=== PATIENT | female | born 1990 | race Caucasian/White ===

== ENCOUNTER 2017-08-31 04:44 | Emergency (ER) | payer BC, SELFPAY ==
[2017-08-31 04:46] VITALS: BP 154/79; PULSE 113; RESP 16; TEMP 36.8; O2SAT 97; BMI 19.1
[2017-08-31] MEDS: Ketorolac 30 MG/ML Syringe IV (05:18)
[2017-08-31] MEDS: 0.9% Normal Saline 1,000 ML 999 ML IV (05:20)
[2017-08-31] MEDS: DiphenhydrAMINE 50 MG/ML Syringe IV (05:21)
--- NOTE | 2017-08-31 06:13 | ED.VISSUMM ---
- ER Visit Summary Date of Service: 08/31/17 Chief Complaint: [] Presents with a headache History of Present Illness: The patient is a 27 F dense with a migraine headache for the last 3 weeks. Gradual onset continuous. She says similar prior migraines. Is in the frontal left parietal region. Occasionally associated with vomiting. She has photophobia and phonophobia. She saw her neurologist 2 days ago that put her on a prednisone taper. She takes an oral triptan. She is on ibuprofen Tylenol Phenergan and Zofran. She also takes Topamax verapamil and magnesium. She had a normal CT of her head at the end of July 2 weeks ago. Her last MRI was in January 2017 and was normal. Physical Examination: Vital signs reviewed General: Well-nourished well-developed Head: Normocephalic atraumatic Eyes: Pupils equal round and reactive to light extraocular movements intact ENT: TMs clear no hemotympanum no trauma Neck: Nontender full range of motion Cardiovascular: Regular rate rhythm no murmurs normal S1-S2 Respiratory: No distress clear to auscultation bilaterally chest nontender Abdomen: Soft nontender nondistended normal bowel sounds no masses Back: Nontender no CVA tenderness Extremities: Nontender active range of motion ?4 extremities no trauma Skin: Normal color no trauma Neuro alert oriented cranial nerves II through XII intact normal strength sensation reflexes Test Results: [] Emergency Department Course and Treatment: [] Given IV fluids, Toradol, Benadryl and Phenergan. Given dose of morphine as well. At this time patient has acute on chronic migraine headache. She will continue her home treatment and follow-up as an outpatient. Significantly better after treatment Treatment Plan: [] Disposition: [] Impression: [] Migraine headache This note was generated with [email or web address].comation software. It may contain incorrect words, spelling, and punctuation that were not noted in review of the chart prior to signing ED Disposition - Plan for ED Patient: Disposition: Home or Assisted Living Chief Complaint: Headache Instructions: ED Headache Migraine Referrals: Carrie Stern [Primary Care Provider] -
[2017-08-31 07:11] VITALS: BP 155/90; PULSE 86; RESP 20; O2SAT 96
--- NOTE | 2017-08-31 07:13 | ED.RN ---
PT VOICED THAT SHE WAS NOT PLEASED WITH HER CARE AND FELT THAT SHE DID NOT GET THE TREATMENT SHE WANTED.PT STATED THAT SHE HAD WANTED THE DOCTOR TO SEND HER HOME WITH MEDICATIONS AND HE WOULD NOT.PT FEELS SHE WILL BE BACK TO ANOTHER EMERGENCY ROOM BECAUSE HER NEUROLOGIST WILL SEND HER THERE AND NOT ORDER ANY MED FOR HER.PT RE-ITERATED THAT SHE WANTS TO TALK TO SOMEONE ABOUT HER CARE.JOSEY ESQUIVEL CHARGE NURSE WENT IN TO SPEAK TO HER.
--- NOTE | 2017-08-31 07:30 | ED.RN ---
pt upset because the dr wouldnt give her anything to go home with for pain. pt is sitting in the chair talking and texting on her phone. 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 pt was offered more phenergan if she was out at home. pt refused and said that phenergan is for nausea not migraines and the dr is a dumbass. pt has oxyir and phenergan at home
== END 2017-08-31 07:35 | disposition home or self-care (01) ==
PROVIDERS: Emergency Provider Emergency Medicine; Family Provider Family Medicine; PCP Family Medicine
DX: G43.909 Migraine, unspecified, not intractable, without status migrainosus (principal); Z79.899 Other long term (current) drug therapy; Z79.891 Long term (current) use of opiate analgesic
CPT/HCPCS: 96361; 96374; 96375; 99285; J7030; A4216

== ENCOUNTER 2017-12-31 17:22 | Emergency (ER) | payer BC, SELFPAY ==
[2017-12-31 17:23] VITALS: BP 132/82; PULSE 120; RESP 18; TEMP 36.9; O2SAT 95; BMI 44.9
--- NOTE | 2017-12-31 18:23 | ED.DCSUM_ITS ---
- ER Visit Summary Date of Service: 12/31/17 Chief Complaint: Headache History of Present Illness: The patient is a 27 F presenting with migraine headache ?10 days. This is similar to her previous migraine headaches. She is on preventative medicine per her neurologist as well as dihydroergotamine, Phenergan, Zanaflex. She states she is limited on the dihydroergotamine per week. She has reached her limit and is now taking aspirin and Tylenol. She has nausea and vomiting. She has photophobia. No recent injury. Denies fever or neck pain. Denies other complaints. Physical Examination: Vitals are stable. Patient is afebrile. Alert no acute distress. HEENT exam is unremarkable. Neck is supple. No meningismus Lungs are clear and equal bilaterally. Heart is regular rate and rhythm. Abdomen is soft nontender nondistended. Extremities are unremarkable. Skin is warm and dry. No focal neurologic deficit. Remainder of exam is unremarkable. Emergency Department Course and Treatment: Patient is given Toradol, Compazine, Benadryl. She had some improvement but continues to complain of pain. She is given morphine, Phenergan with improvement. She is resting comfortably in the emergency department. She will follow-up with her neurologist. She is advised to return to ED for worsening complaints. Disposition: Discharge home Impression: Migraine headache This note was generated with [employer] dictation software. It may contain incorrect words, spelling, and punctuation that were not noted in review of the chart prior to signing ED Disposition - Plan for ED Patient: Chief Complaint: Headache Referrals: [facility] Doctor,Out of [Primary Care Provider] -
[2017-12-31] MEDS: 0.9% Normal Saline 1,000 ML 999 ML IV (18:49)
[2017-12-31] MEDS: Ketorolac 30 MG/ML Syringe IV (18:49)
[2017-12-31] MEDS: proCHLORPERazine 10 MG/2 ML Vial IV (18:49)
[2017-12-31] MEDS: DiphenhydrAMINE 50 MG/ML Syringe IV (18:49)
[2017-12-31] MEDS: proMETHazine 25 MG/ML Syringe 6.25 MG IV (20:14)
[2017-12-31] MEDS: Morphine 4 MG/ML Syringe 8 MG IV (20:15)
[2017-12-31 20:20] VITALS: BP 119/61; PULSE 93; RESP 16; O2SAT 95
--- NOTE | 2017-12-31 20:37 | ED.DEP ---
ED Disposition - Plan for ED Patient: Chief Complaint: Headache Instructions: ED Headache Migraine Referrals: [facility],Out of [Primary Care Provider] -
--- NOTE | 2017-12-31 20:41 | NURSING ---
PORT FLUSHED WITH HEPARIN AND SALINE. PORT NOT HARD TO FLUSH, PT HAS PICKING HER UP TO TAKE HER HOME.
[2017-12-31 20:42] VITALS: BP 102/67; PULSE 93; RESP 14; O2SAT 95
== END 2017-12-31 20:51 | disposition home or self-care (01) ==
LOC: ED 18:17
PROVIDERS: Emergency Provider Emergency Medicine
DX: G43.909 Migraine, unspecified, not intractable, without status migrainosus (principal); E28.2 Polycystic ovarian syndrome; Z79.899 Other long term (current) drug therapy
CPT/HCPCS: 96361; 96374; 96375; 99282; J7030; A4216

== ENCOUNTER 2018-03-18 09:05 | Emergency (ER) | payer BC, SELFPAY ==
[2018-03-18 09:05] VITALS: BP 142/76; PULSE 98; RESP 18; TEMP 36.2; O2SAT 97; BMI 43.4
--- NOTE | 2018-03-18 09:45 | ED.VISSUMM ---
- ER Visit Summary Date of Service: 03/18/18 Chief Complaint: Cephalgia History of Present Illness: The patient is a 28 F presents with gradual onset of cephalgia that started 3 days ago, no fever or chills she has photophobia. This is similar to her chronic migraines for which she is on DHE. Her DHE did not work, she took Percocet at home and also did not work. She has no vision changes no fever chills no neck pain or stiffness. She is no other symptoms that are different from her chronic recurrent migraines. Physical Examination: Me she appears in mild distress. She is quite conversive. Moist mucous membranes, no obvious facial deformity No C-spine tenderness supple neck. Regular rate and rhythm without any obvious murmurs Clear lungs bilaterally speaking in full sentences without any obvious respiratory distress Abdomen soft and nontender no guarding or rebound Moves all extremities without any difficulty or pain. Skin does not show any obvious rashes or lesions, no trauma. Alert oriented ?3 with no gross focal deficit. She is able to ambulate. Moves her eyes in all actions without any pain. Emergency Department Course and Treatment: Patient was treated with multiple medications however eventually she improved she is ready for discharge. This is gradual onset chronic and recurrent with no new symptoms no imaging is needed. Impression: Cephalgia This note was generated with [employer] dictation software. It may contain incorrect words, spelling, and punctuation that were not noted in review of the chart prior to signing ED Disposition - Plan for ED Patient: Disposition: Home or Assisted Living Chief Complaint: Headache Instructions: ED Cephalgia Unspecified Referrals: Care Physician,No Primary [Primary Care Provider] - 3-5 Days
[2018-03-18] MEDS: Metoclopramide 10 MG/2 ML Vial IV (10:13)
[2018-03-18] MEDS: DiphenhydrAMINE 50 MG/ML Syringe IV (10:13)
[2018-03-18] MEDS: 0.9% Normal Saline 1,000 ML 999 ML IV (10:13)
[2018-03-18] MEDS: Ketorolac 30 MG/ML Syringe IV (10:13)
[2018-03-18] MEDS: Orphenadrine 60 MG/2 ML Ampul IV (11:29)
[2018-03-18 11:55] VITALS: BP 118/84; PULSE 68; RESP 15; O2SAT 99
[2018-03-18 14:04] VITALS: BP 131/84; PULSE 665; RESP 16; O2SAT 98
== END 2018-03-18 14:05 | disposition home or self-care (01) ==
PROVIDERS: Emergency Provider Emergency Medicine
DX: R51 Headache (principal); E28.2 Polycystic ovarian syndrome; Z86.711 Personal history of pulmonary embolism; Z79.02 Long term (current) use of antithrombotics/antiplatelets; Z79.891 Long term (current) use of opiate analgesic; Z79.899 Other long term (current) drug therapy
CPT/HCPCS: 96361; 96374; 96375; 99282; J7030; A4216

== ENCOUNTER 2018-03-23 11:01 | Emergency (ER) | payer BC, SELFPAY ==
[2018-03-23 11:03] VITALS: BP 131/87; PULSE 105; RESP 16; TEMP 36.9; O2SAT 98; BMI 43.4
--- NOTE | 2018-03-23 11:37 | ED.VISSUMM ---
- ER Visit Summary Date of Service: 03/23/18 Chief Complaint: [] Acute recurrent migraine headache history of same for years History of Present Illness: The patient is a 28 F [] long history of migraine headache she has been sick currently seen and managed by the [facility] neurologists, she is on DHE and home Percocet. She reports she used her DHE maximized her daily dose then began taking Percocet had no improvement her headache and she came into the emergency department. She was seen a few days ago in the emergency department for the same treated with IV medicines and discharged home. She indicates she believes she receives Benadryl Compazine and Toradol and ketamine. She indicates her home regimen has been refractory and generally ineffective, her neurologist at [facility] aware of the above and they are trying to get her placed on a new medication and they are waiting approval. She had extensive prior evaluation for these headaches including multiple brain imaging scans including MRIs at one point time she was told she might have MS that workup is still in place she has not yet had a lumbar puncture that is pending all the MRIs she has had showed nothing acute, no history of pseudotumor brain tumor or brain aneurysm and again she has had these headaches for years. She has had no fever no cough no other constitutional issues no other exacerbating factors She assures me this is her chronic headache syndrome, and the headache that she has now really she has had on and off for weeks she reports partial improvement with a headache when she was seen in the emergency department the other day and that is not uncommon for her to only received partial relief from any type of treatment she is prescribed including those that she gets from the emergency department. Physical Examination: [] Is resting comfortably in the bed her vital signs unremarkable she has a short stature her BMI is about 45 I questioned her about something like pseudotumor she indicates again her workup is being done by the [facility] neurologists and she does not have that diagnosis, her HEENT exam is unremarkable her neck is very supple her lungs are clear the heart tones are normal abdomen soft nontender she is awake alert moving all 4 extremities there is no neurologic abnormalities her mental status is normal Test Results: [] This is a chronic relapsing condition, current symptoms are identical to what she has had in the past and no new symptoms, and she has had an extensive prior evaluation 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 She has had long history of migraine headache syndrome she has had extensive evaluation by neurology specialist at [facility], the DHE and home Percocet regimen has limited effectiveness her physicians are aware of the above and they are trying to get her on a new medicine. I have explained to her we could initiate through her port Benadryl Compazine and Toradol but that ketamine was generally not prescribed for this condition through the emergency department instead she will receive 4 mg of morphine. Further explained to her that given that she is under the care of specialist to have a full armamentarium of medications and none of these are working and they are trying to get her on some new meds and only available to them, that it is hard to further manage her pain through the emergency department and that she should anticipate receiving her chronic headache pain management from her outpatient providers, and not the emergency department based on current regulations for chronic pain management I have further explained to her that she should not expect to receive ketamine for her chronic headache condition from the emergency department and that she should discuss her outpatient headache management with her specialists to develop a plan that is effective for her, and she will follow-up with them She was quite upset that I would not prescribe the ketamine I again explained everything as above and she basically was still upset. Treatment Plan: [] Disposition: [] Home stable Impression: [] Acute recurrent chronic headache syndrome This note was generated with [employer] dictation software. It may contain incorrect words, spelling, and punctuation that were not noted in review of the chart prior to signing ED Disposition - Plan for ED Patient: Disposition: Home or Assisted Living Chief Complaint: Headache Instructions: ED Cephalgia Unspecified Referrals: NOT,DEFINED [NON-STAFF] - Additional Instructions: Follow-up with your [facility] specialists for further outpatient headache management
--- NOTE | 2018-03-23 11:43 | ED.DCSUM_ITS ---
- ER Visit Summary Date of Service: 03/23/18 Chief Complaint: [] Acute recurrent migraine headache history of same for years History of Present Illness: The patient is a 28 F [] long history of migraine headache she has been sick currently seen and managed by the [facility] neurologists, she is on DHE and home Percocet. She reports she used her DHE maximized her daily dose then began taking Percocet had no improvement her headache and she came into the emergency department. She was seen a few days ago in the emergency department for the same treated with IV medicines and discharged home. She indicates she believes she receives Benadryl Compazine and Toradol and ketamine. She indicates her home regimen has been refractory and generally ineffective, her neurologist at [facility] aware of the above and they are trying to get her placed on a new medication and they are waiting approval. She had extensive prior evaluation for these headaches including multiple brain imaging scans including MRIs at one point time she was told she might have MS that workup is still in place she has not yet had a lumbar puncture that is pending all the MRIs she has had showed nothing acute, no history of pseudotumor brain tumor or brain aneurysm and again she has had these headaches for years. She has had no fever no cough no other constitutional issues no other exacerbating factors She assures me this is her chronic headache syndrome, and the headache that she has now really she has had on and off for weeks she reports partial improvement with a headache when she was seen in the emergency department the other day and that is not uncommon for her to only received partial relief from any type of treatment she is prescribed including those that she gets from the emergency department. Physical Examination: [] Is resting comfortably in the bed her vital signs unremarkable she has a short stature her BMI is about 45 I questioned her about something like pseudotumor she indicates again her workup is being done by the [facility] neurologists and she does not have that diagnosis, her HEENT exam is unremarkable her neck is very supple her lungs are clear the heart tones are normal abdomen soft nontender she is awake alert moving all 4 extremities there is no neurologic abnormalities her mental status is normal Test Results: [] This is a chronic relapsing condition, current symptoms are identical to what she has had in the past and no new symptoms, and she has had an extensive prior evaluation 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 She has had long history of migraine headache syndrome she has had extensive evaluation by neurology specialist at [facility], the DHE and home Percocet regimen has limited effectiveness her physicians are aware of the above and they are trying to get her on a new medicine. I have explained to her we could initiate through her port Benadryl Compazine and Toradol but that ketamine was generally not prescribed for this condition through the emergency department instead she will receive 4 mg of morphine. Further explained to her that given that she is under the care of specialist to have a full armamentarium of medications and none of these are working and they are trying to get her on some new meds and only available to them, that it is hard to further manage her pain through the emergency department and that she should anticipate receiving her chronic headache pain management from her outpatient providers, and not the emergency department based on current regulations for chronic pain management I have further explained to her that she should not expect to receive ketamine for her chronic headache condition from the emergency department and that she should discuss her outpatient headache management with her specialists to develop a plan that is effective for her, and she will follow-up with them She was quite upset that I would not prescribe the ketamine I again explained everything as above and she basically was still upset. Treatment Plan: [] Disposition: [] Home stable Impression: [] Acute recurrent chronic headache syndrome This note was generated with [employer] dictation software. It may contain incorrect words, spelling, and punctuation that were not noted in review of the chart prior to signing ED Disposition - Plan for ED Patient: Disposition: Home or Assisted Living Chief Complaint: Headache Instructions: ED Cephalgia Unspecified Referrals: NOT,DEFINED [NON-STAFF] - Additional Instructions: Follow-up with your [facility] specialists for further outpatient headache management
--- NOTE | 2018-03-23 11:43 | ED.DEP ---
ED Disposition - Plan for ED Patient: Chief Complaint: Headache Instructions: ED Cephalgia Unspecified Referrals: NOT,DEFINED [Primary Care Provider] - Additional Instructions: Follow-up with your [facility] specialists for further outpatient headache management
[2018-03-23] MEDS: 0.9% Normal Saline 1,000 ML 999 ML IV (12:48)
[2018-03-23] MEDS: Ketorolac 30 MG/ML Syringe IV (12:49)
[2018-03-23] MEDS: proCHLORPERazine 10 MG/2 ML Vial IV (12:49)
[2018-03-23] MEDS: DiphenhydrAMINE 50 MG/ML Syringe IV (12:50)
--- NOTE | 2018-03-23 13:32 | ED.RN ---
THIS RN IN TO DISCHARGE PT, PT NOT IN ROOM, PORT ACCESS NEEDLE AND TEGADERM DRESSING ON BED INTACT.
--- NOTE | 2018-03-23 14:16 | ED.RN ---
PT CAME TO TRIAGE DESK STATING SHE WAS NOT HAPPY WITH VISIT. CONTACTED TIERA BROTHERS RN TO SPEAK TO PT.
== END 2018-03-23 13:34 | disposition home or self-care (01) ==
LOC: ED 12:16
PROVIDERS: Emergency Provider Emergency Medicine
DX: G43.909 Migraine, unspecified, not intractable, without status migrainosus (principal); Z79.02 Long term (current) use of antithrombotics/antiplatelets; Z79.891 Long term (current) use of opiate analgesic; Z79.899 Other long term (current) drug therapy
CPT/HCPCS: 36591; 96361; 96374; 96375; 99282; J7030; A4216

== ENCOUNTER 2018-03-24 15:01 | Emergency (ER) | payer BC, SELFPAY ==
[2018-03-24 15:01] VITALS: BP 134/25; PULSE 112; RESP 16; TEMP 36.3; O2SAT 95; BMI 46.4
[2018-03-24] MEDS: DiphenhydrAMINE 50 MG/ML Syringe IV (17:06)
[2018-03-24] MEDS: Metoclopramide 10 MG/2 ML Vial IV (17:07)
[2018-03-24] MEDS: Ketorolac 30 MG/ML Syringe IV (17:07)
--- NOTE | 2018-03-24 17:07 | ED.DCSUM_ITS ---
- ER Visit Summary Date of Service: 03/24/18 Chief Complaint: Headache History of Present Illness: The patient is a 28 F [address] goes to [facility]. She has sees a neurologist there for migraines. She reports that she has a migraine that began 7 days ago. Is gradually gotten worse. Similar to her prior headaches. It is a sharp, throbbing pain that is left forehead with radiation posteriorly. Is 10 out of 10 worsening a 10 currently. Is worsened by movement of her head. She is taking DHE, Percocet, aspirin, and Phenergan without relief. She has been nauseated and had dry heaves. She complains of photophobia and phonophobia. She denies any recent trauma to her head. She reports that she had a CT of her head 1 week ago. Patient denies any fever or chills. No numbness or weakness. Physical Examination: Vitals: Stable. Afebrile. General: Well-nourished and well-developed. Head: Normocephalic atraumatic. Neck: Supple, no lymphadenopathy. No JVD. Nontender. Cardiovascular: Regular rate and rhythm. No murmurs. Respiratory: No respiratory distress. Clear to auscultation bilaterally. Abdominal: Soft, nontender, nondistended, normal bowel sounds. No guarding, rebound, or peritoneal signs. Back: Nontender. Extremities: Nontender, no edema. Skin: Normal color, no rash. Neurologic: Alert and oriented ?3. Cranial nerves II through XII are intact. Normal strength and sensation. Psych: Normal affect. Emergency Department Course and Treatment: Patient had an IV placed. She was given a liter of normal saline. She was given Benadryl, Reglan, Toradol, Solu- Medrol, and Depakote IV. Treatment Plan: Patient will be discharged instructions to follow-up with her neurologist in 1-2 days if not improving. Disposition: To home in improved and stable condition. Impression: 1. Migraine headache. This note was generated with [employer] software. It may contain incorrect words, spelling, and punctuation that were not noted in review of the chart prior to signing ED Disposition - Plan for ED Patient: Chief Complaint: Headache Instructions: ED Headache Migraine Referrals: Doctor,Your [STAFF PHYSICIAN] - 1-2 Days if not improving
[2018-03-24] MEDS: 0.9% Normal Saline 1,000 ML 999 ML IV (17:08)
[2018-03-24 18:13] VITALS: PULSE 110; RESP 17; O2SAT 95
== END 2018-03-24 18:14 | disposition home or self-care (01) ==
LOC: ED 16:07
PROVIDERS: Emergency Provider Emergency Medicine
DX: G43.909 Migraine, unspecified, not intractable, without status migrainosus (principal); E28.2 Polycystic ovarian syndrome; F43.10 Post-traumatic stress disorder, unspecified; Z86.711 Personal history of pulmonary embolism; Z79.02 Long term (current) use of antithrombotics/antiplatelets; Z79.891 Long term (current) use of opiate analgesic; Z79.899 Other long term (current) drug therapy
CPT/HCPCS: 96365; 96375; 99282; J7030; A4216; J2930

== ENCOUNTER 2018-05-09 13:28 | Emergency (ER) | payer BC, SELFPAY ==
[2018-05-09 13:30] VITALS: BP 134/76; PULSE 117; RESP 18; TEMP 36.6; O2SAT 97; BMI 48.0
--- NOTE | 2018-05-09 14:01 | EKG12_ITS ---
Test Reason : CP Blood Pressure : / mmHG Vent. Rate : 116 BPM Atrial Rate : 116 BPM P-R Int : 160 ms QRS Dur : 086 ms QT Int : 318 ms P-R-T Axes : 040 016 009 degrees QTc Int : 442 ms Sinus tachycardia Minimal voltage criteria for LVH, may be normal variant Borderline ECG Confirmed by LIZ ALBARRAN ([id number]), assistant film editor RAMSES BEST ([id number]) on 05/13/2018 8:41:03 AM Referred By: AZRA/RG Confirmed By:LIZ ALBARRAN
--- NOTE | 2018-05-09 14:01 | CT_ITS ---
STUDY: CTA CHEST REASON FOR EXAM: Female, 28 years old. Chest pain and headache. Previous PE. Anticoagulated patient. RADIATION DOSAGE (If Supplied By Facility): CTDIvol = ( 16.72 ) mGy, DLP = ( 660.50 ) mGycm TECHNIQUE: The examination was performed with the intravenous administration of 100mL ml of Isovue 370 contrast material. Post-processing of the angiographic images was performed, with multiplanar reformation and 3D reconstruction. Individualized dose optimization techniques were used for this CT. COMPARISON: None. FINDINGS: There is limited enhancement of the main pulmonary artery and right and left pulmonary arteries. There is limited enhancement of the bilateral peripheral pulmonary arteries. There is no definite central or major pulmonary emboli, but small or peripheral pulmonary emboli cannot be excluded because of the suboptimal contrast bolus. Also without prior studies, it would be impossible to differentiate between acute versus incompletely resolved previous PE. Normal thoracic aorta and visualized great vessels. There is no demonstrated aortic dissection. Normal heart and pericardium. Normal mediastinum. Normal hilar regions. Normal visualized trachea and bronchi. The lungs are under expanded. Normal pulmonary parenchyma. Normal pleura. Normal chest wall structures. Normal osseous structures. There is diffuse fatty infiltration of the liver. CT/CTA Chest W/WO Contrast IMPRESSION: Exam limited because of suboptimal contrast bolus, see comments above. No gross central or major pulmonary emboli are seen but cannot exclude small peripheral pulmonary emboli. Electronically Signed: Francesco Najera MD at 16:30 EDT , Service support ,
[2018-05-09 14:47] LABS: Absolute Lymphocyte Count 1.96 X10^3/ul (0.83-4.51); Absolute Neutrophil Count 4.3 X10^3/uL (2.0-7.7); Basophil# 0.02 X10^3/uL; Basophil% 0.3 % (0-1); Eosinophil# 0.08 X10^3/uL; Eosinophils% 1.2 % (0-5); Hematocrit 30.3 % (37-47); Hemoglobin 9.3 g/dl (12.0-15.0); Lymphocyte # 1.96 X10^3/ul (4.0); Lymphocyte % 28.9 % (19-41); Mean Corp Hgb Conc 30.7 g/gl (32-36); Mean Corpuscular Volume 78.3 fL (81-99); Mean Platelet Vol. 8.8 fl (6.2-12.0); Monocyte# 0.42 X10^3/uL; Monocyte% 6.2 % (0-10); Neutrophil # 4.28 X10^3/uL (2.7-7.7); Platelet Count 328 K/mm3 (150-450); RBC Distribution Width CV 18.2 % (11.6-14.6); RBC Distribution Width SD 49.3 fl (35.1-43.9); Red Blood Count 3.87 M/mm3 (4.2-5.4); White Blood Count 6.8 K/mm3 (4.4-11.0)
[2018-05-09 14:48] LABS: POSITIVE COUNT NO; POSITIVE DIFFERENTIAL NO; POSITIVE MORPHOLOGY NO
[2018-05-09] MEDS: Ondansetron 4 MG/2 ML Vial IV (14:48)
[2018-05-09 15:04] LABS: Anion Gap 8 (5-15); BUN 13 mg/dL (7-18); Calcium,Total 8.6 mg/dL (8.5-10.1); Chloride 109 mmol/L (98-107); Creatinine, Serum 0.68 mg/dL (0.55-1.02); EST Glomerular Filtration Rate 110 mL/min (>60); Est Glom Filt Rate - Afr Amer 133 mL/min (>60); Glucose 157 mg/dL (74-106); Potassium 3.9 mmol/L (3.5-5.1); Sodium Level 140 mmol/L (136-145)
[2018-05-09] MEDS: DiphenhydrAMINE 50 MG/ML Syringe 25 MG IV (15:20)
[2018-05-09] MEDS: proCHLORPERazine 10 MG/2 ML Vial IV (15:21)
--- NOTE | 2018-05-09 15:54 | ED.VISSUMM ---
- ER Visit Summary Date of Service: 05/09/18 Chief Complaint: Chest pain History of Present Illness: The patient is a 28 F presenting for evaluation secondary chest pain. Patient reports that she has a history of pulmonary embolism and is typically supposed to be on Eliquis. She also has a history of chronic headaches, and sees a neurologist. Patient reports that about a week ago her neurologist told her to go off of her Eliquis so that she can get a lumbar puncture, but she never actually got the lumbar puncture. Patient states that since this morning about 730 she has had sharp chest pain that feels somewhat similar to when she has had pulmonary emboli in the past. She has exertional dyspnea. She denies any hemoptysis. Patient also endorses that she has a headache consistent with her chronic headaches. Physical Examination: Vital signs are remarkable for tachycardia with a rate of 117, patient is afebrile. General: Patient is well-nourished well-developed and in no acute distress. Head: Normocephalic, atraumatic Eyes: Pupils equal round and reactive bilaterally, extra occular motion intact bialterally ENT: Moist mucous membranes Neck: Supple, no lymphadenopathy, no JVD, no meningismus CVS: Heart regular rhythm with tachycardia, no murmurs, rubs or gallops, radial pulses 2+ bilaterally Resp: Respirations nondistressed, lung sounds clear bilaterally Abdomen: Soft, nontender, nondistended, no palpable masses, normal bowel sounds Back: Nontender Extremities: Nontender, atraumatic, active full range of motion, no peripheral edema Skin: warm, no rashes, no petechia Neuro: Alert and oriented x 4, CN 2-12 intact, no lateralizing neurological defecits Psyc: Normal affect Test Results: CBC chemistry and troponin are unremarkable. EKG shows sinus tachycardia with a rate of [address] segments and normal T waves. No evidence of right ventricular strain. Emergency Department Course and Treatment: Patient presented for evaluation secondary to chest pain and headache. Patient does have a history of PE in the past, and was recently off of her anticoagulants so there is at least some concern for the possibility of a worsening pulmonary embolism given her tachycardia and worsening pain. I do believe that there is indication for repeat imaging as if this is large enough the patient potentially would require inpatient treatment. Patient's cardiac enzymes and EKG were unremarkable. Initially the patient's pain was going to be addressed with aspirin and Tylenol. Upon ordering that the patient informed me that she took both of these prior to arrival. Patient was then offered Toradol, and she states that she cannot take that. Patient asked multiple times for pain medication for her headache and her chest pain. I addressed her multiple allergies with her as she has listed allergies to Imitrex Reglan and Compazine, and she states that she can take Compazine and Reglan if she is given Benadryl. She was given this. I reviewed the patient's prescription reporting record, and she has controlled scripts from 35 providers filled at [address] angiogram of the chest demonstrated no evidence of central pulmonary emboli. Repeat evaluation of the patient shows her to be stable, but to continue complaining about having headache. She asked me if I would be able to give her ketamine, and I told her that is not typically indicated for treatment of headaches. She informed me that her neurologist is okay with that and I told her that I was not comfortable with that. She continued to try to bargain with me for different medications, and told me that she felt no better, I informed her that I had made every attempt to alleviate her headache and that dangerous conditions were ruled out and that she did not need to remain in the emergency department at this point. This point I do not believe that the patient has significant pathology as far as her chest pain that would require further observation or admission to the hospital. Patient's headache is chronic, and she seems to have tendencies towards medication seeking behaviors. I believe that she should be discharged, and she will follow-up with her neurologist. Disposition: Discharge Impression: 1. Chest pain 2. Chronic headaches 3. Drug-seeking behavior This note was generated with SeekPanda dictation software. It may contain incorrect words, spelling, and punctuation that were not noted in review of the chart prior to signing ED Disposition - Plan for ED Patient: Disposition: Home or Assisted Living Chief Complaint: Chest Pain Diagnosis: Chronic headaches, Chest pain, Drug-seeking behavior Instructions: ED Chest Pain Atypical Unkn Cause Additional Instructions: Follow-up with your neurologist
--- NOTE | 2018-05-09 17:10 | ED.RN ---
UPON ENTERING ROOM TO DISCHARGE. PT EXPRESSED EXTREME FRUSTRATION THAT YOU GUYS DIDNT DO ANYTHING FOR ME EMOTIONAL SUPPORT OFFERED. THIS RN EXPLAINED TO PT THAT WE DID CT, BLOOD WORK AND GAVE HER MEDICATION. SHE WAS CLEARED MEDICALLY AND TOLD SHE COULD NOT HAVE ANY MORE FOR PAIN. PT TOLD THIS RN NOT TO TOUCH HER, PT EDUCATED THAT HER PORT NEEDED FLUSHED WITH HEPARIN AND D/C'D APPROPRIATELY. PT THEN PRECEDED TO RIP OUT OWN PORT WITHOUT FLUSH. PT REFUSED VITALS. THREW DISCHARGE INSTRUCTIONS IN TRASH.
== END 2018-05-09 17:15 | disposition home or self-care (01) ==
PROVIDERS: Emergency Provider Emergency Medicine
DX: R07.9 Chest pain, unspecified (principal); R51 Headache; E66.9 Obesity, unspecified; Z76.5 Malingerer [conscious simulation]; Z86.711 Personal history of pulmonary embolism
CPT/HCPCS: 36591; 71275; 80048; 84484; 85025; 93005; 96374; 96375; 99284; J7030; Q9967; A4216; J2405

== ENCOUNTER 2018-09-10 15:46 | Emergency (ER) | payer BC, SELFPAY ==
[2018-09-10 15:49] VITALS: BP 152/85; PULSE 135; RESP 18; TEMP 37; O2SAT 99; BMI 40.9
--- NOTE | 2018-09-10 16:55 | ED.RN ---
PT VERBALIZES TO THIS NURSE, THAT SHE IS UNWILLING TO TAKE REGLAN WITHOUT BENADRYL 50 MG, AND SINCE DR SALAZAR SAID HE WASN'T GIVING ME THAT MUCH, THEN I DON'T WANT THE REGLAN. AND I ALREADY KNOW THAT TORADOL WON'T WORK. DR SALAZAR NOTIFIED.
--- NOTE | 2018-09-10 17:00 | ED.RN ---
DISCUSSED WITH DR SALAZAR, PT'S HISTORY OF DEACCESSING OWN PORT WHEN SHE DOES NOT GET MEDICATION THAT SHE REQUESTS, THEN LEAVES. DR SALAZAR STS TO INVOLVE SOCIAL WORK FOR A POSSIBLE CARE PLAN. THA, PLATE PREPARER NOTIFIED, AND WILL SEE PT REQUESTED/ORDERED.
--- NOTE | 2018-09-10 17:10 | CM.ED ---
SOCIAL WORK NOTE UPDATED BY NURSING, DR. SALAZAR RECOMMENDING CARE PLAN. PT WITH CHRONIC HEADACHES AND NURSING VOICING CONCERNS WITH PT'S BEHAVIOR UPON LAST VISIT. PT DE-ACCESSED OWN PORT. PT RECOMMENDING CERTAIN MEDICATIONS AND DOSAGES FOR TREATMENT OF MIGRAINE. THIS WORKER TO FOLLOW UP WITH PT. JANEEN HUFF, FORENSIC ACCOUNTANT, MEAT SCRUBBER.
--- NOTE | 2018-09-10 17:15 | ED.RN ---
THA, MANAGER TRUST AT BEDSIDE AT THIS TIME.
--- NOTE | 2018-09-10 17:15 | CM.ED ---
SOCIAL WORK NOTE MET WITH PT IN ROOM. UPON ENTERING ROOM PT SITTING UP IN BED. INTRODUCED THIS WORKER'S ROLE. PT STATED, I DON'T KNOW WHY THEY SENT YOU IN HERE. PT VISIBLY UPSET. EXPLAINED REASON FOR REFERRAL AND ATTEMPTED TO DISCUSS PLAN OF CARE AND CONCERNS FROM PREVIOUS VISIT WITH PT DE-ACCESSING PORT. PT BECAME ANGRY WITH THIS WORKER. PT STATES I TOLD THEM I HAVE AN INTOLERANCE TO REGLAN UNLESS IT IS GIVEN WITH 50MG OF BENADRYL. PT REPORTS FRUSTRATION WITH ED VISIT. ATTEMPTED TO COMPLETE FULL SOCIAL SERVICE ASSESSMENT WITH PT IN WHICH PT DID NOT WISH TO ANSWER QUESTIONS AND REPORTED SHE WAS LEAVING. OFFERED TO HAVE NURSE COME TO ROOM. PT STATES, I'M LEAVING. PT GETTING OUT OF BED TO GET DRESSED AT THIS TIME. THIS WORKER UPDATED NURSING AND DR. SALAZAR. JANEEN HUFF, WOODENWARE ASSEMBLER, EMERGENCY VEHICLE OPERATIONS INSTRUCTOR.
--- NOTE | 2018-09-10 17:20 | ED.RN ---
THA, CANDLE MAKING SUPERVISOR VERBALIZED TO THIS NURSE, PT UPSET WITH HAVING A CASE MANAGMENT CONSULT, REPORTED TO THA THAT SHE IS LEAVING SHE IS ANGRY FOR NOT GETTING THE REQUESTED AMOUNT OF BENADRYL THAT SHE WANTS AND THE FACT THAT THEY SENT YOU IN HERE TO TALK TO ME
--- NOTE | 2018-09-10 17:24 | ED.RN ---
PT DRESSED SELF, AND LEFT WITHOUT TREATMENT.
--- NOTE | 2018-09-10 17:34 | ED.DCSUM_ITS ---
- ER Visit Summary Date of Service: 09/10/18 Chief Complaint: Headache times 13 days History of Present Illness: The patient is a 28 F who states her dropped her off. She has a 4 and 2-year-old at home. She states she was seen yesterday at [facility]. She reports she was treated with Benadryl, Reglan and Toradol. She informed me that she has a sensitivity to Reglan. She also informed me that she contacted her neurologist who recommended she go to the emergency room because they have nothing further to offer her at this time. She states she is compliant with her medication. She denies fever, chills night sweats. Denies weight gain or weight loss. She denies neck stiffness or pain. She reports photophobia, sonophobia. She states the headache is on the right side. She denies ringing or ears or decreased hearing. She denies paresthesia, anesthesia motors. She did report scintillating scotoma right eye and blurred vision right eye. She has no history of ocular migraine. She denies cardiac or respiratory symptoms. She denies urologic symptoms. There is no history of trauma. She denies rash or skin lesions. She states she is compliant with her medication. She was informed that would reassess after medication was given. Physical Examination: Vital signs noted. BMI 40.9. Head is atraumatic normocephalic. Pupils are equal round reactive. Extraocular muscles are intact. Funduscopic exam reveals normal cup-to-disc ratio. There is no papilledema. Venous pulsations were noted bilaterally. There is no evidence of photophobia. TMs are pearly white with landmarks noted. Nares patent with no drainage. Posterior pharynx without erythema or exudate. Uvula is midline. There is no dysphonia or dysphasia. Trachea is midline. There is no stridor with auscultation of the neck. Neck is supple. Trachea is midline. There is no stridor. Heart is regular without murmur, gallop or rub. S1 and S2 are normal. Lungs are clear to auscultation with good movement of air bilaterally. Abdomen soft nontender. Bowel sounds present normal. Patient is alert and oriented ?3. Motor is 5 over 5. Sensory is intact. DTRs are symmetric with no clonus or Babinski sign. Cranial 2 through 12 are intact. Cerebellar testing is normal. Gait was observed and normal. Test Results: None were obtained Emergency Department Course and Treatment: IV was established/port was accessed by nurse. Patient was ordered 25 mg of Benadryl to be administered 15-30 minutes prior to 10 mg of Reglan and 50 mL Toradol. Patient was upset that she did not receive 50 mg of Benadryl IV push. She would not allow nurse to access port. Based on review of prior records case management was consulted to discuss care plan. Treatment Plan: Patient would not allow the nurse to access support and give medication. I was informed that she left. Disposition: Patient left prior to administration of medication Impression: History of migraine headaches with reported right-sided headache and visual disturbance right (the ocular migraine) This note was generated with RewardSnap dictation software. It may contain incorrect words, spelling, and punctuation that were not noted in review of the chart prior to signing ED Disposition - Plan for ED Patient: Disposition: Home or Assisted Living Instructions: ED Headache Migraine Referrals: Barbara Lopez NP-C [Primary Care Provider] -
== END 2018-09-10 17:24 | disposition left against medical advice (07) ==
PROVIDERS: Emergency Provider Emergency Medicine; Family Provider Nurse Practitioner Family; PCP Nurse Practitioner Family
DX: G43.B0 Ophthalmoplegic migraine, not intractable (principal); E66.9 Obesity, unspecified; Z68.41 Body mass index [BMI] 40.0-44.9, adult; F32.9 Major depressive disorder, single episode, unspecified; Z79.899 Other long term (current) drug therapy
CPT/HCPCS: 99281; J7040

== ENCOUNTER 2018-10-16 00:39 | Emergency (ER) | payer MEDICAID, SELFPAY ==
[2018-10-16 00:40] VITALS: BP 181/105; PULSE 124; RESP 17; TEMP 36.8; O2SAT 95; BMI 48.7
--- NOTE | 2018-10-16 00:53 | CT_ITS ---
We are attempting to reach Wai Finley MD to discuss findings. An addendum with communication details will be sent when the communication is complete. STUDY: CTA CHEST REASON FOR EXAM: Female, 28 years old. Chest pain RADIATION DOSAGE (If Supplied By Facility): CTDIvol = ( 21.43 ) mGy, DLP = ( 626.79 ) mGycm TECHNIQUE: The examination was performed with the intravenous administration of 100ML IV Isovue 370. Post-processing of the angiographic images was performed, with multiplanar reformation and 3D reconstruction. Individualized dose optimization techniques were used for this CT. COMPARISON: None. FINDINGS: Left chest port with tip in the superior cavoatrial junction. Right lower lobe segmental to subsegmental pulmonary embolism. Normal thoracic aorta and visualized great vessels. There is no demonstrated aortic dissection. Normal heart and pericardium. Normal mediastinum. Normal hilar regions. Normal visualized trachea and bronchi. The lungs are well expanded. Normal pulmonary parenchyma. Normal pleura. Normal chest wall structures. Normal osseous structures. Splenomegaly. Hepatic steatosis. CT/CTA Chest W/WO Contrast IMPRESSION: Right lower lobe segmental to subsegmental pulmonary embolism. No evidence of right heart strain. Hepatomegaly. Hepatic steatosis. Electronically Signed: Mario Headley, at 3:14 EDT Tel , Service support ,
--- NOTE | 2018-10-16 00:54 | EKG12_ITS ---
Test Reason : CP Blood Pressure : / mmHG Vent. Rate : 116 BPM Atrial Rate : 116 BPM P-R Int : 174 ms QRS Dur : 084 ms QT Int : 310 ms P-R-T Axes : 056 031 005 degrees QTc Int : 430 ms Sinus tachycardia Nonspecific T wave abnormality Abnormal ECG Confirmed by CLEO HOLLIS, ROSE ([id number]), editor magazine ADRIANNA DOZIER ([id number]) on 10/17/2018 11:02:03 AM Referred By: SASHA Confirmed By:ROSE GALLO MD
[2018-10-16] MEDS: Ondansetron 4 MG/2 ML Vial IV (01:32)
[2018-10-16] MEDS: Morphine 4 MG/ML Syringe IV ×2 (01:33→03:54)
[2018-10-16 02:17] LABS: Absolute Lymphocyte Count 1.59 X10^3/ul (0.83-4.51); Absolute Neutrophil Count 4.8 X10^3/uL (2.0-7.7); Basophil# 0.01 X10^3/uL; Basophil% 0.1 % (0-1); Hematocrit 31.1 % (37-47); Lymphocyte # 1.59 X10^3/ul (4.0); Lymphocyte % 22.7 % (19-41); Mean Corp Hgb Conc 32.2 g/gl (32-36); Mean Corpuscular Hgb 25.5 pg (27.0-32.0); Mean Corpuscular Volume 79.3 fL (81-99); Mean Platelet Vol. 8.4 fl (6.2-12.0); Monocyte# 0.58 X10^3/uL; Monocyte% 8.3 % (0-10); Neutrophil % 68.8 % (47-70); Platelet Count 346 K/mm3 (150-450); RBC Distribution Width CV 16.2 % (11.6-14.6); RBC Distribution Width SD 46.4 fl (35.1-43.9); Red Blood Count 3.92 M/mm3 (4.2-5.4)
[2018-10-16 02:42] LABS: POSITIVE COUNT NO; POSITIVE DIFFERENTIAL NO; POSITIVE MORPHOLOGY NO
[2018-10-16 02:43] LABS: Anion Gap 9 (5-15); BUN 12 mg/dL (7-18); BUN/Creat Ratio 17.1 RATIO (10-20); Calcium,Total 8.5 mg/dL (8.5-10.1); Chloride 112 mmol/L (98-107); EST Glomerular Filtration Rate 107 mL/min (>60); Est Glom Filt Rate - Afr Amer 129 mL/min (>60); Glucose 196 mg/dL (74-106); Potassium 3.8 mmol/L (3.5-5.1); Sodium Level 139 mmol/L (136-145)
[2018-10-16 03:24] VITALS: BP 155/98; PULSE 98; RESP 24; O2SAT 97
--- NOTE | 2018-10-16 03:41 | ED.DEP ---
ED Disposition - Plan for ED Patient: Instructions: Pulmonary Embolism Prescriptions: Oxycodone HCl/Acetaminophen [Percocet 5/325] 1 tab PO Q6H PRN PRN 5 Days #20 tab PRN Reason: Pain Rivaroxaban [Xarelto] 15 mg PO BID #41 tab Referrals: Barbara Lopez NP-C [Primary Care Provider] -
[2018-10-16] MEDS: Rivaroxaban 15 MG Tablet PO (03:54)
[2018-10-16] MEDS: proMETHazine 25 MG/ML Syringe 12.5 MG IV (03:54)
[2018-10-16 04:07] VITALS: BP 150/100; PULSE 94; RESP 18; O2SAT 97
--- NOTE | 2018-10-16 04:10 | ED.VISSUMM ---
- ER Visit Summary Date of Service: 10/16/18 Chief Complaint: Chest pain History of Present Illness: The patient is a 28 F who presents with chest pain. It began yesterday. She describes it as crushing. She currently rates it as 9 out of 10. She also reports associated shortness of breath and cough. She complains of nausea. Her shortness of breath is with exertion only. She was seen at [facility] a couple of hours ago and had an EKG and blood work. She did not have an x-ray or CTA. She states she came here for second opinion. She notes that she recently did have a [address] She also has a prior history of pulmonary embolism but is no longer on anticoagulation. She has been off anticoagulation since last May. Physical Examination: Heart rate 124, blood pressure 181/105. No distress Heart regular tachycardia Lungs are clear without rales rhonchi wheezes Abdomen soft nontender Extremities nontender Alert. Test Results: EKG shows sinus rhythm at a rate of 116. CBC BMP unremarkable. Troponin is less than 0.015. CTA of the chest does show a right lower lobe segmental to subsegmental pulmonary embolism without evidence of right heart strain. Emergency Department Course and Treatment: Patient was given IV morphine and Zofran here. She did require repeat dosing of IV narcotics. Given Cassius and pain requiring multiple doses of IV opiates I did speak to hospitalist to request admission. The hospitalist refuses admission as he does not feel she meets inpatient criteria citing a very low risk pulmonary embolism severity index score. Patient was given first dose of Xarelto here. Wrote a prescription for the same. I advised that she follow-up with her primary care provider as soon as possible. She understands to return for new or worsening symptoms and was discharged. Treatment Plan: [] Disposition: Discharge Impression: Pulmonary embolism This note was generated with TrialScope dictation software. It may contain incorrect words, spelling, and punctuation that were not noted in review of the chart prior to signing ED Disposition - Plan for ED Patient: Disposition: Home or Assisted Living Instructions: Pulmonary Embolism Prescriptions: Oxycodone HCl/Acetaminophen [Percocet 5/325] 1 tab PO Q6H PRN PRN 5 Days #20 tab PRN Reason: Pain Rivaroxaban [Xarelto] 15 mg PO BID #41 tab Referrals: Lorson,Barbara, EMPLOYEE RELATIONS ADMINISTRATOR-C [Primary Care Provider] -
--- NOTE | 2018-10-16 04:13 | ED.DCSUM_ITS ---
- ER Visit Summary Date of Service: 10/16/18 Chief Complaint: Chest pain History of Present Illness: The patient is a 28 F who presents with chest pain. It began yesterday. She describes it as crushing. She currently rates it as 9 out of 10. She also reports associated shortness of breath and cough. She complains of nausea. Her shortness of breath is with exertion only. She was seen at [facility] a couple of hours ago and had an EKG and blood work. She did not have an x-ray or CTA. She states she came here for second opinion. She notes that she recently did have a [address] She also has a prior history of pulmonary embolism but is no longer on anticoagulation. She has been off anticoagulation since last May. Physical Examination: Heart rate 124, blood pressure 181/105. No distress Heart regular tachycardia Lungs are clear without rales rhonchi wheezes Abdomen soft nontender Extremities nontender Alert. Test Results: EKG shows sinus rhythm at a rate of 116. CBC BMP unremarkable. Troponin is less than 0.015. CTA of the chest does show a right lower lobe segmental to subsegmental pulmonary embolism without evidence of right heart strain. Emergency Department Course and Treatment: Patient was given IV morphine and Zofran here. She did require repeat dosing of IV narcotics. Given Cassius and pain requiring multiple doses of IV opiates I did speak to hospitalist to reques t admission. The hospitalist refuses admission as he does not feel she meets inpatient criteria citing a very low risk pulmonary embolism severity index score. Patient was given first dose of Xarelto here. Wrote a prescription for the same. I advised that she follow-up with her primary care provider as soon as possible. She understands to return for new or worsening symptoms and was discharged. Treatment Plan: [] Disposition: Discharge Impression: Pulmonary embolism This note was generated with Intellistream dictation software. It may contain incorrect words, spelling, and punctuation that were not noted in review of the chart prior to signing ED Disposition - Plan for ED Patient: Disposition: Home or Assisted Living Instructions: Pulmonary Embolism Prescriptions: Oxycodone HCl/Acetaminophen [Percocet 5/325] 1 tab PO Q6H PRN PRN 5 Days #20 tab PRN Reason: Pain Rivaroxaban [Xarelto] 15 mg PO BID #41 tab Referrals: Lorson,Barbara, TEACHER INSTRUMENTAL-C [Primary Care Provider] -
--- NOTE | 2018-10-16 04:24 | ED.RN ---
PICC line flushed with heparin prior to discharge. pt tolerated procedure well. Bleeding controlled.
== END 2018-10-16 04:08 | disposition home or self-care (01) ==
LOC: ED 01:00
PROVIDERS: Emergency Provider Emergency Medicine; Family Provider Nurse Practitioner Family; PCP Nurse Practitioner Family
DX: I26.99 Other pulmonary embolism without acute cor pulmonale (principal); Z86.711 Personal history of pulmonary embolism; G43.909 Migraine, unspecified, not intractable, without status migrainosus; Z79.899 Other long term (current) drug therapy
CPT/HCPCS: 71275; 80048; 84484; 85025; 93005; 96374; 96375; 96376; 99284; J7030; Q9967; A4216; J2405

== ENCOUNTER 2018-10-17 21:21 | Emergency (ER) | payer MEDICAID, SELFPAY ==
[2018-10-16 00:40] VITALS: BMI 48.7
[2018-10-17 21:22] VITALS: BP 120/89; PULSE 124; RESP 16; TEMP 37.5; O2SAT 95; BMI 48.7
--- NOTE | 2018-10-17 21:41 | EKG12_ITS ---
Test Reason : CP Blood Pressure : / mmHG Vent. Rate : 125 BPM Atrial Rate : 125 BPM P-R Int : 158 ms QRS Dur : 082 ms QT Int : 300 ms P-R-T Axes : 036 003 008 degrees QTc Int : 433 ms Sinus tachycardia Moderate voltage criteria for LVH, may be normal variant Borderline ECG Confirmed by CLEO HOLLIS, ROSE ([id number]), technical writer and editor ADRIANNA DOZIER ([id number]) on 10/20/2018 10:59:29 AM Referred By: LIZA Confirmed By:ROSE GALLO MD
--- NOTE | 2018-10-17 21:48 | ED.VIS.GEN ---
History of Present Illness Chief Complaint: Chest Pain Detail of Chief Complaint: Diagnosed with subsegmental right lower lobe pulmonary embolus September 14 Informant: Patient Onset: Days - 3 days ago Context: Sudden Onset Timing: Continuous Quality: Right-sided discomfort Location: Right anterior chest Current Severity: Moderate Maximum Severity: Severe Worsened by: Breathing Relieved by: Nothing Associated Symptoms: Shortness of breath Narrative: Patient is a 28-year-old female seen 2 days ago and diagnosed with pulmonary embolus. She states this is her fourth pulmonary embolus. She was started on Xarelto. She contacted her primary care physician because of increased pain and he recommended she return to the emergency department. She states the location is the same. The only difference is severity. She denies leg pain, swelling discoloration. She denies fever, chills or night sweats. She denies any respiratory symptoms other than the pleuritic chest pain and mild shortness of breath. Prior similar symptoms: Yes Recent Illness/Hospitalization: Yes - Past Medical History (1) Pulmonary embolus, right Status: Acute Past Medical History - Allergies and Home Meds Allergies/Adverse Reactions: Allergies furosemide [From Lasix] Allergy (Verified 10/17/18 21:22) Hives metformin Allergy (Verified 10/17/18 21:22) Unknown HIGH LACTIC ACID LEVELS propranolol Allergy (Verified 10/17/18 21:22) Angioedema sumatriptan [From Imitrex] Allergy (Verified 10/17/18 21:22) Other CHEST PAIN HEART ATTACK SYMPTOMS metoclopramide [From Reglan] Adverse Reaction (Verified 10/17/18 21:22) Other INTOLERACE prochlorperazine [From Compazine] Adverse Reaction (Verified 10/17/18 21:22) Other AGIATION Primary Care Physician: aBrbara Lopez NP-C [Primary Care Provider] - Prior records reviewed: Yes Lives: Spouse/ Significant Other, With Family Smoking Status: Never smoker Alcohol: None Review of Systems General: Denies: Chills, Fever, Malaise, Subjective, Sweats, Weight loss Eyes: Denies: Visual changes - bilaterally, Blurred Vision - bilaterally, Diplopia ENT: Denies: Rhinorrhea, Sore throat Cardiovascular: Reports: Chest pain, Palpitations Respiratory: Reports: Dyspnea, Dyspnea on exertion. Denies: Cough, Sputum, Orthopnea, Paroxysmal nocturnal dyspnea Gastrointestinal: Denies: Abdominal pain, Nausea, Vomiting, Diarrhea, Melena, Hematochezia Genitourinary: Denies: Dysuria, Hematuria, Frequency Musculoskeletal: Denies: Back pain, Extremity Pain Skin: Denies: Rash, Wounds Neurological: Denies: Headache, Weakness, Numbness Psych: Reports: Anxiety Hematologic: Denies: Easy bruising, Easy bleeding Physical Exam Vital Signs/Narrative: Vital Signs Temp Pulse Resp BP Pulse Ox 10/17/18 21:22 99.5 F H 124 H 16 120/89 H 95 Inital Vital Signs reviewed: Yes General: Well nourished, Well developed, Obese, No Acute Distress Head: Normocephalic, Atraumatic Eyes: Perrl, EOMI. Negative for: Pale conjunctiva, Scleral icterus ENT: Moist mucous membranes, No rhinorrhea Neck: Supple, Nontender, No lymphadenopathy, No JVD Cardiovascular: Regular rate, Regular rhythm, No murmurs Respiratory: No distress, CTA bilaterally, Chest nontender Abdomen: Soft, Nontender, Nondistended, Normal bowel sounds Back: Nontender, Normal Inspection Extremities: Nontender, No edema Skin: Normal color, No rash Neurological: Alert, Oriented x3, Cranial nerves II-XII grossly intact, Normal Strength, Normal Sensation, Normal DTR Psychological: Normal affect, Normal Mood Diagnostic/Tx/Re-eval - Medical Decision Making Records from [facility] were reviewed and reveal chronic blood clot right lower lobe. Report from 2 days ago was really red. There is no comment whether this is an occlusive or nonocclusive clot and represents an acute on chronic versus a chronic clot. Notes also indicate that she is not compliant with her anticoagulant. And that patient requests IV pain meds and meds to be administered rapidly. Patient will be treated with 50 mg of IV Toradol and 125 mg Solu-Medrol. Will reevaluate in 30 minutes. I was informed by her nurse that she began to cry. When I went back to assess her at 2300. She began to cry. I asked her if the pain had improved. She states no. I informed her I am not sure what else to do for her. She began to cry more. She states she only did which she was told, which was to come to the emergency room for evaluation. I informed her that I looked at her records from other facilities and that she has a known blood clot in the right lower lung. And based on that information and the other information that I obtained through review of her records at other facilities I informed her I have nothing else to offer her with regards to her pain management. I recommended that she follow-up with her primary care physician. ED Disposition - Plan for ED Patient: Disposition: Home or Assisted Living Diagnosis: Chest pain, pleuritic, Chronic pulmonary embolism Instructions: ED Chest Pain Pleurisy Referrals: Barbara Lopez, FREDO-C [Primary Care Provider] - 1-2 Days if not improving
[2018-10-17] MEDS: MethylPREDNISolone 125 MG/2 ML Vial IV (23:11)
[2018-10-17] MEDS: Ketorolac 15 MG/ML Vial IV (23:11)
[2018-10-17 23:44] VITALS: BP 131/100; PULSE 72; RESP 15; O2SAT 95
== END 2018-10-17 23:46 | disposition home or self-care (01) ==
PROVIDERS: Emergency Provider Emergency Medicine; Family Provider Nurse Practitioner Family; PCP Nurse Practitioner Family
DX: R07.81 Pleurodynia (principal); I27.82 Chronic pulmonary embolism; Z79.02 Long term (current) use of antithrombotics/antiplatelets; E66.9 Obesity, unspecified
CPT/HCPCS: 93005; 96374; 96375; 99284; A4216

== ENCOUNTER 2018-12-18 00:33 | Emergency (ER) | payer MEDICAID, SELFPAY ==
[2018-12-18 00:33] VITALS: BP 120/84; PULSE 119; RESP 18; TEMP 36.2; O2SAT 95; BMI 46.2
--- NOTE | 2018-12-18 01:02 | ED.DCSUM_ITS ---
History of Present Illness Chief Complaint: Head Injury Narrative: This patient is a 28-year-old female who presents with a headache. She has a history of migraines. However she is also on Xarelto for history of pulmonary emboli. She has been having multiple recurrent syncopal events over the past several weeks. She has been evaluated for this. She has actually had referrals to multiple specialist. She passed out again earlier today about 7:00. She had a migraine before she hit her head but states after hitting her head it was worse. She went to [facility] where she was treated with IV fluids and Reglan. She reports no improvement. She is also upset that she did not have any imaging given her history of anticoagulation. Past Medical History - Allergies and Home Meds Allergies/Adverse Reactions: Allergies furosemide [From Lasix] Allergy (Verified 12/18/18 00:35) Hives metformin Allergy (Verified 12/18/18 00:35) Unknown HIGH LACTIC ACID LEVELS propranolol Allergy (Verified 12/18/18 00:35) Angioedema sumatriptan [From Imitrex] Allergy (Verified 12/18/18 00:35) Other CHEST PAIN HEART ATTACK SYMPTOMS metoclopramide [From Reglan] Adverse Reaction (Verified 12/18/18 00:35) Other INTOLERACE prochlorperazine [From Compazine] Adverse Reaction (Verified 12/18/18 00:35) Other AGIATION Primary Care Physician: Barbara Lopez NP-C [Primary Care Provider] - Past Medical History: - - Pulmonary emboli, migraines, PCOS Smoking Status: Never smoker Review of Systems All systems negative except as indicated Neurological: Reports: Headache Physical Exam Vital Signs/Narrative: Vital Signs Temp Pulse Resp BP Pulse Ox 12/18/18 00:33 97.2 F L 119 H 18 120/84 H 95 General: Well nourished, No Acute Distress Head: Normocephalic, Atraumatic Eyes: Perrl, EOMI ENT: Moist mucous membranes Neck: Supple Cardiovascular: Regular rate, Regular rhythm Respiratory: No distress, CTA bilaterally Abdomen: Soft, Nontender, Nondistended Neurological: Alert, Oriented x3, Cranial nerves II-XII grossly intact, Normal Strength, Normal Sensation, - - GCS of 15 with no focal or lateralizing neurological deficits Diagnostic/Tx/Re-eval - Medical Decision Making Unfortunately patient is very limited on her treatment options. She reports allergy to Imitrex, she cannot take Toradol due to her anticoagulation, she did not have improvement with Reglan, she was told by her neurologist not to use DHE. He requested ketamine which I did not feel was appropriate. I advised that we would try something orally such as Minto after CT imaging was obtained and intracranial hemorrhage ruled out. Patient was then seen eloping from the emergency department. ED Disposition - Plan for ED Patient: Diagnosis: Head injury, Headache Referrals: Barbara Lopez NP-C [Primary Care Provider] -
--- NOTE | 2018-12-18 01:09 | ED.RN ---
NURSE CALLED INTO THE ROOM. PATIENT NO LONGER WISHES TO STAY. PATIENT IS NOT GETTING HER PAIN TREATED AND WANTS TO LEAVE. ADVISED PATIENT THAT SHE NEEDS A CT SCAN OF HER HEAD AND THEN PAIN CAN BE TREATED. SHE WAS ALREADY SEEN AT ANOTHER HOSPITAL AND TREATED FOR PAIN. PATIENT DENIES LOC, ALTERED LOC, DROVE HERSELF HERE, PHYSICAL EXAM UNREMARKABLE. ADVISED PATIENT SHE WOULD NEED TO SIGN AMA PAPERWORK SINCE SHE IS LEAVING AGAINST MEDICAL ADVICE. PATIENT REFUSES TO SIGN ANY PAPERWORK BECAUSE SHE IS NOT BEING TREATED PROPERLY. ADVISED PATIENT IS FREE TO LEAVE UNDER HER OWN FREE WILL.
--- NOTE | 2018-12-18 01:13 | ED.RN ---
DR. BAEZ MADE AWARE OF PATIENTS LEAVING THE DEPARTMENT
== END 2018-12-18 01:13 | disposition left against medical advice (07) ==
PROVIDERS: Emergency Provider Emergency Medicine; Family Provider Nurse Practitioner Family; PCP Nurse Practitioner Family
DX: S09.90XA Unspecified injury of head, initial encounter (principal); R51 Headache; Z86.711 Personal history of pulmonary embolism; Z79.02 Long term (current) use of antithrombotics/antiplatelets; W19.XXXA Unspecified fall, initial encounter; Y93.89 Activity, other specified; Y92.89 Other specified places as the place of occurrence of the external cause; Y99.8 Other external cause status
CPT/HCPCS: 99282

== ENCOUNTER 2019-06-02 17:21 | Emergency (ER) | payer MEDICAID, SELFPAY ==
[2019-06-02 17:22] VITALS: BP 137/99; PULSE 118; RESP 18; TEMP 36.9; O2SAT 98; BMI 44.8
--- NOTE | 2019-06-02 17:54 | EKG12_ITS ---
Test Reason : CP Blood Pressure : / mmHG Vent. Rate : 114 BPM Atrial Rate : 114 BPM P-R Int : 166 ms QRS Dur : 086 ms QT Int : 322 ms P-R-T Axes : 038 017 035 degrees QTc Int : 443 ms Sinus tachycardia Nonspecific T wave abnormality Abnormal ECG Confirmed by ADRIANA HOLLIS, KAYLYNN ([id number]), managing editor CAMI EMERY ([id number]) on 06/05/2019 12:26:15 PM Referred By: MICHELLE/NIKOLE Confirmed By:CODEY WRIGHT MD
--- NOTE | 2019-06-02 17:55 | RAD_ITS ---
STUDY: X-RAY CHEST REASON FOR EXAM: Female, 29 years old. Chest pain TECHNIQUE: Single AP portable view of the chest. COMPARISON: None. FINDINGS: The lungs are clear and expanded. There is no demonstrated pleural abnormality. Normal size heart. Normal mediastinum and teja. Normal visualized pulmonary arteries. Normal visualized aortic arch and descending thoracic aorta. Normal visualized thoracic spine. Normal visualized ribs, clavicles, and shoulders. There is no demonstrated abnormality of the visualized soft tissue structures of the upper abdomen. RAD/Chest 1 View (Portable) IMPRESSION: Normal x-ray examination of the chest. Electronically Signed: Rikki John DO at 18:24 EST Tel , Service support ,
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
[2019-06-02] MEDS: LORazepam 1 MG Tablet PO (18:06)
[2019-06-02 18:20] LABS: Absolute Lymphocyte Count 0.74 X10^3/uL (0.83-4.51); Absolute Neutrophil Count 1.9 X10^3/uL (2.0-7.7); Basophil# 0.03 X10^3/uL; Eosinophil# 0.11 X10^3/uL; Eosinophils% 3.7 % (0-5); Hematocrit 36.4 % (37-47); Hemoglobin 11.8 g/dL (12.0-15.0); Lymphocyte # 0.74 X10^3/ul (4.0); Lymphocyte % 24.8 % (19-41); Mean Corp Hgb Conc 32.4 g/dL (32-36); Mean Corpuscular Hgb 25.7 pg (27.0-32.0); Mean Corpuscular Volume 79.1 fL (81-99); Mean Platelet Vol. 9.6 fl (6.2-12.0); Monocyte% 6.7 % (0-10); NRBC Flagged by Analyzer 0 % (0-5); Neutrophil # 1.89 X10^3/uL (2.7-7.7); Neutrophil % 63.5 % (47-70); Platelet Count 256 K/mm3 (150-450); RBC Distribution Width CV 14.6 % (11.6-14.6); RBC Distribution Width SD 41.5 fl (35.1-43.9)
[2019-06-02 18:22] VITALS: BP 120/97; PULSE 104; RESP 16; O2SAT 95
[2019-06-02 18:50] LABS: Anion Gap 6 (5-15); BUN 10 mg/dL (7-18); BUN/Creat Ratio 16.7 RATIO (10-20); Calcium,Total 8.7 mg/dL (8.5-10.1); Chloride 109 mmol/L (98-107); EST Glomerular Filtration Rate 128 mL/min (>60); Est Glom Filt Rate - Afr Amer 154 mL/min (>60); Estimated Creatinine Clearance 106.28 ml/min; Glucose 138 mg/dL (74-106); Potassium 4.3 mmol/L (3.5-5.1); Sodium Level 138 mmol/L (136-145)
[2019-06-02 19:00] VITALS: BP 125/97; PULSE 101; RESP 14; O2SAT 97
--- NOTE | 2019-06-02 19:15 | ED.DEP ---
ED Disposition - Plan for ED Patient: Instructions: CHEST PAIN, Uncertain Cause Referrals: Barbara Lopez NP-C [Primary Care Provider] -
[2019-06-02] MEDS: DiphenhydrAMINE 50 MG/ML Syringe 25 MG IV (19:19)
[2019-06-02] MEDS: Metoclopramide 10 MG/2 ML Vial 5 MG IV (19:19)
[2019-06-02 19:30] VITALS: BP 125/97; PULSE 104; RESP 22; O2SAT 97
== END 2019-06-02 19:31 | disposition home or self-care (01) ==
LOC: ED 18:15
PROVIDERS: Emergency Provider Emergency Medicine; Family Provider Nurse Practitioner Family; PCP Nurse Practitioner Family
DX: R07.89 Other chest pain (principal); F41.9 Anxiety disorder, unspecified; Z86.711 Personal history of pulmonary embolism; Z79.02 Long term (current) use of antithrombotics/antiplatelets; Z79.899 Other long term (current) drug therapy
CPT/HCPCS: 71045; 80048; 84484; 85025; 93005; 96374; 96375; 99285; A4216

== ENCOUNTER 2019-08-25 05:37 | Emergency (ER) | payer MEDICAID, SELFPAY ==
[2019-08-25 05:38] VITALS: BP 115/63; PULSE 106; RESP 20; TEMP 36.6; O2SAT 96; BMI 44.5
[2019-08-25 05:51] VITALS: O2SAT 97
--- NOTE | 2019-08-25 05:55 | RAD_ITS ---
STUDY: X-RAY CHEST REASON FOR EXAM: Female, 29 years old. C/O CP TECHNIQUE: Single AP portable view of the chest. COMPARISON: 06/02/2019 FINDINGS: There are superimposed monitor leads. Stable left-sided port and loop recorder. Mild blunting of the left costophrenic angle. There is no demonstrated pleural abnormality. Normal size heart. Normal mediastinum and teja. Normal visualized pulmonary arteries. Normal visualized aortic arch and descending thoracic aorta. Normal visualized thoracic spine. Normal visualized ribs, clavicles, and shoulders. There is no demonstrated abnormality of the visualized soft tissue structures of the upper abdomen. RAD/Chest 1 View (Portable) IMPRESSION: Trace pleural fluid or thickening left base. There is no acute cardiopulmonary disease. Electronically Signed: Kayla Torres MD at 6:20 EST , Service support ,
--- NOTE | 2019-08-25 05:55 | EKG12_ITS ---
Test Reason : CP Blood Pressure : / mmHG Vent. Rate : 111 BPM Atrial Rate : 111 BPM P-R Int : 176 ms QRS Dur : 096 ms QT Int : 342 ms P-R-T Axes : 049 021 029 degrees QTc Int : 465 ms Sinus tachycardia Nonspecific T wave abnormality Abnormal ECG Confirmed by LIZ ALBARRAN ([id number]), movie editor RAMSES BEST ([id number]) on 08/27/2019 3:15:38 PM Referred By: LORENA Confirmed By:LZI ALBARRAN
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
[2019-08-25] MEDS: LORazepam 2 MG/ML Syringe 1 MG IV (06:34)
[2019-08-25 06:37] LABS: Absolute Lymphocyte Count 2.24 X10^3/uL (0.83-4.51); Absolute Neutrophil Count 4.3 X10^3/uL (2.0-7.7); Basophil# 0.03 X10^3/uL; Basophil% 0.4 % (0-1); Eosinophil# 0.13 X10^3/uL; Eosinophils% 1.8 % (0-5); Hematocrit 34.4 % (37-47); Hemoglobin 11.4 g/dL (12.0-15.0); Lymphocyte # 2.24 X10^3/ul (4.0); Mean Corp Hgb Conc 33.1 g/dL (32-36); Mean Corpuscular Hgb 25.4 pg (27.0-32.0); Mean Corpuscular Volume 76.8 fL (81-99); Mean Platelet Vol. 8.7 fl (6.2-12.0); Monocyte# 0.48 X10^3/uL; Monocyte% 6.6 % (0-10); NRBC Flagged by Analyzer 0 % (0-5); Neutrophil # 4.32 X10^3/uL (2.7-7.7); Neutrophil % 59.9 % (47-70); Platelet Count 266 K/mm3 (150-450); RBC Distribution Width CV 13.6 % (11.6-14.6); RBC Distribution Width SD 37.6 fl (35.1-43.9); Red Blood Count 4.48 M/mm3 (4.2-5.4); White Blood Count 7.2 K/mm3 (4.4-11.0)
[2019-08-25] MEDS: DiphenhydrAMINE 50 MG/ML Syringe 25 MG IV (06:52)
[2019-08-25] MEDS: Metoclopramide 10 MG/2 ML Vial IV (06:52)
[2019-08-25 06:56] LABS: Anion Gap 6 (5-15); BUN 18 mg/dL (7-18); BUN/Creat Ratio 24.4 RATIO (10-20); Calcium,Total 8.8 mg/dL (8.5-10.1); Chloride 107 mmol/L (98-107); Creatinine, Serum 0.74 mg/dL (0.55-1.02); EST Glomerular Filtration Rate 100 mL/min (>60); Est Glom Filt Rate - Afr Amer 121 mL/min (>60); Estimated Creatinine Clearance 86.17 ml/min; Glucose 186 mg/dL (74-106); Potassium 3.4 mmol/L (3.5-5.1); Sodium Level 136 mmol/L (136-145)
[2019-08-25 07:12] VITALS: BP 112/60; PULSE 87; RESP 18; O2SAT 99
== END 2019-08-25 07:14 | disposition home or self-care (01) ==
PROVIDERS: Emergency Provider Emergency Medicine; PCP Nurse Practitioner Family
DX: R07.9 Chest pain, unspecified (principal); F41.9 Anxiety disorder, unspecified; R51 Headache; F17.200 Nicotine dependence, unspecified, uncomplicated; E66.9 Obesity, unspecified; Z86.711 Personal history of pulmonary embolism; Z79.02 Long term (current) use of antithrombotics/antiplatelets
CPT/HCPCS: 71045; 80048; 84484; 85025; 93005; 96374; 96375; 99285; A4216

== ENCOUNTER 2019-09-04 06:42 | Emergency (ER) | payer MEDICAID, SELFPAY ==
[2019-09-04 06:43] VITALS: BP 124/79; PULSE 95; RESP 18; TEMP 36.6; O2SAT 96; BMI 42.9
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
[2019-09-04 08:16] LABS: Absolute Lymphocyte Count 2.93 X10^3/uL (0.83-4.51); Absolute Neutrophil Count 4.2 X10^3/uL (2.0-7.7); Basophil# 0.02 X10^3/uL; Basophil% 0.3 % (0-1); Eosinophil# 0.03 X10^3/uL; Eosinophils% 0.4 % (0-5); Hematocrit 35.5 % (37-47); Hemoglobin 11.5 g/dL (12.0-15.0); Lymphocyte # 2.93 X10^3/ul (4.0); Lymphocyte % 37.6 % (19-41); Mean Corp Hgb Conc 32.4 g/dL (32-36); Mean Corpuscular Hgb 25.4 pg (27.0-32.0); Mean Corpuscular Volume 78.5 fL (81-99); Mean Platelet Vol. 8.5 fl (6.2-12.0); Monocyte# 0.58 X10^3/uL; Monocyte% 7.4 % (0-10); NRBC Flagged by Analyzer 0 % (0-5); Neutrophil % 53.9 % (47-70); Platelet Count 353 K/mm3 (150-450); RBC Distribution Width CV 13.3 % (11.6-14.6); RBC Distribution Width SD 38.4 fl (35.1-43.9); Red Blood Count 4.52 M/mm3 (4.2-5.4); White Blood Count 7.8 K/mm3 (4.4-11.0)
[2019-09-04 08:29] LABS: Internal QC Validated? YES +Cl - CLEAR BKGD; Pregnancy, Serum, hCG Quali. NEGATIVE Negative
[2019-09-04] MEDS: LORazepam 2 MG/ML Syringe 1 MG IV ×2 (08:32→10:15)
[2019-09-04] MEDS: Morphine 4 MG/ML Syringe IV (08:32)
[2019-09-04 08:34] LABS: Mucous, Urine 0 SEEN /hpf (<or=2+)
[2019-09-04 08:35] LABS: Color, Urine Yellow (Yellow); Glucose, Dipstick Normal (Normal); Ketone-Dipstick 5 mg/dl (Negative); Leukocyte Esterase-Dipstick 500 /ul (Negative); Nitrite-Dipstick Negative (Negative); Occult Blood-Urine 10 /ul (Negative); Protein-Dipstick 15 mg/dl (Negative); Specific Gravity, Urine 1.025 (1.002-1.030); Urine Bilirubin Dipstick Negative (Negative); Urine Clarity Sl. Cloudy (Clear); Urine Urobilinogen Normal (Normal)
[2019-09-04 08:44] LABS: White Blood Cells 10-25 SEEN /hpf (0-5)
[2019-09-04 08:45] LABS: Red Blood Cells-Urine 0-5 SEEN /hpf (0-5); Squamous Epithelial Cells - UA 10-25 SEEN /hpf (5-10)
[2019-09-04 08:46] LABS: Bacteria 3+ /hpf (None Seen)
[2019-09-04 08:47] LABS: ALB/GLOB Ratio 0.9 RATIO (0.9-2.4); AST(SGOT) 10 U/L (15-37); Alanine Aminotransfer ALT/SGPT 36 U/L (13-56); Albumin, Serum 3.4 g/dL (3.2-5.0); Alkaline Phosphatase 90 U/L (45-117); Anion Gap 4 (5-15); BUN 12 mg/dL (7-18); BUN/Creat Ratio 17.1 RATIO (10-20); Calcium,Total 9.7 mg/dL (8.5-10.1); Chloride 110 mmol/L (98-107); EST Glomerular Filtration Rate 106 mL/min (>60); Est Glom Filt Rate - Afr Amer 128 mL/min (>60); Globulin 3.8 g/dL (2.2-4.2); Glucose 113 mg/dL (74-106); Potassium 3.6 mmol/L (3.5-5.1); Protein, Total 7.2 g/dL (6.4-8.2); Sodium Level 140 mmol/L (136-145)
[2019-09-04] MEDS: DiphenhydrAMINE 50 MG/ML Syringe 25 MG IV (09:12)
[2019-09-04 09:14] VITALS: RESP 16
--- NOTE | 2019-09-04 10:00 | ED.RN ---
MRI CALLS STATING THAT PATIENT IS NOT TOLERATING SCAN AND REFUSES UNLESS SHE CAN BE FURTHER MEDICATED. DR. DIEZ MADE AWARE, ADDITIONAL ORDERS OBTAINED.
[2019-09-04] MEDS: DiphenhydrAMINE 50 MG/ML Syringe IV (10:15)
[2019-09-04 11:32] VITALS: BP 124/80; RESP 16; O2SAT 96
[2019-09-04 12:24] VITALS: PULSE 90
[2019-09-04] MEDS: HYDROcodone Bitartrate/Apap 5/325 Tablet PO (12:50)
[2019-09-04 12:55] VITALS: BP 129/76; PULSE 100; RESP 17; O2SAT 96
--- NOTE | 2019-09-04 12:56 | ED.RN ---
PORT DE-ACCESSED USING HEPARIN PER PROTOCOL. DISCHARGE INSTRUCTIONS GIVEN TO AND REVIEWED WITH PATIENT, PATIENT DENIES QUESTIONS OR CONCERNS AND VOICES UNDERSTANDING OF DISCHARGE INSTRUCTIONS. PT AMBULATES OUT OF ROOM WITHOUT DIFFICULTY.
== END 2019-09-04 12:57 | disposition home or self-care (01) ==
PROVIDERS: Emergency Provider Emergency Medicine; PCP Nurse Practitioner Family
DX: M54.5 Low back pain (principal); G43.909 Migraine, unspecified, not intractable, without status migrainosus; Z86.711 Personal history of pulmonary embolism; Z79.02 Long term (current) use of antithrombotics/antiplatelets; Z79.899 Other long term (current) drug therapy
CPT/HCPCS: 36591; 72148; 80053; 81001; 84703; 85025; 96374; 96375; 96376; 99285; P9612; A4216

== ENCOUNTER 2019-09-07 01:52 | Emergency (ER) | payer MEDICAID, SELFPAY ==
[2019-09-07 01:53] VITALS: BP 130/80; PULSE 110; RESP 23; TEMP 36.5; O2SAT 97; BMI 44.1
--- NOTE | 2019-09-07 02:07 | ED.RN ---
RN CALLED FOR EKG, PULLED OLD EKGS FOR
--- NOTE | 2019-09-07 02:17 | EKG12_ITS ---
Test Reason : CP/SYNCOPE Blood Pressure : / mmHG Vent. Rate : 114 BPM Atrial Rate : 114 BPM P-R Int : 174 ms QRS Dur : 088 ms QT Int : 322 ms P-R-T Axes : 043 018 063 degrees QTc Int : 443 ms Sinus tachycardia Otherwise normal ECG Confirmed by TRINITY HOLLIS, RAFAEL ([id number]), commissioning editor ADRIANNA DOZIER ([id number]) on 09/09/2019 1:48:22 PM Referred By: LUIS/MICHELLE Confirmed By:RAFAEL PETERSEN MD
--- NOTE | 2019-09-07 02:17 | CT_ITS ---
STUDY: CTA CHEST REASON FOR EXAM: Female, 29 years old. CP/SOB/HX PE. RADIATION DOSAGE (If Supplied By Facility): CTDIvol = ( 10.29 ) mGy, DLP = ( 443.58 ) mGycm TECHNIQUE: The examination was performed with the intravenous administration of Isovue 370 100ml. Post-processing of the angiographic images was performed, with multiplanar reformation and 3D reconstruction. Individualized dose optimization techniques were used for this CT. COMPARISON: Chest x-ray 08/25/2019. CTA chest 10/16/2018. FINDINGS: There is a left internal jugular central venous catheter with its tip in the superior vena cava. Normal enhancement of the main pulmonary artery and right and left pulmonary arteries. Normal enhancement of the bilateral peripheral pulmonary arteries. There is no demonstrated pulmonary embolism. Normal thoracic aorta and visualized great vessels. There is no demonstrated aortic dissection. Normal heart and pericardium. Normal mediastinum. Normal hilar regions. Normal visualized trachea and bronchi. The lungs are underexpanded. Apparent diffuse groundglass type density in the lungs might be an artifact of under expansion, or might represent acute CHF or diffuse infectious or inflammatory process. There is no demonstrated focal pulmonary consolidation.. There are small bilateral pleural effusions. Normal chest wall structures. Normal osseous structures. The patient is status post cholecystectomy. The spleen is enlarged. CT/CTA Chest W/WO Contrast IMPRESSION: Normal CTA chest examination, without a demonstrated pulmonary embolism, aortic aneurysm, or aortic dissection. Small bilateral pleural effusions. Diffuse groundglass type density in the lungs may be an artifact of under expansion, or it might represent acute CHF or a diffuse inflammatory or atypical infectious process. No demonstrated focal pulmonary infiltrate. Port-A-Cath in position. Chronic splenomegaly. Electronically Signed: Jamel Eugene MD at 5:28 EST , Service support ,
--- NOTE | 2019-09-07 02:19 | ED.VIS.CHEST ---
History of Present Illness Chief Complaint: Chest Pain Informant: Patient Onset: Hours - 1-2 Activity at onset: - - Awoke with symptoms from sleep Quality: - - Crushing Location: Substernal - With radiation into mid back. No arm or jaw pain. Current Severity: Moderate Maximum Severity: Severe Worsened By: Breathing, - - Lying supine Relieved By: Nothing - Except a little by sitting up Associated Symptoms: Nausea, Dyspnea. Negative for: Vomiting, Diaphoresis, Cough, Fever, Lightheadedness, Palpitations Narrative: Patient has a history of pulmonary embolus as a result of factor V Leiden. This past week she has had a stomach bug with vomiting and fevers. That is mostly resolved although she is still nauseated and had some dry heaving yesterday occasionally, but this illness resulted in her missing her Xarelto because she could not keep the pills down for about 4 days. The first dose that she was able to keep down since then was yesterday at dinner. She is concerned given this discomfort that now she has a recurrent pulmonary embolus and is asking for a scan and something for the pain. She denies any syncope or near syncope. Bowlus her heart racing when she woke up with this this morning as well but that is not the case now. She states the last pulmonary embolus she was diagnosed with was about 1.5 months ago at [facility]. She states subsequently, around 2 or 3 weeks later, she had a repeat scan that showed resolution of the clot. Additionally, she states she gets a reaction to the IV contrast for the CT scan occasionally, and gets hives. She is asking for pretreatment because of that. Prior Similar Symptoms: Yes, With Prior PE Recent Illness/Hospitalization: Yes - See HPI - Past Medical History (1) Factor V Leiden Status: Chronic (2) Pulmonary embolus, right Status: Chronic Past Medical History - Allergies and Home Meds Allergies/Adverse Reactions: Allergies furosemide [From Lasix] Allergy (Verified 09/07/19 01:52) Hives metformin Allergy (Verified 09/07/19 01:52) Unknown HIGH LACTIC ACID LEVELS ondansetron [From Zofran] Allergy (Verified 09/07/19 01:52) Hives propranolol Allergy (Verified 09/07/19 01:52) Angioedema sumatriptan [From Imitrex] Allergy (Verified 09/07/19 01:52) Other CHEST PAIN HEART ATTACK SYMPTOMS metoclopramide [From Reglan] Adverse Reaction (Verified 09/07/19 01:52) Other NEEDS BENADRYL WITH MED TO TOLERATTE prochlorperazine [From Compazine] Adverse Reaction (Verified 09/07/19 01:52) Other AGIATION Primary Care Physician: Barbara Lopez NP-C [Primary Care Provider] - Lives: Alone Smoking Status: Never smoker Review of Systems General: Denies: Chills, Fever, Sweats Eyes: Denies: Visual changes - bilaterally, Diplopia ENT: Denies: Bilateral ear pain, Rhinorrhea, Sore throat Cardiovascular: Reports: Chest pain, Palpitations Respiratory: Reports: Dyspnea. Denies: Cough, Sputum, Dyspnea on exertion Gastrointestinal: Reports: Nausea, Vomiting - Recently, not tonight with these acute symptoms. Denies: Abdominal pain, Diarrhea, Melena, Hematochezia Genitourinary: Denies: Dysuria, Hematuria, Frequency Musculoskeletal: Denies: Neck pain, Back pain, Swelling, Extremity Pain Skin: Denies: Rash, Wounds Neurological: Denies: Headache, Weakness, Numbness Physical Exam Vital Signs/Narrative: Vital Signs Temp Pulse Resp BP Pulse Ox 09/07/19 01:53 97.7 F L 110 H 23 H 130/80 H 97 Inital Vital Signs reviewed: Yes General: Well nourished, Well developed, Obese, No Acute Distress - Speaking in full sentences Head: Normocephalic, Atraumatic Eyes: Perrl, EOMI ENT: Moist mucous membranes, No rhinorrhea Neck: Supple, Nontender, No lymphadenopathy, No JVD Cardiovascular: Regular rate, Regular rhythm, No murmurs, Tachycardia - Mild Respiratory: No distress, CTA bilaterally, Chest nontender Abdomen: Soft, Nontender, Nondistended, Normal bowel sounds Back: Nontender, Normal Inspection Extremities: Nontender, No edema. Negative for: Calf Tenderness Skin: Normal color, No rash, No Trauma Neurological: Alert, Oriented x3, Cranial nerves II-XII grossly intact, Normal Strength, Normal Sensation Psychological: Normal Mood, - - Anxious Diagnostic/Tx/Re-eval Impressions Chest CTA 09/07/19 02:17 IMPRESSION: Normal CTA chest examination, without a demonstrated pulmonary embolism, aortic aneurysm, or aortic dissection. Small bilateral pleural effusions. Diffuse groundglass type density in the lungs may be an artifact of under expansion, or it might represent acute CHF or a diffuse inflammatory or atypical infectious process. No demonstrated focal pulmonary infiltrate. Port-A-Cath in position. Chronic splenomegaly. Electronically Signed: Jamel Eugene MD at 5:28 EST , Service support , 09/07/19 02:17 CTA Chest W/WO Contrast [CT] Stat Laboratory Results 09/07/19 09/07/19 09/07/19 02:55 02:55 02:55 WBC 5.4 RBC 4.49 Hgb 11.0 L Hct 34.8 L MCV 77.5 L MCH 24.5 L MCHC 31.6 L RDW Std Deviation 37.4 RDW Coeff of Millie 13.2 Plt Count 248 MPV 8.4 Immature Gran % (Auto) 0.200 Neut % (Auto) 42.9 L Lymph % (Auto) 48.3 H Fa[place] % (Auto) 5.2 Eos % (Auto) 3.0 Baso % (Auto) 0.4 Absolute Neuts (auto) 2.3 Absolute Lymphs (auto) 2.61 Nucleated RBC % 0 Sodium 138 Potassium 3.1 L Chloride 106 Carbon Dioxide 22.0 Anion Gap 10 BUN 12 Creatinine 0.97 Estim Creat Clear Calc 65.74 Est GFR (MDRD) Af Amer 88 Est GFR (MDRD) Non-Af 73 BUN/Creatinine Ratio 12.3 Glucose 158 H Calcium 8.6 Troponin I < 0.015 Serum , Qual NEGATIVE - Rhythm Strip Rhythm Strip: Sinus Tach Rate: 103 Ectopy: None - EKG Initial EKG Interpretation: Sinus Tachycardia, Non-Specific ST Changes Prior: Unchanged Treatment: GI Cocktail - Patient denies any improvement after this, so she was then given morphine - Medical Decision Making Patient is concerned that she has another pulmonary embolus. She states she had a negative CTA on her last scan. We performed a scan of her chest, it is negative for pulmonary embolus. As I discussed with her before the scan, even if she had a small pulmonary embolus that was new, her vital signs are normal, she is not hypoxic or in extremis, and the treatment would not change. She wanted to do the scan anyway, and it was performed. In the case where a small subsegmental pulmonary embolus was missed on the scan, she is under current treatment and this would not be a treatment failure since she was basically not taking the medication for at least [address] showed diffuse groundglass type densities in the lungs that may be artifact and I suspect that is probably what it is based on her symptoms and exam. There were very small bilateral pleural effusions noted which I discussed with the patient. Again, probably not related to the pain she is having acutely. This patient has been focusing on pain control. She is in no acute distress, listening to music on her headphones on reevaluation prior to discharge. She refused to go to CT until she received something for my pain because lying down made the pain worse, which is why I gave her a GI cocktail to begin with, since her nonlateralizing symptoms were potentially more consistent with GI etiologies then pulmonary embolus, especially in context of her recently having viral gastritis. At discharge she is asking for something for pain and making sure that I understand that she is not allowed to have NSAIDs and that Tylenol is not going to help enough. I did check an oars report. She frequently is prescribed narcotics for unknown reasons from multiple prescribers. She most recently had tramadol, it is no longer active. I will give her a short supply of Ultram and she is advised to follow-up but I do not think she is having any type of life-threatening etiology of her symptoms this morning. ED Disposition - Plan for ED Patient: Disposition: Home or Assisted Living Diagnosis: Chest pain, unspecified Instructions: CHEST PAIN, NonCardiac Prescriptions: traMADol [Ultram] 50 mg PO Q4H PRN PRN 2 Days #10 tab PRN Reason: Pain Prescription Printed Referrals: Barbara Lopez NP-C [Primary Care Provider] - 3-5 Days if not improving
[2019-09-07 02:52] VITALS: BP 102/82; PULSE 109; RESP 21; O2SAT 92
[2019-09-07] MEDS: Mag Hydrox/Al Hydrox/Simeth 30 ML UDC PO (03:01)
[2019-09-07] MEDS: MethylPREDNISolone 125 MG/2 ML Vial IV (03:01)
[2019-09-07] MEDS: DiphenhydrAMINE 50 MG/ML Syringe 25 MG IV (03:05)
[2019-09-07 03:18] LABS: Absolute Lymphocyte Count 2.61 X10^3/uL (0.83-4.51); Absolute Neutrophil Count 2.3 X10^3/uL (2.0-7.7); Basophil# 0.02 X10^3/uL; Basophil% 0.4 % (0-1); Eosinophil# 0.16 X10^3/uL; Hematocrit 34.8 % (37-47); Lymphocyte # 2.61 X10^3/ul (4.0); Lymphocyte % 48.3 % (19-41); Mean Corp Hgb Conc 31.6 g/dL (32-36); Mean Corpuscular Hgb 24.5 pg (27.0-32.0); Mean Corpuscular Volume 77.5 fL (81-99); Mean Platelet Vol. 8.4 fl (6.2-12.0); Monocyte# 0.28 X10^3/uL; Monocyte% 5.2 % (0-10); NRBC Flagged by Analyzer 0 % (0-5); Neutrophil # 2.32 X10^3/uL (2.7-7.7); Neutrophil % 42.9 % (47-70); Platelet Count 248 K/mm3 (150-450); RBC Distribution Width CV 13.2 % (11.6-14.6); RBC Distribution Width SD 37.4 fl (35.1-43.9); Red Blood Count 4.49 M/mm3 (4.2-5.4); White Blood Count 5.4 K/mm3 (4.4-11.0)
[2019-09-07 03:27] LABS: Anion Gap 10 (5-15); BUN 12 mg/dL (7-18); BUN/Creat Ratio 12.3 RATIO (10-20); Calcium,Total 8.6 mg/dL (8.5-10.1); Chloride 106 mmol/L (98-107); Creatinine, Serum 0.97 mg/dL (0.55-1.02); EST Glomerular Filtration Rate 73 mL/min (>60); Est Glom Filt Rate - Afr Amer 88 mL/min (>60); Estimated Creatinine Clearance 65.74 ml/min; Glucose 158 mg/dL (74-106); Potassium 3.1 mmol/L (3.5-5.1); Sodium Level 138 mmol/L (136-145)
[2019-09-07 03:28] LABS: Pregnancy, Serum, hCG Quali. NEGATIVE Negative
[2019-09-07 03:29] LABS: Internal QC Validated? YES +Cl - CLEAR BKGD
[2019-09-07] MEDS: Morphine 4 MG/ML Syringe IV (04:19)
[2019-09-07] MEDS: proMETHazine 25 MG/ML Syringe 6.25 MG IV (04:20)
[2019-09-07 04:22] VITALS: BP 113/91; PULSE 94; RESP 11; O2SAT 97
[2019-09-07 05:58] VITALS: BP 113/91; PULSE 80; RESP 22; O2SAT 98
[2019-09-07 06:00] VITALS: BP 113/91; PULSE 80; RESP 22; O2SAT 98
== END 2019-09-07 06:05 | disposition home or self-care (01) ==
PROVIDERS: Emergency Provider Emergency Medicine; PCP Nurse Practitioner Family
DX: R07.89 Other chest pain (principal); R55 Syncope and collapse; D68.51 Activated protein C resistance; F41.9 Anxiety disorder, unspecified; Z86.711 Personal history of pulmonary embolism; Z79.02 Long term (current) use of antithrombotics/antiplatelets; Z79.899 Other long term (current) drug therapy
CPT/HCPCS: 36591; 70450; 71275; 80048; 84484; 84703; 85025; 93005; 96361; 96374; 96375; 99283; 99285; J7030; Q9967; A4216

== ENCOUNTER 2019-09-07 11:01 | Emergency (ER) | payer MEDICAID, SELFPAY ==
[2019-09-07 01:53] VITALS: BMI 44.1
--- NOTE | 2019-09-07 02:05 | EKG12_ITS ---
Test Reason : CP Blood Pressure : / mmHG Vent. Rate : 104 BPM Atrial Rate : 104 BPM P-R Int : 162 ms QRS Dur : 090 ms QT Int : 370 ms P-R-T Axes : 032 014 015 degrees QTc Int : 486 ms Sinus tachycardia Nonspecific T wave abnormality Abnormal ECG Confirmed by LIZ ALBARRAN ([id number]), business editor RAMSES BEST ([id number]) on 09/08/2019 2:18:54 PM Referred By: MAGGI Confirmed By:LIZ ALBARRAN
[2019-09-07 11:02] VITALS: BP 145/78; PULSE 125; RESP 18; TEMP 36.2; O2SAT 94; BMI 41.5
--- NOTE | 2019-09-07 12:00 | ED.VISSUMM ---
- ER Visit Summary Date of Service: 09/07/19 Chief Complaint: Syncope History of Present Illness: The patient is a 29 F presenting after syncopal episode. Patient states she was seen in the ED last night. She was evaluated for chest pain at that time. She has a history of factor V Leiden. She had a CTA of her chest which showed no evidence of PE. She had a negative troponin. She was sent home. She states later in the middle of the night she was walking to the bathroom and had nausea and lightheadedness. She had a syncopal episode and hit her head. She was concerned because she is on Xarelto. She has a history of previous syncope and has a loop recorder in place. Denies recent fever or cough. Denies other complaints. Physical Examination: Vitals are stable. Patient is afebrile. Alert no acute distress. HEENT exam is unremarkable. Neck is supple. No meningismus Lungs are clear and equal bilaterally. Heart is regular and tachycardic Abdomen is soft nontender nondistended. Extremities are unremarkable. Skin is warm and dry. No focal neurologic deficit. Remainder of exam is unremarkable. Emergency Department Course and Treatment: She was given morphine, Zofran IV. EKG is sinus tachycardia rate of 114. test from visit earlier today was negative. CBC, chemistries unremarkable other than glucose 200. Troponin is negative. CT head was obtained and shows no acute process. Patient is resting comfortably on reevaluation. She is requesting Reglan and Benadryl for her headache. This was ordered. She is advised to follow-up with her primary care physician. Advised return to the ED for worsening complaints. Disposition: Discharge home Impression: Atypical chest pain, syncope This note was generated with [employer] dictation software. It may contain incorrect words, spelling, and punctuation that were not noted in review of the chart prior to signing ED Disposition - Plan for ED Patient: Disposition: Home or Assisted Living Instructions: SYNCOPE, Unk Cause Referrals: Wendy Peng MD [STAFF PHYSICIAN] - Barbara Lopez NP-C [Primary Care Provider] -
[2019-09-07 12:01] VITALS: BP 126/74; PULSE 105; RESP 24; O2SAT 97
--- NOTE | 2019-09-07 12:02 | CT_ITS ---
STUDY: CT BRAIN WITHOUT CONTRAST REASON FOR EXAM: Female, 29 years old. SYNCOPE, HIT HEAD RADIATION DOSAGE (If Supplied By Facility): CTDIvol = ( 44.99 ) mGy, DLP = ( 711.75 ) mGycm TECHNIQUE: Transaxial CT imaging of the brain was performed without administration of intravenous contrast material. Individualized dose optimization techniques were used for this CT. COMPARISON: CTA head 07/27/17. FINDINGS: Normal soft tissue structures. Normal calvarium. Normal size ventricles and extra-axial spaces for the patient''s age. Normal white matter tracts of the cerebral hemispheres. Normal basal ganglia and thalami. Normal brainstem. Normal cerebellum. There is no intracranial hemorrhage. There are no findings of an acute ischemic infarction. Normal visualized paranasal sinuses. CT/Brain/Head without Contrast IMPRESSION: Normal unenhanced CT scan of the brain. Electronically Signed: Agatha Sarmiento, at 13:38 EST Tel , Service support ,
[2019-09-07] MEDS: proMETHazine 25 MG/ML Syringe 6.25 MG IV (12:59)
[2019-09-07 13:00] VITALS: BP 126/76; PULSE 109; RESP 24; O2SAT 93
[2019-09-07] MEDS: Morphine 4 MG/ML Syringe IV (13:00)
[2019-09-07] MEDS: 0.9% Normal Saline 1,000 ML 1000 ML IV (13:06)
[2019-09-07 13:08] LABS: Absolute Lymphocyte Count 0.68 X10^3/uL (0.83-4.51); Absolute Neutrophil Count 6.9 X10^3/uL (2.0-7.7); Hematocrit 37.2 % (37-47); Hemoglobin 11.9 g/dL (12.0-15.0); Lymphocyte # 0.68 X10^3/ul (4.0); Lymphocyte % 8.9 % (19-41); Mean Corpuscular Hgb 24.5 pg (27.0-32.0); Mean Corpuscular Volume 76.5 fL (81-99); Mean Platelet Vol. 8.7 fl (6.2-12.0); Monocyte# 0.04 X10^3/uL; Monocyte% 0.5 % (0-10); NRBC Flagged by Analyzer 0 % (0-5); Neutrophil # 6.89 X10^3/uL (2.7-7.7); Neutrophil % 90.3 % (47-70); Platelet Count 306 K/mm3 (150-450); RBC Distribution Width CV 13.1 % (11.6-14.6); RBC Distribution Width SD 36.5 fl (35.1-43.9); Red Blood Count 4.86 M/mm3 (4.2-5.4); White Blood Count 7.6 K/mm3 (4.4-11.0)
[2019-09-07 13:22] LABS: Anion Gap 8 (5-15); BUN 10 mg/dL (7-18); BUN/Creat Ratio 10.8 RATIO (10-20); Calcium,Total 9.5 mg/dL (8.5-10.1); Chloride 106 mmol/L (98-107); Creatinine, Serum 0.93 mg/dL (0.55-1.02); EST Glomerular Filtration Rate 77 mL/min (>60); Est Glom Filt Rate - Afr Amer 93 mL/min (>60); Estimated Creatinine Clearance 68.57 ml/min; Glucose 200 mg/dL (74-106); Potassium 4.5 mmol/L (3.5-5.1); Sodium Level 138 mmol/L (136-145)
[2019-09-07 14:00] VITALS: BP 122/91; PULSE 86; RESP 17; O2SAT 95
--- NOTE | 2019-09-07 14:09 | ED.DEP ---
ED Disposition - Plan for ED Patient: Instructions: SYNCOPE, Unk Cause Referrals: Barbara Lopez NP-C [Primary Care Provider] - Wendy Peng MD [STAFF PHYSICIAN] -
[2019-09-07 14:25] VITALS: BP 122/91; PULSE 87; RESP 18; O2SAT 95
[2019-09-07] MEDS: Metoclopramide 10 MG/2 ML Vial IV (14:30)
[2019-09-07] MEDS: DiphenhydrAMINE 50 MG/ML Syringe IV (14:30)
--- NOTE | 2019-09-07 14:37 | ED.RN ---
PORT FLUSHED WITH 10 UNITS (5ML) OF HEPARIN
== END 2019-09-07 14:38 | disposition home or self-care (01) ==
LOC: ED 12:00
PROVIDERS: Emergency Provider Emergency Medicine; PCP Nurse Practitioner Family
DX: R07.89 Other chest pain (principal); R55 Syncope and collapse; D68.51 Activated protein C resistance; F41.9 Anxiety disorder, unspecified; Z79.02 Long term (current) use of antithrombotics/antiplatelets; Z79.899 Other long term (current) drug therapy
CPT/HCPCS: 36591; 70450; 80048; 84484; 85025; 96361; 96374; 96375; J7030; A4216

== ENCOUNTER 2019-09-08 19:58 | Emergency (ER) | payer MEDICAID, SELFPAY ==
[2019-09-07 11:02] VITALS: BMI 41.5
[2019-09-08 19:59] VITALS: BP 122/90; PULSE 109; RESP 16; TEMP 36.8; O2SAT 96; BMI 43.4
[2019-09-08 20:13] VITALS: BP 140/102; PULSE 105; RESP 18; O2SAT 97
--- NOTE | 2019-09-08 20:23 | EKG12_ITS ---
Test Reason : CP Blood Pressure : / mmHG Vent. Rate : 097 BPM Atrial Rate : 097 BPM P-R Int : 154 ms QRS Dur : 086 ms QT Int : 358 ms P-R-T Axes : 036 010 029 degrees QTc Int : 454 ms Normal sinus rhythm Possible Left atrial enlargement Left ventricular hypertrophy Abnormal ECG Confirmed by LIZ ALBARRAN ([id number]), story editor CAMI EMERY ([id number]) on 09/09/2019 2:57:38 PM Referred By: KATYA Confirmed By:LIZ ALBARRAN
--- NOTE | 2019-09-08 20:27 | RAD_ITS ---
HISTORY: RETURNS FOR PERSISTENT CHEST PAIN, HERE YESTERDAY FOR SAME. PT STATES PAIN IS RADIATING TO LEFT SHOULDER NOW, HAS LOOP RECORDER EXAM: XR Chest 1 View: COMPARISON: August 25, 2019 FINDINGS: # of images incl. paperwork: 1 Loop recorder is present superimposed over the inferior aspect of the heart in the left hemidiaphragm. Left IJ single-lumen port catheter tip continues terminates superimposed Lungs are clear. Heart is not enlarged. No acute osseous pathology perceived. Pulmonary vascularity is distinct. No effusions. RAD/Chest 1 View (Portable) IMPRESSION: No significant change. The port catheter tip is likely at the right atrial SVC junction. The Loop recorder remains in place over the heart.. at 2119 Reported and signed by: Heath Mckeon MD Electronically Signed: Heath Mckeon MD at 21:18 EST Tel , Service support ,
[2019-09-08 20:36] VITALS: O2SAT 98
[2019-09-08 20:37] LABS: Absolute Lymphocyte Count 3.66 X10^3/uL (0.83-4.51); Absolute Neutrophil Count 3.2 X10^3/uL (2.0-7.7); Basophil# 0.04 X10^3/uL; Basophil% 0.5 % (0-1); Eosinophils% 1.3 % (0-5); Hematocrit 37.6 % (37-47); Hemoglobin 11.8 g/dL (12.0-15.0); Lymphocyte # 3.66 X10^3/ul (4.0); Lymphocyte % 49.2 % (19-41); Mean Corp Hgb Conc 31.4 g/dL (32-36); Mean Corpuscular Hgb 24.7 pg (27.0-32.0); Mean Corpuscular Volume 78.7 fL (81-99); Mean Platelet Vol. 8.4 fl (6.2-12.0); Monocyte# 0.43 X10^3/uL; Monocyte% 5.8 % (0-10); NRBC Flagged by Analyzer 0 % (0-5); Neutrophil # 3.19 X10^3/uL (2.7-7.7); Neutrophil % 42.9 % (47-70); Platelet Count 291 K/mm3 (150-450); RBC Distribution Width CV 13.3 % (11.6-14.6); RBC Distribution Width SD 38.2 fl (35.1-43.9); Red Blood Count 4.78 M/mm3 (4.2-5.4); White Blood Count 7.4 K/mm3 (4.4-11.0)
[2019-09-08] MEDS: 0.9% Normal Saline 1,000 ML 1000 ML IV (20:37)
[2019-09-08] MEDS: Ketorolac 30 MG/ML Syringe IV (20:37)
[2019-09-08 20:57] LABS: Anion Gap 5 (5-15); BUN 15 mg/dL (7-18); BUN/Creat Ratio 18.6 RATIO (10-20); Calcium,Total 8.7 mg/dL (8.5-10.1); Chloride 111 mmol/L (98-107); Creatinine, Serum 0.81 mg/dL (0.55-1.02); EST Glomerular Filtration Rate 90 mL/min (>60); Est Glom Filt Rate - Afr Amer 109 mL/min (>60); Estimated Creatinine Clearance 78.72 ml/min; Glucose 110 mg/dL (74-106); Sodium Level 142 mmol/L (136-145)
[2019-09-08] MEDS: Metoclopramide 10 MG/2 ML Vial IV (20:58)
[2019-09-08] MEDS: DiphenhydrAMINE 50 MG/ML Syringe 25 MG IV (20:58)
--- NOTE | 2019-09-08 21:12 | ED.VISSUMM ---
- ER Visit Summary Date of Service: 09/08/19 Chief Complaint: Chest pain History of Present Illness: The patient is a [address] Kent. 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 Fernandes at [facility]. She states that she has chest pain that is substernal radiates into her back that began 3 days ago. Is been continuous since that time. She describes it as crushing. It is 8 out of 10 currently and at worst. Is worsened by breathing or laying flat. Is relieved by nothing. She is been nauseated and short of breath. She denies any vomiting or diaphoresis. She denies any fever, chills, or cough. Physical Examination: Vitals: Stable. Afebrile. General: Well-nourished and well-developed. Head: Normocephalic atraumatic. Neck: Supple, no lymphadenopathy. No JVD. Nontender. Cardiovascular: Regular rate and rhythm. No murmurs. Respiratory: No respiratory distress. Clear to auscultation bilaterally. Abdominal: Soft, nontender, nondistended, normal bowel sounds. No guarding, rebound, or peritoneal signs. Back: Nontender. Extremities: Nontender, no edema. Skin: Normal color, no rash. Neurologic: Alert and oriented ?3. Cranial nerves II through XII are intact. Normal strength and sensation. Psych: Normal affect. Test Results: EKG is sinus at [address] changes. Is unchanged from yesterday. Troponin is negative. Chem-7 shows a chloride 111 and glucose 110. CBC shows a hemoglobin of 11.8, segmented neutrophils of 43, lymphocytes 49. Clinical Impression(s) from Imaging Studies Chest X-Ray 09/08/19 20:27 IMPRESSION: No significant change. The port catheter tip is likely at the right atrial SVC junction. The Loop recorder remains in place over the heart.. at 2119 Reported and signed by: Heath Mckeon MD Electronically Signed: Heath Mckeon MD at 21:18 EST Tel , Service support , Emergency Department Course and Treatment: Patient has had multiple extensive evaluations for that this week. She is had multiple rounds of troponins that are negative despite constant pain. She had a CTA of the chest that does not show a PE. She is already on Xarelto. She is asking for opiate-based medications. I do not think that is in her best interest. She was given Toradol, Reglan, and Benadryl IV. She does not appear to be in any discomfort. Treatment Plan: Patient will be discharged instructions to follow-up with her sales recruiting coordinator for further evaluation and treatment. Disposition: To home in improved and stable condition. Impression: 1. Atypical chest pain. This note was generated with [employer] dictation software. It may contain incorrect words, spelling, and punctuation that were not noted in review of the chart prior to signing ED Disposition - Plan for ED Patient: Disposition: Home or Assisted Living Instructions: CHEST PAIN, Uncertain Cause Referrals: Barbara Lopez NP-C [Primary Care Provider] - 3-5 Days
[2019-09-08 21:43] VITALS: BP 140/72; PULSE 95; RESP 16; O2SAT 98
[2019-09-08 21:45] VITALS: BP 140/72; PULSE 95; RESP 16; O2SAT 98
== END 2019-09-08 21:53 | disposition home or self-care (01) ==
LOC: ED 20:37
PROVIDERS: Emergency Provider Emergency Medicine; PCP Nurse Practitioner Family
DX: R07.89 Other chest pain (principal); D68.51 Activated protein C resistance; Z86.718 Personal history of other venous thrombosis and embolism; Z86.711 Personal history of pulmonary embolism; Z79.02 Long term (current) use of antithrombotics/antiplatelets
CPT/HCPCS: 71045; 80048; 84484; 85025; 93005; 96361; 96374; 96375; 99284; J7030; A4216

== ENCOUNTER 2019-09-11 08:42 | Emergency (ER) | payer MEDICAID, SELFPAY ==
[2019-09-11 08:44] VITALS: BP 113/85; PULSE 127; RESP 17; TEMP 37.1; O2SAT 93; BMI 42.5
--- NOTE | 2019-09-11 08:54 | US_ITS ---
STUDY: ULTRASOUND TRANSVAGINAL CLINICAL: Female, 29 years old. SHARP MID RT ABD PAIN X 1 DAY -- HX OF OV CYSTS AND KINEY STONES -- HX OF LEFT OOPHORECTOMY 2015, C SECTION 2015, AND TUBAL LIGATION 2015 TECHNIQUE: Transvaginal COMPARISON: None. FINDINGS: Normal uterine size measuring 8.9 x 5 x 4.5 cm in maximal craniocaudal dimension. Myometrial fibroid measuring 1.2 x 0.8 x 1.2 cm. Normal endometrial thickness measuring 8 mm. There are no endometrial masses, and there is no fluid in the endometrial cavity. Normal uterine cervix. Normal right ovary, measuring 3.2 x 2.2 x 2.5 cm. There are multiple follicles without a dominant cyst. Normal blood flow. Status post left oophorectomy. There is no free fluid in the pelvis. US/Transvaginal Non- IMPRESSION: Negative for right ovarian torsion. Status post left oophorectomy. Unremarkable uterus with small fibroid Electronically Signed: Rikki John DO at 11:10 EST Tel , Service support ,
--- NOTE | 2019-09-11 08:54 | ED.VIS.GEN ---
History of Present Illness Chief Complaint: Abd Pain Informant: Patient Onset: Today Current Severity: Moderate Maximum Severity: Moderate Narrative: Patient reports waking early this morning with sharp mid right abdominal pain. She denies nausea or vomiting. She does have a history of ovarian cyst that she states was diagnosed a month and a half ago. Last menstrual cycle was just over a week ago. Patient did take Tylenol prior to arrival. Prior history is reviewed. Patient is a history of factor V Leiden and prior PE. She is on Xarelto. Patient is had multiple visits to the emergency room over the past week for chest pain and back pain. These work-ups were unremarkable. - Past Medical History (1) Factor V Leiden Status: Chronic (2) Pulmonary embolus, right Status: Chronic Past Medical History - Allergies and Home Meds Allergies/Adverse Reactions: Allergies furosemide [From Lasix] Allergy (Verified 09/11/19 08:43) Hives metformin Allergy (Verified 09/11/19 08:43) Unknown HIGH LACTIC ACID LEVELS ondansetron [From Zofran] Allergy (Verified 09/11/19 08:43) Hives propranolol Allergy (Verified 09/11/19 08:43) Angioedema sumatriptan [From Imitrex] Allergy (Verified 09/11/19 08:43) Other CHEST PAIN HEART ATTACK SYMPTOMS metoclopramide [From Reglan] Adverse Reaction (Verified 09/11/19 08:43) Other NEEDS BENADRYL WITH MED TO TOLERATTE prochlorperazine [From Compazine] Adverse Reaction (Verified 09/11/19 08:43) Other AGIATION Primary Care Physician: Barbara Lopez NP-C [Primary Care Provider] - Prior records reviewed: Yes Surgical History: - - , tubal ligation, left ovary removed Smoking Status: Never smoker Review of Systems General: Denies: Chills, Fever Eyes: Denies: Visual changes - bilaterally ENT: Denies: Bilateral ear pain Cardiovascular: Denies: Chest pain Respiratory: Denies: Dyspnea, Cough Gastrointestinal: Reports: Abdominal pain. Denies: Vomiting, Diarrhea Genitourinary: Denies: Dysuria, Hematuria Musculoskeletal: Denies: Extremity Pain Skin: Denies: Rash Neurological: Denies: Headache Hematologic: Denies: Easy bruising, Easy bleeding Allergy: Denies: Uticaria Physical Exam Vital Signs/Narrative: Vital Signs Temp Pulse Resp BP Pulse Ox 09/11/19 08:44 98.8 F 127 H 17 113/85 H 93 Inital Vital Signs reviewed: Yes General: Well nourished, Well developed Head: Normocephalic ENT: Moist mucous membranes Neck: Supple Cardiovascular: Regular rhythm, Tachycardia Respiratory: No distress, CTA bilaterally Abdomen: Soft, Tender - Right lower quadrant greater than right upper quadrant., Hypoactive bowel sounds. Negative for: Guarding, Rebound tenderness Skin: Normal color Neurological: Alert, Oriented x3 Psychological: Normal affect Diagnostic/Tx/Re-eval 09/11/19 08:54 Transvaginal Non- [US] Stat Ultrasound called me with her ultrasound findings. She has 2 cysts noted on the right ovary, each measuring approximate 2 cm in diameter. There is no evidence of torsion. Laboratory Results 09/11/19 09/11/19 09/11/19 09:18 09:18 09:18 WBC 8.6 RBC 4.87 Hgb 12.1 Hct 38.0 MCV 78.0 L MCH 24.8 L MCHC 31.8 L RDW Std Deviation 38.5 RDW Coeff of Millie 13.5 Plt Count 297 MPV 8.9 Immature Gran % (Auto) 0.200 Neut % (Auto) 72.5 H Lymph % (Auto) 22.2 [place] % (Auto) 3.4 Eos % (Auto) 1.4 Baso % (Auto) 0.3 Absolute Neuts (auto) 6.3 Absolute Lymphs (auto) 1.92 Nucleated RBC % 0 Sodium 138 Potassium 4.3 Chloride 108 H Carbon Dioxide 25.0 Anion Gap 5 BUN 18 Creatinine 0.98 Estim Creat Clear Calc 65.07 Est GFR (MDRD) Af Amer 88 Est GFR (MDRD) Non-Af 73 BUN/Creatinine Ratio 18.5 Glucose 190 H Calcium 8.9 Serum , Qual NEGATIVE Urine Color Urine Clarity Urine pH Ur Specific Tram Urine Protein Urine Glucose (UA) Urine Ketones Urine Occult Blood Urine Nitrite Urine Bilirubin Urine Urobilinogen Ur Leukocyte Esterase Urine RBC Urine WBC Ur Squamous Epith Cells Urine Bacteria Urine Mucus 09/11/19 09:18 WBC RBC Hgb Hct MCV MCH MCHC RDW Std Deviation RDW Coeff of Milile Plt Count MPV Immature Gran % (Auto) Neut % (Auto) Lymph % (Auto) [place] % (Auto) Eos % (Auto) Baso % (Auto) Absolute Neuts (auto) Absolute Lymphs (auto) Nucleated RBC % Sodium Potassium Chloride Carbon Dioxide Anion Gap BUN Creatinine Estim Creat Clear Calc Est GFR (MDRD) Af Amer Est GFR (MDRD) Non-Af BUN/Creatinine Ratio Glucose Calcium Serum , Qual Urine Color Yellow Urine Clarity Cloudy Urine pH 6.5 Ur Specific Tram 1.020 Urine Protein 30 H Urine Glucose (UA) Normal Urine Ketones 5 H Urine Occult Blood 10 H Urine Nitrite Negative Urine Bilirubin Negative Urine Urobilinogen Normal Ur Leukocyte Esterase 500 H Urine RBC 0-5 SEEN Urine WBC 5-10 SEEN Ur Squamous Epith Cells 0-5 SEEN Urine Bacteria 2+ Urine Mucus 0 SEEN - Medical Decision Making Patient was given morphine, Phenergan, IV fluids. On repeat evaluation she is resting comfortably. She still complains of pain and nausea. I did do an oars report. She was given 10 tabs of Ultram a few days ago, but should be out by now if taken as prescribed. She will be given a prescription for 10 tabs of Ultram, Phenergan, and 3 days of Bactrim for her urine. She is referred to follow-up with her PLEAT PATTERN[employer]KER, Dr. Mustafa. ED Disposition - Plan for ED Patient: Disposition: Home or Assisted Living Diagnosis: Ovarian cyst, UTI (urinary tract infection) Instructions: Ovarian Cyst, Bladder Infection, Female (Adult) Prescriptions: Smz/Tmp Ds [Bactrim Ds] 1 tab PO BID #6 tab Transmission Status: Pending to [facility] proMETHazine tablet [Phenergan] 25 mg PO Q6H PRN PRN #10 tab PRN Reason: Nausea Transmission Status: Pending to [facility] traMADol [Ultram] 50 mg PO Q4H PRN PRN 3 Days #10 tablet PRN Reason: Pain Transmission Status: Sent to [facility] Referrals: Barbara Lopez NP-C [Primary Care Provider] - Additional Instructions: Follow-up with Dr Mustafa as soon as possible.
[2019-09-11 09:29] LABS: Mucous, Urine 0 SEEN /hpf (<or=2+)
[2019-09-11 09:30] LABS: Absolute Lymphocyte Count 1.92 X10^3/uL (0.83-4.51); Absolute Neutrophil Count 6.3 X10^3/uL (2.0-7.7); Basophil# 0.03 X10^3/uL; Basophil% 0.3 % (0-1); Eosinophil# 0.12 X10^3/uL; Eosinophils% 1.4 % (0-5); Hemoglobin 12.1 g/dL (12.0-15.0); Lymphocyte # 1.92 X10^3/ul (4.0); Lymphocyte % 22.2 % (19-41); Mean Corp Hgb Conc 31.8 g/dL (32-36); Mean Corpuscular Hgb 24.8 pg (27.0-32.0); Mean Platelet Vol. 8.9 fl (6.2-12.0); Monocyte# 0.29 X10^3/uL; Monocyte% 3.4 % (0-10); NRBC Flagged by Analyzer 0 % (0-5); Neutrophil # 6.25 X10^3/uL (2.7-7.7); Neutrophil % 72.5 % (47-70); Platelet Count 297 K/mm3 (150-450); RBC Distribution Width CV 13.5 % (11.6-14.6); RBC Distribution Width SD 38.5 fl (35.1-43.9); Red Blood Count 4.87 M/mm3 (4.2-5.4); White Blood Count 8.6 K/mm3 (4.4-11.0)
[2019-09-11 09:32] LABS: Color, Urine Yellow (Yellow); Glucose, Dipstick Normal (Normal); Ketone-Dipstick 5 mg/dl (Negative); Leukocyte Esterase-Dipstick 500 /ul (Negative); Nitrite-Dipstick Negative (Negative); Occult Blood-Urine 10 /ul (Negative); Protein-Dipstick 30 mg/dl (Negative); Urine Bilirubin Dipstick Negative (Negative); Urine Clarity Cloudy (Clear); Urine Urobilinogen Normal (Normal); Urine pH 6.5 (5.0 - 8.0)
[2019-09-11 09:43] LABS: Anion Gap 5 (5-15); BUN 18 mg/dL (7-18); BUN/Creat Ratio 18.5 RATIO (10-20); Calcium,Total 8.9 mg/dL (8.5-10.1); Chloride 108 mmol/L (98-107); Creatinine, Serum 0.98 mg/dL (0.55-1.02); EST Glomerular Filtration Rate 73 mL/min (>60); Est Glom Filt Rate - Afr Amer 88 mL/min (>60); Estimated Creatinine Clearance 65.07 ml/min; Glucose 190 mg/dL (74-106); Potassium 4.3 mmol/L (3.5-5.1); Sodium Level 138 mmol/L (136-145)
[2019-09-11] MEDS: Morphine 4 MG/ML Syringe IV (09:43)
[2019-09-11] MEDS: 0.9% Normal Saline 1,000 ML 150 ML IV (09:43)
[2019-09-11] MEDS: proMETHazine 25 MG/ML Syringe 12.5 MG IV (09:43)
[2019-09-11 09:45] LABS: Internal QC Validated? YES +Cl - CLEAR BKGD; Pregnancy, Serum, hCG Quali. NEGATIVE Negative
[2019-09-11 09:46] LABS: Bacteria 2+ /hpf (None Seen); Red Blood Cells-Urine 0-5 SEEN /hpf (0-5); Squamous Epithelial Cells - UA 0-5 SEEN /hpf (5-10); White Blood Cells 5-10 SEEN /hpf (0-5)
[2019-09-11 10:44] VITALS: RESP 17
[2019-09-11] MEDS: proMETHazine 25 MG Tablet 12.5 MG PO (10:52)
[2019-09-11] MEDS: traMADol 50 MG Tablet PO (10:52)
[2019-09-11] MEDS: Smz/Tmp Ds Tablet 1 TABLET PO (10:52)
[2019-09-11 10:59] VITALS: PULSE 107; RESP 19; O2SAT 96
[2019-09-11 11:00] VITALS: BP 111/71; TEMP 36.9
== END 2019-09-11 11:02 | disposition home or self-care (01) ==
PROVIDERS: Emergency Provider Emergency Medicine; PCP Nurse Practitioner Family
DX: N39.0 Urinary tract infection, site not specified (principal); N83.201 Unspecified ovarian cyst, right side; D68.51 Activated protein C resistance; Z86.711 Personal history of pulmonary embolism; Z79.02 Long term (current) use of antithrombotics/antiplatelets
CPT/HCPCS: 36591; 76830; 80048; 81001; 84703; 85025; 93976; 96361; 96374; 96375; 96376; 99283; J7030; A4216

== ENCOUNTER 2019-09-12 04:03 | Emergency (ER) | payer MEDICAID, SELFPAY ==
[2019-09-11 08:44] VITALS: BMI 42.5
[2019-09-12 04:04] VITALS: BP 145/81; PULSE 111; RESP 16; TEMP 36.6; O2SAT 97; BMI 41.5
[2019-09-12] MEDS: Ketorolac 15 MG/ML Vial IV (04:42)
--- NOTE | 2019-09-12 05:13 | ED.RN ---
I CALLED LAB TO DRAW HER BLOOD.
[2019-09-12] MEDS: Metoclopramide 10 MG/2 ML Vial 5 MG IV (05:16)
[2019-09-12] MEDS: DiphenhydrAMINE 50 MG/ML Syringe 12.5 MG IV ×2 (05:16→06:43)
[2019-09-12] MEDS: 0.9% Normal Saline 1,000 ML 999 ML IV (05:16)
--- NOTE | 2019-09-12 05:32 | ED.RN ---
THIS NURSE CHARTED THE PORT ACCESS BUT IT DOES NOT SHOW IN THE IV ACESS AREA. PORT IN THE LEFT UPPER CHEST ACCESSED BY THIS NURSE USING A 1 INCH POWER PORT KIT, FLUSHED WELL, NO BLOOD RETURN.
[2019-09-12 05:33] LABS: Absolute Lymphocyte Count 2.75 X10^3/uL (0.83-4.51); Basophil# 0.03 X10^3/uL; Basophil% 0.4 % (0-1); Eosinophil# 0.15 X10^3/uL; Eosinophils% 1.8 % (0-5); Hematocrit 34.6 % (37-47); Hemoglobin 11.1 g/dL (12.0-15.0); Lymphocyte # 2.75 X10^3/ul (4.0); Lymphocyte % 32.4 % (19-41); Mean Corp Hgb Conc 32.1 g/dL (32-36); Mean Corpuscular Hgb 24.8 pg (27.0-32.0); Mean Corpuscular Volume 77.2 fL (81-99); Mean Platelet Vol. 8.7 fl (6.2-12.0); Monocyte# 0.49 X10^3/uL; Monocyte% 5.8 % (0-10); NRBC Flagged by Analyzer 0 % (0-5); Neutrophil # 5.04 X10^3/uL (2.7-7.7); Neutrophil % 59.2 % (47-70); Platelet Count 280 K/mm3 (150-450); RBC Distribution Width CV 13.7 % (11.6-14.6); RBC Distribution Width SD 38.6 fl (35.1-43.9); Red Blood Count 4.48 M/mm3 (4.2-5.4); White Blood Count 8.5 K/mm3 (4.4-11.0)
[2019-09-12 05:47] LABS: Anion Gap 7 (5-15); BUN 19 mg/dL (7-18); BUN/Creat Ratio 23.9 RATIO (10-20); Calcium,Total 8.7 mg/dL (8.5-10.1); Chloride 107 mmol/L (98-107); EST Glomerular Filtration Rate 92 mL/min (>60); Est Glom Filt Rate - Afr Amer 111 mL/min (>60); Estimated Creatinine Clearance 79.71 ml/min; Glucose 122 mg/dL (74-106); Potassium 4.1 mmol/L (3.5-5.1); Sodium Level 138 mmol/L (136-145)
--- NOTE | 2019-09-12 05:57 | ED.DCSUM_ITS ---
History of Present Illness Chief Complaint: Abd Pain Narrative: Patient presenting for evaluation secondary to abdominal pain. Patient reports that she has a underlying history of a past ovarian torsion with a left nephrectomy. Patient states that she was seen here yesterday for pelvic pain and was diagnosed as having a ovarian cyst and was discharged with a course of tramadol. Patient reports that this morning she woke up with a sudden onset of right-sided pelvic pain. She reports it to be severe worse with palpation associated with some nausea but no vomiting. She denies any diarrhea dysuria or hematuria. Patient is concerned about the possibility of ovarian torsion. She denies any vaginal bleeding or discharge at this time. Review of systems otherwise negative. Past Medical History - Allergies and Home Meds Allergies/Adverse Reactions: Allergies furosemide [From Lasix] Allergy (Verified 09/11/19 08:43) Hives metformin Allergy (Verified 09/11/19 08:43) Unknown HIGH LACTIC ACID LEVELS ondansetron [From Zofran] Allergy (Verified 09/11/19 08:43) Hives propranolol Allergy (Verified 09/11/19 08:43) Angioedema sumatriptan [From Imitrex] Allergy (Verified 09/11/19 08:43) Other CHEST PAIN HEART ATTACK SYMPTOMS metoclopramide [From Reglan] Adverse Reaction (Verified 09/11/19 08:43) Other NEEDS BENADRYL WITH MED TO TOLERATTE prochlorperazine [From Compazine] Adverse Reaction (Verified 09/11/19 08:43) Other AGIATION Primary Care Physician: Barbara Lopez NP-C [Primary Care Provider] - Past Medical History: - - Past history of ovarian torsion Surgical History: - - , tubal ligation, left ovary removed Smoking Status: Never smoker Review of Systems All systems negative except as indicated General: Denies: Chills, Fever, Sweats Eyes: Denies: Visual changes - bilaterally, Diplopia ENT: Denies: Rhinorrhea, Sore throat Cardiovascular: Denies: Chest pain, Palpitations Respiratory: Denies: Dyspnea, Cough, Dyspnea on exertion Gastrointestinal: Reports: Abdominal pain, Nausea Genitourinary: Denies: Dysuria, Hematuria, Frequency Musculoskeletal: Denies: Back pain, Extremity Pain Skin: Denies: Rash, Wounds Neurological: Denies: Headache, Weakness, Numbness Physical Exam Vital Signs/Narrative: Vital Signs Temp Pulse Resp BP Pulse Ox 09/12/19 04:04 97.8 F 111 H 16 145/81 H 97 Inital Vital Signs reviewed: Yes General: Well nourished, Well developed, No Acute Distress Head: Normocephalic, Atraumatic Eyes: Perrl, EOMI ENT: Moist mucous membranes, No rhinorrhea Neck: Supple, Nontender Cardiovascular: Regular rate, Regular rhythm, No murmurs Respiratory: No distress, CTA bilaterally, Chest nontender Abdomen: Soft, Nondistended, Normal bowel sounds, Tender - Left hemipelvis tenderness to palpation with no guarding or rebound tenderness noted Back: Nontender, Normal Inspection Extremities: Nontender, No edema Skin: Normal color, No rash Neurological: Alert, Oriented x3, Cranial nerves II-XII grossly intact, Normal Strength, Normal Sensation Psychological: Normal affect, Normal Mood Diagnostic/Tx/Re-eval - Medical Decision Making Patient presented secondary to pelvic pain. I reviewed the patient's records, her ultrasound within the last 24 hours showed good blood flow and a normal- sized ovary, and actually showed no evidence of ovarian cysts showed some small follicles with no evidence of any dominant cysts per the radiology read. I reviewed the patient's prescription reporting record, and she has had 63 narcotic scripts from 31 different providers with 9 pharmacies. She also has had multiple emergency department visits with 7 of which being in the last month. I do not feel that the patient requires repeat imaging at this time. We did access her port, patient was given Phenergan Reglan Benadryl and fluids. CBC demonstrates no evidence of leukocytosis or shift. Chemistry was found to be unremarkable. Patient's maintains a benign abdomen on multiple repeat evaluations. At this point I believe the patient is safe and appropriate for discharge. This does not seem to be a presentation of ovarian torsion, appendicitis, or other surgical pathology. 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 Mustafa ED Disposition - Plan for ED Patient: Disposition: Home or Assisted Living Diagnosis: Pelvic pain Instructions: PELVIC PAIN, Unknown Cause Additional Instructions: Followup with Dr Moon CARLIN
[2019-09-12] MEDS: Metoclopramide 10 MG/2 ML Vial 2.5 MG IV (06:43)
[2019-09-12] MEDS: Acetaminophen 500 MG Tablet 1000 MG PO (06:44)
== END 2019-09-12 06:51 | disposition home or self-care (01) ==
PROVIDERS: Emergency Provider Emergency Medicine; PCP Nurse Practitioner Family
DX: R10.2 Pelvic and perineal pain (principal)
CPT/HCPCS: 36415; 80048; 85025; 96361; 96374; 96375; 96376; J7030; A4216

== ENCOUNTER 2019-09-14 03:22 | Emergency (ER) | payer MEDICAID, SELFPAY ==
[2019-09-14 03:23] VITALS: BP 143/87; PULSE 116; RESP 14; TEMP 36.8; O2SAT 96; BMI 46.0
--- NOTE | 2019-09-14 04:03 | CT_ITS ---
STUDY: CTA CHEST REASON FOR EXAM: Female, 29 years old. Chest pain. Back to 5 widening. RADIATION DOSAGE (If Supplied By Facility): CTDIvol = ( 12.63 ) mGy, DLP = ( 456.11 ) mGycm TECHNIQUE: The examination was performed with the intravenous administration of 100mL Isovue 370. Post-processing of the angiographic images was performed, with MIP reconstructed images. Individualized dose optimization techniques were used for this CT. COMPARISON: CTA Chest 09/07/2019.. FINDINGS: Left-sided port, unchanged. Heart and great vessels: No apparent pneumothorax. Respiratory motion creates artifactual irregularity of segmental and subsegmental pulmonary artery branches which are subsequently not optimally evaluated. No thoracic aortic dissection or aneurysm. Normal heart size. No evidence of right heart strain. Lungs, pleura: No pneumonia, edema, or acute abnormality in the lungs. No pleural effusion. No pneumothorax. Mild dependent atelectasis posteriorly. Mediastinum: No adenopathy or mass or hematoma. Osseous:No fracture or acute osseous abnormality. Chest wall: No concerning findings. Cardiac monitoring device in the left breast medial subcutaneous fat. Upper abdomen: Prior cholecystectomy. CT/CTA Chest W/WO Contrast IMPRESSION: No apparent pneumothorax. Respiratory motion creates artifactual irregularity of segmental and subsegmental pulmonary artery branches which are subsequently not optimally evaluated. No acute findings. Electronically Signed: Babar Jacobson, at 7:22 EST Tel , Service support ,
--- NOTE | 2019-09-14 04:03 | EKG12_ITS ---
Test Reason : DYSRHYTHMIA Blood Pressure : / mmHG Vent. Rate : 127 BPM Atrial Rate : 127 BPM P-R Int : 154 ms QRS Dur : 086 ms QT Int : 308 ms P-R-T Axes : 041 020 021 degrees QTc Int : 447 ms Sinus tachycardia Nonspecific T-wave abnormality Confirmed by TRINITY HOLLIS, RAFAEL ([id number]), marketing editor CAMI EMERY ([id number]) on 09/16/2019 1:25:03 PM Referred By: BB Confirmed By:RAFAEL PETERSEN MD
--- NOTE | 2019-09-14 04:05 | CT_ITS ---
STUDY: CT BRAIN WITHOUT CONTRAST REASON FOR EXAM: Female, 29 years old. SYNCOPE WHILE USING THE RESTROOM, POSSIBLE HIT HEAD, HX FACTOR 5 WITH POWER PORT AND LOOP RECORDER RADIATION DOSAGE (If Supplied By Facility): CTDIvol = ( 44.99 ) mGy, DLP = ( 796.11 ) mGycm TECHNIQUE: Transaxial CT imaging of the brain was performed without administration of intravenous contrast material. Individualized dose optimization techniques were used for this CT. COMPARISON: CT scan of the brain 09/07/2019. FINDINGS: Normal soft tissue structures. Normal calvarium. 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 Normal size ventricles and extra-axial spaces for the patient''s age. Normal white matter tracts of the cerebral hemispheres. Normal basal ganglia and thalami. Normal brainstem. Normal cerebellum. There is no intracranial hemorrhage. There are no findings of an acute ischemic infarction. Normal visualized paranasal sinuses. CT/Brain/Head without Contrast IMPRESSION: Normal unenhanced CT scan of the brain. Electronically Signed: Jamel Eugene MD at 6:47 EST , Service support ,
--- NOTE | 2019-09-14 04:05 | ED.VIS.CHEST ---
History of Present Illness Chief Complaint: Head Injury Detail of Chief Complaint: chest pain, syncope, head injury Informant: Patient, EMS Onset: Hours - 1 Quality: Pressure Location: Substernal Current Severity: Severe Maximum Severity: Severe Worsened By: Breathing Relieved By: Nothing Associated Symptoms: Dyspnea. Negative for: Nausea, Vomiting, Diaphoresis, Cough, Palpitations Narrative: Patient states she woke up with crushing pressure chest discomfort couple hours prior to arrival. She laid there for a little while and then started feeling nauseated, so she got up to go to the bathroom, felt lightheaded and then passed out, woke up next to the toilet with terrible throbbing headache and soreness in her forehead like she hit her head on the toilet. She had urinary incontinence associated with her syncopal episode apparently as well. She states she has had stomach flu this past week for a couple days, that she thinks she got from her daughter who had it before her, she is better now but this resulted in her missing 3 or 4 straight days of her Xarelto because she could not keep it down. She is on it for pulmonary emboli. She states she has been diagnosed with 7 of them in the past, and has factor V Leiden. She also has an anxiety disorder and states she commonly gets chest discomfort with her anxiety and with pulmonary emboli, oftentimes she can tell the difference, she thinks this feels more like a pulmonary embolus. She had a CTA of her chest 1 week ago and it was negative for pulmonary embolus. She also states that although it is 4 in the morning, her doctor and patient safety officer should be contacted because they will want her transferred to [facility], which is where all of her outpatient care is given. She also has a loop recorder for multiple syncopal episodes in the past. This is her 6th visit here in the past week, once or twice before for the same symptoms and story/events. - Past Medical History (1) Factor V Leiden Status: Chronic (2) Pulmonary embolus, right Status: Chronic (3) Anxiety Status: Chronic (4) MDD (major depressive disorder) Status: Chronic (5) PTSD (post-traumatic stress disorder) Status: Chronic Past Medical History - Allergies and Home Meds Allergies/Adverse Reactions: Allergies furosemide [From Lasix] Allergy (Verified 09/14/19 03:27) Hives Iodinated Contrast Media Allergy (Verified 09/14/19 04:08) Hives metformin Allergy (Verified 09/14/19 03:27) Unknown HIGH LACTIC ACID LEVELS ondansetron [From Zofran] Allergy (Verified 09/14/19 03:27) Hives propranolol Allergy (Verified 09/14/19 03:27) Angioedema sumatriptan [From Imitrex] Allergy (Verified 09/14/19 03:27) Other CHEST PAIN HEART ATTACK SYMPTOMS ketorolac [From Toradol] Adverse Reaction (Verified 09/14/19 03:27) Hives metoclopramide [From Reglan] Adverse Reaction (Verified 09/14/19 03:27) Other NEEDS BENADRYL WITH MED TO TOLERATTE prochlorperazine [From Compazine] Adverse Reaction (Verified 09/14/19 03:27) Other AGIATION Primary Care Physician: Barbara Lopez NP-C [Primary Care Provider] - Surgical History: - - , tubal ligation, left ovary removed Lives: - - recently moved to [place] Smoking Status: Never smoker Review of Systems General: Denies: Chills, Fever, Sweats Eyes: Denies: Visual changes - bilaterally, Diplopia ENT: Denies: Rhinorrhea, Sore throat Cardiovascular: Reports: Chest pain. Denies: Palpitations Respiratory: Reports: Dyspnea. Denies: Cough, Dyspnea on exertion Gastrointestinal: Reports: Nausea. Denies: Abdominal pain, Vomiting, Diarrhea, Melena, Hematochezia Genitourinary: Denies: Dysuria, Hematuria, Frequency Musculoskeletal: Denies: Back pain, Swelling, Extremity Pain Skin: Denies: Rash, Wounds Neurological: Reports: Headache. Denies: Weakness, Numbness Physical Exam Vital Signs/Narrative: Vital Signs Temp Pulse Resp BP Pulse Ox 09/14/19 03:23 98.2 F 116 H 14 143/87 H 96 Inital Vital Signs reviewed: Yes General: Well nourished, Well developed, No Acute Distress Head: Normocephalic, Trauma - with tenderness right forehead/frontal scalp; no crepitance/depression/hematoma. Eyes: Perrl, EOMI ENT: Moist mucous membranes, No rhinorrhea, TM's clear - no HT or otorrhea, - - no tyler sign or raccoon eyes. Negative for: Nasal congestion, Sinus tenderness Neck: Supple, Nontender Cardiovascular: Regular rate, Regular rhythm, No murmurs, Tachycardia Respiratory: No distress, CTA bilaterally, Chest nontender Abdomen: Soft, Nontender, Nondistended, Normal bowel sounds Back: Nontender, Normal Inspection Extremities: Nontender, No edema. Negative for: Calf Tenderness Skin: Normal color, No rash, No Trauma Neurological: Alert, Oriented x3, Cranial nerves II-XII grossly intact, Normal Strength, Normal Sensation, - - GCS 15 Psychological: Normal affect, Normal Mood Diagnostic/Tx/Re-eval Impressions Chest CTA 09/14/19 04:03 IMPRESSION: No apparent pneumothorax. Respiratory motion creates artifactual irregularity of segmental and subsegmental pulmonary artery branches which are subsequently not optimally evaluated. No acute findings. Electronically Signed: Babar Jacobson at 7:22 EST Tel , Service support , Brain CT 09/14/19 04:05 IMPRESSION: Normal unenhanced CT scan of the brain. Electronically Signed: Jamel Eugene MD at 6:47 EST , Service support , 09/14/19 04:03 CTA Chest W/WO Contrast [CT] Stat 09/14/19 04:05 CT Brain [Brain/Head without Contrast] [CT] Stat Laboratory Results 09/14/19 09/14/19 09/14/19 04:40 04:40 04:40 WBC 6.3 RBC 4.29 Hgb 10.6 L Hct 33.5 L MCV 78.1 L MCH 24.7 L MCHC 31.6 L RDW Std Deviation 39.3 RDW Coeff of Millie 13.7 Plt Count 267 MPV 8.7 Immature Gran % (Auto) 0.300 Neut % (Auto) 62.6 Lymph % (Auto) 28.5 [place] % (Auto) 6.2 Eos % (Auto) 2.1 Baso % (Auto) 0.3 Absolute Neuts (auto) 3.9 Absolute Lymphs (auto) 1.79 Nucleated RBC % 0 APTT 32.1 Sodium 139 Potassium 4.0 Chloride 107 Carbon Dioxide 23.0 Anion Gap 9 BUN 14 Creatinine 0.78 Estim Creat Clear Calc 81.75 Est GFR (MDRD) Af Amer 114 Est GFR (MDRD) Non-Af 94 BUN/Creatinine Ratio 17.9 Glucose 204 H Calcium 8.6 Troponin I < 0.015 - Rhythm Strip Rhythm Strip: Sinus Tach Rate: 120 Ectopy: None - EKG Initial EKG Interpretation: No Acute Injury Pattern, Sinus Tachycardia, - - no S1Q3T3 pattern Prior: Unchanged - Medical Decision Making Patient was given Phenergan and morphine for her symptoms. She was also given IV fluids, Solu-Medrol, and Benadryl due to a history of reactions with IV dye prior to getting CT angiography. She asked for something more for pain before going to CT. I was in the middle of another patient's procedure, so audio technician came to get her. She was able to lay for the CT head, but refused to lay further for the CT angiography of the chest until I get pain medication. I had a discussion with the patient because although we are happy to treat her, we do not appreciate being given demands. Since she is having so much difficulty lying flat, I suggest this may be her esophagus and not a pulmonary embolus. Her response to that is this is what my PE did in the past. I asked her if she wanted something specific, she just wants to feel better, but she refuses to lie down for the CTA feeling like she does now. She appears well clinically and vital signs are stable, her resting tachycardia has improved with IV fluids. I ordered her additional doses of Phenergan and morphine. Patient states she sees Dr. Richmond Murillo, cardiology with . I discussed with 1 of his colleagues who looked up some records on this patient, she has never been seen as an outpatient with their offices, only once as an inpatient this past year in which she had her loop recorder device read, there were no history of any dysrhythmias or acute myocardial events. She was dubbed as having atypical chest pain and had a negative echocardiogram. Cardiology confirms that she does not need to be transferred there at this time. She can have her loop recorder device checked remotely, and follow-up as an outpatient. Furthermore, she looked up recent records in the system, the patient was admitted to a psychiatric facility in [facility] for refractory major depressive disorder and suicidal ideation and was discharged to a homeless custodial. The patient also asked that I speak with her PCP Dr. Mullins, which I did. He agrees the patient does not need to be admitted or transferred at this time, and also can follow up as an outpatient. The patient is asking for more analgesics. She is comfortable and I do not think she needs more narcotic analgesic. Given the fact that she continues to focus on getting pain medications, and has had 6 ED visits in the past week with similar issues on the past visits and in [place] OAS report showing multiple narcotic prescribers in the past 12 months, she will be referred to social work for the possibility of developing a care plan for future emergency visits. Paralleling this, I am not comfortable prescribing her any narcotics at this time and she will be discharged from the emergency department in stable condition. I offered the patient a GI cocktail which she declined. ED Disposition - Plan for ED Patient: Disposition: Home or Assisted Living Diagnosis: Atypical chest pain, Nausea, Anxiety Instructions: CHEST PAIN, NonCardiac Referrals: Barbara Lopez, FREDO-C [Primary Care Provider] - As soon as possible (or your PCP dr. Mullins) Additional Instructions: According to Dr. Murillo's office, you can have your loop recorder telemetry checked remotely.
[2019-09-14] MEDS: 0.9% Normal Saline 1,000 ML 1000 ML IV (04:36)
[2019-09-14] MEDS: Morphine 4 MG/ML Syringe IV ×2 (04:38→06:07)
[2019-09-14] MEDS: proMETHazine 25 MG/ML Syringe 12.5 MG IV ×2 (04:38→06:04)
[2019-09-14] MEDS: DiphenhydrAMINE 50 MG/ML Syringe 25 MG IV (04:44)
[2019-09-14] MEDS: MethylPREDNISolone 125 MG/2 ML Vial IV (04:45)
[2019-09-14 04:52] LABS: Absolute Lymphocyte Count 1.79 X10^3/uL (0.83-4.51); Absolute Neutrophil Count 3.9 X10^3/uL (2.0-7.7); Basophil# 0.02 X10^3/uL; Basophil% 0.3 % (0-1); Eosinophil# 0.13 X10^3/uL; Eosinophils% 2.1 % (0-5); Hematocrit 33.5 % (37-47); Hemoglobin 10.6 g/dL (12.0-15.0); Lymphocyte # 1.79 X10^3/ul (4.0); Lymphocyte % 28.5 % (19-41); Mean Corp Hgb Conc 31.6 g/dL (32-36); Mean Corpuscular Hgb 24.7 pg (27.0-32.0); Mean Corpuscular Volume 78.1 fL (81-99); Mean Platelet Vol. 8.7 fl (6.2-12.0); Monocyte# 0.39 X10^3/uL; Monocyte% 6.2 % (0-10); NRBC Flagged by Analyzer 0 % (0-5); Neutrophil # 3.92 X10^3/uL (2.7-7.7); Neutrophil % 62.6 % (47-70); Platelet Count 267 K/mm3 (150-450); RBC Distribution Width CV 13.7 % (11.6-14.6); RBC Distribution Width SD 39.3 fl (35.1-43.9); Red Blood Count 4.29 M/mm3 (4.2-5.4); White Blood Count 6.3 K/mm3 (4.4-11.0)
[2019-09-14 05:04] LABS: Partial Thromboplast Time 32.1 Seconds (24.1-36.2)
[2019-09-14 06:00] VITALS: BP 143/86; O2SAT 97
[2019-09-14 06:11] LABS: Anion Gap 9 (5-15); BUN 14 mg/dL (7-18); BUN/Creat Ratio 17.9 RATIO (10-20); Calcium,Total 8.6 mg/dL (8.5-10.1); Chloride 107 mmol/L (98-107); Creatinine, Serum 0.78 mg/dL (0.55-1.02); EST Glomerular Filtration Rate 94 mL/min (>60); Est Glom Filt Rate - Afr Amer 114 mL/min (>60); Estimated Creatinine Clearance 81.75 ml/min; Glucose 204 mg/dL (74-106); Sodium Level 139 mmol/L (136-145)
[2019-09-14 07:24] VITALS: BP 134/66; PULSE 120; RESP 18; O2SAT 96
--- NOTE | 2019-09-14 07:27 | ED.RN ---
PT REQUESTING ICE CHIPS. INFORMED WAITING ON CT RESULTS. PT THEN ASKING FOR PAIN AND NAUSEA MED. INFORMED DR. MARTINEZ RECOMENDS PT SNIFF ETOH PAD TO HELP WITH NAUSEA.
[2019-09-14] MEDS: Metoclopramide 10 MG/2 ML Vial 5 MG IV (08:04)
[2019-09-14] MEDS: DiphenhydrAMINE 50 MG/ML Syringe 12.5 MG IV (08:06)
[2019-09-14 08:40] VITALS: BP 125/80; PULSE 110; RESP 18; O2SAT 92
== END 2019-09-14 08:47 | disposition home or self-care (01) ==
PROVIDERS: Emergency Provider Emergency Medicine; PCP Nurse Practitioner Family
DX: R07.89 Other chest pain (principal); F43.10 Post-traumatic stress disorder, unspecified; R11.0 Nausea; D68.51 Activated protein C resistance; F32.9 Major depressive disorder, single episode, unspecified; Z79.02 Long term (current) use of antithrombotics/antiplatelets; Z86.711 Personal history of pulmonary embolism; Z79.899 Other long term (current) drug therapy
CPT/HCPCS: 36591; 70450; 71275; 80048; 84484; 85025; 85730; 93005; 96361; 96374; 96375; 96376; 99285; J7030; Q9967; A4216

== ENCOUNTER 2019-09-18 10:25 | Emergency (ER) | payer MEDICAID, SELFPAY ==
[2019-09-18 10:26] VITALS: BP 112/77; PULSE 129; RESP 18; TEMP 36.6; O2SAT 100; BMI 43.4
--- NOTE | 2019-09-18 11:19 | ED.DCSUM_ITS ---
History of Present Illness Chief Complaint: Headache Informant: Patient Onset: Days Context: Sudden Timing: Continuous Quality: Similar Prior Headaches, Throbbing Associated Symptoms: Nausea, Preceding Aura, Photophobia. Negative for: Numbness Narrative: Patient is a 29-year-old female with history of migraine headaches presenting with a migraine headache. She states is on the right side of her head. It feels like her prior headaches. 3 days ago it woke her up from sleep. She has some flashers in her eyes and pink floaters which is typical of her aura associa hernan with her headaches. She is on Topamax and Depakote at baseline for her headaches. Patient states her neurologist is at , Dr. Montoya. She states she has had to be admitted to the hospital before for intractable migraines. She states she is allergic to NSAIDs as well as triptans. She is on Xarelto for a history of factor V Leiden and PE. Patient had a head CT that was -1-month ago because of a concussion. Patient denies any weakness, speech changes or trouble walking. She states his headache does feel like her prior migraines. She has been trying to take oral Phenergan at home with no relief because she is also having nausea and vomiting. She states she normally gets IV fluids, Norflex, Reglan, Benadryl and sometimes Dilaudid. She denies any other complaints at this time. Past Medical History - Allergies and Home Meds Allergies/Adverse Reactions: Allergies furosemide [From Lasix] Allergy (Verified 09/18/19 10:30) Hives Iodinated Contrast Media Allergy (Verified 09/18/19 10:30) Hives metformin Allergy (Verified 09/18/19 10:30) Unknown HIGH LACTIC ACID LEVELS ondansetron [From Zofran] Allergy (Verified 09/18/19 10:30) Hives propranolol Allergy (Verified 09/18/19 10:30) Angioedema sumatriptan [From Imitrex] Allergy (Verified 09/18/19 10:30) Other CHEST PAIN HEART ATTACK SYMPTOMS ketorolac [From Toradol] Adverse Reaction (Verified 09/18/19 10:30) Hives metoclopramide [From Reglan] Adverse Reaction (Verified 09/18/19 10:30) Other NEEDS BENADRYL WITH MED TO TOLERATTE prochlorperazine [From Compazine] Adverse Reaction (Verified 09/18/19 10:30) Other AGIATION Primary Care Physician: Barbara Lopez NP-C [Primary Care Provider] - Past Medical History: - - Migraine headaches, history of PE, factor V Leiden Surgical History: noncontributory, - - , tubal ligation, left ovary removed Smoking Status: Never smoker Review of Systems General: Denies: Chills, Fever, Sweats Eyes: Denies: Visual changes - bilaterally, Diplopia ENT: Denies: Rhinorrhea, Sore throat Cardiovascular: Denies: Chest pain, Palpitations Respiratory: Denies: Dyspnea, Cough, Dyspnea on exertion Gastrointestinal: Reports: Nausea, Vomiting. Denies: Abdominal pain, Diarrhea, Melena, Hematochezia Genitourinary: Denies: Dysuria, Hematuria, Frequency Musculoskeletal: Denies: Back pain, Extremity Pain Skin: Denies: Rash, Wounds Neurological: Reports: Headache. Denies: Weakness, Parasthesia, Numbness Physical Exam Vital Signs/Narrative: Vital Signs Temp Pulse Resp BP Pulse Ox 09/18/19 10:26 97.8 F 129 H 18 112/77 100 Inital Vital Signs reviewed: Yes General: Well nourished, Well developed, Obese Head: NC, AT Eyes: Perrl, EOMI, - - Mildly dilated pupils, however equally reactive?patient states this is chronic for her and has been evaluated by ophthalmology ENT: Moist mucous membranes, No rhinorrhea, TM's clear. Negative for: Nasal congestion, Sinus tenderness Neck: Supple, No Lymphadenopathy, No JVD, Nontender, No Meningismus. Negative for: Paraspinal Tenderness Cardiovascular: Regular rate, Regular rhythm, No murmurs Respiratory: No distress, CTA bilaterally, Chest nontender Abdomen: Soft, Nontender, Nondistended, Normal bowel sounds Back: Nontender, Normal Inspection Extremities: Nontender, No edema Skin: Normal color, No rash Neuro: Alert, Oriented x3, Cranial nerves II-XII grossly intact, Normal Strength, Normal Sensation, Normal DTR, Normal Gait, - - Normal coordination. Negative for: Weakness, Left side facial droop, Right side facial droop, Abnormal Gait Psychological: Normal affect Diagnostic/Tx/Re-eval - Medical Decision Making Patient is evaluated for recurrent migraine. Patient states she follows with Dr. Montoya. She is given a migraine cocktail including Reglan, Benadryl and fluids. She does not have improvement of her symptoms so she is then given Solu-Medrol. I put a call out to her neurologist who states that he has not seen her for 2 years and patient frequents multiple ER stating that she follows with him. He also states that patient tends to have drug-seeking behavior and will request opioids as well as ketamine. He states he has never prescribed her ketamine. He also states he does not recommend opioids for migraine headaches. Patient states that she does follow with him when I confronted her with this information. She then states she sees a different neurologist, Dr. Stinson. I called this neurologist office and was told that patient has not been to that practice in about 2 years as well. Patient now states that she just wants to leave. As patient has a normal neurologic exam I am comfortable discharging her. I am concerned that patient is displaying some drug-seeking behavior as her story keeps changing and is not consistent with other medical technician assistant. In addition patient's neurologist has reported multiple ER visits for similar complaints. Patient is counseled that opioids are not indicated for migraine headaches and can cause worsening rebound headaches. Patient is instructed to follow-up with her primary care doctor. I did touch base with patient's PCP group who states that she was actually dismissed from their practice at the end of last month. I did refill her migraine medications but refused to refill any more opioids. ED Disposition - Plan for ED Patient: Disposition: Home or Assisted Living Diagnosis: Headache Instructions: HEADACHE, Unspecified Referrals: Barbara Lopez NP-C [Primary Care Provider] -
[2019-09-18] MEDS: Orphenadrine 100 MG Tablet PO (11:51)
[2019-09-18] MEDS: Metoclopramide 10 MG/2 ML Vial IV (11:51)
[2019-09-18] MEDS: 0.9% Normal Saline 1,000 ML 999 ML IV (11:51)
[2019-09-18] MEDS: DiphenhydrAMINE 50 MG/ML Syringe IV (11:51)
--- NOTE | 2019-09-18 12:50 | NURSING ---
PAGED DR Gerson OLIVER, NEUROLOGY, [phone]
[2019-09-18] MEDS: MethylPREDNISolone 125 MG/2 ML Vial IV (12:54)
--- NOTE | 2019-09-18 13:18 | NURSING ---
CALLING DR DWAYNE ALFARO [phone]
[2019-09-18] MEDS: 0.9% Saline Lock 10 ML Syringe IV (13:53)
--- NOTE | 2019-09-18 13:56 | ED.RN ---
1354 port flushed and heparin 50units given post 2 flushes. pt tolerated removal well. unable to chart as unverified by pharmacy
[2019-09-18 13:58] VITALS: BP 122/76; PULSE 98; RESP 16; O2SAT 99
== END 2019-09-18 13:56 | disposition home or self-care (01) ==
PROVIDERS: Emergency Provider Emergency Medicine; PCP Nurse Practitioner Family
DX: R51 Headache (principal); D68.51 Activated protein C resistance; Z76.5 Malingerer [conscious simulation]; Z79.02 Long term (current) use of antithrombotics/antiplatelets; Z79.899 Other long term (current) drug therapy
CPT/HCPCS: 96361; 96374; 96375; 99284; A4216

== ENCOUNTER 2019-09-23 20:03 | Emergency (ER) | payer MEDICAID, SELFPAY ==
[2019-09-23 20:04] VITALS: BP 127/76; PULSE 116; RESP 18; TEMP 36.4; O2SAT 94; BMI 43.9
--- NOTE | 2019-09-23 21:57 | ED.RN ---
PT ARRIVED TO ED COMPLAINING OF BACK PAIN AND LOSS OF BLADDER CONTROL. PT WAS EVALUATED BY ED DR AND ORDERS WERE PLACED. PT WAS ORDERED TYLENOL FOR PAIN CONTROL. PT WAS INFORMED BY ED DR THAT TYLENOL WOULD BE ALL SHE WOULD BE ORDERED FOR PAIN UNTIL CLINICAL FINDS WERE MADE. PT THEN REQUEST SOMETHING DIFFERENT TO HELP HER STAY STILL IN CT SCAN. SHE WAS INSTRUCTED THAT TYLENOL WAS ALL THAT WAS ORDERED. PT THEN REFUSED HER EKG. I EXPLAINED THE REASONING FOR THE TEST AT WHICH POINT SHE STATED I WILL TRY AND GET TO MY [facility]. SHE THEN LEFT ED WITHOUT DISCHARGE AND REFUSED ANY FURTHER TESTING. CASE MANAGEMENT CONSULTED. Meeta HENRIQUEZ, RN [id number]
--- NOTE | 2019-09-24 14:35 | ED.DCSUM_ITS ---
- ER Visit Summary Date of Service: 09/24/19 Chief Complaint: Back pain History of Present Illness: The patient is a 29 F who reports that her primary care physician is in [place] at . She states that yesterday she was lightheaded and fell onto her back. She had a loss of consciousness for a brief minute. She states that she has a sharp back pain that is diffuse. It is 10 out of 10 at worst 9-10 currently. Is worsened by movement relieved by Tylenol minimally. She denies any groin numbness. She reports that she has tingling in the medial side of her legs from her hips down bilaterally. She reports that she was incontinent of urine today. She denies any problems with her bowels. She denies any groin numbness. States that her last MRI was approximately 2 months ago at . Patient is on Xarelto and has factor V Leiden. She denies any other injuries. Physical Examination: Vitals: Stable. Afebrile. Neck: No vertebral tenderness. Full ROM without difficulty. Cleared by NEXUS criteria. Back: No contusion, soft tissue swelling, or ecchymosis to her back despite the fact that she is on Xarelto. There is also no erythema. She has moderate tenderness palpation for the mid thoracic spine all the way through the lumbar spine and the paraspinous muscular bilaterally. Negative straight leg raise bilaterally. 5-5 dorsiflexion, plantarflexion, extensor hallucis longus bilaterally. Normal sensation to light touch throughout 2+ dorsalis pedis pulse bilaterally. General: A&O x 3. NAD. Cardiovascular exam: Regular rate and rhythm, no murmur, rub or gallop. Respiratory exam: Chest nontender. No crepitus. Clear to auscultation bilaterally. No wheezes or stridor. Abdominal exam: Soft, nontender, nondistended, normal bowel sounds. No pain in RUQ or LUQ specifically. No peritoneal signs. Extremity: Atraumatic. No pain with range of motion. Test Results: Patient refused an EKG. She also left prior to a CT of the head. Emergency Department Course and Treatment: Patient clearly has opiate seeking behavior. She Gann states that she took Tylenol 2 hours ago. I discussed her that I will only give her opiate-based medications if I find objective evidence of injury. Shortly thereafter she walked out of the emergency department without any difficulty. Treatment Plan: Patient is in the process of having a care plan established. She should not receive any opiate-based medications in the emergency department unless there is objective sign of injury. She clearly has drug-seeking behavior. Disposition: Left prior to completion of treatment. Impression: 1. Fall. 2. Head injury with loss of consciousness. 3. Back pain. 4. Coagulopathy on Xarelto. 5. Opiate seeking behavior. 6. Left prior to completion of treatment. This note was generated with [employer] dictation software. It may contain incorrect words, spelling, and punctuation that were not noted in review of the chart prior to signing ED Disposition - Plan for ED Patient: Disposition: Home or Assisted Living Referrals: Barbara Lopez NP-C [Primary Care Provider] -
== END 2019-09-23 21:57 | disposition home or self-care (01) ==
LOC: ED 21:11
PROVIDERS: Emergency Provider Emergency Medicine; PCP Nurse Practitioner Family
DX: S06.9X9A Unspecified intracranial injury with loss of consciousness of unspecified duration, initial encounter (principal); M54.5 Low back pain; M54.6 Pain in thoracic spine; D68.51 Activated protein C resistance; Z76.5 Malingerer [conscious simulation]; Z86.718 Personal history of other venous thrombosis and embolism; Z86.711 Personal history of pulmonary embolism; Z79.02 Long term (current) use of antithrombotics/antiplatelets; W18.30XA Fall on same level, unspecified, initial encounter; Y93.89 Activity, other specified; Y92.89 Other specified places as the place of occurrence of the external cause; Y99.8 Other external cause status
CPT/HCPCS: 99281

== ENCOUNTER 2019-09-25 12:04 | Emergency (ER) | payer MEDICAID, SELFPAY ==
[2019-09-25 12:05] VITALS: BP 120/59; PULSE 108; RESP 16; TEMP 36.4; O2SAT 95; BMI 44.2
--- NOTE | 2019-09-25 12:38 | CT_ITS ---
STUDY: CT BRAIN WITHOUT CONTRAST REASON FOR EXAM: Female, 29 years old. SYNCOPE/FALL RADIATION DOSAGE (If Supplied By Facility): CTDIvol = ( 44.99 ) mGy, DLP = ( 796.11 ) mGycm TECHNIQUE: Transaxial CT imaging of the brain was performed without administration of intravenous contrast material. Individualized dose optimization techniques were used for this CT. COMPARISON: 09/14/2019 FINDINGS: Normal soft tissue structures. Normal calvarium. Normal size ventricles and extra-axial spaces for the patient''s age. Normal white matter tracts of the cerebral hemispheres. Normal basal ganglia and thalami. Normal brainstem. Normal cerebellum. There is no intracranial hemorrhage. There are no findings of an acute ischemic infarction. Normal visualized paranasal sinuses. CT/Brain/Head without Contrast IMPRESSION: Normal unenhanced CT scan of the brain. Electronically Signed: Frantz Kaur MD at 14:38 EDT Tel , Service support ,
--- NOTE | 2019-09-25 12:38 | CT_ITS ---
STUDY: CT ABDOMEN AND PELVIS WITHOUT CONTRAST REASON FOR EXAM: Female, 29 years old. ABDOMINAL PAIN WITH PRIOR GB,TUBAL LIGATION AND RADIATION DOSAGE (If Supplied By Facility): CTDIvol = ( 21.46 ) mGy, DLP = ( 1120.47 ) mGycm TECHNIQUE: Transaxial images were obtained from the dome of the diaphragm to the symphysis pubis without oral contrast, and without intravenous contrast. Sagittal and coronal images were reconstructed. Individualized dose optimization techniques were used for this CT. COMPARISON: None. FINDINGS: Small bilateral pleural effusions. The visualized portions of the heart are within normal limits. There is decreased attenuation of the liver consistent with steatosis. There are surgical clips in the gallbladder fossa consistent with a prior cholecystectomy. Normal spleen. Normal pancreas. Normal bilateral adrenal glands. Normal right kidney. Normal left kidney. Normal visualized stomach. Normal small intestine. Normal colon. The appendix is visualized and appears normal. Normal abdominal aorta. Normal inferior vena cava. Normal retroperitoneum. Normal urinary bladder. Normal abdominal wall. Normal osseous structures. CT/Abdomen/Pelvis without Cont IMPRESSION: 1. Small bilateral pleural effusions. 2. Status post cholecystectomy with fatty infiltration of the liver. 3. No other acute abnormality. Electronically Signed: Frantz Kaur MD at 14:34 EDT Tel , Service support ,
--- NOTE | 2019-09-25 12:41 | RAD_ITS ---
STUDY: X-RAY CHEST REASON FOR EXAM: Female, 29 years old. SYNCOPE, FALL YESTERDAY, HX PE TECHNIQUE: Single AP portable view of the chest. COMPARISON: Comparison is made with prior examination dated September 08, 2019. FINDINGS: A left-sided portacatheter is seen with the tip in the right atrium. This is unchanged. A loop recording device is seen overlying the left lower thorax. The lungs are clear and expanded. There is no demonstrated pleural abnormality. Normal size heart. Normal mediastinum and teja. Normal visualized pulmonary arteries. Normal visualized aortic arch and descending thoracic aorta. Normal visualized thoracic spine. Normal visualized ribs, clavicles, and shoulders. There is no demonstrated abnormality of the visualized soft tissue structures of the upper abdomen. RAD/Chest 1 View (Portable) IMPRESSION: No acute abnormality is seen. Electronically Signed: Abdulaziz Chicas, at 12:59 EDT , Service support ,
[2019-09-25] MEDS: Morphine 4 MG/ML Syringe IV (13:10)
[2019-09-25] MEDS: 0.9% Normal Saline 1,000 ML 1000 ML IV (13:10)
[2019-09-25 13:41] LABS: ALB/GLOB Ratio 0.8 RATIO (0.9-2.4); AST(SGOT) 11 U/L (15-37); Alanine Aminotransfer ALT/SGPT 22 U/L (13-56); Albumin, Serum 2.8 g/dL (3.2-5.0); Alkaline Phosphatase 102 U/L (45-117); Anion Gap 6 (5-15); BUN 12 mg/dL (7-18); BUN/Creat Ratio 16.8 RATIO (10-20); Calcium,Total 8.5 mg/dL (8.5-10.1); Chloride 107 mmol/L (98-107); Creatinine, Serum 0.72 mg/dL (0.55-1.02); EST Glomerular Filtration Rate 104 mL/min (>60); Est Glom Filt Rate - Afr Amer 125 mL/min (>60); Estimated Creatinine Clearance 88.56 ml/min; Globulin 3.7 g/dL (2.2-4.2); Glucose 185 mg/dL (74-106); Lipase 146 U/L (73-393); Potassium 4.4 mmol/L (3.5-5.1); Protein, Total 6.5 g/dL (6.4-8.2); Sodium Level 137 mmol/L (136-145)
--- NOTE | 2019-09-25 13:44 | ED.DCSUM_ITS ---
- ER Visit Summary Date of Service: 09/25/19 Chief Complaint: Syncope History of Present Illness: The patient is a 29 F who had a syncopal episode 2 days ago. She is unsure why she had syncope. She has a history of syncope. She wears a loop recorder, but they have been unable to identify a cause there. Nothing preceded her syncopal episode. She was not having pain or any symptoms. She did fall and hit her right head. She also has right side abdominal pain and is unsure if this is related to the fall or not. She has a history of PE and factor V Leiden. She takes Xarelto. She has been taking it regularly without missing doses. She is not having chest pain, shortness of breath, cough, hemoptysis. She had some right side abdominal pain in the past with an ovarian cyst. She has some nausea and vomiting, but denies any other GI symptoms. 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 Physical Examination: Afebrile and vital signs unremarkable except for heart rate of 108. Head and neck are atraumatic. HEENT exam normal. Heart regular. Lungs clear. Right lower quadrant tender to palpation. No guarding or rebound. Skin appears normal. Cranial nerves grossly intact. Normal strength and sensation. Normal gait. Test Results: EKG, labs, chest x-ray, CT brain, CT abdomen pending. Emergency Department Course and Treatment: Patient was placed on a monitor. Treated with fluids and morphine. Waiting for results as above. CT brain was unremarkable. CT abdomen showed bilateral small pleural effusions and postoperative changes. Appendix normal and otherwise the scan was unremarkable. EKG showed sinus rhythm at a rate of 86. Hemoglobin 10.9, stable. CHEM panel normal. Lipase normal. Urine normal. Troponin normal. hCG negative. Patient's work-up was unremarkable. No indication for further diagnostic testing. Patient will follow syncope precautions. Follow-up with her doctor. Treatment Plan: As above Disposition: Discharge Impression: Syncope Right lower quadrant pain This note was generated with [employer] dictation software. It may contain incorrect words, spelling, and punctuation that were not noted in review of the chart prior to signing ED Disposition - Plan for ED Patient: Referrals: Barbara Lopez NP-C [Primary Care Provider] -
[2019-09-25 13:52] LABS: Bacteria 0 SEEN /hpf (None Seen); Mucous, Urine 0 SEEN /hpf (<or=2+); Red Blood Cells-Urine 0 SEEN /hpf (0-5)
[2019-09-25 13:53] LABS: Absolute Lymphocyte Count 1.87 X10^3/uL (0.83-4.51); Absolute Neutrophil Count 3.5 X10^3/uL (2.0-7.7); Basophil# 0.02 X10^3/uL; Basophil% 0.3 % (0-1); Eosinophil# 0.12 X10^3/uL; Hematocrit 34.6 % (37-47); Hemoglobin 10.9 g/dL (12.0-15.0); Lymphocyte # 1.87 X10^3/ul (4.0); Lymphocyte % 31.9 % (19-41); Mean Corp Hgb Conc 31.5 g/dL (32-36); Mean Corpuscular Hgb 24.8 pg (27.0-32.0); Mean Corpuscular Volume 78.8 fL (81-99); Mean Platelet Vol. 9.2 fl (6.2-12.0); Monocyte# 0.33 X10^3/uL; Monocyte% 5.6 % (0-10); NRBC Flagged by Analyzer 0 % (0-5); Neutrophil # 3.51 X10^3/uL (2.7-7.7); Neutrophil % 59.9 % (47-70); Platelet Count 289 K/mm3 (150-450); RBC Distribution Width CV 14.7 % (11.6-14.6); RBC Distribution Width SD 41.9 fl (35.1-43.9); Red Blood Count 4.39 M/mm3 (4.2-5.4); White Blood Count 5.9 K/mm3 (4.4-11.0)
[2019-09-25 13:57] LABS: Color, Urine Yellow (Yellow); Glucose, Dipstick 50 mg/dl (Normal); Ketone-Dipstick Negative (Negative); Leukocyte Esterase-Dipstick 25 /ul (Negative); Nitrite-Dipstick Negative (Negative); Occult Blood-Urine Negative /ul (Negative); Protein-Dipstick Negative (Negative); Urine Bilirubin Dipstick Negative (Negative); Urine Clarity Sl. Cloudy (Clear); Urine Urobilinogen Normal (Normal); Urine pH 6.5 (5.0 - 8.0)
[2019-09-25 14:07] LABS: Internal QC Validated? YES +Cl - CLEAR BKGD; Pregnancy, Serum, hCG Quali. NEGATIVE Negative
[2019-09-25 14:28] LABS: Squamous Epithelial Cells - UA 0-5 SEEN /hpf (5-10); White Blood Cells 0-5 SEEN /hpf (0-5)
--- NOTE | 2019-09-25 14:34 | EKG12_ITS ---
Test Reason : Blood Pressure : / mmHG Vent. Rate : 086 BPM Atrial Rate : 086 BPM P-R Int : 164 ms QRS Dur : 088 ms QT Int : 382 ms P-R-T Axes : 022 011 021 degrees QTc Int : 457 ms Normal sinus rhythm Normal ECG Confirmed by ADRIANA HOLLIS, KAYLYNN ([id number]), web editor CAMI EMERY ([id number]) on 09/28/2019 1:47:08 PM Referred By: JAZMYN Confirmed By:CODEY WRIGHT MD
[2019-09-25 14:43] VITALS: BP 138/89; PULSE 87; RESP 16; O2SAT 99
[2019-09-25] MEDS: proMETHazine 25 MG/ML Syringe 6.25 MG IV (14:43)
--- NOTE | 2019-09-25 15:22 | ED.DEP ---
ED Disposition - Plan for ED Patient: Instructions: SYNCOPE, Unk Cause Referrals: Barbara Lopez NP-C [Primary Care Provider] -
[2019-09-25] MEDS: DiphenhydrAMINE 25 MG Capsule PO (15:31)
[2019-09-25] MEDS: HYDROcodone Bitartrate/Apap 5/325 Tablet PO (15:31)
--- NOTE | 2019-09-25 15:37 | NURSING ---
PATIENT STATED SHE DOES NOT HAVE HEPARIN PUT INTO PORT PRIOR TO D/C
--- NOTE | 2019-09-28 14:06 | CM.ED ---
SOCIAL WORK CALL TO PATIENT TO UPDATE ON APPROVED ED CARE PLAN. UNABLE TO LEAVE MESSAGE. SW WILL FOLLOW UP WITH PATIENT UPON NEXT VISIT IF ABLE. COPY OF ED CARE PLAN AND RESOURCES MAILED TO PATIENT VIA CERTIFIED MAIL. CALL TO [facility]S OFFICE. PER MEDIA PLANNER, PATIENT WAS DISMISSED FROM PRIMARY CARE ON 09/09/2019. MARQUIS MCHUGH, CONSTRUCTION COST ESTIMATOR.
== END 2019-09-25 15:33 | disposition home or self-care (01) ==
LOC: ED 12:46
PROVIDERS: Emergency Provider Emergency Medicine; PCP Nurse Practitioner Family
DX: R55 Syncope and collapse (principal); R10.31 Right lower quadrant pain; D68.51 Activated protein C resistance; Z86.711 Personal history of pulmonary embolism; Z79.02 Long term (current) use of antithrombotics/antiplatelets
CPT/HCPCS: 70450; 71045; 74176; 80053; 81001; 83690; 84484; 84703; 85025; 93005; 96361; 96374; 96375; 99282; J7030; A4216

== ENCOUNTER 2019-10-05 11:32 | Emergency (ER) | payer MEDICAID, SELFPAY ==
[2019-10-05 11:33] VITALS: BP 121/75; PULSE 113; RESP 16; TEMP 37.1; O2SAT 94; BMI 41.5
--- NOTE | 2019-10-05 12:05 | CT_ITS ---
STUDY: CT ABDOMEN AND PELVIS WITHOUT CONTRAST REASON FOR EXAM: Female, 29 years old. Abdominal pain, nausea, vomiting, diarrhea, urinary urgency, hx stones. Prior tubal ligation, left oophorectomy, cholecystectomy. RADIATION DOSAGE (If Supplied By Facility): CTDIvol = ( 23.88 ) mGy, DLP = ( 1348.30 ) mGycm TECHNIQUE: Transaxial images were obtained from the dome of the diaphragm to the symphysis pubis without oral contrast, and without intravenous contrast. Sagittal and coronal images were reconstructed. Individualized dose optimization techniques were used for this CT. COMPARISON: Comparison is made with prior study dated September 25, 2019. FINDINGS: Stable minimal bilateral pleural effusions. The visualized portions of the heart are within normal limits. There is decreased attenuation of the liver consistent with steatosis. There are surgical clips in the gallbladder fossa consistent with a prior cholecystectomy. Normal spleen. Normal pancreas. Normal bilateral adrenal glands. Normal right kidney. Normal left kidney. Normal visualized stomach. Normal small intestine. Normal colon. The appendix is visualized and appears normal. Normal abdominal aorta. Normal inferior vena cava. There is borderline retroperitoneal lymphadenopathy with enlarged nodes no greater than 10mm in the short axis diameter. Normal urinary bladder. Normal abdominal wall. Normal osseous structures. CT/Abdomen/Pelvis without Cont IMPRESSION: Fatty infiltration of the liver. Stable tiny bilateral pleural effusions. Electronically Signed: Abdulaziz Chicas, at 13:27 EDT , Service support ,
--- NOTE | 2019-10-05 12:06 | ED.DCSUM_ITS ---
History of Present Illness Chief Complaint: Abd Pain Informant: Patient Onset: Today Narrative: Worsening upper abdominal pain since awakening this morning with vomiting diarrhea. No hematemesis, melena, hematochezia. History of colitis with similar presentation. History of cholecystectomy, left oophrectomy, . Tubal ligation in the past. Denies fever. Recent antibiotics for treatment of pneumonia in the last 2 weeks for which she stated she was hospitalized at facility for 5 days. There is no interventions. She had IV antibiotics. Denies urinary symptoms. Records reviewed she was started on a care plan 8 days ago for chronic pain symptoms. Reports no opiates unless there is objective findings for symptoms. Explained this to the patient she understands. Prior similar symptoms: Yes Past Medical History - Allergies and Home Meds Allergies/Adverse Reactions: Allergies furosemide [From Lasix] Allergy (Verified 10/05/19 11:33) Hives Iodinated Contrast Media Allergy (Verified 10/05/19 11:33) Hives metformin Allergy (Verified 10/05/19 11:33) Unknown HIGH LACTIC ACID LEVELS ondansetron [From Zofran] Allergy (Verified 10/05/19 11:33) Hives propranolol Allergy (Verified 10/05/19 11:33) Angioedema sumatriptan [From Imitrex] Allergy (Verified 10/05/19 11:33) Other CHEST PAIN HEART ATTACK SYMPTOMS ketorolac [From Toradol] Adverse Reaction (Verified 10/05/19 11:33) Hives metoclopramide [From Reglan] Adverse Reaction (Verified 10/05/19 11:33) Other NEEDS BENADRYL WITH MED TO TOLERATTE prochlorperazine [From Compazine] Adverse Reaction (Verified 10/05/19 11:33) Other AGIATION Primary Care Physician: NOT,DEFINED [NON-STAFF] - Past Medical History: - - Factor V Leiden, PE, migraines, depression Surgical History: noncontributory, cholecystectomy, - - , tubal ligation, left ovary removed Smoking Status: Never smoker Review of Systems General: Denies: Chills, Fever, Sweats Eyes: Denies: Visual changes - bilaterally, Diplopia ENT: Denies: Rhinorrhea, Sore throat Cardiovascular: Denies: Chest pain, Palpitations Respiratory: Denies: Dyspnea, Cough, Dyspnea on exertion Gastrointestinal: Reports: Abdominal pain, Nausea, Vomiting, Diarrhea. Denies: Melena, Hematochezia Genitourinary: Denies: Dysuria, Hematuria, Frequency Musculoskeletal: Denies: Back pain, Extremity Pain Skin: Denies: Rash, Wounds Neurological: Denies: Headache, Weakness, Numbness Physical Exam Vital Signs/Narrative: Vital Signs Temp Pulse Resp BP Pulse Ox 10/05/19 11:33 98.8 F 113 H 16 121/75 H 94 General: Well nourished, Well developed, No Acute Distress Head: Normocephalic, Atraumatic Eyes: Perrl, EOMI ENT: Moist mucous membranes, No rhinorrhea Neck: Supple, Nontender Cardiovascular: Regular rate, Regular rhythm, No murmurs, Tachycardia, - - Heart rate 102. Respiratory: No distress, CTA bilaterally, Chest nontender Abdomen: Soft, Nondistended, Normal bowel sounds, - - Generalized tenderness upper quadrant without guarding or rebound. Back: Nontender, Normal Inspection Extremities: Nontender, No edema Skin: Normal color, No rash Neurological: Alert, Oriented x3, Cranial nerves II-XII grossly intact, Normal Strength, Normal Sensation Psychological: Normal affect, Normal Mood Diagnostic/Tx/Re-eval Clinical Impression(s) from Imaging Studies Abdomen/Pelvis CT 10/05/19 12:05 IMPRESSION: Fatty infiltration of the liver. Stable tiny bilateral pleural effusions. Electronically Signed: Abdulaziz Chicas, at 13:27 EDT , Service support , Abnormal Lab Results 10/05/19 10/05/19 12:50 12:50 WBC 5.1 RBC 4.12 L Hgb 10.1 L Hct 32.5 L MCV 78.9 L MCH 24.5 L MCHC 31.1 L RDW Std Deviation 43.2 RDW Coeff of Millie 15.3 H Plt Count 248 MPV 9.0 Immature Gran % (Auto) 0.200 Neut % (Auto) 64.4 Lymph % (Auto) 25.7 Ward % (Auto) 7.3 Eos % (Auto) 2.0 Baso % (Auto) 0.4 Absolute Neuts (auto) 3.3 Absolute Lymphs (auto) 1.30 Nucleated RBC % 0 Sodium 140 Potassium 3.8 Chloride 107 Carbon Dioxide 22.0 Anion Gap 11 BUN 11 Creatinine 0.77 Estim Creat Clear Calc 82.81 Est GFR (MDRD) Af Amer 116 Est GFR (MDRD) Non-Af 96 BUN/Creatinine Ratio 14.3 Glucose 287 H Calcium 8.5 Total Bilirubin 0.20 AST 9 L ALT 20 Alkaline Phosphatase 112 Total Protein 6.5 Albumin 2.9 L Globulin 3.6 Albumin/Globulin Ratio 0.8 L Lipase 150 - Medical Decision Making Patient nontoxic, generalized tenderness with no guarding or rebound. She is tachycardic on arrival. I discussed that she has a care plan for which she understands. She is treated symptomatically for her nausea and vomiting IV fluids and Phenergan given her abdominal labs were stable urine negative for infection. I did discuss with patient her recent multiple scans and she is concerned for her similar colitis objective work-up would be additional CT scan and risk with radiation she understands and wishes to pursue. Noncontrast scan obtained shows no acute process did not discussed any pelvic etiology on my review there was indeterminate right adnexal structures noted. It was not large, there is no free fluids. I discussed this with the patient, she d iscussed me she was concerned due to having family history ovarian cancer. 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 Meantime she was given Reglan and Benadryl, she request that I do speak with her physician's office Dr. Lester Bhatti, for which I called and spoke with front office. She is known to them. They states that she is he was admitted twice in the last week, 1st for chest pain observations, second was for pneumonia. They state patient travels to hospitals where she knows her physicians division supervisor. Report that she would not be seen as an outpatient. I discussed with them with her concerns I will place an order for an outpatient ultrasound for her pelvis for further evaluation I do not feel emergent ultrasound is required. Results will be faxed to the office. They request that we send work-up and notes from today to their office which patient did consent and will be faxed. She is discharged for prescription for oral Phenergan along with suppository along with Bentyl. All questions were answered. Of note stools were collected however is formed stool, sent for evaluation however less likely C. difficile. ED Disposition - Plan for ED Patient: Disposition: Home or Assisted Living Diagnosis: Abdominal pain, Vomiting, Diarrhea, History of ovarian cyst Instructions: ABDOMINAL PAIN, Unknown Cause, (Female), DIET, Vomiting or Diarrhea [6yr-Adult] Prescriptions: Dicyclomine HCl [Bentyl] 20 mg PO TIDAC #20 cap Transmission Status: Pending to [facility] proMETHazine suppository [Phenergan Suppository] 25 mg RECTAL Q6H PRN PRN #6 suppos. PRN Reason: Nausea Transmission Status: Pending to [facility] proMETHazine tablet [Phenergan] 25 mg PO Q6H PRN PRN #10 tab PRN Reason: Nausea Transmission Status: Pending to [facility] Referrals: NOT,DEFINED [NON-STAFF] - Additional Instructions: Obtain your ultrasound as an outpatient. Follow-up with your doctor. Your records were sent with your consent to your doctor's office.
[2019-10-05] MEDS: 0.9% Normal Saline 1,000 ML 1000 ML IV (12:46)
[2019-10-05] MEDS: proMETHazine 25 MG/ML Syringe 12.5 MG IV (12:47)
[2019-10-05 12:48] VITALS: BP 99/64; PULSE 99; RESP 18; O2SAT 96
[2019-10-05 12:59] LABS: Absolute Neutrophil Count 3.3 X10^3/uL (2.0-7.7); Basophil# 0.02 X10^3/uL; Basophil% 0.4 % (0-1); Hematocrit 32.5 % (37-47); Hemoglobin 10.1 g/dL (12.0-15.0); Lymphocyte % 25.7 % (19-41); Mean Corp Hgb Conc 31.1 g/dL (32-36); Mean Corpuscular Hgb 24.5 pg (27.0-32.0); Mean Corpuscular Volume 78.9 fL (81-99); Monocyte# 0.37 X10^3/uL; Monocyte% 7.3 % (0-10); NRBC Flagged by Analyzer 0 % (0-5); Neutrophil # 3.26 X10^3/uL (2.7-7.7); Neutrophil % 64.4 % (47-70); Platelet Count 248 K/mm3 (150-450); RBC Distribution Width CV 15.3 % (11.6-14.6); RBC Distribution Width SD 43.2 fl (35.1-43.9); Red Blood Count 4.12 M/mm3 (4.2-5.4); White Blood Count 5.1 K/mm3 (4.4-11.0)
[2019-10-05 13:07] LABS: Lipase 150 U/L (73-393)
[2019-10-05 14:18] LABS: ALB/GLOB Ratio 0.8 RATIO (0.9-2.4); AST(SGOT) 9 U/L (15-37); Alanine Aminotransfer ALT/SGPT 20 U/L (13-56); Albumin, Serum 2.9 g/dL (3.2-5.0); Alkaline Phosphatase 112 U/L (45-117); Anion Gap 11 (5-15); BUN 11 mg/dL (7-18); BUN/Creat Ratio 14.3 RATIO (10-20); Calcium,Total 8.5 mg/dL (8.5-10.1); Chloride 107 mmol/L (98-107); Creatinine, Serum 0.77 mg/dL (0.55-1.02); EST Glomerular Filtration Rate 96 mL/min (>60); Est Glom Filt Rate - Afr Amer 116 mL/min (>60); Estimated Creatinine Clearance 82.81 ml/min; Globulin 3.6 g/dL (2.2-4.2); Glucose 287 mg/dL (74-106); Potassium 3.8 mmol/L (3.5-5.1); Protein, Total 6.5 g/dL (6.4-8.2); Sodium Level 140 mmol/L (136-145)
[2019-10-05] MEDS: DiphenhydrAMINE 50 MG/ML Syringe 25 MG IV (14:45)
[2019-10-05] MEDS: Metoclopramide 10 MG/2 ML Vial 5 MG IV (14:46)
[2019-10-05 14:49] VITALS: BP 124/87; PULSE 93; RESP 18; O2SAT 98
[2019-10-05 15:54] VITALS: BP 107/95; PULSE 100; RESP 16; O2SAT 100
--- NOTE | 2019-10-05 15:55 | ED.RN ---
PORT DEACCESSED PER PROTOCOL. DISCHARGE INSTRUCTIONS GIVEN TO AND REVIEWED WITH PATIENT, PATIENT DENIES QUESTIONS OR CONCERNS AND VOICES UNDERSTANDING OF DISCHARGE INSTRUCTIONS. PT AMBULATES OUT OF ROOM WITHOUT DIFFICULTY.
== END 2019-10-05 15:56 | disposition home or self-care (01) ==
PROVIDERS: Emergency Provider Emergency Medicine
DX: R10.10 Upper abdominal pain, unspecified (principal); R19.7 Diarrhea, unspecified; R11.2 Nausea with vomiting, unspecified; N83.209 Unspecified ovarian cyst, unspecified side; D68.51 Activated protein C resistance; F32.9 Major depressive disorder, single episode, unspecified; G43.909 Migraine, unspecified, not intractable, without status migrainosus; K76.0 Fatty (change of) liver, not elsewhere classified; Z86.711 Personal history of pulmonary embolism; Z79.02 Long term (current) use of antithrombotics/antiplatelets; Z79.899 Other long term (current) drug therapy
CPT/HCPCS: 74176; 80053; 83690; 85025; 87493; 87506; 96361; 96374; 96375; 99282; J7030; A4216

== ENCOUNTER 2019-10-08 13:49 | Emergency (ER) | payer MEDICAID, SELFPAY ==
[2019-10-08 13:53] VITALS: BP 141/95; PULSE 80; RESP 17; TEMP 36.9; O2SAT 96; BMI 45.3
[2019-10-08 14:02] VITALS: BP 141/95; PULSE 80; RESP 17; TEMP 36.9; O2SAT 96; O2SAT 98
--- NOTE | 2019-10-08 14:13 | ED.VISSUMM ---
- ER Visit Summary Date of Service: 10/08/19 Chief Complaint: Cough History of Present Illness: The patient is a 29 F of depression, anxiety, PTSD and prior PE for which she is on Xarelto. Patient states she developed a cough since last night with some discomfort. No hemoptysis. No leg pain or swelling. No shortness of breath. Try to get into see her primary care physician due to the current viral outbreak they are closed Physical Examination: Young female no acute distress vital signs stable and afebrile. Pulse ox 96% on room air no signs hypoxia. HEENT exam normal. Neck nontender no JVD no lymphadenopathy. No meningismus. Lungs clear to auscultation bilaterally. Heart regular rhythm no murmur. Abdomen soft nontender. Extremities moves all 4. Calves nontender without edema or cords. Neurologically patient is awake and alert with no focal motor deficits. Test Results: Chest x-ray AP and lateral views read by myself shows no acute abnormality. Normal cardiac silhouette and mediastinum. No infiltrate. Emergency Department Course and Treatment: Clinically the patient has a viral URI. Chest x-ray obtained to rule out pneumonia. I want to discuss the patient's chest x-ray with her. She did not wait to be discharged. Treatment Plan: Fluids and rest. Tylenol and Motrin. Follow-up if not improving. Disposition: Discharge Impression: Acute viral URI This note was generated with [employer] dictation software. It may contain incorrect words, spelling, and punctuation that were not noted in review of the chart prior to signing ED Disposition - Plan for ED Patient: Disposition: Home or Assisted Living Instructions: ED URI Viral Referrals: Town Doctor,Out of [NON-STAFF] - 10-14 Days if not better Additional Instructions: Plenty of fluids and rest. Alternate Tylenol and Motrin for pain Follow-up with your primary care physician if not improving.
--- NOTE | 2019-10-08 14:16 | ED.DEP ---
ED Disposition - Plan for ED Patient: Disposition: Home or Assisted Living Instructions: ED URI Viral Referrals: Town Doctor,Out of [Primary Care Provider] - 10-14 Days if not better Additional Instructions: Plenty of fluids and rest. Alternate Tylenol and Motrin for pain Follow-up with your primary care physician if not improving.
--- NOTE | 2019-10-08 14:20 | RAD_ITS ---
STUDY: X-RAY CHEST REASON FOR EXAM: Female, 29 years old. COUGH, HX PE''s, PORT PLACED 1.5 YRS AGO TECHNIQUE: PA and lateral views of the chest. COMPARISON: Comparison is made with prior study dated September 25, 2019. FINDINGS: A left-sided portacatheter is seen with the tip in the right atrium. Once again, a loop recording device is seen overlying the left lower hemithorax. The lungs are clear and expanded. There is no demonstrated pleural abnormality. Normal size heart. Normal mediastinum and teja. Normal visualized pulmonary arteries. Normal visualized aortic arch and descending thoracic aorta. Normal visualized thoracic spine. Normal visualized ribs, clavicles, and shoulders. There is no demonstrated abnormality of the visualized soft tissue structures of the upper abdomen. RAD/Chest PA and Lateral IMPRESSION: Normal x-ray examination of the chest. Electronically Signed: Abdulaziz Chicas, at 14:47 EDT , Service support ,
--- NOTE | 2019-10-08 14:47 | CM.ED ---
Social Work Active ED Care Plan Per nursing staff, patient reporting to have received ED Care Plan in mail and to have no questions at this time. Social work did not complete visit with patient on this day due to infectious precautions being in place. Dr. Arteaga updated and aware that patient has an active ED Care Plan. Will continue to follow as needed. Eduardo Mccann MSW, SHARON
== END 2019-10-08 15:46 | disposition home or self-care (01) ==
LOC: ED 14:38
PROVIDERS: Emergency Provider Emergency Medicine
DX: J06.9 Acute upper respiratory infection, unspecified (principal); Z86.711 Personal history of pulmonary embolism; Z79.01 Long term (current) use of anticoagulants
CPT/HCPCS: 71046; 99282

== ENCOUNTER 2019-10-17 12:09 | Emergency (ER) | payer MEDICAID, SELFPAY ==
[2019-10-17 12:11] VITALS: BP 139/92; PULSE 101; RESP 17; TEMP 36.6; O2SAT 97; BMI 44.9
[2019-10-17] MEDS: 0.9% Normal Saline 1,000 ML 999 ML IV (13:23)
[2019-10-17] MEDS: DiphenhydrAMINE 50 MG/ML Syringe IV (13:23)
[2019-10-17] MEDS: Metoclopramide 10 MG/2 ML Vial IV (13:24)
[2019-10-17 13:34] LABS: Internal QC Validated? YES +Cl - CLEAR BKGD; Pregnancy, Serum, hCG Quali. NEGATIVE Negative
--- NOTE | 2019-10-17 13:35 | CM.ED ---
SOCIAL WORK INFORMANT: DR. BAÑUELOS REASON FOR REFERRAL: ACTIVE ED CARE PLAN-FOLLOW UP MET WITH PATIENT IN ROOM. REVIEWED ED CARE PLAN. PATIENT STATES I'M WELL AWARE OF MY CARE PLAN. PATIENT REPORTS DOES HAVE PCP, DR. MIC CARBAJAL. PATIENT REPORTS WOULD NORMALLY GO TO THE EMERGENCY DEPARTMENT IN THE HOSPITAL WHERE HER DOCTOR IS LOCATED, BUT IT IS TOO FAR OF A DRIVE. EDUCATION PROVIDED ON THIS WORKER'S ROLE. PATIENT DENIES ANY NEED FOR REFERRALS OR RESOURCES AT THIS TIME. THIS WORKER TO FOLLOW UP WITH DR. CARBAJAL'S OFFICE ON SATURDAY TO CONFIRM PATIENT IS ESTABLISHED AND PROVIDE PCP WITH COPY OF ED CARE PLAN VIA FAX. Sara HUFF MSW, PENOLOGY TEACHER.
--- NOTE | 2019-10-17 14:12 | ED.RN ---
pt states she has a family emergency so pt has to leave. this rn de-accessed port per protocol. dr. petty made aware
[2019-10-17 14:15] VITALS: BP 135/89; PULSE 90; RESP 17; O2SAT 96
--- NOTE | 2019-10-17 21:14 | ED.DCSUM_ITS ---
- ER Visit Summary Date of Service: 10/17/19 Chief Complaint: Headache History of Present Illness: The patient is a 29 F who reports she has a history of migraine headaches. Her current headache began 5 days ago and is on the right side of her head. Is gradually gotten worse. Is a throbbing pain is 10 of 10 at worst 9-10 currently. Is worsened by laying flat. Is relieved by warm compresses. She reports is been nausea and had dry heaves. She denies any recent trauma to her head. She reports that she has tingling in the right side of her face that was present when she woke 4 hours ago. She denies other neurologic symptoms. She does have a history of a PE and is on Xarelto. Physical Examination: Vitals: Stable. Afebrile. General: Well-nourished and well-developed. Head: Normocephalic atraumatic. Neck: Supple, no lymphadenopathy. No JVD. Nontender. Cardiovascular: Regular rate and rhythm. No murmurs. Respiratory: No respiratory distress. Clear to auscultation bilaterally. Abdominal: Soft, nontender, nondistended, normal bowel sounds. No guarding, rebound, or peritoneal signs. Back: Nontender. Extremities: Nontender, no edema. Skin: Normal color, no rash. Neurologic: Alert and oriented ?3. Cranial nerves II through XII are intact. Normal strength and sensation. Psych: Normal affect. Test Results: test is negative. The patient left prior to the CT of her head. Emergency Department Course and Treatment: Patient has an ED care plan and is allergic to Imitrex, Toradol, Reglan, Compazine, and Zofran. She told me that she cannot take Reglan if she gets Benadryl with this. She was given dose of Reglan and Benadryl IV. She was given Tylenol p.o. Treatment Plan: Patient left prior to completion of treatment. Disposition: Left prior to completion of treatment. Impression: 1. Recurrent headache. 2. Facial paresthesias. 3. Coagulopathy on Xarelto. 4. ED care plan. 5. Left prior to completion of treatment. This note was generated with [employer] software. It may contain incorrect words, spelling, and punctuation that were not noted in review of the chart prior to signing ED Disposition - Plan for ED Patient: Disposition: Home or Assisted Living Referrals: Care Physician,No Primary [Primary Care Provider] -
--- NOTE | 2019-10-19 13:00 | CM.ED ---
SOCIAL WORK ATTEMPTED TO CONTACT DR. CARBAJAL'S OFFICE. LEFT MESSAGE, AWAITING CALL BACK. Sara HUFF, OFFSET DUPLICATING MACHINE OPERATOR, COOKER LOADER.
== END 2019-10-17 14:15 | disposition home or self-care (01) ==
PROVIDERS: Emergency Provider Emergency Medicine
DX: R51 Headache (principal); R20.2 Paresthesia of skin; Z79.02 Long term (current) use of antithrombotics/antiplatelets; Z86.711 Personal history of pulmonary embolism; Z86.73 Personal history of transient ischemic attack (TIA), and cerebral infarction without residual deficits
CPT/HCPCS: 36591; 84703; 96361; 96374; 96375; 99285; J7030; A4216

== ENCOUNTER 2019-11-10 23:58 | Emergency (ER) | payer MEDICAID, SELFPAY ==
[2019-11-11 00:02] VITALS: BP 115/72; PULSE 125; RESP 24; TEMP 36.7; O2SAT 97
[2019-11-11 00:03] VITALS: BP 115/72; PULSE 134; RESP 24; TEMP 36.7; O2SAT 97; BMI 43.7
--- NOTE | 2019-11-11 00:14 | ED.RN ---
CALLED [facility] EKG PER DR REQUEST, PULLED OLD EKGS
--- NOTE | 2019-11-11 00:17 | EKG12_ITS ---
Test Reason : CP Blood Pressure : / mmHG Vent. Rate : 133 BPM Atrial Rate : 133 BPM P-R Int : 150 ms QRS Dur : 084 ms QT Int : 294 ms P-R-T Axes : 044 033 019 degrees QTc Int : 437 ms Sinus tachycardia Otherwise normal ECG Confirmed by LIZ ALBARRAN ([id number]), photograph editor RAMSES BEST ([id number]) on 11/16/2019 2:42:13 PM Referred By: ARLEEN Confirmed By:LIZ ALBARRAN
--- NOTE | 2019-11-11 00:17 | RAD_ITS ---
STUDY: X-RAY CHEST REASON FOR EXAM: Female, 29 years old. C/O CP AND SOB -- HX OF PE TECHNIQUE: Single AP portable view of the chest. COMPARISON: 10/08/2019. FINDINGS: There is a left-sided chest port with the tip in the distal SVC. The lungs are clear and underexpanded. There is no demonstrated pleural abnormality. Normal size heart. Normal mediastinum and teja. Normal visualized pulmonary arteries. Normal visualized aortic arch and descending thoracic aorta. Normal visualized thoracic spine. Normal visualized ribs, clavicles, and shoulders. There is no demonstrated abnormality of the visualized soft tissue structures of the upper abdomen. RAD/Chest 1 View (Portable) IMPRESSION: Left-sided chest port as described. No acute cardiopulmonary disease. Electronically Signed: Jenny Shin MD at 1:25 EDT , Service support ,
--- NOTE | 2019-11-11 00:19 | ED.VIS.GEN ---
History of Present Illness Chief Complaint: Chest Pain Informant: Patient Onset: Yesterday Current Severity: Moderate Maximum Severity: Moderate Narrative: Patient presents with chest pain has been present throughout most of the day yesterday. She presents just after midnight for evaluation. She states that late last evening she started having palpitations which she describes as heart racing and her heart is pounding hard. She does have a history of factor V Leiden and prior PEs. She is on Xarelto but does state that she was out of her medication for 2-1/2 weeks, just getting it refilled approximately 2 days ago. - Past Medical History (1) Pulmonary emboli Status: Chronic (2) Factor V Leiden Status: Chronic (3) Anxiety Status: Chronic (4) MDD (major depressive disorder) Status: Chronic (5) PTSD (post-traumatic stress disorder) Status: Chronic Past Medical History - Allergies and Home Meds Allergies/Adverse Reactions: Allergies furosemide [From Lasix] Allergy (Verified 11/11/19 00:01) Hives Iodinated Contrast Media Allergy (Verified 11/11/19 00:) Hives metformin Allergy (Verified 11/11/19 00:01) Unknown HIGH LACTIC ACID LEVELS ondansetron [From Zofran] Allergy (Verified 11/11/19 00:01) Hives propranolol Allergy (Verified 11/11/19 00:) Angioedema sumatriptan [From Imitrex] Allergy (Verified 11/11/19 00:01) Other CHEST PAIN HEART ATTACK SYMPTOMS ketorolac [From Toradol] Adverse Reaction (Verified 11/11/19 00:01) Hives metoclopramide [From Reglan] Adverse Reaction (Verified 11/11/19 00:) Other NEEDS BENADRYL WITH MED TO TOLERATTE prochlorperazine [From Compazine] Adverse Reaction (Verified 11/11/19 00:01) Other AGIATION, PT STATES NEEDS BENADRYL Primary Care Physician: [facility] Doctor,Out of [NON-STAFF] - Prior records reviewed: Yes Surgical History: noncontributory, cholecystectomy, - - , tubal ligation, left ovary removed Smoking Status: Never smoker Review of Systems General: Denies: Chills, Fever Eyes: Denies: Visual changes - bilaterally ENT: Denies: Bilateral ear pain Cardiovascular: Reports: Chest pain, Palpitations, Heart racing Respiratory: Reports: Dyspnea. Denies: Cough Gastrointestinal: Reports: Nausea. Denies: Abdominal pain, Vomiting, Diarrhea Genitourinary: Denies: Dysuria Musculoskeletal: Denies: Swelling, Extremity Pain Skin: Denies: Rash Neurological: Denies: Headache Hematologic: Denies: Easy bruising, Easy bleeding Allergy: Denies: Uticaria Physical Exam Vital Signs/Narrative: Vital Signs Temp Pulse Resp BP Pulse Ox 11/11/19 00:03 98.1 F 134 H 24 H 115/72 97 11/11/19 00:02 98.1 F 125 H 24 H 115/72 97 Inital Vital Signs reviewed: Yes General: Well nourished, Well developed Head: Normocephalic ENT: Moist mucous membranes Neck: Supple Cardiovascular: Tachycardia Respiratory: No distress, CTA bilaterally Abdomen: Soft, Nontender Extremities: Nontender Skin: Normal color Neurological: Alert, Oriented x3 Psychological: - - Anxious Diagnostic/Tx/Re-eval Impressions Chest X-Ray 11/11/19 00:17 IMPRESSION: Left-sided chest port as described. No acute cardiopulmonary disease. Electronically Signed: Jenny Shin MD at 1:25 EDT , Service support , 11/11/19 00:17 Chest 1 View (Portable) [RAD] Stat Laboratory Results 11/11/19 11/11/19 11/11/19 00:40 00:40 00:40 WBC 5.3 RBC 4.53 Hgb 11.1 L Hct 35.5 L MCV 78.4 L MCH 24.5 L MCHC 31.3 L RDW Std Deviation 44.2 H RDW Coeff of Millie 15.7 H Plt Count 241 MPV 8.9 Immature Gran % (Auto) 0.200 Neut % (Auto) 53.8 Lymph % (Auto) 38.2 Long % (Auto) 5.1 Eos % (Auto) 2.3 Baso % (Auto) 0.4 Absolute Neuts (auto) 2.8 Absolute Lymphs (auto) 2.01 Nucleated RBC % 0 Differential Comment SCANNED Reactive Lymphocytes 1+ D-Dimer Quant (PE/DVT) <= 0.27 Sodium 140 Potassium 3.5 Chloride 109 H Carbon Dioxide 22.0 Anion Gap 9 BUN 6 L Creatinine 0.62 Estim Creat Clear Calc 102.85 Est GFR (MDRD) Af Amer 147 Est GFR (MDRD) Non-Af 122 BUN/Creatinine Ratio 9.6 L Glucose 180 H Calcium 8.7 Troponin I < 0.015 TSH Serum , Qual 11/11/19 11/11/19 00:40 00:40 WBC RBC Hgb Hct MCV MCH MCHC RDW Std Deviation RDW Coeff of Millie Plt Count MPV Immature Gran % (Auto) Neut % (Auto) Lymph % (Auto) Long % (Auto) Eos % (Auto) Baso % (Auto) Absolute Neuts (auto) Absolute Lymphs (auto) Nucleated RBC % Differential Comment Reactive Lymphocytes D-Dimer Quant (PE/DVT) Sodium Potassium Chloride Carbon Dioxide Anion Gap BUN Creatinine Estim Creat Clear Calc Est GFR (MDRD) Af Amer Est GFR (MDRD) Non-Af BUN/Creatinine Ratio Glucose Calcium Troponin I TSH 0.68 Serum , Qual NEGATIVE - EKG Initial EKG Interpretation: Sinus Tachycardia - Sinus tach at 133 with no acute ischemia. - Medical Decision Making Patient initially given a dose of morphine and Phenergan. I was unable to review her prior records and noted that she did have a care plan. She was not give any further narcotics. I was able to review her records in [facility] as well. Patient was seen at [facility] on 07 of November and had a CT angio that was negative. Lab results here are unremarkable. On repeat evaluation patient remained tachycardic around 120. She was given dose of Reglan and Benadryl for continued nausea. TSH was sent and normal. At this time patient's heart rate is between 105 and 115. Patient voiced concern that she did not feel safe going home with her heart rate elevated. She asked that I speak to her primary care doctor, Dr. Whelan and that she wanted to be admitted to [facility]. I spoke Dr. Whelan on the phone and he advised that there was nothing further they were going to do and patient could follow-up as an outpatient. This was relayed to the patient and she is now in agreement with discharge. ED Disposition - Plan for ED Patient: Disposition: Home or Assisted Living Diagnosis: Palpitations Instructions: ED Palpitations Referrals: Town Doctor,Out of [NON-STAFF] - Additional Instructions: Follow-up with Dr Whelan as scheduled. Call the office tomorrow to see if they can review the information from your loop recorder.
[2019-11-11] MEDS: proMETHazine 25 MG/ML Syringe 6.25 MG IV (00:41)
[2019-11-11] MEDS: Morphine 4 MG/ML Syringe IV (00:44)
[2019-11-11 00:49] LABS: Absolute Lymphocyte Count 2.01 X10^3/uL (0.83-4.51); Absolute Neutrophil Count 2.8 X10^3/uL (2.0-7.7); Basophil# 0.02 X10^3/uL; Basophil% 0.4 % (0-1); Eosinophil# 0.12 X10^3/uL; Eosinophils% 2.3 % (0-5); Hematocrit 35.5 % (37-47); Hemoglobin 11.1 g/dL (12.0-15.0); Lymphocyte # 2.01 X10^3/ul (4.0); Lymphocyte % 38.2 % (19-41); Mean Corp Hgb Conc 31.3 g/dL (32-36); Mean Corpuscular Hgb 24.5 pg (27.0-32.0); Mean Corpuscular Volume 78.4 fL (81-99); Mean Platelet Vol. 8.9 fl (6.2-12.0); Monocyte# 0.27 X10^3/uL; Monocyte% 5.1 % (0-10); NRBC Flagged by Analyzer 0 % (0-5); Neutrophil # 2.83 X10^3/uL (2.7-7.7); Neutrophil % 53.8 % (47-70); POSITIVE MORPHOLOGY YES; Platelet Count 241 K/mm3 (150-450); RBC Distribution Width CV 15.7 % (11.6-14.6); RBC Distribution Width SD 44.2 fl (35.1-43.9); Red Blood Count 4.53 M/mm3 (4.2-5.4); White Blood Count 5.3 K/mm3 (4.4-11.0)
[2019-11-11 00:51] LABS: Differential Indicated SCAN CRITERIA MET
[2019-11-11 00:55] LABS: Internal QC Validated? YES +Cl - CLEAR BKGD; Pregnancy, Serum, hCG Quali. NEGATIVE Negative
[2019-11-11 00:59] LABS: D-Dimer Quantitative (DVT/PE) <= 0.27 FEU/ug/m (0.27-0.49)
[2019-11-11 01:04] LABS: Anion Gap 9 (5-15); BUN 6 mg/dL (7-18); BUN/Creat Ratio 9.6 RATIO (10-20); Calcium,Total 8.7 mg/dL (8.5-10.1); Chloride 109 mmol/L (98-107); Creatinine, Serum 0.62 mg/dL (0.55-1.02); Differential Comment SCANNED; EST Glomerular Filtration Rate 122 mL/min (>60); Est Glom Filt Rate - Afr Amer 147 mL/min (>60); Estimated Creatinine Clearance 102.85 ml/min; Glucose 180 mg/dL (74-106); Potassium 3.5 mmol/L (3.5-5.1); Reactive Lymphocyte 1+; Sodium Level 140 mmol/L (136-145)
[2019-11-11 01:17] VITALS: BP 124/71; PULSE 130; RESP 22; O2SAT 95
[2019-11-11 02:00] VITALS: BP 115/55; PULSE 104; RESP 16; O2SAT 96
[2019-11-11] MEDS: DiphenhydrAMINE 50 MG/ML Syringe 25 MG IV (02:08)
[2019-11-11] MEDS: Metoclopramide 10 MG/2 ML Vial 5 MG IV (02:09)
[2019-11-11 02:22] LABS: Thyroid Stim Hormone (TSH) 0.68 uIU/mL (0.358-3.74)
[2019-11-11 03:05] VITALS: BP 104/51; PULSE 107; RESP 24; O2SAT 98
== END 2019-11-11 03:13 | disposition home or self-care (01) ==
PROVIDERS: Emergency Provider Emergency Medicine
DX: R00.2 Palpitations (principal); D68.51 Activated protein C resistance; F32.9 Major depressive disorder, single episode, unspecified; F43.10 Post-traumatic stress disorder, unspecified; Z86.711 Personal history of pulmonary embolism; Z79.02 Long term (current) use of antithrombotics/antiplatelets; Z79.899 Other long term (current) drug therapy
CPT/HCPCS: 71045; 80048; 84443; 84484; 84703; 85025; 85379; 93005; 96374; 96375; 99285; A4216

== ENCOUNTER 2019-11-14 01:37 | Emergency (ER) | payer MEDICAID, SELFPAY ==
[2019-11-14 01:38] VITALS: BP 130/90; BP 139/83; PULSE 137; RESP 18; TEMP 36.6; O2SAT 97; BMI 39.0
--- NOTE | 2019-11-14 01:42 | EKG12_ITS ---
Test Reason : CP Blood Pressure : / mmHG Vent. Rate : 129 BPM Atrial Rate : 129 BPM P-R Int : 152 ms QRS Dur : 084 ms QT Int : 304 ms P-R-T Axes : 047 039 028 degrees QTc Int : 445 ms Sinus tachycardia Nonspecific T wave abnormality Confirmed by TRINITY HOLLIS, RAFAEL ([id number]), senior technical editor RAMSES BEST ([id number]) on 11/16/2019 2:38:25 PM Referred By: IVA Confirmed By:RAFAEL PETERSEN MD
--- NOTE | 2019-11-14 01:42 | CT_ITS ---
STUDY: CTA CHEST REASON FOR EXAM: Female, 29 years old. Sob, mid CHEST PAIN AND Nausea, pt HAD BEEN OFF XARELTO X 2 WEEKS -- Hx: mult PE''S,FACTOR 5 LEIDEN,HAS A PORT RADIATION DOSAGE (If Supplied By Facility): CTDIvol = ( 11.48 ) mGy, DLP = ( 413.60 ) mGycm TECHNIQUE: The examination was performed with the intravenous administration of IV 100mL Isovue-370. Post-processing of the angiographic images was performed, with multiplanar reformation and 3D reconstruction. Individualized dose optimization techniques were used for this CT. COMPARISON: Chest x-ray 11/11/2019. 10/08/2019. CT chest 09/14/2019. 09/07/2019. 10/16/2018. FINDINGS: Left internal jugular venous approach port with catheter tip in the cavoatrial junction. Anterior left chest wall loop recorder. Normal enhancement of the main pulmonary artery and right and left pulmonary arteries. Normal enhancement of the bilateral peripheral pulmonary arteries. There is no demonstrated pulmonary embolism. Cardiac motion is degrading the peripheral pulmonary arterial assessment. Normal thoracic aorta and visualized great vessels. There is no demonstrated aortic dissection. Normal heart and pericardium. Normal mediastinum. Normal hilar regions. Normal visualized trachea and bronchi. The lungs are under expanded. Minimal hazy of the dependent parenchyma in the lower lobes as on previous examination. No air bronchograms. No cavitary lesions, nodules or masses. Small stable bilateral pleural effusions.. Normal chest wall structures. Normal osseous structures. Normal visualized upper abdomen. Obesity. Partially imaged liver appears fatty infiltrated, partially imaged spleen and liver appear enlarged. CT/CTA Chest W/WO Contrast IMPRESSION: No demonstrated pulmonary embolism , aneurysm, leak or arterial dissection on submitted images with above-mentioned technique. Asymmetric parenchyma with low lung volumes frequently seen with hypoventilation. Differential diagnosis of mild pulmonary edema, inflammatory/infectious changes. This is unchanged since the previous examinations. No pulmonary edema, congestive heart failure or confluent pneumonia. Stable bilateral pleural fluid. Stable postsurgical changes, obesity, possible hepatosplenomegaly and hepatic steatosis. Electronically Signed: Kayla Torres MD at 4:18 EDT , Service support ,
--- NOTE | 2019-11-14 01:48 | ED.DCSUM_ITS ---
- ER Visit Summary Date of Service: 11/14/19 Chief Complaint: Chest pain, heart racing History of Present Illness: The patient is a 29 F who complains of chest pain and heart racing. She states it started early yesterday morning. She is crushing pain in the middle part of her chest. It does not radiate. She states that breathing and lying down makes it worse. Nothing seems to make it better. She does have some nausea associated with this. She states the pain now radiates down into her abdomen. She has a history of factor V Leiden and multiple PEs. She is supposed to be on Xarelto for life. She states that she missed 2 weeks of doses because she could not get the medication. She just then restarted this medication 1 week ago. She denies any leg swelling. Physical Examination: Vital signs reviewed. HEENT exam unremarkable. Heart is tachycardic and regular rhythm without murmurs. Lungs are clear to auscultation. Abdomen is soft and nontender. Extremities reveal no edema. Peripheral pulses are equal. Skin exam normal. Neurologic exam normal. Test Results: EKG was sinus rhythm with no ischemic changes. Hemoglobin 10.7, hematocrit 34.3. Glucose 268. Troponin normal. CAT scan of the chest was obtained and is unremarkable Emergency Department Course and Treatment: The patient states she has had many PEs in the past. She has been off of her medication so therefore I elected to do a CAT scan instead of a d-dimer due to her high risk. This is negative. Patient had to be premedicated with Benadryl and Solu-Medrol due to a previous reaction to the dye. She had no symptoms after the IV contrast. At this point her troponin is normal. She has had pain for more than 8 hours. I do not feel this is cardiac. Patient will given Tylenol for pain. She will continue this at home. Treatment Plan: [] Disposition: Discharge Impression: Chest pain This note was generated with [employer] dictation software. It may contain incorrect words, spelling, and punctuation that were not noted in review of the chart prior to signing ED Disposition - Plan for ED Patient: Disposition: Home or Assisted Living Instructions: ED Chest Pain NonCardiac Referrals: NOT,DEFINED [NON-STAFF] -
[2019-11-14] MEDS: MethylPREDNISolone 125 MG/2 ML Vial IV (02:18)
[2019-11-14] MEDS: DiphenhydrAMINE 50 MG/ML Syringe 25 MG IV (02:19)
[2019-11-14 02:33] LABS: Absolute Lymphocyte Count 0.88 X10^3/uL (0.83-4.51); Absolute Neutrophil Count 7.1 X10^3/uL (2.0-7.7); Basophil# 0.02 X10^3/uL; Basophil% 0.2 % (0-1); Eosinophil# 0.08 X10^3/uL; Eosinophils% 0.9 % (0-5); Hematocrit 34.3 % (37-47); Hemoglobin 10.7 g/dL (12.0-15.0); Lymphocyte # 0.88 X10^3/ul (4.0); Lymphocyte % 10.2 % (19-41); Mean Corp Hgb Conc 31.2 g/dL (32-36); Mean Corpuscular Hgb 24.8 pg (27.0-32.0); Mean Corpuscular Volume 79.4 fL (81-99); Monocyte# 0.55 X10^3/uL; Monocyte% 6.4 % (0-10); NRBC Flagged by Analyzer 0 % (0-5); Neutrophil # 7.05 X10^3/uL (2.7-7.7); Platelet Count 223 K/mm3 (150-450); RBC Distribution Width CV 15.7 % (11.6-14.6); RBC Distribution Width SD 44.7 fl (35.1-43.9); Red Blood Count 4.32 M/mm3 (4.2-5.4); White Blood Count 8.6 K/mm3 (4.4-11.0)
[2019-11-14 02:50] LABS: Anion Gap 9 (5-15); BUN 12 mg/dL (7-18); BUN/Creat Ratio 13.8 RATIO (10-20); Calcium,Total 8.9 mg/dL (8.5-10.1); Chloride 109 mmol/L (98-107); Creatinine, Serum 0.87 mg/dL (0.55-1.02); EST Glomerular Filtration Rate 83 mL/min (>60); Est Glom Filt Rate - Afr Amer 100 mL/min (>60); Estimated Creatinine Clearance 90.93 ml/min; Glucose 268 mg/dL (74-106); Sodium Level 140 mmol/L (136-145)
[2019-11-14] MEDS: proMETHazine 25 MG/ML Syringe 6.25 MG IV (02:52)
[2019-11-14 03:38] VITALS: BP 136/78; PULSE 134; RESP 18; O2SAT 98
[2019-11-14 04:38] VITALS: BP 140/83; PULSE 117; RESP 18; O2SAT 96
[2019-11-14] MEDS: Acetaminophen 500 MG Tablet 1000 MG PO (04:43)
== END 2019-11-14 04:49 | disposition home or self-care (01) ==
PROVIDERS: Emergency Provider Emergency Medicine
DX: R07.9 Chest pain, unspecified (principal); D68.51 Activated protein C resistance; Z86.711 Personal history of pulmonary embolism; Z79.02 Long term (current) use of antithrombotics/antiplatelets
CPT/HCPCS: 36591; 71275; 80048; 84484; 85025; 93005; 96374; 96375; 99285; Q9967; A4216

== ENCOUNTER 2019-11-22 09:51 | Emergency (ER) | payer MEDICAID, SELFPAY ==
[2019-11-22 09:53] VITALS: BP 160/101; PULSE 124; RESP 16; TEMP 36.6; O2SAT 97; BMI 41.5
--- NOTE | 2019-11-22 10:13 | RAD_ITS ---
STUDY: X-RAY - LUMBAR SPINE REASON FOR EXAM: Female, 29 years old. FALL YESTERDAY; PAIN LOW BACK AND DOWN INTO LEGS TECHNIQUE: 3 view(s) of the lumbar spine were obtained. COMPARISON: None FINDINGS: Normal lumbar lordosis. There is no substantial scoliosis. There is a normal alignment of the vertebrae. Normal vertebral bodies and endplates. Normal disc space heights. The soft tissue structures are unremarkable. Colonic fecal retention. RAD/Lumbar Spine 2 or 3 Views IMPRESSION: Normal x-ray examination of the lumbar spine. Electronically Signed: Robert Olson DO at 10:42 EDT Tel [phone], Service support ,
--- NOTE | 2019-11-22 10:29 | ED.VIS.GEN ---
History of Present Illness Chief Complaint: Back Informant: Patient Onset: Yesterday Maximum Severity: Mild Narrative: Patient complains of low lumbar back pain she struck her back against a dresser yesterday Indicates she has chronic syncope she has an event recorder she believes she may have had a syncopal episode last yesterday she struck her back against a dresser she got up went about daily activities no numbness weakness paresthesias, her event recorder is monitored by her office messenger helper when there is ever a major issue with the rhythm she is contacted she was not contacted by them, she has had the event recorder for over a year, the exact etiology of the syncopal spells are unclear she does not have V. tach V. fib cardiac arrest A. fib a flutter or any obvious dysrhythmia and hence the persistent nature of the event recorder Has had no exposures to coronavirus and her health has otherwise been stable she denies , she quite bluntly states she is not here related to the syncope or the event recorder as she is under management by her physicians for that she is here for the back pain Past Medical History - Allergies and Home Meds Allergies/Adverse Reactions: Allergies furosemide [From Lasix] Allergy (Verified 11/22/19 09:52) Hives Iodinated Contrast Media Allergy (Verified 11/22/19 09:52) Hives metformin Allergy (Verified 11/22/19 09:52) Unknown HIGH LACTIC ACID LEVELS ondansetron [From Zofran] Allergy (Verified 11/22/19 09:52) Hives propranolol Allergy (Verified 11/22/19 09:52) Angioedema sumatriptan [From Imitrex] Allergy (Verified 11/22/19 09:52) Other CHEST PAIN HEART ATTACK SYMPTOMS ketorolac [From Toradol] Adverse Reaction (Verified 11/22/19 09:52) Hives metoclopramide [From Reglan] Adverse Reaction (Verified 11/22/19 09:52) Other NEEDS BENADRYL WITH MED TO TOLERATTE prochlorperazine [From Compazine] Adverse Reaction (Verified 11/22/19 09:52) Other AGIATION, PT STATES NEEDS BENADRYL Primary Care Physician: Care Physician,No Primary [NON-STAFF] - Past Medical History: - - Includes syncope event recorder Surgical History: noncontributory, cholecystectomy, - - , tubal ligation, left ovary removed Smoking Status: Never smoker Review of Systems General: Denies: Chills, Fever, Sweats Eyes: Denies: Visual changes - bilaterally, Diplopia ENT: Denies: Rhinorrhea, Sore throat Cardiovascular: Denies: Chest pain, Palpitations Respiratory: Denies: Dyspnea, Cough, Dyspnea on exertion Gastrointestinal: Denies: Abdominal pain, Nausea, Vomiting, Diarrhea, Melena, Hematochezia Genitourinary: Denies: Dysuria, Hematuria, Frequency Musculoskeletal: Denies: Back pain, Extremity Pain Skin: Denies: Rash, Wounds Neurological: Reports: - - Ported syncope and lumbar back pain after striking dresser. Denies: Headache, Weakness, Numbness Physical Exam Vital Signs/Narrative: Vital Signs Temp Pulse Resp BP Pulse Ox 11/22/19 09:53 97.9 F 124 H 16 160/101 H 97 General: Well nourished, Well developed, No Acute Distress Head: Normocephalic, Atraumatic Eyes: Perrl, EOMI ENT: Moist mucous membranes, No rhinorrhea Neck: Supple, Nontender Cardiovascular: Regular rate, Regular rhythm, No murmurs Respiratory: No distress, CTA bilaterally, Chest nontender Abdomen: Soft, Nontender, Nondistended, Normal bowel sounds Back: Normal Inspection, - - Is a very nonspecific pain to the lumbar back physical contusion or bruising the CT C-spine T-spine unremarkable head unremarkable no head trauma moving all 4 extremities, she able to stand and walk without difficulty, she can heel raise toe raise knee bend without difficulty she was able to come to the emergency department in a cab Extremities: Nontender, No edema Skin: Normal color, No rash Neurological: Alert, Oriented x3, Cranial nerves II-XII grossly intact, Normal Strength, Normal Sensation Psychological: Normal affect, Normal Mood Diagnostic/Tx/Re-eval - Medical Decision Making A long conversation with her she does not wish to be assessed for the syncope as she states she is under care of her cardiology team her event recorder works she is usually contacted if there is an issue she was not contacted this occurred yesterday Her chief issue is lumbar back pain and Pain control lumbar back x-rays will be obtained she is given [place] 1 tablet she has multiple allergies she is currently on Xarelto related to MTR FH, she has no fever cough chest pain or abdominal pain, lumbar spine x-ray will be reviewed if there is unremarkable she discharged on [place] to be used as a rescue medicine #6 if Tylenol is ineffective ice to the back and follow-up with outpatient providers No signs on exam or by history or physical exam of any acute life-threatening condition no signs of cauda equina she is walking no radiation the pain is directly over her low lumbar back Home stable Final impression lumbar back pain after fall, history of chronic intermittent syncope ED Disposition - Plan for ED Patient: Diagnosis: Lumbar back pain Instructions: ED Contusion Back Prescriptions: Hydrocodone Bitart/Apap 5-325 [[place] 5MG-325MG] 1 tab PO Q4H PRN PRN 2 Days #7 tab PRN Reason: Pain Prescription Printed Referrals: Care Physician,No Primary [NON-STAFF] -
[2019-11-22] MEDS: HYDROcodone Bitartrate/Apap 5/325 Tablet PO (10:35)
--- NOTE | 2019-11-22 10:52 | ED.RN ---
PT WAS NOT GIVEN HER PRESCRIPTION PER DR HESS ORDERS AFTER SEEING HER CARE PLAN. PT VERBALIZED UNDERSTANDING THAT SHE IS NOT SUPPOSED TO GET NARCOTICS AND WAS COOPERATIVE. PT DID AMBULATE FROM DEPARTMENT WITHOUT ANY SIGN OF DIFFICULTY OR DISTRESS. STEADY GAIT WAS PRESENT.
== END 2019-11-22 10:55 | disposition home or self-care (01) ==
LOC: ED 10:31
PROVIDERS: Emergency Provider Emergency Medicine; PCP Nurse Practitioner Family
DX: M54.5 Low back pain (principal); R55 Syncope and collapse
CPT/HCPCS: 72100; 99283; J7040

== ENCOUNTER 2019-11-23 02:05 | Observation (INO) | payer MEDICAID, SELFPAY ==
[2019-11-22 09:53] VITALS: BMI 41.5
[2019-11-23] VITALS (8 sets, daily range): BP systolic 129–165; BP diastolic 80–109; PULSE 103–120; RESP 14–25; TEMP 36.6–36.8; O2SAT 94–99; BMI 46.6; BMI 46.0; BMI 46.1
--- NOTE | 2019-11-23 02:11 | CT_ITS ---
STUDY: CT BRAIN WITHOUT CONTRAST REASON FOR EXAM: Female, 29 years old. HEADACHE WITH RIGHT SIDED HAND NUMBNESS. RADIATION DOSAGE (If Supplied By Facility): CTDIvol = ( 44.99 ) mGy, DLP = ( 745.49 ) mGycm TECHNIQUE: Transaxial CT imaging of the brain was performed without administration of intravenous contrast material. Individualized dose optimization techniques were used for this CT. COMPARISON: No relevant priors. FINDINGS: Normal soft tissue structures. Normal calvarium. Normal size ventricles and extra-axial spaces for the patient''s age. Normal white matter tracts of the cerebral hemispheres. Normal basal ganglia and thalami. Normal brainstem. Normal cerebellum. There is no intracranial hemorrhage. There are no findings of an acute ischemic infarction. Normal visualized paranasal sinuses. CT/Brain/Head without Contrast IMPRESSION: Normal unenhanced CT scan of the brain. N.B. : The above information has been verbally conveyed by Jenny Shin MD to Dr. Emir Duval MD, on 11/23/2019 02:42:40 (ET). Electronically Signed: Jenny Shin MD at 2:41 EDT , Service support ,
--- NOTE | 2019-11-23 02:11 | EKG12_ITS ---
Test Reason : STROKE TEAM Blood Pressure : / mmHG Vent. Rate : 115 BPM Atrial Rate : 115 BPM P-R Int : 160 ms QRS Dur : 086 ms QT Int : 332 ms P-R-T Axes : 051 015 021 degrees QTc Int : 459 ms Sinus tachycardia Otherwise normal ECG Confirmed by ROSE GALLO MD ([id number]), sports editor RAMSES BEST ([id number]) on 11/23/2019 3:11:45 PM Referred By: BB Confirmed By:ROSE GALLO MD
--- NOTE | 2019-11-23 02:12 | CT_ITS ---
We are attempting to reach an attending provider to discuss findings. An addendum with communication details will be sent when the communication is complete. STUDY: CTA HEAD AND NECK WITH CONTRAST REASON FOR EXAM: Female, 29 years old. RT SIDED NUMBNESS THIS AM,HEADACHE X 2 DAYS -- HX:MIGRAINES,FACTOR V LEIDEN RADIATION DOSAGE (If Supplied By Facility): CTDIvol = ( 18.82 ) mGy, DLP = ( 698.86 ) mGycm TECHNIQUE: CT angiography was performed with a multi-detector CT scanner. Data acquisition was obtained from the skull base through the vertex following intravenous administration of IV 100mL Isovue-370. MIP images were reconstructed from the axial data set. Post-processing of the angiographic images was performed, with multiplanar reformation and 3D reconstruction. Individualized dose optimization techniques were used for this CT. COMPARISON: No relevant priors. FINDINGS: Normal bilateral petrous carotid arteries. Normal right cavernous carotid artery with a normal supraclinoid bifurcation. Normal left cavernous carotid artery with a normal supraclinoid bifurcation. Normal right A1 segments of the anterior cerebral artery. Normal left A1 segments of the anterior cerebral artery. Normal intact anterior communicating artery (ACOM). Normal bilateral A2 segments of the anterior cerebral arteries. Normal right M1 and M2 segments of the middle cerebral arteries, with a normal M1 bifurcation. Normal left M1 and M2 segments of the middle cerebral arteries, with a normal M1 bifurcation. Normal right posterior communicating artery (PCOM). Normal left posterior communicating artery (PCOM). Normal bilateral vertebral arteries. Normal basilar artery with a normal basilar bifurcation. The visualized bilateral superior cerebellar (SCA) arteries are normal. Normal bilateral P1, P2 and visualized P3 segments of the posterior cerebral arteries. There is no demonstrated aneurysm of the cabazon of [place]. There is no demonstrated abnormality of the visualized brain. AORTIC ARCH: Normal visualized aortic arch. Normal origins of the brachiocephalic, left common carotid, and left subclavian arteries. RIGHT CAROTID ARTERIES: Normal right common carotid artery (CCA). Normal right common carotid bulb. Normal origin of the right internal carotid (ICA) artery without a hemodynamically significant stenosis. Normal visualized cervical portion of the right internal carotid artery. Normal origin of the right external carotid artery (ECA). LEFT CAROTID ARTERIES: Normal left common carotid artery (CCA). Normal left common carotid bulb. Normal origin of the left internal carotid (ICA) artery without a hemodynamically significant stenosis. Normal visualized cervical portion of the left internal carotid artery. Normal origin of the left external carotid artery (ECA). VERTEBRAL ARTERIES: Normal bilateral vertebral arteries. CT/CTA Head AND Neck W/ Contrast IMPRESSION: Normal CTA Head and neck with contrast. Electronically Signed: Jenny Shin MD at 2:54 EDT , Service support ,
--- NOTE | 2019-11-23 02:15 | ED.DCSUM_ITS ---
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 Negative for: Vomiting, Chest Pain Narrative: Seen upon EMS arrival to ED room. Patient presenting with numbness on the right side of her face that started 30 minutes ago. She states over 24 hours ago, she had a syncopal episode, which happens frequently, and she woke up with numbness down both of her legs. No weakness. The numbness in her legs persists. It is stocking-glove in distribution, bilaterally including the feet. She arrived by EMS who also noticed a facial droop. She has had a migraine for the last 2 or 3 days off-and-on, she has a history of these for the last 14 years commonly, this is no different, with photophobia bifrontal headache. She states she has never had a migraine with neurologic symptoms associated with it. She denies any recent head injury. She states when she had the syncopal episode yesterday, she was walking toward the bathroom and had no warning, passed out and scraped her back against a nearby dresser, for which she was seen here in the ER and had negative x-rays. She states this is a common occurrence for her to pass out with no warning, completely randomly. She has a loop recorder in place because of this. She has been told that the cause of her syncope is unknown. She denies any recent illness. She also states she has a history of a TIA and factor V Leiden deficiency. She is on Xarelto and took the last dose earlier today. She states she was at in [facility] when that occurred, she used to live there. She states she was admitted and had an MRI that showed a cerebral deficit consistent with a small stroke. Patient is a frequent visitor to this emergency department. Her care plan was put in place because of a history of drug-seeking behavior and frequent requests for narcotic analgesics, frequent visits for pain-related complaints, and it was put into place in the middle of September after 11 visits this year so far. Since then, this is her 7th additional visit. - Past Medical History (1) Migraines Status: Chronic (2) TIA (transient ischemic attack) Status: Chronic (3) Anxiety Status: Chronic (4) Factor V Leiden Status: Chronic (5) MDD (major depressive disorder) Status: Chronic (6) PTSD (post-traumatic stress disorder) Status: Chronic (7) Pulmonary emboli Status: Chronic Past Medical History - Allergies and Home Meds Allergies/Adverse Reactions: Allergies furosemide [From Lasix] Allergy (Verified 11/22/19 09:52) Hives Iodinated Contrast Media Allergy (Verified 11/22/19 09:52) Hives metformin Allergy (Verified 11/22/19 09:52) Unknown HIGH LACTIC ACID LEVELS ondansetron [From Zofran] Allergy (Verified 11/22/19 09:52) Hives propranolol Allergy (Verified 11/22/19 09:52) Angioedema sumatriptan [From Imitrex] Allergy (Verified 11/22/19 09:52) Other CHEST PAIN HEART ATTACK SYMPTOMS ketorolac [From Toradol] Adverse Reaction (Verified 11/22/19 09:52) Hives metoclopramide [From Reglan] Adverse Reaction (Verified 11/22/19 09:52) Other NEEDS BENADRYL WITH MED TO TOLERATTE prochlorperazine [From Compazine] Adverse Reaction (Verified 11/22/19 09:52) Other AGIATION, PT STATES NEEDS BENADRYL Primary Care Physician: Barbara Lopez NP-C [Primary Care Provider] - Surgical History: noncontributory, cholecystectomy, - - , tubal ligation, left ovary removed Smoking Status: Never smoker Drugs: None Review of Systems General: Denies: Chills, Fever, Sweats Eyes: Reports: - - photophobia. Denies: Visual changes - bilaterally, Diplopia ENT: Denies: Rhinorrhea, Sore throat Cardiovascular: Denies: Chest pain, Palpitations Respiratory: Denies: Dyspnea, Cough, Dyspnea on exertion Gastrointestinal: Reports: Nausea. Denies: Abdominal pain, Vomiting, Diarrhea, Melena, Hematochezia Genitourinary: Denies: Dysuria, Hematuria, Frequency Musculoskeletal: Denies: Neck pain, Back pain, Swelling, Extremity Pain Skin: Denies: Rash, Wounds Neurological: Reports: Headache, Numbness. Denies: Weakness STROKE Vital Signs/Narrative: Vital Signs Temp Pulse Resp BP Pulse Ox 11/23/19 02:06 98.0 F 120 H 18 165/109 H 98 Inital Vital Signs reviewed: Yes - NIHSS Initial 1a Level of Consciousness: 0 1b LOC Questions (Score 2 if aphasic/stupor): 0 1c LOC Commands (Only score 1st attempt): 0 2 Best Gaze (If aphasic, use reflexive mvmts.): 0 3 Visual: 0 4 Facial Palsy: 1 - mild, appears to be nasolabial fold flattening on LEFT lower face; nml forehead movement 5 Motor Arm Right (UN = amputation/fusion): 0 5 Motor Arm Left: 0 6 Motor Leg Right: 0 6 Motor Leg Left: 0 7 Limb ataxia (Only + if out of proportion): 0 8 Sensory (Aphasia/stupor=0 or 1, coma=2): 1 9 Best Language: 0 10 Dysarthria (mute, coma=2, intubated=UN): 0 11 Extinction and Inattention (only scored if +): 0 Total Score: 2 General: Well nourished, Well developed, Obese, - - keenly alert, NAD Head: Normocephalic, Atraumatic Eyes: Perrl, EOMI ENT: Moist mucous membranes, No rhinorrhea Neck: Supple, Nontender, No lymphadenopathy, - - no carotid bruits Cardiovascular: Regular rate, Regular rhythm, No murmurs, Normal S1, Normal S2, Tachycardia Respiratory: No distress, CTA bilaterally, Chest nontender Abdomen: Soft, Nontender, Nondistended, Normal bowel sounds Back: Nontender, Normal Inspection Extremities: Nontender, No edema Skin: Normal color, No rash, No Trauma Neurological: Alert, Oriented x3, Normal Strength Psychological: Normal affect, Normal Mood Diagnostic/Tx/Re-eval Impressions Brain CT 11/23/19 02:11 IMPRESSION: Normal unenhanced CT scan of the brain. N.B. : The above information has been verbally conveyed by Jenny Shin MD to Dr. Emir Duval MD, on 11/23/2019 02:42:40 (ET). Electronically Signed: Jenny Shin MD at 2:41 EDT , Service support , ADDENDUM: 11/23/19 031 IMPRESSION: Normal unenhanced CT scan of the brain. N.B. : The above information has been verbally conveyed by Jenny Shin MD to Dr. Emir Duval MD, on 11/23/2019 02:42:40 (ET). Electronically Signed: Jenny Shin MD at 2:41 EDT , Service support , Head/Neck CTA 11/23/19 02:12 IMPRESSION: Normal CTA Head and neck with contrast. Electronically Signed: Jenny Shin MD at 2:54 EDT , Service support , ADDENDUM: 11/23/19 0310 IMPRESSION: Normal CTA Head and neck with contrast. N.B. : The above information has been verbally conveyed by Jenny Shin MD to MD, on 11/23/2019 03:03:14 (ET). Electronically Signed: Jenny Shin MD at 2:54 EDT , Service support , Chest X-Ray 11/23/19 02:37 IMPRESSION: Left-sided chest port as described. No acute cardiopulmonary disease. Electronically Signed: Jenny Shin MD at 2:56 EDT , Service support , 11/23/19 02:11 Brain/Head without Contrast [CT] Stat 11/23/19 02:12 CTA Head AND Neck W/ Contrast [CT] Stat 11/23/19 02:37 Chest 1 View [RAD] Stat Laboratory Results 11/23/19 11/23/19 11/23/19 02:40 02:40 02:40 WBC 8.2 RBC 3.92 L Hgb 9.8 L Hct 30.8 L MCV 78.6 L MCH 25.0 L MCHC 31.8 L RDW Std Deviation 47.8 H RDW Coeff of Millie 16.8 H Plt Count 238 MPV 8.6 Immature Gran % (Auto) 1.100 H Neut % (Auto) 53.4 Lymph % (Auto) 38.3 [place]ountain % (Auto) 5.5 Eos % (Auto) 1.5 Baso % (Auto) 0.2 Absolute Neuts (auto) 4.4 Absolute Lymphs (auto) 3.13 Nucleated RBC % 0 PT 13.3 INR 1.1 APTT 24.0 L Sodium 136 Potassium 3.4 L Chloride 103 Carbon Dioxide 25.0 Anion Gap 8 BUN 15 Creatinine 0.60 Estim Creat Clear Calc 106.28 Est GFR (MDRD) Af Amer 153 Est GFR (MDRD) Non-Af 127 BUN/Creatinine Ratio 25.0 H Glucose 221 H Calcium 8.2 L Troponin I < 0.015 - Rhythm Strip Rhythm Strip: Sinus Tach Rate: 115 Ectopy: None - EKG Initial EKG Interpretation: No Acute Injury Pattern, Sinus Tachycardia Prior: Unchanged - Medical Decision Making Stroke Team Activated: Yes - by myself, simultaneous along w/ EDP evaluation Reviewed Inclusion/Exclusion criteria: Yes Was Patient considered for Endovascular Intervention?: No - neg CTA (reported at 0302 by radiology) IV Alteplase (t-PA) Administered: No - contraindicated due to recently took Xarelto Stroke team was called, NIH was tallied, it was noted that patient has an iodine contrast allergy, she gets hives. She was pretreated with Solu-Medrol and Benadryl, and I asked CT to scan her emergently after getting these medications without waiting the full hour since she does not get anaphylaxis. Since she is not an IV TPA candidate, CT and CT angiography were performed simultaneously to rule out LVO. It was negative for that. It was negative for hemorrhage as well. I discussed with stroke neurology from [facility], they agree with admission and work-up/treatment/evaluation. Discussed w/ hospitalist. Critical care time (excluding procedures): 30-74 minutes - 35 minutes, including time spent discussing with patient, reevaluating and performing direct patient care at the bedside, discussing with consultants, and arranging admission. ED Disposition - Plan for ED Patient: Disposition: [facility] Care [facility] [place] Diagnosis: Right facial numbness, Bilateral leg numbness, Cephalgia, Factor V Leiden, Anemia Referrals: Barbara Lopez, FREDO-C [Primary Care Provider] -
--- NOTE | 2019-11-23 02:28 | ED.RN ---
0214 CALL TO JAUN FENG,INSTRUCTED TO CALL BACK WHEN PT BACK FROM CAT SCAN.
[2019-11-23] MEDS: DiphenhydrAMINE 50 MG/ML Syringe 25 MG IV (02:30)
[2019-11-23] MEDS: MethylPREDNISolone 125 MG/2 ML Vial IV (02:30)
--- NOTE | 2019-11-23 02:37 | RAD_ITS ---
STUDY: X-RAY CHEST REASON FOR EXAM: Female, 29 years old. RIGHT SIDED WEAKNESS WITH HEADACHE TECHNIQUE: Single AP portable view of the chest. COMPARISON: 10/22/2019. FINDINGS: There is a left-sided chest port with the tip in the distal SVC. The lungs are clear and underexpanded. There is no demonstrated pleural abnormality. Normal size heart. Normal mediastinum and teja. Normal visualized pulmonary arteries. Normal visualized aortic arch and descending thoracic aorta. Normal visualized thoracic spine. Normal visualized ribs, clavicles, and shoulders. There is no demonstrated abnormality of the visualized soft tissue structures of the upper abdomen. RAD/Chest 1 View IMPRESSION: Left-sided chest port as described. No acute cardiopulmonary disease. Electronically Signed: Jenny Shin MD at 2:56 EDT , Service support ,
--- NOTE | 2019-11-23 02:47 | ED.RN ---
0240 PT BACK FROM CAT SCAN,JUAN FROM [facility] CALLED. FROM [facility] SPOKE TO DR BARKSDALE.
[2019-11-23 02:49] LABS: Absolute Lymphocyte Count 3.13 X10^3/uL (0.83-4.51); Absolute Neutrophil Count 4.4 X10^3/uL (2.0-7.7); Basophil# 0.02 X10^3/uL; Basophil% 0.2 % (0-1); Eosinophil# 0.12 X10^3/uL; Eosinophils% 1.5 % (0-5); Hematocrit 30.8 % (37-47); Hemoglobin 9.8 g/dL (12.0-15.0); Lymphocyte # 3.13 X10^3/ul (4.0); Lymphocyte % 38.3 % (19-41); Mean Corp Hgb Conc 31.8 g/dL (32-36); Mean Corpuscular Volume 78.6 fL (81-99); Mean Platelet Vol. 8.6 fl (6.2-12.0); Monocyte# 0.45 X10^3/uL; Monocyte% 5.5 % (0-10); NRBC Flagged by Analyzer 0 % (0-5); Neutrophil # 4.37 X10^3/uL (2.7-7.7); Neutrophil % 53.4 % (47-70); Platelet Count 238 K/mm3 (150-450); RBC Distribution Width CV 16.8 % (11.6-14.6); RBC Distribution Width SD 47.8 fl (35.1-43.9); Red Blood Count 3.92 M/mm3 (4.2-5.4); White Blood Count 8.2 K/mm3 (4.4-11.0)
[2019-11-23 03:05] LABS: Anion Gap 8 (5-15); BUN 15 mg/dL (7-18); Calcium,Total 8.2 mg/dL (8.5-10.1); Chloride 103 mmol/L (98-107); EST Glomerular Filtration Rate 127 mL/min (>60); Est Glom Filt Rate - Afr Amer 153 mL/min (>60); Estimated Creatinine Clearance 106.28 ml/min; Glucose 221 mg/dL (74-106); Potassium 3.4 mmol/L (3.5-5.1); Sodium Level 136 mmol/L (136-145)
[2019-11-23 03:12] LABS: International Normalized Ratio 1.1; Prothrombin Time (Protime)PT. 13.3 SECONDS (11.7-14.9)
[2019-11-23] MEDS: proMETHazine 25 MG/ML Syringe 12.5 MG IV (03:36)
--- NOTE | 2019-11-23 04:23 | PCM.HP.STD ---
Problem List (1) Numbness and tingling of right side of face Status: Acute History of Present Illness Date of Admission: 11/23/19 Chief Complaint: Right-sided facial numbness The patient is a 29 year old F who was seen in the emergency room at [facility] with a chief complaint of right facial tingling and numbness feeling over the last several hours. Patient states she has had a migraine that has been continuous over the last 3 days, she denies any focal motor weakness, she denies any visual disturbances, and she denies any speech disturbances. Patient's NIH stroke score was 2. Work-up in the emergency room revealed a CBC which was remarkable for hemoglobin of 9.8, patient's chemistry panel was remarkable for a potassium of 3.4, and a glucose of 221. Patient had a CT of the brain which did not show any acute process, patient had a CTA of her head and neck that was normal. Stroke neurology from [facility] was contacted, they agreed that the patient was not a candidate for TPA and advise further work-up with an MRI when available. Patient will be placed in the observation status for right facial paresthesias, this examiner feels that this may be secondary to her migraine-patient denies any neurological symptoms with prior migraines. Past Medical History Past Medical History (Chronic Problems): Chronic Problems Pulmonary embolus, right (Chronic) Factor V Leiden (Chronic) Anxiety (Chronic) MDD (major depressive disorder) (Chronic) PTSD (post-traumatic stress disorder) (Chronic) Pulmonary emboli (Chronic) Migraines (Chronic) TIA (transient ischemic attack) (Chronic) Allergies furosemide [From Lasix] Allergy (Verified 11/22/19 09:52) Hives Iodinated Contrast Media Allergy (Verified 11/22/19 09:52) Hives metformin Allergy (Verified 11/22/19 09:52) Unknown HIGH LACTIC ACID LEVELS ondansetron [From Zofran] Allergy (Verified 11/22/19 09:52) Hives propranolol Allergy (Verified 11/22/19:52) Angioedema sumatriptan [From Imitrex] Allergy (Verified 11/22/19 09:52) Other CHEST PAIN HEART ATTACK SYMPTOMS ketorolac [From Toradol] Adverse Reaction (Verified 11/22/19 09:52) Hives metoclopramide [From Reglan] Adverse Reaction (Verified 11/22/19 09:52) Other NEEDS BENADRYL WITH MED TO TOLERATTE prochlorperazine [From Compazine] Adverse Reaction (Verified 11/22/19 09:52) Other AGIATION, PT STATES NEEDS BENADRYL Home Medications: Ambulatory Orders Medication Instructions Recorded Topiramate [Topamax] 200 mg PO BID 09/10/18 Rivaroxaban [Xarelto] 20 mg PO DAILY 06/02/19 Divalproex Sodium [Depakote] 250 mg PO Q6H PRN 09/18/19 Magnesium 500 mg PO BID 09/18/19 Vitamin B Complex 2 ea PO DAILY 09/18/19 proMETHazine suppository 25 mg RECTAL Q6H PRN PRN #6 suppos. 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 Lives: - - [facility] Smoking Status: Never smoker Tobacco Use: Non-smoker Alcohol: None Drugs: None - *Family History Maternal History Items: Heart Disease, Stroke Paternal History Items: High Cholesterol, Stroke Review of Systems Constitutional: Denies: Anorexia, Chills, Fever, Night Sweats, Malaise, Weakness, Weight Change, Fatigue Eyes: Denies: Cataracts, Conjunctivae Inflammation, Double vision, Drainage HEENT: Denies: Dysphasia, Ear Pain, Eye Pain, Hearing Changes, Nasal bleeding, Nasal Congestion, Post Nasal Drip Cardiovascular: Denies: Chest Pain, Claudication, Chest Pressure, Chest Tightness, Edema, Heaviness, Palpitations Respiratory: Denies: Cough, Hemoptysis, Pleuritic Pain, Shortness of Breath, Shortness of breath at rest, Shortness of breath upon exertion Gastrointestinal: Denies: Abdominal Pain, Constipation, Diarrhea, Hematemesis, Hematochezia, Nausea, Melena, Vomiting Genitourinary: Denies: Dysuria, Frequency, Hematuria, Hesitancy, Nocturia, Retention, Urgency Gynecological: Denies: Breast symptoms Musculoskeletal: Denies: Back Pain, Foot Pain, Hand Pain, Joint Pain, Joint stiffness, Joint swelling, Joint Tenderness, Leg Pain Skin: Denies: Dryness, Pruritis, Rash Neurological: Reports: Headaches - Chronic migraines, Numbness - Over her right facial area, Tingling - Right facial area. Denies: Blurred vision, Double vision, Change in Speech, Slurred speech, Difficulty swallowing, Focal weakness, Tremor, Seizures Psychiatric: Denies: Anxiety, Depression, Homicidal Ideations, Suicidal Ideations Endocrine: Denies: Change in Body Habitus, Heat/ Cold Intolerance, Polydipsia, Polyuria Hematologic/ Lymphatic: Reports: Hx of blood clot. Denies: Adenopathy, Anemia, Easy Bruising, Easy Bleeding, Petechiae, Purpura VTE Information - Inpt Only VTE Present on Admission: No VTE Mechan Device Prophylaxis: None VTE Pharm Prophylaxis ordered?: No Reason prophylaxis not ordered:: Treatment Not Indicated - Patient on Xarelto Patient Problems: Active and Suspected Problems Right facial numbness (Acute) Bilateral leg numbness (Acute) Cephalgia (Acute) Anemia (Acute) Numbness and tingling of right side of face (Acute) - Physical Exam Vitals/I&O's: Vital Signs Temp Pulse Resp BP Pulse Ox 98.2 F 105 H 18 142/88 H 96 11/23/19 04:00 11/23/19 04:00 11/23/19 04:00 11/23/19 04:00 11/23/19 04:00 Oxygen Delivery Method Room Air Weight: 110.7 kg Body Mass Index (BMI) 46.0 Finger Stick Blood Glucose 211 General: Alert, Oriented x3, Cooperative, No apparent distress, Well developed, Well nourished HEENT: Atraumatic, PERRLA, EOMI, Normocephalic Oral: Moist Mucosa Neck: Supple, No JVD, Negative Carotid Bruits, No Nuchal Rigidity, Trachea Midline, Thyroid Normal Size and Texture Lungs: Clear to auscultation, Normal air movement, No rhonchi, No wheeze, No rales Cardiovascular: Regular rate, Regular Rhythm, Normal S1, Normal S2, No murmurs, PMI Normal, No rub noted, No Gallop Abdomen: Bowel Sounds Present, Soft, Non Tender, Non-Distended, Obese Extremities: No clubbing, No cyanosis, No edema, Capillary Refill Less than 3 Seconds Skin: No rashes, No breakdown Musculoskeletal: No Tenderness to Palpation of Joints or Extremities Neurological: Cranial nerves II-XII grossly intact, Neuro grossly intact, Muscle tone normal, Coordination normal, - - Patient has decreased sensation over her right facial area as compared with the left facial area Psych/Mental Status: Normal Affect, Appropriate, Alert and oriented to time, place, person, mood and affect Laboratory Results 11/23/19 02:40: WBC 8.2, RBC 3.92 L, Hgb 9.8 L, Hct 30.8 L, MCV 78.6 L, MCH 25.0 L, MCHC 31.8 L, RDW Std Deviation 47.8 H, RDW Coeff of Millie 16.8 H, Plt Count 238, MPV 8.6, Immature Gran % (Auto) 1.100 H, Neut % (Auto) 53.4, Lymph % (Auto) 38.3, Petroleum % (Auto) 5.5, Eos % (Auto) 1.5, Baso % (Auto) 0.2, Absolute Neuts (auto) 4.4, Absolute Lymphs (auto) 3.13, Nucleated RBC % 0 11/23/19 02:40: PT 13.3, INR 1.1, APTT 24.0 L 11/23/19 02:40: Sodium 136, Potassium 3.4 L, Chloride 103, Carbon Dioxide 25.0, Anion Gap 8, BUN 15, Creatinine 0.60, Estim Creat Clear Calc 106.28, Est GFR (MDRD) Af Amer 153, Est GFR (MDRD) Non-Af 127, BUN/Creatinine Ratio 25.0 H, Glucose 221 H, Calcium 8.2 L, Troponin I < 0.015 Current Medications Sodium Chloride 1,000 ml/ N/A 1,000 mls @ 112 mls/hr IV .[id number] [facility] Stop: 11/24/19 02:16 Last Admin: 11/23/19 02:45 Dose: 1 ml/kg/hr, 112 mls/hr Documented by: Sodium Chloride () 250 mls @ 15 mls/hr IV .[id number] PRN PRN Reason: Saline Flush Sodium Chloride () 250 mls @ 15 mls/hr IV .[id number] PRN PRN Reason: Additional IVPB Infusion Sodium Chloride () 10 - 40 ml IV UD PRN PRN Reason: SALINE FLUSH Assessment/Plan All Active Problems Right facial numbness (Acute) Bilateral leg numbness (Acute) Cephalgia (Acute) Anemia (Acute) Numbness and tingling of right side of face (Acute) #1 right facial paresthesias-probably as a sequelae to her migraine, rule out CVA-patient will be placed in observation status on PCU, MRI will be obtained-patient states she is severely claustrophobic and when she had her last MRI, she had to be given ketamine, I told her I would write for Ativan to be administered before the MRI. #2 [id number] will be given oral potassium #3 migraine cephalgia-patient was given IV Phenergan in the emergency room, patient cannot take nonsteroidal anti-inflammatory medications, she is able to take morphine for pain however. Patient's is on multiple medications for chronic migraines, she is unable to take triptans #4 posttraumatic stress disorder #5 chronic depression #6 anxiety disorder #7 factor V Leiden-patient takes Xarelto, patient states that when she was on Eliquis she had a pulmonary embolism and was switched to Xarelto. #8 class III obesity OBSV E&M: 95062 Initial observation care L3
[2019-11-23] MEDS: Morphine 4 MG/ML Syringe IV ×2 (05:24→08:33)
[2019-11-23] MEDS: 0.9% Saline Lock 10 ML Syringe IV ×2 (05:25→06:41)
[2019-11-23] MEDS: Divalproex Sodium 250 MG Tablet PO ×2 (05:34→11:20)
[2019-11-23 05:43] LABS: Cholesterol 236 mg/dL (200); High Density Lipoprotein 60 mg/dL; Triglycerides 571 mg/dL
[2019-11-23] MEDS: Metoclopramide 10 MG/2 ML Vial 5 MG IV (06:37)
[2019-11-23] MEDS: DiphenhydrAMINE 50 MG/ML Syringe IV (06:37)
[2019-11-23] MEDS: Topiramate 200 MG Tablet PO (08:29)
[2019-11-23] MEDS: Rivaroxaban 20 MG Tablet PO (08:30)
--- NOTE | 2019-11-23 10:05 | NURSING ---
Addendum entered by Vera Ham 11/23/19 10:11: Patient now agreeing to stay for MRI Original Note: This RN interrogated patients loop recorder. At this time I explained the plan for the day is to try an IV steroid to treat her migraine symptoms. Patient voiced frustration and stated she'd rather stick with the benedryl and reglan. I explained that it is my impression that doctor wanted to try something more typically used for migraine. At this point the patient stated she would rather just go home and is agreeable to sign AMA papers.
[2019-11-23] MEDS: dexAMETHasone 10 MG/ML Vial IV (11:20)
--- NOTE | 2019-11-23 11:25 | NURSING ---
Patient demanding Saline be stropped and disconnected. Education given on hydration after IV contrast. Patient expressed understanding.
--- NOTE | 2019-11-23 12:10 | PN_ITS ---
Patient Problems: Active and Suspected Problems Right facial numbness (Acute) Bilateral leg numbness (Acute) Cephalgia (Acute) Anemia (Acute) Numbness and tingling of right side of face (Acute) - Physical Exam Vitals/I&O's: Vital Signs Temp Pulse Resp BP Pulse Ox 98.2 F 116 H 14 129/80 H 94 11/23/19 08:00 11/23/19 08:00 11/23/19 08:00 11/23/19 08:00 11/23/19 08:00 Oxygen Delivery Method Room Air Weight: 244 lb 0.827 oz Body Mass Index (BMI) 46.0 Finger Stick Blood Glucose 211 Intake and Output for Last 24 Hours 11/21/19 11/22/19 11/23/19 23:59 23:59 23:59 Intake Total 1568.27 / 1568.27 Balance 1568.27 / 1568.27 Laboratory Results 11/23/19 02:40: WBC 8.2, RBC 3.92 L, Hgb 9.8 L, Hct 30.8 L, MCV 78.6 L, MCH 25.0 L, MCHC 31.8 L, RDW Std Deviation 47.8 H, RDW Coeff of Millie 16.8 H, Plt Count 238, MPV 8.6, Immature Gran % (Auto) 1.100 H, Neut % (Auto) 53.4, Lymph % (Auto) 38.3, Hickory % (Auto) 5.5, Eos % (Auto) 1.5, Baso % (Auto) 0.2, Absolute Neuts (auto) 4.4, Absolute Lymphs (auto) 3.13, Nucleated RBC % 0 11/23/19 02:40: PT 13.3, INR 1.1, APTT 24.0 L 11/23/19 02:40: Sodium 136, Potassium 3.4 L, Chloride 103, Carbon Dioxide 25.0, Anion Gap 8, BUN 15, Creatinine 0.60, Estim Creat Clear Calc 106.28, Est GFR (MDRD) Af Amer 153, Est GFR (MDRD) Non-Af 127, BUN/Creatinine Ratio 25.0 H, Gluc ose 221 H, Calcium 8.2 L, Troponin I < 0.015 11/23/19 05:08: Hemoglobin A1c 8.0 H 11/23/19 05:08: Triglycerides 571 H, Cholesterol 236 H, LDL Cholesterol TNP, VLDL Cholesterol TNP, HDL Cholesterol 60 Current Medications Acetaminophen (Tylenol) 650 mg PO Q6H PRN PRN PRN Reason: Pain Score 1-10/Temp > 100.7 F Divalproex Sodium (Depakote) 250 mg PO Q6 [facility] Last Admin: 11/23/19 11:20 Dose: 250 mg Documented by: Hydralazine HCl (Apresoline Iv) 5 mg IV Q30M PRN PRN Reason: to maintain BP goals Sodium Chloride 1,000 ml/ N/A 1,000 mls @ 112 mls/hr IV .[id number] [facility] Stop: 11/24/19 02:16 Last Infusion: 11/23/19 11:24 Dose: 0 ml/kg/hr, 0 mls/hr Documented by: Sodium Chloride () 250 mls @ 15 mls/hr IV .[id number] PRN PRN Reason: Saline Flush Sodium Chloride () 250 mls @ 15 mls/hr IV .[id number] PRN PRN Reason: Additional IVPB Infusion Labetalol HCl (Trandate) 10 - 20 mg IV Q10M PRN PRN PRN Reason: to maintain BP goals Promethazine HCl (Phenergan) 25 mg IM Q6H PRN PRN PRN Reason: Breakthrough Nausea/Vomiting Rivaroxaban (Xarelto) 20 mg PO DAILY [facility] Last Admin: 11/23/19 08:30 Dose: 20 mg Documented by: Sodium Chloride () 10 - 40 ml IV UD PRN PRN Reason: SALINE FLUSH Last Admin: 11/23/19 06:41 Dose: 10 ml Documented by: Topiramate (Topamax) 200 mg PO BID [facility] Last Admin: 11/23/19 08:29 Dose: 200 mg Documented by: Medical Necessity - Tobacco Use Smoking Status: Never smoker Tobacco Use: Non-smoker Assessment/Plan All Active Problems Right facial numbness (Acute) Bilateral leg numbness (Acute) Cephalgia (Acute) Anemia (Acute) Numbness and tingling of right side of face (Acute) Per [facility] records, patient has been [facility], [facility], [facility], [facility] and [facility] facility all within this month alone. Multiple notes from different providers report frequent visits.
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
--- NOTE | 2019-11-23 13:27 | NURSING ---
This RN explained to the patient that her MRI was canceled because one was done in [place] not long ago. I explained the doctor was choosing to consult neurology instead. She was offered Maxalt or Tylenol for her headache. She refused both, signed the AMA papers and left.
[2019-11-25 08:41] LABS: Bedside Glucose 203 mg/dL (70-110)
== END 2019-11-23 13:26 | disposition left against medical advice (07) ==
LOC: ED 03:01 → PCU 06:42
PROVIDERS: Admitting Provider Internal Medicine; Emergency Provider Emergency Medicine; PCP Nurse Practitioner Family; Visit Provider Hospitalist
DX: G43.109 Migraine with aura, not intractable, without status migrainosus (principal); D63.8 Anemia in other chronic diseases classified elsewhere; Z76.5 Malingerer [conscious simulation]; E78.5 Hyperlipidemia, unspecified; E11.9 Type 2 diabetes mellitus without complications; F43.10 Post-traumatic stress disorder, unspecified; F32.9 Major depressive disorder, single episode, unspecified; D50.9 Iron deficiency anemia, unspecified; D68.51 Activated protein C resistance; F41.9 Anxiety disorder, unspecified; Z86.711 Personal history of pulmonary embolism; Z79.01 Long term (current) use of anticoagulants; Z79.899 Other long term (current) drug therapy; E87.6 Hypokalemia; E66.9 Obesity, unspecified; Z68.42 Body mass index [BMI] 45.0-49.9, adult
CPT/HCPCS: 70450; 70496; 70498; 71045; 80048; 80061; 82962; 83036; 84484; 85025; 85610; 85730; 93005; 96361; 96374; 96375; 96376; 99218; 99285; J7030; Q9967; A4216; G0378

== ENCOUNTER 2019-11-28 16:48 | Emergency (ER) | payer MEDICAID, SELFPAY ==
[2019-11-23 09:09] VITALS: BMI 46.0
[2019-11-28] VITALS (10 sets, daily range): BP systolic 87–150; BP diastolic 54–100; PULSE 102–122; RESP 17–30; TEMP 36.5; O2SAT 96–98; BMI 46.7
--- NOTE | 2019-11-28 17:31 | PCM.CONS.GEN ---
Reason for Consult Date of Consultation: 11/28/19 History of Present Illness: The patient is a 29 year old F presents the ER due to pain at the left chest port site. Patient states it was placed at as she gets medications for migraines IV daily for 5 days at the end of the month. Patient states that this area has been sore for a few days and she is also noticed some purulent drainage. This is patient's second port for IV access. Patient states last port had to be removed due to sepsis about 2 to 3 years ago at . They are currently working on IV access, labs and blood cultures to be drawn after access obtained. Patient states she was diagnosed with a PE and July 2019 and been on Xarelto x3 months currently has been off for a month. Past Medical History Past Medical History (Chronic Problems): Chronic Problems Pulmonary embolus, right (Chronic) Factor V Leiden (Chronic) Anxiety (Chronic) MDD (major depressive disorder) (Chronic) PTSD (post-traumatic stress disorder) (Chronic) Pulmonary emboli (Chronic) Migraines (Chronic) TIA (transient ischemic attack) (Chronic) Allergies furosemide [From Lasix] Allergy (Verified 11/28/19 16:50) Hives Iodinated Contrast Media Allergy (Verified 11/28/19 16:50) Hives metformin Allergy (Verified 11/28/19 16:50) Unknown HIGH LACTIC ACID LEVELS ondansetron [From Zofran] Allergy (Verified 11/28/19 16:50) Hives propranolol Allergy (Verified 11/28/19 16:50) Angioedema sumatriptan [From Imitrex] Allergy (Verified 11/28/19 16:50) Other CHEST PAIN HEART ATTACK SYMPTOMS ketorolac [From Toradol] Adverse Reaction (Verified 11/28/19 16:50) Hives metoclopramide [From Reglan] Adverse Reaction (Verified 11/28/19 16:50) Other NEEDS BENADRYL WITH MED TO TOLERATTE prochlorperazine [From Compazine] Adverse Reaction (Verified 11/28/19 16:50) Other AGIATION, PT STATES NEEDS BENADRYL Home Medications: Ambulatory Orders Medication Instructions Recorded Topiramate [Topamax] 200 mg PO BID 09/10/18 Rivaroxaban [Xarelto] 20 mg PO DAILY 06/02/19 Magnesium 500 mg PO BID 09/18/19 Vitamin B Complex 2 ea PO DAILY 09/18/19 proMETHazine suppository 25 mg RECTAL Q6H PRN PRN #6 suppos. 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 Denies: Anorexia HEENT: Denies: Difficulty Swallowing Cardiovascular: Reports: Chest Pain - At the left port site Respiratory: Denies: Shortness of Breath Gastrointestinal: Denies: Abdominal Pain Genitourinary: Denies: Dysuria Neurological: Denies: Confusion Hematologic/ Lymphatic: Denies: Easy Bleeding - Physical Exam Vitals/I&O's: Vital Signs Temp Pulse Resp BP Pulse Ox 97.7 F L 122 H 17 150/100 H 96 11/28/19 16:50 11/28/19 16:50 11/28/19 16:50 11/28/19 16:50 11/28/19 16:50 Oxygen Delivery Method Room Air Weight: 247 lb 5.738 oz Body Mass Index (BMI) 46.7 Finger Stick Blood Glucose 211 General: Alert, Oriented x3, Cooperative Lungs: Normal air movement Cardiovascular: Regular rate Abdomen: Soft, Non Tender, Non-Distended Extremities: No clubbing, No cyanosis Skin: - - Left chest wound over port with 2 small openings a few millimeters in size adjacent to each other?able to see the gel portion of the port, and total area of wound is about 2 cm x 1 cm, with small amount of purulent fluid, no real erythema at site, ttp per pt Neurological: Cranial nerves II-XII grossly intact Psych/Mental Status: Normal Affect Current Medications Sodium Chloride () 1,000 mls @ 1,000 mls/hr IV .Q1H ONE Stop: 11/28/19 18:12 Vancomycin HCl 1,750 mg/ (Sodium Chloride) 535 mls @ 250 mls/hr IV X1 ONE Stop: 11/28/19 20:08 Assessment/Plan All Active Problems Right facial numbness (Acute) Bilateral leg numbness (Acute) Cephalgia (Acute) Anemia (Acute) Numbness and tingling of right side of face (Acute) 29-year-old female with pain at her left port site with port eroding through the skin minimal erythema small amount of purulence 1. Discussed with patient plan to remove port discussed procedure including risk including but not limited to bleeding, infection, and etc. Patient states she had this port placed at where she gets any medications for her migraines. Patient expressed understanding had no further questions this time. Patient will get IV antibiotics in the ER and sent home on p.o. antibiotics. Blood cultures will be obtained Paz Padron M.D. Pager: [phone] [facility] [address] [place] [address], [facility], [address] [place] [address] Office: [phone] Office Visits / Consults: [id number] OP Consult L2
[2019-11-28] MEDS: Acetaminophen 500 MG Tablet 1000 MG PO (17:39)
[2019-11-28] MEDS: Propofol 200 MG/20 ML Vial IV BOLUS (17:45)
[2019-11-28] MEDS: 0.9% Normal Saline 1,000 ML 1000 ML IV (17:46)
--- NOTE | 2019-11-28 17:55 | CM.ED ---
SOCIAL WORK INFORMANT: DR. BAÑUELOS REASON FOR REFERRAL: ED CARE PLAN FOLLOW UP MET WITH PATIENT IN ROOM. PATIENT AWARE ACTIVE ED CARE PLAN IN PLACE. PATIENT PROVIDED WITH COPY OF ED CARE PLAN AND RESOURCES. INFORMED PATIENT ATTEMPTED TO MAIL COPY OF ED CARE PLAN AND RESOURCES TO PATIENTS HOME VIA CERTIFIED MAIL AND IT WAS RETURNED. ENCOURAGED PATIENT TO UPDATE REGISTRATION WITH CORRECT ADDRESS. PATIENT VERBALIZED UNDERSTANDING. PATIENT DENIES ANY NEEDS AT THIS TIME. Sara HUFF, ENVIRONMENTAL FIELD TEAM MEMBER, MANAGER CAR.
[2019-11-28 18:20] LABS: Absolute Lymphocyte Count 2.33 X10^3/uL (0.83-4.51); Absolute Neutrophil Count 5.2 X10^3/uL (2.0-7.7); Basophil# 0.02 X10^3/uL; Basophil% 0.2 % (0-1); Eosinophil# 0.08 X10^3/uL; Hematocrit 32.3 % (37-47); Hemoglobin 10.4 g/dL (12.0-15.0); Lymphocyte # 2.33 X10^3/ul (4.0); Lymphocyte % 28.7 % (19-41); Mean Corp Hgb Conc 32.2 g/dL (32-36); Mean Corpuscular Hgb 25.5 pg (27.0-32.0); Mean Corpuscular Volume 79.2 fL (81-99); Mean Platelet Vol. 8.9 fl (6.2-12.0); Monocyte# 0.42 X10^3/uL; Monocyte% 5.2 % (0-10); NRBC Flagged by Analyzer 0 % (0-5); Neutrophil # 5.22 X10^3/uL (2.7-7.7); Neutrophil % 64.4 % (47-70); Platelet Count 249 K/mm3 (150-450); RBC Distribution Width CV 17.1 % (11.6-14.6); RBC Distribution Width SD 48.7 fl (35.1-43.9); Red Blood Count 4.08 M/mm3 (4.2-5.4); White Blood Count 8.1 K/mm3 (4.4-11.0)
[2019-11-28 18:35] LABS: ALB/GLOB Ratio 0.8 RATIO (0.9-2.4); AST(SGOT) 24 U/L (15-37); Alanine Aminotransfer ALT/SGPT 29 U/L (13-56); Albumin, Serum 2.9 g/dL (3.2-5.0); Alkaline Phosphatase 97 U/L (45-117); Anion Gap 8 (5-15); BUN 15 mg/dL (7-18); BUN/Creat Ratio 25.3 RATIO (10-20); Calcium,Total 8.8 mg/dL (8.5-10.1); Chloride 101 mmol/L (98-107); Creatinine, Serum 0.59 mg/dL (0.55-1.02); EST Glomerular Filtration Rate 129 mL/min (>60); Est Glom Filt Rate - Afr Amer 156 mL/min (>60); Estimated Creatinine Clearance 108.08 ml/min; Globulin 3.7 g/dL (2.2-4.2); Glucose 192 mg/dL (74-106); Internal QC Validated? YES +Cl - CLEAR BKGD; Potassium 3.9 mmol/L (3.5-5.1); Pregnancy, Serum, hCG Quali. NEGATIVE Negative; Protein, Total 6.6 g/dL (6.4-8.2); Sodium Level 134 mmol/L (136-145)
[2019-11-28 18:46] LABS: Lactic Acid 1.2 mmol/L (0.4-1.9)
--- NOTE | 2019-11-28 18:46 | OP.PCM_ITS ---
Report of Operation Date of Procedure: 11/28/19 Pre-Operative Diagnosis: infected port/wound over port site Post-Operative Diagnosis: Same Surgery/Procedure Performed:: removal of left IJ chest port Type of Anesthesia:: Local MAC Anesthesiologist: Kit Reyes - ER doc Specimen's removed: port catheter for Gram stain/cx Estimated Blood Loss (mL): minimal Description of Procedure: Informed consent was obtained. Sedation with propofol was induced per ER physician, Dr. Reyes. The previous port incision was infiltrated with lidocaine 1% with epinephrine followed 8 cc. Incision made with a 15 blade scalpel. This was deepened down to the port, the port was dissected free using scissors. With pressure held at the IJ site the catheter was removed and the port was removed from its pocket. The open wound did expose the gel area of the port., Wound was irrigated. The incision site was closed loosely with Steri- Strips. Patient tolerated procedure well. - Complications none
--- NOTE | 2019-11-28 19:11 | ED.DCSUM_ITS ---
- ER Visit Summary Date of Service: 11/28/19 Chief Complaint: Port infected History of Present Illness: The patient is a [address] Kent. She reports that she had a port placed at [facility] by a doctor whose name she does not remember it because I get medications for migraine 5 days a m [facility]. She states that 2 days ago the left side of her chest began aching. Today there has been yellow/green drainage. Patient denies any fever or chills. Physical Examination: Vitals: Stable. Afebrile. General: Well-nourished and well-developed. Head: Normocephalic atraumatic. Neck: Supple, no lymphadenopathy. No JVD. Nontender. Cardiovascular: Regular rate and rhythm. No murmurs. Respiratory: No respiratory distress. Clear to auscultation bilaterally. On the left side of his her chest to the port is present. There are multiple prior access skin defects present. There is mild erythema. There is no induration. I was able to express 1 drop of purulent material. Abdominal: Soft, nontender, nondistended, normal bowel sounds. No guarding, rebound, or peritoneal signs. Back: Nontender. Extremities: Nontender, no edema. Skin: Normal color, no rash. Neurologic: Alert and oriented ?3. Cranial nerves II through XII are intact. Normal strength and sensation. Psych: Normal affect. Test Results: CBC shows an H&H 10.4 and 32.3. Chem-7 shows a sodium 134 and glucose 118. LFTs show an albumin 2.9. test is negative. Lactic a mary jane is 1.2. Emergency Department Course and Treatment: Patient was given Tylenol p.o. She was given vancomycin IV. I discussed the patient with Dr. Padron who has come to the emergency department the patient had procedural sedation undertaken with propofol and the port was removed. The tip was sent for culture. Treatment Plan: Patient will be discharged on doxycycline and Bactroban. Instructed to follow-up with her surgeon who placed the port at as soon as possible. Follow-up her primary care physician for a wound check in 2 days. Return to the emergency department for any worsening symptoms. Disposition: To home in improved and stable condition. Impression: 1. Infected port left chest. 2. Procedural sedation. 3. ED care plan. This note was generated with [employer] software. It may contain incorrect words, spelling, and punctuation that were not noted in review of the chart prior to signing ED Disposition - Plan for ED Patient: Disposition: Home or Assisted Living Instructions: ED Wound Care Prescriptions: Mupirocin [Bactroban] 1 applic TOPICAL TID #1 tube Prescription Printed Doxycycline 100 mg PO BID #14 cap Prescription Printed Referrals: Barbara Lopez, FREDO-C [Primary Care Provider] - 2 Days for wound check Additional Instructions: Follow-up with the surgeon who placed your port as soon as possible.
--- NOTE | 2019-11-28 20:39 | ED.RN ---
PT CALLS THIS RN TO ROOM TO ASK IF SHE CAN BE DC'D. RN EDUCATED PT ON RISKS OF LEAVING PRIOR TO COMPLETION OF IV ANTIBIOTIC DOSE. PT STATES SHE IS AWARE OF THE RISK AND SHE JUST WANTS TO GO HOME. DR BAÑUELOS MADE AWARE. PT DC'D.
--- NOTE | 2019-12-01 20:22 | ED.RN ---
ATTEMPTED TO CALL AND LEAVE MESSAGE FOR PATIENT AT THIS TIME FOR MEDICATION LEFT IN THE ER. UNABLE TO LEAVE MESSAGE PHONE DOES NOT WORK EMERGENCY CONTACT PHONE DOES NOT WORK. MEDICATION REMAINS AT NURSING STATION
== END 2019-11-28 20:40 | disposition home or self-care (01) ==
LOC: ED 17:17
PROVIDERS: Emergency Provider Emergency Medicine; PCP Nurse Practitioner Family
DX: T82.7XXA Infection and inflammatory reaction due to other cardiac and vascular devices, implants and grafts, initial encounter (principal); G43.909 Migraine, unspecified, not intractable, without status migrainosus; D68.51 Activated protein C resistance; E11.9 Type 2 diabetes mellitus without complications; Z86.73 Personal history of transient ischemic attack (TIA), and cerebral infarction without residual deficits; Z86.711 Personal history of pulmonary embolism; Z79.899 Other long term (current) drug therapy
CPT/HCPCS: 36590; 80053; 83605; 84703; 85025; 87040; 87070; 87205; 96361; 96365; 96366; 96375; 99152; 99285; J7030; J7040; A4216

== ENCOUNTER 2019-12-12 04:02 | Emergency (ER) | payer MEDICAID, SELFPAY ==
[2019-11-28 16:50] VITALS: BMI 46.7
[2019-12-12 04:03] VITALS: BP 140/91; PULSE 113; RESP 16; TEMP 37.2; O2SAT 98; BMI 48.2
--- NOTE | 2019-12-12 04:26 | CT_ITS ---
STUDY: CT BRAIN WITHOUT CONTRAST REASON FOR EXAM: Female, 29 years old. FALL ON XARELTO, NOW HAVING JAW PAIN, N/V, PHOTOPHOBIA RADIATION DOSAGE (If Supplied By Facility): CTDIvol = ( 44.99 ) mGy, DLP = ( 745.49 ) mGycm TECHNIQUE: Transaxial CT imaging of the brain was performed without administration of intravenous contrast material. Individualized dose optimization techniques were used for this CT. COMPARISON: CT brain noncontrast 11/23/2019. October 01, 20122019. FINDINGS: Normal soft tissue structures. Normal calvarium. Normal size ventricles and extra-axial spaces for the patient''s age. Normal white matter tracts of the cerebral hemispheres. Normal basal ganglia and thalami. Normal brainstem. Normal cerebellum. There is no intracranial hemorrhage. There are no findings of an acute ischemic infarction. Normal visualized paranasal sinuses. The bilateral mastoid air cells and ossicles are unopacified. CT/Brain/Head without Contrast IMPRESSION: There is no acute intracranial pathology. There is no significant interval change. Electronically Signed: Kayla Torres MD at 5:23 EDT , Service support ,
--- NOTE | 2019-12-12 04:38 | ED.DCSUM_ITS ---
- ER Visit Summary Date of Service: 12/12/19 Chief Complaint: [Headache] History of Present Illness: The patient is a 29 F [presents to the emergency department complaint of a migraine headache that started 3 days ago. Patient describes the pain is left side of her head. Patient has history of chronic glen padmini and sees a neurologist. She is currently on Aimovig as well as Topamax. Patient states the pain came on more abruptly than usual. Patient denies having any auras this time with this headache. Patient complains of some pain radiating into her left jaw which is unusual. She denies any fevers or recent illness. She denies any falls or head injuries. Patient is on Xarelto for history of PE and factor V Leiden. Patient presented via EMS.] Physical Examination: [HEENT-PERRLA, EOMI. Cranial nerves II through XII grossly intact. TMs clear. Mucous membranes moist. No adenopathy. Cardiovascular-regular rate and rhythm without murmur or ectopy Lungs-clear to auscultation, chest wall stable without crepitus or subcu emphysema Abdomen-normoactive bowel sounds, soft, nontender, no rebound or rigidity, no peritoneal signs. Neuro tqnm-gcczgp-hypi and heel rivas testing within normal limits, negative Romberg, negative for drift, fundi benign Extremities-intact ?4, normal range of motion, normal pulses, atraumatic] Test Results: [CT scan of the brain was obtained given the atypical nature of her headache and the fact that she is on Xarelto. CT scan was read as nothing acute and unchanged from prior.] Emergency Department Course and Treatment: Patient had an IV line established and was given a liter normal saline fluid bolus as well as Reglan 10 mg IV and Benadryl 50 mg IV. Patient received 4 mg of morphine IV. Patient also received Norflex 60 mg IM. Patient states she really did not have any relief with that and was given a milligram of Dilaudid IV. Patient has multiple allergies to medications including Toradol. Patient states that she cannot take DHE because of her blood clot history and risk of stroke. Patient states that she cannot take steroids because of her diabetes and the fact that it elevates her blood sugars. She is currently on Depakote as well as Topamax and Aimovig. Patient has had Botox injections in the past which really have not helped her much. Patient is quite complicated medically. Initially did not realize patient had a care plan in place for frequent visits. She was advised to follow-up with her neurologist and obtain a care plan as far as when she presents to the emergency department their preferred method of treatment for her. Treatment Plan: [Follow-up with your neurologist within the next 3 to 5 days. Patient advised to return if condition should worsen anyway.] Disposition: [Discharged home in stable condition] Impression: [Migrainous cephalgia] This note was generated with [employer] dictation software. It may contain incorrect words, spelling, and punctuation that were not noted in review of the chart prior to signing ED Disposition - Plan for ED Patient: Referrals: Barbara Lopez, FREDO-C [Primary Care Provider] -
[2019-12-12] MEDS: 0.9% Normal Saline 1,000 ML 1000 ML IV (04:43)
[2019-12-12] MEDS: DiphenhydrAMINE 50 MG/ML Syringe IV (04:43)
[2019-12-12] MEDS: Metoclopramide 10 MG/2 ML Vial IV (04:45)
[2019-12-12] MEDS: Morphine 4 MG/ML Syringe IV (04:46)
[2019-12-12] MEDS: HYDROmorphone 1 MG/ML Syringe IV (05:36)
--- NOTE | 2019-12-12 05:56 | ED.DEP ---
ED Disposition - Plan for ED Patient: Instructions: ED, Migraine (Classical) Prescriptions: Orphenadrine [Norflex ER] 100 mg ORAL BID PRN #10 tab PRN Reason: Pain Score 6-10/10 Prescription Printed Referrals: Barbara Lopez NP-C [Primary Care Provider] - Additional Instructions: see your neurologist in 2-3 days
[2019-12-12] MEDS: Orphenadrine 60 MG/2 ML Ampul IM (06:12)
[2019-12-12 06:14] VITALS: BP 129/103; PULSE 103; RESP 16; O2SAT 97
--- NOTE | 2019-12-12 06:20 | ED.DEP ---
ED Disposition - Plan for ED Patient: Instructions: ED, Migraine (Classical) Prescriptions: Orphenadrine [Norflex ER] 100 mg ORAL BID PRN #10 tab PRN Reason: Pain Score 6-10 Prescription Printed proMETHazine tablet [Phenergan] 25 mg PO Q6H PRN PRN #10 tab PRN Reason: Nausea Prescription Printed Referrals: Barbara Lopez NP-C [Primary Care Provider] - Additional Instructions: see your neurologist in 2-3 days
== END 2019-12-12 06:22 | disposition home or self-care (01) ==
LOC: ED 05:33
PROVIDERS: Emergency Provider Emergency Medicine; PCP Nurse Practitioner Family
DX: G43.909 Migraine, unspecified, not intractable, without status migrainosus (principal); D68.51 Activated protein C resistance; Z86.711 Personal history of pulmonary embolism; Z79.02 Long term (current) use of antithrombotics/antiplatelets; Z79.899 Other long term (current) drug therapy
CPT/HCPCS: 70450; 96361; 96372; 96374; 96375; 99285; J7030; A4216

== ENCOUNTER 2019-12-24 10:32 | Emergency (ER) | payer MEDICAID, SELFPAY ==
[2019-12-24] VITALS (7 sets, daily range): BP systolic 136–161; BP diastolic 65–116; PULSE 102–119; RESP 16–19; TEMP 35.8–36.6; O2SAT 95–100; BMI 41.5
--- NOTE | 2019-12-24 10:58 | RAD_ITS ---
STUDY: X-RAY CHEST REASON FOR EXAM: Female, 29 years old. PT DIAGNOSED WITH PE ON SATURDAY, PRESENTS TODAY WITH WORSENING SOB AND CHEST PAIN. TECHNIQUE: Single AP portable view of the chest. COMPARISON: Comparison is made to prior examination of November 23, 2019.. FINDINGS: EKG electrodes are seen. A loop recorder device is overlying the left cardiac aspect. The lungs are clear and expanded. There is no demonstrated pleural abnormality. Normal size heart. Normal mediastinum and teja. Normal visualized pulmonary arteries. Normal visualized aortic arch and descending thoracic aorta. Normal visualized thoracic spine. Normal visualized ribs, clavicles, and shoulders. There is no demonstrated abnormality of the visualized soft tissue structures of the upper abdomen. RAD/Chest 1 View (Portable) IMPRESSION: Normal x-ray examination of the chest. Electronically Signed: Abdulaziz Chicas, at 12:06 EDT , Service support ,
--- NOTE | 2019-12-24 10:58 | EKG12_ITS ---
Test Reason : SOB Blood Pressure : / mmHG Vent. Rate : 119 BPM Atrial Rate : 119 BPM P-R Int : 160 ms QRS Dur : 094 ms QT Int : 324 ms P-R-T Axes : 041 017 016 degrees QTc Int : 455 ms Sinus tachycardia Nonspecific T wave abnormality Abnormal ECG Confirmed by ADRIANA HOLLIS, KAYLYNN ([id number]), editor greeting card ADRIANNA DOZIER ([id number]) on 12/28/2019 2:02:41 PM Referred By: JEN Confirmed By:CODEY WRIGHT MD
--- NOTE | 2019-12-24 11:02 | ED.DCSUM_ITS ---
- ER Visit Summary Date of Service: 12/24/19 Chief Complaint: Pain after recent diagnosis of a PE History of Present Illness: The patient is a 29 F of factor V Leiden clotting disorder diagnosed with a PE on Saturday several days ago. Patient states that she was hospitalized at [facility] after being diagnosed with a PE on Saturday. Has been on Xarelto since that time. States she has not missed a dose of the medication. Today she had midsternal chest pain. Denies any other symptoms. Except nausea. She denies any melena, fever or chills. Physical Examination: Young female no acute distress vital signs stable afebrile. Pulse ox 95% on room air no signs hypoxia. H EENT exam unremarkable neck nontender. Lungs clear to auscultation bilaterally. Heart regular rhythm rate about 100 no murmur. Chest wall nontender. No ecchymosis or bruising. No subcu air crepitus. Abdomen soft nontender normal bowel sounds no peritoneal signs. Extremities moves all 4. Calves are nontender without edema or cords. Back nontender. Neurologically she is awake and alert with no focal motor deficits. Test Results: EKG shows sinus tachycardia 119. CBC white count of 5. Hemoglobin 11 baseline hemoglobin for this patient is 10 chemistries unremarkable normal creatinine and gap. Chest x-ray portable 1 view read both myself and radiologist shows no acute abnormality. Read as normal. Normal cardiac silhouette. No effusions. No infiltrate. Emergency Department Course and Treatment: Patient with reported chest pain after recently being diagnosed with a PE. States she is on anticoagulation Xarelto and has been on it consistently since her diagnosis. Clinically is stable looks well. Cardiac work-up will be pursued. Per patient request she was treated with Reglan and Benadryl for nausea. On repeat exam at 1222 she is doing well. Given her negative work-up and already on Xarelto for a known PE I doubt that there is more that we should be doing at this time. She is safe to be discharged to home. She can follow-up as an outpatient with her primary care provider. Treatment Plan: Continue her current Xarelto. Follow-up with her primary care physician. Return if worse. Disposition: Discharge Impression: Acute chest pain History of recent diagnosis of pulmonary emboli with a history of prior pulmonary emboli History of factor V Leiden clotting disorder This note was generated with [employer] dictation software. It may contain incorrect words, spelling, and punctuation that were not noted in review of the chart prior to signing ED Disposition - Plan for ED Patient: Referrals: Barbara Lopez, POWERHOUSE OPERATOR-C [Primary Care Provider] -
[2019-12-24] MEDS: DiphenhydrAMINE 50 MG/ML Syringe IV (11:26)
[2019-12-24] MEDS: Metoclopramide 10 MG/2 ML Vial 5 MG IV ×2 (11:26→12:49)
[2019-12-24 11:31] LABS: Absolute Lymphocyte Count 1.61 X10^3/uL (0.83-4.51); Absolute Neutrophil Count 3.2 X10^3/uL (2.0-7.7); Basophil# 0.02 X10^3/uL; Basophil% 0.4 % (0-1); Eosinophil# 0.17 X10^3/uL; Eosinophils% 3.2 % (0-5); Hematocrit 35.5 % (37-47); Hemoglobin 11.2 g/dL (12.0-15.0); Lymphocyte # 1.61 X10^3/ul (4.0); Mean Corp Hgb Conc 31.5 g/dL (32-36); Mean Corpuscular Hgb 25.7 pg (27.0-32.0); Mean Corpuscular Volume 81.4 fL (81-99); Mean Platelet Vol. 8.8 fl (6.2-12.0); Monocyte# 0.33 X10^3/uL; Monocyte% 6.2 % (0-10); NRBC Flagged by Analyzer 0 % (0-5); Neutrophil # 3.21 X10^3/uL (2.7-7.7); Neutrophil % 59.8 % (47-70); Platelet Count 315 K/mm3 (150-450); RBC Distribution Width CV 14.8 % (11.6-14.6); RBC Distribution Width SD 43.8 fl (35.1-43.9); Red Blood Count 4.36 M/mm3 (4.2-5.4); White Blood Count 5.4 K/mm3 (4.4-11.0)
[2019-12-24 11:47] LABS: Anion Gap 11 (5-15); BUN 5 mg/dL (7-18); BUN/Creat Ratio 6.5 RATIO (10-20); Calcium,Total 9.8 mg/dL (8.5-10.1); Chloride 107 mmol/L (98-107); Creatinine, Serum 0.77 mg/dL (0.55-1.02); EST Glomerular Filtration Rate 95 mL/min (>60); Est Glom Filt Rate - Afr Amer 115 mL/min (>60); Estimated Creatinine Clearance 82.81 ml/min; Glucose 198 mg/dL (74-106); Potassium 3.8 mmol/L (3.5-5.1); Sodium Level 141 mmol/L (136-145)
--- NOTE | 2019-12-24 12:24 | ED.DEP ---
ED Disposition - Plan for ED Patient: Disposition: Home or Assisted Living Instructions: Pulmonary Embolism Referrals: Barbara Lopez NP-C [Primary Care Provider] - 3-5 Days if not improving Additional Instructions: Continue your blood thinner Xarelto. Follow-up with your primary care provider. Return if feeling worse. Your labs, EKG and chest x-ray today were unremarkable.
== END 2019-12-24 12:49 | disposition home or self-care (01) ==
PROVIDERS: Emergency Provider Emergency Medicine; PCP Nurse Practitioner Family
DX: R07.9 Chest pain, unspecified (principal); D68.51 Activated protein C resistance; I26.99 Other pulmonary embolism without acute cor pulmonale; E11.9 Type 2 diabetes mellitus without complications; Z86.711 Personal history of pulmonary embolism; Z79.02 Long term (current) use of antithrombotics/antiplatelets
CPT/HCPCS: 71045; 80048; 85025; 93005; 96374; 96375; 96376; 99285; A4216

== ENCOUNTER 2020-01-03 00:24 | Emergency (ER) | payer MEDICAID, SELFPAY ==
[2019-12-24 10:33] VITALS: BMI 41.5
[2020-01-03 00:28] VITALS: BP 121/26; PULSE 113; RESP 24; TEMP 36.8; O2SAT 96; BMI 45.3
--- NOTE | 2020-01-03 00:40 | RAD_ITS ---
STUDY: X-RAY CHEST REASON FOR EXAM: Female, 29 years old. Chest pain worsening within the past few hours. TECHNIQUE: Frontal and lateral views of the chest. COMPARISON: 12/24/2019. FINDINGS: The lungs are mildly underexpanded. There is no demonstrated pulmonary infiltrate. There is no demonstrated pleural abnormality. Normal size heart. There is an implanted cardiac loop monitor. Normal mediastinum and teja. Normal visualized pulmonary arteries. Normal visualized aortic arch and descending thoracic aorta. Normal visualized thoracic spine. Normal visualized ribs, clavicles, and shoulders. There is no demonstrated abnormality of the visualized soft tissue structures of the upper abdomen. RAD/Chest PA and Lateral IMPRESSION: No evidence for acute cardiopulmonary pathology. Implanted cath lab tech. Electronically Signed: Jamel Eugene MD at 1:35 EDT , Service support ,
--- NOTE | 2020-01-03 00:41 | ED.VIS.GEN ---
History of Present Illness Chief Complaint: Chest Pain Informant: Patient Narrative: Stated she was recently diagnosed last week with 2 blood clots at her lung. She has a history of factor V Leiden with PE in the past. Currently she is on Lovenox injections as well as the blood thinner Xarelto. Patient was seen in our emergency department earlier this month and had a negative CAT scan of her chest for PE. She may have subsequently developed a PE afterwards. Patient has had multiple PEs in the past. She stated tonight her substernal sharp chest discomfort got worse. She denies any shortness of breath. Current severity is mild to moderate. She has taken Percocet at home with moderate relief of pain. - Past Medical History (1) Anemia Status: Acute (2) Bilateral leg numbness Status: Acute (3) Cephalgia Status: Acute (4) Numbness and tingling of right side of face Status: Acute (5) Right facial numbness Status: Acute (6) Anxiety Status: Chronic (7) Factor V Leiden Status: Chronic (8) MDD (major depressive disorder) Status: Chronic (9) Migraines Status: Chronic (10) PTSD (post-traumatic stress disorder) Status: Chronic (11) Pulmonary emboli Status: Chronic (12) Pulmonary embolus, right Status: Chronic (13) TIA (transient ischemic attack) Status: Chronic Past Medical History - Allergies and Home Meds Allergies/Adverse Reactions: Allergies furosemide [From Lasix] Allergy (Verified 01/03/20 00:28) Hives Iodinated Contrast Media Allergy (Verified 01/03/20 00:28) Hives metformin Allergy (Verified 01/03/20 00:28) Unknown HIGH LACTIC ACID LEVELS ondansetron [From Zofran] Allergy (Verified 01/03/20 00:28) Hives propranolol Allergy (Verified 01/03/20 00:28) Angioedema sumatriptan [From Imitrex] Allergy (Verified 01/03/20 00:28) Other CHEST PAIN HEART ATTACK SYMPTOMS ketorolac [From Toradol] Adverse Reaction (Verified 01/03/20 00:28) Hives metoclopramide [From Reglan] Adverse Reaction (Verified 01/03/20 00:28) Other NEEDS BENADRYL WITH MED TO TOLERATTE prochlorperazine [From Compazine] Adverse Reaction (Verified 01/03/20 00:28) Other AGIATION, PT STATES NEEDS BENADRYL Primary Care Physician: Barbara Lopez, FREDO-C [Primary Care Provider] - Prior records reviewed: Yes Past Medical History: - - See problem list Surgical History: cholecystectomy, - - , tubal ligation, left ovary removed, loop recorder implanted, Mediport implanted Lives: With Family Smoking Status: Never smoker Alcohol: None Drugs: None - Family History Maternal Family History: Reports: Heart Disease, Stroke Paternal Family History: Reports: High Cholesterol, Stroke Review of Systems General: Denies: Chills, Fever, Sweats Eyes: Denies: Visual changes - bilaterally, Diplopia ENT: Denies: Rhinorrhea, Sore throat Cardiovascular: Reports: Chest pain. Denies: Palpitations Respiratory: Denies: Dyspnea, Cough, Dyspnea on exertion Gastrointestinal: Denies: Abdominal pain, Nausea, Vomiting, Diarrhea, Melena, Hematochezia Genitourinary: Denies: Dysuria, Hematuria, Frequency Musculoskeletal: Denies: Back pain, Extremity Pain Skin: Denies: Rash, Wounds Neurological: Denies: Headache, Weakness, Numbness Physical Exam Vital Signs/Narrative: Vital Signs Temp Pulse Resp BP Pulse Ox 01/03/20 00:28 98.2 F 113 H 24 H 121/26 H 96 General: Well nourished, Well developed, No Acute Distress Head: Normocephalic, Atraumatic Eyes: Perrl, EOMI ENT: Moist mucous membranes, No rhinorrhea Neck: Supple, Nontender Cardiovascular: No murmurs, Tachycardia Respiratory: No distress, CTA bilaterally, Chest nontender Abdomen: Soft, Nontender, Nondistended, Normal bowel sounds Back: Nontender, Normal Inspection Extremities: Nontender, No edema Skin: Normal color, No rash Neurological: Alert, Oriented x3, Cranial nerves II-XII grossly intact, Normal Strength, Normal Sensation Psychological: Normal affect, Normal Mood Diagnostic/Tx/Re-eval - Medical Decision Making EMS EKG shows sinus rhythm at a rate of 111. No ischemic findings. Chest x-ray obtained. Patient already took narcotic for pain at home. Refused repeat EKG and troponin in the emergency department. Have a low suspicion for acute coronary syndrome. I have a low suspicion for significant clot burden from a PE that she is ready been treated for. Chest x-ray normal. At this time I feel the patient can follow-up as an outpatient ED Disposition - Plan for ED Patient: Disposition: Home or Assisted Living Diagnosis: Chest pain, History of pulmonary embolism Instructions: Pulmonary Embolism Referrals: Barbara Lopez NP-C [Primary Care Provider] -
[2020-01-03 01:51] VITALS: BP 115/64; PULSE 101; RESP 15; O2SAT 98
== END 2020-01-03 02:34 | disposition home or self-care (01) ==
PROVIDERS: Emergency Provider Emergency Medicine; PCP Nurse Practitioner Family
DX: R07.9 Chest pain, unspecified (principal); I26.99 Other pulmonary embolism without acute cor pulmonale; D68.51 Activated protein C resistance; Z86.711 Personal history of pulmonary embolism; Z79.02 Long term (current) use of antithrombotics/antiplatelets; Z86.73 Personal history of transient ischemic attack (TIA), and cerebral infarction without residual deficits
CPT/HCPCS: 71046; 99283

== ENCOUNTER 2020-01-07 21:25 | Emergency (ER) | payer MEDICAID, SELFPAY ==
[2020-01-07 21:26] VITALS: BP 150/93; PULSE 117; RESP 16; TEMP 36.3; O2SAT 96; BMI 45.1
--- NOTE | 2020-01-07 21:56 | ED.VIS.GEN ---
History of Present Illness Chief Complaint: Headache Informant: Patient Onset: Days Context: Gradual Onset Timing: Continuous Current Severity: Moderate Maximum Severity: Moderate Narrative: The patient is a 29-year-old female with history of complex migraine, factor V, pulmonary embolus who presents to the emergency department headache. Patient states she had a mechanical fall on Saturday and struck her head. She was seen at an outside emergency department and had a head CT done which was negative. She states since that time, she is had a persistent headache. She states it feels like her normal migraine. She states that she has maxed out on her home medications. The patient has had multiple visits to the emergency department for similar complaints. She does have a standing care plan. She is had no visual change. She states that she has had vomiting. She denies any weakness or numbness. She denies any fevers or chills. Prior similar symptoms: Yes Recent Illness/Hospitalization: No Past Medical History - Allergies and Home Meds Allergies/Adverse Reactions: Allergies furosemide [From Lasix] Allergy (Verified 01/07/20 21:26) Hives Iodinated Contrast Media Allergy (Verified 01/07/20 21:26) Hives metformin Allergy (Verified 01/07/20 21:26) Unknown HIGH LACTIC ACID LEVELS ondansetron [From Zofran] Allergy (Verified 01/07/20 21:26) Hives propranolol Allergy (Verified 01/07/20 21:26) Angioedema sumatriptan [From Imitrex] Allergy (Verified 01/07/20 21:26) Other CHEST PAIN HEART ATTACK SYMPTOMS ketorolac [From Toradol] Adverse Reaction (Verified 01/07/20 21:26) Hives metoclopramide [From Reglan] Adverse Reaction (Verified 01/07/20 21:26) Other NEEDS BENADRYL WITH MED TO TOLERATTE prochlorperazine [From Compazine] Adverse Reaction (Verified 01/07/20 21:26) Other AGIATION, PT STATES NEEDS BENADRYL Primary Care Physician: Barbara Lopez NP-C [Primary Care Provider] - Prior records reviewed: Yes Past Medical History: - - Complex migraine, factor V Surgical History: cholecystectomy, - - , tubal ligation, left ovary removed, loop recorder implanted, Mediport implanted Smoking Status: Never smoker - Family History Maternal Family History: Reports: Heart Disease, Stroke Paternal Family History: Reports: High Cholesterol, Stroke Review of Systems General: Denies: Chills, Fever, Sweats Eyes: Denies: Visual changes - bilaterally, Diplopia ENT: Denies: Rhinorrhea, Sore throat Cardiovascular: Denies: Chest pain, Palpitations Respiratory: Denies: Dyspnea, Cough, Dyspnea on exertion Gastrointestinal: Reports: Nausea, Vomiting. Denies: Abdominal pain, Diarrhea, Melena, Hematochezia Genitourinary: Denies: Dysuria, Hematuria, Frequency Musculoskeletal: Denies: Back pain, Extremity Pain Skin: Denies: Rash, Wounds Neurological: Reports: Headache. Denies: Weakness, Numbness Physical Exam Vital Signs/Narrative: Vital Signs Temp Pulse Resp BP Pulse Ox 01/07/20 21:26 97.3 F L 117 H 16 150/93 H 96 Inital Vital Signs reviewed: Yes General: Well nourished, Well developed, No Acute Distress Head: Normocephalic, Atraumatic Eyes: Perrl, EOMI ENT: Moist mucous membranes, No rhinorrhea Neck: Supple, Nontender Cardiovascular: Regular rate, Regular rhythm, No murmurs Respiratory: No distress, CTA bilaterally, Chest nontender Abdomen: Soft, Nontender, Nondistended, Normal bowel sounds Back: Nontender, Normal Inspection Extremities: Nontender, No edema Skin: Normal color, No rash Neurological: Alert, Oriented x3, Cranial nerves II-XII grossly intact, Normal Strength, Normal Sensation Psychological: Normal affect, Normal Mood Diagnostic/Tx/Re-eval - Medical Decision Making The patient presents complaining of severe migraine. She is not photophobic or phonophobic. She is not meningitic or encephalopathic. She is in no acute distress. The patient does have an active care plan. The patient did have a port prior for migraine treatment, but it did get infected and has removed. IV was attempted 3 separate times and IVS access was not able to be established. The patient was offered IM medications which she refused. At this point, I do not feel the patient would benefit from opiate treatment. In review of her prescription reporting, she has had 52 prescriptions from 32 providers. She was admitted recently for intractable migraine and left AMA because she was not receiving narcotics. I did career development counselor the patient that she should follow-up with her neurologist to determine plan of care. She will be discharged. Prior to receiving her paperwork, the patient did leave the emergency department. Impression 1. Migraine headache ED Disposition - Plan for ED Patient: Instructions: ED, Migraine (Classical) Referrals: Barbara Lopez NP-C [Primary Care Provider] -
--- NOTE | 2020-01-07 22:13 | ED.RN ---
AWARE THAT STAFF UNABLE TO OBTAIN IV ACCESS AFTER 3 ATTEMPTS.
--- NOTE | 2020-01-07 22:37 | ED.RN ---
PT REFUSES IM BENADRYL AND IM COMPAZINE, STATES SHE HAS TRIED BENADRYL AT HOME WITHOUT RELIEF AND HAS AN ALLERGY TO COMPAZINE EVEN WHEN TAKEN WITH BENADRYL. MD MADE AWARE, STATES PT HAS CARE PLAN AND NARCOTICS WILL NOT BE ORDERED. PT MADE AWARE, STATES SHE WILL LEAVE THEN IF NO OTHER MEDS WILL BE ORDERED.
--- NOTE | 2020-01-07 22:42 | ED.RN ---
PREVIOUS NOTE WRITTEN BY Carmencita BOWLES RN
--- NOTE | 2020-01-07 22:46 | ED.RN ---
MULTIPLE ATTEMPTS MADE BY SEVERAL RNS TO OBTAIN IV ACCESS, ALL ATTEMPTS UNSUCCESSFUL.
== END 2020-01-07 22:47 | disposition home or self-care (01) ==
LOC: ED 21:58
PROVIDERS: Emergency Provider Emergency Medicine; PCP Nurse Practitioner Family
DX: G43.909 Migraine, unspecified, not intractable, without status migrainosus (principal); D68.51 Activated protein C resistance; Z86.711 Personal history of pulmonary embolism
CPT/HCPCS: 99285; A4216

== ENCOUNTER 2020-01-12 15:04 | Emergency (ER) | payer MEDICAID, SELFPAY ==
[2020-01-12 15:05] VITALS: BP 135/68; PULSE 130; RESP 18; TEMP 36.6; O2SAT 96; BMI 41.5
--- NOTE | 2020-01-12 15:20 | CM.ED ---
SOCIAL WORK Patient with active ED Care Plan. Case discussed with Dr. Wu and ED Care Plan reviewed. Sara Beasley, SCALE CLERK, CIRCULAR KNIFE CUTTER MACHINE
--- NOTE | 2020-01-12 15:48 | ED.DCSUM_ITS ---
History of Present Illness Chief Complaint: Headache Informant: Patient Onset: Days Context: Gradual Onset Timing: Continuous Current Severity: Moderate Maximum Severity: Moderate Narrative: The patient is a 29-year-old female that is well-known to the emergency department. The patient presents to the emergency department migraine headache. She states that she has had this for the past week. She is been evaluated here by myself, and at 3 other outside emergency departments. The patient has a longstanding history of migraine. She does have a care plan. She states this is her normal headache. She has been mildly nauseated. She states that she is maxed out on her triptans. She called her neurologist who referred her to the emergency department. Prior similar symptoms: Yes Recent Illness/Hospitalization: Yes Past Medical History - Allergies and Home Meds Allergies/Adverse Reactions: Allergies furosemide [From Lasix] Allergy (Verified 01/12/20 15:05) Hives Iodinated Contrast Media Allergy (Verified 01/12/20 15:05) Hives metformin Allergy (Verified 01/12/20 15:05) Unknown HIGH LACTIC ACID LEVELS ondansetron [From Zofran] Allergy (Verified 01/12/20 15:05) Hives propranolol Allergy (Verified 01/12/20 15:05) Angioedema sumatriptan [From Imitrex] Allergy (Verified 01/12/20 15:05) Other CHEST PAIN HEART ATTACK SYMPTOMS ketorolac [From Toradol] Adverse Reaction (Verified 01/12/20 15:05) Hives metoclopramide [From Reglan] Adverse Reaction (Verified 01/12/20 15:05) Other NEEDS BENADRYL WITH MED TO TOLERATTE prochlorperazine [From Compazine] Adverse Reaction (Verified 01/12/20 15:05) Other AGIATION, PT STATES NEEDS BENADRYL Primary Care Physician: Barbara Lopez NP-C [Primary Care Provider] - Prior records reviewed: Yes Past Medical History: - - Migraine headache, pulmonary embolus Surgical History: cholecystectomy, - - , tubal ligation, left ovary removed, loop recorder implanted, Mediport implanted Smoking Status: Never smoker - Family History Maternal Family History: Reports: Heart Disease, Stroke Paternal Family History: Reports: High Cholesterol, Stroke Review of Systems General: Denies: Chills, Fever, Sweats Eyes: Denies: Visual changes - bilaterally, Diplopia ENT: Denies: Rhinorrhea, Sore throat Cardiovascular: Denies: Chest pain, Palpitations Respiratory: Denies: Dyspnea, Cough, Dyspnea on exertion Gastrointestinal: Reports: Nausea. Denies: Abdominal pain, Vomiting, Diarrhea, Melena, Hematochezia Genitourinary: Denies: Dysuria, Hematuria, Frequency Musculoskeletal: Denies: Back pain, Extremity Pain Skin: Denies: Rash, Wounds Neurological: Reports: Headache. Denies: Weakness, Numbness Physical Exam Vital Signs/Narrative: Vital Signs Temp Pulse Resp BP Pulse Ox 01/12/20 15:05 97.8 F 130 H 18 135/68 H 96 Inital Vital Signs reviewed: Yes General: Well nourished, Well developed, No Acute Distress Head: Normocephalic, Atraumatic Eyes: Perrl, EOMI ENT: Moist mucous membranes, No rhinorrhea Neck: Supple, Nontender Cardiovascular: Regular rate, Regular rhythm, No murmurs Respiratory: No distress, CTA bilaterally, Chest nontender Abdomen: Soft, Nontender, Nondistended, Normal bowel sounds Back: Nontender, Normal Inspection Extremities: Nontender, No edema Skin: Normal color, No rash Neurological: Alert, Oriented x3, Cranial nerves II-XII grossly intact, Normal Strength, Normal Sensation Psychological: Normal affect, Normal Mood Diagnostic/Tx/Re-eval - Medical Decision Making The patient is a 29-year-old female who presents to the emergency department with her normal migraine. She has had multiple visits to emergency departments locally within the past week. I actually evaluated this patient on for the same. The patient does have a standing care plan. I did review the notes from her outside emergency department visits and they were concerning for drug- seeking behavior. The patient was discussed with neurology at that time who recommended discharging the patient home. I do not feel that this patient requires admission. I do not feel that she requires further imaging given to recent negative CTs. The patient was treated with according to her care plan and will be discharged. Impression 1. Migraine headache ED Disposition - Plan for ED Patient: Instructions: ED, Migraine (Classical) Referrals: Barbara Lopez, FREDO-C [Primary Care Provider] -
[2020-01-12] MEDS: proCHLORPERazine 10 MG/2 ML Vial IV (16:07)
[2020-01-12] MEDS: DiphenhydrAMINE 50 MG/ML Syringe IV (16:07)
[2020-01-12] MEDS: 0.9% Normal Saline 1,000 ML 999 ML IV (16:07)
== END 2020-01-12 16:58 | disposition home or self-care (01) ==
LOC: ED 15:40
PROVIDERS: Emergency Provider Emergency Medicine; PCP Nurse Practitioner Family
DX: G43.909 Migraine, unspecified, not intractable, without status migrainosus (principal)
CPT/HCPCS: 96361; 96374; 96375; 99285; J7030; A4216

== ENCOUNTER 2020-01-13 00:52 | Emergency (ER) | payer MEDICAID, SELFPAY ==
[2020-01-12 15:05] VITALS: BMI 41.5
[2020-01-13 00:52] VITALS: BP 142/90; PULSE 115; RESP 18; TEMP 36.9; O2SAT 96; BMI 44.9
--- NOTE | 2020-01-13 01:43 | CT_ITS ---
STUDY: CT ABDOMEN AND PELVIS WITH CONTRAST REASON FOR EXAM: Female, 29 years old. RLQ PAIN TONIGHT, HX GB, , LOOP RECORDER, TUBAL, LEFT OVARY REMOVED, MEDIPORT, TIA, CAD, HX PE, KS, PT HAS FACTOR V LEIDEN RADIATION DOSAGE (If Supplied By Facility): CTDIvol = ( 20.39 ) mGy, DLP = ( 1300.58 ) mGycm TECHNIQUE: Transaxial 3.75 mm images were obtained from the dome of the diaphragm to the symphysis pubis without oral contrast. IV 100mL Isovue-370 was administered. Sagittal and coronal images were reconstructed. There is obesity, the entirety of soft tissue is not imaged. Individualized dose optimization techniques were used for this CT. COMPARISON: CT abdomen pelvis 10/05/2019. 09/25/2019. FINDINGS: The visualized lung bases are unremarkable. The visualized portions of the heart are within normal limits. Resolution of previous small effusions. There is decreased attenuation of the enlarged liver consistent with steatosis. There are surgical clips in the gallbladder fossa consistent with a prior cholecystectomy. Normal spleen. Normal pancreas. Normal bilateral adrenal glands. Normal right kidney. Normal left kidney. Normal visualized stomach. Fluid-filled nondistended small bowel. Fluid-filled distended colon. The appendix is visualized and appears normal. Normal abdominal aorta. Normal inferior vena cava. Normal retroperitoneum. Normal urinary bladder. Heterogeneous enhancement of the uterus. This can be seen with underlying fibroids. Right ovarian low-attenuation with peripheral enhancement most consistent with an involuting cyst of 1.6 cm. Left ovary is not visualized. Normal abdominal wall. Normal osseous structures. CT/Abdomen/Pelvis W IV Cont ONLY IMPRESSION: There is no appendicitis, colitis, ascites, abscess, collection, perforation, small bowel or colonic obstruction. Fluid-filled bowel can be seen with diarrhea always a nonspecific finding. Small right involuting ovarian cyst. Stable hepatomegaly, hepatic steatosis, cholecystectomy, obesity. Electronically Signed: Kayla Torres MD at 4:33 EDT , Service support ,
[2020-01-13 02:12] LABS: Bacteria 0 SEEN /hpf (None Seen); Mucous, Urine 0 SEEN /hpf (<or=2+); Red Blood Cells-Urine 0 SEEN /hpf (0-5)
[2020-01-13 02:14] LABS: Color, Urine Yellow (Yellow); Glucose, Dipstick 1000 mg/dl (Normal); Ketone-Dipstick Negative (Negative); Leukocyte Esterase-Dipstick Negative /ul (Negative); Nitrite-Dipstick Negative (Negative); Occult Blood-Urine Negative /ul (Negative); Protein-Dipstick 15 mg/dl (Negative); Specific Gravity, Urine 1.025 (1.002-1.030); Urine Bilirubin Dipstick Negative (Negative); Urine Clarity Clear (Clear); Urine Urobilinogen Normal (Normal)
[2020-01-13 02:20] LABS: Internal QC Validated? YES +Cl - CLEAR BKGD; Pregnancy, Urine Negative Negative
[2020-01-13 02:30] LABS: Absolute Lymphocyte Count 2.03 X10^3/uL (0.83-4.51); Absolute Neutrophil Count 7.9 X10^3/uL (2.0-7.7); Basophil# 0.03 X10^3/uL; Basophil% 0.3 % (0-1); Eosinophil# 0.11 X10^3/uL; Hematocrit 36.9 % (37-47); Hemoglobin 11.8 g/dL (12.0-15.0); Lymphocyte # 2.03 X10^3/ul (4.0); Lymphocyte % 19.3 % (19-41); Mean Corpuscular Volume 81.3 fL (81-99); Mean Platelet Vol. 9.9 fl (6.2-12.0); Monocyte# 0.37 X10^3/uL; Monocyte% 3.5 % (0-10); NRBC Flagged by Analyzer 0 % (0-5); Neutrophil # 7.92 X10^3/uL (2.7-7.7); Neutrophil % 75.4 % (47-70); Platelet Count 461 K/mm3 (150-450); RBC Distribution Width CV 14.9 % (11.6-14.6); RBC Distribution Width SD 43.2 fl (35.1-43.9); Red Blood Count 4.54 M/mm3 (4.2-5.4); White Blood Count 10.5 K/mm3 (4.4-11.0)
[2020-01-13 02:43] LABS: Squamous Epithelial Cells - UA 10-25 SEEN /hpf (5-10); White Blood Cells 0-5 SEEN /hpf (0-5)
[2020-01-13 02:44] LABS: Calcium Oxalate Crystals Ur RARE /hpf (<or=2+); Yeast-Urine 1+ /hpf (None Seen)
[2020-01-13] MEDS: Morphine 4 MG/ML Syringe IV (03:01)
[2020-01-13] MEDS: Metoclopramide 10 MG/2 ML Vial IV (03:01)
[2020-01-13] MEDS: DiphenhydrAMINE 50 MG/ML Syringe IV (03:01)
[2020-01-13] MEDS: 0.9% Normal Saline 1,000 ML 1000 ML IV (03:01)
[2020-01-13 03:12] VITALS: BP 156/94; PULSE 118; RESP 18; O2SAT 96
[2020-01-13 03:46] LABS: ALB/GLOB Ratio 0.7 RATIO (0.9-2.4); AST(SGOT) 48 U/L (15-37); Alanine Aminotransfer ALT/SGPT 29 U/L (13-56); Albumin, Serum 3.1 g/dL (3.2-5.0); Alkaline Phosphatase 94 U/L (45-117); Anion Gap 11 (5-15); BUN 11 mg/dL (7-18); BUN/Creat Ratio 15.8 RATIO (10-20); Calcium,Total 8.7 mg/dL (8.5-10.1); Chloride 105 mmol/L (98-107); EST Glomerular Filtration Rate 106 mL/min (>60); Est Glom Filt Rate - Afr Amer 129 mL/min (>60); Globulin 4.5 g/dL (2.2-4.2); Glucose 259 mg/dL (74-106); Lipase 165 U/L (73-393); Protein, Total 7.6 g/dL (6.4-8.2); Sodium Level 133 mmol/L (136-145)
[2020-01-13] MEDS: proMETHazine 25 MG/ML Syringe 12.5 MG IV (04:30)
--- NOTE | 2020-01-13 05:29 | ED.DCSUM_ITS ---
History of Present Illness Chief Complaint: Abd Pain Informant: Patient - Abdominal Pain/Flank Pain Onset: Today Context: Gradual Onset Timing: Continuous Quality: Sharp, Stabbing Location: RLQ Current Severity: Severe Maximum Severity: Severe - Nausea/Vomiting/Emesis GI Symptom: Nausea, Vomiting Onset: Today Quality: Nonbilious. Negative for: Blood streaks, Coffee ground, Hematemesis Narrative: Patient is a 29-year-old female well-known to the emergency room with history of migraines presenting with right lower quadrant abdominal pain. Patient states the pain started couple hours ago around 7 PM. She is a came out of nowhere. She says initially the middle of her abdomen and then radiated down her right lower quadrant. She then developed nausea and vomiting about 1 hour prior to arrival. She states she had normal bowel movements. She is she does have some radiation of the pain into her back. States he is never had pain like this before. She does have a history of ovarian cyst but states it does not feel similar. States the pain is up to high. Patient denies any associated chest pain, shortness of breath or difficulty breathing. She denies any fever or chills. She denies any urinary symptoms. Patient states she is not concerned for she has had a tubal ligation. Past Medical History - Allergies and Home Meds Allergies/Adverse Reactions: Allergies furosemide [From Lasix] Allergy (Verified 01/12/20 15:05) Hives Iodinated Contrast Media Allergy (Verified 01/12/20 15:05) Hives metformin Allergy (Verified 01/12/20 15:05) Unknown HIGH LACTIC ACID LEVELS ondansetron [From Zofran] Allergy (Verified 01/12/20 15:05) Hives propranolol Allergy (Verified 01/12/20 15:05) Angioedema sumatriptan [From Imitrex] Allergy (Verified 01/12/20 15:05) Other CHEST PAIN HEART ATTACK SYMPTOMS ketorolac [From Toradol] Adverse Reaction (Verified 01/12/20 15:05) Hives metoclopramide [From Reglan] Adverse Reaction (Verified 01/12/20 15:05) Other NEEDS BENADRYL WITH MED TO TOLERATTE prochlorperazine [From Compazine] Adverse Reaction (Verified 01/12/20 15:05) Other AGIATION, PT STATES NEEDS BENADRYL Primary Care Physician: Barbara Lopez NP-C [Primary Care Provider] - Past Medical History: - - Anxiety, depression, PTSD, migraine headaches Surgical History: cholecystectomy, - - , tubal ligation, left ovary removed, loop recorder implanted, Mediport implanted Smoking Status: Never smoker - Family History Maternal Family History: Reports: Heart Disease, Stroke Paternal Family History: Reports: High Cholesterol, Stroke Review of Systems General: Denies: Chills, Fever, Sweats Eyes: Denies: Visual changes - bilaterally, Diplopia ENT: Denies: Rhinorrhea, Sore throat Cardiovascular: Denies: Chest pain, Palpitations Respiratory: Denies: Dyspnea, Cough, Dyspnea on exertion Gastrointestinal: Reports: Abdominal pain, Nausea, Vomiting. Denies: Diarrhea, Melena, Hematochezia Genitourinary: Denies: Dysuria, Hematuria, Frequency Musculoskeletal: Denies: Back pain, Extremity Pain Skin: Denies: Rash, Wounds Neurological: Denies: Headache, Weakness, Numbness Physical Exam Vital Signs/Narrative: Vital Signs Pulse Resp BP Pulse Ox 01/13/20 03:12 118 H 18 156/94 H 96 Inital Vital Signs reviewed: Yes General: Well nourished, Well developed, Obese, No Acute Distress Head: Normocephalic, Atraumatic Eyes: Perrl, EOMI ENT: Moist mucous membranes, No rhinorrhea Neck: Supple, Nontender Cardiovascular: Regular rate, Regular rhythm, No murmurs Respiratory: No distress, CTA bilaterally, Chest nontender Abdomen: Soft, Nondistended, Normal bowel sounds, No masses, Tender - Right lower quadrant-McBurney's point, Hypoactive bowel sounds Back: Nontender, Normal Inspection Extremities: Nontender, No edema Skin: Normal color, No rash Neurological: Alert, Oriented x3, Cranial nerves II-XII grossly intact, Normal Strength, Normal Sensation Psychological: Normal affect, Normal Mood Diagnostic/Tx/Re-eval Clinical Impression(s) from Imaging Studies Abdomen/Pelvis CT 01/13/20 01:43 IMPRESSION: There is no appendicitis, colitis, ascites, abscess, collection, perforation, small bowel or colonic obstruction. Fluid-filled bowel can be seen with diarrhea always a nonspecific finding. Small right involuting ovarian cyst. Stable hepatomegaly, hepatic steatosis, cholecystectomy, obesity. Electronically Signed: Kayla Torres MD at 4:33 EDT , Service support , Laboratory Data 01/13/20 01/13/20 01/13/20 02:00 02:00 02:20 WBC 10.5 RBC 4.54 Hgb 11.8 L Hct 36.9 L MCV 81.3 MCH 26.0 L MCHC 32.0 RDW Std Deviation 43.2 RDW Coeff of Millie 14.9 H Plt Count 461 H MPV 9.9 Immature Gran % (Auto) 0.500 Neut % (Auto) 75.4 H Lymph % (Auto) 19.3 Maury % (Auto) 3.5 Eos % (Auto) 1.0 Baso % (Auto) 0.3 Absolute Neuts (auto) 7.9 H Absolute Lymphs (auto) 2.03 Nucleated RBC % 0 Sodium Potassium Chloride Carbon Dioxide Anion Gap BUN Creatinine Estim Creat Clear Calc Est GFR (MDRD) Af Amer Est GFR (MDRD) Non-Af BUN/Creatinine Ratio Glucose Calcium Total Bilirubin AST ALT Alkaline Phosphatase Total Protein Albumin Globulin Albumin/Globulin Ratio Lipase Urine Color Yellow Urine Clarity Clear Urine pH 5.0 Ur Specific [place] 1.025 Urine Protein 15 H Urine Glucose (UA) 1000 H Urine Ketones Negative Urine Occult Blood Negative Urine Nitrite Negative Urine Bilirubin Negative Urine Urobilinogen Normal Ur Leukocyte Esterase Negative Urine RBC 0 SEEN Urine WBC 0-5 SEEN Ur Squamous Epith Cells 10-25 SEEN Calcium Oxalate Crystal RARE Urine Bacteria 0 SEEN Urine Mucus 0 SEEN Urine Yeast 1+ Urine Test Negative 01/13/20 02:20 WBC RBC Hgb Hct MCV MCH MCHC RDW Std Deviation RDW Coeff of Millie Plt Count MPV Immature Gran % (Auto) Neut % (Auto) Lymph % (Auto) Maury % (Auto) Eos % (Auto) Baso % (Auto) Absolute Neuts (auto) Absolute Lymphs (auto) Nucleated RBC % Sodium 133 L Potassium 5.0 Chloride 105 Carbon Dioxide 17.0 L Anion Gap 11 BUN 11 Creatinine 0.70 Estim Creat Clear Calc 91.10 Est GFR (MDRD) Af Amer 129 Est GFR (MDRD) Non-Af 106 BUN/Creatinine Ratio 15.8 Glucose 259 H Calcium 8.7 Total Bilirubin 0.40 AST 48 H ALT 29 Alkaline Phosphatase 94 Total Protein 7.6 Albumin 3.1 L Globulin 4.5 H Albumin/Globulin Ratio 0.7 L Lipase 165 Urine Color Urine Clarity Urine pH Ur Specific [place] Urine Protein Urine Glucose (UA) Urine Ketones Urine Occult Blood Urine Nitrite Urine Bilirubin Urine Urobilinogen Ur Leukocyte Esterase Urine RBC Urine WBC Ur Squamous Epith Cells Calcium Oxalate Crystal Urine Bacteria Urine Mucus Urine Yeast Urine Test - Medical Decision Making Patient is a 29-year-old female evaluated for sudden onset of abdominal pain. Is localized to right lower quadrant. She does have pain at McBurney's point. Presentation is concerning for acute appendicitis. Patient still has her appendix. Patient is known to the ER and does have history of drug-seeking behavior however given the differential she is given 1 dose of morphine in the emergency room. In addition patient is given nausea medications and premedications with Benadryl and steroids in anticipation of IV contrast. Patient CBC is grossly normal. She does have a mildly elevated platelet counts but this could be associated dehydration. Her BMP is remarkable for hyperglycemia of 259. Patient has normal liver function and bilirubin. Her urinalysis also is remarkable for elevated urine glucose. CT of the abdomen and pelvis does not show any acute appendicitis or other acute surgical process. Patient does have nonspecific fluid-filled bowel as well as a small right involuting ovarian cyst. I think these are incidental findings I do not think there is any the cause of her pain. Patient is counseled on her lab work that is concerning for likely diabetes. She does not know of a history of diabetes. She states she will follow-up with her primary care doctor for further evaluation of this. Patient is given IV fluids in the emergency room. She is discharged home with a prescription for Phenergan and Bentyl for symptom control. She is given a dose of Bentyl for continued abdominal pain prior to discharge. Patient is given return precautions. She is discharged home in improved and stable condition. ED Disposition - Plan for ED Patient: Disposition: Home or Assisted Living Diagnosis: Abdominal pain of unknown etiology, Nausea and vomiting, Hyperglycemia Instructions: ED Abdominal Pain Unkn Cause Fem, ED Hyperglycemia New Susp Diabetes Prescriptions: Dicyclomine HCl [Bentyl] 20 mg PO TIDAC #20 cap Prescription Printed proMETHazine tablet [Phenergan] 25 mg PO Q6H PRN PRN #10 tab PRN Reason: Nausea Prescription Printed Referrals: Barbara Lopez NP-C [Primary Care Provider] - Additional Instructions: Blood sugar is elevated today. I am concerned that you might have undiagnosed diabetes mellitus. Please follow-up with your primary care doctor in the next few days for further evaluation of this. You do not have any acute surgical abnormalities on your CT or blood work today. You are safe to go home.
[2020-01-13] MEDS: DiphenhydrAMINE 50 MG/ML Syringe 25 MG IV (05:39)
[2020-01-13] MEDS: Dicyclomine 10 MG Capsule 20 MG PO (05:40)
[2020-01-13 05:44] VITALS: BP 138/93; PULSE 99; RESP 16; O2SAT 96
== END 2020-01-13 06:08 | disposition home or self-care (01) ==
PROVIDERS: Emergency Provider Emergency Medicine; PCP Nurse Practitioner Family
DX: R10.31 Right lower quadrant pain (principal); R11.2 Nausea with vomiting, unspecified; R73.9 Hyperglycemia, unspecified; E66.9 Obesity, unspecified
CPT/HCPCS: 74177; 80053; 81001; 81025; 83690; 85025; 99285; J7030; Q9967; A4216

== ENCOUNTER 2020-01-24 12:38 | Emergency (ER) | payer MEDICAID, SELFPAY ==
[2020-01-24 12:40] VITALS: BP 150/87; PULSE 108; RESP 17; TEMP 36.3; O2SAT 100; BMI 44.4
--- NOTE | 2020-01-24 12:51 | ED.DCSUM_ITS ---
History of Present Illness Chief Complaint: Anxiety Detail of Chief Complaint: Divorce and custody or 2 children and mother's past week Informant: Patient Onset: Days Context: Sudden Onset Timing: Continuous, Waxes and wanes Quality: Anxiety Location: Not applicable Current Severity: Moderate Maximum Severity: Severe Worsened by: Stressors Relieved by: Nothing Associated Symptoms: No suicidal homicidal ideation Narrative: Patient is a 29-year-old woman who is well-known to the emergency staff. She does have a care plan. Patient does have history of drug-seeking behavior. She states she contacted the ornamental ironworker helper chief contract officer and was instructed to come to the emergency room for an emergent psychiatric eval. The place and social studies department chair for the crisis line was paged to discuss her case. Patient has no constitutional, HEENT, cardiac, respiratory, GI or symptoms. As previously documented she denies homicidal suicidal ideation. Prior similar symptoms: No Recent Illness/Hospitalization: No - Past Medical History (1) Anxiety Status: Chronic (2) Factor V Leiden Status: Chronic (3) MDD (major depressive disorder) Status: Chronic (4) Migraines Status: Chronic (5) PTSD (post-traumatic stress disorder) Status: Chronic (6) Pulmonary emboli Status: Chronic (7) TIA (transient ischemic attack) Status: Chronic Past Medical History - Allergies and Home Meds Allergies/Adverse Reactions: Allergies furosemide [From Lasix] Allergy (Verified 01/24/20 12:40) Hives Iodinated Contrast Media Allergy (Verified 01/24/20 12:40) Hives metformin Allergy (Verified 01/24/20 12:40) Unknown HIGH LACTIC ACID LEVELS ondansetron [From Zofran] Allergy (Verified 01/24/20 12:40) Hives propranolol Allergy (Verified 01/24/20 12:40) Angioedema sumatriptan [From Imitrex] Allergy (Verified 01/24/20 12:40) Other CHEST PAIN HEART ATTACK SYMPTOMS ketorolac [From Toradol] Adverse Reaction (Verified 01/24/20 12:40) Hives metoclopramide [From Reglan] Adverse Reaction (Verified 01/24/20 12:40) Other NEEDS BENADRYL WITH MED TO TOLERATTE prochlorperazine [From Compazine] Adverse Reaction (Verified 01/24/20 12:40) Other AGIATION, PT STATES NEEDS BENADRYL Primary Care Physician: Barbara Lopez NP-C [Primary Care Provider] - Prior records reviewed: Yes Surgical History: cholecystectomy, - - , tubal ligation, left ovary removed, loop recorder implanted, Mediport implanted Lives: With Family Smoking Status: Never smoker Alcohol: None Drugs: - - Positive per review of prior records - Family History Maternal Family History: Reports: Heart Disease, Stroke Paternal Family History: Reports: High Cholesterol, Stroke Review of Systems General: Denies: Chills, Fever, Malaise Eyes: Denies: Visual changes - bilaterally, Blurred Vision - bilaterally ENT: Denies: Rhinorrhea, Sore throat Cardiovascular: Denies: Chest pain, Palpitations Respiratory: Denies: Dyspnea, Cough Gastrointestinal: Denies: Nausea, Vomiting Neurological: Denies: Headache, Weakness, Parasthesia Psych: Reports: Anxiety. Denies: Depression, Suicidal thoughts, Suicidal ideations Physical Exam Vital Signs/Narrative: Vital Signs Temp Pulse Resp BP Pulse Ox 01/24/20 12:40 97.4 F L 108 H 17 150/87 H 100 Inital Vital Signs reviewed: Yes General: Well nourished, Well developed, Obese Head: Normocephalic, Atraumatic Eyes: Perrl, EOMI. Negative for: Pale conjunctiva ENT: Moist mucous membranes, No rhinorrhea Neck: Supple, Nontender, No lymphadenopathy, No JVD Cardiovascular: Regular rate, Regular rhythm, No murmurs, Normal S1, Normal S2 Respiratory: No distress, CTA bilaterally Skin: Normal color, No rash Neurological: Alert, Oriented x3, Cranial nerves II-XII grossly intact, Normal Strength, Normal Sensation Psychological: Depressed, Tearful Diagnostic/Tx/Re-eval - Medical Decision Making The licenses were for crisis center was paged to discuss case. Will inform the person if they are unaware that she does have a care plan and there is a history of drug-seeking behavior. Her graph spoke with Evon at 1318 from the counseling center. She states she has not spoken to her noted she recommend she come to the emergency department. She contacted Zeyad who is on-call the past 24 hours and he has not spoken to her and he did not recommend she come to the emergency department. I was informed the last entry on [facility] was November of this year. In light of this history and the fact that she has a care plan patient was discharged to home. ED Disposition - Plan for ED Patient: Disposition: Home or Assisted Living Diagnosis: Deceptive behavior, Malingering Instructions: ED Personality Disorder Referrals: Barbara Lopez NP-C [Primary Care Provider] - As Needed
== END 2020-01-24 13:28 | disposition home or self-care (01) ==
PROVIDERS: Emergency Provider Emergency Medicine; PCP Nurse Practitioner Family
DX: F41.9 Anxiety disorder, unspecified (principal); R46.89 Other symptoms and signs involving appearance and behavior; Z76.5 Malingerer [conscious simulation]; D68.51 Activated protein C resistance; F32.9 Major depressive disorder, single episode, unspecified; F43.10 Post-traumatic stress disorder, unspecified; E66.9 Obesity, unspecified; Z86.711 Personal history of pulmonary embolism; Z86.73 Personal history of transient ischemic attack (TIA), and cerebral infarction without residual deficits; Z79.02 Long term (current) use of antithrombotics/antiplatelets; Z79.899 Other long term (current) drug therapy
CPT/HCPCS: 99282

== ENCOUNTER 2020-02-25 06:16 | Emergency (ER) | payer MEDICAID, SELFPAY ==
[2020-02-25 06:17] VITALS: BP 101/70; PULSE 99; RESP 15; TEMP 36.4; O2SAT 99; BMI 45.5
--- NOTE | 2020-02-25 06:28 | CT_ITS ---
STUDY: CTA CHEST REASON FOR EXAM: Female, 29 years old. PT STATED CHEST PAIN TODAY, MULTIPLE HX OF THE SAME, HX OF PE, LOOP RECORDER RADIATION DOSAGE (If Supplied By Facility): CTDIvol = ( 12.67 ) mGy, DLP = ( 529.07 ) mGycm TECHNIQUE: The examination was performed with the intravenous administration of 100ml isovue 370. Post-processing of the angiographic images was performed, with multiplanar reformation and 3D reconstruction. Individualized dose optimization techniques were used for this CT. COMPARISON: Comparison is made with prior examination dated 11/14/2019. FINDINGS: Stable small bilateral benign appearing axillary lymph nodes. Normal enhancement of the main pulmonary artery and right and left pulmonary arteries. Normal enhancement of the bilateral peripheral pulmonary arteries. There is no demonstrated pulmonary embolism. Normal thoracic aorta and visualized great vessels. There is no demonstrated aortic dissection. Normal heart and pericardium. Normal mediastinum. Normal hilar regions. Normal visualized trachea and bronchi. The lungs are well expanded. Normal pulmonary parenchyma. Normal pleura. Normal chest wall structures. Normal osseous structures. Normal visualized upper abdomen. CT/CTA Chest W/WO Contrast IMPRESSION: Normal CTA chest examination, without a demonstrated pulmonary embolism or arterial dissection. Electronically Signed: Abdulaziz Chicas, at 9:48 EDT , Service support ,
--- NOTE | 2020-02-25 06:29 | EKG12_ITS ---
Test Reason : CP Blood Pressure : / mmHG Vent. Rate : 099 BPM Atrial Rate : 099 BPM P-R Int : 184 ms QRS Dur : 086 ms QT Int : 368 ms P-R-T Axes : 036 030 008 degrees QTc Int : 472 ms Normal sinus rhythm Normal ECG Confirmed by LIZ ALBARRAN ([id number]), technical editor CAMI EMERY ([id number]) on 02/29/2020 2:10:59 PM Referred By: CG Confirmed By:LIZ ALBARRAN
--- NOTE | 2020-02-25 06:29 | RAD_ITS ---
STUDY: X-RAY CHEST REASON FOR EXAM: Female, 29 years old. CP, ACUTE ON-SET TECHNIQUE: Frontal view COMPARISON: 01/23/2020 FINDINGS: The lungs are clear and expanded. There is no demonstrated pleural abnormality. Normal size heart. Normal mediastinum and teja. Normal visualized pulmonary arteries. Normal visualized aortic arch and descending thoracic aorta. Normal visualized thoracic spine. Normal visualized ribs, clavicles, and shoulders. There is no demonstrated abnormality of the visualized soft tissue structures of the upper abdomen. RAD/Chest 1 View (Portable) IMPRESSION: Normal x-ray examination of the chest. Electronically Signed: Shiv Gasca MD at 7:35 EDT , Service support ,
--- NOTE | 2020-02-25 06:32 | ED.VIS.CHEST ---
History of Present Illness Informant: Patient Onset: Today Activity at onset: Sleep Timing: Continuous Quality: Heaviness, Pressure Location: Substernal, Left Chest Worsened By: Nothing Relieved By: Nothing Associated Symptoms: Nausea, Dyspnea Narrative: Patient is a 29-year-old female well-known to the emergency room with complex medical history including factor V Leiden, multiple PEs, chronic chest pain and anxiety/depression presenting with chest pain. Patient states about 2 hours prior to arrival she woke up from sleep and had pressure in the center of her chest rating to her left chest underneath her breast. States she has associated shortness of breath. She has associated nausea. States this feels like her prior PEs. She is currently on Xarelto but states she is only been on it for a week and before that was off it for a week. States she was off it for a week because she had a head injury that was causing her to throw up and not tolerate p.o. Patient is worried she might have another PE. She denies any swelling of her legs. She denies any other complaints at this time. Prior Similar Symptoms: With Prior PE <Leslie Hunter - Last Filed: 02/25/20 07:11> <Emir Duval - Last Filed: 02/25/20 09:58> Chief Complaint: Chest Pain Past Medical History Past Medical History: - - Factor V Leiden, history of PEs, PTSD, anxiety/depression, chronic chest pain Surgical History: cholecystectomy, - - , tubal ligation, left ovary removed, loop recorder implanted, Mediport implanted Smoking Status: Never smoker - Family History Maternal Family History: Reports: Heart Disease, Stroke Paternal Family History: Reports: High Cholesterol, Stroke <Leslie Hunter - Last Filed: 02/25/20 07:11> <Emir Duval - Last Filed: 02/25/20 09:58> - Allergies and Home Meds Allergies/Adverse Reactions: Allergies furosemide [From Lasix] Allergy (Verified 01/24/20 12:40) Hives Iodinated Contrast Media Allergy (Verified 01/24/20 12:40) Hives ondansetron [From Zofran] Allergy (Verified 01/24/20 12:40) Hives propranolol Allergy (Verified 01/24/20 12:40) Angioedema sumatriptan [From Imitrex] Allergy (Verified 01/24/20 12:40) Other CHEST PAIN HEART ATTACK SYMPTOMS ketorolac [From Toradol] Adverse Reaction (Verified 01/24/20 12:40) Hives prochlorperazine [From Compazine] Adverse Reaction (Verified 01/24/20 12:40) Other AGIATION, PT STATES NEEDS BENADRYL Primary Care Physician: Anuj Miles MD [Primary Care Provider] - Review of Systems General: Denies: Chills, Fever, Sweats Eyes: Denies: Visual changes - bilaterally, Diplopia ENT: Denies: Rhinorrhea, Sore throat Cardiovascular: Reports: Chest pain. Denies: Palpitations Respiratory: Reports: Dyspnea. Denies: Cough, Dyspnea on exertion Gastrointestinal: Reports: Nausea. Denies: Abdominal pain, Vomiting, Diarrhea, Melena, Hematochezia Genitourinary: Denies: Dysuria, Hematuria, Frequency Musculoskeletal: Denies: Back pain, Extremity Pain Skin: Denies: Rash, Wounds Neurological: Denies: Headache, Weakness, Numbness <Leslie Hunter - Last Filed: 02/25/20 07:11> Physical Exam Vital Signs/Narrative: Vital Signs Temp Pulse Resp BP Pulse Ox 02/25/20 06:17 97.5 F L 99 15 101/70 99 Inital Vital Signs reviewed: Yes General: Well nourished, Well developed, No Acute Distress Head: Normocephalic, Atraumatic Eyes: Perrl, EOMI ENT: Moist mucous membranes, No rhinorrhea Neck: Supple, Nontender, No JVD Cardiovascular: Regular rate, Regular rhythm, No murmurs Respiratory: No distress, CTA bilaterally, Chest nontender. Negative for: Diminished, Decreased Air Movement Abdomen: Soft, Nontender, Nondistended, Normal bowel sounds Back: Nontender, Normal Inspection Extremities: Nontender, No edema Skin: Normal color, No rash Neurological: Alert, Oriented x3, Cranial nerves II-XII grossly intact, Normal Strength, Normal Sensation Psychological: Normal affect, Normal Mood <Leslie Hunter - Last Filed: 02/25/20 07:11> Vital Signs/Narrative: Vital Signs Temp Pulse Resp BP Pulse Ox 02/25/20 07:57 94 16 135/93 H 98 02/25/20 06:17 97.5 F L 99 15 101/70 99 <SiminEmir - Last Filed: 02/25/20 09:58> Diagnostic/Tx/Re-eval - Rhythm Strip Rhythm Strip: Sinus Rhythm Rate: 99 Ectopy: None - EKG Initial EKG Interpretation: Sinus Rhythm, - - Sinus rhythm at a rate of 99 Normal axis Normal intervals Normal ST segments Interpreted by emergency medicine physician - Medical Decision Making Patient is evaluated for episode of chest pain. She has chronic chest pain. Does have history of PEs however and before this week was off her Xarelto for a week so I cannot rule out a PE as a cause of her pain today. We will do cardiac work-up as well as a CT of the chest. Patient will be premedicated with Benadryl and Solu-Medrol she has a history of hives with contrast. Anticipate if work-up is negative she will be discharged home. Patient is requesting Phenergan for nausea control. She is given this. I did have to place an ultrasound-guided IV as patient has poor peripheral access and recently had her Mediport removed. Patient tolerated this well. <Leslie Hunter - Last Filed: 02/25/20 07:11> Impressions Chest CTA 02/25/20 06:28 IMPRESSION: Normal CTA chest examination, without a demonstrated pulmonary embolism or arterial dissection. Electronically Signed: Abdulaziz Chicas, at 9:48 EDT , Service support , Chest X-Ray 02/25/20 06:29 IMPRESSION: Normal x-ray examination of the chest. Electronically Signed: Shiv Gasca MD at 7:35 EDT , Service support , 02/25/20 06:28 CTA Chest W/WO Contrast [CT] Stat 02/25/20 06:29 Chest 1 View (Portable) [RAD] Stat Laboratory Results 02/25/20 02/25/20 02/25/20 06:50 06:50 06:50 WBC 4.0 L RBC 4.26 Hgb 11.1 L Hct 34.2 L MCV 80.3 L MCH 26.1 L MCHC 32.5 RDW Std Deviation 44.0 H RDW Coeff of Millie 15.1 H Plt Count 285 MPV 8.7 Immature Gran % (Auto) 0.000 Neut % (Auto) 42.9 L Lymph % (Auto) 46.0 H [place] % (Auto) 7.6 Eos % (Auto) 3.0 Baso % (Auto) 0.5 Absolute Neuts (auto) 1.7 L Absolute Lymphs (auto) 1.82 Nucleated RBC % 0 PT 14.7 INR 1.2 APTT 29.3 Sodium 138 Potassium 3.3 L Chloride 106 Carbon Dioxide 23.0 Anion Gap 9 BUN 6 L Creatinine 0.69 Estim Creat Clear Calc 92.42 Est GFR (MDRD) Af Amer 130 Est GFR (MDRD) Non-Af 108 BUN/Creatinine Ratio 8.7 L Glucose 292 H Calcium 8.5 Troponin I < 0.015 - Medical Decision Making I took checkout on this patient. She remained clinically and hemodynamically stable throughout her visit. She was apprehensive about getting the CT because lying down increases the discomfort. This has been an issue multiple times in the past, when I have seen her for similar symptoms. In the past, she has demanded medications prior to going to the CT scanner, hence implementation of a care plan for this patient. I had a discussion with her prior to her CT at her request. She was debating about whether to leave prior to the scan, or to get it. In helping her to make this decision, we discussed her history prior to coming here. Namely, her symptoms. She had a head injury, therefore she discontinued her Xarelto for 1 week, and now she has been back on it for 1 week. This chest discomfort started this morning. She states it feels like a pulmonary embolus, given her prior history of them. She states she has had 6 of them in the past. It is unclear if these were all separate or if they were 6 different scans, some of which could have imaged the same clot. Regardless, if she has an acute pulmonary embolus now while treated with Xarelto for 1 week, she may be a candidate for an IVC filter, so I recommended that she get the scan, and if she decided against it, I would be happy to discharge her AGAINST MEDICAL ADVICE, and we discussed the risks of doing that. She then asked for Norflex prior to getting the scan because she thinks it helped once with her chest discomfort in the past. I advised her that I would give her a dose if it fit her care plan, it appears to, so she was given that and went to the scan. It is negative, and as a result I feel she is safe to be discharged home to continue her Xarelto and follow-up with her doctor. Of note, the patient asked to file a complaint against me with the modeling agency manager. This is related to the fact that I told the patient that she could simply lie down for the scan and that it would only take a couple minutes of doing so, and since she is dealing with increased discomfort by lying down and not a risk of or disability, I do not think that she requires medication in order to be scanned, although I gave it to her anyway. <Emir Duval - Last Filed: 02/25/20 09:58> ED Disposition <Leslie Hunter - Last Filed: 02/25/20 07:11> <Emir Duval - Last Filed: 02/25/20 09:58> - Plan for ED Patient: Disposition: Home or Assisted Living Diagnosis: Chest pain Instructions: ED Chest Pain Atypical Unkn Cause Referrals: Anuj Miles MD [Primary Care Provider] -
[2020-02-25 06:57] LABS: Absolute Lymphocyte Count 1.82 X10^3/uL (0.83-4.51); Absolute Neutrophil Count 1.7 X10^3/uL (2.0-7.7); Basophil# 0.02 X10^3/uL; Basophil% 0.5 % (0-1); Eosinophil# 0.12 X10^3/uL; Hematocrit 34.2 % (37-47); Hemoglobin 11.1 g/dL (12.0-15.0); Lymphocyte # 1.82 X10^3/ul (4.0); Mean Corp Hgb Conc 32.5 g/dL (32-36); Mean Corpuscular Hgb 26.1 pg (27.0-32.0); Mean Corpuscular Volume 80.3 fL (81-99); Mean Platelet Vol. 8.7 fl (6.2-12.0); Monocyte% 7.6 % (0-10); NRBC Flagged by Analyzer 0 % (0-5); Neutrophil % 42.9 % (47-70); Platelet Count 285 K/mm3 (150-450); RBC Distribution Width CV 15.1 % (11.6-14.6); Red Blood Count 4.26 M/mm3 (4.2-5.4)
[2020-02-25 07:09] LABS: International Normalized Ratio 1.2; Partial Thromboplast Time 29.3 Seconds (24.1-36.2); Prothrombin Time (Protime)PT. 14.7 SECONDS (11.7-14.9)
[2020-02-25 07:15] LABS: Anion Gap 9 (5-15); BUN 6 mg/dL (7-18); BUN/Creat Ratio 8.7 RATIO (10-20); Calcium,Total 8.5 mg/dL (8.5-10.1); Chloride 106 mmol/L (98-107); Creatinine, Serum 0.69 mg/dL (0.55-1.02); EST Glomerular Filtration Rate 108 mL/min (>60); Est Glom Filt Rate - Afr Amer 130 mL/min (>60); Estimated Creatinine Clearance 92.42 ml/min; Glucose 292 mg/dL (74-106); Potassium 3.3 mmol/L (3.5-5.1); Sodium Level 138 mmol/L (136-145)
[2020-02-25] MEDS: DiphenhydrAMINE 50 MG/ML Syringe IV (07:20)
[2020-02-25] MEDS: proMETHazine 25 MG/ML Syringe 12.5 MG IV (07:20)
[2020-02-25 07:57] VITALS: BP 135/93; PULSE 94; RESP 16; O2SAT 98
[2020-02-25] MEDS: Orphenadrine 60 MG/2 ML Ampul IM (08:52)
== END 2020-02-25 10:12 | disposition home or self-care (01) ==
PROVIDERS: Emergency Provider Emergency Medicine; PCP Family Medicine
DX: R07.9 Chest pain, unspecified (principal); F32.9 Major depressive disorder, single episode, unspecified; D68.51 Activated protein C resistance; F41.9 Anxiety disorder, unspecified; Z86.711 Personal history of pulmonary embolism; Z79.02 Long term (current) use of antithrombotics/antiplatelets; Z79.899 Other long term (current) drug therapy
CPT/HCPCS: 71045; 71275; 80048; 84484; 85025; 85610; 85730; 93005; 99285; Q9967; A4216

== ENCOUNTER 2020-03-05 07:43 | Emergency (ER) | payer MEDICAID, SELFPAY ==
[2020-03-05 07:47] VITALS: BP 112/58; PULSE 87; RESP 22; TEMP 37.1; O2SAT 99; BMI 45.0
[2020-03-05 07:51] VITALS: PULSE 87; RESP 20
--- NOTE | 2020-03-05 08:05 | EKG12_ITS ---
Test Reason : PALP Blood Pressure : / mmHG Vent. Rate : 087 BPM Atrial Rate : 087 BPM P-R Int : 168 ms QRS Dur : 092 ms QT Int : 382 ms P-R-T Axes : 028 011 006 degrees QTc Int : 459 ms Normal sinus rhythm Possible Left atrial enlargement Borderline ECG Confirmed by CLEO HOLLIS, ROSE ([id number]), purchase request editor ADRIANNA DOZIER ([id number]) on 03/08/2020 9:28:24 AM Referred By: LUIS Confirmed By:ROSE GALLO MD
--- NOTE | 2020-03-05 08:09 | ED.VIS.GEN ---
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 Symptoms have been present since upon waking this morning. She states that she feels her heart racing at times. It is worse with laying flat. She thought this could be her anxiety should she took a Vistaril which did not change her symptoms. She notes that she has been under increased stress due to moving and custody issues. No chest pain. She does note some nausea that began last night. The patient states that her symptoms are ongoing during our conversation and physical exam. Patient has a history of same. Care plan was reviewed. Past Medical History - Allergies and Home Meds Allergies/Adverse Reactions: Allergies furosemide [From Lasix] Allergy (Verified 03/05/20 07:47) Hives Iodinated Contrast Media Allergy (Verified 03/05/20 07:47) Hives ondansetron [From Zofran] Allergy (Verified 03/05/20 07:47) Hives propranolol Allergy (Verified 03/05/20 07:47) Angioedema sumatriptan [From Imitrex] Allergy (Verified 03/05/20 07:47) Other CHEST PAIN HEART ATTACK SYMPTOMS ketorolac [From Toradol] Adverse Reaction (Verified 03/05/20 07:47) Hives prochlorperazine [From Compazine] Adverse Reaction (Verified 03/05/20 07:47) Other AGIATION, PT STATES NEEDS BENADRYL Primary Care Physician: Anuj Miles MD [Primary Care Provider] - As Needed Surgical History: cholecystectomy, - - , tubal ligation, left ovary removed, loop recorder implanted, Mediport implanted Smoking Status: Never smoker - Family History Maternal Family History: Reports: Heart Disease, Stroke Paternal Family History: Reports: High Cholesterol, Stroke Review of Systems General: Denies: Chills, Fever, Sweats Eyes: Denies: Visual changes - bilaterally, Diplopia ENT: Denies: Rhinorrhea, Sore throat Cardiovascular: Reports: Palpitations, Heart racing. Denies: Chest pain Respiratory: Denies: Dyspnea, Cough, Dyspnea on exertion Gastrointestinal: Denies: Abdominal pain, Nausea, Vomiting, Diarrhea, Melena, Hematochezia Genitourinary: Denies: Dysuria, Hematuria, Frequency Musculoskeletal: Denies: Back pain, Extremity Pain Skin: Denies: Rash, Wounds Neurological: Denies: Headache, Weakness, Numbness Physical Exam Vital Signs/Narrative: Vital Signs Temp Pulse Resp BP Pulse Ox 03/05/20 07:51 87 20 H 03/05/20 07:47 98.7 F 87 22 H 112/58 L 99 Inital Vital Signs reviewed: Yes General: Well nourished, Well developed, Obese, No Acute Distress Head: Normocephalic, Atraumatic Eyes: Perrl, EOMI ENT: Moist mucous membranes, No rhinorrhea Neck: Supple, Nontender Cardiovascular: Regular rate, Regular rhythm, No murmurs Respiratory: No distress, CTA bilaterally, Chest nontender Abdomen: Soft, Nontender, Nondistended, Normal bowel sounds Back: Nontender, Normal Inspection Extremities: Nontender, No edema Skin: Normal color, No rash Neurological: Alert, Oriented x3, Cranial nerves II-XII grossly intact, Normal Strength, Normal Sensation Psychological: Normal affect, Normal Mood Diagnostic/Tx/Re-eval Laboratory Last Values WBC 5.9 K/mm3 (4.4-11.0) 03/05/20 08:54 RBC 4.31 M/mm3 (4.2-5.4) 03/05/20 08:54 Hgb 11.1 g/dL (12.0-15.0) L 03/05/20 08:54 Hct 34.5 % (37-47) L 03/05/20 08:54 MCV 80.0 fL (81-99) L 03/05/20 08:54 MCH 25.8 pg (27.0-32.0) L 03/05/20 08:54 MCHC 32.2 g/dL (32-36) 03/05/20 08:54 RDW Std Deviation 43.7 fl (35.1-43.9) 03/05/20 08:54 RDW Coeff of Millie 15.0 % (11.6-14.6) H 03/05/20 08:54 Plt Count 264 K/mm3 (150-450) 03/05/20 08:54 MPV 8.8 fl (6.2-12.0) 03/05/20 08:54 Immature Gran % (Auto) 0.300 % (0.0-0.9) 03/05/20 08:54 Neut % (Auto) 48.0 % (47-70) 03/05/20 08:54 Lymph % (Auto) 42.8 % (19-41) H 03/05/20 08:54 [place] % (Auto) 5.9 % (0-10) 03/05/20 08:54 Eos % (Auto) 2.5 % (0-5) 03/05/20 08:54 Baso % (Auto) 0.5 % (0-1) 03/05/20 08:54 Absolute Neuts (auto) 2.8 X10^3/uL (2.0-7.7) 03/05/20 08:54 Absolute Lymphs (auto) 2.53 X10^3/uL (0.83-4.51) 03/05/20 08:54 Nucleated RBC % 0 % (0-5) 03/05/20 08:54 Sodium 138 mmol/L (136-145) 03/05/20 08:54 Potassium 3.5 mmol/L (3.5-5.1) 03/05/20 08:54 Chloride 108 mmol/L (98-107) H 03/05/20 08:54 Carbon Dioxide 23.0 mmol/L (21.0-32.0) 03/05/20 08:54 Anion Gap 7 (5-15) 03/05/20 08:54 BUN 4 mg/dL (7-18) L 03/05/20 08:54 Creatinine 0.52 mg/dL (0.55-1.02) L 03/05/20 08:54 Estim Creat Clear Calc 122.63 ml/min 03/05/20 08:54 Est GFR (MDRD) Af Amer 180 mL/min (>60) 03/05/20 08:54 Est GFR (MDRD) Non-Af 149 mL/min (>60) 03/05/20 08:54 BUN/Creatinine Ratio 7.7 RATIO (10-20) L 03/05/20 08:54 Glucose 194 mg/dL (74-106) H 03/05/20 08:54 Calcium 8.6 mg/dL (8.5-10.1) 03/05/20 08:54 - EKG Initial EKG Interpretation: Sinus Rhythm - Initial EKG shows a normal sinus rhythm at a rate of 87 with no concerning features of ACS - Medical Decision Making She was observed on the monitor has remained in a normal sinus rhythm in the 80s. Her EKG is normal sinus with no concerning features. Basic labs do not show anything acute. To be discharged home with supportive care following up with her doctors ED Disposition - Plan for ED Patient: Disposition: Home or Assisted Living Diagnosis: Palpitations Instructions: ED Palpitations Referrals: Anuj Miles MD [Primary Care Provider] - As Needed
[2020-03-05 09:02] LABS: Absolute Lymphocyte Count 2.53 X10^3/uL (0.83-4.51); Absolute Neutrophil Count 2.8 X10^3/uL (2.0-7.7); Basophil# 0.03 X10^3/uL; Basophil% 0.5 % (0-1); Eosinophil# 0.15 X10^3/uL; Eosinophils% 2.5 % (0-5); Hematocrit 34.5 % (37-47); Hemoglobin 11.1 g/dL (12.0-15.0); Lymphocyte # 2.53 X10^3/ul (4.0); Lymphocyte % 42.8 % (19-41); Mean Corp Hgb Conc 32.2 g/dL (32-36); Mean Corpuscular Hgb 25.8 pg (27.0-32.0); Mean Platelet Vol. 8.8 fl (6.2-12.0); Monocyte# 0.35 X10^3/uL; Monocyte% 5.9 % (0-10); NRBC Flagged by Analyzer 0 % (0-5); Neutrophil # 2.83 X10^3/uL (2.7-7.7); Platelet Count 264 K/mm3 (150-450); RBC Distribution Width SD 43.7 fl (35.1-43.9); Red Blood Count 4.31 M/mm3 (4.2-5.4); White Blood Count 5.9 K/mm3 (4.4-11.0)
[2020-03-05 09:15] LABS: Anion Gap 7 (5-15); BUN 4 mg/dL (7-18); BUN/Creat Ratio 7.7 RATIO (10-20); Calcium,Total 8.6 mg/dL (8.5-10.1); Chloride 108 mmol/L (98-107); Creatinine, Serum 0.52 mg/dL (0.55-1.02); EST Glomerular Filtration Rate 149 mL/min (>60); Est Glom Filt Rate - Afr Amer 180 mL/min (>60); Estimated Creatinine Clearance 122.63 ml/min; Glucose 194 mg/dL (74-106); Potassium 3.5 mmol/L (3.5-5.1); Sodium Level 138 mmol/L (136-145)
[2020-03-05 09:24] VITALS: BP 114/80; PULSE 85; RESP 18; O2SAT 95
== END 2020-03-05 09:25 | disposition home or self-care (01) ==
LOC: ED 08:27
PROVIDERS: Emergency Provider Emergency Medicine; PCP Family Medicine
DX: R00.2 Palpitations (principal); E66.9 Obesity, unspecified
CPT/HCPCS: 36415; 80048; 85025; 93005; 99285; A4216

== ENCOUNTER 2020-03-05 22:58 | Emergency (ER) | payer MEDICAID, SELFPAY ==
[2020-03-05 07:47] VITALS: BMI 45.0
[2020-03-05 23:00] VITALS: BP 140/89; PULSE 116; RESP 16; TEMP 36.7; O2SAT 96; BMI 45.0
--- NOTE | 2020-03-05 23:19 | EKG12_ITS ---
Test Reason : SYNCOPE Blood Pressure : / mmHG Vent. Rate : 115 BPM Atrial Rate : 115 BPM P-R Int : 156 ms QRS Dur : 086 ms QT Int : 330 ms P-R-T Axes : 038 027 014 degrees QTc Int : 456 ms Sinus tachycardia Possible Left atrial enlargement Borderline ECG Confirmed by CLEO HOLLIS, ROSE ([id number]), department editor ADRIANNA DOZIER ([id number]) on 03/08/2020 9:03:25 AM Referred By: LUCY Confirmed By:ROSE GALLO MD
--- NOTE | 2020-03-05 23:19 | CT_ITS ---
STUDY: CT BRAIN WITHOUT CONTRAST REASON FOR EXAM: Female, 29 years old. DIZZINESS, SYNCOPE. FALL ALL WEEK. NUMBNESS/TINGLING. RADIATION DOSAGE (If Supplied By Facility): CTDIvol = ( 44.99 ) mGy, DLP = ( 745.49 ) mGycm TECHNIQUE: Transaxial CT imaging of the brain was performed without administration of intravenous contrast material. Individualized dose optimization techniques were used for this CT. COMPARISON: No relevant priors. FINDINGS: Normal soft tissue structures. Normal calvarium. Normal size ventricles and extra-axial spaces for the patient''s age. Normal white matter tracts of the cerebral hemispheres. Normal basal ganglia and thalami. Normal brainstem. Normal cerebellum. There is no intracranial hemorrhage. There are no findings of an acute ischemic infarction. Normal visualized paranasal sinuses. CT/Brain/Head without Contrast IMPRESSION: Normal unenhanced CT scan of the brain. Electronically Signed: Mario Headley, at 0:06 EDT Tel , Service support ,
--- NOTE | 2020-03-06 00:58 | ED.VISSUMM ---
- ER Visit Summary Date of Service: 03/06/20 Chief Complaint: [Syncope and headache and paresthesias] History of Present Illness: The patient is a 29 F [presents the emergency department with a syncopal episode this evening. Patient states that she had been sitting and got up to wash her face and brush her teeth when she began feeling lightheaded and dizzy and passed out. When she woke up on the floor patient had some paresthesias to the right side of her face. Patient states that she is been battling a migraine headache for several days. She has history of migraines. She also has history of PE and is currently on Xarelto which she discontinued about 5 days ago because she is scheduled to have a lumbar puncture. Patient states that she has had prior history of TIA. Patient was seen earlier in the day in this emergency department for palpitations and had lab work that was unremarkable. Patient also wears a loop recorder that she has had for about a year. Patient has history of syncopal episodes. She denies any focal weakness. She denies any difficulty with speech. She denies any vision changes.] Physical Examination: [HEENT-PERRLA, EOMI. Cranial nerves II through XII grossly intact. TMs clear. Mucous membranes moist. No adenopathy. Cardiovascular-regular rate and rhythm without murmur or ectopy Lungs-clear to auscultation, chest wall stable without crepitus or subcu emphysema Abdomen-normoactive bowel sounds, soft, nontender, no rebound or rigidity, no peritoneal signs. Neuro hcuu-[id number]-[id number] and heel rivas testing within normal limits, negative Romberg, negative for drift, fundi benign. There is no facial droop. No focal weakness noted. She does have slightly decreased in station the right side of the face compared to the left. Extremities-intact ?4, normal range of motion, normal pulses, atraumatic] Test Results: [Patient had a CT scan of the brain without contrast that was unremarkable. I had ordered patient an IV with fluids as well as Reglan, Benadryl, Nubain however she is a very difficult IV stick and this was unsuccessful. I was told we do not have Nubain available in the hospital. Was given a milligram of Dilaudid IM instead of Nubain.] I suspect her paresthesias may be related to her migraine. I do not feel patient is having a stroke. Emergency Department Course and Treatment: [Patient given Reglan, Benadryl, and milligram of Dilaudid.] Treatment Plan: [Advised to follow-up with her neurologist in 3 to 5 days.] Disposition: [Discharged home in stable condition] Impression: [Syncope Migrainous cephalgia Paresthesias ] This note was generated with [employer] dictation software. It may contain incorrect words, spelling, and punctuation that were not noted in review of the chart prior to signing ED Disposition - Plan for ED Patient: Referrals: Anuj Miles MD [Primary Care Provider] -
--- NOTE | 2020-03-06 01:03 | ED.DEP ---
ED Disposition - Plan for ED Patient: Instructions: ED PERIPHERAL NEUROPATHY, ED, Migraine (Classical), ED Fainting Uncertain Cause Referrals: Anuj Miles MD [Primary Care Provider] - 3-5 Days
[2020-03-06] MEDS: Metoclopramide 10 MG/2 ML Vial IM (01:13)
[2020-03-06] MEDS: DiphenhydrAMINE 50 MG/ML Syringe 25 MG IM (01:13)
[2020-03-06] MEDS: HYDROmorphone 1 MG/ML Syringe IM (01:17)
--- NOTE | 2020-03-06 01:49 | ED.RN ---
UNABLE TO GET IV. MD AWARE AND CHANGED ORDERS TO IM. PT AWARE AND AGREES.
== END 2020-03-06 01:52 | disposition home or self-care (01) ==
PROVIDERS: Emergency Provider Emergency Medicine; PCP Family Medicine
DX: R55 Syncope and collapse (principal); R51 Headache; R20.2 Paresthesia of skin; R00.2 Palpitations; E66.9 Obesity, unspecified; Z79.01 Long term (current) use of anticoagulants; Z86.711 Personal history of pulmonary embolism; Z86.73 Personal history of transient ischemic attack (TIA), and cerebral infarction without residual deficits
CPT/HCPCS: 36415; 70450; 80048; 85025; 93005; 96372; 99285; A4216

== ENCOUNTER 2020-03-07 21:09 | Emergency (ER) | payer MEDICAID, SELFPAY ==
[2020-03-07 21:10] VITALS: BP 147/91; PULSE 106; RESP 18; TEMP 37; O2SAT 94; BMI 41.5
--- NOTE | 2020-03-07 22:12 | EKG12_ITS ---
Test Reason : SYNCOPE Blood Pressure : / mmHG Vent. Rate : 094 BPM Atrial Rate : 094 BPM P-R Int : 158 ms QRS Dur : 092 ms QT Int : 366 ms P-R-T Axes : 022 009 003 degrees QTc Int : 457 ms Normal sinus rhythm Normal ECG Confirmed by TRINITY HOLLIS, RAFAEL ([id number]), editorial manager ADRIANNA DOZIER ([id number]) on 03/09/2020 1:04:06 PM Referred By: DC Confirmed By:RAFAEL PETERSEN MD
[2020-03-07] MEDS: proMETHazine 25 MG/ML Syringe 12.5 MG IM (22:19)
--- NOTE | 2020-03-07 22:20 | CT_ITS ---
STUDY: CT BRAIN WITHOUT CONTRAST REASON FOR EXAM: Female, 29 years old. Syncope with nausea and dizziness. RADIATION DOSAGE (If Supplied By Facility): CTDIvol = ( 44.99 ) mGy, DLP = ( 779.24 ) mGycm TECHNIQUE: Transaxial CT imaging of the brain was performed without administration of intravenous contrast material. Individualized dose optimization techniques were used for this CT. COMPARISON: 03/05/2020. FINDINGS: Normal soft tissue structures. Normal calvarium. Normal size ventricles and extra-axial spaces for the patient''s age. Normal white matter tracts of the cerebral hemispheres. Normal basal ganglia and thalami. Normal brainstem. Normal cerebellum. There is no intracranial hemorrhage. There are no findings of an acute ischemic infarction. Normal visualized paranasal sinuses. CT/Brain/Head without Contrast IMPRESSION: Normal unenhanced CT scan of the brain. There is no interval change. Electronically Signed: Sean Rankin DO at 22:35 EDT Tel [phone], Service support ,
--- NOTE | 2020-03-08 00:01 | ED.VISSUMM ---
- ER Visit Summary Date of Service: 03/08/20 Chief Complaint: Dizziness and passing out History of Present Illness: The patient is a 29 F who reports feeling dizzy and passing out earlier today. She believes she hit her head and she vomited. She takes oral anticoagulation for factor V Leiden, DVT, and PE. She has a history of syncope and has been seen multiple times for this. She has a loop recorder. Her last visit for syncope was 3 days ago. Physical Examination: Afebrile and vital signs unremarkable. Head and neck are atraumatic. No signs of trauma. Heart tachycardic but regular. Lungs clear. Skin appears normal. Cranial nerves grossly intact. Normal strength and sensation. Test Results: EKG shows sinus rhythm at a rate of 94. CT brain was unremarkable. Emergency Department Course and Treatment: Patient has many visits already this year including multiple visits for syncope. She had unremarkable blood work 2 days ago. She is complaining of head pain and is on anticoagulation. CT brain was repeated today and was unremarkable. EKG was unremarkable. Vital signs are reassuring. She has a loop recorder. I do not believe that the potential benefits of admission outweigh the potential risks. I do not believe she needs further emergent evaluation. Patient received Phenergan for nausea. She has a care plan for no opiates. She is aware of this. She requests Tylenol. She is able to tolerate p.o. She will be discharged with seizure and syncope precautions. Follow-up with her outpatient physician. Treatment Plan: As above Disposition: Discharge Impression: Syncope This note was generated with [employer] dictation software. It may contain incorrect words, spelling, and punctuation that were not noted in review of the chart prior to signing ED Disposition - Plan for ED Patient: Referrals: Anuj Miles MD [Primary Care Provider] -
--- NOTE | 2020-03-08 00:04 | ED.DEP ---
ED Disposition - Plan for ED Patient: Instructions: ED Fainting Uncertain Cause Referrals: Anuj Miles MD [Primary Care Provider] -
[2020-03-08] MEDS: Acetaminophen 500 MG Tablet 1000 MG PO (00:25)
[2020-03-08 00:26] VITALS: BP 132/87; PULSE 89; RESP 16; O2SAT 97
== END 2020-03-08 00:27 | disposition home or self-care (01) ==
LOC: ED 22:54
PROVIDERS: Emergency Provider Emergency Medicine; PCP Family Medicine
DX: R55 Syncope and collapse (principal); D68.51 Activated protein C resistance; Z79.01 Long term (current) use of anticoagulants; Z86.718 Personal history of other venous thrombosis and embolism; Z86.711 Personal history of pulmonary embolism
CPT/HCPCS: 70450; 93005; 96372; 99285

== ENCOUNTER 2020-03-10 17:00 | Emergency (ER) | payer MEDICAID, SELFPAY ==
[2020-03-10 17:04] VITALS: BP 119/65; PULSE 93; RESP 14; TEMP 36.9; BMI 44.1
[2020-03-10 17:11] VITALS: O2SAT 100
--- NOTE | 2020-03-10 17:29 | EKG12_ITS ---
Test Reason : SYNCOPE Blood Pressure : / mmHG Vent. Rate : 096 BPM Atrial Rate : 096 BPM P-R Int : 156 ms QRS Dur : 090 ms QT Int : 350 ms P-R-T Axes : 023 019 017 degrees QTc Int : 442 ms Normal sinus rhythm Normal ECG Confirmed by ADRIANA HOLLIS, KAYLYNN ([id number]), editorial clerk ADRIANNA DOZIER ([id number]) on 03/11/2020 11:31:12 A M Referred By: EDDA Confirmed By:CODEY WRIGHT MD
--- NOTE | 2020-03-10 17:29 | CT_ITS ---
STUDY: CT BRAIN WITHOUT CONTRAST REASON FOR EXAM: Female, 29 years old. TRAUMA, ON XARELTO RADIATION DOSAGE (If Supplied By Facility): CTDIvol = ( 44.99 ) mGy, DLP = ( 745.49 ) mGycm TECHNIQUE: Transaxial CT imaging of the brain was performed without administration of intravenous contrast material. Individualized dose optimization techniques were used for this CT. COMPARISON: 03/07/2020 FINDINGS: Normal soft tissue structures. Normal calvarium. Normal size ventricles and extra-axial spaces for the patient''s age. Normal white matter tracts of the cerebral hemispheres. Normal basal ganglia and thalami. Normal brainstem. Normal cerebellum. There is no intracranial hemorrhage. There are no findings of an acute ischemic infarction. Normal visualized paranasal sinuses. No change since prior study CT/Brain/Head without Contrast IMPRESSION: Normal unenhanced CT scan of the brain. Electronically Signed: Allan Suazo MD at 18:42 EDT , Service support ,
--- NOTE | 2020-03-10 17:33 | ED.DCSUM_ITS ---
- ER Visit Summary Date of Service: 03/10/20 Chief Complaint: Syncope and headache History of Present Illness: The patient is a [address] Miles. She reports that she has had a headache on the right side for the past week. States that it is 10 out of 10 at worst and a 10 currently. Is a throbbing pain that she is taken her Maxalt without relief. She reports is increased with bending over or light. She is been nauseated and vomited 4 times today. No blood in her emesis. Patient reports that just prior to coming emerge department she had just taken a bath and was getting dressed afterwards. She had been out of the bath for approximately 10 minutes when she became lightheaded and diaphoretic. She denies any new nausea, palpitations, or chest pain. She does report that she has these symptoms chronically and that they were unchanged. She denies any injury from the syncope. She denies any new neck, back, shoulder, wrist, or hip pain. Physical Examination: Vitals: Stable. Afebrile. Head: Atraumatic. Neck: No vertebral tenderness. Full ROM without difficulty. Cleared by NEXUS criteria. Back: No vertebral tenderness. General: A&O x 3. NAD. Cardiovascular exam: Regular rate and rhythm, no murmur, rub or gallop. Respiratory exam: Chest nontender. No crepitus. Clear to auscultation bilaterally. No wheezes or stridor. Abdominal exam: Soft, nontender, nondistended, normal bowel sounds. No pain in RUQ or LUQ specifically. No peritoneal signs. Extremity: Atraumatic. No pain with range of motion. Test Results: EKG is sinus at 96 and is unchanged from 3 days ago. CBC shows a hemoglobin 11.9. Platelets of 136. Her platelets were 223 5 days ago. In 2020 they have ranged between 223?461. Chem-7 shows a glucose of 246. test is negative. Emergency Department Course and Treatment: Patient does have a care plan in the emergency department. She was seen by case management in the emergency department due to this care plan. She was given Tylenol p.o. multiple attempts at an IV were made without success. Patient was given Reglan and Benadryl p.o. She had negative orthostatic vital signs. She is resting comfortably. Treatment Plan: Patient will be discharged with symptomatic care. Instructed to push fluids. Patient will be discharged with instructions to follow-up with her neurologist as soon as possible regarding her migraine. She is instructed to follow-up with her primary care physician within 3 to 5 days for her syncope. It does not sound cardiac in etiology. She is already on Xarelto. This does not sound to be due to a PE. Disposition: To home in improved and stable condition. Impression: 1. Syncope. 2. Migraine headache. 3. ED care plan. 4. Thrombocytopenia, uncertain cause. This note was generated with [employer] software. It may contain incorrect words, spelling, and punctuation that were not noted in review of the chart prior to signing ED Disposition - Plan for ED Patient: Instructions: ED Fainting Uncertain Cause, Thrombocytopenia Referrals: Anuj Miles MD [Primary Care Provider] - 2 Days Additional Instructions: Follow-up with your neurologist as soon as possible.
[2020-03-10] MEDS: DiphenhydrAMINE 25 MG Capsule 50 MG PO (18:12)
[2020-03-10] MEDS: Acetaminophen 500 MG Tablet 1000 MG PO (18:12)
[2020-03-10] MEDS: Metoclopramide 10 MG Tablet PO (18:17)
--- NOTE | 2020-03-10 18:20 | ED.RN ---
PT REQUESTED RN CALL S/O LAURA. RN ATTEMPTED WITH NO SUCCESS, PT NOTIFIED AT THIS TIME.
[2020-03-10 18:25] VITALS: BP 118/65; BP 120/64; BP 122/68; PULSE 89; PULSE 90
[2020-03-10 18:41] LABS: Absolute Lymphocyte Count 2.26 X10^3/uL (0.83-4.51); Basophil# 0.03 X10^3/uL; Basophil% 0.4 % (0-1); Eosinophil# 0.08 X10^3/uL; Hematocrit 37.2 % (37-47); Hemoglobin 11.9 g/dL (12.0-15.0); Lymphocyte # 2.26 X10^3/ul (4.0); Lymphocyte % 29.4 % (19-41); Mean Corpuscular Hgb 25.9 pg (27.0-32.0); Monocyte# 0.34 X10^3/uL; Monocyte% 4.4 % (0-10); NRBC Flagged by Analyzer 0 % (0-5); Neutrophil # 4.96 X10^3/uL (2.7-7.7); Neutrophil % 64.4 % (47-70); POSITIVE COUNT YES; Platelet Count 136 K/mm3 (150-450); RBC Distribution Width CV 14.7 % (11.6-14.6); RBC Distribution Width SD 42.8 fl (35.1-43.9); Red Blood Count 4.59 M/mm3 (4.2-5.4); White Blood Count 7.7 K/mm3 (4.4-11.0)
--- NOTE | 2020-03-10 18:44 | CM.ED ---
Social Work Consult: Active ED Care Plan Informant: Self Referral Met with patient in room. Introduced self and social insurance adviser role. Patient agreeable to speaking with this social insurance adviser. This social insurance adviser acknowledging with patient that patient has had 31 ED visit this year. Patient states I know that. Patient states to have all needed support in the community and then kindly asked this social insurance adviser to leave the room as I don't want to talk with you. This social insurance adviser thanking patient for patient honesty and encouraged patient to call into the ED with any questions/community resource needs and ask for social work services to assist patient. Patient voicing understanding to this. Updated medical team. Eduardo CHO, SHARON
[2020-03-10 19:12] LABS: Differential Indicated SCAN CRITERIA MET
[2020-03-10 19:29] LABS: Differential Comment SCANNED
[2020-03-10 19:31] LABS: Internal QC Validated? YES +Cl - CLEAR BKGD; Pregnancy, Serum, hCG Quali. NEGATIVE Negative
[2020-03-10 19:36] LABS: Anion Gap 8 (5-15); BUN 7 mg/dL (7-18); BUN/Creat Ratio 10.5 RATIO (10-20); Chloride 107 mmol/L (98-107); Creatinine, Serum 0.66 mg/dL (0.55-1.02); EST Glomerular Filtration Rate 113 mL/min (>60); Est Glom Filt Rate - Afr Amer 136 mL/min (>60); Estimated Creatinine Clearance 96.62 ml/min; Glucose 246 mg/dL (74-106); Potassium 4.5 mmol/L (3.5-5.1); Sodium Level 137 mmol/L (136-145)
[2020-03-10 19:46] VITALS: BP 132/58; PULSE 91; RESP 16; O2SAT 98
== END 2020-03-10 19:47 | disposition home or self-care (01) ==
LOC: ED 17:40
PROVIDERS: Emergency Provider Emergency Medicine; PCP Family Medicine
DX: R55 Syncope and collapse (principal); G43.909 Migraine, unspecified, not intractable, without status migrainosus; D69.6 Thrombocytopenia, unspecified; E11.9 Type 2 diabetes mellitus without complications; D68.51 Activated protein C resistance; F41.9 Anxiety disorder, unspecified; F32.9 Major depressive disorder, single episode, unspecified; Z86.711 Personal history of pulmonary embolism; Z86.73 Personal history of transient ischemic attack (TIA), and cerebral infarction without residual deficits; Z79.84 Long term (current) use of oral hypoglycemic drugs; Z79.02 Long term (current) use of antithrombotics/antiplatelets; Z79.899 Other long term (current) drug therapy
CPT/HCPCS: 70450; 80048; 84703; 85025; 93005; 99285; J7030; A4216

== ENCOUNTER 2020-03-12 04:31 | Emergency (ER) | payer MEDICAID, SELFPAY ==
[2020-03-12 04:32] VITALS: BP 150/93; PULSE 108; RESP 18; TEMP 36.3; O2SAT 92; BMI 44.7
--- NOTE | 2020-03-12 05:16 | ED.DCSUM_ITS ---
History of Present Illness Chief Complaint: Headache Informant: Patient Narrative: Stated she has had a migraine on and off for the last week. Worse today. She has nausea and photophobia. Has a history of migraines. Sees her neurologist. She is on triptan's as well as Fioricet. She stated she has taken multiple doses of each with minimal relief. She is well-known to the emergency department with frequent visits. Current severity is severe per patient. It was not thunderclap. No history of intracranial hemorrhage. - Past Medical History (1) Anemia Status: Acute (2) Bilateral leg numbness Status: Acute (3) Cephalgia Status: Acute (4) Numbness and tingling of right side of face Status: Acute (5) Right facial numbness Status: Acute (6) Anxiety Status: Chronic (7) Factor V Leiden Status: Chronic (8) MDD (major depressive disorder) Status: Chronic (9) Migraines Status: Chronic (10) PTSD (post-traumatic stress disorder) Status: Chronic (11) Pulmonary emboli Status: Chronic (12) Pulmonary embolus, right Status: Chronic (13) TIA (transient ischemic attack) Status: Chronic Past Medical History - Allergies and Home Meds Allergies/Adverse Reactions: Allergies furosemide [From Lasix] Allergy (Verified 03/12/20 04:34) Hives Iodinated Contrast Media Allergy (Verified 03/12/20 04:34) Hives ondansetron [From Zofran] Allergy (Verified 03/12/20 04:34) Hives propranolol Allergy (Verified 03/12/20 04:34) Angioedema sumatriptan [From Imitrex] Allergy (Verified 03/12/20 04:34) Other CHEST PAIN HEART ATTACK SYMPTOMS ketorolac [From Toradol] Adverse Reaction (Verified 03/12/20 04:34) Hives prochlorperazine [From Compazine] Adverse Reaction (Verified 03/12/20 04:34) Other AGIATION, PT STATES NEEDS BENADRYL Primary Care Physician: Anuj Miles MD [Primary Care Provider] - Prior records reviewed: Yes Past Medical History: - - See problem list Surgical History: cholecystectomy, - - , tubal ligation, left ovary r emoved, loop recorder implanted, Mediport implanted Smoking Status: Never smoker Alcohol: None Drugs: None - Family History Maternal Family History: Reports: Heart Disease, Stroke Paternal Family History: Reports: High Cholesterol, Stroke Review of Systems General: Denies: Chills, Fever, Sweats Eyes: Denies: Visual changes - bilaterally, Diplopia ENT: Denies: Rhinorrhea, Sore throat Cardiovascular: Denies: Chest pain, Palpitations Respiratory: Denies: Dyspnea, Cough, Dyspnea on exertion Gastrointestinal: Denies: Abdominal pain, Nausea, Vomiting, Diarrhea, Melena, Hematochezia Genitourinary: Denies: Dysuria, Hematuria, Frequency Musculoskeletal: Denies: Back pain, Extremity Pain Skin: Denies: Rash, Wounds Neurological: Reports: Headache. Denies: Weakness, Numbness Physical Exam Vital Signs/Narrative: Vital Signs Temp Pulse Resp BP Pulse Ox 03/12/20 04:32 97.4 F L 108 H 18 150/93 H 92 General: Well nourished, Well developed, No Acute Distress Head: Normocephalic, Atraumatic Eyes: Perrl, EOMI ENT: Moist mucous membranes, No rhinorrhea Neck: Supple, Nontender Cardiovascular: Regular rate, Regular rhythm, No murmurs Respiratory: No distress, CTA bilaterally, Chest nontender Abdomen: Soft, Nontender, Nondistended, Normal bowel sounds Back: Nontender, Normal Inspection Extremities: Nontender, No edema Skin: Normal color, No rash Neurological: Alert, Oriented x3, Cranial nerves II-XII grossly intact, Normal Strength, Normal Sensation Psychological: Normal affect, Normal Mood Diagnostic/Tx/Re-eval - Medical Decision Making She has an acute headache with history of migraine and normal physical exam. Treated with ibuprofen Benadryl and Reglan. She is allergic to Toradol. She has a care plan. We will follow-up as an outpatient. I do not feel she needs acute imaging as I do not feel she has an acute intracranial hemorrhage. We will follow-up as an outpatient ED Disposition - Plan for ED Patient: Disposition: Home or Assisted Living Diagnosis: Headache Instructions: ED, Migraine (Classical) Referrals: Anuj Miles MD [Primary Care Provider] -
[2020-03-12] MEDS: Metoclopramide 10 MG/2 ML Vial 5 MG IM (05:20)
[2020-03-12] MEDS: DiphenhydrAMINE 50 MG/ML Syringe 25 MG IM (05:20)
[2020-03-12] MEDS: Ibuprofen 600 MG Tablet PO (05:24)
[2020-03-12 05:41] VITALS: RESP 18
== END 2020-03-12 05:41 | disposition home or self-care (01) ==
LOC: ED 05:18
PROVIDERS: Emergency Provider Emergency Medicine; PCP Family Medicine
DX: G43.909 Migraine, unspecified, not intractable, without status migrainosus (principal); D68.51 Activated protein C resistance; Z86.711 Personal history of pulmonary embolism; Z86.73 Personal history of transient ischemic attack (TIA), and cerebral infarction without residual deficits; Z79.02 Long term (current) use of antithrombotics/antiplatelets; Z79.899 Other long term (current) drug therapy
CPT/HCPCS: 96372; 99284

== ENCOUNTER 2020-03-21 17:12 | Emergency (ER) | payer MEDICAID, SELFPAY ==
[2020-03-21 17:13] VITALS: BP 133/89; PULSE 87; RESP 16; TEMP 37; O2SAT 97; BMI 44.3
--- NOTE | 2020-03-21 17:22 | RAD_ITS ---
STUDY: X-RAY CHEST REASON FOR EXAM: Female, 30 years old. NAUSEA, VOMITING, HEMATEMESIS TECHNIQUE: Single AP portable view of the chest. COMPARISON: 02/25/2020. FINDINGS: The lungs are clear and expanded. There is no demonstrated pleural abnormality. Normal size heart. Normal mediastinum and teja. Normal visualized pulmonary arteries. Normal visualized aortic arch and descending thoracic aorta. Normal visualized thoracic spine. Normal visualized ribs, clavicles, and shoulders. There is no demonstrated abnormality of the visualized soft tissue structures of the upper abdomen. RAD/Chest 1 View (Portable) IMPRESSION: Normal x-ray examination of the chest. Electronically Signed: Kymberly Wagoner MD at 18:13 EDT Tel , Service support ,
[2020-03-21] MEDS: proMETHazine 25 MG Tablet PO (17:27)
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
[2020-03-21] MEDS: Pantoprazole Sodium 40 MG Tablet PO (17:50)
[2020-03-21] MEDS: Mag Hydrox/Al Hydrox/Simeth 30 ML UDC PO (17:50)
--- NOTE | 2020-03-21 18:38 | ED.RN ---
Pt approached nurses station stating she cannot wait any longer because her ride had to go. Dr Duval made aware.
== END 2020-03-21 18:40 | disposition home or self-care (01) ==
LOC: ED 18:03
PROVIDERS: Emergency Provider Emergency Medicine; PCP Family Medicine
DX: K92.0 Hematemesis (principal); E66.9 Obesity, unspecified; D68.51 Activated protein C resistance; Z86.711 Personal history of pulmonary embolism; Z79.02 Long term (current) use of antithrombotics/antiplatelets; Z86.73 Personal history of transient ischemic attack (TIA), and cerebral infarction without residual deficits; Z87.891 Personal history of nicotine dependence
CPT/HCPCS: 71045; 99285

== ENCOUNTER 2020-04-14 11:17 | Emergency (ER) | payer MEDICAID, SELFPAY ==
[2020-04-14 11:20] VITALS: BP 115/72; PULSE 90; RESP 25; TEMP 36.9; O2SAT 98; BMI 41.3
--- NOTE | 2020-04-14 11:51 | VDLE_ITS ---
Reason For Study: Chest pain RIGHT LEFT GSV is normal. GSV is normal. CFV is compressible, spontaneous, phasic, CFV is compressible, spontaneous, phasic, competent and demonstrates normal competent, and demonstrates normal augmentation. augmentation. FV is compressible, spontaneous, phasic, FV is compressible, spontaneous, phasic, competent and demonstrates normal competent and demonstrates normal augmentation. augmentation. POP V is compressible, spontaneous, phasic, POP V is compressible, spontaneous, phasic, competent and demonstrates normal competent and demonstrates normal augmentation. augmentation. T/P Trunk is compressible. T/P Trunk is compressible. PTV is compressible. PTV is compressible. RT PerV is compressible. LT PerV is compressible. Procedure Exam performed portable in ED. A preliminary report was called and/or faxed to Eric. Interpretation Summary No evidence for acute deep venous thrombosis bilateral lower extremities with patent and compressible bilateral great saphenous veins. Ordering Physician: Kit Reyes Referring Physician: Anuj Miles Performed By: Millie Reed RVT
[2020-04-14 12:43] VITALS: BP 115/78; PULSE 72; RESP 19
--- NOTE | 2020-04-14 12:54 | ED.DCSUM_ITS ---
- ER Visit Summary Date of Service: 04/14/20 Chief Complaint: Chest pain History of Present Illness: The patient is a [address] Miles. She reports she has chest pain again on approximately 1 week ago. Is been a continuous pressure is 10 of 10 worsening to 10 currently. Is worsened by breathing and relieved by nothing. Does report that she is mildly short of breath. She denies any nausea, vomiting, or diaphoresis. Reports has had similar symptoms previously with a PE. She has a history of factor V Leiden deficiency. She was on Xarelto which was stopped by her primary care physician approximately 1 month ago. Patient reports that she was hospitalized approximately 1 week ago at [place] for chest pain. She reports that they did a CAT scan were not sure exactly what it was. She was heparinized while in the hospital. She was not discharged on anticoagulants. Physical Examination: Vitals: Stable. Afebrile. General: Well-nourished and well-developed. Head: Normocephalic atraumatic. Neck: Supple, no lymphadenopathy. No JVD. Nontender. Cardiovascular: Regular rate and rhythm. No murmurs. Respiratory: No respiratory distress. Clear to auscultation bilaterally. Abdominal: Soft, nontender, nondistended, normal bowel sounds. No guarding, rebound, or peritoneal signs. Back: Nontender. Extremities: Nontender, no edema. Skin: Normal color, no rash. Neurologic: Alert and oriented ?3. Cranial nerves II through XII are intact. Normal strength and sensation. Psych: Normal affect. Test Results: Bilateral lower extremity Dopplers are negative. Emergency Department Course and Treatment: I reviewed the patient's notes from [facility]. She had a CT of the chest that showed a tiny subsegmental PE versus artifact which was favored on a CT on March 29. I do not think that exposing her to the radiation of a repeat CT is indicated. Her heart rate is in the 70s. Her blood pressure is stable. Her pulse ox is 98% on room air. At this time as patient does have a PE it is small enough not to cause any hemodynamic instability. She also does not have clots in her legs. Treatment Plan: Patient will be discharged instructed to follow-up with her primary care physician tomorrow for further discussion about whether or not to restart Xarelto. Return to the emergency department for any worsening symptoms. Disposition: To home in improved and stable condition. Impression: 1. Chest pain. 2. ED care plan. This note was generated with [employer] dictation software. It may contain incorrect words, spelling, and punctuation that were not noted in review of the chart prior to signing ED Disposition - Plan for ED Patient: Instructions: ED Chest Pain Atypical Unkn Cause Referrals: Anuj Miles MD [Primary Care Provider] - 1 Day Additional Instructions: Call Dr. Miles and speak with him about your chest pain and whether or not he wants you to restart Xarelto.
[2020-04-14] MEDS: Metoclopramide 10 MG Tablet PO (13:29)
[2020-04-14 14:59] VITALS: BP 121/78; PULSE 85; RESP 18; O2SAT 97
== END 2020-04-14 15:01 | disposition home or self-care (01) ==
LOC: ED 12:27
PROVIDERS: Emergency Provider Emergency Medicine; PCP Family Medicine
DX: R07.9 Chest pain, unspecified (principal); D68.51 Activated protein C resistance; Z86.718 Personal history of other venous thrombosis and embolism; Z86.711 Personal history of pulmonary embolism; Z86.73 Personal history of transient ischemic attack (TIA), and cerebral infarction without residual deficits
CPT/HCPCS: 93970; 99285

== ENCOUNTER 2020-04-27 22:01 | Emergency (ER) | payer MEDICAID, SELFPAY ==
[2020-04-27 22:01] VITALS: BP 135/95; PULSE 91; RESP 14; TEMP 37.1; O2SAT 97; BMI 41.9
--- NOTE | 2020-04-27 22:21 | ED.VIS.GEN ---
History of Present Illness Chief Complaint: Anxiety Informant: Patient Narrative: 30-year-old female with past medical history of anxiety and depression presents with concern for vomiting and diarrhea. States is been present over the past 1 week. States her anxiety has been so bad she has had persistent vomiting. States she is not suicidal or homicidal. States that she recently moved in by herself and has been having a custody tyler with her has been increasing her anxiety. Denies any fever, chills, abdominal pain, urinary symptoms. Past Medical History - Allergies and Home Meds Allergies/Adverse Reactions: Allergies furosemide [From Lasix] Allergy (Verified 04/27/20 22:06) Hives Iodinated Contrast Media Allergy (Verified 04/27/20 22:06) Hives ondansetron [From Zofran] Allergy (Verified 04/27/20 22:06) Hives propranolol Allergy (Verified 04/27/20 22:06) Angioedema sumatriptan [From Imitrex] Allergy (Verified 04/27/20 22:06) Other CHEST PAIN HEART ATTACK SYMPTOMS ketorolac [From Toradol] Adverse Reaction (Verified 04/27/20 22:06) Hives prochlorperazine [From Compazine] Adverse Reaction (Verified 04/27/20 22:06) Other AGIATION, PT STATES NEEDS BENADRYL Primary Care Physician: Anuj Miles MD [Primary Care Provider] - Past Medical History: - - anxiety, depression Surgical History: cholecystectomy, - - , tubal ligation, left ovary removed, loop recorder implanted, Mediport implanted Smoking Status: Never smoker Alcohol: None Drugs: None - Family History Maternal Family History: Reports: Heart Disease, Stroke Paternal Family History: Reports: High Cholesterol, Stroke Review of Systems General: Denies: Chills, Fever, Sweats Eyes: Denies: Visual changes - bilaterally, Diplopia ENT: Denies: Rhinorrhea, Sore throat Cardiovascular: Denies: Chest pain, Palpitations Respiratory: Denies: Dyspnea, Cough, Dyspnea on exertion Gastrointestinal: Reports: Nausea, Vomiting, Diarrhea. Denies: Abdominal pain, Melena, Hematochezia Genitourinary: Denies: Dysuria, Hematuria, Frequency Musculoskeletal: Denies: Back pain, Extremity Pain Skin: Denies: Rash, Wounds Neurological: Denies: Headache, Weakness, Numbness Psych: Reports: Anxiety Physical Exam Vital Signs/Narrative: Vital Signs Temp Pulse Resp BP Pulse Ox 04/27/20 22:01 98.8 F 91 14 135/95 H 97 Inital Vital Signs reviewed: Yes General: Well nourished, Well developed, No Acute Distress Head: Normocephalic, Atraumatic Eyes: Perrl, EOMI ENT: Moist mucous membranes, No rhinorrhea Neck: Supple, Nontender Cardiovascular: Regular rate, Regular rhythm, No murmurs Respiratory: No distress, CTA bilaterally, Chest nontender Abdomen: Soft, Nontender, Nondistended, Normal bowel sounds Back: Nontender, Normal Inspection Extremities: Nontender, No edema Skin: Normal color, No rash Neurological: Alert, Oriented x3, Cranial nerves II-XII grossly intact, Normal Strength, Normal Sensation Psychological: Normal affect, Normal Mood Diagnostic/Tx/Re-eval Laboratory Data 04/27/20 04/27/20 04/27/20 22:30 23:02 23:02 WBC 5.4 RBC 4.31 Hgb 11.5 L Hct 34.9 L MCV 81.0 MCH 26.7 L MCHC 33.0 RDW Std Deviation 45.3 H RDW Coeff of Millie 15.4 H Plt Count 268 MPV 9.2 Immature Gran % (Auto) 0.400 Neut % (Auto) 55.4 Lymph % (Auto) 35.4 Sterling % (Auto) 6.2 Eos % (Auto) 2.2 Baso % (Auto) 0.4 Absolute Neuts (auto) 3.0 Absolute Lymphs (auto) 1.90 Nucleated RBC % 0 Sodium 142 Potassium 3.4 L Chloride 110 H Carbon Dioxide 22.0 Anion Gap 10 BUN 4 L Creatinine 0.54 L Estim Creat Clear Calc 117.04 Est GFR (MDRD) Af Amer 174 Est GFR (MDRD) Non-Af 144 BUN/Creatinine Ratio 7.4 L Glucose 129 H Calcium 9.3 Total Bilirubin 0.30 AST 14 L ALT 24 Alkaline Phosphatase 108 Total Protein 7.1 Albumin 3.2 Globulin 3.9 Albumin/Globulin Ratio 0.8 L Lipase 96 Urine Color Yellow Urine Clarity Clear Urine pH 6.0 Ur Specific [place] 1.025 Urine Protein 30 H Urine Glucose (UA) Normal Urine Ketones 5 H Urine Occult Blood 150 H Urine Nitrite Negative Urine Bilirubin Negative Urine Urobilinogen Normal Ur Leukocyte Esterase Negative Urine RBC 0 SEEN Urine WBC 0-5 SEEN Ur Squamous Epith Cells 0-5 SEEN Urine Bacteria 1+ Urine Mucus 4+ Urine Test Negative - Medical Decision Making Patient appears well and nontoxic. Given IM Phenergan which did reduce her nausea. Lab work not significantly altered. Patient will be given Phenergan for home and advised to take her Prozac and continue p.o. hydration. Patient again denies any suicidal or homicidal ideation. Will be discharged home in stable condition. Impression: 1. Anxiety 2. Vomiting 3. Diarrhea ED Disposition - Plan for ED Patient: Disposition: Home or Assisted Living Instructions: Understanding Anxiety Disorders, ED Nausea Vomiting Adult Prescriptions: proMETHazine tablet [Phenergan] 25 mg PO Q6H PRN PRN #10 tab PRN Reason: Nausea Prescription Printed Referrals: Anuj Miles MD [Primary Care Provider] - 2 Days
[2020-04-27 22:40] LABS: Red Blood Cells-Urine 0 SEEN /hpf (0-5)
[2020-04-27 22:47] LABS: Color, Urine Yellow (Yellow); Glucose, Dipstick Normal (Normal); Ketone-Dipstick 5 mg/dl (Negative); Leukocyte Esterase-Dipstick Negative /ul (Negative); Nitrite-Dipstick Negative (Negative); Occult Blood-Urine 150 /ul (Negative); Protein-Dipstick 30 mg/dl (Negative); Specific Gravity, Urine 1.025 (1.002-1.030); Urine Bilirubin Dipstick Negative (Negative); Urine Clarity Clear (Clear); Urine Urobilinogen Normal (Normal)
[2020-04-27 23:00] LABS: Bacteria 1+ /hpf (None Seen); Internal QC Validated? YES +Cl - CLEAR BKGD; Mucous, Urine 4+ /hpf (<or=2+); Pregnancy, Urine Negative Negative; Squamous Epithelial Cells - UA 0-5 SEEN /hpf (5-10); White Blood Cells 0-5 SEEN /hpf (0-5)
[2020-04-27] MEDS: proMETHazine 25 MG/ML Syringe 12.5 MG IM (23:10)
[2020-04-27 23:25] LABS: Basophil# 0.02 X10^3/uL; Basophil% 0.4 % (0-1); Eosinophil# 0.12 X10^3/uL; Eosinophils% 2.2 % (0-5); Hematocrit 34.9 % (37-47); Hemoglobin 11.5 g/dL (12.0-15.0); Lymphocyte % 35.4 % (19-41); Mean Corpuscular Hgb 26.7 pg (27.0-32.0); Mean Platelet Vol. 9.2 fl (6.2-12.0); Monocyte# 0.33 X10^3/uL; Monocyte% 6.2 % (0-10); NRBC Flagged by Analyzer 0 % (0-5); Neutrophil # 2.97 X10^3/uL (2.7-7.7); Neutrophil % 55.4 % (47-70); POSITIVE COUNT YES; Platelet Count 268 K/mm3 (150-450); RBC Distribution Width CV 15.4 % (11.6-14.6); RBC Distribution Width SD 45.3 fl (35.1-43.9); Red Blood Count 4.31 M/mm3 (4.2-5.4); White Blood Count 5.4 K/mm3 (4.4-11.0)
[2020-04-27 23:26] LABS: ALB/GLOB Ratio 0.8 RATIO (0.9-2.4); AST(SGOT) 14 U/L (15-37); Alanine Aminotransfer ALT/SGPT 24 U/L (13-56); Albumin, Serum 3.2 g/dL (3.2-5.0); Alkaline Phosphatase 108 U/L (45-117); Anion Gap 10 (5-15); BUN 4 mg/dL (7-18); BUN/Creat Ratio 7.4 RATIO (10-20); Calcium,Total 9.3 mg/dL (8.5-10.1); Chloride 110 mmol/L (98-107); Creatinine, Serum 0.54 mg/dL (0.55-1.02); EST Glomerular Filtration Rate 144 mL/min (>60); Est Glom Filt Rate - Afr Amer 174 mL/min (>60); Estimated Creatinine Clearance 117.04 ml/min; Globulin 3.9 g/dL (2.2-4.2); Glucose 129 mg/dL (74-106); Lipase 96 U/L (73-393); Potassium 3.4 mmol/L (3.5-5.1); Protein, Total 7.1 g/dL (6.4-8.2); Sodium Level 142 mmol/L (136-145)
[2020-04-27 23:27] LABS: Differential Indicated SCAN CRITERIA MET
[2020-04-28 00:06] LABS: Differential Comment SCANNED
[2020-04-28 00:08] LABS: Platelet Estimate ADEQUATE (ADEQ)
[2020-04-28 00:10] LABS: Platelet Morphology CLUMPED
== END 2020-04-28 00:16 | disposition home or self-care (01) ==
PROVIDERS: Emergency Provider Emergency Medicine; PCP Family Medicine
DX: F41.9 Anxiety disorder, unspecified (principal); R11.10 Vomiting, unspecified; R19.7 Diarrhea, unspecified; F32.9 Major depressive disorder, single episode, unspecified; Z79.899 Other long term (current) drug therapy
CPT/HCPCS: 36415; 80053; 81001; 81025; 83690; 85025; 96360; 96372; 99281; 99283; J7030; A4216

== ENCOUNTER 2020-05-04 12:28 | Emergency (ER) | payer MEDICAID, SELFPAY ==
[2020-05-04 12:29] VITALS: BP 160/100; PULSE 99; RESP 18; TEMP 36.9; O2SAT 98; BMI 42.3
--- NOTE | 2020-05-04 12:41 | EKG12_ITS ---
Test Reason : CP Blood Pressure : / mmHG Vent. Rate : 092 BPM Atrial Rate : 092 BPM P-R Int : 170 ms QRS Dur : 090 ms QT Int : 364 ms P-R-T Axes : 048 034 014 degrees QTc Int : 450 ms Normal sinus rhythm Possible Left atrial enlargement Borderline ECG Confirmed by TRINITY HOLLIS, RAFAEL ([id number]), commercial production editor ADRIANNA DOZIER ([id number]) on 05/09/2020 12:32:18 PM Referred By: FRANCESCO Confirmed By:RAFAEL PETERSEN MD
--- NOTE | 2020-05-04 13:49 | ED.DCSUM_ITS ---
- ER Visit Summary Date of Service: 05/04/20 Chief Complaint: Cough and subjective fever History of Present Illness: The patient is a 30 F history of clotting disorder and prior pulmonary emboli and history of type II diabetes. Patient works at [employer] had a cough and subjective fever and her employer sent in to be evaluated. She denies abdominal pain or dysuria. She denies shortness of breath. Nonproductive cough. Physical Examination: Young female no acute distress. Vital signs are stable and afebrile. She is in no distress. She does not look septic or toxic. H EENT exam normal. TMs normal bilaterally. Posterior pharynx moist and pink. No erythema or exudate. No trouble swallowing or breathing. Neck nontender no lymphadenopathy. No meningismus. Lungs clear to auscultation bilaterally. Equal symmetrical. No rales, rhonchi or wheezing. Heart regular rhythm no murmur. Abdomen soft nontender normal bowel sounds no peritoneal signs. Remedies moves all 4. Calves nontender without edema or cords. Back nontender. Skin unremarkable. Neurologically she is awake and alert with no focal motor deficits. Test Results: None send out Covid test. Clinically I do not think she needs any imaging. She is a normal pulse ox and lungs are clear. Emergency Department Course and Treatment: Patient treated as a viral URI. Will be quarantine until her Covid test comes back. Fluids and rest. Tylenol. [id number] throat lozenges as needed. Treatment Plan: Plenty of fluids and rest. Alternate Tylenol Motrin for any fever and body aches. [id number] throat lozenges. Quarantine until Covid test result. Disposition: Discharge Impression: Viral URI Rule out Covid This note was generated with [employer] dictation software. It may contain incorrect words, spelling, and punctuation that were not noted in review of the chart prior to signing ED Disposition - Plan for ED Patient: Referrals: Anuj Miles MD [Primary Care Provider] -
--- NOTE | 2020-05-04 13:51 | ED.DEP ---
ED Disposition - Plan for ED Patient: Disposition: Home or Assisted Living Instructions: ED Upper Resp Infec No Abx Tx Referrals: Anuj Miles MD [Primary Care Provider] - 1 Week if not improving Additional Instructions: COVID-19 test was sent to [facility] to be run. They will notify you in the next several days if positive. Plenty of fluids and rest. Alternate Tylenol Motrin for body aches and fever. Follow-up with your doctor if not improving. Return emergency department if you are feeling a lot worse. Off work until your Covid test returns and may return to work if negative.
[2020-05-04 14:13] VITALS: BP 129/66; PULSE 75; RESP 15; O2SAT 97
[2020-05-04 14:17] VITALS: O2SAT 97
== END 2020-05-04 14:18 | disposition home or self-care (01) ==
LOC: ED 14:08
PROVIDERS: Emergency Provider Emergency Medicine; PCP Family Medicine
DX: J06.9 Acute upper respiratory infection, unspecified (principal); E11.9 Type 2 diabetes mellitus without complications; Z86.711 Personal history of pulmonary embolism
CPT/HCPCS: 87635; 93005; 99282; U0003

== ENCOUNTER 2020-06-11 23:15 | Emergency (ER) | payer MEDICAID, SELFPAY ==
[2020-06-11 23:16] VITALS: BP 145/97; PULSE 105; RESP 14; TEMP 36.2; O2SAT 100; BMI 42.8
--- NOTE | 2020-06-11 23:34 | ED.VIS.GEN ---
History of Present Illness Chief Complaint: Numb/Ting Informant: Patient Onset: Today - 30 minutes Current Severity: Mild Maximum Severity: Mild Narrative: Patient reports rather abrupt onset of right frontal headache approximate 30 minutes prior to arrival. She states she also has some numbness in her right face and may be in her right arm. No weakness noted in the arm. She does report a history of TIA and was concerned so she came to the emergency room. She is currently on anticoagulant secondary to factor V Leiden and pulmonary emboli. - Past Medical History (1) Anxiety Status: Chronic (2) Factor V Leiden Status: Chronic (3) MDD (major depressive disorder) Status: Chronic (4) Migraines Status: Chronic (5) PTSD (post-traumatic stress disorder) Status: Chronic (6) Pulmonary emboli Status: Chronic (7) TIA (transient ischemic attack) Status: Chronic Past Medical History - Allergies and Home Meds Allergies/Adverse Reactions: Allergies furosemide [From Lasix] Allergy (Verified 06/11/20 23:17) Hives Iodinated Contrast Media Allergy (Verified 06/11/20 23:17) Hives ondansetron [From Zofran] Allergy (Verified 06/11/20 23:17) Hives propranolol Allergy (Verified 06/11/20 23:17) Angioedema sumatriptan [From Imitrex] Allergy (Verified 06/11/20 23:17) Other CHEST PAIN HEART ATTACK SYMPTOMS ketorolac [From Toradol] Adverse Reaction (Verified 06/11/20 23:17) NEEDS FOLLOW-UP CAN'T TAKE DUE TO OTHER MEDS prochlorperazine [From Compazine] Adverse Reaction (Verified 06/11/20 23:17) Other AGIATION, PT STATES NEEDS BENADRYL Primary Care Physician: Anuj Miles MD [Primary Care Provider] - Surgical History: cholecystectomy, - - , tubal ligation, left ovary removed, loop recorder implanted, Mediport implanted Smoking Status: Never smoker - Family History Maternal Family History: Reports: Heart Disease, Stroke Paternal Family History: Reports: High Cholesterol, Stroke Review of Systems General: Denies: Chills, Fever Eyes: Denies: Visual changes - bilaterally ENT: Denies: Bilateral ear pain Cardiovascular: Denies: Chest pain Respiratory: Denies: Dyspnea, Cough Gastrointestinal: Denies: Abdominal pain, Vomiting, Diarrhea Skin: Denies: Rash Neurological: Reports: Headache, Numbness Hematologic: Denies: Easy bruising, Easy bleeding Allergy: Denies: Uticaria Physical Exam Vital Signs/Narrative: Vital Signs Temp Pulse Resp BP Pulse Ox 06/11/20 23:16 97.1 F L 105 H 14 145/97 H 100 Inital Vital Signs reviewed: Yes General: Well nourished, Well developed Head: Normocephalic ENT: Moist mucous membranes Neck: Supple Cardiovascular: Regular rate, Regular rhythm Respiratory: No distress, CTA bilaterally Abdomen: Soft, Nontender Skin: Normal color Neurological: Alert, Oriented x3, - - NIH equals 1 for reported right-sided facial decrease sensation to light touch. Psychological: Normal affect Diagnostic/Tx/Re-eval Impressions Brain CT 06/12/20 00:38 IMPRESSION: Normal unenhanced CT scan of the brain. Electronically Signed: Sienna Solorio MD at 1:26 EST Tel , Service support , 06/12/20 00:38 CT Head [Brain/Head without Contrast] [CT] Stat - Medical Decision Making I initially ordered CTA that head and neck as patient tells me that she has never had these paresthesias of her face with her headaches before. She is an extremely difficult stick and nursing staff had a hard time getting a line. In the meantime I was able to review records and do note that she has been here multiple times with migraines as well as right-sided paresthesias of her face. Most recent episode of this was in February. In light of this and the fact the patient is taking a blood thinner, Xarelto, I do not feel she needs a CTA. CT noncontrast was obtained to ensure no bleed and this is normal. Patient was given p.o. ibuprofen, Benadryl, and Reglan for her migraine. Patient eloped from the emergency department prior to me going back to discuss her test results with her. ED Disposition - Plan for ED Patient: Disposition: Home or Assisted Living Diagnosis: Migraine Referrals: Anuj Miles MD [Primary Care Provider] -
--- NOTE | 2020-06-12 00:38 | CT_ITS ---
STUDY: CT BRAIN WITHOUT CONTRAST REASON FOR EXAM: Female, 30 years old. Headache, numbness LT FACE TONIGHT -- HX:TIA,MIGRAINES,FACTOR V LEIDEN,CAD,DIABETES,PTSD,DEPRESSION RADIATION DOSAGE (If Supplied By Facility): CTDIvol = ( 44.99 ) mGy, DLP = ( 745.49 ) mGycm TECHNIQUE: Transaxial CT imaging of the brain was performed without administration of intravenous contrast material. Individualized dose optimization techniques were used for this CT. COMPARISON: March 10, 2020 CT head FINDINGS: Normal soft tissue structures. Normal calvarium. Normal size ventricles and extra-axial spaces for the patient''s age. Normal white matter tracts of the cerebral hemispheres. Normal basal ganglia and thalami. Normal brainstem. Normal cerebellum. There is no intracranial hemorrhage. There are no findings of an acute ischemic infarction. Normal visualized paranasal sinuses. 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 CT/Brain/Head without Contrast IMPRESSION: Normal unenhanced CT scan of the brain. Electronically Signed: Sienna Solorio MD at 1:26 EST Tel , Service support ,
[2020-06-12] MEDS: Metoclopramide 10 MG Tablet PO (00:45)
[2020-06-12] MEDS: DiphenhydrAMINE 25 MG Capsule 50 MG PO (00:45)
[2020-06-12] MEDS: Ibuprofen 600 MG Tablet PO (00:45)
[2020-06-12 01:28] VITALS: RESP 13
== END 2020-06-12 02:00 | disposition home or self-care (01) ==
PROVIDERS: Emergency Provider Emergency Medicine; PCP Family Medicine
DX: G43.909 Migraine, unspecified, not intractable, without status migrainosus (principal); Z86.73 Personal history of transient ischemic attack (TIA), and cerebral infarction without residual deficits; D68.51 Activated protein C resistance; Z86.711 Personal history of pulmonary embolism; Z79.02 Long term (current) use of antithrombotics/antiplatelets
CPT/HCPCS: 70450; 99282; A4216

== ENCOUNTER 2020-07-13 00:26 | Emergency (ER) | payer MEDICAID, SELFPAY ==
[2020-07-13 00:28] VITALS: BP 135/88; PULSE 112; RESP 16; TEMP 36.6; O2SAT 98; BMI 40.8
[2020-07-13 00:36] VITALS: O2SAT 99
--- NOTE | 2020-07-13 00:48 | EKG12_ITS ---
Test Reason : SOB Blood Pressure : / mmHG Vent. Rate : 120 BPM Atrial Rate : 120 BPM P-R Int : 162 ms QRS Dur : 084 ms QT Int : 322 ms P-R-T Axes : 043 032 -01 degrees QTc Int : 455 ms Sinus tachycardia Nonspecific T wave abnormality Abnormal ECG Confirmed by ADRIANA HOLLIS, KAYLYNN ([id number]), social media editor ADRIANNA DOZIER ([id number]) on 07/18/2020 9:25:17 AM Referred By: SORAIDA Confirmed By:CODEY WRIGHT MD
--- NOTE | 2020-07-13 00:48 | ED.VIS.GEN ---
History of Present Illness Chief Complaint: Shortness of Breath Informant: Patient Narrative: Stated 2 hours ago she developed substernal chest tightness. Reports a history of PE in the remote past. She is not on anticoagulants at this time due to frequent syncopal episodes. She stated she was diagnosed with Covid about 10 days ago. She had symptoms starting 3 days prior. She still remains in quarantine. She denies any shortness of breath. Only Covid symptom currently is weakness. Patient wanted to make sure she did not have another blood clot. Denies any pain or swelling in her legs. She denies any significant shortness of breath. She stated she has had about 6 pulmonary embolisms in the last 3 years. Patient has a care plan for frequent pain related visits. No cardiac history including acute coronary syndrome or dissection. Patient has been using Tylenol and NSAIDs at home. - Past Medical History (1) Bilateral leg numbness Status: Acute (2) Cephalgia Status: Acute (3) Numbness and tingling of right side of face Status: Acute (4) Right facial numbness Status: Acute (5) Anemia Status: Chronic (6) Anxiety Status: Chronic (7) Factor V Leiden Status: Chronic (8) MDD (major depressive disorder) Status: Chronic (9) Migraines Status: Chronic (10) PTSD (post-traumatic stress disorder) Status: Chronic (11) Pulmonary emboli Status: Chronic (12) Pulmonary embolus, right Status: Chronic (13) TIA (transient ischemic attack) Status: Chronic Past Medical History - Allergies and Home Meds Allergies/Adverse Reactions: Allergies furosemide [From Lasix] Allergy (Verified 07/13/20 00:42) Hives Iodinated Contrast Media Allergy (Verified 07/13/20 00:42) Hives ondansetron [From Zofran] Allergy (Verified 07/13/20 00:42) Hives propranolol Allergy (Verified 07/13/20 00:42) Angioedema sumatriptan [From Imitrex] Allergy (Verified 07/13/20 00:42) Other CHEST PAIN HEART ATTACK SYMPTOMS prochlorperazine [From Compazine] Adverse Reaction (Verified 07/13/20 00:42) Other AGIATION, PT STATES NEEDS BENADRYL Primary Care Physician: NOT,DEFINED [NON-STAFF] - Prior records reviewed: Yes Past Medical History: - - See problem list Surgical History: cholecystectomy, - - , tubal ligation, left ovary removed, loop recorder implanted, Mediport implanted Lives: With Family Smoking Status: Never smoker Alcohol: None Drugs: None - Family History Maternal Family History: Reports: Heart Disease, Stroke Paternal Family History: Reports: High Cholesterol, Stroke Review of Systems General: Denies: Chills, Fever, Sweats Eyes: Denies: Visual changes - bilaterally, Diplopia ENT: Denies: Rhinorrhea, Sore throat Cardiovascular: Reports: Chest pain. Denies: Palpitations Respiratory: Denies: Dyspnea, Cough, Dyspnea on exertion Gastrointestinal: Denies: Abdominal pain, Nausea, Vomiting, Diarrhea, Melena, Hematochezia Genitourinary: Denies: Dysuria, Hematuria, Frequency Musculoskeletal: Denies: Back pain, Extremity Pain Skin: Denies: Rash, Wounds Neurological: Reports: Weakness. Denies: Headache, Numbness Physical Exam Vital Signs/Narrative: Vital Signs Temp Pulse Resp BP Pulse Ox 07/13/20 00:28 98 F 112 H 16 135/88 H 98 General: Well nourished, Well developed, No Acute Distress Head: Normocephalic, Atraumatic Eyes: Perrl, EOMI ENT: Moist mucous membranes, No rhinorrhea Neck: Supple, Nontender Cardiovascular: Regular rhythm, No murmurs, Tachycardia Respiratory: No distress, CTA bilaterally, Chest nontender Abdomen: Soft, Nontender, Nondistended, Normal bowel sounds Back: Nontender, Normal Inspection Extremities: Nontender, No edema Skin: Normal color, No rash Neurological: Alert, Oriented x3, Cranial nerves II-XII grossly intact, Normal Strength, Normal Sensation Psychological: Normal affect, Normal Mood Diagnostic/Tx/Re-eval - Medical Decision Making . Lab work obtained. EKG obtained. EKG shows sinus tachycardia rate of 120. No acute ischemia or arrhythmia. Patient's heart rate did come down into the low 100s 105 on reevaluation. Resting comfortably. Does not appear in pain. Patient was unsuccessful in obtaining an IV peripherally. Despite multiple attempts and multiple arms in multiple locations were unsuccessful. I offered her these medications intramuscular. Declined Toradol and Phenergan IM and only wants them IV. Lab work including CBC and BMP showed no major abnormalities. Slight hyperglycemia. Of a low suspicion for acute coronary syndrome or dissection. PE is on the differential given the fact she has had this in the past. She has been off her Xarelto. I offered her to stay in the hospital until we can have more attempts in the morning by the morning nursing staff and occluding the PICC team as well. She has had a power port placed in the past but it did get infected last spring and had to be removed. She has not had a new one placed. I do not think she needs an acute central line at this time. The patient does not want to wait to the morning. She does not appear in pain. I have a low suspicion for PE. I told her she could have a VQ scan and/or CAT scan of her chest upon waiting for a line in the morning. The patient is refusing this. She and I discussed options after this refusal. We decided to place her back on her Xarelto given her first dose here. She will be given a prescription for this and follow-up with her family doctor as an outpatient. She will return if she worsens. Again I have a low suspicion for PE. ED Disposition - Plan for ED Patient: Disposition: Home or Assisted Living Diagnosis: Chest pain Instructions: ED Chest Pain, Uncertain Cause Prescriptions: Rivaroxaban [Xarelto] 15 mg PO BID #42 tab Transmission Status: Pending to [facility] Referrals: Doctor,Your [STAFF PHYSICIAN] -
[2020-07-13 01:26] LABS: Absolute Lymphocyte Count 2.85 X10^3/uL (0.83-4.51); Absolute Neutrophil Count 5.1 X10^3/uL (2.0-7.7); Basophil# 0.02 X10^3/uL; Basophil% 0.2 % (0-1); Eosinophil# 0.06 X10^3/uL; Eosinophils% 0.7 % (0-5); Hematocrit 36.4 % (37-47); Lymphocyte # 2.85 X10^3/ul (4.0); Lymphocyte % 33.3 % (19-41); Mean Corpuscular Hgb 26.5 pg (27.0-32.0); Mean Corpuscular Volume 80.5 fL (81-99); Mean Platelet Vol. 8.7 fl (6.2-12.0); Monocyte# 0.54 X10^3/uL; Monocyte% 6.3 % (0-10); NRBC Flagged by Analyzer 0 % (0-5); Neutrophil # 5.06 X10^3/uL (2.7-7.7); Platelet Count 267 K/mm3 (150-450); RBC Distribution Width CV 13.4 % (11.6-14.6); RBC Distribution Width SD 38.7 fl (35.1-43.9); Red Blood Count 4.52 M/mm3 (4.2-5.4); White Blood Count 8.6 K/mm3 (4.4-11.0)
[2020-07-13 01:38] LABS: Anion Gap 7 (5-15); BUN 19 mg/dL (7-18); BUN/Creat Ratio 29.6 RATIO (10-20); Calcium,Total 8.8 mg/dL (8.5-10.1); Chloride 105 mmol/L (98-107); Creatinine, Serum 0.64 mg/dL (0.55-1.02); EST Glomerular Filtration Rate 117 mL/min (>60); Est Glom Filt Rate - Afr Amer 141 mL/min (>60); Estimated Creatinine Clearance 98.75 ml/min; Glucose 198 mg/dL (74-106); Potassium 4.1 mmol/L (3.5-5.1); Sodium Level 137 mmol/L (136-145)
--- NOTE | 2020-07-13 02:00 | ED.RN ---
unable to obtain iv access, doctor made aware at this time
[2020-07-13 02:41] VITALS: BP 132/93; PULSE 113; RESP 17; O2SAT 98
--- NOTE | 2020-07-13 02:45 | ED.RN ---
pt requesting a central line be placed. refused because he good injury vessel , infection. Pt upset that line is not being placed.
--- NOTE | 2020-07-13 02:48 | ED.RN ---
dr frazier into talk to pt and answer questions.
[2020-07-13 02:55] VITALS: BP 130/74; PULSE 100; RESP 17; O2SAT 98
[2020-07-13] MEDS: Rivaroxaban 15 MG Tablet PO (03:04)
== END 2020-07-13 03:00 | disposition home or self-care (01) ==
PROVIDERS: Emergency Provider Emergency Medicine
DX: R07.9 Chest pain, unspecified (principal); Z86.711 Personal history of pulmonary embolism
CPT/HCPCS: 80048; 85025; 93005; 99285; J7030; A4216

== ENCOUNTER 2020-08-06 11:06 | Emergency (ER) | payer MEDICAID, SELFPAY ==
[2020-07-20 16:37] VITALS: BMI 41.9
[2020-08-06] VITALS (12 sets, daily range): BP systolic 114–139; BP diastolic 70–97; PULSE 89–107; RESP 14–22; TEMP 37; O2SAT 95–100; BMI 42.5
--- NOTE | 2020-08-06 11:47 | ED.DCSUM_ITS ---
History of Present Illness Chief Complaint: Complaint Informant: Patient Onset: Days Context: Gradual Onset Timing: Continuous Narrative: Patient is a 30-year-old female with history of PTSD, anxiety and clotting disor penelope, on Pradaxa for the past 2 weeks, tenting with urinary retention. Patient states 4 days ago she fell off a stepstool and landed on her tailbone. No loss of consciousness or other injuries noted. She has been sore but did not think much of it. Since then she has developed difficulty urinating. She states initially it was just hard for her to start pain and had to press on her abdomen but since the middle of the night she is unable to urinate at all. She describes pressure in her lower abdomen and need to urinate. She is still complaining of low back pain that is in the midline. She denies any weakness of her legs but does feel like there is a tingling sensation in her thighs. Did have one episode of urinary retention after anesthetic 5 years ago but denies any other history of this. No other new medications besides the Pradaxa. No other complaints at this time. Past Medical History - Allergies and Home Meds Allergies/Adverse Reactions: Allergies furosemide [From Lasix] Allergy (Verified 08/06/20 11:08) Hives Iodinated Contrast Media Allergy (Verified 08/06/20 11:08) Hives ondansetron [From Zofran] Allergy (Verified 08/06/20 11:08) Hives propranolol Allergy (Verified 08/06/20 11:08) Angioedema sumatriptan [From Imitrex] Allergy (Verified 08/06/20 11:08) Other CHEST PAIN HEART ATTACK SYMPTOMS prochlorperazine [From Compazine] Adverse Reaction (Verified 08/06/20 11:08) Other AGIATION, PT STATES NEEDS BENADRYL Primary Care Physician: Luz Elena Parada MD [STAFF PHYSICIAN] - Ki Weldon MD [Primary Care Provider] - Past Medical History: - - DM, PTSD, Anxiety, IBS, Migrains Surgical History: cholecystectomy, - - , tubal ligation, left ovary removed, loop recorder implanted, Mediport implanted Smoking Status: Never smoker - Family History Maternal Family History: Reports: Heart Disease, Stroke Paternal Family History: Reports: High Cholesterol, Stroke Review of Systems General: Denies: Chills, Fever, Sweats Eyes: Denies: Visual changes - bilaterally, Diplopia ENT: Denies: Rhinorrhea, Sore throat Cardiovascular: Denies: Chest pain, Palpitations Respiratory: Denies: Dyspnea, Cough, Dyspnea on exertion Gastrointestinal: Denies: Abdominal pain, Nausea, Vomiting, Diarrhea, Constipation, Melena, Hematochezia Genitourinary: Reports: - - retention . Denies: Dysuria, Hematuria, Frequency Musculoskeletal: Reports: Back pain. Denies: Extremity Pain Skin: Denies: Rash, Wounds Neurological: Denies: Headache, Weakness, Numbness Physical Exam Vital Signs/Narrative: Vital Signs Temp Pulse Resp BP Pulse Ox 08/06/20 11:08 98.6 F 107 H 17 139/97 H 95 Inital Vital Signs reviewed: Yes General: Well nourished, Well developed, No Acute Distress Head: Normocephalic, Atraumatic Eyes: Perrl, EOMI ENT: Moist mucous membranes, No rhinorrhea Neck: Supple, Nontender Cardiovascular: Regular rate, Regular rhythm, No murmurs Respiratory: No distress, CTA bilaterally, Chest nontender Abdomen: Soft, Nontender, Nondistended, Normal bowel sounds. Negative for: Guarding, Rebound tenderness Rectal: - - Normal rectal tone, patient elicits mild paresthesias to perineum Back: Nontender, Normal Inspection Extremities: Nontender, No edema Skin: Normal color, No rash Neurological: Alert, Oriented x3, Cranial nerves II-XII grossly intact, Normal Strength, Normal Sensation, Normal Gait Psychological: Normal affect, Normal Mood Diagnostic/Tx/Re-eval Clinical Impression(s) from Imaging Studies Lumbar Spine MRI 08/06/20 11:48 IMPRESSION: Normal unenhanced MR examination of the lumbar spine. Electronically Signed: Frantz Kaur MD at 14:44 EST Tel , Service support , Laboratory Data 08/06/20 08/06/20 08/06/20 11:43 12:15 12:15 WBC 6.1 RBC 4.36 Hgb 11.8 L Hct 35.4 L MCV 81.2 MCH 27.1 MCHC 33.3 RDW Std Deviation 39.8 RDW Coeff of Millie 13.6 Plt Count 281 MPV 8.5 Immature Gran % (Auto) 0.300 Neut % (Auto) 59.7 Lymph % (Auto) 31.8 Harding % (Auto) 6.4 Eos % (Auto) 1.5 Baso % (Auto) 0.3 Absolute Neuts (auto) 3.7 Absolute Lymphs (auto) 1.95 Nucleated RBC % 0 PT 11.7 INR 0.9 APTT 21.2 L Sodium Potassium Chloride Carbon Dioxide Anion Gap BUN Creatinine Estim Creat Clear Calc Est GFR (MDRD) Af Amer Est GFR (MDRD) Non-Af BUN/Creatinine Ratio Glucose Calcium Urine Color Yellow Urine Clarity Clear Urine pH 6.0 Ur Specific [place] 1.015 Urine Protein Negative Urine Glucose (UA) 1000 H Urine Ketones Negative Urine Occult Blood Negative Urine Nitrite Negative Urine Bilirubin Negative Urine Urobilinogen Normal Ur Leukocyte Esterase Negative Urine RBC 0 SEEN Urine WBC 0 SEEN Ur Squamous Epith Cells 0-5 SEEN Urine Bacteria 0 SEEN Urine Mucus 0 SEEN Urine Test Negative 08/06/20 12:15 WBC RBC Hgb Hct MCV MCH MCHC RDW Std Deviation RDW Coeff of Millie Plt Count MPV Immature Gran % (Auto) Neut % (Auto) Lymph % (Auto) Hard[place] % (Auto) Eos % (Auto) Baso % (Auto) Absolute Neuts (auto) Absolute Lymphs (auto) Nucleated RBC % PT INR APTT Sodium 142 Potassium 2.9 L Chloride 115 H Carbon Dioxide 20.0 L Anion Gap 7 BUN 4 L Creatinine 0.33 L Estim Creat Clear Calc 191.52 Est GFR (MDRD) Af Amer 305 Est GFR (MDRD) Non-Af 252 BUN/Creatinine Ratio 12.2 Glucose 143 H Calcium 6.5 L* Urine Color Urine Clarity Urine pH Ur Specific [place] Urine Protein Urine Glucose (UA) Urine Ketones Urine Occult Blood Urine Nitrite Urine Bilirubin Urine Urobilinogen Ur Leukocyte Esterase Urine RBC Urine WBC Ur Squamous Epith Cells Urine Bacteria Urine Mucus Urine Test - Medical Decision Making Patient is a 30-year-old female well-known to our emergency room presenting with acute onset of urinary retention. Bladder scan performed shows greater than 500 mL of urine in the bladder. Patient attempts to urinate and is unable to void any urine. Straight catheterization is performed and 500 cc of urine was obtained. Patient does have relief of abdominal discomfort. Exam patient has some saddle paresthesias as well as midline tenderness over lower lumbar area. Given the fact that she is on Pradaxa and had a fall couple days ago my concern is that she might of developed hematoma around her spinal cord which could be causing a cauda equina syndrome. Because of this an emergent MRI is obtained. Patient does have significant claustrophobia and is given a total of 7.5 mg of IV Versed and 25 mg of fentanyl to tolerate the MRI. She was able to tolerate lumbar MRI but not a thoracic MRI. Lumbar MRI is normal. Patient is still able to urinate in the ER and is offered a Acevedo catheter however she refuses. She states she cannot work with that in and also refuses a work note stating that she has to work because she needs the money. Exact cause of her retention is not clear however she will be given urology for follow-up. I did discuss the case with urology on-call, , who recommends starting Flomax and to make sure the patient does not have any associated constipation. Did discuss taking MiraLAX with the patient but she refuses stating that she has irritable bowel syndrome and she does not feel constipated. Urine culture sent at the request of urology as well. Urinalysis is not consistent with infection. Patient is counseled on signs and symptoms requiring return to the emergency room. Patient verbalizes agreement and understand this plan. Patient discharged home in stable and improved condition. ED Disposition - Plan for ED Patient: Disposition: Home or Assisted Living Diagnosis: Acute urinary retention, Back pain Instructions: ED Back Pain (Acute or Chronic), ED Urinary Retention, Female Prescriptions: Tamsulosin HCl [Flomax] 0.4 mg PO DAILY #7 cap Transmission Status: Received by [id number] Referrals: Ki Weldon MD [Primary Care Provider] - Luz Elena Parada MD [STAFF PHYSICIAN] - Additional Instructions: If you are not able to urinate you will need to return immediately to the emerge ncy room. Please make sure you are not constipated as I can be causing your retention. Please follow-up with the urologist who referred to today.
--- NOTE | 2020-08-06 11:48 | MRI_ITS ---
STUDY: MRI LUMBAR SPINE WITHOUT CONTRAST REASON FOR EXAM: Female, 30 years old. urinary retention, concern for hematoma,back pain, bilat leg tingling TECHNIQUE: Standardized fat and water weighted pulse sequences were obtained in the sagittal and axial planes. COMPARISON: 09/04/2019 FINDINGS: T12-L1: Normal endplates. Normal disc height, hydration and morphology. Normal bilateral facet joints. Normal central canal and bilateral lateral recesses. Normal bilateral intervertebral neural foramina. Normal lumbar lordosis. There is no substantial scoliosis. Normal conus medullaris that terminates at the L1. L1-2: Normal endplates. Normal disc height, hydration and morphology. Normal bilateral facet joints. Normal central canal and bilateral lateral recesses. Normal bilateral intervertebral neural foramina. L2-3: Normal endplates. Normal disc height, hydration and morphology. Normal bilateral facet joints. Normal central canal and bilateral lateral recesses. Normal bilateral intervertebral neural foramina. L3-4: Normal endplates. Normal disc height, hydration and morphology. Normal bilateral facet joints. Normal central canal and bilateral lateral recesses. Normal bilateral intervertebral neural foramina. L4-5: Normal endplates. Normal disc height, hydration and morphology. Normal bilateral facet joints. Normal central canal and bilateral lateral recesses. Normal bilateral intervertebral neural foramina. L5-S1: Normal endplates. Normal disc height, hydration and morphology. Normal bilateral facet joints. Normal central canal and bilateral lateral recesses. Normal bilateral intervertebral neural foramina. Normal visualized sacral ala. Mild friction related edema in the posterior subcutaneous fat. MRI/Spine Lumbar (Routine) IMPRESSION: Normal unenhanced MR examination of the lumbar spine. Electronically Signed: Frantz Kaur MD at 14:44 EST Tel , Service support ,
[2020-08-06 11:49] LABS: Bacteria 0 SEEN /hpf (None Seen); Mucous, Urine 0 SEEN /hpf (<or=2+); Red Blood Cells-Urine 0 SEEN /hpf (0-5); White Blood Cells 0 SEEN /hpf (0-5)
[2020-08-06 11:58] LABS: Color, Urine Yellow (Yellow); Glucose, Dipstick 1000 mg/dl (Normal); Ketone-Dipstick Negative (Negative); Leukocyte Esterase-Dipstick Negative /ul (Negative); Nitrite-Dipstick Negative (Negative); Occult Blood-Urine Negative /ul (Negative); Protein-Dipstick Negative (Negative); Specific Gravity, Urine 1.015 (1.002-1.030); Urine Bilirubin Dipstick Negative (Negative); Urine Clarity Clear (Clear); Urine Urobilinogen Normal (Normal)
[2020-08-06 12:24] LABS: Internal QC Validated? YES +Cl - CLEAR BKGD; Pregnancy, Urine Negative Negative; Squamous Epithelial Cells - UA 0-5 SEEN /hpf (5-10)
[2020-08-06 12:25] LABS: Record Kit Lot#,Urine Preg 42077
[2020-08-06 12:34] LABS: Absolute Lymphocyte Count 1.95 X10^3/uL (0.83-4.51); Absolute Neutrophil Count 3.7 X10^3/uL (2.0-7.7); Basophil# 0.02 X10^3/uL; Basophil% 0.3 % (0-1); Eosinophil# 0.09 X10^3/uL; Eosinophils% 1.5 % (0-5); Hematocrit 35.4 % (37-47); Hemoglobin 11.8 g/dL (12.0-15.0); Lymphocyte # 1.95 X10^3/ul (4.0); Lymphocyte % 31.8 % (19-41); Mean Corp Hgb Conc 33.3 g/dL (32-36); Mean Corpuscular Hgb 27.1 pg (27.0-32.0); Mean Corpuscular Volume 81.2 fL (81-99); Mean Platelet Vol. 8.5 fl (6.2-12.0); Monocyte# 0.39 X10^3/uL; Monocyte% 6.4 % (0-10); NRBC Flagged by Analyzer 0 % (0-5); Neutrophil # 3.67 X10^3/uL (2.7-7.7); Neutrophil % 59.7 % (47-70); Platelet Count 281 K/mm3 (150-450); RBC Distribution Width CV 13.6 % (11.6-14.6); RBC Distribution Width SD 39.8 fl (35.1-43.9); Red Blood Count 4.36 M/mm3 (4.2-5.4); White Blood Count 6.1 K/mm3 (4.4-11.0)
[2020-08-06 12:40] LABS: International Normalized Ratio 0.9; Partial Thromboplast Time 21.2 Seconds (24.1-36.2); Prothrombin Time (Protime)PT. 11.7 SECONDS (11.7-14.9)
[2020-08-06 12:58] LABS: Anion Gap 7 (5-15); BUN 4 mg/dL (7-18); BUN/Creat Ratio 12.2 RATIO (10-20); Calcium,Total 6.5 mg/dL (8.5-10.1); Chloride 115 mmol/L (98-107); Creatinine, Serum 0.33 mg/dL (0.55-1.02); EST Glomerular Filtration Rate 252 mL/min (>60); Est Glom Filt Rate - Afr Amer 305 mL/min (>60); Estimated Creatinine Clearance 191.52 ml/min; Glucose 143 mg/dL (74-106); Potassium 2.9 mmol/L (3.5-5.1); Sodium Level 142 mmol/L (136-145)
[2020-08-06] MEDS: fentaNYL 100 MCG/2 ML Ampul 25 MCG IV (13:25)
[2020-08-06] MEDS: Midazolam 5 MG/ML Syringe IV (13:44)
[2020-08-06] MEDS: Midazolam 2 MG/2 ML Syringe 2.5 MG IV (14:06)
--- NOTE | 2020-08-06 14:46 | ED.RN ---
pt taken to MRI with RN. Pt given IV versed to help with tolerating MRI. Pt pushed call button in MRI at 1359. pt states she was not doing well and was feeling anxious. pt denied any pain and vitals remained WNL. This RN called Dr Carey and updated her. She then ordered more versed at 1406. pt tolerated versed and was able to continue with MRI. At 1421 pt felt anxious again and felt she couldn't go on. radio technician asked if pt could go on for 4 more minutes in order to finish lumbar portion of MRI. pt agreed and at [address] carey made aware and agreed that finishing MRI was not needed at this point. vitals remained stable and pt transported back to ED with RN.
[2020-08-06] MEDS: Acetaminophen 500 MG Tablet 1000 MG PO (16:20)
[2020-08-06] MEDS: proMETHazine 25 MG Tablet PO (16:20)
== END 2020-08-06 17:17 | disposition home or self-care (01) ==
PROVIDERS: Emergency Provider Emergency Medicine; PCP Family Medicine
DX: R33.9 Retention of urine, unspecified (principal); M54.5 Low back pain; F41.9 Anxiety disorder, unspecified; F43.10 Post-traumatic stress disorder, unspecified; E11.9 Type 2 diabetes mellitus without complications; Z79.899 Other long term (current) drug therapy; Z79.84 Long term (current) use of oral hypoglycemic drugs
CPT/HCPCS: 72148; 80048; 81001; 81025; 82330; 85025; 85610; 85730; 87086; 87088; 96374; 96375; 99152; 99153; 99284; A4216

== ENCOUNTER 2020-08-16 11:22 | Emergency (ER) | payer MEDICAID, SELFPAY ==
[2020-08-06 11:08] VITALS: BMI 42.5
[2020-08-16 11:24] VITALS: BP 140/84; PULSE 111; RESP 20; TEMP 35.3; O2SAT 97; BMI 41.8
--- NOTE | 2020-08-16 11:43 | ED.VIS.GEN ---
History of Present Illness Chief Complaint: Headache Informant: Patient Onset: Days - 3 days Context: Gradual Onset Current Severity: Moderate Maximum Severity: Moderate Narrative: Patient presents with 3-day history of migraine. Migraine was gradual in onset and worsened this morning. Pain is worse on the right than left. She was seen by her PCP yesterday and started on prednisone. She is also taking Tylenol, Motrin, and Maxalt at home. She is also on Topamax. Patient denies any fever, chills, or URI symptoms. She denies recent head injury. - Past Medical History (1) Anemia Status: Chronic (2) Anxiety Status: Chronic (3) Factor V Leiden Status: Chronic (4) MDD (major depressive disorder) Status: Chronic (5) Migraines Status: Chronic (6) PTSD (post-traumatic stress disorder) Status: Chronic (7) Pulmonary emboli Status: Chronic Past Medical History - Allergies and Home Meds Allergies/Adverse Reactions: Allergies furosemide [From Lasix] Allergy (Verified 08/16/20 11:24) Hives Iodinated Contrast Media Allergy (Verified 08/16/20 11:24) Hives ondansetron [From Zofran] Allergy (Verified 08/16/20 11:24) Hives propranolol Allergy (Verified 08/16/20 11:24) Angioedema sumatriptan [From Imitrex] Allergy (Verified 08/16/20 11:24) Other CHEST PAIN HEART ATTACK SYMPTOMS prochlorperazine [From Compazine] Adverse Reaction (Verified 08/16/20 11:24) Other AGIATION, PT STATES NEEDS BENADRYL Primary Care Physician: Ki Weldon MD [Primary Care Provider] - Prior records reviewed: Yes Surgical History: cholecystectomy, - - , tubal ligation, left ovary removed, loop recorder implanted, Mediport implanted Smoking Status: Never smoker - Family History Maternal Family History: Reports: Heart Disease, Stroke Paternal Family History: Reports: High Cholesterol, Stroke Review of Systems General: Denies: Chills, Fever Eyes: Denies: Visual changes - bilaterally ENT: Denies: Bilateral ear pain, Sore throat Cardiovascular: Denies: Chest pain Respiratory: Denies: Dyspnea, Cough Gastrointestinal: Reports: Nausea, Vomiting. Denies: Abdominal pain Genitourinary: Denies: Dysuria Musculoskeletal: Denies: Swelling, Extremity Pain Skin: Denies: Rash Neurological: Reports: Headache. Denies: Weakness, Parasthesia Hematologic: Denies: Easy bruising, Easy bleeding Allergy: Denies: Uticaria Physical Exam Vital Signs/Narrative: Vital Signs Temp Pulse Resp BP Pulse Ox 08/16/20 11:24 95.6 F L 111 H 20 H 140/84 H 97 Inital Vital Signs reviewed: Yes General: Well nourished, Well developed Head: Normocephalic ENT: Moist mucous membranes Neck: Supple Cardiovascular: Regular rate, Regular rhythm Respiratory: No distress, CTA bilaterally Abdomen: Soft, Nontender Skin: Normal color Neurological: Alert, Oriented x3, Normal Strength, Normal Sensation Psychological: Normal affect Diagnostic/Tx/Re-eval - Medical Decision Making Patient states that she had taken ibuprofen a couple hours prior to arrival. On arrival here she was given IV fluid along with Reglan, Benadryl, and Depakote. Patient had been ordered 10 mg of IV Reglan and 25 mg of IV Benadryl. She told the nurse that she would only take half of the Reglan unless she could have 50 mg of IV Benadryl. On repeat evaluation patient reported she had no improvement in her pain. She states that her neurologist previously has given her Norflex. I did offer her to give her Norflex along with ibuprofen, an additional 5 mg of Reglan, and 12.5 mg of Benadryl. Nursing staff advises me that she was not happy that the Norflex was ordered IM, she wanted it pushed IV. When the nurse stated that she was following doctor's orders and would give the medication IM patient stated that she did not believe there is anything further we could do for her and she wanted to leave the emergency room. ED Disposition - Plan for ED Patient: Disposition: Home or Assisted Living Diagnosis: Migraine Referrals: Ki Weldon MD [Primary Care Provider] -
[2020-08-16] MEDS: Metoclopramide 10 MG/2 ML Vial IV (12:16)
[2020-08-16] MEDS: 0.9% Normal Saline 1,000 ML 999 ML IV (12:16)
[2020-08-16] MEDS: DiphenhydrAMINE 50 MG/ML Syringe 25 MG IV (12:16)
--- NOTE | 2020-08-16 12:29 | ED.RN ---
PT DECLINED ENTIRE DOSE OF REGLAN, STATES I'LL ONLY TAKE HALF UNLESS YOU GIVE ME 50MG OF BENADRYL. REMINDED PT MEDS WOULD NOT BE EFFECTIVE IN LESSENING SYMPTOMS IF ONLY TAKING PARTIAL DOSE. PT I DON'T CARE, I DON'T WANT IT UNLESS I CAN HAVE MORE BENADRYL. UPDATED.
[2020-08-16] MEDS: Ibuprofen 200 MG Tablet 400 MG PO (13:57)
[2020-08-16] MEDS: DiphenhydrAMINE 50 MG/ML Syringe 12.5 MG IV (13:58)
[2020-08-16] MEDS: Metoclopramide 10 MG/2 ML Vial 5 MG IV (14:01)
--- NOTE | 2020-08-16 14:14 | ED.RN ---
PT DECLINES NORFLEX ORDERED INTRAMUSCULAR INJECTION, STATES I ONLY TAKE THAT GIVEN THROUGH THE IV. THIS RN STATED MEDICATION ORDERED IM INJECTION. PT DECLINES, STATES I'M JUST GOING TO LEAVE BECAUSE I DON'T THINK SHE () CAN DO ANYTHING MORE FOR ME. PT STATES SHE IS GOING HOME BY CAB. UPDATED.
--- NOTE | 2020-08-16 14:23 | ED.RN ---
THIS RN REMOVED IV PT STATED SHE WAS LEAVING, PT STATES SHE WILL NOT WAIT TO BE DISCHARGED, DOESN'T WANT TO WAIT AND SIGN AMA PAPERWORK.
== END 2020-08-16 14:25 | disposition home or self-care (01) ==
PROVIDERS: Emergency Provider Emergency Medicine; PCP Family Medicine
DX: G43.909 Migraine, unspecified, not intractable, without status migrainosus (principal); Z79.52 Long term (current) use of systemic steroids; Z79.899 Other long term (current) drug therapy
CPT/HCPCS: 96365; 96366; 96375; 96376; 99284; J7030; J7050; A4216

== ENCOUNTER 2020-08-22 04:26 | Emergency (ER) | payer MEDICAID, SELFPAY ==
[2020-08-22 04:27] VITALS: BP 160/99; PULSE 115; RESP 18; TEMP 35.9; O2SAT 97; BMI 43.6
--- NOTE | 2020-08-22 04:32 | EKG12_ITS ---
Test Reason : CHEST PAIN Blood Pressure : / mmHG Vent. Rate : 104 BPM Atrial Rate : 104 BPM P-R Int : 164 ms QRS Dur : 090 ms QT Int : 356 ms P-R-T Axes : 045 041 018 degrees QTc Int : 468 ms Sinus tachycardia Otherwise normal ECG Confirmed by CLEO HOLLIS, ROSE ([id number]), assistant film editor ADRIANNA DOZIER ([id number]) on 08/23/2020 8:27:33 AM Referred By: ABBY Confirmed By:ROSE GALLO MD
--- NOTE | 2020-08-22 04:32 | RAD_ITS ---
FLARE UP OF CHRONIC CHEST PAIN, RADIATES AROUND RIB AND TO BACKPATIENT UNABLE TO TAKE A DEEPER BREATH EXAMINATION/TECHNIQUE: XR Chest 2 Views: COMPARISON: March 21, 2020 FINDINGS: Limited inspiration LINES/DEVICES: Implanted cardiac device similar to prior study LUNGS: No consolidation, edema or effusion. No pneumothorax. MEDIASTINUM AND CARDIOVASCULAR STRUCTURES: Cardiac silhouette not enlarged. Central airways and mediastinal contour are unremarkable. BONES AND SOFT TISSUES: Unremarkable. RAD/Chest PA and Lateral IMPRESSION: No radiographic evidence of acute cardiopulmonary disease. at 0512 Reported and signed by: Sienna Burton DO Electronically Signed: Sienna Burton DO at 5:10 EST Tel , Service support ,
[2020-08-22] MEDS: Ketorolac 60 MG/2 ML Vial IM (04:38)
--- NOTE | 2020-08-22 04:43 | ED.VISSUMM ---
- ER Visit Summary Date of Service: 08/22/20 Chief Complaint: Chest pain History of Present Illness: The patient is a 30 F who presents with chest pain. She states she woke up with the pain 1 hour ago. It was gradual in onset. It sharp in the right lower chest and crushing in the middle. Breathing makes it worse. Nothing is better. She denies shortness of breath, cough or fever. She took aspirin and tramadol 1 hour ago without relief. She is on Pradaxa for history of PE. She states she has been having a migraine this week as well. Patient has been seen here many times for chest pain. Last fall she was admitted to [facility] where they did a CT of the chest and it showed possible subsegmental PE versus artifact at that time. Physical Examination: Vital signs reviewed. HEENT exam unremarkable. Heart is tachycardic and regular rhythm without murmurs. Lungs are clear to auscultation. There is no chest tenderness. Abdomen is soft and nontender. Extremities reveal no edema. Peripheral pulses are equal. Skin exam normal. Neurologic exam normal. Test Results: EKG is sinus rhythm with rate of 104. No ST changes noted. Chest x-ray is unremarkable as well. Emergency Department Course and Treatment: The patient's pain only started 1 hour prior to arrival. She has been compliant with her Pradaxa. She has no shortness of breath so I doubt that this is a pulmonary embolism. I doubt that this is an abdominal pathology as she has no abdominal pain upon palpation. The patient was given Toradol. Patient will be discharged to take her home medications and she will call her PCP later this morning for follow-up. Treatment Plan: [] Disposition: Discharge Impression: Chest pain This note was generated with [employer] software. It may contain incorrect words, spelling, and punctuation that were not noted in review of the chart prior to signing ED Disposition - Plan for ED Patient: Disposition: Home or Assisted Living Instructions: ED Chest Pain, Noncardiac Referrals: Ki Weldon MD [Primary Care Provider] -
[2020-08-22 05:22] VITALS: BP 154/60; PULSE 79; RESP 18; O2SAT 96
== END 2020-08-22 05:22 | disposition home or self-care (01) ==
PROVIDERS: Emergency Provider Emergency Medicine; PCP Family Medicine
DX: R07.9 Chest pain, unspecified (principal); Z86.711 Personal history of pulmonary embolism; Z79.02 Long term (current) use of antithrombotics/antiplatelets
CPT/HCPCS: 71046; 93005; 96372; 99285

== ENCOUNTER 2020-08-27 05:42 | Emergency (ER) | payer MEDICAID, SELFPAY ==
[2020-08-27 05:43] VITALS: BP 157/97; PULSE 97; RESP 16; TEMP 36.4; O2SAT 99; BMI 44.3
--- NOTE | 2020-08-27 05:53 | CT_ITS ---
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 ADDITIONAL HISTORY: None provided. COMPARISON: 06/12/2020 EXAMINATION/TECHNIQUE: CT Head or Brain W/O Contrast Injection. Axial, coronal and sagittal images. Number of images including paperwork: 239. A radiation dose optimization technique was used for this scan. FINDINGS: BRAIN: No acute hemorrhage or mass. No definite acute infarct; MRI more sensitive. VENTRICULAR SYSTEM: No hydrocephalus. PARANASAL SINUSES AND MASTOIDS: No air-fluid level in the imaged extent. ORBITS: Unremarkable imaged extent. SKELETON AND SOFT TISSUES: Calvarium intact. ASPECTS score: Not applicable. CT/Brain/Head without Contrast IMPRESSION: No acute intracranial abnormality. Individualized dose optimization techniques were used for this CT. at 0640 Reported and signed by: Nikki Du MD Electronically Signed: Nikki Du MD at 6:40 EST Tel , Service support ,
--- NOTE | 2020-08-27 05:58 | ED.DCSUM_ITS ---
History of Present Illness Chief Complaint: Headache Informant: Patient Narrative: 30-year-old female presenting with headache which is in the front of her head. She states she has tingling in her face. She has not had any facial droop or loss of use of her extremities. Patient states that sometimes she does get tingling in her face with her migraines. Patient has a stable gait. She does not have dizziness. Patient states she has a history of factor V Leiden and has been having difficulty taking her Pradaxa this week due to nausea. She states that she gets nauseous like this due to stress at home. She has Phenergan at home but she states she cannot keep it down all the time. - Past Medical History (1) Anemia Status: Chronic (2) Anxiety Status: Chronic (3) Factor V Leiden Status: Chronic (4) MDD (major depressive disorder) Status: Chronic Past Medical History - Allergies and Home Meds Allergies/Adverse Reactions: Allergies furosemide [From Lasix] Allergy (Verified 08/27/20 05:44) Hives Iodinated Contrast Media Allergy (Verified 08/27/20 05:44) Hives ondansetron [From Zofran] Allergy (Verified 08/27/20 05:44) Hives propranolol Allergy (Verified 08/27/20 05:44) Angioedema sumatriptan [From Imitrex] Allergy (Verified 08/27/20 05:44) Other CHEST PAIN HEART ATTACK SYMPTOMS prochlorperazine [From Compazine] Adverse Reaction (Verified 08/27/20 05:44) Other AGIATION, PT STATES NEEDS BENADRYL Primary Care Physician: Ki Weldon MD [Primary Care Provider] - Past Medical History: - - Reviewed in problem list Surgical History: cholecystectomy, - - , tubal ligation, left ovary removed, loop recorder implanted, Mediport implanted Smoking Status: Never smoker - Family History Maternal Family History: Reports: Heart Disease, Stroke Paternal Family History: Reports: High Cholesterol, Stroke Review of Systems General: Denies: Chills, Fever, Sweats Eyes: Denies: Visual changes - bilaterally, Diplopia ENT: Denies: Rhinorrhea, Sore throat Cardiovascular: Denies: Chest pain, Palpitations Respiratory: Denies: Dyspnea, Cough, Dyspnea on exertion Gastrointestinal: Reports: Nausea. Denies: Abdominal pain Genitourinary: Denies: Dysuria, Hematuria Musculoskeletal: Denies: Back pain, Extremity Pain Skin: Denies: Rash, Wounds Neurological: Reports: Headache, Parasthesia Psych: Denies: Depression, Anxiety Endocrine: Denies: Polyuria, Polydipsia Physical Exam Vital Signs/Narrative: Vital Signs Temp Pulse Resp BP Pulse Ox 08/27/20 05:43 97.6 F L 97 16 157/97 H 99 Inital Vital Signs reviewed: Yes General: Obese, No Acute Distress Eyes: Perrl, EOMI ENT: Moist mucous membranes, No rhinorrhea Cardiovascular: Regular rate, Regular rhythm Respiratory: No distress, CTA bilaterally Neurological: Alert, Oriented x3, Cranial nerves II-XII grossly intact, - Psychological: Normal affect, Normal Mood Diagnostic/Tx/Re-eval Clinical Impression(s) from Imaging Studies Brain CT 08/27/20 05:53 IMPRESSION: No acute intracranial abnormality. Individualized dose optimization techniques were used for this CT. at 0640 Reported and signed by: Nikki Du MD Electronically Signed: Nikki Du MD at 6:40 EST Tel , Service support , - Medical Decision Making 30-year-old female presenting with headache and paresthesias in the face. She states that she does get these of times with migraines. It is documented in the charting that she gets this with her migraines. She was given IM Reglan, Benadr yl. Patient was given IM Toradol without relief. She stated that she was not getting relief. We will attempt to establish an IV and give her Depakote IV. Patient will be signed out to incoming ED physician for follow-up and disposition. Impression: 1. Headache 2. Facial paresthesia ED Disposition - Plan for ED Patient: Referrals: Ki Weldon MD [Primary Care Provider] -
[2020-08-27] MEDS: DiphenhydrAMINE 50 MG/ML Syringe 25 MG IM (06:07)
[2020-08-27] MEDS: Metoclopramide 10 MG/2 ML Vial IM (06:07)
[2020-08-27] MEDS: Ketorolac 15 MG/ML Vial IM (07:03)
--- NOTE | 2020-08-27 08:05 | ED.DCSUM_ITS ---
- ER Visit Summary Date of Service: 08/27/20 Chief Complaint: [] History of Present Illness: The patient is a 30 F [] Physical Examination: [] Test Results: [] Emergency Department Course and Treatment: [] Treatment Plan: [] Disposition: [] Impression: [] This note was generated with [employer] game platform dictation software. It may contain incorrect words, spelling, and punctuation that were not noted in review of the chart prior to signing ED Disposition - Plan for ED Patient: Disposition: Home or Assisted Living Instructions: ED Headache Unspecified Referrals: Ki Weldon MD [Primary Care Provider] -
== END 2020-08-27 08:12 | disposition home or self-care (01) ==
PROVIDERS: Emergency Provider Student in an Organized Health Care Education/Training Program; PCP Family Medicine
DX: R20.2 Paresthesia of skin (principal); R51.9 Headache, unspecified; D68.51 Activated protein C resistance; E66.9 Obesity, unspecified; Z79.02 Long term (current) use of antithrombotics/antiplatelets
CPT/HCPCS: 70450; 96372; 99285; A4216

== ENCOUNTER 2020-08-31 17:19 | Emergency (ER) | payer MEDICAID, SELFPAY ==
--- NOTE | 2020-08-31 17:21 | ED.RN ---
pt refusing to get EKG or change into a gown until she knows who the physician is as she states there is a doctor here that i don't want to treat me and if that is the case, i am leaving RN explained we would wait for ekg.
[2020-08-31 17:22] VITALS: BP 131/91; PULSE 111; RESP 18; TEMP 37.1; O2SAT 95; BMI 45.9
--- NOTE | 2020-08-31 18:35 | CT_ITS ---
STUDY: CTA CHEST REASON FOR EXAM: Female, 30 years old. RIGHT DVT, CP RADIATING TO RIGHT SIDE, HX FACTOR 5 LEIDEN, LOOP RECORDER, DVT''S RADIATION DOSAGE (If Supplied By Facility): CTDIvol = ( 22.16 ) mGy, DLP = ( 431.54 ) mGycm TECHNIQUE: The examination was performed with the intravenous administration of IV 100mL Isovue-370. Post-processing of the angiographic images was performed, with multiplanar reformation and 3D reconstruction. Individualized dose optimization techniques were used for this CT. COMPARISON: 11/14/19. FINDINGS: Normal enhancement of the main pulmonary artery and right and left pulmonary arteries. Normal enhancement of the bilateral peripheral pulmonary arteries. There is no demonstrated pulmonary embolism. Normal thoracic aorta and visualized great vessels. There is no demonstrated aortic dissection. Normal heart and pericardium. Normal mediastinum. Normal hilar regions. Normal visualized trachea and bronchi. The lungs are well expanded. Ill-defined diffuse groundglass opacities may be consistent with viral pneumonia in the appropriate clinical setting. Normal pleura. Normal chest wall structures. Normal osseous structures. No acute process within the visualized upper abdomen. Hepatic steatosis. CT/CTA Chest W/WO Contrast IMPRESSION: Ill-defined diffuse groundglass opacities may be consistent with viral pneumonia in the appropriate clinical setting. No demonstrated pulmonary embolism or arterial dissection. Electronically Signed: Kenneth Almazan MD at 21:07 EST Tel , Service support ,
--- NOTE | 2020-08-31 18:35 | EKG12_ITS ---
Test Reason : PAIN Blood Pressure : / mmHG Vent. Rate : 107 BPM Atrial Rate : 107 BPM P-R Int : 170 ms QRS Dur : 084 ms QT Int : 352 ms P-R-T Axes : 031 011 013 degrees QTc Int : 469 ms Sinus tachycardia Minimal voltage criteria for LVH, may be normal variant Borderline ECG Confirmed by CLEO HOLLIS, ROSE ([id number]), news videotape editor ADRIANNA DOZIER ([id number]) on 09/05/2020 10:45:01 AM Referred By: DEBRA Confirmed By:ROSE GALLO MD
[2020-08-31 19:38] VITALS: PULSE 109; RESP 19; O2SAT 97
[2020-08-31] MEDS: Ketorolac 15 MG/ML Vial IV (19:38)
[2020-08-31] MEDS: Metoclopramide 10 MG/2 ML Vial IV (19:39)
[2020-08-31] MEDS: DiphenhydrAMINE 50 MG/ML Syringe 75 MG IV (19:39)
[2020-08-31 19:42] LABS: Absolute Lymphocyte Count 1.97 X10^3/uL (0.83-4.51); Absolute Neutrophil Count 3.3 X10^3/uL (2.0-7.7); Basophil# 0.02 X10^3/uL; Basophil% 0.4 % (0-1); Eosinophil# 0.11 X10^3/uL; Eosinophils% 1.9 % (0-5); Hematocrit 33.6 % (37-47); Hemoglobin 11.5 g/dL (12.0-15.0); Lymphocyte # 1.97 X10^3/ul (4.0); Lymphocyte % 34.6 % (19-41); Mean Corp Hgb Conc 34.2 g/dL (32-36); Mean Corpuscular Hgb 27.7 pg (27.0-32.0); Mean Platelet Vol. 8.5 fl (6.2-12.0); Monocyte# 0.24 X10^3/uL; Monocyte% 4.2 % (0-10); NRBC Flagged by Analyzer 0 % (0-5); Neutrophil # 3.32 X10^3/uL (2.7-7.7); Neutrophil % 58.4 % (47-70); Platelet Count 304 K/mm3 (150-450); RBC Distribution Width CV 13.7 % (11.6-14.6); Red Blood Count 4.15 M/mm3 (4.2-5.4); White Blood Count 5.7 K/mm3 (4.4-11.0)
[2020-08-31 19:52] LABS: International Normalized Ratio 0.9; Partial Thromboplast Time 27.2 Seconds (24.1-36.2); Prothrombin Time (Protime)PT. 11.7 SECONDS (11.7-14.9)
[2020-08-31 19:55] LABS: D-Dimer Quantitative (DVT/PE) 0.43 FEU/ug/m (0.27-0.49)
[2020-08-31 20:04] LABS: Internal QC Validated? YES +Cl - CLEAR BKGD; Pregnancy, Serum, hCG Quali. NEGATIVE Negative
[2020-08-31 20:16] LABS: Anion Gap 15 (5-15); BUN 9 mg/dL (7-18); Calcium,Total 8.6 mg/dL (8.5-10.1); Chloride 103 mmol/L (98-107); Creatinine, Serum 0.56 mg/dL (0.55-1.02); EST Glomerular Filtration Rate 136 mL/min (>60); Est Glom Filt Rate - Afr Amer 165 mL/min (>60); Estimated Creatinine Clearance 112.86 ml/min; Glucose 234 mg/dL (74-106); Potassium 4.3 mmol/L (3.5-5.1); Sodium Level 135 mmol/L (136-145)
[2020-08-31] MEDS: MethylPREDNISolone 125 MG/2 ML Vial IV (20:50)
[2020-08-31] MEDS: DiphenhydrAMINE 50 MG/ML Syringe 25 MG IV (20:51)
[2020-08-31 20:53] VITALS: BP 122/73; PULSE 109; RESP 18; O2SAT 97; O2SAT 98
--- NOTE | 2020-08-31 20:59 | ED.DCSUM_ITS ---
- ER Visit Summary Date of Service: 08/31/20 Chief Complaint: Chest pain History of Present Illness: The patient is a [address] Obinna Rosa. She has a history of factor V Leiden. States that she has a right leg DVT that was diagnosed 1 month ago. She has chest pain that began 3 days ago. It is a continuous crushing, sharp pain that is 10 on 10 at worst 9-10 currently. Is worsened by breathing and laying flat. Is relieved by sitting up. Reports has been nauseated and vomiting off and on for the past week due to a migraine headache. States that she has had a hard time keeping her Pradaxa down. Patient reports that she has a headache that 6 out of 10 in severity. It is throbbing and diffuse. Is similar to her prior headaches. Physical Examination: Vitals: Stable. Afebrile. General: Well-nourished and well-developed. Head: Normocephalic atraumatic. Neck: Supple, no lymphadenopathy. No JVD. Nontender. Cardiovascular: Regular rate and rhythm. No murmurs. Respiratory: No respiratory distress. Clear to auscultation bilaterally. Abdominal: Soft, nontender, nondistended, normal bowel sounds. No guarding, rebound, or peritoneal signs. Back: Nontender. Extremities: Mild tenderness palpation to her calves bilaterally, no edema. Skin: Normal color, no rash. Neurologic: Alert and oriented ?3. Cranial nerves II through XII are intact. Normal strength and sensation. Psych: Normal affect. Test Results: EKG is sinus tach at [address] changes. Is unchanged from June 2020. Troponin is negative with 3 days of constant pain. D-dimer is negative. test is negative. INR 0.9. PTT is 27.2. Chem-7 shows sodium 135, CO2 of 17, glucose 234. CBC shows an H&H 11.5 and 33.6. Bilateral lower extremity Dopplers are negative. COVID-19 is negative. Clinical Impression(s) from Imaging Studies Chest CTA 08/31/20 18:35 IMPRESSION: Ill-defined diffuse groundglass opacities may be consistent with viral pneumonia in the appropriate clinical setting. No demonstrated pulmonary embolism or arterial dissection. Electronically Signed: Kenneth Almazan MD at 21:07 EST Tel , Service support , Venous Duplex 08/31/20 21:38 IMPRESSION: Normal venous Doppler ultrasound of the bilateral lower extremities. Electronically Signed: Allan Suazo MD at 22:28 EST , Service support , Emergency Department Course and Treatment: Patient was given Benadryl, Reglan, Toradol IV. She was given Solu-Medrol IV for the CT of the chest that she is allergic to contrast dye. Her pulse ox has been stable here. Treatment Plan: This time I do not have an explanation for the patient's chest pain. She does not have a PE or DVT. She will be discharged with Phenergan and Reglan. Instructed continue her Pradaxa and follow-up with her primary care physician for further evaluation and treatment. Return to the emergency department for any worsening symptoms. Disposition: To home in improved and stable condition. Impression: 1. Atypical chest pain. 2. Groundglass opacities on CT chest. 3. ED care plan. This note was generated with [employer] dictation software. It may contain incorrect words, spelling, and punctuation that were not noted in review of the chart prior to signing ED Disposition - Plan for ED Patient: Disposition: Home or Assisted Living Instructions: ED Chest Pain, Uncertain Cause Prescriptions: proMETHazine tablet [Phenergan] 25 mg PO Q6H PRN PRN #10 tab PRN Reason: Nausea Prescription Printed Metoclopramide [Reglan] 10 mg PO 4X/DAY PRN #20 tab PRN Reason: Nausea Prescription Printed Referrals: Ki Weldon MD [Primary Care Provider] - 3-5 Days
[2020-08-31] MEDS: Famotidine 200 MG/20 ML MDV 20 MG in 0.9% Normal Saline (Pres. free 8 ML 300 MG IV (21:18)
--- NOTE | 2020-08-31 21:38 | US_ITS ---
STUDY: VENOUS DOPPLER ULTRASOUND - BILATERAL LOWER EXTREMITIES REASON FOR EXAM: Female, 30 years old. LT LEG PAIN-ENTIRE LEG TECHNIQUE: Ultrasound evaluation of the deep vein system to include royal-scale imaging and compression was performed. Royal-scale imaging and Doppler sonographic evaluation, including duplex spectral analysis and qualitative color flow sonography, was performed. COMPARISON: None. FINDINGS: RIGHT LEG Common Femoral Vein: Normal compression, spontaneity and augmentation. Normal color Doppler. Common Femoral Vein/Greater Saphenous Junction: Normal compression, spontaneity and augmentation. Normal color Doppler. Deep Femoral Vein: Normal compression, spontaneity and augmentation. Normal color Doppler. Femoral Proximal: Normal compression, spontaneity and augmentation. Normal color Doppler. Femoral Middle: Normal compression, spontaneity and augmentation. Normal color Doppler. Femoral Distal: Normal compression, spontaneity and augmentation. Normal color Doppler. Popliteal Vein: Normal compression, spontaneity and augmentation. Normal color Doppler. Posterior Tibial Vein: Normal compression, spontaneity and augmentation. Normal color Doppler. Peroneal Vein: Normal compression, spontaneity and augmentation. Normal color Doppler. LEFT LEG Common Femoral Vein: Normal compression, spontaneity and augmentation. Normal color Doppler. Common Femoral Vein/Greater Saphenous Junction: Normal compression, spontaneity and augmentation. Normal color Doppler. Deep Femoral Vein: Normal compression, spontaneity and augmentation. Normal color Doppler. Femoral Proximal: Normal compression, spontaneity and augmentation. Normal color Doppler. Femoral Middle: Normal compression, spontaneity and augmentation. Normal color Doppler. Femoral Distal: Normal compression, spontaneity and augmentation. Normal color Doppler. Popliteal Vein: Normal compression, spontaneity and augmentation. Normal color Doppler. Posterior Tibial Vein: Normal compression, spontaneity and augmentation. Normal color Doppler. Peroneal Vein: Normal compression, spontaneity and augmentation. Normal color Doppler. US/Venous Duplex Imag/José Extrem IMPRESSION: Normal venous Doppler ultrasound of the bilateral lower extremities. Electronically Signed: Allan Suazo MD at 22:28 EST , Service support ,
[2020-08-31 22:24] VITALS: PULSE 104; RESP 18; O2SAT 98
== END 2020-08-31 22:27 | disposition home or self-care (01) ==
LOC: ED 18:22
PROVIDERS: Emergency Provider Emergency Medicine; PCP Family Medicine
DX: R07.89 Other chest pain (principal); R91.8 Other nonspecific abnormal finding of lung field; D68.51 Activated protein C resistance; E11.9 Type 2 diabetes mellitus without complications; Z86.718 Personal history of other venous thrombosis and embolism
CPT/HCPCS: 71275; 80048; 84484; 84703; 85025; 85379; 85610; 85730; 87426; 93005; 93970; 96374; 96375; 96376; 99285; J7040; Q9967; A4216; J3490

== ENCOUNTER 2020-09-18 00:39 | Emergency (ER) | payer MEDICAID, SELFPAY ==
[2020-09-18] VITALS (9 sets, daily range): BP systolic 119–138; BP diastolic 72–88; PULSE 99–109; RESP 15–18; TEMP 36.5–36.7; O2SAT 94–98; BMI 46.3
--- NOTE | 2020-09-18 00:53 | CT_ITS ---
STUDY: CT HEAD STROKE PROTOCOL W/O CONTRAST INJECTION REASON FOR EXAM: Female, 30 years old. Neuro deficit, acute, stroke suspected RADIATION DOSAGE (If Supplied By Facility): CTDIvol = ( ) mGy, DLP = ( ) mGycm TECHNIQUE: Transaxial CT imaging of the brain was performed without administration of intravenous contrast material. Individualized dose optimization techniques were used for this CT. COMPARISON: CT head from 08/27/2020 FINDINGS: Normal soft tissue structures. Normal calvarium. Normal size ventricles and extra-axial spaces for the patient''s age. Normal white matter tracts of the cerebral hemispheres. Normal basal ganglia and thalami. Normal brainstem. Normal cerebellum. There is no intracranial hemorrhage. There are no findings of an acute ischemic infarction. Normal visualized paranasal sinuses. ASPECT score: 10 CT/STROKE Brain/Head without Cont IMPRESSION: Negative unenhanced CT scan of the brain. No interval change. N.B. : The above information has been verbally conveyed by Erich Pereyra MD to Emir Duval MD, on 09/18/2020 01:32:39 (ET). Electronically Signed: Erich Pereyra MD at 1:33 EST Tel , Service support ,
--- NOTE | 2020-09-18 00:53 | EKG12_ITS ---
Test Reason : STROKE Blood Pressure : / mmHG Vent. Rate : 106 BPM Atrial Rate : 106 BPM P-R Int : 168 ms QRS Dur : 092 ms QT Int : 344 ms P-R-T Axes : 038 022 023 degrees QTc Int : 456 ms Sinus tachycardia Otherwise normal ECG Confirmed by CLEO HOLLIS, ROSE ([id number]), industrial editor ADRIANNA DOZIER ([id number]) on 09/20/2020 12:27:02 PM Referred By: MAGGI Confirmed By:ROSE GALLO MD
--- NOTE | 2020-09-18 00:56 | ED.DCSUM_ITS ---
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 Negative for: Vomiting, Chest Pain Narrative: Patient has history of factor V Leiden, also had a right lower extremity DVT diagnosed while on Xarelto so she was recently switched to Lovenox which she currently is taking. She states she went to bed fine and woke up in the middle of the night just prior to arrival with trouble with her vision, droopy right eyelid, and feeling vertiginous. She has had some vertigo before but not with these other symptoms. She denies any recent URI or ear pain, tinnitus, or ear discharge. She states she lightly bumped her head on a wall 2 days ago but did not have it checked out because she did not have any signs of trauma from it, headache, neurologic symptoms, or loss of consciousness/nausea/vomiting. She has a history of pulmonary emboli, but she had a recent CTA showing no pulmonary embolus. Also has a history of TIAs. Additionally, she started taking Suboxone 1 week ago. She has been compliant with it, her last dose was this morning. Prior similar symptoms: No Recent Illness/Hospitalization: No - Past Medical History (1) Anemia Status: Chronic (2) Anxiety Status: Chronic (3) Factor V Leiden Status: Chronic (4) MDD (major depressive disorder) Status: Chronic (5) Migraines Status: Chronic (6) PTSD (post-traumatic stress disorder) Status: Chronic (7) Pulmonary emboli Status: Chronic (8) TIA (transient ischemic attack) Status: Chronic Past Medical History - Allergies and Home Meds Allergies/Adverse Reactions: Allergies furosemide [From Lasix] Allergy (Verified 09/18/20 00:43) Hives Iodinated Contrast Media Allergy (Verified 09/18/20 00:43) Hives ondansetron [From Zofran] Allergy (Verified 09/18/20 00:43) Hives propranolol Allergy (Verified 09/18/20 00:43) Angioedema sumatriptan [From Imitrex] Allergy (Verified 09/18/20 00:43) Other CHEST PAIN HEART ATTACK SYMPTOMS prochlorperazine [From Compazine] Adverse Reaction (Verified 09/18/20 00:43) Other AGIATION, PT STATES NEEDS BENADRYL Primary Care Physician: Ki Weldon MD [Primary Care Provider] - Surgical History: cholecystectomy, - - , tubal ligation, left ovary removed, loop recorder implanted, Mediport implanted Smoking Status: Never smoker - Family History Maternal Family History: Reports: Heart Disease, Stroke Paternal Family History: Reports: High Cholesterol, Stroke Review of Systems General: Denies: Chills, Fever, Sweats Eyes: Reports: Blurred Vision - bilaterally, Diplopia, - - trouble keeping R eye open ENT: Denies: Bilateral ear pain, Rhinorrhea, Sore throat Cardiovascular: Denies: Chest pain, Palpitations Respiratory: Denies: Dyspnea, Cough, Dyspnea on exertion Gastrointestinal: Denies: Abdominal pain, Nausea, Vomiting, Diarrhea, Melena, Hematochezia Genitourinary: Denies: Dysuria, Hematuria, Frequency Musculoskeletal: Denies: Neck pain, Swelling, Extremity Pain Skin: Denies: Rash, Wounds Neurological: Reports: Headache. Denies: Numbness STROKE Vital Signs/Narrative: Vital Signs Temp Pulse Resp BP Pulse Ox 09/18/20 00:40 98.0 F 100 16 137/79 H 98 Inital Vital Signs reviewed: Yes - NIHSS Initial 1a Level of Consciousness: 0 1b LOC Questions (Score 2 if aphasic/stupor): 0 1c LOC Commands (Only score 1st attempt): 0 2 Best Gaze (If aphasic, use reflexive mvmts.): 0 3 Visual: 0 4 Facial Palsy: 0 5 Motor Arm Right (UN = amputation/fusion): 1 5 Motor Arm Left: 0 6 Motor Leg Right: 1 6 Motor Leg Left: 0 7 Limb ataxia (Only + if out of proportion): 0 8 Sensory (Aphasia/stupor=0 or 1, coma=2): 0 9 Best Language: 0 10 Dysarthria (mute, coma=2, intubated=UN): 0 11 Extinction and Inattention (only scored if +): 0 Total Score: 2 General: Well nourished, Well developed, Obese, - - NAD Head: Normocephalic, Atraumatic Eyes: Perrl, EOMI, - - mild R ptosis ENT: Moist mucous membranes, No rhinorrhea Neck: Supple, Nontender, No lymphadenopathy Cardiovascular: Regular rate, Regular rhythm, No murmurs Respiratory: No distress, CTA bilaterally, Chest nontender Abdomen: Soft, Nontender, Nondistended, Normal bowel sounds Back: Nontender, Normal Inspection. Negative for: CVA tenderness Extremities: Nontender, No edema. Negative for: Calf Tenderness Skin: Normal color, No rash, No Trauma Neurological: Alert, Oriented x3, Cranial nerves II-XII grossly intact, Normal Sensation, Weakness - RUE and RLE, - - Unable to perform wcen-fe-pmpt well with right lower extremity due to weakness. Normal vqdy-vb-stob left lower extremity, normal swtrim-sk-kpkp bilaterally. Psychological: Normal Mood, - - anxious Diagnostic/Tx/Re-eval Impressions Brain CT 09/18/20 00:53 IMPRESSION: Negative unenhanced CT scan of the brain. No interval change. N.B. : The above information has been verbally conveyed by Erich Pereyra MD to Emir Duval MD, on 09/18/2020 01:32:39 (ET). Electronically Signed: Erich Pereyra MD at 1:33 EST Tel , Service support , ADDENDUM: 09/18/20 0140 IMPRESSION: Negative unenhanced CT scan of the brain. No interval change. N.B. : The above information has been verbally conveyed by Erich Pereyra MD to Emir Duval MD, on 09/18/2020 01:32:39 (ET). Electronically Signed: Erich Pereyra MD at 1:33 EST Tel , Service support , Chest X-Ray 09/18/20 01:00 IMPRESSION: Negative x-ray examination of the chest. No interval change. Electronically Signed: Erich Pereyra MD at 1:17 EST Tel , Service support , 09/18/20 00:53 STROKE Brain/Head without Cont [CT] Stat 09/18/20 00:54 STROKE CTA Head AND Neck W/Con [CT] Stat 09/18/20 01:00 Chest 1 View [RAD] Stat Laboratory Results 09/18/20 09/18/20 09/18/20 01:17 01:33 01:33 WBC 4.3 L RBC 3.75 L Hgb 9.9 L Hct 30.7 L MCV 81.9 MCH 26.4 L MCHC 32.2 RDW Std Deviation 41.2 RDW Coeff of Millie 13.9 Plt Count 200 MPV 9.6 Immature Gran % (Auto) 0.200 Neut % (Auto) 45.6 L Lymph % (Auto) 43.4 H [place] % (Auto) 6.1 Eos % (Auto) 4.2 Baso % (Auto) 0.5 Absolute Neuts (auto) 2.0 Absolute Lymphs (auto) 1.86 Nucleated RBC % 0 Differential Comment SCANNED Platelet Estimate ADEQUATE PT INR APTT Sodium 134 L Potassium 3.4 L Chloride 102 Carbon Dioxide 25.0 Anion Gap 7 BUN 6 L Creatinine 0.76 Estim Creat Clear Calc 83.16 Est GFR (MDRD) Af Amer 116 Est GFR (MDRD) Non-Af 96 BUN/Creatinine Ratio 7.9 L Glucose 400 H Calcium 8.3 L Troponin I < 0.015 POC Glucose 384 H 09/18/20 01:50 WBC RBC Hgb Hct MCV MCH MCHC RDW Std Deviation RDW Coeff of Millie Plt Count MPV Immature Gran % (Auto) Neut % (Auto) Lymph % (Auto) [place] % (Auto) Eos % (Auto) Baso % (Auto) Absolute Neuts (auto) Absolute Lymphs (auto) Nucleated RBC % Differential Comment Platelet Estimate PT 12.3 INR 1.0 APTT < 24.0 L Sodium Potassium Chloride Carbon Dioxide Anion Gap BUN Creatinine Estim Creat Clear Calc Est GFR (MDRD) Af Amer Est GFR (MDRD) Non-Af BUN/Creatinine Ratio Glucose Calcium Troponin I POC Glucose Chest X-Ray - ED: 1 View, Read by ED Physician, No Acute Disease - Rhythm Strip Rhythm Strip: Sinus Tach Rate: 106 Ectopy: None - EKG Initial EKG Interpretation: No Acute Injury Pattern, Sinus Tachycardia Prior: Unchanged - Medical Decision Making Stroke Team Activated: Yes Reviewed Inclusion/Exclusion criteria: Yes IV Alteplase (t-PA) Administered: No - anticoagulated Patient having vertigo with vision changes and right-sided hemiparesis. Differential includes ischemic stroke, albeit unlikely in a patient anticoagulated on Lovenox, she did have an acute DVT while she was on Xarelto. Differential also includes complicated migraine. I do not think she is having seizure activity. There is also the possibility of a rare posterior communicating artery aneurysm, but that is less likely and would not explain her weakness if that was the problem here. Her plain CT is negative. She is not a TPA candidate since she is anticoagulated and not sure exactly what time she went to bed. We were not able to obtain CT angiography because her med port had to be removed due to infection, and the patient is a very difficult stick/access, nursing was not able to obtain an antecubital IV. They were able to obtain a very small peripheral IV in her hand which is good enough for admission at this time but not for angiography. A central line would not allow for angiography either because of the timing of the CT system. I discussed all this with stroke neurology Dr. Ruiz with [facility], who agrees that if she does not have an LVO she can be admitted. I think the chances of an LVO here are low since she does not have any cortical symptoms/findings, and admitting her for MRA/MRI would be reasonable. She is getting IV Reglan to see if that helps her symptoms, she states that she requires Benadryl be given with it which is being done as well. ED Disposition - Plan for ED Patient: Disposition: Acute Care [facility] Diagnosis: Acute right hemiparesis, Vertigo Referrals: Ki Weldon MD [Primary Care Provider] -
--- NOTE | 2020-09-18 01:00 | RAD_ITS ---
STUDY: X-RAY CHEST REASON FOR EXAM: Female, 30 years old. Neuro deficit, acute, stroke suspected TECHNIQUE: AP COMPARISON: 08/22/2020 FINDINGS: The lungs are clear and expanded. There is no demonstrated pleural abnormality. Normal size heart. There is a loop recorder visualized. Normal mediastinum and teja. Normal visualized pulmonary arteries. Normal visualized aortic arch and descending thoracic aorta. Normal visualized thoracic spine. Normal visualized ribs, clavicles, and shoulders. There is no demonstrated abnormality of the visualized soft tissue structures of the upper abdomen. RAD/Chest 1 View IMPRESSION: Negative x-ray examination of the chest. No interval change. Electronically Signed: Erich Pereyra MD at 1:17 EST Tel , Service support ,
[2020-09-18 01:26] LABS: Bedside Glucose 384 mg/dL (70-110)
[2020-09-18 01:43] LABS: Absolute Lymphocyte Count 1.86 X10^3/uL (0.83-4.51); Basophil# 0.02 X10^3/uL; Basophil% 0.5 % (0-1); Eosinophil# 0.18 X10^3/uL; Eosinophils% 4.2 % (0-5); Hematocrit 30.7 % (37-47); Hemoglobin 9.9 g/dL (12.0-15.0); Lymphocyte # 1.86 X10^3/ul (4.0); Lymphocyte % 43.4 % (19-41); Mean Corp Hgb Conc 32.2 g/dL (32-36); Mean Corpuscular Hgb 26.4 pg (27.0-32.0); Mean Corpuscular Volume 81.9 fL (81-99); Mean Platelet Vol. 9.6 fl (6.2-12.0); Monocyte# 0.26 X10^3/uL; Monocyte% 6.1 % (0-10); NRBC Flagged by Analyzer 0 % (0-5); Neutrophil # 1.96 X10^3/uL (2.7-7.7); Neutrophil % 45.6 % (47-70); POSITIVE COUNT YES; Platelet Count 200 K/mm3 (150-450); RBC Distribution Width CV 13.9 % (11.6-14.6); RBC Distribution Width SD 41.2 fl (35.1-43.9); Red Blood Count 3.75 M/mm3 (4.2-5.4); White Blood Count 4.3 K/mm3 (4.4-11.0)
[2020-09-18 02:07] LABS: Differential Indicated SCAN CRITERIA MET
[2020-09-18 02:24] LABS: Prothrombin Time (Protime)PT. 12.3 SECONDS (11.7-14.9)
[2020-09-18 02:28] LABS: Anion Gap 7 (5-15); BUN 6 mg/dL (7-18); BUN/Creat Ratio 7.9 RATIO (10-20); Calcium,Total 8.3 mg/dL (8.5-10.1); Chloride 102 mmol/L (98-107); Creatinine, Serum 0.76 mg/dL (0.55-1.02); EST Glomerular Filtration Rate 96 mL/min (>60); Est Glom Filt Rate - Afr Amer 116 mL/min (>60); Estimated Creatinine Clearance 83.16 ml/min; Glucose 400 mg/dL (74-106); Potassium 3.4 mmol/L (3.5-5.1); Sodium Level 134 mmol/L (136-145)
[2020-09-18 02:31] LABS: Partial Thromboplast Time < 24.0 Seconds (24.1-36.2)
[2020-09-18 02:42] LABS: Differential Comment SCANNED; Platelet Estimate ADEQUATE (ADEQ)
[2020-09-18] MEDS: DiphenhydrAMINE 50 MG/ML Syringe 25 MG IV (02:48)
[2020-09-18] MEDS: Metoclopramide 10 MG/2 ML Vial 5 MG IV (02:52)
[2020-09-18] MEDS: Insulin Lispro 100 UNIT/ML INSULN.PEN 14 UNIT SC (03:06)
--- NOTE | 2020-09-18 04:02 | PCM.HP.STD ---
Problem List (1) Acute right hemiparesis Status: Acute (2) Vertigo Status: Acute (3) Anemia Status: Chronic (4) Anxiety Status: Chronic (5) Factor V Leiden Status: Chronic (6) MDD (major depressive disorder) Status: Chronic (7) Migraines Status: Chronic (8) PTSD (post-traumatic stress disorder) Status: Chronic (9) Pulmonary emboli Status: Chronic (10) TIA (transient ischemic attack) Status: Chronic (11) Cephalgia Status: Acute (12) Pulmonary embolus, right Status: Chronic History of Present Illness Date of Admission: 09/18/20 Chief Complaint: Droopy right eye lid The patient is a 30 year old F with a significant history of factor V Leiden deficiency; DVT; PE; TIA; and chronic migraine; and chronic pain who presents emergency department with droopy eyelid of the right eye. Symptoms started after she woke up from her sleep. Associated with symptom is vertigo; blurry vision and double vision. Further she has right leg weakness and right arm weakness. Also she had nausea and headache. She report that her headache is doing from her chronic migraine. Her headache is located at the right head. She has photophobia. Patient was admitted at hospital on 11/23/2019 and discharged on 11/23/2019 with diagnosis of acute complex migraine; and migraine/drug-seeking behavior among others. Past Medical History Past Medical History (Chronic Problems): Chronic Problems Pulmonary embolus, right (Chronic) Factor V Leiden (Chronic) Anxiety (Chronic) MDD (major depressive disorder) (Chronic) PTSD (post-traumatic stress disorder) (Chronic) Pulmonary emboli (Chronic) Migraines (Chronic) TIA (transient ischemic attack) (Chronic) Anemia (Chronic) Allergies furosemide [From Lasix] Allergy (Verified 09/18/20 00:43) Hives Iodinated Contrast Media Allergy (Verified 09/18/20 00:43) Hives ondansetron [From Zofran] Allergy (Verified 09/18/20 00:43) Hives propranolol Allergy (Verified 09/18/20 00:43) Angioedema sumatriptan [From Imitrex] Allergy (Verified 09/18/20 00:43) Other CHEST PAIN HEART ATTACK SYMPTOMS prochlorperazine [From Compazine] Adverse Reaction (Verified 09/18/20 00:43) Other AGIATION, PT STATES NEEDS BENADRYL Home Medications: Ambulatory Orders Medication Instructions Recorded Topiramate [Topamax] 200 mg PO BID 09/10/18 Magnesium 500 mg PO BID 09/18/19 Vitamin B Complex 2 ea PO DAILY 09/18/19 proMETHazine suppository 25 mg RECTAL Q6H PRN PRN #6 suppos. 10/05/19 [Phenergan Suppository] Fluoxetine HCl [Prozac] 60 mg PO DAILY 12/24/19 Zolpidem Tartrate [Ambien] 1 - 2 tab PO QHS 02/25/20 Metformin HCl 850 mg PO TID 03/05/20 Metoclopramide [Reglan] 10 mg PO 4X/DAY PRN #20 tab 08/31/20 proMETHazine tablet [Phenergan] 25 mg PO Q6H PRN PRN #10 tab 08/31/20 Buprenorphine HCl/Naloxone HCl 1.5 ea SL DAILY 09/18/20 [Buprenorp-Nalox 8-2 mg Sl Film] Enoxaparin Sodium 110 mg SQ DAILY 09/18/20 busPIRone [Buspar] 10 mg PO 4X/DAY 09/18/20 Surgical History: cholecystectomy, - - , tubal ligation, left ovary removed, loop recorder implanted, Mediport implanted Psychiatric History: Anxiety, Depression, Post traumatic stress 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 Denies: Sinus Congestion, Sinus Drainage Cardiovascular: Denies: Chest Pain, Palpitations Respiratory: Denies: Cough, Shortness of breath at rest, Sputum production Gastrointestinal: Denies: Abdominal Pain, Nausea, Vomiting Genitourinary: Denies: Dysuria Musculoskeletal: Denies: Joint Pain, Joint Tenderness Skin: Denies: Rash, Wounds Neurological: Reports: Blurred vision, Double vision, Focal weakness. Denies: Numbness, Tingling Psychiatric: Denies: Anxiety, Depression, Homicidal Ideations, Suicidal Ideations Hematologic/ Lymphatic: Denies: Easy Bruising, Easy Bleeding VTE Information - Inpt Only VTE Present on Admission: No VTE Mechan Device Prophylaxis: None VTE Pharm Prophylaxis ordered?: No Reason prophylaxis not ordered:: Treatment Not Indicated - On Lovenox for history of DVT. Patient Problems: Active and Suspected Problems Acute right hemiparesis (Acute) Vertigo (Acute) Cephalgia (Acute) - Physical Exam Vitals/I&O's: Vital Signs Temp Pulse Resp BP Pulse Ox 98 F 109 H 15 127/73 H 94 09/18/20 03:16 09/18/20 03:16 09/18/20 03:16 09/18/20 03:16 09/18/20 03:16 Oxygen Delivery Method Room Air Weight: 111.3 kg Body Mass Index (BMI) 46.3 Finger Stick Blood Glucose 384 General: Alert, Oriented x3, Cooperative HEENT: Atraumatic, PERRLA, EOMI, Normocephalic Neck: Supple, No JVD, Negative Carotid Bruits Lungs: Clear to auscultation, Normal air movement Cardiovascular: Normal S1, Normal S2, No murmurs, Tachycardic Abdomen: Bowel Sounds Present, Soft, Non Tender Extremities: No edema, Capillary Refill Less than 3 Seconds Skin: No rashes, No breakdown Musculoskeletal: No Tenderness to Palpation of Joints or Extremities Neurological: Cranial nerves II-XII grossly intact - Counting fingers double ., Deep Tendon Reflexes 2+/4 and Symmetrical, - - Mild Nystagmus. Strength in right upper extremity 3 out of 5. Strength in right lower extremity 4 out of 5. ROM in the right upper extremity and right lower extremity. Strength in left upper extremity and left lower extremity 5 out of 5. Full ROM in left upper and left lower extremity ROM. Psych/Mental Status: Normal Affect, Appropriate Laboratory Results 09/18/20 01:17: POC Glucose 384 H 09/18/20 01:33: WBC 4.3 L, RBC 3.75 L, Hgb 9.9 L, Hct 30.7 L, MCV 81.9, MCH 26.4 L, MCHC 32.2, RDW Std Deviation 41.2, RDW Coeff of Millie 13.9, Plt Count 200, MPV 9.6, Immature Gran % (Auto) 0.200, Neut % (Auto) 45.6 L, Lymph % (Auto) 43.4 H, [place] % (Auto) 6.1, Eos % (Auto) 4.2, Baso % (Auto) 0.5, Absolute Neuts (auto) 2.0, Absolute Lymphs (auto) 1.86, Nucleated RBC % 0, Differential Comment SCANNED, Platelet Estimate ADEQUATE 09/18/20 01:33: Sodium 134 L, Potassium 3.4 L, Chloride 102, Carbon Dioxide 25.0, Anion Gap 7, BUN 6 L, Creatinine 0.76, Estim Creat Clear Calc 83.16, Est GFR (MDRD) Af Amer 116, Est GFR (MDRD) Non-Af 96, BUN/Creatinine Ratio 7.9 L, Glucose 400 H, Calcium 8.3 L, Troponin I < 0.015 09/18/20 01:50: PT 12.3, INR 1.0, APTT < 24.0 L Current Medications Sodium Chloride () 1,000 mls @ 150 mls/hr IV .Q6H40M NIGEL Labetalol HCl (Labetalol (Prefilled) 20 Mg/4 Ml) 20 mg IV X1 PRN PRN Reason: BLOOD PRESSURE Assessment/Plan All Active Problems Acute right hemiparesis (Acute) Vertigo (Acute) Cephalgia (Acute) The patient is a 30 year old F with a significant history of factor V Leiden deficiency; DVT; PE; TIA; and chronic migraine; and chronic pain who presents emergency department with droopy eyelid of the right eye; vertigo; blurry vision ; double vision right leg weakness; right arm weakness; nausea and headache. Strokelike symptoms Differential diagnosis includes TIA; CVA; multiple sclerosis; complex headache or other. Serial NINDS NIH Scale ordered CT of the head was unremarkable -Check Hba1c, Lipid level Physical therapy, and occupational therapy to work with patient. N.p.o. until bedside swallow eval. Daily aspirin. High intensity statin ordered Lipid profile and A1c ordered. Permissive hypertension. Control blood pressure with labetalol for systolic blood pressure of more than 220 or diastolic blood pressure of more than 120. CTA head and neck could not be done because of high above IV could not be placed. MRI/MRA of head; brain; and neck. Echocardiogram ordered. Patient is requesting complete sedation with MRI. Discussed with patient that she can be given 2 mg of Ativan for MRI but she cannot be completely sedated. History of DVT/PE/factor V Leyden deficiency Reportedly patient has had multiple anticoagulants. She has been on Xarelto; warfarin; Pradaxa and now on Lovenox. Reportedly while on Xarelto she. Clots. Reportedly she could not tolerate Pradaxa because of nausea and vomiting. Lovenox continued Insomnia Ambien continued Diabetes mellitus Blood glucose was evaluated on presentation. Hold Metformin. Hold in hospital setting Received short acting insulin at emergency department. Placed on Accu-Chek with correction scale insulin and long-acting insulin. DVT prophylaxis Not indicated since patient is on Lovenox level has been continued. OBSV E&M: 14986 Initial observation care L3
--- NOTE | 2020-09-18 04:26 | ED.RN ---
PT REPORTED THAT IN ORDER TO DO AN MRI SHE WILL HAVE TO BE COMPLETELY SEDATED. DR SHEN MADE AWARE.
[2020-09-18 04:51] LABS: Bedside Glucose 350 mg/dL (70-110)
== END 2020-09-18 05:26 | disposition short-term general hospital (02) ==
PROVIDERS: Hospitalist; Emergency Provider Emergency Medicine; PCP Family Medicine
DX: G81.91 Hemiplegia, unspecified affecting right dominant side (principal); R42 Dizziness and giddiness; D68.51 Activated protein C resistance; E66.9 Obesity, unspecified; F32.9 Major depressive disorder, single episode, unspecified; F43.12 Post-traumatic stress disorder, chronic; Z86.718 Personal history of other venous thrombosis and embolism; Z79.02 Long term (current) use of antithrombotics/antiplatelets; Z86.73 Personal history of transient ischemic attack (TIA), and cerebral infarction without residual deficits; Z86.711 Personal history of pulmonary embolism; Z79.899 Other long term (current) drug therapy
CPT/HCPCS: 70450; 71045; 80048; 82962; 84484; 85025; 85610; 85730; 87426; 93005; 96361; 96374; 96375; 99285; J7030; A4216

== ENCOUNTER 2021-01-03 04:06 | Emergency (ER) | payer MEDICAID, SELFPAY ==
[2020-11-22 17:39] VITALS: BMI 46.3
[2021-01-03 04:07] VITALS: BP 152/99; PULSE 117; RESP 16; TEMP 36.9; O2SAT 98; BMI 40.8
[2021-01-03 04:31] LABS: Mucous, Urine 0 SEEN /hpf (<or=2+); Red Blood Cells-Urine 0 SEEN /hpf (0-5)
[2021-01-03 04:32] LABS: Color, Urine Yellow (Yellow); Glucose, Dipstick Normal (Normal); Ketone-Dipstick 5 mg/dl (Negative); Leukocyte Esterase-Dipstick 25 /ul (Negative); Nitrite-Dipstick Negative (Negative); Occult Blood-Urine Negative /ul (Negative); Protein-Dipstick 30 mg/dl (Negative); Specific Gravity, Urine 1.025 (1.002-1.030); Urine Bilirubin Dipstick Negative (Negative); Urine Clarity Turbid (Clear); Urine Urobilinogen Normal (Normal)
[2021-01-03 04:34] LABS: Absolute Neutrophil Count 6.8 X10^3/uL (2.0-7.7); Basophil# 0.03 X10^3/uL; Basophil% 0.3 % (0-1); Eosinophil# 0.04 X10^3/uL; Eosinophils% 0.4 % (0-5); Hematocrit 38.7 % (37-47); Hemoglobin 12.7 g/dL (12.0-15.0); Lymphocyte % 23.3 % (19-41); Mean Corp Hgb Conc 32.8 g/dL (32-36); Mean Corpuscular Hgb 24.9 pg (27.0-32.0); Mean Corpuscular Volume 75.7 fL (81-99); Mean Platelet Vol. 8.9 fl (6.2-12.0); Monocyte% 4.2 % (0-10); NRBC Flagged by Analyzer 0 % (0-5); Neutrophil # 6.75 X10^3/uL (2.7-7.7); Neutrophil % 71.4 % (47-70); Platelet Count 334 K/mm3 (150-450); RBC Distribution Width CV 14.8 % (11.6-14.6); RBC Distribution Width SD 40.2 fl (35.1-43.9); Red Blood Count 5.11 M/mm3 (4.2-5.4); White Blood Count 9.5 K/mm3 (4.4-11.0)
[2021-01-03 04:39] LABS: Amorphous Sediment 2+; Bacteria 4+ /hpf (None Seen); Squamous Epithelial Cells - UA 0-5 SEEN /hpf (5-10); White Blood Cells 0-5 SEEN /hpf (0-5)
[2021-01-03 04:50] LABS: AST(SGOT) 15 U/L (15-37); Alanine Aminotransfer ALT/SGPT 31 U/L (13-56); Albumin, Serum 3.9 g/dL (3.2-5.0); Alkaline Phosphatase 123 U/L (45-117); Anion Gap 11 (5-15); BUN 12 mg/dL (7-18); BUN/Creat Ratio 13.7 RATIO (10-20); Calcium,Total 9.2 mg/dL (8.5-10.1); Chloride 108 mmol/L (98-107); Creatinine, Serum 0.87 mg/dL (0.55-1.02); EST Glomerular Filtration Rate 82 mL/min (>60); Est Glom Filt Rate - Afr Amer 99 mL/min (>60); Estimated Creatinine Clearance 72.65 ml/min; Globulin 4.1 g/dL (2.2-4.2); Glucose 197 mg/dL (74-106); Lipase 78 U/L (73-393); Potassium 3.7 mmol/L (3.5-5.1); Sodium Level 137 mmol/L (136-145)
[2021-01-03] MEDS: Ketorolac 15 MG/ML Vial IM (04:54)
[2021-01-03] MEDS: proMETHazine 25 MG Tablet PO (05:03)
--- NOTE | 2021-01-03 05:06 | EX.ED.DYSGE1 ---
HPI History of Present Illness Chief Complaint: Abd Pain Informant: patient Onset/Context/Timing Onset: Days Location: Right abdomen Maximum Severity: Severe Associated Symptoms Associated Symptoms: Nausea Narrative Narrative: Patient was seen at an outside hospital where she was found to have an ovarian cyst on the right side. She did not know the size of it. She did have ovarian torsion on the left remotely. 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 Denies any urinary symptoms. She does have some nausea but no other GI symptoms. History of a cholecystectomy, . Prior similar symptoms: Yes Recent Illness/Hospitalization: No PFSH PFSH Medical History Ovarian cyst Home Medications topiramate 200 mg PO BID 09/10/18 [History Last Taken 11/22/19 22:00] vitamin B complex 2 ea PO DAILY 09/18/19 [History Last Taken 11/22/19 08:00] promethazine 25 mg RECTAL Q6H PRN PRN #6 suppos. 10/05/19 [Rx Last Taken Unknown] fluoxetine 60 mg PO DAILY 12/24/19 [History Last Taken Unknown] promethazine 25 mg PO Q6H PRN PRN #10 tab 08/31/20 [Rx Last Taken Unknown] rizatriptan 10 mg tablet 10 mg PO ONCE #4 tab 11/22/20 [Rx Last Taken Unknown] promethazine 25 mg PO TID PRN #20 tab 01/03/21 [Rx Last Taken Unknown] Allergy/AdvReac Type Severity Reaction Status Date / Time furosemide [From Lasix] Allergy Hives Verified 01/03/21 04:12 Iodinated Contrast Media Allergy Hives Verified 01/03/21 04:12 ondansetron [From Zofran] Allergy Hives Verified 01/03/21 04:12 propranolol Allergy Angioedema Verified 01/03/21 04:12 sumatriptan [From Imitrex] Allergy Other Verified 01/03/21 04:12 prochlorperazine AdvReac Other Verified 01/03/21 04:12 [From Compazine] Surgical History H/O tubal ligation Hx of cholecystectomy Social History Smoking Status: Never smoker ROS ROS ED Constitutional Constitutional ED: Denies chills or fever(s) ENT ENT ED: Denies ear pain Cardiovascular Cardiovascular: Denies chest pain or palpitations Respiratory/Chest Respiratory/Chest: Denies cough or dyspnea Gastrointestinal Gastrointestinal: Reports abdominal pain and nausea; Denies constipation, diarrhea or vomiting Genitourinary Genitourinary ED: Denies dysuria, hematuria or urinary frequency Musculoskeletal Musculoskeletal: Denies arthralgias, back pain or myalgias Integumentary Denies rash Neurologic Neurologic: Denies headache(s) Psychiatric Psychiatric: Denies depression Endocrine Endocrinology: Denies polyuria Allergic/Immunologic Allergic/Immunologic ED: Denies urticaria EXAM Physical Exam Const Vital Signs: 01/03/21 04:07 Temperature 98.5 F Temperature Source Temporal Pulse Rate 117 H Respiratory Rate 16 Blood Pressure 152/99 H Blood Pressure Mean 116 Pulse Ox 98 Oxygen Delivery Method Room Air Positive well nourished and well developed General Appearance ED: well developed HEENT Negative for trauma or tenderness Eyes EOMs intact bilaterally Neck supple Resp normal respiratory effort Cardio regular rate GI GI Narrative: Tender over the right hemiabdomen without guarding or rebound. No focal tenderness at McBurneys point Back/Spine no CVA tenderness Extremity normal to inspection Neuro oriented x3 Sensorium / Orientation: alert Psych mental status grossly normal Skin no rashes or lesions noted MDM MDM MDM Narrative Medical decision making narrative: Patient presents with right-sided abdominal pain. History of ovarian cyst on the right diagnosed on December 30 by ultrasound. Remote history of cholecystectomy, . I was able to review her recent testing. Her cyst measured less than 2 cm in all dimensions. This is unlikely to cause torsion. Her history and exam are not consistent with torsion. There was no indication to repeat imaging. I did recheck her testing below. Results were stable and/or unremarkable. Patient was treated with pain medicine and nausea medicine. 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 Lab Data Attestation: I reviewed the patient's lab results. Labs: Laboratory Results - last 24 hr 01/03/21 01/03/21 01/03/21 04:25 04:30 04:30 WBC 9.5 RBC 5.11 Hgb 12.7 Hct 38.7 MCV 75.7 L MCH 24.9 L MCHC 32.8 RDW Std Deviation 40.2 RDW Coeff of Millie 14.8 H Plt Count 334 MPV 8.9 Immature Gran % (Auto) 0.400 Neut % (Auto) 71.4 H Lymph % (Auto) 23.3 [place] % (Auto) 4.2 Eos % (Auto) 0.4 Baso % (Auto) 0.3 Absolute Neuts (auto) 6.8 Absolute Lymphs (auto) 2.20 Nucleated RBC % 0 Sodium 137 Potassium 3.7 Chloride 108 H Carbon Dioxide 18.0 L Anion Gap 11 BUN 12 Creatinine 0.87 Estim Creat Clear Calc 72.65 Est GFR (MDRD) Af Amer 99 Est GFR (MDRD) Non-Af 82 BUN/Creatinine Ratio 13.7 Glucose 197 H Calcium 9.2 Total Bilirubin 0.40 AST 15 ALT 31 Alkaline Phosphatase 123 H Total Protein 8.0 Albumin 3.9 Globulin 4.1 Albumin/Globulin Ratio 1.0 Lipase 78 Urine Color Yellow Urine Clarity Turbid Urine pH 5.0 Ur Specific [place] 1.025 Urine Protein 30 H Urine Glucose (UA) Normal Urine Ketones 5 H Urine Occult Blood Negative Urine Nitrite Negative Urine Bilirubin Negative Urine Urobilinogen Normal Ur Leukocyte Esterase 25 H Urine RBC 0 SEEN Urine WBC 0-5 SEEN Ur Squamous Epith Cells 0-5 SEEN Amorphous Sediment 2+ Urine Bacteria 4+ Urine Mucus 0 SEEN Discharge Plan Triage Chief Complaint: Abd Pain ED Provider: Jose Chu Dx/Rx/DC Orders Clinical Impression: Right sided abdominal pain Instructions: ED Ovarian Cyst Prescriptions: New promethazine 25 mg tablet 25 mg PO TID PRN (Reason: nausea and vomiting) Qty: 20 RF: 0 No Action rizatriptan 10 mg tablet 10 mg PO ONCE Qty: 4 RF: 0 topiramate 200 MG tablet 200 mg PO BID RF: 0 vitamin B complex 1 EACH capsule 2 ea PO DAILY RF: 0 promethazine 25 MG suppository 25 mg RECTAL Q6H PRN PRN (Reason: Nausea) Qty: 6 RF: 0 fluoxetine 20 MG capsule 60 mg PO DAILY RF: 0 promethazine 25 MG tablet 25 mg PO Q6H PRN PRN (Reason: Nausea) Qty: 10 RF: 0 Primary Care Provider: Ki Weldon Activity Restrictions/Additional Instructions: Follow up with your OBGYN Disposition Disposition: Home, self care
== END 2021-01-03 05:14 | disposition home or self-care (01) ==
LOC: ED 05:12
PROVIDERS: Emergency Provider Emergency Medicine; PCP Family Medicine
DX: R10.9 Unspecified abdominal pain (principal); R11.0 Nausea; Z90.49 Acquired absence of other specified parts of digestive tract; Z79.899 Other long term (current) drug therapy
CPT/HCPCS: 80053; 81001; 83690; 85025; 96372; 99283

== ENCOUNTER 2021-02-03 06:12 | Emergency (ER) | payer MEDICAID, SELFPAY ==
[2021-02-03 06:14] VITALS: BP 137/83; PULSE 82; RESP 16; TEMP 36.8; O2SAT 99; BMI 42.3
--- NOTE | 2021-02-03 06:39 | CT_ITS ---
STUDY: CT BRAIN WITHOUT CONTRAST REASON FOR EXAM: Female, 30 years old. Head injury RADIATION DOSAGE (If Supplied By Facility): CTDIvol = ( 44.99 ) mGy, DLP = ( 779.24 ) mGycm TECHNIQUE: Transaxial CT imaging of the brain was performed without administration of intravenous contrast material. Individualized dose optimization techniques were used for this CT. COMPARISON: No relevant priors. FINDINGS: Normal soft tissue structures. Normal calvarium. Normal size ventricles and extra-axial spaces for the patient''s age. Normal white matter tracts of the cerebral hemispheres. Normal basal ganglia and thalami. Normal brainstem. Normal cerebellum. There is no intracranial hemorrhage. There are no findings of an acute ischemic infarction. Normal visualized paranasal sinuses. CT/Brain/Head without Contrast IMPRESSION: Normal unenhanced CT scan of the brain. Electronically Signed: Abdulaziz Chicas MD at 8:01 EDT , Service support ,
--- NOTE | 2021-02-03 06:39 | CT_ITS ---
STUDY: CT CERVICAL SPINE WITHOUT CONTRAST REASON FOR EXAM: Female, 30 years old. Neck pain RADIATION DOSAGE (If Supplied By Facility): CTDIvol = ( 30.52 ) mGy, DLP = ( 615.39 ) mGycm TECHNIQUE: High resolution transaxial imaging was performed without contrast material. Sagittal and coronal images were reconstructed. Individualized dose optimization techniques were used for this CT. COMPARISON: None FINDINGS: Normal craniovertebral junction. Normal anterior atlantoaxial articulation. Normal odontoid process. There is straightening of the normal cervical lordosis. Normal vertebral bodies and posterior osseous elements. C2-3: Normal endplates. Normal disc height and morphology. Normal central canal and intervertebral neuroforamina. C3-4: Normal endplates. Normal disc height and morphology. Normal central canal and intervertebral neuroforamina. C4-5: Normal endplates. Normal disc height and morphology. Normal central canal and intervertebral neuroforamina. C5-6: Normal endplates. Normal disc height and morphology. Normal central canal and intervertebral neuroforamina. C6-7: Normal endplates. Normal disc height and morphology. Normal central canal and intervertebral neuroforamina. C7-T1: Normal endplates. Normal disc height and morphology. Normal central canal and intervertebral neuroforamina. Normal visualized soft tissue structures. CT/Spine Cervical without Contras IMPRESSION: Normal unenhanced CT examination of the cervical spine. Electronically Signed: Abdulaziz Chicas MD at 8:09 EDT , Service support ,
--- NOTE | 2021-02-03 06:40 | EDS_ITS ---
HPI HPI - Fall History of Present Illness Chief Complaint: Fall Narrative Narrative: 30-year-old female presenting with headache and neck pain. She states she has been sleepwalking more recently but has been sleepwalking her whole life on and off. She states that she has more stress in her life she tends to sleep a lot. 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 She complains of head and neck pain. She was able to work her whole shift last night. She denies paresthesias. Patient has history of factor V Leiden and supposed to be on Pradaxa but states she is not taking this due to increased falls recently. [facility] Medical History Anxiety Depression DVT (deep venous thrombosis) Factor V Leiden Kidney stones Ovarian cyst Pulmonary embolism TIA (transient ischemic attack) Home Medications topiramate 200 mg PO BID 09/10/18 [History Last Taken 11/22/19 22:00] vitamin B complex 2 ea PO DAILY 09/18/19 [History Last Taken 11/22/19 08:00] promethazine 25 mg RECTAL Q6H PRN PRN #6 suppos. 10/05/19 [Rx Last Taken Unknown] fluoxetine 60 mg PO DAILY 12/24/19 [History Last Taken Unknown] promethazine 25 mg PO Q6H PRN PRN #10 tab 08/31/20 [Rx Last Taken Unknown] rizatriptan 10 mg PO ONCE PRN 02/03/21 [History Last Taken Unknown] Allergy/AdvReac Type Severity Reaction Status Date / Time furosemide [From Lasix] Allergy Hives Verified 01/03/21 04:12 Iodinated Contrast Media Allergy Hives Verified 01/03/21 04:12 ondansetron [From Zofran] Allergy Hives Verified 01/03/21 04:12 propranolol Allergy Angioedema Verified 01/03/21 04:12 sumatriptan [From Imitrex] Allergy Other Verified 01/03/21 04:12 prochlorperazine AdvReac Other Verified 01/03/21 04:12 [From Compazine] Surgical History H/O tubal ligation History of cholecystectomy Hx of cholecystectomy Social History Smoking Status: Never smoker ROS ROS ED Constitutional Constitutional ED: Denies chills or fever(s) Eyes Eyes: Denies blurry vision or diplopia ENT ENT ED: Denies rhinorrhea or sore throat Cardiovascular Cardiovascular: Denies chest pain or palpitations Respiratory/Chest Respiratory/Chest: Denies cough or dyspnea Gastrointestinal Gastrointestinal: Denies abdominal pain, nausea or vomiting Genitourinary Genitourinary ED: Denies dysuria, hematuria or urinary frequency Musculoskeletal Musculoskeletal: Reports neck pain; Denies myalgias Integumentary Denies abscess or rash Neurologic Neurologic: Reports headache(s); Denies paresthesias Psychiatric Psychiatric: Denies anxiety or depression EXAM Physical Exam Const Vital Signs: 02/03/21 06:14 02/03/21 06:23 Temperature 98.3 F Temperature Source Oral Pulse Rate 82 Respiratory Rate 16 Respiratory Effort Normal Respiratory Depth Normal Respiratory Pattern Normal Blood Pressure 137/83 H Blood Pressure Mean 101 Pulse Ox 99 Oxygen Delivery Method Room Air Room Air Positive well nourished General Appearance ED: NAD; Negative for pallor HEENT Reports normocephalic, head/scalp atraumatic and moist mucous membranes atraumatic Eyes PERRL and EOMs intact bilaterally Neck no lymphadenopathy and supple Neck Narrative: Midline spinal neck pain without deformity or step-off. Chest Wall inspection of chest normal and palpation of chest normal Resp normal respiratory effort and clear to auscultation bilaterally Auscultation: Negative for rales, rhonchi or wheezes Cardio regular rate and regular rhythm GI normal to inspection, nondistended, normoactive bowel sounds Narrative: Deferred Extremity General Extremety ED: Yes edema and tenderness General Extremity: edema Neuro oriented x3, CN's II-XII intact bilaterally, no focal motor deficits and no sensory deficits noted Sensorium / Orientation: alert Motor Exam: strength 5/5 throughout Psych mental status grossly normal Attitude: No agitated Skin no rashes or lesions noted and no wounds General Skin Exam: Negative for jaundice or pallor Lesions: no lesions Rashes: no rashes MDM MDM MDM Narrative Medical decision making narrative: Patient presenting with headache and neck pain which she states is different from her migraine headaches. She states she supposed to be on Pradaxa due to factor V Leiden history of clots however she is not taking this due to increased fall secondary to sleepwalking. Patient complains of headache and neck pain after a fall into her dresser yesterday. 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 She has no nausea or vomiting. She has a stable gait. Patient will have head CT and neck CT performed. She is given morphine IM for pain. Patient will be signed out to incoming ED doc for follow- up of CT head and neck. Discharge Plan Triage Chief Complaint: Fall ED Provider: Freddy Babb Dx/Rx/DC Orders Instructions: ED Head Injury (Adult), ED Neck Sprain or Strain Prescriptions: No Action topiramate 200 MG tablet 200 mg PO BID RF: 0 vitamin B complex 1 EACH capsule 2 ea PO DAILY RF: 0 promethazine 25 MG suppository 25 mg RECTAL Q6H PRN PRN (Reason: Nausea) Qty: 6 RF: 0 fluoxetine 20 MG capsule 60 mg PO DAILY RF: 0 promethazine 25 MG tablet 25 mg PO Q6H PRN PRN (Reason: Nausea) Qty: 10 RF: 0 rizatriptan 10 mg tablet 10 mg PO ONCE PRN (Reason: Migraine Headache) RF: 0 Primary Care Provider: Ki Weldon Referrals: Ki Weldon MD [Primary Care Provider] - Disposition Disposition: Home, Self Care
[2021-02-03] MEDS: Morphine 4 MG/ML Syringe IM (06:54)
== END 2021-02-03 08:34 | disposition home or self-care (01) ==
LOC: ED 07:00
PROVIDERS: Emergency Provider Student in an Organized Health Care Education/Training Program
DX: S09.90XA Unspecified injury of head, initial encounter (principal); F51.3 Sleepwalking [somnambulism]; F41.9 Anxiety disorder, unspecified; F32.9 Major depressive disorder, single episode, unspecified; D68.51 Activated protein C resistance; Z86.718 Personal history of other venous thrombosis and embolism; Z86.711 Personal history of pulmonary embolism; Z86.73 Personal history of transient ischemic attack (TIA), and cerebral infarction without residual deficits; Z79.02 Long term (current) use of antithrombotics/antiplatelets; Z79.899 Other long term (current) drug therapy; W18.30XA Fall on same level, unspecified, initial encounter; Y93.01 Activity, walking, marching and hiking; Y92.009 Unspecified place in unspecified non-institutional (private) residence as the place of occurrence of the external cause; Y99.8 Other external cause status
CPT/HCPCS: 70450; 72125; 96372; 99282

== ENCOUNTER 2021-02-11 04:42 | Emergency (ER) | payer MEDICAID, SELFPAY ==
[2021-02-11 04:46] VITALS: BP 158/73; PULSE 100; RESP 18; TEMP 36.6; O2SAT 100; BMI 39.6
--- NOTE | 2021-02-11 06:51 | EDS_ITS ---
HPI History of Present Illness Chief Complaint: Dental Onset/Context/Timing Onset: Days (2) Context: Gradual Onset Timing: Continuous Quality: Throbbing Location: Right upper molars Worsened by: Eating, chewing Relieved by: NSAIDs Associated Symptoms Assocated Symptom - Dental: cold sensitivity and hot sensitivity; Negative for fever Narrative Narrative: Patient presents with toothache to her right upper molar area. Bhavesh clyde states this has been getting worse over the past 2 days. Patient states she is on Augmentin for this. Patient states she called her dentist but she is unable to get into see them for the next couple weeks. Patient admits to hot and cold sensitivity. Patient admits to nausea but denies any vomiting. Patient states her pain radiates into her neck. Patient denies any fevers or chills. PFSH PFS Medical History Anxiety Depression DVT (deep venous thrombosis) Factor V Leiden Kidney stones Ovarian cyst Pulmonary embolism TIA (transient ischemic attack) Home Medications topiramate 200 mg PO BID 09/10/18 [History Last Taken 11/22/19 22:00] vitamin B complex 2 ea PO DAILY 09/18/19 [History Last Taken 11/22/19 08:00] promethazine 25 mg RECTAL Q6H PRN PRN #6 suppos. 10/05/19 [Rx Last Taken Unknown] fluoxetine 60 mg PO DAILY 12/24/19 [History Last Taken Unknown] promethazine 25 mg PO Q6H PRN PRN #10 tab 08/31/20 [Rx Last Taken Unknown] rizatriptan 10 mg PO ONCE PRN 02/03/21 [History Last Taken Unknown] Allergy/AdvReac Type Severity Reaction Status Date / Time furosemide [From Lasix] Allergy Hives Verified 02/11/21 04:49 Iodinated Contrast Media Allergy Hives Verified 02/11/21 04:49 ondansetron [From Zofran] Allergy Hives Verified 02/11/21 04:49 propranolol Allergy Angioedema Verified 02/11/21 04:49 sumatriptan [From Imitrex] Allergy Other Verified 02/11/21 04:49 prochlorperazine AdvReac Other Verified 02/11/21 04:49 [From Compazine] Surgical History H/O tubal ligation History of cholecystectomy Hx of cholecystectomy Social History Smoking Status: Never smoker ROS ROS ED Constitutional Constitutional ED: Denies chills or fever(s) Eyes Eyes: Denies blurry vision or change in vision ENT ENT ED: Denies rhinorrhea or sore throat Cardiovascular Cardiovascular: Denies chest pain or palpitations Respiratory/Chest Respiratory/Chest: Denies cough or dyspnea Gastrointestinal Gastrointestinal: Reports nausea; Denies vomiting Genitourinary Genitourinary ED: Denies dysuria or hematuria Musculoskeletal Musculoskeletal: Reports neck pain; Denies back pain Integumentary Denies abscess or rash Neurologic Neurologic: Denies headache(s) or weakness Allergic/Immunologic Allergic/Immunologic ED: Denies mouth swelling or urticaria EXAM Physical Exam Const Vital Signs: 02/11/21 04:46 Temperature 97.9 F Temperature Source Temporal Pulse Rate 100 Respiratory Rate 18 Blood Pressure 158/73 H Blood Pressure Mean 101 Pulse Ox 100 Oxygen Delivery Method Room Air Positive well nourished, well developed and obese General Appearance ED: well developed Nutritional Appearance: obese HEENT HEENT Narrative: Oral mucosa is pink and moist. There is a large dental carry noted over the right upper first molar. There are some mild gingival edema around this tooth. The dentin and pulp is exposed. Oropharynx is clear. Airway is patent. Neck is supple. Trachea is midline. There is no JVD or lymphadenopathy noted. Teeth and Gingiva: caries Throat: posterior oropharynx normal Neck supple and no JVD General: Negative for anterior neck swelling or submandibular swelling Lymph Lymphatic: no lymphadenopathy noted Neuro oriented x3, CN's II-XII intact bilaterally, moves all extremities, no focal motor deficits and no sensory deficits noted Sensorium / Orientation: alert Psych mental status grossly normal MDM MDM MDM Narrative Medical decision making narrative: Since the patient has only been on Augmentin for 3 days, I do not feel she needs to be changed from her current antibiotics at this time. Cavitt temporary filling was applied and the dentin and pulp was covered. Patient tolerated the procedure well. Patient was instructed to continue her ibuprofen, Tylenol, and oral Toradol as needed for pain. Patient was instructed to follow-up with her dentist in 3 to 5 days. Patient understood and was agreeable with the plan. All questions were answered. Discharge Plan Triage Chief Complaint: Dental ED Provider: Justyn Pendleton Dx/Rx/DC Orders Clinical Impression: Infected dental caries Instructions: ED Dental Pain, ED Dental Cavity Prescriptions: No Action topiramate 200 MG tablet 200 mg PO BID RF: 0 vitamin B complex 1 EACH capsule 2 ea PO DAILY RF: 0 promethazine 25 MG suppository 25 mg RECTAL Q6H PRN PRN (Reason: Nausea) Qty: 6 RF: 0 fluoxetine 20 MG capsule 60 mg PO DAILY RF: 0 promethazine 25 MG tablet 25 mg PO Q6H PRN PRN (Reason: Nausea) Qty: 10 RF: 0 rizatriptan 10 mg tablet 10 mg PO ONCE PRN (Reason: Migraine Headache) RF: 0 Primary Care Provider: Ki Weldon Referrals: Ki Weldon MD [Primary Care Provider] - 1-2 Weeks Dentist,Your [STAFF PHYSICIAN] - 3-5 Days Disposition Disposition: Home, Self Care
== END 2021-02-11 07:06 | disposition home or self-care (01) ==
PROVIDERS: Emergency Provider Emergency Medicine; PCP Family Medicine
DX: K04.7 Periapical abscess without sinus (principal); K02.9 Dental caries, unspecified; F41.9 Anxiety disorder, unspecified; F32.9 Major depressive disorder, single episode, unspecified; Z79.2 Long term (current) use of antibiotics; Z79.899 Other long term (current) drug therapy
CPT/HCPCS: 99282

== ENCOUNTER 2021-02-24 11:31 | Emergency (ER) | payer MEDICAID, SELFPAY ==
[2021-02-15 13:35] VITALS: BMI 39.6
[2021-02-24 11:32] VITALS: BP 128/80; PULSE 103; RESP 16; TEMP 36.5; O2SAT 97; BMI 39.6
--- NOTE | 2021-02-24 12:00 | VDLE_ITS ---
Reason For Study: Pain Procedure LEFT This is a venous duplex using B-mode, color GSV is normal. flow and spectral Doppler. CFV is compressible, spontaneous, phasic, Exam performed portable in ED. competent, and demonstrates normal A preliminary report was called and/or faxed augmentation. to [facility]. FV is compressible, spontaneous, phasic, competent and demonstrates normal augmentation. POP V is compressible, spontaneous, phasic, competent and demonstrates normal augmentation. T/P Trunk is compressible. PTV is compressible. LT PerV is compressible. VL/Venous Duplex US, Unilateral Interpretation Summary There is no evidence of left lower extremity deep vein thrombosis. Left great s aphenous vein appears patent and compressible segmentally. Ordering Physician: Justyn Pendleton Referring Physician: MD Shiraz Ki Performed By: Millie Reed RVT
--- NOTE | 2021-02-24 14:09 | EDS_ITS ---
HPI History of Present Illness Chief Complaint: Lower Extremity Injury Informant: patient Onset/Context/Timing Onset: Days Context: Gradual Onset Timing: Continuous Quality of Pain: Aching and Burning Location: Left lower leg Worsened by: Weightbearing, ice Relieved by: Heat Narrative Narrative: Patient presents with left leg pain that has been getting worse over the past few days. Patient states the pain is over her left lower leg. Patient denies any thigh pain. Patient states the pain is intermittent. Patient describes the pain as aching and burning. Patient states she has a history of DVT and factor V deficiency. Patient is concerned about a blood clot. Patient states her pain is worse with weightbearing and with ice. Patient states her pain is better with heat. [facility] Medical History Anxiety Depression DVT (deep venous thrombosis) Factor V Leiden Kidney stones Ovarian cyst Pulmonary embolism TIA (transient ischemic attack) Home Medications topiramate 200 mg PO BID 09/10/18 [History Last Taken 11/22/19 22:00] vitamin B complex 2 ea PO DAILY 09/18/19 [History Last Taken 11/22/19 08:00] promethazine 25 mg RECTAL Q6H PRN PRN #6 suppos. 10/05/19 [Rx Last Taken Unknown] fluoxetine 60 mg PO DAILY 12/24/19 [History Last Taken Unknown] promethazine 25 mg PO Q6H PRN PRN #10 tab 08/31/20 [Rx Last Taken Unknown] rizatriptan 10 mg PO ONCE PRN 02/03/21 [History Last Taken Unknown] amoxicillin 875 mg-potassium clavulanate 125 mg tablet 1 tab PO BID 02/15/21 [History Last Taken Unknown] dabigatran etexilate 110 mg capsule 110 mg PO BID 02/15/21 [History Last Taken Unknown] prednisone 10 mg tablet 10 mg PO QDAY 12 Days #30 tab 02/15/21 [Rx Last Taken Unknown] tizanidine 2 mg capsule 2 mg PO QHS PRN #20 cap 02/15/21 [Rx Last Taken Unknown] Allergy/AdvReac Type Severity Reaction Status Date / Time furosemide [From Lasix] Allergy Hives Verified 02/24/21 11:32 Iodinated Contrast Media Allergy Hives Verified 02/24/21 11:32 ondansetron [From Zofran] Allergy Hives Verified 02/24/21 11:32 propranolol Allergy Angioedema Verified 02/24/21 11:32 sumatriptan [From Imitrex] Allergy Other Verified 02/24/21 11:32 prochlorperazine AdvReac Other Verified 02/24/21 11:32 [From Compazine] Surgical History H/O tubal ligation History of cholecystectomy Hx of cholecystectomy Social History Smoking Status: Never smoker ROS ROS ED Constitutional Constitutional ED: Denies chills or fever(s) Eyes Eyes: Denies blurry vision or change in vision ENT ENT ED: Denies rhinorrhea or sore throat Cardiovascular Cardiovascular: Denies chest pain or palpitations Respiratory/Chest Respiratory/Chest: Denies cough or dyspnea Gastrointestinal Gastrointestinal: Denies nausea or vomiting Genitourinary Genitourinary ED: Denies dysuria or hematuria Musculoskeletal Musculoskeletal: Denies back pain or neck pain Integumentary Denies abscess or rash Neurologic Neurologic: Denies headache(s) or weakness Allergic/Immunologic Allergic/Immunologic ED: Denies mouth swelling or urticaria EXAM Physical Exam Const Vital Signs: 02/24/21 11:32 Temperature 97.7 F L Temperature Source Temporal Pulse Rate 103 H Respiratory Rate 16 Blood Pressure 128/80 H Blood Pressure Mean 96 Pulse Ox 97 Oxygen Delivery Method Room Air Positive well nourished, well developed and obese General Appearance ED: well developed Nutritional Appearance: obese HEENT Reports moist mucous membranes Neck full ROM Extremity Extremity Narrative: There is tenderness and mild edema over the left calf. There is no ecchymosis. There is no deformity noted. There is good range of motion. There is no tenderness over the thigh. Pedal pulses are equal bilaterally. Capillary refill is less than 2 seconds in all digits. Sensation was intact to light touch bilaterally in the lower extremities. Neuro oriented x3, CN's II-XII intact bilaterally, moves all extremities and no sensory deficits noted Sensorium / Orientation: alert Motor Exam: strength 5/5 throughout Psych mental status grossly normal MDM MDM MDM Narrative Medical decision making narrative: Venous duplex of the left lower extremity was obtained. There is no evidence of DVT. Patient was advised of her findings. Patient was instructed to keep her leg elevated. Patient was instructed to follow-up with her primary care physician in 5 to 7 days. Patient was instructed to take Tylenol or ibuprofen as needed for pain. Patient understood and was agreeable with the plan. All questions were answered. Radiography Diagnostic Testing: Radiology Impression Venous Doppler Study 02/24/21 12:00 Interpretation Summary There is no evidence of left lower extremity deep vein thrombosis. Left great saphenous vein appears patent and compressible segmentally. Ordering Physician: Justyn Pendleton Referring Physician: MD Ki Weldon Performed By: Millie Reed RVT Discharge Plan Triage Chief Complaint: Lower Extremity Injury ED Provider: Justyn Pendleton Dx/Rx/DC Orders Clinical Impression: Strain of left calf muscle Instructions: ED Muscle Strain, Extremity Prescriptions: No Action amoxicillin-pot clavulanate [Augmentin] 875-125 mg tablet 1 tab PO BID RF: 0 Pradaxa 110 mg capsule 110 mg PO BID RF: 0 tizanidine 2 mg capsule 2 mg PO QHS PRN (Reason: muscle spasticity) Qty: 20 RF: 0 prednisone 10 mg tablet 10 mg PO QDAY 12 Days Qty: 30 RF: 0 topiramate 200 MG tablet 200 mg PO BID RF: 0 vitamin B complex 1 EACH capsule 2 ea PO DAILY RF: 0 promethazine 25 MG suppository 25 mg RECTAL Q6H PRN PRN (Reason: Nausea) Qty: 6 RF: 0 fluoxetine 20 MG capsule 60 mg PO DAILY RF: 0 promethazine 25 MG tablet 25 mg PO Q6H PRN PRN (Reason: Nausea) Qty: 10 RF: 0 rizatriptan 10 mg tablet 10 mg PO ONCE PRN (Reason: Migraine Headache) RF: 0 Primary Care Provider: Ki Weldon Referrals: Ki Weldon MD [Primary Care Provider] - 3-5 Days Disposition Disposition: Home, Self Care Discharge Date/Time: 02/24/21 14:16
== END 2021-02-24 14:16 | disposition home or self-care (01) ==
PROVIDERS: Emergency Provider Emergency Medicine; PCP Family Medicine
DX: S86.112A Strain of other muscle(s) and tendon(s) of posterior muscle group at lower leg level, left leg, initial encounter (principal); E66.9 Obesity, unspecified; F41.9 Anxiety disorder, unspecified; F32.9 Major depressive disorder, single episode, unspecified; Z79.899 Other long term (current) drug therapy; Z86.718 Personal history of other venous thrombosis and embolism; X58.XXXA Exposure to other specified factors, initial encounter; Y93.89 Activity, other specified; Y92.89 Other specified places as the place of occurrence of the external cause; Y99.8 Other external cause status
CPT/HCPCS: 93971; 99282

== ENCOUNTER 2021-03-30 04:08 | Emergency (ER) | payer MEDICAID, SELFPAY ==
[2021-03-30 04:13] VITALS: BP 125/79; PULSE 91; RESP 15; TEMP 36.9; O2SAT 100; BMI 41.5
--- NOTE | 2021-03-30 04:18 | NURSING ---
patient states already had covid vaccines
--- NOTE | 2021-03-30 04:25 | ED.RN ---
patient states she wants to talk to the doctor before we take the blood via IV and is okay with the ecg first, in meantime,
--- NOTE | 2021-03-30 04:36 | EKG12_ITS ---
Test Reason : CP Blood Pressure : / mmHG Vent. Rate : 087 BPM Atrial Rate : 087 BPM P-R Int : 180 ms QRS Dur : 092 ms QT Int : 374 ms P-R-T Axes : 038 015 027 degrees QTc Int : 450 ms Normal sinus rhythm Normal ECG Confirmed by CLEO HOLLIS, ROSE ([id number]), sound editor ADRIANNA DOZIER ([id number]) on 03/30/2021 10:41:55 AM Referred By: BB Confirmed By:ROSE GALLO MD
--- NOTE | 2021-03-30 04:39 | ED.VIS.CHEST ---
HPI History of Present Illness Chief Complaint: Chest Pain Informant: patient Onset/Context/Timing Onset: Hours (1-2) Activity at onset: sudden and sleep (Woke her up) Timing: Continuous Quality: Positive for Sharp and Stabbing Location: Substernal (More cranially without radiation) Current Severity: Moderate Maximum Severity: Moderate Worsened By: Nothing Relieved By: Nothing Associated Symptoms: Negative for Nausea, Vomiting, Diaphoresis, Dyspnea, Cough, Fever, Lightheadedness and Palpitations Narrative Narrative: Patient with factor V Leiden disorder and history of pulmonary embolus and DVT presenting with chest discomfort that woke her up from sleep, mildly pleuritic, no dyspnea. No palpitations or near syncope or syncope. She has noted that lately she has noticed some painful redness getting worse on her left lower leg for the last day or 2. She has had issues with sleepwalking in recent months, and as result is bumping into things and in conjunction with her primary care physician she decided to stop taking her anticoagulants about 1 month ago because of the risk of head injury. She understands that her risk of recurrent DVT and PE is high, and states if she has them again then she will just go back on anticoagulants. [facility] Medical History Anxiety Depression DVT (deep venous thrombosis) Factor V Leiden Kidney stones Ovarian cyst Pulmonary embolism TIA (transient ischemic attack) Home Medications topiramate 200 mg PO BID 09/10/18 [History Last Taken 11/22/19 22:00] vitamin B complex 2 ea PO DAILY 09/18/19 [History Last Taken 11/22/19 08:00] fluoxetine 40 mg PO DAILY 12/24/19 [History Last Taken Unknown] rizatriptan [Maxalt] 10 mg PO ONCE PRN 02/03/21 [History Last Taken Unknown] tizanidine 2 mg capsule 2 mg PO QHS PRN #20 cap 02/15/21 [Rx Last Taken Unknown] dabigatran etexilate [Pradaxa] 150 mg PO BID #60 cap 03/30/21 [Rx Last Taken Unknown] Allergy/AdvReac Type Severity Reaction Status Date / Time furosemide [From Lasix] Allergy Hives Verified 03/30/21 04:19 Iodinated Contrast Media Allergy Hives Verified 03/30/21 04:19 ondansetron [From Zofran] Allergy Hives Verified 03/30/21 04:19 propranolol Allergy Angioedema Verified 03/30/21 04:19 sumatriptan [From Imitrex] Allergy Other Verified 03/30/21 04:19 prochlorperazine AdvReac Other Verified 03/30/21 04:19 [From Compazine] Surgical History H/O tubal ligation History of cholecystectomy Hx of cholecystectomy Social History Smoking Status: Never smoker ROS ROS ED Constitutional Constitutional ED: Denies chills or fever(s) Eyes Eyes: Denies change in vision or diplopia ENT ENT ED: Denies rhinorrhea or sore throat Cardiovascular Cardiovascular: Denies chest pain or palpitations Respiratory/Chest Respiratory/Chest: Denies cough or dyspnea Gastrointestinal Gastrointestinal: Denies abdominal pain, diarrhea, nausea or vomiting Genitourinary Genitourinary ED: Denies dysuria or hematuria Musculoskeletal Musculoskeletal: Denies back pain or neck pain Integumentary Denies abscess or rash Neurologic Neurologic: Denies headache(s), paresthesias or weakness Psychiatric Psychiatric: Denies anxiety or suicidal thoughts EXAM Physical Exam Const Vital Signs: 03/30/21 04:13 Temperature 98.4 F Temperature Source Temporal Pulse Rate 91 Respiratory Rate 15 Blood Pressure 125/79 H Blood Pressure Mean 94 Pulse Ox 100 Oxygen Delivery Method Room Air Positive well nourished, well developed and obese General Appearance ED: well developed and NAD Nutritional Appearance: obese HEENT Reports moist mucous membranes normocephalic and atraumatic Eyes PERRL and EOMs intact bilaterally Neck full ROM and supple Resp normal respiratory effort and clear to auscultation bilaterally Cardio regular rate, regular rhythm and no murmurs Rate: Negative for tachycardic GI non-tender and non-distended Auscultation: normoactive bowel sounds Palpation: soft Back/Spine no CVA tenderness General Back: other FROM Extremity Extremity Narrative: Patient has tender erythema left lower leg, from about mid leg down toward the ankle but not including the joint. No palpable cords. It is blanching and tender, takes up a good amount of the medial surface of the calf. No nidus for infection. No abscess or fluctuance. No subcutaneous emphysema. Good range of motion of the ankle & knee without difficulty. General Extremety ED: Yes tenderness; Negative for edema or pulses abnormal General Extremity: Negative for edema or pulses abnormal Neuro oriented x3, CN's II-XII intact bilaterally and no sensory deficits noted Sensorium / Orientation: awake and alert Motor Exam: strength 5/5 throughout Skin no rashes or lesions noted and no wounds Heart Score History: Slightly/Non-Suspicious ECG: Normal Age: </= 45 years Risk Factors: No Risk Factors Troponin: </= Normal Limit Score: 0 MDM MDM MDM Narrative Medical decision making narrative: Labs as below are noted, EKG and troponin are normal. Her chest x-ray is normal. Given that she woke up with the pain all of a sudden, she has a pulse ox of 100 on room air, is not tachycardic or dyspneic, and the discomfort is nonlateralizing central, my suspicion is that this is more likely esophageal discomfort and less likely pulmonary embolus although she does have a significant history of them. Moreover, I do not feel it is worth subjecting her to the risk of an allergic reaction from the IV dye that she has a history of. I ordered Toradol and a GI cocktail, she states that the medicines did not help her pain at all, which is common when she is here with chest discomfort, partly why she has a care plan here in place. With regards to her left lower extremity, the appearance is that of cellulitis although certainly could be a DVT. The patient presents early in the morning when ultrasound is not available. I initially gave her the option of obtaining the ultrasound in a couple hours when the techs arrived, versus getting empiric Lovenox and returning for the ultrasound as an outpatient. Her response to this option was that she refused the test altogether, and said that she would just go back on her Pradaxa because this is the appearance and feeling of my leg every time I get a DVT so I know it is a DVT. She is requesting another prescription for Pradaxa, she indicates she does have some at home. She was given Lovenox 150 mg, which is 1.5 mg/kg to give her a 24 hours worth of coverage and instructions when to start the Pradaxa again which is what she was most recently on and seems to work best for her since she had breakthrough DVTs while on Xarelto. Lab Data Attestation: I reviewed the patient's lab results. Labs: Laboratory Results - last 24 hr 03/30/21 03/30/21 05:22 05:30 WBC 6.0 RBC 3.95 L Hgb 10.6 L Hct 32.3 L MCV 81.8 MCH 26.8 L MCHC 32.8 RDW Std Deviation 46.3 H RDW Coeff of Millie 15.4 H Plt Count 284 MPV 8.4 Immature Gran % (Auto) 0.300 Neut % (Auto) 62.7 Lymph % (Auto) 28.2 [place] % (Auto) 6.5 Eos % (Auto) 2.0 Baso % (Auto) 0.3 Absolute Neuts (auto) 3.8 Absolute Lymphs (auto) 1.69 Nucleated RBC % 0 Sodium 137 Potassium 3.6 Chloride 109 H Carbon Dioxide 25.0 Anion Gap 3 L BUN 15 Creatinine 0.50 L Estim Creat Clear Calc 125.28 Est GFR (MDRD) Af Amer 189 Est GFR (MDRD) Non-Af 156 BUN/Creatinine Ratio 30.2 H Glucose 160 H Calcium 8.6 Troponin I High Sens 4 Radiography Chest X-Ray - ED: 1 View, Read by ED Physician, No Acute Disease and No Infiltrates EKG Initial EKG: Attestation: I personally reviewed and interpreted this EKG as follows: Interpretation: Sinus Rhythm and No Acute Injury Pattern Comments: Sinus rhythm at 87, normal EKG. No S1Q3T3. Discharge Plan Triage Chief Complaint: Chest Pain ED Provider: Emir Duval Dx/Rx/DC Orders Clinical Impression: Pain of left lower leg, Factor V Leiden, Atypical chest pain Instructions: ED Deep Vein Thrombosis (DVT) Prescriptions: New Pradaxa 150 mg capsule 150 mg PO BID Qty: 60 RF: 0 No Action tizanidine 2 mg capsule 2 mg PO QHS PRN (Reason: muscle spasticity) Qty: 20 RF: 0 topiramate 200 MG tablet 200 mg PO BID RF: 0 vitamin B complex 1 EACH capsule 2 ea PO DAILY RF: 0 fluoxetine 20 MG capsule 40 mg PO DAILY RF: 0 rizatriptan [Maxalt] 10 mg tablet 10 mg PO ONCE PRN (Reason: Migraine Headache) RF: 0 Primary Care Provider: Ki Weldon Referrals: Ki Weldon MD [Primary Care Provider] - 3-5 Days Activity Restrictions/Additional Instructions: If you change your mind and decide to get your ultrasound to confirm presence of DVT, radiology/vascular department may call you to schedule. Your Lovenox dose is for 24 hours, covering you until 630-7 AM on 03/31. Try to start your Pradaxa between 5-7 AM that day. Disposition Disposition: Home, Self Care
[2021-03-30 05:37] LABS: Absolute Lymphocyte Count 1.69 X10^3/uL (0.83-4.51); Absolute Neutrophil Count 3.8 X10^3/uL (2.0-7.7); Basophil# 0.02 X10^3/uL; Basophil% 0.3 % (0-1); Eosinophil# 0.12 X10^3/uL; Hematocrit 32.3 % (37-47); Hemoglobin 10.6 g/dL (12.0-15.0); Lymphocyte # 1.69 X10^3/ul (0.83-4.51); Lymphocyte % 28.2 % (19-41); Mean Corp Hgb Conc 32.8 g/dL (32-36); Mean Corpuscular Hgb 26.8 pg (27.0-32.0); Mean Corpuscular Volume 81.8 fL (81-99); Mean Platelet Vol. 8.4 fl (6.2-12.0); Monocyte# 0.39 X10^3/uL; Monocyte% 6.5 % (0-10); NRBC Flagged by Analyzer 0 % (0-5); Neutrophil # 3.76 X10^3/uL (2.7-7.7); Neutrophil % 62.7 % (47-70); Platelet Count 284 K/mm3 (150-450); RBC Distribution Width CV 15.4 % (11.6-14.6); RBC Distribution Width SD 46.3 fl (35.1-43.9); Red Blood Count 3.95 M/mm3 (4.2-5.4)
--- NOTE | 2021-03-30 05:45 | RAD_ITS ---
STUDY: X-RAY CHEST REASON FOR EXAM: Female, 31 years old. chest pain TECHNIQUE: Single AP portable view of the chest. COMPARISON: 09/18/2020 FINDINGS: There are superimposed monitor leads. Superimposed loop recorder. Stable mild elevation right hemidiaphragm. Stable low lung volume. There is no demonstrated pleural abnormality. Normal size heart. Normal mediastinum and teja. Normal visualized pulmonary arteries. Normal visualized aortic arch and descending thoracic aorta. Obesity. The spine and upper abdominal soft tissues are obscured. RAD/Chest 1 View (Portable) IMPRESSION: No acute cardiopulmonary disease. No significant interval change. Electronically Signed: Kayla Torres MD at 8:03 EDT , Service support ,
[2021-03-30 05:54] LABS: Anion Gap 3 (5-15); BUN 15 mg/dL (7-18); BUN/Creat Ratio 30.2 RATIO (10-20); Calcium,Total 8.6 mg/dL (8.5-10.1); Chloride 109 mmol/L (98-107); EST Glomerular Filtration Rate 156 mL/min (>60); Est Glom Filt Rate - Afr Amer 189 mL/min (>60); Estimated Creatinine Clearance 125.28 ml/min; Glucose 160 mg/dL (74-106); Potassium 3.6 mmol/L (3.5-5.1); Sodium Level 137 mmol/L (136-145); Troponin-I HS 4 pg/mL (3.0-54.0)
[2021-03-30] MEDS: Mag Hydrox/Al Hydrox/Simeth 30 ML UDC PO (06:14)
[2021-03-30 06:38] VITALS: BP 119/87; PULSE 71; RESP 16; O2SAT 98
== END 2021-03-30 06:39 | disposition home or self-care (01) ==
PROVIDERS: Emergency Provider Emergency Medicine; PCP Family Medicine
DX: R07.89 Other chest pain (principal); M79.662 Pain in left lower leg; D68.51 Activated protein C resistance; F41.9 Anxiety disorder, unspecified; F32.9 Major depressive disorder, single episode, unspecified; E66.9 Obesity, unspecified; Z86.711 Personal history of pulmonary embolism; Z86.718 Personal history of other venous thrombosis and embolism; Z79.899 Other long term (current) drug therapy
CPT/HCPCS: 71045; 80048; 84484; 85025; 93005; 99284

== ENCOUNTER 2021-04-14 16:20 | Emergency (ER) | payer MEDICAID, SELFPAY ==
[2021-04-14 16:21] VITALS: BP 120/71; PULSE 98; RESP 16; TEMP 36.1; O2SAT 97; BMI 41.0
--- NOTE | 2021-04-14 17:00 | CM.ED ---
SOCIAL WORK Active ED Care Plan Reviewed ED Care Plan with physician. This worker to remain available for needs. Sara Beasley, SENIOR CREDIT ANALYST, ANALYTICAL MANAGER
--- NOTE | 2021-04-14 17:30 | EX.ED.VIS.HA ---
HPI History of Present Illness Chief Complaint: Headache Informant: patient Onset/Context/Timing Onset: Days Context: Gradual Timing: Continuous Quality -Headache: Positive for Similar Prior Headaches and Sharp Current Severity: Moderate Maximum Severity: Moderate Associated Symptoms/Injury Associated Symptoms: Positive for Nausea and Photophobia; Negative for Fever, Vomiting, Sore Throat, Sinus Pressure, Numbness, Tingling, Preceding Aura, Visual Changes, Blurred Vision and Visual Loss Injury - FALL: Negative for Direct Trauma, Fall and Assault Narrative Narrative: 31-year-old female history of migraine headaches. Also history of factor V Leiden for which she is on Pradaxa and diabetes. Patient states she has had a headache throughout a week is on her right forehead. Positive photophobia with nausea no vomiting or diarrhea no fever or trauma. Says similar to her other migraine headaches. Prior similar symptoms: Yes Recent Illness/Hospitalization: No PFSH PFSH Medical History Anxiety Depression DVT (deep venous thrombosis) Factor V Leiden Kidney stones Ovarian cyst Pulmonary embolism TIA (transient ischemic attack) Home Medications topiramate 200 mg PO BID 09/10/18 [History Last Taken 11/22/19 22:00] vitamin B complex 2 ea PO DAILY 09/18/19 [History Last Taken 11/22/19 08:00] fluoxetine 40 mg PO DAILY 12/24/19 [History Last Taken Unknown] rizatriptan [Maxalt] 10 mg PO ONCE PRN 02/03/21 [History Last Taken Unknown] tizanidine 2 mg capsule 2 mg PO QHS PRN #20 cap 02/15/21 [Rx Last Taken Unknown] dabigatran etexilate [Pradaxa] 150 mg PO BID #60 cap 03/30/21 [Rx Last Taken Unknown] Allergy/AdvReac Type Severity Reaction Status Date / Time furosemide [From Lasix] Allergy Hives Verified 04/14/21 16:23 Iodinated Contrast Media Allergy Hives Verified 04/14/21 16:23 ondansetron [From Zofran] Allergy Hives Verified 04/14/21 16:23 propranolol Allergy Angioedema Verified 04/14/21 16:23 sumatriptan [From Imitrex] Allergy Other Verified 04/14/21 16:23 prochlorperazine AdvReac Other Verified 04/14/21 16:23 [From Compazine] Surgical History H/O tubal ligation History of cholecystectomy Hx of cholecystectomy Social History Smoking Status: Never smoker ROS ROS ED ROS Narrative 22-year-old female complaint headache. Associated nausea. No fever. Review of Systems ROS Unobtainable: Denies due to encephalopathy Constitutional Constitutional ED: Denies chills or fever(s) Eyes Eyes: Denies blurry vision or change in vision ENT ENT ED: Denies ear pain or sore throat Cardiovascular Cardiovascular: Denies chest pain Respiratory/Chest Respiratory/Chest: Denies cough or dyspnea Gastrointestinal Gastrointestinal: Reports nausea; Denies abdominal pain, diarrhea or vomiting Genitourinary Genitourinary ED: Denies dysuria Musculoskeletal Musculoskeletal: Denies myalgias Integumentary Denies rash Neurologic Neurologic: Reports headache(s); Denies paresthesias or weakness Psychiatric Psychiatric: Denies depression Endocrine Endocrinology: Denies polyuria Hematologic/Lymphatic Hematologic/Lymphatic: Denies easy bruising Allergic/Immunologic Allergic/Immunologic ED: Denies urticaria EXAM Physical Exam Narrative Exam Narrative: 22-year-old female no acute distress vital signs stable afebrile. Blood pressure 120/71. HEENT exam unremarkable atraumatic. Pupils round reactive light. Motions are intact. No facial droop. Normal speech. Neck nontender no meningismus. Full range of motion. Lungs clear to auscultation. Heart regular rhythm. Abdomen soft nontender. Moving all 4 extremities. Neurovascular intact. Equal symmetrical touch up painter finger dorsi plantarflexion intact. Fingertip to nose within normal limits neurologic exam unremarkable no focal motor deficits. Back nontender. Const Vital Signs: 04/14/21 16:21 04/14/21 18:22 Temperature 96.9 F L Temperature Source Temporal Pulse Rate 98 74 Respiratory Rate 16 18 Blood Pressure 120/71 118/68 Blood Pressure Mean 87 84 Pulse Ox 97 99 Oxygen Delivery Method Room Air Positive well nourished, well developed and obese; Negative for cachectic, contractures or unkempt General Appearance ED: well developed and NAD; Negative for unkempt, cachectic, contractures, cyanotic, diaphoretic or pallor Nutritional Appearance: obese; Negative for cachectic HEENT Reports normocephalic and moist mucous membranes; Denies dry mucous membranes atraumatic; Negative for trauma or tenderness Mouth ED: No dry mucous membranes Mouth: No dry mucous membranes Eyes PERRL and EOMs intact bilaterally General Eye ED: Negative for pale conjunctiva or scleral icterus Neck no lymphadenopathy, supple, no meningeal signs and no JVD General: Negative for tenderness Resp normal respiratory effort and clear to auscultation bilaterally Auscultation: Negative for rales, rhonchi or wheezes Cardio regular rate, regular rhythm, S1 normal heart sound, S2 normal heart sound and no murmurs GI non-tender and non-distended Auscultation: normoactive bowel sounds Palpation: soft; Negative for firm, tender, guarding or rigid Back/Spine no CVA tenderness General Back: Negative for CVA tenderness or tenderness Cervical Spine: Negative for cervical spine tenderness Thoracic Spine / Upper Back: Negative for thoracic spinal tenderness Lumbar Spine / Lower Back: Negative for lumbar spinal tenderness Extremity normal to inspection and full ROM; Negative for normal capillary refill General Extremety ED: Negative for edema or tenderness General Extremity: Negative for edema Neuro oriented x3, CN's II-XII intact bilaterally and No no sensory deficits noted Sensorium / Orientation: awake, alert, oriented to person, oriented to place and oriented to time; Negative for orientation impaired, lethargic or stuporous Coordination / Balance: [id number] test normal Motor Exam: strength 5/5 throughout Psych mental status grossly normal Appearance: Negative for unkempt Skin General Skin Exam: Negative for elasticity normal, turgor normal, jaundice or pallor Lesions: no lesions Rashes: no rashes [facility] MDM MDM Narrative Medical decision making narrative: Young female with recurrent headache consistent with her prior migraine headaches. She is on the blood thinner Pradaxa. Hence I would not give her any Toradol. She will be treated with she states normal use Phenergan because Compazine and Zofran given shakes. She also be treated with IV fluids and Benadryl. Repeat exam remains normal. Patient's headache not resolved. She will be given additional Phenergan and Benadryl. Patient does have a care plan. I explained to her she could not receive any type of narcotic pain medication. Discharge Plan Triage Chief Complaint: Headache ED Provider: Elian Arteaga Dx/Rx/DC Orders Clinical Impression: Migraines Instructions: ED, Migraine (Classical) Prescriptions: No Action tizanidine 2 mg capsule 2 mg PO QHS PRN (Reason: muscle spasticity) Qty: 20 RF: 0 topiramate 200 MG tablet 200 mg PO BID RF: 0 vitamin B complex 1 EACH capsule 2 ea PO DAILY RF: 0 fluoxetine 20 MG capsule 40 mg PO DAILY RF: 0 rizatriptan [Maxalt] 10 mg tablet 10 mg PO ONCE PRN (Reason: Migraine Headache) RF: 0 Pradaxa 150 mg capsule 150 mg PO BID Qty: 60 RF: 0 Primary Care Provider: Ki Weldon Referrals: Ki Weldon MD [Primary Care Provider] - 3-5 Days if not improving Activity Restrictions/Additional Instructions: Plenty of fluids and rest. Tylenol and Benadryl for your headache. Follow-up with your doctor. Disposition Disposition: Home, Self Care
[2021-04-14] MEDS: proMETHazine 25 MG/ML Syringe 12.5 MG IV ×2 (17:49→19:39)
[2021-04-14] MEDS: DiphenhydrAMINE 50 MG/ML Syringe IV (17:49)
[2021-04-14] MEDS: 0.9% Normal Saline 1,000 ML 1000 ML IV (17:49)
[2021-04-14 18:22] VITALS: BP 118/68; PULSE 74; RESP 18; O2SAT 99
[2021-04-14] MEDS: DiphenhydrAMINE 50 MG/ML Syringe 25 MG IV (19:39)
== END 2021-04-14 19:51 | disposition home or self-care (01) ==
PROVIDERS: Emergency Provider Emergency Medicine; PCP Family Medicine
DX: G43.909 Migraine, unspecified, not intractable, without status migrainosus (principal); E66.9 Obesity, unspecified; F32.9 Major depressive disorder, single episode, unspecified; Z79.01 Long term (current) use of anticoagulants; Z79.899 Other long term (current) drug therapy
CPT/HCPCS: 96374; 96375; 96376; 99284; J7030; A4216

== ENCOUNTER 2021-06-06 12:32 | Emergency (ER) | payer MEDICAID, SELFPAY ==
[2021-06-06 12:34] VITALS: BP 115/66; PULSE 118; RESP 18; TEMP 35.8; O2SAT 98; BMI 38.7
--- NOTE | 2021-06-06 12:52 | MRI_ITS ---
HISTORY: 1 set of images only Pt refused to continue even with meds* fall, pain EXAMINATION: MR Spine Lumbar W/O Contrast TECHNIQUE: Single sequence of sagittal T2 weighted MR images of the lumbar spine. IV Contrast dosage and agent: None COMPARISON: 08/06/20 FINDINGS: VERTEBRAE: Vertebral body heights are preserved. No acute fracture or pathologic marrow replacement. VERTEBRAL ALIGNMENT: No spondylolisthesis. There is preservation of the normal lumbar lordosis. CORD: Normal position and signal intensity of the conus medullaris. L1/L2: Normal disc height and morphology. L2/L3: Normal disc height and morphology. L3/L4: Normal disc height and morphology. L4/L5: Normal disc height and morphology. L5/S1: Normal disc height and morphology. IMPRESSION: Limited examination without evidence of acute compression fracture or significant central stenosis. at 1601 Reported and signed by: Mario Martinez MD Electronically Signed: Mario Martinez MD at 16:00 EST Tel , Service support , MRI/Spine Lumbar (Routine)
--- NOTE | 2021-06-06 12:57 | ED.VIS.BACK ---
HPI History of Present Illness Chief Complaint: Back Informant: patient Onset/Context/Timing Onset: Yesterday Context: Gradual Onset Injury: direct trauma and fall Timing: Continuous Quality: Sharp Location: Lumbar Current Severity: Mild Maximum Severity: Mild Worsened by: improves with Movement Relieved by: Remaining Still Associated Symptoms Associated Symptoms: Numbness, Tingling and Urinary Incontinence; Negative for Fever, Abdominal Pain, Dysuria, Unable to Ambulate, Unable to Transfer, Urinary Retention, Constipation and Fecal Incontinence Narrative Narrative: 31-year-old female history of factor V Leiden but currently on no blood thinners and has not been for months. Also diabetes and polycystic ovarian syndrome. Patient had a prior , cholecystectomy, tubal ligation and left ovary removed. She never had back surgery. States she fell down about 6 steps and is having lower back pain and has had some intermittent urinary incontinence. States she has an overactive bladder and has had incontinence before but not like this. She was seen in urgent care they did x-rays and sent her in to rule out cauda equina. She denies fever. She is able to walk. Prior similar symptoms: No Recent Illness/Hospitalization: No PFSH PFSH Medical History Anxiety Depression DVT (deep venous thrombosis) Factor V Leiden Kidney stones Ovarian cyst Pulmonary embolism TIA (transient ischemic attack) Home Medications topiramate 200 mg PO BID 09/10/18 [History Last Taken 11/22/19 22:00] vitamin B complex 2 ea PO DAILY 09/18/19 [History Last Taken 11/22/19 08:00] fluoxetine 40 mg PO DAILY 12/24/19 [History Last Taken Unknown] rizatriptan [Maxalt] 10 mg PO ONCE PRN 02/03/21 [History Last Taken Unknown] tizanidine 2 mg capsule 2 mg PO QHS PRN #20 cap 02/15/21 [Rx Last Taken Unknown] dabigatran etexilate [Pradaxa] 150 mg PO BID #60 cap 03/30/21 [Rx Last Taken Unknown] buspirone mg 06/06/21 [History Last Taken Unknown] prazosin 06/06/21 [History Last Taken Unknown] prednisone 06/06/21 [History Last Taken Unknown] promethazine 06/06/21 [History Last Taken Unknown] rizatriptan mg 06/06/21 [History Last Taken Unknown] zolpidem 06/06/21 [History Last Taken Unknown] Allergy/AdvReac Type Severity Reaction Status Date / Time furosemide [From Lasix] Allergy Hives Verified 06/06/21 12:35 Iodinated Contrast Media Allergy Hives Verified 06/06/21 12:35 ondansetron [From Zofran] Allergy Hives Verified 06/06/21 12:35 propranolol Allergy Angioedema Verified 06/06/21 12:35 sumatriptan [From Imitrex] Allergy Other Verified 06/06/21 12:35 prochlorperazine AdvReac Other Verified 06/06/21 12:35 [From Compazine] Surgical History H/O tubal ligation History of cholecystectomy Hx of cholecystectomy Social History Smoking Status: Never smoker ROS ROS ED ROS Narrative Denies recent illness. Review of Systems ROS Unobtainable: Denies due to encephalopathy Constitutional Constitutional ED: Denies fever(s) Eyes Eyes: Denies change in vision ENT ENT ED: Denies ear pain Cardiovascular Cardiovascular: Denies chest pain Respiratory/Chest Respiratory/Chest: Denies dyspnea Gastrointestinal Gastrointestinal: Denies abdominal pain, diarrhea, nausea or vomiting Genitourinary Genitourinary ED: Denies dysuria or hematuria Musculoskeletal Musculoskeletal: Reports back pain; Denies myalgias Integumentary Denies rash Neurologic Neurologic: Denies headache(s) Psychiatric Psychiatric: Denies depression Endocrine Endocrinology: Denies polyuria Hematologic/Lymphatic Hematologic/Lymphatic: Denies easy bruising Allergic/Immunologic Allergic/Immunologic ED: Denies urticaria EXAM Physical Exam Narrative Exam Narrative: 11-year-old female no acute distress vital signs stable afebrile. HEENT exam unremarkable atraumatic. Pupils round reactive light. C-spine nontender. Trachea midline. Lungs clear to auscultation bilaterally. Heart regular rhythm no murmur. Chest wall nontender. Abdomen soft nontender normal bowel sounds no peritoneal signs. Extremities moves all 4. She has no saddle anesthesia. She has dorsi and plantar flexion bilaterally both lower extremities. 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 Back she has lumbar spine tenderness. There is no ecchymosis or bruising. No signs of trauma externally. Neurologically she is awake and alert. She complains of decreased sensation in her medial thighs sensations present she has had decreased in her baseline. There is no motor deficits. Const Vital Signs: 06/06/21 12:34 06/06/21 14:56 Temperature 96.5 F L Temperature Source Temporal Pulse Rate 118 H 84 Respiratory Rate 18 Blood Pressure 115/66 133/109 H Blood Pressure Mean 82 117 Pulse Ox 98 94 Oxygen Delivery Method Room Air Room Air Positive well nourished, well developed and obese; Negative for cachectic, contractures or unkempt General Appearance ED: well developed and NAD; Negative for unkempt, cachectic, contractures or pallor Nutritional Appearance: obese; Negative for cachectic HEENT Reports moist mucous membranes Negative for trauma or tenderness Eyes PERRL and EOMs intact bilaterally General Eye ED: Negative for pale conjunctiva or scleral icterus Neck no lymphadenopathy, supple and no JVD General: Negative for tenderness Resp normal respiratory effort and clear to auscultation bilaterally Effort and Inspection: Negative for pain with movement or other Cardio regular rate, regular rhythm, S1 normal heart sound, S2 normal heart sound and no murmurs GI normal to inspection, nondistended, normoactive bowel sounds, soft to palpation, non-tender, non-distended and no masses Inspection: Negative for abdominal distention Palpation: Negative for tender, guarding or rebound tenderness present Back/Spine normal to inspection; Negative for no thoracic nor lumbar tenderness Back/Spine Narrative: Tenderness of the lumbar spine. General Back: Negative for CVA tenderness or scar(s) Cervical Spine: Negative for cervical spine tenderness and Negative for paracervical muscle tenderness Thoracic Spine / Upper Back: paraspinal muscle tenderness Lumbar Spine / Lower Back: ROM limited and straight leg raise negative bilaterally; Negative for straight leg raise positive right or straight leg raise positive - left Extremity normal to inspection General Extremety ED: Negative for edema or tenderness General Extremity: Negative for edema Psych mental status grossly normal Appearance: Negative for unkempt Attitude: No agitated Mood & Affect: Negative for depressed or tearful Skin no rashes or lesions noted and no wounds General Skin Exam: Negative for jaundice or pallor MDM MDM MDM Narrative Medical decision making narrative: 31-year-old female has a care plan she will be given p.o. Motrin for pain. Presents from an urgent care they want to rule out cauda equina. She did fall slid down about 6 steps and is complaining of intermittent urinary incontinence. Subjectively she has decreased sensation in her thighs. But she does have sensation. Dorsi and plantar flexion intact. Patient be given Motrin for pain. I have ordered a lumbar spine of her lower back without contrast. They cannot do that until around 3 p.m. patient was pretreated with Ativan IV 2 mg and then mild in the MRI suite was given 50 mg IV Benadryl. She is down are being monitored by radiology nursing. Patient be turned over to the afternoon physician to evaluate the patient's MRI results. Clinically I think there is a much greater chance that this will not be cauda equina patient be able be discharged home with Tylenol and Motrin for pain. Radiography X-Ray: LS SPine, Read by ED Physician, Normal, No Fracture and Normal Bony Alignment Diagnostic Testing: LS-spine films the patient brought in from and out patient urgent care facility. They will load him into PACS for me I reviewed him AP and lateral views were unremarkable. There was no fracture. No compression fracture. No acute abnormality seen interpreted by myself. Discharge Plan Triage Chief Complaint: Back ED Provider: Elian Arteaga Dx/Rx/DC Orders Clinical Impression: Fall, Lumbar contusion Instructions: ED Back Contusion Prescriptions: No Action tizanidine 2 mg capsule 2 mg PO QHS PRN (Reason: muscle spasticity) Qty: 20 RF: 0 topiramate 200 MG tablet 200 mg PO BID RF: 0 vitamin B complex 1 EACH capsule 2 ea PO DAILY RF: 0 fluoxetine 20 MG capsule 40 mg PO DAILY RF: 0 rizatriptan [Maxalt] 10 mg tablet 10 mg PO ONCE PRN (Reason: Migraine Headache) RF: 0 Pradaxa 150 mg capsule 150 mg PO BID Qty: 60 RF: 0 prednisone 10 mg tablet RF: 0 rizatriptan 10 mg tablet RF: 0 prazosin 5 mg capsule RF: 0 promethazine 25 mg tablet RF: 0 zolpidem 5 mg tablet RF: 0 buspirone 15 mg tablet RF: 0 Primary Care Provider: Ki Weldon Referrals: Ki Weldon MD [Primary Care Provider] - 3-5 Days if not improving Activity Restrictions/Additional Instructions: Ice to your back to decrease pain and inflammation Motrin and Tylenol for pain Follow-up with your doctor if not improving. Return if you are a lot worse Disposition Disposition: Home, Self Care
[2021-06-06] MEDS: Ibuprofen 600 MG Tablet PO (13:03)
[2021-06-06] MEDS: LORazepam 2 MG/ML Syringe IV (14:22)
--- NOTE | 2021-06-06 14:42 | ED.RN ---
MRI requests more medication for this patient in order to have MRI due to claustrophobia. MRI nurse medicated in radiology dept.
[2021-06-06] MEDS: DiphenhydrAMINE 50 MG/ML Syringe IV (14:44)
[2021-06-06 14:56] VITALS: BP 133/109; PULSE 84; O2SAT 94
--- NOTE | 2021-06-06 15:01 | NURSING ---
Pt reports I need to come out of MRI machine after initial 3 minutes of MRI scan complete. SIERRA Nichols and both MRI techs attempted to ask patient if there is any way we can complete more images. Pt states I just can't do it today, there's no way
--- NOTE | 2021-06-06 15:11 | ED.RN ---
MRI scan called and patient intolerable to the scan, minimal scan completed and patient continues to be claustrophobic. Dr. Up notified.
[2021-06-06 15:22] VITALS: BP 124/76; PULSE 110; O2SAT 99
[2021-06-06 16:33] VITALS: BP 141/75; PULSE 118
== END 2021-06-06 16:42 | disposition home or self-care (01) ==
PROVIDERS: Emergency Provider Emergency Medicine; PCP Family Medicine
DX: S30.0XXA Contusion of lower back and pelvis, initial encounter (principal); E11.9 Type 2 diabetes mellitus without complications; F41.9 Anxiety disorder, unspecified; F32.A Depression, unspecified; E66.9 Obesity, unspecified; Z86.718 Personal history of other venous thrombosis and embolism; Z86.73 Personal history of transient ischemic attack (TIA), and cerebral infarction without residual deficits; Z79.02 Long term (current) use of antithrombotics/antiplatelets; Z79.899 Other long term (current) drug therapy; W10.9XXA Fall (on) (from) unspecified stairs and steps, initial encounter; Y93.89 Activity, other specified; Y92.89 Other specified places as the place of occurrence of the external cause; Y99.8 Other external cause status
CPT/HCPCS: 72148; 96374; 96375; 99283; A4216

== ENCOUNTER 2021-06-15 03:14 | Emergency (ER) | payer MEDICAID, SELFPAY ==
[2021-06-15] VITALS (10 sets, daily range): BP systolic 113–158; BP diastolic 66–99; PULSE 62–103; RESP 16–72; TEMP 36.6; O2SAT 95–100; BMI 43.1
--- NOTE | 2021-06-15 03:39 | CT_ITS ---
STUDY: CT BRAIN WITHOUT CONTRAST REASON FOR EXAM: Female, 31 years old. Headache, left arm tingling RADIATION DOSAGE (If Supplied By Facility): CTDIvol = ( 44.99 ) mGy, DLP = ( 745.49 ) mGycm TECHNIQUE: Transaxial CT imaging of the brain was performed without administration of intravenous contrast material. Individualized dose optimization techniques were used for this CT. COMPARISON: 02/03/2021 FINDINGS: Normal soft tissue structures. Normal calvarium. Normal size ventricles and extra-axial spaces for the patient''s age. Normal white matter tracts of the cerebral hemispheres. Normal basal ganglia and thalami. Normal brainstem. Normal cerebellum. There is no intracranial hemorrhage. There are no findings of an acute ischemic infarction. Normal visualized paranasal sinuses. CT/Brain/Head without Contrast IMPRESSION: No acute abnormal intracranial finding. Electronically Signed: Catrachito Mercado MD at 4:47 EST Tel , Service support ,
--- NOTE | 2021-06-15 03:41 | EDS_ITS ---
HPI History of Present Illness Chief Complaint: Headache Informant: patient Onset/Context/Timing Onset: Hours (1-2) Context: Sudden, Onset and Activity (sleeping) Timing: Continuous Quality -Headache: Positive for Other (a crash) Location: frontal Current Severity: Moderate Maximum Severity: Severe Worsened by: light Relieved by: nothing Associated Symptoms/Injury Associated Symptoms: Positive for Nausea, Vomiting (not this AM; has been vomiting occasionally w/ headaches for past week), Tingling, Blurred Vision and Photophobia; Negative for Fever Injury - FALL: Negative for Direct Trauma, Fall and Assault Narrative Narrative: Patient has a longstanding history of migraines, states she has had an especially persistent one for the past week, for which her doctor put her on prednisone, she has been taking it for 4 days and has noticed no difference, she woke up suddenly this morning with a crash in her head and had sudden severe worsening of her migraine as a result, along with tingling throughout her face, on both sides of it and into the forehead, as well as down her left upper extremity throughout it, and including all fingers and blurry vision. No other neurologic symptoms. She has a history of factor V Leiden, has had pulmonary e mboli in the past, had been chronically anticoagulated but states she was taken off of anticoagulation about 3 months ago due to sleepwalking issues and risk of head injury. She is due for a sleep study within the next several weeks. [facility] Medical History Anxiety Depression DVT (deep venous thrombosis) Factor V Leiden Kidney stones Ovarian cyst PCOS (polycystic ovarian syndrome) PTSD (post-traumatic stress disorder) Pulmonary embolism TIA (transient ischemic attack) Home Medications topiramate 200 mg PO BID 09/10/18 [History Last Taken 11/22/19 22:00] vitamin B complex 2 ea PO DAILY 09/18/19 [History Last Taken 11/22/19 08:00] fluoxetine 40 mg PO DAILY 12/24/19 [History Last Taken Unknown] rizatriptan [Maxalt] 10 mg PO ONCE PRN 02/03/21 [History Last Taken Unknown] tizanidine 2 mg capsule 2 mg PO QHS PRN #20 cap 02/15/21 [Rx Last Taken Unknown] dabigatran etexilate [Pradaxa] 150 mg PO BID #60 cap 03/30/21 [Rx Last Taken Unknown] buspirone mg 06/06/21 [History Last Taken Unknown] lidocaine [Lidoderm] 1 patch TOPICAL DAILY #6 ea 06/06/21 [Rx Last Taken Unknown] naproxen [Naprosyn] 500 mg PO BID PRN #20 tab 06/06/21 [Rx Last Taken Unknown] prazosin 06/06/21 [History Last Taken Unknown] prednisone 06/06/21 [History Last Taken Unknown] promethazine 06/06/21 [History Last Taken Unknown] rizatriptan mg 06/06/21 [History Last Taken Unknown] zolpidem 06/06/21 [History Last Taken Unknown] Allergy/AdvReac Type Severity Reaction Status Date / Time furosemide [From Lasix] Allergy Hives Verified 06/15/21 03:17 Iodinated Contrast Media Allergy Hives Verified 06/15/21 03:17 ondansetron [From Zofran] Allergy Hives Verified 06/15/21 03:17 propranolol Allergy Angioedema Verified 06/15/21 03:17 sumatriptan [From Imitrex] Allergy Other Verified 06/15/21 03:17 prochlorperazine AdvReac Other Verified 06/15/21 03:17 [From Compazine] Surgical History H/O tubal ligation History of cholecystectomy Hx of cholecystectomy Social History Smoking Status: Never smoker ROS ROS ED Constitutional Constitutional ED: Denies chills or fever(s) Eyes Eyes: Reports blurry vision; Denies diplopia ENT ENT ED: Denies ear pain or sore throat Cardiovascular Cardiovascular: Denies chest pain or palpitations Respiratory/Chest Respiratory/Chest: Denies cough or dyspnea Gastrointestinal Gastrointestinal: Reports nausea and vomiting; Denies abdominal pain or diarrhea Genitourinary Genitourinary ED: Denies dysuria or urinary frequency Musculoskeletal Musculoskeletal: Denies back pain or myalgias Integumentary Denies abscess or rash Neurologic Neurologic: Reports headache(s), paresthesias and tingling; Denies weakness EXAM Physical Exam Const Vital Signs: 06/15/21 03:14 06/15/21 05:14 Temperature 97.8 F Temperature Source Temporal Pulse Rate 103 H 87 Respiratory Rate 18 72 H Blood Pressure 158/96 H 130/81 H Blood Pressure Mean 116 97 Pulse Ox 97 100 Oxygen Delivery Method Room Air Room Air HEENT Reports normocephalic and moist mucous membranes atraumatic Eyes PERRL, EOMs intact bilaterally and conjunctivae normal Eyes Narrative: photophobia Neck no lymphadenopathy, supple and no meningeal signs Resp normal respiratory effort and clear to auscultation bilaterally GI non-tender and non-distended Palpation: soft Extremity normal to inspection and full ROM Neuro oriented x3 and CN's II-XII intact bilaterally Neuro Narrative: Subjective tingling, sensation objectively intact. No facial droop. [id number] and [id number] normal and symmetric bilaterally. Normal speech without aphasia or dysarthria. Sensorium / Orientation: awake and alert Speech: speech normal Gait (Neuro): normal gait Motor Exam: strength 5/5 throughout Psych mental status grossly normal Skin Lesions: no lesions Rashes: no rashes MDM MDM MDM Narrative Medical decision making narrative: This patient certainly is at risk of throwing blood clots and having a stroke, however her clinical syndrome here is inconsistent with stroke, given tingling throughout the face on both sides. CT was obtained more to rule out subarachnoid hemorrhage. It was negative and unremarkable. Patient was initially given Reglan and Benadryl, did not help her symptoms, she says that according to her visits with her neurologist, she suspects she has neck muscle spasm that is contributing to or causing her migraines and she has done IV Norflex in the past with improvement. She is also done well with Phenergan in the past for nausea and migraines both. Unfortunately, this hospital has outlawed IV promethazine, so she will be given an IM injection in addition to another dose of Benadryl, the Norflex, and we will also try a dose of IV Depakote which she takes prophylactically. None of these medications have helped and now the patient states that the majority of her numbness is in the left side of her face as well as the left upper extremity, she states because her vision is so blurry and the numbness, she is concerned about going home. There are no beds available to admit her to in the hospital. She will be observed in the ER, and turned over to the morning shift, given her propensity to have clots and the fact that she is off of her anticoagulants, will order an MRI/MRV to be obtained in the morning when available to rule out acute ischemic abnormalities. 06/17/21 -- MRI, MRV as below were negative. Pt was discharged home w/ migraine instructions. Radiography Diagnostic Testing: Clinical Impression(s) from Imaging Studies Brain CT 06/15/21 03:39 IMPRESSION: No acute abnormal intracranial finding. Electronically Signed: Catrachito Mercado MD at 4:47 EST Tel , Service support , Brain MRI 06/15/21 05:58 IMPRESSION: Normal MRI brain without contrast. Electronically Signed: Osmani Penn MD at 10:38 EST , Service support , Brain MRI 06/15/21 05:58 IMPRESSION: Normal unenhanced MRV of the brain. Electronically Signed: Osmani Penn MD at 10:40 EST , Service support , Discharge Plan Triage Chief Complaint: Headache ED Provider: Jose Holder Dx/Rx/DC Orders Clinical Impression: Migraine headache, Paresthesias Instructions: ED, Migraine (Classical) Prescriptions: No Action tizanidine 2 mg capsule 2 mg PO QHS PRN (Reason: muscle spasticity) Qty: 20 RF: 0 topiramate 200 MG tablet 200 mg PO BID RF: 0 vitamin B complex 1 EACH capsule 2 ea PO DAILY RF: 0 fluoxetine 20 MG capsule 40 mg PO DAILY RF: 0 rizatriptan [Maxalt] 10 mg tablet 10 mg PO ONCE PRN (Reason: Migraine Headache) RF: 0 Pradaxa 150 mg capsule 150 mg PO BID Qty: 60 RF: 0 prednisone 10 mg tablet RF: 0 rizatriptan 10 mg tablet RF: 0 prazosin 5 mg capsule RF: 0 promethazine 25 mg tablet RF: 0 zolpidem 5 mg tablet RF: 0 buspirone 15 mg tablet RF: 0 naproxen [Naprosyn] 500 mg tablet 500 mg PO BID PRN (Reason: pain) Qty: 20 RF: 0 lidocaine [Lidoderm] 5 % adhesive patch,medicated 1 patch topical DAILY Qty: 6 RF: 0 Primary Care Provider: Ki Weldon Referrals: Ki Weldon MD [Primary Care Provider] - (And/your your neurologist as needed) Disposition Disposition: Home, Self Care Discharge Date/Time: 06/15/21 13:35
[2021-06-15] MEDS: DiphenhydrAMINE 50 MG/ML Syringe 25 MG IV ×3 (04:43→08:39)
[2021-06-15] MEDS: Metoclopramide 10 MG/2 ML Vial 5 MG IV (04:43)
[2021-06-15] MEDS: Orphenadrine 60 MG/2 ML Ampul IV (05:12)
[2021-06-15] MEDS: proMETHazine 25 MG/ML Syringe 12.5 MG IM (05:13)
--- NOTE | 2021-06-15 05:58 | MRI_ITS ---
EXAM: MR HEAD WITHOUT INTRAVENOUS CONTRAST CLINICAL INDICATION: Headache. Left upper extremity and left facial numbness. TECHNIQUE: Multiplanar and multisequence MR images of the brain were obtained without intravenous contrast. This report was created using [employer] report [employer] technology. COMPARISON: CT head without contrast 06/15/2021. FINDINGS: BRAIN AND EXTRA-AXIAL SPACES: No diffusion restriction throughout the brain parenchyma. No focal signal abnormalities throughout the brain parenchyma in all of the pulse sequences. No intra- or extra-axial hemorrhage. No evidence of acute infarct. No intracranial mass or mass effect. There is preservation of the garcia/white matter interface. Posterior fossa structures are unremarkable. Ventricles are appropriate for age. No hydrocephalus. Basal cisterns are patent. SELLA: Unremarkable. Normal sella turcica, pituitary gland, infundibular stalk, optic chiasm and hypothalamus. AUDITORY SYSTEM: Unremarkable. The internal auditory canals are patent. BONES/JOINTS: Unremarkable. No discrete lytic or blastic abnormalities. SINUSES: Unremarkable as visualized. Clear. MASTOID AIR CELLS: Unremarkable as visualized. Clear. ORBITS: Unremarkable as visualized. Both globes, extraocular muscles, optic nerves and retrobulbar fat appear unremarkable. VASCULATURE: Unremarkable as visualized. Normal flow voids in the major intracranial circulation. MRI/Brain without Contrast IMPRESSION: Normal MRI brain without contrast. Electronically Signed: Osmani Penn MD at 10:38 EST , Service support ,
--- NOTE | 2021-06-15 05:58 | MRI_ITS ---
STUDY: EXAMINATION - MRV BRAIN WITHOUT CONTRAST REASON FOR EXAM: Female, 31 years old. Headache, numbness LUE and left face TECHNIQUE: 3D [id number] (TOF) imaging was performed in a 1.5 moe MRI scanner. COMPARISON: None. FINDINGS: Normal flow within the superior sagittal sinus. Normal flow within the superficial cortical veins. Normal flow within the paired internal cerebral veins, vein of Raimundo and straight sinus. Normal flow within the bilateral transverse and sigmoid sinuses. Hypoplastic left transverse sinus and left sigmoid sinus. Normal flow within the bilateral jugular bulbs. The right jugular bulb and right internal jugular vein is dominant. MRI/MRV Head Without Contrast IMPRESSION: Normal unenhanced MRV of the brain. Electronically Signed: Osmani Penn MD at 10:40 EST , Service support ,
--- NOTE | 2021-06-15 06:33 | NURSING ---
Called MRI to see when expecting to take patient to know when to premedicate and they will call back as they just go there and have to look at the schedule.
[2021-06-15] MEDS: LORazepam 2 MG/ML Syringe 1 MG IV (08:38)
--- NOTE | 2021-06-15 11:16 | CM.ED ---
SW Note SW updated MD that patient has an ED care plan. Patient is being discharged Evon VANESSA
[2021-06-15] MEDS: Ketorolac 30 MG/ML Syringe IV (12:35)
--- NOTE | 2021-06-15 13:29 | ED.RN ---
pt reports that she feels like she is not receiving appropriate care for her migraine and stated that she felt that she needed to be admitted.pt informed that she did not meet admission criteria with her chronic migraine that has been going on for the past ten days. pt informed that she would not be transferred to another facility. pt informed that with a negative mri, mra, and ct pt was cleared to go home and follow up with her neurologist. pt reports having a appt already set with her neurologist. pt informed that the patient advocate with be over to talk to her because she felt that she was not receiving appropriate care here. the patient advocate came to and talk to the pt. per the patient advocate pt made statements that she would sign herself in for psych if she was not getting admitted. manager social work munira was in to talk to pt. pt given discharge paperwork.
--- NOTE | 2021-06-15 13:38 | CM.ED ---
BRITTANI Note SW was updated by Catalino Berumen, patient advocate that patient has malingering behavior and when speaking to her regarding her not being admitted to acute patient said she would just check myself into psych. Catalino indicated that hospital has a social media 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 and patient, per Catalino, repeatedly declined. Catalino reports patient has not voiced any SI/HI and is very manipulative. Catalino reports that he offered outpatient MH but patient declined. SW met with patient. SHe said that she lives alone. She reports no family contact as her mom is , dad and her don't get along and one brother in [place] has a child. Patient said that doesn't have anything to do with it. SW said that is not accurate as it related to family support. 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 She said I have been admitted to the floor before with a lesser migraine than this. SW said that patient does not meet criteria for admission to acute inpatient. Patient said that she would like to be admitted to floor to speak to a neurologist. Patient said that she has a neurologist and has an appointment with a neurologist in a couple of weeks but am on the cancellation list. Patient said that the pain is so bad that she doesn't want to live like this, referencing the pain. SW said so what I hear is that you don't want to continue to experience the medical issues. Patient said that she is tired of being in pain. Patient was advised that there is a criteria that needs to be meet for inpatient psych as patient said I will check myself in. Patient was offered IOP/PHP and patient said thats for drug addicts and patient was advised that was not accurate. SW again stated that patient had not indicated any mental health issues until discharge plan was discussed and the reference to MH was vague except that patient said she wanted to check myself in to a psych facility. Patient said well, if something happens then you are labile. SW stated that would be your choice and I am refusing to accept that..you are responsible for your choices. During the interview patient repeatedly made statement about the MD's not talking to her and no one updating her and then staff not giving her more meds (patient requested additional migraine medication but patient had been discharged). Brittani and RN Yaya Silva went into the room and explained that patient is being discharged and she does not meet criteria for inpatient acute care and that patient's use of mental health and reported depression were only evident when patient was advised she was leaving. Patient said you don't have to be rude. SW advised patient is not being rude but this chart writer is giving her the answer she doesn't want to hear. RN said that SW is direct. Patient was advised she is being discharged today and said that she would take a cab home. SW also indicated patient has a care plan and patient's response was I never once asked for Narcotics. BRITTANI updated MD who verified that patient is very manipulative. SW is concerned that patient is demonstrating malingering behavior as she was seen by multiple staff during the day but then when advised of discharge she made vague statements of having past depression and wanting the pain to end but she did not voice SI but wanted the pain she was feeling to stop. Patient was future oriented in talking about the upcoming neurology appointment. Thus, she was given firm limits and not given the ability to manipulate staff, services or resources. Evon VANESSA
== END 2021-06-15 13:35 | disposition home or self-care (01) ==
PROVIDERS: Emergency Provider Emergency Medicine; PCP Family Medicine
DX: G43.909 Migraine, unspecified, not intractable, without status migrainosus (principal); R20.2 Paresthesia of skin; F41.9 Anxiety disorder, unspecified; F32.A Depression, unspecified; Z86.718 Personal history of other venous thrombosis and embolism; Z86.73 Personal history of transient ischemic attack (TIA), and cerebral infarction without residual deficits; Z79.899 Other long term (current) drug therapy; Z23 Encounter for immunization
CPT/HCPCS: 70450; 70544; 70551; 90471; 96365; 96372; 96375; 96376; 99285; J7030; J7040; A4216

== ENCOUNTER 2021-07-14 00:41 | Emergency (ER) | payer MEDICAID, SELFPAY ==
[2021-07-14 00:42] VITALS: BP 135/85; PULSE 105; RESP 18; TEMP 37.2; O2SAT 96; BMI 43.1
--- NOTE | 2021-07-14 00:54 | EDS_ITS ---
HPI History of Present Illness Chief Complaint: Headache Informant: patient Onset/Context/Timing Onset: Days (5 days) Context: Gradual Timing: Waxes and wanes Current Severity: Moderate Maximum Severity: Severe Narrative Narrative: Patient presents secondary to persistent migraine. She is a history of frequent migraines. This particular migraine started on Saturday. She was seen by her doctor on Saturday and got a couple shots in the office but states she has not had improvement. She spoke with her neurologist raheem who recommended she come to the emergency room. No recent fever or chills. No URI symptoms. No recent head trauma. Patient does have a list of her current home meds as well as her rescue meds for migraine at home. None of these have been successful. First line treatment in the emergency room is typically Benadryl, Phenergan, and Decadron. Second line treatment is Norflex and ketamine. [facility] Medical History Anxiety Depression DVT (deep venous thrombosis) Factor V Leiden Kidney stones Ovarian cyst PCOS (polycystic ovarian syndrome) PTSD (post-traumatic stress disorder) Pulmonary embolism TIA (transient ischemic attack) Home Medications topiramate 200 mg PO BID 09/10/18 [History Last Taken 11/22/19 22:00] vitamin B complex 2 ea PO DAILY 09/18/19 [History Last Taken 11/22/19 08:00] fluoxetine 40 mg PO DAILY 12/24/19 [History Last Taken Unknown] rizatriptan [Maxalt] 10 mg PO ONCE PRN 02/03/21 [History Last Taken Unknown] tizanidine 2 mg capsule 2 mg PO QHS PRN #20 cap 02/15/21 [Rx Last Taken Unknown] dabigatran etexilate [Pradaxa] 150 mg PO BID #60 cap 03/30/21 [Rx Last Taken Unknown] buspirone mg 06/06/21 [History Last Taken Unknown] lidocaine [Lidoderm] 1 patch TOPICAL DAILY #6 ea 06/06/21 [Rx Last Taken Unknown] naproxen [Naprosyn] 500 mg PO BID PRN #20 tab 06/06/21 [Rx Last Taken Unknown] prazosin 06/06/21 [History Last Taken Unknown] prednisone 06/06/21 [History Last Taken Unknown] promethazine 06/06/21 [History Last Taken Unknown] rizatriptan mg 06/06/21 [History Last Taken Unknown] zolpidem 06/06/21 [History Last Taken Unknown] Allergy/AdvReac Type Severity Reaction Status Date / Time furosemide [From Lasix] Allergy Hives Verified 07/14/21 00:44 Iodinated Contrast Media Allergy Hives Verified 07/14/21 00:44 ondansetron [From Zofran] Allergy Hives Verified 07/14/21 00:44 propranolol Allergy Angioedema Verified 07/14/21 00:44 sumatriptan [From Imitrex] Allergy Other Verified 07/14/21 00:44 prochlorperazine AdvReac Other Verified 07/14/21 00:44 [From Compazine] Surgical History H/O tubal ligation History of cholecystectomy Hx of cholecystectomy Social History Smoking Status: Never smoker ROS ROS ED Constitutional Constitutional ED: Denies chills or fever(s) Eyes Eyes: Denies change in vision ENT ENT ED: Denies sore throat Cardiovascular Cardiovascular: Denies chest pain Respiratory/Chest Respiratory/Chest: Denies cough or dyspnea Gastrointestinal Gastrointestinal: Reports nausea and vomiting; Denies abdominal pain or diarrhea Musculoskeletal Musculoskeletal: Denies back pain or neck pain Integumentary Denies rash Neurologic Neurologic: Reports headache(s); Denies paresthesias or weakness Allergic/Immunologic Allergic/Immunologic ED: Denies urticaria EXAM Physical Exam Const Vital Signs: 07/14/21 00:42 07/14/21 03:42 Temperature 98.9 F Temperature Source Temporal Pulse Rate 105 H 64 Respiratory Rate 18 20 H Blood Pressure 135/85 H Blood Pressure Mean 101 Pulse Ox 96 96 Oxygen Delivery Method Room Air Room Air Positive well nourished and well developed General Appearance ED: well developed HEENT Reports moist mucous membranes Eyes PERRL and EOMs intact bilaterally Neck supple and no meningeal signs Resp normal respiratory effort and clear to auscultation bilaterally Cardio regular rate and regular rhythm GI non-tender Palpation: soft Neuro oriented x3 and no sensory deficits noted Sensorium / Orientation: awake and alert Motor Exam: strength 5/5 throughout Psych mental status grossly normal Skin Lesions: no lesions Rashes: no rashes MDM MDM MDM Narrative Medical decision making narrative: Patient's recent work-ups were reviewed including head CT and MRI MRV earlier this month. Patient is given Benadryl, Phenergan, and Decadron. Treatment and Re-Evaluation Comments:: Repeat evaluation she reported no improvement in her headache. She was then given 60 mg of IM Norflex and 30 mg of IV ketamine. On repeat examination at this time she states her headache is slightly improved from an 8 down to a 6. She will be discharged home to sleep in a quiet dark room. She will be given a dose of p.o. Phenergan prior to discharge for some mild nausea. Return instructions are provided. She is to follow-up with her neurologist. Discharge Plan Triage Chief Complaint: Headache ED Provider: Soraya Up Dx/Rx/DC Orders Clinical Impression: Migraine Instructions: ED, Migraine (Classical) Prescriptions: No Action tizanidine 2 mg capsule 2 mg PO QHS PRN (Reason: muscle spasticity) Qty: 20 RF: 0 topiramate 200 MG tablet 200 mg PO BID RF: 0 vitamin B complex 1 EACH capsule 2 ea PO DAILY RF: 0 fluoxetine 20 MG capsule 40 mg PO DAILY RF: 0 rizatriptan [Maxalt] 10 mg tablet 10 mg PO ONCE PRN (Reason: Migraine Headache) RF: 0 Pradaxa 150 mg capsule 150 mg PO BID Qty: 60 RF: 0 prednisone 10 mg tablet RF: 0 rizatriptan 10 mg tablet RF: 0 prazosin 5 mg capsule RF: 0 promethazine 25 mg tablet RF: 0 zolpidem 5 mg tablet RF: 0 buspirone 15 mg tablet RF: 0 naproxen [Naprosyn] 500 mg tablet 500 mg PO BID PRN (Reason: pain) Qty: 20 RF: 0 lidocaine [Lidoderm] 5 % adhesive patch,medicated 1 patch topical DAILY Qty: 6 RF: 0 Primary Care Provider: Ki Weldon Referrals: Ki Weldon MD [Primary Care Provider] - Bryan Villa MD [NON-STAFF] - As Needed Disposition Disposition: Home, Self Care
[2021-07-14] MEDS: 0.9% Normal Saline 1,000 ML 1000 ML IV (01:29)
[2021-07-14] MEDS: DiphenhydrAMINE 50 MG/ML Syringe IV (01:29)
[2021-07-14] MEDS: dexAMETHasone 10 MG/ML Vial IV (01:30)
[2021-07-14] MEDS: proMETHazine 25 MG/ML Syringe 12.5 MG IM (01:31)
[2021-07-14] MEDS: Ketamine HCl 500 MG/5 ML Vial 30 MG IV (03:13)
[2021-07-14] MEDS: Orphenadrine 60 MG/2 ML Ampul IM (03:13)
[2021-07-14 03:42] VITALS: PULSE 64; RESP 20; O2SAT 96
[2021-07-14] MEDS: proMETHazine 25 MG Tablet PO (05:22)
[2021-07-14 05:25] VITALS: PULSE 76; RESP 16; O2SAT 96
== END 2021-07-14 05:26 | disposition home or self-care (01) ==
PROVIDERS: Emergency Provider Emergency Medicine; PCP Family Medicine
DX: G43.909 Migraine, unspecified, not intractable, without status migrainosus (principal); D68.51 Activated protein C resistance; E28.2 Polycystic ovarian syndrome; F41.9 Anxiety disorder, unspecified; F32.A Depression, unspecified; F43.10 Post-traumatic stress disorder, unspecified; Z86.73 Personal history of transient ischemic attack (TIA), and cerebral infarction without residual deficits; Z86.718 Personal history of other venous thrombosis and embolism; Z86.711 Personal history of pulmonary embolism; Z87.442 Personal history of urinary calculi; Z79.01 Long term (current) use of anticoagulants; Z79.899 Other long term (current) drug therapy
CPT/HCPCS: 96361; 96372; 96374; 96375; 99285; J7030; A4216

== ENCOUNTER 2021-08-21 07:18 | Emergency (ER) | payer MEDICAID, SELFPAY ==
[2021-08-21 07:19] VITALS: BP 193/136; PULSE 98; RESP 18; TEMP 36.4; O2SAT 100; BMI 41.5
--- NOTE | 2021-08-21 07:38 | EDS_ITS ---
HPI History of Present Illness Chief Complaint: Cellulitis Informant: patient Narrative Narrative: Patient is evaluated for pain swelling and redness of her left great toe. Patient has a couple weeks ago she dropped a can of tomato sauce on her left great toe. It was feeling better but that over the past 2 to 3 days she had increased redness swelling and then purulent drainage coming from around her left great toenail. Patient states she started to feel nauseous and has some chills. She is now having pain in her left lower back. She notes her blood sugars have been high in the 300s because she is been on steroids due to her migraines. Patient feels that the symptoms are even worse today. She denies any fever. No other complaints at this time. [facility] Medical History Anxiety Depression DVT (deep venous thrombosis) Factor V Leiden Kidney stones Ovarian cyst PCOS (polycystic ovarian syndrome) PTSD (post-traumatic stress disorder) Pulmonary embolism TIA (transient ischemic attack) Home Medications topiramate 200 mg PO BID 09/10/18 [History Last Taken 11/22/19 22:00] vitamin B complex 2 ea PO DAILY 09/18/19 [History Last Taken 11/22/19 08:00] fluoxetine 40 mg PO DAILY 12/24/19 [History Last Taken Unknown] rizatriptan [Maxalt] 10 mg PO ONCE PRN 02/03/21 [History Last Taken Unknown] tizanidine 2 mg capsule 2 mg PO QHS PRN #20 cap 02/15/21 [Rx Last Taken Unknown] dabigatran etexilate [Pradaxa] 150 mg PO BID #60 cap 03/30/21 [Rx Last Taken Unknown] buspirone mg 06/06/21 [History Last Taken Unknown] lidocaine [Lidoderm] 1 patch TOPICAL DAILY #6 ea 06/06/21 [Rx Last Taken Unknown] naproxen [Naprosyn] 500 mg PO BID PRN #20 tab 06/06/21 [Rx Last Taken Unknown] prazosin 06/06/21 [History Last Taken Unknown] prednisone 06/06/21 [History Last Taken Unknown] promethazine 06/06/21 [History Last Taken Unknown] rizatriptan mg 06/06/21 [History Last Taken Unknown] zolpidem 06/06/21 [History Last Taken Unknown] cephalexin 500 mg PO Q6 #40 cap 08/21/21 [Rx Last Taken Unknown] promethazine 25 mg PO Q6H PRN #20 tab 08/21/21 [Rx Last Taken Unknown] Allergy/AdvReac Type Severity Reaction Status Date / Time furosemide [From Lasix] Allergy Hives Verified 08/21/21 07:22 Iodinated Contrast Media Allergy Hives Verified 08/21/21 07:22 ondansetron [From Zofran] Allergy Hives Verified 08/21/21 07:22 propranolol Allergy Angioedema Verified 08/21/21 07:22 sumatriptan [From Imitrex] Allergy Other Verified 08/21/21 07:22 prochlorperazine AdvReac Other Verified 08/21/21 07:22 [From Compazine] Surgical History H/O tubal ligation History of cholecystectomy Hx of cholecystectomy Social History Smoking Status: Never smoker ROS ROS ED Constitutional Constitutional ED: Reports chills; Denies fever(s) Eyes Eyes: Denies change in vision Cardiovascular Cardiovascular: Denies chest pain or palpitations Respiratory/Chest Respiratory/Chest: Denies dyspnea Gastrointestinal Gastrointestinal: Reports nausea; Denies abdominal pain or vomiting Musculoskeletal Musculoskeletal: Reports back pain and other Details: left great toe pain ; Denies arthralgias or myalgias Integumentary Reports rash Neurologic Neurologic: Denies headache(s), paresthesias or weakness Psychiatric Psychiatric: Denies depression EXAM Physical Exam Const Vital Signs: 08/21/21 07:19 Temperature 97.6 F L Temperature Source Temporal Pulse Rate 98 Respiratory Rate 18 Blood Pressure 193/136 H Blood Pressure Mean 155 Pulse Ox 100 Oxygen Delivery Method Room Air Positive well nourished and well developed General Appearance ED: well developed HEENT Reports moist mucous membranes Eyes PERRL and EOMs intact bilaterally Neck supple Neck Narrative: normal ROM Chest Wall inspection of chest normal Resp normal respiratory effort and clear to auscultation bilaterally Cardio regular rate, regular rhythm and no murmurs Rate: other Other Details: 2+ DP pulse GI normal to inspection, nondistended, normoactive bowel sounds and non-tender Palpation: soft Back/Spine Back/Spine Narrative: No midline tenderness. Patient has some mild left lower lumbar tenderness above the iliac crest Extremity Extremity Narrative: Tenderness and mild erythema of the medial nail fold of the left great toe. No fluctuance appreciated. The great toenail on the left is thickened. No subungual hematoma noted at the base. There is great nail khmer fdc up the nail and distally. No bony tenderness. Normal range of motion. Patient has no bony tenderness of the left lower extremity especially at the hip. No pain with logroll. No tenderness over the greater trochanter. Neuro oriented x3 and no sensory deficits noted Sensorium / Orientation: alert Motor Exam: Negative for general weakness Psych mental status grossly normal Skin Skin Narrative: Erythema of the medial nail fold of the left great toe as above. No associated lymphangitic streaking. No fluctuance appreciated. MDM MDM MDM Narrative Medical decision making narrative: Patient evaluated for redness, swelling and drainage of the left great toe. Exam is consistent with paronychia. No significant cellulitis appreciated. As she did have remote trauma couple weeks ago I did obtain an x-ray which not show any acute fracture findings consistent with osteomyelitis. Overall patient is very well-appearing. I suspect her back pain is due to gait changes associated with her foot injury and now foot pain. Instructed to take ibuprofen and or Tylenol as needed for the pain. Counseled on warm soaks. Will be placed on Keflex. Patient states she does get nauseous with this so she is given a prescription for Phenergan as well. Is given referral for podiatry. Foot is soaked. The bevel of an 18-gauge needle used to pull back the nail fold. No purulence is expressed. No fluctuance is appreciated. Radiography X-Ray: Read by ED Physician, Read by Radiologist, Normal and - (Left foot ) Diagnostic Testing: Clinical Impression(s) from Imaging Studies Foot X-Ray 08/21/21 07:38 IMPRESSION: Normal x-ray examination of the foot. Electronically Signed: Abdulaziz Chicas MD at 8:28 EST , Discharge Plan Triage Chief Complaint: Cellulitis ED Provider: Godman,Leslie Dx/Rx/DC Orders Clinical Impression: Paronychia of great toe of left foot, Low back pain Instructions: ED Back Pain (Acute or Chronic), ED Paronychia of the Finger or Toe Prescriptions: New cephalexin 500 mg capsule 500 mg PO Q6 Qty: 40 RF: 0 promethazine 25 mg tablet 25 mg PO Q6H PRN (Reason: nausea and vomiting) Qty: 20 RF: 0 No Action tizanidine 2 mg capsule 2 mg PO QHS PRN (Reason: muscle spasticity) Qty: 20 RF: 0 topiramate 200 MG tablet 200 mg PO BID RF: 0 vitamin B complex 1 EACH capsule 2 ea PO DAILY RF: 0 fluoxetine 20 MG capsule 40 mg PO DAILY RF: 0 rizatriptan [Maxalt] 10 mg tablet 10 mg PO ONCE PRN (Reason: Migraine Headache) RF: 0 Pradaxa 150 mg capsule 150 mg PO BID Qty: 60 RF: 0 prednisone 10 mg tablet RF: 0 rizatriptan 10 mg tablet RF: 0 prazosin 5 mg capsule RF: 0 promethazine 25 mg tablet RF: 0 zolpidem 5 mg tablet RF: 0 buspirone 15 mg tablet RF: 0 naproxen [Naprosyn] 500 mg tablet 500 mg PO BID PRN (Reason: pain) Qty: 20 RF: 0 lidocaine [Lidoderm] 5 % adhesive patch,medicated 1 patch topical DAILY Qty: 6 RF: 0 Primary Care Provider: Ki Weldon Referrals: Jose Ellis DPM [STAFF PHYSICIAN] - 3-5 Days Ki Weldon MD [Primary Care Provider] - Activity Restrictions/Additional Instructions: Soak your foot in warm soapy water 3 times a day as its healing Disposition Disposition: Home, Self Care
--- NOTE | 2021-08-21 07:38 | RAD_ITS ---
STUDY: X-RAY - LEFT FOOT CLINICAL: Female, 31 years old. Injury/Pain TECHNIQUE: 3 view(s) of the foot. COMPARISON: None. FINDINGS: Tiny spur at insertion of the Achilles tendon Normal visualized subtalar, talonavicular, calcaneocuboid, tarsal and tarsometatarsal articulations. Normal metatarsi. Normal metatarsophalangeal joint of the great toe. Normal tibial and fibular sesamoid bones. Normal interphalangeal joint of the great toe. Normal phalanges of the great toe. Normal second through fifth metatarsophalangeal joints. Normal interphalangeal joints and phalanges of the lesser toes. The soft tissue structures are unremarkable. RAD/Foot min 3 Views IMPRESSION: Normal x-ray examination of the foot. Electronically Signed: Abdulaziz Chicas MD at 8:28 EST ,
[2021-08-21 09:18] VITALS: BP 129/84; PULSE 71; RESP 16; O2SAT 96
== END 2021-08-21 09:18 | disposition home or self-care (01) ==
PROVIDERS: Emergency Provider Emergency Medicine; PCP Family Medicine; Visit Provider Emergency Medicine
DX: L03.032 Cellulitis of left toe (principal); D68.2 Hereditary deficiency of other clotting factors; R73.9 Hyperglycemia, unspecified; G43.909 Migraine, unspecified, not intractable, without status migrainosus; M54.50 Low back pain, unspecified; L03.90 Cellulitis, unspecified; F41.9 Anxiety disorder, unspecified; F32.A Depression, unspecified; Z86.711 Personal history of pulmonary embolism; Z86.73 Personal history of transient ischemic attack (TIA), and cerebral infarction without residual deficits; Z79.899 Other long term (current) drug therapy; Z79.52 Long term (current) use of systemic steroids; Z79.1 Long term (current) use of non-steroidal anti-inflammatories (NSAID)
CPT/HCPCS: 73630; 99282

== ENCOUNTER 2021-09-06 07:17 | Emergency (ER) | payer MEDICAID, SELFPAY ==
[2021-09-06 07:18] VITALS: BP 121/84; PULSE 103; RESP 20; TEMP 36.2; O2SAT 99; BMI 44.1
--- NOTE | 2021-09-06 07:27 | CT_ITS ---
STUDY: CT BRAIN WITHOUT CONTRAST REASON FOR EXAM: Female, 31 years old. FELL OUT OF BED HITTING SIDE TABLE CONTUSION LEFT FOREHEAD AREA ABOVE EYEBROW RADIATION DOSAGE (If Supplied By Facility): CTDIvol = ( 44.99 ) mGy, DLP = ( 745.49 ) mGycm TECHNIQUE: Transaxial CT imaging of the brain was performed without administration of intravenous contrast material. Individualized dose optimization techniques were used for this CT. COMPARISON: No relevant priors. FINDINGS: Normal soft tissue structures. Normal calvarium. Normal size ventricles and extra-axial spaces for the patient''s age. Normal white matter tracts of the cerebral hemispheres. Normal basal ganglia and thalami. Normal brainstem. Normal cerebellum. There is no intracranial hemorrhage. There are no findings of an acute ischemic infarction. Normal visualized paranasal sinuses. CT/Brain/Head without Contrast IMPRESSION: Normal unenhanced CT scan of the brain. Electronically Signed: Gopal Ramirez MD ([place]) at 8:09 EST Reading Location ID and State: [address] [place] , Service support ,
--- NOTE | 2021-09-06 07:29 | EDS_ITS ---
HPI History of Present Illness Chief Complaint: Fall Informant: patient Narrative Narrative: 31-year-old female states that yesterday she fell out of bed striking her head. 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 Her headache got worse and she began to have some emesis. She states that Tylenol Motrin is no longer helping her headache. The patient states that she called her on-call neurologist number to see if they could see her today and stated that there was nothing they could do for her as there were no appointments so she came to emergency. Patient has a care plan patient. She is on blood thinners due to factor V Leiden. No diarrhea or fevers. She did have a bloody nose which has resolved [facility] Medical History Anxiety Depression DVT (deep venous thrombosis) Factor V Leiden Kidney stones Ovarian cyst PCOS (polycystic ovarian syndrome) PTSD (post-traumatic stress disorder) Pulmonary embolism TIA (transient ischemic attack) Home Medications topiramate 200 mg PO BID 09/10/18 [History Last Taken 11/22/19 22:00] vitamin B complex 2 ea PO DAILY 09/18/19 [History Last Taken 11/22/19 08:00] fluoxetine 40 mg PO DAILY 12/24/19 [History Last Taken Unknown] rizatriptan [Maxalt] 10 mg PO ONCE PRN 02/03/21 [History Last Taken Unknown] tizanidine 2 mg capsule 2 mg PO QHS PRN #20 cap 02/15/21 [Rx Last Taken Unknown] dabigatran etexilate [Pradaxa] 150 mg PO BID #60 cap 03/30/21 [Rx Last Taken Unknown] buspirone mg 06/06/21 [History Last Taken Unknown] lidocaine [Lidoderm] 1 patch TOPICAL DAILY #6 ea 06/06/21 [Rx Last Taken Unknown] naproxen [Naprosyn] 500 mg PO BID PRN #20 tab 06/06/21 [Rx Last Taken Unknown] prazosin 06/06/21 [History Last Taken Unknown] prednisone 06/06/21 [History Last Taken Unknown] promethazine 06/06/21 [History Last Taken Unknown] rizatriptan mg 06/06/21 [History Last Taken Unknown] zolpidem 06/06/21 [History Last Taken Unknown] cephalexin 500 mg PO Q6 #40 cap 08/21/21 [Rx Last Taken Unknown] promethazine 25 mg PO Q6H PRN #20 tab 08/21/21 [Rx Last Taken Unknown] Allergy/AdvReac Type Severity Reaction Status Date / Time furosemide [From Lasix] Allergy Hives Verified 09/06/21 07:21 Iodinated Contrast Media Allergy Hives Verified 09/06/21 07:21 ondansetron [From Zofran] Allergy Hives Verified 09/06/21 07:21 propranolol Allergy Angioedema Verified 09/06/21 07:21 sumatriptan [From Imitrex] Allergy CHEST PAIN Verified 09/06/21 07:21 AND PALPITATIONS prochlorperazine AdvReac AGITATION Verified 09/06/21 07:21 [From Compazine] AND ANXIOUS Surgical History H/O tubal ligation History of cholecystectomy Hx of cholecystectomy Social History (Updated 09/06/21 @ 07:[address] Jose Holder DO) Smoking Status: Never smoker substance use type: does not use ROS ROS ED Constitutional Constitutional ED: Denies chills or weight loss Eyes Eyes: Denies blurry vision, change in vision or diplopia ENT ENT ED: Denies ear pain, rhinorrhea or sore throat Cardiovascular Cardiovascular: Denies chest pain, orthopnea, palpitations or racing heartbeat Respiratory/Chest Respiratory/Chest: Denies cough, dyspnea or orthopnea Gastrointestinal Gastrointestinal: Reports nausea and vomiting; Denies abdominal pain or diarrhea Genitourinary Genitourinary ED: Denies dysuria, hematuria or urinary frequency Musculoskeletal Musculoskeletal: Denies arthralgias or myalgias Integumentary Denies abscess or rash Neurologic Neurologic: Reports headache(s); Denies weakness Psychiatric Psychiatric: Denies anxiety, depression, suicidal ideation or suicidal thoughts Endocrine Endocrinology: Denies polydipsia, polyphagia or polyuria Allergic/Immunologic Allergic/Immunologic ED: Denies mouth swelling, tongue swelling or urticaria EXAM Physical Exam Const Vital Signs: 09/06/21 07:18 09/06/21 07:50 Temperature 97.2 F L Temperature Source Temporal Pulse Rate 103 H Respiratory Rate 20 H Respiratory Effort Normal Non-Labored Respiratory Depth Normal Respiratory Pattern Normal Blood Pressure 121/84 H Blood Pressure Mean 96 Pulse Ox 99 Oxygen Delivery Method Room Air Room Air Positive well nourished, well developed and obese General Appearance ED: well developed Nutritional Appearance: obese HEENT Reports normocephalic, head/scalp atraumatic and moist mucous membranes HEENT Narrative: Forehead abrasion and contusion on the left No septal hematoma noted trauma Eyes PERRL and EOMs intact bilaterally Neck no lymphadenopathy, supple and no JVD Resp normal respiratory effort and clear to auscultation bilaterally Cardio regular rate, regular rhythm and no murmurs GI normal to inspection, nondistended, normoactive bowel sounds and non-tender Palpation: soft Back/Spine no CVA tenderness and normal ROM Extremity normal to inspection General Extremety ED: Negative for edema General Extremity: Negative for edema Neuro oriented x3 and CN's II-XII intact bilaterally Sensorium / Orientation: alert Motor Exam: strength 5/5 throughout Psych mental status grossly normal Mood & Affect: Negative for depressed or tearful Skin no rashes or lesions noted and no wounds MDM MDM MDM Narrative Medical decision making narrative: CT of the brain was negative for hemorrhage or fracture or mass. Patient received a dose of Phenergan and Toradol. At this point she will be discharged home with supportive care. If her symptoms have not resolved in 1 week would recommend follow-up either with her neurologist or her primary care for further concussive evaluation Radiography Diagnostic Testing: Clinical Impression(s) from Imaging Studies Brain CT 09/06/21 07:27 IMPRESSION: Normal unenhanced CT scan of the brain. Electronically Signed: Gopal Ramirez MD ([place]) at 8:09 EST Reading Location ID and State: [address] [place] [address] , Service support , Discharge Plan Triage Chief Complaint: Fall ED Provider: Jose Holder Dx/Rx/DC Orders Clinical Impression: Head injury, Chronic anticoagulation, Epistaxis due to trauma, Abrasion of forehead Instructions: ED Head Injury (Adult) Prescriptions: No Action tizanidine 2 mg capsule 2 mg PO QHS PRN (Reason: muscle spasticity) Qty: 20 RF: 0 topiramate 200 MG tablet 200 mg PO BID RF: 0 vitamin B complex 1 EACH capsule 2 ea PO DAILY RF: 0 fluoxetine 20 MG capsule 40 mg PO DAILY RF: 0 rizatriptan [Maxalt] 10 mg tablet 10 mg PO ONCE PRN (Reason: Migraine Headache) RF: 0 Pradaxa 150 mg capsule 150 mg PO BID Qty: 60 RF: 0 prednisone 10 mg tablet RF: 0 rizatriptan 10 mg tablet RF: 0 prazosin 5 mg capsule RF: 0 promethazine 25 mg tablet RF: 0 zolpidem 5 mg tablet RF: 0 buspirone 15 mg tablet RF: 0 naproxen [Naprosyn] 500 mg tablet 500 mg PO BID PRN (Reason: pain) Qty: 20 RF: 0 lidocaine [Lidoderm] 5 % adhesive patch,medicated 1 patch topical DAILY Qty: 6 RF: 0 cephalexin 500 mg capsule 500 mg PO Q6 Qty: 40 RF: 0 promethazine 25 mg tablet 25 mg PO Q6H PRN (Reason: nausea and vomiting) Qty: 20 RF: 0 Primary Care Provider: Ki Weldon Referrals: Ki Weldon MD [Primary Care Provider] - As Needed Disposition Disposition: Home, Self Care
[2021-09-06] MEDS: proMETHazine 25 MG Tablet PO (07:45)
[2021-09-06] MEDS: Ketorolac 60 MG/2 ML Vial IM (07:45)
[2021-09-06 08:19] VITALS: BP 118/63; PULSE 72; RESP 15; O2SAT 98
== END 2021-09-06 08:19 | disposition home or self-care (01) ==
LOC: ED 07:51
PROVIDERS: Emergency Provider Emergency Medicine; PCP Family Medicine; Visit Provider Emergency Medicine
DX: S00.81XA Abrasion of other part of head, initial encounter (principal); Z68.41 Body mass index [BMI] 40.0-44.9, adult; D68.51 Activated protein C resistance; W06.XXXA Fall from bed, initial encounter; E66.9 Obesity, unspecified; R04.0 Epistaxis; F32.A Depression, unspecified; F41.9 Anxiety disorder, unspecified; Z79.01 Long term (current) use of anticoagulants; Z79.899 Other long term (current) drug therapy; Z86.73 Personal history of transient ischemic attack (TIA), and cerebral infarction without residual deficits; Z86.711 Personal history of pulmonary embolism
CPT/HCPCS: 70450; 96372; 99283

== ENCOUNTER 2021-10-10 16:34 | Emergency (ER) | payer MEDICAID, SELFPAY ==
[2021-10-10 16:35] VITALS: BP 138/77; PULSE 109; RESP 16; TEMP 36.6; O2SAT 98; BMI 41.5
--- NOTE | 2021-10-10 17:35 | EDS_ITS ---
HPI History of Present Illness Chief Complaint: Headache Informant: patient Onset/Context/Timing Onset: Days (4) Context: Sudden Timing: Continuous Quality -Headache: Positive for Similar Prior Headaches Location: Right-sided Worsened by: Nothing Relieved by: Nothing Associated Symptoms/Injury Associated Symptoms: Positive for Nausea, Vomiting, Visual Changes (Scotoma) and Photophobia; Negative for Fever, Sore Throat, Sinus Pressure, Numbness, Tingling, Blurred Vision and Visual Loss Injury - FALL: Negative for Direct Trauma Narrative Narrative: Patient presents with a migraine headache that began 4 days ago. Patient states it began rather suddenly. Patient states this is similar to prior migraine headaches. Patient states she was unable to see her neurologist over the last 4 days. Patient went to her primary care physician today who referred her to the emergency department for management of her migraine headache. Patient states nothing makes her headache worse and nothing makes it better. Patient admits to some nausea and vomiting. Patient admits to some scotoma. Patient also admits to some photophobia. [facility] Medical History Anxiety Depression DVT (deep venous thrombosis) Factor V Leiden Kidney stones Ovarian cyst PCOS (polycystic ovarian syndrome) PTSD (post-traumatic stress disorder) Pulmonary embolism TIA (transient ischemic attack) Home Medications topiramate 200 mg PO BID 09/10/18 [History Last Taken 11/22/19 22:00] fluoxetine 40 mg PO DAILY 12/24/19 [History Last Taken Unknown] rizatriptan [Maxalt] 10 mg PO ONCE PRN 02/03/21 [History Last Taken Unknown] buspirone 15 mg PO TID 06/06/21 [History Last Taken Unknown] naproxen [Naprosyn] 500 mg PO BID PRN #20 tab 06/06/21 [Rx Last Taken Unknown] prazosin 5 mg PO DAILY 06/06/21 [History Last Taken Unknown] prednisone 06/06/21 [History Last Taken Unknown] promethazine 25 mg PO Q6H PRN PRN 06/06/21 [History Last Taken Unknown] cyclobenzaprine 10 mg PO Q8H PRN PRN 10/10/21 [History Last Taken Unknown] magnesium 500 mg PO BID 10/10/21 [History Last Taken Unknown] vitamin B complex [B Complex] 2 cap PO DAILY 10/10/21 [History Last Taken Unknown] Allergy/AdvReac Type Severity Reaction Status Date / Time furosemide [From Lasix] Allergy Hives Verified 10/10/21 16:36 Iodinated Contrast Media Allergy Hives Verified 10/10/21 16:36 ondansetron [From Zofran] Allergy Hives Verified 10/10/21 16:36 propranolol Allergy Angioedema Verified 10/10/21 16:36 sumatriptan [From Imitrex] Allergy CHEST PAIN Verified 10/10/21 16:36 AND PALPITATIONS prochlorperazine AdvReac AGITATION Verified 10/10/21 16:36 [From Compazine] AND ANXIOUS Surgical History H/O tubal ligation History of cholecystectomy Hx of cholecystectomy Social History Smoking Status: Never smoker substance use type: does not use ROS ROS ED Constitutional Constitutional ED: Denies chills or fever(s) Eyes Eyes: Reports blurry vision; Denies diplopia ENT ENT ED: Denies rhinorrhea or sore throat Cardiovascular Cardiovascular: Denies chest pain or palpitations Respiratory/Chest Respiratory/Chest: Denies cough or dyspnea Gastrointestinal Gastrointestinal: Reports nausea and vomiting Genitourinary Genitourinary ED: Denies dysuria or hematuria Musculoskeletal Musculoskeletal: Denies back pain or neck pain Integumentary Reports rash; Denies abscess Neurologic Neurologic: Reports headache(s); Denies weakness Allergic/Immunologic Allergic/Immunologic ED: Denies mouth swelling or urticaria EXAM Physical Exam Const Vital Signs: 10/10/21 16:35 10/10/21 18:20 10/10/21 19:58 Temperature 98 F Temperature Source Temporal Pulse Rate 109 H 109 H Respiratory Rate 16 16 Blood Pressure 138/77 H 153/103 H Blood Pressure Mean 97 119 Pulse Ox 98 99 Oxygen Delivery Method Room Air Room Air Room Air 10/10/21 20:54 10/10/21 22:05 Temperature 97.8 F Temperature Source Temporal Pulse Rate 79 78 Respiratory Rate 18 17 Blood Pressure 144/88 H 142/96 H Blood Pressure Mean 106 111 Pulse Ox 99 98 Oxygen Delivery Method Room Air Room Air Positive well nourished and well developed General Appearance ED: well developed and NAD HEENT Reports moist mucous membranes Neck supple and no JVD Resp normal respiratory effort and clear to auscultation bilaterally Cardio regular rate, regular rhythm and no murmurs GI normal to inspection, nondistended, normoactive bowel sounds and non-tender Palpation: soft Extremity normal to inspection General Extremety ED: Negative for edema or tenderness General Extremity: Negative for edema Neuro oriented x3, CN's II-XII intact bilaterally and no sensory deficits noted Sensorium / Orientation: awake and alert Motor Exam: strength 5/5 throughout Psych mental status grossly normal Skin no rashes or lesions noted MDM MDM MDM Narrative Medical decision making narrative: Patient brought her neurologist care plan with her. This includes IV Benadryl, Decadron, and Phenergan as first-line treatment. Patient was advised that we are unable to give IV Phenergan but we will give her IV Benadryl and Decadron and IM Phenergan. Patient was given IV ketamine, IM Norflex, another dose of IM Phenergan, and oxygen was ordered. Patient was still having headache after this. Patient was given Reglan and another dose of Benadryl. Patient had no improvement with this. Patient was given a repeat dose of Decadron a repeat dose of Phenergan and a dose of Depacon. Patient still was not feeling any better after this. Patient was given a dose of morphine. Patient will be discharged home. Patient was instructed to follow-up with her neurologist tomorrow. Patient understood and was agreeable with the plan. All questions were answered. Discharge Plan Triage Chief Complaint: Headache ED Provider: Justyn Pendleton Dx/Rx/DC Orders Clinical Impression: Headache, migraine, Cephalgia Instructions: ED, Migraine (Classical) Prescriptions: No Action topiramate 200 MG tablet 200 mg PO BID RF: 0 fluoxetine 20 MG capsule 40 mg PO DAILY RF: 0 rizatriptan [Maxalt] 10 mg tablet 10 mg PO ONCE PRN (Reason: Migraine Headache) RF: 0 prednisone 10 mg tablet RF: 0 prazosin 5 mg capsule 5 mg PO DAILY RF: 0 promethazine 25 mg tablet 25 mg PO Q6H PRN PRN (Reason: nausea) RF: 0 buspirone 15 mg tablet 15 mg PO TID RF: 0 naproxen [Naprosyn] 500 mg tablet 500 mg PO BID PRN (Reason: pain) Qty: 20 RF: 0 cyclobenzaprine 10 mg tablet 10 mg PO Q8H PRN PRN (Reason: Muscle Spasm) RF: 0 magnesium 500 mg Tablet 500 mg PO BID RF: 0 vitamin B complex [B Complex] Capsule 2 cap PO DAILY RF: 0 Primary Care Provider: Ki Weldon Referrals: Ki Weldon MD [Primary Care Provider] - 3-5 Days Activity Restrictions/Additional Instructions: Follow-up with your neurologist in 1 to 2 days. Disposition Disposition: Home, Self Care
[2021-10-10] MEDS: 0.9% Normal Saline 1,000 ML 999 ML IV (18:16)
[2021-10-10] MEDS: proMETHazine 25 MG/ML Syringe 12.5 MG IM ×2 (18:17→19:50)
[2021-10-10] MEDS: DiphenhydrAMINE 50 MG/ML Syringe IV (18:17)
[2021-10-10] MEDS: dexAMETHasone 10 MG/ML Vial IV ×2 (18:17→23:10)
[2021-10-10 18:20] VITALS: BP 153/103; PULSE 109; RESP 16; O2SAT 99
[2021-10-10] MEDS: Ketamine HCl 500 MG/5 ML Vial 30 MG IV (19:49)
[2021-10-10] MEDS: Orphenadrine 60 MG/2 ML Ampul IM (19:52)
[2021-10-10 20:54] VITALS: BP 144/88; PULSE 79; RESP 18; TEMP 36.6; O2SAT 99
[2021-10-10] MEDS: DiphenhydrAMINE 50 MG/ML Syringe 25 MG IV (22:02)
[2021-10-10 22:05] VITALS: BP 142/96; PULSE 78; RESP 17; O2SAT 98
[2021-10-11 00:49] VITALS: PULSE 72; RESP 17
[2021-10-11] MEDS: Morphine 4 MG/ML Syringe IV (00:51)
[2021-10-11 00:59] VITALS: BP 130/76; PULSE 73; RESP 16; O2SAT 98
== END 2021-10-11 01:00 | disposition home or self-care (01) ==
PROVIDERS: Emergency Provider Emergency Medicine; PCP Family Medicine; Visit Provider Emergency Medicine
DX: G43.909 Migraine, unspecified, not intractable, without status migrainosus (principal); D68.2 Hereditary deficiency of other clotting factors; Z79.1 Long term (current) use of non-steroidal anti-inflammatories (NSAID); Z79.899 Other long term (current) drug therapy; Z86.718 Personal history of other venous thrombosis and embolism; Z86.711 Personal history of pulmonary embolism; Z86.73 Personal history of transient ischemic attack (TIA), and cerebral infarction without residual deficits
CPT/HCPCS: 90471; 96361; 96372; 96374; 96375; 96376; 99285; J7030; A4216

== ENCOUNTER 2021-11-28 14:22 | Emergency (ER) | payer MEDICAID, SELFPAY ==
[2021-11-28 14:23] VITALS: BP 150/104; PULSE 91; RESP 18; TEMP 36.3; O2SAT 98; BMI 41.5
--- NOTE | 2021-11-28 15:53 | EX.ED.VIS.HA ---
HPI History of Present Illness Chief Complaint: Headache Informant: patient Onset/Context/Timing Onset: Weeks (1) Context: Sudden Timing: Continuous Quality -Headache: Positive for Similar Prior Headaches Location: Left sided Worsened by: Bending forward Relieved by: Nothing Associated Symptoms/Injury Associated Symptoms: Positive for Nausea, Visual Changes (Floaters) and Photophobia; Negative for Fever, Vomiting, Sore Throat, Sinus Pressure, Numbness, Tingling, Preceding Aura, Blurred Vision and Visual Loss Injury - FALL: Negative for Direct Trauma, Fall and Assault Narrative Narrative: Patient presents with migraine headache that has been constant for the past week. Patient states she saw her neurologist for this during the week. Patient states she was given injections. Patient states that the injections have not helped. Patient states she called her neurologist today who told her to come to the emergency department for infusions for her migraine headache. Patient states that her neurologist has given her protocols for medications which should be prescribed to her in the emergency department. Patient states her headache feels the same as all of her other prior migraine headaches. Patient states it is on the left side of her head. Patient states it is worse whenever she bends her head forward. Patient admits to some nausea but denies any vomiting. Patient admits to some scotoma and floaters. Patient admits to some photophobia. Patient denies any loss of vision. Prior similar symptoms: Yes PFSH PFS Medical History Anxiety Depression DVT (deep venous thrombosis) Factor V Leiden Kidney stones Ovarian cyst PCOS (polycystic ovarian syndrome) PTSD (post-traumatic stress disorder) Pulmonary embolism TIA (transient ischemic attack) Home Medications topiramate 200 mg PO BID 09/10/18 [History Last Taken 11/22/19 22:00] fluoxetine 40 mg PO DAILY 12/24/19 [History Last Taken Unknown] rizatriptan [Maxalt] 10 mg PO ONCE PRN 02/03/21 [History Last Taken Unknown] buspirone 15 mg PO TID 06/06/21 [History Last Taken Unknown] naproxen [Naprosyn] 500 mg PO BID PRN #20 tab 06/06/21 [Rx Last Taken Unknown] prazosin 5 mg PO DAILY 06/06/21 [History Last Taken Unknown] prednisone 06/06/21 [History Last Taken Unknown] promethazine 25 mg PO Q6H PRN PRN 06/06/21 [History Last Taken Unknown] cyclobenzaprine 10 mg PO Q8H PRN PRN 10/10/21 [History Last Taken Unknown] magnesium 500 mg PO BID 10/10/21 [History Last Taken Unknown] vitamin B complex [B Complex] 2 cap PO DAILY 10/10/21 [History Last Taken Unknown] Allergy/AdvReac Type Severity Reaction Status Date / Time furosemide [From Lasix] Allergy Hives Verified 11/28/21 14:24 Iodinated Contrast Media Allergy Hives Verified 11/28/21 14:24 ondansetron [From Zofran] Allergy Hives Verified 11/28/21 14:24 propranolol Allergy Angioedema Verified 11/28/21 14:24 prochlorperazine AdvReac AGITATION Verified 11/28/21 14:24 [From Compazine] AND ANXIOUS Surgical History H/O tubal ligation History of cholecystectomy Hx of cholecystectomy Social History Smoking Status: Never smoker substance use type: does not use ROS ROS ED Constitutional Constitutional ED: Denies chills or fever(s) Eyes Eyes: Denies blurry vision or change in vision ENT ENT ED: Denies rhinorrhea or sore throat Cardiovascular Cardiovascular: Denies chest pain or palpitations Respiratory/Chest Respiratory/Chest: Denies cough or dyspnea Gastrointestinal Gastrointestinal: Reports nausea; Denies vomiting Genitourinary Genitourinary ED: Denies dysuria or hematuria Musculoskeletal Musculoskeletal: Reports neck pain; Denies back pain Integumentary Denies abscess or rash Neurologic Neurologic: Reports headache(s); Denies weakness Allergic/Immunologic Allergic/Immunologic ED: Denies mouth swelling or urticaria EXAM Physical Exam Const Vital Signs: 11/28/21 14:23 11/28/21 17:13 11/28/21 18:43 Temperature 97.3 F L Temperature Source Temporal Pulse Rate 91 87 Respiratory Rate 18 16 Blood Pressure 150/104 H 137/76 H 160/98 H Blood Pressure Mean 119 96 118 Pulse Ox 98 98 98 Oxygen Delivery Method Room Air Room Air Room Air 11/28/21 19:09 11/28/21 19:10 Temperature Temperature Source Pulse Rate 83 Respiratory Rate 16 Blood Pressure 145/79 H Blood Pressure Mean 101 Pulse Ox 99 Oxygen Delivery Method Non-Rebreather Positive well nourished and well developed General Appearance ED: well developed and NAD HEENT Reports moist mucous membranes Neck supple and no JVD Resp normal respiratory effort and clear to auscultation bilaterally Cardio regular rate, regular rhythm and no murmurs GI normal to inspection, nondistended, normoactive bowel sounds and non-tender Palpation: soft Extremity normal to inspection General Extremety ED: Negative for edema or tenderness General Extremity: Negative for edema Neuro oriented x3, CN's II-XII intact bilaterally and no sensory deficits noted Sensorium / Orientation: awake and alert Motor Exam: strength 5/5 throughout Psych mental status grossly normal Skin no rashes or lesions noted MDM MDM MDM Narrative Medical decision making narrative: Patient was given medications according to the protocols that she brought with her. Patient was given an injection of Benadryl 50 mg IV, Phenergan 12.5 mg IM, and Decadron 10 mg IV. Patient had no improvement of her headache after this. Patient was given her second Of injections which included Norflex 60 mg IM, ketamine 30 mg IV, and Phenergan 12.5 mg IM. Patient was also placed on a nonrebreather oxygen mask. Patient states her headache was improving after this. Patient was instructed to rest in a dark quiet room. Patient was instructed to follow-up with her primary care physician and neurologist in 3 to 5 days. Patient understood and was agreeable with the plan. All questions were answered. Discharge Plan Triage Chief Complaint: Headache ED Provider: Justyn Pendleton Dx/Rx/DC Orders Clinical Impression: Migraines, Anxiety, Morbid obesity with BMI of 40.0-44.9, adult Instructions: ED, Migraine (Classical) Prescriptions: No Action topiramate 200 MG tablet 200 mg PO BID RF: 0 fluoxetine 20 MG capsule 40 mg PO DAILY RF: 0 rizatriptan [Maxalt] 10 mg tablet 10 mg PO ONCE PRN (Reason: Migraine Headache) RF: 0 prednisone 10 mg tablet RF: 0 prazosin 5 mg capsule 5 mg PO DAILY RF: 0 promethazine 25 mg tablet 25 mg PO Q6H PRN PRN (Reason: nausea) RF: 0 buspirone 15 mg tablet 15 mg PO TID RF: 0 naproxen [Naprosyn] 500 mg tablet 500 mg PO BID PRN (Reason: pain) Qty: 20 RF: 0 cyclobenzaprine 10 mg tablet 10 mg PO Q8H PRN PRN (Reason: Muscle Spasm) RF: 0 magnesium 500 mg Tablet 500 mg PO BID RF: 0 vitamin B complex [B Complex] Capsule 2 cap PO DAILY RF: 0 Primary Care Provider: Ki Weldon Referrals: Ki Weldon MD [Primary Care Provider] - 3-5 Days Disposition Disposition: Home, Self Care
[2021-11-28] MEDS: DiphenhydrAMINE 50 MG/ML Syringe IV (16:31)
[2021-11-28] MEDS: dexAMETHasone 10 MG/ML Vial IV (16:31)
[2021-11-28] MEDS: 0.9% Normal Saline 1,000 ML 999 ML IV (16:32)
[2021-11-28] MEDS: proMETHazine 25 MG/ML Syringe 12.5 MG IM ×2 (16:36→18:45)
[2021-11-28 17:13] VITALS: BP 137/76; O2SAT 98
--- NOTE | 2021-11-28 17:27 | CM.ED ---
Social Work Note Pt has ED Care Plan. Physician and RN made aware. 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
--- NOTE | 2021-11-28 18:28 | ED.RN ---
Per Dr Pendleton order, pt placed on non-rebreather mask at 15 L for headache relief.
[2021-11-28 18:43] VITALS: BP 160/98; PULSE 87; RESP 16; O2SAT 98
[2021-11-28] MEDS: Orphenadrine 60 MG/2 ML Ampul IM (18:45)
[2021-11-28 19:09] VITALS: PULSE 83; RESP 16; O2SAT 99
[2021-11-28 19:10] VITALS: BP 145/79
[2021-11-28 19:51] VITALS: BP 148/76; PULSE 80; RESP 18
== END 2021-11-28 19:52 | disposition home or self-care (01) ==
PROVIDERS: Emergency Provider Emergency Medicine; PCP Family Medicine; Visit Provider Emergency Medicine
DX: G43.909 Migraine, unspecified, not intractable, without status migrainosus (principal); E66.01 Morbid (severe) obesity due to excess calories; Z68.41 Body mass index [BMI] 40.0-44.9, adult; D68.51 Activated protein C resistance; Z86.718 Personal history of other venous thrombosis and embolism; Z86.711 Personal history of pulmonary embolism; F41.9 Anxiety disorder, unspecified; F32.A Depression, unspecified; Z79.899 Other long term (current) drug therapy; Z79.51 Long term (current) use of inhaled steroids
CPT/HCPCS: 96361; 96372; 96374; 96375; 99283; J7030; A4216

== ENCOUNTER 2021-12-06 22:05 | Emergency (ER) | payer MEDICAID, SELFPAY ==
[2021-12-06 22:06] VITALS: BP 157/104; PULSE 109; RESP 16; TEMP 36.9; O2SAT 99; BMI 41.5
--- NOTE | 2021-12-06 22:25 | CT_ITS ---
EXAM: CT abdomen and pelvis without contrast HISTORY: Pain TECHNIQUE: No intravenous contrast. A radiation dose optimization technique was used for this scan. COMPARISON: None. LIMITATIONS: Motion artifact. LOWER CHEST: Trace bilateral pleural effusions. Mild atelectasis in the lung bases. LIVER: Mildly enlarged. Fatty infiltration. GALLBLADDER: Removed. BILE DUCTS: Normal. PANCREAS: Normal. SPLEEN: Mildly enlarged. ADRENAL GLANDS: Normal. KIDNEYS/URETERS/BLADDER: Normal. AORTA: Normal caliber. BOWEL/MESENTERY: A moderate to large amount of stool is identified. No evidence of colitis. No small bowel obstruction. APPENDIX: Normal. PERITONEUM: Normal. REPRODUCTIVE ORGANS: Normal. BONES/SOFT TISSUES: No acute fracture. OTHER: None. CONCLUSION: No urinary stones or hydronephrosis. Mild hepatosplenomegaly. Electronically Signed: Bj Saravia MD at 0:11 EDT , CT/Abdomen/Pelvis without Cont IMPRESSION: undefined
--- NOTE | 2021-12-06 22:26 | EDS_ITS ---
HPI HPI - GI History of Present Illness Chief Complaint: Abd Pain Detail of Chief Complaint: Abdominal pain that started 2 days ago Informant: patient Abdominal Pain/Flank Pain Current Severity: 02/21 Narrative Narrative: Patient presents with abdominal pain at*about 2 days ago. She states initially pain was crampy and more mild. Has been taken ibuprofen and Tylenol. Pain became more severe today. She describes it as lower abdomen and crampy and sharp. She had some nausea but no vomiting. She denies diarrhea. She denies blood in her stool or black tarry stool. She denies dysuria, urgency, or frequency. She has had a tubal ligation and does not feel like she is as she has not been having intercourse. Patient also states that she started a new blood thinner Eliquis for history of PEs related to factor V Leiden. Patient states since she started the new medication 2 days ago she has been having this abdominal pain. Patient states that she checked her temperature today and had a temperature of 101 at home. Patient was confused by this as she really has not felt sick otherwise. Patient states that she has had similar pains like this in the past with ovarian cyst. Patient has had a cholecystectomy. Prior similar symptoms: Yes PFSH PFSH Medical History Anxiety Depression DVT (deep venous thrombosis) Factor V Leiden Kidney stones Ovarian cyst PCOS (polycystic ovarian syndrome) PTSD (post-traumatic stress disorder) Pulmonary embolism TIA (transient ischemic attack) Home Medications topiramate 200 mg PO BID 09/10/18 [History Last Taken 11/22/19 22:00] fluoxetine 40 mg PO DAILY 12/24/19 [History Last Taken Unknown] rizatriptan [Maxalt] 10 mg PO ONCE PRN 02/03/21 [History Last Taken Unknown] buspirone 15 mg PO TID 06/06/21 [History Last Taken Unknown] naproxen [Naprosyn] 500 mg PO BID PRN #20 tab 06/06/21 [Rx Last Taken Unknown] prazosin 5 mg PO DAILY 06/06/21 [History Last Taken Unknown] prednisone 06/06/21 [History Last Taken Unknown] promethazine 25 mg PO Q6H PRN PRN 06/06/21 [History Last Taken Unknown] cyclobenzaprine 10 mg PO Q8H PRN PRN 10/10/21 [History Last Taken Unknown] magnesium 500 mg PO BID 10/10/21 [History Last Taken Unknown] vitamin B complex [B Complex] 2 cap PO DAILY 10/10/21 [History Last Taken Unknown] Allergy/AdvReac Type Severity Reaction Status Date / Time furosemide [From Lasix] Allergy Hives Verified 12/06/21 22:08 Iodinated Contrast Media Allergy Hives Verified 12/06/21 22:08 ondansetron [From Zofran] Allergy Hives Verified 12/06/21 22:08 propranolol Allergy Angioedema Verified 12/06/21 22:08 prochlorperazine AdvReac AGITATION Verified 12/06/21 22:08 [From Compazine] AND ANXIOUS Surgical History H/O tubal ligation History of cholecystectomy Hx of cholecystectomy Social History Smoking Status: Never smoker substance use type: does not use ROS ROS ED Constitutional Constitutional ED: Reports systems reviewed and no addt'l complaints, except as documented; Denies body ache(s), change in weight or chills Eyes Eyes: Denies acute decrease in peripheral vision, change in vision, double vision or loss of vision ENT ENT ED: Reports none; Denies ear pain, lip swelling, loss taste/smell, neck pain, otalgia or sore throat Cardiovascular Cardiovascular: Reports none; Denies abdominal pain, chest pain with activity, leg edema, lightheadedness, palpitations, rapid heart rate or syncope Respiratory/Chest Respiratory/Chest: Reports none; Denies change in mental status, dry cough, dyspnea, hemoptysis, shortness of breath at rest or shortness of breath with exertion Gastrointestinal Gastrointestinal: Reports none, abdominal pain and nausea; Denies change in stool character, diarrhea, hematemesis, hematochezia, melena, rectal bleeding or vomiting Genitourinary Genitourinary ED: Reports none; Denies abdominal discomfort, anuria, dysuria, genital pain or polyuria Musculoskeletal Musculoskeletal: Reports none; Denies arthralgias, back pain, difficulty walking, extremity pain, muscle weakness or myalgias Integumentary Reports none; Denies abscess or rash Neurologic Neurologic: Reports none; Denies abnormal gait, confusion, focal weakness, frequent falls, headache(s), loss of vision, numbness, paresthesias, radicular pain, vertigo or weakness Psychiatric Psychiatric: Reports systems reviewed and no addt'l complaints, except as documented and none; Denies behavioral changes, confusion, difficulty concentrating, hallucinations, suicidal ideation, tactile hallucinations or visual hallucinations Endocrine Endocrinology: Denies none, cold intolerance, excessive sweating, fatigue or heat intolerance Hematologic/Lymphatic Hematologic/Lymphatic: Reports none; Denies anemia, easy bleeding or easy bruising Allergic/Immunologic Allergic/Immunologic ED: Denies as per HPI, none, lip swelling, mouth swelling, throat swelling, tongue swelling or hives EXAM Physical Exam Const Vital Signs: 12/06/21 22:06 Temperature 98.5 F Temperature Source Temporal Pulse Rate 109 H Respiratory Rate 16 Blood Pressure 157/104 H Blood Pressure Mean 121 Pulse Ox 99 Oxygen Delivery Method Room Air Positive well nourished and well developed General Appearance ED: well developed and NAD HEENT Reports TM's clear and moist mucous membranes normocephalic and atraumatic; Negative for trauma or tenderness Tympanic Membrane ED: Yes TM's clear Eyes PERRL and EOMs intact bilaterally General Eye ED: Negative for pale conjunctiva or scleral icterus Neck no lymphadenopathy, supple and no JVD General: Negative for tenderness Chest Wall inspection of chest normal and palpation of chest normal Chest: Negative for tenderness Resp normal respiratory effort and clear to auscultation bilaterally Effort and Inspection: Negative for respiratory distress or pain with movement Auscultation: Negative for rhonchi, wheezes or diminished lung sounds Cardio regular rate, regular rhythm, S1 normal heart sound, S2 normal heart sound and no murmurs Peripheral Pulses: pulses 2+ throughout GI normal to inspection, nondistended, normoactive bowel sounds, soft to palpation, non-distended and no masses GI Narrative: Patient with some diffuse tenderness over right lower quadrant and suprapubic region as well as the left lower quadrant. There are some mild guarding. There is no rebound, rigidity, or peritoneal signs. No masses palpated however patient is obese and exam somewhat difficult. Palpation: tender Back/Spine no CVA tenderness and no thoracic nor lumbar tenderness Extremity normal to inspection General Extremety ED: Negative for edema General Extremity: Negative for edema Neuro oriented x3, CN's II-XII intact bilaterally, no sensory deficits noted and gait normal Sensorium / Orientation: awake, alert, oriented to person, oriented to place and oriented to time Motor Exam: strength 5/5 throughout and strength abnormal Psych mental status grossly normal Skin no rashes or lesions noted and no wounds MDM MDM MDM Narrative Medical decision making narrative: I recommended IV and I ordered a antiemetic for patient of Jossue which she refused. She refused IV. She refused Phenergan p.o. Patient was ordered Toradol IM. Lab work-up was unremarkable. CT scan of the abdomen pelvis was unremarkable. Patient eloped from the emergency department prior to results of her CT scan. Work-up in department was unremarkable. Lab Data Attestation: I reviewed the patient's lab results. Labs: Laboratory Results - last 24 hr 12/06/21 12/06/21 12/06/21 22:35 22:54 22:54 WBC 6.9 RBC 4.30 Hgb 12.4 Hct 36.6 L MCV 85.1 MCH 28.8 MCHC 33.9 RDW Std Deviation 37.4 RDW Coeff of Millie 12.1 Plt Count 285 MPV 8.6 Immature Gran % (Auto) 0.300 Neut % (Auto) 51.2 Lymph % (Auto) 40.3 [place] % (Auto) 5.7 Eos % (Auto) 2.2 Baso % (Auto) 0.3 Absolute Neuts (auto) 3.5 Absolute Lymphs (auto) 2.78 Nucleated RBC % 0 Sodium 136 Potassium 3.7 Chloride 102 Carbon Dioxide 26.0 Anion Gap 8 BUN 21 H Creatinine 0.78 Estim Creat Clear Calc 80.31 Est GFR (MDRD) Af Amer 111 Est GFR (MDRD) Non-Af 92 BUN/Creatinine Ratio 26.8 H Glucose 178 H Lactic Acid Calcium 9.6 Total Bilirubin 0.20 AST 14 L ALT 29 Alkaline Phosphatase 91 Total Protein 6.8 Albumin 3.2 Globulin 3.6 Albumin/Globulin Ratio 0.9 Lipase 53 L Serum , Qual Urine Color Yellow Urine Clarity Clear Urine pH 6.0 Ur Specific Lissie 1.025 Urine Protein Negative Urine Glucose (UA) Normal Urine Ketones Negative Urine Occult Blood Negative Urine Nitrite Negative Urine Bilirubin Negative Urine Urobilinogen Normal Ur Leukocyte Esterase Negative Urine RBC 0 SEEN Urine WBC 0-5 SEEN Ur Squamous Epith Cells 5-10 SEEN Urine Bacteria 1+ Urine Mucus 0 SEEN 12/06/21 12/06/21 22:54 22:54 WBC RBC Hgb Hct MCV MCH MCHC RDW Std Deviation RDW Coeff of Millie Plt Count MPV Immature Gran % (Auto) Neut % (Auto) Lymph % (Auto) [place] % (Auto) Eos % (Auto) Baso % (Auto) Absolute Neuts (auto) Absolute Lymphs (auto) Nucleated RBC % Sodium Potassium Chloride Carbon Dioxide Anion Gap BUN Creatinine Estim Creat Clear Calc Est GFR (MDRD) Af Amer Est GFR (MDRD) Non-Af BUN/Creatinine Ratio Glucose Lactic Acid 0.7 Calcium Total Bilirubin AST ALT Alkaline Phosphatase Total Protein Albumin Globulin Albumin/Globulin Ratio Lipase Serum , Qual NEGATIVE Urine Color Urine Clarity Urine pH Ur Specific Lissie Urine Protein Urine Glucose (UA) Urine Ketones Urine Occult Blood Urine Nitrite Urine Bilirubin Urine Urobilinogen Ur Leukocyte Esterase Urine RBC Urine WBC Ur Squamous Epith Cells Urine Bacteria Urine Mucus Radiography Diagnostic Testing: Clinical Impression(s) from Imaging Studies Abdomen/Pelvis CT 12/06/21 22:25 IMPRESSION: undefined Discharge Plan Triage Chief Complaint: Abd Pain ED Provider: Autumn Hernandez Dx/Rx/DC Orders Clinical Impression: Abdominal pain Prescriptions: No Action topiramate 200 MG tablet 200 mg PO BID RF: 0 fluoxetine 20 MG capsule 40 mg PO DAILY RF: 0 rizatriptan [Maxalt] 10 mg tablet 10 mg PO ONCE PRN (Reason: Migraine Headache) RF: 0 prednisone 10 mg tablet RF: 0 prazosin 5 mg capsule 5 mg PO DAILY RF: 0 promethazine 25 mg tablet 25 mg PO Q6H PRN PRN (Reason: nausea) RF: 0 buspirone 15 mg tablet 15 mg PO TID RF: 0 naproxen [Naprosyn] 500 mg tablet 500 mg PO BID PRN (Reason: pain) Qty: 20 RF: 0 cyclobenzaprine 10 mg tablet 10 mg PO Q8H PRN PRN (Reason: Muscle Spasm) RF: 0 magnesium 500 mg Tablet 500 mg PO BID RF: 0 vitamin B complex [B Complex] Capsule 2 cap PO DAILY RF: 0 Primary Care Provider: Ki Weldon Referrals: Ki Weldon MD [Primary Care Provider] - Disposition Disposition: Elopement
--- NOTE | 2021-12-06 22:41 | ED.RN ---
pt. refuses iv.
[2021-12-06 22:43] LABS: Mucous, Urine 0 SEEN /hpf (<or=2+); Red Blood Cells-Urine 0 SEEN /hpf (0-5)
[2021-12-06 22:44] LABS: Color, Urine Yellow (Yellow); Glucose, Dipstick Normal (Normal); Ketone-Dipstick Negative (Negative); Leukocyte Esterase-Dipstick Negative /ul (Negative); Nitrite-Dipstick Negative (Negative); Occult Blood-Urine Negative /ul (Negative); Protein-Dipstick Negative (Negative); Specific Gravity, Urine 1.025 (1.002-1.030); Urine Bilirubin Dipstick Negative (Negative); Urine Clarity Clear (Clear); Urine Urobilinogen Normal (Normal)
[2021-12-06 23:05] LABS: Squamous Epithelial Cells - UA 5-10 SEEN /hpf (5-10); White Blood Cells 0-5 SEEN /hpf (0-5)
[2021-12-06 23:06] LABS: Bacteria 1+ /hpf (None Seen)
[2021-12-06 23:08] LABS: Absolute Lymphocyte Count 2.78 X10^3/uL (0.83-4.51); Absolute Neutrophil Count 3.5 X10^3/uL (2.0-7.7); Basophil# 0.02 X10^3/uL; Basophil% 0.3 % (0-1); Eosinophil# 0.15 X10^3/uL; Eosinophils% 2.2 % (0-5); Hematocrit 36.6 % (37-47); Hemoglobin 12.4 g/dL (12.0-15.0); Lymphocyte # 2.78 X10^3/ul (0.83-4.51); Lymphocyte % 40.3 % (19-41); Mean Corp Hgb Conc 33.9 g/dL (32-36); Mean Corpuscular Hgb 28.8 pg (27.0-32.0); Mean Corpuscular Volume 85.1 fL (81-99); Mean Platelet Vol. 8.6 fl (6.2-12.0); Monocyte# 0.39 X10^3/uL; Monocyte% 5.7 % (0-10); NRBC Flagged by Analyzer 0 % (0-5); Neutrophil # 3.54 X10^3/uL (2.7-7.7); Neutrophil % 51.2 % (47-70); Platelet Count 285 K/mm3 (150-450); RBC Distribution Width CV 12.1 % (11.6-14.6); RBC Distribution Width SD 37.4 fl (35.1-43.9); White Blood Count 6.9 K/mm3 (4.4-11.0)
[2021-12-06 23:31] LABS: Internal QC Validated? YES +Cl - CLEAR BKGD; Pregnancy, Serum, hCG Quali. NEGATIVE Negative
[2021-12-06 23:34] LABS: ALB/GLOB Ratio 0.9 RATIO (0.9-2.4); AST(SGOT) 14 U/L (15-37); Alanine Aminotransfer ALT/SGPT 29 U/L (13-56); Albumin, Serum 3.2 g/dL (3.2-5.0); Alkaline Phosphatase 91 U/L (45-117); Anion Gap 8 (5-15); BUN 21 mg/dL (7-18); BUN/Creat Ratio 26.8 RATIO (10-20); Calcium,Total 9.6 mg/dL (8.5-10.1); Chloride 102 mmol/L (98-107); Creatinine, Serum 0.78 mg/dL (0.55-1.02); EST Glomerular Filtration Rate 92 mL/min (>60); Est Glom Filt Rate - Afr Amer 111 mL/min (>60); Estimated Creatinine Clearance 80.31 ml/min; Globulin 3.6 g/dL (2.2-4.2); Glucose 178 mg/dL (74-106); Lipase 53 U/L (73-393); Potassium 3.7 mmol/L (3.5-5.1); Protein, Total 6.8 g/dL (6.4-8.2); Sodium Level 136 mmol/L (136-145)
[2021-12-06 23:37] LABS: Lactic Acid 0.7 mmol/L (0.4-1.9)
== END 2021-12-07 00:32 | disposition left against medical advice (07) ==
PROVIDERS: Emergency Provider Emergency Medicine; PCP Family Medicine; Visit Provider Emergency Medicine
DX: R10.9 Unspecified abdominal pain (principal); D68.51 Activated protein C resistance; R11.0 Nausea; Z86.711 Personal history of pulmonary embolism; Z79.01 Long term (current) use of anticoagulants; Z86.718 Personal history of other venous thrombosis and embolism; Z79.899 Other long term (current) drug therapy
CPT/HCPCS: 74176; 80053; 81001; 83605; 83690; 84703; 85025; 99282; J7030

== ENCOUNTER 2021-12-08 01:13 | Observation (INO) | payer MEDICAID, SELFPAY ==
[2021-12-08] VITALS (7 sets, daily range): BP systolic 131–160; BP diastolic 81–90; PULSE 100–107; RESP 15–18; TEMP 36.3–36.4; O2SAT 96–100; BMI 46.9
--- NOTE | 2021-12-08 01:20 | ED.RN ---
Pt denies any further N/T to any part of body during triage. Upon physicians assessment she has states she also has numbness to left arm and leg.
--- NOTE | 2021-12-08 01:26 | EKG12_ITS ---
Test Reason : DYSRHYTHMIA Blood Pressure : / mmHG Vent. Rate : 098 BPM Atrial Rate : 098 BPM P-R Int : 178 ms QRS Dur : 090 ms QT Int : 348 ms P-R-T Axes : 038 020 029 degrees QTc Int : 444 ms Normal sinus rhythm Normal ECG Confirmed by CLEO HOLLIS, ROSE ([id number]), film editor supervisor FAWN HAYWOOD ([id number]) on 12/08/2021 10:25:23 AM Referred By: TL Confirmed By:ROSE GALLO MD
--- NOTE | 2021-12-08 01:26 | CT_ITS ---
We are attempting to reach an attending provider to discuss findings. An addendum with communication details will be sent when the communication is complete. EXAM: CT brain without contrast HISTORY: Neuro deficit, acute, stroke suspected TECHNIQUE: No intravenous contrast. A radiation dose optimization technique was used for this scan. COMPARISON: None. LIMITATIONS: None. BRAIN: Normal garcia/white matter differentiation. VENTRICLES: No hydrocephalus. EXTRA-AXIAL SPACES: No acute hemorrhage. CALVARIUM/SKULL BASE: No acute fracture. FACE/SINUSES: No significant abnormality. SOFT TISSUES: Normal. OTHER: None. CONCLUSION: No acute intracranial abnormality. Electronically Signed: Bj Saravia MD at 1:45 EDT , CT/STROKE Brain/Head without Cont IMPRESSION: undefined
--- NOTE | 2021-12-08 01:28 | ED.VIS.STROK ---
HPI History of Present Illness Chief Complaint: Numb/Ting Informant: patient Narrative Narrative: Brought in by EMS from home concerning headache and paresthesias waking her 12:30 AM lasted an hour ago. She states she felt tingling throughout her face that noted drooping of her lip on the right side. Denies hemiparesis denies speech changes. History of multiple TIAs in the past she states most recent was 18 months ago managed at facilities. She states she was hospitalized for 5 days. She states she was on aspirin and Plavix however Plavix made her feel off therefore that was stopped. She is currently not on aspirin therapy. She reports history of factor V Leiden she has had multiple PEs and DVTs, she was on Pradaxa however ran out 3 weeks ago. She states she is in the midst of changing PCPs. She is followed by currently neurology down here Dr. Villa. She is unable to tell me the diagnosis except for TIA from the work-up 18 months ago. History of PTSD, depression and anxiety. History of PCOS. States was normal going to bed. Patient went to bed at 10 PM. Prior similar symptoms: Yes PFSH [facility] Medical History (Updated 12/08/21 @ 02:[address] Vaibhav Clay MD) Anxiety Depression DVT (deep venous thrombosis) Factor V Leiden Kidney stones Ovarian cyst PCOS (polycystic ovarian syndrome) PTSD (post-traumatic stress disorder) Pulmonary embolism TIA (transient ischemic attack) Home Medications topiramate 200 mg PO BID 09/10/18 [History Last Taken 11/22/19 22:00] fluoxetine 40 mg PO DAILY 12/24/19 [History Last Taken Unknown] rizatriptan [Maxalt] 10 mg PO ONCE PRN 02/03/21 [History Last Taken Unknown] buspirone 15 mg PO TID 06/06/21 [History Last Taken Unknown] naproxen [Naprosyn] 500 mg PO BID PRN #20 tab 06/06/21 [Rx Last Taken Unknown] prazosin 5 mg PO DAILY 06/06/21 [History Last Taken Unknown] promethazine 25 mg PO Q6H PRN PRN 06/06/21 [History Last Taken Unknown] cyclobenzaprine 10 mg PO Q8H PRN PRN 10/10/21 [History Last Taken Unknown] magnesium 500 mg PO BID 10/10/21 [History Last Taken Unknown] vitamin B complex [B Complex] 2 cap PO DAILY 10/10/21 [History Last Taken Unknown] Allergy/AdvReac Type Severity Reaction Status Date / Time furosemide [From Lasix] Allergy Hives Verified 12/08/21 01:17 Iodinated Contrast Media Allergy Hives Verified 12/08/21 01:17 ondansetron [From Zofran] Allergy Hives Verified 12/08/21 01:17 propranolol Allergy Angioedema Verified 12/08/21 01:17 prochlorperazine AdvReac AGITATION Verified 12/08/21 01:17 [From Compazine] AND ANXIOUS Family History Other CVA (cerebral vascular accident) Heart disease Hypertension Thyroid disorder Surgical History H/O oophorectomy H/O tubal ligation History of cholecystectomy Hx of cholecystectomy Social History Smoking Status: Never smoker substance use type: does not use ROS ROS ED Constitutional Constitutional ED: Denies chills, fever(s) or sweats Eyes Eyes: Denies change in vision ENT ENT ED: Denies dysphagia or sore throat Cardiovascular Cardiovascular: Denies chest pain, leg edema, palpitations or racing heartbeat Respiratory/Chest Respiratory/Chest: Denies cough, dyspnea or dyspnea on exertion Gastrointestinal Gastrointestinal: Denies abdominal pain, diarrhea, nausea or vomiting Genitourinary Genitourinary ED: Denies dysuria, hematuria or urinary frequency Musculoskeletal Musculoskeletal: Denies back pain, extremity pain or neck pain Integumentary Denies rash or wounds Neurologic Neurologic: Reports headache(s) and paresthesias; Denies weakness EXAM Physical Exam Const Vital Signs: 12/08/21 01:13 12/08/21 01:23 12/08/21 01:26 Temperature 97.4 F L Temperature Source Temporal Pulse Rate 107 H 102 H 101 H Respiratory Rate 16 15 16 Blood Pressure 160/85 H 131/88 H 137/81 H Blood Pressure Mean 110 102 99 Pulse Ox 98 99 98 Oxygen Delivery Method Room Air Room Air Room Air 12/08/21 01:41 Temperature Temperature Source Pulse Rate Respiratory Rate Blood Pressure Blood Pressure Mean Pulse Ox 100 Oxygen Delivery Method Room Air Positive well nourished and well developed General Appearance ED: well developed and NAD HEENT Reports moist mucous membranes normocephalic and atraumatic Nose: other Other Details: Slight right lip droop. Eyes PERRL, EOMs intact bilaterally and conjunctivae normal General Eye ED: Yes normal appearance of both eyes Neck no lymphadenopathy and supple General: Negative for tenderness Chest Wall Chest: Negative for tenderness Resp normal respiratory effort and normal air movement Effort and Inspection: symmetric chest movement; Negative for respiratory distress Cardio regular rate, regular rhythm and no murmurs Peripheral Pulses: pulses 2+ throughout GI normal to inspection, nondistended, normoactive bowel sounds and non-tender Palpation: Negative for guarding or rebound tenderness present Back/Spine no CVA tenderness and no thoracic nor lumbar tenderness Extremity normal to inspection General Extremety ED: Negative for edema or tenderness General Extremity: Negative for edema Neuro oriented x3 and CN's II-XII intact bilaterally Sensorium / Orientation: awake and alert Skin no rashes or lesions noted and no wounds STROKE Vital Signs/Narrative: Vital Signs Temp Pulse Resp BP Pulse Ox 12/08/21 01:41 100 12/08/21 01:26 101 H 16 137/81 H 98 12/08/21 01:23 102 H 15 131/88 H 99 12/08/21 01:13 97.4 F L 107 H 16 160/85 H 98 Inital Vital Signs reviewed: Yes NIHSS Initial: 1a Level of Consciousness: 0 1b LOC Questions (Score 2 if aphasic/stupor): 0 1c LOC Commands (Only score 1st attempt): 0 2 Best Gaze (If aphasic, use reflexive mvmts.): 0 3 Visual: 0 4 Facial Palsy: 1 5 Motor Arm Right (UN = amputation/fusion): 0 5 Motor Arm Left: 0 6 Motor Leg Right: 1 6 Motor Leg Left: 1 7 Limb ataxia (Only + if out of proportion): 0 8 Sensory (Aphasia/stupor=0 or 1, coma=2): 1 9 Best Language: 0 10 Dysarthria (mute, coma=2, intubated=UN): 0 11 Extinction and Inattention (only scored if +): 0 Total Score: 4 MDM MDM MDM Narrative Medical decision making narrative: Patient presenting with headache with right lip droop. Her NIH is a 4 an exam right lip droop, slight drifting of both lower extremities and paresthesias left side of the face arm and leg compared to the right side. Due to her deficits symptoms within an hour stroke team was activated. She reports IV dye allergy for which she has been pretreated in the past to get the image studies. 0200: CT brain negative. Stroke neurologist Dr. Mota evaluated the patient bedside on the monitor. I was there present. Discussed patient's history her allergies and her deficits. Discussed her being off her Pradaxa for 3 weeks. She currently does not feel there is an LVO. With her IV dye allergy, she states no emergent CTA at this time even with pretreatment. She states MRA can be done in the hospital with the MRI. She recommended her restarting her Pradaxa while in the hospital due to her clotting disorder. No other antiplatelets at this time. Patient requesting and ordered for Reglan and benadryl IV for headache. 0210: I spoke with hospitalist, Dr. Clay, updated for admission to PCU. labs pending. 0252: EKG sinus rhythm. Labs are all stable with hemoglobin electrolytes. 0300: Chest x-ray 1 view reviewed by myself shows no acute process. Lab Data Attestation: I reviewed the patient's lab results. Labs: Laboratory Results - last 24 hr 12/08/21 01:28 POC Glucose 194 H Radiography Diagnostic Testing: Clinical Impression(s) from Imaging Studies Brain CT 12/08/21 01:26 IMPRESSION: undefined ADDENDUM: 12/08/21 0156 IMPRESSION: undefined EKG Initial EKG: Attestation: I personally reviewed and interpreted this EKG as follows: Comments: Sinus rate of 98, no ST changes, isolated T wave inversion in leads III. Nonspecific. Stroke Documentation Questions Stroke Team Activated: Yes Reviewed Inclusion/Exclusion criteria: Yes Was Patient considered for Endovascular Intervention?: No-CTA negative, determined not to be an endovascular candidate (also IV dye allergy) IV Alteplase (t-PA) Administered: No No contraindications for IV Alteplase (t-PA) administration.: No Not given: Patient refusal: No Critical Care Time Critical Care Time: Yes Critical care time (excluding procedures): 30-74 minutes, Discussing w/Patient &/or Family/[place], Discussing w/Consultants, Arranging Admission or Transfer, Performing Direct Patient Care at Bedside and - (35 minutes) Discharge Plan Dx/Rx/DC Orders Clinical Impression: TIA (transient ischemic attack), Factor V Leiden, MDD (major depressive disorder), PTSD (post-traumatic stress disorder), Pulmonary emboli, Headache, Paresthesia Disposition Disposition: Acute Care [facility]
[2021-12-08 01:35] LABS: Bedside Glucose 194 mg/dL (74-106)
--- NOTE | 2021-12-08 01:38 | ED.RN ---
CALLED STROKE @[phone] FAXED FACE SHEET TO [facility]
[2021-12-08 02:20] LABS: Absolute Lymphocyte Count 2.62 X10^3/uL (0.83-4.51); Absolute Neutrophil Count 2.6 X10^3/uL (2.0-7.7); Basophil# 0.02 X10^3/uL; Basophil% 0.3 % (0-1); Eosinophil# 0.14 X10^3/uL; Eosinophils% 2.4 % (0-5); Hematocrit 34.2 % (37-47); Hemoglobin 11.7 g/dL (12.0-15.0); Lymphocyte # 2.62 X10^3/ul (0.83-4.51); Lymphocyte % 45.8 % (19-41); Mean Corp Hgb Conc 34.2 g/dL (32-36); Mean Corpuscular Hgb 28.9 pg (27.0-32.0); Mean Corpuscular Volume 84.4 fL (81-99); Mean Platelet Vol. 8.6 fl (6.2-12.0); Monocyte# 0.34 X10^3/uL; Monocyte% 5.9 % (0-10); NRBC Flagged by Analyzer 0 % (0-5); Neutrophil # 2.59 X10^3/uL (2.7-7.7); Neutrophil % 45.4 % (47-70); Platelet Count 256 K/mm3 (150-450); RBC Distribution Width CV 12.1 % (11.6-14.6); RBC Distribution Width SD 36.9 fl (35.1-43.9); Red Blood Count 4.05 M/mm3 (4.2-5.4); White Blood Count 5.7 K/mm3 (4.4-11.0)
--- NOTE | 2021-12-08 02:23 | HP.PCM.HOS_ITS ---
HPI - General General Date of Admission: 12/08/21 HPI Narrative ERIN TORRES, is a 31 F with a significant history of anxiety, depression; factor V Leiden deficiency with DVT and PEs; PCOS; and multiple TIAs who presents to the emergency department with strokelike symptoms within 1 hour after her symptoms started. Reportedly patient woke up from bed around 12:30 AM with headache and a tingling left face. She reported that the tingling on her face was on her entire face but it was more pronounced to her left side of the face. She looked in the mirror and she saw right lip droop. Also she reports tingling of her left. Emergency department doctor reports drift in bilateral legs. Patient reports last TIA evaluation 18 months ago at hospital. Reportedly she was started on Plavix but Plavix was discontinued secondary to adverse reactions. Patient is on Pradaxa but reportedly she ran out of Pradaxa about 3 weeks ago and she is in the process of changing PCPs. [facility] Medical History (Updated 12/08/21 @ 02:[address] Vaibhav Clay MD) Anxiety Depression DVT (deep venous thrombosis) Factor V Leiden Kidney stones Ovarian cyst PCOS (polycystic ovarian syndrome) PTSD (post-traumatic stress disorder) Pulmonary embolism TIA (transient ischemic attack) Home Medications topiramate 200 mg PO BID 09/10/18 [History Last Taken 11/22/19 22:00] fluoxetine 40 mg PO DAILY 12/24/19 [History Last Taken Unknown] rizatriptan [Maxalt] 10 mg PO ONCE PRN 02/03/21 [History Last Taken Unknown] buspirone 15 mg PO TID 06/06/21 [History Last Taken Unknown] naproxen [Naprosyn] 500 mg PO BID PRN #20 tab 06/06/21 [Rx Last Taken Unknown] prazosin 5 mg PO DAILY 06/06/21 [History Last Taken Unknown] promethazine 25 mg PO Q6H PRN PRN 06/06/21 [History Last Taken Unknown] cyclobenzaprine 10 mg PO Q8H PRN PRN 10/10/21 [History Last Taken Unknown] magnesium 500 mg PO BID 10/10/21 [History Last Taken Unknown] vitamin B complex [B Complex] 2 cap PO DAILY 10/10/21 [History Last Taken Unknown] Allergy/AdvReac Type Severity Reaction Status Date / Time furosemide [From Lasix] Allergy Hives Verified 12/08/21 01:17 Iodinated Contrast Media Allergy Hives Verified 12/08/21 01:17 ondansetron [From Zofran] Allergy Hives Verified 12/08/21 01:17 propranolol Allergy Angioedema Verified 12/08/21 01:17 prochlorperazine AdvReac AGITATION Verified 12/08/21 01:17 [From Compazine] AND ANXIOUS Family History Other CVA (cerebral vascular accident) Heart disease Hypertension Thyroid disorder Surgical History H/O oophorectomy H/O tubal ligation History of cholecystectomy Hx of cholecystectomy Social History Smoking Status: Never smoker substance use type: does not use ROS ROS Narrative Pertinent positives and pertinent negatives as noted in HPI. All other systems were reviewed and are negative. Vital Signs Vital Signs Vital Signs: 12/08/21 01:13 12/08/21 01:23 12/08/21 01:26 Temperature 97.4 F L Temperature Source Temporal Pulse Rate 107 H 102 H 101 H Respiratory Rate 16 15 16 Blood Pressure 160/85 H 131/88 H 137/81 H Blood Pressure Mean 110 102 99 Pulse Ox 98 99 98 Oxygen Delivery Method Room Air Room Air Room Air 12/08/21 01:41 Temperature Temperature Source Pulse Rate Respiratory Rate Blood Pressure Blood Pressure Mean Pulse Ox 100 Oxygen Delivery Method Room Air Weight Weight: 112.7 kg Body Mass Index (BMI) 46.9 Physical Exam Narrative Physical exam: General: Well-nourished, well-developed. Head: Normocephalic, atraumatic, no tenderness Eyes: Vision is grossly intact. EOMI ENT, no trauma, moist mucous membranes, no rhinorrhea Neck: Nontender, full range of motion, no spinal tenderness, deformities, step- off CVS: Regular rate and rhythm. S1-S2 present. No murmur, gallop or rub. Respiratory : clear to auscultation bilaterally, chest wall nontender, no wheezing Abdomen: Soft, nontender, nondistended, normal bowel sounds, no masses : Deferred Back: Nontender, no CVA tenderness, no midline spinal tenderness, deformities, step-offs Extremities: Nontender full range of motion, no trauma Skin: Normal color, no trauma, abrasions Neuro: Alert, oriented, cranial nerves II through XII grossly intact. Deep tendon reflexes not hyperreflexia with biceps reflex and knee reflexes. No dysmetria with [id number] test or [id number] test. Decreased sensation of left face compared to right and left; left arm compared to right and left leg compared to right. Psychiatry: Normal mood. Normal affect. Not depressed. Not anxious. Results Lab / Micro Data Result Diagrams: 12/08/21 02:10 12/08/21 02:10 Labs: Laboratory Results - last 24 hr 12/08/21 01:28: POC Glucose 194 H 12/08/21 02:10: WBC 5.7, RBC 4.05 L, Hgb 11.7 L, Hct 34.2 L, MCV 84.4, MCH 28.9, MCHC 34.2, RDW Std Deviation 36.9, RDW Coeff of Millie 12.1, Plt Count 256, MPV 8.6, Immature Gran % (Auto) 0.200, Neut % (Auto) 45.4 L, Lymph % (Auto) 45.8 H, [place] % (Auto) 5.9, Eos % (Auto) 2.4, Baso % (Auto) 0.3, Absolute Neuts (auto) 2.6, Absolute Lymphs (auto) 2.62, Nucleated RBC % [address] 12/08/21 01:26 IMPRESSION: undefined ADDENDUM: 12/08/21 0156 IMPRESSION: undefined Assessment & Plan Assessment/Plan (1) Stroke-like symptoms: PLAN: Strokelike symptoms Differential diagnoses include TIA; evolving stroke; complex migraine or other. Serial NINDS NIH Scale ordered Head CT was visualized and independently interpreted and I agree with radiologist interpretation. Lipid profile and A1c ordered. Physical therapy, and occupational therapy and to work with patient. N.p.o. until bedside swallow eval. Per neurology recommendation we will restart the patient's Pradaxa. Permissive hypertension. Control blood pressure with labetalol for systolic blood pressure of more than 220 or diastolic blood pressure of more than 120. MRI/MRA of head; brain; and neck. Echocardiogram ordered. Headaches Reglan IV and Benadryl IV ordered at emergency department. Monitor. As needed Tylenol ordered. Elevated blood pressure the diagnosis of hypertension Trend blood pressures. Permissive hypertension as above. Chronic anemia CBC showed hemoglobin of 11.7, stable. DVT prophylaxis: Not indicated as patient will be started on her Pradaxa. Charges/Coding Visit Charges OBSV E&M: 99701 Initial observation care L3
[2021-12-08 02:46] LABS: Anion Gap 9 (5-15); BUN 19 mg/dL (7-18); BUN/Creat Ratio 27.1 RATIO (10-20); Calcium,Total 8.8 mg/dL (8.5-10.1); Chloride 106 mmol/L (98-107); EST Glomerular Filtration Rate 105 mL/min (>60); Est Glom Filt Rate - Afr Amer 127 mL/min (>60); Estimated Creatinine Clearance 89.48 ml/min; Glucose 223 mg/dL (74-106); Potassium 4.1 mmol/L (3.5-5.1); Sodium Level 138 mmol/L (136-145); Troponin-I HS < 3 pg/mL (3.0-54.0)
--- NOTE | 2021-12-08 02:55 | RAD_ITS ---
INDICATION: Neuro deficit, acute, stroke suspected EXAMINATION: Frontal view of the chest COMPARISON: None. FINDINGS: Frontal view of the chest was obtained. The cardiac silhouette is not enlarged. No confluent airspace disease. No pneumothorax. RAD/Chest 1 View IMPRESSION: No acute pulmonary disease. Electronically Signed: Bj Saravia MD at 3:31 EDT ,
[2021-12-08] MEDS: Metoclopramide 10 MG/2 ML Vial IV (03:00)
[2021-12-08] MEDS: DiphenhydrAMINE 50 MG/ML Syringe 25 MG IV (03:00)
--- NOTE | 2021-12-08 03:19 | ED.RN ---
lab at the bedside trying to draw blood,unable.will send someone els.
--- NOTE | 2021-12-08 04:15 | PCM.PN.BLA ---
Progress Note Patient received benadryl at the ED because she was reglan. Immediately patient came to the hein she requested another benadryl for headache. Compazine ordered. However, patient stated that it will make her headache worse. Patient refuse telemetry while at the PCU for stroke-like symptoms. Toradol and maxalt for headache was offered to patient. Patient refused and stated that she will leave AMA. Nurse to give AMA paper work for patient.
--- NOTE | 2021-12-08 04:20 | NURSING ---
Pt came out of the bathroom upset and crying, requesting to have more Benadryl. Pt received Reglan and Benadryl prior to coming onto the floor. Pt refuses any care from the staffs. Notified and talked to the physician and refused to give anymore Benadryl. Offered Compazine, Toradol and Maxalt, pt signed out AMA. This RN spent time educating the pt w/ the risk of leaving, encourage pt to stay and get stroke work up done; pt insisted on leaving AMA. was notified of pt leaving.
[2021-12-08 04:47] LABS: Cholesterol 239 mg/dL (200); High Density Lipoprotein 37 mg/dL; Triglycerides 1132 mg/dL
[2021-12-08 08:11] LABS: Hemoglobin A1c 7.4 % (3.8-5.6)
== END 2021-12-08 04:20 | disposition left against medical advice (07) ==
LOC: ED 02:16 → PCU 02:32
PROVIDERS: Admitting Provider Hospitalist; Emergency Provider Emergency Medicine; PCP Family Medicine; Visit Provider Hospitalist
DX: R20.2 Paresthesia of skin (principal); E66.01 Morbid (severe) obesity due to excess calories; Z68.42 Body mass index [BMI] 45.0-49.9, adult; D68.51 Activated protein C resistance; F32.9 Major depressive disorder, single episode, unspecified; F43.10 Post-traumatic stress disorder, unspecified; F41.9 Anxiety disorder, unspecified; R51.9 Headache, unspecified; R29.810 Facial weakness; Z86.73 Personal history of transient ischemic attack (TIA), and cerebral infarction without residual deficits; Z86.711 Personal history of pulmonary embolism; Z86.718 Personal history of other venous thrombosis and embolism; Z79.899 Other long term (current) drug therapy; R29.704 NIHSS score 4; R03.0 Elevated blood-pressure reading, without diagnosis of hypertension; D64.9 Anemia, unspecified
CPT/HCPCS: 70450; 71045; 80048; 80061; 82962; 83036; 84484; 85025; 93005; 96374; 96375; 99218; 99285; A4216; G0378

== ENCOUNTER 2022-01-01 13:04 | Emergency (ER) | payer MEDICAID, SELFPAY ==
[2022-01-01 13:05] VITALS: BP 135/95; PULSE 141; RESP 16; TEMP 36.1; O2SAT 99; BMI 42.5
--- NOTE | 2022-01-01 13:40 | EDS_ITS ---
HPI History of Present Illness Chief Complaint: Headache Informant: patient Onset/Context/Timing Onset: Days Context: Gradual Timing: Continuous Current Severity: Moderate Maximum Severity: Moderate Associated Symptoms/Injury Associated Symptoms: Positive for Nausea, Vomiting and Photophobia; Negative for Fever, Numbness, Tingling, Blurred Vision or Visual Loss Injury - FALL: Negative for Direct Trauma, Fall or Assault Narrative Narrative: 31-year-old female history of factor V Leiden on Pradaxa for anticoagulation. History of prior DVT and PEs. History of migraine headaches. States this is typical more of a migraine headaches. It started about 4 days ago. Gradual onset. Right side of her head. Associated nausea and vomiting. No fever. No trauma. No neck pain. Typically when he gets this bad she can trauma at home she is to come in and get a set up protocol by her neurologist. Prior similar symptoms: Yes Recent Illness/Hospitalization: No PFSH PFSH Medical History Anxiety Depression DVT (deep venous thrombosis) Factor V Leiden Kidney stones Ovarian cyst PCOS (polycystic ovarian syndrome) PTSD (post-traumatic stress disorder) Pulmonary embolism TIA (transient ischemic attack) Home Medications topiramate 200 mg tablet 200 mg PO BID 09/10/18 [History Last Taken 11/22/19 22:00] fluoxetine 20 mg capsule 40 mg PO DAILY 12/24/19 [History Last Taken Unknown] rizatriptan 10 mg tablet (Maxalt) 10 mg PO ONCE PRN Migraine Headache 02/03/21 [History Last Taken Unknown] buspirone 15 mg tablet 15 mg PO TID 06/06/21 [History Last Taken Unknown] naproxen 500 mg tablet (Naprosyn) 500 mg PO BID PRN pain #20 tabs 06/06/21 [Rx Last Taken Unknown] prazosin 5 mg capsule 5 mg PO DAILY 06/06/21 [History Last Taken Unknown] promethazine 25 mg tablet 25 mg PO Q6H PRN PRN nausea 06/06/21 [History Last Ta rayne Unknown] cyclobenzaprine 10 mg tablet 10 mg PO Q8H PRN PRN Muscle Spasm 10/10/21 [History Last Taken Unknown] magnesium 500 mg tablet 500 mg PO BID 10/10/21 [History Last Taken Unknown] vitamin B complex 2 cap PO DAILY 10/10/21 [History Last Taken Unknown] Allergy/AdvReac Type Severity Reaction Status Date / Time furosemide [From Lasix] Allergy Hives Verified 01/01/22 13:05 Iodinated Contrast Media Allergy Hives Verified 01/01/22 13:05 ondansetron [From Zofran] Allergy Hives Verified 01/01/22 13:05 propranolol Allergy Angioedema Verified 01/01/22 13:05 prochlorperazine AdvReac AGITATION Verified 01/01/22 13:05 [From Compazine] AND ANXIOUS Family History Other CVA (cerebral vascular accident) Heart disease Hypertension Thyroid disorder Surgical History H/O oophorectomy H/O tubal ligation History of cholecystectomy Hx of cholecystectomy Social History Smoking Status: Never smoker substance use type: does not use ROS ROS ED ROS Narrative Headache with nausea and vomiting. Review of Systems ROS Unobtainable: Denies due to encephalopathy Constitutional Constitutional ED: Denies chills or fever(s) Eyes Eyes: Denies blurry vision ENT ENT ED: Denies ear pain Cardiovascular Cardiovascular: Denies chest pain Respiratory/Chest Respiratory/Chest: Denies cough Gastrointestinal Gastrointestinal: Reports nausea and vomiting; Denies abdominal pain, constipation, diarrhea or melena Genitourinary Genitourinary ED: Denies dysuria Musculoskeletal Musculoskeletal: Denies arthralgias Integumentary Denies abscess Neurologic Neurologic: Reports headache(s) Psychiatric Psychiatric: Denies anxiety Endocrine Endocrinology: Denies polydipsia Hematologic/Lymphatic Hematologic/Lymphatic: Denies easy bleeding Allergic/Immunologic Allergic/Immunologic ED: Denies mouth swelling EXAM Physical Exam Narrative Exam Narrative: 22-year-old female no acute distress. Vital signs stable afebrile. She is sitting in darkened room due to photophobia. H EENT exam unremarkable atraumatic. Pupils round reactive light. Neck nontender no lymphadenopathy. Lungs clear to auscultation bilaterally. Heart tachycardic no murmur. Rate about 120. Abdomen soft nontender. Moving all 4 extremities. 5 out of 5 ice rink attendant strength bilaterally. Dorsi plantarflexion intact. Neurologically she is awake alert with no focal motor deficits. NIH is 0. Const Vital Signs: 01/01/22 13:05 01/01/22 16:37 Temperature 97.0 F L Temperature Source Temporal Pulse Rate 141 H Respiratory Rate 16 Blood Pressure 135/95 H 130/94 H Blood Pressure Mean 108 Pulse Ox 99 Oxygen Delivery Method Room Air Positive well nourished, well developed and obese; Negative for cachectic, contractures or unkempt General Appearance ED: well developed; Negative for unkempt, cachectic or contractures Nutritional Appearance: obese; Negative for cachectic HEENT Reports normocephalic atraumatic; Negative for trauma, tenderness or temporal artery tenderness Eyes PERRL and EOMs intact bilaterally General Eye ED: Negative for pale conjunctiva or scleral icterus Neck no lymphadenopathy, supple and no meningeal signs General: Negative for tenderness Resp normal respiratory effort and clear to auscultation bilaterally Effort and Inspection: Negative for retractions Auscultation: Negative for rales or rhonchi Cardio regular rhythm, S1 normal heart sound, S2 normal heart sound and no murmurs; Negative for regular rate Rate: tachycardic GI non-tender and non-distended Auscultation: normoactive bowel sounds Palpation: soft; Negative for firm Back/Spine no CVA tenderness General Back: Negative for CVA tenderness Cervical Spine: Negative for cervical spine tenderness Thoracic Spine / Upper Back: Negative for thoracic spinal tenderness Extremity normal to inspection and full ROM General Extremety ED: Negative for edema or tenderness General Extremity: Negative for edema Neuro oriented x3, CN's II-XII intact bilaterally and no sensory deficits noted Sensorium / Orientation: awake, alert, oriented to person, oriented to place and oriented to time; Negative for orientation impaired, lethargic or stuporous Coordination / Balance: [id number] test normal and [id number] test normal Speech: speech normal Motor Exam: strength 5/5 throughout Psych mental status grossly normal Appearance: Negative for unkempt Attitude: No agitated Mood & Affect: anxious; Negative for depressed Skin Lesions: no lesions Rashes: no rashes Trauma: Negative for abrasion MDM MDM MDM Narrative Medical decision making narrative: 31-year-old female history of migraine headaches. History and exam is consisten t with one of her migraine headaches. Her neurologic exam is normal. She will be treated with IV fluids, Benadryl, Reglan and Decadron and reassess. Repeat exam patient is doing well at 4:40 PM. Headache is starting to improve. Neurologic exam remains normal. No focal motor deficits. She is awake and alert. She requested more IV Benadryl and Reglan for nausea and she will be discharged home. Discharge Plan Triage Chief Complaint: Headache ED Provider: Elian Arteaga Dx/Rx/DC Orders Clinical Impression: Migraine, Hx of factor V Leiden mutation Instructions: ED, Migraine (Classical) Prescriptions: No Action topiramate 200 MG tablet 200 mg PO BID fluoxetine 20 MG capsule 40 mg PO DAILY rizatriptan [Maxalt] 10 mg tablet 10 mg PO ONCE PRN (Reason: Migraine Headache) Rx Instructions: may repeat once after at least 2 hours, for migrains prazosin 5 mg capsule 5 mg PO DAILY Label Comments: Take 1 capsule by mouth daily at bedtime. promethazine 25 mg tablet 25 mg PO Q6H PRN PRN (Reason: nausea) buspirone 15 mg tablet 15 mg PO TID naproxen [Naprosyn] 500 mg tablet 500 mg PO BID PRN (Reason: pain) Qty: 20 0RF cyclobenzaprine 10 mg tablet 10 mg PO Q8H PRN PRN (Reason: Muscle Spasm) magnesium 500 mg Tablet 500 mg PO BID vitamin B complex [B Complex] Capsule 2 cap PO DAILY Primary Care Provider: Ki Weldon Referrals: Ki Weldon MD [Primary Care Provider] - 1-2 Days if not improving Activity Restrictions/Additional Instructions: Plenty of fluids and rest. Follow-up with your neurologist if not improving. Or return if feeling worse. Disposition Disposition: Home, Self Care
--- NOTE | 2022-01-01 14:27 | CM.ED ---
SW Note SW spoke to MD and advised patient had a care plan. KIM updated RN that patient had a care plan. Evon VANESSA
[2022-01-01] MEDS: 0.9% Normal Saline 1,000 ML 1000 ML IV (14:48)
[2022-01-01] MEDS: Metoclopramide 10 MG/2 ML Vial 5 MG IV ×2 (14:49→16:46)
[2022-01-01] MEDS: dexAMETHasone 10 MG/ML Vial IV (14:49)
[2022-01-01] MEDS: DiphenhydrAMINE 50 MG/ML Syringe IV (14:49)
[2022-01-01] MEDS: Ketamine HCl 500 MG/5 ML Vial 30 MG IV (15:37)
[2022-01-01 16:37] VITALS: BP 130/94
[2022-01-01] MEDS: DiphenhydrAMINE 50 MG/ML Syringe 25 MG IV (16:45)
[2022-01-01 16:47] VITALS: BP 134/72
== END 2022-01-01 16:59 | disposition home or self-care (01) ==
PROVIDERS: Emergency Provider Emergency Medicine; PCP Family Medicine; Visit Provider Emergency Medicine
DX: G43.909 Migraine, unspecified, not intractable, without status migrainosus (principal); Z68.41 Body mass index [BMI] 40.0-44.9, adult; D68.51 Activated protein C resistance; E66.9 Obesity, unspecified; F32.A Depression, unspecified; F41.9 Anxiety disorder, unspecified; Z79.01 Long term (current) use of anticoagulants; Z79.899 Other long term (current) drug therapy; Z86.711 Personal history of pulmonary embolism; Z86.718 Personal history of other venous thrombosis and embolism; Z86.73 Personal history of transient ischemic attack (TIA), and cerebral infarction without residual deficits
CPT/HCPCS: 96361; 96374; 96375; 96376; 99283; J7030; A4216

== ENCOUNTER 2022-01-05 23:50 | Emergency (ER) | payer MEDICAID, SELFPAY ==
[2022-01-05 23:52] VITALS: BP 134/100; PULSE 88; RESP 14; TEMP 36.8; O2SAT 98; BMI 48.3
--- NOTE | 2022-01-06 00:12 | EDS_ITS ---
HPI History of Present Illness Chief Complaint: Lower Extremity Injury Narrative Narrative: This is a 31-year-old female with history of factor V Leiden, DVTs, PEs presenting with left leg erythema and swelling. She states this is been ongoing for about 3 days. She states her left leg feels warm to the touch and that she has a history of cellulitis in the past. She denies systemic symptoms such as fevers or chills. She denies any trauma to the area. No numbness or tingling. Denies chest pain, palpitations, shortness of breath. [facility] Medical History Anxiety Depression Diabetes DVT (deep venous thrombosis) Factor V Leiden Kidney stones Ovarian cyst PCOS (polycystic ovarian syndrome) PTSD (post-traumatic stress disorder) Pulmonary embolism TIA (transient ischemic attack) Home Medications topiramate 200 mg tablet 200 mg PO BID 09/10/18 [History Last Taken 11/22/19 22:00] fluoxetine 20 mg capsule 40 mg PO DAILY 12/24/19 [History Last Taken Unknown] rizatriptan 10 mg tablet (Maxalt) 10 mg PO ONCE PRN Migraine Headache 02/03/21 [History Last Taken Unknown] buspirone 15 mg tablet 15 mg PO TID 06/06/21 [History Last Taken Unknown] naproxen 500 mg tablet (Naprosyn) 500 mg PO BID PRN pain #20 tabs 06/06/21 [Rx Last Taken Unknown] prazosin 5 mg capsule 5 mg PO DAILY 06/06/21 [History Last Taken Unknown] promethazine 25 mg tablet 25 mg PO Q6H PRN PRN nausea 06/06/21 [History Last Taken Unknown] cyclobenzaprine 10 mg tablet 10 mg PO Q8H PRN PRN Muscle Spasm 10/10/21 [History Last Taken Unknown] magnesium 500 mg tablet 500 mg PO BID 10/10/21 [History Last Taken Unknown] vitamin B complex 2 cap PO DAILY 10/10/21 [History Last Taken Unknown] cephalexin 500 mg capsule 500 mg PO Q6 #40 caps 01/06/22 [Rx Last Taken Unknown] hydrocodone-acetaminophen 5-325mg 5mg-325mg 1 tab PO Q6H PRN pain 3 days #10 tabs 01/06/22 [Rx Last Taken Unknown] Allergy/AdvReac Type Severity Reaction Status Date / Time furosemide [From Lasix] Allergy Hives Verified 01/05/22 23:52 Iodinated Contrast Media Allergy Hives Verified 01/05/22 23:52 ondansetron [From Zofran] Allergy Hives Verified 01/05/22 23:52 propranolol Allergy Angioedema Verified 01/05/22 23:52 prochlorperazine AdvReac AGITATION Verified 01/05/22 23:52 [From Compazine] AND ANXIOUS Family History Other CVA (cerebral vascular accident) Heart disease Hypertension Thyroid disorder Surgical History H/O oophorectomy H/O tubal ligation History of cholecystectomy Hx of cholecystectomy Social History Smoking Status: Never smoker substance use type: does not use ROS ROS ED Constitutional Constitutional ED: Denies chills or fever(s) Eyes Eyes: Denies change in vision or diplopia ENT ENT ED: Denies rhinorrhea or sore throat Cardiovascular Cardiovascular: Denies chest pain or palpitations Respiratory/Chest Respiratory/Chest: Denies cough Gastrointestinal Gastrointestinal: Denies abdominal pain or constipation Genitourinary Genitourinary ED: Denies dysuria or hematuria Musculoskeletal Musculoskeletal: Denies arthralgias or back pain Integumentary Reports other Details: Left leg erythema and swelling, burning ; Denies abscess Neurologic Neurologic: Denies headache(s) or paresthesias EXAM Physical Exam Const Vital Signs: 01/05/22 23:52 Temperature 98.2 F Temperature Source Temporal Pulse Rate 88 Respiratory Rate 14 Blood Pressure 134/100 H Blood Pressure Mean 111 Pulse Ox 98 Oxygen Delivery Method Room Air Positive well nourished General Appearance ED: NAD HEENT Reports moist mucous membranes Eyes PERRL Resp normal respiratory effort Cardio regular rate and regular rhythm Extremity Extremity Narrative: Tenderness to palpation over the left calf. There is slight swelling and erythema overlying the calf, tibia, dorsum of the left foot. Mildly increased warmth. Pedal pulses 2+. Sensation intact. Compartments are soft. No cords palpated. Neuro oriented x3 and CN's II-XII intact bilaterally Psych mental status grossly normal Skin Skin Narrative: As documented above MDM MDM MDM Narrative Medical decision making narrative: Patient presenting with redness, pain, swelling to the left lower extremity over the calf, tibia, dorsum of left foot. She denies any injury. She states she has a history of cellulitis and is concerned for this however she also states she has a history of DVTs and is not currently anticoagulated. Due to the time of the evening I do not have an ultrasound available so we did discuss weight- based Lovenox for overnight and outpatient ultrasound for tomorrow of the left lower extremity. She also wishes to be covered for infection and she will be started on Keflex in the ER. She was [place] for pain. Patient to return tomorrow morning for duplex ultrasound of lower extremity. Impression: 1. Left leg pain 2. Left leg cellulitis 3. History of DVT Lab Data Attestation: I reviewed the patient's lab results. Discharge Plan Triage Chief Complaint: Lower Extremity Injury ED Provider: Freddy Babb Dx/Rx/DC Orders Instructions: ED Cellulitis, ED Peripheral Edema, Unilateral Prescriptions: New hydrocodone-acetaminophen 5-325 mg tablet 1 tab PO Q6H PRN (Reason: pain) 3 Days Qty: 10 0RF cephalexin 500 mg capsule 500 mg PO Q6 Qty: 40 0RF No Action topiramate 200 MG tablet 200 mg PO BID fluoxetine 20 MG capsule 40 mg PO DAILY rizatriptan [Maxalt] 10 mg tablet 10 mg PO ONCE PRN (Reason: Migraine Headache) Rx Instructions: may repeat once after at least 2 hours, for migrains prazosin 5 mg capsule 5 mg PO DAILY Label Comments: Take 1 capsule by mouth daily at bedtime. promethazine 25 mg tablet 25 mg PO Q6H PRN PRN (Reason: nausea) buspirone 15 mg tablet 15 mg PO TID naproxen [Naprosyn] 500 mg tablet 500 mg PO BID PRN (Reason: pain) Qty: 20 0RF cyclobenzaprine 10 mg tablet 10 mg PO Q8H PRN PRN (Reason: Muscle Spasm) magnesium 500 mg Tablet 500 mg PO BID vitamin B complex [B Complex] Capsule 2 cap PO DAILY Other Ambulatory Orders: Venous Duplex US, Unilateral (Routine) Facility: [facility] - Location: [facility] Ordered By: Dr. Freddy Babb Primary Care Provider: Ki Weldon Referrals: Ki Weldon MD [Primary Care Provider] - Disposition Disposition: Home, Self Care
[2022-01-06] MEDS: Cephalexin 250 MG Capsule 500 MG PO (00:21)
[2022-01-06] MEDS: HYDROcodone Bitartrate/Apap 5/325 Tablet PO (00:21)
[2022-01-06] MEDS: Enoxaparin 120 MG/0.8 ML Syringe SC (00:22)
== END 2022-01-06 00:57 | disposition home or self-care (01) ==
PROVIDERS: Emergency Provider Student in an Organized Health Care Education/Training Program; PCP Family Medicine; Visit Provider Student in an Organized Health Care Education/Training Program
DX: M79.605 Pain in left leg (principal); L03.116 Cellulitis of left lower limb; Z86.718 Personal history of other venous thrombosis and embolism; Z86.73 Personal history of transient ischemic attack (TIA), and cerebral infarction without residual deficits; Z86.711 Personal history of pulmonary embolism
CPT/HCPCS: 96372; 99283

== ENCOUNTER 2022-01-17 10:44 | Emergency (ER) | payer MEDICAID, SELFPAY ==
[2022-01-17 10:45] VITALS: BP 132/90; PULSE 116; RESP 18; TEMP 36; O2SAT 97; BMI 42.5
--- NOTE | 2022-01-17 11:18 | EDS_ITS ---
HPI History of Present Illness Chief Complaint: Headache Narrative Narrative: Patient has a history of headaches. She is presenting with chronic gradual in onset headache that started 4 days ago, her regular migraine medications are not working outpatient. She has a history of this, last time she had a headache this bad had to come to the emergency department was a month ago. Her neurologist has an ED protocol for her. No fevers or chills. No vision changes although she has some photophobia. She has no weakness or paresthesias PFSH PFS Medical History Anxiety Depression Diabetes DVT (deep venous thrombosis) Factor V Leiden Kidney stones Ovarian cyst PCOS (polycystic ovarian syndrome) PTSD (post-traumatic stress disorder) Pulmonary embolism TIA (transient ischemic attack) Home Medications topiramate 200 mg tablet 200 mg PO BID 09/10/18 [History Last Taken 11/22/19 22:00] fluoxetine 20 mg capsule 40 mg PO DAILY 12/24/19 [History Last Taken Unknown] rizatriptan 10 mg tablet (Maxalt) 10 mg PO ONCE PRN Migraine Headache 02/03/21 [History Last Taken Unknown] buspirone 15 mg tablet 15 mg PO TID 06/06/21 [History Last Taken Unknown] naproxen 500 mg tablet (Naprosyn) 500 mg PO BID PRN pain #20 tabs 06/06/21 [Rx Last Taken Unknown] prazosin 5 mg capsule 5 mg PO DAILY 06/06/21 [History Last Taken Unknown] promethazine 25 mg tablet 25 mg PO Q6H PRN PRN nausea 06/06/21 [History Last Taken Unknown] cyclobenzaprine 10 mg tablet 10 mg PO Q8H PRN PRN Muscle Spasm 10/10/21 [History Last Taken Unknown] magnesium 500 mg tablet 500 mg PO BID 10/10/21 [History Last Taken Unknown] vitamin B complex 2 cap PO DAILY 10/10/21 [History Last Taken Unknown] cephalexin 500 mg capsule 500 mg PO Q6 #40 caps 01/06/22 [Rx Last Taken Unknown] hydrocodone-acetaminophen 5-325mg 5mg-325mg 1 tab PO Q6H PRN pain 3 days #10 tabs 01/06/22 [Rx Last Taken Unknown] Allergy/AdvReac Type Severity Reaction Status Date / Time furosemide [From Lasix] Allergy Hives Verified 01/17/22 10:46 Iodinated Contrast Media Allergy Hives Verified 01/17/22 10:46 ondansetron [From Zofran] Allergy Hives Verified 01/17/22 10:46 propranolol Allergy Angioedema Verified 01/17/22 10:46 prochlorperazine AdvReac AGITATION Verified 01/17/22 10:46 [From Compazine] AND ANXIOUS Family History Other CVA (cerebral vascular accident) Heart disease Hypertension Thyroid disorder Surgical History H/O oophorectomy H/O tubal ligation History of cholecystectomy Hx of cholecystectomy Social History Smoking Status: Never smoker substance use type: does not use ROS ROS ED ROS Narrative Past medical history: Reviewed, includes factor V Leiden, PE, TIAs, migraines. Medications: Reviewed Social history: Noncontributory Review of systems: All systems negative except as indicated General: No fever Eyes: No visual changes, some photophobia ENT: No upper airway congestion, normal voice Neck: No neck pain Cardiovascular: No chest pain Respiratory: No shortness of breath or cough Gastrointestinal: No abdominal pain, nausea vomiting or diarrhea Genitourinary: No dysuria Musculoskeletal: Denies myalgias no difficulty with ambulation Skin: No rash Neurological: No memory loss, confusion or any focal weakness. Headache as in HPI Psych: No recent behavioral changes Hematologic: No easy bleeding or easy bruising EXAM Physical Exam Narrative Exam Narrative: Physical exam General: Well nourished, Well developed, she appears slightly uncomfortable Head: Normocephalic, Atraumatic Eyes: Conjunctiva not pale ENT: Slightly dry mucous membranes Neck: Supple, Nontender, No lymphadenopathy Cardiovascular: Regular rhythm, slightly tachycardic Respiratory: No distress, CTA bilaterally Abdomen: Soft, Nontender, Nondistended Back: Nontender, Normal Inspection. Negative for: CVA tenderness Extremities: Nontender, No edema Skin: Normal color, No rash Neurological: Alert, Normal Strength, Normal Sensation Psychological: Normal affect Const Vital Signs: 01/17/22 10:45 01/17/22 13:02 Temperature 96.8 F L Temperature Source Temporal Pulse Rate 116 H 78 Respiratory Rate 18 16 Blood Pressure 132/90 H 139/93 H Blood Pressure Mean 104 108 Pulse Ox 97 97 Oxygen Delivery Method Room Air Room Air MDM MDM MDM Narrative Medical decision making narrative: Patient received quite a few doses of Benadryl antiemetics as well as IV fluids she received 2 different doses of ketamine as per protocol the Dr. Villa has ordered for her. It took a while but she is finally feeling somewhat improved. I will discharge her. I do not see a reason for imaging this is chronic recurrent headaches. She has received opiate analgesics for her intractable migraines in the past although I do not believe this would be [place] according to [employer]. She is neurologically intact and I will discharge her. Discharge Plan Triage Chief Complaint: Headache ED Provider: Catrachito Funes Dx/Rx/DC Orders Clinical Impression: Factor V Leiden, Migraines Instructions: ED Headache Unspecified Prescriptions: No Action topiramate 200 MG tablet 200 mg PO BID fluoxetine 20 MG capsule 40 mg PO DAILY rizatriptan [Maxalt] 10 mg tablet 10 mg PO ONCE PRN (Reason: Migraine Headache) Rx Instructions: may repeat once after at least 2 hours, for migrains prazosin 5 mg capsule 5 mg PO DAILY Label Comments: Take 1 capsule by mouth daily at bedtime. promethazine 25 mg tablet 25 mg PO Q6H PRN PRN (Reason: nausea) buspirone 15 mg tablet 15 mg PO TID naproxen [Naprosyn] 500 mg tablet 500 mg PO BID PRN (Reason: pain) Qty: 20 0RF cyclobenzaprine 10 mg tablet 10 mg PO Q8H PRN PRN (Reason: Muscle Spasm) magnesium 500 mg Tablet 500 mg PO BID vitamin B complex [B Complex] Capsule 2 cap PO DAILY hydrocodone-acetaminophen 5-325 mg tablet 1 tab PO Q6H PRN (Reason: pain) 3 Days Qty: 10 0RF cephalexin 500 mg capsule 500 mg PO Q6 Qty: 40 0RF Primary Care Provider: Ki Weldon Referrals: Ki Weldon MD [Primary Care Provider] - 3-5 Days Disposition Disposition: Home, Self Care
[2022-01-17] MEDS: 0.9% Normal Saline 1,000 ML 999 ML IV (11:28)
[2022-01-17] MEDS: DiphenhydrAMINE 50 MG/ML Syringe IV ×2 (11:29→14:36)
[2022-01-17] MEDS: proMETHazine 25 MG/ML Syringe 12.5 MG IM (11:29)
[2022-01-17] MEDS: dexAMETHasone 10 MG/ML Vial IV (11:29)
[2022-01-17] MEDS: Orphenadrine 60 MG/2 ML Ampul IV (12:57)
[2022-01-17] MEDS: Ketamine HCl 500 MG/5 ML Vial 30 MG IV ×2 (12:57→15:36)
[2022-01-17] MEDS: proMETHazine 25 MG/ML Syringe IM (12:58)
[2022-01-17 13:02] VITALS: BP 139/93; PULSE 78; RESP 16; O2SAT 97
[2022-01-17] MEDS: Metoclopramide 10 MG/2 ML Vial IV (14:36)
[2022-01-17 15:40] VITALS: BP 146/100; PULSE 82; RESP 14; O2SAT 95
== END 2022-01-17 16:11 | disposition home or self-care (01) ==
PROVIDERS: Emergency Provider Emergency Medicine; PCP Family Medicine; Visit Provider Emergency Medicine
DX: G43.909 Migraine, unspecified, not intractable, without status migrainosus (principal); Z86.718 Personal history of other venous thrombosis and embolism
CPT/HCPCS: 96361; 96372; 96374; 96375; 96376; 99283; J7030; J7040; A4216

== ENCOUNTER 2022-03-01 15:16 | Emergency (ER) | payer MEDICAID, SELFPAY ==
[2022-03-01 15:17] VITALS: BP 131/91; PULSE 98; RESP 18; TEMP 35.9; O2SAT 97; BMI 47.0
--- NOTE | 2022-03-01 16:35 | EDS_ITS ---
HPI History of Present Illness Chief Complaint: Headache Informant: patient Onset/Context/Timing Onset: Days Context: Gradual Timing: Continuous Quality -Headache: Positive for Similar Prior Headaches Current Severity: Moderate Maximum Severity: Moderate Associated Symptoms/Injury Associated Symptoms: Positive for Nausea, Vomiting and Photophobia; Negative for Fever, Sore Throat, Sinus Pressure, Numbness, Tingling, Preceding Aura, Visual Changes, Blurred Vision or Visual Loss Injury - FALL: Negative for Direct Trauma, Fall or Assault Narrative Narrative: 31-year-old female history of diabetes, DVT and PE and PTSD. History of migraine headaches. Currently on no anticoagulation. States his headache started on Saturday gradual in onset progressively getting worse left-sided. Associated nausea vomiting. No fever or chills. No trauma or injury. She is seen by neurologist who have her get a specific cocktail when she gets her headaches. Prior similar symptoms: Yes Recent Illness/Hospitalization: No PFSH PFSH Medical History Anxiety Depression Diabetes DVT (deep venous thrombosis) Factor V Leiden Kidney stones Ovarian cyst PCOS (polycystic ovarian syndrome) PTSD (post-traumatic stress disorder) Pulmonary embolism TIA (transient ischemic attack) Home Medications topiramate 200 mg tablet 200 mg PO BID 09/10/18 [History Last Taken 11/22/19 22:00] fluoxetine 20 mg capsule 40 mg PO DAILY 12/24/19 [History Last Taken Unknown] rizatriptan 10 mg tablet (Maxalt) 10 mg PO ONCE PRN Migraine Headache 02/03/21 [History Last Taken Unknown] buspirone 15 mg tablet 15 mg PO TID 06/06/21 [History Last Taken Unknown] naproxen 500 mg tablet (Naprosyn) 500 mg PO BID PRN pain #20 tabs 06/06/21 [Rx Last Taken Unknown] prazosin 5 mg capsule 5 mg PO DAILY 06/06/21 [History Last Taken Unknown] promethazine 25 mg tablet 25 mg PO Q6H PRN PRN nausea 06/06/21 [History Last Taken Unknown] magnesium 500 mg tablet 500 mg PO BID 10/10/21 [History Last Taken Unknown] vitamin B complex 2 cap PO DAILY 10/10/21 [History Last Taken Unknown] Allergy/AdvReac Type Severity Reaction Status Date / Time furosemide [From Lasix] Allergy Hives Verified 01/17/22 10:46 Iodinated Contrast Media Allergy Hives Verified 01/17/22 10:46 ondansetron [From Zofran] Allergy Hives Verified 01/17/22 10:46 propranolol Allergy Angioedema Verified 01/17/22 10:46 prochlorperazine AdvReac AGITATION Verified 01/17/22 10:46 [From Compazine] AND ANXIOUS Family History Other CVA (cerebral vascular accident) Heart disease Hypertension Thyroid disorder Surgical History H/O oophorectomy H/O tubal ligation History of cholecystectomy Hx of cholecystectomy Social History Smoking Status: Never smoker substance use type: does not use ROS ROS ED ROS Narrative Headache with nausea and vomiting. Review of Systems ROS Unobtainable: Denies due to encephalopathy Constitutional Constitutional ED: Denies chills or fever(s) Eyes Eyes: Denies blurry vision ENT ENT ED: Denies ear pain Cardiovascular Cardiovascular: Denies chest pain Respiratory/Chest Respiratory/Chest: Denies cough Gastrointestinal Gastrointestinal: Reports nausea and vomiting; Denies abdominal pain, constipation, diarrhea or melena Genitourinary Genitourinary ED: Denies dysuria Musculoskeletal Musculoskeletal: Denies arthralgias Integumentary Denies abscess Neurologic Neurologic: Reports headache(s) Psychiatric Psychiatric: Denies anxiety Endocrine Endocrinology: Denies polydipsia Hematologic/Lymphatic Hematologic/Lymphatic: Denies easy bleeding Allergic/Immunologic Allergic/Immunologic ED: Denies mouth swelling EXAM Physical Exam Narrative Exam Narrative: 22-year-old female no acute distress. Sitting in darkened room. Vital signs stable afebrile. H EENT exam unremarkable atraumatic. Neck nontender no meningismus. Lungs clear to auscultation. Heart regular rhythm no murmur. Rate about 95. Abdomen soft nontender normal bowel sounds no peritoneal signs. Moving all 4 extremities. 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 Dorsi plantarflexion intact. Neurologic exam normal. NIH is 0. Const Vital Signs: 03/01/22 15:17 03/01/22 15:17 03/01/22 19:00 Temperature 96.7 F L 96.7 F L Temperature Source Temporal Temporal Pulse Rate 98 98 Respiratory Rate 18 18 17 Blood Pressure 131/91 H 131/91 H Blood Pressure Mean 104 104 Pulse Ox 97 97 Oxygen Delivery Method Room Air Room Air Room Air Positive well nourished, well developed and obese; Negative for cachectic, contractures or unkempt General Appearance ED: well developed and NAD; Negative for unkempt, cachectic, contractures, cyanotic or diaphoretic Nutritional Appearance: obese; Negative for cachectic HEENT Reports normocephalic and moist mucous membranes atraumatic; Negative for trauma, tenderness, temporal artery tenderness or vesicular rash Face and Sinus: Negative for sinus tenderness Eyes PERRL and EOMs intact bilaterally General Eye ED: Negative for pale conjunctiva or scleral icterus Neck no lymphadenopathy, supple, no meningeal signs and no JVD General: Negative for tenderness Resp normal respiratory effort and clear to auscultation bilaterally Effort and Inspection: Negative for retractions Auscultation: Negative for rales, rhonchi or wheezes Cardio regular rate, regular rhythm, S1 normal heart sound, S2 normal heart sound and no murmurs Rate: Negative for bradycardia Rhythm: Negative for abnormal rhythm GI non-tender and non-distended Auscultation: normoactive bowel sounds Palpation: soft; Negative for firm or tender Back/Spine no CVA tenderness General Back: Negative for CVA tenderness Cervical Spine: Negative for cervical spine tenderness Thoracic Spine / Upper Back: Negative for thoracic spinal tenderness Lumbar Spine / Lower Back: Negative for lumbar spinal tenderness Extremity normal to inspection and full ROM General Extremety ED: Negative for edema or tenderness General Extremity: Negative for edema Neuro oriented x3 and CN's II-XII intact bilaterally Sensorium / Orientation: awake, alert, oriented to person, oriented to place and oriented to time; Negative for orientation impaired, lethargic or stuporous Coordination / Balance: [id number] test normal Speech: speech normal Motor Exam: strength 5/5 throughout Comatose: Negative for other Psych Appearance: Negative for unkempt Attitude: No agitated Mood & Affect: Negative for depressed or anxious Skin Lesions: no lesions Rashes: no rashes MDM MDM MDM Narrative Medical decision making narrative: 31-year-old female history of migraine headaches with a headache consistent with her migraines. She will be treated with IV fluids, Benadryl, IM Phenergan and IV Decadron. She also be given Toradol. She has had prior CAT scans and an MRI within the last 10 months. Patient also has a history of having a care plan. Repeat exam patient doing well at 6:35 PM. She is really had no change in her headache. The next protocol talks about giving her IM ketamine which I typically do not do for headaches. She can have that done through her neurologist if that is their choice. She will be discharged home. Prior to discharge she will be given another dose of IV Benadryl and IM Phenergan per her request. Discharge Plan Triage Chief Complaint: Headache ED Provider: Elian Arteaga Dx/Rx/DC Orders Clinical Impression: Headache, History of diabetes mellitus, History of deep venous thrombosis Instructions: ED Headache Unspecified Prescriptions: No Action topiramate 200 MG tablet 200 mg PO BID fluoxetine 20 MG capsule 40 mg PO DAILY rizatriptan [Maxalt] 10 mg tablet 10 mg PO ONCE PRN (Reason: Migraine Headache) Rx Instructions: may repeat once after at least 2 hours, for migrains prazosin 5 mg capsule 5 mg PO DAILY Label Comments: Take 1 capsule by mouth daily at bedtime. promethazine 25 mg tablet 25 mg PO Q6H PRN PRN (Reason: nausea) buspirone 15 mg tablet 15 mg PO TID naproxen [Naprosyn] 500 mg tablet 500 mg PO BID PRN (Reason: pain) Qty: 20 0RF magnesium 500 mg Tablet 500 mg PO BID vitamin B complex [B Complex] Capsule 2 cap PO DAILY Primary Care Provider: Ki Weldon Referrals: Ki Weldon MD [Primary Care Provider] - Bryan Villa MD [Non-Staff] - As soon as possible Activity Restrictions/Additional Instructions: Follow-up with your neurologist. Disposition Disposition: Home, Self Care
[2022-03-01] MEDS: 0.9% Normal Saline 1,000 ML 1000 ML IV (16:56)
[2022-03-01] MEDS: DiphenhydrAMINE 50 MG/ML Syringe IV (16:57)
--- NOTE | 2022-03-01 16:58 | CM.ED ---
Social Work Note Reason for Referral: Pt has ED Care Plan SW updated MD Arteaga that pt has ED Care Plan. Millie Wells MULTIMEDIA TECHNICIAN, CONCRETE BOOM OPERATOR
[2022-03-01] MEDS: dexAMETHasone 10 MG/ML Vial IV (16:59)
[2022-03-01] MEDS: Ketorolac 30 MG/ML Syringe IV (17:01)
[2022-03-01] MEDS: proMETHazine 25 MG/ML Syringe 12.5 MG IM ×2 (17:02→19:36)
[2022-03-01 19:00] VITALS: RESP 17
[2022-03-01] MEDS: DiphenhydrAMINE 50 MG/ML Syringe 25 MG IV (19:36)
[2022-03-01 19:42] VITALS: BP 142/71; PULSE 71; RESP 18; O2SAT 99
== END 2022-03-01 19:43 | disposition home or self-care (01) ==
PROVIDERS: Emergency Provider Emergency Medicine; PCP Family Medicine; Visit Provider Emergency Medicine
DX: R51.9 Headache, unspecified (principal); E11.9 Type 2 diabetes mellitus without complications; R11.2 Nausea with vomiting, unspecified; F41.9 Anxiety disorder, unspecified; F32.A Depression, unspecified; E66.9 Obesity, unspecified; Z86.718 Personal history of other venous thrombosis and embolism
CPT/HCPCS: 96361; 96372; 96374; 96375; 96376; 99283; J7030; A4216

== ENCOUNTER 2022-03-20 01:46 | Emergency (ER) | payer MEDICAID, SELFPAY ==
[2022-03-20 01:47] VITALS: BP 157/96; PULSE 101; RESP 16; TEMP 36.7; O2SAT 97; BMI 48.5
--- NOTE | 2022-03-20 02:35 | EDS_ITS ---
HPI History of Present Illness Chief Complaint: Chest Pain Informant: patient Onset/Context/Timing Onset: Today and Hours (4) Activity at onset: gradual Timing: Continuous Quality: Positive for Heaviness Location: Substernal Worsened By: - (Laying flat) Relieved By: Nothing Associated Symptoms: Positive for Dyspnea and Palpitations; Negative for Nausea, Vomiting, Diaphoresis, Cough, Fever, Lightheadedness or Acid Reflux Narrative Narrative: Patient presents with chest pain that has been getting progressively worse over the last 4 hours. Patient states it is gradually getting worse. Patient states it is constant. Patient states it feels like a heaviness on her chest. Patient states it is over the substernal area. Patient states it is worse whenever she lays flat. Patient does admit to some shortness of breath and palpitations. Bhavesh tang states her pain radiates into her back. Patient denies any nausea or vomiting. Patient has a history of factor V Leiden deficiency. Patient states she has been out of her anticoagulants for the past couple months. [facility] Medical History Anxiety Depression Diabetes DVT (deep venous thrombosis) Factor V Leiden Kidney stones Ovarian cyst PCOS (polycystic ovarian syndrome) PTSD (post-traumatic stress disorder) Pulmonary embolism TIA (transient ischemic attack) Home Medications topiramate 200 mg tablet 200 mg PO BID 09/10/18 [History Last Taken 11/22/19 22:00] fluoxetine 20 mg capsule 40 mg PO DAILY 12/24/19 [History Last Taken Unknown] rizatriptan 10 mg tablet (Maxalt) 10 mg PO ONCE PRN Migraine Headache 02/03/21 [History Last Taken Unknown] buspirone 15 mg tablet 15 mg PO TID 06/06/21 [History Last Taken Unknown] naproxen 500 mg tablet (Naprosyn) 500 mg PO BID PRN pain #20 tabs 06/06/21 [Rx Last Taken Unknown] prazosin 5 mg capsule 5 mg PO DAILY 06/06/21 [History Last Taken Unknown] promethazine 25 mg tablet 25 mg PO Q6H PRN PRN nausea 06/06/21 [History Last Taken Unknown] magnesium 500 mg tablet 500 mg PO BID 10/10/21 [History Last Taken Unknown] vitamin B complex 2 cap PO DAILY 10/10/21 [History Last Taken Unknown] sumatriptan succinate 25 mg tablet (Imitrex) 25 mg PO Q2H PRN migraine headache #10 tabs 03/01/22 [Rx Last Taken Unknown] dabigatran etexilate 150 mg capsule (Pradaxa) 150 mg PO BID #60 caps 03/20/22 [Rx Last Taken Unknown] enoxaparin 120 mg/0.8 mL subcutaneous syringe (Lovenox) 120 mg (0.8 mL) subcut Q12H #8 mL 03/20/22 [Rx Last Taken Unknown] Allergy/AdvReac Type Severity Reaction Status Date / Time furosemide [From Lasix] Allergy Hives Verified 03/20/22 01:47 Iodinated Contrast Media Allergy Hives Verified 03/20/22 01:47 ondansetron [From Zofran] Allergy Hives Verified 03/20/22 01:47 propranolol Allergy Angioedema Verified 03/20/22 01:47 prochlorperazine AdvReac AGITATION Verified 03/20/22 01:47 [From Compazine] AND ANXIOUS Family History Other CVA (cerebral vascular accident) Heart disease Hypertension Thyroid disorder Surgical History H/O oophorectomy H/O tubal ligation History of cholecystectomy Hx of cholecystectomy Social History Smoking Status: Never smoker substance use type: does not use ROS ROS ED Constitutional Constitutional ED: Denies chills or fever(s) Eyes Eyes: Denies blurry vision or change in vision ENT ENT ED: Denies rhinorrhea or sore throat Cardiovascular Cardiovascular: Reports chest pain and palpitations Respiratory/Chest Respiratory/Chest: Reports dyspnea; Denies cough Gastrointestinal Gastrointestinal: Denies abdominal pain, nausea or vomiting Genitourinary Genitourinary ED: Denies dysuria or hematuria Musculoskeletal Musculoskeletal: Reports back pain; Denies neck pain Integumentary Denies abscess or rash Neurologic Neurologic: Reports headache(s); Denies weakness Allergic/Immunologic Allergic/Immunologic ED: Denies mouth swelling or urticaria EXAM Physical Exam Const Vital Signs: 03/20/22 01:47 03/20/22 01:58 03/20/22 03:16 Temperature 98.1 F Temperature Source Temporal Pulse Rate 101 H Respiratory Rate 16 Respiratory Effort Normal Non-Labored Blood Pressure 157/96 H Blood Pressure Mean 116 Pulse Ox 97 Oxygen Delivery Method Room Air Room Air Positive well nourished, well developed and obese General Appearance ED: well developed and NAD Nutritional Appearance: obese HEENT normocephalic and atraumatic Eyes PERRL and EOMs intact bilaterally Neck supple and no JVD Chest Wall palpation of chest normal Resp normal respiratory effort and clear to auscultation bilaterally Effort and Inspection: Negative for respiratory distress Cardio regular rate, regular rhythm and no murmurs GI normal to inspection, nondistended, normoactive bowel sounds, soft to palpation, non-tender and non-distended Extremity normal to inspection General Extremety ED: Negative for edema or tenderness General Extremity: Negative for edema Neuro oriented x3, CN's II-XII intact bilaterally and no sensory deficits noted Sensorium / Orientation: awake and alert Motor Exam: strength 5/5 throughout Psych mental status grossly normal MDM MDM MDM Narrative Medical decision making narrative: IV line was unable to be established. EKG was obtained. On my interpretation, it showed a normal sinus rhythm with a rate of 99. MT interval, QRS interval, and QTc intervals were all normal. [place] was normal. There are no acute ST or T wave changes. CBC was able to be obtained and was within normal limits. PA and lateral chest x-ray was obtained. There are 2 views. On my interpretation there is right middle lobe atelectasis. There is no acute cardiopulmonary process. Radiologist also interpreted the x-ray and agrees. Since we are unable to establish an IV or obtain further labs, and the patient has been off of her Pradaxa, we will treat her for presumed pulmonary embolism. I discussed treatment options with the patient. Patient states she has had blood clots while she was on Eliquis and Xarelto in the past and does not want to take these. Patient was given a prescription for Lovenox. Patient was instructed to take this for 5 days and then resume her Pradaxa. Patient was also given a prescription for Pradaxa. Patient was also given an IM injection of morphine for her chest pain. Patient was instructed to follow-up with her primary care physician in 3 to 5 days. Patient understood and was agreeable with the plan. All questions were answered. Lab Data Attestation: I reviewed the patient's lab results. Labs: Laboratory Results - last 24 hr 03/20/22 03:05 WBC 4.6 RBC 4.81 Hgb 13.7 Hct 39.7 MCV 82.5 MCH 28.5 MCHC 34.5 RDW Std Deviation 36.1 RDW Coeff of Millie 12.0 Plt Count 200 MPV 8.9 Immature Gran % (Auto) 0.200 Neut % (Auto) 43.9 L Lymph % (Auto) 47.4 H [place] % (Auto) 5.5 Eos % (Auto) 2.6 Baso % (Auto) 0.4 Absolute Neuts (auto) 2.0 Absolute Lymphs (auto) 2.17 Nucleated RBC % 0 Radiography Chest X-Ray - ED: 2 View, Read by ED Physician, Read by Radiologist and - (Right middle lobe atelectasis) Diagnostic Testing: Clinical Impression(s) from Imaging Studies Chest X-Ray 03/20/22 04:10 IMPRESSION: Right middle lobe subsegmental atelectasis versus pneumonia. Electronically Signed: Mario Silva MD at 4:25 EDT Reading Location ID and State: [id number] / , Service support , EKG Initial EKG: Attestation: I personally reviewed and interpreted this EKG as follows: Interpretation: Sinus Rhythm (99) and No Acute Injury Pattern Prior EKG tracings: available for review Prior: Unchanged (12/08/2021) Discharge Plan Triage Chief Complaint: Chest Pain ED Provider: Justyn Pendleton Dx/Rx/DC Orders Clinical Impression: Chest pain, Factor V Leiden, Pulmonary emboli Instructions: ED Chest Pain, Uncertain Cause Prescriptions: New enoxaparin [Lovenox] 120 mg/0.8 mL syringe 120 mg subcut Q12H Qty: 8 0RF dabigatran etexilate [Pradaxa] 150 mg capsule 150 mg PO BID Qty: 60 0RF Rx Instructions: Start taking on 03/25/2022 after you have finished your Lovenox No Action topiramate 200 MG tablet 200 mg PO BID fluoxetine 20 MG capsule 40 mg PO DAILY rizatriptan [Maxalt] 10 mg tablet 10 mg PO ONCE PRN (Reason: Migraine Headache) Rx Instructions: may repeat once after at least 2 hours, for migrains prazosin 5 mg capsule 5 mg PO DAILY Label Comments: Take 1 capsule by mouth daily at bedtime. promethazine 25 mg tablet 25 mg PO Q6H PRN PRN (Reason: nausea) buspirone 15 mg tablet 15 mg PO TID naproxen [Naprosyn] 500 mg tablet 500 mg PO BID PRN (Reason: pain) Qty: 20 0RF magnesium 500 mg Tablet 500 mg PO BID vitamin B complex [B Complex] Capsule 2 cap PO DAILY sumatriptan succinate [Imitrex] 25 mg tablet 25 mg PO Q2H PRN (Reason: migraine headache) Qty: 10 0RF Rx Instructions: do not exceed 8 doses per 24 hrs Primary Care Provider: Ki Weldon Referrals: Ki Weldon MD [Primary Care Provider] - 3-5 Days Disposition Disposition: Home, Self Care
[2022-03-20 02:38] VITALS: BP 159/90; PULSE 98; RESP 18
--- NOTE | 2022-03-20 02:38 | EKG12_ITS ---
Test Reason : CP Blood Pressure : / mmHG Vent. Rate : 099 BPM Atrial Rate : 099 BPM P-R Int : 170 ms QRS Dur : 088 ms QT Int : 358 ms P-R-T Axes : 032 016 008 degrees QTc Int : 459 ms Normal sinus rhythm Cannot rule out Anterior infarct , age undetermined Abnormal ECG Confirmed by CLEO HOLLIS, ROSE ([id number]), science editor FAWN HAYWOOD ([id number]) on 03/21/2022 9:28:00 AM Referred By: Confirmed By:ROSE GALLO MD
[2022-03-20 03:13] LABS: Absolute Lymphocyte Count 2.17 X10^3/uL (0.83-4.51); Basophil# 0.02 X10^3/uL; Basophil% 0.4 % (0-1); Eosinophil# 0.12 X10^3/uL; Eosinophils% 2.6 % (0-5); Hematocrit 39.7 % (37-47); Hemoglobin 13.7 g/dL (12.0-15.0); Lymphocyte # 2.17 X10^3/ul (0.83-4.51); Lymphocyte % 47.4 % (19-41); Mean Corp Hgb Conc 34.5 g/dL (32-36); Mean Corpuscular Hgb 28.5 pg (27.0-32.0); Mean Corpuscular Volume 82.5 fL (81-99); Mean Platelet Vol. 8.9 fl (6.2-12.0); Monocyte# 0.25 X10^3/uL; Monocyte% 5.5 % (0-10); NRBC Flagged by Analyzer 0 % (0-5); Neutrophil # 2.01 X10^3/uL (2.7-7.7); Neutrophil % 43.9 % (47-70); Platelet Count 200 K/mm3 (150-450); RBC Distribution Width SD 36.1 fl (35.1-43.9); Red Blood Count 4.81 M/mm3 (4.2-5.4); White Blood Count 4.6 K/mm3 (4.4-11.0)
--- NOTE | 2022-03-20 04:10 | RAD_ITS ---
STUDY: X-RAY CHEST REASON FOR EXAM: Female, 32 years old. Chest pain TECHNIQUE: PA and lateral views of the chest. COMPARISON: March 30, 2021. FINDINGS: Right middle lobe density compatible with subsegmental atelectasis or pneumonia. No pneumothorax. Normal size heart. Normal mediastinum and teja. Normal visualized pulmonary arteries. Normal visualized aortic arch and descending thoracic aorta. Normal visualized thoracic spine. Normal visualized ribs, clavicles, and shoulders. Recorder. There is no demonstrated abnormality of the visualized soft tissue structures of the upper abdomen. RAD/Chest PA and Lateral IMPRESSION: Right middle lobe subsegmental atelectasis versus pneumonia. Electronically Signed: Mario Silva MD at 4:25 EDT Reading Location ID and State: [id number] / , Service support ,
--- NOTE | 2022-03-20 05:35 | ED.RN ---
0310 after multiple attempts by two rn's to start and iv,unscucceful. lab notified.
[2022-03-20 05:47] VITALS: RESP 16
[2022-03-20] MEDS: Enoxaparin 120 MG/0.8 ML Syringe SC (06:24)
== END 2022-03-20 06:46 | disposition home or self-care (01) ==
PROVIDERS: Emergency Provider Emergency Medicine; PCP Family Medicine; Visit Provider Emergency Medicine
DX: R07.9 Chest pain, unspecified (principal); I26.99 Other pulmonary embolism without acute cor pulmonale; D68.51 Activated protein C resistance; E11.9 Type 2 diabetes mellitus without complications; J98.11 Atelectasis
CPT/HCPCS: 71046; 85025; 93005; 96372; 99285; A4216; J3490

== ENCOUNTER 2022-03-22 09:14 | Emergency (ER) | payer MEDICAID, SELFPAY ==
[2022-03-22 09:18] VITALS: BP 146/101; PULSE 89; RESP 14; TEMP 36.8; O2SAT 98; BMI 47.3
--- NOTE | 2022-03-22 09:38 | EDS_ITS ---
HPI History of Present Illness Chief Complaint: Headache Informant: patient Onset/Context/Timing Onset: Weeks (1 week) Context: Gradual Timing: Continuous Quality -Headache: Positive for Similar Prior Headaches and Throbbing Current Severity: Moderate Maximum Severity: Moderate Associated Symptoms/Injury Associated Symptoms: Negative for Vomiting, Sore Throat, Numbness or Tingling Narrative Narrative: Patient presents secondary to migraine headache. She states she had a left- sided headache for about a week. This is typical of her migraines. No recent trauma or cold symptoms. She is on Topamax, Imitrex at home. She called her PCPs office this morning who is not able to get her in and sent her to the emergency room. She does follow with a neurologist, Dr. Villa. He has a migraine protocol for treatment for her. [facility] Medical History Anxiety Depression Diabetes DVT (deep venous thrombosis) Factor V Leiden Kidney stones Ovarian cyst PCOS (polycystic ovarian syndrome) PTSD (post-traumatic stress disorder) Pulmonary embolism TIA (transient ischemic attack) Home Medications topiramate 200 mg tablet 200 mg PO BID 09/10/18 [History Last Taken 11/22/19 22:00] fluoxetine 20 mg capsule 40 mg PO DAILY 12/24/19 [History Last Taken Unknown] rizatriptan 10 mg tablet (Maxalt) 10 mg PO ONCE PRN Migraine Headache 02/03/21 [History Last Taken Unknown] buspirone 15 mg tablet 15 mg PO TID 06/06/21 [History Last Taken Unknown] naproxen 500 mg tablet (Naprosyn) 500 mg PO BID PRN pain #20 tabs 06/06/21 [Rx Last Taken Unknown] prazosin 5 mg capsule 5 mg PO DAILY 06/06/21 [History Last Taken Unknown] promethazine 25 mg tablet 25 mg PO Q6H PRN PRN nausea 06/06/21 [History Last Taken Unknown] magnesium 500 mg tablet 500 mg PO BID 10/10/21 [History Last Taken Unknown] vitamin B complex 2 cap PO DAILY 10/10/21 [History Last Taken Unknown] sumatriptan succinate 25 mg tablet (Imitrex) 25 mg PO Q2H PRN migraine headache #10 tabs 03/01/22 [Rx Last Taken Unknown] dabigatran etexilate 150 mg capsule (Pradaxa) 150 mg PO BID #60 caps 03/20/22 [Rx Last Taken Unknown] enoxaparin 120 mg/0.8 mL subcutaneous syringe (Lovenox) 120 mg (0.8 mL) subcut Q12H #8 mL 03/20/22 [Rx Last Taken Unknown] Allergy/AdvReac Type Severity Reaction Status Date / Time furosemide [From Lasix] Allergy Hives Verified 03/22/22 09:17 Iodinated Contrast Media Allergy Hives Verified 03/22/22 09:17 ondansetron [From Zofran] Allergy Hives Verified 03/22/22 09:17 propranolol Allergy Angioedema Verified 03/22/22 09:17 prochlorperazine AdvReac AGITATION Verified 03/22/22 09:17 [From Compazine] AND ANXIOUS Family History Other CVA (cerebral vascular accident) Heart disease Hypertension Thyroid disorder Surgical History H/O oophorectomy H/O tubal ligation History of cholecystectomy Hx of cholecystectomy Social History Smoking Status: Never smoker substance use type: does not use ROS ROS ED Constitutional Constitutional ED: Denies chills or fever(s) Eyes Eyes: Denies change in vision or discharge from eye(s) ENT ENT ED: Denies discharge from eye(s), rhinorrhea or sore throat Cardiovascular Cardiovascular: Denies chest pain or palpitations Respiratory/Chest Respiratory/Chest: Denies cough or dyspnea Gastrointestinal Gastrointestinal: Denies abdominal pain, diarrhea, nausea or vomiting Genitourinary Genitourinary ED: Denies difficulty urinating or dysuria Musculoskeletal Musculoskeletal: Denies back pain or extremity pain Integumentary Denies Abrasions or rash Neurologic Neurologic: Reports headache(s); Denies weakness Psychiatric Psychiatric: Denies anxiety or depression Allergic/Immunologic Allergic/Immunologic ED: Denies lip swelling or urticaria EXAM Physical Exam Const Vital Signs: 03/22/22 09:18 03/22/22 12:11 03/22/22 12:11 Temperature 98.2 F Temperature Source Temporal Pulse Rate 89 105 H Respiratory Rate 14 14 Blood Pressure 146/101 H Blood Pressure Mean 116 Pulse Ox 98 96 96 Oxygen Delivery Method Room Air Room Air Room Air Positive well nourished and well developed General Appearance ED: well developed HEENT Reports normocephalic and head/scalp atraumatic Eyes PERRL and EOMs intact bilaterally Neck supple Chest Wall inspection of chest normal and palpation of chest normal Resp normal respiratory effort and clear to auscultation bilaterally Cardio regular rate and regular rhythm GI normal to inspection, nondistended, normoactive bowel sounds Palpation: soft Back/Spine no CVA tenderness Extremity normal to inspection Neuro oriented x3 and no sensory deficits noted Sensorium / Orientation: alert Motor Exam: strength 5/5 throughout Psych mental status grossly normal Skin no rashes or lesions noted MDM MDM MDM Narrative Medical decision making narrative: Patient initially given IV Benadryl, IM Phenergan, IV Decadron. This is per the migraine protocol that she presents. She is given liter IV fluids and Toradol along with this. Treatment and Re-Evaluation Narrative: Repeat evaluation she reported no improvement. Second line therapy included 60 mg of IV Norflex, 30 mg of IV ketamine, 12.5 mg of Phenergan along with high cecille w oxygen through nonrebreather mask. This was again ordered. Repeat evaluation she still states no improvement. She was given a small dose of Reglan and Benadryl. At this point patient states she does not want to be admitted to the hospital but she does not feel improved. She denies head injury. She is had multiple imaging studies and I do not feel these need to be repeated at this time. She is a normal neurologic exam. While looking for other treatment options that have been used on her in the past day reviewed her records in clinic sink. It appears that she has been to at least 11 different facilities of this year. Although she told me she had not been admitted needed for migraine in about 2 years it does appear the patient was admitted to [facility] in January for migraine, however got upset and left AMA when she was told she would not be getting IV Benadryl, only p.o. At that point I chose to call Dr. Villa, her neurologist. I spoke with the admin staff who state that the patient has been released from his practice. They advised that the patient tends to bring a treatment protocol and claims that Dr. Villa has written this when in fact he has not. They also state the patient has used other doctors [facility] numbers to get prescriptions illegally. At this point patient has a normal neurologic examination. I will discharge her at this time with referral to local neurology that she can follow-up with if she wishes. Discharge Plan Triage Chief Complaint: Headache ED Provider: Soraya Up Dx/Rx/DC Orders Clinical Impression: Migraine Instructions: ED, Migraine (Classical) Prescriptions: No Action topiramate 200 MG tablet 200 mg PO BID fluoxetine 20 MG capsule 40 mg PO DAILY rizatriptan [Maxalt] 10 mg tablet 10 mg PO ONCE PRN (Reason: Migraine Headache) Rx Instructions: may repeat once after at least 2 hours, for migrains prazosin 5 mg capsule 5 mg PO DAILY Label Comments: Take 1 capsule by mouth daily at bedtime. promethazine 25 mg tablet 25 mg PO Q6H PRN PRN (Reason: nausea) buspirone 15 mg tablet 15 mg PO TID naproxen [Naprosyn] 500 mg tablet 500 mg PO BID PRN (Reason: pain) Qty: 20 0RF magnesium 500 mg Tablet 500 mg PO BID vitamin B complex [B Complex] Capsule 2 cap PO DAILY sumatriptan succinate [Imitrex] 25 mg tablet 25 mg PO Q2H PRN (Reason: migraine headache) Qty: 10 0RF Rx Instructions: do not exceed 8 doses per 24 hrs enoxaparin [Lovenox] 120 mg/0.8 mL syringe 120 mg subcut Q12H Qty: 8 0RF dabigatran etexilate [Pradaxa] 150 mg capsule 150 mg PO BID Qty: 60 0RF Rx Instructions: Start taking on 03/25/2022 after you have finished your Lovenox Primary Care Provider: Ki Weldon Referrals: Ki Weldon MD [Primary Care Provider] - Chidi Mathias MD [Non-Staff -Ordering Privileges] - As Needed Disposition Disposition: Home, Self Care
[2022-03-22] MEDS: 0.9% Normal Saline 1,000 ML 999 ML IV (09:59)
[2022-03-22] MEDS: Ketorolac 30 MG/ML Syringe IV (09:59)
[2022-03-22] MEDS: proMETHazine 25 MG/ML Syringe 12.5 MG IM ×2 (10:00→12:04)
[2022-03-22] MEDS: DiphenhydrAMINE 50 MG/ML Syringe IV (10:00)
[2022-03-22] MEDS: dexAMETHasone 10 MG/ML Vial IV (10:00)
[2022-03-22] MEDS: Ketamine HCl 500 MG/5 ML Vial 30 MG IV (12:03)
[2022-03-22] MEDS: Orphenadrine 60 MG/2 ML Ampul IV (12:04)
[2022-03-22 12:11] VITALS: PULSE 105; RESP 14; O2SAT 96
[2022-03-22] MEDS: DiphenhydrAMINE 50 MG/ML Syringe 25 MG IV (13:42)
[2022-03-22] MEDS: Metoclopramide 10 MG/2 ML Vial 5 MG IV (13:43)
[2022-03-22 15:07] VITALS: BP 136/79; PULSE 112; RESP 13; O2SAT 97
[2022-03-22 15:08] VITALS: PULSE 92; RESP 16; RESP 20; O2SAT 97
== END 2022-03-22 15:10 | disposition home or self-care (01) ==
PROVIDERS: Emergency Provider Emergency Medicine; PCP Family Medicine; Visit Provider Emergency Medicine
DX: G43.909 Migraine, unspecified, not intractable, without status migrainosus (principal); E11.9 Type 2 diabetes mellitus without complications; F41.9 Anxiety disorder, unspecified; F32.A Depression, unspecified; Z79.899 Other long term (current) drug therapy
CPT/HCPCS: 96361; 96372; 96374; 96375; 96376; 99282; J7030; A4216

== ENCOUNTER 2022-04-09 08:19 | Emergency (ER) | payer MEDICAID, SELFPAY ==
[2022-04-09 08:20] VITALS: BP 122/73; PULSE 107; RESP 18; TEMP 36.7; O2SAT 95; BMI 42.5
--- NOTE | 2022-04-09 08:55 | EX.ED.DYSGE1 ---
HPI History of Present Illness Chief Complaint: Rash Informant: patient Narrative Narrative: Presents worsening rash under abdominal folds. Noticed a week ago today. Saw her PCP on telehealth the following day given nystatin powder. States is worsening increasing moisture. She states difficult keeping it dry due to drainage. She is using it 3 times a day. Denies fevers. Denies history of similar. States painful. Reports history of diabetes. Prior similar symptoms: No PFSH PFSH Medical History Anxiety Depression Diabetes DVT (deep venous thrombosis) Factor V Leiden Kidney stones Ovarian cyst PCOS (polycystic ovarian syndrome) PTSD (post-traumatic stress disorder) Pulmonary embolism TIA (transient ischemic attack) Home Medications topiramate 200 mg tablet 200 mg PO BID 09/10/18 [History Last Taken 11/22/19 22:00] fluoxetine 20 mg capsule 40 mg PO DAILY 12/24/19 [History Last Taken Unknown] rizatriptan 10 mg tablet (Maxalt) 10 mg PO ONCE PRN Migraine Headache 02/03/21 [History Last Taken Unknown] buspirone 15 mg tablet 15 mg PO TID 06/06/21 [History Last Taken Unknown] naproxen 500 mg tablet (Naprosyn) 500 mg PO BID PRN pain #20 tabs 06/06/21 [Rx Last Taken Unknown] prazosin 5 mg capsule 5 mg PO DAILY 06/06/21 [History Last Taken Unknown] promethazine 25 mg tablet 25 mg PO Q6H PRN PRN nausea 06/06/21 [History Last Taken Unknown] magnesium 500 mg tablet 500 mg PO BID 10/10/21 [History Last Taken Unknown] vitamin B complex 2 cap PO DAILY 10/10/21 [History Last Taken Unknown] sumatriptan succinate 25 mg tablet (Imitrex) 25 mg PO Q2H PRN migraine headache #10 tabs 03/01/22 [Rx Last Taken Unknown] dabigatran etexilate 150 mg capsule (Pradaxa) 150 mg PO BID #60 caps 03/20/22 [Rx Last Taken Unknown] enoxaparin 120 mg/0.8 mL subcutaneous syringe (Lovenox) 120 mg (0.8 mL) subcut Q12H #8 mL 03/20/22 [Rx Last Taken Unknown] cephalexin 500 mg capsule 500 mg PO Q6 #40 caps 04/09/22 [Rx Last Taken Unknown] nystatin 100,000 unit/gram topical cream 1 applic topical BID #30 grams 04/09/22 [Rx Last Taken Unknown] Allergy/AdvReac Type Severity Reaction Status Date / Time furosemide [From Lasix] Allergy Hives Verified 03/22/22 09:17 Iodinated Contrast Media Allergy Hives Verified 03/22/22 09:17 ondansetron [From Zofran] Allergy Hives Verified 03/22/22 09:17 propranolol Allergy Angioedema Verified 03/22/22 09:17 prochlorperazine AdvReac AGITATION Verified 03/22/22 09:17 [From Compazine] AND ANXIOUS Family History Other CVA (cerebral vascular accident) Heart disease Hypertension Thyroid disorder Surgical History H/O oophorectomy H/O tubal ligation History of cholecystectomy Hx of cholecystectomy Social History Smoking Status: Never smoker substance use type: does not use ROS ROS ED Constitutional Constitutional ED: Denies chills, fever(s) or sweats Eyes Eyes: Denies change in vision ENT ENT ED: Denies dysphagia or sore throat Cardiovascular Cardiovascular: Denies chest pain, leg edema, palpitations or racing heartbeat Respiratory/Chest Respiratory/Chest: Denies cough, dyspnea or dyspnea on exertion Gastrointestinal Gastrointestinal: Denies abdominal pain, diarrhea, nausea or vomiting Genitourinary Genitourinary ED: Denies dysuria, hematuria or urinary frequency Musculoskeletal Musculoskeletal: Denies back pain, extremity pain or neck pain Integumentary Reports rash; Denies wounds Neurologic Neurologic: Denies headache(s), paresthesias or weakness EXAM Physical Exam Const Vital Signs: 04/09/22 08:20 Temperature 98.0 F Temperature Source Temporal Pulse Rate 107 H Respiratory Rate 18 Blood Pressure 122/73 H Blood Pressure Mean 89 Pulse Ox 95 Oxygen Delivery Method Room Air Positive well nourished and well developed General Appearance ED: well developed and NAD HEENT Reports moist mucous membranes normocephalic and atraumatic Eyes PERRL, EOMs intact bilaterally and conjunctivae normal General Eye ED: Yes normal appearance of both eyes Neck no lymphadenopathy and supple General: Negative for tenderness Chest Wall Chest: Negative for tenderness Resp normal respiratory effort and normal air movement Effort and Inspection: symmetric chest movement; Negative for respiratory distress Cardio regular rate, regular rhythm and no murmurs Peripheral Pulses: pulses 2+ throughout GI normal to inspection, nondistended, normoactive bowel sounds and non-tender Palpation: Negative for guarding or rebound tenderness present Back/Spine no CVA tenderness and no thoracic nor lumbar tenderness Extremity normal to inspection General Extremety ED: Negative for edema or tenderness General Extremity: Negative for edema Neuro oriented x3 and no sensory deficits noted Sensorium / Orientation: awake and alert Skin Skin Narrative: Lower abdomen under lower folds, excoriations with erythema clear moisture in the folds. Tender palpation there is no vesicle lesions. There is extension to the groin left greater than right. MDM MDM MDM Narrative Medical decision making narrative: Patient nontoxic vital stable exam concerns for candidiasis in her umbilical folds extends to the groin. There is moisturization in the folds region. Discussed with patient portance of keeping it dry after cleaning it. She is given a powder, likely not getting into the areas of involvement. Discussed with patient we will provide nystatin cream. She will be covered with additional Keflex for potential cellulitic component with reportedly worsening. Return precautions otherwise discussed with patient may take up to 2 to 3 weeks to improve. She will follow with her PCP. All questions were answered. Discharge Plan Triage Chief Complaint: Rash ED Provider: Everton Stoll Dx/Rx/DC Orders Clinical Impression: Tinea, Cellulitis, History of diabetes mellitus Instructions: Cellulitis Dc, ED [place]io Skin Infection (Adult) Prescriptions: New nystatin 100,000 unit/gram cream 1 applic topical BID Qty: 30 0RF cephalexin [cephalexin] 500 mg capsule 500 mg PO Q6 Qty: 40 0RF No Action topiramate 200 MG tablet 200 mg PO BID fluoxetine 20 MG capsule 40 mg PO DAILY rizatriptan [Maxalt] 10 mg tablet 10 mg PO ONCE PRN (Reason: Migraine Headache) Rx Instructions: may repeat once after at least 2 hours, for migrains prazosin 5 mg capsule 5 mg PO DAILY Label Comments: Take 1 capsule by mouth daily at bedtime. promethazine 25 mg tablet 25 mg PO Q6H PRN PRN (Reason: nausea) buspirone 15 mg tablet 15 mg PO TID naproxen [Naprosyn] 500 mg tablet 500 mg PO BID PRN (Reason: pain) Qty: 20 0RF magnesium 500 mg Tablet 500 mg PO BID vitamin B complex [B Complex] Capsule 2 cap PO DAILY sumatriptan succinate [Imitrex] 25 mg tablet 25 mg PO Q2H PRN (Reason: migraine headache) Qty: 10 0RF Rx Instructions: do not exceed 8 doses per 24 hrs enoxaparin [Lovenox] 120 mg/0.8 mL syringe 120 mg subcut Q12H Qty: 8 0RF dabigatran etexilate [Pradaxa] 150 mg capsule 150 mg PO BID Qty: 60 0RF Rx Instructions: Start taking on 03/25/2022 after you have finished your Lovenox Primary Care Provider: Ki Weldon Referrals: Ki Weldon MD [Primary Care Provider] - 5-7 Days Activity Restrictions/Additional Instructions: Make sure after cleaning area soap and water to dry out the area. Use the topical cream as prescribed. Take antibiotic as prescribed. May take up to 2 to 3 weeks to resolve. Return if any worsening symptoms otherwise follow-up with your doctor. Disposition Disposition: Home, Self Care Discharge Date/Time: 04/09/22 09:08
== END 2022-04-09 09:08 | disposition home or self-care (01) ==
LOC: ED 09:04
PROVIDERS: Emergency Provider Emergency Medicine; PCP Family Medicine; Visit Provider Emergency Medicine
DX: B35.9 Dermatophytosis, unspecified (principal); E11.9 Type 2 diabetes mellitus without complications; L03.314 Cellulitis of groin; L03.316 Cellulitis of umbilicus; R21 Rash and other nonspecific skin eruption; F41.9 Anxiety disorder, unspecified; Z79.899 Other long term (current) drug therapy
CPT/HCPCS: 99282

== ENCOUNTER 2022-08-24 05:38 | Emergency (ER) | payer MEDICAID, SELFPAY ==
[2022-08-24 05:39] VITALS: BP 125/81; PULSE 135; RESP 18; TEMP 36.8; O2SAT 97; BMI 45.6
--- NOTE | 2022-08-24 05:50 | CT_ITS ---
EXAM: CT ABDOMEN AND PELVIS WITHOUT INTRAVENOUS CONTRAST CLINICAL INDICATION: right lower quadrant pain TECHNIQUE: Helically acquired images were obtained of the abdomen and pelvis without intravenous contrast. This CT exam was performed using one or more of the following dose reduction techniques: automated exposure control, adjustment of the mA and/or kV according to patient size, and/or use of iterative reconstruction technique. This report was created using [employer] report generation technology. RADIATION DOSE: Total DLP: 1265.73 mGy-cm. COMPARISON: Previous CT of 12/06/2021. FINDINGS: LOWER THORAX: Nonspecific groundglass opacities at the lung bases, most likely atelectasis. Trace of pleural fluid again noted bilaterally. No coronary artery calcification or significant pericardial effusion identified. ABDOMEN: LIVER: Fatty infiltration of the liver demonstrated. The liver remains enlarged with the right hepatic lobe measuring 23 cm in cephalocaudal dimension. GALLBLADDER AND BILE DUCTS: Cholecystectomy clips are present. No biliary ductal dilatation. PANCREAS: Unremarkable. No focal cystic mass. SPLEEN: Spleen remains prominent measuring 14.8 cm in AP diameter. ADRENALS: Unremarkable. No nodules. KIDNEYS AND URETERS: Kidneys are normal in size and shape. No renal or obstructing ureteral stones. No hydronephrosis. Normal renal size and position. STOMACH AND BOWEL: Unremarkable. No stomach or bowel distention. No focal inflammatory change. Colon is elongated and redundant. PELVIS: APPENDIX: Normal. No evidence of acute appendicitis. BLADDER: Urinary bladder is filled with excreted contrast. No bladder wall thickening. REPRODUCTIVE: Normal size uterus. Within right adnexal region is a 3 cm rounded focus of near water attenuation, consistent with a right ovarian cyst, which has developed since prior study. No left adnexal mass. No adnexal fat stranding. ABDOMEN and PELVIS: INTRAPERITONEAL SPACE: There is a trace of nonspecific free fluid in the cul-de-sac. No free air. BONES/JOINTS: Unremarkable. No suspicious lytic or blastic abnormality. SOFT TISSUES: The rectus and psoas muscles are symmetric. No discrete abdominal or pelvic wall hernia. VASCULATURE: Normal caliber abdominal aorta. No AAA. LYMPH NODES: Unremarkable. No enlarged lymph nodes. CT/Abdomen/Pelvis without Cont IMPRESSION: Interval development of a 3 cm rounded hypoattenuating lesion within the right ovary, consistent with an ovarian cyst, which could be confirmed with ultrasound. Normal appendix. Hepatosplenomegaly again noted. Cholecystectomy. No renal or obstructing ureteral stones. Electronically Signed: Octavio Alexander MD at 7:45 EST ,
--- NOTE | 2022-08-24 05:51 | ED.VIS.GI ---
HPI <Dr. Autumn Hernandez DO - Last Filed: 08/26/22 16:28> HPI - GI History of Present Illness Chief Complaint: Abd Pain Detail of Chief Complaint: Abdominal pain Informant: patient Narrative Narrative: Patient presents with abdominal pain that started about a week ago. Patient had a pelvic ultrasound 8 days ago that showed a right ovarian cyst. Patient has history of PCOS. Patient states that she throws up every time she tries to eat anything. Most of her pain is to the right lower quadrant. Patient states that she has had history of ovarian torsion and that was on the left and they removed her ovary. Patient's had a tubal ligation. She has had a cholecystectomy. Patient still has her appendix. Patient denies fever. She denies diarrhea. She denies blood in her stool or black tarry stool. She rates her pain an 8 out of 10. Prior similar symptoms: Yes PFSH <Dr. Autumn Hernandez DO - Last Filed: 08/26/22 16:28> PFS Medical History Anxiety Depression Diabetes DVT (deep venous thrombosis) Factor V Leiden Kidney stones Ovarian cyst PCOS (polycystic ovarian syndrome) PTSD (post-traumatic stress disorder) Pulmonary embolism TIA (transient ischemic attack) Home Medications topiramate 200 mg tablet 200 mg PO BID 09/10/18 [History Last Taken 08/25/22] fluoxetine 20 mg capsule 40 mg PO DAILY 12/24/19 [History Last Taken 08/25/22] prazosin 5 mg capsule 5 mg PO DAILY 06/06/21 [History Last Taken 08/25/22] promethazine 25 mg tablet 25 mg PO Q6H PRN PRN nausea 06/06/21 [History Last Taken 2 Days Ago ~08/24/22] magnesium 500 mg tablet 500 mg PO BID 10/10/21 [History Last Taken 08/25/22] vitamin B complex 2 cap PO DAILY 10/10/21 [History Last Taken 08/25/22] dulaglutide 0.75 mg/0.5 mL subcutaneous pen injector (Trulicity) 0.75 mg subcut TU DM 08/26/22 [History Last Taken 08/21/22] gabapentin 300 mg capsule 300 mg PO QHS RESTLESS LEG PAIN 08/26/22 [History Last Taken 08/25/22] hyoscyamine sulfate 0.125 mg tablet 0.125 mg PO Q4H ANXIETY 08/26/22 [History Last Taken 08/25/22] sumatriptan succinate 6 mg/0.5 mL subcutaneous pen injector 6 mg subcut Q12H MIGRAINE 08/26/22 [History Last Taken 1 Week Ago ~08/19/22] tizanidine 4 mg capsule 4 mg PO TID PRN Pain 08/26/22 [History Last Taken 2 Days Ago ~08/24/22] zolpidem 10 mg tablet 10 mg PO QHS PRN Sleep 08/26/22 [History Last Taken 08/25/22] Allergy/AdvReac Type Severity Reaction Status Date / Time furosemide [From Lasix] Allergy Hives Verified 08/26/22 05:15 Iodinated Contrast Media Allergy Hives Verified 08/26/22 05:15 nitrofurantoin Allergy Other Verified 08/26/22 05:15 [From Macrobid] ondansetron [From Zofran] Allergy Hives Verified 08/26/22 05:15 propranolol Allergy Angioedema Verified 08/26/22 05:15 prochlorperazine AdvReac AGITATION Verified 08/26/22 05:15 [From Compazine] AND ANXIOUS Family History Other CVA (cerebral vascular accident) Heart disease Hypertension Thyroid disorder Surgical History H/O oophorectomy H/O tubal ligation History of cholecystectomy Hx of cholecystectomy Social History Smoking Status: Never smoker substance use type: does not use ROS <Dr. Autumn Hernandez, - Last Filed: 08/26/22 16:28> ROS ED Review of Systems ROS Unobtainable: other Constitutional Constitutional ED: Reports lethargy; Denies chills, fever(s), sweats or weight loss Eyes Eyes: Denies blurry vision, change in vision or diplopia ENT ENT ED: Denies rhinorrhea or sore throat Cardiovascular Cardiovascular: Denies chest pain, orthopnea or racing heartbeat Respiratory/Chest Respiratory/Chest: Denies cough, dyspnea, dyspnea on exertion, orthopnea or sputum Gastrointestinal Gastrointestinal: Reports abdominal pain, nausea and vomiting; Denies diarrhea Genitourinary Genitourinary ED: Denies dysuria, hematuria or urinary frequency Musculoskeletal Musculoskeletal: Denies arthralgias, back pain, myalgias or neck pain Integumentary Denies abscess, Abrasions or rash Neurologic Neurologic: Denies headache(s) or weakness Psychiatric Psychiatric: Denies anxiety, depression or suicidal thoughts Endocrine Endocrinology: Denies polydipsia, polyphagia or polyuria Hematologic/Lymphatic Hematologic/Lymphatic: Denies easy bleeding, easy bruising or lymphadenopathy Allergic/Immunologic Allergic/Immunologic ED: Denies mouth swelling, tongue swelling or urticaria EXAM <Dr. Autumn Hernandez, DO - Last Filed: 08/26/22 16:28> Physical Exam Const Vital Signs: 08/24/22 05:39 Temperature 98.3 F Temperature Source Temporal Pulse Rate 135 H Respiratory Rate 18 Blood Pressure 125/81 H Blood Pressure Mean 95 Pulse Ox 97 Oxygen Delivery Method Room Air Positive well nourished and well developed General Appearance ED: well developed and NAD HEENT Reports TM's clear and moist mucous membranes normocephalic and atraumatic; Negative for trauma or tenderness Tympanic Membrane ED: Yes TM's clear Eyes PERRL and EOMs intact bilaterally General Eye ED: Negative for pale conjunctiva or scleral icterus Neck no lymphadenopathy, supple and no JVD General: Negative for tenderness Chest Wall inspection of chest normal and palpation of chest normal Chest: Negative for tenderness Resp normal respiratory effort and clear to auscultation bilaterally Effort and Inspection: Negative for respiratory distress or pain with movement Auscultation: Negative for rhonchi, wheezes or diminished lung sounds Cardio regular rate, regular rhythm, S1 normal heart sound, S2 normal heart sound and no murmurs Peripheral Pulses: pulses 2+ throughout GI normal to inspection, nondistended, normoactive bowel sounds, soft to palpation, non-distended and no masses GI Narrative: Tenderness to palpation over the right lower quadrant with some guarding. There is no rebound, rigidity, or peritoneal signs. Patient is morbidly obese. Back/Spine no CVA tenderness and no thoracic nor lumbar tenderness Extremity normal to inspection General Extremety ED: Negative for edema General Extremity: Negative for edema Neuro oriented x3, CN's II-XII intact bilaterally, no sensory deficits noted and gait normal Sensorium / Orientation: awake, alert, oriented to person, oriented to place and oriented to time Motor Exam: strength 5/5 throughout and strength abnormal Psych mental status grossly normal Skin no rashes or lesions noted and no wounds <Dr. Edwar Ibrahim MD - Last Filed: 08/24/22 08:11> Physical Exam Const Vital Signs: 08/24/22 05:39 Temperature 98.3 F Temperature Source Temporal Pulse Rate 135 H Respiratory Rate 18 Blood Pressure 125/81 H Blood Pressure Mean 95 Pulse Ox 97 Oxygen Delivery Method Room Air [facility] <Dr. Autumn Hernandez DO - Last Filed: 08/26/22 16:28> [facility] Narrative Medical decision making narrative: Patient very difficult IV stick and nursing unable to start IV despite using ultrasound. I was able to place a 20-gauge IV in the left external jugular vein. Lab work-up unremarkable. Etiology of her abdominal pain unclear therefore will obtain imaging to rule out appendicitis versus kidney stone versus ovarian cyst versus other etiology. Urinalysis also pending. Care of patient turned over to morning physician awaiting imaging results and final disposition. Patient was ordered 2 L of fluid and was medicated with Reglan, Benadryl, and morphine for pain. Patient's case was turned over to me for review and disposition. The CT of the abdomen was independently reviewed by me. The liver and spleen appear normal. The gallbladder appears normal. The kidneys appear normal with no evidence of hydronephrosis or hydroureter. I do not appreciate any inflammatory changes in the cecal region. Awaiting formal read by radiologist. Because patient has bacteriuria urine culture was sent. She was treated with Macrobid since she has tenderness on my exam in the suprapubic area. She states she is having difficulty urinating. She denies dysuria or hematuria. Since the radiologist read the CAT scan as negative as well and specifically states there is no evidence of appendicitis patient received p.o. Pyridium and Macrobid. She was discharged to home with prescription for Pyridium and 3-day course of Macrobid. Care of patient turned over to me awaiting CT chest to rule out PE. Patient was admitted upstairs by hospitalist Dr. Hung for syncope and chest pain and abdominal pain. Patient had a negative CTA chest. Patient remained hemodynamically stable. Lab Data Attestation: I reviewed the patient's lab results. Labs: Laboratory Results - last 24 hr 08/24/22 08/24/22 08/24/22 06:10 06:10 06:44 WBC 6.8 RBC 4.44 Hgb 12.1 Hct 36.1 L MCV 81.3 MCH 27.3 MCHC 33.5 RDW Std Deviation 37.8 RDW Coeff of Millie 12.8 Plt Count 272 MPV 9.6 Immature Gran % (Auto) 0.300 Neut % (Auto) 56.4 Lymph % (Auto) 35.9 Woods % (Auto) 4.8 Eos % (Auto) 2.3 Baso % (Auto) 0.3 Absolute Neuts (auto) 3.9 Absolute Lymphs (auto) 2.45 Nucleated RBC % 0 Sodium 136 Potassium 4.3 Chloride 103 Carbon Dioxide 24.0 Anion Gap 9 BUN 14 Creatinine 0.92 Estim Creat Clear Calc 67.47 Est GFR (MDRD) Af Amer 92 Est GFR (MDRD) Non-Af 76 BUN/Creatinine Ratio 15.2 Glucose 205 H Calcium 9.3 Total Bilirubin 0.60 AST 44 H ALT 44 Alkaline Phosphatase 79 Total Protein 7.9 Albumin 3.7 Globulin 4.2 Albumin/Globulin Ratio 0.9 Lipase 47 L Urine Color Yellow Urine Clarity Sl. Cloudy Urine pH 6.0 Ur Specific [place] 1.015 Urine Protein 30 H Urine Glucose (UA) 1000 H Urine Ketones 15 H Urine Occult Blood Negative Urine Nitrite Negative Urine Bilirubin Negative Urine Urobilinogen Normal Ur Leukocyte Esterase 100 H Urine RBC 0-5 SEEN Urine WBC 0-5 SEEN Ur Squamous Epith Cells 0-5 SEEN Urine Bacteria 3+ Hyaline Casts 0-5 SEEN Urine Mucus 0 SEEN Radiography Diagnostic Testing: Clinical Impression(s) from Imaging Studies Abdomen/Pelvis CT 08/24/22 05:50 IMPRESSION: Interval development of a 3 cm rounded hypoattenuating lesion within the right ovary, consistent with an ovarian cyst, which could be confirmed with ultrasound. Normal appendix. Hepatosplenomegaly again noted. Cholecystectomy. No renal or obstructing ureteral stones. Electronically Signed: Octavio Alexander MD at 7:45 EST , <Dr. Edwar Ibrahim MD - Last Filed: 08/24/22 08:11> MDM MDM Narrative Medical decision making narrative: Patient very difficult IV stick and nursing unable to start IV despite using ultrasound. I was able to place a 20-gauge IV in the left external jugular vein. Lab work-up unremarkable. Etiology of her abdominal pain unclear therefore will obtain imaging to rule out appendicitis versus kidney stone versus ovarian cyst versus other etiology. Urinalysis also pending. Care of patient turned over to morning physician awaiting imaging results and final disposition. Patient was ordered 2 L of fluid and was medicated with Reglan, Benadryl, and morphine for pain. Patient's case was turned over to me for review and disposition. The CT of the abdomen was independently reviewed by me. The liver and spleen appear normal. The gallbladder appears normal. The kidneys appear normal with no evidence of hydronephrosis or hydroureter. I do not appreciate any inflammatory changes in the cecal region. Awaiting formal read by radiologist. Because patient has bacteriuria urine culture was sent. She was treated with Macrobid since she has tenderness on my exam in the suprapubic area. She states she is having difficulty urinating. She denies dysuria or hematuria. Since the radiologist read the CAT scan as negative as well and specifically states there is no evidence of appendicitis patient received p.o. Pyridium and Macrobid. She was discharged to home with prescription for Pyridium and 3-day course of Macrobid. Lab Data Attestation: I reviewed the patient's lab results. Lab results narrative: CBC is unremarkable. H&H is unremarkable. Differential is unremarkable. Comprehensive metabolic panel reveals an elevated glucose of 205 with a normal CO2 and anion gap. Urine is positive for glucose, ketones, leukoesterase. The macro was negative for blood and nitrites. Micro reveals 0-5 RBCs, 0-5 WBCs, 0-5 subcutaneous epithelial cells and 3+ bacteria. There are also hyaline casts. Labs: Laboratory Results - last 24 hr 08/24/22 08/24/22 08/24/22 06:10 06:10 06:44 WBC 6.8 RBC 4.44 Hgb 12.1 Hct 36.1 L MCV 81.3 MCH 27.3 MCHC 33.5 RDW Std Deviation 37.8 RDW Coeff of Millie 12.8 Plt Count 272 MPV 9.6 Immature Gran % (Auto) 0.300 Neut % (Auto) 56.4 Lymph % (Auto) 35.9 Woods % (Auto) 4.8 Eos % (Auto) 2.3 Baso % (Auto) 0.3 Absolute Neuts (auto) 3.9 Absolute Lymphs (auto) 2.45 Nucleated RBC % 0 Sodium 136 Potassium 4.3 Chloride 103 Carbon Dioxide 24.0 Anion Gap 9 BUN 14 Creatinine 0.92 Estim Creat Clear Calc 67.47 Est GFR (MDRD) Af Amer 92 Est GFR (MDRD) Non-Af 76 BUN/Creatinine Ratio 15.2 Glucose 205 H Calcium 9.3 Total Bilirubin 0.60 AST 44 H ALT 44 Alkaline Phosphatase 79 Total Protein 7.9 Albumin 3.7 Globulin 4.2 Albumin/Globulin Ratio 0.9 Lipase 47 L Urine Color Yellow Urine Clarity Sl. Cloudy Urine pH 6.0 Ur Specific [place] 1.015 Urine Protein 30 H Urine Glucose (UA) 1000 H Urine Ketones 15 H Urine Occult Blood Negative Urine Nitrite Negative Urine Bilirubin Negative Urine Urobilinogen Normal Ur Leukocyte Esterase 100 H Urine RBC 0-5 SEEN Urine WBC 0-5 SEEN Ur Squamous Epith Cells 0-5 SEEN Urine Bacteria 3+ Hyaline Casts 0-5 SEEN Urine Mucus 0 SEEN Radiography Diagnostic Testing: Clinical Impression(s) from Imaging Studies Abdomen/Pelvis CT 08/24/22 05:50 IMPRESSION: Interval development of a 3 cm rounded hypoattenuating lesion within the right ovary, consistent with an ovarian cyst, which could be confirmed with ultrasound. Normal appendix. Hepatosplenomegaly again noted. Cholecystectomy. No renal or obstructing ureteral stones. Electronically Signed: Octavio Alexander MD at 7:45 EST , Discharge Plan Triage Chief Complaint: Abd Pain ED Provider: Autumn Hernandez Dx/Rx/DC Orders Clinical Impression: Abdominal pain, Vomiting, Sinus tachycardia, Bacteria in urine, Cyst of right ovary Instructions: ED Cystitis Female Adult Prescriptions: No Action topiramate 200 MG tablet 200 mg PO BID fluoxetine 20 MG capsule 40 mg PO DAILY prazosin 5 mg capsule 5 mg PO DAILY Label Comments: Take 1 capsule by mouth daily at bedtime. promethazine 25 mg tablet 25 mg PO Q6H PRN PRN (Reason: nausea) magnesium 500 mg Tablet 500 mg PO BID vitamin B complex Capsule 2 cap PO DAILY tizanidine 4 mg capsule 4 mg PO TID PRN (Reason: Pain) Label Comments: TAKE 1 CAPSULE THREE TIMES DAILY NEEDED FOR PAIN hyoscyamine sulfate 0.125 mg tablet 0.125 mg PO Q4H Label Comments: TAKE 1 TABLET BY MOUTH EVERY 4 HOURS NEEDED gabapentin 300 mg capsule 300 mg PO QHS Label Comments: TAKE 1 CAPSULE BY MOUTH EVERY DAY AT BEDTIME zolpidem 10 mg Tablet 10 mg PO QHS PRN (Reason: Sleep) sumatriptan succinate 6 mg/0.5 mL pen injector 6 mg SUBCUT Q12H Label Comments: INJECT 6 (SIX) MG SUBCUTANEOUSLY TWICE DAILY NEEDED FOR HEADACHE Trulicity 0.75 mg/0.5 mL pen injector 0.75 mg SUBCUT TU Label Comments: Inject 0.75 mg subcutaneously one time a week. Inject dose once per week. Discard Pen After Primary Care Provider: Ki Weldon Referrals: Ki Weldon MD [Primary Care Provider] - 3-5 Days if not improving Disposition Disposition: Home, Self Care Discharge Date/Time: 08/24/22 08:26
[2022-08-24 06:20] LABS: Absolute Lymphocyte Count 2.45 X10^3/uL (0.83-4.51); Absolute Neutrophil Count 3.9 X10^3/uL (2.0-7.7); Basophil# 0.02 X10^3/uL; Basophil% 0.3 % (0-1); Eosinophil# 0.16 X10^3/uL; Eosinophils% 2.3 % (0-5); Hematocrit 36.1 % (37-47); Hemoglobin 12.1 g/dL (12.0-15.0); Lymphocyte # 2.45 X10^3/ul (0.83-4.51); Lymphocyte % 35.9 % (19-41); Mean Corp Hgb Conc 33.5 g/dL (32-36); Mean Corpuscular Hgb 27.3 pg (27.0-32.0); Mean Corpuscular Volume 81.3 fL (81-99); Mean Platelet Vol. 9.6 fl (6.2-12.0); Monocyte# 0.33 X10^3/uL; Monocyte% 4.8 % (0-10); NRBC Flagged by Analyzer 0 % (0-5); Neutrophil # 3.85 X10^3/uL (2.7-7.7); Neutrophil % 56.4 % (47-70); Platelet Count 272 K/mm3 (150-450); RBC Distribution Width CV 12.8 % (11.6-14.6); RBC Distribution Width SD 37.8 fl (35.1-43.9); Red Blood Count 4.44 M/mm3 (4.2-5.4); White Blood Count 6.8 K/mm3 (4.4-11.0)
[2022-08-24 06:39] LABS: ALB/GLOB Ratio 0.9 RATIO (0.9-2.4); AST(SGOT) 44 U/L (15-37); Alanine Aminotransfer ALT/SGPT 44 U/L (13-56); Albumin, Serum 3.7 g/dL (3.2-5.0); Alkaline Phosphatase 79 U/L (45-117); Anion Gap 9 (5-15); BUN 14 mg/dL (7-18); BUN/Creat Ratio 15.2 RATIO (10-20); Calcium,Total 9.3 mg/dL (8.5-10.1); Chloride 103 mmol/L (98-107); Creatinine, Serum 0.92 mg/dL (0.55-1.02); EST Glomerular Filtration Rate 76 mL/min (>60); Est Glom Filt Rate - Afr Amer 92 mL/min (>60); Estimated Creatinine Clearance 67.47 ml/min; Globulin 4.2 g/dL (2.2-4.2); Glucose 205 mg/dL (74-106); Lipase 47 U/L (73-393); Potassium 4.3 mmol/L (3.5-5.1); Protein, Total 7.9 g/dL (6.4-8.2); Sodium Level 136 mmol/L (136-145)
[2022-08-24] MEDS: DiphenhydrAMINE 50 MG/ML Syringe 25 MG IV (06:39)
[2022-08-24] MEDS: Morphine 4 MG/ML Syringe IV (06:40)
[2022-08-24] MEDS: 0.9% Normal Saline 1,000 ML 1000 ML IV (06:40)
[2022-08-24] MEDS: Metoclopramide 10 MG/2 ML Vial IV (06:40)
[2022-08-24 06:50] LABS: Mucous, Urine 0 SEEN /hpf (<or=2+)
[2022-08-24 07:01] LABS: Color, Urine Yellow (Yellow); Glucose, Dipstick 1000 mg/dl (Normal); Ketone-Dipstick 15 mg/dl (Negative); Leukocyte Esterase-Dipstick 100 /ul (Negative); Nitrite-Dipstick Negative (Negative); Occult Blood-Urine Negative /ul (Negative); Protein-Dipstick 30 mg/dl (Negative); Specific Gravity, Urine 1.015 (1.002-1.030); Urine Bilirubin Dipstick Negative (Negative); Urine Clarity Sl. Cloudy (Clear); Urine Urobilinogen Normal (Normal)
[2022-08-24 07:08] LABS: Bacteria 3+ /hpf (None Seen); Hyaline Cast 0-5 SEEN /lpf (0-5); Red Blood Cells-Urine 0-5 SEEN /hpf (0-5); Squamous Epithelial Cells - UA 0-5 SEEN /hpf (5-10); White Blood Cells 0-5 SEEN /hpf (0-5)
--- NOTE | 2022-08-24 08:10 | ED.RN ---
PT REFUSING ORAL MEDS AT THIS TIME STATING NAUSEA. ALSO REPORTS MACROBID ALLERGY. MACROBID ADDED TO ALLERGY LIST AND INFORMED PT THAT DR WILL CHANGE ANTIBIOTIC FOR HOME USE. PT STATES SHE WILL NOT TAKE ANYTHING ORDERED FOR HOME USE D/T NAUSEA AND IT PROBABLY WON'T STAY DOWN. PT EDUCATED ON IMPORTANCE OF ANTIBIOTICS FOR INFECTION, INSTRUCTED TO TAKE WITH SMALL AMTS OF FOOD WHEN NAUSEA PASSES.
[2022-08-24 08:22] VITALS: BP 133/94; PULSE 98; RESP 16; O2SAT 98
== END 2022-08-24 08:26 | disposition home or self-care (01) ==
PROVIDERS: Emergency Provider Emergency Medicine; PCP Family Medicine; Visit Provider Emergency Medicine
DX: R82.71 Bacteriuria (principal); E11.9 Type 2 diabetes mellitus without complications; R07.9 Chest pain, unspecified; R55 Syncope and collapse; R11.10 Vomiting, unspecified; N83.201 Unspecified ovarian cyst, right side; R00.0 Tachycardia, unspecified; Z90.49 Acquired absence of other specified parts of digestive tract; R10.9 Unspecified abdominal pain
CPT/HCPCS: 74176; 80053; 81001; 83690; 85025; 87086; 87088; 96361; 96374; 96375; 99284; A4216

== ENCOUNTER 2022-08-26 05:10 | Observation (INO) | payer MEDICAID, SELFPAY ==
[2022-08-26 05:12] VITALS: BP 149/98; PULSE 117; RESP 15; TEMP 36.6; O2SAT 98; BMI 46.5
--- NOTE | 2022-08-26 05:22 | CT_ITS ---
STUDY: CT BRAIN WITHOUT CONTRAST REASON FOR EXAM: Female, 32 years old. Trauma, patient with coagulopathy RADIATION DOSAGE (If Supplied By Facility): CTDIvol = ( 44.99 ) mGy, DLP = ( 745.49 ) mGycm TECHNIQUE: Transaxial CT imaging of the brain was performed without administration of intravenous contrast material. Individualized dose optimization techniques were used for this CT. COMPARISON: No relevant priors. FINDINGS: Normal soft tissue structures. Normal calvarium. Normal size ventricles and extra-axial spaces for the patient''s age. Normal white matter tracts of the cerebral hemispheres. Normal basal ganglia and thalami. Normal brainstem. Normal cerebellum. There is no intracranial hemorrhage. There are no findings of an acute ischemic infarction. Normal visualized paranasal sinuses. CT/Brain/Head without Contrast IMPRESSION: Normal unenhanced CT scan of the brain. Electronically Signed: Jorge Fermin MD at 8:36 EST ,
--- NOTE | 2022-08-26 05:22 | CT_ITS ---
STUDY: CTA CHEST REASON FOR EXAM: Female, 32 years old. Atypical chest pain. HISTORY OF PE AND CLOTTING DISORDER RADIATION DOSAGE (If Supplied By Facility): CTDIvol = ( 10.27 ) mGy, DLP = ( 407.64 ) mGycm TECHNIQUE: The examination was performed with the intravenous administration of IV 100mL [id number]-370. Post-processing of the angiographic images was performed, with multiplanar reformation and 3D reconstruction. Individualized dose optimization techniques were used for this CT. COMPARISON: None. FINDINGS: There is chronic elevation of the right hemidiaphragm Normal enhancement of the main pulmonary artery and right and left pulmonary arteries. Normal enhancement of the bilateral peripheral pulmonary arteries. There is no demonstrated pulmonary embolism. Normal thoracic aorta and visualized great vessels. There is no demonstrated aortic dissection. Normal heart and pericardium. Normal mediastinum. Normal hilar regions. Normal visualized trachea and bronchi. Lungs are underexpanded There is interstitial edema in the lung castillo which may be due to a poor historian effort but also could be due to pulmonary vascular congestion or inflammatory process. There is a small free-flowing left pleural effusion. Normal chest wall structures. Normal osseous structures. Limited cuts through the upper abdomen show hepatosplenomegaly with fatty infiltration of the liver. CT/CTA Chest W/WO Contrast IMPRESSION: No demonstrated PE, or thoracic aortic aneurysm or dissection Chronic elevation the right hemidiaphragm, interstitial edema noted in both lung castillo. This could be due to pulmonary vascular congestion, diffuse inflammatory process or poor inspiratory effort. Please correlate with physical exam Small free-flowing left pleural effusion Hepatosplenomegaly with diffuse fatty infiltration of the liver Electronically Signed: Jorge Fermin MD at 8:50 EST ,
--- NOTE | 2022-08-26 05:24 | EKG12_ITS ---
Test Reason : DYSRHYTHMIA Blood Pressure : / mmHG Vent. Rate : 110 BPM Atrial Rate : 110 BPM P-R Int : 180 ms QRS Dur : 096 ms QT Int : 354 ms P-R-T Axes : 049 017 027 degrees QTc Int : 479 ms Sinus tachycardia Otherwise normal ECG Confirmed by CLEO HOLLIS, ROSE ([id number]), international editorial producer ADRIANNA DOZIER ([id number]) on 08/27/2022 11:42:30 AM Referred By: PC Confirmed By:ROSE GALLO MD
--- NOTE | 2022-08-26 05:41 | EX.ED.DYSGE1 ---
HPI History of Present Illness Chief Complaint: Syncope Narrative Narrative: Patient presents with a syncopal episode today and a left-sided head injury. She feels lightheaded when she stands up. She has no vision changes, she has no neck pain she has no other injury other than left part of her forehead. She does have some chest pain for the past 2 to 3 days, she does have a history of factor V Leiden and she has had PEs in the past. [facility] Medical History Anxiety Depression Diabetes DVT (deep venous thrombosis) Factor V Leiden Kidney stones Ovarian cyst PCOS (polycystic ovarian syndrome) PTSD (post-traumatic stress disorder) Pulmonary embolism TIA (transient ischemic attack) Home Medications topiramate 200 mg tablet 200 mg PO BID 09/10/18 [History Last Taken 11/22/19 22:00] fluoxetine 20 mg capsule 40 mg PO DAILY 12/24/19 [History Last Taken Unknown] rizatriptan 10 mg tablet (Maxalt) 10 mg PO ONCE PRN Migraine Headache 02/03/21 [History Last Taken Unknown] buspirone 15 mg tablet 15 mg PO TID 06/06/21 [History Last Taken Unknown] naproxen 500 mg tablet (Naprosyn) 500 mg PO BID PRN pain #20 tabs 06/06/21 [Rx Last Taken Unknown] prazosin 5 mg capsule 5 mg PO DAILY 06/06/21 [History Last Taken Unknown] promethazine 25 mg tablet 25 mg PO Q6H PRN PRN nausea 06/06/21 [History Last Taken Unknown] magnesium 500 mg tablet 500 mg PO BID 10/10/21 [History Last Taken Unknown] vitamin B complex 2 cap PO DAILY 10/10/21 [History Last Taken Unknown] sumatriptan succinate 25 mg tablet (Imitrex) 25 mg PO Q2H PRN migraine headache #10 tabs 03/01/22 [Rx Last Taken Unknown] dabigatran etexilate 150 mg capsule (Pradaxa) 150 mg PO BID #60 caps 03/20/22 [Rx Last Taken Unknown] enoxaparin 120 mg/0.8 mL subcutaneous syringe (Lovenox) 120 mg (0.8 mL) subcut Q12H #8 mL 03/20/22 [Rx Last Taken Unknown] cephalexin 500 mg capsule 500 mg PO Q6 #40 caps 04/09/22 [Rx Last Taken Unknown] nystatin 100,000 unit/gram topical cream 1 applic topical BID #30 grams 04/09/22 [Rx Last Taken Unknown] cephalexin 500 mg capsule 500 mg PO Q6 #12 CAPSULES 08/24/22 [Rx Last Taken Unknown] phenazopyridine 200 mg tablet (Pyridium) 200 mg PO TID 6 doses #6 tabs 08/24/22 [Rx Last Taken Unknown] Allergy/AdvReac Type Severity Reaction Status Date / Time furosemide [From Lasix] Allergy Hives Verified 08/26/22 05:15 Iodinated Contrast Media Allergy Hives Verified 08/26/22 05:15 nitrofurantoin Allergy Other Verified 08/26/22 05:15 [From Macrobid] ondansetron [From Zofran] Allergy Hives Verified 08/26/22 05:15 propranolol Allergy Angioedema Verified 08/26/22 05:15 prochlorperazine AdvReac AGITATION Verified 08/26/22 05:15 [From Compazine] AND ANXIOUS Family History Other CVA (cerebral vascular accident) Heart disease Hypertension Thyroid disorder Surgical History H/O oophorectomy H/O tubal ligation History of cholecystectomy Hx of cholecystectomy Social History Smoking Status: Never smoker substance use type: does not use ROS ROS ED ROS Narrative Past medical history: Reviewed Medications: Reviewed Social history: Noncontributory Review of systems: All systems negative except as indicated General: No fever. Syncope as in HPI Eyes: No visual changes ENT: No upper airway congestion, normal voice Neck: No neck pain Cardiovascular: 2 days of chest pain. It is nonpleuritic Respiratory: No shortness of breath or cough Gastrointestinal: No abdominal pain, nausea vomiting or diarrhea Genitourinary: No dysuria Musculoskeletal: Denies myalgias no difficulty with ambulation Skin: No rash Neurological: No memory loss, confusion or any focal weakness Psych: No recent behavioral changes Hematologic: No easy bleeding or easy bruising EXAM Physical Exam Narrative Exam Narrative: Physical exam General: Patient appears relatively comfortable she does appear anxious Head: Normocephalic, she points to the left side of her forehead, there is no contusions lacerations or abrasions in that region. Eyes: Conjunctiva not pale ENT: Moist mucous membranes Neck: Supple, Nontender, No lymphadenopathy Cardiovascular: Regular rhythm, slightly tachycardic. No obvious murmur. Respiratory: No distress, CTA bilaterally Abdomen: Soft, Nontender, Nondistended Back: Nontender, Normal Inspection. Negative for: CVA tenderness Extremities: Nontender, No edema Skin: Normal color, No rash Neurological: Alert, Normal Strength, Normal Sensation Psychological: Normal affect Const Vital Signs: 08/26/22 05:12 08/26/22 05:18 Temperature 97.8 F Temperature Source Temporal Pulse Rate 117 H Respiratory Rate 15 Respiratory Effort Non-Labored Respiratory Pattern Normal Blood Pressure 149/98 H Blood Pressure Mean 115 Pulse Ox 98 Oxygen Delivery Method Room Air [facility] Lab Data Labs: Laboratory Results - last 24 hr 08/26/22 08/26/22 06:12 06:12 WBC 4.3 L RBC 4.31 Hgb 11.5 L Hct 37.0 MCV 85.8 D MCH 26.7 L MCHC 31.1 L D RDW Std Deviation 39.8 RDW Coeff of Millie 12.8 Plt Count 219 MPV 9.2 Immature Gran % (Auto) 0.200 Neut % (Auto) 38.1 L Lymph % (Auto) 51.5 H [place] % (Auto) 5.8 Eos % (Auto) 3.7 Baso % (Auto) 0.7 Absolute Neuts (auto) 1.7 L Absolute Lymphs (auto) 2.23 Nucleated RBC % 0 Sodium 137 Potassium 4.0 Chloride 109 H Carbon Dioxide 21.0 Anion Gap 7 BUN 10 Creatinine 0.59 Estim Creat Clear Calc 105.21 Est GFR (MDRD) Af Amer 153 Est GFR (MDRD) Non-Af 126 BUN/Creatinine Ratio 16.9 Glucose 253 H Calcium 8.8 Total Bilirubin 0.30 AST 29 ALT 35 Alkaline Phosphatase 74 Troponin I High Sens 3 Total Protein 6.4 Albumin 3.0 L Globulin 3.4 Albumin/Globulin Ratio 0.9 EKG Initial EKG: Comments: Sinus rhythm with a rate of 110. Normal [place] interval, QTc is slightly prolonged at 479. No ischemic changes. Interpreted by emergency doctor Treatment and Re-Evaluation Narrative: A. Problems addressed Patient's EKG slows slight increase in the QTc, she has had this chronically and has seen supply chain technician this was ruled out as a source of her syncope, she has had syncope in the past. Because of her chest pain, tachycardia and history of PE a CT angiogram was ordered, however the patient has a dye allergy and she will get premedicated before the CT angiogram. B. Amount and/or complexity of the data 1. I reviewed prior inpatient record from November 2021 when she presented with TIA like symptoms. CBC CMP and troponin were ordered and interpreted by me 2. Independent interpretation of test Telemetry: Sinus rhythm on the monitor with a rate in the low 100s without any ectopy. C. Risk of complications and/or morbidity Differential diagnosis: She had syncope and a head injury, worried about intracranial pathology, CT is unremarkable, I am also worried about pulmonary embolism especially that she has chest pain syncope and tachycardia as well as a prior history and she is anticoagulated. Was worried about ischemic etiology. She does have a prolonged QTc interval but this has been worked up and not thought to be the source of her syncopal episodes. When nurses were unable to get an IV. I was able to draw blood through a peripheral line guided by ultrasound however that line also infiltrated. Because of the patient's high risk of PE I do believe she needs an urgent CT angiogram therefore central line was done. See procedure note. Patient will be turned over to the oncoming ER doctor Procedures Other Procedures Procedure(s): Central line Verbal consent Triple-lumen catheter inserted in the right IJ via ultrasound guidance. 1% lidocaine about 3 mL were used for analgesia. Technique with sterile fully gowned and gloved. Seldinger technique was used. Return in all 3 lm chest x-ray verify position Patient tolerated procedure well Discharge Plan Triage Chief Complaint: Syncope ED Provider: Catrachito Funes Dx/Rx/DC Orders Clinical Impression: Syncope, Prolonged QT interval, Chest pain, Head injury Prescriptions: No Action topiramate 200 MG tablet 200 mg PO BID fluoxetine 20 MG capsule 40 mg PO DAILY rizatriptan [Maxalt] 10 mg tablet 10 mg PO ONCE PRN (Reason: Migraine Headache) Rx Instructions: may repeat once after at least 2 hours, for migrains prazosin 5 mg capsule 5 mg PO DAILY Label Comments: Take 1 capsule by mouth daily at bedtime. promethazine 25 mg tablet 25 mg PO Q6H PRN PRN (Reason: nausea) buspirone 15 mg tablet 15 mg PO TID naproxen [Naprosyn] 500 mg tablet 500 mg PO BID PRN (Reason: pain) Qty: 20 0RF magnesium 500 mg Tablet 500 mg PO BID vitamin B complex [B Complex] Capsule 2 cap PO DAILY sumatriptan succinate [Imitrex] 25 mg tablet 25 mg PO Q2H PRN (Reason: migraine headache) Qty: 10 0RF Rx Instructions: do not exceed 8 doses per 24 hrs enoxaparin [Lovenox] 120 mg/0.8 mL syringe 120 mg subcut Q12H Qty: 8 0RF dabigatran etexilate [Pradaxa] 150 mg capsule 150 mg PO BID Qty: 60 0RF Rx Instructions: Start taking on 03/25/2022 after you have finished your Lovenox nystatin 100,000 unit/gram cream 1 applic topical BID Qty: 30 0RF cephalexin [cephalexin] 500 mg capsule 500 mg PO Q6 Qty: 40 0RF phenazopyridine [Pyridium] 200 mg tablet 200 mg PO TID Qty: 6 0RF cephalexin 500 mg capsule 500 mg PO Q6 Qty: 12 0RF Primary Care Provider: Ki Weldon Referrals: Ki Weldon MD [Primary Care Provider] -
[2022-08-26 06:24] LABS: Absolute Lymphocyte Count 2.23 X10^3/uL (0.83-4.51); Absolute Neutrophil Count 1.7 X10^3/uL (2.0-7.7); Basophil# 0.03 X10^3/uL; Basophil% 0.7 % (0-1); Eosinophil# 0.16 X10^3/uL; Eosinophils% 3.7 % (0-5); Hemoglobin 11.5 g/dL (12.0-15.0); Lymphocyte # 2.23 X10^3/ul (0.83-4.51); Lymphocyte % 51.5 % (19-41); Mean Corp Hgb Conc 31.1 g/dL (32-36); Mean Corpuscular Hgb 26.7 pg (27.0-32.0); Mean Corpuscular Volume 85.8 fL (81-99); Mean Platelet Vol. 9.2 fl (6.2-12.0); Monocyte# 0.25 X10^3/uL; Monocyte% 5.8 % (0-10); NRBC Flagged by Analyzer 0 % (0-5); Neutrophil # 1.65 X10^3/uL (2.7-7.7); Neutrophil % 38.1 % (47-70); Platelet Count 219 K/mm3 (150-450); RBC Distribution Width CV 12.8 % (11.6-14.6); RBC Distribution Width SD 39.8 fl (35.1-43.9); Red Blood Count 4.31 M/mm3 (4.2-5.4); White Blood Count 4.3 K/mm3 (4.4-11.0)
[2022-08-26 06:37] LABS: ALB/GLOB Ratio 0.9 RATIO (0.9-2.4); AST(SGOT) 29 U/L (15-37); Alanine Aminotransfer ALT/SGPT 35 U/L (13-56); Alkaline Phosphatase 74 U/L (45-117); Anion Gap 7 (5-15); BUN 10 mg/dL (7-18); BUN/Creat Ratio 16.9 RATIO (10-20); Calcium,Total 8.8 mg/dL (8.5-10.1); Chloride 109 mmol/L (98-107); Creatinine, Serum 0.59 mg/dL (0.55-1.02); EST Glomerular Filtration Rate 126 mL/min (>60); Est Glom Filt Rate - Afr Amer 153 mL/min (>60); Estimated Creatinine Clearance 105.21 ml/min; Globulin 3.4 g/dL (2.2-4.2); Glucose 253 mg/dL (74-106); Protein, Total 6.4 g/dL (6.4-8.2); Sodium Level 137 mmol/L (136-145); Troponin-I HS 3 pg/mL (3.0-54.0)
--- NOTE | 2022-08-26 06:55 | RAD_ITS ---
EXAM: XR CHEST, 1 VIEW CLINICAL INDICATION: central line placement TECHNIQUE: Frontal view of the chest. This report was created using [employer] report generation technology. COMPARISON: Previous chest radiograph of 03/20/2022. FINDINGS: LUNGS AND PLEURAL SPACES: Degree of inspiration has improved. No acute pulmonary infiltrates or pleural effusions are identified. No pneumothorax. HEART: Normal heart size and pulmonary vasculature. MEDIASTINUM: Central airways and mediastinal contour are unremarkable. BONES/JOINTS: No acute osseous abnormality. SOFT TISSUES: Unremarkable. TUBES, LINES AND DEVICES: Right jugular venous catheter has been inserted and its tip is projected over the mid SVC, in satisfactory position. Leadless cardiac pacemaker or loop recorder projected over the heart. RAD/CXR for Line Placement IMPRESSION: Satisfactory central venous catheter positioning. No pneumothorax. Electronically Signed: Octavio Alexander MD at 7:23 EST ,
[2022-08-26] MEDS: Ondansetron 4 MG/2 ML Vial IV (07:08)
[2022-08-26] MEDS: Morphine 4 MG/ML Syringe IV (07:10)
[2022-08-26] MEDS: DiphenhydrAMINE 50 MG/ML Syringe 25 MG IV ×2 (07:13→07:22)
[2022-08-26] MEDS: MethylPREDNISolone 125 MG/2 ML Vial IV (07:14)
[2022-08-26 07:23] VITALS: BP 118/89; PULSE 108; RESP 15; O2SAT 99
--- NOTE | 2022-08-26 07:37 | HP.PCM.HOS_ITS ---
HPI - General General Date of Admission: 08/26/22 Date of Service: 08/26/22 Chief Complaint: Syncope HPI Narrative ERIN TORRES, is a 32 F who presents to the emergency room at [facility] after suffering an episode of syncope earlier this morning, patient states she was up walking around getting a book out of her library at home and then the next thing she knew she was on the floor, she lives by herself, she does not know how long she was unconscious. Patient bumped the side of her head on the left temporal area, she has no laceration there is some slight swelling but this examiner does not see any ecchymosis at this time. Patient does have some ecchymosis over her left little toe, it is not swollen, it is slightly tender I do not believe it is fractured. Patient has a history of factor V Leiden, she does not take any anticoagulants because she states she has a history of sleepwalking and her family physician felt it was too hazardous to place her on anticoagulation. Patient states that she had an episode approximately 3 to 4 days ago of syncope, she states she was evaluated for this and sent home from the ER. Labs obtained included an EKG which showed normal sinus rhythm, no ST-T wave changes were noted, patient's labs were unremarkable except for +3 bacteria in her urine, patient is having new urinary tract symptoms. At the time of this dictation, patient will be undergoing a CTA of her chest to rule out PE, she is having no symptoms of shortness of breath or chest discomfort however, central line had to be placed by the emergency room doctor for venous access. Patient's medical problems include PTSD and depression, she takes antidepressants and she also takes nausea medication on a chronic basis. Patient will be placed in observation status on PCU for syncope, she will be monitored on telemetry and she will be ambulated during her hospital stay and orthostatic blood pressures will be charted. [facility] Medical History Anxiety Depression Diabetes DVT (deep venous thrombosis) Factor V Leiden Kidney stones Ovarian cyst PCOS (polycystic ovarian syndrome) PTSD (post-traumatic stress disorder) Pulmonary embolism TIA (transient ischemic attack) Home Medications topiramate 200 mg tablet 200 mg PO BID 09/10/18 [History Last Taken 11/22/19 22:00] fluoxetine 20 mg capsule 40 mg PO DAILY 06/11/20 [History Last Taken Unknown] rizatriptan 10 mg tablet (Maxalt) 10 mg PO ONCE PRN Migraine Headache 02/03/21 [History Last Taken Unknown] buspirone 15 mg tablet 15 mg PO TID 06/06/21 [History Last Taken Unknown] naproxen 500 mg tablet (Naprosyn) 500 mg PO BID PRN pain #20 tabs 06/06/21 [Rx Last Taken Unknown] prazosin 5 mg capsule 5 mg PO DAILY 06/06/21 [History Last Taken Unknown] promethazine 25 mg tablet 25 mg PO Q6H PRN PRN nausea 06/06/21 [History Last Taken Unknown] magnesium 500 mg tablet 500 mg PO BID 10/10/21 [History Last Taken Unknown] vitamin B complex 2 cap PO DAILY 10/10/21 [History Last Taken Unknown] sumatriptan succinate 25 mg tablet (Imitrex) 25 mg PO Q2H PRN migraine headache #10 tabs 03/01/22 [Rx Last Taken Unknown] dabigatran etexilate 150 mg capsule (Pradaxa) 150 mg PO BID #60 caps 03/20/22 [Rx Last Taken Unknown] enoxaparin 120 mg/0.8 mL subcutaneous syringe (Lovenox) 120 mg (0.8 mL) subcut Q12H #8 mL 03/20/22 [Rx Last Taken Unknown] cephalexin 500 mg capsule 500 mg PO Q6 #40 caps 04/09/22 [Rx Last Taken Unknown] nystatin 100,000 unit/gram topical cream 1 applic topical BID #30 grams 04/09/22 [Rx Last Taken Unknown] cephalexin 500 mg capsule 500 mg PO Q6 #12 CAPSULES 08/24/22 [Rx Last Taken Unknown] phenazopyridine 200 mg tablet (Pyridium) 200 mg PO TID 6 doses #6 tabs 08/24/22 [Rx Last Taken Unknown] Allergy/AdvReac Type Severity Reaction Status Date / Time furosemide [From Lasix] Allergy Hives Verified 08/26/22 05:15 Iodinated Contrast Media Allergy Hives Verified 08/26/22 05:15 nitrofurantoin Allergy Other Verified 08/26/22 05:15 [From Macrobid] ondansetron [From Zofran] Allergy Hives Verified 08/26/22 05:15 propranolol Allergy Angioedema Verified 08/26/22 05:15 prochlorperazine AdvReac AGITATION Verified 08/26/22 05:15 [From Compazine] AND ANXIOUS Family History Other CVA (cerebral vascular accident) Heart disease Hypertension Thyroid disorder Surgical History H/O oophorectomy H/O tubal ligation History of cholecystectomy Hx of cholecystectomy Social History Smoking Status: Never smoker substance use type: does not use ROS Constitutional Constitutional: Denies anorexia, change in weight, chills, fatigue, fever(s), malaise, night sweats or weakness Eyes Eyes: Denies blurry vision, change in vision, discharge from eye(s) or eye pain Cardiovascular Cardiovascular: Reports syncope; Denies chest pain, claudication, dyspnea on exertion, edema, lightheadedness or palpitations Respiratory/Chest Respiratory/Chest: Denies cough, dyspnea, excessive phlegm production, hemoptysis, productive cough, shortness of breath at rest or shortness of breath with exertion Gastrointestinal Gastrointestinal: Denies abdominal pain, constipation, diarrhea, hematemesis, hematochezia, melena, nausea or vomiting Genitourinary Genitourinary: Denies dysuria, hematuria, nocturia, urinary frequency, urinary hesitancy, urinary incontinence or urinary urgency Musculoskeletal Musculoskeletal: Denies back pain, joint pain, joint stiffness, joint swelling, myalgias or neck pain Neurologic Neurologic: Denies abnormal gait, abnormal speech, confusion, disequilibrium, dizziness, focal weakness, headache(s), loss of vision, numbness, other visual disturbances, paresthesias, syncope or tingling Psychiatric Psychiatric: Denies anxiety, cognitive impairment, depression, irritability, m ood swings or suicidal ideation Endocrine Endocrinology: Denies change in body appearance, cold intolerance, excessive sweating, heat intolerance, polydipsia or polyuria Hematologic/Lymphatic Hematologic/Lymphatic: Denies none, anemia, easy bleeding, easy bruising or lymphadenopathy Allergic/Immunologic Allergic/Immunologic: Denies rhinitis, urticaria, eczemia or asthma Vital Signs Vital Signs Vital Signs: 08/26/22 05:12 08/26/22 05:18 08/26/22 07:23 Temperature 97.8 F Temperature Source Temporal Pulse Rate 117 H 108 H Respiratory Rate 15 15 Respiratory Effort Non-Labored Respiratory Pattern Normal Blood Pressure 149/98 H 118/89 H Blood Pressure Mean 115 98 Pulse Ox 98 99 Oxygen Delivery Method Room Air Room Air Weight Weight: 111.6 kg Body Mass Index (BMI) 46.5 Physical Exam Const alert, oriented x3, no apparent distress and average body habitus Constitutional Narrative: Patient is morbidly obese General Appearance: cooperative, well kempt and well developed Orientation / Consciousness: awake, oriented to person, oriented to place and oriented to time HEENT normocephalic and moist oral mucous membranes HEENT Narrative: Patient has a small raised area on her left parietal scalp area, there is no ecchymosis noted, there is no laceration noted. Eyes PERRL, EOMs intact bilaterally and conjunctivae normal Neck supple, no JVD, thyroid normal and no carotid bruits General: trachea midline Resp normal respiratory effort, no retractions, no use of accessory muscles and clear to auscultation bilaterally Auscultation: Negative for rales, rhonchi or wheezes Cardio regular rate, regular rhythm, S1 normal heart sound, S2 normal heart sound, no murmurs, no rub and no gallops GI normal to inspection, nondistended, normoactive bowel sounds, soft to palpation, non-tender and non-distended Extremity no clubbing, cyanosis or edema Skin no rashes or lesions noted General Skin Exam: no breakdown Neuro oriented x3, CN's II-XII intact bilaterally, moves all extremities, no focal motor deficits and no sensory deficits noted Sensorium / Orientation: awake, alert, oriented to person, oriented to place and oriented to time Speech: speech normal Psych affect normal Results Lab / Micro Data Result Diagrams: 08/26/22 06:12 08/26/22 06:12 Labs: Laboratory Results - last 24 hr 08/26/22 06:12: WBC 4.3 L, RBC 4.31, Hgb 11.5 L, Hct 37.0, MCV 85.8 D, MCH 26.7 L, MCHC 31.1 L D, RDW Std Deviation 39.8, RDW Coeff of Millie 12.8, Plt Count 219, MPV 9.2, Immature Gran % (Auto) 0.200, Neut % (Auto) 38.1 L, Lymph % (Auto) 51.5 H, [place] % (Auto) 5.8, Eos % (Auto) 3.7, Baso % (Auto) 0.7, Absolute Neuts (auto) 1.7 L, Absolute Lymphs (auto) 2.23, Nucleated RBC % 0 08/26/22 06:12: Sodium 137, Potassium 4.0, Chloride 109 H, Carbon Dioxide 21.0, Anion Gap 7, BUN 10, Creatinine 0.59, Estim Creat Clear Calc 105.21, Est GFR (MDRD) Af Amer 153, Est GFR (MDRD) Non-Af 126, BUN/Creatinine Ratio 16.9, Glucose 253 H, Calcium 8.8, Total Bilirubin 0.30, AST 29, ALT 35, Alkaline Phosphatase 74, Troponin I High Sens 3, Total Protein 6.4, Albumin 3.0 L, Globulin 3.4, Albumin/Globulin Ratio 0.9 Radiology Impression Chest X-Ray 08/26/22 06:55 IMPRESSION: Satisfactory central venous catheter positioning. No pneumothorax. Electronically Signed: Octavio Alexander MD at 7:23 EST , Assessment & Plan Assessment/Plan (1) Syncope: PLAN: Plan 1. Syncope-etiology unclear, most probably secondary to vasovagal etiology, patient will be placed in observation status on PCU and monitored on telemetry, orthostatic blood pressures will be monitored, she will be walked in the hughes by nursing, I do not feel that is necessary to get PT and OT involved. #2 history of factor V Leiden-patient is not on any anticoagulation at the present time, CTA of the chest is pending at this time, patient will need follow-up with her primary care doctor as an outpatient #3 chronic major depression-patient will remain on her current psych medications while hospitalized #4 PTSD by history-patient will remain on her current psych medications while hospitalized #5 chronic migraines-patient will remain on her migraine medication and uses it as needed during her hospitalization #6 morbid obesity-complicates care, medical course, recovery, and prognosis #7 bacteriuria-without pyuria, patient has no symptoms of urinary tract infection at this time, I have elected not to treat her for a cystitis. #8 left parietal scalp contusion-this does not seem to be severe, there is not noticeable ecchymosis at this time, patient has no laceration in the area, there is only minor swelling. Total clinical time spent by myself addressing the patient's medical issues, reviewing all the data, and collaborating with patient's care team: 75 minutes Charges/Coding Visit Charges Inpatient E&M: 90354 Init Hosp L3
[2022-08-26 08:28] VITALS: BP 120/79; PULSE 107; RESP 16; TEMP 36.4; O2SAT 98
[2022-08-26 09:00] VITALS: BMI 45.9
[2022-08-26 09:09] VITALS: BP 136/103; PULSE 99; RESP 16; TEMP 36.8; O2SAT 98
[2022-08-26] MEDS: Ketorolac 30 MG/ML Syringe IV (11:44)
[2022-08-26] MEDS: DiphenhydrAMINE 50 MG/ML Syringe IV (11:45)
[2022-08-26] MEDS: 0.9% Saline Lock 10 ML Syringe IV (11:46)
[2022-08-26 11:51] VITALS: BP 151/103; BP 152/94; BP 158/95; PULSE 105; PULSE 99
[2022-08-26] MEDS: Topiramate 200 MG Tablet PO (12:53)
[2022-08-26] MEDS: FLUoxetine 20 MG Capsule 40 MG PO (12:53)
[2022-08-26 15:05] VITALS: BP 147/96; PULSE 88; RESP 16; TEMP 36.6; O2SAT 97
--- NOTE | 2022-08-26 15:13 | DS.PCM_ITS ---
Providers Date of Admission: 08/26/22 Date of Discharge: 08/26/22 Primary Care Physician: Dr. Ki Weldon MD Reason For Visit: SYNCOCPE Diagnosis Discharge Diagnosis (1) Syncope: Status: Acute Code(s): R55 - Syncope and collapse Plan 1. Syncope-etiology unclear, most probably secondary to vasovagal etiology, patient will be placed in observation status on PCU and monitored on telemetry, orthostatic blood pressures will be monitored, she will be walked in the hughes by nursing, I do not feel that is necessary to get PT and OT involved. #2 history of factor V Leiden-patient is not on any anticoagulation at the present time, CTA of the chest is pending at this time, patient will need follow-up with her primary care doctor as an outpatient #3 chronic major depression-patient will remain on her current psych medications while hospitalized #4 PTSD by history-patient will remain on her current psych medications while hospitalized #5 chronic migraines-patient will remain on her migraine medication and uses it as needed during her hospitalization #6 morbid obesity-complicates care, medical course, recovery, and prognosis #7 bacteriuria-without pyuria, patient has no symptoms of urinary tract infection at this time, I have elected not to treat her for a cystitis. #8 left parietal scalp contusion-this does not seem to be severe, there is not noticeable ecchymosis at this time, patient has no laceration in the area, there is only minor swelling. Total clinical time spent by myself addressing the patient's medical issues, reviewing all the data, and collaborating with patient's care team: 75 minutes Medications at Discharge Home Medications topiramate 200 mg tablet 200 mg PO BID 09/10/18 fluoxetine 20 mg capsule 40 mg PO DAILY 12/24/19 prazosin 5 mg capsule 5 mg PO DAILY 06/06/21 promethazine 25 mg tablet 25 mg PO Q6H PRN PRN nausea 06/06/21 magnesium 500 mg tablet 500 mg PO BID 10/10/21 vitamin B complex 2 cap PO DAILY 10/10/21 dulaglutide 0.75 mg/0.5 mL subcutaneous pen injector (Trulicity) 0.75 mg subcut TU DM 08/26/22 gabapentin 300 mg capsule 300 mg PO QHS RESTLESS LEG PAIN 08/26/22 hyoscyamine sulfate 0.125 mg tablet 0.125 mg PO Q4H ANXIETY 08/26/22 sumatriptan succinate 6 mg/0.5 mL subcutaneous pen injector 6 mg subcut Q12H MIGRAINE 08/26/22 tizanidine 4 mg capsule 4 mg PO TID PRN Pain 08/26/22 zolpidem 10 mg tablet 10 mg PO QHS PRN Sleep 08/26/22 Hospital Course Operations None Procedures None Summary of Care Provided Minutes Spent on Discharge: 31 Hospital Course: This 32-year-old white female was seen in the emergency room at [facility] for evaluation after a syncopal episode at home. Patient stated that she had an episode a few days prior also at home. Patient states that she lives by herself and she went to get a book out of her library and then she woke up on the floor, she does not actually remember falling, she states that she struck the left side of her head but there was minimal swelling over the left parietal area and no laceration or ecchymosis was noted. Work-up in the emergency room was unremarkable, a central line had to be placed and the patient for venous access, she underwent a CTA of the chest due to a history of factor V Leiden mutation-she states that she was not put on anticoagulation because I am a sleepwalker and the doctor that I was seeing felt it was too dangerous to take anticoagulation. CTA of the chest was unremarkable. Patient was not orthostatic in the emergency room. Patient was placed in observation status on PCU, she complained about her central venous catheter and stated that she would like to go home AGAINST MEDICAL ADVICE shortly after she arrived on PCU, she complained of a headache- patient has a history of migraines-she was given IV Toradol and IV Benadryl, she then requested IV narcotics, I told the patient through nursing that I was not going to give her IV narcotics and that I would give her oral narcotics, at that point the patient stated that she would take the oral narcotics and that she wanted to be discharged home, I requested that she sign out AMA and I wrote for her to have Beggs before she was discharged and her central line was removed. Patient was discharged in stable condition on 08/26/2022, she was urged to follow-up with her PCP regarding her syncopal episode. Weight / BMI Weight Weight: 110.223 kg Body Mass Index (BMI) 45.9 ABG / Lab / Microbiology Data Result Diagrams: 08/26/22 06:12 08/26/22 06:12 Laboratory: Laboratory Results - last 24 hr 08/26/22 06:12: WBC 4.3 L, RBC 4.31, Hgb 11.5 L, Hct 37.0, MCV 85.8 D, MCH 26.7 L, MCHC 31.1 L D, RDW Std Deviation 39.8, RDW Coeff of Millie 12.8, Plt Count 219, MPV 9.2, Immature Gran % (Auto) 0.200, Neut % (Auto) 38.1 L, Lymph % (Auto) 51.5 H, [place] % (Auto) 5.8, Eos % (Auto) 3.7, Baso % (Auto) 0.7, Absolute Neuts (auto) 1.7 L, Absolute Lymphs (auto) 2.23, Nucleated RBC % 0 08/26/22 06:12: Sodium 137, Potassium 4.0, Chloride 109 H, Carbon Dioxide 21.0, Anion Gap 7, BUN 10, Creatinine 0.59, Estim Creat Clear Calc 105.21, Est GFR (MDRD) Af Amer 153, Est GFR (MDRD) Non-Af 126, BUN/Creatinine Ratio 16.9, Gl ucose 253 H, Calcium 8.8, Total Bilirubin 0.30, AST 29, ALT 35, Alkaline Phosphatase 74, Troponin I High Sens 3, Total Protein 6.4, Albumin 3.0 L, Globulin 3.4, Albumin/Globulin Ratio 0.9 Radiography Diagnostic Testing: Radiology Impression Brain CT 08/26/22 05:22 IMPRESSION: Normal unenhanced CT scan of the brain. Electronically Signed: Jorge Fermin MD at 8:36 EST , Chest CTA 08/26/22 05:22 IMPRESSION: No demonstrated PE, or thoracic aortic aneurysm or dissection Chronic elevation the right hemidiaphragm, interstitial edema noted in both lung castillo. This could be due to pulmonary vascular congestion, diffuse inflammatory process or poor inspiratory effort. Please correlate with physical exam Small free-flowing left pleural effusion Hepatosplenomegaly with diffuse fatty infiltration of the liver Electronically Signed: Jorge Fermin MD at 8:50 EST , Chest X-Ray 08/26/22 06:55 IMPRESSION: Satisfactory central venous catheter positioning. No pneumothorax. Electronically Signed: Octavio Alexander MD at 7:23 EST , D/C Instructions Discharge Diet: No restrictions Weight Bearing Status: Full weight bearing Meaningful Use Info Meaningful Use Diagnoses (Choose all that apply): None applicable Discharge Plan Admission Admit Date/Time: 08/26/22 07:28 Primary Reason for Your Visit: syncope Attending Provider: Ki Hung Primary Care Provider: Ki Weldon Instructions Additional Instructions / Restrictions: Please follow-up with your family physician as soon as possible regarding your syncope Discharge Orders/Prescriptions Prescriptions: Continued topiramate 200 MG tablet 200 mg PO BID fluoxetine 20 MG capsule 40 mg PO DAILY prazosin 5 mg capsule 5 mg PO DAILY Label Comments: Take 1 capsule by mouth daily at bedtime. promethazine 25 mg tablet 25 mg PO Q6H PRN PRN (Reason: nausea) magnesium 500 mg Tablet 500 mg PO BID vitamin B complex Capsule 2 cap PO DAILY tizanidine 4 mg capsule 4 mg PO TID PRN (Reason: Pain) Label Comments: TAKE 1 CAPSULE THREE TIMES DAILY NEEDED FOR PAIN hyoscyamine sulfate 0.125 mg tablet 0.125 mg PO Q4H Label Comments: TAKE 1 TABLET BY MOUTH EVERY 4 HOURS NEEDED gabapentin 300 mg capsule 300 mg PO QHS Label Comments: TAKE 1 CAPSULE BY MOUTH EVERY DAY AT BEDTIME zolpidem 10 mg Tablet 10 mg PO QHS PRN (Reason: Sleep) sumatriptan succinate 6 mg/0.5 mL pen injector 6 mg SUBCUT Q12H Label Comments: INJECT 6 (SIX) MG SUBCUTANEOUSLY TWICE DAILY NEEDED FOR HEADACHE Trulicity 0.75 mg/0.5 mL pen injector 0.75 mg SUBCUT TU Label Comments: Inject 0.75 mg subcutaneously one time a week. Inject dose once per week. Dis card Pen After Referrals / Follow Up: Ki Weldon MD [Primary Care Provider] - Disposition Disposition (needs filled in before D/C Order can be placed): Against Medical Advice
[2022-08-26] MEDS: HYDROcodone Bitartrate/Apap 5/325 Tablet PO (15:15)
--- NOTE | 2022-08-26 17:05 | NURSING ---
Called [facility] pharmacy per Dr. Hung to make sure they got the prescription he sent, as patient has been calling asking about it. This RN called [facility] pharmacy; they stated that they had received the prescription, but were out of the medication as there is a nationwide backorder. Dr. Hung notified and stated that he could order Ultram if patient was ok with that. Dr. Hung asked this RN to call patient and ask about medication change. This RN attempted to call patient but the only phone number on file states that there is a restriction and call would not go through. No other phone numbers for patient in the chart.
--- NOTE | 2022-08-26 17:32 | NURSING ---
Patient called back since prescription could not be filled. Patient stated that she would like ultram ordered since she could not get other pain medication due to nationwide shortage. Dr. Hung notified and said he would send prescription.
== END 2022-08-26 16:14 | disposition left against medical advice (07) ==
LOC: ED 05:50 → PCU 07:43
PROVIDERS: Admitting Provider Internal Medicine; Emergency Provider Emergency Medicine; PCP Family Medicine; Visit Provider Internal Medicine
DX: R55 Syncope and collapse (principal); E66.01 Morbid (severe) obesity due to excess calories; Z68.42 Body mass index [BMI] 45.0-49.9, adult; D68.51 Activated protein C resistance; E11.9 Type 2 diabetes mellitus without complications; Z79.01 Long term (current) use of anticoagulants; R94.31 Abnormal electrocardiogram [ECG] [EKG]; R07.9 Chest pain, unspecified; F43.10 Post-traumatic stress disorder, unspecified; Z79.899 Other long term (current) drug therapy; G43.709 Chronic migraine without aura, not intractable, without status migrainosus; F32.9 Major depressive disorder, single episode, unspecified; Z86.711 Personal history of pulmonary embolism; Z86.718 Personal history of other venous thrombosis and embolism; F41.9 Anxiety disorder, unspecified; S00.03XA Contusion of scalp, initial encounter; W19.XXXA Unspecified fall, initial encounter; Y92.009 Unspecified place in unspecified non-institutional (private) residence as the place of occurrence of the external cause
CPT/HCPCS: 36556; 70450; 71045; 71275; 80053; 84484; 85025; 93005; 96374; 96375; 96376; 99221; 99284; Q9967; A4216; G0378; J2405

== ENCOUNTER 2022-09-06 12:11 | Emergency (ER) | payer MEDICAID, SELFPAY ==
[2022-09-06 12:11] VITALS: BP 127/73; PULSE 120; RESP 16; TEMP 37.1; O2SAT 99; BMI 44.0
[2022-09-06 12:22] VITALS: O2SAT 97
--- NOTE | 2022-09-06 12:39 | CM.ED ---
SW Note SW updated RN Daniela and 's (Yudith) that patient has a care plan. Evon VANESSA
--- NOTE | 2022-09-06 13:04 | RAD_ITS ---
STUDY: X-RAY - LUMBAR SPINE REASON FOR EXAM: Female, 32 years old. Injury/Pain. Tingling in both lower extremities. TECHNIQUE: 2 view(s) of the lumbar spine were obtained. COMPARISON: Comparison is made with prior study of 11/22/2019. FINDINGS: There is an exaggerated lumbar lordosis. There is no substantial scoliosis. There is a normal alignment of the vertebrae. Normal vertebral bodies and endplates. Normal disc space heights. Large amount of fecal material is seen in the colon. The patient is status post cholecystectomy. RAD/Lumbar Spine 2 or 3 Views IMPRESSION: Exaggerated lumbar lordosis. Electronically Signed: Abdulaziz Chicas MD at 13:28 EST ,
--- NOTE | 2022-09-06 14:25 | EDS_ITS ---
HPI HPI - Fall History of Present Illness Chief Complaint: Fall Informant: patient Occured/Mechanism Occurred: Days (2 days ago) Mechanism/Context: Yes same level fall Narrative: Patient had a syncopal episode. Usually ambulates: Without assistance Pain/Injury Location: Low back and sacral Pain Location: back Quality of Pain: Throbbing Worsened by: Laying down, movement Relieved by: Tylenol, Advil, ice Associated Symptoms Associated Symptoms: Positive for Loss of consciousness; Negative for Parasthesias, Weakness, Loss of function, Inability to ambulate or Amnesia Length of loss of consciousness: Unknown Narrative Narrative: Patient presents after a fall that occurred 2 days ago. Patient states she had a syncopal episode and fell. Patient thinks she landed on her buttocks and low back. Patient states her pain is mainly over the sacrum and low back. Patient describes it as throbbing. Patient states it is worse with certain movements and with laying down. Patient states she has been taking Tylenol, Advil, and ice with minimal improvement. Patient admits to some numbness and tingling in her low back and buttocks. Patient has been able to ambulate since the fall. [facility] Medical History Anxiety Chest pain Depression Diabetes DVT (deep venous thrombosis) Factor V Leiden Head injury Kidney stones Ovarian cyst PCOS (polycystic ovarian syndrome) Prolonged QT interval PTSD (post-traumatic stress disorder) Pulmonary embolism TIA (transient ischemic attack) Home Medications topiramate 200 mg tablet 200 mg PO BID 09/10/18 [History Last Taken 08/25/22] fluoxetine 20 mg capsule 40 mg PO DAILY 12/24/19 [History Last Taken 08/25/22] prazosin 5 mg capsule 5 mg PO DAILY 06/06/21 [History Last Taken 08/25/22] promethazine 25 mg tablet 25 mg PO Q6H PRN PRN nausea 06/06/21 [History Last Taken 2 Days Ago ~08/24/22] magnesium 500 mg tablet 500 mg PO BID 10/10/21 [History Last Taken 08/25/22] vitamin B complex 2 cap PO DAILY 10/10/21 [History Last Taken 08/25/22] dulaglutide 0.75 mg/0.5 mL subcutaneous pen injector (Trulicity) 0.75 mg subcut TU DM 08/26/22 [History Last Taken 08/21/22] gabapentin 300 mg capsule 300 mg PO QHS RESTLESS LEG PAIN 08/26/22 [History Last Taken 08/25/22] hydrocodone-acetaminophen 5-325mg 5mg-325mg 1 tab PO Q6H PRN pain 3 days #8 tabs 08/26/22 [Rx Last Taken Unknown] hydrocodone-acetaminophen 5-325mg 5mg-325mg 1 tab PO Q6H PRN pain 3 days #8 tabs 08/26/22 [Rx Last Taken Unknown] hyoscyamine sulfate 0.125 mg tablet 0.125 mg PO Q4H ANXIETY 08/26/22 [History Last Taken 08/25/22] sumatriptan succinate 6 mg/0.5 mL subcutaneous pen injector 6 mg subcut Q12H MIGRAINE 08/26/22 [History Last Taken 1 Week Ago ~08/19/22] tizanidine 4 mg capsule 4 mg PO TID PRN Pain 08/26/22 [History Last Taken 2 Days Ago ~08/24/22] tramadol 50 mg tablet 50 mg PO Q6H PRN pain #14 tabs 08/26/22 [Rx Last Taken Unknown] zolpidem 10 mg tablet 10 mg PO QHS PRN Sleep 08/26/22 [History Last Taken 08/25/22] Allergy/AdvReac Type Severity Reaction Status Date / Time furosemide [From Lasix] Allergy Hives Verified 08/26/22 05:15 Iodinated Contrast Media Allergy Hives Verified 08/26/22 05:15 nitrofurantoin Allergy Other Verified 08/26/22 05:15 [From Macrobid] ondansetron [From Zofran] Allergy Hives Verified 08/26/22 05:15 propranolol Allergy Angioedema Verified 08/26/22 05:15 prochlorperazine AdvReac AGITATION Verified 08/26/22 05:15 [From Compazine] AND ANXIOUS Family History Other CVA (cerebral vascular accident) Heart disease Hypertension Thyroid disorder Surgical History H/O oophorectomy H/O tubal ligation History of cholecystectomy Hx of cholecystectomy Social History Smoking Status: Never smoker substance use type: does not use ROS ROS ED Constitutional Constitutional ED: Denies chills or fever(s) Eyes Eyes: Denies blurry vision or change in vision ENT ENT ED: Denies rhinorrhea or sore throat Cardiovascular Cardiovascular: Denies chest pain or palpitations Respiratory/Chest Respiratory/Chest: Denies cough or dyspnea Gastrointestinal Gastrointestinal: Reports nausea; Denies vomiting Genitourinary Genitourinary ED: Denies dysuria or hematuria Musculoskeletal Musculoskeletal: Reports back pain; Denies neck pain Integumentary Denies abscess or rash Neurologic Neurologic: Reports paresthesias; Denies headache(s) or weakness Allergic/Immunologic Allergic/Immunologic ED: Denies mouth swelling or urticaria EXAM Physical Exam Const Vital Signs: 09/06/22 12:11 09/06/22 12:22 Temperature 98.7 F Temperature Source Temporal Pulse Rate 120 H Respiratory Rate 16 Respiratory Effort Normal Non-Labored Respiratory Depth Normal Respiratory Pattern Normal Blood Pressure 127/73 H Blood Pressure Mean 91 Pulse Ox 99 97 Oxygen Delivery Method Room Air Room Air Positive well nourished, well developed and obese General Appearance ED: well developed and NAD Nutritional Appearance: obese HEENT Reports normocephalic atraumatic Neck full ROM and supple Back/Spine Back/Spine Narrative: There is tenderness over the lumbar spine and paraspinal muscles. There is no bony crepitance or step-off. There is some mild tenderness over the sacrum. There is slightly limited range of motion in all motions of the lumbar spine secondary to pain. Strength is 5/5 bilaterally in lower extremities. There are no sensory deficits noted. Deep tendon reflexes are 2/4 bilaterally. Straight leg raises were negative bilaterally. Lumbar Spine / Lower Back: paraspinal muscle tenderness and straight leg raise negative bilaterally Neuro oriented x3, CN's II-XII intact bilaterally, moves all extremities, no focal motor deficits and no sensory deficits noted Sensorium / Orientation: alert Motor Exam: strength 5/5 throughout Psych mental status grossly normal MDM MDM MDM Narrative Medical decision making narrative: Differential diagnosis includes lumbosacral strain, compression fracture, spondylolisthesis, and contusion. X-rays of the lumbar spine will be obtained to assess for fracture and spondylolisthesis. Radiography Diagnostic Testing: Clinical Impression(s) from Imaging Studies Lumbar Spine X-Ray 09/06/22 13:04 IMPRESSION: Exaggerated lumbar lordosis. Electronically Signed: Abdulaziz Chicas MD at 13:28 EST , X-rays of the lumbar spine were obtained. There are 2 views. On my independent interpretation, there is no acute fracture or spondylolisthesis noted. Radiologist also interpreted the x-rays and agrees. He also noted exaggerated lumbar lordosis. Treatment and Re-Evaluation Narrative: Patient was advised of her findings. Patient was instructed use ice to the area. Patient was instructed to continue Tylenol and ibuprofen as needed for pain. Patient was instructed to do range of motion and stretching exercises. The patient was instructed to follow-up with her primary care physician in 5 to 7 days. Patient understood and was agreeable with the plan. All questions were answered. Discharge Plan Triage Chief Complaint: Fall ED Provider: Justyn Pendleton Dx/Rx/DC Orders Clinical Impression: Lumbar contusion, Fall Instructions: ED Back Contusion Prescriptions: No Action topiramate 200 MG tablet 200 mg PO BID fluoxetine 20 MG capsule 40 mg PO DAILY prazosin 5 mg capsule 5 mg PO DAILY Label Comments: Take 1 capsule by mouth daily at bedtime. promethazine 25 mg tablet 25 mg PO Q6H PRN PRN (Reason: nausea) magnesium 500 mg Tablet 500 mg PO BID vitamin B complex Capsule 2 cap PO DAILY tizanidine 4 mg capsule 4 mg PO TID PRN (Reason: Pain) Label Comments: TAKE 1 CAPSULE THREE TIMES DAILY NEEDED FOR PAIN hyoscyamine sulfate 0.125 mg tablet 0.125 mg PO Q4H Label Comments: TAKE 1 TABLET BY MOUTH EVERY 4 HOURS NEEDED gabapentin 300 mg capsule 300 mg PO QHS Label Comments: TAKE 1 CAPSULE BY MOUTH EVERY DAY AT BEDTIME zolpidem 10 mg Tablet 10 mg PO QHS PRN (Reason: Sleep) sumatriptan succinate 6 mg/0.5 mL pen injector 6 mg SUBCUT Q12H Label Comments: INJECT 6 (SIX) MG SUBCUTANEOUSLY TWICE DAILY NEEDED FOR HEADACHE Trulicity 0.75 mg/0.5 mL pen injector 0.75 mg SUBCUT TU Label Comments: Inject 0.75 mg subcutaneously one time a week. Inject dose once per week. Discard Pen After hydrocodone-acetaminophen 5-325 mg tablet 1 tab PO Q6H PRN (Reason: pain) 3 Days Qty: 8 0RF Rx Instructions: one or two every 6 H as needed for headache hydrocodone-acetaminophen 5-325 mg tablet 1 tab PO Q6H PRN (Reason: pain) 3 Days Qty: 8 0RF Rx Instructions: 1-2 Q6H prn headache tramadol 50 mg tablet 50 mg PO Q6H PRN (Reason: pain) Qty: 14 0RF Rx Instructions: one or two every six hours as needed for headache Primary Care Provider: Ki Weldon Referrals: Ki Weldon MD [Primary Care Provider] - 5-7 Days Disposition Disposition: Home, Self Care
== END 2022-09-06 14:49 | disposition home or self-care (01) ==
PROVIDERS: Emergency Provider Emergency Medicine; PCP Family Medicine; Visit Provider Emergency Medicine
DX: S30.0XXA Contusion of lower back and pelvis, initial encounter (principal); E11.9 Type 2 diabetes mellitus without complications; R55 Syncope and collapse; E66.9 Obesity, unspecified; W18.30XA Fall on same level, unspecified, initial encounter
CPT/HCPCS: 72100; 99282

== ENCOUNTER 2022-09-19 01:33 | Emergency (ER) | payer MEDICAID, SELFPAY ==
[2022-09-19 01:34] VITALS: BP 140/93; PULSE 115; RESP 19; TEMP 36.6; O2SAT 99; BMI 44.3
--- NOTE | 2022-09-19 02:06 | RAD_ITS ---
EXAM: XR CHEST, 1 VIEW CLINICAL INDICATION: chest pain TECHNIQUE: Frontal view of the chest. This report was created using [employer] report generation technology. COMPARISON: None. FINDINGS: LUNGS AND PLEURAL SPACES: Unremarkable. No consolidation or edema. No pneumothorax. No effusion. HEART: Unremarkable. Cardiac silhouette not enlarged. MEDIASTINUM: Central airways and mediastinal contour are unremarkable. BONES/JOINTS: Unremarkable. SOFT TISSUES: Unremarkable. TUBES, LINES AND DEVICES: Left chest central venous catheter. RAD/Chest 1 View (Portable) IMPRESSION: No acute findings in the chest. Electronically Signed: Benito Aden MD at 2:45 EST ,
[2022-09-19 03:00] LABS: Lactic Acid 1.6 mmol/L (0.4-1.9)
[2022-09-19] MEDS: proCHLORPERazine 10 MG/2 ML Vial IV (03:04)
[2022-09-19] MEDS: 0.9% Normal Saline 1,000 ML 999 ML IV (03:04)
[2022-09-19] MEDS: DiphenhydrAMINE 50 MG/ML Syringe IV (03:04)
[2022-09-19 03:25] LABS: Absolute Lymphocyte Count 1.89 X10^3/uL (0.83-4.51); Absolute Neutrophil Count 1.5 X10^3/uL (2.0-7.7); Basophil# 0.02 X10^3/uL; Basophil% 0.5 % (0-1); Eosinophil# 0.24 X10^3/uL; Eosinophils% 6.3 % (0-5); Hematocrit 40.5 % (37-47); Hemoglobin 13.5 g/dL (12.0-15.0); Lymphocyte # 1.89 X10^3/ul (0.83-4.51); Lymphocyte % 49.6 % (19-41); Mean Corp Hgb Conc 33.3 g/dL (32-36); Mean Corpuscular Hgb 27.4 pg (27.0-32.0); Mean Corpuscular Volume 82.2 fL (81-99); Mean Platelet Vol. 8.7 fl (6.2-12.0); Monocyte# 0.21 X10^3/uL; Monocyte% 5.5 % (0-10); NRBC Flagged by Analyzer 0 % (0-5); Neutrophil # 1.45 X10^3/uL (2.7-7.7); Neutrophil % 38.1 % (47-70); Platelet Count 168 K/mm3 (150-450); RBC Distribution Width CV 12.7 % (11.6-14.6); RBC Distribution Width SD 38.2 fl (35.1-43.9); Red Blood Count 4.93 M/mm3 (4.2-5.4); White Blood Count 3.8 K/mm3 (4.4-11.0)
[2022-09-19 03:59] LABS: Anion Gap 8 (5-15); BUN 12 mg/dL (7-18); BUN/Creat Ratio 19.4 RATIO (10-20); Calcium,Total 8.8 mg/dL (8.5-10.1); Chloride 104 mmol/L (98-107); Creatinine, Serum 0.62 mg/dL (0.55-1.02); EST Glomerular Filtration Rate 120 mL/min (>60); Est Glom Filt Rate - Afr Amer 145 mL/min (>60); Estimated Creatinine Clearance 100.12 ml/min; Glucose 205 mg/dL (74-106); Potassium 3.7 mmol/L (3.5-5.1); Procalcitonin < 0.04 ng/mL (0.00-0.09); Sodium Level 136 mmol/L (136-145)
[2022-09-19 04:26] VITALS: BP 129/91; PULSE 107; RESP 11; O2SAT 97
--- NOTE | 2022-09-19 04:38 | EDS_ITS ---
HPI History of Present Illness Chief Complaint: Wound Narrative Narrative: Patient is a 32-year-old female with past medical history of factor V Leiden deficiency and recurrent headaches. She is currently not on anticoagulation as there has been difficulty obtaining the prescription. She needs to receive multiple infusions each month secondary to her headaches and therefore has had a port placed. She states she had a previous port and this was removed and a new port was reinserted just on Saturday. She states that over the last 2 days she has now developed a rash over the left chest wall where the port was placed and states that it is itchy in nature. She states she is concerned that it is an infectious rash or change and secondary to this comes in for evaluation [facility] Medical History Anxiety Chest pain Depression Diabetes DVT (deep venous thrombosis) Factor V Leiden Head injury Kidney stones Ovarian cyst PCOS (polycystic ovarian syndrome) Prolonged QT interval PTSD (post-traumatic stress disorder) Pulmonary embolism TIA (transient ischemic attack) Home Medications topiramate 200 mg tablet 200 mg PO BID 09/10/18 [History Last Taken 08/25/22] fluoxetine 20 mg capsule 40 mg PO DAILY 12/24/19 [History Last Taken 08/25/22] prazosin 5 mg capsule 5 mg PO DAILY 06/06/21 [History Last Taken 08/25/22] promethazine 25 mg tablet 25 mg PO Q6H PRN PRN nausea 06/06/21 [History Last Taken 2 Days Ago ~08/24/22] magnesium 500 mg tablet 500 mg PO BID 10/10/21 [History Last Taken 08/25/22] vitamin B complex 2 cap PO DAILY 10/10/21 [History Last Taken 08/25/22] dulaglutide 0.75 mg/0.5 mL subcutaneous pen injector (Trulicity) 0.75 mg subcut TU DM 08/26/22 [History Last Taken 08/21/22] gabapentin 300 mg capsule 300 mg PO QHS RESTLESS LEG PAIN 08/26/22 [History Last Taken 08/25/22] hydrocodone-acetaminophen 5-325mg 5mg-325mg 1 tab PO Q6H PRN pain 3 days #8 tabs 08/26/22 [Rx Last Taken Unknown] hydrocodone-acetaminophen 5-325mg 5mg-325mg 1 tab PO Q6H PRN pain 3 days #8 tabs 08/26/22 [Rx Last Taken Unknown] hyoscyamine sulfate 0.125 mg tablet 0.125 mg PO Q4H ANXIETY 08/26/22 [History L ast Taken 08/25/22] sumatriptan succinate 6 mg/0.5 mL subcutaneous pen injector 6 mg subcut Q12H MIGRAINE 08/26/22 [History Last Taken 1 Week Ago ~08/19/22] tizanidine 4 mg capsule 4 mg PO TID PRN Pain 08/26/22 [History Last Taken 2 Days Ago ~08/24/22] tramadol 50 mg tablet 50 mg PO Q6H PRN pain #14 tabs 08/26/22 [Rx Last Taken Unknown] zolpidem 10 mg tablet 10 mg PO QHS PRN Sleep 08/26/22 [History Last Taken 08/25/22] Allergy/AdvReac Type Severity Reaction Status Date / Time furosemide [From Lasix] Allergy Hives Verified 08/26/22 05:15 Iodinated Contrast Media Allergy Hives Verified 08/26/22 05:15 nitrofurantoin Allergy Other Verified 08/26/22 05:15 [From Macrobid] ondansetron [From Zofran] Allergy Hives Verified 08/26/22 05:15 propranolol Allergy Angioedema Verified 08/26/22 05:15 prochlorperazine AdvReac AGITATION Verified 08/26/22 05:15 [From Compazine] AND ANXIOUS Family History Other CVA (cerebral vascular accident) Heart disease Hypertension Thyroid disorder Surgical History H/O oophorectomy H/O tubal ligation History of cholecystectomy Hx of cholecystectomy Social History Smoking Status: Never smoker substance use type: does not use ROS ROS ED Constitutional Constitutional ED: Denies chills or fever(s) ENT ENT ED: Denies sore throat Cardiovascular Cardiovascular: Reports chest pain Respiratory/Chest Respiratory/Chest: Reports cough; Denies dyspnea Gastrointestinal Gastrointestinal: Reports nausea; Denies abdominal pain, diarrhea or vomiting Genitourinary Genitourinary ED: Denies dysuria Musculoskeletal Musculoskeletal: Reports myalgias; Denies back pain Integumentary Reports rash Neurologic Neurologic: Denies headache(s) Hematologic/Lymphatic Hematologic/Lymphatic: Denies easy bleeding or easy bruising EXAM Physical Exam Const Vital Signs: 09/19/22 04:26 09/19/22 05:09 Pulse Rate 107 H 94 Respiratory Rate 11 L 16 Blood Pressure 129/91 H 136/78 H Blood Pressure Mean 103 Pulse Ox 97 97 Oxygen Delivery Method Room Air Positive well nourished, well developed and obese General Appearance ED: well developed Nutritional Appearance: obese HEENT Reports moist mucous membranes HEENT Narrative: No tongue or lip swelling no oral lesions no airway edema or compromise Eyes PERRL and EOMs intact bilaterally Neck supple Neck Narrative: No nuchal rigidity or meningeal signs present Chest Wall Chest Narrative: No crepitance palpated Patient has a scar in place on the left anterior chest wall consistent with recent port placement. Surrounding this there is blanchable erythema that contains small pustule heads that seem to be associated with each hair follicle that branches out towards her neck and down towards her breast. There is no asymmetric warmth. No obvious induration or fluctuance to suggest abscess. No lymphangitic streaking. Patient does state that the rash is pruritic in nature. Resp normal respiratory effort and clear to auscultation bilaterally Cardio regular rate and regular rhythm GI normal to inspection, nondistended, normoactive bowel sounds, non-tender, non- distended and no masses Auscultation: normoactive bowel sounds Palpation: soft Extremity normal to inspection Extremity Narrative: No asymmetric edema no pitting edema negative Homans' sign bilaterally Neuro oriented x3 and CN's II-XII intact bilaterally Sensorium / Orientation: alert Psych Psych Narrative: Patient has a flat affect Skin Skin Narrative: Soft tissue changes to the left chest wall as documented above MDM MDM MDM Narrative Medical decision making narrative: Patient presented to the ER afebrile. She had a recent surgical procedure and there is surrounding erythema however there is no asymmetric warmth and patient reports that the rash is pruritic and he does have small pustule heads associated with each follicle indicating this is most likely allergic in nature. However with concern that could be an infectious process basic blood work was obtained. Labs show no leukocytosis or left shift no lactic acidosis and a normal procalcitonin. Chest x-ray also reveals no underlying lung pathology. I do feel this is most likely an allergic reaction that is a delayed hypersensitivity process most likely related to what ever cleaning solution was placed on her skin prior to the port placement. I offered to call the patient's general surgeon to discuss the case and see if he would prefer antibiotics or transfer to his facility where the port was placed. I also offered to give patient prednisone and Pepcid on top of the Benadryl to help with allergic reaction symptoms. The patient states that she is agitated and annoyed that she has been here so long and does not want to stay in the hospital any further. I discussed with patient that even though her labs and vitals are stable and this rash appears more allergic in nature that my preference would be just discussed the case with her surgeon to ensure he does not want antibiotics provided. She states that she will not wait in the hospital she does not want transferred and she will not follow any advice that the surgeon gives at this time and simply wants to go home. The patient is awake alert and oriented and competent to make this decision and therefore she will be discharged as requested. History & Record Review Discussion w/independent historian: Patient Lab Data Attestation: I reviewed the patient's lab results. Labs: Laboratory Results - last 24 hr 09/19/22 09/19/22 09/19/22 01:43 01:43 02:25 WBC Cancelled Corrected WBC Cancelled RBC Cancelled Hgb Cancelled Hct Cancelled MCV Cancelled MCH Cancelled MCHC Cancelled RDW Std Deviation Cancelled RDW Coeff of Millie Cancelled Plt Count Cancelled MPV Cancelled Immature Gran % (Auto) Cancelled Neut % (Auto) Cancelled Lymph % (Auto) Cancelled [place] % (Auto) Cancelled Eos % (Auto) Cancelled Baso % (Auto) Cancelled Absolute Neuts (auto) Cancelled Absolute Lymphs (auto) Cancelled Total Counted Cancelled Neutrophils % (Manual) Cancelled Band Neutrophils % Cancelled Lymphocytes % (Manual) Cancelled Monocytes % (Manual) Cancelled Eosinophils % (Manual) Cancelled Basophils % (Manual) Cancelled Metamyelocytes % Cancelled Myelocytes % Cancelled Promyelocytes % Cancelled Blast Cells % Cancelled Plasma Cell % (Manual) Cancelled Other Cells % Cancelled Nucleated RBC % Cancelled Nucleated RBCs/100 WBC Cancelled Differential Comment Cancelled Diff Path Review Cancelled Hypersegmented Neuts Cancelled Atypical Lymphocytes Cancelled Reactive Lymphocytes Cancelled Smudge Cells Cancelled Toxic Granulation Cancelled Toxic Vacuolation Cancelled Dohle Bodies Cancelled Sybil Rods Cancelled Platelet Estimate Cancelled Plt Morphology Comment Cancelled RBC Morphology Cancelled Polychromasia Cancelled Hypochromasia Cancelled Poikilocytosis Cancelled Basophilic Stippling Cancelled Anisocytosis Cancelled Microcytosis Cancelled Macrocytosis Cancelled Spherocytes Cancelled Sickle Cells Cancelled Target Cells Cancelled Tear Drop Cells Cancelled Ovalocytes Cancelled Stomatocytes Cancelled [place] Bodies Cancelled [place] Cells Cancelled Bite Cells Cancelled Crenated Cell Cancelled Acanthocytes (Spur) Cancelled Rouleaux Cancelled Schistocytes Cancelled Sodium Cancelled Potassium Cancelled Chloride Cancelled Carbon Dioxide Cancelled Anion Gap Cancelled BUN Cancelled Creatinine Cancelled Estim Creat Clear Calc Cancelled Est GFR (MDRD) Af Amer Cancelled Est GFR (MDRD) Non-Af Cancelled BUN/Creatinine Ratio Cancelled Glucose Cancelled Lactic Acid 1.6 Calcium Cancelled Procalcitonin 09/19/22 09/19/22 09/19/22 03:19 03:19 03:19 WBC 3.8 L Corrected WBC RBC 4.93 Hgb 13.5 Hct 40.5 MCV 82.2 MCH 27.4 MCHC 33.3 RDW Std Deviation 38.2 RDW Coeff of Millie 12.7 Plt Count 168 MPV 8.7 Immature Gran % (Auto) 0.000 Neut % (Auto) 38.1 L Lymph % (Auto) 49.6 H [place] % (Auto) 5.5 Eos % (Auto) 6.3 H Baso % (Auto) 0.5 Absolute Neuts (auto) 1.5 L Absolute Lymphs (auto) 1.89 Total Counted Neutrophils % (Manual) Band Neutrophils % Lymphocytes % (Manual) Monocytes % (Manual) Eosinophils % (Manual) Basophils % (Manual) Metamyelocytes % Myelocytes % Promyelocytes % Blast Cells % Plasma Cell % (Manual) Other Cells % Nucleated RBC % 0 Nucleated RBCs/100 WBC Differential Comment Diff Path Review Hypersegmented Neuts Atypical Lymphocytes Reactive Lymphocytes Smudge Cells Toxic Granulation Toxic Vacuolation Dohle Bodies Sybil Rods Platelet Estimate Plt Morphology Comment RBC Morphology Polychromasia Hypochromasia Poikilocytosis Basophilic Stippling Anisocytosis Microcytosis Macrocytosis Spherocytes Sickle Cells Target Cells Tear Drop Cells Ovalocytes Stomatocytes [place] Bodies [place] Cells Bite Cells Crenated Cell Acanthocytes (Spur) Rouleaux Schistocytes Sodium 136 Potassium 3.7 Chloride 104 Carbon Dioxide 24.0 Anion Gap 8 BUN 12 Creatinine 0.62 Estim Creat Clear Calc 100.12 Est GFR (MDRD) Af Amer 145 Est GFR (MDRD) Non-Af 120 BUN/Creatinine Ratio 19.4 Glucose 205 H Lactic Acid Calcium 8.8 Procalcitonin < 0.04 Radiography Diagnostic Testing: Clinical Impression(s) from Imaging Studies Chest X-Ray 09/19/22 02:06 IMPRESSION: No acute findings in the chest. Electronically Signed: Benito Aden MD at 2:45 EST , Chest x-ray as interpreted by the emergency medicine physician reveals no acute infiltrate pneumothorax or pleural effusion Discharge Plan Triage Chief Complaint: Wound ED Provider: Sreekanth Pierre Dx/Rx/DC Orders Clinical Impression: Allergic reaction, Factor V Leiden Instructions: ED Contact Dermatitis Prescriptions: No Action topiramate 200 MG tablet 200 mg PO BID fluoxetine 20 MG capsule 40 mg PO DAILY prazosin 5 mg capsule 5 mg PO DAILY Label Comments: Take 1 capsule by mouth daily at bedtime. promethazine 25 mg tablet 25 mg PO Q6H PRN PRN (Reason: nausea) magnesium 500 mg Tablet 500 mg PO BID vitamin B complex Capsule 2 cap PO DAILY tizanidine 4 mg capsule 4 mg PO TID PRN (Reason: Pain) Label Comments: TAKE 1 CAPSULE THREE TIMES DAILY NEEDED FOR PAIN hyoscyamine sulfate 0.125 mg tablet 0.125 mg PO Q4H Label Comments: TAKE 1 TABLET BY MOUTH EVERY 4 HOURS NEEDED gabapentin 300 mg capsule 300 mg PO QHS Label Comments: TAKE 1 CAPSULE BY MOUTH EVERY DAY AT BEDTIME zolpidem 10 mg Tablet 10 mg PO QHS PRN (Reason: Sleep) sumatriptan succinate 6 mg/0.5 mL pen injector 6 mg SUBCUT Q12H Label Comments: INJECT 6 (SIX) MG SUBCUTANEOUSLY TWICE DAILY NEEDED FOR HEADACHE Trulicity 0.75 mg/0.5 mL pen injector 0.75 mg SUBCUT TU Label Comments: Inject 0.75 mg subcutaneously one time a week. Inject dose once per week. Discard Pen After hydrocodone-acetaminophen 5-325 mg tablet 1 tab PO Q6H PRN (Reason: pain) 3 Days Qty: 8 0RF Rx Instructions: one or two every 6 H as needed for headache hydrocodone-acetaminophen 5-325 mg tablet 1 tab PO Q6H PRN (Reason: pain) 3 Days Qty: 8 0RF Rx Instructions: 1-2 Q6H prn headache tramadol 50 mg tablet 50 mg PO Q6H PRN (Reason: pain) Qty: 14 0RF Rx Instructions: one or two every six hours as needed for headache Primary Care Provider: Ki Weldon Referrals: Ki Weldon MD [Primary Care Provider] - Activity Restrictions/Additional Instructions: Your history of the chest wall redness and itching along with your negative work-up in the ER indicates this is most likely an allergic reaction and not an acute infection. Please continue with medications such as Pepcid and Benadryl to control itch. Please contact the surgeon to discuss close follow-up and return to the ER should you have any further concerns Disposition Disposition: Home, Self Care Discharge Date/Time: 09/19/22 05:10
--- NOTE | 2022-09-19 05:04 | ED.RN ---
On d/c, pt requested more Benadryl. Pt stated that her port site still was itching. Dr. Pierre notified, no new orders at this time. Pt also was given education on pepcid and solu-medrol and the importance. Pt still refusing these medications. Pt IV removed and pt d/c.
[2022-09-19 05:09] VITALS: BP 136/78; PULSE 94; RESP 16; O2SAT 97
== END 2022-09-19 05:10 | disposition home or self-care (01) ==
PROVIDERS: Emergency Provider Emergency Medicine; PCP Family Medicine; Visit Provider Emergency Medicine
DX: T78.49XA Other allergy, initial encounter (principal); D68.2 Hereditary deficiency of other clotting factors; E11.9 Type 2 diabetes mellitus without complications; R51.9 Headache, unspecified; E66.9 Obesity, unspecified; X58.XXXA Exposure to other specified factors, initial encounter
CPT/HCPCS: 36415; 71045; 80048; 83605; 84145; 85025; 87040; 96361; 96374; 96375; 99284; J7030; A4216; J3490

== ENCOUNTER 2023-01-12 12:23 | Outpatient (REF) | payer SELFPAY ==
[2023-01-12 12:24] VITALS: BP 161/97; PULSE 103; RESP 18; TEMP 36.4; O2SAT 99; BMI 40.4
--- NOTE | 2023-01-12 12:30 | ED.RN ---
PT SUICIDAL, BROUGHT IN FROM [facility] BY POLICE. CURRENTLY IN [employer], WEARING HANDCUFFS AND SHACKLES.
--- NOTE | 2023-01-12 12:36 | EKG12_ITS ---
Test Reason : CP Blood Pressure : / mmHG Vent. Rate : 106 BPM Atrial Rate : 106 BPM P-R Int : 172 ms QRS Dur : 088 ms QT Int : 324 ms P-R-T Axes : 045 029 058 degrees QTc Int : 430 ms Sinus tachycardia with Premature atrial complexes with Aberrant conduction Possible Left atrial enlargement Nonspecific ST and T wave abnormality Abnormal ECG Confirmed by CLEO HOLLIS, ROSE ([id number]), scientific editor ADRIANNA DOZIER ([id number]) on 01/14/2023 12:35:50 PM Referred By: FRANCESCO Confirmed By:ROSE GALLO MD
--- NOTE | 2023-01-12 12:36 | RAD_ITS ---
EXAM: XR CHEST, 1 VIEW CLINICAL INDICATION: cough TECHNIQUE: Frontal view of the chest. COMPARISON: XR Chest dated 09/19/2022 FINDINGS: LUNGS AND PLEURAL SPACES: Normal. No consolidation or edema. No pneumothorax. No effusion. HEART: Normal heart size. MEDIASTINUM: No mediastinal or hilar mass. BONES/JOINTS: No acute abnormality. TUBES, LINES AND DEVICES: Interval removal of the left subclavian central venous catheter. Loop recorder in place. RAD/Chest 1 View (Portable) IMPRESSION: No acute cardiopulmonary abnormality. Electronically Signed: Alex York MD at 14:40 EDT ,
--- NOTE | 2023-01-12 12:39 | EDS_ITS ---
<Statement entered by Soraya Up MD - 01/12/23 17:38> Pt seen & evaluated w/RAMIREZ. I personally interviewed & exam the pt. I was involved in all aspects of pt's orders, interpretation of results & treatment Patient presents with intermittent chest pain for the past several days. She has also been evaluated at the senior care and needs medical clearance for [facility] placement. Patient sitting upright in bed no acute distress. Officers at bedside. Head and neck examination is unremarkable. Heart is regular rhythm with mild tachycardia. Lung sounds are clear bilaterally. She is not tachypneic. Abdomen is soft and nontender. Lower extremity examination reveals no obvious edema. Strong distal pulses are noted. No palpable cords. EKG is sinus tach with no evidence of acute ischemia. Chest x-ray per my interpretation reveals no focal infiltrate. Radiology interpretation is reviewed and agrees. CBC and chemistry studies are largely unremarkable. Troponin is negative. At this time patient be discharged back to the senior care and is medically cleared for placement at [facility]. She will be observed at the senior care until a bed is available. HPI History of Present Illness Chief Complaint: Chest Pain Narrative Narrative: Patient is a 32-year-old female with history of factor V Leiden, anxiety, PTSD, history of TIAs, migraines who presents to the emergency department from senior care. Patient over the last 3 to 4 days has been having more palpitations, chest pain under both ribs. Patient also needs clearance for [facility]. Patient at this time denies any suicidal homicidal ideations. Patient denies any shortness of breath. She denies any diaphoresis. She denies any recent trips. Recent surgeries. [facility] Medical History Anxiety Chest pain Depression Diabetes DVT (deep venous thrombosis) Factor V Leiden Head injury Kidney stones Ovarian cyst PCOS (polycystic ovarian syndrome) Prolonged QT interval PTSD (post-traumatic stress disorder) Pulmonary embolism TIA (transient ischemic attack) Home Medications topiramate 200 mg tablet 200 mg PO BID 09/10/18 [History Last Taken 08/25/22] fluoxetine 20 mg capsule 40 mg PO DAILY 12/24/19 [History Last Taken 08/25/22] prazosin 5 mg capsule 5 mg PO DAILY 06/06/21 [History Last Taken 08/25/22] promethazine 25 mg tablet 25 mg PO Q6H PRN PRN nausea 06/06/21 [History Last Taken 2 Days Ago ~08/24/22] magnesium 500 mg tablet 500 mg PO BID 10/10/21 [History Last Taken 08/25/22] vitamin B complex 2 cap PO DAILY 10/10/21 [History Last Taken 08/25/22] dulaglutide 0.75 mg/0.5 mL subcutaneous pen injector (Trulicity) 0.75 mg subcut TU DM 08/26/22 [History Last Taken 08/21/22] gabapentin 300 mg capsule 300 mg PO QHS RESTLESS LEG PAIN 08/26/22 [History Last Taken 08/25/22] hydrocodone-acetaminophen 5-325mg 5mg-325mg 1 tab PO Q6H PRN pain 3 days #8 tabs 08/26/22 [Rx Last Taken Unknown] hydrocodone-acetaminophen 5-325mg 5mg-325mg 1 tab PO Q6H PRN pain 3 days #8 tabs 08/26/22 [Rx Last Taken Unknown] hyoscyamine sulfate 0.125 mg tablet 0.125 mg PO Q4H ANXIETY 08/26/22 [History Last Taken 08/25/22] sumatriptan succinate 6 mg/0.5 mL subcutaneous pen injector 6 mg subcut Q12H MIGRAINE 08/26/22 [History Last Taken 1 Week Ago ~08/19/22] tizanidine 4 mg capsule 4 mg PO TID PRN Pain 08/26/22 [History Last Taken 2 Days Ago ~08/24/22] tramadol 50 mg tablet 50 mg PO Q6H PRN pain #14 tabs 08/26/22 [Rx Last Taken Unknown] zolpidem 10 mg tablet 10 mg PO QHS PRN Sleep 08/26/22 [History Last Taken 08/25/22] Allergy/AdvReac Type Severity Reaction Status Date / Time furosemide [From Lasix] Allergy Hives Verified 01/12/23 12:26 Iodinated Contrast Media Allergy Hives Verified 01/12/23 12:26 nitrofurantoin Allergy Other Verified 01/12/23 12:26 [From Macrobid] ondansetron [From Zofran] Allergy Hives Verified 01/12/23 12:26 propranolol Allergy Angioedema Verified 01/12/23 12:26 prochlorperazine AdvReac AGITATION Verified 01/12/23 12:26 [From Compazine] AND ANXIOUS Family History Other CVA (cerebral vascular accident) Heart disease Hypertension Thyroid disorder Surgical History H/O oophorectomy H/O tubal ligation History of cholecystectomy Hx of cholecystectomy Social History Smoking Status: Never smoker substance use type: does not use ROS ROS ED ROS Narrative Constitutional: Negative for fever, chills, weight loss, weakness Eyes: Negative for vision loss, vision change, double vision ENT: Negative for any sore throat, ear pain, congestion Cardiovascular: Positive for any chest pain, tightness, palpitations Respiratory: Negative for any cough, sputum production, hemoptysis, dyspnea, dyspnea on exertion, orthopnea Gastrointestinal: Negative for any abdominal pain, nausea, vomiting, diarrhea, constipation, blood in stool, blood in vomit : Negative for any urinary frequency, dysuria, retention, blood in urine Muscle skeletal: Negative for any muscle joint pain, stiffness, myalgias, arthralgias, neck pain, back pain Neurological: Negative for any headache, syncope, numbness or tingling, dizziness Skin: Negative for any rashes, lumps, itching, abrasions, lacerations Psychiatric: Negative for any depression, anxiety, stress, suicidal ideation, homicidal ideation Hematologic: Negative for any easy bruising, excessive bruising, easy bleeding Allergies: Negative for any eczema, hives, rash EXAM Physical Exam Narrative Exam Narrative: Vital signs reviewed. HEET: Head normocephalic atraumatic, TMs clear bilaterally. Posterior pharynx is clear, moist mucous membranes. Nares clear bilaterally. Neck: Supple with no lymphadenopathy or tenderness. No signs of meningismus, negative jolt sign. Cardiac: Tachycardic rate, regular rhythm no murmurs gallops or rubs, equal peripheral pulses bilaterally. Respiratory: Lungs clear to auscultation bilaterally. No chest tenderness. Abdomen: Soft, nontender, nondistended. No abdominal bruit or pulsatile masses. No hepatosplenomegaly Extremities: No peripheral edema, no signs of gross trauma or deformity. Active full range of motion of all extremities. Neuro: Cranial nerves II through XII intact, no focal neurological deficits. Skin: Clean dry and intact with no rash, purpura, petechiae, vesicles or pustules. Backs/flank: No CVA tenderness, no midline spinal tenderness, no deformity. Psych: Normal mood and affect. No SI, HI or acute psychosis. Const Vital Signs: 01/12/23 12:24 01/12/23 13:44 01/12/23 14:22 Temperature 97.5 F L Temperature Source Temporal Pulse Rate 103 H 108 H 107 H Respiratory Rate 18 16 20 H Blood Pressure 161/97 H 118/86 H 111/78 Blood Pressure Mean 118 96 89 Pulse Ox 99 98 98 Oxygen Delivery Method Room Air Room Air Room Air [facility] MDM Lab Data Labs: Laboratory Results - last 24 hr 01/12/23 01/12/23 01/12/23 13:34 13:42 14:07 WBC 5.8 RBC 4.29 Hgb 11.7 L Hct 35.0 L MCV 81.6 MCH 27.3 MCHC 33.4 RDW Std Deviation 37.1 RDW Coeff of Millie 12.6 Plt Count TNP Immature Gran % (Auto) 0.200 Neut % (Auto) 68.3 Lymph % (Auto) 24.8 [place] % (Auto) 6.1 Eos % (Auto) 0.3 Baso % (Auto) 0.3 Absolute Neuts (auto) 3.9 Absolute Lymphs (auto) 1.43 Nucleated RBC % 0 Differential Comment SCANNED Platelet Estimate ADEQUATE Sodium 135 L Potassium 3.9 Chloride 103 Carbon Dioxide 25.0 Anion Gap 7 BUN 11 Creatinine 0.63 Estim Creat Clear Calc 98.53 Est GFR (MDRD) Af Amer 141 Est GFR (MDRD) Non-Af 117 BUN/Creatinine Ratio 17.4 Glucose 149 H Calcium 9.8 Total Bilirubin 0.40 AST 13 L ALT 25 Alkaline Phosphatase 83 Troponin I High Sens < 3 L Total Protein 6.9 Albumin 3.3 Globulin 3.6 Albumin/Globulin Ratio 0.9 Serum , Qual NEGATIVE Urine Opiates Screen NEGATIVE Urine Methadone Screen NEGATIVE Ur Barbiturates Screen POSITIVE H Ur Phencyclidine Scrn NEGATIVE Ur Amphetamines Screen NEGATIVE MDMA (Ecstasy) Screen NEGATIVE U Benzodiazepines Scrn NEGATIVE Urine Cocaine Screen NEGATIVE U Cannabinoids Screen NEGATIVE Ur Drug Screen Comment Ethyl Alcohol < 3.0 Radiography Diagnostic Testing: Clinical Impression(s) from Imaging Studies Chest X-Ray 01/12/23 12:36 IMPRESSION: No acute cardiopulmonary abnormality. Electronically Signed: Alex York MD at 14:40 EDT , EKG Sinus tachycardia: Attestation: I personally reviewed and interpreted this EKG as follows: Comments: Sinus tachycardia, rate 106 bpm, DC 172 ms, QRS duration 88 ms, no acute ST elevation, no acute infarct. Treatment and Re-Evaluation :: Patient appears to be in no distress, patient's vital signs are stable, patient presents to the emergency department from senior care for heart palpitations, chest pain is been ongoing for the last 3 to 4 days. Patient is also here to get clearance to [facility]. Patient will receive laboratory values, as well as a urine drug screen, COVID-19, chest x-ray. Patient appears generally well, patient remained stable. Patient presents to the emergency department from senior care for shortness of breath, chest pain. Patient's laboratory studies show a normal CBC, patient's chemistries were unremarkable, patient's troponin was negative. There is no evidence of any ACS, MT, EKG was unremarkable. Patient's talk screen shows no alcohol, positive for barbiturates. Patient received 1 L normal saline, oral Phenergan. Patient's COVID-19 was negative. At this time, is no evidence of any acute cardiopulmonary process. No evidence of any pneumonia. All labs can be transferred to the senior care so the patient can be accepted to [facility]. Patient is agreeable with the plan. Patient stable to return to senior care. Discharge Plan Triage Chief Complaint: Chest Pain ED Midlevel Provider: Catrachito Fine ED Provider: Soraya Up Dx/Rx/DC Orders Clinical Impression: Palpitation, Chest pain Instructions: ED Chest Pain, Noncardiac, ED Palpitations Prescriptions: No Action topiramate 200 MG tablet 200 mg PO BID fluoxetine 20 MG capsule 40 mg PO DAILY prazosin 5 mg capsule 5 mg PO DAILY Patient Comments: Take 1 capsule by mouth daily at bedtime. promethazine 25 mg tablet 25 mg PO Q6H PRN PRN (Reason: nausea) magnesium 500 mg Tablet 500 mg PO BID vitamin B complex Capsule 2 cap PO DAILY tizanidine 4 mg capsule 4 mg PO TID PRN (Reason: Pain) Patient Comments: TAKE 1 CAPSULE THREE TIMES DAILY NEEDED FOR PAIN hyoscyamine sulfate 0.125 mg tablet 0.125 mg PO Q4H Patient Comments: TAKE 1 TABLET BY MOUTH EVERY 4 HOURS NEEDED gabapentin 300 mg capsule 300 mg PO QHS Patient Comments: TAKE 1 CAPSULE BY MOUTH EVERY DAY AT BEDTIME zolpidem 10 mg Tablet 10 mg PO QHS PRN (Reason: Sleep) sumatriptan succinate 6 mg/0.5 mL pen injector 6 mg SUBCUT Q12H Patient Comments: INJECT 6 (SIX) MG SUBCUTANEOUSLY TWICE DAILY NEEDED FOR HEADACHE Trulicity 0.75 mg/0.5 mL pen injector 0.75 mg SUBCUT TU Patient Comments: Inject 0.75 mg subcutaneously one time a week. Inject dose once per week. Discard Pen After hydrocodone-acetaminophen 5-325 mg tablet 1 tab PO Q6H PRN (Reason: pain) 3 Days Qty: 8 0RF Rx Instructions: one or two every 6 H as needed for headache hydrocodone-acetaminophen 5-325 mg tablet 1 tab PO Q6H PRN (Reason: pain) 3 Days Qty: 8 0RF Rx Instructions: 1-2 Q6H prn headache tramadol 50 mg tablet 50 mg PO Q6H PRN (Reason: pain) Qty: 14 0RF Rx Instructions: one or two every six hours as needed for headache Primary Care Provider: Ki Weldon Referrals: Ki Weldon MD [Primary Care Provider] - Activity Restrictions/Additional Instructions: Please continue your medication regimen Disposition Disposition: Home, Self Care
[2023-01-12 13:44] VITALS: BP 118/86; PULSE 108; RESP 16; O2SAT 98
[2023-01-12 13:51] LABS: Absolute Lymphocyte Count 1.43 X10^3/uL (0.83-4.51); Absolute Neutrophil Count 3.9 X10^3/uL (2.0-7.7); Basophil# 0.02 X10^3/uL; Basophil% 0.3 % (0-1); Eosinophil# 0.02 X10^3/uL; Eosinophils% 0.3 % (0-5); Hemoglobin 11.7 g/dL (12.0-15.0); Lymphocyte # 1.43 X10^3/ul (0.83-4.51); Lymphocyte % 24.8 % (19-41); Mean Corp Hgb Conc 33.4 g/dL (32-36); Mean Corpuscular Hgb 27.3 pg (27.0-32.0); Mean Corpuscular Volume 81.6 fL (81-99); Monocyte# 0.35 X10^3/uL; Monocyte% 6.1 % (0-10); NRBC Flagged by Analyzer 0 % (0-5); Neutrophil # 3.94 X10^3/uL (2.7-7.7); Neutrophil % 68.3 % (47-70); POSITIVE COUNT YES; RBC Distribution Width CV 12.6 % (11.6-14.6); RBC Distribution Width SD 37.1 fl (35.1-43.9); Red Blood Count 4.29 M/mm3 (4.2-5.4); White Blood Count 5.8 K/mm3 (4.4-11.0)
[2023-01-12 14:11] LABS: Internal QC Validated? YES +Cl - CLEAR BKGD; Pregnancy, Serum, hCG Quali. NEGATIVE Negative
[2023-01-12 14:14] LABS: Differential Indicated SCAN CRITERIA MET
[2023-01-12 14:15] LABS: Differential Comment SCANNED; Platelet Estimate ADEQUATE (ADEQ)
[2023-01-12 14:20] LABS: ALB/GLOB Ratio 0.9 RATIO (0.9-2.4); AST(SGOT) 13 U/L (15-37); Alanine Aminotransfer ALT/SGPT 25 U/L (13-56); Albumin, Serum 3.3 g/dL (3.2-5.0); Alkaline Phosphatase 83 U/L (45-117); Anion Gap 7 (5-15); BUN 11 mg/dL (7-18); BUN/Creat Ratio 17.4 RATIO (10-20); Calcium,Total 9.8 mg/dL (8.5-10.1); Chloride 103 mmol/L (98-107); Creatinine, Serum 0.63 mg/dL (0.55-1.02); EST Glomerular Filtration Rate 117 mL/min (>60); Est Glom Filt Rate - Afr Amer 141 mL/min (>60); Estimated Creatinine Clearance 98.53 ml/min; Globulin 3.6 g/dL (2.2-4.2); Glucose 149 mg/dL (74-106); Potassium 3.9 mmol/L (3.5-5.1); Protein, Total 6.9 g/dL (6.4-8.2); Sodium Level 135 mmol/L (136-145); Troponin-I HS < 3 pg/mL (3.0-54.0)
[2023-01-12] MEDS: 0.9% Normal Saline 1,000 ML 1000 ML IV (14:20)
[2023-01-12] MEDS: proMETHazine 25 MG Tablet PO (14:20)
[2023-01-12 14:22] VITALS: BP 111/78; PULSE 107; RESP 20; O2SAT 98
[2023-01-12 14:29] LABS: Alcohol, Blood (Medical)-Serum < 3.0 mg/dL
[2023-01-12 14:37] LABS: Amphetamine Urine VISTA NEGATIVE (<1000 ng/mL); Barbiturate Urine VISTA POSITIVE (< 200 ng/mL); Benzodiazepine Urine VISTA NEGATIVE (< 200 ng/mL); Cocaine Urine VISTA NEGATIVE (< 300 ng/mL); Ecstacy Urine VISTA NEGATIVE (< 500 ng/mL); Methadone Urine VISTA NEGATIVE (< 300 ng/mL); PCP Urine VISTA NEGATIVE (< 25 ng/mL); THC Urine VISTA NEGATIVE (< 50 ng/mL); Vista UDS pH Range 7
--- NOTE | 2023-01-12 15:16 | NURSING ---
FAXED CHART TO [facility]
== END 2023-01-12 15:17 | disposition home or self-care (01) ==
LOC: ED 12:23
PROVIDERS: Nurse Practitioner; PCP Family Medicine; Visit Provider Emergency Medicine
DX: R07.9 Chest pain, unspecified (principal); E11.9 Type 2 diabetes mellitus without complications; F41.9 Anxiety disorder, unspecified; R00.2 Palpitations; Z86.73 Personal history of transient ischemic attack (TIA), and cerebral infarction without residual deficits
CPT/HCPCS: 36415; 71045; 80053; 80307; 80320; 84484; 84703; 85025; 87811; 93005; A4216; J7030; 82077

== ENCOUNTER 2023-11-01 14:57 | Emergency (ER) | payer MEDICAID, SELFPAY ==
[2023-11-01 15:01] VITALS: BP 136/82; PULSE 129; RESP 22; TEMP 36.4; O2SAT 98
--- NOTE | 2023-11-01 15:06 | EKG12_ITS ---
Test Reason : cp Blood Pressure : / mmHG Vent. Rate : 120 BPM Atrial Rate : 120 BPM P-R Int : 168 ms QRS Dur : 090 ms QT Int : 218 ms P-R-T Axes : 044 045 024 degrees QTc Int : 308 ms Sinus tachycardia Nonspecific T wave abnormality Abnormal ECG Confirmed by Rajat Lawson ([id number]), science editor ADRIANNA DOZIER ([id number]) on 11/04/2023 2:19:50 PM Referred By: Confirmed By:Rajat Lawson
--- NOTE | 2023-11-01 16:00 | RAD_ITS ---
INDICATION: chest pain EXAMINATION/TECHNIQUE: X-RAY - XR Chest 1 View COMPARISON: January 12, 2023 FINDINGS: LINES/DEVICES: There is a loop recorder projecting over the left hemithorax. LUNGS: No consolidation, edema or effusion. No pneumothorax. MEDIASTINUM AND CARDIOVASCULAR STRUCTURES: Cardiac silhouette not enlarged. Central airways and mediastinal contour are unremarkable. BONES AND SOFT TISSUES: Unremarkable. RAD/Chest 1 View (Portable) IMPRESSION: No radiographic evidence of acute cardiopulmonary disease. Electronically Signed: Mable Barnett MD at 16:12 EDT ,
--- NOTE | 2023-11-01 16:10 | CT_ITS ---
STUDY: CTA CHEST REASON FOR EXAM: Female, 33 years old. pulmonary embolism RADIATION DOSAGE (If Supplied By Facility): CTDIvol = ( 16.69 ) mGy, DLP = ( 433.94 ) mGycm TECHNIQUE: The examination was performed with the intravenous administration of IV 100mL [id number]-[id number]. Post-processing of the angiographic images was performed, with multiplanar reformation and 3D reconstruction. Individualized dose optimization techniques were used for this CT. COMPARISON: AP portable chest November 01, 2023 4:00 PM FINDINGS: Examination of the pulmonary arteries is technically limited due to suboptimal bolus timing Normal enhancement of the main pulmonary artery and right and left pulmonary arteries. Normal enhancement of the bilateral peripheral pulmonary arteries. There are linear defects noted within the subsegmental branches bilaterally likely representing artifact due to respiratory motion.. There is no definitive evidence for pulmonary embolus however would recommend Doppler study of the venous system of lower extremities for further evaluation if indicated Normal thoracic aorta and visualized great vessels. There is no demonstrated aortic dissection. Normal heart and pericardium. Normal mediastinum. Normal hilar regions. Normal visualized trachea and bronchi. The lungs are well expanded. There are moderate-sized pleural effusions in association with interstitial thickening and groundglass opacity in the dependent portion of the lungs likely representing pulmonary interstitial edema Normal chest wall structures. Normal osseous structures. Normal visualized upper abdomen. CT/CTA Chest W/WO Contrast IMPRESSION: Moderate-sized bilateral pleural effusions with probable nonspecific pulmonary edema within the dependent portion of the lungs Less than optimal examination for pulmonary emboli due to suboptimal bolus timing as well as respiratory motion artifact.. If strong clinical suspicion for pulmonary embolus.] Doppler study of the deep venous system of lower extremities recommended Electronically Signed: Allan Suazo MD at 18:26 EDT ,
--- NOTE | 2023-11-01 16:12 | EDS_ITS ---
HPI History of Present Illness Chief Complaint: Chest Other Informant: patient Narrative Narrative: 33-year-old female presenting to the emergency room with out of concern for pulmonary embolism. Patient states that this afternoon she abruptly became nauseous felt like she was developing some chest tightness and then developed a crushing like chest pain. She states that she just did not feel right and was worried that she could be having a pulmonary embolism. The patient has had a prior pulmonary emboli in the fat past felt secondary to factor V Leiden and she is not currently on anticoagulants. [facility] Medical History Anxiety Chest pain Depression Diabetes DVT (deep venous thrombosis) Factor V Leiden Head injury Kidney stones Ovarian cyst PCOS (polycystic ovarian syndrome) Prolonged QT interval PTSD (post-traumatic stress disorder) Pulmonary embolism TIA (transient ischemic attack) Home Medications topiramate 200 mg tablet 200 mg PO BID 09/10/18 [History Last Taken 08/25/22] fluoxetine 20 mg capsule 40 mg PO DAILY 12/24/19 [History Last Taken 08/25/22] prazosin 5 mg capsule 5 mg PO DAILY 06/06/21 [History Last Taken 08/25/22] promethazine 25 mg tablet 25 mg PO Q6H PRN PRN nausea 06/06/21 [History Last Taken 2 Days Ago ~08/24/22] magnesium 500 mg tablet 500 mg PO BID 10/10/21 [History Last Taken 08/25/22] vitamin B complex 2 cap PO DAILY 10/10/21 [History Last Taken 08/25/22] dulaglutide 0.75 mg/0.5 mL subcutaneous pen injector (Trulicity) 0.75 mg subcut TU DM 08/26/22 [History Last Taken 08/21/22] gabapentin 300 mg capsule 300 mg PO QHS RESTLESS LEG PAIN 08/26/22 [History Last Taken 08/25/22] hydrocodone-acetaminophen 5-325mg 5mg-325mg 1 tab PO Q6H PRN pain 3 days #8 tabs 08/26/22 [Rx Last Taken Unknown] hydrocodone-acetaminophen 5-325mg 5mg-325mg 1 tab PO Q6H PRN pain 3 days #8 tabs 08/26/22 [Rx Last Taken Unknown] hyoscyamine sulfate 0.125 mg tablet 0.125 mg PO Q4H ANXIETY 08/26/22 [History Last Taken 08/25/22] sumatriptan succinate 6 mg/0.5 mL subcutaneous pen injector 6 mg subcut Q12H MIGRAINE 08/26/22 [History Last Taken 1 Week Ago ~08/19/22] tizanidine 4 mg capsule 4 mg PO TID PRN Pain 08/26/22 [History Last Taken 2 Days Ago ~08/24/22] tramadol 50 mg tablet 50 mg PO Q6H PRN pain #14 tabs 08/26/22 [Rx Last Taken Unknown] zolpidem 10 mg tablet 10 mg PO QHS PRN Sleep 08/26/22 [History Last Taken 08/25/22] Allergy/AdvReac Type Severity Reaction Status Date / Time haloperidol Allergy Hives Verified 11/01/23 15:01 Iodinated Contrast Media Allergy Hives Verified 11/01/23 15:00 nitrofurantoin Allergy Other Verified 11/01/23 15:00 [From Macrobid] ondansetron [From Zofran] Allergy Hives Verified 11/01/23 15:00 propranolol Allergy Angioedema Verified 11/01/23 15:00 prochlorperazine AdvReac AGITATION Verified 11/01/23 15:00 [From Compazine] AND ANXIOUS Family History Other CVA (cerebral vascular accident) Heart disease Hypertension Thyroid disorder Surgical History H/O oophorectomy H/O tubal ligation History of cholecystectomy Hx of cholecystectomy Social History Smoking Status: Never smoker substance use type: does not use ROS ROS ED Constitutional Constitutional ED: Reports chills; Denies fever(s) or weight loss Eyes Eyes: Denies change in vision or diplopia ENT ENT ED: Denies ear pain, rhinorrhea or sore throat Cardiovascular Cardiovascular: Reports chest pain; Denies orthopnea, palpitations or racing heartbeat Respiratory/Chest Respiratory/Chest: Reports dyspnea; Denies cough or orthopnea Gastrointestinal Gastrointestinal: Reports nausea; Denies abdominal pain, diarrhea or vomiting Genitourinary Genitourinary ED: Denies dysuria, hematuria or urinary frequency Musculoskeletal Musculoskeletal: Denies arthralgias or myalgias Integumentary Denies abscess or rash Neurologic Neurologic: Denies headache(s) or weakness Psychiatric Psychiatric: Denies anxiety, depression, suicidal ideation or suicidal thoughts Endocrine Endocrinology: Denies polydipsia, polyphagia or polyuria Allergic/Immunologic Allergic/Immunologic ED: Denies mouth swelling, tongue swelling or urticaria EXAM Physical Exam Const Vital Signs: 11/01/23 15:01 11/01/23 15:06 11/01/23 15:06 Temperature 97.6 F L Temperature Source Temporal Pulse Rate 129 H Respiratory Rate 22 H Respiratory Effort Normal Non-Labored Blood Pressure 136/82 H Blood Pressure Mean 100 Pulse Ox 98 Oxygen Delivery Method Room Air 11/01/23 18:18 11/01/23 19:32 Temperature 97.3 F L Temperature Source Pulse Rate 105 H 98 Respiratory Rate 16 20 H Respiratory Effort Blood Pressure 114/81 H 115/80 Blood Pressure Mean 92 91 Pulse Ox 97 95 Oxygen Delivery Method Room Air Positive well nourished and well developed General Appearance ED: well developed HEENT Reports normocephalic, head/scalp atraumatic and moist mucous membranes Eyes PERRL and EOMs intact bilaterally Neck no lymphadenopathy, supple and no JVD Resp normal respiratory effort and clear to auscultation bilaterally Cardio regular rate, regular rhythm and no murmurs Rate: tachycardic GI normal to inspection, nondistended, normoactive bowel sounds and non-tender Palpation: soft Back/Spine no CVA tenderness and normal ROM Extremity normal to inspection General Extremety ED: Negative for edema General Extremity: Negative for edema Neuro oriented x3 and CN's II-XII intact bilaterally Sensorium / Orientation: alert Motor Exam: strength 5/5 throughout Psych mental status grossly normal Mood & Affect: Negative for depressed or tearful Skin no rashes or lesions noted and no wounds MDM MDM MDM Narrative Medical decision making narrative: White count 6.2 hemoglobin 12.2 platelet count is 244. Troponin 2 sets are negative BNP 2.5 glucose 137 creatinine 0.84. My independent interpretation of the single view chest x-ray is no acute process. Prehospital EKG is a sinus rhythm with a ventricular rate of about 130 EKG in the department is sinus tachycardia with a rate of 120. She has been as low as in the 90s at times. She has been typically resting around 100-110. Because of the patient's symptomology and her history a CTA of the chest was ordered. She need to be pretreated due to hives with prior CT imaging. This demonstrates bilateral pleural effusions. She has had a left pleural effusion in the past on CT imaging of undetermined significance. Unfortunately there is suboptimal timing to fully rule out pulmonary embolism based on the radiologist read. Patient informed nursing that if she was not being admitted she would need to be discharged because she has a ride coming. Could ultrasound her legs to see if there is DVT there that would still not fully rule out PE. However her troponins are negative. She is not hypoxic. Chest pain is not sharp or stabbing is not worse with breathing seems to be centrally located. Patient left the department before I could get back to the room and go over everything with her. History & Record Review Discussion w/independent historian: Patient Lab Data Attestation: I reviewed the patient's lab results. Labs: Laboratory Results - last 24 hr 11/01/23 11/01/23 11/01/23 15:45 16:33 18:04 WBC 6.2 RBC 4.36 Hgb 12.2 Hct 37.2 MCV 85.3 MCH 28.0 MCHC 32.8 RDW Std Deviation 39.6 RDW Coeff of Millie 12.9 Plt Count 244 MPV 9.6 Immature Gran % (Auto) 0.200 Neut % (Auto) 59.2 Lymph % (Auto) 32.7 [place] % (Auto) 4.4 Eos % (Auto) 2.7 Baso % (Auto) 0.8 Absolute Neuts (auto) 3.7 Absolute Lymphs (auto) 2.03 Nucleated RBC % 0 Sodium 136 Potassium 4.3 Chloride 104 Carbon Dioxide 24.0 Anion Gap 8 BUN 13 Creatinine 0.84 Est GFR (MDRD) Af Amer 101 Est GFR (MDRD) Non-Af 84 BUN/Creatinine Ratio 15.5 Glucose 137 H Calcium 9.9 Troponin I High Sens < 3 L < 3 L B-Natriuretic Peptide 2.5 Radiography Diagnostic Testing: Clinical Impression(s) from Imaging Studies Chest X-Ray 11/01/23 16:00 IMPRESSION: No radiographic evidence of acute cardiopulmonary disease. Electronically Signed: Mable Barnett MD at 16:12 EDT , Chest CTA 11/01/23 16:10 IMPRESSION: Moderate-sized bilateral pleural effusions with probable nonspecific pulmonary edema within the dependent portion of the lungs Less than optimal examination for pulmonary emboli due to suboptimal bolus timing as well as respiratory motion artifact.. If strong clinical suspicion for pulmonary embolus.] Doppler study of the deep venous system of lower extremities recommended Electronically Signed: Allan Suazo MD at 18:26 EDT , EKG Initial EKG: Attestation: I personally reviewed and interpreted this EKG as follows: Comments: Sinus tachycardia ventricular rate of 120 bpm Discharge Plan Triage Chief Complaint: Chest Other ED Provider: Jose Holder Dx/Rx/DC Orders Clinical Impression: Factor V Leiden, Pleural effusion, Chest pain Instructions: ED Chest Pain, Uncertain Cause, ED Pleural Effusion Prescriptions: No Action topiramate 200 MG tablet 200 mg PO BID fluoxetine 20 MG capsule 40 mg PO DAILY prazosin 5 mg capsule 5 mg PO DAILY Patient Comments: Take 1 capsule by mouth daily at bedtime. promethazine 25 mg tablet 25 mg PO Q6H PRN PRN (Reason: nausea) magnesium 500 mg Tablet 500 mg PO BID vitamin B complex Capsule 2 cap PO DAILY tizanidine 4 mg capsule 4 mg PO TID PRN (Reason: Pain) Patient Comments: TAKE 1 CAPSULE THREE TIMES DAILY NEEDED FOR PAIN hyoscyamine sulfate 0.125 mg tablet 0.125 mg PO Q4H Patient Comments: TAKE 1 TABLET BY MOUTH EVERY 4 HOURS NEEDED gabapentin 300 mg capsule 300 mg PO QHS Patient Comments: TAKE 1 CAPSULE BY MOUTH EVERY DAY AT BEDTIME zolpidem 10 mg Tablet 10 mg PO QHS PRN (Reason: Sleep) sumatriptan succinate 6 mg/0.5 mL pen injector 6 mg SUBCUT Q12H Patient Comments: INJECT 6 (SIX) MG SUBCUTANEOUSLY TWICE DAILY NEEDED FOR HEADACHE Trulicity 0.75 mg/0.5 mL pen injector 0.75 mg SUBCUT TU Patient Comments: Inject 0.75 mg subcutaneously one time a week. Inject dose once per week. Discard Pen After hydrocodone-acetaminophen 5-325 mg tablet 1 tab PO Q6H PRN (Reason: pain) 3 Days Qty: 8 0RF Rx Instructions: one or two every 6 H as needed for headache hydrocodone-acetaminophen 5-325 mg tablet 1 tab PO Q6H PRN (Reason: pain) 3 Days Qty: 8 0RF Rx Instructions: 1-2 Q6H prn headache tramadol 50 mg tablet 50 mg PO Q6H PRN (Reason: pain) Qty: 14 0RF Rx Instructions: one or two every six hours as needed for headache Primary Care Provider: Ki Weldon Referrals: Ki Weldon MD [Primary Care Provider] - As soon as possible Disposition Disposition: Home, Self Care Discharge Date/Time: 11/01/23 19:39
[2023-11-01 16:50] LABS: Absolute Lymphocyte Count 2.03 X10^3/uL (0.83-4.51); Absolute Neutrophil Count 3.7 X10^3/uL (2.0-7.7); Basophil# 0.05 X10^3/uL; Basophil% 0.8 % (0-1); Eosinophil# 0.17 X10^3/uL; Eosinophils% 2.7 % (0-5); Hematocrit 37.2 % (37-47); Hemoglobin 12.2 g/dL (12.0-15.0); Lymphocyte # 2.03 X10^3/ul (0.83-4.51); Lymphocyte % 32.7 % (19-41); Mean Corp Hgb Conc 32.8 g/dL (32-36); Mean Corpuscular Volume 85.3 fL (81-99); Mean Platelet Vol. 9.6 fl (6.2-12.0); Monocyte# 0.27 X10^3/uL; Monocyte% 4.4 % (0-10); NRBC Flagged by Analyzer 0 % (0-5); Neutrophil # 3.67 X10^3/uL (2.7-7.7); Neutrophil % 59.2 % (47-70); Platelet Count 244 K/mm3 (150-450); RBC Distribution Width CV 12.9 % (11.6-14.6); RBC Distribution Width SD 39.6 fl (35.1-43.9); Red Blood Count 4.36 M/mm3 (4.2-5.4); White Blood Count 6.2 K/mm3 (4.4-11.0)
[2023-11-01 16:51] LABS: Anion Gap 8 (5-15); BUN 13 mg/dL (7-18); BUN/Creat Ratio 15.5 RATIO (10-20); Calcium,Total 9.9 mg/dL (8.5-10.1); Chloride 104 mmol/L (98-107); Creatinine, Serum 0.84 mg/dL (0.55-1.02); EST Glomerular Filtration Rate 84 mL/min (>60); Est Glom Filt Rate - Afr Amer 101 mL/min (>60); Glucose 137 mg/dL (74-106); Potassium 4.3 mmol/L (3.5-5.1); Sodium Level 136 mmol/L (136-145); Troponin-I HS (w/2H Reflex) < 3 pg/mL (3.0-54.0)
[2023-11-01] MEDS: MethylPREDNISolone 125 MG/2 ML Vial 60 MG IV (16:51)
[2023-11-01] MEDS: proMETHazine 25 MG Tablet PO (16:51)
[2023-11-01] MEDS: DiphenhydrAMINE 50 MG/ML Syringe IV (16:51)
[2023-11-01 17:54] LABS: Reflex Troponin-HS? (from REC) Y
[2023-11-01 18:18] VITALS: BP 114/81; PULSE 105; RESP 16; O2SAT 97
[2023-11-01 18:27] LABS: Troponin-I HS < 3 pg/mL (3.0-54.0)
[2023-11-01] MEDS: oxyCODONE 5 MG Tablet 10 MG PO (18:45)
[2023-11-01 18:46] VITALS: BMI 42.2
[2023-11-01 19:00] LABS: BNP,B-Type NATRIURETIC PEPTIDE 2.5 pg/mL (0-100)
[2023-11-01 19:32] VITALS: BP 115/80; PULSE 98; RESP 20; TEMP 36.3; O2SAT 95
== END 2023-11-01 19:39 | disposition home or self-care (01) ==
PROVIDERS: Emergency Provider Emergency Medicine; PCP Family Medicine; Visit Provider Emergency Medicine
DX: D68.51 Activated protein C resistance (principal); E11.9 Type 2 diabetes mellitus without complications; R07.9 Chest pain, unspecified; J90 Pleural effusion, not elsewhere classified; Z86.718 Personal history of other venous thrombosis and embolism; R06.00 Dyspnea, unspecified
CPT/HCPCS: 71045; 71275; 80048; 83880; 84484; 85025; 93005; 96374; 96375; 99284; Q9967; A4216

== ENCOUNTER 2023-11-12 17:39 | Emergency (ER) | payer MEDICAID, SELFPAY ==
[2023-11-12 17:40] VITALS: BP 137/89; PULSE 102; RESP 18; TEMP 36.1; O2SAT 100; BMI 40.3
--- NOTE | 2023-11-12 18:40 | CT_ITS ---
STUDY: CT ABDOMEN AND PELVIS WITHOUT CONTRAST REASON FOR EXAM: Female, 33 years old. RLQ, anorexia, tenderness McBurney''s point -- Not sexually active x 2 years RADIATION DOSAGE (If Supplied By Facility): CTDIvol = ( 16.63 ) mGy, DLP = ( 939.05 ) mGycm TECHNIQUE: Transaxial images were obtained from the dome of the diaphragm to the symphysis pubis without oral contrast, and without intravenous contrast. Sagittal and coronal images were reconstructed. Individualized dose optimization techniques were used for this CT. COMPARISON: August 24, 2022 FINDINGS: There are moderate size bilateral pleural effusions with minor compressive atelectasis in the lower lobes. The visualized portions of the heart are within normal limits. Normal liver. Gallbladder has been removed surgically. Normal spleen. Normal pancreas. Normal bilateral adrenal glands. Normal right kidney. Normal left kidney. Normal visualized stomach. Nonspecific ileus with diffuse fecal retention in colon.. The appendix is not clearly identified however there are no secondary signs for acute appendicitis Normal abdominal aorta. Normal inferior vena cava. Normal retroperitoneum. Normal urinary bladder. There is a cystic structure in the right adnexa most likely ovarian measuring 3.65 x 2.5 cm Normal abdominal wall. Normal osseous structures. CT/Abdomen/Pelvis without Cont IMPRESSION: Moderate-sized bilateral pleural effusions with minor atelectasis within the dependent portion of the lower lobes Cystic structure in the right adnexa measuring 3.65 x 2.5 cm likely ovarian. No definitive evidence for acute appendicitis. However if strong clinical suspicion for appendicitis repeat exam with oral contrast would be helpful for more definitive evaluation Status post cholecystectomy Electronically Signed: Allan Suazo MD at 21:22 EDT ,
--- NOTE | 2023-11-12 18:42 | EDS_ITS ---
HPI HPI - GI History of Present Illness Chief Complaint: Abd Pain Detail of Chief Complaint: Abdominal pain right lower quadrant Informant: patient Abdominal Pain/Flank Pain Onset: Yesterday Context: Gradual Onset Timing: Continuous Quality: - (Pain) Location: RLQ Current Severity: Moderate Maximum Severity: Severe Worsened by: Movement Relieved by: Nothing Nausea/Vomiting/Emesis GI Symptom: Positive for Nausea Diarrhea/Melena/Hematochezia GI Symptom: Positive for Diarrhea (X 1 yesterday and today) Associated Symptoms Associated Symptoms: Negative for Dysuria, Frequency, Hematuria or Urgency LMP: 2 weeks ago. Patient not sexually active Narrative Narrative: patient is a 33-year-old woman who presents with pain that started in the epigastrium and has migrated to the right lower quadrant. She has no appetite. She is not eating since yesterday. She does report nausea vomiting episode of diarrhea yesterday. She denies dysuria, frequency, urgency or hematuria. Last menses 2 weeks ago. She is not sexually active. States she is has not had intercourse for 2 years. She denies fever or chills. She denies radiation of pain to her back. She denies urologic system. She denies history of renal or ureterolithiasis. There is no history of trauma. Prior similar symptoms: No Recent Illness/Hospitalization: No PFSH PFSH Medical History Anxiety Chest pain Depression Diabetes DVT (deep venous thrombosis) Factor V Leiden Head injury Kidney stones Ovarian cyst PCOS (polycystic ovarian syndrome) Prolonged QT interval PTSD (post-traumatic stress disorder) Pulmonary embolism TIA (transient ischemic attack) Home Medications topiramate 200 mg tablet 200 mg PO BID 09/10/18 [History Last Taken 08/25/22] fluoxetine 20 mg capsule 40 mg PO DAILY 12/24/19 [History Last Taken 08/25/22] prazosin 5 mg capsule 5 mg PO DAILY 06/06/21 [History Last Taken 08/25/22] promethazine 25 mg tablet 25 mg PO Q6H PRN PRN nausea 06/06/21 [History Last Taken 2 Days Ago ~08/24/22] magnesium 500 mg tablet 500 mg PO BID 10/10/21 [History Last Taken 08/25/22] vitamin B complex 2 cap PO DAILY 10/10/21 [History Last Taken 08/25/22] dulaglutide 0.75 mg/0.5 mL subcutaneous pen injector (Trulicity) 0.75 mg subcut TU DM 08/26/22 [History Last Taken 08/21/22] gabapentin 300 mg capsule 300 mg PO QHS RESTLESS LEG PAIN 08/26/22 [History Last Taken 08/25/22] hydrocodone-acetaminophen 5-325mg 5mg-325mg 1 tab PO Q6H PRN pain 3 days #8 tabs 08/26/22 [Rx Last Taken Unknown] hydrocodone-acetaminophen 5-325mg 5mg-325mg 1 tab PO Q6H PRN pain 3 days #8 tabs 08/26/22 [Rx Last Taken Unknown] hyoscyamine sulfate 0.125 mg tablet 0.125 mg PO Q4H ANXIETY 08/26/22 [History Last Taken 08/25/22] sumatriptan succinate 6 mg/0.5 mL subcutaneous pen injector 6 mg subcut Q12H MIGRAINE 08/26/22 [History Last Taken 1 Week Ago ~08/19/22] tizanidine 4 mg capsule 4 mg PO TID PRN Pain 08/26/22 [History Last Taken 2 Days Ago ~08/24/22] tramadol 50 mg tablet 50 mg PO Q6H PRN pain #14 tabs 08/26/22 [Rx Last Taken Unknown] zolpidem 10 mg tablet 10 mg PO QHS PRN Sleep 08/26/22 [History Last Taken 08/25/22] Allergy/AdvReac Type Severity Reaction Status Date / Time haloperidol Allergy Hives Verified 11/12/23 17:41 Iodinated Contrast Media Allergy Hives Verified 11/12/23 17:41 nitrofurantoin Allergy Other Verified 11/12/23 17:41 [From Macrobid] ondansetron [From Zofran] Allergy Hives Verified 11/12/23 17:41 propranolol Allergy Angioedema Verified 11/12/23 17:41 prochlorperazine AdvReac AGITATION Verified 11/12/23 17:41 [From Compazine] AND ANXIOUS Family History Other CVA (cerebral vascular accident) Heart disease Hypertension Thyroid disorder Surgical History H/O oophorectomy H/O tubal ligation History of cholecystectomy Hx of cholecystectomy Social History Smoking Status: Never smoker substance use type: does not use ROS ROS ED Constitutional Constitutional ED: Denies chills, fever(s), subjective or sweats ENT ENT ED: Denies rhinorrhea or sore throat Cardiovascular Cardiovascular: Denies chest pain or palpitations Respiratory/Chest Respiratory/Chest: Denies cough, dyspnea or dyspnea on exertion Gastrointestinal Gastrointestinal: Reports abdominal pain, diarrhea and nausea; Denies constipation, melena or vomiting Genitourinary Genitourinary ED: Denies dysuria, hematuria or urinary frequency Musculoskeletal Musculoskeletal: Denies arthralgias, back pain, myalgias or neck pain Integumentary Denies rash Neurologic Neurologic: Denies headache(s) or paresthesias Endocrine Endocrinology: Denies polydipsia, polyphagia or polyuria Hematologic/Lymphatic Hematologic/Lymphatic: Denies easy bleeding or easy bruising EXAM Physical Exam Const Vital Signs: 11/12/23 17:40 11/12/23 19:40 11/12/23 21:00 Temperature 96.9 F L Temperature Source Temporal Pulse Rate 102 H 80 79 Respiratory Rate 18 16 16 Blood Pressure 137/89 H 124/79 H 132/65 H Blood Pressure Mean 105 94 87 Pulse Ox 100 98 99 Oxygen Delivery Method Room Air Room Air Room Air Positive well nourished, well developed and obese Constitutional Narrative: Patient does not look well. General Appearance ED: well developed and NAD; Negative for pallor Nutritional Appearance: obese HEENT Reports TM's clear and dry mucous membranes normocephalic and atraumatic Tympanic Membrane ED: Yes TM's clear Mouth ED: Yes dry mucous membranes Mouth: dry mucous membranes Eyes PERRL General Eye ED: Negative for pale conjunctiva or scleral icterus Neck no lymphadenopathy, supple and no JVD Resp normal respiratory effort and clear to auscultation bilaterally Cardio regular rate, regular rhythm, S1 normal heart sound, S2 normal heart sound and no murmurs GI non-distended and no masses; Negative for non-tender Auscultation: hypoactive bowel sounds Palpation: soft, tender RLQ and McBurney's point, guarding RLQ and rebound tenderness present other (This is percussion tenderness right lower quadrant.); Negative for rigid, hepatomegaly, splenomegaly, hernia, mass or pulsatile mass Back/Spine no CVA tenderness Thoracic Spine / Upper Back: Negative for thoracic spinal tenderness Lumbar Spine / Lower Back: Negative for lumbar spinal tenderness Extremity full ROM General Extremety ED: Negative for edema or tenderness General Extremity: Negative for edema Neuro No CN's II-XII intact bilaterally and No moves all extremities Sensorium / Orientation: alert Psych mental status grossly normal and thought process normal Skin no wounds General Skin Exam: Negative for jaundice or pallor Lesions: no lesions Rashes: no rashes MDM MDM MDM Narrative Medical decision making narrative: Type a medic and pain medicine was ordered. Pain medicine was discontinued since I was informed that she has a care plan. Differential diagnosis would include abdominal pain unknown etiology, terminal ileitis, appendicitis, mesenteric adenitis, gynecologic pathology. Doubt urologic pathology with no urinary symptoms. CT, appropriate blood work was obtained. Since she is allergic to IV contrast emergency prep was ordered. History & Record Review Additional record(s) reviewed:: Prior outpatient record, Prior ED visit, Prior labs and Other (Patient records were reviewed and she has presented for right- sided abdominal pain in the past.) Radiography Diagnostic Testing: Clinical Impression(s) from Imaging Studies Abdomen/Pelvis CT 11/12/23 18:40 IMPRESSION: Moderate-sized bilateral pleural effusions with minor atelectasis within the dependent portion of the lower lobes Cystic structure in the right adnexa measuring 3.65 x 2.5 cm likely ovarian. No definitive evidence for acute appendicitis. However if strong clinical suspicion for appendicitis repeat exam with oral contrast would be helpful for more definitive evaluation Status post cholecystectomy Electronically Signed: Allan Suazo MD at 21:22 EDT , Treatment and Re-Evaluation :: Nurse was told that patient needs blood work done if they are unable to get the blood work I will gladly put a line in and draw the blood family if needed. I was informed that the lab was sent up to get blood work. I was unaware that IV could not be established. There was a delay in obtaining the CAT scan. Because there is no IV CT was done without contrast. Patient had a recent CAT scan of the chest for PE. There was bilateral pleural effusions. Since this is not acute she will be discharged to home with NSAIDs. She is presently on no anticoagulant. Discharge Plan Triage Chief Complaint: Abd Pain ED Provider: Edwar Ibrahim Dx/Rx/DC Orders Clinical Impression: Cyst of right ovary, MDD (major depressive disorder), PTSD (post-traumatic st ress disorder), Right lower quadrant abdominal pain, Bilateral pleural effusion, History of TIAs, Elevated blood-pressure reading, without diagnosis of hypertension Instructions: ED Ovarian Cyst, ED Pleural Effusion Prescriptions: No Action topiramate 200 MG tablet 200 mg PO BID fluoxetine 20 MG capsule 40 mg PO DAILY prazosin 5 mg capsule 5 mg PO DAILY Patient Comments: Take 1 capsule by mouth daily at bedtime. promethazine 25 mg tablet 25 mg PO Q6H PRN PRN (Reason: nausea) magnesium 500 mg Tablet 500 mg PO BID vitamin B complex Capsule 2 cap PO DAILY tizanidine 4 mg capsule 4 mg PO TID PRN (Reason: Pain) Patient Comments: TAKE 1 CAPSULE THREE TIMES DAILY NEEDED FOR PAIN hyoscyamine sulfate 0.125 mg tablet 0.125 mg PO Q4H Patient Comments: TAKE 1 TABLET BY MOUTH EVERY 4 HOURS NEEDED gabapentin 300 mg capsule 300 mg PO QHS Patient Comments: TAKE 1 CAPSULE BY MOUTH EVERY DAY AT BEDTIME zolpidem 10 mg Tablet 10 mg PO QHS PRN (Reason: Sleep) sumatriptan succinate 6 mg/0.5 mL pen injector 6 mg SUBCUT Q12H Patient Comments: INJECT 6 (SIX) MG SUBCUTANEOUSLY TWICE DAILY NEEDED FOR HEADACHE Trulicity 0.75 mg/0.5 mL pen injector 0.75 mg SUBCUT TU Patient Comments: Inject 0.75 mg subcutaneously one time a week. Inject dose once per week. Discard Pen After hydrocodone-acetaminophen 5-325 mg tablet 1 tab PO Q6H PRN (Reason: pain) 3 Days Qty: 8 0RF Rx Instructions: one or two every 6 H as needed for headache hydrocodone-acetaminophen 5-325 mg tablet 1 tab PO Q6H PRN (Reason: pain) 3 Days Qty: 8 0RF Rx Instructions: 1-2 Q6H prn headache tramadol 50 mg tablet 50 mg PO Q6H PRN (Reason: pain) Qty: 14 0RF Rx Instructions: one or two every six hours as needed for headache Primary Care Provider: Ki Weldon Referrals: Ki Weldon MD [Primary Care Provider] - 5-7 Days Disposition Disposition: Home, Self Care
[2023-11-12 19:40] VITALS: BP 124/79; PULSE 80; RESP 16; O2SAT 98
[2023-11-12 21:00] VITALS: BP 132/65; PULSE 79; RESP 16; O2SAT 99
--- NOTE | 2023-11-12 22:39 | ED.RN ---
this RN in room to discharge patient. patient dressed in street clothes. RN requested to take vitals. pt refused stating I just want to go home
== END 2023-11-12 22:42 | disposition home or self-care (01) ==
PROVIDERS: Emergency Provider Emergency Medicine; PCP Family Medicine; Visit Provider Emergency Medicine
DX: R10.31 Right lower quadrant pain (principal); E11.9 Type 2 diabetes mellitus without complications; F32.9 Major depressive disorder, single episode, unspecified; R19.7 Diarrhea, unspecified; F43.10 Post-traumatic stress disorder, unspecified; R11.10 Vomiting, unspecified; N83.201 Unspecified ovarian cyst, right side; E66.9 Obesity, unspecified; J90 Pleural effusion, not elsewhere classified; Z86.73 Personal history of transient ischemic attack (TIA), and cerebral infarction without residual deficits; R03.0 Elevated blood-pressure reading, without diagnosis of hypertension
CPT/HCPCS: 74176; 99282; J7030; A4216

== ENCOUNTER 2023-11-26 06:18 | Emergency (ER) | payer MEDICAID, SELFPAY ==
[2023-11-26 06:19] VITALS: BP 129/76; PULSE 57; RESP 16; TEMP 36.2; O2SAT 99; BMI 42.5
--- NOTE | 2023-11-26 06:51 | EX.ED.VIS.HA ---
HPI History of Present Illness Chief Complaint: Headache Informant: patient Narrative Narrative: 33-year-old female presents because she is having a migraine that will not go away. It has been 3 days. She states she cannot sleep she has been up all night tonight because of this, vomiting on occasion, blurry vision, mostly left frontal retro-orbital headache. Her neck feels a little stiff but no definite fevers although she admits she has been taking ibuprofen off-and-on trying to get the headache to go away. She has been taking her injectable sumatriptan without relief from any of this. This is a typical migraine from her except she is also having some discomfort in her left shoulder and arm, base of the left neck. No chest pain or shortness of breath except for when she exerts herself but she was diagnosed with pleural effusion several weeks ago, the symptoms really have not changed. She has not followed up with her doctor for this yet because they were out of town but she has an appointment coming up soon. [facility] Medical History Head injury Chest pain Prolonged QT interval Diabetes PCOS (polycystic ovarian syndrome) PTSD (post-traumatic stress disorder) Factor V Leiden Anxiety Depression Kidney stones Pulmonary embolism DVT (deep venous thrombosis) TIA (transient ischemic attack) Ovarian cyst Home Medications ?Medication ?Instructions ?Recorded ?Last Taken ?Type topiramate 200 mg tablet 200 mg PO BID 09/10/18 08/25/22 History fluoxetine 20 mg capsule 40 mg PO DAILY 12/24/19 08/25/22 History prazosin 5 mg capsule 5 mg PO DAILY 06/06/21 08/25/22 History promethazine 25 mg tablet 25 mg PO Q6H PRN PRN nausea 06/06/21 2 Days Ago History ~08/24/22 magnesium 500 mg tablet 500 mg PO BID 10/10/21 08/25/22 History vitamin B complex 2 cap PO DAILY 10/10/21 08/25/22 History dulaglutide 0.75 mg/0.5 mL 0.75 mg subcut TU DM 08/26/22 08/21/22 History subcutaneous pen injector (Trulicity) gabapentin 300 mg capsule 300 mg PO QHS RESTLESS LEG PAIN 08/26/22 08/25/22 History hydrocodone-acetaminophen 5-325mg 1 tab PO Q6H PRN pain 3 days #8 08/26/22 Unknown Rx 5mg-325mg tabs hydrocodone-acetaminophen 5-325mg 1 tab PO Q6H PRN pain 3 days #8 08/26/22 Unknown Rx 5mg-325mg tabs hyoscyamine sulfate 0.125 mg tablet 0.125 mg PO Q4H ANXIETY 08/26/22 08/25/22 History sumatriptan succinate 6 mg/0.5 mL 6 mg subcut Q12H MIGRAINE 08/26/22 1 Week Ago History subcutaneous pen injector ~08/19/22 tizanidine 4 mg capsule 4 mg PO TID PRN Pain 08/26/22 2 Days Ago History ~08/24/22 tramadol 50 mg tablet 50 mg PO Q6H PRN pain #14 tabs 08/26/22 Unknown Rx zolpidem 10 mg tablet 10 mg PO QHS PRN Sleep 08/26/22 08/25/22 History promethazine 25 mg tablet 25 mg PO Q6H PRN nausea and 11/12/23 Unknown Rx vomiting #10 tabs Allergy/AdvReac Type Severity Reaction Status Date / Time haloperidol Allergy Hives Verified 11/26/23 06:21 Iodinated Contrast Media Allergy Hives Verified 11/26/23 06:21 nitrofurantoin (From Allergy Other Verified 11/26/23 06:21 Macrobid) ondansetron (From Zofran) Allergy Hives Verified 11/26/23 06:21 propranolol Allergy Angioedema Verified 11/26/23 06:21 prochlorperazine (From AdvReac AGITATION Verified 11/26/23 06:21 Compazine) AND ANXIOUS Family History Other CVA (cerebral vascular accident) Heart disease Hypertension Thyroid disorder Surgical History H/O oophorectomy History of cholecystectomy Hx of cholecystectomy H/O tubal ligation Social History Smoking Status: Never smoker substance use type: does not use ROS ROS ED Constitutional Constitutional ED: Denies chills or fever(s) Eyes Eyes: Reports blurry vision; Denies diplopia ENT ENT ED: Denies ear pain or sore throat Cardiovascular Cardiovascular: Denies chest pain or palpitations Respiratory/Chest Respiratory/Chest: Denies cough or dyspnea Gastrointestinal Gastrointestinal: Reports nausea and vomiting; Denies abdominal pain or diarrhea Genitourinary Genitourinary ED: Denies dysuria or urinary frequency Musculoskeletal Musculoskeletal: Reports neck pain; Denies back pain or myalgias Integumentary Denies abscess or rash Neurologic Neurologic: Reports headache(s); Denies paresthesias or weakness EXAM Physical Exam Const Vital Signs: 11/26/23 06:19 Temperature 97.1 F L Temperature Source Temporal Pulse Rate 57 L Respiratory Rate 16 Blood Pressure 129/76 H Blood Pressure Mean 93 Pulse Ox 99 Oxygen Delivery Method Room Air Positive well nourished and well developed General Appearance ED: well developed and NAD HEENT Reports normocephalic and moist mucous membranes atraumatic Eyes PERRL, EOMs intact bilaterally and conjunctivae normal Eyes Narrative: photophobia Neck no lymphadenopathy, supple and no meningeal signs Neck Narrative: Full range of motion without any apparent difficulty including chin down to chest and full extension. Resp normal respiratory effort and clear to auscultation bilaterally Cardio regular rate, regular rhythm and no murmurs Rate: Negative for tachycardic GI non-tender and non-distended Palpation: soft Extremity normal to inspection and full ROM Neuro oriented x3 and CN's II-XII intact bilaterally Sensorium / Orientation: awake and alert Speech: speech normal Gait (Neuro): normal gait Motor Exam: strength 5/5 throughout Psych mental status grossly normal Skin Lesions: no lesions Rashes: no rashes MDM MDM MDM Narrative Medical decision making narrative: Patient presenting with a note from her old [facility] neurologist although she is getting a new one, suggesting for first line she get IV Benadryl, Phenergan, Decadron. She states she is a diabetic although she is controlled on Trulicity. Instead of 10 mg of Decadron I am giving her 4 mg she is amenable to that, and since this hospital is outlawed IV promethazine, I am giving her metoclopramide in addition to Norflex which is on her second-line medication list. She is amenable to the treatment and some IV fluids. Discharge Plan Triage Chief Complaint: Headache ED Provider: Emir Duval Dx/Rx/DC Orders Clinical Impression: Migraine headache Instructions: ED, Migraine (Classical) Prescriptions: No Action topiramate 200 MG tablet 200 mg PO BID fluoxetine 20 MG capsule 40 mg PO DAILY prazosin 5 mg capsule 5 mg PO DAILY Patient Comments: Take 1 capsule by mouth daily at bedtime. promethazine 25 mg tablet 25 mg PO Q6H PRN PRN (Reason: nausea) magnesium 500 mg Tablet 500 mg PO BID vitamin B complex Capsule 2 cap PO DAILY tizanidine 4 mg capsule 4 mg PO TID PRN (Reason: Pain) Patient Comments: TAKE 1 CAPSULE THREE TIMES DAILY NEEDED FOR PAIN hyoscyamine sulfate 0.125 mg tablet 0.125 mg PO Q4H Patient Comments: TAKE 1 TABLET BY MOUTH EVERY 4 HOURS NEEDED gabapentin 300 mg capsule 300 mg PO QHS Patient Comments: TAKE 1 CAPSULE BY MOUTH EVERY DAY AT BEDTIME zolpidem 10 mg Tablet 10 mg PO QHS PRN (Reason: Sleep) sumatriptan succinate 6 mg/0.5 mL pen injector 6 mg SUBCUT Q12H Patient Comments: INJECT 6 (SIX) MG SUBCUTANEOUSLY TWICE DAILY NEEDED FOR HEADACHE Trulicity 0.75 mg/0.5 mL pen injector 0.75 mg SUBCUT TU Patient Comments: Inject 0.75 mg subcutaneously one time a week. Inject dose once per week. Discard Pen After hydrocodone-acetaminophen 5-325 mg tablet 1 tab PO Q6H PRN (Reason: pain) 3 Days Qty: 8 0RF Rx Instructions: one or two every 6 H as needed for headache hydrocodone-acetaminophen 5-325 mg tablet 1 tab PO Q6H PRN (Reason: pain) 3 Days Qty: 8 0RF Rx Instructions: 1-2 Q6H prn headache tramadol 50 mg tablet 50 mg PO Q6H PRN (Reason: pain) Qty: 14 0RF Rx Instructions: one or two every six hours as needed for headache promethazine 25 mg tablet 25 mg PO Q6H PRN (Reason: nausea and vomiting) Qty: 10 0RF Primary Care Provider: Ki Weldon Referrals: Ki Weldon MD [Primary Care Provider] - Print Language: Greek Disposition Disposition: Home, Self Care
[2023-11-26] MEDS: dexAMETHasone 4 MG/ML Vial IV (07:52)
[2023-11-26] MEDS: 0.9% Normal Saline (500mL Bag) 500 ML 999 ML IV (07:53)
[2023-11-26] MEDS: Metoclopramide 10 MG/2 ML Vial IV (07:53)
[2023-11-26] MEDS: Orphenadrine 60 MG/2 ML Ampul IV (07:53)
[2023-11-26] MEDS: DiphenhydrAMINE 50 MG/ML Syringe IV (07:53)
[2023-11-26 08:18] VITALS: BP 130/78; PULSE 59; RESP 16; O2SAT 97
[2023-11-26 10:00] VITALS: BP 138/78; PULSE 64; RESP 16; O2SAT 98
[2023-11-26] MEDS: proCHLORPERazine 10 MG/2 ML Vial IV (10:16)
[2023-11-26] MEDS: DiphenhydrAMINE 50 MG/ML Syringe 25 MG IV ×2 (10:16→12:25)
[2023-11-26] MEDS: Valproate Sodium 500 MG in Dextrose 5%-Water (50mL Bag) 50 ML 50 MG IV (10:17)
[2023-11-26] MEDS: Morphine 4 MG/ML Syringe IV (12:25)
[2023-11-26 12:29] VITALS: BP 135/82; PULSE 58; RESP 12; O2SAT 99
[2023-11-26 14:00] VITALS: BP 131/91; PULSE 59; RESP 14; O2SAT 99
--- NOTE | 2023-11-26 14:26 | ED.RN ---
Patient notified that the ETA on squad would be pushed back to [id number]. Patient became upset and wanted to leave. Patient very agitated and states that she cannot get comfortable and feels like nothing is working. Christina RN spoke with Dr. Stoll, PO Ativan ordered. Christina ESQUIVEL then asked patient for the commitment to stay if she gave her the Ativan. After much 1:1 given patient has decided to take the Ativan and stay for the transfer.
[2023-11-26] MEDS: LORazepam 1 MG Tablet PO (14:27)
--- NOTE | 2023-11-26 14:28 | ED.RN ---
PT AGREEABLE TO [facility] AT THIS TIME. AGREES TO STAY FOR TRANSPORT
[2023-11-26 15:36] VITALS: BP 133/75; PULSE 60; RESP 12; TEMP 36.2; O2SAT 99
== END 2023-11-26 15:45 | disposition other institution (70) ==
PROVIDERS: Emergency Provider Emergency Medicine; PCP Family Medicine; Visit Provider Emergency Medicine
DX: G43.909 Migraine, unspecified, not intractable, without status migrainosus (principal); E11.9 Type 2 diabetes mellitus without complications; M43.6 Torticollis
CPT/HCPCS: 96365; 96366; 96375; 96376; 99284; J7040; A4216

== ENCOUNTER 2023-12-11 09:25 | Emergency (ER) | payer MEDICAID, SELFPAY ==
[2023-12-11 09:26] VITALS: BP 131/85; PULSE 86; RESP 15; TEMP 36.2; O2SAT 99; BMI 39.6
--- NOTE | 2023-12-11 09:35 | CT_ITS ---
STUDY: CT BRAIN WITHOUT CONTRAST REASON FOR EXAM: Female, 33 years old. [facility]. RADIATION DOSAGE (If Supplied By Facility): CTDIvol = ( 44.99 ) mGy, DLP = ( 745.49 ) mGycm TECHNIQUE: Transaxial CT imaging of the brain was performed without administration of intravenous contrast material. Individualized dose optimization techniques were used for this CT. COMPARISON: Comparison is made with prior study of August 26, 2022. FINDINGS: Normal soft tissue structures. Normal calvarium. Normal size ventricles and extra-axial spaces for the patient''s age. Normal white matter tracts of the cerebral hemispheres. Normal basal ganglia and thalami. Normal brainstem. Normal cerebellum. There is no intracranial hemorrhage. There are no findings of an acute ischemic infarction. Normal visualized paranasal sinuses. CT/Brain/Head without Contrast IMPRESSION: Normal unenhanced CT scan of the brain. Electronically Signed: Abdulaziz Chicas MD at 10:31 EDT ,
--- NOTE | 2023-12-11 09:35 | EX.ED.GENINJ ---
HPI History of Present Illness Chief Complaint: Head Injury Informant: patient Narrative Narrative: 33-year-old female presenting to the emergency room with a chief complaint of head injury. Patient is on Eliquis due to pulmonary emboli and arm DVT with a history of factor V Leiden. Patient states that last night she tripped struck the back of her head. She states she had a headache prior to the fall but her headache is gotten worse. She notes nausea which she had before the fall but also worse since the fall. She states she talked her primary care doctor's office and was called to come to emergency for a CT of her brain. Looking at the patient's chart this would be the patient's 35th CT since 2019 at this institution. Patient is aware that she has had extensive radiologic testing and I advised her to be cautious because radiation can be cumulative over her lifetime. [facility] Medical History Head injury Chest pain Prolonged QT interval Diabetes PCOS (polycystic ovarian syndrome) PTSD (post-traumatic stress disorder) Factor V Leiden Anxiety Depression Kidney stones Pulmonary embolism DVT (deep venous thrombosis) TIA (transient ischemic attack) Ovarian cyst Home Medications ?Medication ?Instructions ?Recorded ?Last Taken ?Type topiramate 200 mg tablet 200 mg PO BID 09/10/18 08/25/22 History prazosin 5 mg capsule 5 mg PO DAILY 06/06/21 08/25/22 History promethazine 25 mg tablet 25 mg PO Q6H PRN PRN nausea 06/06/21 2 Days Ago History ~08/24/22 vitamin B complex 2 cap PO DAILY 10/10/21 08/25/22 History dulaglutide 0.75 mg/0.5 mL 0.75 mg subcut TU DM 08/26/22 08/21/22 [facility] gabapentin 300 mg capsule 300 mg PO QHS RESTLESS LEG PAIN 08/26/22 08/25/22 History hyoscyamine sulfate 0.125 mg tablet 0.125 mg PO Q4H ANXIETY 08/26/22 08/25/22 History sumatriptan succinate 6 mg/0.5 mL 6 mg subcut Q12H MIGRAINE 08/26/22 1 Week Ago History subcutaneous pen injector ~08/19/22 tizanidine 4 mg capsule 4 mg PO TID PRN Pain 08/26/22 2 Days Ago History ~08/24/22 zolpidem 10 mg tablet 10 mg PO QHS PRN Sleep 08/26/22 08/25/22 History promethazine 25 mg tablet 25 mg PO Q6H PRN nausea and 11/12/23 Unknown Rx vomiting #10 tabs apixaban 5 mg tablet (Eliquis) PO 12/11/23 Unknown History Allergy/AdvReac Type Severity Reaction Status Date / Time haloperidol Allergy Hives Verified 12/11/23 09:28 Iodinated Contrast Media Allergy Hives Verified 12/11/23 09:28 nitrofurantoin (From Allergy Other Verified 12/11/23 09:28 Macrobid) ondansetron (From Zofran) Allergy Hives Verified 12/11/23 09:28 propranolol Allergy Angioedema Verified 12/11/23 09:28 prochlorperazine (From AdvReac AGITATION Verified 12/11/23 09:28 Compazine) AND ANXIOUS Family History Other CVA (cerebral vascular accident) Heart disease Hypertension Thyroid disorder Surgical History H/O oophorectomy History of cholecystectomy Hx of cholecystectomy H/O tubal ligation Social History Smoking Status: Never smoker substance use type: does not use ROS ROS ED Constitutional Constitutional ED: Denies chills, fever(s) or weight loss Eyes Eyes: Denies change in vision or diplopia ENT ENT ED: Denies ear pain, rhinorrhea or sore throat Cardiovascular Cardiovascular: Denies chest pain, orthopnea, palpitations or racing heartbeat Respiratory/Chest Respiratory/Chest: Denies cough, dyspnea or orthopnea Gastrointestinal Gastrointestinal: Reports nausea; Denies abdominal pain, diarrhea or vomiting Genitourinary Genitourinary ED: Denies dysuria, hematuria or urinary frequency Musculoskeletal Musculoskeletal: Denies arthralgias, myalgias or neck pain Integumentary Denies abscess or rash Neurologic Neurologic: Reports headache(s); Denies weakness Psychiatric Psychiatric: Denies anxiety, depression, suicidal ideation or suicidal thoughts Endocrine Endocrinology: Denies polydipsia, polyphagia or polyuria Allergic/Immunologic Allergic/Immunologic ED: Denies mouth swelling, tongue swelling or urticaria EXAM Physical Exam Const Vital Signs: 12/11/23 09:26 Temperature 97.2 F L Temperature Source Temporal Pulse Rate 86 Respiratory Rate 15 Blood Pressure 131/85 H Blood Pressure Mean 100 Pulse Ox 99 Oxygen Delivery Method Room Air Positive well nourished and well developed General Appearance ED: well developed HEENT Reports normocephalic, head/scalp atraumatic, TM's clear and moist mucous membranes HEENT Narrative: Patient notes tenderness to palpation on the left occipital aspect of her scalp. No palpable bony depression. No significant swelling or laceration seen. Tympanic Membrane ED: Yes TM's clear Eyes PERRL and EOMs intact bilaterally Neck full ROM, no lymphadenopathy, supple and no JVD Resp normal respiratory effort and clear to auscultation bilaterally Cardio regular rate, regular rhythm and no murmurs GI normal to inspection, nondistended, normoactive bowel sounds and non-tender Palpation: soft Back/Spine no CVA tenderness and normal ROM Extremity normal to inspection General Extremety ED: Negative for edema General Extremity: Negative for edema Neuro oriented x3 and CN's II-XII intact bilaterally Sensorium / Orientation: alert Motor Exam: strength 5/5 throughout Psych mental status grossly normal Mood & Affect: Negative for depressed or tearful Skin no rashes or lesions noted and no wounds MDM MDM MDM Narrative Medical decision making narrative: Differential diagnosis includes but not limited to intracranial hemorrhage/hematoma, skull fracture, concussion, contusion, malingering. I discussed with the patient risks benefits of CT. She has a fall with head injury on Eliquis and persistent headache and nausea a CT scan of the head was obtained. This is negative for intracranial hemorrhage or fracture. Patient will be discharged home with supportive care. Patient declined Tylenol. History & Record Review Discussion w/independent historian: Patient Lab Data Attestation: I reviewed the patient's lab results. Radiography Diagnostic Testing: Clinical Impression(s) from Imaging Studies Brain CT 12/11/23 09:35 IMPRESSION: Normal unenhanced CT scan of the brain. Electronically Signed: Abdulaziz Chicas MD at 10:31 EDT , Discharge Plan Triage Chief Complaint: Head Injury ED Provider: Jose Holder Dx/Rx/DC Orders Clinical Impression: Head injury, Headache, Anticoagulated, Nausea Instructions: ED Head Injury (Adult) Prescriptions: No Action topiramate 200 MG tablet 200 mg PO BID prazosin 5 mg capsule 5 mg PO DAILY Patient Comments: Take 1 capsule by mouth daily at bedtime. promethazine 25 mg tablet 25 mg PO Q6H PRN PRN (Reason: nausea) vitamin B complex Capsule 2 cap PO DAILY tizanidine 4 mg capsule 4 mg PO TID PRN (Reason: Pain) Patient Comments: TAKE 1 CAPSULE THREE TIMES DAILY NEEDED FOR PAIN hyoscyamine sulfate 0.125 mg tablet 0.125 mg PO Q4H Patient Comments: TAKE 1 TABLET BY MOUTH EVERY 4 HOURS NEEDED gabapentin 300 mg capsule 300 mg PO QHS Patient Comments: TAKE 1 CAPSULE BY MOUTH EVERY DAY AT BEDTIME zolpidem 10 mg Tablet 10 mg PO QHS PRN (Reason: Sleep) sumatriptan succinate 6 mg/0.5 mL pen injector 6 mg SUBCUT Q12H Patient Comments: INJECT 6 (SIX) MG SUBCUTANEOUSLY TWICE DAILY NEEDED FOR HEADACHE Trulicity 0.75 mg/0.5 mL pen injector 0.75 mg SUBCUT TU Patient Comments: Inject 0.75 mg subcutaneously one time a week. Inject dose once per week. Discard Pen After promethazine 25 mg tablet 25 mg PO Q6H PRN (Reason: nausea and vomiting) Qty: 10 0RF Eliquis 5 mg tablet PO Primary Care Provider: Ki Weldon Referrals: Ki Weldon MD [Primary Care Provider] - 1 Week Print Language: Macanese Disposition Disposition: Home, Self Care
== END 2023-12-11 11:00 | disposition home or self-care (01) ==
LOC: ED 10:04
PROVIDERS: Emergency Provider Emergency Medicine; PCP Family Medicine; Visit Provider Emergency Medicine
DX: S09.90XA Unspecified injury of head, initial encounter (principal); D68.2 Hereditary deficiency of other clotting factors; E11.9 Type 2 diabetes mellitus without complications; Z79.01 Long term (current) use of anticoagulants; R51.9 Headache, unspecified; Z86.718 Personal history of other venous thrombosis and embolism; Z86.711 Personal history of pulmonary embolism; W01.10XA Fall on same level from slipping, tripping and stumbling with subsequent striking against unspecified object, initial encounter
CPT/HCPCS: 70450; 99282

== ENCOUNTER → 2023-12-19 | Outpatient (CLI) | payer MEDICAID, SELFPAY ==
[2023-12-19 18:27] LABS: Protein, Urine (Random) 12.1 mg/dL (<11.9); Protein:Creat Ratio 157 mg/g CRE (0-200)
== END | disposition home or self-care (01) ==
LOC: LABSPEC 17:25
PROVIDERS: PCP Family Medicine; Visit Provider Nurse Practitioner
DX: E11.9 Type 2 diabetes mellitus without complications (principal)
CPT/HCPCS: 82570; 84156

== ENCOUNTER 2024-02-21 10:47 | Emergency (ER) | payer MEDICAID, SELFPAY ==
[2024-02-21 10:47] VITALS: BP 131/102; PULSE 110; RESP 18; TEMP 36.1; O2SAT 98; BMI 43.5
[2024-02-21 12:47] VITALS: BP 136/97; PULSE 96; RESP 18; O2SAT 97
[2024-02-21] MEDS: DiphenhydrAMINE 50 MG/ML Syringe 25 MG IV (13:19)
[2024-02-21] MEDS: Metoclopramide 10 MG/2 ML Vial IV (13:22)
[2024-02-21] MEDS: 0.9% Normal Saline (1000mL) 1,000 ML 999 ML IV (13:26)
[2024-02-21] MEDS: Ketorolac 15 MG/ML Vial IV (13:26)
--- NOTE | 2024-02-21 13:40 | EX.ED.VIS.HA ---
HPI History of Present Illness Chief Complaint: Headache Detail of Chief Complaint: Unilateral headache on the left Informant: patient Onset/Context/Timing Onset: Days Context: Gradual Timing: Continuous Quality -Headache: Positive for Similar Prior Headaches and Throbbing Location: Left Current Severity: Moderate Maximum Severity: Severe Worsened by: Light and sound Relieved by: Nothing Associated Symptoms/Injury Associated Symptoms: Positive for Nausea, Vomiting, Blurred Vision (Bilateral) and Photophobia; Negative for Fever, Sore Throat, Sinus Pressure, Numbness, Tingling, Preceding Aura, Visual Changes or Visual Loss Injury - FALL: Negative for Direct Trauma Narrative Narrative: Patient is a 33-year-old woman with known history of migraines. She states she used her last Imitrex. She presents with headache for the past several days. She also complains of bilateral blurred vision which is not abnormal for her. She does have a history of type 2 diabetes, pulmonary embolus, factor V Leiden, TIA, migraine headaches who was sent in by her neurologist. She sees Dr. Fernandes. She denies fever, chills night sweats. Denies neck pain or stiffness. She denies rash. She denies myalgias arthralgias. She denies cardiac respiratory symptoms. Her only GI symptom is nausea. She denies urologic symptoms. Prior similar symptoms: Yes Recent Illness/Hospitalization: [facility] Medical History delivery delivered Arthritis GERD (gastroesophageal reflux disease) Head injury Chest pain Prolonged QT interval Diabetes PCOS (polycystic ovarian syndrome) PTSD (post-traumatic stress disorder) Factor V Leiden Anxiety Depression Kidney stones Pulmonary embolism DVT (deep venous thrombosis) TIA (transient ischemic attack) Ovarian cyst Home Medications ?Medication ?Instructions ?Recorded ?Last Taken ?Type buprenorphine 8 mg-naloxone 2 mg sublingual 12/19/23 Unknown History sublingual film cetirizine 10 mg tablet 10 mg PO DAILY #60 tabs 12/19/23 Unknown Rx clonazepam 0.5 mg tablet mg PO 12/19/23 Unknown History desvenlafaxine succinate 50 mg 50 mg PO QDAY 12/19/23 Unknown History tablet,extended release 24 hr dulaglutide 1.5 mg/0.5 mL mg subcut 12/19/23 Unknown History subcutaneous pen injector (Trulicity) famotidine 20 mg tablet 20 mg PO QDAY 12/19/23 Unknown History lamotrigine 250 mg tablet,extended 250 mg PO QDAY 12/19/23 Unknown History release 24 hr mupirocin 2 % topical ointment 1 applic topical BID #15 grams 12/19/23 Unknown Rx pantoprazole 40 mg tablet,delayed 40 mg PO QDAY 12/19/23 Unknown History release prazosin 2 mg capsule 2 mg PO QHS 12/19/23 Unknown History trimethobenzamide 300 mg capsule mg PO 12/19/23 Unknown History ixeaylmods-klfbleuzxnody-aelkqgjx 1 tab PO Q4-6H #30 tabs 12/23/23 Unknown Rx 50 mg-325 mg-40 mg tablet apixaban 5 mg tablet (Eliquis) 5 mg PO BID 90 days #180 tabs 01/02/24 Unknown Rx sumatriptan succinate 6 mg/0.5 mL 6 mg (0.5 mL) subcut Q12H MIGRAINE 01/02/24 Unknown Rx subcutaneous pen injector #1 mL trazodone 50 mg tablet 50 mg PO QHS PRN insomnia #30 tabs 01/14/24 Unknown Rx alcohol swabs 1 pad topical DAILY #200 ea 01/21/24 Unknown Rx blood sugar diagnostic (OneTouch #100 ea 01/21/24 Unknown Rx Verio test strips) lancets 30 gauge (OneTouch #200 ea 01/23/24 Unknown Rx UltraSoft 2 Lancet) gabapentin 300 mg capsule 300 mg PO TID RESTLESS LEG PAIN 30 01/31/24 Unknown Rx days #90 caps acetaminophen 500 mg tablet 500 mg PO Q6 PRN pain #60 tabs 02/18/24 Unknown Rx linaclotide 290 mcg capsule 290 mcg PO QDAY #30 caps 02/18/24 Unknown Rx (Linzess) tizanidine 4 mg capsule 4 mg PO QHS PRN muscle spasticity 02/18/24 Unknown Rx #30 caps hydroxyzine HCl 50 mg tablet 50 - 100 mg (1 - 2 x 50 mg) PO TID 02/20/24 Unknown Rx PRN anxiety #90 tabs sumatriptan succinate 6 mg/0.5 mL See Rx Instructions .Route 02/21/24 Unknown Rx subcutaneous pen injector (Imitrex .COMPLEX #1 mL STATdose Pen) Allergy/AdvReac Type Severity Reaction Status Date / Time adhesive tape Allergy Mild Rash Verified 12/19/23 14:48 latex Allergy Mild Rash Verified 12/19/23 14:48 haloperidol Allergy Hives Verified 12/11/23 09:28 Iodinated Contrast Media Allergy Hives Verified 12/11/23 09:28 nitrofurantoin (From Allergy Other Verified 12/11/23 09:28 Macrobid) ondansetron (From Zofran) Allergy Hives Verified 12/11/23 09:28 propranolol Allergy Angioedema Verified 12/11/23 09:28 Family History Other Autoimmune disorder Bleeding disorder Breast cancer CVA (cerebral vascular accident) Colon cancer Diabetes Heart disease Hypertension Myocardial infarction Ovarian cancer Thyroid disorder Surgical History H/O hernia repair H/O wisdom tooth extraction H/O oophorectomy Hx of cholecystectomy H/O tubal ligation Social History adopted: No household members: none number of children: 2 current occupational status: unemployed pets and animals: No sexually active: No Smoking Status: Never smoker alcohol intake: never substance use type: does not use caffeine: No frequency: 3-4 times per week do you feel safe at home: Yes ROS ROS ED Constitutional Constitutional ED: Denies chills, fever(s), subjective, sweats or weight loss Eyes Eyes: Reports blurry vision bilateral; Denies change in vision or diplopia ENT ENT ED: Denies ear pain, rhinorrhea or sore throat Cardiovascular Cardiovascular: Denies chest pain, palpitations or racing heartbeat Respiratory/Chest Respiratory/Chest: Denies cough, dyspnea or dyspnea on exertion Gastrointestinal Gastrointestinal: Reports nausea; Denies abdominal pain, constipation, diarrhea, melena or vomiting Genitourinary Genitourinary ED: Denies dysuria, hematuria or urinary frequency Musculoskeletal Musculoskeletal: Denies arthralgias, back pain or myalgias Integumentary Denies rash Neurologic Neurologic: Reports headache(s); Denies paresthesias or weakness Endocrine Endocrinology: Denies polydipsia, polyphagia or polyuria Hematologic/Lymphatic Hematologic/Lymphatic: Denies easy bleeding or easy bruising EXAM Physical Exam Const Vital Signs: 02/21/24 10:47 02/21/24 12:47 02/21/24 14:00 Temperature 97 F L Temperature Source Temporal Pulse Rate 110 H 96 90 Respiratory Rate 18 18 18 Blood Pressure 131/102 H 136/97 H 128/82 H Blood Pressure Mean 111 110 97 Pulse Ox 98 97 97 Oxygen Delivery Method Room Air Room Air Room Air Positive well nourished and well developed General Appearance ED: well developed; Negative for cyanotic, diaphoretic, NAD or pallor HEENT Reports normocephalic, TM's clear and moist mucous membranes atraumatic Face and Sinus: Negative for sinus tenderness Tympanic Membrane ED: Yes TM's clear Eyes PERRL and EOMs intact bilaterally Eyes Narrative: There is no papilledema. Cup-to-disc ratio appears normal. General Eye ED: Negative for pale conjunctiva or scleral icterus Neck no lymphadenopathy, supple, no meningeal signs and no JVD Resp normal respiratory effort and clear to auscultation bilaterally Cardio regular rate, regular rhythm, S1 normal heart sound, S2 normal heart sound and no murmurs GI non-tender and non-distended Auscultation: normoactive bowel sounds Palpation: soft Back/Spine no CVA tenderness Extremity normal to inspection, full ROM and normal capillary refill Neuro oriented x3, CN's II-XII intact bilaterally and no sensory deficits noted Neuro Narrative: No clonus or Babinski noted. DTRs are 1-2+ bicep, tricep, patella and ankle and symmetric. Alek Coma Scale: document GCS findings Spontaneous Obeys Commands Oriented 15 Sensorium / Orientation: awake and alert Speech: speech normal Gait (Neuro): normal gait Motor Exam: strength 5/5 throughout Psych Attitude: No agitated Mood & Affect: depressed; Negative for anxious or tearful Skin General Skin Exam: elasticity normal and turgor normal; Negative for jaundice or pallor MDM MDM MDM Narrative Medical decision making narrative: Patient with history of migraines. History is consistent with migraine. Do not suspect meningitis, subarachnoid hemorrhage or pansinusitis. Clinically she does not have sinusitis. Patient has no meningeal findings and does not complain of a thunderclap headache. Headache is unilateral which would exclude meningitis. History & Record Review Discussion w/independent historian: Patient Additional record(s) reviewed:: Prior ED visit, Prior labs and Other (Patient has a care plan. This was adhered to.) Treatment and Re-Evaluation Narrative: Patient was reassessed at 1338. She states she has improvement. She is not feel comfortable to go home. Will reassess in 30 minutes Patient was reassessed at 1425. Her headache is improved slightly. Will administer D.H.E. 45 which she has had in the past with good results. Discharge Plan Triage Chief Complaint: Headache ED Provider: Edwar Ibrahim Dx/Rx/DC Orders Clinical Impression: Intractable chronic migraine without aura and with status migrainosus, Type 2 diabetes mellitus, Factor V Leiden mutation, TIA (transient ischemic attack), History of pulmonary embolism Instructions: ED, Migraine (Classical) Prescriptions: New sumatriptan succinate [Imitrex STATdose Pen] 6 mg/0.5 mL pen injector See Rx Instructions .ROUTE .COMPLEX Qty: 1 2RF Rx Instructions: 6 mg subcutaneously may repeat x 1. No more than 2 doses in 24 hours No Action desvenlafaxine succinate 50 mg tablet extended release 24 hr 50 mg PO QDAY lamotrigine 250 mg tablet extended release 24hr 250 mg PO QDAY prazosin 2 mg capsule 2 mg PO QHS clonazepam 0.5 mg tablet PO famotidine 20 mg tablet 20 mg PO QDAY pantoprazole 40 mg tablet,delayed release (DR/EC) 40 mg PO QDAY trimethobenzamide 300 mg capsule PO Trulicity 1.5 mg/0.5 mL pen injector subcut buprenorphine-naloxone 8-2 mg film sublingual mupirocin 2 % ointment 1 applic topical BID Qty: 15 0RF cetirizine 10 mg tablet 10 mg PO DAILY Qty: 60 0RF ytfwdzkusx-exmqrwxncmjqn-uidy 50-325-40 mg tablet 1 tab PO Q4-6H Qty: 30 0RF Rx Instructions: Limit use to less than 3 days per month, do not exceed 6 tablets per day Eliquis 5 mg tablet 5 mg PO BID 90 Days Qty: 180 0RF sumatriptan succinate 6 mg/0.5 mL pen injector 6 mg SUBCUT Q12H Qty: 1 2RF trazodone 50 mg tablet 50 mg PO QHS PRN (Reason: insomnia) Qty: 30 0RF alcohol swabs Pads, Medicated 1 pad topical DAILY Qty: 200 0RF (DME) OneTouch Verio test strips Strip See Rx Instructions .Route Qty: 100 0RF Rx Instructions: Use one strip once per day to check blood glucose level (DME) lancets [OneTouch UltraSoft 2 Lancet] 30 gauge misc See Rx Instructions .Route Qty: 200 0RF Rx Instructions: Use once daily to check blood glucose level gabapentin 300 mg capsule 300 mg PO TID 30 Days Qty: 90 0RF acetaminophen 500 mg tablet 500 mg PO Q6 PRN (Reason: pain) Qty: 60 0RF Rx Instructions: do not take in addition to Fiorcet Linzess 290 mcg capsule 290 mcg PO QDAY Qty: 30 0RF tizanidine 4 mg capsule 4 mg PO QHS PRN (Reason: muscle spasticity) Qty: 30 0RF hydroxyzine HCl 50 mg tablet 50 - 100 mg PO TID PRN (Reason: anxiety) Qty: 90 0RF Primary Care Provider: Flavia Hilton Referrals: Flavia Hilton, ROUTEMAN-[facility] [Primary Care Provider] - 3-5 Days if not improving Print Language: Armenian Disposition Disposition: Home, Self Care
[2024-02-21 14:00] VITALS: BP 128/82; PULSE 90; RESP 18; O2SAT 97
[2024-02-21] MEDS: Dihydroergotamine 1 MG/ML Ampul IV (14:47)
[2024-02-21 16:00] VITALS: BP 135/97; PULSE 85; RESP 16; TEMP 36.7; O2SAT 97
== END 2024-02-21 16:07 | disposition home or self-care (01) ==
PROVIDERS: Emergency Provider Emergency Medicine; PCP Nurse Practitioner; Visit Provider Emergency Medicine
DX: G43.711 Chronic migraine without aura, intractable, with status migrainosus (principal); E11.9 Type 2 diabetes mellitus without complications; D68.51 Activated protein C resistance; Z79.01 Long term (current) use of anticoagulants; Z79.85 Long-term (current) use of injectable non-insulin antidiabetic drugs; Z79.899 Other long term (current) drug therapy; Z86.711 Personal history of pulmonary embolism; Z86.73 Personal history of transient ischemic attack (TIA), and cerebral infarction without residual deficits
CPT/HCPCS: 96361; 96374; 96375; 99284; J7030; A4216; J1110

== ENCOUNTER 2024-07-22 10:36 | Day surgery (SDC) | payer MEDICAID, SELFPAY ==
--- NOTE | 2024-07-14 15:53 | PAT.ANE_ITS ---
Pre-Assessment Diagnosis/Proposed Procedure Planned Operative Procedure(s): (R) Insertion, Vascular Port right possible left Anesthesia History Anesthesia History - fitness consultant: Anesthesia History - fitness consultant Hx Hospitalization Yes: 09/2023-RETAINING URINE 07/14/24 10:04 Any Problems With Anesthesia No 07/14/24 10:04 Cholinesterase deficiency No 07/14/24 10:04 You/Your Family Experience No 07/14/24 10:04 fever (hyperthermia) with Relationship Recent Exposure to Contagious Disease Does patient have nerve No 07/14/24 10:04 stimulator Patient instructed to have device shut off --Does patient have Pacemaker or ICD? When Was Last Pacemaker Check QUESTION #4 FULL TEXT: You/Your Family Experience fever (hyperthermia) with Anesthesia Last Oral Intake Last Oral intake: Last Oral Intake NPO since Meds taken in AM with sips of water? Meds patient instructed to take am of surgery PONV PONV - fitness consultant: PONV - fitness consultant Female Yes 07/14/24 10:04 HX of Motion Sickness Yes 07/14/24 10:04 HX of N/V After Surgery No 07/14/24 10:04 Non-Smoker No 07/14/24 10:04 Duration of Surgery greater Yes 07/14/24 10:04 than 60 minutes Number of Risk Factors 3 07/14/24 10:04 PONV Score Moderate Risk 07/14/24 10:04 Height & Weight Height & Weight: Anesthesia: Height & Weight Height 5 ft 1 in 07/09/24 08:26 Respiratory Assessment Respiratory Assessment - fitness consultant: Respiratory Tract Infection Hx - fitness consultant Hx Respiratory Tract Infection No 07/14/24 10:04 STOP Sleep Apnea STOP Sleep Apnea - fitness consultant: STOP Sleep Apnea - fitness consultant Hx Hypertension No 07/14/24 10:04 Hx Sleep Apnea No 07/14/24 10:04 CPAP BIPAP Do you snore loudly (louder No 07/14/24 10:04 than talking or can be heard Do you often feel tired/ No 07/14/24 10:04 fatigued/ sleepy during daytime? Has anyone observed you stop No 07/14/24 10:04 breathing during sleep? STOP Results Negative 07/14/24 10:04 QUESTION #5 FULL TEXT : Do you snore loudly (louder than talking or can be heard through closed doors)? Tobacco Use History Tobacco Use History - fitness consultant: Tobacco Use History - fitness consultant Tobacco Use Smoking Status Never smoker 07/14/24 10:04 Hx Tobacco Use No 07/14/24 10:04 Years Smoking Packs Smoked per Day Smoking Cessation Date was within the last 15 years Hx Smoking Cessation Date Hx Smoking Cessation Counseling Hematologic Medial History Hematologic Hx - fitness consultant: Hematologic Medical Hx - job developer for deaf adults Hx of Blood Transfusion No 07/14/24 10:04 Hx of Transfusion in last 3 No 07/14/24 10:04 Months Date of Last Transfusion (if within last 3 months) Ever experience any problems No 07/14/24 10:04 with transfusion(s)? Specify any problems Hx of Preganancy in last 3 No 07/14/24 10:04 Months Nurse Filling Out Transfusion VCHRISTIN 07/14/24 10:04 & Questions: Date: 07/14/24 07/14/24 10:04 Time: 10:05 07/14/24 10:04 Patient unable to answer at this time (ie. confused, unrespo /Reproduction History /Reproductive History - fitness consultant: /Reproductive Hx- fitness consultant Hx Now No 07/14/24 10:04 Gestational Age (in weeks): EDC: Hx Hx Para Hx Section SAB No 07/14/24 10:04 [facility] Medical History (Updated 07/14/24 @ 11:34 by Sera Shields) Implantable loop recorder present Wears glasses Anxiety MRSA infection Substance abuse History of steroid therapy Diabetes Injury of head and neck History of IBS Gastric reflux Open wound of right elbow Leg wound, right Difficult intravenous access Neuropathy Candidiasis Recurrent pulmonary emboli delivery delivered Arthritis GERD (gastroesophageal reflux disease) Head injury Chest pain Prolonged QT interval Diabetes PCOS (polycystic ovarian syndrome) PTSD (post-traumatic stress disorder) Factor V Leiden Anxiety Depression Kidney stones Pulmonary embolism DVT (deep venous thrombosis) TIA (transient ischemic attack) Ovarian cyst Home Medications ?Medication ?Instructions ?Recorded ?Last Taken ?Type famotidine 20 mg tablet 20 mg PO QDAY 12/19/23 Unknown History pantoprazole 40 mg tablet,delayed 40 mg PO QDAY 12/19/23 Unknown History release sumatriptan succinate 6 mg/0.5 mL 6 mg (0.5 mL) subcut Q12H MIGRAINE 01/02/24 Unknown Rx subcutaneous pen injector #1 mL alcohol swabs 1 pad topical DAILY #200 ea 01/21/24 Unknown Rx blood sugar diagnostic (OneTouch #100 ea 01/21/24 Unknown Rx Verio test strips) lancets 30 gauge (OneTouch #200 ea 01/23/24 Unknown Rx UltraSoft 2 Lancet) blood-glucose sensor (FreeStyle #1 ea 06/08/24 Unknown Rx Sarai 2 Plus Sensor device) buprenorphine 8 mg-naloxone 2 mg 1 film sublingual DAILY 06/08/24 Unknown History sublingual film cetirizine 10 mg tablet 10 mg PO DAILY PRN allergy 06/08/24 Unknown Rx symptoms #90 tabs docusate sodium 100 mg capsule 100 mg PO DAILY #90 caps 06/08/24 Unknown Rx (Colace) gabapentin 100 mg capsule 200 mg (2 x 100 mg) PO TID 1 month 06/08/24 Unknown Rx #180 caps zolpidem 10 mg tablet 10 mg PO QHS PRN sleep 06/08/24 Unknown History blood-glucose meter,continuous #1 ea 06/09/24 Unknown Rx (Dexcom G7 Cmm Programmer) acetaminophen 500 mg tablet 1,000 mg (2 x 500 mg) PO Q8 PRN 06/16/24 Unknown Rx (Tylenol Extra Strength) fever or pain #90 tabs hyoscyamine sulfate 0.125 mg tablet 0.125 mg PO BID-QID PRN dyspepsia 06/16/24 Unknown Rx #60 tabs lidocaine 5 % topical patch 1 patch topical QDAY PRN pain #30 06/16/24 Unknown Rx ea linaclotide 290 mcg capsule 290 mcg PO QDAY #90 caps 06/16/24 Unknown Rx (Linzess) meclizine 25 mg tablet 25 mg PO BID PRN motion sickness 06/16/24 Unknown Rx #30 tabs aripiprazole 10 mg tablet 10 mg PO QDAY 07/06/24 Unknown History mupirocin 2 % topical ointment 1 applic topical BID #15 grams 07/06/24 Unknown Rx blood-glucose sensor (Dexcom G7 #1 ea 07/09/24 Unknown Rx Sensor device) blood-glucose transmitter (Dexcom #1 ea 07/09/24 Unknown Rx G6 Transmitter device) dulaglutide 1.5 mg/0.5 mL 1.5 mg (0.5 mL) subcut QWEEK 3 07/09/24 Unknown Rx subcutaneous pen injector months #6.5 mL (Trulicity) atogepant 60 mg tablet (Qulipta) 60 mg PO DAILY 07/14/24 Unknown History lamotrigine 200 mg tablet 200 mg PO BID 07/14/24 Unknown History Allergy/AdvReac Type Severity Reaction Status Date / Time bee venom protein (honey Allergy Severe Anaphylaxis Verified 07/14/24 09:40 bee) (bee sting) adhesive tape Allergy Mild Rash Verified 07/14/24 09:40 latex Allergy Mild Rash Verified 07/14/24 09:40 Iodinated Contrast Media Allergy Hives Verified 07/14/24 09:40 nitrofurantoin (From Allergy Other Verified 07/14/24 09:40 Macrobid) ondansetron (From Zofran) Allergy Hives Verified 07/14/24 09:40 propranolol Allergy Angioedema Verified 07/14/24 09:40 haloperidol AdvReac mood issues Verified 07/14/24 09:40 Family History Other Autoimmune disorder Bleeding disorder Breast cancer CVA (cerebral vascular accident) Colon cancer Diabetes Heart disease Hypertension Myocardial infarction Ovarian cancer Thyroid disorder Surgical History Port-A-Cath in place H/O hernia repair H/O wisdom tooth extraction H/O oophorectomy Hx of cholecystectomy H/O tubal ligation Social History adopted: No household members: children and none number of children: 2 current occupational status: unemployed pets and animals: No sexually active: No Smoking Status: Never smoker alcohol intake: never substance use type: does not use caffeine: No frequency: 3-4 times per week do you feel safe at home: Yes Audit: Pertinent Findings Pertinent Findings EKG Perinent findings: 11/01/2023 sinus tachycardia 120 bpm nonspecific T wave abnormality Additional pertinent findings: History of TIA strokelike symptoms paresthesia headaches PTSD anxiety Recommendation Anesthesia Recommendation Anesthesia recommendation: OPTIMIZED for anesthesia
[2024-07-22] VITALS (7 sets, daily range): BP systolic 133–154; BP diastolic 70–94; PULSE 110–124; RESP 14–18; TEMP 36.3–37.3; O2SAT 97–100; BMI 42.0
[2024-07-22 11:54] LABS: Bedside Glucose 134 mg/dL (74-106)
--- NOTE | 2024-07-22 12:08 | PRE.ANES_ITS ---
ASA Classification* ASA Classification ASA Classification: 2 Assessment & Plan Anesthesia* Anesthesia Assessment Anesthesia Assessment: Discussed sedation and/or anesthesia options, risks, benefits, and alternatives with patient/parents/legal guardian/POA. Questions invited. The patient/parents/legal guardian/POA seems to understand and agrees to proceed with anesthesia plan. Reviewed the physical assessment, medical history, allergy history and patient home medications list prior to surgery/procedure/anesthetic and documented any changes. Performed airway and anesthesia risk assessments. Anesthesia Type Anesthesia Type: MAC Anesthesia Focused Assessment* Temperature: 97.4 F Pulse Rate: 116 Blood Pressure: 153/94 Respiratory Rate: 16 Pulse Ox: 100 Airway Assessment Mouth opens: >3 cm Mallampati Score: II Focused Labs Anesthesia Preop lab: CBC WBC 6.2 K/mm3 (4.4-11.0) 11/01/23 16:33 RBC 4.36 M/mm3 (4.2-5.4) 11/01/23 16:33 Hgb 12.2 g/dL (12.0-15.0) 11/01/23 16:33 Hct 37.2 % (37-47) 11/01/23 16:33 Plt Count 244 K/mm3 (150-450) 11/01/23 16:33 CHEMISTRY Potassium 4.3 mmol/L (3.5-5.1) 11/01/23 15:45 Sodium 136 mmol/L (136-145) 11/01/23 15:45 BUN 13 mg/dL (7-18) 11/01/23 15:45 Creatinine 0.84 mg/dL (0.55-1.02) 11/01/23 15:45 Glucose 137 mg/dL (74-106) H 11/01/23 15:45 POC Glucose 134 mg/dL (74-106) H 07/22/24 11:26 TSH 0.68 uIU/mL (0.358-3.74) 11/11/19 00:40 COAG PT 12.3 SECONDS (11.7-14.9) 09/18/20 01:50 Urine Test Negative Negative 08/06/20 11:43 Pre-Assessment Diagnosis/Proposed Procedure Planned Operative Procedure(s): (R) Insertion, Vascular Port right possible left Anesthesia History 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 When Was Last Pacemaker Check QUESTION #4 FULL TEXT: You/Your Family Experience fever (hyperthermia) with Anesthesia Last Oral Intake Last Oral intake: Last Oral Intake NPO since 23:00 07/22/24 11:21 Meds taken in AM with sips of water? Meds patient instructed to take am of surgery PONV PONV - manufacturing laborer: PONV - manufacturing laborer Female Yes 07/14/24 10:04 HX of Motion Sickness Yes 07/14/24 10:04 HX of N/V After Surgery No 07/14/24 10:04 Non-Smoker No 07/14/24 10:04 Duration of Surgery greater Yes 07/14/24 10:04 than 60 minutes Number of Risk Factors 3 07/14/24 10:04 PONV Score Moderate Risk 07/14/24 10:04 Height & Weight Height & Weight: Anesthesia: Height & Weight Height 5 ft 1 in 07/22/24 11:21 Weight: 101 kg 07/22/24 11:21 Body Mass Index (BMI) 42.0 07/22/24 11:21 Respiratory Assessment Respiratory Assessment - manufacturing laborer: Respiratory Tract Infection Hx - manufacturing laborer Hx Respiratory Tract Infection No 07/14/24 10:04 STOP Sleep Apnea STOP Sleep Apnea - manufacturing laborer: STOP Sleep Apnea - manufacturing laborer Hx Hypertension No 07/14/24 10:04 Hx Sleep Apnea No 07/14/24 10:04 CPAP BIPAP Do you snore loudly (louder No 07/14/24 10:04 than talking or can be heard Do you often feel tired/ No 07/14/24 10:04 fatigued/ sleepy during daytime? Has anyone observed you stop No 07/14/24 10:04 breathing during sleep? STOP Results Negative 07/14/24 10:04 QUESTION #5 FULL TEXT : Do you snore loudly (louder than talking or can be heard through closed doors)? 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 Specify any problems Hx of Preganancy in last 3 No 07/14/24 10:04 Months Nurse Filling Out Transfusion VCHRISTIN 07/14/24 10:04 & Questions: Date: 07/14/24 07/14/24 10:04 Time: 10:05 07/14/24 10:04 Patient unable to answer at this time (ie. confused, unrespo /Reproduction History /Reproductive History - manufacturing laborer: /Reproductive Hx- manufacturing laborer Hx Now No 07/14/24 10:04 Gestational Age (in weeks): EDC: Hx Hx Para Hx Section SAB No 07/14/24 10:04 Active Medications Active Medications: Current Medications Generic Name Dose Route Start Last Admin Trade Name Freq PRN Reason Stop Dose Admin Cefazolin Sodium 2 gm/ N/A 20 mls @ 400 mls/hr 07/22/24 12:45 IV 07/22/24 12:47 PREOP ONE [facility] Medical History Implantable loop recorder present Wears glasses Anxiety MRSA infection Substance abuse History of steroid therapy Diabetes Injury of head and neck History of IBS Gastric reflux Open wound of right elbow Leg wound, right Difficult intravenous access Neuropathy Candidiasis Recurrent pulmonary emboli delivery delivered Arthritis GERD (gastroesophageal reflux disease) Head injury Chest pain Prolonged QT interval Diabetes PCOS (polycystic ovarian syndrome) PTSD (post-traumatic stress disorder) Factor V Leiden Anxiety Depression Kidney stones Pulmonary embolism DVT (deep venous thrombosis) TIA (transient ischemic attack) Ovarian cyst Home Medications ?Medication ?Instructions ?Recorded ?Last Taken ?Type famotidine 20 mg tablet 20 mg PO QDAY 12/19/23 Unknown History pantoprazole 40 mg tablet,delayed 40 mg PO QDAY 12/19/23 Unknown History release sumatriptan succinate 6 mg/0.5 mL 6 mg (0.5 mL) subcut Q12H MIGRAINE 01/02/24 Unknown Rx subcutaneous pen injector #1 mL alcohol swabs 1 pad topical DAILY #200 ea 01/21/24 Unknown Rx blood sugar diagnostic (OneTouch #100 ea 01/21/24 Unknown Rx Verio test strips) lancets 30 gauge (OneTouch #200 ea 01/23/24 Unknown Rx UltraSoft 2 Lancet) blood-glucose sensor (FreeStyle #1 ea 06/08/24 Unknown Rx Sarai 2 Plus Sensor device) buprenorphine 8 mg-naloxone 2 mg 1 film sublingual DAILY 06/08/24 Unknown His tory sublingual film cetirizine 10 mg tablet 10 mg PO DAILY PRN allergy 06/08/24 Unknown Rx symptoms #90 tabs docusate sodium 100 mg capsule 100 mg PO DAILY #90 caps 06/08/24 Unknown Rx (Colace) gabapentin 100 mg capsule 200 mg (2 x 100 mg) PO TID 1 month 06/08/24 Unknown Rx #180 caps zolpidem 10 mg tablet 10 mg PO QHS PRN sleep 06/08/24 Unknown History blood-glucose meter,continuous #1 ea 06/09/24 Unknown Rx (Dexcom G7 Carbon Printer) acetaminophen 500 mg tablet 1,000 mg (2 x 500 mg) PO Q8 PRN 06/16/24 Unknown Rx (Tylenol Extra Strength) fever or pain #90 tabs hyoscyamine sulfate 0.125 mg tablet 0.125 mg PO BID-QID PRN dyspepsia 06/16/24 Unknown Rx #60 tabs lidocaine 5 % topical patch 1 patch topical QDAY PRN pain #30 06/16/24 Unknown Rx ea linaclotide 290 mcg capsule 290 mcg PO QDAY #90 caps 06/16/24 Unknown Rx (Linzess) meclizine 25 mg tablet 25 mg PO BID PRN motion sickness 06/16/24 Unknown Rx #30 tabs aripiprazole 10 mg tablet 10 mg PO QDAY 07/06/24 Unknown History mupirocin 2 % topical ointment 1 applic topical BID #15 grams 07/06/24 Unknown Rx blood-glucose sensor (Dexcom G7 #1 ea 07/09/24 Unknown Rx Sensor device) blood-glucose transmitter (Dexcom #1 ea 07/09/24 Unknown Rx G6 Transmitter device) dulaglutide 1.5 mg/0.5 mL 1.5 mg (0.5 mL) subcut QWEEK 3 07/09/24 07/10/24 Rx subcutaneous pen injector months #6.5 mL (Trulicity) atogepant 60 mg tablet (Qulipta) 60 mg PO DAILY 07/14/24 Unknown History lamotrigine 200 mg tablet 200 mg PO BID 07/14/24 Unknown History sumatriptan succinate 100 mg tablet See Rx Instructions PO .COMPLEX #2 07/20/24 Unknown Rx tabs Allergy/AdvReac Type Severity Reaction Status Date / Time bee venom protein (honey Allergy Severe Anaphylaxis Verified 07/22/24 11:19 bee) (bee sting) adhesive tape Allergy Mild Rash Verified 07/22/24 11:19 latex Allergy Mild Rash Verified 07/22/24 11:19 Iodinated Contrast Media Allergy Hives Verified 07/22/24 11:19 nitrofurantoin (From Allergy Other Verified 07/22/24 11:19 Macrobid) ondansetron (From Zofran) Allergy Hives Verified 07/22/24 11:19 propranolol Allergy Angioedema Verified 07/22/24 11:19 haloperidol AdvReac mood issues Verified 07/22/24 11:19 Family History Other Autoimmune disorder Bleeding disorder Breast cancer CVA (cerebral vascular accident) Colon cancer Diabetes Heart disease Hypertension Myocardial infarction Ovarian cancer Thyroid disorder Surgical History Port-A-Cath in place H/O hernia repair H/O wisdom tooth extraction H/O oophorectomy Hx of cholecystectomy H/O tubal ligation Social History adopted: No household members: children and none number of children: 2 current occupational status: unemployed pets and animals: No sexually active: No Smoking Status: Never smoker alcohol intake: never substance use type: does not use caffeine: No frequency: 3-4 times per week do you feel safe at home: Yes Review of Systems (Anesthesia) ROS Narrative System reviewed and no additional complaints, except as documented.
--- NOTE | 2024-07-22 12:30 | PCM.HP.STD ---
HPI - General General Date of Admission: 07/22/24 Date of Service: 07/22/24 Chief Complaint: need for IV access HPI Narrative ERIN TORRES, is a 34 F who presents for medport placement; She is a very difficult IV access patient and receives frequent IV infusions for migraine headaches. She presents today to have Mediport placed. She was seen recently in my office. She denies any issues or problems. [facility] Medical History Implantable loop recorder present Wears glasses Anxiety MRSA infection Substance abuse History of steroid therapy Diabetes Injury of head and neck History of IBS Gastric reflux Open wound of right elbow Leg wound, right Difficult intravenous access Neuropathy Candidiasis Recurrent pulmonary emboli delivery delivered Arthritis GERD (gastroesophageal reflux disease) Head injury Chest pain Prolonged QT interval Diabetes PCOS (polycystic ovarian syndrome) PTSD (post-traumatic stress disorder) Factor V Leiden Anxiety Depression Kidney stones Pulmonary embolism DVT (deep venous thrombosis) TIA (transient ischemic attack) Ovarian cyst Home Medications ?Medication ?Instructions ?Recorded ?Last Taken ?Type famotidine 20 mg tablet 20 mg PO QDAY 12/19/23 Unknown History pantoprazole 40 mg tablet,delayed 40 mg PO QDAY 12/19/23 Unknown History release sumatriptan succinate 6 mg/0.5 mL 6 mg (0.5 mL) subcut Q12H MIGRAINE 01/02/24 Unknown Rx subcutaneous pen injector #1 mL alcohol swabs 1 pad topical DAILY #200 ea 01/21/24 Unknown Rx blood sugar diagnostic (OneTouch #100 ea 01/21/24 Unknown Rx Verio test strips) lancets 30 gauge (OneTouch #200 ea 01/23/24 Unknown Rx UltraSoft 2 Lancet) blood-glucose sensor (FreeStyle #1 ea 06/08/24 Unknown Rx Asrai 2 Plus Sensor device) buprenorphine 8 mg-naloxone 2 mg 1 film sublingual DAILY 06/08/24 Unknown History sublingual film cetirizine 10 mg tablet 10 mg PO DAILY PRN allergy 06/08/24 Unknown Rx symptoms #90 tabs docusate sodium 100 mg capsule 100 mg PO DAILY #90 caps 06/08/24 Unknown Rx (Colace) gabapentin 100 mg capsule 200 mg (2 x 100 mg) PO TID 1 month 06/08/24 Unknown Rx #180 caps zolpidem 10 mg tablet 10 mg PO QHS PRN sleep 06/08/24 Unknown History blood-glucose meter,continuous #1 ea 06/09/24 Unknown Rx (Dexcom G7 Fish Protector) acetaminophen 500 mg tablet 1,000 mg (2 x 500 mg) PO Q8 PRN 06/16/24 Unknown Rx (Tylenol Extra Strength) fever or pain #90 tabs hyoscyamine sulfate 0.125 mg tablet 0.125 mg PO BID-QID PRN dyspepsia 06/16/24 Unknown Rx #60 tabs lidocaine 5 % topical patch 1 patch topical QDAY PRN pain #30 06/16/24 Unknown Rx ea linaclotide 290 mcg capsule 290 mcg PO QDAY #90 caps 06/16/24 Unknown Rx (Linzess) meclizine 25 mg tablet 25 mg PO BID PRN motion sickness 06/16/24 Unknown Rx #30 tabs aripiprazole 10 mg tablet 10 mg PO QDAY 07/06/24 Unknown History mupirocin 2 % topical ointment 1 applic topical BID #15 grams 07/06/24 Unknown Rx blood-glucose sensor (Dexcom G7 #1 ea 07/09/24 Unknown Rx Sensor device) blood-glucose transmitter (Dexcom #1 ea 07/09/24 Unknown Rx G6 Transmitter device) dulaglutide 1.5 mg/0.5 mL 1.5 mg (0.5 mL) subcut QWEEK 3 07/09/24 07/10/24 Rx subcutaneous pen injector months #6.5 mL (Trulicity) atogepant 60 mg tablet (Qulipta) 60 mg PO DAILY 07/14/24 Unknown History lamotrigine 200 mg tablet 200 mg PO BID 07/14/24 Unknown History sumatriptan succinate 100 mg tablet See Rx Instructions PO .COMPLEX #2 07/20/24 Unknown Rx tabs Allergy/AdvReac Type Severity Reaction Status Date / Time bee venom protein (honey Allergy Severe Anaphylaxis Verified 07/22/24 11:19 bee) (bee sting) adhesive tape Allergy Mild Rash Verified 07/22/24 11:19 latex Allergy Mild Rash Verified 07/22/24 11:19 Iodinated Contrast Media Allergy Hives Verified 07/22/24 11:19 nitrofurantoin (From Allergy Other Verified 07/22/24 11:19 Macrobid) ondansetron (From Zofran) Allergy Hives Verified 07/22/24 11:19 propranolol Allergy Angioedema Verified 07/22/24 11:19 haloperidol AdvReac mood issues Verified 07/22/24 11:19 Family History Other Autoimmune disorder Bleeding disorder Breast cancer CVA (cerebral vascular accident) Colon cancer Diabetes Heart disease Hypertension Myocardial infarction Ovarian cancer Thyroid disorder Surgical History Port-A-Cath in place H/O hernia repair H/O wisdom tooth extraction H/O oophorectomy Hx of cholecystectomy H/O tubal ligation Social History adopted: No household members: children and none number of children: 2 current occupational status: unemployed pets and animals: No sexually active: No Smoking Status: Never smoker alcohol intake: never substance use type: does not use caffeine: No frequency: 3-4 times per week do you feel safe at home: Yes ROS Constitutional Constitutional: Reports systems reviewed and no addt'l complaints, except as documented Eyes Eyes: Reports systems reviewed and no addt'l complaints, except as documented ENT HEENT: Reports systems reviewed and no addt'l complaints, except as documented Cardiovascular Cardiovascular: Reports systems reviewed and no addt'l complaints, except as documented Respiratory/Chest Respiratory/Chest: Reports systems reviewed and no addt'l complaints, except as documented Vital Signs Vital Signs Vital Signs: 07/22/24 11:21 07/22/24 11:21 07/22/24 12:11 Temperature 97.4 F L 97.4 F L Temperature Source Temporal Pulse Rate 116 H 116 H Respiratory Rate 16 16 Respiratory Pattern Normal Blood Pressure 153/94 H 153/94 H Blood Pressure Mean 113 Blood Pressure Source Monitor Blood Pressure Position Semi-Fowlers Blood Pressure Location Right Arm Pulse Ox 100 100 Oxygen Delivery Method Room Air Weight Weight: 222 lb 10.67 oz Body Mass Index (BMI) 42.0 Physical Exam Const alert, oriented x3 and no apparent distress Results Lab / Micro Data Labs: Laboratory Results - last 24 hr 07/22/24 11:26: POC Glucose 134 H Assessment & Plan Assessment/Plan (1) Difficult intravenous access: PLAN: Plan The patient is a 34-year-old female who has difficult IV access. She presents today to have a Mediport placed. We discussed this preoperatively in the office including the risks benefits and alternatives. She wishes to proceed. This will begin momentarily Charges/Coding Visit Charges Inpatient E&M: 68308 Init Hosp L1
[2024-07-22] MEDS: Cefazolin 2 GM in Syringe IV (12:50)
[2024-07-22] MEDS: Lidocaine 1% /Epi 1:100 (20ml) 20 ML Vial (13:10)
[2024-07-22] MEDS: Bupivacaine Mpf 0.5% 30 ML VIAL (13:10)
--- NOTE | 2024-07-22 14:07 | DCINST_ITS ---
Discharge Instructions Diet Discharge Diet: Light diet - advance as tolerated Activity Discharge Activity: Return to Normal Activity and May Shower May shower in (days): 1 Ice area for (Minutes): 30 Dressing / Incision Call your doctor if your incision/area has: Continuous Slow Oozing, Sudden Increased Bleeding, Increased Pain/ Swelling, Increased Redness, Foul Smelling Discharge and Swelling at the incision site Call your doctor if you observe: Fever of 101 or Higher Remove Dressing in: 3 days Cleanse incision/area with: Soap & Water Follow Up Care Please Follow Up With: Artur Shafer MD When: As needed Test Results: Test results from this visit will be discussed in further detail at your follow- up appointment, if applicable. Discharge Plan Admission Primary Reason for Your Visit: Mediport placement Attending Provider: Artur Shafer Primary Care Provider: Erika Ware Instructions Print Language: Chinese Discharge Orders/Prescriptions Prescriptions: New oxycodone-acetaminophen [Percocet] 5-325 mg tablet 1 tab PO Q8H PRN (Reason: pain) 2 Days Qty: 5 0RF Continued famotidine 20 mg tablet 20 mg PO QDAY pantoprazole 40 mg tablet,delayed release (DR/EC) 40 mg PO QDAY buprenorphine-naloxone 8-2 mg film 1 film sublingual DAILY Rx Instructions: weaning LAST DOSE 07/16/24 zolpidem 10 mg tablet 10 mg PO QHS PRN (Reason: sleep) docusate sodium [Colace] 100 mg capsule 100 mg PO DAILY Qty: 90 0RF cetirizine 10 mg tablet 10 mg PO DAILY PRN (Reason: allergy symptoms) Qty: 90 1RF gabapentin 100 mg capsule 200 mg PO TID 30 Days Qty: 180 2RF (DME) FreeStyle Sarai 2 Plus Sensor Device See Rx Instructions .Route Qty: 1 5RF Rx Instructions: As directed aripiprazole 10 mg tablet 10 mg PO QDAY mupirocin 2 % ointment 1 applic topical BID Qty: 15 1RF sumatriptan succinate 100 mg tablet See Rx Instructions PO .COMPLEX Qty: 2 0RF Rx Instructions: take 1 tab at onset of headache; if no relief, may repeat 1 tab after at least 2 hrs; max = 2 tabs/24 hrs PO lamotrigine 200 mg tablet 200 mg PO BID Qulipta 60 mg tablet 60 mg PO DAILY sumatriptan succinate 6 mg/0.5 mL pen injector 6 mg SUBCUT Q12H Qty: 1 2RF alcohol swabs Pads, Medicated 1 pad topical DAILY Qty: 200 0RF (DME) OneTouch Verio test strips Strip See Rx Instructions .Route Qty: 100 0RF Rx Instructions: Use one strip once per day to check blood glucose level (DME) lancets [OneTouch UltraSoft 2 Lancet] 30 gauge misc See Rx Instructions .Route Qty: 200 0RF Rx Instructions: Use once daily to check blood glucose level (DME) Dexcom G7 [employer] Assistant Misc See Rx Instructions .Route Qty: 1 5RF Rx Instructions: As directed Linzess 290 mcg capsule 290 mcg PO QDAY Qty: 90 0RF hyoscyamine sulfate 0.125 mg tablet 0.125 mg PO BID-QID PRN (Reason: dyspepsia) Qty: 60 1RF acetaminophen [Tylenol Extra Strength] 500 mg tablet 1,000 mg PO Q8 PRN (Reason: fever or pain) Qty: 90 2RF meclizine 25 mg tablet 25 mg PO BID PRN (Reason: motion sickness) Qty: 30 1RF lidocaine 5 % adhesive patch,medicated 1 patch topical QDAY PRN (Reason: pain) Qty: 30 3RF Rx Instructions: leave on most painful area for up to 12 hrs (DME) Dexcom G7 Sensor Device See Rx Instructions .Route Qty: 1 5RF Rx Instructions: As directed (DME) Dexcom G6 Transmitter Device See Rx Instructions .Route Qty: 1 5RF Rx Instructions: As directed Trulicity 1.5 mg/0.5 mL pen injector 1.5 mg subcut QWEEK 90 Days Qty: 6.5 1RF Referrals / Follow Up: Erika Ware MD [Primary Care Provider] - Disposition Disposition (needs filled in before D/C Order can be placed): Home, Self Care
--- NOTE | 2024-07-22 14:09 | PCM.POST.ANE ---
Anesthesia: Postop Eval I Current Vital Signs Temperature: 99.1 F Pulse Rate: 120 Blood Pressure: 133/84 Respiratory Rate: 14 Pulse Ox: 99 Oxygen Delivery Method: Room Air Assessment Airway patent: Yes Spontaneous unlabored respirations: Yes nausea: No Vomiting: No Anesthesia Complication: No Fluid Hydration Crystalloid volume administer (ml): 100 Total IV fluid infused: 100 Progress Note Anesthesia document: Postop Eval 1 completed: Yes
--- NOTE | 2024-07-22 14:12 | RAD_ITS ---
STUDY: X-RAY CHEST REASON FOR EXAM: Female, 34 years old. Port placement TECHNIQUE: Single AP portable view of the chest. COMPARISON: Comparison is made with prior study dated November 01, 2023. FINDINGS: A right-sided Port-A-Cath has been installed. The tip is in the midportion of the superior vena cava. Loop recorder device is seen overlying the left side of the heart. The lungs are clear and expanded. There is no demonstrated pleural abnormality. Normal size heart. Normal mediastinum and teja. Normal visualized pulmonary arteries. Normal visualized aortic arch and descending thoracic aorta. Normal visualized thoracic spine. Normal visualized ribs, clavicles, and shoulders. There is no demonstrated abnormality of the visualized soft tissue structures of the upper abdomen. RAD/CXR for Line Placement IMPRESSION: The tip of the right-sided portacatheter is in the midportion of the superior vena cava. Electronically Signed: Abdulaziz Chicas MD at 14:40 EST ,
--- NOTE | 2024-07-22 14:13 | PCM.OPRPT ---
Problems Associated Problem List Diagnoses (1) Difficult intravenous access: Procedures Cardiovascular CF Procedures [id number]: [id number] Insert tunneled cv cath Operative Report (Standard) Operative Information Date of Procedure: 07/22/24 Pre-Operative Diagnosis: Difficult venous access Post-Operative Diagnosis: Same Surgery/Procedure Performed: Ultrasound assisted right internal jugular Mediport placement with C arm environmental health technician: No Type of Anesthesia: Local and MAC RN Documented Start/Stop Times: Operation Date: 07/22/24 12:45 Case Time Into Pre-Op 07/22/24 11:02 Out of Pre-Op 07/22/24 12:44 Anesthesia Start 07/22/24 12:50 Into Room 07/22/24 12:50 Procedure Start 07/22/24 13:10 Procedure End 07/22/24 13:58 Anesthesia End 07/22/24 14:04 Out of Room 07/22/24 14:04 Into Recovery 07/22/24 14:06 Procedure Start Time: 13:10 Procedure Stop Time: 13:58 Select all DRAINS/GRAFTS/IMPLANTS that apply: Implanted device Implanted device details: PowerPort implantable port reference [id number] Lot R [id number] Special Medications: 2 g Ancef IV Estimated Blood Loss: 15 mL Specimen collected: No Description of surgery: The patient is a 34-year-old female recently seen through the office for difficult IV access. She frequently gets IV infusions for migraine headaches. She has had a Mediport in the past but this became infected and was removed years ago. She is having increasing problems with IV access and a Mediport placement was requested. In the office we discussed the details of the planned procedure including the risks benefits and alternatives. And she wished to proceed. The patient was brought to the operating room today following informed consent. Preoperative antibiotics were given and a timeout was performed. She was placed supine on the operative table with arms comfortably at her sides. A MAC anesthesia was induced. Once adequately anesthetized, an axillary roll was placed between her shoulder blades. She was placed in mild Trendelenburg positioning. Her arms were comfortably placed at her side the right neck and upper chest were then prepped and draped in the usual manner. Local anesthetic was initially placed in the right periclavicular area as my initial approach was to place the port as a subclavian access. Several passes were performed but I was unable to successfully gain access to the right subclavian vein. The artery was encountered at 1 point. Manual pressure was held for several minutes. After this I converted to a right IJ approach under ultrasound. The right IJ vein was identified with the ultrasound. Additional local anesthetic was infiltrated into this area. Then using the supplied needle and syringe I was then able to gain access to the right IJ vein. The blood return was a dark red and nonpulsatile return. The guidewire was then threaded through the aperture and the needle. This was then secured to the drapes using a hemostat. C-arm was used to confirm positioning of the guidewire and the venous side of the circulation. Next the pocket was created for the port hub placement. This was marked out using a marking pen and local anesthetic was injected. #15 blade was then used to make a small skin incision. Bovie electrocautery was then used dissect down through subcutaneous tissues down to the level of the chest wall. A subcutaneous pocket was then created at this level. The tubing was then attached to the tunneling device and this was threaded up through the larger incision and was brought out through the smaller incision at the entry point of the guidewire.. The tubing was then cut to about 21 cm and this was attached to the hub. The hub was then affixed to the underlying chest wall using Prolene suture x 2. Next the dilator and tear-away sheath were then threaded over the guidewire. The dilator and guidewire were then removed thus leaving the sheath in place. The free end of the tubing was then threaded down the sheath as the sheath was extracted. Initially this was tested with saline and there was resistance to flow. C arm seem to indicate an acute bend in the tubing in the neck. This was rectified and upon doing so the port gabriele and flushed very easily with good blood return. Next the incision was closed using 3-0 Vicryl. 5-0 Vicryl was then used to close the skin at both locations. Skin glue was applied to both incisions. A large OpSite was placed over the chest incision along with a sterile 2 x 2. The patient was then awakened from anesthesia and taken to PACU in good condition Surgical Findings: See operative note Complications Complications: No Admit VTE Documentation VTE Present on Admission: No VTE Mechan Device Prophylaxis: SCD's VTE Pharm Prophylaxis ordered?: No
--- NOTE | 2024-07-22 14:28 | POSTOPAN2_ITS ---
Anesthesia Postop Eval I Sum Postop Eval Completion status Anesthesia document: Postop Eval 1 completed: Yes Anesthesia Postop Eval I Summary Anesthesia Postop Eval I Summary: Anesthesia Postop Eval I: Assessment Summary Airway patent Yes 07/22/24 14:10 SCREW MACHINE [email or web address] Spontaneous unlabored Yes 07/22/24 14:10 SCREW MACHINE [email or web address] respirations Mental status nausea No 07/22/24 14:10 SCREW MACHINE [email or web address] Vomiting No 07/22/24 14:10 SCREW MACHINE [email or web address] Anesthesia Postop Eval I: Fluid Summary Crystalloid volume administer 100 07/22/24 14:10 SCREW MACHINE [email or web address] (ml) Colloids volume administered ( ml) Blood Product volume administered (ml) Total IV fluid infused 100 07/22/24 14:10 SCREW MACHINE [email or web address] Anesthesia Postop Eval I: Summary Notes Anesthesia Complication No 07/22/24 14:10 SCREW MACHINE [email or web address] Anesthesia Complication Comment: Post-operative progress note Anesthesia: Postop Eval II Evaluation Mental status: Awake Pain Level: 0 nausea: No Vomiting: No
--- NOTE | 2024-07-22 14:28 | PCM.POSTANE2 ---
Anesthesia Postop Eval I Sum Postop Eval Completion status Anesthesia document: Postop Eval 1 completed: Yes Anesthesia Postop Eval I Summary Anesthesia Postop Eval I Summary: Anesthesia Postop Eval I: Assessment Summary Airway patent Yes 07/22/24 14:10 STEREO EQUIPMENT [email or web address] Spontaneous unlabored Yes 07/22/24 14:10 STEREO EQUIPMENT REPAIRER.[email or web address] respirations Mental status nausea No 07/22/24 14:10 STEREO EQUIPMENT REPAIRER.[email or web address] Vomiting No 07/22/24 14:10 STEREO EQUIPMENT [email or web address] Anesthesia Postop Eval I: Fluid Summary Crystalloid volume administer 100 07/22/24 14:10 STEREO EQUIPMENT [email or web address] (ml) Colloids volume administered ( ml) Blood Product volume administered (ml) Total IV fluid infused 100 07/22/24 14:10 STEREO EQUIPMENT REPAIRER.[email or web address] Anesthesia Postop Eval I: Summary Notes Anesthesia Complication No 07/22/24 14:10 STEREO EQUIPMENT REPAIRER.[email or web address] Anesthesia Complication Comment: Post-operative progress note Anesthesia: Postop Eval II Evaluation Mental status: Awake Pain Level: 0 nausea: No Vomiting: No
== END 2024-07-22 15:35 | disposition home or self-care (01) ==
LOC: SDC 10:39 → AC 10:41
PROVIDERS: PCP Internal Medicine; Referring Provider Surgery; Visit Provider Surgery
PROC: (CPT 36561; principal; 2024-07-22 12:30)
DX: Z45.2 Encounter for adjustment and management of vascular access device (principal); E11.40 Type 2 diabetes mellitus with diabetic neuropathy, unspecified; K21.9 Gastro-esophageal reflux disease without esophagitis; G43.909 Migraine, unspecified, not intractable, without status migrainosus
CPT/HCPCS: 36561; 00532; 71045; 77001; 82962; A4216; C1788; J2405

== ENCOUNTER 2024-07-31 17:47 | Emergency (ER) | payer MEDICAID, SELFPAY ==
[2024-07-31 17:49] VITALS: BP 142/100; PULSE 96; RESP 16; TEMP 36.8; O2SAT 98; BMI 41.8
--- NOTE | 2024-07-31 18:14 | EDS_ITS ---
<Statement entered by Amol Hatch DO - 08/01/24 00:41> patient was seen and examined with physician promotional advertising assistant Carrie All components of the history and physical confirmed and agreed. History of present illness and physical exam: Patient is a 34-year-old female with a past medical history of anxiety, MRSA, substance abuse, GERD, factor V Leiden, PCOS, DVT, TIA who presented to the emergency department with a chief complaint of facial swelling and tingling along her right side of her face. She states that she has a headache she has history of migraine headaches and was recently seen by neurologist and prescribed Geodon about 3 days ago. She states that after taking this she had bilateral swelling around her eyes. States that they treated this as an allergic reaction and placed her on a Medrol Dosepak. Patient states that her swelling around her eyes improved however once again she is complaining of right-sided facial swelling. States that about a week ago she had a right sided chest port placed for the ease of IV access for migraine infusions. Patient denies any blood thinner medications despite history of DVT PE with factor V Leiden secondary to she sleepwalks and hurts herself. Review of systems: Agree with above Physical exam: Agree with above MDM Patient is a 34-year-old female who presented to the emerged part with chief complaint of right-sided facial swelling. On the differential diagnose includes but limited to pneumonia, infection, superior vena cava syndrome, clots near the port. Neck. Once workup is obtained reviewed she will be reevaluated. Patient CBC was reviewed showed no evidence leukocytosis white blood count normal at 6.6, hemoglobin 10.7, plate count normal at 283. Patient sodium normal 138, potassium normal 3.4, creatinine normal at 0.59. Patient's troponin was less than 3. We did discuss with radiology and they would recommend getting a CTA of the neck scan up through her ears bilaterally this was ordered. Patient does have a iodine allergy therefore she will be given Benadryl and Solu-Medrol prior to the CTA of the head neck. Per ultra sound technician they are recommending injecting dye through a peripheral IV rather than the port to get a better view therefore patient was brought back to the emergency department for ultrasound-guided line as she is a difficult stick. They were unable to get this and the patient is refusing any more sticks or attempts. We did discuss with the patient the importance of obtaining this study as she could have blood clots in her neck secondary to the port and her hypercoagulable state and we cannot rule this out without the scan. She states that she wants to go home and she does not want to scan anymore she states that she will leave AGAINST MEDICAL ADVICE. We discussed that this could lead to permanent dysfunction of 4, permanent disability or even she verbalized understanding of this and would leave AGAINST MEDICAL ADVICE. She was advised to return with worsening symptoms or concerns. All question concerns answered bedside. Plan: Final impression: Right sided facial swelling Disposition: Patient will leave AGAINST MEDICAL ADVICE Supervising attending attestation: Amol Hatch D.O. HPI History of Present Illness Chief Complaint: Numb/Ting Narrative Narrative: 34-year-old female states about 20 minutes prior to arrival she developed tingling in her right ear, cheek, lips and tongue. The area feels swollen to touch. She also reports a headache on the same side. She is concerned maybe this could be allergic reaction. She sees a neurologist for chronic migraines and states 3 days ago they prescribed p.o. Geodon and after taking it she had bilateral periorbital swelling. They treated her as an allergic reaction with the Medrol Dosepak. The periorbital swelling has resolved and she has not taken any more Geodon. She denies any other new exposures. She states 1 week ago she had a right-sided chest port placed for ease of IV access for migraine infusions. She also has a history of clotting disorder and DVT/PE but is not on blood thinners because she sleepwalks and injures herself. [facility] Medical History Implantable loop recorder present Wears glasses Anxiety MRSA infection Substance abuse History of steroid therapy Diabetes Injury of head and neck History of IBS Gastric reflux Open wound of right elbow Leg wound, right Difficult intravenous access Neuropathy Candidiasis Recurrent pulmonary emboli delivery delivered Arthritis GERD (gastroesophageal reflux disease) Head injury Chest pain Prolonged QT interval Diabetes PCOS (polycystic ovarian syndrome) PTSD (post-traumatic stress disorder) Factor V Leiden Anxiety Depression Kidney stones Pulmonary embolism DVT (deep venous thrombosis) TIA (transient ischemic attack) Ovarian cyst Home Medications ?Medication ?Instructions ?Recorded ?Last Taken ?Type sumatriptan succinate 6 mg/0.5 mL 6 mg (0.5 mL) subcut Q12H MIGRAINE 01/02/24 Unknown Rx subcutaneous pen injector #1 mL alcohol swabs 1 pad topical DAILY #200 ea 01/21/24 Unknown Rx blood sugar diagnostic (OneTouch #100 ea 01/21/24 Unknown Rx Verio test strips) lancets 30 gauge (OneTouch #200 ea 01/23/24 Unknown Rx UltraSoft 2 Lancet) blood-glucose sensor (FreeStyle #1 ea 06/08/24 Unknown Rx Sarai 2 Plus Sensor device) buprenorphine 8 mg-naloxone 2 mg 1 film sublingual DAILY 06/08/24 Unknown History sublingual film cetirizine 10 mg tablet 10 mg PO DAILY PRN allergy 06/08/24 Unknown Rx symptoms #90 tabs gabapentin 100 mg capsule 200 mg (2 x 100 mg) PO TID 1 month 06/08/24 Unknown Rx #180 caps zolpidem 10 mg tablet 10 mg PO QHS PRN sleep 06/08/24 Unknown History blood-glucose meter,continuous #1 ea 06/09/24 Unknown Rx (Dexcom G7 Corporate Event Planner) acetaminophen 500 mg tablet 1,000 mg (2 x 500 mg) PO Q8 PRN 06/16/24 Unknown Rx (Tylenol Extra Strength) fever or pain #90 tabs hyoscyamine sulfate 0.125 mg tablet 0.125 mg PO BID-QID PRN dyspepsia 06/16/24 Unknown Rx #60 tabs lidocaine 5 % topical patch 1 patch topical QDAY PRN pain #30 06/16/24 Unknown Rx ea linaclotide 290 mcg capsule 290 mcg PO QDAY #90 caps 06/16/24 Unknown Rx (Linzess) meclizine 25 mg tablet 25 mg PO BID PRN motion sickness 06/16/24 Unknown Rx #30 tabs aripiprazole 10 mg tablet 10 mg PO QDAY 07/06/24 Unknown History mupirocin 2 % topical ointment 1 applic topical BID #15 grams 07/06/24 Unknown Rx blood-glucose sensor (Dexcom G7 #1 ea 07/09/24 Unknown Rx Sensor device) blood-glucose transmitter (Dexcom #1 ea 07/09/24 Unknown Rx G6 Transmitter device) dulaglutide 1.5 mg/0.5 mL 1.5 mg (0.5 mL) subcut QWEEK 3 07/09/24 07/10/24 Rx subcutaneous pen injector months #6.5 mL (Trulicity) atogepant 60 mg tablet (Qulipta) 60 mg PO DAILY 07/14/24 Unknown History lamotrigine 200 mg tablet 200 mg PO BID 07/14/24 Unknown History docusate sodium 100 mg capsule 100 mg PO DAILY #90 caps 07/29/24 Unknown Rx (Colace) famotidine 20 mg tablet 20 mg PO QDAY #90 tabs 07/29/24 Unknown Rx ketorolac 10 mg tablet 10 mg PO Q8H PRN pain #12 tabs 07/29/24 Unknown Rx pantoprazole 40 mg tablet,delayed 40 mg PO QDAY #90 tabs 07/29/24 Unknown Rx release sumatriptan succinate 100 mg tablet See Rx Instructions PO .COMPLEX 07/29/24 Unknown Rx #12 tabs Allergy/AdvReac Type Severity Reaction Status Date / Time bee venom protein (honey Allergy Severe Anaphylaxis Verified 07/31/24 17:57 bee) (bee sting) ziprasidone (From Geodon) Allergy Severe facial Verified 07/31/24 17:57 swelling adhesive tape Allergy Mild Rash Verified 07/31/24 17:57 latex Allergy Mild Rash Verified 07/31/24 17:57 Iodinated Contrast Media Allergy Hives Verified 07/31/24 17:57 nitrofurantoin (From Allergy Other Verified 07/31/24 17:57 Macrobid) ondansetron (From Zofran) Allergy Hives Verified 07/31/24 17:57 propranolol Allergy Angioedema Verified 07/31/24 17:57 haloperidol AdvReac mood issues Verified 07/31/24 17:57 Family History Other Autoimmune disorder Bleeding disorder Breast cancer CVA (cerebral vascular accident) Colon cancer Diabetes Heart disease Hypertension Myocardial infarction Ovarian cancer Thyroid disorder Surgical History Port-A-Cath in place H/O hernia repair H/O wisdom tooth extraction H/O oophorectomy Hx of cholecystectomy H/O tubal ligation Social History adopted: No household members: children and none number of children: 2 current occupational status: unemployed pets and animals: No sexually active: No Smoking Status: Never smoker alcohol intake: never substance use type: does not use caffeine: No frequency: 3-4 times per week do you feel safe at home: Yes ROS ROS ED ROS Narrative Constitutional: Negative for fever, chills, malaise. ENT: Negative for sore throat, ear pain, rhinorrhea. CVS: Negative for chest pain. Respiratory: Negative for shortness of breath. GI: Negative for abdominal pain, nausea, vomiting. EXAM Physical Exam Narrative Exam Narrative: CONST: Patient sitting in no acute distress. EYES: Normal inspection. ENT: Right cheek appears flushed and mildly swollen. There is no periorbital swelling or swelling of the nose lips or tongue. Airway patent. Normal mastoid, normal right TM. NECK: Normal inspection. No appreciable swelling, trachea midline. RESP: No respiratory distress, CTAB. Palpable Mediport in right chest wall. There is overlying contact irritation from the adhesive but no signs of cellulitis, warmth or tenderness. CVS: Regular rate and rhythm, no murmur, no gallop. SKIN: Color normal, no rash, warm, dry, intact. EXTREMITIES: Normal appearance, no pedal edema. NEURO: Alert and answering questions appropriately. PSYCH: Normal affect. Const Vital Signs: 07/31/24 17:49 07/31/24 19:16 Temperature 98.3 F Temperature Source Oral Pulse Rate 96 Respiratory Rate 16 Blood Pressure 142/100 H 125/79 H Blood Pressure Mean 114 94 Pulse Ox 98 Oxygen Delivery Method Room Air MDM MDM MDM Narrative Medical decision making narrative: 34-year-old female presents with right-sided facial swelling and redness. 1 week ago she had a right-sided Mediport placed. She appears in no distress. Hemodynamically stable. The mild swelling of her face mainly involves the cheek area. There is no angioedema. There is no involvement of the ear including tympanic membranes and mastoids. Her right MediPort appears normal without infection there is no appreciable swelling of her neck. I am concerned with her history of clotting disorder not on anticoagulants that a blood clot needs to be ruled out with recent Mediport placement. Blood work was ordered which overall is unremarkable. Patient was given IV Benadryl and Solu-Medrol in preparation to have a CTA of the chest as she has had hives in the past with IV dye. I spoke with the ultra sound technician who recommended injecting the dye through peripheral IV rather than her port to get a better view of the area and they would scan the chest all the way up through the ears. The nurse attempted to place an ultrasound-guided line without success and patient refuses to have any more attempts. I thoroughly discussed with the patient and her parents at bedside the risks of not completing the test including that we cannot rule out a blood clot which if left untreated could result in permanent dysfunction of her port, permanent disability or . Patient expressed understanding and is leaving AGAINST MEDICAL ADVICE. She was encouraged to return at any time for reevaluation and was discharged. Lab Data Attestation: I reviewed the patient's lab results. Labs: Laboratory Results - last 24 hr 07/31/24 19:50 WBC 6.6 RBC 3.84 L Hgb 10.7 L Hct 33.2 L MCV 86.5 MCH 27.9 MCHC 32.2 RDW Std Deviation 45.6 H RDW Coeff of Millie 14.4 Plt Count 283 MPV 8.4 Immature Gran % (Auto) 0.300 Neut % (Auto) 51.7 Lymph % (Auto) 40.5 [place] % (Auto) 5.1 Eos % (Auto) 2.1 Baso % (Auto) 0.3 Absolute Neuts (auto) 3.4 Absolute Lymphs (auto) 2.69 Nucleated RBC % 0 Sodium 138 Potassium 3.4 L Chloride 106 Carbon Dioxide 28.0 Anion Gap 5 BUN 10 Creatinine 0.59 Estim Creat Clear Calc 148.85 Est GFR (MDRD) Af Amer 151 Est GFR (MDRD) Non-Af 125 BUN/Creatinine Ratio 16.9 Glucose 121 H Calcium 9.5 Troponin I High Sens < 3 L Discharge Plan Triage Chief Complaint: Numb/Ting ED Midlevel Provider: Carrie Singh ED Provider: Amol Hatch Dx/Rx/DC Orders Clinical Impression: Right facial swelling, History of blood clots Prescriptions: No Action buprenorphine-naloxone 8-2 mg film 1 film sublingual DAILY Rx Instructions: weaning LAST DOSE 1/2/25 zolpidem 10 mg tablet 10 mg PO QHS PRN (Reason: sleep) cetirizine 10 mg tablet 10 mg PO DAILY PRN (Reason: allergy symptoms) Qty: 90 1RF gabapentin 100 mg capsule 200 mg PO TID 30 Days Qty: 180 2RF (DME) FreeStyle Sarai 2 Plus Sensor Device See Rx Instructions .Route Qty: 1 5RF Rx Instructions: As directed aripiprazole 10 mg tablet 10 mg PO QDAY mupirocin 2 % ointment 1 applic topical BID Qty: 15 1RF famotidine 20 mg tablet 20 mg PO QDAY Qty: 90 0RF pantoprazole 40 mg tablet,delayed release (DR/EC) 40 mg PO QDAY Qty: 90 0RF docusate sodium [Colace] 100 mg capsule 100 mg PO DAILY Qty: 90 0RF sumatriptan succinate 100 mg tablet See Rx Instructions PO .COMPLEX Qty: 12 2RF Rx Instructions: take 1 tab at onset of headache; if no relief, may repeat 1 tab after at least 2 hrs; max = 2 tabs/24 hrs PO ketorolac 10 mg tablet 10 mg PO Q8H PRN (Reason: pain) Qty: 12 0RF Rx Instructions: maximum total duration of 5 days from all oral, intranasal, or parenteral formulations lamotrigine 200 mg tablet 200 mg PO BID Qulipta 60 mg tablet 60 mg PO DAILY sumatriptan succinate 6 mg/0.5 mL pen injector 6 mg SUBCUT Q12H Qty: 1 2RF alcohol swabs Pads, Medicated 1 pad topical DAILY Qty: 200 0RF (DME) OneTouch Verio test strips Strip See Rx Instructions .Route Qty: 100 0RF Rx Instructions: Use one strip once per day to check blood glucose level (DME) lancets [OneTouch UltraSoft 2 Lancet] 30 gauge misc See Rx Instructions .Route Qty: 200 0RF Rx Instructions: Use once daily to check blood glucose level (DME) Dexcom G7 Corporate Event Planner Misc See Rx Instructions .Route Qty: 1 5RF Rx Instructions: As directed Linzess 290 mcg capsule 290 mcg PO QDAY Qty: 90 0RF hyoscyamine sulfate 0.125 mg tablet 0.125 mg PO BID-QID PRN (Reason: dyspepsia) Qty: 60 1RF acetaminophen [Tylenol Extra Strength] 500 mg tablet 1,000 mg PO Q8 PRN (Reason: fever or pain) Qty: 90 2RF meclizine 25 mg tablet 25 mg PO BID PRN (Reason: motion sickness) Qty: 30 1RF lidocaine 5 % adhesive patch,medicated 1 patch topical QDAY PRN (Reason: pain) Qty: 30 3RF Rx Instructions: leave on most painful area for up to 12 hrs (DME) Dexcom G7 Sensor Device See Rx Instructions .Route Qty: 1 5RF Rx Instructions: As directed (DME) Dexcom G6 Transmitter Device See Rx Instructions .Route Qty: 1 5RF Rx Instructions: As directed Trulicity 1.5 mg/0.5 mL pen injector 1.5 mg subcut QWEEK 90 Days Qty: 6.5 1RF Primary Care Provider: Erika Ware Referrals: Erika Ware MD [Primary Care Provider] - Activity Restrictions/Additional Instructions: You are leaving AGAINST MEDICAL ADVICE. You do not have the CAT scan done to rule out blood clots over the area of your port and neck. Risks are that this could worsen and you could develop permanent disability or if untreated. Please return for reevaluation at any time or if symptoms worsen. Print Language: Divehi Disposition Disposition: Home, Self Care
[2024-07-31 19:16] VITALS: BP 125/79
[2024-07-31] MEDS: MethylPREDNISolone 125 MG/2 ML Vial IV (19:55)
[2024-07-31] MEDS: DiphenhydrAMINE 50 MG/ML Syringe 25 MG IV (19:56)
[2024-07-31 20:08] LABS: Absolute Lymphocyte Count 2.69 X10^3/uL (0.83-4.51); Absolute Neutrophil Count 3.4 X10^3/uL (2.0-7.7); Basophil# 0.02 X10^3/uL; Basophil% 0.3 % (0-1); Eosinophil# 0.14 X10^3/uL; Eosinophils% 2.1 % (0-5); Hematocrit 33.2 % (37-47); Hemoglobin 10.7 g/dL (12.0-15.0); Lymphocyte # 2.69 X10^3/ul (0.83-4.51); Lymphocyte % 40.5 % (19-41); Mean Corp Hgb Conc 32.2 g/dL (32-36); Mean Corpuscular Hgb 27.9 pg (27.0-32.0); Mean Corpuscular Volume 86.5 fL (81-99); Mean Platelet Vol. 8.4 fl (6.2-12.0); Monocyte# 0.34 X10^3/uL; Monocyte% 5.1 % (0-10); NRBC Flagged by Analyzer 0 % (0-5); Neutrophil # 3.43 X10^3/uL (2.7-7.7); Neutrophil % 51.7 % (47-70); Platelet Count 283 K/mm3 (150-450); RBC Distribution Width CV 14.4 % (11.6-14.6); RBC Distribution Width SD 45.6 fl (35.1-43.9); Red Blood Count 3.84 M/mm3 (4.2-5.4); White Blood Count 6.6 K/mm3 (4.4-11.0)
[2024-07-31 20:26] LABS: Anion Gap 5 (5-15); BUN 10 mg/dL (7-18); BUN/Creat Ratio 16.9 RATIO (10-20); Calcium,Total 9.5 mg/dL (8.5-10.1); Chloride 106 mmol/L (98-107); Creatinine, Serum 0.59 mg/dL (0.55-1.02); EST Glomerular Filtration Rate 125 mL/min (>60); Est Glom Filt Rate - Afr Amer 151 mL/min (>60); Estimated Creatinine Clearance 148.85 ml/min; Glucose 121 mg/dL (74-106); Potassium 3.4 mmol/L (3.5-5.1); Sodium Level 138 mmol/L (136-145); Troponin-I HS < 3 pg/mL (3.0-54.0)
[2024-07-31 21:00] VITALS: PULSE 88; RESP 16; O2SAT 97
[2024-07-31 21:55] VITALS: BP 125/79; PULSE 88; RESP 16; TEMP 36.8; O2SAT 97
== END 2024-07-31 22:10 | disposition home or self-care (01) ==
PROVIDERS: Physician Assistant; Emergency Provider Emergency Medicine; PCP Internal Medicine; Visit Provider Emergency Medicine
DX: R22.0 Localized swelling, mass and lump, head (principal); E11.40 Type 2 diabetes mellitus with diabetic neuropathy, unspecified; Z86.718 Personal history of other venous thrombosis and embolism; Z95.828 Presence of other vascular implants and grafts; K21.9 Gastro-esophageal reflux disease without esophagitis; D68.51 Activated protein C resistance; Z53.29 Procedure and treatment not carried out because of patient's decision for other reasons; Z79.899 Other long term (current) drug therapy; R20.0 Anesthesia of skin; R20.2 Paresthesia of skin
CPT/HCPCS: 36591; 80048; 84484; 85025; 96374; 96375; 99284; A4216

== ENCOUNTER 2024-08-01 11:50 | Emergency (ER) | payer MEDICAID, SELFPAY ==
[2024-08-01 11:51] VITALS: BP 157/88; PULSE 80; RESP 15; TEMP 36.1; O2SAT 97; BMI 41.9
--- NOTE | 2024-08-01 12:57 | RAD_ITS ---
INDICATION: port placment EXAMINATION/TECHNIQUE: X-RAY - XR Chest View COMPARISON: Prior study dated: 07/22/2024 FINDINGS: LINES/DEVICES: Right-sided Port-A-Cath with its tip in the superior vena cava. External loop recorder device overlying the left lower chest is again seen. LUNGS: No consolidation, edema or effusion. No pneumothorax. MEDIASTINUM AND CARDIOVASCULAR STRUCTURES: Cardiac silhouette not enlarged. Central airways and mediastinal contour are unremarkable. BONES AND SOFT TISSUES: Unremarkable. RAD/Chest 1 View (Portable) IMPRESSION: No radiographic evidence of acute cardiopulmonary disease. Electronically Signed: Sanju Orantes MD at 13:56 EST ,
[2024-08-01 14:21] VITALS: BP 157/88; PULSE 80; RESP 14; TEMP 36.1; O2SAT 97
--- NOTE | 2024-08-01 16:07 | EX.ED.DYSGE1 ---
HPI History of Present Illness Chief Complaint: Wound Check Informant: patient Narrative Narrative: 34-year-old female sent to the emergency department for evaluation of her chest port and facial neck pain. Patient had a port placed on 22 July of this year. This was performed by Dr. Shafer. Patient states she has developed pain along the right side of her neck up towards her ear and face. She was seen in the emergency department last night signed out AMA because they had difficulty getting a peripheral IV and did not wish any more IV attempts. Patient has a history of factor V but is not on any anticoagulation due to frequent injuries. No reported fevers. She states she is not concerned for infection. On-call surgeon Dr. Burrell did speak with me regarding the patient coming in. I spoke with the nurse who is caring for her today who notes that she cared for her last night. The patient did have the port accessed last night and it did draw appropriately. No reported fevers. She denies any dental pain gum swelling or ear drainage [facility] Medical History Implantable loop recorder present Wears glasses Anxiety MRSA infection Substance abuse History of steroid therapy Diabetes Injury of head and neck History of IBS Gastric reflux Open wound of right elbow Leg wound, right Difficult intravenous access Neuropathy Candidiasis Recurrent pulmonary emboli delivery delivered Arthritis GERD (gastroesophageal reflux disease) Head injury Chest pain Prolonged QT interval Diabetes PCOS (polycystic ovarian syndrome) PTSD (post-traumatic stress disorder) Factor V Leiden Anxiety Depression Kidney stones Pulmonary embolism DVT (deep venous thrombosis) TIA (transient ischemic attack) Ovarian cyst Home Medications ?Medication ?Instructions ?Recorded ?Last Taken ?Type sumatriptan succinate 6 mg/0.5 mL 6 mg (0.5 mL) subcut Q12H MIGRAINE 01/02/24 Unknown Rx subcutaneous pen injector #1 mL alcohol swabs 1 pad topical DAILY #200 ea 01/21/24 Unknown Rx blood sugar diagnostic (OneTouch #100 ea 01/21/24 Unknown Rx Verio test strips) lancets 30 gauge (OneTouch #200 ea 01/23/24 Unknown Rx UltraSoft 2 Lancet) blood-glucose sensor (FreeStyle #1 ea 06/08/24 Unknown Rx Sarai 2 Plus Sensor device) buprenorphine 8 mg-naloxone 2 mg 1 film sublingual DAILY 06/08/24 Unknown History sublingual film cetirizine 10 mg tablet 10 mg PO DAILY PRN allergy 06/08/24 Unknown Rx symptoms #90 tabs gabapentin 100 mg capsule 200 mg (2 x 100 mg) PO TID 1 month 06/08/24 Unknown Rx #180 caps zolpidem 10 mg tablet 10 mg PO QHS PRN sleep 06/08/24 Unknown History blood-glucose meter,continuous #1 ea 06/09/24 Unknown Rx (Dexcom G7 Client Success Director) acetaminophen 500 mg tablet 1,000 mg (2 x 500 mg) PO Q8 PRN 06/16/24 Unknown Rx (Tylenol Extra Strength) fever or pain #90 tabs hyoscyamine sulfate 0.125 mg tablet 0.125 mg PO BID-QID PRN dyspepsia 06/16/24 Unknown Rx #60 tabs lidocaine 5 % topical patch 1 patch topical QDAY PRN pain #30 06/16/24 Unknown Rx ea linaclotide 290 mcg capsule 290 mcg PO QDAY #90 caps 06/16/24 Unknown Rx (Linzess) meclizine 25 mg tablet 25 mg PO BID PRN motion sickness 06/16/24 Unknown Rx #30 tabs aripiprazole 10 mg tablet 10 mg PO QDAY 07/06/24 Unknown History mupirocin 2 % topical ointment 1 applic topical BID #15 grams 07/06/24 Unknown Rx blood-glucose sensor (Dexcom G7 #1 ea 07/09/24 Unknown Rx Sensor device) blood-glucose transmitter (Dexcom #1 ea 07/09/24 Unknown Rx G6 Transmitter device) dulaglutide 1.5 mg/0.5 mL 1.5 mg (0.5 mL) subcut QWEEK 3 07/09/24 07/10/24 Rx subcutaneous pen injector months #6.5 mL (Trulicity) atogepant 60 mg tablet (Qulipta) 60 mg PO DAILY 07/14/24 Unknown History lamotrigine 200 mg tablet 200 mg PO BID 07/14/24 Unknown History docusate sodium 100 mg capsule 100 mg PO DAILY #90 caps 07/29/24 Unknown Rx (Colace) famotidine 20 mg tablet 20 mg PO QDAY #90 tabs 07/29/24 Unknown Rx ketorolac 10 mg tablet 10 mg PO Q8H PRN pain #12 tabs 07/29/24 Unknown Rx pantoprazole 40 mg tablet,delayed 40 mg PO QDAY #90 tabs 07/29/24 Unknown Rx release sumatriptan succinate 100 mg tablet See Rx Instructions PO .COMPLEX 07/29/24 Unknown Rx #12 tabs Allergy/AdvReac Type Severity Reaction Status Date / Time bee venom protein (honey Allergy Severe Anaphylaxis Verified 08/01/24 11:51 bee) (bee sting) ziprasidone (From Geodon) Allergy Severe facial Verified 08/01/24 11:51 swelling adhesive tape Allergy Mild Rash Verified 08/01/24 11:51 latex Allergy Mild Rash Verified 08/01/24 11:51 Iodinated Contrast Media Allergy Hives Verified 08/01/24 11:51 nitrofurantoin (From Allergy Other Verified 08/01/24 11:51 Macrobid) ondansetron (From Zofran) Allergy Hives Verified 08/01/24 11:51 propranolol Allergy Angioedema Verified 08/01/24 11:51 haloperidol AdvReac mood issues Verified 08/01/24 11:51 Family History Other Autoimmune disorder Bleeding disorder Breast cancer CVA (cerebral vascular accident) Colon cancer Diabetes Heart disease Hypertension Myocardial infarction Ovarian cancer Thyroid disorder Surgical History Port-A-Cath in place H/O hernia repair H/O wisdom tooth extraction H/O oophorectomy Hx of cholecystectomy H/O tubal ligation Social History adopted: No household members: children and none number of children: 2 current occupational status: unemployed pets and animals: No sexually active: No Smoking Status: Never smoker alcohol intake: never substance use type: does not use caffeine: No frequency: 3-4 times per week do you feel safe at home: Yes ROS ROS ED Constitutional Constitutional ED: Denies chills or weight loss Eyes Eyes: Denies change in vision or diplopia ENT ENT ED: Reports other Details: Right neck facial ear pain ; Denies ear pain, rhinorrhea or sore throat Cardiovascular Cardiovascular: Denies chest pain, orthopnea, palpitations or racing heartbeat Respiratory/Chest Respiratory/Chest: Denies cough, dyspnea or orthopnea Gastrointestinal Gastrointestinal: Denies abdominal pain, diarrhea, nausea or vomiting Genitourinary Genitourinary ED: Denies dysuria, hematuria or urinary frequency Musculoskeletal Musculoskeletal: Denies arthralgias or myalgias Integumentary Denies abscess or rash Neurologic Neurologic: Denies headache(s) or weakness Psychiatric Psychiatric: Denies anxiety, depression, suicidal ideation or suicidal thoughts Endocrine Endocrinology: Denies polydipsia, polyphagia or polyuria Allergic/Immunologic Allergic/Immunologic ED: Denies mouth swelling, tongue swelling or urticaria EXAM Physical Exam Const Vital Signs: 08/01/24 11:51 08/01/24 14:21 08/01/24 14:21 Temperature 97 F L 97 F L Temperature Source Temporal Pulse Rate 80 80 Respiratory Rate 15 14 14 Blood Pressure 157/88 H 157/88 H Blood Pressure Mean 111 111 Pulse Ox 97 97 97 Oxygen Delivery Method Room Air Room Air Positive well nourished and well developed General Appearance ED: well developed HEENT Reports normocephalic, head/scalp atraumatic and moist mucous membranes Eyes PERRL and EOMs intact bilaterally Neck no lymphadenopathy, supple and no JVD Neck Narrative: I do not palpate any obvious thrombosis. I do not see any significant swelling of the neck or face or at the port site. There is no significant erythema consistent with cellulitis. I do not appreciate JVD. The incision appears clean dry and intact. Resp normal respiratory effort and clear to auscultation bilaterally Cardio regular rate, regular rhythm and no murmurs GI normal to inspection, nondistended, normoactive bowel sounds and non-tender Palpation: soft Back/Spine no CVA tenderness and normal ROM Extremity normal to inspection General Extremety ED: Negative for edema General Extremity: Negative for edema Neuro oriented x3 and CN's II-XII intact bilaterally Sensorium / Orientation: alert Motor Exam: strength 5/5 throughout Psych mental status grossly normal Mood & Affect: Negative for depressed or tearful Skin no rashes or lesions noted and no wounds MDM MDM MDM Narrative Medical decision making narrative: Differential diagnosis includes but not limited to internal and external jugular vein thrombosis infection catheter malfunction dental infection subcutaneous emphysema pneumothorax I performed a bedside ultrasound and I can see that the internal jugular is compressible. The external jugular is mostly compressible but I cannot definitively say if there is or is not any clot in the external jugular. My independent interpretation of the chest x-ray is no pneumothorax adequate and normal placement of the port. There is no been no migration of the port cephalad. I spoke with Dr. Burrell as well as the patient. Patient is very irritated that she has been under evaluation for over an hour and does not have a plan. I explained to her that we do not have vascular ultrasound at this time to perform the duplex that we could bring her back tomorrow morning to have it performed and add in Lovenox for safety. She states she will not be coming back to this institution 3 days in a row. She states that the staff and myself have been nothing but rude to her and that she does not understand if this is a serious condition why it is not being addressed immediately. I informed her that is a very common situation to rule out venous thrombosis by prophylactically anticoagulating the patient and have them come back when ultrasound is available. She states that she is not going to do that and would like to leave. I updated the patient's on-call surgeon. History & Record Review Discussion w/independent historian: Patient Radiography Diagnostic Testing: Clinical Impression(s) from Imaging Studies Chest X-Ray 08/01/24 12:57 IMPRESSION: No radiographic evidence of acute cardiopulmonary disease. Electronically Signed: Sanju Orantes MD at 13:56 EST , Management Discussion w/another healthcare provider: Dynamometer Tester (Dr Burrell) Discharge Plan Triage Chief Complaint: Wound Check ED Provider: Jose Holder Dx/Rx/DC Orders Clinical Impression: Acute facial pain, Acute neck pain, Factor V Leiden Prescriptions: No Action buprenorphine-naloxone 8-2 mg film 1 film sublingual DAILY Rx Instructions: weaning LAST DOSE 07/16/24 zolpidem 10 mg tablet 10 mg PO QHS PRN (Reason: sleep) cetirizine 10 mg tablet 10 mg PO DAILY PRN (Reason: allergy symptoms) Qty: 90 1RF gabapentin 100 mg capsule 200 mg PO TID 30 Days Qty: 180 2RF (DME) FreeStyle Sarai 2 Plus Sensor Device See Rx Instructions .Route Qty: 1 5RF Rx Instructions: As directed aripiprazole 10 mg tablet 10 mg PO QDAY mupirocin 2 % ointment 1 applic topical BID Qty: 15 1RF famotidine 20 mg tablet 20 mg PO QDAY Qty: 90 0RF pantoprazole 40 mg tablet,delayed release (DR/EC) 40 mg PO QDAY Qty: 90 0RF docusate sodium [Colace] 100 mg capsule 100 mg PO DAILY Qty: 90 0RF sumatriptan succinate 100 mg tablet See Rx Instructions PO .COMPLEX Qty: 12 2RF Rx Instructions: take 1 tab at onset of headache; if no relief, may repeat 1 tab after at least 2 hrs; max = 2 tabs/24 hrs PO ketorolac 10 mg tablet 10 mg PO Q8H PRN (Reason: pain) Qty: 12 0RF Rx Instructions: maximum total duration of 5 days from all oral, intranasal, or parenteral formulations lamotrigine 200 mg tablet 200 mg PO BID Qulipta 60 mg tablet 60 mg PO DAILY sumatriptan succinate 6 mg/0.5 mL pen injector 6 mg SUBCUT Q12H Qty: 1 2RF alcohol swabs Pads, Medicated 1 pad topical DAILY Qty: 200 0RF (DME) OneTouch Verio test strips Strip See Rx Instructions .Route Qty: 100 0RF Rx Instructions: Use one strip once per day to check blood glucose level (DME) lancets [OneTouch UltraSoft 2 Lancet] 30 gauge misc See Rx Instructions .Route Qty: 200 0RF Rx Instructions: Use once daily to check blood glucose level (DME) Dexcom G7 Client Success Director Misc See Rx Instructions .Route Qty: 1 5RF Rx Instructions: As directed Linzess 290 mcg capsule 290 mcg PO QDAY Qty: 90 0RF hyoscyamine sulfate 0.125 mg tablet 0.125 mg PO BID-QID PRN (Reason: dyspepsia) Qty: 60 1RF acetaminophen [Tylenol Extra Strength] 500 mg tablet 1,000 mg PO Q8 PRN (Reason: fever or pain) Qty: 90 2RF meclizine 25 mg tablet 25 mg PO BID PRN (Reason: motion sickness) Qty: 30 1RF lidocaine 5 % adhesive patch,medicated 1 patch topical QDAY PRN (Reason: pain) Qty: 30 3RF Rx Instructions: leave on most painful area for up to 12 hrs (DME) Dexcom G7 Sensor Device See Rx Instructions .Route Qty: 1 5RF Rx Instructions: As directed (DME) Dexcom G6 Transmitter Device See Rx Instructions .Route Qty: 1 5RF Rx Instructions: As directed Trulicity 1.5 mg/0.5 mL pen injector 1.5 mg subcut QWEEK 90 Days Qty: 6.5 1RF Primary Care Provider: Erika Ware Referrals: Erika Ware MD [Primary Care Provider] - Artur Shafer MD [Med Staff - Active Staff] - As soon as possible Print Language: Latvian Disposition Disposition: Home, Self Care Discharge Date/Time: 08/01/24 14:22
== END 2024-08-01 14:22 | disposition home or self-care (01) ==
PROVIDERS: Emergency Provider Emergency Medicine; PCP Internal Medicine; Visit Provider Emergency Medicine
DX: R51.9 Headache, unspecified (principal); E11.40 Type 2 diabetes mellitus with diabetic neuropathy, unspecified; M54.2 Cervicalgia; D68.51 Activated protein C resistance; K21.9 Gastro-esophageal reflux disease without esophagitis; Z45.2 Encounter for adjustment and management of vascular access device; Z79.899 Other long term (current) drug therapy
CPT/HCPCS: 71045; 99282

== ENCOUNTER 2024-08-13 07:05 | Emergency (ER) | payer MEDICAID, SELFPAY ==
[2024-08-13 07:06] VITALS: BP 132/84; PULSE 89; RESP 16; TEMP 36.2; O2SAT 100; BMI 40.6
--- NOTE | 2024-08-13 07:37 | EX.ED.VIS.HA ---
HPI History of Present Illness Chief Complaint: Headache Informant: patient Onset/Context/Timing Onset: Days Context: Onset (Awoke with a headache about a week ago.) Timing: Intermittent Quality -Headache: Positive for Similar Prior Headaches and Sharp Location: Right-sided. Similar to prior migraines. Current Severity: Moderate Maximum Severity: Moderate Associated Symptoms/Injury Associated Symptoms: Positive for Nausea and Vomiting; Negative for Fever, Sore Throat, Sinus Pressure, Numbness, Tingling, Preceding Aura, Visual Changes, Blurred Vision, Photophobia or Visual Loss Injury - FALL: Negative for Direct Trauma, Fall or Assault Narrative Narrative: 34-year-old female history of migraine headaches also history of clotting disorder factor V, PTSD and prior DVT. Currently on no blood thinners. States about a week ago awoke in the morning with a headache it has been intermittent right sided. Consistent with prior migraines. She has had intermittent nausea vomiting. She has tried her Imitrex at home without relief. She has had to come into the emergency department before to be treated for migraines. Denies any recent fall or trauma. No fever or sinus congestion. No weakness or numbness to her upper or lower extremities. She is not off balance. Prior similar symptoms: Yes Recent Illness/Hospitalization: No PFSH PFS Medical History Implantable loop recorder present Wears glasses Anxiety MRSA infection Substance abuse History of steroid therapy Diabetes Injury of head and neck History of IBS Gastric reflux Open wound of right elbow Leg wound, right Difficult intravenous access Neuropathy Candidiasis Recurrent pulmonary emboli delivery delivered Arthritis GERD (gastroesophageal reflux disease) Head injury Chest pain Prolonged QT interval Diabetes PCOS (polycystic ovarian syndrome) PTSD (post-traumatic stress disorder) Factor V Leiden Anxiety Depression Kidney stones Pulmonary embolism DVT (deep venous thrombosis) TIA (transient ischemic attack) Ovarian cyst Home Medications ?Medication ?Instructions ?Recorded ?Last Taken ?Type sumatriptan succinate 6 mg/0.5 mL 6 mg (0.5 mL) subcut Q12H MIGRAINE 01/02/24 Unknown Rx subcutaneous pen injector #1 mL alcohol swabs 1 pad topical DAILY #200 ea 01/21/24 Unknown Rx blood sugar diagnostic (OneTouch #100 ea 01/21/24 Unknown Rx Verio test strips) lancets 30 gauge (OneTouch #200 ea 01/23/24 Unknown Rx UltraSoft 2 Lancet) blood-glucose sensor (FreeStyle #1 ea 06/08/24 Unknown Rx Sarai 2 Plus Sensor device) buprenorphine 8 mg-naloxone 2 mg 1 film sublingual DAILY 06/08/24 Unknown History sublingual film cetirizine 10 mg tablet 10 mg PO DAILY PRN allergy 06/08/24 Unknown Rx symptoms #90 tabs gabapentin 100 mg capsule 200 mg (2 x 100 mg) PO TID 1 month 06/08/24 Unknown Rx #180 caps zolpidem 10 mg tablet 10 mg PO QHS PRN sleep 06/08/24 Unknown History blood-glucose meter,continuous #1 ea 06/09/24 Unknown Rx (Dexcom G7 Solar Power Installer) acetaminophen 500 mg tablet 1,000 mg (2 x 500 mg) PO Q8 PRN 06/16/24 Unknown Rx (Tylenol Extra Strength) fever or pain #90 tabs hyoscyamine sulfate 0.125 mg tablet 0.125 mg PO BID-QID PRN dyspepsia 06/16/24 Unknown Rx #60 tabs lidocaine 5 % topical patch 1 patch topical QDAY PRN pain #30 06/16/24 Unknown Rx ea linaclotide 290 mcg capsule 290 mcg PO QDAY #90 caps 06/16/24 Unknown Rx (Linzess) meclizine 25 mg tablet 25 mg PO BID PRN motion sickness 06/16/24 Unknown Rx #30 tabs aripiprazole 10 mg tablet 10 mg PO QDAY 07/06/24 Unknown History mupirocin 2 % topical ointment 1 applic topical BID #15 grams 07/06/24 Unknown Rx blood-glucose sensor (Dexcom G7 #1 ea 07/09/24 Unknown Rx Sensor device) blood-glucose transmitter (Dexcom #1 ea 07/09/24 Unknown Rx G6 Transmitter device) dulaglutide 1.5 mg/0.5 mL 1.5 mg (0.5 mL) subcut QWEEK 3 07/09/24 07/10/24 Rx subcutaneous pen injector months #6.5 mL (Trulicity) atogepant 60 mg tablet (Qulipta) 60 mg PO DAILY 07/14/24 Unknown History lamotrigine 200 mg tablet 200 mg PO BID 07/14/24 Unknown History docusate sodium 100 mg capsule 100 mg PO DAILY #90 caps 07/29/24 Unknown Rx (Colace) ketorolac 10 mg tablet 10 mg PO Q8H PRN pain #12 tabs 07/29/24 Unknown Rx pantoprazole 40 mg tablet,delayed 40 mg PO QDAY #90 tabs 07/29/24 Unknown Rx release sumatriptan succinate 100 mg tablet See Rx Instructions PO .COMPLEX 07/29/24 Unknown Rx #12 tabs famotidine 20 mg tablet 20 mg PO QDAY #90 tabs 08/11/24 Unknown Rx Allergy/AdvReac Type Severity Reaction Status Date / Time bee venom protein (honey Allergy Severe Anaphylaxis Verified 08/13/24 07:08 bee) (bee sting) ziprasidone (From Geodon) Allergy Severe facial Verified 08/13/24 07:08 swelling adhesive tape Allergy Mild Rash Verified 08/13/24 07:08 latex Allergy Mild Rash Verified 08/13/24 07:08 Iodinated Contrast Media Allergy Hives Verified 08/13/24 07:08 nitrofurantoin (From Allergy Other Verified 08/13/24 07:08 Macrobid) ondansetron (From Zofran) Allergy Hives Verified 08/13/24 07:08 propranolol Allergy Angioedema Verified 08/13/24 07:08 haloperidol AdvReac mood issues Verified 08/13/24 07:08 Family History Other Autoimmune disorder Bleeding disorder Breast cancer CVA (cerebral vascular accident) Colon cancer Diabetes Heart disease Hypertension Myocardial infarction Ovarian cancer Thyroid disorder Surgical History Port-A-Cath in place H/O hernia repair H/O wisdom tooth extraction H/O oophorectomy Hx of cholecystectomy H/O tubal ligation Social History adopted: No household members: children and none number of children: 2 current occupational status: unemployed pets and animals: No sexually active: No Smoking Status: Never smoker alcohol intake: never substance use type: does not use caffeine: No frequency: 3-4 times per week do you feel safe at home: Yes ROS ROS ED ROS Narrative Headache. Nausea vomiting. Constitutional Constitutional ED: Denies chills or fever(s) Eyes Eyes: Denies blurry vision ENT ENT ED: Denies ear pain Cardiovascular Cardiovascular: Denies chest pain Respiratory/Chest Respiratory/Chest: Denies cough or dyspnea Gastrointestinal Gastrointestinal: Reports nausea and vomiting; Denies abdominal pain, constipation, diarrhea or melena Genitourinary Genitourinary ED: Denies dysuria or hematuria Musculoskeletal Musculoskeletal: Denies arthralgias or back pain Integumentary Denies abscess or Abrasions Neurologic Neurologic: Reports headache(s); Denies paresthesias or weakness Psychiatric Psychiatric: Denies anxiety or depression Endocrine Endocrinology: Denies polydipsia Hematologic/Lymphatic Hematologic/Lymphatic: Denies easy bleeding Allergic/Immunologic Allergic/Immunologic ED: Denies mouth swelling EXAM Physical Exam Narrative Exam Narrative: 34-year-old female vital signs stable afebrile. H EENT exam pupils round reactive light. Extra motions are intact. No facial droop. Normal speech. No signs of trauma. Sinuses nontender. Scalp nontender. No hematomas. Neck nontender. No meningismus. Back nontender. Able to touch chin to chest. Lungs clear to auscultation bilaterally. Heart regular rate and rhythm rate about 85 no murmur. Chest wall and ribs are nontender. Abdomen soft nontender. Patient moving all 4 extremities. Nontender. No deformity. Normal range of motion. 5 out of 5 office support specialist strength. Dorsi plantarflexion intact. No drift. Neurologically she is awake and alert. NIH is 0. Fingertip to nose within normal limits. Normal speech. Const Vital Signs: 08/13/24 07:06 08/13/24 11:17 Temperature 97.2 F L Temperature Source Oral Pulse Rate 89 86 Respiratory Rate 16 18 Blood Pressure 132/84 H 151/101 H Blood Pressure Mean 100 117 Pulse Ox 100 98 Oxygen Delivery Method Room Air Room Air Positive well nourished and well developed; Negative for cachectic, contractures or unkempt General Appearance ED: well developed and NAD; Negative for unkempt, cachectic, contractures, cyanotic, diaphoretic or pallor Nutritional Appearance: Negative for cachectic HEENT Reports normocephalic and moist mucous membranes atraumatic; Negative for trauma, tenderness, temporal artery tenderness or vesicular rash Face and Sinus: Negative for sinus tenderness Eyes PERRL and EOMs intact bilaterally General Eye ED: Negative for pale conjunctiva, scleral icterus or other Neck no lymphadenopathy, supple, no meningeal signs and no JVD General: Negative for tenderness Resp normal respiratory effort and clear to auscultation bilaterally Effort and Inspection: Negative for retractions Auscultation: Negative for rales, rhonchi or wheezes Cardio regular rate, regular rhythm, S1 normal heart sound, S2 normal heart sound and no murmurs Rate: Negative for bradycardia or tachycardic Rhythm: Negative for abnormal rhythm GI non-tender and non-distended Palpation: soft; Negative for firm, tender or mass Back/Spine no CVA tenderness General Back: Negative for CVA tenderness or tenderness Cervical Spine: Negative for cervical spine tenderness Thoracic Spine / Upper Back: Negative for thoracic spinal tenderness Lumbar Spine / Lower Back: Negative for lumbar spinal tenderness Extremity normal to inspection, full ROM and normal capillary refill Neuro oriented x3 and CN's II-XII intact bilaterally Sensorium / Orientation: awake, alert, oriented to person, oriented to place and oriented to time; Negative for orientation impaired or lethargic Coordination / Balance: [id number] test normal Speech: speech normal Motor Exam: strength 5/5 throughout Psych mental status grossly normal Appearance: Negative for unkempt Attitude: No agitated Mood & Affect: Negative for depressed, anxious or tearful Skin General Skin Exam: Negative for jaundice or pallor Lesions: no lesions Rashes: no rashes MDM MDM MDM Narrative Medical decision making narrative: 34-year-old female normal neurologic exam. Multiple prior CAT scans that were unremarkable. History of migraine headaches. She will be treated with IV fluids, Toradol, Reglan and Benadryl. Should be reassessed. I do not think she needs any imaging or labs at this time. Repeat exam at 10:20 AM patient states her symptoms not significantly proved. She requested I try DHE which she will be given injection IV for. She has not had significant improvement so far with IV fluids, Toradol Benadryl and Reglan. Multiple repeat exams patient's neurologic status remains normal. She has been given migraine cocktail. Also IV Norflex. She is going to try Compazine with additional Benadryl. Currently at 1:35 PM her headache is somewhat improved. She is comfortable being discharged home with outpatient follow-up. History & Record Review Discussion w/independent historian: Patient Additional record(s) reviewed:: Prior inpatient record, Prior outpatient record, Prior ED visit and Prior labs Discharge Plan Triage Chief Complaint: Headache ED Provider: Elian Arteaga Dx/Rx/DC Orders Clinical Impression: Acute headache, History of migraine, History of posttraumatic stress disorder (PTSD) Instructions: ED Headache Unspecified Prescriptions: No Action buprenorphine-naloxone 8-2 mg film 1 film sublingual DAILY Rx Instructions: weaning LAST DOSE 07/16/24 zolpidem 10 mg tablet 10 mg PO QHS PRN (Reason: sleep) cetirizine 10 mg tablet 10 mg PO DAILY PRN (Reason: allergy symptoms) Qty: 90 1RF gabapentin 100 mg capsule 200 mg PO TID 30 Days Qty: 180 2RF (DME) FreeStyle Sarai 2 Plus Sensor Device See Rx Instructions .Route Qty: 1 5RF Rx Instructions: As directed aripiprazole 10 mg tablet 10 mg PO QDAY mupirocin 2 % ointment 1 applic topical BID Qty: 15 1RF pantoprazole 40 mg tablet,delayed release (DR/EC) 40 mg PO QDAY Qty: 90 0RF docusate sodium [Colace] 100 mg capsule 100 mg PO DAILY Qty: 90 0RF sumatriptan succinate 100 mg tablet See Rx Instructions PO .COMPLEX Qty: 12 2RF Rx Instructions: take 1 tab at onset of headache; if no relief, may repeat 1 tab after at least 2 hrs; max = 2 tabs/24 hrs PO ketorolac 10 mg tablet 10 mg PO Q8H PRN (Reason: pain) Qty: 12 0RF Rx Instructions: maximum total duration of 5 days from all oral, intranasal, or parenteral formulations lamotrigine 200 mg tablet 200 mg PO BID Qulipta 60 mg tablet 60 mg PO DAILY sumatriptan succinate 6 mg/0.5 mL pen injector 6 mg SUBCUT Q12H Qty: 1 2RF alcohol swabs Pads, Medicated 1 pad topical DAILY Qty: 200 0RF (DME) OneTouch Verio test strips Strip See Rx Instructions .Route Qty: 100 0RF Rx Instructions: Use one strip once per day to check blood glucose level (DME) lancets [OneTouch UltraSoft 2 Lancet] 30 gauge misc See Rx Instructions .Route Qty: 200 0RF Rx Instructions: Use once daily to check blood glucose level (DME) Dexcom G7 Solar Power Installer Misc See Rx Instructions .Route Qty: 1 5RF Rx Instructions: As directed Linzess 290 mcg capsule 290 mcg PO QDAY Qty: 90 0RF hyoscyamine sulfate 0.125 mg tablet 0.125 mg PO BID-QID PRN (Reason: dyspepsia) Qty: 60 1RF acetaminophen [Tylenol Extra Strength] 500 mg tablet 1,000 mg PO Q8 PRN (Reason: fever or pain) Qty: 90 2RF meclizine 25 mg tablet 25 mg PO BID PRN (Reason: motion sickness) Qty: 30 1RF lidocaine 5 % adhesive patch,medicated 1 patch topical QDAY PRN (Reason: pain) Qty: 30 3RF Rx Instructions: leave on most painful area for up to 12 hrs (DME) Dexcom G7 Sensor Device See Rx Instructions .Route Qty: 1 5RF Rx Instructions: As directed (DME) Dexcom G6 Transmitter Device See Rx Instructions .Route Qty: 1 5RF Rx Instructions: As directed Trulicity 1.5 mg/0.5 mL pen injector 1.5 mg subcut QWEEK 90 Days Qty: 6.5 1RF famotidine 20 mg tablet 20 mg PO QDAY Qty: 90 0RF Primary Care Provider: Erika Ware Referrals: Erika Ware MD [Primary Care Provider] - 1-2 Days if not improving Activity Restrictions/Additional Instructions: Plenty of fluids and rest. Caffeine. Alternate Tylenol Motrin for your headache. May try her Imitrex. Follow-up with your doctor if not improving return if worse. Print Language: Citizen Of [place] Disposition Disposition: Home, Self Care
--- NOTE | 2024-08-13 08:35 | ED.RN ---
difficult port access this nurse and clinic charge nurse attempt. contacted fish housekeeper to assist.
[2024-08-13] MEDS: Ketorolac 30 MG/ML Syringe IV (09:13)
[2024-08-13] MEDS: Metoclopramide 10 MG/2 ML Vial IV (09:14)
[2024-08-13] MEDS: DiphenhydrAMINE 50 MG/ML Syringe IV (09:15)
[2024-08-13] MEDS: 0.9% Normal Saline (1000mL) 1,000 ML 1000 ML IV (09:15)
[2024-08-13] MEDS: Dihydroergotamine 1 MG/ML Ampul IV (11:12)
[2024-08-13 11:17] VITALS: BP 151/101; PULSE 86; RESP 18; O2SAT 98
[2024-08-13] MEDS: Orphenadrine 60 MG/2 ML Ampul IV (12:18)
--- NOTE | 2024-08-13 13:00 | ED.RN ---
Patient refusing IV compazine at this time
[2024-08-13] MEDS: proCHLORPERazine 10 MG/2 ML Vial IV (14:12)
[2024-08-13] MEDS: DiphenhydrAMINE 50 MG/ML Syringe 25 MG IV (14:12)
[2024-08-13 14:24] VITALS: BP 151/101; PULSE 86; RESP 18; TEMP 36.2; O2SAT 98
== END 2024-08-13 14:25 | disposition home or self-care (01) ==
PROVIDERS: Emergency Provider Emergency Medicine; PCP Internal Medicine; Visit Provider Emergency Medicine
DX: R51.9 Headache, unspecified (principal); D68.2 Hereditary deficiency of other clotting factors; E11.40 Type 2 diabetes mellitus with diabetic neuropathy, unspecified; R11.2 Nausea with vomiting, unspecified; Z86.718 Personal history of other venous thrombosis and embolism; K21.9 Gastro-esophageal reflux disease without esophagitis; F43.10 Post-traumatic stress disorder, unspecified
CPT/HCPCS: 96361; 96374; 96375; 99282; A4216; J1110

== ENCOUNTER 2024-08-31 18:59 | Emergency (ER) | payer MEDICAID, SELFPAY ==
[2024-08-31 19:00] VITALS: BP 164/87; PULSE 129; RESP 15; TEMP 36.3; O2SAT 99; BMI 40.4
== END 2024-08-31 21:08 | disposition left against medical advice (07) ==
LOC: ED 22:02
PROVIDERS: PCP Internal Medicine
DX: Z53.21 Procedure and treatment not carried out due to patient leaving prior to being seen by health care provider (principal)

== ENCOUNTER 2024-09-02 09:00 | Emergency (ER) | payer MEDICAID, SELFPAY ==
[2024-09-02 09:01] VITALS: BP 167/113; PULSE 108; RESP 16; TEMP 36.4; O2SAT 97; BMI 40.6
--- NOTE | 2024-09-02 09:53 | EX.ED.VIS.HA ---
HPI History of Present Illness Chief Complaint: Headache Detail of Chief Complaint: Right-sided unilateral headache with photophobia Informant: patient Onset/Context/Timing Onset: Days (3 days ago.) Context: Gradual Timing: Continuous Quality -Headache: Positive for Similar Prior Headaches (With the exception that it radiates to the occiput region) and Throbbing; Negative for Sharp, Dull, Tightness or Burning Current Severity: Moderate Maximum Severity: Severe Worsened by: Light Relieved by: Nothing Associated Symptoms/Injury Associated Symptoms: Positive for Nausea and Photophobia; Negative for Fever, Vomiting, Sore Throat, Sinus Pressure, Numbness, Preceding Aura, Visual Changes, Blurred Vision or Visual Loss Injury - FALL: Negative for Direct Trauma Narrative Narrative: Patient presents with persistent headache. She took Imitrex today without relief. She is on prophylactic medication as well. She has not missed any doses. Her last headache was a week ago. She denies double vision, blurred vision loss of vision. She does report light sensitivity. She denies ringing or ears decreased hearing. She denies neck stiffness. She denies upper respiratory tract infectious symptoms. She denies cardiac or respiratory symptoms. She denies abdominal pain. She does report nausea without vomiting diarrhea. She denies problems with coordination or balance. Denies trouble with speech or swallowing. She denies paresthesia, anesthesia or motor weakness. Prior similar symptoms: Yes Recent Illness/Hospitalization: No PFSH PFS Medical History Implantable loop recorder present Wears glasses Anxiety MRSA infection Substance abuse History of steroid therapy Diabetes Injury of head and neck History of IBS Gastric reflux Open wound of right elbow Leg wound, right Difficult intravenous access Neuropathy Candidiasis Recurrent pulmonary emboli delivery delivered Arthritis GERD (gastroesophageal reflux disease) Head injury Chest pain Prolonged QT interval Diabetes PCOS (polycystic ovarian syndrome) PTSD (post-traumatic stress disorder) Factor V Leiden Anxiety Depression Kidney stones Pulmonary embolism DVT (deep venous thrombosis) TIA (transient ischemic attack) Ovarian cyst Home Medications ?Medication ?Instructions ?Recorded ?Last Taken ?Type sumatriptan succinate 6 mg/0.5 mL 6 mg (0.5 mL) subcut Q12H MIGRAINE 01/02/24 Unknown Rx subcutaneous pen injector #1 mL alcohol swabs 1 pad topical DAILY #200 ea 01/21/24 Unknown Rx blood sugar diagnostic (OneTouch #100 ea 01/21/24 Unknown Rx Verio test strips) lancets 30 gauge (OneTouch #200 ea 01/23/24 Unknown Rx UltraSoft 2 Lancet) blood-glucose sensor (FreeStyle #1 ea 06/08/24 Unknown Rx Saria 2 Plus Sensor device) buprenorphine 8 mg-naloxone 2 mg 1 film sublingual DAILY 06/08/24 Unknown History sublingual film cetirizine 10 mg tablet 10 mg PO DAILY PRN allergy 06/08/24 Unknown Rx symptoms #90 tabs gabapentin 100 mg capsule 200 mg (2 x 100 mg) PO TID 1 month 06/08/24 Unknown Rx #180 caps zolpidem 10 mg tablet 10 mg PO QHS PRN sleep 06/08/24 Unknown History blood-glucose meter,continuous #1 ea 06/09/24 Unknown Rx (Dexcom G7 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 Station Manager) acetaminophen 500 mg tablet 1,000 mg (2 x 500 mg) PO Q8 PRN 06/16/24 Unknown Rx (Tylenol Extra Strength) fever or pain #90 tabs hyoscyamine sulfate 0.125 mg tablet 0.125 mg PO BID-QID PRN dyspepsia 06/16/24 Unknown Rx #60 tabs lidocaine 5 % topical patch 1 patch topical QDAY PRN pain #30 06/16/24 Unknown Rx ea linaclotide 290 mcg capsule 290 mcg PO QDAY #90 caps 06/16/24 Unknown Rx (Linzess) meclizine 25 mg tablet 25 mg PO BID PRN motion sickness 06/16/24 Unknown Rx #30 tabs aripiprazole 10 mg tablet 10 mg PO QDAY 07/06/24 Unknown History mupirocin 2 % topical ointment 1 applic topical BID #15 grams 07/06/24 Unknown Rx blood-glucose sensor (Dexcom G7 #1 ea 07/09/24 Unknown Rx Sensor device) blood-glucose transmitter (Dexcom #1 ea 07/09/24 Unknown Rx G6 Transmitter device) dulaglutide 1.5 mg/0.5 mL 1.5 mg (0.5 mL) subcut QWEEK 3 07/09/24 07/10/24 Rx subcutaneous pen injector months #6.5 mL (Trulicity) atogepant 60 mg tablet (Qulipta) 60 mg PO DAILY 07/14/24 Unknown History lamotrigine 200 mg tablet 200 mg PO BID 07/14/24 Unknown History docusate sodium 100 mg capsule 100 mg PO DAILY #90 caps 07/29/24 Unknown Rx (Colace) ketorolac 10 mg tablet 10 mg PO Q8H PRN pain #12 tabs 07/29/24 Unknown Rx pantoprazole 40 mg tablet,delayed 40 mg PO QDAY #90 tabs 07/29/24 Unknown Rx release sumatriptan succinate 100 mg tablet See Rx Instructions PO .COMPLEX 07/29/24 Unknown Rx #12 tabs famotidine 20 mg tablet 20 mg PO QDAY #90 tabs 08/11/24 Unknown Rx fluconazole 150 mg tablet 150 mg PO Q3D 2 doses #2 tabs 08/20/24 Unknown Rx Allergy/AdvReac Type Severity Reaction Status Date / Time bee venom protein (honey Allergy Severe Anaphylaxis Verified 09/02/24 09:05 bee) (bee sting) ziprasidone (From Geodon) Allergy Severe facial Verified 09/02/24 09:05 swelling adhesive tape Allergy Mild Rash Verified 09/02/24 09:05 latex Allergy Mild Rash Verified 09/02/24 09:05 Iodinated Contrast Media Allergy Hives Verified 09/02/24 09:05 nitrofurantoin (From Allergy Other Verified 09/02/24 09:05 Macrobid) ondansetron (From Zofran) Allergy Hives Verified 09/02/24 09:05 propranolol Allergy Angioedema Verified 09/02/24 09:05 haloperidol AdvReac mood issues Verified 09/02/24 09:05 Family History Other Autoimmune disorder Bleeding disorder Breast cancer CVA (cerebral vascular accident) Colon cancer Diabetes Heart disease Hypertension Myocardial infarction Ovarian cancer Thyroid disorder Surgical History Port-A-Cath in place H/O hernia repair H/O wisdom tooth extraction H/O oophorectomy Hx of cholecystectomy H/O tubal ligation Social History adopted: No household members: children and none number of children: 2 current occupational status: unemployed pets and animals: No sexually active: No Smoking Status: Never smoker alcohol intake: never substance use type: does not use caffeine: No frequency: 3-4 times per week do you feel safe at home: Yes ROS ROS ED Constitutional Constitutional ED: Denies chills, fever(s), subjective or sweats Eyes Eyes: Denies blurry vision, change in vision or diplopia ENT ENT ED: Denies ear pain, rhinorrhea or sore throat Cardiovascular Cardiovascular: Denies chest pain or palpitations Respiratory/Chest Respiratory/Chest: Denies cough, dyspnea or dyspnea on exertion Gastrointestinal Gastrointestinal: Reports nausea; Denies abdominal pain, diarrhea or vomiting Genitourinary Genitourinary ED: Reports other Details: Patient is status post bilateral tubal ligation. ; Denies dysuria, hematuria or urinary frequency Musculoskeletal Musculoskeletal: Reports neck pain; Denies arthralgias, back pain or myalgias Integumentary Denies Abrasions or rash Neurologic Neurologic: Reports headache(s); Denies paresthesias or weakness Psychiatric Psychiatric: Denies anxiety or depression Hematologic/Lymphatic Hematologic/Lymphatic: Denies easy bleeding or easy bruising EXAM Physical Exam Const Vital Signs: 09/02/24 09:01 09/02/24 13:01 09/02/24 15:15 Temperature 97.5 F L Temperature Source Temporal Pulse Rate 108 H 75 74 Respiratory Rate 16 18 18 Blood Pressure 167/113 H 154/101 H 141/98 H Blood Pressure Mean 131 118 112 Pulse Ox 97 95 99 Oxygen Delivery Method Room Air Room Air Room Air Positive well nourished and well developed Constitutional Narrative: Vital signs remarkable and elevated blood pressure. BMI is 40.6. General Appearance ED: well developed; Negative for cyanotic, diaphoretic, NAD or pallor HEENT Reports normocephalic, TM's clear and moist mucous membranes HEENT Narrative: Uvula is midline. There is no deviation with protrusion. atraumatic Face and Sinus: Negative for sinus tenderness Tympanic Membrane ED: Yes TM's clear Eyes PERRL and EOMs intact bilaterally Eyes Narrative: There is no nystagmus. General Eye ED: Negative for pale conjunctiva or scleral icterus Neck no lymphadenopathy, supple, no meningeal signs and no JVD Resp normal respiratory effort and clear to auscultation bilaterally Cardio regular rate, regular rhythm, S1 normal heart sound, S2 normal heart sound and no murmurs GI non-tender Auscultation: normoactive bowel sounds Palpation: soft Extremity normal to inspection, full ROM and normal capillary refill Neuro oriented x3, CN's II-XII intact bilaterally and no sensory deficits noted Neuro Narrative: There is no dysmetria. Bicep, brachialis, tricep, patella and ankle reflex are 1+ and symmetric. There is no clonus at the ankles. Babinski sign was negative bilaterally. [place] Coma Scale: document GCS findings Spontaneous Obeys Commands Oriented 15 Sensorium / Orientation: awake and alert Coordination / Balance: [id number] test normal Speech: speech normal Gait (Neuro): normal gait Motor Exam: strength 5/5 throughout Psych mental status grossly normal Skin General Skin Exam: elasticity normal and turgor normal; Negative for jaundice or pallor Lesions: no lesions Rashes: no rashes MDM MDM MDM Narrative Medical decision making narrative: Patient with headache. History is not consistent with subarachnoid hemorrhage. With no fever or nuchal rigidity or meningeal findings doubt meningitis or subarachnoid hemorrhage. Also with this being unilateral with bow against subarachnoid hemorrhage. Since the neuroexam is nonfocal doubt intracranial hemorrhage especially since her blood pressure is elevated. Patient was treated with IV Benadryl, Reglan and ketorolac. Patient was reassessed 1113. She states there is no improvement. 10 mg of Decadron was ordered. Radiography Diagnostic Testing: Clinical Impression(s) from Imaging Studies Brain CT 09/02/24 14:00 IMPRESSION: No acute intracranial abnormalities are demonstrated. Reading Location: [facility] CT of the head without contrast was reviewed by wv at 1414. There is no evidence of sinusitis, subarachnoid hemorrhage, intraparenchymal bleed, epidural or subdural hematoma. Awaiting formal read by radiologist. Treatment and Re-Evaluation Narrative: Patient was reassessed at 1232. She had no improvement after 10 of Decadron. 1 mg of D.H.E. 45 was ordered IV push. If this does not alleviate her headache or significantly improvement she will need admission for intractable migraine headache with status Nurse communication that patient is requesting nausea was noted at 1315. Promethazine was ordered. Patient has allergy to Zofran with hives. She just received Reglan and reluctant to repeat at this time. Patient received IV morphine since he is presently taking tramadol which may be causing rebound headaches. After receiving the morphine she feels better she is sitting up she is smiling. Will discharge to home Discharge Plan Triage Chief Complaint: Headache ED Provider: Edwar Ibrahim Dx/Rx/DC Orders Clinical Impression: Intractable migraine with status migrainosus, Type 2 diabetes mellitus, Factor V Leiden, Rebound headache, Adult BMI 40.0-44.9 kg/sq m Instructions: ED Rebound Headache Prescriptions: No Action buprenorphine-naloxone 8-2 mg film 1 film sublingual DAILY Rx Instructions: weaning LAST DOSE 07/16/24 zolpidem 10 mg tablet 10 mg PO QHS PRN (Reason: sleep) cetirizine 10 mg tablet 10 mg PO DAILY PRN (Reason: allergy symptoms) Qty: 90 1RF gabapentin 100 mg capsule 200 mg PO TID 30 Days Qty: 180 2RF (DME) FreeStyle Sarai 2 Plus Sensor Device See Rx Instructions .Route Qty: 1 5RF Rx Instructions: As directed aripiprazole 10 mg tablet 10 mg PO QDAY mupirocin 2 % ointment 1 applic topical BID Qty: 15 1RF pantoprazole 40 mg tablet,delayed release (DR/EC) 40 mg PO QDAY Qty: 90 0RF docusate sodium [Colace] 100 mg capsule 100 mg PO DAILY Qty: 90 0RF sumatriptan succinate 100 mg tablet See Rx Instructions PO .COMPLEX Qty: 12 2RF Rx Instructions: take 1 tab at onset of headache; if no relief, may repeat 1 tab after at least 2 hrs; max = 2 tabs/24 hrs PO ketorolac 10 mg tablet 10 mg PO Q8H PRN (Reason: pain) Qty: 12 0RF Rx Instructions: maximum total duration of 5 days from all oral, intranasal, or parenteral formulations fluconazole 150 mg tablet 150 mg PO Q3D Qty: 2 0RF Rx Instructions: can started at the first signs of symptoms and repeat in 3 days if any continued symptoms. lamotrigine 200 mg tablet 200 mg PO BID Qulipta 60 mg tablet 60 mg PO DAILY sumatriptan succinate 6 mg/0.5 mL pen injector 6 mg SUBCUT Q12H Qty: 1 2RF alcohol swabs Pads, Medicated 1 pad topical DAILY Qty: 200 0RF (DME) OneTouch Verio test strips Strip See Rx Instructions .Route Qty: 100 0RF Rx Instructions: Use one strip once per day to check blood glucose level (DME) lancets [OneTouch UltraSoft 2 Lancet] 30 gauge misc See Rx Instructions .Route Qty: 200 0RF Rx Instructions: Use once daily to check blood glucose level (DME) Dexcom G7 Gas Station Manager Misc See Rx Instructions .Route Qty: 1 5RF Rx Instructions: As directed Linzess 290 mcg capsule 290 mcg PO QDAY Qty: 90 0RF hyoscyamine sulfate 0.125 mg tablet 0.125 mg PO BID-QID PRN (Reason: dyspepsia) Qty: 60 1RF acetaminophen [Tylenol Extra Strength] 500 mg tablet 1,000 mg PO Q8 PRN (Reason: fever or pain) Qty: 90 2RF meclizine 25 mg tablet 25 mg PO BID PRN (Reason: motion sickness) Qty: 30 1RF lidocaine 5 % adhesive patch,medicated 1 patch topical QDAY PRN (Reason: pain) Qty: 30 3RF Rx Instructions: leave on most painful area for up to 12 hrs (DME) Dexcom G7 Sensor Device See Rx Instructions .Route Qty: 1 5RF Rx Instructions: As directed (DME) Dexcom G6 Transmitter Device See Rx Instructions .Route Qty: 1 5RF Rx Instructions: As directed Trulicity 1.5 mg/0.5 mL pen injector 1.5 mg subcut QWEEK 90 Days Qty: 6.5 1RF famotidine 20 mg tablet 20 mg PO QDAY Qty: 90 0RF Primary Care Provider: Erika Ware Referrals: Erika Ware MD [Primary Care Provider] - 3-5 Days if not improving Print Language: Emirati Disposition Disposition: Home, Self Care
[2024-09-02] MEDS: Ketorolac 15 MG/ML Vial IV (10:00)
[2024-09-02] MEDS: DiphenhydrAMINE 50 MG/ML Syringe 25 MG IV (10:01)
[2024-09-02] MEDS: Metoclopramide 10 MG/2 ML Vial IV (10:01)
[2024-09-02] MEDS: dexAMETHasone 10 MG/ML Vial IV (11:27)
[2024-09-02] MEDS: Dihydroergotamine 1 MG/ML Ampul IV (12:55)
[2024-09-02 13:01] VITALS: BP 154/101; PULSE 75; RESP 18; O2SAT 95
[2024-09-02] MEDS: proMETHazine 25 MG Tablet 12.5 MG PO (13:20)
--- NOTE | 2024-09-02 14:00 | CT_ITS ---
EXAM: CT BRAIN WITHOUT CONTRAST CLINICAL HISTORY: INTRACTABLE HEADACHE. MIGRAINE. COMPARISON: CT BRAIN DATED 12/11/2023. TECHNIQUE: Contiguous axial scans of 3.75 mm slice thicknesses with sagittal and coronal reconstruction images. One or more dose reduction techniques were utilized (e.g., automated exposure control, adjustment of mA and/or kv according to patient size, use of iterative reconstruction technique). FINDINGS: No intraparenchymal hemorrhage. No abnormal areas of encephalomalacia. No mass effect or midline shift. Royal-white matter differentiation is normal. Ventricles and cisterns are appropriate size for patient's age. No extra-axial fluid collections. Cerebellum and posterior fossa unremarkable. Paranasal sinuses normal. Mastoid air cells are normal. Calvarium unremarkable. Soft tissues unremarkable. CT/Brain/Head without Contrast IMPRESSION: No acute intracranial abnormalities are demonstrated. Reading Location: [facility]
[2024-09-02] MEDS: Morphine 4 MG/ML Syringe IV (15:05)
[2024-09-02 15:15] VITALS: BP 141/98; PULSE 74; RESP 18; O2SAT 99
[2024-09-02 16:01] VITALS: BP 141/98; PULSE 74; RESP 18; TEMP 36.6; O2SAT 99
== END 2024-09-02 16:02 | disposition home or self-care (01) ==
PROVIDERS: Emergency Provider Emergency Medicine; PCP Internal Medicine; Visit Provider Emergency Medicine
DX: G43.911 Migraine, unspecified, intractable, with status migrainosus (principal); E11.9 Type 2 diabetes mellitus without complications; G44.41 Drug-induced headache, not elsewhere classified, intractable; K21.9 Gastro-esophageal reflux disease without esophagitis; D68.51 Activated protein C resistance
CPT/HCPCS: 70450; 96374; 96375; 99282; A4216; J1110

== ENCOUNTER 2024-09-10 12:47 | Day surgery (SDC) | payer MEDICAID, SELFPAY ==
[2024-09-10] VITALS (8 sets, daily range): BP systolic 110–139; BP diastolic 63–85; PULSE 78–107; RESP 16–18; TEMP 36.1–36.7; O2SAT 93–100; BMI 40.8
--- NOTE | 2024-09-10 13:48 | PCM.PRE.AN2 ---
ASA Classification* ASA Classification ASA Classification: 3 Assessment & Plan Anesthesia* Anesthesia Assessment Anesthesia Assessment: Discussed sedation and/or anesthesia options, risks, benefits, and alternatives with patient/parents/legal guardian/POA. Questions invited. The patient/parents/legal guardian/POA seems to understand and agrees to proceed with anesthesia plan. Reviewed the physical assessment, medical history, allergy history and patient home medications list prior to surgery/procedure/anesthetic and documented any changes. Performed airway and anesthesia risk assessments. Anesthesia Type Anesthesia Type: MAC History Source History Obtained from:: Patient and Chart Anesthesia Focused Assessment* Temperature: 98.1 F Pulse Rate: 96 Blood Pressure: 139/85 Respiratory Rate: 16 Pulse Ox: 100 Oxygen Delivery Method: Room Air Airway Assessment Mouth opens: 2 cm Mallampati Score: IV Teeth Condition: Dentures (Full upper and lower dentures.) Neck Range of motion (ROM): Limited ROM (Somewhat decreased extension) Focused Labs Anesthesia Preop lab: CBC WBC 6.6 K/mm3 (4.4-11.0) 07/31/24 19:50 07/31/24 RBC 3.84 M/mm3 (4.2-5.4) L 07/31/24 19:50 07/31/24 Hgb 10.7 g/dL (12.0-15.0) L 07/31/24 19:50 07/31/24 Hct 33.2 % (37-47) L 07/31/24 19:50 07/31/24 Plt Count 283 K/mm3 (150-450) 07/31/24 19:50 07/31/24 CHEMISTRY Potassium 3.4 mmol/L (3.5-5.1) L 07/31/24 19:50 07/31/24 Sodium 138 mmol/L (136-145) 07/31/24 19:50 07/31/24 BUN 10 mg/dL (7-18) 07/31/24 19:50 07/31/24 Creatinine 0.59 mg/dL (0.55-1.02) 07/31/24 19:50 07/31/24 Glucose 121 mg/dL (74-106) H 07/31/24 19:50 07/31/24 POC Glucose 134 mg/dL (74-106) H 07/22/24 11:26 07/22/24 TSH 0.68 uIU/mL (0.358-3.74) 11/11/19 00:40 11/11/19 COAG PT 12.3 SECONDS (11.7-14.9) 09/18/20 01:50 09/18/20 Urine Test Negative Negative 08/06/20 11:43 08/06/20 Pre-Assessment Diagnosis/Proposed Procedure Planned Operative Procedure(s): REVISION ON VASCULAR PORT Anesthesia History Anesthesia History - nonprofit fundraiser: Anesthesia History - nonprofit fundraiser Hx Hospitalization No 09/07/24 16:00 Any Problems With Anesthesia PONV 09/07/24 16:00 Cholinesterase deficiency No 09/07/24 16:00 You/Your Family Experience No 09/07/24 16:00 fever (hyperthermia) with Relationship Recent Exposure to Contagious No 09/10/24 13:12 Disease Does patient have nerve No 09/07/24 16:00 stimulator Patient instructed to have device shut off --Does patient have Pacemaker No 09/10/24 13:12 or ICD? When Was Last Pacemaker Check QUESTION #4 FULL TEXT: You/Your Family Experience fever (hyperthermia) with Anesthesia Last Oral Intake Last Oral intake: Last Oral Intake NPO since 23:00 09/10/24 13:12 Meds taken in AM with sips of No 09/10/24 13:12 water? Meds patient instructed to take am of surgery PONV PONV - nonprofit fundraiser: PONV - nonprofit fundraiser Female Yes 09/07/24 16:00 HX of Motion Sickness Yes 09/07/24 16:00 HX of N/V After Surgery No 09/07/24 16:00 Non-Smoker Yes 09/07/24 16:00 Duration of Surgery greater No 09/07/24 16:00 than 60 minutes Number of Risk Factors 3 09/07/24 16:00 PONV Score Moderate Risk 09/07/24 16:00 Height & Weight Height & Weight: Anesthesia: Height & Weight Height 5 ft 1 in 09/10/24 13:12 Weight: 98.1 kg 09/10/24 13:12 Body Mass Index (BMI) 40.8 09/10/24 13:12 Respiratory Assessment Respiratory Assessment - nonprofit fundraiser: Respiratory Tract Infection Hx - nonprofit fundraiser Hx Respiratory Tract Infection No 09/07/24 16:00 STOP Sleep Apnea STOP Sleep Apnea - nonprofit fundraiser: STOP Sleep Apnea - nonprofit fundraiser Hx Hypertension No 09/07/24 16:00 Hx Sleep Apnea No 09/07/24 16:00 CPAP BIPAP Do you snore loudly (louder No 09/07/24 16:00 than talking or can be heard Do you often feel tired/ No 09/07/24 16:00 fatigued/ sleepy during daytime? Has anyone observed you stop No 09/07/24 16:00 breathing during sleep? STOP Results Negative 09/07/24 16:00 QUESTION #5 FULL TEXT : Do you snore loudly (louder than talking or can be heard through closed doors)? Tobacco Use History Tobacco Use History - nonprofit fundraiser: Tobacco Use History - nonprofit fundraiser Tobacco Use Smoking Status Never smoker 09/07/24 16:00 Hx Tobacco Use No 09/07/24 16:00 Years Smoking Packs Smoked per Day Smoking Cessation Date was within the last 15 years Hx Smoking Cessation Date Hx Smoking Cessation Counseling Hematologic Medial History Hematologic Hx - nonprofit fundraiser: Hematologic Medical Hx - phone technician Hx of Blood Transfusion No 09/07/24 16:00 Hx of Transfusion in last 3 No 09/07/24 16:00 Months Date of Last Transfusion (if within last 3 months) Ever experience any problems No 09/07/24 16:00 with transfusion(s)? Specify any problems Hx of Preganancy in last 3 No 09/07/24 16:00 Months Nurse Filling Out Transfusion DSCHRIBER 09/07/24 16:00 & Questions: Date: 09/07/24 09/07/24 16:00 Time: 16:02 09/07/24 16:00 Patient unable to answer at this time (ie. confused, unrespo /Reproduction History /Reproductive History - nonprofit fundraiser: /Reproductive Hx- nonprofit fundraiser Hx Now Gestational Age (in weeks): EDC: Hx Hx Para Hx Section SAB No 09/07/24 16:00 Active Medications Active Medications: Current Medications Generic Name Dose Route Start Last Admin Trade Name Freq PRN Reason Stop Dose Admin Cefazolin Sodium 2 gm/ N/A 20 mls @ 400 mls/hr 09/10/24 14:30 IV 09/10/24 14:32 PREOP ONE [facility] Medical History Implantable loop recorder present Wears glasses Anxiety MRSA infection Substance abuse History of steroid therapy Diabetes Injury of head and neck History of IBS Gastric reflux Open wound of right elbow Leg wound, right Difficult intravenous access Neuropathy Candidiasis Recurrent pulmonary emboli delivery delivered Arthritis Head injury Chest pain Prolonged QT interval Diabetes PCOS (polycystic ovarian syndrome) PTSD (post-traumatic stress disorder) Factor V Leiden Anxiety Depression Pulmonary embolism DVT (deep venous thrombosis) TIA (transient ischemic attack) Ovarian cyst Home Medications ?Medication ?Instructions ?Recorded ?Last Taken ?Type sumatriptan succinate 6 mg/0.5 mL 6 mg (0.5 mL) subcut Q12H MIGRAINE 01/02/24 Unknown Rx subcutaneous pen injector #1 mL alcohol swabs 1 pad topical DAILY #200 ea 01/21/24 Unknown Rx blood sugar diagnostic (OneTouch #100 ea 01/21/24 Unknown Rx Verio test strips) lancets 30 gauge (OneTouch #200 ea 01/23/24 Unknown Rx UltraSoft 2 Lancet) blood-glucose sensor (FreeStyle #1 ea 06/08/24 Unknown Rx Sarai 2 Plus Sensor device) buprenorphine 8 mg-naloxone 2 mg 1 film sublingual DAILY 06/08/24 09/07/24 History sublingual film cetirizine 10 mg tablet 10 mg PO DAILY PRN allergy 06/08/24 Unknown Rx symptoms #90 tabs gabapentin 100 mg capsule 200 mg (2 x 100 mg) PO TID 1 month 06/08/24 Unknown Rx #180 caps zolpidem 10 mg tablet 10 mg PO QHS PRN sleep 06/08/24 Unknown History blood-glucose meter,continuous #1 ea 06/09/24 Unknown Rx (Dexcom G7 Press Secretary) acetaminophen 500 mg tablet 1,000 mg (2 x 500 mg) PO Q8 PRN 06/16/24 Unknown Rx (Tylenol Extra Strength) fever or pain #90 tabs hyoscyamine sulfate 0.125 mg tablet 0.125 mg PO BID-QID PRN dyspepsia 06/16/24 Unknown Rx #60 tabs lidocaine 5 % topical patch 1 patch topical QDAY PRN pain #30 06/16/24 Unknown Rx ea linaclotide 290 mcg capsule 290 mcg PO QDAY #90 caps 06/16/24 Unknown Rx (Linzess) meclizine 25 mg tablet 25 mg PO BID PRN motion sickness 06/16/24 Unknown Rx #30 tabs aripiprazole 10 mg tablet 10 mg PO QDAY 07/06/24 Unknown History blood-glucose sensor (Dexcom G7 #1 ea 07/09/24 Unknown Rx Sensor device) blood-glucose transmitter (Dexcom #1 ea 07/09/24 Unknown Rx G6 Transmitter device) atogepant 60 mg tablet (Qulipta) 60 mg PO DAILY 07/14/24 Unknown History lamotrigine 200 mg tablet 200 mg PO BID 07/14/24 Unknown History docusate sodium 100 mg capsule 100 mg PO DAILY #90 caps 07/29/24 Unknown Rx (Colace) ketorolac 10 mg tablet 10 mg PO Q8H PRN pain #12 tabs 07/29/24 Unknown Rx pantoprazole 40 mg tablet,delayed 40 mg PO QDAY #90 tabs 07/29/24 Unknown Rx release sumatriptan succinate 100 mg tablet See Rx Instructions PO .COMPLEX 07/29/24 Unknown Rx #12 tabs famotidine 20 mg tablet 20 mg PO QHS 09/07/24 Unknown History fremanezumab-vfrm 225 mg/1.5 mL 225 mg subcut QMONTH 09/07/24 08/24/24 History subcutaneous auto-injector (Ajovy) dulaglutide 1.5 mg/0.5 mL 1.5 mg subcut QWEEK 09/10/24 08/31/24 History subcutaneous pen injector (Trulicity) Allergy/AdvReac Type Severity Reaction Status Date / Time bee venom protein (honey Allergy Severe Anaphylaxis Verified 09/10/24 13:08 bee) (bee sting) ziprasidone (From Geodon) Allergy Severe facial Verified 09/10/24 13:08 swelling adhesive tape Allergy Mild Rash Verified 09/10/24 13:08 latex Allergy Mild Rash Verified 09/10/24 13:08 Iodinated Contrast Media Allergy Hives Verified 09/10/24 13:08 nitrofurantoin (From Allergy Other Verified 09/10/24 13:08 Macrobid) ondansetron (From Zofran) Allergy Hives Verified 09/10/24 13:08 propranolol Allergy Angioedema Verified 09/10/24 13:08 Family History Other Autoimmune disorder Bleeding disorder Breast cancer CVA (cerebral vascular accident) Colon cancer Diabetes Heart disease Hypertension Myocardial infarction Ovarian cancer Thyroid disorder Surgical History History of vascular access device Port-A-Cath in place H/O hernia repair H/O wisdom tooth extraction H/O oophorectomy Hx of cholecystectomy H/O tubal ligation Social History adopted: No household members: children and none number of children: 2 current occupational status: unemployed pets and animals: No sexually active: No Smoking Status: Never smoker alcohol intake: never substance use type: does not use caffeine: No frequency: 3-4 times per week do you feel safe at home: Yes Review of Systems (Anesthesia) ROS Narrative System reviewed and no additional complaints, except as documented.
[2024-09-10 14:17] LABS: Bedside Glucose 113 mg/dL (74-106)
--- NOTE | 2024-09-10 14:27 | PCM.HP.STD ---
HPI - General General Date of Admission: 09/10/24 Date of Service: 09/10/24 Chief Complaint: Malfunctioning Mediport HPI Narrative ERIN TORRES, is a 34 F who presents for revision of a right IJ Mediport. She had this placed a couple of months ago. Initially seems to have been working fine however more recently they have been having issues with the port in terms of being able to draw off blood or to infuse medications. There was thought to be a kink in the tubing noted on x-ray.. She presented to my office and I suggested that we consider a revision in order to straighten out the port versus removing the port and placing a new port in its place. [facility] Medical History Implantable loop recorder present Wears glasses Anxiety MRSA infection Substance abuse History of steroid therapy Diabetes Injury of head and neck History of IBS Gastric reflux Open wound of right elbow Leg wound, right Difficult intravenous access Neuropathy Candidiasis Recurrent pulmonary emboli delivery delivered Arthritis Head injury Chest pain Prolonged QT interval Diabetes PCOS (polycystic ovarian syndrome) PTSD (post-traumatic stress disorder) Factor V Leiden Anxiety Depression Pulmonary embolism DVT (deep venous thrombosis) TIA (transient ischemic attack) Ovarian cyst Home Medications ?Medication ?Instructions ?Recorded ?Last Taken ?Type sumatriptan succinate 6 mg/0.5 mL 6 mg (0.5 mL) subcut Q12H MIGRAINE 01/02/24 Unknown Rx subcutaneous pen injector #1 mL alcohol swabs 1 pad topical DAILY #200 ea 01/21/24 Unknown Rx blood sugar diagnostic (OneTouch #100 ea 01/21/24 Unknown Rx Verio test strips) lancets 30 gauge (OneTouch #200 ea 01/23/24 Unknown Rx UltraSoft 2 Lancet) blood-glucose sensor (FreeStyle #1 ea 06/08/24 Unknown Rx Sarai 2 Plus Sensor device) buprenorphine 8 mg-naloxone 2 mg 1 film sublingual DAILY 06/08/24 09/07/24 History sublingual film cetirizine 10 mg tablet 10 mg PO DAILY PRN allergy 06/08/24 Unknown Rx symptoms #90 tabs gabapentin 100 mg capsule 200 mg (2 x 100 mg) PO TID 1 month 06/08/24 Unknown Rx #180 caps zolpidem 10 mg tablet 10 mg PO QHS PRN sleep 06/08/24 Unknown History blood-glucose meter,continuous #1 ea 06/09/24 Unknown Rx (Dexcom G7 Multiple Coil Winder) acetaminophen 500 mg tablet 1,000 mg (2 x 500 mg) PO Q8 PRN 06/16/24 Unknown Rx (Tylenol Extra Strength) fever or pain #90 tabs hyoscyamine sulfate 0.125 mg tablet 0.125 mg PO BID-QID PRN dyspepsia 06/16/24 Unknown Rx #60 tabs lidocaine 5 % topical patch 1 patch topical QDAY PRN pain #30 06/16/24 Unknown Rx ea linaclotide 290 mcg capsule 290 mcg PO QDAY #90 caps 06/16/24 Unknown Rx (Linzess) meclizine 25 mg tablet 25 mg PO BID PRN motion sickness 06/16/24 Unknown Rx #30 tabs aripiprazole 10 mg tablet 10 mg PO QDAY 07/06/24 Unknown History blood-glucose sensor (Dexcom G7 #1 ea 07/09/24 Unknown Rx Sensor device) blood-glucose transmitter (Dexcom #1 ea 07/09/24 Unknown Rx G6 Transmitter device) atogepant 60 mg tablet (Qulipta) 60 mg PO DAILY 07/14/24 Unknown History lamotrigine 200 mg tablet 200 mg PO BID 07/14/24 Unknown History docusate sodium 100 mg capsule 100 mg PO DAILY #90 caps 07/29/24 Unknown Rx (Colace) ketorolac 10 mg tablet 10 mg PO Q8H PRN pain #12 tabs 07/29/24 Unknown Rx pantoprazole 40 mg tablet,delayed 40 mg PO QDAY #90 tabs 07/29/24 Unknown Rx release sumatriptan succinate 100 mg tablet See Rx Instructions PO .COMPLEX 07/29/24 Unknown Rx #12 tabs famotidine 20 mg tablet 20 mg PO QHS 09/07/24 Unknown History fremanezumab-vfrm 225 mg/1.5 mL 225 mg subcut QMONTH 09/07/24 08/24/24 History subcutaneous auto-injector (Ajovy) dulaglutide 1.5 mg/0.5 mL 1.5 mg subcut QWEEK 09/10/24 08/31/24 History subcutaneous pen injector (Carlosulictj) Allergy/AdvReac Type Severity Reaction Status Date / Time bee venom protein (honey Allergy Severe Anaphylaxis Verified 09/10/24 13:08 bee) (bee sting) ziprasidone (From Geodon) Allergy Severe facial Verified 09/10/24 13:08 swelling adhesive tape Allergy Mild Rash Verified 09/10/24 13:08 latex Allergy Mild Rash Verified 09/10/24 13:08 Iodinated Contrast Media Allergy Hives Verified 09/10/24 13:08 nitrofurantoin (From Allergy Other Verified 09/10/24 13:08 Macrobid) ondansetron (From Zofran) Allergy Hives Verified 09/10/24 13:08 propranolol Allergy Angioedema Verified 09/10/24 13:08 Family History Other Autoimmune disorder Bleeding disorder Breast cancer CVA (cerebral vascular accident) Colon cancer Diabetes Heart disease Hypertension Myocardial infarction Ovarian cancer Thyroid disorder Surgical History History of vascular access device Port-A-Cath in place H/O hernia repair H/O wisdom tooth extraction H/O oophorectomy Hx of cholecystectomy H/O tubal ligation Social History adopted: No household members: children and none number of children: 2 current occupational status: unemployed pets and animals: No sexually active: No Smoking Status: Never smoker alcohol intake: never substance use type: does not use caffeine: No frequency: 3-4 times per week do you feel safe at home: Yes Vital Signs Vital Signs Vital Signs: 09/10/24 13:12 09/10/24 13:12 09/10/24 14:02 Temperature 98.1 F 98.1 F Temperature Source Temporal Pulse Rate 96 96 Respiratory Rate 16 16 Respiratory Pattern Normal Blood Pressure 139/85 H 139/85 H Blood Pressure Mean 103 Blood Pressure Source Monitor Blood Pressure Position Semi-Fowlers Blood Pressure Location Right Arm Pulse Ox 100 100 Oxygen Delivery Method Room Air Room Air Weight Weight: 216 lb 4.375 oz Body Mass Index (BMI) 40.8 Physical Exam Const alert and oriented x3 Results Lab / Micro Data Labs: Laboratory Results - last 24 hr 09/10/24 13:04: POC Glucose 113 H Assessment & Plan Assessment/Plan (1) Chronic pain: PLAN: Plan The patient is a 34-year-old female with a history of migraine headaches who requires a Mediport. She has a port in place however this port does not seem to be functioning consistently. She presents today to have this revised or replaced. We discussed the details of the planned procedure and she wishes to proceed. Charges/Coding Visit Charges Inpatient E&M: 98455 Init Hosp L1
[2024-09-10] MEDS: Cefazolin 2 GM in Syringe IV (15:39)
[2024-09-10] MEDS: Lidocaine 1% /Epi 1:100 (20ml) 20 ML Vial (16:55)
[2024-09-10] MEDS: Bupivacaine Mpf 0.5% 30 ML VIAL (16:56)
--- NOTE | 2024-09-10 17:08 | PCM.POST.ANE ---
Anesthesia: Postop Eval I Current Vital Signs Temperature: 97 F Pulse Rate: 78 Blood Pressure: 136/81 Respiratory Rate: 16 Pulse Ox: 95 Oxygen Delivery Method: Room Air Assessment Airway patent: Yes Spontaneous unlabored respirations: Yes nausea: No Vomiting: No Anesthesia Complication: No Fluid Hydration Crystalloid volume administer (ml): 600 Total IV fluid infused: 600 Progress Note Anesthesia document: Postop Eval 1 completed: Yes
--- NOTE | 2024-09-10 17:14 | RAD_ITS ---
PROCEDURE: Chest radiograph REASON FOR EXAM: Line placement TECHNIQUE: Frontal view(s) of the chest COMPARISON: 08/01/2024 FINDINGS: Right MediPort catheter with tip in the proximal SVC. Loop recorder in place. Cardiomediastinal silhouette is within normal limits. No focal infiltrates. Mild linear scarring/atelectasis at the left lower lobe. No sizable pneumothorax. RAD/CXR for Line Placement IMPRESSION: No acute airspace abnormality, specifically no sizable pneumothorax. Reading Location: [facility]
--- NOTE | 2024-09-10 17:14 | EX.PCM.DISCH ---
Discharge Instructions Diet Discharge Diet: Light diet - advance as tolerated Activity Discharge Activity: Return to Normal Activity and May Shower May shower in (days): 1 Ice area for (Minutes): 30 Lifting Restrictions: none Dressing / Incision Call your doctor if your incision/area has: Continuous Slow Oozing, Sudden Increased Bleeding, Increased Pain/ Swelling, Increased Redness, Foul Smelling Discharge and Swelling at the incision site Call your doctor if you observe: Fever of 101 or Higher Remove Dressing in: 5 days Cleanse incision/area with: Soap & Water Follow Up Care Test Results: Test results from this visit will be discussed in further detail at your follow-up appointment, if applicable. Discharge Plan Admission Primary Reason for Your Visit: Port replacement Attending Provider: Artur Shafer Primary Care Provider: Erika Ware Instructions Print Language: [place] Discharge Orders/Prescriptions Prescriptions: Continued buprenorphine-naloxone 8-2 mg film 1 film sublingual DAILY Rx Instructions: weaning LAST DOSE 07/16/24 zolpidem 10 mg tablet 10 mg PO QHS PRN (Reason: sleep) cetirizine 10 mg tablet 10 mg PO DAILY PRN (Reason: allergy symptoms) Qty: 90 1RF gabapentin 100 mg capsule 200 mg PO TID 30 Days Qty: 180 2RF (DME) FreeStyle Sarai 2 Plus Sensor Device See Rx Instructions .Route Qty: 1 5RF Rx Instructions: As directed aripiprazole 10 mg tablet 10 mg PO QDAY pantoprazole 40 mg tablet,delayed release (DR/EC) 40 mg PO QDAY Qty: 90 0RF docusate sodium [Colace] 100 mg capsule 100 mg PO DAILY Qty: 90 0RF sumatriptan succinate 100 mg tablet See Rx Instructions PO .COMPLEX Qty: 12 2RF Rx Instructions: take 1 tab at onset of headache; if no relief, may repeat 1 tab after at least 2 hrs; max = 2 tabs/24 hrs PO ketorolac 10 mg tablet 10 mg PO Q8H PRN (Reason: pain) Qty: 12 0RF Rx Instructions: maximum total duration of 5 days from all oral, intranasal, or parenteral formulations lamotrigine 200 mg tablet 200 mg PO BID Qulipta 60 mg tablet 60 mg PO DAILY Ajovy Autoinjector 225 mg/1.5 mL auto-injector 225 mg SUBCUT QMONTH Patient Comments: Inject 1.5 mL (225 mg total) under the skin every 28 days. famotidine 20 mg tablet 20 mg PO QHS Trulicity 1.5 mg/0.5 mL pen injector 1.5 mg subcut QWEEK sumatriptan succinate 6 mg/0.5 mL pen injector 6 mg SUBCUT Q12H Qty: 1 2RF alcohol swabs Pads, Medicated 1 pad topical DAILY Qty: 200 0RF (DME) OneTouch Verio test strips Strip See Rx Instructions .Route Qty: 100 0RF Rx Instructions: Use one strip once per day to check blood glucose level (DME) lancets [OneTouch UltraSoft 2 Lancet] 30 gauge misc See Rx Instructions .Route Qty: 200 0RF Rx Instructions: Use once daily to check blood glucose level (DME) Dexcom G7 Mill Tender Misc See Rx Instructions .Route Qty: 1 5RF Rx Instructions: As directed Linzess 290 mcg capsule 290 mcg PO QDAY Qty: 90 0RF hyoscyamine sulfate 0.125 mg tablet 0.125 mg PO BID-QID PRN (Reason: dyspepsia) Qty: 60 1RF acetaminophen [Tylenol Extra Strength] 500 mg tablet 1,000 mg PO Q8 PRN (Reason: fever or pain) Qty: 90 2RF meclizine 25 mg tablet 25 mg PO BID PRN (Reason: motion sickness) Qty: 30 1RF lidocaine 5 % adhesive patch,medicated 1 patch topical QDAY PRN (Reason: pain) Qty: 30 3RF Rx Instructions: leave on most painful area for up to 12 hrs (DME) Dexcom G7 Sensor Device See Rx Instructions .Route Qty: 1 5RF Rx Instructions: As directed (DME) Dexcom G6 Transmitter Device See Rx Instructions .Route Qty: 1 5RF Rx Instructions: As directed Referrals / Follow Up: Erika Ware MD [Primary Care Provider] - Disposition Disposition (needs filled in before D/C Order can be placed): Home, Self Care
--- NOTE | 2024-09-10 17:17 | OP.PCM_ITS ---
Problems Associated Problem List Diagnoses (1) Headache: Procedures Cardiovascular CF Procedures [id number]: [id number] Replace tunneled cv cath Operative Report (Standard) Operative Information Date of Procedure: 09/10/24 Pre-Operative Diagnosis: Malfunctioning Mediport Post-Operative Diagnosis: Same Surgery/Procedure Performed: Right IJ Mediport replacement countersinker balance screw hole: No Type of Anesthesia: Local and MAC RN Documented Start/Stop Times: Operation Date: 09/10/24 14:30 Case Time Into Pre-Op 09/10/24 12:49 Anesthesia Start 09/10/24 15:39 Into Room 09/10/24 15:39 Procedure Start 09/10/24 16:07 Procedure End 09/10/24 17:00 Anesthesia End 09/10/24 17:05 Out of Room 09/10/24 17:05 Into Recovery 09/10/24 17:07 Procedure Start Time: 16:07 Procedure Stop Time: 17:00 Select all DRAINS/GRAFTS/IMPLANTS that apply: Implanted device Implanted device details: 8 [place] PowerPort Special Medications: PowerPort Mediport Estimated Blood Loss: 10 mL Specimen collected: No Description of surgery: The patient is a 34-year-old female with a history of chronic migraine headaches. She gets ketamine infusions for this reason. She is also very poor IV access individual. She has had multiple med ports over the years. I had placed a previous Mediport within the past couple of months and this seems to be working without incident up until recently. The infusion center noted that this was not drawing or flushing consistently. Patient return to my office to discuss having this revised or replaced. Initially there was some concern that there may be a kink in the tubing causing the intermittent malfunction. The patient was brought to the operating room today following informed consent. Preoperative antibiotics were given and a timeout was performed. She is placed supine on the operative table with arms outstretched on arm boards. MAC anesthesia was induced. The area was prepped and draped in the usual manner. Local anesthetic was infiltrated into the previous incision. Incision was then reopened using #15 blade. Bovie electrocautery was then used dissect down through subcutaneous tissue. At this level the port was exteriorized and the 2 anchoring sutures were removed. I tested the port by trying to draw and flush. It really did not draw back any blood. It did seem to to flush fairly well but there may have been some resistance. Since there really was not a good blood flow I felt that this would likely benefit from being replaced. I reopened the neck incision and was able to grasp the tubing with a hemostat. I cut the tubing at its junction with the port. I then pulled out the other end of the tubing and then used a guidewire to insert the guidewire down the tubing. This passed easily. C-arm was brought in and confirmed good positioning of the guidewire. The old Mediport tubing was then removed thus leaving the guidewire in place. The peel-away sheath and dilator were then threaded over the guidewire. The guidewire was removed and the end of the sheath and dilator were then capped. I then retunneled new tubing and initially trimmed this to about 20 cm. I attached it to the port hub and affixed this to the chest wall using Prolene suture. I then threaded the free end of the tubing down the sheath. The sheath was then removed as the tubing was advanced. It gabriele and flushed easily with injectable saline however on C arm it noted that the tip of the tubing was pretty far advanced. The hub was then freed up again and was then pulled back until the tip of the tubing was in a more desirable location and then trimmed off about another 5 cm of tubing and then reattach this to the port hub. This appeared much better on imaging. It gabriele and flushed easily. I reattached it to the chest wall and injected heparin flush. The incisions were then closed with 3-0 Vicryl and 4-0 Vicryl. Skin glue was then applied along with sterile 2 x 2 then a large OpSite. She was awakened by anesthesia and taken to recovery in good condition. Surgical Findings: Nonfunctioning right IJ Mediport Complications Complications: No Admit VTE Documentation VTE Present on Admission: No VTE Mechan Device Prophylaxis: SCD's VTE Pharm Prophylaxis ordered?: No Reason prophylaxis not ordered: Treatment Not Indicated
--- NOTE | 2024-09-10 17:49 | DCINST_ITS ---
Discharge Instructions Diet Discharge Diet: Light diet - advance as tolerated Activity May shower in (days): 1 Ice area for (Minutes): 30 Dressing / Incision Call your doctor if your incision/area has: Continuous Slow Oozing, Sudden Increased Bleeding, Increased Pain/ Swelling, Increased Redness, Foul Smelling Discharge and Swelling at the incision site Call your doctor if you observe: Fever of 101 or Higher Cleanse incision/area with: Soap & Water Follow Up Care Test Results: Test results from this visit will be discussed in further detail at your follow- up appointment, if applicable. Discharge Plan Admission Primary Reason for Your Visit: Port replacement Attending Provider: Artur Shafer Primary Care Provider: Erika Ware Instructions Print Language: Swedish Discharge Orders/Prescriptions Prescriptions: New metoclopramide HCl [Reglan] 5 mg tablet 5 mg PO Q6H PRN (Reason: nausea and vomiting) 3 Days Qty: 10 0RF oxycodone-acetaminophen [Percocet] 5-325 mg tablet 1 tab PO Q8H PRN (Reason: pain) 3 Days Qty: 7 0RF Continued buprenorphine-naloxone 8-2 mg film 1 film sublingual DAILY Rx Instructions: weaning LAST DOSE 07/16/24 zolpidem 10 mg tablet 10 mg PO QHS PRN (Reason: sleep) cetirizine 10 mg tablet 10 mg PO DAILY PRN (Reason: allergy symptoms) Qty: 90 1RF gabapentin 100 mg capsule 200 mg PO TID 30 Days Qty: 180 2RF (DME) FreeStyle Sarai 2 Plus Sensor Device See Rx Instructions .Route Qty: 1 5RF Rx Instructions: As directed aripiprazole 10 mg tablet 10 mg PO QDAY pantoprazole 40 mg tablet,delayed release (DR/EC) 40 mg PO QDAY Qty: 90 0RF docusate sodium [Colace] 100 mg capsule 100 mg PO DAILY Qty: 90 0RF sumatriptan succinate 100 mg tablet See Rx Instructions PO .COMPLEX Qty: 12 2RF Rx Instructions: take 1 tab at onset of headache; if no relief, may repeat 1 tab after at least 2 hrs; max = 2 tabs/24 hrs PO ketorolac 10 mg tablet 10 mg PO Q8H PRN (Reason: pain) Qty: 12 0RF Rx Instructions: maximum total duration of 5 days from all oral, intranasal, or parenteral formulations lamotrigine 200 mg tablet 200 mg PO BID Qulipta 60 mg tablet 60 mg PO DAILY Ajovy Autoinjector 225 mg/1.5 mL auto-injector 225 mg SUBCUT QMONTH Patient Comments: Inject 1.5 mL (225 mg total) under the skin every 28 days. famotidine 20 mg tablet 20 mg PO QHS Trulicity 1.5 mg/0.5 mL pen injector 1.5 mg subcut QWEEK sumatriptan succinate 6 mg/0.5 mL pen injector 6 mg SUBCUT Q12H Qty: 1 2RF alcohol swabs Pads, Medicated 1 pad topical DAILY Qty: 200 0RF (DME) OneTouch Verio test strips Strip See Rx Instructions .Route Qty: 100 0RF Rx Instructions: Use one strip once per day to check blood glucose level (DME) lancets [OneTouch UltraSoft 2 Lancet] 30 gauge misc See Rx Instructions .Route Qty: 200 0RF Rx Instructions: Use once daily to check blood glucose level (DME) Dexcom G7 Health Assessment And Treatment Teacher Misc See Rx Instructions .Route Qty: 1 5RF Rx Instructions: As directed Linzess 290 mcg capsule 290 mcg PO QDAY Qty: 90 0RF hyoscyamine sulfate 0.125 mg tablet 0.125 mg PO BID-QID PRN (Reason: dyspepsia) Qty: 60 1RF acetaminophen [Tylenol Extra Strength] 500 mg tablet 1,000 mg PO Q8 PRN (Reason: fever or pain) Qty: 90 2RF meclizine 25 mg tablet 25 mg PO BID PRN (Reason: motion sickness) Qty: 30 1RF lidocaine 5 % adhesive patch,medicated 1 patch topical QDAY PRN (Reason: pain) Qty: 30 3RF Rx Instructions: leave on most painful area for up to 12 hrs (DME) Dexcom G7 Sensor Device See Rx Instructions .Route Qty: 1 5RF Rx Instructions: As directed (DME) Dexcom G6 Transmitter Device See Rx Instructions .Route Qty: 1 5RF Rx Instructions: As directed Referrals / Follow Up: Erika Ware MD [Primary Care Provider] - Disposition Disposition (needs filled in before D/C Order can be placed): Home, Self Care
[2024-09-10] MEDS: oxyCODONE 5 MG Tablet PO (18:25)
[2024-09-10] MEDS: Acetaminophen 325 MG Tablet PO (18:26)
== END 2024-09-10 18:50 | disposition home or self-care (01) ==
LOC: SDC 12:47 → AC 12:49
PROVIDERS: PCP Internal Medicine; Referring Provider Surgery; Visit Provider Surgery
PROC: (CPT 36581; principal; 2024-09-10 14:15)
DX: T82.519A Breakdown (mechanical) of unspecified cardiac and vascular devices and implants, initial encounter (principal); E11.40 Type 2 diabetes mellitus with diabetic neuropathy, unspecified; G89.29 Other chronic pain; Z79.85 Long-term (current) use of injectable non-insulin antidiabetic drugs; K21.9 Gastro-esophageal reflux disease without esophagitis; G43.709 Chronic migraine without aura, not intractable, without status migrainosus; Y71.8 Miscellaneous cardiovascular devices associated with adverse incidents, not elsewhere classified
CPT/HCPCS: 36581; 00532; 71045; 77001; 82962; A4216; C1788; J2405

== ENCOUNTER 2024-09-13 17:34 | Inpatient (IN) | payer MEDICAID, SELFPAY ==
[2024-09-13 17:35] VITALS: BP 138/85; PULSE 122; RESP 18; TEMP 36.8; O2SAT 99; BMI 40.8
--- NOTE | 2024-09-13 17:46 | EDS_ITS ---
HPI History of Present Illness Chief Complaint: Wound Check Narrative Narrative: 34-year-old female, poor vascular access, history of migraines and diabetes and factor V Leiden presents with Mediport infection. She states that she had a Mediport placed by Dr. Shafer/changed out on , approximately 4 days ago. Yesterday evening she started noticing redness and itching with what her cousin calls a rash to her neck. Today she had a fever as high as 101 degrees and drainage of pus from the area in her neck as well as over the Mediport in her right chest. She states that Dr. Shafer had to go through her neck to place a Mediport in her chest. She has noticed purulent drainage from both sites since yesterday evening. No exacerbating or alleviating factors. [facility] Medical History Implantable loop recorder present Wears glasses Anxiety MRSA infection Substance abuse History of steroid therapy Diabetes Injury of head and neck History of IBS Gastric reflux Open wound of right elbow Leg wound, right Difficult intravenous access Neuropathy Candidiasis Recurrent pulmonary emboli delivery delivered Arthritis Head injury Chest pain Prolonged QT interval Diabetes PCOS (polycystic ovarian syndrome) PTSD (post-traumatic stress disorder) Factor V Leiden Anxiety Depression Pulmonary embolism DVT (deep venous thrombosis) TIA (transient ischemic attack) Ovarian cyst Home Medications ?Medication ?Instructions ?Recorded ?Last Taken ?Type sumatriptan succinate 6 mg/0.5 mL 6 mg (0.5 mL) subcut Q12H MIGRAINE 01/02/24 Unknown Rx subcutaneous pen injector #1 mL alcohol swabs 1 pad topical DAILY #200 ea 01/21/24 Unknown Rx blood sugar diagnostic (OneTouch #100 ea 01/21/24 Unkn own Rx Verio test strips) lancets 30 gauge (OneTouch #200 ea 01/23/24 Unknown Rx UltraSoft 2 Lancet) blood-glucose sensor (FreeStyle #1 ea 06/08/24 Unknown Rx Sarai 2 Plus Sensor device) buprenorphine 8 mg-naloxone 2 mg 1 film sublingual CARLOS LY 06/08/24 09/07/24 History sublingual film cetirizine 10 mg tablet 10 mg PO DAILY PRN allergy 1 08/08/23 Unknown Rx symptoms #90 tabs zolpidem 10 mg tablet 10 mg PO QHS PRN sleep 06/08 Unknown History blood-glucose meter,continuous #1 ea 06/09/24 Unknown Rx (Dexcom G7 Build Engineer) lidocaine 5 % topical patch 1 patch topical QDAY PRN p ain #30 06/16/24 Unknown Rx ea linaclotide 290 mcg capsule 290 mcg PO QDAY #90 caps 1 08/17/23 Unknown Rx (Linzess) meclizine 25 mg tablet 25 mg PO BID PRN motion sick ness 06/16/24 Unknown Rx #30 tabs aripiprazole 10 mg tablet 10 mg PO QDAY 07/06/24 Unkno wn History blood-glucose sensor (Dexcom G7 #1 ea 07/09/24 Unknown Rx Sensor device) blood-glucose transmitter (Dexcom #1 ea 07/09/24 Unkno wn Rx G6 Transmitter device) atogepant 60 mg tablet (Qulipta) 60 mg PO DAILY Unknown History lamotrigine 200 mg tablet 200 mg PO BID 07/14/24 Unkno wn History docusate sodium 100 mg capsule 100 mg PO DAILY #90 cap s 07/29/24 Unknown Rx (Colace) pantoprazole 40 mg tablet,delayed 40 mg PO QDAY #90 ta bs 07/29/24 Unknown Rx release sumatriptan succinate 100 mg tablet See Rx Instruction s PO .COMPLEX 07/29/24 Unknown Rx #12 tabs famotidine 20 mg tablet 20 mg PO QHS 09/07/24 Unknow n History fremanezumab-vfrm 225 mg/1.5 mL 225 mg subcut QMONTH 0 09/07/24 08/24/24 History subcutaneous auto-injector (Ajovy) dulaglutide 1.5 mg/0.5 mL 1.5 mg subcut QWEEK 09/10/24 08/31/24 History subcutaneous pen injector (Trulicity) metoclopramide HCl 5 mg tablet 5 mg PO Q6H PRN nausea and 09/10/24 Unknown Rx (Reglan) vomiting 3 days #10 tabs acetaminophen 500 mg tablet 1,000 mg (2 x 500 mg) PO Q 8 PRN 09/11/24 Unknown Rx (Tylenol Extra Strength) fever or pain #90 tabs tramadol 50 mg tablet 50 mg PO Q8H PRN pain 3 days #5 09/11/24 Unknown Rx tabs jqimwjzcqe-nluagpvapqxue-bizohfyx 1 tab PO Q4H PRN PRN headache 09/13/24 Unknown History 50 mg-325 mg-40 mg tablet diclofenac sodium 75 mg 75 mg PO BID 09/13/24 Unknow n History tablet,delayed release diphenhydramine HCl 12.5 mg/5 mL 25 mg PO 4X/DAY PRN P RN allergies 09/13/24 Unknown History oral liquid (M-Dryl) gabapentin 400 mg capsule 400 mg PO 3XD 09/13/24 Unkno wn History Allergy/AdvReac Type Severity Reaction Status Date / Time bee venom protein (honey Allergy Severe Anaphylaxis Verified 09/13/24 17:35 bee) (bee sting) ziprasidone (From Geodon) Allergy Severe facial Verified 09/13/24 17:35 swelling adhesive tape Allergy Mild Rash Verified 09/13/24 17:35 latex Allergy Mild Rash Verified 09/13/24 17:35 Iodinated Contrast Media Allergy Hives Verified 09/13/24 17:35 nitrofurantoin (From Allergy Other Verified 09/13/24 17:35 Macrobid) ondansetron (From Zofran) Allergy Hives Verified 09/13/24 17:35 propranolol Allergy Angioedema Verified 09/13/24 17:35 Family History Other Autoimmune disorder Bleeding disorder Breast cancer CVA (cerebral vascular accident) Colon cancer Diabetes Heart disease Hypertension Myocardial infarction Ovarian cancer Thyroid disorder Surgical History History of vascular access device Port-A-Cath in place H/O hernia repair H/O wisdom tooth extraction H/O oophorectomy Hx of cholecystectomy H/O tubal ligation Social History adopted: No household members: children and none number of children: 2 current occupational status: unemployed pets and animals: No sexually active: No Smoking Status: Never smoker alcohol intake: never substance use type: does not use caffeine: No frequency: 3-4 times per week do you feel safe at home: Yes ROS ROS ED ROS Narrative Review of systems positive for drainage of pus from wounds and right neck and right chest. Positive fever today as high as 101 ?F. Denies other symptoms with the exception of redness to her right chest and neck. EXAM Physical Exam Narrative Exam Narrative: Afebrile. Vital signs noted. Nontoxic-appearing. Cardiovascular examination reveals tachycardia. Lungs clear to auscultation bilaterally. Abdomen is soft and nontender. Neurological examination nonfocal and nonlateralizing. Inspection of the right chest and right neck does reveal mild surrounding erythema without crepitance or fluctuance. Small amount of purulent drainage noted on chest wall bandage, and Band-Aid on right neck. No stridor. Const Vital Signs: 09/13/24 17:35 09/13/24 18:23 09/13/24 18:23 Temperature 98.3 F 98.2 F 98.2 F Temperature Source Oral Oral Pulse Rate 122 H 106 H 106 H Respiratory Rate 18 18 18 Blood Pressure 138/85 H 143/99 H 143/99 H Blood Pressure Mean 102 113 113 Pulse Ox 99 100 100 Oxygen Delivery Method Room Air Room Air 09/13/24 19:11 Temperature 98.3 F Temperature Source Oral Pulse Rate 103 H Respiratory Rate 16 Blood Pressure 124/94 H Blood Pressure Mean 104 Pulse Ox 98 Oxygen Delivery Method Room Air MDM MDM MDM Narrative Medical decision making narrative: No feel differential diagnosis is applicable in this case. Do feel that she pr obably has a wound infection/port infection. She had called Dr. Sheffield who is on-call currently. He stated that he would like to be notified upon her arrival. I did order a CBC and BMP with saline lock as her port cannot be used because of the risk of possible/probable infection. I discussed patient with Dr. Sheffield who would like blood cultures ordered and the patient given Zosyn. He will admit her to the general medical/surgical floor. Of note, venipuncture and IV placement was attempted several times even under ultrasound guidance. Eventually, RNs were able to place an EJ. She will be administered the IV antibiotics and admitted to the floor. Dr. Sheffield has seen and evaluated the patient in the ED as well. He states that she does not want bedside removal of the port. I reviewed her laboratory work and she has normal white count of 5.7 with hemoglobin 11.6, hematocrit 33.9. Platelet count normal at 242. Electrolyte panel is significant for creatinine of 0.59, glucose 121 with a normal anion gap of 10. Disposition is admit in stable condition. History & Record Review Discussion w/independent historian: Patient and Family Additional record(s) reviewed:: Prior inpatient record (Surgical note/procedure note) Lab Data Attestation: I reviewed the patient's lab results. (CBC is returned with normal white count of 5.7 and hemoglobin 11.6.) Labs: Laboratory Results - last 24 hr 09/13/24 19:28 WBC 5.7 RBC 4.09 L Hgb 11.6 L Hct 33.9 L MCV 82.9 MCH 28.4 MCHC 34.2 RDW Std Deviation 37.1 RDW Coeff of Millie 12.3 Plt Count 242 MPV 8.3 Immature Gran % (Auto) 0.400 Neut % (Auto) 49.6 Lymph % (Auto) 40.3 [place] % (Auto) 6.1 Eos % (Auto) 3.2 Baso % (Auto) 0.4 Absolute Neuts (auto) 2.8 Absolute Lymphs (auto) 2.30 Nucleated RBC % 0 Sodium 138 Potassium 3.9 Chloride Direct 104 Carbon Dioxide 24.4 Anion Gap 10 BUN 12 Creatinine 0.59 L Estim Creat Clear Calc 146.67 Est GFR (MDRD) Non-Af 123 BUN/Creatinine Ratio 20.7 H Glucose 121 H Calcium 10.3 Management Discussion w/another healthcare provider: Music Composer (Dr. Sheffield) Discharge Plan Dx/Rx/DC Orders Clinical Impression: Wound infection following procedure, Cellulitis Disposition Disposition: Acute Care Hospital [facility] Discharge Date/Time: 09/13/24 19:51
[2024-09-13 18:23] VITALS: BP 143/99; PULSE 106; RESP 18; TEMP 36.8; O2SAT 100
--- NOTE | 2024-09-13 18:23 | ED.RN ---
ATB given late due to difficult IV access
[2024-09-13 19:11] VITALS: BP 124/94; PULSE 103; RESP 16; TEMP 36.8; O2SAT 98
[2024-09-13 19:16] VITALS: RESP 15; O2SAT 99; BMI 40.4
--- NOTE | 2024-09-13 19:30 | HP.PCM.SX_ITS ---
HPI - General General Date of Admission: 09/13/24 HPI Narrative ERIN TORRES, is a 34 F who presents with port site infection. The patient has had several ports in the past. She has poor vascular access. She had her port removed on and replaced and she reports that there is purulent drainage from the port site and from the neck site. She is also having a rash that is spreading across her chest. [facility] Medical History Implantable loop recorder present Wears glasses Anxiety MRSA infection Substance abuse History of steroid therapy Diabetes Injury of head and neck History of IBS Gastric reflux Open wound of right elbow Leg wound, right Difficult intravenous access Neuropathy Candidiasis Recurrent pulmonary emboli delivery delivered Arthritis Head injury Chest pain Prolonged QT interval Diabetes PCOS (polycystic ovarian syndrome) PTSD (post-traumatic stress disorder) Factor V Leiden Anxiety Depression Pulmonary embolism DVT (deep venous thrombosis) TIA (transient ischemic attack) Ovarian cyst Home Medications ?Medication ?Instructions ?Recorded ?Last Taken ?Type sumatriptan succinate 6 mg/0.5 mL 6 mg (0.5 mL) subcut Q12H MIGRAINE 01/02/24 Unknown Rx subcutaneous pen injector #1 mL alcohol swabs 1 pad topical DAILY #200 ea 01/21/24 Unknown Rx blood sugar diagnostic (OneTouch #100 ea 01/21/24 Unkn own Rx Verio test strips) lancets 30 gauge (OneTouch #200 ea 01/23/24 Unknown Rx UltraSoft 2 Lancet) blood-glucose sensor (FreeStyle #1 ea 06/08/24 Unknown Rx Sarai 2 Plus Sensor device) buprenorphine 8 mg-naloxone 2 mg 1 film sublingual CARLOS LY 06/08/24 09/07/24 History sublingual film cetirizine 10 mg tablet 10 mg PO DAILY PRN allergy 1 08/08/23 Unknown Rx symptoms #90 tabs zolpidem 10 mg tablet 10 mg PO QHS PRN sleep 06/08 Unknown History blood-glucose meter,continuous #1 ea 06/09/24 Unknown Rx (Dexcom G7 Conflict Resolution Professional) lidocaine 5 % topical patch 1 patch topical QDAY PRN p ain #30 06/16/24 Unknown Rx ea linaclotide 290 mcg capsule 290 mcg PO QDAY #90 caps 1 08/17/23 Unknown Rx (Linzess) meclizine 25 mg tablet 25 mg PO BID PRN motion sick ness 06/16/24 Unknown Rx #30 tabs aripiprazole 10 mg tablet 10 mg PO QDAY 07/06/24 Unkno wn History blood-glucose sensor (Dexcom G7 #1 ea 07/09/24 Unknown Rx Sensor device) blood-glucose transmitter (Dexcom #1 ea 07/09/24 Unkno wn Rx G6 Transmitter device) atogepant 60 mg tablet (Qulipta) 60 mg PO DAILY Unknown History lamotrigine 200 mg tablet 200 mg PO BID 07/14/24 Unkno wn History docusate sodium 100 mg capsule 100 mg PO DAILY #90 cap s 07/29/24 Unknown Rx (Colace) pantoprazole 40 mg tablet,delayed 40 mg PO QDAY #90 ta bs 07/29/24 Unknown Rx release sumatriptan succinate 100 mg tablet See Rx Instruction s PO .COMPLEX 07/29/24 Unknown Rx #12 tabs famotidine 20 mg tablet 20 mg PO QHS 09/07/24 Unknow n History fremanezumab-vfrm 225 mg/1.5 mL 225 mg subcut QMONTH 0 09/07/24 08/24/24 History subcutaneous auto-injector (Ajovy) dulaglutide 1.5 mg/0.5 mL 1.5 mg subcut QWEEK 09/10/24 08/31/24 History subcutaneous pen injector (Trulicity) metoclopramide HCl 5 mg tablet 5 mg PO Q6H PRN nausea and 09/10/24 Unknown Rx (Reglan) vomiting 3 days #10 tabs acetaminophen 500 mg tablet 1,000 mg (2 x 500 mg) PO Q 8 PRN 09/11/24 Unknown Rx (Tylenol Extra Strength) fever or pain #90 tabs tramadol 50 mg tablet 50 mg PO Q8H PRN pain 3 days #5 09/11/24 Unknown Rx tabs euluuearoc-hhyvkyuyxbsml-bawxvuwm 1 tab PO Q4H PRN PRN headache 09/13/24 Unknown History 50 mg-325 mg-40 mg tablet diclofenac sodium 75 mg 75 mg PO BID 09/13/24 Unknow n History tablet,delayed release diphenhydramine HCl 12.5 mg/5 mL 25 mg PO 4X/DAY PRN P RN allergies 09/13/24 Unknown History oral liquid (M-Dryl) gabapentin 400 mg capsule 400 mg PO 3XD 09/13/24 Unkno wn History Allergy/AdvReac Type Severity Reaction Status Date / Time bee venom protein (honey Allergy Severe Anaphylaxis Verified 09/13/24 17:35 bee) (bee sting) ziprasidone (From Geodon) Allergy Severe facial Verified 09/13/24 17:35 swelling adhesive tape Allergy Mild Rash Verified 09/13/24 17:35 latex Allergy Mild Rash Verified 09/13/24 17:35 Iodinated Contrast Media Allergy Hives Verified 09/13/24 17:35 nitrofurantoin (From Allergy Other Verified 09/13/24 17:35 Macrobid) ondansetron (From Zofran) Allergy Hives Verified 09/13/24 17:35 propranolol Allergy Angioedema Verified 09/13/24 17:35 Family History Other Autoimmune disorder Bleeding disorder Breast cancer CVA (cerebral vascular accident) Colon cancer Diabetes Heart disease Hypertension Myocardial infarction Ovarian cancer Thyroid disorder Surgical History History of vascular access device Port-A-Cath in place H/O hernia repair H/O wisdom tooth extraction H/O oophorectomy Hx of cholecystectomy H/O tubal ligation Social History adopted: No household members: children and none number of children: 2 current occupational status: unemployed pets and animals: No sexually active: No Smoking Status: Never smoker alcohol intake: never substance use type: does not use caffeine: No frequency: 3-4 times per week do you feel safe at home: Yes ROS Constitutional Constitutional: Denies anorexia, chills, fatigue or fever(s) Eyes Eyes: Denies blurry vision ENT HEENT: Denies abnormal hearing Cardiovascular Cardiovascular: Denies chest pain Respiratory/Chest Respiratory/Chest: Denies cough, dyspnea or wheezing Gastrointestinal Gastrointestinal: Denies abdominal pain, nausea or vomiting Genitourinary Genitourinary: Denies change in urinary stream Musculoskeletal Musculoskeletal: Denies abnormal gait Integumentary Integumentary: Denies jaundice or new lesions Vital Signs Vital Signs Vital Signs: 09/13/24 17:35 09/13/24 18:23 09/13/24 18:23 Temperature 98.3 F 98.2 F 98.2 F Temperature Source Oral Oral Pulse Rate 122 H 106 H 106 H Respiratory Rate 18 18 18 Blood Pressure 138/85 H 143/99 H 143/99 H Blood Pressure Mean 102 113 113 Pulse Ox 99 100 100 Oxygen Delivery Method Room Air Room Air 09/13/24 19:11 Temperature 98.3 F Temperature Source Oral Pulse Rate 103 H Respiratory Rate 16 Blood Pressure 124/94 H Blood Pressure Mean 104 Pulse Ox 98 Oxygen Delivery Method Room Air Weight Weight: 216 lb Body Mass Index (BMI) 40.8 Physical Exam Const oriented x3 and no apparent distress Resp normal respiratory effort GI soft to palpation and non-tender Assessment & Plan Assessment/Plan (1) Local infection due to Port-A-Cath: PLAN: The patient has an infection of her wound at the port insertion site as well as in the next site. Both areas have purulent drainage with erythema. We had difficulty obtaining IV access but an EJ was able to be placed on the left side. The patient would not allow me to remove the port at the bedside so I will schedule her for removal in the OR tomorrow afternoon. I will start IV antibiotics. N.p.o. after midnight. Pepe Sheffield MD Pager: [facility] [address] [place] [address], [address] [place] [address] Office:
[2024-09-13 19:34] VITALS: BP 129/91; PULSE 91; RESP 15; TEMP 36.7; O2SAT 99
[2024-09-13 19:37] LABS: Absolute Neutrophil Count 2.8 X10^3/uL (2.0-7.7); Basophil# 0.02 X10^3/uL; Basophil% 0.4 % (0-1); Eosinophil# 0.18 X10^3/uL; Eosinophils% 3.2 % (0-5); Hematocrit 33.9 % (37-47); Hemoglobin 11.6 g/dL (12.0-15.0); Lymphocyte % 40.3 % (19-41); Mean Corp Hgb Conc 34.2 g/dL (32-36); Mean Corpuscular Hgb 28.4 pg (27.0-32.0); Mean Corpuscular Volume 82.9 fL (81-99); Mean Platelet Vol. 8.3 fl (6.2-12.0); Monocyte# 0.35 X10^3/uL; Monocyte% 6.1 % (0-10); NRBC Flagged by Analyzer 0 % (0-5); Neutrophil # 2.84 X10^3/uL (2.7-7.7); Neutrophil % 49.6 % (47-70); Platelet Count 242 K/mm3 (150-450); RBC Distribution Width CV 12.3 % (11.6-14.6); RBC Distribution Width SD 37.1 fl (35.1-43.9); Red Blood Count 4.09 M/mm3 (4.2-5.4); White Blood Count 5.7 K/mm3 (4.4-11.0)
[2024-09-13] MEDS: Piperacil/Tazobactam 3.375 GM in 0.9% Normal Saline (50mL MB+) 50 ML IV (19:49)
[2024-09-13 20:11] LABS: Anion Gap 10 (5-15); BUN 12 mg/dL (4-19); BUN/Creat Ratio 20.7 RATIO (10-20); Calcium 10.3 mg/dL (7.6-11.0); Carbon Dioxide 24.4 mmol/L (22.0-29.0); Chloride 104 mmol/L (96-108); Creatinine, Serum 0.59 mg/dL (0.70-1.20); EST Glomerular Filtration Rate 123 (>60); Estimated Creatinine Clearance 146.67 ml/min (50-250); Glucose 121 mg/dL (70-99); Potassium 3.9 mmol/L (3.3-5.1); Sodium Level 138 mmol/L (133-145)
[2024-09-13] MEDS: Famotidine 20 MG Tablet PO (22:21)
[2024-09-13] MEDS: 0.9% Normal Saline (1000mL) 1,000 ML 60 ML IV (22:22)
[2024-09-13] MEDS: Gabapentin 400 MG Capsule PO (22:22)
[2024-09-13] MEDS: DiphenhydrAMINE 50 MG/ML Syringe IV (22:22)
[2024-09-13] MEDS: Metoclopramide 5 MG TABLET PO (22:35)
[2024-09-13] MEDS: Acetaminophen 325 MG Tablet 650 MG PO (22:35)
[2024-09-14] VITALS (10 sets, daily range): BP systolic 102–140; BP diastolic 61–93; PULSE 76–84; RESP 15–18; TEMP 36.2–37.2; O2SAT 95–100; BMI 40.4
[2024-09-14] MEDS: Zolpidem Tartrate 5 MG Tablet PO (00:51)
--- NOTE | 2024-09-14 02:30 | EKG12_ITS ---
Test Reason : PREOP Blood Pressure : */* mmHG Vent. Rate : 75 BPM Atrial Rate : 75 BPM P-R Int : 188 ms QRS Dur : 92 ms QT Int : 404 ms P-R-T Axes : 30 26 30 degrees QTcB Int : 451 ms Normal sinus rhythm Normal ECG When compared with ECG of 01-Nov-2023 15:09, Vent. rate has decreased by 45 bpm Nonspecific T wave abnormality, improved in Lateral leads Confirmed by Rajat Lawson ([id number]), film editor FAWN HAYWOOD ([id number]) on 09/14/2024 9:47:40 AM Referred By: CHAZ Confirmed By: Rajat Lawson
[2024-09-14] MEDS: DiphenhydrAMINE 50 MG/ML Syringe IV ×3 (05:52→18:28)
[2024-09-14] MEDS: Piperacil/Tazobactam 3.375 GM in 0.9% Normal Saline (50mL MB+) 50 ML IV ×3 (06:06→22:07)
[2024-09-14 06:44] LABS: Bedside Glucose 103 mg/dL (74-106)
--- NOTE | 2024-09-14 07:31 | PCM.PN.SRG ---
Subjective Subjective Patient evaluated resting comfortably in bed. She continues to note drainage from her right port site that was placed on 09/10/[address] Shafer. Objective Data Objective Data Vital Signs: Vital Signs Temp Pulse Resp BP Pulse Ox O2 Del Method 97.8 F 82 15 102/73 97 Room Air 09/14/24 03:00 09/14/24 03:00 09/14/24 03:00 09/14/24 03:00 09/14/24 03:00 09/14/24 03:00 Oxygen Delivery Method Room Air Weight: 213 lb 13.574 oz Body Mass Index (BMI) 40.4 Intake & Output: Intake and Output for Last 24 Hours 09/12/24 09/13/24 09/14/24 23:59 23:59 23:59 Intake Total 50 / 450 400 / 400 Balance 50 / 450 400 / 400 Lab / Micro Data 09/13/24 19:28 09/13/24 19:28 Labs: Laboratory Results - last 24 hr 09/13/24 19:28: WBC 5.7, RBC 4.09 L, Hgb 11.6 L, Hct 33.9 L, MCV 82.9, MCH 28.4, MCHC 34.2, RDW Std Deviation 37.1, RDW Coeff of Millie 12.3, Plt Count 242, MPV 8.3, Immature Gran % (Auto) 0.400, Neut % (Auto) 49.6, Lymph % (Auto) 40.3, Marshall % (Auto) 6.1, Eos % (Auto) 3.2, Baso % (Auto) 0.4, Absolute Neuts (auto) 2.8, Absolute Lymphs (auto) 2.30, Nucleated RBC % 0, Sodium 138, Potassium 3.9, Chloride Direct 104, Carbon Dioxide 24.4, Anion Gap 10, BUN 12, Creatinine 0.59 L, Estim Creat Clear Calc 146.67, Est GFR (MDRD) Non-Af 123, BUN/Creatinine Ratio 20.7 H, Glucose 121 H, Calcium 10.3 09/14/24 05:56: POC Glucose 103 Physical Exam Chest Chest Narrative: Right chest- incision with purulent material being expressed. Erythema at the port site and insertion site. Assessment & Plan Assessment/Plan (1) Local infection due to Port-A-Cath: (2) Cellulitis: PLAN: Plan I am following this patient in conjunction with Dr. Enciso. He has independently evaluated this patient. Labs were being drawn at bedside Plan is to proceed with port removal this morning with Dr. Sheffield Charges/Coding Visit Charges Inpatient E&M: 81921 Subs Hosp L1
[2024-09-14 07:53] LABS: Absolute Lymphocyte Count 3.12 X10^3/uL (0.83-4.51); Basophil# 0.04 X10^3/uL; Basophil% 0.7 % (0-1); Eosinophil# 0.15 X10^3/uL; Eosinophils% 2.7 % (0-5); Hematocrit 33.1 % (37-47); Hemoglobin 10.9 g/dL (12.0-15.0); Lymphocyte # 3.12 X10^3/ul (0.83-4.51); Lymphocyte % 55.1 % (19-41); Mean Corp Hgb Conc 32.9 g/dL (32-36); Mean Corpuscular Hgb 27.8 pg (27.0-32.0); Mean Corpuscular Volume 84.4 fL (81-99); Mean Platelet Vol. 8.7 fl (6.2-12.0); Monocyte# 0.37 X10^3/uL; Monocyte% 6.5 % (0-10); NRBC Flagged by Analyzer 0 % (0-5); Neutrophil # 1.97 X10^3/uL (2.7-7.7); Neutrophil % 34.8 % (47-70); Platelet Count 216 K/mm3 (150-450); RBC Distribution Width CV 12.4 % (11.6-14.6); RBC Distribution Width SD 38.4 fl (35.1-43.9); Red Blood Count 3.92 M/mm3 (4.2-5.4); White Blood Count 5.7 K/mm3 (4.4-11.0)
[2024-09-14] MEDS: Ketorolac 15 MG/ML Vial IV ×2 (08:02→17:29)
[2024-09-14 09:23] LABS: Anion Gap 10 (5-15); BUN 13 mg/dL (4-19); BUN/Creat Ratio 23.6 RATIO (10-20); Calcium 9.2 mg/dL (7.6-11.0); Carbon Dioxide 20.9 mmol/L (22.0-29.0); Chloride 106 mmol/L (96-108); Creatinine, Serum 0.57 mg/dL (0.70-1.20); EST Glomerular Filtration Rate 124 (>60); Estimated Creatinine Clearance 150.94 ml/min (50-250); Glucose 94 mg/dL (70-99); Potassium 4.2 mmol/L (3.3-5.1); Sodium Level 137 mmol/L (133-145)
--- NOTE | 2024-09-14 10:14 | PRE.ANES_ITS ---
ASA Classification* ASA Classification ASA Classification: 3 Assessment & Plan Anesthesia* Anesthesia Assessment Anesthesia Assessment: Discussed sedation and/or anesthesia options, risks, benefits, and alternatives with patient/parents/legal guardian/POA. Questions invited. The patient/parents/legal guardian/POA seems to understand and agrees to proceed with anesthesia plan. Reviewed the physical assessment, medical history, allergy history and patient home medications list prior to surgery/procedure/anesthetic and documented any changes. Performed airway and anesthesia risk assessments. Anesthesia Type Anesthesia Type: MAC (Allergy to zofran) Anesthesia Focused Assessment* Temperature: 97.5 F Pulse Rate: 80 Blood Pressure: 122/61 Respiratory Rate: 16 Pulse Ox: 98 Airway Assessment Mouth opens: >3 cm Mallampati Score: II Focused Labs Anesthesia Preop lab: CBC WBC 5.7 K/mm3 (4.4-11.0) 09/14/24 07:22 09/14/24 RBC 3.92 M/mm3 (4.2-5.4) L 09/14/24 07:22 09/14/24 Hgb 10.9 g/dL (12.0-15.0) L 09/14/24 07:22 5 Hct 33.1 % (37-47) L 09/14/24 07:22 09/14/24 Plt Count 216 K/mm3 (150-450) 09/14/24 07:22 09/14/24 CHEMISTRY Potassium 4.2 mmol/L (3.3-5.1) 09/14/24 07:22 09/14/24 Sodium 137 mmol/L (133-145) 09/14/24 07:22 09/14/24 BUN 13 mg/dL (4-19) 09/14/24 07:22 09/14/24 Creatinine 0.57 mg/dL (0.70-1.20) L 09/14/24 07:22 Glucose 94 mg/dL (70-99) 09/14/24 07:22 09/14/24 POC Glucose 103 mg/dL (74-106) 09/14/24 05:56 09/14/24 TSH 0.68 uIU/mL (0.358-3.74) 11/11/19 00:40 04/29/ 20 COAG PT 12.3 SECONDS (11.7-14.9) 09/18/20 01:50 Urine Test Negative Negative 08/06/20 11:43 08/06/20 Pre-Assessment Diagnosis/Proposed Procedure Planned Operative Procedure(s): Removal port Anesthesia History Anesthesia History - blood bank manager: Anesthesia History - blood bank manager Hx Hospitalization No 09/07/24 16:00 Any Problems With Anesthesia No 09/14/24 02:32 Cholinesterase deficiency No 09/14/24 02:32 You/Your Family Experience No 09/14/24 02:32 fever (hyperthermia) with Relationship Recent Exposure to Contagious No 09/14/24 02:32 Disease Does patient have nerve No 09/14/24 02:32 stimulator Patient instructed to have device shut off --Does patient have Pacemaker No 09/14/24 07:56 or ICD? When Was Last Pacemaker Check QUESTION #4 FULL TEXT: You/Your Family Experience fever (hyperthermia) with Anesthesia Last Oral Intake Last Oral intake: Last Oral Intake NPO since 00:00 09/14/24 07:56 Meds taken in AM with sips of No 09/14/24 07:56 water? Meds patient instructed to take am of surgery PONV PONV - blood bank manager: PONV - blood bank manager Female HX of Motion Sickness HX of N/V After Surgery Non-Smoker Duration of Surgery greater than 60 minutes Number of Risk Factors PONV Score Height & Weight Height & Weight: Anesthesia: Height & Weight Height 5 ft 1 in 09/14/24 07:56 Weight: 97 kg 09/14/24 07:56 Body Mass Index (BMI) 40.4 09/14/24 07:56 Respiratory Assessment Respiratory Assessment - blood bank manager: Respiratory Tract Infection Hx - blood bank manager Hx Respiratory Tract Infection No 09/14/24 02:32 STOP Sleep Apnea STOP Sleep Apnea - blood bank manager: STOP Sleep Apnea - blood bank manager Hx Hypertension No 09/13/24 19:16 Hx Sleep Apnea No 09/13/24 19:16 CPAP BIPAP Do you snore loudly (louder No 09/13/24 19:16 than talking or can be heard Do you often feel tired/ No 09/13/24 19:16 fatigued/ sleepy during daytime? Has anyone observed you stop No 09/13/24 19:16 breathing during sleep? STOP Results Negative 09/13/24 19:16 QUESTION #5 FULL TEXT : Do you snore loudly (louder than talking or can be heard through closed doors)? 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 Specify any problems Hx of Preganancy in last 3 N/A 09/13/24 19:16 Months Nurse Filling Out Transfusion LSHRINER 09/13/24 19:16 & Questions: Date: 09/13/24 09/13/24 19:16 Time: 20:27 09/13/24 19:16 Patient unable to answer at this time (ie. confused, unrespo /Reproduction History /Reproductive History - blood bank manager: /Reproductive Hx- blood bank manager Hx Now No 09/14/24 02:32 Gestational Age (in weeks): EDC: Hx Hx Para Hx Section SAB No 09/13/24 17:35 Active Medications Active Medications: Current Medications Generic Name Dose Route Start Last Admin Trade Name Freq PRN Reason Stop Dose Admin Acetaminophen 650 mg 09/13/24 19:32 09/13/24 22:35 Acetaminophen 325 Mg Tablet PO 650 mg Q4H PRN PRN Administration Pain 1-10 or Fever Acetaminophen/Butalbital/Caffeine 1 tablet 09/13/24 19:36 Acetaminophen/Butalbital/Caffe 1 Tablet PO Q4H PRN PRN headache Aripiprazole 10 mg 09/14/24 10:00 09/14/24 08:03 Aripiprazole 10 Mg Tablet PO Not Given DAILY NIGEL Protocol Buprenorphine HCl 8 mg 09/14/24 10:00 Buprenorphine Hcl 8 Mg Tab.Subl SL DAILY NIGEL Clarify Med Order 0 each 09/13/24 20:15 09/13/24 20:00 Clarify Order NOTE Not Given CLARIFY [facility] Diclofenac Sodium 75 mg 09/14/24 08:00 09/14/24 08:02 D[facility]enac 75 Mg [facility]t [facility] Diphenhydramine HCl 50 mg 09/13/24 19:32 09/14/24 05:52 Diphenhydramine 50 Mg/Ml Syringe IV 50 mg Q6H PRN PRN Administration RASH/TOPICAL IRRITATION Docusate Sodium 100 mg 09/14/24 10:00 09/14/24 08:03 Docusate Sodium 100 Mg Capsule PO Not Given DAILY [facility] Famotidine 20 mg 09/13/24 22:00 09/13/24 22:21 Famotidine 20 Mg Tablet PO 20 mg QHS [facility] Administration Gabapentin 400 mg 09/13/24 22:00 09/14/24 05:54 Gabapentin 400 Mg Capsule PO Not Given TID [facility] Sodium Chloride 1,000 mls @ 60 mls/hr 09/13/24 19:35 09/13/24 22:22 IV 09/15/24 04:54 60 mls/hr .[id number] [facility] Administration Protocol Piperacillin Sod/Tazobactam 50 mls @ 12.5 mls/hr 09/14/24 06:00 09/14/24 10:12 Sod 3.375 gm/ Sodium Chloride IV Infused Q8 [facility] Infusion Ketorolac Tromethamine 15 mg 09/13/24 19:32 09/14/24 08:02 Ketorolac 15 Mg/Ml Vial IV 09/15/24 19:33 15 mg Q8H PRN PRN Administration Pain Score 4-10 Loratadine 10 mg 09/13/24 19:36 Loratadine 10 Mg Tablet PO DAILY PRN allergy symptoms Meclizine HCl 25 mg 09/13/24 19:36 Meclizine Hcl 25 Mg Tablet PO BID PRN PRN motion sickness Metoclopramide HCl 5 mg 09/13/24 19:36 09/13/24 22:35 Metoclopramide 5 Mg Tablet PO 5 mg Q6H PRN PRN Administration nausea and vomiting Non-Formulary Medication 60 mg 09/14/24 10:00 Atogepant [Qulipta] PO DAILY [facility] Pantoprazole Sodium 40 mg 09/14/24 10:00 09/14/24 08:03 Pantoprazole Sodium 40 Mg Tablet PO Not Given DAILY NIGEL Rizatriptan Benzoate 10 mg 09/13/24 19:45 Rizatriptan Benzoate 10 Mg Tablet PO DAILY PRN PRN MIGRAINE SYMPTOMS Sodium Chloride 10 - 40 ml 09/13/24 19:32 0.9% Saline Lock 10 Ml Syringe IV UD PRN SALINE FLUSH Sodium Chloride 10 - 40 ml 09/13/24 19:32 0.9% Saline Lock 10 Ml Syringe IV UD PRN SALINE FLUSH Sumatriptan Succinate 6 mg 09/13/24 19:45 Sumatriptan 6 Mg/0.5 Ml Vial SC Q12H PRN PRN MIGRAINE SYMPTOMS Zolpidem Tartrate 5 mg 09/13/24 19:36 09/14/24 00:51 Zolpidem Tartrate 5 Mg Tablet PO 5 mg QHS PRN Administration sleep PFSH Medical History Implantable loop recorder present Wears glasses Anxiety MRSA infection Substance abuse History of steroid therapy Diabetes Injury of head and neck History of IBS Gastric reflux Open wound of right elbow Leg wound, right Difficult intravenous access Neuropathy Candidiasis Recurrent pulmonary emboli delivery delivered Arthritis Head injury Chest pain Prolonged QT interval Diabetes PCOS (polycystic ovarian syndrome) PTSD (post-traumatic stress disorder) Factor V Leiden Anxiety Depression Pulmonary embolism DVT (deep venous thrombosis) TIA (transient ischemic attack) Ovarian cyst Home Medications ?Medication ?Instructions ?Recorded ?Last Taken ?Type sumatriptan succinate 6 mg/0.5 mL 6 mg (0.5 mL) subcut Q12H MIGRAINE 01/02/24 Unknown Rx subcutaneous pen injector #1 mL alcohol swabs 1 pad topical DAILY #200 ea 01/21/24 Unknown Rx blood sugar diagnostic (OneTouch #100 ea 01/21/24 Unkn own Rx Verio test strips) lancets 30 gauge (OneTouch #200 ea 01/23/24 Unknown Rx UltraSoft 2 Lancet) blood-glucose sensor (FreeStyle #1 ea 06/08/24 Unknown Rx Sarai 2 Plus Sensor device) buprenorphine 8 mg-naloxone 2 mg 1 film sublingual CARLOS LY 06/08/24 09/07/24 History sublingual film cetirizine 10 mg tablet 10 mg PO DAILY PRN allergy 1 08/08/23 Unknown Rx symptoms #90 tabs zolpidem 10 mg tablet 10 mg PO QHS PRN sleep 06/08 Unknown History blood-glucose meter,continuous #1 ea 06/09/24 Unknown Rx (Dexcom G7 [employer] Rent[employer] Manager) lidocaine 5 % topical patch 1 patch topical QDAY PRN p ain #30 06/16/24 Unknown Rx ea linaclotide 290 mcg capsule 290 mcg PO QDAY #90 caps 1 08/17/23 Unknown Rx (Linzess) meclizine 25 mg tablet 25 mg PO BID PRN motion sick ness 06/16/24 Unknown Rx #30 tabs aripiprazole 10 mg tablet 10 mg PO QDAY 07/06/24 Unkno wn History blood-glucose sensor (Dexcom G7 #1 ea 07/09/24 Unknown Rx Sensor device) blood-glucose transmitter (Dexcom #1 ea 07/09/24 Unkno wn Rx G6 Transmitter device) atogepant 60 mg tablet (Qulipta) 60 mg PO DAILY Unknown History lamotrigine 200 mg tablet 200 mg PO BID 07/14/24 Unkno wn History docusate sodium 100 mg capsule 100 mg PO DAILY #90 cap s 07/29/24 Unknown Rx (Colace) pantoprazole 40 mg tablet,delayed 40 mg PO QDAY #90 ta bs 07/29/24 Unknown Rx release sumatriptan succinate 100 mg tablet See Rx Instruction s PO .COMPLEX 07/29/24 Unknown Rx #12 tabs famotidine 20 mg tablet 20 mg PO QHS 09/07/24 Unknow n History fremanezumab-vfrm 225 mg/1.5 mL 225 mg subcut QMONTH 0 09/07/24 08/24/24 History subcutaneous auto-injector (Ajovy) dulaglutide 1.5 mg/0.5 mL 1.5 mg subcut QWEEK 09/10/24 08/31/24 History subcutaneous pen injector (Trulicity) metoclopramide HCl 5 mg tablet 5 mg PO Q6H PRN nausea and 09/10/24 Unknown Rx (Reglan) vomiting 3 days #10 tabs acetaminophen 500 mg tablet 1,000 mg (2 x 500 mg) PO Q 8 PRN 09/11/24 Unknown Rx (Tylenol Extra Strength) fever or pain #90 tabs tramadol 50 mg tablet 50 mg PO Q8H PRN pain 3 days #5 09/11/24 Unknown Rx tabs wqadwjpsno-zafcqqwkcjqpl-uwekatfa 1 tab PO Q4H PRN PRN headache 09/13/24 Unknown History 50 mg-325 mg-40 mg tablet diclofenac sodium 75 mg 75 mg PO BID 09/13/24 Unknow n History tablet,delayed release diphenhydramine HCl 12.5 mg/5 mL 25 mg PO 4X/DAY PRN P RN allergies 09/13/24 Unknown History oral liquid (M-Dryl) gabapentin 400 mg capsule 400 mg PO 3XD 09/13/24 Unkno wn History Allergy/AdvReac Type Severity Reaction Status Date / Time bee venom protein (honey Allergy Severe Anaphylaxis Verified 09/14/24 10:03 bee) (bee sting) ziprasidone (From Geodon) Allergy Severe facial Verified 09/14/24 10:03 swelling adhesive tape Allergy Mild Rash Verified 09/14/24 10:03 latex Allergy Mild Rash Verified 09/14/24 10:03 Iodinated Contrast Media Allergy Hives Verified 09/14/24 10:03 nitrofurantoin (From Allergy Other Verified 09/14/24 10:03 Macrobid) ondansetron (From Zofran) Allergy Hives Verified 09/14/24 10:03 propranolol Allergy Angioedema Verified 09/14/24 10:03 Family History Other Autoimmune disorder Bleeding disorder Breast cancer CVA (cerebral vascular accident) Colon cancer Diabetes Heart disease Hypertension Myocardial infarction Ovarian cancer Thyroid disorder Surgical History History of vascular access device Port-A-Cath in place H/O hernia repair H/O wisdom tooth extraction H/O oophorectomy Hx of cholecystectomy H/O tubal ligation Social History adopted: No household members: children and none number of children: 2 current occupational status: unemployed pets and animals: No sexually active: No Smoking Status: Never smoker alcohol intake: never substance use type: does not use caffeine: No frequency: 3-4 times per week do you feel safe at home: Yes Review of Systems (Anesthesia) ROS Narrative System reviewed and no additional complaints, except as documented.
[2024-09-14] MEDS: Bupivacaine Mpf 0.5% 30 ML VIAL (10:51)
[2024-09-14] MEDS: Lidocaine 1% (20 ml mdv) 20 ML Vial (10:51)
--- NOTE | 2024-09-14 11:14 | PCM.POST.ANE ---
Anesthesia: Postop Eval I Current Vital Signs Temperature: 97.2 F Pulse Rate: 78 Blood Pressure: 114/80 Respiratory Rate: 16 Pulse Ox: 96 Oxygen Delivery Method: Room Air Assessment Airway patent: Yes Spontaneous unlabored respirations: Yes Mental status: Awake and Calm nausea: No Vomiting: No Anesthesia Complication: No Fluid Hydration Crystalloid volume administer (ml): 200 Total IV fluid infused: 200 Progress Note Anesthesia document: Postop Eval 1 completed: Yes
--- NOTE | 2024-09-14 11:25 | OP.PCM_ITS ---
Operative Report (Standard) Operative Information Date of Procedure: 09/14/24 Pre-Operative Diagnosis: Infected vascular port Post-Operative Diagnosis: Same Surgery/Procedure Performed: Removal of right chest port curator of education: No Type of Anesthesia: Local MAC RN Documented Start/Stop Times: Operation Date: 09/14/24 10:30 Case Time Into Pre-Op 09/14/24 09:54 Out of Pre-Op 09/14/24 10:35 Anesthesia Start 09/14/24 10:37 Into Room 09/14/24 10:37 Procedure Start 09/14/24 10:51 Procedure End 09/14/24 10:58 Anesthesia End 09/14/24 11:08 Out of Room 09/14/24 11:08 Into Recovery 09/14/24 11:10 Procedure Start Time: 10:51 Procedure Stop Time: 10:58 Select all DRAINS/GRAFTS/IMPLANTS that apply: None Estimated Blood Loss: 2 Specimen collected: Yes Description of specimen(s) removed: Port-A-Cath sent for culture Description of surgery: The patient was brought back to the operating room and MAC anesthesia was induced. The right chest was prepped and draped in usual sterile fashion. The glue was removed and then the previous incision was reincised. The stitches holding the port and were removed and then the port was removed in its entirety. The cavity was irrigated and suctioned dry and then packed with half-inch iodoform gauze. Dressing was applied. Patient was taken to PACU in stable condition. Surgical Findings: Inflammation around the port Complications Complications: No
--- NOTE | 2024-09-14 11:32 | POSTOPAN2_ITS ---
Anesthesia Postop Eval I Sum Postop Eval Completion status Anesthesia document: Postop Eval 1 completed: Yes Anesthesia Postop Eval I Summary Anesthesia Postop Eval I Summary: Anesthesia Postop Eval I: Assessment Summary Airway patent Yes 09/14/24 11:15 CAMP PROGRAM DIRECTOR.MDOT Spontaneous unlabored Yes 09/14/24 11:15 CAMP PROGRAM DIRECTOR.MDOT respirations Mental status Awake,Calm 09/14/24 11:15 CAMP PROGRAM DIRECTOR.MDOT nausea No 09/14/24 11:15 CAMP PROGRAM DIRECTOR.MDOT Vomiting No 09/14/24 11:15 CAMP PROGRAM DIRECTOR.MDOT Anesthesia Postop Eval I: Fluid Summary Crystalloid volume administer 200 09/14/24 11:15 CAMP PROGRAM DIRECTOR.MDOT (ml) Colloids volume administered ( ml) Blood Product volume administered (ml) Total IV fluid infused 200 09/14/24 11:15 CAMP PROGRAM DIRECTOR.MDOT Anesthesia Postop Eval I: Summary Notes Anesthesia Complication No 09/14/24 11:15 CAMP PROGRAM DIRECTOR.MDOT Anesthesia Complication Comment: Post-operative progress note Anesthesia: Postop Eval II Evaluation Mental status: Awake Pain Level: 0 nausea: No Vomiting: No
--- NOTE | 2024-09-14 11:32 | PCM.POSTANE2 ---
Anesthesia Postop Eval I Sum Postop Eval Completion status Anesthesia document: Postop Eval 1 completed: Yes Anesthesia Postop Eval I Summary Anesthesia Postop Eval I Summary: Anesthesia Postop Eval I: Assessment Summary Airway patent Yes 09/14/24 11:15 SHUTTLE DRIVER.MDOT Spontaneous unlabored Yes 09/14/24 11:15 SHUTTLE DRIVER.MDOT respirations Mental status Awake,Calm 09/14/24 11:15 SHUTTLE DRIVER.MDOT nausea No 09/14/24 11:15 SHUTTLE DRIVER.MDOT Vomiting No 09/14/24 11:15 SHUTTLE DRIVER.MDOT Anesthesia Postop Eval I: Fluid Summary Crystalloid volume administer 200 09/14/24 11:15 SHUTTLE DRIVER.MDOT (ml) Colloids volume administered ( ml) Blood Product volume administered (ml) Total IV fluid infused 200 09/14/24 11:15 SHUTTLE DRIVER.MDOT Anesthesia Postop Eval I: Summary Notes Anesthesia Complication No 09/14/24 11:15 SHUTTLE DRIVER.MDOT Anesthesia Complication Comment: Post-operative progress note Anesthesia: Postop Eval II Evaluation Mental status: Awake Pain Level: 0 nausea: No Vomiting: No
--- NOTE | 2024-09-14 12:13 | CASEMGMT ---
SIERRA WOOD Assessment: Face to Face with pt for initial transition planning/care coordination assessment. SIERRA WOOD introduced self and role at [facility], pt voices understanding and consents to assessment. Pt is A&O x4 and answers all questions appropriately at this time. Pt tearful during assessment but did not want to discuss why. Care providers, pharmacy, and demographics verified/updated. Admitting Dx: port infection Strata Score: 3 PCP:Jeanie Specialists:Pepe, MOLD MAINTENANCE TECHNICIAN; Dena, neuro; Sarah, pain mgmt Preferred Pharmacy: [facility] Insurance: [employer] Prescription Benefit: yes LNOK: Violeta Davenport, cousin Living Arrangements: Pt lives alone in a single story home with no steps to enter. Pt reports she is I in ADL/IADLs and denies concerns at home. Transportation: Pt can drive but does not have a car. Pt depends on her insurance for transportation or her cousin. DME:BGM with sufficient strips and supplies HHC/SNF: Denies hx of Pt states no concerns with going home at time of dc. Pt states she had the port due to migraine infusions. Pt states no further concerns/needs. CM to follow. Advised pt to ask CM if any further questions/concerns/needs arise, voices understanding. Pt Goal: Home Plan: Home, follow for any wound care needed after port removal [facility] ESQUIVEL CM
[2024-09-14] MEDS: 0.9% Normal Saline (1000mL) 1,000 ML 60 ML IV (12:19)
[2024-09-14] MEDS: Acetaminophen 325 MG Tablet 650 MG PO ×2 (14:03→20:14)
[2024-09-14] MEDS: Gabapentin 400 MG Capsule PO ×2 (14:03→22:06)
[2024-09-14] MEDS: oxyCODONE 5 MG Tablet PO ×2 (14:03→20:14)
[2024-09-14] MEDS: Diclofenac 75 MG Tablet PO (17:26)
[2024-09-14] MEDS: Famotidine 20 MG Tablet PO (22:06)
[2024-09-14] MEDS: Morphine 2 MG/ML Syringe IV (22:07)
[2024-09-15 00:39] VITALS: BP 153/102; PULSE 75; RESP 18; TEMP 36.8; O2SAT 97
[2024-09-15] MEDS: Zolpidem Tartrate 5 MG Tablet 10 MG PO (00:43)
[2024-09-15] MEDS: DiphenhydrAMINE 50 MG/ML Syringe IV ×3 (00:44→12:33)
[2024-09-15 06:46] VITALS: BP 155/101; PULSE 94; RESP 18; TEMP 37.2; O2SAT 99
[2024-09-15] MEDS: Metoclopramide 5 MG TABLET PO (06:53)
[2024-09-15] MEDS: Ketorolac 15 MG/ML Vial IV (06:53)
[2024-09-15] MEDS: Piperacil/Tazobactam 3.375 GM in 0.9% Normal Saline (50mL MB+) 50 ML IV (06:54)
[2024-09-15] MEDS: Gabapentin 400 MG Capsule PO ×2 (06:54→14:52)
--- NOTE | 2024-09-15 08:03 | PCM.PN.SRG ---
Subjective Subjective Patient evaluated resting comfortably in bed. She notes some discomfort at the previous port site. Patient notes overall her night went well. She tolerated her packing change with being pre-medicated prior to dressing change. Objective Data Objective Data Vital Signs: Vital Signs Temp Pulse Resp BP Pulse Ox O2 Del Method 99 F 94 18 155/101 H 99 Room Air 09/15/24 06:46 09/15/24 06:46 09/15/24 06:46 09/15/24 06:46 09/15/24 06:46 09/15/24 06:46 Oxygen Delivery Method Room Air Weight: 213 lb 13.574 oz Body Mass Index (BMI) 40.4 Intake & Output: Intake and Output for Last 24 Hours 09/13/24 09/14/24 09/15/24 23:59 23:59 23:59 Intake Total 50 / 450 1337 / 1337 650 / 650 Balance 50 / 450 1337 / 1337 650 / 650 Lab / Micro Data 09/14/24 07:22 09/14/24 07:22 Labs: Laboratory Results - last 24 hr 09/14/24 07:22: Sodium 137, Potassium 4.2, Chloride Direct 106, Carbon Dioxide 20.9 L, Anion Gap 10, BUN 13, Creatinine 0.57 L, Estim Creat Clear Calc 150.94, Est GFR (MDRD) Non-Af 124, BUN/Creatinine Ratio 23.6 H, Glucose 94, Calcium 9.2 09/14/24 : Acid Fast Stain Cancelled, Miscellaneous Cytology Cancelled Micro: Microbiology 09/14/24 Unknown Wound - Chest Gram Stain - Final Physical Exam Chest Chest Narrative: Right chest- continued erythema noted. Open wound with packing noted. Minimal amount of drainage noted on the gauze dressing. Assessment & Plan Assessment/Plan (1) Local infection due to Port-A-Cath: QUALIFIERS: Encounter type: subsequent encounter Qualified Code(s): T80.212D - Local infection due to central venous catheter, subsequent encounter (2) Cellulitis: QUALIFIERS: Site of cellulitis of trunk: chest wall Site of cellulitis: trunk Qualified Code(s): L03.313 - Cellulitis of chest wall PLAN: Plan I am following this patient in conjunction with Dr. Sheffield and Dr. Shafer. Dr. Shafer will independently evaluate this patient. Plan to continue BID dressing changes at this time Plan to transition to oral antibiotics as an outpatient Plan to change packing later today around 10:30 We will also come up with a plan on when to place another port Hopeful discharge later today Charges/Coding Visit Charges Inpatient E&M: 62665 Subs Hosp L1 (post-op; no charge)
[2024-09-15 09:57] VITALS: BP 145/99; PULSE 102; RESP 16; TEMP 36.7; O2SAT 96
[2024-09-15] MEDS: Diclofenac 75 MG Tablet PO (10:02)
[2024-09-15] MEDS: Docusate Sodium 100 MG Capsule PO (10:02)
[2024-09-15] MEDS: ARIPiprazole 10 MG Tablet PO (10:02)
[2024-09-15] MEDS: Pantoprazole Sodium 40 MG Tablet PO (10:03)
[2024-09-15] MEDS: Acetaminophen 325 MG Tablet 650 MG PO (10:07)
[2024-09-15] MEDS: oxyCODONE 5 MG Tablet PO (10:07)
--- NOTE | 2024-09-15 10:23 | DCINST_ITS ---
Discharge Instructions Diet Discharge Diet: No restrictions DC O2, CPAP, BIPAP needs Home O2 Discharge instructions: No Dressing / Incision Discharge Activity: No Restrictions Dressing / Incision Call your doctor if your incision/area has: Increased Pain/ Swelling and Increased Redness Call your doctor if you observe: Fever of 101 or Higher Cleanse incision/area with: Soap & Water Additional Dressing/Incision Instructions:: Change packing twice a day Recommend removing packing from the open wound, showering with soap and water, pat the wound dry and repack the wound for the morning packing change. At bedtime packing change, recommend removing the packing and replacing the packing with a clean packing strip and cover with gauze and tape. Follow Up Care Please Follow Up With: Artur Shafer MD When: Your appointment is scheduled for 1:00 pm , . Will follow-up with Dr. Shafer in 2 weeks. Please call [phone], option #2 if you need to reschedule or have questions. Test Results: Test results from this visit will be discussed in further detail at your follow- up appointment, if applicable. Discharge Plan Admission Admit Date/Time: 09/13/24 19:32 Primary Reason for Your Visit: Infected right port-a-cath Attending Provider: Pepe Sheffield Primary Care Provider: Erika Ware Instructions Additional Instructions / Restrictions: Change packing daily Recommend removing packing from the open wound, showering with soap and water, pat the wound dry and place a dry gauze over top of the open wound prior to coming to the office to have the wound repacked. Take tramadol 20-30 minutes prior to coming to our office for packing changes. You will need a construction driver to bring you to the office after taking the medication. You will be sent home on antibiotics called Augmentin. You will need to take this twice daily until prescription is completed. Apply Triamcinolone acetonide to the rash-like area twice daily and Benadryl at bedtime Follow-up for packing changes daily at 1:00 pm on and Follow-up with Dr. Shafer in 2 weeks to further discuss treatment plan. Discharge Orders/Prescriptions Prescriptions: New amoxicillin-pot clavulanate 875-125 mg tablet 1 tab PO BID 14 Days Qty: 28 0RF tramadol 50 mg tablet 50 mg PO BID 7 Days Qty: 14 0RF Rx Instructions: Take 1 tablet 20-30 minutes prior to packing changes triamcinolone acetonide 0.1 % cream 1 applic topical BID Qty: 15 0RF Continued buprenorphine-naloxone 8-2 mg film 1 film sublingual DAILY Rx Instructions: weaning LAST DOSE 07/16/24 zolpidem 10 mg tablet 10 mg PO QHS PRN (Reason: sleep) cetirizine 10 mg tablet 10 mg PO DAILY PRN (Reason: allergy symptoms) Qty: 90 1RF (DME) Free[employer] Sarai 2 Plus Sensor Device See Rx Instructions .Route Qty: 1 5RF Rx Instructions: As directed aripiprazole 10 mg tablet 10 mg PO QDAY pantoprazole 40 mg tablet,delayed release (DR/EC) 40 mg PO QDAY Qty: 90 0RF docusate sodium [Colace] 100 mg capsule 100 mg PO DAILY Qty: 90 0RF sumatriptan succinate 100 mg tablet See Rx Instructions PO .COMPLEX Qty: 12 2RF Rx Instructions: take 1 tab at onset of headache; if no relief, may repeat 1 tab after at least 2 hrs; max = 2 tabs/24 hrs PO lamotrigine 200 mg tablet 200 mg PO BID Qulipta 60 mg tablet 60 mg PO DAILY Ajovy Autoinjector 225 mg/1.5 mL auto-injector 225 mg SUBCUT QMONTH Patient Comments: Inject 1.5 mL (225 mg total) under the skin every 28 days. famotidine 20 mg tablet 20 mg PO QHS Trulicity 1.5 mg/0.5 mL pen injector 1.5 mg subcut QWEEK metoclopramide HCl [Reglan] 5 mg tablet 5 mg PO Q6H PRN (Reason: nausea and vomiting) 3 Days Qty: 10 0RF diphenhydramine HCl [M-Dryl] 12.5 mg/5 mL liquid 25 mg PO 4X/DAY PRN PRN (Reason: allergies) gabapentin 400 mg capsule 400 mg PO 3XD diclofenac sodium 75 mg tablet,delayed release (DR/EC) 75 mg PO BID mmcapcvmvl-wpyaxsyglokng-ahiy 50-325-40 mg tablet 1 tab PO Q4H PRN PRN (Reason: headache) sumatriptan succinate 6 mg/0.5 mL pen injector 6 mg SUBCUT Q12H Qty: 1 2RF alcohol swabs Pads, Medicated 1 pad topical DAILY Qty: 200 0RF (DME) OneTouch Verio test strips Strip See Rx Instructions .Route Qty: 100 0RF Rx Instructions: Use one strip once per day to check blood glucose level (DME) lancets [OneTouch UltraSoft 2 Lancet] 30 gauge misc See Rx Instructions .Route Qty: 200 0RF Rx Instructions: Use once daily to check blood glucose level (DME) Dexcom G7 Supervisor [employer] Misc See Rx Instructions .Route Qty: 1 5RF Rx Instructions: As directed Linzess 290 mcg capsule 290 mcg PO QDAY Qty: 90 0RF meclizine 25 mg tablet 25 mg PO BID PRN (Reason: motion sickness) Qty: 30 1RF lidocaine 5 % adhesive patch,medicated 1 patch topical QDAY PRN (Reason: pain) Qty: 30 3RF Rx Instructions: leave on most painful area for up to 12 hrs (DME) Dexcom G7 Sensor Device See Rx Instructions .Route Qty: 1 5RF Rx Instructions: As directed (DME) Dexcom G6 Transmitter Device See Rx Instructions .Route Qty: 1 5RF Rx Instructions: As directed acetaminophen [Tylenol Extra Strength] 500 mg tablet 1,000 mg PO Q8 PRN (Reason: fever or pain) Qty: 90 0RF Discontinued tramadol 50 mg tablet 50 mg PO Q8H PRN (Reason: pain) 3 Days Qty: 5 0RF Referrals / Follow Up: Erika Ware MD [Primary Care Provider] - Artur Shafer MD [Med Staff - Active Staff] - 09/29/24 Disposition Disposition (needs filled in before D/C Order can be placed): Home, Self Care
[2024-09-15] MEDS: 0.9% Saline Lock 10 ML Syringe IV ×2 (10:46→12:33)
[2024-09-15] MEDS: Morphine 2 MG/ML Syringe IV (10:46)
--- NOTE | 2024-09-15 11:55 | DS.PCM_ITS ---
Providers Date of Admission: 09/13/24 Primary Care Physician: Dr. Erika Ware MD Reason For Visit: PORT INFECTION Diagnosis Discharge Diagnosis (1) Local infection due to Port-A-Cath: Status: Acute Code(s): T80.212A - Local infection due to central venous catheter, initial encounter Qualifiers: Encounter type: subsequent encounter Qualified Code(s): T80.212D - Local infection due to central venous catheter, subsequent encounter (2) Cellulitis: Status: Acute Code(s): L03.90 - Cellulitis, unspecified Qualifiers: Site of cellulitis: trunk Site of cellulitis of trunk: chest wall Q ualified Code(s): L03.313 - Cellulitis of chest wall Plan I am following this patient in conjunction with Dr. Sheffield and Dr. Shafer. Dr. Shafer will independently evaluate this patient. Plan to continue BID dressing changes at this time Plan to transition to oral antibiotics as an outpatient Plan to change packing later today around 10:30 We will also come up with a plan on when to place another port Hopeful discharge later today Medications at Discharge Home Medications sumatriptan succinate 6 mg/0.5 mL subcutaneous pen injector 6 mg (0.5 mL) subcut Q12H MIGRAINE #1 mL 01/02/24 alcohol swabs 1 pad topical DAILY #200 ea 01/21/24 blood sugar diagnostic (OneTouch Verio test strips) #100 ea 01/21/24 lancets 30 gauge (OneTouch UltraSoft 2 Lancet) #200 ea 01/23/24 blood-glucose sensor (FreeStyle Sarai 2 Plus Sensor device) #1 ea 06/08/24 buprenorphine 8 mg-naloxone 2 mg sublingual film 1 film sublingual DAILY 06/08/24 cetirizine 10 mg tablet 10 mg PO DAILY PRN allergy symptoms #90 tabs 06/08/24 zolpidem 10 mg tablet 10 mg PO QHS PRN sleep 06/08/24 blood-glucose meter,continuous ([employer] G7 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) #1 ea 06/09/24 lidocaine 5 % topical patch 1 patch topical QDAY PRN pain #30 ea 06/16/24 linaclotide 290 mcg capsule (Linzess) 290 mcg PO QDAY #90 caps 06/16/24 meclizine 25 mg tablet 25 mg PO BID PRN motion sickness #30 tabs 06/16/24 aripiprazole 10 mg tablet 10 mg PO QDAY 07/06/24 blood-glucose sensor (Dexcom G7 Sensor device) #1 ea 07/09/24 blood-glucose transmitter (Dexcom G6 Transmitter device) #1 ea 07/09/24 atogepant 60 mg tablet (Qulipta) 60 mg PO DAILY 07/14/24 lamotrigine 200 mg tablet 200 mg PO BID 07/14/24 docusate sodium 100 mg capsule (Colace) 100 mg PO DAILY #90 caps 07/29/24 pantoprazole 40 mg tablet,delayed release 40 mg PO QDAY #90 tabs 07/29/24 sumatriptan succinate 100 mg tablet See Rx Instructions PO .COMPLEX #12 tabs 07/29/24 famotidine 20 mg tablet 20 mg PO QHS 09/07/24 fremanezumab-vfrm 225 mg/1.5 mL subcutaneous auto-injector (Ajovy) 225 mg subcut QMONTH 09/07/24 dulaglutide 1.5 mg/0.5 mL subcutaneous pen injector (Trulicity) 1.5 mg subcut QWEEK 09/10/24 metoclopramide HCl 5 mg tablet (Reglan) 5 mg PO Q6H PRN nausea and vomiting 3 days #10 tabs 09/10/24 acetaminophen 500 mg tablet (Tylenol Extra Strength) 1,000 mg (2 x 500 mg) PO Q8 PRN fever or pain #90 tabs 09/11/24 rdyzdwnwhv-agneohhuicfdv-yteihfsm 50 mg-325 mg-40 mg tablet 1 tab PO Q4H PRN PRN headache 09/13/24 diclofenac sodium 75 mg tablet,delayed release 75 mg PO BID 09/13/24 diphenhydramine HCl 12.5 mg/5 mL oral liquid (M-Dryl) 25 mg PO 4X/DAY PRN PRN allergies 09/13/24 gabapentin 400 mg capsule 400 mg PO 3XD 09/13/24 amoxicillin 875 mg-potassium clavulanate 125 mg tablet 1 tab PO BID 14 days #28 tabs 09/15/24 tramadol 50 mg tablet 50 mg PO BID 7 days #14 tabs 09/15/24 triamcinolone acetonide 0.1 % topical cream 1 applic topical BID #15 grams 09/15/24 Hospital Course Operations - (Removal of infected right chest port) Summary of Care Provided Minutes Spent on Discharge: 30 Hospital Course: Patient is a 34 y/o F who presented with an infected right chest port. Dr. Shafer had recently replaced the port on , 09/10. Patient was noted to have fevers and drainage of pus from the neck incision and chest incision. Dr. Sheffield performed a removal of the right chest port on 09/14/24. Patient tolerated the procedure well. Patient had an uneventful hospitalization. Upon discharge, patient will continue to pack the open wound daily. She may remove the packing to shower and we have arranged for the patient to present to the office for daily packing changes. She will be sent home on Augmentin x 10 days. Microbiology is pending. Patient appears to have a rash above the chest wound. She will apply a topical ointment twice daily to assist with resolving the rash. Weight / BMI Weight Weight: 213 lb 13.574 oz Body Mass Index (BMI) 40.4 ABG / Lab / Microbiology Data 09/14/24 07:22 09/14/24 07:22 Laboratory: Laboratory Results - last 24 hr 09/14/24 : Acid Fast Stain Cancelled, Miscellaneous Cytology Cancelled Microbiology: Microbiology 09/14/24 Unknown Wound - Chest Gram Stain - Final D/C Instructions Discharge Diet: No restrictions Call your doctor if your incision/area has: Increased Pain/ Swelling and Increased Redness Call your doctor if you observe: Fever of 101 or Higher Cleanse incision/area with: Soap & Water Additional Dressing/Incision Instructions: Change packing twice a day Recommend removing packing from the open wound, showering with soap and water, pat the wound dry and repack the wound for the morning packing change. At bedtime packing change, recommend removing the packing and replacing the packing with a clean packing strip and cover with gauze and tape. DC O2, CPAP, BIPAP Needs Home O2 Discharge instructions: No Please Follow Up With: Artur Shafer MD When: Your appointment is scheduled for 1:00 pm W, , F. Will follow-up with Dr. Shafer in 2 weeks. Please call [phone], option #2 if you need to reschedule or have questions. Meaningful Use Info Meaningful Use Meaningful Use Diagnoses (Choose all that apply): None applicable Ischemic Stroke Statin Dosing Therapy Reference: STATIN DOSE THERAPY REFERENCE: * Patients > 75 years receive moderate or high dose statin therapy. * Patients 75 years or YOUNGER should receive HIGH intensity statin dose unless contraindicated. You will be required to document reason for non-treatment if statin daily dose does not meet guidelines. HIGH DOSE STATIN THERAPY DAILY Atorvastatin > than or = to 40 mg Rosuvastatin > than or = to 20 mg Amlodipine + Atorvastatin > than or = to 2.5/40 mg Ezetimibe + Simvastatin 10/80 mg Simvastatin 80mg Discharge Plan Admission Admit Date/Time: 09/13/24 19:32 Primary Reason for Your Visit: Infected right port-a-cath Attending Provider: Pepe Sheffield Primary Care Provider: Erika Ware Instructions Additional Instructions / Restrictions: Change packing daily Recommend removing packing from the open wound, showering with soap and water, pat the wound dry and place a dry gauze over top of the open wound prior to coming to the office to have the wound repacked. Take tramadol 20-30 minutes prior to coming to our office for packing changes. You will need a wheelchair van driver to bring you to the office after taking the medication. You will be sent home on antibiotics called Augmentin. You will need to take this twice daily until prescription is completed. Apply Triamcinolone acetonide to the rash-like area twice daily and Benadryl at bedtime Follow-up for packing changes daily at 1:00 pm on , and Follow-up with Dr. Shafer in 2 weeks to further discuss treatment plan. Discharge Orders/Prescriptions Prescriptions: New amoxicillin-pot clavulanate 875-125 mg tablet 1 tab PO BID 14 Days Qty: 28 0RF tramadol 50 mg tablet 50 mg PO BID 7 Days Qty: 14 0RF Rx Instructions: Take 1 tablet 20-30 minutes prior to packing changes triamcinolone acetonide 0.1 % cream 1 applic topical BID Qty: 15 0RF Continued buprenorphine-naloxone 8-2 mg film 1 film sublingual DAILY Rx Instructions: weaning LAST DOSE 07/16/24 zolpidem 10 mg tablet 10 mg PO QHS PRN (Reason: sleep) cetirizine 10 mg tablet 10 mg PO DAILY PRN (Reason: allergy symptoms) Qty: 90 1RF (DME) [employer]one 2 Plus Sensor Device See Rx Instructions .Route Qty: 1 5RF Rx Instructions: As directed aripiprazole 10 mg tablet 10 mg PO QDAY pantoprazole 40 mg tablet,delayed release (DR/EC) 40 mg PO QDAY Qty: 90 0RF docusate sodium [Colace] 100 mg capsule 100 mg PO DAILY Qty: 90 0RF sumatriptan succinate 100 mg tablet See Rx Instructions PO .COMPLEX Qty: 12 2RF Rx Instructions: take 1 tab at onset of headache; if no relief, may repeat 1 tab after at least 2 hrs; max = 2 tabs/24 hrs PO lamotrigine 200 mg tablet 200 mg PO BID Qulipta 60 mg tablet 60 mg PO DAILY Ajovy Autoinjector 225 mg/1.5 mL auto-injector 225 mg SUBCUT QMONTH Patient Comments: Inject 1.5 mL (225 mg total) under the skin every 28 days. famotidine 20 mg tablet 20 mg PO QHS Trulicity 1.5 mg/0.5 mL pen injector 1.5 mg subcut QWEEK metoclopramide HCl [Reglan] 5 mg tablet 5 mg PO Q6H PRN (Reason: nausea and vomiting) 3 Days Qty: 10 0RF diphenhydramine HCl [M-Dryl] 12.5 mg/5 mL liquid 25 mg PO 4X/DAY PRN PRN (Reason: allergies) gabapentin 400 mg capsule 400 mg PO 3XD diclofenac sodium 75 mg tablet,delayed release (DR/EC) 75 mg PO BID jiwwqzakfm-xnytxfohdadsr-wsvd 50-325-40 mg tablet 1 tab PO Q4H PRN PRN (Reason: headache) sumatriptan succinate 6 mg/0.5 mL pen injector 6 mg SUBCUT Q12H Qty: 1 2RF alcohol swabs Pads, Medicated 1 pad topical DAILY Qty: 200 0RF (DME) OneTouch Verio test strips Strip See Rx Instructions .Route Qty: 100 0RF Rx Instructions: Use one strip once per day to check blood glucose level (DME) lancets [OneTouch UltraSoft 2 Lancet] 30 gauge misc See Rx Instructions .Route Qty: 200 0RF Rx Instructions: Use once daily to check blood glucose level (DME) 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 G7 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 Misc See Rx Instructions .Route Qty: 1 5RF Rx Instructions: As directed Osvaldos 290 mcg capsule 290 mcg PO QDAY Qty: 90 0RF meclizine 25 mg tablet 25 mg PO BID PRN (Reason: motion sickness) Qty: 30 1RF lidocaine 5 % adhesive patch,medicated 1 patch topical QDAY PRN (Reason: pain) Qty: 30 3RF Rx Instructions: leave on most painful area for up to 12 hrs (DME) Dexcom G7 Sensor Device See Rx Instructions .Route Qty: 1 5RF Rx Instructions: As directed (DME) Dexcom G6 Transmitter Device See Rx Instructions .Route Qty: 1 5RF Rx Instructions: As directed acetaminophen [Tylenol Extra Strength] 500 mg tablet 1,000 mg PO Q8 PRN (Reason: fever or pain) Qty: 90 0RF Discontinued tramadol 50 mg tablet 50 mg PO Q8H PRN (Reason: pain) 3 Days Qty: 5 0RF Referrals / Follow Up: Erika Ware MD [Primary Care Provider] - Artur Shafer MD [Med Staff - Active Staff] - 09/29/24 Disposition Disposition (needs filled in before D/C Order can be placed): Home, Self Care Charges/Coding Visit Charges Inpatient E&M: 25736 Disch Hosp (No charge)
--- NOTE | 2024-09-15 12:54 | CASEMGMT ---
SIERRA WOOD into see pt, pt denies any DC needs. Pt understands she will need to go in for dressing changes. Pt asked if able to do them herself at home. Instructed they have on DC papers for her to go in W// for packing and dressing change, instructed to follow with DC plan instructions and discuss doing dressing change at home if possible.
[2024-09-15 14:50] VITALS: BP 135/81; PULSE 82; RESP 16; TEMP 36.6; O2SAT 96
--- NOTE | 2024-09-15 14:51 | CHAPLAIN ---
Type of Pastoral Visit _x__ Initial Visit ___ Follow-up Visit ___ On-call Visit ___ General Patient Visit ___ Spiritual Assessment ___ Family Conference ___ Bereavement ___ Rapid Response ___ Code Blue ___ Other (describe below) Pastoral Care Referral From _x__ Patient ___ Family ___ Nurse ___ Physician ___ Quality Assurance Assistant ___ Soil Scientist ___ Other (describe below) Sacrament/Intervention _x__ Active listening ___ Anointing ___ Anabaptism ___ Bereavement ___ Communion _x__ Maggie exploration ___ _x__ Life review _x__ Prayer ___ Reconciliation ___ Sacrament of Sick _x__ Supportive presence ___ Wedding ___ Other (describe below) Pastoral Comments patient gives information on her health and how it is disappointing to have to have had some issues; pt has recently been but from her and has moved back to this area; pt is looking for a baptism to connect to and where she can zoroastrianism regularly' pt; pt herself wants to give life over to God; pt welcomes prayer and presence for encouragement today
--- NOTE | 2024-09-15 15:56 | PHA.DC_ITS ---
Pharmacy [place] Med Reconciliation Pharmacy Service has performed discharge medication reconciliation for this patient. Medication education papers prepared, patient discharged before I was able to recreational counselor. Medications reviewed. The patient's discharge medication list was reviewed for discrepancies and discrepancies were resolved. Medications at Discharge Home Medications sumatriptan succinate 6 mg/0.5 mL subcutaneous pen injector 6 mg (0.5 mL) subcut Q12H MIGRAINE #1 mL 01/02/24 alcohol swabs 1 pad topical DAILY #200 ea 01/21/24 blood sugar diagnostic (OneTouch Verio test strips) #100 ea 01/21/24 lancets 30 gauge (OneTouch UltraSoft 2 Lancet) #200 ea 01/23/24 blood-glucose sensor (OR Productivityyle Sarai 2 Plus Sensor device) #1 ea 06/08/24 buprenorphine 8 mg-naloxone 2 mg sublingual film 1 film sublingual DAILY 06/08/24 cetirizine 10 mg tablet 10 mg PO DAILY PRN allergy symptoms #90 tabs 06/08/24 zolpidem 10 mg tablet 10 mg PO QHS PRN sleep 06/08/24 blood-glucose meter,continuous (Dexcom G7 [facility]) #1 ea 06/09/24 lidocaine 5 % topical patch 1 patch topical QDAY PRN pain #30 ea 06/16/24 linaclotide 290 mcg capsule (Linzess) 290 mcg PO QDAY #90 caps 06/16/24 meclizine 25 mg tablet 25 mg PO BID PRN motion sickness #30 tabs 06/16/24 aripiprazole 10 mg tablet 10 mg PO QDAY 07/06/24 blood-glucose sensor (Dexcom G7 Sensor device) #1 ea 07/09/24 blood-glucose transmitter (Dexcom G6 Transmitter device) #1 ea 07/09/24 atogepant 60 mg tablet (Qulipta) 60 mg PO DAILY 07/14/24 lamotrigine 200 mg tablet 200 mg PO BID 07/14/24 docusate sodium 100 mg capsule (Colace) 100 mg PO DAILY #90 caps 07/29/24 pantoprazole 40 mg tablet,delayed release 40 mg PO QDAY #90 tabs 07/29/24 sumatriptan succinate 100 mg tablet See Rx Instructions PO .COMPLEX #12 tabs 07/29/24 famotidine 20 mg tablet 20 mg PO QHS 09/07/24 fremanezumab-vfrm 225 mg/1.5 mL subcutaneous auto-injector (Ajovy) 225 mg subcut QMONTH 09/07/24 dulaglutide 1.5 mg/0.5 mL subcutaneous pen injector (Trulicity) 1.5 mg subcut QWEEK 09/10/24 metoclopramide HCl 5 mg tablet (Reglan) 5 mg PO Q6H PRN nausea and vomiting 3 days #10 tabs 09/10/24 acetaminophen 500 mg tablet (Tylenol Extra Strength) 1,000 mg (2 x 500 mg) PO Q8 PRN fever or pain #90 tabs 09/11/24 vcekaffecf-pfgmftdoziwho-zdcbtqcj 50 mg-325 mg-40 mg tablet 1 tab PO Q4H PRN PRN headache 09/13/24 diclofenac sodium 75 mg tablet,delayed release 75 mg PO BID 09/13/24 diphenhydramine HCl 12.5 mg/5 mL oral liquid (M-Dryl) 25 mg PO 4X/DAY PRN PRN allergies 09/13/24 gabapentin 400 mg capsule 400 mg PO 3XD 09/13/24 amoxicillin 875 mg-potassium clavulanate 125 mg tablet 1 tab PO BID 14 days #28 tabs 09/15/24 tramadol 50 mg tablet 50 mg PO BID 7 days #14 tabs 09/15/24 triamcinolone acetonide 0.1 % topical cream 1 applic topical BID #15 grams 09/15/24
== END 2024-09-15 15:52 | disposition home or self-care (01) | DRG 721 ==
LOC: ED 18:16 → MS3 19:40
PROVIDERS: Admitting Provider Surgery; Emergency Provider Emergency Medicine; PCP Internal Medicine; Visit Provider Surgery
PROC: 3C1ZX8Z Irrigation of Indwelling Device using Irrigating Substance, External Approach (ICD-10-PCS; principal; 2024-09-14 10:15)
DX: T80.212A Local infection due to central venous catheter, initial encounter (principal); T82.514A Breakdown (mechanical) of infusion catheter, initial encounter; E11.40 Type 2 diabetes mellitus with diabetic neuropathy, unspecified; F41.9 Anxiety disorder, unspecified; L03.221 Cellulitis of neck; D68.51 Activated protein C resistance; Z95.828 Presence of other vascular implants and grafts; K21.9 Gastro-esophageal reflux disease without esophagitis; I87.8 Other specified disorders of veins; G43.709 Chronic migraine without aura, not intractable, without status migrainosus; L03.313 Cellulitis of chest wall; F43.10 Post-traumatic stress disorder, unspecified; Z79.85 Long-term (current) use of injectable non-insulin antidiabetic drugs; Z79.2 Long term (current) use of antibiotics; Z95.818 Presence of other cardiac implants and grafts; Z86.711 Personal history of pulmonary embolism; Z86.14 Personal history of Methicillin resistant Staphylococcus aureus infection; Z86.73 Personal history of transient ischemic attack (TIA), and cerebral infarction without residual deficits; Z91.048 Other nonmedicinal substance allergy status; Z91.040 Latex allergy status; Z91.041 Radiographic dye allergy status; Y74.1 Therapeutic (nonsurgical) and rehabilitative general hospital and personal-use devices associated with adverse incidents; R21 Rash and other nonspecific skin eruption; Y71.8 Miscellaneous cardiovascular devices associated with adverse incidents, not elsewhere classified; G89.29 Other chronic pain
CPT/HCPCS: 36415; 71045; 77001; 80048; 82962; 85025; 87015; 87040; 87070; 87075; 87102; 87116; 87205; 87206; 93005; 99283; A4216; C1788

== ENCOUNTER → 2024-09-30 | Outpatient (CLI) | payer MEDICAID, SELFPAY ==
--- NOTE | 2024-09-30 09:10 | RAD_ITS ---
EXAM: XR Cervical Spine, 2 or 3 Views CLINICAL INDICATION: CERVICOGENIC HEADACHE TECHNIQUE: Frontal and lateral views of the cervical spine. COMPARISON: No relevant prior studies available. FINDINGS: VERTEBRAE: Unremarkable. No definite fracture. Normal alignment. DISC SPACES: No acute findings. No significant narrowing. SOFT TISSUES: Unremarkable. RAD/Cerv Spine 2 or 3 Views IMPRESSION: No acute fracture. Reading [facility]
== END | disposition home or self-care (01) ==
LOC: RAD 09:00
PROVIDERS: PCP Internal Medicine; Referring Provider Anesthesiology; Visit Provider Anesthesiology
DX: G44.86 Cervicogenic headache (principal)
CPT/HCPCS: 72040

== ENCOUNTER 2024-10-21 11:46 | Emergency (ER) | payer MEDICAID, SELFPAY ==
[2024-10-21 11:46] VITALS: BP 159/100; PULSE 103; RESP 18; TEMP 36.8; O2SAT 98; BMI 40.6
--- NOTE | 2024-10-21 12:06 | EX.ED.VIS.HA ---
HPI <Dr. Elian Arteaga MD - Last Filed: 10/21/24 12:47> History of Present Illness Chief Complaint: Headache <MJ Kelley - Last Filed: 10/21/24 15:50> Narrative Narrative: Patient presenting today due to a headache she has had intermittently since . She reports a history of migraines and frequent sleepwalking. She reports that she was sleepwalking when she ran into an object and fell, causing her to hit her head on the ground. She reports since then she has had blurred vision, she did see the news director Saturday who suspects her visual changes are due to a lazy eye. She again slept a lot last night and ran into an object, fell to the ground and hit the right side of her face on the ground. She has slight swelling above her right eyebrow. Since then her headache has been worse, she has had intermittent nausea. No vomiting or LOC occurred. She did wake up from her sleep walking right after hitting her head both times. She has tried taking her Imitrex with minimal relief of her head pain. She saw her PCP this morning who recommended she come in to have a CT scan of her head performed to rule out intracranial bleed. PFSH <Dr. Elian Arteaga MD - Last Filed: 10/21/24 12:47> [facility] Medical History Head injury Cellulitis Local infection due to Port-A-Cath Wound infection following procedure Implantable loop recorder present Wears glasses Anxiety MRSA infection Substance abuse History of steroid therapy Diabetes Injury of head and neck History of IBS Gastric reflux Open wound of right elbow Leg wound, right Difficult intravenous access Neuropathy Candidiasis Recurrent pulmonary emboli delivery delivered Arthritis Chest pain Prolonged QT interval Diabetes PCOS (polycystic ovarian syndrome) PTSD (post-traumatic stress disorder) Factor V Leiden Anxiety Depression Pulmonary embolism DVT (deep venous thrombosis) TIA (transient ischemic attack) Ovarian cyst Home Medications ?Medication ?Instructions ?Recorded ?Last Taken ?Type sumatriptan succinate 6 mg/0.5 mL 6 mg (0.5 mL) subcut Q12H MIGRAINE 01/02/24 10/21/24 Rx subcutaneous pen injector #1 mL alcohol swabs 1 pad topical DAILY #200 ea 01/21/24 Unknown Rx blood sugar diagnostic (OneTouch #100 ea 01/21/24 Unknown Rx Verio test strips) lancets 30 gauge (OneTouch #200 ea 01/23/24 Unknown Rx UltraSoft 2 Lancet) cetirizine 10 mg tablet 10 mg PO DAILY PRN allergy 06/08/24 10/21/24 Rx symptoms #90 tabs zolpidem 10 mg tablet 10 mg PO QHS PRN sleep 06/08/24 10/20/24 History blood-glucose meter,continuous #1 ea 06/09/24 Unknown Rx (Dexcom G7 Stemmer Machine) lidocaine 5 % topical patch 1 patch topical QDAY PRN pain #30 06/16/24 Unknown Rx ea meclizine 25 mg tablet 25 mg PO BID PRN motion sickness 06/16/24 Unknown Rx #30 tabs aripiprazole 10 mg tablet 10 mg PO QDAY 07/06/24 10/21/24 History blood-glucose transmitter (Dexcom #1 ea 07/09/24 Unknown Rx G6 Transmitter device) atogepant 60 mg tablet (Qulipta) 60 mg PO DAILY 07/14/24 10/21/24 History lamotrigine 200 mg tablet 200 mg PO BID 07/14/24 10/21/24 History docusate sodium 100 mg capsule 100 mg PO DAILY #90 caps 07/29/24 10/21/24 Rx (Colace) pantoprazole 40 mg tablet,delayed 40 mg PO QDAY #90 tabs 07/29/24 10/21/24 Rx release sumatriptan succinate 100 mg tablet See Rx Instructions PO .COMPLEX 07/29/24 10/07/24 Rx #12 tabs famotidine 20 mg tablet 20 mg PO QHS 09/07/24 10/20/24 History dulaglutide 1.5 mg/0.5 mL 1.5 mg subcut QWEEK 09/10/24 10/15/24 History subcutaneous pen injector (Trulicity) acetaminophen 500 mg tablet 1,000 mg (2 x 500 mg) PO Q8 PRN 09/11/24 10/21/24 Rx (Tylenol Extra Strength) fever or pain #90 tabs diphenhydramine HCl 12.5 mg/5 mL 25 mg PO 4X/DAY PRN PRN allergies 09/13/24 Unknown History oral liquid (M-Dryl) gabapentin 400 mg capsule 400 mg PO 3XD 09/13/24 10/21/24 History loperamide 2 mg capsule (Imodium 2 mg PO BID PRN loose stool #10 09/16/24 Unknown Rx A-D) caps blood-glucose sensor (Dexcom G7 #1 ea 09/25/24 Unknown Rx Sensor device) epinephrine 0.3 mg/0.3 mL 0.3 mg (0.3 mL) IM Q5-15M PRN 10/05/24 Unknown Rx injection, auto-injector (EpiPen anaphylaxis #2 ea 2-Scout) hyoscyamine sulfate 0.125 mg tablet 0.125 mg PO BID-QID PRN dyspepsia 10/09/24 Unknown Rx #60 tabs ibuprofen 800 mg tablet 800 mg PO Q8H PRN pain #30 tabs 10/09/24 10/21/24 Rx linaclotide 290 mcg capsule 290 mcg PO QDAY #90 caps 10/13/24 10/21/24 Rx (Linzess) aripiprazole 2 mg tablet 2 mg PO DAILY 10/21/24 10/21/24 History baclofen 5 mg tablet 5 mg PO BID PRN migraine headache 10/21/24 Unknown History clonidine HCl 0.1 mg tablet 0.1 mg PO TID 10/21/24 10/21/24 History drospirenone (contraceptive) 4 mg 1 tab PO DAILY 10/21/24 10/20/24 History (28) tablet (Slynd) erenumab-aooe 70 mg/mL 70 mg subcut QMONTH 10/21/24 10/12/24 History subcutaneous auto-injector (Aimovig Autoinjector) hydroxyzine HCl 50 mg tablet 100 mg PO Q8H 10/21/24 10/21/24 History lasmiditan 100 mg tablet (Reyvow) 100 mg PO PRN MIGRAINE 10/21/24 10/14/24 History Allergy/AdvReac Type Severity Reaction Status Date / Time bee venom protein (honey Allergy Severe Anaphylaxis Verified 10/21/24 11:47 bee) (bee sting) ziprasidone (From Geodon) Allergy Severe facial Verified 10/21/24 11:47 swelling adhesive tape Allergy Mild Rash Verified 10/21/24 11:47 latex Allergy Mild Rash Verified 10/21/24 11:47 Iodinated Contrast Media Allergy Hives Verified 10/21/24 11:47 nitrofurantoin (From Allergy Other Verified 10/21/24 11:47 Macrobid) ondansetron (From Zofran) Allergy Hives Verified 10/21/24 11:47 propranolol Allergy Angioedema Verified 10/21/24 11:47 dihydroergotamine AdvReac Severe Chest Verified 10/21/24 15:01 tightness Family History Other Autoimmune disorder Bleeding disorder Breast cancer CVA (cerebral vascular accident) Colon cancer Diabetes Heart disease Hypertension Myocardial infarction Ovarian cancer Thyroid disorder Surgical History History of vascular access device Port-A-Cath in place H/O hernia repair H/O wisdom tooth extraction H/O oophorectomy Hx of cholecystectomy H/O tubal ligation Social History adopted: No household members: children and none number of children: 2 current occupational status: unemployed pets and animals: No sexually active: No Smoking Status: Never smoker alcohol intake: never substance use type: does not use caffeine: No frequency: 3-4 times per week do you feel safe at home: Yes ROS <MJ Kelley - Last Filed: 10/21/24 15:50> ROS ED Constitutional Constitutional ED: Denies chills or fever(s) Eyes Eyes: Reports blurry vision bilateral Cardiovascular Cardiovascular: Denies chest pain Respiratory/Chest Respiratory/Chest: Denies dyspnea Gastrointestinal Gastrointestinal: Reports nausea; Denies abdominal pain or vomiting Musculoskeletal Musculoskeletal: Denies arthralgias, myalgias or neck pain Integumentary Denies Abrasions Neurologic Neurologic: Reports headache(s); Denies confusion or paresthesias EXAM <Dr. Elian Arteaga MD - Last Filed: 10/21/24 12:47> Physical Exam Const Vital Signs: 10/21/24 11:46 10/21/24 13:46 10/21/24 15:17 Temperature 98.2 F 98 F Temperature Source Temporal Pulse Rate 103 H 87 88 Respiratory Rate 18 14 16 Blood Pressure 159/100 H 140/90 H 152/102 H Blood Pressure Mean 119 106 118 Pulse Ox 98 97 97 Oxygen Delivery Method Room Air <MJ Kelley - Last Filed: 10/21/24 15:50> Physical Exam Const Vital Signs: 10/21/24 11:46 10/21/24 13:46 10/21/24 15:17 Temperature 98.2 F 98 F Temperature Source Temporal Pulse Rate 103 H 87 88 Respiratory Rate 18 14 16 Blood Pressure 159/100 H 140/90 H 152/102 H Blood Pressure Mean 119 106 118 Pulse Ox 98 97 97 Oxygen Delivery Method Room Air Positive well nourished, well developed and no apparent distress General Appearance ED: well developed HEENT Reports normocephalic, head/scalp atraumatic and TM's clear HEENT Narrative: Slight swelling of the right eyebrow, no signs of orbital fracture on exam. Tympanic Membrane ED: Yes TM's clear Mouth ED: Yes moist mucous membranes normal Eyes PERRL and EOMs intact bilaterally Neck full ROM and supple General: Negative for tenderness Chest Wall inspection of chest normal Resp normal respiratory effort and clear to auscultation bilaterally Cardio regular rate and regular rhythm GI soft to palpation, non-tender, non-distended and no masses Back/Spine normal ROM and normal to inspection Extremity normal to inspection and full ROM Neuro oriented x3, CN's II-XII intact bilaterally, moves all extremities, no focal motor deficits and no sensory deficits noted Sensorium / Orientation: awake and alert Motor Exam: strength 5/5 throughout Psych mental status grossly normal and thought process normal Skin no rashes or lesions noted and no wounds MDM <Dr. Elian Arteaga MD - Last Filed: 10/21/24 12:47> MDM MDM Narrative Medical decision making narrative: I have personally performed a face to face assessment of the patient and have reviewed the RAMIREZ Note. I performed a substantive portion of the visit including all aspects of the following. My aguiar findings include: History is 34-year-old female history of clotting disorder and sleepwalking. When she sleepwalks she often falls. Had 2 recent falls striking her head. Complaining of a headache. She is a history of migraines. Currently not on a blood thinner due to the history of falls. Patient does have a care plan. Exam is [well-appearing 34-year-old female. Vital signs are stable and afebrile. No distress. H EENT exam pupils round reactive light. Extra motions are intact. Dentition intact. Moist mucous membranes. She has a contusion above her right eyebrow. No laceration. No blood or bleeding. Scalp nontender no hematoma. C-spine and neck nontender. Back nontender. Lungs clear. Heart regular rhythm no murmur. Chest wall ribs nontender. Abdomen soft nontender. Pelvic girdle intact. Moving all 4 extremities. 5 out of 5 senior manager creative services strength. Dorsi plantarflexion intact. Nontender no deformity. Normal range of motion. Neurologically she is awake alert. Answer questions following commands. GCS 15.] Medical Decison Making [34-year-old female at least 2 falls. Complaining of a headache. CT of the obtained. Due to her history of migraines she will be treated with IV fluids and medications for migraine.] Other additions or changes: [None] History & Record Review Additional record(s) reviewed:: Prior inpatient record, Prior outpatient record, Prior ED visit and Prior labs Radiography Diagnostic Testing: Clinical Impression(s) from Imaging Studies Brain CT 10/21/24 13:20 IMPRESSION: No acute intracranial abnormalities are demonstrated. [facility] <MJ Kelley - Last Filed: 10/21/24 15:50> [facility] MDM Narrative Medical decision making narrative: Patient presenting today after having 2 recent falls on and yesterday causing her to strike her head due to sleepwalking. She has had a headache since. She does have a history of migraines. Not on any anticoagulation. She has a normal neurological exam. No meningeal signs. Head CT will be obtained to assess for intracranial abnormality and is negative. Low suspicion for SAH. She was given IV fluids, Benadryl, and Reglan. She does have a care plan in place. On reexamination she reports that she is still having a headache. She was given Toradol. I offered to give her DHE, she has had this multiple times in the past and it has helped her. However, she told the nurse that she now has an allergy to this medication and did not want to take it. I then offered Decadron but she reports that given her history of diabetes she does not want it to make her hyperglycemic. She requested additional Benadryl, she was already given Benadryl and I do not feel that additional Benadryl is indicated. At this point, feel patient is stable to be discharged, recommended she follow-up with her PCP and patient discharged in stable condition. I have personally performed a face to face assessment of the patient and have reviewed the RAMIREZ Note. I performed a substantive portion of the visit including all aspects of the following. My aguiar findings include: History is 34-year-old female history of clotting disorder and sleepwalking. When she sleepwalks she often falls. Had 2 recent falls striking her head. Complaining of a headache. She is a history of migraines. Currently not on a blood thinner due to the history of falls. Patient does have a care plan. Exam is [well-appearing 34-year-old female. Vital signs are stable and afebrile. No distress. H EENT exam pupils round reactive light. Extra motions are intact. Dentition intact. Moist mucous membranes. She has a contusion above her right eyebrow. No laceration. No blood or bleeding. Scalp nontender no hematoma. C-spine and neck nontender. Back nontender. Lungs clear. Heart regular rhythm no murmur. Chest wall ribs nontender. Abdomen soft nontender. Pelvic girdle intact. Moving all 4 extremities. 5 out of 5 senior manager creative services strength. Dorsi plantarflexion intact. Nontender no deformity. Normal range of motion. Neurologically she is awake alert. Answer questions following commands. GCS 15.] Medical Decison Making [34-year-old female at least 2 falls. Complaining of a headache. CT of the obtained. Due to her history of migraines she will be treated with IV fluids and medications for migraine.] Other additions or changes: [None] Radiography Diagnostic Testing: Clinical Impression(s) from Imaging Studies Brain CT 10/21/24 13:20 IMPRESSION: No acute intracranial abnormalities are demonstrated. Reading Location: [place] [address] Discharge Plan Triage Chief Complaint: Headache ED Midlevel Provider: Kim Vasquez ED Provider: Elian Arteaga Dx/Rx/DC Orders Clinical Impression: Headache, Head injury Instructions: Self-Care for Headaches Prescriptions: No Action zolpidem 10 mg tablet 10 mg PO QHS PRN (Reason: sleep) cetirizine 10 mg tablet 10 mg PO DAILY PRN (Reason: allergy symptoms) Qty: 90 1RF aripiprazole 10 mg tablet 10 mg PO QDAY Rx Instructions: WITH 2MG TOTAL DAILY DOSE 12MG pantoprazole 40 mg tablet,delayed release (DR/EC) 40 mg PO QDAY Qty: 90 0RF docusate sodium [Colace] 100 mg capsule 100 mg PO DAILY Qty: 90 0RF sumatriptan succinate 100 mg tablet See Rx Instructions PO .COMPLEX Qty: 12 2RF Rx Instructions: take 1 tab at onset of headache; if no relief, may repeat 1 tab after at least 2 hrs; max = 2 tabs/24 hrs PO lamotrigine 200 mg tablet 200 mg PO BID Qulipta 60 mg tablet 60 mg PO DAILY aripiprazole 2 mg tablet 2 mg PO DAILY Rx Instructions: WITH 10MG TOTAL DAILY DOSE 12MG baclofen 5 mg tablet 5 mg PO BID PRN (Reason: migraine headache) clonidine HCl 0.1 mg tablet 0.1 mg PO TID hydroxyzine HCl 50 mg tablet 100 mg PO Q8H Aimovig Autoinjector 70 mg/mL auto-injector 70 mg SUBCUT QMONTH Patient Comments: [NO ORIGINAL SIG] Slynd 4 mg (28) tablet 1 tab PO DAILY Reyvow 100 mg tablet 100 mg PO PRN famotidine 20 mg tablet 20 mg PO QHS Trulicity 1.5 mg/0.5 mL pen injector 1.5 mg subcut QWEEK diphenhydramine HCl [M-Dryl] 12.5 mg/5 mL liquid 25 mg PO 4X/DAY PRN PRN (Reason: allergies) gabapentin 400 mg capsule 400 mg PO 3XD sumatriptan succinate 6 mg/0.5 mL pen injector 6 mg SUBCUT Q12H Qty: 1 2RF alcohol swabs Pads, Medicated 1 pad topical DAILY Qty: 200 0RF (DME) OneTouch Verio test strips Strip See Rx Instructions .Route Qty: 100 0RF Rx Instructions: Use one strip once per day to check blood glucose level (DME) lancets [OneTouch UltraSoft 2 Lancet] 30 gauge misc See Rx Instructions .Route Qty: 200 0RF Rx Instructions: Use once daily to check blood glucose level (DME) Dexcom G7 Stemmer Machine Misc See Rx Instructions .Route Qty: 1 5RF Rx Instructions: As directed meclizine 25 mg tablet 25 mg PO BID PRN (Reason: motion sickness) Qty: 30 1RF lidocaine 5 % adhesive patch,medicated 1 patch topical QDAY PRN (Reason: pain) Qty: 30 3RF Rx Instructions: leave on most painful area for up to 12 hrs (DME) Dexcom G6 Transmitter Device See Rx Instructions .Route Qty: 1 5RF Rx Instructions: As directed acetaminophen [Tylenol Extra Strength] 500 mg tablet 1,000 mg PO Q8 PRN (Reason: fever or pain) Qty: 90 0RF loperamide [Imodium A-D] 2 mg capsule 2 mg PO BID PRN (Reason: loose stool) Qty: 10 0RF (DME) Dexcom G7 Sensor Device See Rx Instructions .Route Qty: 1 5RF Rx Instructions: As directed epinephrine [EpiPen 2-Scout] 0.3 mg/0.3 mL auto-injector 0.3 mg IM Q5-15M PRN (Reason: anaphylaxis) Qty: 2 1RF Rx Instructions: do not exceed 3 doses per episode hyoscyamine sulfate 0.125 mg tablet 0.125 mg PO BID-QID PRN (Reason: dyspepsia) Qty: 60 1RF ibuprofen 800 mg tablet 800 mg PO Q8H PRN (Reason: pain) Qty: 30 0RF Linzess 290 mcg capsule 290 mcg PO QDAY Qty: 90 0RF Primary Care Provider: Erika Ware Referrals: Erika Ware MD [Primary Care Provider] - 5-7 Days Activity Restrictions/Additional Instructions: Follow-up with your PCP. Return for any other concerns. Print Language: Slovak Disposition Disposition: Home, Self Care Discharge Date/Time: 10/21/24 15:24
[2024-10-21] MEDS: 0.9% Normal Saline (1000mL) 1,000 ML 999 ML IV (13:18)
--- NOTE | 2024-10-21 13:20 | CT_ITS ---
PROCEDURE: BRAIN/HEAD WITHOUT CONTRAST 10/21/2024 REASON FOR EXAM: HEAD INJURY, HEADACHE TECHNIQUE: Head CT without intravenous contrast. Coronal and Sagittal reconstruction series were provided. One or more dose reduction techniques were used (e.g., Automated exposure control, adjustment of the mA and/or kV according to patient size, use of iterative reconstruction technique. RADIATION DOSE SUMMARY: CTDlvol: 44.99 mGy DLP: 812.98 mGycm COMPARISON: CT brain dated 09/02/2024. FINDINGS: Cerebrum: No intraparenchymal hemorrhage. No abnormal areas of encephalomalacia. No mass effect or midline shift. Royal-white matter differentiation is normal. Ventricles and cisterns: Appropriate size for patient's age. Extra-axial fluid: Unremarkable. Posterior fossa: Unremarkable cerebellum. No abnormalities involving the brainstem. Paranasal sinuses: Normal. Vasculature: Unremarkable. Mastoid air cells: Normal. Calvarium: Unremarkable. Soft tissues: Unremarkable. CT/Brain/Head without Contrast IMPRESSION: No acute intracranial abnormalities are demonstrated. Reading Location: [place] [id number]
[2024-10-21] MEDS: DiphenhydrAMINE 50 MG/ML Syringe 25 MG IV (13:21)
[2024-10-21] MEDS: Metoclopramide 10 MG/2 ML Vial IV (13:21)
[2024-10-21 13:46] VITALS: BP 140/90; PULSE 87; RESP 14; O2SAT 97
[2024-10-21] MEDS: Ketorolac 30 MG/ML Syringe IV (14:32)
[2024-10-21 15:17] VITALS: BP 152/102; PULSE 88; RESP 16; TEMP 36.6; O2SAT 97
--- NOTE | 2024-10-21 15:19 | ED.RN ---
This RN came into the patient room with dc instructions and I stated that I am going to check and see if they ordered any PO meds but you aren't getting any more benadryl. The patient requested to speak to Dr Arteaga and not Ale. This RN stated The discharge papers and not giving more benadryl came from Dr Arteaga. This RN removed the pt IV and asked Do you still want me to get Dr Arteaga in here for you? The pt stated No there is no point. and left the unit.
== END 2024-10-21 15:24 | disposition home or self-care (01) ==
PROVIDERS: Emergency Provider Emergency Medicine; PCP Internal Medicine; Visit Provider Emergency Medicine
DX: S09.90XA Unspecified injury of head, initial encounter (principal); E11.40 Type 2 diabetes mellitus with diabetic neuropathy, unspecified; R11.0 Nausea; S00.11XA Contusion of right eyelid and periocular area, initial encounter; F51.3 Sleepwalking [somnambulism]; R51.9 Headache, unspecified; W19.XXXA Unspecified fall, initial encounter
CPT/HCPCS: 70450; 96361; 96374; 96375; 99284; A4216; J1110

== ENCOUNTER 2024-10-25 21:43 | Emergency (ER) | payer MEDICAID, SELFPAY ==
[2024-10-25 21:44] VITALS: BP 143/80; PULSE 139; RESP 20; TEMP 36.7; O2SAT 100; BMI 40.9
--- NOTE | 2024-10-25 22:38 | EKG12_ITS ---
Test Reason : CP Blood Pressure : */* mmHG Vent. Rate : 133 BPM Atrial Rate : 133 BPM P-R Int : 166 ms QRS Dur : 94 ms QT Int : 272 ms P-R-T Axes : 68 41 128 degrees QTcB Int : 404 ms Sinus tachycardia Nonspecific ST and T wave abnormality Abnormal ECG Confirmed by Rajat Lawson ([id number]), assistant film editor ADRIANNA DOZIER ([id number]) on 10/26/2024 1:14:43 PM Referred By: Confirmed By: Rajat Lawson
--- NOTE | 2024-10-25 22:43 | ED.VIS.CHEST ---
HPI History of Present Illness Chief Complaint: Chest Pain Informant: patient Narrative Narrative: Brought in by EMS chest pain racing heart dyspnea reported syncopal episode by patient in the ambulance. History of significant migraines gets infusions monthly had infected Mediport a month ago hospitalized and it being removed. History of factor V Leiden with DVT PE in over a month ago was taken off her anticoagulants due to sleepwalking and falling. She is going for sleep study. This was scheduled with patient and PCP. No leg swelling or cramping. Heart rate tachycardic on arrival there is no recent vomiting or diarrhea. States heart rate typically in the 80s per patient. Allergy to IV dye however gotten CTs with contrast when prepped in the past. [facility] Medical History Head injury Cellulitis Local infection due to Port-A-Cath Wound infection following procedure Implantable loop recorder present Wears glasses Anxiety MRSA infection Substance abuse History of steroid therapy Diabetes Injury of head and neck History of IBS Gastric reflux Open wound of right elbow Leg wound, right Difficult intravenous access Neuropathy Candidiasis Recurrent pulmonary emboli delivery delivered Arthritis Chest pain Prolonged QT interval Diabetes PCOS (polycystic ovarian syndrome) PTSD (post-traumatic stress disorder) Factor V Leiden Anxiety Depression Pulmonary embolism DVT (deep venous thrombosis) TIA (transient ischemic attack) Ovarian cyst Home Medications ?Medication ?Instructions ?Recorded ?Last Taken ?Type sumatriptan succinate 6 mg/0.5 mL 6 mg (0.5 mL) subcut Q12H MIGRAINE 01/02/24 10/21/24 Rx subcutaneous pen injector #1 mL alcohol swabs 1 pad topical DAILY #200 ea 01/21/24 Unknown Rx blood sugar diagnostic (OneTouch #100 ea 01/21/24 Unknown Rx Verio test strips) lancets 30 gauge (OneTouch #200 ea 01/23/24 Unknown Rx UltraSoft 2 Lancet) cetirizine 10 mg tablet 10 mg PO DAILY PRN allergy 06/08/24 10/21/24 Rx symptoms #90 tabs zolpidem 10 mg tablet 10 mg PO QHS PRN sleep 06/08/24 10/20/24 History blood-glucose meter,continuous #1 ea 06/09/24 Unknown Rx (Dexcom G7 Agronomy Research Manager) lidocaine 5 % topical patch 1 patch topical QDAY PRN pain #30 06/16/24 Unknown Rx ea meclizine 25 mg tablet 25 mg PO BID PRN motion sickness 06/16/24 Unknown Rx #30 tabs aripiprazole 10 mg tablet 10 mg PO QDAY 07/06/24 10/21/24 History blood-glucose transmitter (Dexcom #1 ea 07/09/24 Unknown Rx G6 Transmitter device) atogepant 60 mg tablet (Qulipta) 60 mg PO DAILY 07/14/24 10/21/24 History lamotrigine 200 mg tablet 200 mg PO BID 07/14/24 10/21/24 History docusate sodium 100 mg capsule 100 mg PO DAILY #90 caps 07/29/24 10/21/24 Rx (Colace) pantoprazole 40 mg tablet,delayed 40 mg PO QDAY #90 tabs 07/29/24 10/21/24 Rx release sumatriptan succinate 100 mg tablet See Rx Instructions PO .COMPLEX 07/29/24 10/07/24 Rx #12 tabs famotidine 20 mg tablet 20 mg PO QHS 09/07/24 10/20/24 History dulaglutide 1.5 mg/0.5 mL 1.5 mg subcut QWEEK 09/10/24 10/15/24 History subcutaneous pen injector (Trulicity) acetaminophen 500 mg tablet 1,000 mg (2 x 500 mg) PO Q8 PRN 09/11/24 10/21/24 Rx (Tylenol Extra Strength) fever or pain #90 tabs diphenhydramine HCl 12.5 mg/5 mL 25 mg PO 4X/DAY PRN PRN allergies 09/13/24 Unknown History oral liquid (M-Dryl) gabapentin 400 mg capsule 400 mg PO 3XD 09/13/24 10/21/24 History loperamide 2 mg capsule (Imodium 2 mg PO BID PRN loose stool #10 09/16/24 Unknown Rx A-D) caps blood-glucose sensor (Dexcom G7 #1 ea 09/25/24 Unknown Rx Sensor device) epinephrine 0.3 mg/0.3 mL 0.3 mg (0.3 mL) IM Q5-15M PRN 10/05/24 Unknown Rx injection, auto-injector (EpiPen anaphylaxis #2 ea 2-Scout) hyoscyamine sulfate 0.125 mg tablet 0.125 mg PO BID-QID PRN dyspepsia 10/09/24 Unknown Rx #60 tabs ibuprofen 800 mg tablet 800 mg PO Q8H PRN pain #30 tabs 10/09/24 10/21/24 Rx linaclotide 290 mcg capsule 290 mcg PO QDAY #90 caps 10/13/24 10/21/24 Rx (Linzess) aripiprazole 2 mg tablet 2 mg PO DAILY 10/21/24 10/21/24 History baclofen 5 mg tablet 5 mg PO BID PRN migraine headache 10/21/24 Unknown History clonidine HCl 0.1 mg tablet 0.1 mg PO TID 10/21/24 10/21/24 History drospirenone (contraceptive) 4 mg 1 tab PO DAILY 10/21/24 10/20/24 History (28) tablet (Slynd) erenumab-aooe 70 mg/mL 70 mg subcut QMONTH 10/21/24 10/12/24 History subcutaneous auto-injector (Aimovig Autoinjector) hydroxyzine HCl 50 mg tablet 100 mg PO Q8H 10/21/24 10/21/24 History lasmiditan 100 mg tablet (Reyvow) 100 mg PO PRN MIGRAINE 10/21/24 10/14/24 History Allergy/AdvReac Type Severity Reaction Status Date / Time bee venom protein (honey Allergy Severe Anaphylaxis Verified 10/21/24 11:47 bee) (bee sting) ziprasidone (From Geodon) Allergy Severe facial Verified 10/21/24 11:47 swelling adhesive tape Allergy Mild Rash Verified 10/21/24 11:47 latex Allergy Mild Rash Verified 10/21/24 11:47 Iodinated Contrast Media Allergy Hives Verified 10/21/24 11:47 nitrofurantoin (From Allergy Other Verified 10/21/24 11:47 Macrobid) ondansetron (From Zofran) Allergy Hives Verified 10/21/24 11:47 propranolol Allergy Angioedema Verified 10/21/24 11:47 dihydroergotamine AdvReac Severe Chest Verified 10/21/24 15:01 tightness Family History Other Autoimmune disorder Bleeding disorder Breast cancer CVA (cerebral vascular accident) Colon cancer Diabetes Heart disease Hypertension Myocardial infarction Ovarian cancer Thyroid disorder Surgical History History of vascular access device Port-A-Cath in place H/O hernia repair H/O wisdom tooth extraction H/O oophorectomy Hx of cholecystectomy H/O tubal ligation Social History adopted: No household members: children and none number of children: 2 current occupational status: unemployed pets and animals: No sexually active: No Smoking Status: Never smoker alcohol intake: never substance use type: does not use caffeine: No frequency: 3-4 times per week do you feel safe at home: Yes ROS ROS ED Constitutional Constitutional ED: Denies chills, fever(s) or sweats ENT ENT ED: Denies sore throat Cardiovascular Cardiovascular: Reports chest pain, palpitations and racing heartbeat; Denies leg edema Respiratory/Chest Respiratory/Chest: Reports dyspnea; Denies cough or dyspnea on exertion Gastrointestinal Gastrointestinal: Denies abdominal pain, diarrhea, nausea or vomiting Genitourinary Genitourinary ED: Denies dysuria, hematuria or urinary frequency Musculoskeletal Musculoskeletal: Denies back pain, extremity pain or neck pain Integumentary Denies rash or wounds Neurologic Neurologic: Denies headache(s), paresthesias or weakness EXAM Physical Exam Const Vital Signs: 10/25/24 21:44 10/25/24 22:47 10/25/24 22:56 Temperature 98.0 F 98.0 F Temperature Source Oral Oral Pulse Rate 139 H 128 H 129 H Respiratory Rate 20 H 16 16 Blood Pressure 143/80 H 127/72 H 127/72 H Blood Pressure Mean 101 90 90 Pulse Ox 100 99 99 Oxygen Delivery Method Room Air Room Air Room Air 10/25/24 23:56 10/26/24 00:00 10/26/24 00:51 Temperature 98.9 F 98.8 F 98.1 F Temperature Source Oral Oral Pulse Rate 113 H 111 H 68 Respiratory Rate 15 16 17 Blood Pressure 132/87 H 127/81 H 123/81 H Blood Pressure Mean 102 96 95 Pulse Ox 100 99 97 Oxygen Delivery Method Room Air Room Air Positive well nourished and well developed General Appearance ED: well developed and NAD HEENT Reports moist mucous membranes normocephalic and atraumatic Eyes General Eye ED: Yes normal appearance of both eyes Neck full ROM Chest Wall Chest Narrative: dressing right chest c/d/i. Chest: Negative for tenderness Resp normal respiratory effort and normal air movement Effort and Inspection: symmetric chest movement; Negative for respiratory distress Cardio regular rhythm and no murmurs Rate: tachycardic Peripheral Pulses: pulses 2+ throughout GI normal to inspection, nondistended, normoactive bowel sounds and non-tender Palpation: Negative for guarding or rebound tenderness present Extremity normal to inspection General Extremety ED: Negative for edema or tenderness General Extremity: Negative for edema Neuro oriented x3 and no sensory deficits noted Sensorium / Orientation: awake and alert Skin no rashes or lesions noted and no wounds MDM MDM MDM Narrative Medical decision making narrative: Interventions / MDM: Differential diagnosis: Chest pain, dyspnea, sinus tachycardia, fever AGAINST MEDICAL ADVICE Diagnosis considered but do not suspect: Pulmonary embolism however negative D-dimer pulse ox stable. ACS however EKG with no ischemic for initial troponin negative. My EKG interpretation: Sinus rhythm 133, no ST changes. Imaging independently reviewed and interpreted by myself: N/A External documents reviewed: N/A Test considered but not ordered:N/A ED course: Tachycardic recent infection Mediport hospitalized history of factor V Leiden off anticoagulants. Pulse ox 99 on room air. EKG sinus tachycardia will check labs will prep for CT of the chest to rule out PE with her symptoms. 0043: Patient's lab work listed: BMP normal. Labs are stable. hCG negative. There is difficulty Stresstabs IV for the CT angiogram. IV in her breast region was drawn labs. Reevaluated patient she clinically was feeling better D-dimer is negative. Discussed with normal pulse ox no D-dimer likely not needed for CT angiogram. She agrees. I discussed further testing with chest x-ray delta troponin was just obtained and going to the lab. However she states she clinically was feeling better and would like to leave. She is alert and oriented x 3 is capable making decisions. She was signed out AGAINST MEDICAL ADVICE. Re-evaluation: stable Disposition discussed with patient/family/significant other: Patient Case discussed with consulting clinician: N/A This note was generated with Blink dictation software. It may contain incorrect words, spelling, and punctuation that were not noted in checking the note before signing. Lab Data Attestation: I reviewed the patient's lab results. Labs: Laboratory Results - last 24 hr 04/13/25 04/14/25 21:50 00:41 WBC 5.8 RBC 4.21 Hgb 11.6 L Hct 33.9 L MCV 80.5 L MCH 27.6 MCHC 34.2 RDW Std Deviation 34.4 L RDW Coeff of Millie 11.9 Plt Count 278 MPV 8.9 Immature Gran % (Auto) 0.200 Neut % (Auto) 37.9 L Lymph % (Auto) 50.7 H Charlton % (Auto) 8.7 Eos % (Auto) 2.2 Baso % (Auto) 0.3 Absolute Neuts (auto) 2.2 Absolute Lymphs (auto) 2.93 Nucleated RBC % 0 D-Dimer Quant (PE/DVT) 0.27 Sodium 139 Potassium 3.5 Chloride 104 Carbon Dioxide 20.5 L Anion Gap 15 BUN 16 Creatinine 0.72 Estim Creat Clear Calc 120.42 Est GFR (MDRD) Non-Af 114 BUN/Creatinine Ratio 21.8 H Glucose 168 H Calcium 9.8 Troponin T High Sens < 6 Troponin T Hi Sens 2 Hr < 6 NT pro BNP II < 36 Serum , Qual NEGATIVE Discharge Plan Triage Chief Complaint: Chest Pain ED Provider: Everton Stoll Dx/Rx/DC Orders Clinical Impression: Chest pain, Dyspnea, Sinus tachycardia Instructions: ED Chest Pain, Uncertain Cause, ED Dyspnea Prescriptions: No Action zolpidem 10 mg tablet 10 mg PO QHS PRN (Reason: sleep) cetirizine 10 mg tablet 10 mg PO DAILY PRN (Reason: allergy symptoms) Qty: 90 1RF aripiprazole 10 mg tablet 10 mg PO QDAY Rx Instructions: WITH 2MG TOTAL DAILY DOSE 12MG pantoprazole 40 mg tablet,delayed release (DR/EC) 40 mg PO QDAY Qty: 90 0RF docusate sodium [Colace] 100 mg capsule 100 mg PO DAILY Qty: 90 0RF sumatriptan succinate 100 mg tablet See Rx Instructions PO .COMPLEX Qty: 12 2RF Rx Instructions: take 1 tab at onset of headache; if no relief, may repeat 1 tab after at least 2 hrs; max = 2 tabs/24 hrs PO lamotrigine 200 mg tablet 200 mg PO BID Qulipta 60 mg tablet 60 mg PO DAILY aripiprazole 2 mg tablet 2 mg PO DAILY Rx Instructions: WITH 10MG TOTAL DAILY DOSE 12MG baclofen 5 mg tablet 5 mg PO BID PRN (Reason: migraine headache) clonidine HCl 0.1 mg tablet 0.1 mg PO TID hydroxyzine HCl 50 mg tablet 100 mg PO Q8H Aimovig Autoinjector 70 mg/mL auto-injector 70 mg SUBCUT QMONTH Patient Comments: [NO ORIGINAL SIG] Slynd 4 mg (28) tablet 1 tab PO DAILY Reyvow 100 mg tablet 100 mg PO PRN famotidine 20 mg tablet 20 mg PO QHS Trulicity 1.5 mg/0.5 mL pen injector 1.5 mg subcut QWEEK diphenhydramine HCl [M-Dryl] 12.5 mg/5 mL liquid 25 mg PO 4X/DAY PRN PRN (Reason: allergies) gabapentin 400 mg capsule 400 mg PO 3XD sumatriptan succinate 6 mg/0.5 mL pen injector 6 mg SUBCUT Q12H Qty: 1 2RF alcohol swabs Pads, Medicated 1 pad topical DAILY Qty: 200 0RF (DME) OneTouch Verio test strips Strip See Rx Instructions .Route Qty: 100 0RF Rx Instructions: Use one strip once per day to check blood glucose level (DME) lancets [OneTouch UltraSoft 2 Lancet] 30 gauge misc See Rx Instructions .Route Qty: 200 0RF Rx Instructions: Use once daily to check blood glucose level (DME) Dexcom G7 Agronomy Research Manager Misc See Rx Instructions .Route Qty: 1 5RF Rx Instructions: As directed meclizine 25 mg tablet 25 mg PO BID PRN (Reason: motion sickness) Qty: 30 1RF lidocaine 5 % adhesive patch,medicated 1 patch topical QDAY PRN (Reason: pain) Qty: 30 3RF Rx Instructions: leave on most painful area for up to 12 hrs (DME) Dexcom G6 Transmitter Device See Rx Instructions .Route Qty: 1 5RF Rx Instructions: As directed acetaminophen [Tylenol Extra Strength] 500 mg tablet 1,000 mg PO Q8 PRN (Reason: fever or pain) Qty: 90 0RF loperamide [Imodium A-D] 2 mg capsule 2 mg PO BID PRN (Reason: loose stool) Qty: 10 0RF (DME) Dexcom G7 Sensor Device See Rx Instructions .Route Qty: 1 5RF Rx Instructions: As directed epinephrine [EpiPen 2-Scout] 0.3 mg/0.3 mL auto-injector 0.3 mg IM Q5-15M PRN (Reason: anaphylaxis) Qty: 2 1RF Rx Instructions: do not exceed 3 doses per episode hyoscyamine sulfate 0.125 mg tablet 0.125 mg PO BID-QID PRN (Reason: dyspepsia) Qty: 60 1RF ibuprofen 800 mg tablet 800 mg PO Q8H PRN (Reason: pain) Qty: 30 0RF Linzess 290 mcg capsule 290 mcg PO QDAY Qty: 90 0RF Primary Care Provider: Erika Ware Referrals: Erika Ware MD [Primary Care Provider] - 1 Day Activity Restrictions/Additional Instructions: He signed out AGAINST MEDICAL ADVICE. EKG sinus tachycardia. Initial troponin D-dimer and BNP negative. Follow-up with your doctor. If you do change your mind return to the ED for reevaluation. Print Language: Slovenian Disposition Disposition: Against Medical Advice Discharge Date/Time: 10/26/24 00:51
[2024-10-25 22:47] VITALS: BP 127/72; PULSE 128; RESP 16; TEMP 36.7; O2SAT 99
[2024-10-25] MEDS: MethylPREDNISolone 125 MG/2 ML Vial IV (22:49)
[2024-10-25] MEDS: DiphenhydrAMINE 50 MG/ML Syringe IV (22:49)
[2024-10-25] MEDS: 0.9% Normal Saline (1000mL) 1,000 ML 1000 ML IV (22:50)
[2024-10-25 22:56] VITALS: BP 127/72; PULSE 129; RESP 16; O2SAT 99
[2024-10-25 23:02] LABS: Absolute Lymphocyte Count 2.93 X10^3/uL (0.83-4.51); Absolute Neutrophil Count 2.2 X10^3/uL (2.0-7.7); Basophil# 0.02 X10^3/uL; Basophil% 0.3 % (0-1); Eosinophil# 0.13 X10^3/uL; Eosinophils% 2.2 % (0-5); Hematocrit 33.9 % (37-47); Hemoglobin 11.6 g/dL (12.0-15.0); Lymphocyte # 2.93 X10^3/ul (0.83-4.51); Lymphocyte % 50.7 % (19-41); Mean Corp Hgb Conc 34.2 g/dL (32-36); Mean Corpuscular Hgb 27.6 pg (27.0-32.0); Mean Corpuscular Volume 80.5 fL (81-99); Mean Platelet Vol. 8.9 fl (6.2-12.0); Monocyte% 8.7 % (0-10); NRBC Flagged by Analyzer 0 % (0-5); Neutrophil # 2.19 X10^3/uL (2.7-7.7); Neutrophil % 37.9 % (47-70); Platelet Count 278 K/mm3 (150-450); RBC Distribution Width CV 11.9 % (11.6-14.6); RBC Distribution Width SD 34.4 fl (35.1-43.9); Red Blood Count 4.21 M/mm3 (4.2-5.4); White Blood Count 5.8 K/mm3 (4.4-11.0)
[2024-10-25 23:17] LABS: Internal QC Validated? YES +Cl - CLEAR BKGD; Pregnancy, Serum, hCG Quali. NEGATIVE Negative
[2024-10-25 23:20] LABS: D-Dimer Quantitative (DVT/PE) 0.27 FEU/ug/m (0.27-0.49)
[2024-10-25 23:38] LABS: Anion Gap 15 (5-15); BUN 16 mg/dL (4-19); BUN/Creat Ratio 21.8 RATIO (10-20); Calcium,Total 9.8 mg/dL (7.6-11.0); Carbon Dioxide 20.5 mmol/L (21.0-32.0); Chloride 104 mmol/L (98-108); Creatinine, Serum 0.72 mg/dL (0.70-1.20); EST Glomerular Filtration Rate 114 (>60); Estimated Creatinine Clearance 120.42 ml/min (50-250); Glucose 168 mg/dL (70-99); Potassium 3.5 mmol/L (3.3-5.1); Sodium Level 139 mmol/L (133-145)
[2024-10-25 23:40] LABS: Pro- Brain NATRIURETIC PEPTIDE < 36 pg/mL (<=450); Troponin T High Sensitivity < 6 ng/L (<=14)
[2024-10-25 23:56] VITALS: BP 132/87; PULSE 113; RESP 15; TEMP 37.2; O2SAT 100
[2024-10-26] VITALS: BP 127/81; PULSE 111; RESP 16; TEMP 37.1; O2SAT 99
[2024-10-26 00:51] VITALS: BP 123/81; PULSE 68; RESP 17; TEMP 36.7; O2SAT 97
[2024-10-26 01:06] LABS: Troponin T High Sens 2 HR < 6 ng/L (<=14)
== END 2024-10-26 00:51 | disposition left against medical advice (07) ==
PROVIDERS: Emergency Provider Emergency Medicine; PCP Internal Medicine; Visit Provider Emergency Medicine
DX: R07.9 Chest pain, unspecified (principal); E11.40 Type 2 diabetes mellitus with diabetic neuropathy, unspecified; Z53.29 Procedure and treatment not carried out because of patient's decision for other reasons; R06.00 Dyspnea, unspecified; R00.0 Tachycardia, unspecified; K21.9 Gastro-esophageal reflux disease without esophagitis
CPT/HCPCS: 80048; 83880; 84484; 84703; 85025; 85379; 93005; 96360; 99285; A4216

== ENCOUNTER → 2024-12-09 | Outpatient (CLI) | payer MEDICAID, SELFPAY ==
--- NOTE | 2024-12-09 12:45 | RAD_ITS ---
PROCEDURE: CERV SPINE 2 OR 3 VIEWS 12/09/2024 REASON FOR EXAM: HEADACHES TECHNIQUE: 3 views of the cervical spine. 2 laterals and 2 open-mouth odontoid, 5 total images COMPARISON: 09/30/2024 FINDINGS: Cervical spine is visualized on the lateral view from the skull base to the bottom of C7. No fracture or malalignment. Mild rightward curvature of the cervical spine may represent positioning or spasm. Visualized disc spaces appear within limits. No evidence of prevertebral soft tissue swelling. Visualized apices appear clear. RAD/Cerv Spine 2 or 3 Views IMPRESSION: Mild rightward curvature of the cervical spine may represent positioning or spa sm. Reading Location: [id number]
== END | disposition home or self-care (01) ==
LOC: RAD 12:40
PROVIDERS: PCP Internal Medicine; Referring Provider Anesthesiology; Visit Provider Anesthesiology
DX: G44.86 Cervicogenic headache (principal)
CPT/HCPCS: 72040

== ENCOUNTER 2024-12-18 10:22 | Day surgery (SDC) | payer MEDICAID, SELFPAY ==
--- NOTE | 2024-12-11 14:55 | PAT.ANESEVAL ---
Pre-Assessment Diagnosis/Proposed Procedure Planned Operative Procedure(s): INSERTION VASCULA PORT LEFT Anesthesia History Anesthesia History - patient registration specialist: Anesthesia History - patient registration specialist Hx Hospitalization Yes: INFECTED VASCULAR PORT 12/11/24 13:05 09/2024 Any Problems With Anesthesia Yes: EMOTIONAL AND CRYING/ 12/11/24 13:05 PONV Cholinesterase deficiency No 12/11/24 13:05 You/Your Family Experience No 12/11/24 13:05 fever (hyperthermia) with Relationship Recent Exposure to Contagious No 09/28/24 10:01 Disease Does patient have nerve No 12/11/24 13:05 stimulator Patient instructed to have device shut off --Does patient have Pacemaker or ICD? When Was Last Pacemaker Check QUESTION #4 FULL TEXT: You/Your Family Experience fever (hyperthermia) with Anesthesia Last Oral Intake Last Oral intake: Last Oral Intake NPO since Meds taken in AM with sips of water? Meds patient instructed to take am of surgery PONV PONV - patient registration specialist: PONV - patient registration specialist Female Yes 12/11/24 13:05 HX of Motion Sickness Yes 12/11/24 13:05 HX of N/V After Surgery Yes 12/11/24 13:05 Non-Smoker Yes 12/11/24 13:05 Duration of Surgery greater No 12/11/24 13:05 than 60 minutes Number of Risk Factors 4 12/11/24 13:05 PONV Score Severe Risk 12/11/24 13:05 Height & Weight Height & Weight: Anesthesia: Height & Weight Height 5 ft 1 in 11/19/24 12:19 Respiratory Assessment Respiratory Assessment - patient registration specialist: Respiratory Tract Infection Hx - patient registration specialist Hx Respiratory Tract Infection No 12/11/24 13:05 STOP Sleep Apnea STOP Sleep Apnea - patient registration specialist: STOP Sleep Apnea - patient registration specialist Hx Hypertension Yes: NO MEDS FOR 2-3 YRS 12/11/24 13:05 Hx Sleep Apnea No 12/11/24 13:05 CPAP BIPAP Do you snore loudly (louder No 12/11/24 13:05 than talking or can be heard Do you often feel tired/ Yes 12/11/24 13:05 fatigued/ sleepy during daytime? Has anyone observed you stop No 12/11/24 13:05 breathing during sleep? STOP Results Positive 12/11/24 13:05 QUESTION #5 FULL TEXT : Do you snore loudly (louder than talking or can be heard through closed doors)? Tobacco Use History Tobacco Use History - patient registration specialist: Tobacco Use History - patient registration specialist Tobacco Use Smoking Status Never smoker 12/11/24 13:05 Hx Tobacco Use No 12/11/24 13:05 Years Smoking Packs Smoked per Day Smoking Cessation Date was within the last 15 years Hx Smoking Cessation Date Hx Smoking Cessation Counseling Hematologic Medial History Hematologic Hx - patient registration specialist: Hematologic Medical Hx - desk manager Hx of Blood Transfusion No 12/11/24 13:05 Hx of Transfusion in last 3 No 12/11/24 13:05 Months Date of Last Transfusion (if within last 3 months) Ever experience any problems No 12/11/24 13:05 with transfusion(s)? Specify any problems Hx of Preganancy in last 3 No 12/11/24 13:05 Months Nurse Filling Out Transfusion DSCHRIBER 12/11/24 13:05 & Questions: Date: 12/11/24 12/11/24 13:05 Time: 13:07 12/11/24 13:05 Patient unable to answer at this time (ie. confused, unrespo /Reproduction History /Reproductive History - patient registration specialist: /Reproductive Hx- patient registration specialist Hx Now No 12/11/24 13:05 Gestational Age (in weeks): EDC: Hx Hx Para Hx Section SAB No 12/11/24 13:05 PFSH Medical History (Updated 12/11/24 @ 13:16 by Justine Ruby) Easy bruising Dietary restriction Implantable loop recorder present Wears glasses Anxiety MRSA infection Substance abuse History of steroid therapy Diabetes Injury of head and neck History of IBS Gastric reflux Neuropathy delivery delivered Arthritis Prolonged QT interval PCOS (polycystic ovarian syndrome) Factor V Leiden Anxiety Depression Pulmonary embolism DVT (deep venous thrombosis) TIA (transient ischemic attack) Ovarian cyst Home Medications ?Medication ?Instructions ?Recorded ?Last Taken ?Type zolpidem 10 mg tablet 10 mg PO QHS PRN sleep 06/08/24 10/20/24 History blood-glucose,induction heat treater,cont #1 ea 06/09/24 Unknown Rx (Dexcom G7 Poundmaster) meclizine 25 mg tablet 25 mg PO BID PRN motion sickness 06/16/24 Unknown Rx #30 tabs aripiprazole 10 mg tablet 20 mg PO QDAY 07/06/24 10/21/24 History blood-glucose transmitter (Dexcom #1 ea 07/09/24 Unknown Rx G6 Transmitter device) atogepant 60 mg tablet (Qulipta) 60 mg PO DAILY 07/14/24 10/21/24 History lamotrigine 200 mg tablet 200 mg PO BID 07/14/24 10/21/24 History diphenhydramine HCl 12.5 mg/5 mL 25 mg PO 4X/DAY PRN PRN allergies 09/13/24 Unknown History oral liquid (M-Dryl) epinephrine 0.3 mg/0.3 mL 0.3 mg (0.3 mL) IM Q5-15M PRN 10/05/24 Unknown Rx injection, auto-injector (EpiPen anaphylaxis #2 ea 2-Scout) hyoscyamine sulfate 0.125 mg tablet 0.125 mg PO BID-QID PRN dyspepsia 10/09/24 Unknown Rx #60 tabs linaclotide 290 mcg capsule 290 mcg PO QDAY #90 caps 10/13/24 10/21/24 Rx (Linzess) clonidine HCl 0.1 mg tablet 0.1 mg PO TID 10/21/24 10/21/24 History drospirenone (contraceptive) 4 mg 1 tab PO DAILY 10/21/24 10/20/24 History (28) tablet (Slynd) erenumab-aooe 70 mg/mL 70 mg subcut QMONTH 10/21/24 10/12/24 History subcutaneous auto-injector (Aimovig Autoinjector) hydroxyzine HCl 50 mg tablet 100 mg PO Q8H PRN nausea and 10/21/24 10/21/24 History vomiting lasmiditan 100 mg tablet (Reyvow) 100 mg PO PRN MIGRAINE 10/21/24 10/14/24 History famotidine 20 mg tablet 20 mg PO QHS #30 tabs 11/03/24 Unknown Rx pantoprazole 40 mg tablet,delayed 40 mg PO QDAY #90 tabs 11/10/24 Unknown Rx release albuterol sulfate 90 mcg/actuation 2 puff inhalation Q6H PRN 11/19/24 Unknown Rx aerosol inhaler shortness of breath or wheezing #8.5 grams ibuprofen 800 mg tablet 800 mg PO Q8H PRN pain #30 tabs 11/19/24 Unknown Rx blood sugar diagnostic (OneTouch #100 ea 12/02/24 Unknown Rx Verio test strips) cetirizine 10 mg tablet 10 mg PO DAILY PRN allergy 12/02/24 Unknown Rx symptoms #90 tabs docusate sodium 100 mg capsule 100 mg PO DAILY #90 caps 12/02/24 Unknown Rx (Colace) lancets 30 gauge (OneTouch #200 ea 12/02/24 Unknown Rx UltraSoft 2 Lancet) acetaminophen 500 mg tablet 1,000 mg (2 x 500 mg) PO Q8 PRN 12/08/24 Unknown Rx (Tylenol Extra Strength) fever or pain #60 tabs gabapentin 400 mg capsule 400 mg PO TID #90 caps 12/08/24 Unknown Rx lidocaine 5 % topical patch 1 patch topical QDAY PRN pain #30 12/08/24 Unknown Rx ea blood-glucose sensor (Dexcom G7 #1 ea 12/09/24 Unknown Rx Sensor device) sumatriptan succinate 100 mg tablet See Rx Instructions PO .COMPLEX 12/09/24 Unknown Rx #12 tabs promethazine 25 mg rectal 25 mg PA Q6H PRN PRN for 12/10/24 Unknown Rx suppository (Promethegan) nausea/vomiting #12 supp dulaglutide 1.5 mg/0.5 mL 1.5 mg subcut FR 12/11/24 12/04/24 History subcutaneous pen injector (Trulicity) sumatriptan succinate 6 mg/0.5 mL 6 mg subcut Q12H PRN MIGRAINE 12/11/24 Unknown History subcutaneous pen injector Allergy/AdvReac Type Severity Reaction Status Date / Time bee venom protein (honey Allergy Severe Anaphylaxis Verified 12/11/24 12:57 bee) (bee sting) ziprasidone (From Geodon) Allergy Severe facial Verified 12/11/24 12:57 swelling adhesive tape Allergy Mild Rash Verified 12/11/24 12:57 latex Allergy Mild Rash Verified 12/11/24 12:57 Iodinated Contrast Media Allergy Hives Verified 12/11/24 12:57 nitrofurantoin (From Allergy Other Verified 12/11/24 12:57 Macrobid) ondansetron (From Zofran) Allergy Hives Verified 12/11/24 12:57 propranolol Allergy Angioedema Verified 12/11/24 12:57 dihydroergotamine AdvReac Severe Chest Verified 12/11/24 12:57 tightness Family History Other Autoimmune disorder Bleeding disorder Breast cancer CVA (cerebral vascular accident) Colon cancer Diabetes Heart disease Hypertension Myocardial infarction Ovarian cancer Thyroid disorder Surgical History (Updated 12/11/24 @ 13:16 by Justine Rbuy) History of vascular access device Port-A-Cath in place H/O hernia repair H/O wisdom tooth extraction H/O oophorectomy Hx of cholecystectomy H/O tubal ligation Social History adopted: No household members: children and none number of children: 2 current occupational status: unemployed pets and animals: No sexually active: No Smoking Status: Never smoker alcohol intake: never substance use type: does not use caffeine: No frequency: 3-4 times per week do you feel safe at home: Yes Audit: Pertinent Findings Pertinent Findings EKG Perinent findings: October 25, 2024. Sinus tachycardia [address] and T wave abnormality. September 14, 2024. Normal sinus rhythm. November 01, 2023. Sinus tachycardia 120 bpm. Nonspecific T wave abnormality. August 24, 2022. Sinus tachycardia at 137 bpm. Recommendation Anesthesia Recommendation Anesthesia recommendation: OPTIMIZED for anesthesia
[2024-12-18] VITALS (10 sets, daily range): BP systolic 110–135; BP diastolic 51–95; PULSE 99–120; RESP 16; TEMP 36.1–36.7; O2SAT 94–103; BMI 39.0
--- NOTE | 2024-12-18 10:59 | PCM.PRE.AN2 ---
ASA Classification* ASA Classification ASA Classification: 3 Assessment & Plan Anesthesia* Anesthesia Assessment Anesthesia Assessment: Discussed sedation and/or anesthesia options, risks, benefits, and alternatives with patient/parents/legal guardian/POA. Questions invited. The patient/parents/legal guardian/POA seems to understand and agrees to proceed with anesthesia plan. Reviewed the physical assessment, medical history, allergy history and patient home medications list prior to surgery/procedure/anesthetic and documented any changes. Performed airway and anesthesia risk assessments. Anesthesia Type Anesthesia Type: MAC Anesthesia Focused Assessment* Airway Assessment Mouth opens: >3 cm Mallampati Score: II Focused Labs Anesthesia Preop lab: CBC WBC 5.8 K/mm3 (4.4-11.0) 10/25/24 21:50 10/25/24 RBC 4.21 M/mm3 (4.2-5.4) 10/25/24 21:50 10/25/24 Hgb 11.6 g/dL (12.0-15.0) L 10/25/24 21:50 10/25/24 Hct 33.9 % (37-47) L 10/25/24 21:50 10/25/24 Plt Count 278 K/mm3 (150-450) 10/25/24 21:50 10/25/24 CHEMISTRY Potassium 3.5 mmol/L (3.3-5.1) 10/25/24 21:50 10/25/24 Sodium 139 mmol/L (133-145) 10/25/24 21:50 10/25/24 BUN 16 mg/dL (4-19) 10/25/24 21:50 10/25/24 Creatinine 0.72 mg/dL (0.70-1.20) 10/25/24 21:50 10/25/24 Glucose 168 mg/dL (70-99) H 10/25/24 21:50 10/25/24 POC Glucose 103 mg/dL (74-106) 09/14/24 05:56 09/14/24 TSH 0.68 uIU/mL (0.358-3.74) 11/11/19 00:40 11/11/19 COAG PT 12.3 SECONDS (11.7-14.9) 09/18/20 01:50 09/18/20 Urine Test Negative Negative 08/06/20 11:43 08/06/20 Pre-Assessment Diagnosis/Proposed Procedure Planned Operative Procedure(s): INSERTION VASCULA PORT LEFT Anesthesia History Anesthesia History - psychologist engineering: Anesthesia History - psychologist engineering Hx Hospitalization Yes: INFECTED VASCULAR PORT 12/11/24 13:05 09/2024 Any Problems With Anesthesia Yes: EMOTIONAL AND CRYING/ 12/11/24 13:05 PONV Cholinesterase deficiency No 12/11/24 13:05 You/Your Family Experience No 12/11/24 13:05 fever (hyperthermia) with Relationship Recent Exposure to Contagious No 09/28/24 10:01 Disease Does patient have nerve No 12/11/24 13:05 stimulator Patient instructed to have device shut off --Does patient have Pacemaker or ICD? When Was Last Pacemaker Check QUESTION #4 FULL TEXT: You/Your Family Experience fever (hyperthermia) with Anesthesia Last Oral Intake Last Oral intake: Last Oral Intake NPO since Meds taken in AM with sips of water? Meds patient instructed to take am of surgery PONV PONV - psychologist engineering: PONV - psychologist engineering Female Yes 12/11/24 13:05 HX of Motion Sickness Yes 12/11/24 13:05 HX of N/V After Surgery Yes 12/11/24 13:05 Non-Smoker Yes 12/11/24 13:05 Duration of Surgery greater No 12/11/24 13:05 than 60 minutes Number of Risk Factors 4 12/11/24 13:05 PONV Score Severe Risk 12/11/24 13:05 Height & Weight Height & Weight: Anesthesia: Height & Weight Height 5 ft 1 in 11/19/24 12:19 Respiratory Assessment Respiratory Assessment - psychologist engineering: Respiratory Tract Infection Hx - psychologist engineering Hx Respiratory Tract Infection No 12/11/24 13:05 STOP Sleep Apnea STOP Sleep Apnea - psychologist engineering: STOP Sleep Apnea - psychologist engineering Hx Hypertension Yes: NO MEDS FOR 2-3 YRS 12/11/24 13:05 Hx Sleep Apnea No 12/11/24 13:05 CPAP BIPAP Do you snore loudly (louder No 12/11/24 13:05 than talking or can be heard Do you often feel tired/ Yes 12/11/24 13:05 fatigued/ sleepy during daytime? Has anyone observed you stop No 12/11/24 13:05 breathing during sleep? STOP Results Positive 12/11/24 13:05 QUESTION #5 FULL TEXT : Do you snore loudly (louder than talking or can be heard through closed doors)? Tobacco Use History Tobacco Use History - psychologist engineering: Tobacco Use History - psychologist engineering Tobacco Use Smoking Status Never smoker 12/11/24 13:05 Hx Tobacco Use No 12/11/24 13:05 Years Smoking Packs Smoked per Day Smoking Cessation Date was within the last 15 years Hx Smoking Cessation Date Hx Smoking Cessation Counseling Hematologic Medial History Hematologic Hx - psychologist engineering: Hematologic Medical Hx - home support worker Hx of Blood Transfusion No 12/11/24 13:05 Hx of Transfusion in last 3 No 12/11/24 13:05 Months Date of Last Transfusion (if within last 3 months) Ever experience any problems No 12/11/24 13:05 with transfusion(s)? Specify any problems Hx of Preganancy in last 3 No 12/11/24 13:05 Months Nurse Filling Out Transfusion DSCHRIBER 12/11/24 13:05 & Questions: Date: 12/11/24 12/11/24 13:05 Time: 13:07 12/11/24 13:05 Patient unable to answer at this time (ie. confused, unrespo /Reproduction History /Reproductive History - psychologist engineering: /Reproductive Hx- psychologist engineering Hx Now No 12/11/24 13:05 Gestational Age (in weeks): EDC: Hx Hx Para Hx Section SAB No 12/11/24 13:05 Active Medications Active Medications: Current Medications Generic Name Dose Route Start Last Admin Trade Name Freq PRN Reason Stop Dose Admin Cefazolin Sodium 2 gm/ Sodium 110 mls @ 150 mls/hr 12/18/24 12:00 Chloride IV 12/18/24 12:43 INTRAOP ONE Lactated Ringer's 1,000 mls @ 15 mls/hr 12/18/24 10:45 IV .Q48H NIGEL PFSH Medical History Easy bruising Dietary restriction Implantable loop recorder present Wears glasses Anxiety MRSA infection Substance abuse History of steroid therapy Diabetes Injury of head and neck History of IBS Gastric reflux Neuropathy delivery delivered Arthritis Prolonged QT interval PCOS (polycystic ovarian syndrome) Factor V Leiden Anxiety Depression Pulmonary embolism DVT (deep venous thrombosis) TIA (transient ischemic attack) Ovarian cyst Home Medications ?Medication ?Instructions ?Recorded ?Last Taken ?Type blood-glucose,superintendent operations division,cont #1 ea 06/09/24 Unknown Rx (Dexcom G7 Truck Crane Operator Helper) meclizine 25 mg tablet 25 mg PO BID PRN motion sickness 06/16/24 Unknown Rx #30 tabs aripiprazole 10 mg tablet 20 mg PO QDAY 07/06/24 10/21/24 History blood-glucose transmitter (Dexcom #1 ea 07/09/24 Unknown Rx G6 Transmitter device) atogepant 60 mg tablet (Qulipta) 60 mg PO DAILY 07/14/24 10/21/24 History lamotrigine 200 mg tablet 200 mg PO BID 07/14/24 10/21/24 History diphenhydramine HCl 12.5 mg/5 mL 25 mg PO 4X/DAY PRN PRN allergies 09/13/24 Unknown History oral liquid (M-Dryl) epinephrine 0.3 mg/0.3 mL 0.3 mg (0.3 mL) IM Q5-15M PRN 10/05/24 Unknown Rx injection, auto-injector (EpiPen anaphylaxis #2 ea 2-Scout) hyoscyamine sulfate 0.125 mg tablet 0.125 mg PO BID-QID PRN dyspepsia 10/09/24 Unknown Rx #60 tabs linaclotide 290 mcg capsule 290 mcg PO QDAY #90 caps 10/13/24 10/21/24 Rx (Linzess) clonidine HCl 0.1 mg tablet 0.1 mg PO TID 10/21/24 10/21/24 History drospirenone (contraceptive) 4 mg 1 tab PO DAILY 10/21/24 10/20/24 History (28) tablet (Slynd) erenumab-aooe 70 mg/mL 70 mg subcut QMONTH 10/21/24 10/12/24 History subcutaneous auto-injector (Aimovig Autoinjector) hydroxyzine HCl 50 mg tablet 100 mg PO Q8H PRN nausea and 10/21/24 12/18/24 History vomiting lasmiditan 100 mg tablet (Reyvow) 100 mg PO PRN MIGRAINE 10/21/24 10/14/24 History famotidine 20 mg tablet 20 mg PO QHS #30 tabs 11/03/24 Unknown Rx pantoprazole 40 mg tablet,delayed 40 mg PO QDAY #90 tabs 11/10/24 Unknown Rx release albuterol sulfate 90 mcg/actuation 2 puff inhalation Q6H PRN 11/19/24 Unknown Rx aerosol inhaler shortness of breath or wheezing #8.5 grams ibuprofen 800 mg tablet 800 mg PO Q8H PRN pain #30 tabs 11/19/24 Unknown Rx blood sugar diagnostic (OneTouch #100 ea 12/02/24 Unknown Rx Verio test strips) cetirizine 10 mg tablet 10 mg PO DAILY PRN allergy 12/02/24 Unknown Rx symptoms #90 tabs docusate sodium 100 mg capsule 100 mg PO DAILY #90 caps 12/02/24 Unknown Rx (Colace) lancets 30 gauge (OneTouch #200 ea 12/02/24 Unknown Rx UltraSoft 2 Lancet) acetaminophen 500 mg tablet 1,000 mg (2 x 500 mg) PO Q8 PRN 12/08/24 Unknown Rx (Tylenol Extra Strength) fever or pain #60 tabs gabapentin 400 mg capsule 400 mg PO TID #90 caps 12/08/24 Unknown Rx lidocaine 5 % topical patch 1 patch topical QDAY PRN pain #30 12/08/24 Unknown Rx ea blood-glucose sensor (Dexcom G7 #1 ea 12/09/24 Unknown Rx Sensor device) sumatriptan succinate 100 mg tablet See Rx Instructions PO .COMPLEX 12/09/24 Unknown Rx #12 tabs promethazine 25 mg rectal 25 mg SD Q6H PRN PRN for 12/10/24 Unknown Rx suppository (Promethegan) nausea/vomiting #12 supp dulaglutide 1.5 mg/0.5 mL 1.5 mg subcut FR 12/11/24 12/04/24 History subcutaneous pen injector (Trulicity) sumatriptan succinate 6 mg/0.5 mL 6 mg subcut Q12H PRN MIGRAINE 12/11/24 Unknown History subcutaneous pen injector zolpidem 12.5 mg tablet,extended 12.5 mg PO QHS PRN insomnia 12/18/24 Unknown History release,multiphase (Ambien CR) Allergy/AdvReac Type Severity Reaction Status Date / Time bee venom protein (honey Allergy Severe Anaphylaxis Verified 12/18/24 10:39 bee) (bee sting) ziprasidone (From Geodon) Allergy Severe facial Verified 12/18/24 10:39 swelling adhesive tape Allergy Mild Rash Verified 12/18/24 10:39 latex Allergy Mild Rash Verified 12/18/24 10:39 Iodinated Contrast Media Allergy Hives Verified 12/18/24 10:39 nitrofurantoin (From Allergy Other Verified 12/18/24 10:39 Macrobid) ondansetron (From Zofran) Allergy Hives Verified 12/18/24 10:39 propranolol Allergy Angioedema Verified 12/18/24 10:39 dihydroergotamine AdvReac Severe Chest Verified 12/18/24 10:39 tightness Family History Other Autoimmune disorder Bleeding disorder Breast cancer CVA (cerebral vascular accident) Colon cancer Diabetes Heart disease Hypertension Myocardial infarction Ovarian cancer Thyroid disorder Surgical History History of vascular access device Port-A-Cath in place H/O hernia repair H/O wisdom tooth extraction H/O oophorectomy Hx of cholecystectomy H/O tubal ligation Social History adopted: No household members: children and none number of children: 2 current occupational status: unemployed pets and animals: No sexually active: No Smoking Status: Never smoker alcohol intake: never substance use type: does not use caffeine: No frequency: 3-4 times per week do you feel safe at home: Yes Review of Systems (Anesthesia) ROS Narrative System reviewed and no additional complaints, except as documented.
[2024-12-18] MEDS: Lactated Ringers 1,000 ML 15 ML IV (11:11)
[2024-12-18 11:26] LABS: Bedside Glucose 197 mg/dL (74-106)
--- NOTE | 2024-12-18 12:01 | PCM.HP.STD ---
HPI - General General Date of Admission: 12/18/24 Date of Service: 12/18/24 Chief Complaint: need for medport HPI Narrative ERIN TORRES, is a 34 F who presents for elective medport insertion [facility] Medical History Easy bruising Dietary restriction Implantable loop recorder present Wears glasses Anxiety MRSA infection Substance abuse History of steroid therapy Diabetes Injury of head and neck History of IBS Gastric reflux Neuropathy delivery delivered Arthritis Prolonged QT interval PCOS (polycystic ovarian syndrome) Factor V Leiden Anxiety Depression Pulmonary embolism DVT (deep venous thrombosis) TIA (transient ischemic attack) Ovarian cyst Home Medications ?Medication ?Instructions ?Recorded ?Last Taken ?Type blood-glucose,sustainable products 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,cont #1 ea 06/09/24 Unknown Rx (Dexcom G7 Tamping Machine Operator Road Forms) meclizine 25 mg tablet 25 mg PO BID PRN motion sickness 06/16/24 Unknown Rx #30 tabs aripiprazole 10 mg tablet 20 mg PO QDAY 07/06/24 10/21/24 History blood-glucose transmitter (Dexcom #1 ea 07/09/24 Unknown Rx G6 Transmitter device) atogepant 60 mg tablet (Qulipta) 60 mg PO DAILY 07/14/24 10/21/24 History lamotrigine 200 mg tablet 200 mg PO BID 07/14/24 10/21/24 History diphenhydramine HCl 12.5 mg/5 mL 25 mg PO 4X/DAY PRN PRN allergies 09/13/24 Unknown History oral liquid (M-Dryl) epinephrine 0.3 mg/0.3 mL 0.3 mg (0.3 mL) IM Q5-15M PRN 10/05/24 Unknown Rx injection, auto-injector (EpiPen anaphylaxis #2 ea 2-Scout) hyoscyamine sulfate 0.125 mg tablet 0.125 mg PO BID-QID PRN dyspepsia 10/09/24 Unknown Rx #60 tabs linaclotide 290 mcg capsule 290 mcg PO QDAY #90 caps 10/13/24 10/21/24 Rx (Linzess) clonidine HCl 0.1 mg tablet 0.1 mg PO TID 10/21/24 10/21/24 History drospirenone (contraceptive) 4 mg 1 tab PO DAILY 10/21/24 10/20/24 History (28) tablet (Slynd) erenumab-aooe 70 mg/mL 70 mg subcut QMONTH 10/21/24 10/12/24 History subcutaneous auto-injector (Aimovig Autoinjector) hydroxyzine HCl 50 mg tablet 100 mg PO Q8H PRN nausea and 10/21/24 12/18/24 History vomiting lasmiditan 100 mg tablet (Reyvow) 100 mg PO PRN MIGRAINE 10/21/24 10/14/24 History famotidine 20 mg tablet 20 mg PO QHS #30 tabs 11/03/24 Unknown Rx pantoprazole 40 mg tablet,delayed 40 mg PO QDAY #90 tabs 11/10/24 Unknown Rx release albuterol sulfate 90 mcg/actuation 2 puff inhalation Q6H PRN 11/19/24 Unknown Rx aerosol inhaler shortness of breath or wheezing #8.5 grams ibuprofen 800 mg tablet 800 mg PO Q8H PRN pain #30 tabs 11/19/24 Unknown Rx blood sugar diagnostic (OneTouch #100 ea 12/02/24 Unknown Rx Verio test strips) cetirizine 10 mg tablet 10 mg PO DAILY PRN allergy 12/02/24 Unknown Rx symptoms #90 tabs docusate sodium 100 mg capsule 100 mg PO DAILY #90 caps 12/02/24 Unknown Rx (Colace) lancets 30 gauge (OneTouch #200 ea 12/02/24 Unknown Rx UltraSoft 2 Lancet) acetaminophen 500 mg tablet 1,000 mg (2 x 500 mg) PO Q8 PRN 12/08/24 Unknown Rx (Tylenol Extra Strength) fever or pain #60 tabs gabapentin 400 mg capsule 400 mg PO TID #90 caps 12/08/24 Unknown Rx lidocaine 5 % topical patch 1 patch topical QDAY PRN pain #30 12/08/24 Unknown Rx ea blood-glucose sensor (Coco Controllercom G7 #1 ea 12/09/24 Unknown Rx Sensor device) sumatriptan succinate 100 mg tablet See Rx Instructions PO .COMPLEX 12/09/24 Unknown Rx #12 tabs promethazine 25 mg rectal 25 mg [place] Q6H PRN PRN for 12/10/24 Unknown Rx suppository (Promethegan) nausea/vomiting #12 supp dulaglutide 1.5 mg/0.5 mL 1.5 mg subcut FR 12/11/24 12/04/24 History subcutaneous pen injector (Trulicity) sumatriptan succinate 6 mg/0.5 mL 6 mg subcut Q12H PRN MIGRAINE 12/11/24 Unknown History subcutaneous pen injector zolpidem 12.5 mg tablet,extended 12.5 mg PO QHS PRN insomnia 12/18/24 Unknown History release,multiphase (Ambien CR) Allergy/AdvReac Type Severity Reaction Status Date / Time bee venom protein (honey Allergy Severe Anaphylaxis Verified 12/18/24 10:39 bee) (bee sting) ziprasidone (From Geodon) Allergy Severe facial Verified 12/18/24 10:39 swelling adhesive tape Allergy Mild Rash Verified 12/18/24 10:39 latex Allergy Mild Rash Verified 12/18/24 10:39 Iodinated Contrast Media Allergy Hives Verified 12/18/24 10:39 nitrofurantoin (From Allergy Other Verified 12/18/24 10:39 Macrobid) ondansetron (From Zofran) Allergy Hives Verified 12/18/24 10:39 propranolol Allergy Angioedema Verified 12/18/24 10:39 dihydroergotamine AdvReac Severe Chest Verified 12/18/24 10:39 tightness Family History Other Autoimmune disorder Bleeding disorder Breast cancer CVA (cerebral vascular accident) Colon cancer Diabetes Heart disease Hypertension Myocardial infarction Ovarian cancer Thyroid disorder Surgical History History of vascular access device Port-A-Cath in place H/O hernia repair H/O wisdom tooth extraction H/O oophorectomy Hx of cholecystectomy H/O tubal ligation Social History adopted: No household members: children and none number of children: 2 current occupational status: unemployed pets and animals: No sexually active: No Smoking Status: Never smoker alcohol intake: never substance use type: does not use caffeine: No frequency: 3-4 times per week do you feel safe at home: Yes Vital Signs Vital Signs Vital Signs: 12/18/24 10:43 12/18/24 10:43 Temperature 98.1 F Temperature Source Temporal Pulse Rate 120 H Respiratory Rate 16 Respiratory Pattern Normal Blood Pressure 124/78 H Blood Pressure Mean 93 Blood Pressure Source Monitor Blood Pressure Position Semi-Fowlers Blood Pressure Location Left Arm Pulse Ox 98 Oxygen Delivery Method Room Air Weight Weight: 206 lb 9.17 oz Body Mass Index (BMI) 39.0 Results Lab / Micro Data Labs: Laboratory Results - last 24 hr 12/18/24 10:49: POC Glucose 197 H Assessment & Plan Assessment/Plan (1) Encounter for insertion of venous access port: PLAN: Plan left port placement today Charges/Coding Visit Charges Inpatient E&M: 39712 Subs Hosp L2
[2024-12-18] MEDS: Cefazolin 2 GM in 0.9% Normal Saline (100mL Bag) 100 ML IV (12:10)
[2024-12-18] MEDS: Lidocaine 1% /Epi 1:100 (20ml) 20 ML Vial (12:39)
[2024-12-18] MEDS: Bupivacaine 0.5% PF 10 ML VIAL (12:39)
--- NOTE | 2024-12-18 13:16 | DCINST_ITS ---
Discharge Instructions Diet Discharge Diet: Light diet - advance as tolerated Activity Discharge Activity: Return to Normal Activity May shower in (days): 2 Ice area for (Minutes): 30 Dressing / Incision Call your doctor if your incision/area has: Continuous Slow Oozing, Sudden Increased Bleeding, Increased Pain/ Swelling, Increased Redness, Foul Smelling Discharge and Swelling at the incision site Call your doctor if you observe: Fever of 101 or Higher Follow Up Care Please Follow Up With: Artur Shafer MD When: 2 weeks. Please call to schedule appointment. Please call office if any questions or concerns arise Test Results: Test results from this visit will be discussed in further detail at your follow- up appointment, if applicable. Discharge Plan Admission Primary Reason for Your Visit: Mediport placement Attending Provider: Artur Shafer Primary Care Provider: Erika Ware Instructions Print Language: Turkmen Discharge Orders/Prescriptions Prescriptions: New tramadol 50 mg tablet 50 mg PO Q8H PRN (Reason: pain) 3 Days Qty: 7 0RF Continued aripiprazole 10 mg tablet 20 mg PO QDAY Rx Instructions: WITH 2MG TOTAL DAILY DOSE 12MG albuterol sulfate 90 mcg/actuation HFA aerosol inhaler 2 puff inhalation Q6H PRN (Reason: shortness of breath or wheezing) Qty: 8.5 0RF ibuprofen 800 mg tablet 800 mg PO Q8H PRN (Reason: pain) Qty: 30 0RF lamotrigine 200 mg tablet 200 mg PO BID Qulipta 60 mg tablet 60 mg PO DAILY clonidine HCl 0.1 mg tablet 0.1 mg PO TID hydroxyzine HCl 50 mg tablet 100 mg PO Q8H PRN (Reason: nausea and vomiting) Aimovig Autoinjector 70 mg/mL auto-injector 70 mg SUBCUT QMONTH Patient Comments: [NO ORIGINAL SIG] Slynd 4 mg (28) tablet 1 tab PO DAILY Reyvow 100 mg tablet 100 mg PO PRN sumatriptan succinate 6 mg/0.5 mL pen injector 6 mg SUBCUT Q12H PRN (Reason: MIGRAINE) Trulicity 1.5 mg/0.5 mL pen injector 1.5 mg subcut FR zolpidem [Ambien CR] 12.5 mg tablet,ext release multiphase 12.5 mg PO QHS PRN (Reason: insomnia) diphenhydramine HCl [M-Dryl] 12.5 mg/5 mL liquid 25 mg PO 4X/DAY PRN PRN (Reason: allergies) (DME) Dexcom G7 Tax Auditor Misc See Rx Instructions .Route Qty: 1 5RF Rx Instructions: As directed meclizine 25 mg tablet 25 mg PO BID PRN (Reason: motion sickness) Qty: 30 1RF (DME) Dexcom G6 Transmitter Device See Rx Instructions .Route Qty: 1 5RF Rx Instructions: As directed epinephrine [EpiPen 2-Scout] 0.3 mg/0.3 mL auto-injector 0.3 mg IM Q5-15M PRN (Reason: anaphylaxis) Qty: 2 1RF Rx Instructions: do not exceed 3 doses per episode hyoscyamine sulfate 0.125 mg tablet 0.125 mg PO BID-QID PRN (Reason: dyspepsia) Qty: 60 1RF Linzess 290 mcg capsule 290 mcg PO QDAY Qty: 90 0RF famotidine 20 mg tablet 20 mg PO QHS Qty: 30 1RF pantoprazole 40 mg tablet,delayed release (DR/EC) 40 mg PO QDAY Qty: 90 0RF cetirizine 10 mg tablet 10 mg PO DAILY PRN (Reason: allergy symptoms) Qty: 90 1RF docusate sodium [Colace] 100 mg capsule 100 mg PO DAILY Qty: 90 0RF (DME) lancets [OneTouch UltraSoft 2 Lancet] 30 gauge misc See Rx Instructions .Route Qty: 200 0RF Rx Instructions: Use once daily to check blood glucose level (DME) OneTouch Verio test strips Strip See Rx Instructions .Route Qty: 100 0RF Rx Instructions: Use one strip once per day to check blood glucose level acetaminophen [Tylenol Extra Strength] 500 mg tablet 1,000 mg PO Q8 PRN (Reason: fever or pain) Qty: 60 0RF gabapentin 400 mg capsule 400 mg PO TID Qty: 90 2RF lidocaine 5 % adhesive patch,medicated 1 patch topical QDAY PRN (Reason: pain) Qty: 30 2RF Rx Instructions: leave on most painful area for up to 12 hrs sumatriptan succinate 100 mg tablet See Rx Instructions PO .COMPLEX Qty: 12 1RF Rx Instructions: take 1 tab at onset of headache; if no relief, may repeat 1 tab after at least 2 hrs; max = 2 tabs/24 hrs PO (DME) Dexcom G7 Sensor Device See Rx Instructions .Route Qty: 1 5RF Rx Instructions: As directed promethazine [Promethegan] 25 mg suppository 25 mg [place] Q6H PRN PRN (Reason: for nausea/vomiting) Qty: 12 0RF Referrals / Follow Up: Erika Ware MD [Primary Care Provider] - Disposition Disposition (needs filled in before D/C Order can be placed): Home, Self Care
--- NOTE | 2024-12-18 13:22 | PCM.POST.ANE ---
Anesthesia: Postop Eval I Current Vital Signs Temperature: 97 F Pulse Rate: 105 Blood Pressure: 122/77 Respiratory Rate: 16 Pulse Ox: 94 Assessment Airway patent: Yes Spontaneous unlabored respirations: Yes nausea: No Vomiting: No Anesthesia Complication: No Fluid Hydration Crystalloid volume administer (ml): 1,000 Total IV fluid infused: 1,000 Progress Note Anesthesia document: Postop Eval 1 completed: Yes
--- NOTE | 2024-12-18 13:35 | RAD_ITS ---
PROCEDURE: CXR FOR LINE PLACEMENT 12/18/2024 REASON FOR EXAM: NEW LEFT-SIDED PORT TECHNIQUE: Single-view AP portable upright chest. COMPARISON: Chest x-ray of 09/10/2024. RAD/CXR for Line Placement IMPRESSION: Examination limited by hypoinflation. Interval removal of the right-sided central venous catheter and placement of a left-sided subclavian central venous catheter with port. The tip projects near the expected junction of the SVC and right atrium. Mild left basilar atelectasis is seen. No pulmonary edema is noted. No pleural effusion or pneumothorax is evident. The cardiomediastinal silhouette is within the normal range, and unchanged. Reading Location: [id number]
--- NOTE | 2024-12-18 13:37 | POSTOPAN2_ITS ---
Anesthesia Postop Eval I Sum Postop Eval Completion status Anesthesia document: Postop Eval 1 completed: Yes Anesthesia Postop Eval I Summary Anesthesia Postop Eval I Summary: Anesthesia Postop Eval I: Assessment Summary Airway patent Yes 12/18/24 13:22 EQUINE SCIENCE [email or web address] Spontaneous unlabored Yes 12/18/24 13:22 EQUINE SCIENCE [email or web address] respirations Mental status nausea No 12/18/24 13:22 EQUINE SCIENCE [email or web address] Vomiting No 12/18/24 13:22 EQUINE SCIENCE [email or web address] Anesthesia Postop Eval I: Fluid Summary Crystalloid volume administer 1,000 12/18/24 13:22 EQUINE SCIENCE INSTRUCTOR.[email or web address] (ml) Colloids volume administered ( ml) Blood Product volume administered (ml) Total IV fluid infused 1,000 12/18/24 13:22 EQUINE SCIENCE [email or web address] Anesthesia Postop Eval I: Summary Notes Anesthesia Complication No 12/18/24 13:22 EQUINE SCIENCE [email or web address] Anesthesia Complication Comment: Post-operative progress note Anesthesia: Postop Eval II Evaluation Mental status: Awake Pain Level: 0 nausea: No Vomiting: No
--- NOTE | 2024-12-18 13:37 | PCM.POSTANE2 ---
Anesthesia Postop Eval I Sum Postop Eval Completion status Anesthesia document: Postop Eval 1 completed: Yes Anesthesia Postop Eval I Summary Anesthesia Postop Eval I Summary: Anesthesia Postop Eval I: Assessment Summary Airway patent Yes 12/18/24 13:22 CLIENT SUPPORT [email or web address] Spontaneous unlabored Yes 12/18/24 13:22 CLIENT SUPPORT [email or web address] respirations Mental status nausea No 12/18/24 13:22 CLIENT SUPPORT [email or web address] Vomiting No 12/18/24 13:22 CLIENT SUPPORT [email or web address] Anesthesia Postop Eval I: Fluid Summary Crystalloid volume administer 1,000 12/18/24 13:22 CLIENT SUPPORT [email or web address] (ml) Colloids volume administered ( ml) Blood Product volume administered (ml) Total IV fluid infused 1,000 12/18/24 13:22 CLIENT SUPPORT [email or web address] Anesthesia Postop Eval I: Summary Notes Anesthesia Complication No 12/18/24 13:22 CLIENT SUPPORT [email or web address] Anesthesia Complication Comment: Post-operative progress note Anesthesia: Postop Eval II Evaluation Mental status: Awake Pain Level: 0 nausea: No Vomiting: No
--- NOTE | 2024-12-18 14:12 | PCM.OPRPT ---
Problems Associated Problem List Diagnoses (1) Encounter for insertion of venous access port: Procedures Cardiovascular CF Procedures [id number]: [id number] Insert tunneled cv cath Operative Report (Standard) Operative Information Date of Procedure: 12/18/24 Pre-Operative Diagnosis: Need for central venous access Post-Operative Diagnosis: Same Surgery/Procedure Performed: Left internal jugular Mediport placement with C arm can solderer: No Type of Anesthesia: Local and MAC RN Documented Start/Stop Times: Operation Date: 12/18/24 12:00 Case Time Into Pre-Op 12/18/24 10:32 Out of Pre-Op 12/18/24 12:05 Anesthesia Start 12/18/24 12:10 Into Room 12/18/24 12:10 Procedure End 12/18/24 13:04 Anesthesia End 12/18/24 13:12 Out of Room 12/18/24 13:12 Into Recovery 12/18/24 13:15 Out of Recovery 12/18/24 13:51 Into Phase II Recovery 12/18/24 13:52 Procedure Start Time: 12:10 Procedure Stop Time: 13:04 Select all DRAINS/GRAFTS/IMPLANTS that apply: Implanted device Implanted device details: 8 [place] PowerPort Special Medications: Ancef preop IV Estimated Blood Loss: 5 mL Specimen collected: No Description of surgery: The patient is a 34-year-old female known to me for multiple previous ports. She uses a Mediport monthly for migraine headache injections/infusions. She also has a history of multiple ports which have become infected. She is infection free and wishes to have another port placed as attempts of peripheral IVs for these infusions have been very difficult for various reasons. So she presents today to have a new port placed. She was brought to the operating room today following informed consent. Preoperative antibiotics were given and a timeout was performed. She is placed supine on the operative table with arms outstretched and arm boards. MAC anesthesia was induced. Once adequately sedated her arms were comfortably tucked at her side. She was placed in mild Trendelenburg positioning. The left chest and neck were prepped and draped in the usual manner. Ultrasound was utilized to identify the left subclavian vein. Local anesthetic was then injected. Using the supplied needle and syringe, the left internal jugular vein was accessed on the first pass. The blood return was a dark red, venous appearing and nonpulsatile blood return. The guidewire was then advanced. Mild resistance was noted. C arm was then brought onto the field and it was noted that the guidewire was going across to the contralateral subclavian vein. This was then withdrawn and readvanced under live fluoroscopy into the vena cava. The guidewire was then affixed to the drapes. A marking pen was then used to indicate the site of the planned incision. Local anesthetic was then infiltrated. #15 blade was then used to make the skin incision. Bovie electrocautery was then used dissect down through the subcutaneous tissue. A subcutaneous pocket was then created. #15 blade was also used to make a small skin incision at the entry point of the guidewire. The tubing was tunneled into the larger incision and up and out through the smaller incision. This was trimmed about 23 cm. This was attached to the port hub. The port hub was then affixed to the chest wall using Prolene suture x 2. The dilator and tear-away sheath were then threaded over the guidewire and advanced. This was done under fluoroscopy. The guidewire and dilator were then removed, leaving the sheath in place. The free end of the tubing was then threaded down the sheath. The sheath was then extracted while the tubing was advanced. This was performed without incident. The port was then tested using saline. It gabriele and flushed easily. C-arm was brought in to confirm good positioning of the tubing. There were no obvious kinks or bends. The port was then flushed with heparin. The wound was then closed using 3-0 Vicryl and 4-0 Vicryl. 4-0 Vicryl was used on the neck. Skin glue was then applied along with OpSite's as dressing. She was awakened anesthesia and taken recovery in good condition. Surgical Findings: See operative note Complications Complications: No Admit VTE Documentation VTE Present on Admission: No VTE Mechan Device Prophylaxis: SCD's VTE Pharm Prophylaxis ordered?: No Reason prophylaxis not ordered: Treatment Not Indicated
== END 2024-12-18 15:03 | disposition home or self-care (01) ==
LOC: SDC 10:23 → AC 10:25
PROVIDERS: PCP Internal Medicine; Referring Provider Internal Medicine; Visit Provider Surgery
PROC: (CPT 36561; principal; 2024-12-18 11:45)
DX: Z45.2 Encounter for adjustment and management of vascular access device (principal); E11.40 Type 2 diabetes mellitus with diabetic neuropathy, unspecified; G43.909 Migraine, unspecified, not intractable, without status migrainosus; K21.9 Gastro-esophageal reflux disease without esophagitis
CPT/HCPCS: 36561; 00532; 71045; 77001; 82962; C1788

== ENCOUNTER 2024-12-19 09:27 | Emergency (ER) | payer MEDICAID, SELFPAY ==
[2024-12-19 09:28] VITALS: BP 160/95; PULSE 121; RESP 18; TEMP 36.9; O2SAT 98; BMI 38.6
--- NOTE | 2024-12-19 10:08 | ED.RN ---
PT STATES SHE WAS SENT OVER FROM HER DR FOLLOWING THE PLACEMENT OF A NEW PORT. SHE WAS GIVEN TRAMADOL AND STATES THE PAIN US UNCONTROLLED. PORT PLACED FOR INFUSION D/T MIGRAINES. HX HAS FACTOR V BLOOD CLOTTING DISORDER.
--- NOTE | 2024-12-19 10:23 | RAD_ITS ---
PROCEDURE: CHEST PA AND LATERAL 12/19/2024 REASON FOR EXAM: RECENT PORT PLACEMENT YESTERDAY, PAIN TECHNIQUE: Frontal and lateral views of the chest. COMPARISON: 12/18/2024 FINDINGS: Hardware: Left chest wall port catheter and left loop recorder. Heart: The heart size is normal. Mediastinum: The mediastinal contour is unremarkable. Lungs: No focal consolidation. No pneumothorax. No pleural effusion. Bones: The bones are unremarkable. RAD/Chest PA and Lateral IMPRESSION: NO ACUTE FINDINGS. Reading Location: [facility]
[2024-12-19] MEDS: Ketorolac 30 MG/ML Syringe IM (11:01)
[2024-12-19] MEDS: HYDROcodone Bitartrate/Apap 5/325 Tablet PO (11:39)
--- NOTE | 2024-12-19 12:05 | EX.ED.DYSGE1 ---
HPI History of Present Illness Chief Complaint: Other, Pain/Inj Narrative Narrative: Patient is a 34-year-old female with past medical anxiety, chronic migraines for which she gets infusions at the end of the month, IBS, neuropathy, factor V Leiden, PCOS, anxiety, depression who presented to the emergency department chief complaint of pain. Patient states that she had a port placed yesterday as from the chronic infusions for migraines her veins are not good anymore therefore they placed this port. States that she had been rotating Tylenol ibuprofen and tried to take the tramadol that she sent home last night and then again this morning and states that this is not touching her pain therefore she called the on-call surgeon and was told that they cannot prescribe narcotics and was advised to come to the emergency department to be evaluated. [facility] Medical History Easy bruising Dietary restriction Implantable loop recorder present Wears glasses Anxiety MRSA infection Substance abuse History of steroid therapy Diabetes Injury of head and neck History of IBS Gastric reflux Neuropathy delivery delivered Arthritis Prolonged QT interval PCOS (polycystic ovarian syndrome) Factor V Leiden Anxiety Depression Pulmonary embolism DVT (deep venous thrombosis) TIA (transient ischemic attack) Ovarian cyst Home Medications ?Medication ?Instructions ?Recorded ?Last Taken ?Type blood-glucose,security screener,cont #1 ea 06/09/24 Unknown Rx (Dexcom G7 Bone Worker) meclizine 25 mg tablet 25 mg PO BID PRN motion sickness 06/16/24 Unknown Rx #30 tabs aripiprazole 10 mg tablet 20 mg PO QDAY 07/06/24 10/21/24 History blood-glucose transmitter (Dexcom #1 ea 07/09/24 Unknown Rx G6 Transmitter device) atogepant 60 mg tablet (Qulipta) 60 mg PO DAILY 07/14/24 10/21/24 History lamotrigine 200 mg tablet 200 mg PO BID 07/14/24 10/21/24 History diphenhydramine HCl 12.5 mg/5 mL 25 mg PO 4X/DAY PRN PRN allergies 09/13/24 Unknown History oral liquid (M-Dryl) epinephrine 0.3 mg/0.3 mL 0.3 mg (0.3 mL) IM Q5-15M PRN 10/05/24 Unknown Rx injection, auto-injector (EpiPen anaphylaxis #2 ea 2-Scout) hyoscyamine sulfate 0.125 mg tablet 0.125 mg PO BID-QID PRN dyspepsia 10/09/24 Unknown Rx #60 tabs linaclotide 290 mcg capsule 290 mcg PO QDAY #90 caps 10/13/24 10/21/24 Rx (Linzess) clonidine HCl 0.1 mg tablet 0.1 mg PO TID 10/21/24 10/21/24 History drospirenone (contraceptive) 4 mg 1 tab PO DAILY 10/21/24 10/20/24 History (28) tablet (Slynd) erenumab-aooe 70 mg/mL 70 mg subcut QMONTH 10/21/24 10/12/24 History subcutaneous auto-injector (Aimovig Autoinjector) hydroxyzine HCl 50 mg tablet 100 mg PO Q8H PRN nausea and 10/21/24 12/18/24 History vomiting lasmiditan 100 mg tablet (Reyvow) 100 mg PO PRN MIGRAINE 10/21/24 10/14/24 History famotidine 20 mg tablet 20 mg PO QHS #30 tabs 11/03/24 Unknown Rx pantoprazole 40 mg tablet,delayed 40 mg PO QDAY #90 tabs 11/10/24 Unknown Rx release albuterol sulfate 90 mcg/actuation 2 puff inhalation Q6H PRN 11/19/24 Unknown Rx aerosol inhaler shortness of breath or wheezing #8.5 grams ibuprofen 800 mg tablet 800 mg PO Q8H PRN pain #30 tabs 11/19/24 Unknown Rx blood sugar diagnostic (OneTouch #100 ea 12/02/24 Unknown Rx Verio test strips) cetirizine 10 mg tablet 10 mg PO DAILY PRN allergy 12/02/24 Unknown Rx symptoms #90 tabs docusate sodium 100 mg capsule 100 mg PO DAILY #90 caps 12/02/24 Unknown Rx (Colace) lancets 30 gauge (OneTouch #200 ea 12/02/24 Unknown Rx UltraSoft 2 Lancet) acetaminophen 500 mg tablet 1,000 mg (2 x 500 mg) PO Q8 PRN 12/08/24 Unknown Rx (Tylenol Extra Strength) fever or pain #60 tabs gabapentin 400 mg capsule 400 mg PO TID #90 caps 12/08/24 Unknown Rx lidocaine 5 % topical patch 1 patch topical QDAY PRN pain #30 12/08/24 Unknown Rx ea blood-glucose sensor (Dexcom G7 #1 ea 12/09/24 Unknown Rx Sensor device) sumatriptan succinate 100 mg tablet See Rx Instructions PO .COMPLEX 12/09/24 Unknown Rx #12 tabs promethazine 25 mg rectal 25 mg GA Q6H PRN PRN for 12/10/24 Unknown Rx suppository (Promethegan) nausea/vomiting #12 supp dulaglutide 1.5 mg/0.5 mL 1.5 mg subcut FR 12/11/24 12/04/24 History subcutaneous pen injector (Trulicity) sumatriptan succinate 6 mg/0.5 mL 6 mg subcut Q12H PRN MIGRAINE 12/11/24 Unknown History subcutaneous pen injector tramadol 50 mg tablet 50 mg PO Q8H PRN pain 3 days #7 12/18/24 Unknown Rx tabs zolpidem 12.5 mg tablet,extended 12.5 mg PO QHS PRN insomnia 12/18/24 Unknown History release,multiphase (Ambien CR) oxycodone-acetaminophen 5 mg-325 1 tab PO Q6H PRN pain 2 days #8 12/19/24 Unknown Rx mg tablet (Endocet) tabs Allergy/AdvReac Type Severity Reaction Status Date / Time bee venom protein (honey Allergy Severe Anaphylaxis Verified 12/19/24 09:28 bee) (bee sting) ziprasidone (From Geodon) Allergy Severe facial Verified 12/19/24 09:28 swelling adhesive tape Allergy Mild Rash Verified 12/19/24 09:28 latex Allergy Mild Rash Verified 12/19/24 09:28 Iodinated Contrast Media Allergy Hives Verified 12/19/24 09:28 nitrofurantoin (From Allergy Other Verified 12/19/24 09:28 Macrobid) ondansetron (From Zofran) Allergy Hives Verified 12/19/24 09:28 propranolol Allergy Angioedema Verified 12/19/24 09:28 dihydroergotamine AdvReac Severe Chest Verified 12/19/24 09:28 tightness midazolam (From Versed) AdvReac Severe Other Verified 12/19/24 09:28 Family History Other Autoimmune disorder Bleeding disorder Breast cancer CVA (cerebral vascular accident) Colon cancer Diabetes Heart disease Hypertension Myocardial infarction Ovarian cancer Thyroid disorder Surgical History History of vascular access device Port-A-Cath in place H/O hernia repair H/O wisdom tooth extraction H/O oophorectomy Hx of cholecystectomy H/O tubal ligation Social History adopted: No household members: children and none number of children: 2 current occupational status: unemployed pets and animals: No sexually active: No Smoking Status: Never smoker alcohol intake: never substance use type: does not use caffeine: No frequency: 3-4 times per week do you feel safe at home: Yes ROS ROS ED ROS Narrative Constitutional: Denies fevers, chills, headaches, lightness, dizziness Eyes: Denies change in vision double vision blurry vision Cardiovascular: Denies chest pain Respiratory: Denies shortness of breath Neurological: Denies numbness, exam tingling Musculoskeletal: Complains of left-sided chest discomfort from the port placement as noted above Skin: Denies any rashes or lesions EXAM Physical Exam Narrative Exam Narrative: General: Patient was lying in bed rest comfortably did not appear to be in acute distress Head: Atraumatic, normocephalic Eyes: PERRL bilaterally, EOMI bilateral, no conjunctival injection noted Neck: Soft, supple, trachea midline Cardiovascular: Patient tachycardic with regular rhythm Respiratory: Clear to auscultation bilaterally Extremities: Radial pulses +2/4 in the bilateral extremities, +5/5 strength in the bilateral upper and lower extremities Neurological: Patient follow commands knew that she was at [facility] the year is 2024 Skin: Warm, dry, intact, surgical site has some redness where the adhesive tape is no crepitus noted no concerns for infection at this point in time this was just placed yesterday Const Vital Signs: 12/19/24 09:28 12/19/24 10:07 Temperature 98.4 F Temperature Source Oral Pulse Rate 121 H Respiratory Rate 18 Respiratory Effort Normal Respiratory Pattern Normal Blood Pressure 160/95 H Blood Pressure Mean 116 Pulse Ox 98 Oxygen Delivery Method Room Air MDM MDM MDM Narrative Medical decision making narrative: Patient is a 34-year-old female who presented to the emergency department the chief complaint of left-sided chest discomfort secondary to her port placement yesterday. On the differential diagnose includes but not limited to pneumothorax, abnormal positioning, postsurgical pain. Patient be given IM Toradol. Patient's chest x-ray reviewed by myself and by radiology which showed no acute cardiopulmonary processes of the left chest wall port catheter and left loop recorder. No pneumothorax no pleural effusion no focal consolidation. Patient was still having some pain therefore she was given Tyro. Patient is feeling better on reevaluation and would like to go home at this point time. Patient is advised to discontinue tramadol and she will be given Endocet and she was advised to use her at home Phenergan if she develops nausea with this. She is advised to rotate Tylenol and ibuprofen [id number] for mild to moderate pain. She is advised to follow-up with her doctor in outpatient setting return with any other concerns. She is agreeable to plan all question concerns answered she was discharged home in stable condition. Radiography Diagnostic Testing: Clinical Impression(s) from Imaging Studies Chest X-Ray 12/19/24 10:23 IMPRESSION: NO ACUTE FINDINGS. [facility] Triage Chief Complaint: Other, Pain/Inj ED Provider: Amol Hatch Dx/Rx/DC Orders Clinical Impression: Status post surgery, Left-sided chest wall pain Prescriptions: New oxycodone-acetaminophen [Endocet] 5-325 mg tablet 1 tab PO Q6H PRN (Reason: pain) 2 Days Qty: 8 0RF No Action aripiprazole 10 mg tablet 20 mg PO QDAY Rx Instructions: WITH 2MG TOTAL DAILY DOSE 12MG albuterol sulfate 90 mcg/actuation HFA aerosol inhaler 2 puff inhalation Q6H PRN (Reason: shortness of breath or wheezing) Qty: 8.5 0RF ibuprofen 800 mg tablet 800 mg PO Q8H PRN (Reason: pain) Qty: 30 0RF lamotrigine 200 mg tablet 200 mg PO BID Qulipta 60 mg tablet 60 mg PO DAILY clonidine HCl 0.1 mg tablet 0.1 mg PO TID hydroxyzine HCl 50 mg tablet 100 mg PO Q8H PRN (Reason: nausea and vomiting) Aimovig Autoinjector 70 mg/mL auto-injector 70 mg SUBCUT QMONTH Patient Comments: [NO ORIGINAL SIG] Slynd 4 mg (28) tablet 1 tab PO DAILY Reyvow 100 mg tablet 100 mg PO PRN sumatriptan succinate 6 mg/0.5 mL pen injector 6 mg SUBCUT Q12H PRN (Reason: MIGRAINE) Trulicity 1.5 mg/0.5 mL pen injector 1.5 mg subcut FR zolpidem [Ambien CR] 12.5 mg tablet,ext release multiphase 12.5 mg PO QHS PRN (Reason: insomnia) tramadol 50 mg tablet 50 mg PO Q8H PRN (Reason: pain) 3 Days Qty: 7 0RF diphenhydramine HCl [M-Dryl] 12.5 mg/5 mL liquid 25 mg PO 4X/DAY PRN PRN (Reason: allergies) (DME) Dexcom G7 Bone Worker Misc See Rx Instructions .Route Qty: 1 5RF Rx Instructions: As directed meclizine 25 mg tablet 25 mg PO BID PRN (Reason: motion sickness) Qty: 30 1RF (DME) Dexcom G6 Transmitter Device See Rx Instructions .Route Qty: 1 5RF Rx Instructions: As directed epinephrine [EpiPen 2-Scout] 0.3 mg/0.3 mL auto-injector 0.3 mg IM Q5-15M PRN (Reason: anaphylaxis) Qty: 2 1RF Rx Instructions: do not exceed 3 doses per episode hyoscyamine sulfate 0.125 mg tablet 0.125 mg PO BID-QID PRN (Reason: dyspepsia) Qty: 60 1RF Linzess 290 mcg capsule 290 mcg PO QDAY Qty: 90 0RF famotidine 20 mg tablet 20 mg PO QHS Qty: 30 1RF pantoprazole 40 mg tablet,delayed release (DR/EC) 40 mg PO QDAY Qty: 90 0RF cetirizine 10 mg tablet 10 mg PO DAILY PRN (Reason: allergy symptoms) Qty: 90 1RF docusate sodium [Colace] 100 mg capsule 100 mg PO DAILY Qty: 90 0RF (DME) lancets [OneTouch UltraSoft 2 Lancet] 30 gauge misc See Rx Instructions .Route Qty: 200 0RF Rx Instructions: Use once daily to check blood glucose level (DME) OneTouch Verio test strips Strip See Rx Instructions .Route Qty: 100 0RF Rx Instructions: Use one strip once per day to check blood glucose level acetaminophen [Tylenol Extra Strength] 500 mg tablet 1,000 mg PO Q8 PRN (Reason: fever or pain) Qty: 60 0RF gabapentin 400 mg capsule 400 mg PO TID Qty: 90 2RF lidocaine 5 % adhesive patch,medicated 1 patch topical QDAY PRN (Reason: pain) Qty: 30 2RF Rx Instructions: leave on most painful area for up to 12 hrs sumatriptan succinate 100 mg tablet See Rx Instructions PO .COMPLEX Qty: 12 1RF Rx Instructions: take 1 tab at onset of headache; if no relief, may repeat 1 tab after at least 2 hrs; max = 2 tabs/24 hrs PO (DME) Dexcom G7 Sensor Device See Rx Instructions .Route Qty: 1 5RF Rx Instructions: As directed promethazine [Promethegan] 25 mg suppository 25 mg GA Q6H PRN PRN (Reason: for nausea/vomiting) Qty: 12 0RF Primary Care Provider: Erika Ware Referrals: Erika Ware MD [Primary Care Provider] - Activity Restrictions/Additional Instructions: Follow-up your doctor in outpatient setting. Use Tylenol and ibuprofen [id number] for mild to moderate pain when you do this you can take something every 3 hours. Max dose of Tylenol in 24 hours 4000 mg max dose of ibuprofen in 24 hours 3200 mg. Use the Endocet for severe breakthrough pain. Return with any other concerns. Your chest x-ray today did not show any acute findings. Port appears to be in adequate position. Print Language: Burundian Disposition Disposition: Home, Self Care
== END 2024-12-19 12:20 | disposition home or self-care (01) ==
PROVIDERS: Emergency Provider Emergency Medicine; PCP Internal Medicine; Visit Provider Emergency Medicine
DX: Z98.890 Other specified postprocedural states (principal); E11.40 Type 2 diabetes mellitus with diabetic neuropathy, unspecified; F41.9 Anxiety disorder, unspecified; K58.9 Irritable bowel syndrome, unspecified; G43.909 Migraine, unspecified, not intractable, without status migrainosus; D68.51 Activated protein C resistance; F32.A Depression, unspecified; R07.89 Other chest pain; Z95.828 Presence of other vascular implants and grafts
CPT/HCPCS: 71046; 96372; 99282

== ENCOUNTER 2025-01-02 12:47 | Emergency (ER) | payer MEDICAID, SELFPAY ==
[2025-01-02 12:47] VITALS: BP 138/84; PULSE 115; RESP 14; TEMP 36.6; O2SAT 98; BMI 40.1
--- NOTE | 2025-01-02 13:09 | US_ITS ---
PROCEDURE: TRANSVAGINAL NON- 01/02/2025 REASON FOR EXAM: RIGHT PELVIC PAIN TECHNIQUE: TRANSVAGINAL NON- FINDINGS: Measurements: Uterus: 8.5 cm L x 4.7 cm AP x 5.8 cm T with a volume of 122.6 mL Endometrial Thickness: 5.9 mm Right Ovary: 3.1 cm x 2.8 cm x 1.9 with a volume of mL. Left Ovary: Status post left oophorectomy 2017 Uterus: Anteverted and heterogeneous Endometrium: Hyperechoic Right ovary: No mass. Normal blood flow No left adnexal mass. Other: No fluid in cul-de-sac. US/Transvaginal Non- IMPRESSION: No acute process. Status post left oophorectomy. Normal right ovary and right adnexa. Reading [facility]
--- NOTE | 2025-01-02 13:16 | ED.VIS.GI ---
HPI HPI - GI History of Present Illness Chief Complaint: Abd Pain Informant: patient Narrative Narrative: Awakening 6 AM right pelvic pain with nausea. No vomiting. No urinary symptoms. Reports had a left ovarian torsion in 2018 requiring removal. States this feels similar however on the right side. Cholecystectomy. Says appendix. No fever or chills. She had tubal ligation in the past. Mediport placed couple weeks ago due to history of chronic migraines getting infusions 4 days a week. It has been used since placement. Multiple allergies reviewed. Prior similar symptoms: Yes PFSH PFSH Medical History Easy bruising Dietary restriction Implantable loop recorder present Wears glasses Anxiety MRSA infection Substance abuse History of steroid therapy Diabetes Injury of head and neck History of IBS Gastric reflux Neuropathy delivery delivered Arthritis Prolonged QT interval PCOS (polycystic ovarian syndrome) Factor V Leiden Anxiety Depression Pulmonary embolism DVT (deep venous thrombosis) TIA (transient ischemic attack) Ovarian cyst Home Medications ?Medication ?Instructions ?Recorded ?Last Taken ?Type blood-glucose,air and hydronic balancing technician,cont #1 ea 06/09/24 Unknown Rx (Dexcom G7 Learning And Development Coordinator) meclizine 25 mg tablet 25 mg PO BID PRN motion sickness 06/16/24 Unknown Rx #30 tabs blood-glucose transmitter (Dexcom #1 ea 07/09/24 Unknown Rx G6 Transmitter device) atogepant 60 mg tablet (Qulipta) 60 mg PO DAILY 07/14/24 10/21/24 History lamotrigine 200 mg tablet 200 mg PO BID 07/14/24 10/21/24 History diphenhydramine HCl 12.5 mg/5 mL 25 mg PO 4X/DAY PRN PRN allergies 09/13/24 Unknown History oral liquid (M-Dryl) epinephrine 0.3 mg/0.3 mL 0.3 mg (0.3 mL) IM Q5-15M PRN 10/05/24 Unknown Rx injection, auto-injector (EpiPen anaphylaxis #2 ea 2-Scout) linaclotide 290 mcg capsule 290 mcg PO QDAY #90 caps 10/13/24 10/21/24 Rx (Linzess) erenumab-aooe 70 mg/mL 70 mg subcut QMONTH 10/21/24 10/12/24 History subcutaneous auto-injector (Aimovig Autoinjector) hydroxyzine HCl 50 mg tablet 100 mg PO Q8H PRN nausea and 10/21/24 12/18/24 History vomiting lasmiditan 100 mg tablet (Reyvow) 100 mg PO PRN MIGRAINE 10/21/24 10/14/24 History pantoprazole 40 mg tablet,delayed 40 mg PO QDAY #90 tabs 11/10/24 Unknown Rx release albuterol sulfate 90 mcg/actuation 2 puff inhalation Q6H PRN 11/19/24 Unknown Rx aerosol inhaler shortness of breath or wheezing #8.5 grams ibuprofen 800 mg tablet 800 mg PO Q8H PRN pain #30 tabs 11/19/24 Unknown Rx blood sugar diagnostic (OneTouch #100 ea 12/02/24 Unknown Rx Verio test strips) cetirizine 10 mg tablet 10 mg PO DAILY PRN allergy 12/02/24 Unknown Rx symptoms #90 tabs lancets 30 gauge (OneTouch #200 ea 12/02/24 Unknown Rx UltraSoft 2 Lancet) acetaminophen 500 mg tablet 1,000 mg (2 x 500 mg) PO Q8 PRN 12/08/24 Unknown Rx (Tylenol Extra Strength) fever or pain #60 tabs gabapentin 400 mg capsule 400 mg PO TID #90 caps 12/08/24 Unknown Rx lidocaine 5 % topical patch 1 patch topical QDAY PRN pain #30 12/08/24 Unknown Rx ea blood-glucose sensor (Dexcom G7 #1 ea 12/09/24 Unknown Rx Sensor device) sumatriptan succinate 100 mg tablet See Rx Instructions PO .COMPLEX 12/09/24 Unknown Rx #12 tabs promethazine 25 mg rectal 25 mg MT Q6H PRN PRN for 12/10/24 Unknown Rx suppository (Promethegan) nausea/vomiting #12 supp dulaglutide 1.5 mg/0.5 mL 1.5 mg subcut FR 12/11/24 12/04/24 History subcutaneous pen injector (Trulicity) sumatriptan succinate 6 mg/0.5 mL 6 mg subcut Q12H PRN MIGRAINE 12/11/24 Unknown History subcutaneous pen injector tramadol 50 mg tablet 50 mg PO Q8H PRN pain 3 days #7 12/18/24 Unknown Rx tabs zolpidem 12.5 mg tablet,extended 12.5 mg PO QHS PRN insomnia 12/18/24 Unknown History release,multiphase (Ambien CR) triamcinolone acetonide 0.1 % 1 applic topical BID #30 grams 01/01/25 Unknown Rx topical cream aripiprazole 20 mg tablet 20 mg PO QHS PRN MOOD STABILIZER 01/02/25 Unknown History docusate sodium 100 mg capsule 100 mg PO DAILY PRN constipation 01/02/25 Unknown History (Colace) Allergy/AdvReac Type Severity Reaction Status Date / Time bee venom protein (honey Allergy Severe Anaphylaxis Verified 01/02/25 12:48 bee) (bee sting) ziprasidone (From Geodon) Allergy Severe facial Verified 01/02/25 12:48 swelling adhesive tape Allergy Mild Rash Verified 01/02/25 12:48 latex Allergy Mild Rash Verified 01/02/25 12:48 Iodinated Contrast Media Allergy Hives Verified 01/02/25 12:48 nitrofurantoin (From Allergy Other Verified 01/02/25 12:48 Macrobid) ondansetron (From Zofran) Allergy Hives Verified 01/02/25 12:48 propranolol Allergy Angioedema Verified 01/02/25 12:48 dihydroergotamine AdvReac Severe Chest Verified 01/02/25 12:48 tightness midazolam (From Versed) AdvReac Severe Other Verified 01/02/25 12:48 Family History Other Autoimmune disorder Bleeding disorder Breast cancer CVA (cerebral vascular accident) Colon cancer Diabetes Heart disease Hypertension Myocardial infarction Ovarian cancer Thyroid disorder Surgical History History of vascular access device Port-A-Cath in place H/O hernia repair H/O wisdom tooth extraction H/O oophorectomy Hx of cholecystectomy H/O tubal ligation Social History adopted: No household members: children and none number of children: 2 current occupational status: unemployed pets and animals: No sexually active: No Smoking Status: Never smoker alcohol intake: never substance use type: does not use caffeine: No frequency: 3-4 times per week do you feel safe at home: Yes ROS ROS ED Constitutional Constitutional ED: Denies chills, fever(s) or sweats ENT ENT ED: Denies sore throat Cardiovascular Cardiovascular: Denies chest pain, leg edema, palpitations or racing heartbeat Respiratory/Chest Respiratory/Chest: Denies cough, dyspnea or dyspnea on exertion Gastrointestinal Gastrointestinal: Reports nausea; Denies abdominal pain, diarrhea or vomiting Genitourinary Genitourinary ED: Reports other Details: Right pelvic pain ; Denies dysuria, hematuria or urinary frequency Musculoskeletal Musculoskeletal: Denies back pain, extremity pain or neck pain Integumentary Denies rash or wounds Neurologic Neurologic: Denies headache(s), paresthesias or weakness EXAM Physical Exam Const Vital Signs: 01/02/25 12:47 01/02/25 13:40 01/02/25 15:00 Temperature 98 F Temperature Source Temporal Pulse Rate 115 H 100 88 Respiratory Rate 14 16 12 Blood Pressure 138/84 H 157/101 H 156/113 H Blood Pressure Mean 102 119 127 Pulse Ox 98 99 99 Oxygen Delivery Method Room Air Room Air Room Air 01/02/25 15:24 01/02/25 17:00 01/02/25 17:40 Temperature 97.9 F Temperature Source Pulse Rate 74 77 62 Respiratory Rate 16 16 14 Blood Pressure 156/113 H 138/79 H 118/70 Blood Pressure Mean 121 98 86 Pulse Ox 100 98 100 Oxygen Delivery Method Room Air Room Air Positive well nourished and well developed General Appearance ED: well developed and NAD HEENT Reports moist mucous membranes normocephalic and atraumatic Eyes General Eye ED: Yes normal appearance of both eyes Neck full ROM Chest Wall Chest Narrative: Left chest wall Mediport incisions, clean, dry, intact. Chest: Negative for tenderness Resp normal respiratory effort and normal air movement Effort and Inspection: symmetric chest movement; Negative for respiratory distress Cardio regular rate, regular rhythm and no murmurs Peripheral Pulses: pulses 2+ throughout GI normal to inspection, nondistended, normoactive bowel sounds GI Narrative: Negative McBurney's, there is tenderness right pelvic without guarding or rebound. Palpation: Negative for guarding or rebound tenderness present Extremity normal to inspection General Extremety ED: Negative for edema or tenderness General Extremity: Negative for edema Neuro oriented x3 and no sensory deficits noted Sensorium / Orientation: awake and alert Skin no rashes or lesions noted and no wounds MDM MDM MDM Narrative Medical decision making narrative: Interventions / MDM: Differential diagnosis: Pelvic pain, history of ovarian cyst, history of ovarian torsion Diagnosis considered but do not suspect: Ovarian cyst/torsion however ultrasound negative. My EKG interpretation: N/A Imaging independently reviewed and interpreted by myself: Transvaginal ultrasound: Normal right ovary no cyst no torsion. External documents reviewed: N/A Test considered but not ordered:N/A ED course: Pain right pelvis history ovarian torsion left side. Nontoxic. Will establish IV for labs and urine. Will obtain pelvic ultrasound to start. Will reevaluate. Morphine and Reglan with fluids ordered as she is allergic to Zofran. 1540: White count normal at 4.9 hemoglobin 10.9. Creatinine 0.64. hCG negative. Nurse reports patient did not want Reglan she is allergic to Zofran. She was a different medicine with Benadryl. Compazine and Benadryl ordered. Ultrasound performed with pending results. Ultrasound results normal. Nausea improved. Pain pelvic region mild improved from previous. No pain up in the abdomen for concerns for appendicitis. Discussed with patient can further workup with imaging as risk and benefits with radiation from CT scan. Shared decision made, will hold on imaging with CT at this time. Discussed signs and symptoms to return otherwise outpatient follow-up with her doctors. All questions were answered. Re-evaluation: stable Disposition discussed with patient/family/significant other: Patient Case discussed with consulting clinician: N/A This note was generated with [employer] dictation software. It may contain incorrect words, spelling, and punctuation that were not noted in checking the note before signing. Lab Data Attestation: I reviewed the patient's lab results. Labs: Laboratory Results - last 24 hr 01/02/25 01/02/25 01/02/25 14:00 14:00 14:46 WBC Cancelled 4.9 Corrected WBC Cancelled RBC Cancelled 4.11 L Hgb Cancelled 10.9 L Hct Cancelled 33.2 L MCV Cancelled 80.8 L MCH Cancelled 26.5 L MCHC Cancelled 32.8 RDW Std Deviation Cancelled 39.8 RDW Coeff of Millie Cancelled 13.5 Plt Count Cancelled 217 MPV Cancelled 8.6 Immature Gran % (Auto) Cancelled 0.400 Neut % (Auto) Cancelled 52.9 Lymph % (Auto) Cancelled 35.9 [place] % (Auto) Cancelled 5.7 Eos % (Auto) Cancelled 4.5 Baso % (Auto) Cancelled 0.6 Absolute Neuts (auto) Cancelled 2.6 Absolute Lymphs (auto) Cancelled 1.77 Total Counted Cancelled Neutrophils % (Manual) Cancelled Band Neutrophils % Cancelled Lymphocytes % (Manual) Cancelled Monocytes % (Manual) Cancelled Eosinophils % (Manual) Cancelled Basophils % (Manual) Cancelled Metamyelocytes % Cancelled Myelocytes % Cancelled Promyelocytes % Cancelled Blast Cells % Cancelled Plasma Cell % (Manual) Cancelled Other Cells % Cancelled Nucleated RBC % Cancelled 0 Nucleated RBCs/100 WBC Cancelled Differential Comment Cancelled Diff Path Review Cancelled Hypersegmented Neuts Cancelled Atypical Lymphocytes Cancelled Reactive Lymphocytes Cancelled Smudge Cells Cancelled Toxic Granulation Cancelled Toxic Vacuolation Cancelled Dohle Bodies Cancelled Sybil Rods Cancelled Platelet Estimate Cancelled Plt Morphology Comment Cancelled RBC Morphology Cancelled Cancelled Polychromasia Cancelled Hypochromasia Cancelled Basophilic Stippling Cancelled Anisocytosis Cancelled Microcytosis Cancelled Macrocytosis Cancelled Spherocytes Cancelled Sickle Cells Cancelled Target Cells Cancelled Tear Drop Cells Cancelled Ovalocytes Cancelled Stomatocytes Cancelled [place] Bodies Cancelled [place] Cells Cancelled Bite Cells Cancelled Crenated Cell Cancelled Acanthocytes (Spur) Cancelled Rouleaux Cancelled Schistocytes Cancelled Sodium Cancelled 138 Potassium Cancelled 4.3 Chloride Cancelled 103 Carbon Dioxide Cancelled 24.7 Anion Gap Cancelled 10 BUN Cancelled 10 Creatinine Cancelled 0.64 L Estim Creat Clear Calc Cancelled 133.88 Est GFR (MDRD) Non-Af Cancelled 120 BUN/Creatinine Ratio Cancelled 16.2 Glucose Cancelled 197 H Calcium Cancelled 9.0 Serum , Qual Cancelled NEGATIVE Urine Color Urine Clarity Urine pH Ur Specific [place] Urine Protein Urine Glucose (UA) Urine Ketones Urine Occult Blood Urine Nitrite Urine Bilirubin Urine Urobilinogen Ur Leukocyte Esterase Urine RBC Urine WBC Ur Squamous Epith Cells Urine Bacteria Urine Mucus 01/02/25 16:14 WBC Corrected WBC RBC Hgb Hct MCV MCH MCHC RDW Std Deviation RDW Coeff of Millie Plt Count MPV Immature Gran % (Auto) Neut % (Auto) Lymph % (Auto) [place] % (Auto) Eos % (Auto) Baso % (Auto) Absolute Neuts (auto) Absolute Lymphs (auto) Total Counted Neutrophils % (Manual) Band Neutrophils % Lymphocytes % (Manual) Monocytes % (Manual) Eosinophils % (Manual) Basophils % (Manual) Metamyelocytes % Myelocytes % Promyelocytes % Blast Cells % Plasma Cell % (Manual) Other Cells % Nucleated RBC % Nucleated RBCs/100 WBC Differential Comment Diff Path Review Hypersegmented Neuts Atypical Lymphocytes Reactive Lymphocytes Smudge Cells Toxic Granulation Toxic Vacuolation Dohle Bodies Ysbil Rods Platelet Estimate Plt Morphology Comment RBC Morphology Polychromasia Hypochromasia Basophilic Stippling Anisocytosis Microcytosis Macrocytosis Spherocytes Sickle Cells Target Cells Tear Drop Cells Ovalocytes Stomatocytes [place] Bodies [place] Cells Bite Cells Crenated Cell Acanthocytes (Spur) Rouleaux Schistocytes Sodium Potassium Chloride Carbon Dioxide Anion Gap BUN Creatinine Estim Creat Clear Calc Est GFR (MDRD) Non-Af BUN/Creatinine Ratio Glucose Calcium Serum , Qual Urine Color Straw Urine Clarity Clear Urine pH 7.0 Ur Specific [place] 1.010 Urine Protein Negative Urine Glucose (UA) Normal Urine Ketones Negative Urine Occult Blood 25 H Urine Nitrite Negative Urine Bilirubin Negative Urine Urobilinogen Normal Ur Leukocyte Esterase Negative Urine RBC 0-5 SEEN Urine WBC 0-5 SEEN Ur Squamous Epith Cells 0-5 SEEN Urine Bacteria 0 SEEN Urine Mucus 0 SEEN Radiography Diagnostic Testing: Clinical Impression(s) from Imaging Studies Transvaginal US 01/02/25 13:09 IMPRESSION: No acute process. Status post left oophorectomy. Normal right ovary and right adnexa. [facility] Discharge Plan Triage Chief Complaint: Abd Pain ED Provider: Everton Stoll Dx/Rx/DC Orders Clinical Impression: Pelvic pain, Nausea Instructions: ED Pelvic Pain, Unknown Cause Prescriptions: No Action albuterol sulfate 90 mcg/actuation HFA aerosol inhaler 2 puff inhalation Q6H PRN (Reason: shortness of breath or wheezing) Qty: 8.5 0RF ibuprofen 800 mg tablet 800 mg PO Q8H PRN (Reason: pain) Qty: 30 0RF triamcinolone acetonide 0.1 % cream 1 applic topical BID Qty: 30 0RF lamotrigine 200 mg tablet 200 mg PO BID Qulipta 60 mg tablet 60 mg PO DAILY hydroxyzine HCl 50 mg tablet 100 mg PO Q8H PRN (Reason: nausea and vomiting) Aimovig Autoinjector 70 mg/mL auto-injector 70 mg SUBCUT QMONTH Patient Comments: [NO ORIGINAL SIG] Reyvow 100 mg tablet 100 mg PO PRN sumatriptan succinate 6 mg/0.5 mL pen injector 6 mg SUBCUT Q12H PRN (Reason: MIGRAINE) Trulicity 1.5 mg/0.5 mL pen injector 1.5 mg subcut FR zolpidem [Ambien CR] 12.5 mg tablet,ext release multiphase 12.5 mg PO QHS PRN (Reason: insomnia) tramadol 50 mg tablet 50 mg PO Q8H PRN (Reason: pain) 3 Days Qty: 7 0RF aripiprazole 20 mg tablet 20 mg PO QHS PRN (Reason: MOOD STABILIZER) docusate sodium [Colace] 100 mg capsule 100 mg PO DAILY PRN (Reason: constipation) diphenhydramine HCl [M-Dryl] 12.5 mg/5 mL liquid 25 mg PO 4X/DAY PRN PRN (Reason: allergies) (DME) Dexcom G7 Learning And Development Coordinator Misc See Rx Instructions .Route Qty: 1 5RF Rx Instructions: As directed meclizine 25 mg tablet 25 mg PO BID PRN (Reason: motion sickness) Qty: 30 1RF (DME) Dexcom G6 Transmitter Device See Rx Instructions .Route Qty: 1 5RF Rx Instructions: As directed epinephrine [EpiPen 2-Scout] 0.3 mg/0.3 mL auto-injector 0.3 mg IM Q5-15M PRN (Reason: anaphylaxis) Qty: 2 1RF Rx Instructions: do not exceed 3 doses per episode Linzess 290 mcg capsule 290 mcg PO QDAY Qty: 90 0RF pantoprazole 40 mg tablet,delayed release (DR/EC) 40 mg PO QDAY Qty: 90 0RF cetirizine 10 mg tablet 10 mg PO DAILY PRN (Reason: allergy symptoms) Qty: 90 1RF (DME) lancets [OneTouch UltraSoft 2 Lancet] 30 gauge misc See Rx Instructions .Route Qty: 200 0RF Rx Instructions: Use once daily to check blood glucose level (DME) OneTouch Verio test strips Strip See Rx Instructions .Route Qty: 100 0RF Rx Instructions: Use one strip once per day to check blood glucose level acetaminophen [Tylenol Extra Strength] 500 mg tablet 1,000 mg PO Q8 PRN (Reason: fever or pain) Qty: 60 0RF gabapentin 400 mg capsule 400 mg PO TID Qty: 90 2RF lidocaine 5 % adhesive patch,medicated 1 patch topical QDAY PRN (Reason: pain) Qty: 30 2RF Rx Instructions: leave on most painful area for up to 12 hrs sumatriptan succinate 100 mg tablet See Rx Instructions PO .COMPLEX Qty: 12 1RF Rx Instructions: take 1 tab at onset of headache; if no relief, may repeat 1 tab after at least 2 hrs; max = 2 tabs/24 hrs PO (DME) Dexcom G7 Sensor Device See Rx Instructions .Route Qty: 1 5RF Rx Instructions: As directed promethazine [Promethegan] 25 mg suppository 25 mg MT Q6H PRN PRN (Reason: for nausea/vomiting) Qty: 12 0RF Primary Care Provider: Rashawn Yip Referrals: Rashawn Yip PA [Primary Care Provider] - 1 Week Activity Restrictions/Additional Instructions: Labs are normal. White count normal. Ultrasound normal right ovary no torsion no cysts. Use Tylenol as needed you have your nausea medicines at home. Follow-up with your doctor. Develop fevers or worsening symptoms, return to the ED for reevaluation. Print Language: Tamazight Disposition Disposition: Home, Self Care Discharge Date/Time: 01/02/25 17:44
[2025-01-02 13:40] VITALS: BP 157/101; PULSE 100; RESP 16; O2SAT 99
[2025-01-02] MEDS: Morphine 2 MG/ML Syringe IV (13:45)
[2025-01-02] MEDS: 0.9% Normal Saline (500mL Bag) 500 ML 999 ML IV (13:45)
--- NOTE | 2025-01-02 14:26 | ED.RN ---
LAB CALLED FOR BLOOD DRAW
[2025-01-02 14:52] LABS: Absolute Lymphocyte Count 1.77 X10^3/uL (0.83-4.51); Absolute Neutrophil Count 2.6 X10^3/uL (2.0-7.7); Basophil# 0.03 X10^3/uL; Basophil% 0.6 % (0-1); Eosinophil# 0.22 X10^3/uL; Eosinophils% 4.5 % (0-5); Hematocrit 33.2 % (37-47); Hemoglobin 10.9 g/dL (12.0-15.0); Lymphocyte # 1.77 X10^3/ul (0.83-4.51); Lymphocyte % 35.9 % (19-41); Mean Corp Hgb Conc 32.8 g/dL (32-36); Mean Corpuscular Hgb 26.5 pg (27.0-32.0); Mean Corpuscular Volume 80.8 fL (81-99); Mean Platelet Vol. 8.6 fl (6.2-12.0); Monocyte# 0.28 X10^3/uL; Monocyte% 5.7 % (0-10); NRBC Flagged by Analyzer 0 % (0-5); Neutrophil # 2.61 X10^3/uL (2.7-7.7); Neutrophil % 52.9 % (47-70); Platelet Count 217 K/mm3 (150-450); RBC Distribution Width CV 13.5 % (11.6-14.6); RBC Distribution Width SD 39.8 fl (35.1-43.9); Red Blood Count 4.11 M/mm3 (4.2-5.4); White Blood Count 4.9 K/mm3 (4.4-11.0)
[2025-01-02 15:00] VITALS: BP 156/113; PULSE 88; RESP 12; O2SAT 99
[2025-01-02 15:10] LABS: Internal QC Validated? YES +Cl - CLEAR BKGD; Pregnancy, Serum, hCG Quali. NEGATIVE Negative
[2025-01-02 15:19] LABS: Anion Gap 10 (5-15); BUN 10 mg/dL (4-19); BUN/Creat Ratio 16.2 RATIO (10-20); Carbon Dioxide 24.7 mmol/L (21.0-32.0); Chloride 103 mmol/L (98-108); Creatinine, Serum 0.64 mg/dL (0.70-1.20); EST Glomerular Filtration Rate 120 (>60); Estimated Creatinine Clearance 133.88 ml/min (50-250); Glucose 197 mg/dL (70-99); Potassium 4.3 mmol/L (3.3-5.1); Sodium Level 138 mmol/L (133-145)
[2025-01-02 15:24] VITALS: BP 156/113; PULSE 74; RESP 16; O2SAT 100
[2025-01-02] MEDS: DiphenhydrAMINE 50 MG/ML Syringe 25 MG IV (15:50)
[2025-01-02] MEDS: proCHLORPERazine 10 MG/2 ML Vial 5 MG IV (15:50)
[2025-01-02 16:22] LABS: Bacteria 0 SEEN /hpf (None Seen); Mucous, Urine 0 SEEN /hpf (<or=2+)
[2025-01-02 16:49] LABS: Color, Urine Straw (Yellow); Glucose, Dipstick Normal (Normal); Ketone-Dipstick Negative (Negative); Leukocyte Esterase-Dipstick Negative /ul (Negative); Nitrite-Dipstick Negative (Negative); Occult Blood-Urine 25 /ul (Negative); Protein-Dipstick Negative (Negative); Urine Bilirubin Dipstick Negative (Negative); Urine Clarity Clear (Clear); Urine Urobilinogen Normal (Normal)
[2025-01-02 17:00] VITALS: BP 138/79; PULSE 77; RESP 16; O2SAT 98
[2025-01-02 17:40] VITALS: BP 118/70; PULSE 62; RESP 14; TEMP 36.6; O2SAT 100
[2025-01-02 17:48] LABS: Red Blood Cells-Urine 0-5 SEEN /hpf (0-5); Squamous Epithelial Cells - UA 0-5 SEEN /hpf (5-10); White Blood Cells 0-5 SEEN /hpf (0-5)
== END 2025-01-02 17:44 | disposition home or self-care (01) ==
LOC: ED 13:15
PROVIDERS: Emergency Provider Emergency Medicine; PCP Physician Assistant; Visit Provider Emergency Medicine
DX: R10.2 Pelvic and perineal pain (principal); R11.0 Nausea; Z90.49 Acquired absence of other specified parts of digestive tract; K21.9 Gastro-esophageal reflux disease without esophagitis
CPT/HCPCS: 36415; 76830; 80048; 81001; 84703; 85025; 96361; 96374; 96375; 99284; A4216

== ENCOUNTER 2025-01-27 10:23 | Emergency (ER) | payer MEDICAID, SELFPAY ==
[2025-01-27 10:24] VITALS: BP 119/87; PULSE 133; RESP 20; TEMP 35.9; O2SAT 100; BMI 38.1
--- NOTE | 2025-01-27 11:13 | EX.ED.VIS.HA ---
HPI History of Present Illness Chief Complaint: Female C/O Detail of Chief Complaint: Retained tampon and headache Informant: patient and friend Onset/Context/Timing Onset: Today (Headache started this morning.) and Yesterday (Concerned she has a retained tampon that she inserted last evening) Context: Gradual Timing: Continuous Quality -Headache: Positive for Tightness; Negative for Similar Prior Headaches Location: Predominantly left side. She normally has headaches on the right when it i Current Severity: Moderate Maximum Severity: Severe Worsened by: Nothing Relieved by: Nothing Associated Symptoms/Injury Associated Symptoms: Negative for Fever, Nausea, Vomiting, Sore Throat, Sinus Pressure, Numbness, Tingling, Preceding Aura, Visual Changes, Blurred Vision, Photophobia or Visual Loss Injury - FALL: Positive for Direct Trauma (Apparently bumped her head on the wall. She sleepwalks.) Narrative Narrative: Patient is a 34-year-old female. She is presently on her menses. She presents for 2 reasons 1. 1 because of concern for retained tampon that she inserted last evening and 2 headache that is put on the left side. Patient states she inserted a tampon last evening. This morning when she attempted to remove it there was no string. She is concerned that she may have pushed it into far. She denies fever, chills night sweats. She has double vision blurred vision loss of vision. Denies light sensitivity. She does report neck pain. She denies cardiac or respiratory symptoms. She denies urologic symptoms. She denies rash. This headache is not her typical migraine. She denies photophobia or sonophobia. She did bump her head. She apparently sleepwalks. She is scheduled for sleep study. She has multiple allergies. Prior similar symptoms: Yes Recent Illness/Hospitalization: No [facility] [place] Medical History Easy bruising Dietary restriction Implantable loop recorder present Wears glasses Anxiety MRSA infection Substance abuse History of steroid therapy Diabetes Injury of head and neck History of IBS Gastric reflux Neuropathy delivery delivered Arthritis Prolonged QT interval PCOS (polycystic ovarian syndrome) Factor V Leiden Anxiety Depression Pulmonary embolism DVT (deep venous thrombosis) TIA (transient ischemic attack) Ovarian cyst Home Medications ?Medication ?Instructions ?Recorded ?Last Taken ?Type 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-glucose,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,cont #1 ea 06/09/24 Unknown Rx (Dexcom G7 Courtroom Reporter) meclizine 25 mg tablet 25 mg PO BID PRN motion sickness 06/16/24 Unknown Rx #30 tabs blood-glucose transmitter (Dexcom #1 ea 07/09/24 Unknown Rx G6 Transmitter device) atogepant 60 mg tablet (Qulipta) 60 mg PO DAILY 07/14/24 10/21/24 History lamotrigine 200 mg tablet 200 mg PO BID 07/14/24 10/21/24 History diphenhydramine HCl 12.5 mg/5 mL 25 mg PO 4X/DAY PRN PRN allergies 09/13/24 Unknown History oral liquid (M-Dryl) epinephrine 0.3 mg/0.3 mL 0.3 mg (0.3 mL) IM Q5-15M PRN 10/05/24 Unknown Rx injection, auto-injector (EpiPen anaphylaxis #2 ea 2-Scout) linaclotide 290 mcg capsule 290 mcg PO QDAY #90 caps 10/13/24 10/21/24 Rx (Linzess) erenumab-aooe 70 mg/mL 70 mg subcut QMONTH 10/21/24 10/12/24 History subcutaneous auto-injector (Aimovig Autoinjector) hydroxyzine HCl 50 mg tablet 100 mg PO Q8H PRN nausea and 10/21/24 12/18/24 History vomiting lasmiditan 100 mg tablet (Reyvow) 100 mg PO PRN MIGRAINE 10/21/24 10/14/24 History albuterol sulfate 90 mcg/actuation 2 puff inhalation Q6H PRN 11/19/24 Unknown Rx aerosol inhaler shortness of breath or wheezing #8.5 grams ibuprofen 800 mg tablet 800 mg PO Q8H PRN pain #30 tabs 11/19/24 Unknown Rx blood sugar diagnostic (OneTouch #100 ea 12/02/24 Unknown Rx Verio test strips) cetirizine 10 mg tablet 10 mg PO DAILY PRN allergy 12/02/24 Unknown Rx symptoms #90 tabs lancets 30 gauge (OneTouch #200 ea 12/02/24 Unknown Rx UltraSoft 2 Lancet) acetaminophen 500 mg tablet 1,000 mg (2 x 500 mg) PO Q8 PRN 12/08/24 Unknown Rx (Tylenol Extra Strength) fever or pain #60 tabs lidocaine 5 % topical patch 1 patch topical QDAY PRN pain #30 12/08/24 Unknown Rx ea blood-glucose sensor (Dexcom G7 #1 ea 12/09/24 Unknown Rx Sensor device) promethazine 25 mg rectal 25 mg KS Q6H PRN PRN for 12/10/24 Unknown Rx suppository (Promethegan) nausea/vomiting #12 supp dulaglutide 1.5 mg/0.5 mL 1.5 mg subcut FR 12/11/24 12/04/24 History subcutaneous pen injector (Trulicity) sumatriptan succinate 6 mg/0.5 mL 6 mg subcut Q12H PRN MIGRAINE 12/11/24 Unknown History subcutaneous pen injector tramadol 50 mg tablet 50 mg PO Q8H PRN pain 3 days #7 12/18/24 Unknown Rx tabs zolpidem 12.5 mg tablet,extended 12.5 mg PO QHS PRN insomnia 12/18/24 Unknown History release,multiphase (Ambien CR) triamcinolone acetonide 0.1 % 1 applic topical BID #30 grams 01/01/25 Unknown Rx topical cream aripiprazole 20 mg tablet 20 mg PO QHS PRN MOOD STABILIZER 01/02/25 Unknown History sumatriptan succinate 100 mg tablet See Rx Instructions PO .COMPLEX 01/11/25 Unknown Rx #12 tabs vibegron 75 mg tablet (Gemtesa) 75 mg PO QDAY #7 tabs 01/13/25 Unknown Rx nystatin 100,000 unit/mL oral 5 ml PO .qid #473 mL 01/14/25 Unknown Rx suspension docusate sodium 100 mg capsule 100 mg PO DAILY PRN constipation 01/25/25 Unknown Rx (Colace) #30 caps gabapentin 400 mg capsule 400 mg PO TID #90 caps 01/25/25 Unknown Rx pantoprazole 40 mg tablet,delayed 40 mg PO QDAY #90 tabs 01/25/25 Unknown Rx release Allergy/AdvReac Type Severity Reaction Status Date / Time bee venom protein (honey Allergy Severe Anaphylaxis Verified 01/27/25 10:26 bee) (bee sting) ziprasidone (From Geodon) Allergy Severe facial Verified 01/27/25 10:26 swelling adhesive tape Allergy Mild Rash Verified 01/27/25 10:26 latex Allergy Mild Rash Verified 01/27/25 10:26 Iodinated Contrast Media Allergy Hives Verified 01/27/25 10:26 nitrofurantoin (From Allergy Other Verified 01/27/25 10:26 Macrobid) ondansetron (From Zofran) Allergy Hives Verified 01/27/25 10:26 propranolol Allergy Angioedema Verified 01/27/25 10:26 dihydroergotamine AdvReac Severe Chest Verified 01/27/25 10:26 tightness midazolam (From Versed) AdvReac Severe Other Verified 01/27/25 10:26 Family History Other Autoimmune disorder Bleeding disorder Breast cancer CVA (cerebral vascular accident) Colon cancer Diabetes Heart disease Hypertension Myocardial infarction Ovarian cancer Thyroid disorder Surgical History History of vascular access device Port-A-Cath in place H/O hernia repair H/O wisdom tooth extraction H/O oophorectomy Hx of cholecystectomy H/O tubal ligation Social History adopted: No household members: children and none number of children: 2 current occupational status: unemployed pets and animals: No sexually active: No Smoking Status: Never smoker alcohol intake: never substance use type: does not use caffeine: No frequency: 3-4 times per week do you feel safe at home: Yes ROS ROS ED Constitutional Constitutional ED: Denies chills, fever(s), subjective, sweats or weight loss Eyes Eyes: Denies blurry vision, change in vision or diplopia ENT ENT ED: Denies ear pain, rhinorrhea or sore throat Cardiovascular Cardiovascular: Denies chest pain, palpitations or racing heartbeat Respiratory/Chest Respiratory/Chest: Denies cough, dyspnea or dyspnea on exertion Gastrointestinal Gastrointestinal: Denies abdominal pain, diarrhea or vomiting Genitourinary Genitourinary ED: Reports LMP (females 10-50) Details: Comment: (Presently.); Denies dysuria, hematuria or urinary frequency Musculoskeletal Musculoskeletal: Reports neck pain; Denies arthralgias, back pain or myalgias Integumentary Denies Abrasions or rash Neurologic Neurologic: Reports headache(s); Denies paresthesias or weakness Psychiatric Psychiatric: Denies anxiety or depression Hematologic/Lymphatic Hematologic/Lymphatic: Reports easy bruising; Denies easy bleeding EXAM Physical Exam Const Vital Signs: 01/27/25 10:24 01/27/25 10:48 Temperature 96.7 F L Temperature Source Temporal Pulse Rate 133 H Respiratory Rate 20 H Respiratory Effort Normal Non-Labored Respiratory Pattern Normal Blood Pressure 119/87 H Blood Pressure Mean 97 Pulse Ox 100 Oxygen Delivery Method Room Air Positive well nourished and well developed Constitutional Narrative: Patient seems anxious. BMI is 38.2. She is slightly pale. General Appearance ED: well developed, NAD and pallor; Negative for cyanotic or diaphoretic HEENT Reports normocephalic and moist mucous membranes trauma and tenderness; Negative for atraumatic Eyes PERRL and EOMs intact bilaterally General Eye ED: Negative for pale conjunctiva or scleral icterus Neck no lymphadenopathy, supple, no meningeal signs and no JVD Resp normal respiratory effort and clear to auscultation bilaterally Cardio regular rate, regular rhythm, S1 normal heart sound, S2 normal heart sound and no murmurs GI non-tender and non-distended Auscultation: normoactive bowel sounds Palpation: soft Narrative: External genitalia normal. Vaginal cervical close is normal. There is no evidence of retained tampon. Bimanual exam is normal. Back/Spine no CVA tenderness Extremity normal to inspection, full ROM and normal capillary refill General Extremety ED: Negative for edema or tenderness General Extremity: Negative for edema Neuro oriented x3, CN's II-XII intact bilaterally and no sensory deficits noted Alek Coma Scale: document GCS findings Spontaneous Obeys Commands Oriented 15 Sensorium / Orientation: awake and alert Speech: speech normal Psych Mood & Affect: anxious Skin General Skin Exam: elasticity normal, turgor normal and pallor; Negative for jaundice MDM MDM MDM Narrative Medical decision making narrative: Pelvic exam was performed with nurse switch house operator. The pelvic exam was normal. Her headache was treated with diphenhydramine, ketorolac and Reglan. Will reassess in 30 to 60 minutes. In my opinion there is no indication for imaging. Treatment and Re-Evaluation Narrative: Patient was reassessed at 1150. Her headache is resolved. Will discharge to home. Discharge Plan Triage Chief Complaint: Female C/O Other Complaint: Foreign Body ED Provider: Edwar Ibrahim Dx/Rx/DC Orders Clinical Impression: Left-sided headache, Type 2 diabetes mellitus, Anemia, History of migraine, Retained tampon not found on examination Instructions: Understanding Headache Pain Prescriptions: No Action albuterol sulfate 90 mcg/actuation HFA aerosol inhaler 2 puff inhalation Q6H PRN (Reason: shortness of breath or wheezing) Qty: 8.5 0RF ibuprofen 800 mg tablet 800 mg PO Q8H PRN (Reason: pain) Qty: 30 0RF triamcinolone acetonide 0.1 % cream 1 applic topical BID Qty: 30 0RF Gemtesa 75 mg tablet 75 mg PO QDAY Qty: 7 0RF lamotrigine 200 mg tablet 200 mg PO BID Qulipta 60 mg tablet 60 mg PO DAILY hydroxyzine HCl 50 mg tablet 100 mg PO Q8H PRN (Reason: nausea and vomiting) Aimovig Autoinjector 70 mg/mL auto-injector 70 mg SUBCUT QMONTH Patient Comments: [NO ORIGINAL SIG] Reyvow 100 mg tablet 100 mg PO PRN sumatriptan succinate 6 mg/0.5 mL pen injector 6 mg SUBCUT Q12H PRN (Reason: MIGRAINE) Trulicity 1.5 mg/0.5 mL pen injector 1.5 mg subcut FR zolpidem [Ambien CR] 12.5 mg tablet,ext release multiphase 12.5 mg PO QHS PRN (Reason: insomnia) tramadol 50 mg tablet 50 mg PO Q8H PRN (Reason: pain) 3 Days Qty: 7 0RF aripiprazole 20 mg tablet 20 mg PO QHS PRN (Reason: MOOD STABILIZER) diphenhydramine HCl [M-Dryl] 12.5 mg/5 mL liquid 25 mg PO 4X/DAY PRN PRN (Reason: allergies) (DME) Dexcom G7 Courtroom Reporter Misc See Rx Instructions .Route Qty: 1 5RF Rx Instructions: As directed meclizine 25 mg tablet 25 mg PO BID PRN (Reason: motion sickness) Qty: 30 1RF (DME) Dexcom G6 Transmitter Device See Rx Instructions .Route Qty: 1 5RF Rx Instructions: As directed epinephrine [EpiPen 2-Scout] 0.3 mg/0.3 mL auto-injector 0.3 mg IM Q5-15M PRN (Reason: anaphylaxis) Qty: 2 1RF Rx Instructions: do not exceed 3 doses per episode Linzess 290 mcg capsule 290 mcg PO QDAY Qty: 90 0RF cetirizine 10 mg tablet 10 mg PO DAILY PRN (Reason: allergy symptoms) Qty: 90 1RF (DME) lancets [OneTouch UltraSoft 2 Lancet] 30 gauge misc See Rx Instructions .Route Qty: 200 0RF Rx Instructions: Use once daily to check blood glucose level (DME) OneTouch Verio test strips Strip See Rx Instructions .Route Qty: 100 0RF Rx Instructions: Use one strip once per day to check blood glucose level acetaminophen [Tylenol Extra Strength] 500 mg tablet 1,000 mg PO Q8 PRN (Reason: fever or pain) Qty: 60 0RF lidocaine 5 % adhesive patch,medicated 1 patch topical QDAY PRN (Reason: pain) Qty: 30 2RF Rx Instructions: leave on most painful area for up to 12 hrs (DME) Dexcom G7 Sensor Device See Rx Instructions .Route Qty: 1 5RF Rx Instructions: As directed promethazine [Promethegan] 25 mg suppository 25 mg KS Q6H PRN PRN (Reason: for nausea/vomiting) Qty: 12 0RF sumatriptan succinate 100 mg tablet See Rx Instructions PO .COMPLEX Qty: 12 0RF Rx Instructions: take 1 tab at onset of headache; if no relief, may repeat 1 tab after at least 2 hrs; max = 2 tabs/24 hrs PO nystatin 100,000 unit/mL suspension 5 ml PO .qid Qty: 473 0RF Rx Instructions: swish around mouth and let sit in mouth before discarding or swallowing. Use medication as prescribed for 48 hours after symptoms clear pantoprazole 40 mg tablet,delayed release (DR/EC) 40 mg PO QDAY Qty: 90 0RF docusate sodium [Colace] 100 mg capsule 100 mg PO DAILY PRN (Reason: constipation) Qty: 30 0RF gabapentin 400 mg capsule 400 mg PO TID Qty: 90 0RF Primary Care Provider: Rashawn Yip Referrals: Rashawn Yip PA [Primary Care Provider] - As Needed Print Language: Iranian Disposition Disposition: Home, Self Care
[2025-01-27] MEDS: DiphenhydrAMINE 50 MG/ML Syringe 25 MG IV (11:27)
--- NOTE | 2025-01-27 12:31 | ED.RN ---
Port flushed with 20 mls of Normal Saline prior to de-accessing.
--- NOTE | 2025-01-27 12:31 | ED.RN ---
Port flushed with 20 mls of Normal Saline prior to de-accessing.
[2025-01-27 12:32] VITALS: BP 127/75; PULSE 99; RESP 15; TEMP 36.6; O2SAT 99
== END 2025-01-27 12:33 | disposition home or self-care (01) ==
PROVIDERS: Emergency Provider Emergency Medicine; PCP Physician Assistant; Visit Provider Emergency Medicine
DX: R51.9 Headache, unspecified (principal); E11.40 Type 2 diabetes mellitus with diabetic neuropathy, unspecified; D64.9 Anemia, unspecified; Z86.718 Personal history of other venous thrombosis and embolism; Z86.711 Personal history of pulmonary embolism; K21.9 Gastro-esophageal reflux disease without esophagitis; Z79.899 Other long term (current) drug therapy
CPT/HCPCS: 96374; 96375; 99285; A4216

== ENCOUNTER 2025-02-16 10:01 | Emergency (ER) | payer MEDICAID, SELFPAY ==
[2025-02-16 10:02] VITALS: BP 130/84; PULSE 117; RESP 16; TEMP 36.9; O2SAT 98; BMI 37.0
--- NOTE | 2025-02-16 10:17 | CT_ITS ---
PROCEDURE: ABDOMEN/PELVIS WITHOUT CONT 02/16/2025 REASON FOR EXAM: RLQ PAIN TECHNIQUE: ABDOMEN/PELVIS WITHOUT CONT Noncontrast technique limits evaluation of the abdominal and pelvic viscera. Coronal and Sagittal reconstruction series were provided. One or more dose reduction techniques were used (e.g., Automated exposure control, adjustment of the mA and/or kV according to patient size, use of iterative reconstruction technique). RADIATION DOSE SUMMARY: CTDlvol: 16.2 mGy DLP: 906.38 mGycm COMPARISON: Prior study dated November 12, 2023. FINDINGS: Lung bases: Tiny bilateral pleural effusions. This is unchanged as compared to prior study. Liver: Normal size. No obvious mass. Gallbladder: Surgically absent. Spleen: Normal size. Pancreas: Normal size. No surrounding inflammation. Adrenals: Unremarkable Kidneys: No urolithiasis. No hydronephrosis. Bladder: Unremarkable Reproductive Organs: Status post oophorectomy. Bowel: Moderate amount of fecal material is seen in the colon. Appendix: The appendix is not identified. There is no inflammatory process identified in the right lower quadrant to suggest appendicitis. Lymph nodes: Unremarkable. Vasculature: The abdominal aorta and IVC contours are normal. Noncontrast technique limits evaluation. Peritoneum / Retroperitoneum: Unremarkable Bones: No abnormality is seen. CT/Abdomen/Pelvis without Cont IMPRESSION: Small bilateral pleural effusions. These are unchanged. Status post cholecystectomy. Reading Location: [id number]
--- NOTE | 2025-02-16 10:18 | ED.VIS.GI ---
HPI HPI - GI History of Present Illness Chief Complaint: Abd Pain Detail of Chief Complaint: Abdominal pain Informant: patient Narrative Narrative: Patient presents with abdominal pain that started around 2:30 PM yesterday. She has had 3-4 episodes of vomiting. She denies diarrhea. She denies blood in her stool or vomit. Patient states that she had temperature up to 100.2 yesterday. She had dysuria about a week ago but had a urinalysis that was negative for infection. Still having some mild dysuria. There is no frequency or urgency. She has had prior cholecystectomy as well as tubal ligation. She has had prior . Patient has a port in her left chest due to frequent migraine infusions that she gets once a month. She does have history of kidney stones. [facility] Medical History Easy bruising Dietary restriction Implantable loop recorder present Wears glasses Anxiety MRSA infection Substance abuse History of steroid therapy Diabetes Injury of head and neck History of IBS Gastric reflux Neuropathy delivery delivered Arthritis Prolonged QT interval PCOS (polycystic ovarian syndrome) Factor V Leiden Anxiety Depression Pulmonary embolism DVT (deep venous thrombosis) TIA (transient ischemic attack) Ovarian cyst Home Medications ?Medication ?Instructions ?Recorded ?Last Taken ?Type blood-glucose,certified master safe technician,cont #1 ea 06/09/24 Unknown Rx (Dexcom G7 Business Improvement Manager) blood-glucose transmitter (Dexcom #1 ea 07/09/24 Unknown Rx G6 Transmitter device) atogepant 60 mg tablet (Qulipta) 60 mg PO DAILY 07/14/24 10/21/24 History lamotrigine 200 mg tablet 200 mg PO BID 07/14/24 10/21/24 History diphenhydramine HCl 12.5 mg/5 mL 25 mg PO 4X/DAY PRN PRN allergies 09/13/24 Unknown History oral liquid (M-Dryl) epinephrine 0.3 mg/0.3 mL 0.3 mg (0.3 mL) IM Q5-15M PRN 10/05/24 Unknown Rx injection, auto-injector (EpiPen anaphylaxis #2 ea 2-Scout) linaclotide 290 mcg capsule 290 mcg PO QDAY #90 caps 10/13/24 10/21/24 Rx (Linzess) erenumab-aooe 70 mg/mL 70 mg subcut QMONTH 10/21/24 10/12/24 History subcutaneous auto-injector (Aimovig Autoinjector) hydroxyzine HCl 50 mg tablet 100 mg PO Q8H PRN nausea and 10/21/24 12/18/24 History vomiting lasmiditan 100 mg tablet (Reyvow) 100 mg PO PRN MIGRAINE 10/21/24 10/14/24 History albuterol sulfate 90 mcg/actuation 2 puff inhalation Q6H PRN 11/19/24 Unknown Rx aerosol inhaler shortness of breath or wheezing #8.5 grams ibuprofen 800 mg tablet 800 mg PO Q8H PRN pain #30 tabs 11/19/24 Unknown Rx blood sugar diagnostic (OneTouch #100 ea 12/02/24 Unknown Rx Verio test strips) cetirizine 10 mg tablet 10 mg PO DAILY PRN allergy 12/02/24 Unknown Rx symptoms #90 tabs lancets 30 gauge (OneTouch #200 ea 12/02/24 Unknown Rx UltraSoft 2 Lancet) acetaminophen 500 mg tablet 1,000 mg (2 x 500 mg) PO Q8 PRN 12/08/24 Unknown Rx (Tylenol Extra Strength) fever or pain #60 tabs lidocaine 5 % topical patch 1 patch topical QDAY PRN pain #30 12/08/24 Unknown Rx ea blood-glucose sensor (Dexcom G7 #1 ea 12/09/24 Unknown Rx Sensor device) dulaglutide 1.5 mg/0.5 mL 1.5 mg subcut FR 12/11/24 12/04/24 History subcutaneous pen injector (Trulicity) sumatriptan succinate 6 mg/0.5 mL 6 mg subcut Q12H PRN MIGRAINE 12/11/24 Unknown History subcutaneous pen injector tramadol 50 mg tablet 50 mg PO Q8H PRN pain 3 days #7 12/18/24 Unknown Rx tabs zolpidem 12.5 mg tablet,extended 12.5 mg PO QHS PRN insomnia 12/18/24 Unknown History release,multiphase (Ambien CR) triamcinolone acetonide 0.1 % 1 applic topical BID #30 grams 01/01/25 Unknown Rx topical cream aripiprazole 20 mg tablet 20 mg PO QHS PRN MOOD STABILIZER 01/02/25 Unknown History sumatriptan succinate 100 mg tablet See Rx Instructions PO .COMPLEX 01/11/25 Unknown Rx #12 tabs vibegron 75 mg tablet (Gemtesa) 75 mg PO QDAY #7 tabs 01/13/25 Unknown Rx nystatin 100,000 unit/mL oral 5 ml PO .qid #473 mL 01/14/25 Unknown Rx suspension docusate sodium 100 mg capsule 100 mg PO DAILY PRN constipation 01/25/25 Unknown Rx (Colace) #30 caps gabapentin 400 mg capsule 400 mg PO TID #90 caps 01/25/25 Unknown Rx pantoprazole 40 mg tablet,delayed 40 mg PO QDAY #90 tabs 01/25/25 Unknown Rx release meclizine 25 mg tablet 25 mg PO BID PRN motion sickness 02/11/25 Unknown Rx #30 tabs promethazine 25 mg rectal 25 mg OK Q6H PRN PRN for 02/11/25 Unknown Rx suppository (Promethegan) nausea/vomiting #12 supp Allergy/AdvReac Type Severity Reaction Status Date / Time bee venom protein (honey Allergy Severe Anaphylaxis Verified 02/16/25 10:06 bee) (bee sting) ziprasidone (From Geodon) Allergy Severe facial Verified 02/16/25 10:06 swelling adhesive tape Allergy Mild Rash Verified 02/16/25 10:06 latex Allergy Mild Rash Verified 02/16/25 10:06 Iodinated Contrast Media Allergy Hives Verified 02/16/25 10:06 ondansetron (From Zofran) Allergy Hives Verified 02/16/25 10:06 propranolol Allergy Angioedema Verified 02/16/25 10:06 midazolam (From Versed) AdvReac Severe Other Verified 02/16/25 10:06 Family History Other Autoimmune disorder Bleeding disorder Breast cancer CVA (cerebral vascular accident) Colon cancer Diabetes Heart disease Hypertension Myocardial infarction Ovarian cancer Thyroid disorder Surgical History History of vascular access device Port-A-Cath in place H/O hernia repair H/O wisdom tooth extraction H/O oophorectomy Hx of cholecystectomy H/O tubal ligation Social History adopted: No household members: children and none number of children: 2 current occupational status: unemployed pets and animals: No sexually active: No Smoking Status: Never smoker alcohol intake: never substance use type: does not use caffeine: No frequency: 3-4 times per week do you feel safe at home: Yes ROS ROS ED Review of Systems ROS Unobtainable: other Constitutional Constitutional ED: Reports lethargy; Denies chills, fever(s), sweats or weight loss Eyes Eyes: Denies blurry vision, change in vision or diplopia ENT ENT ED: Denies rhinorrhea or sore throat Cardiovascular Cardiovascular: Denies chest pain, orthopnea or racing heartbeat Respiratory/Chest Respiratory/Chest: Denies cough, dyspnea, dyspnea on exertion, orthopnea or sputum Gastrointestinal Gastrointestinal: Reports abdominal pain, nausea and vomiting; Denies diarrhea Genitourinary Genitourinary ED: Denies dysuria, hematuria or urinary frequency Musculoskeletal Musculoskeletal: Denies arthralgias, back pain, myalgias or neck pain Integumentary Denies abscess, Abrasions or rash Neurologic Neurologic: Denies headache(s) or weakness Psychiatric Psychiatric: Denies anxiety, depression or suicidal thoughts Endocrine Endocrinology: Denies polydipsia, polyphagia or polyuria Hematologic/Lymphatic Hematologic/Lymphatic: Denies easy bleeding, easy bruising or lymphadenopathy Allergic/Immunologic Allergic/Immunologic ED: Denies mouth swelling, tongue swelling or urticaria EXAM Physical Exam Const Vital Signs: 02/16/25 10:02 02/16/25 14:00 Temperature 98.4 F Temperature Source Oral Pulse Rate 117 H 101 H Respiratory Rate 16 20 H Blood Pressure 130/84 H 123/80 H Blood Pressure Mean 99 94 Pulse Ox 98 100 Oxygen Delivery Method Room Air Room Air Positive well nourished and well developed General Appearance ED: well developed and NAD HEENT Reports TM's clear and moist mucous membranes normocephalic and atraumatic; Negative for trauma or tenderness Tympanic Membrane ED: Yes TM's clear Eyes PERRL and EOMs intact bilaterally General Eye ED: Negative for pale conjunctiva or scleral icterus Neck no lymphadenopathy, supple and no JVD General: Negative for tenderness Chest Wall inspection of chest normal and palpation of chest normal Chest: Negative for tenderness Resp normal respiratory effort and clear to auscultation bilaterally Effort and Inspection: Negative for respiratory distress or pain with movement Auscultation: Negative for rhonchi, wheezes or diminished lung sounds Cardio regular rate, regular rhythm, S1 normal heart sound, S2 normal heart sound and no murmurs Peripheral Pulses: pulses 2+ throughout GI normal to inspection, nondistended, normoactive bowel sounds, soft to palpation, non-distended and no masses GI Narrative: Tenderness palpation over right lower quadrant with some guarding. There is no rebound, rigidity, or peritoneal signs. No mass palpated. No tenderness to the right upper quadrant. Back/Spine no CVA tenderness and no thoracic nor lumbar tenderness Extremity normal to inspection General Extremety ED: Negative for edema General Extremity: Negative for edema Neuro oriented x3, CN's II-XII intact bilaterally, no sensory deficits noted and gait normal Sensorium / Orientation: awake, alert, oriented to person, oriented to place and oriented to time Motor Exam: strength 5/5 throughout and strength abnormal Psych mental status grossly normal Skin no rashes or lesions noted and no wounds MDM MDM MDM Narrative Medical decision making narrative: Patient presents with abdominal pain since yesterday to the right lower quadrant. Gallbladder is already removed. The differential would be kidney stone versus UTI versus appendicitis or other abdominal pathology. IV established. She was medicated initially with Toradol and Reglan and morphine. CT scan of the abdomen pelvis showed no acute findings however the appendix was not visualized. Patient also had a pelvic ultrasound that showed no evidence of torsion. No acute process on that study. She continues to have pain and nausea therefore I ordered a CT scan of the abdomen pelvis with IV and p.o. contrast. She was given again 5 more milligrams of Reglan after which she vomited and then was given Phenergan IM. Discussed case with general surgeon on-call Dr. Sheffield who recommended obtaining the scan with IV contrast and what ever p.o. she can tolerate. Care of patient turned over to evening physician awaiting CT results and final disposition. Lab Data Attestation: I reviewed the patient's lab results. Labs: Laboratory Results - last 24 hr 02/16/25 02/16/25 02/16/25 10:12 10:27 10:38 WBC 8.1 RBC 3.62 L Hgb 9.4 L Hct 29.1 L MCV 80.4 L MCH 26.0 L MCHC 32.3 RDW Std Deviation 40.7 RDW Coeff of Millie 14.1 Plt Count 473 H MPV 8.2 Immature Gran % (Auto) 0.500 Neut % (Auto) 68.4 Lymph % (Auto) 17.0 L [place] % (Auto) 13.0 H Eos % (Auto) 0.5 Baso % (Auto) 0.6 Absolute Neuts (auto) 5.5 Absolute Lymphs (auto) 1.37 Nucleated RBC % 0 Polychromasia 1+ Sodium 138 Potassium 3.9 Chloride 100 Carbon Dioxide 28.0 Anion Gap 10 BUN 25 H Creatinine 0.72 Estim Creat Clear Calc 113.76 Est GFR (MDRD) Non-Af 113 BUN/Creatinine Ratio 34.7 H Glucose 119 H Lactic Acid < 1.0 Calcium 9.2 Total Bilirubin 0.50 AST 12 ALT 10 Alkaline Phosphatase 134 H Total Protein 6.2 Albumin 3.2 L Globulin 3.0 Albumin/Globulin Ratio 1.1 Serum , Qual NEGATIVE Urine Color Yellow Urine Clarity Cloudy Urine pH 8.0 Ur Specific [place] 1.015 Urine Protein Negative Urine Glucose (UA) Normal Urine Ketones 50 H Urine Occult Blood Negative Urine Nitrite Positive H Urine Bilirubin 1 H Urine Urobilinogen 1 H Ur Leukocyte Esterase 100 H Urine RBC 0 SEEN Urine WBC 0 SEEN Ur Squamous Epith Cells 0-5 SEEN Amorphous Sediment 2+ Urine Bacteria 1+ Urine Mucus 0 SEEN Radiography Diagnostic Testing: Clinical Impression(s) from Imaging Studies Abdomen/Pelvis CT 02/16/25 10:17 IMPRESSION: Small bilateral pleural effusions. These are unchanged. Status post cholecystectomy. Reading Location: [facility] Transvaginal US 02/16/25 11:35 IMPRESSION: Heterogeneous appearance of the uterus suggestive of fibroid change although no focal fibroid is seen. Status post left oophorectomy. Reading Location: [id number] Discharge Plan Triage Chief Complaint: Abd Pain ED Provider: Autumn Hernandez Dx/Rx/DC Orders Clinical Impression: Abdominal pain Prescriptions: No Action albuterol sulfate 90 mcg/actuation HFA aerosol inhaler 2 puff inhalation Q6H PRN (Reason: shortness of breath or wheezing) Qty: 8.5 0RF ibuprofen 800 mg tablet 800 mg PO Q8H PRN (Reason: pain) Qty: 30 0RF triamcinolone acetonide 0.1 % cream 1 applic topical BID Qty: 30 0RF Gemtesa 75 mg tablet 75 mg PO QDAY Qty: 7 0RF lamotrigine 200 mg tablet 200 mg PO BID Qulipta 60 mg tablet 60 mg PO DAILY hydroxyzine HCl 50 mg tablet 100 mg PO Q8H PRN (Reason: nausea and vomiting) Aimovig Autoinjector 70 mg/mL auto-injector 70 mg SUBCUT QMONTH Patient Comments: [NO ORIGINAL SIG] Reyvow 100 mg tablet 100 mg PO PRN sumatriptan succinate 6 mg/0.5 mL pen injector 6 mg SUBCUT Q12H PRN (Reason: MIGRAINE) Trulicity 1.5 mg/0.5 mL pen injector 1.5 mg subcut FR zolpidem [Ambien CR] 12.5 mg tablet,ext release multiphase 12.5 mg PO QHS PRN (Reason: insomnia) tramadol 50 mg tablet 50 mg PO Q8H PRN (Reason: pain) 3 Days Qty: 7 0RF aripiprazole 20 mg tablet 20 mg PO QHS PRN (Reason: MOOD STABILIZER) diphenhydramine HCl [M-Dryl] 12.5 mg/5 mL liquid 25 mg PO 4X/DAY PRN PRN (Reason: allergies) (DME) Dexcom G7 Business Improvement Manager Misc See Rx Instructions .Route Qty: 1 5RF Rx Instructions: As directed (DME) Dexcom G6 Transmitter Device See Rx Instructions .Route Qty: 1 5RF Rx Instructions: As directed epinephrine [EpiPen 2-Scout] 0.3 mg/0.3 mL auto-injector 0.3 mg IM Q5-15M PRN (Reason: anaphylaxis) Qty: 2 1RF Rx Instructions: do not exceed 3 doses per episode Linzess 290 mcg capsule 290 mcg PO QDAY Qty: 90 0RF cetirizine 10 mg tablet 10 mg PO DAILY PRN (Reason: allergy symptoms) Qty: 90 1RF (DME) lancets [OneTouch UltraSoft 2 Lancet] 30 gauge misc See Rx Instructions .Route Qty: 200 0RF Rx Instructions: Use once daily to check blood glucose level (DME) OneTouch Verio test strips Strip See Rx Instructions .Route Qty: 100 0RF Rx Instructions: Use one strip once per day to check blood glucose level acetaminophen [Tylenol Extra Strength] 500 mg tablet 1,000 mg PO Q8 PRN (Reason: fever or pain) Qty: 60 0RF lidocaine 5 % adhesive patch,medicated 1 patch topical QDAY PRN (Reason: pain) Qty: 30 2RF Rx Instructions: leave on most painful area for up to 12 hrs (DME) Dexcom G7 Sensor Device See Rx Instructions .Route Qty: 1 5RF Rx Instructions: As directed sumatriptan succinate 100 mg tablet See Rx Instructions PO .COMPLEX Qty: 12 0RF Rx Instructions: take 1 tab at onset of headache; if no relief, may repeat 1 tab after at least 2 hrs; max = 2 tabs/24 hrs PO nystatin 100,000 unit/mL suspension 5 ml PO .qid Qty: 473 0RF Rx Instructions: swish around mouth and let sit in mouth before discarding or swallowing. Use medication as prescribed for 48 hours after symptoms clear pantoprazole 40 mg tablet,delayed release (DR/EC) 40 mg PO QDAY Qty: 90 0RF docusate sodium [Colace] 100 mg capsule 100 mg PO DAILY PRN (Reason: constipation) Qty: 30 0RF gabapentin 400 mg capsule 400 mg PO TID Qty: 90 0RF meclizine 25 mg tablet 25 mg PO BID PRN (Reason: motion sickness) Qty: 30 1RF promethazine [Promethegan] 25 mg suppository 25 mg OK Q6H PRN PRN (Reason: for nausea/vomiting) Qty: 12 0RF Primary Care Provider: Rashawn Yip Referrals: Rashawn Yip PA [Primary Care Provider] - Print Language: [place]
[2025-02-16 10:27] LABS: Hematocrit 29.1 % (37-47); Hemoglobin 9.4 g/dL (12.0-15.0); Immature Granulocytes Count 0.040 X10^3/uL (0.0-0.0); Mean Corp Hgb Conc 32.3 g/dL (32-36); Mean Corpuscular Volume 80.4 fL (81-99); Mean Platelet Vol. 8.2 fl (6.2-12.0); NRBC Flagged by Analyzer 0 % (0-5); POSITIVE MORPHOLOGY YES; Platelet Count 473 K/mm3 (150-450); RBC Distribution Width CV 14.1 % (11.6-14.6); RBC Distribution Width SD 40.7 fl (35.1-43.9); Red Blood Count 3.62 M/mm3 (4.2-5.4); White Blood Count 8.1 K/mm3 (4.4-11.0)
[2025-02-16 10:34] LABS: Differential Indicated SCAN CRITERIA MET
[2025-02-16] MEDS: 0.9% Normal Saline (1000mL) 1,000 ML 125 ML IV (10:35)
[2025-02-16 10:37] LABS: Internal QC Validated? YES +Cl - CLEAR BKGD; Pregnancy, Serum, hCG Quali. NEGATIVE Negative; Record Kit Lot#, Serum Preg. 962302
[2025-02-16 10:44] LABS: Mucous, Urine 0 SEEN /hpf (<or=2+); Red Blood Cells-Urine 0 SEEN /hpf (0-5)
[2025-02-16 10:51] LABS: Color, Urine Yellow (Yellow); Glucose, Dipstick Normal (Normal); Ketone-Dipstick 50 mg/dl (Negative); Leukocyte Esterase-Dipstick 100 /ul (Negative); Nitrite-Dipstick Positive (Negative); Occult Blood-Urine Negative /ul (Negative); Protein-Dipstick Negative (Negative); Specific Gravity, Urine 1.015 (1.002-1.030)
[2025-02-16 10:52] LABS: Urine Bilirubin Dipstick 1 mg/dL (Negative)
[2025-02-16 10:54] LABS: Squamous Epithelial Cells - UA 0-5 SEEN /hpf (5-10)
[2025-02-16 10:55] LABS: AST(SGOT) 12 U/L (<=31); Alanine Aminotransfer ALT/SGPT 10 U/L (<=34); Albumin, Serum 3.2 g/dL (3.5-5.0); Alkaline Phosphatase 134 U/L (35-104); Anion Gap 10 (5-15); BUN 25 mg/dL (4-19); BUN/Creat Ratio 34.7 RATIO (10-20); Calcium,Total 9.2 mg/dL (7.6-11.0); Carbon Dioxide 28.0 mmol/L (21.0-32.0); Chloride 100 mmol/L (98-108); Estimated Creatinine Clearance 113.76 ml/min (50-250); Globulin 3.0 g/dL (2.2-4.2); Glucose 119 mg/dL (70-99); Potassium 3.9 mmol/L (3.3-5.1)
[2025-02-16 11:15] LABS: Polychromasia 1+
--- NOTE | 2025-02-16 11:35 | US_ITS ---
PROCEDURE: TRANSVAGINAL NON- 02/16/2025 REASON FOR EXAM: RIGHT LOWER ABD PAIN, PELVIC PAIN TECHNIQUE: TRANSVAGINAL NON- COMPARISON: None FINDINGS: LMP: January 26, 2025 Measurements: Uterus: 8.1 cm x 4.8 cm x 3.9 cm with a volume of 79.12 mL Endometrial Thickness: 2.6 mm. It is hyperechoic. Right Ovary: 2.9 cm x 2.4 cm x 1.6 cm with a volume of 6.16 mL. Left Ovary: Patient is status post left oophorectomy. Uterus: Heterogeneous echotexture of the myometrium suggestive of fibroid change although no focal fibroid is seen. Endometrium: Unremarkable. Right ovary: Normal size and echotexture. Left ovary: Surgically absent. Other: No large pelvic mass identified. US/Transvaginal Non- IMPRESSION: Heterogeneous appearance of the uterus suggestive of fibroid change although no focal fibroid is seen. Status post left oophorectomy. Reading Location: [id number]
[2025-02-16] MEDS: DiphenhydrAMINE 50 MG/ML Syringe 25 MG IV (13:30)
[2025-02-16 14:00] VITALS: BP 123/80; PULSE 101; RESP 20; O2SAT 100
[2025-02-16] MEDS: proMETHazine 25 MG/ML Syringe 12.5 MG IM (14:01)
--- NOTE | 2025-02-16 15:45 | CT_ITS ---
PROCEDURE: CT ABDOMEN/PELVIS WITH CONTRAST 02/16/2025 REASON FOR EXAM: RLQ ABDOMINAL PAIN TECHNIQUE: CT ABDOMEN/PELVIS WITH CONTRAST. Coronal and Sagittal reconstruction series were provided. One or more dose reduction techniques were used (e.g., Automated exposure control, adjustment of the mA and/or kV according to patient size, use of iterative reconstruction technique. RADIATION DOSE SUMMARY: DLP: 1251.39 mGycm COMPARISON: Abdominal CT earlier today 02/16/2025. FINDINGS: Lung bases: Small bibasilar pleural effusions, no significant change. Liver: Within normal limits. Gallbladder: Surgically absent. Spleen: Within normal limits. Pancreas: Within normal limits. Adrenals: Unremarkable. Kidneys: Normal, symmetric enhancement. No urolithiasis or hydronephrosis. Bladder: Unremarkable. Reproductive Organs: Unremarkable uterus and right ovary. Left ovary appears surgically absent. Bowel: No evidence of obstruction. Normal appendix. Several mildly prominent loops of fluid-filled mid to distal small bowel and mild segmental wall thickening of the ascending, transverse and descending colon with fluid throughout, suggestive of enteritis/enterocolitis with diarrheal illness. Unchanged. Lymph nodes: No suspicious lymph node enlargement. Vasculature: Normal course and caliber of the abdominal aorta and IVC. Peritoneum / Retroperitoneum: No ascites or free air. Bones: No significant abnormality. CT/Abdomen/Pelvis WITH Contrast IMPRESSION: 1. Mildly prominent fluid-filled loops of mid to distal small bowel and majorit y of the colon, likely reflecting Enterocolitis. No evidence of appendicitis. 2. Small bibasilar pleural effusions, no significant change. Reading Location: [id number]
[2025-02-16 16:00] VITALS: BP 121/87; PULSE 104; RESP 16; O2SAT 97
[2025-02-16 17:38] VITALS: BP 128/90; PULSE 100; O2SAT 94
[2025-02-16 18:19] VITALS: BP 128/90; PULSE 100; RESP 22; TEMP 36.6; O2SAT 94
--- NOTE | 2025-02-16 18:48 | CM.ED ---
Social Work Reason for visit: ED Care Plan SW met with patient due to patient having a care plan. Patient stated that she has been following up with specialist, her psychiatrist and her counselor. Patient reports to attending all appointments as scheduled. Patient had cousin with her whom she states is her support person. Hallie Costa, SENIOR COURT OFFICE ASSISTANT, MORTGAGE COUNSELOR
== END 2025-02-16 18:21 | disposition home or self-care (01) ==
PROVIDERS: Emergency Provider Emergency Medicine; PCP Physician Assistant; Visit Provider Emergency Medicine
DX: R10.9 Unspecified abdominal pain (principal); E11.9 Type 2 diabetes mellitus without complications; Z86.711 Personal history of pulmonary embolism; Z86.718 Personal history of other venous thrombosis and embolism; Z90.49 Acquired absence of other specified parts of digestive tract; K21.9 Gastro-esophageal reflux disease without esophagitis
CPT/HCPCS: 36591; 74176; 74177; 76830; 80053; 81001; 83605; 84703; 85025; 87077; 87086; 87088; 87186; 96361; 96372; 96374; 96375; 96376; 99285; Q9967; A4216

== ENCOUNTER 2025-03-04 14:56 | Inpatient (IN) | payer MEDICAID, SELFPAY ==
[2025-03-04] VITALS (8 sets, daily range): BP systolic 97–120; BP diastolic 65–78; PULSE 78–110; RESP 12–19; TEMP 36.4–36.8; O2SAT 96–99; BMI 37.0; BMI 36.7
--- NOTE | 2025-03-04 15:15 | EKG12_ITS ---
Test Reason : DIZZY Blood Pressure : */* mmHG Vent. Rate : 105 BPM Atrial Rate : 105 BPM P-R Int : 178 ms QRS Dur : 98 ms QT Int : 302 ms P-R-T Axes : 59 29 7 degrees QTcB Int : 399 ms Sinus tachycardia Nonspecific T wave abnormality Abnormal ECG Confirmed by ADRIANA HOLLIS, KAYLYNN ([id number]), slot editor FAWN HAYWOOD ([id number]) on 03/08/2025 6:37:25 AM Referred By: Confirmed By: KAYLYNN WRIGHT MD
--- NOTE | 2025-03-04 15:17 | EX.ED.DYSGE1 ---
HPI <MJ Baca - Last Filed: 03/04/25 18:25> History of Present Illness Chief Complaint: Dizziness Narrative Narrative: 34-year-old female with PMH of migraines, factor V Leiden, DVT/PE, PCOS, anxiety, depression presents with several complaints. She states yesterday she developed pain under her left rib cage that is constant. Nothing makes it better or worse. She denies fever, chills, cough, shortness of breath. She has a history of factor V Leiden and DVT/PE but stopped her Xarelto about 3 months ago after discussion with Dr. Ware. She states in the last 2 days whenever she stands up she also feels weak in the whole stomach. She feels weak all over, not on one side of her body. PFSH <MJ Baca - Last Filed: 03/04/25 18:25> [facility] Medical History (Updated 03/04/25 @ 18:25 by MJ Baca) Hx of substance abuse Bipolar disorder Kidney stones GERD (gastroesophageal reflux disease) Non-smoker Easy bruising Dietary restriction Implantable loop recorder present Wears glasses Anxiety MRSA infection Substance abuse History of steroid therapy Diabetes Injury of head and neck History of IBS Gastric reflux Neuropathy delivery delivered Arthritis Prolonged QT interval PCOS (polycystic ovarian syndrome) Factor V Leiden Anxiety Depression Pulmonary embolism DVT (deep venous thrombosis) TIA (transient ischemic attack) Ovarian cyst Home Medications ?Medication ?Instructions ?Recorded ?Last Taken ?Type blood-glucose,business continuity planning director,cont #1 ea 06/09/24 Unknown Rx (Dexcom G7 Teaching Assistant) blood-glucose transmitter (Dexcom #1 ea 07/09/24 Unknown Rx G6 Transmitter device) atogepant 60 mg tablet (Qulipta) 60 mg PO DAILY 07/14/24 10/21/24 History lamotrigine 200 mg tablet 200 mg PO BID 07/14/24 10/21/24 History epinephrine 0.3 mg/0.3 mL 0.3 mg (0.3 mL) IM Q5-15M PRN 10/05/24 Unknown Rx injection, auto-injector (EpiPen anaphylaxis #2 ea 2-Scout) lasmiditan 100 mg tablet (Reyvow) 100 mg PO PRN MIGRAINE 10/21/24 10/14/24 History albuterol sulfate 90 mcg/actuation 2 puff inhalation Q6H PRN 11/19/24 Unknown Rx aerosol inhaler shortness of breath or wheezing #8.5 grams ibuprofen 800 mg tablet 800 mg PO Q8H PRN pain #30 tabs 11/19/24 Unknown Rx blood sugar diagnostic (OneTouch #100 ea 12/02/24 Unknown Rx Verio test strips) cetirizine 10 mg tablet 10 mg PO DAILY PRN allergy 12/02/24 Unknown Rx symptoms #90 tabs lancets 30 gauge (OneTouch #200 ea 12/02/24 Unknown Rx UltraSoft 2 Lancet) acetaminophen 500 mg tablet 1,000 mg (2 x 500 mg) PO Q8 PRN 12/08/24 Unknown Rx (Tylenol Extra Strength) fever or pain #60 tabs blood-glucose sensor (Dexcom G7 #1 ea 12/09/24 Unknown Rx Sensor device) sumatriptan succinate 6 mg/0.5 mL 6 mg subcut Q12H PRN MIGRAINE 12/11/24 Unknown History subcutaneous pen injector zolpidem 12.5 mg tablet,extended 12.5 mg PO QHS PRN insomnia 12/18/24 Unknown History release,multiphase (Ambien CR) aripiprazole 20 mg tablet 15 mg PO QHS MOOD STABILIZER 01/02/25 Unknown History sumatriptan succinate 100 mg tablet See Rx Instructions PO .COMPLEX 01/11/25 Unknown Rx #12 tabs pantoprazole 40 mg tablet,delayed 40 mg PO QDAY #90 tabs 01/25/25 Unknown Rx release promethazine 25 mg rectal 25 mg [place] Q6H PRN PRN for 02/11/25 Unknown Rx suppository (Promethegan) nausea/vomiting #12 supp linaclotide 145 mcg capsule 145 mcg PO QDAY #30 caps 02/26/25 Unknown Rx (Linzess) docusate sodium 100 mg capsule 100 mg PO DAILY PRN constipation 03/01/25 Unknown Rx (Colace) #30 caps gabapentin 400 mg capsule 400 mg PO TID #90 caps 03/01/25 Unknown Rx dulaglutide 1.5 mg/0.5 mL 1.5 mg subcut FR 03/04/25 Unknown History subcutaneous pen injector (Trulicity) Allergy/AdvReac Type Severity Reaction Status Date / Time bee venom protein (honey Allergy Severe Anaphylaxis Verified 02/26/25 15:52 bee) (bee sting) ziprasidone (From Geodon) Allergy Severe facial Verified 02/26/25 15:52 swelling adhesive tape Allergy Mild Rash Verified 02/26/25 15:52 latex Allergy Mild Rash Verified 02/26/25 15:52 Iodinated Contrast Media Allergy Hives Verified 02/26/25 15:52 ondansetron (From Zofran) Allergy Hives Verified 02/26/25 15:52 propranolol Allergy Angioedema Verified 02/26/25 15:52 midazolam (From Versed) AdvReac Severe Other Verified 02/26/25 15:52 Family History Other Autoimmune disorder Bleeding disorder Breast cancer CVA (cerebral vascular accident) Colon cancer Diabetes Heart disease Hypertension Myocardial infarction Ovarian cancer Thyroid disorder Surgical History History of vascular access device Port-A-Cath in place H/O hernia repair H/O wisdom tooth extraction H/O oophorectomy Hx of cholecystectomy H/O tubal ligation Social History adopted: No household members: children and none number of children: 2 current occupational status: unemployed pets and animals: No sexually active: No Smoking Status: Never smoker alcohol intake: never substance use type: does not use caffeine: No frequency: 3-4 times per week do you feel safe at home: Yes ROS <MJ Baca - Last Filed: 03/04/25 18:25> ROS ED ROS Narrative Constitutional: Positive for malaise. No fever or chills. CVS: Negative for palpitations, syncope. Respiratory: Negative for shortness of breath, cough. GI: Negative for abdominal pain, nausea, vomiting. EXAM <MJ Baca - Last Filed: 03/04/25 18:25> Physical Exam Narrative Exam Narrative: CONST: Patient appears pale lying in bed in no distress. EYES: Normal inspection. NECK: Normal inspection. RESP: No respiratory distress, CTAB. CVS: Regular rate and rhythm, no murmur, no gallop. ABD: Soft and nontender, no guarding or rebound, nondistended. Slightly tender left upper abdomen/under the ribs. Back: Normal inspection. SKIN: Color normal, no rash, warm, dry, intact. EXTREMITIES: Normal appearance, poor effort and strength exam but she can lift all extremities off the bed, equal investigation division lieutenant strength. 2+ radial and DP pulses. NEURO: Alert and answering questions appropriately. PSYCH: Normal affect. Const Vital Signs: 03/04/25 15:00 03/04/25 16:11 03/04/25 17:00 Temperature 97.6 F L Temperature Source Oral Pulse Rate 110 H 107 H 82 Respiratory Rate 14 19 H 18 Blood Pressure 120/72 111/76 97/65 Blood Pressure Mean 88 87 75 Pulse Ox 99 99 99 Oxygen Delivery Method Room Air Room Air Room Air 03/04/25 17:13 Temperature Temperature Source Pulse Rate 81 Respiratory Rate 12 Blood Pressure 97/65 Blood Pressure Mean 75 Pulse Ox 99 Oxygen Delivery Method Room Air <Dr. Colette Stevens MD - Last Filed: 03/04/25 20:33> Physical Exam Const Vital Signs: 03/04/25 15:00 03/04/25 16:11 03/04/25 17:00 Temperature 97.6 F L Temperature Source Oral Pulse Rate 110 H 107 H 82 Respiratory Rate 14 19 H 18 Blood Pressure 120/72 111/76 97/65 Blood Pressure Mean 88 87 75 Pulse Ox 99 99 99 Oxygen Delivery Method Room Air Room Air Room Air 03/04/25 17:13 Temperature Temperature Source Pulse Rate 81 Respiratory Rate 12 Blood Pressure 97/65 Blood Pressure Mean 75 Pulse Ox 99 Oxygen Delivery Method Room Air MDM <MJ Baca - Last Filed: 03/04/25 18:25> [facility] MDM Narrative Medical decision making narrative: Differential includes but not limited to recurrent PE, ACS, pneumonia, electrolyte derangement, UTI 34-year-old female who presents with generalized weakness and left rib pain x 2 days. She appears tired but nontoxic. She is tachycardic at 110 with otherwise normal vital signs. Heart sounds regular. Lungs clear. Mildly tender on her left rib cage but has no other abdominal tenderness. With her history of recurrent PEs and her no longer on anticoagulation and tachycardia the main concern is to rule out PE. She will be premedicated for IV contrast allergy with Solu-Medrol and Benadryl. Labs show WBC at 13.6 and hemoglobin of 8.7 which has been slowly trending down over the last few months. Sodium is 130. BUN 53, creatinine 1.82 (previously 25/0.72) so this is consistent with GERA. Glucose is 150 with normal gap. Serum is negative. EKG is sinus tachycardia without ischemic changes, troponin 30 with delta 23. She does not have ACS and these may be slightly elevated due to the GERA. CTA shows no PE but there are small bilateral pleural effusions with ground glass densities suggestive of pulmonary edema so I did not give further fluids. Due to her fatigue a viral swab was obtained and is negative for COVID/flu/RSV. With her GERA and significant weakness she states she is having difficulty ambulating and has fallen several times. I discussed the case with the hospitalist. Patient seen and evaluated with RAMIREZ. I personally interviewed and examined the patient. I was involved in all aspects of patient's orders, interpretation of results, and treatment. In brief patient is a 34-year-old female presenting to the emergency department for reported weakness in her legs that has been progressively worsening. States that today it was so bad that she fell to the ground. Denies any injuries from this. She is also reporting left sided chest pain underneath her breast that started yesterday as well. States has been constant since it started. Is not pleuritic in nature. Denies any shortness of breath. Denies any other chest pain. Does not radiate anywhere. Has a history of pulmonary emboli and factor V Leiden, states that she has stopped taking her oral anticoagulation that she was previously on for the recurrent PE. Denies abdominal pain, nausea, vomiting. Physcial exam: Vital signs: Reviewed General: Alert and orientedx3. No acute distress. Pale appearing. HEENT: Head is normocephalic and atraumatic, sinuses nontender, pupils equal round and reactive. Nares are patent. Oropharynx and throat exams normal. Neck: Supple without lymphadenopathy nontender Cardiovascular: Mildly tachycardic rate regular rhythm, no murmurs. No rubs or gallops. Normal S1 and S2 Respiratory: Clear to auscultation bilaterally. No wheezes, rales, rhonchi Abdominal: Soft and nontender. Normal bowel sounds. No guarding or rebound. Nonsurgical abdomen Extremities: No tenderness. No bruising. Normal range of motion. Normal sensation. Skin: No rash or redness. Neurological: Cranial nerves II through XII are grossly intact. Normal strength and sensation in all extremities. Normal cerebellar function. Normal reflexes in bilateral lower extremities. The rest of the physical exam is unremarkable MDM: With the patient's tachycardia and left-sided chest pain underneath the breast, history of recurrent PEs and no longer on Xarelto, will give the patient contrast dye prep and CTA chest to rule out pulmonary embolism. Will obtain labs as well with the generalized weakness. Neuroexam was normal with 5 out of 5 strength in bilateral lower extremities. Sensation was intact. Normal reflexes. No recent viral illness suspected transverse myelitis. No back pain. History & Record Review Discussion w/independent historian: Patient Additional record(s) reviewed:: Prior ED visit and Prior labs Lab Data Attestation: I reviewed the patient's lab results. Labs: Laboratory Results - last 24 hr 03/04/25 03/04/25 16:05 17:11 WBC 13.6 H RBC 3.34 L Hgb 8.7 L Hct 26.0 L MCV 77.8 L MCH 26.0 L MCHC 33.5 RDW Std Deviation 44.7 H RDW Coeff of Millie 15.9 H Plt Count 329 MPV 8.1 Immature Gran % (Auto) 0.400 Neut % (Auto) 79.9 H Lymph % (Auto) 12.9 L Hernando % (Auto) 4.9 Eos % (Auto) 1.5 Baso % (Auto) 0.4 Absolute Neuts (auto) 10.9 H Absolute Lymphs (auto) 1.76 Nucleated RBC % 0 Differential Comment SCANNED Platelet Estimate ADEQUATE Sodium 130 L Potassium 4.2 Chloride 98 Carbon Dioxide 20.3 L Anion Gap 12 BUN 53 H Creatinine 1.82 H Estim Creat Clear Calc 45.00 L Est GFR (MDRD) Non-Af 37 L BUN/Creatinine Ratio 29.1 H Glucose 150 H Calcium 8.2 Iron 17 L TIBC 109 L Iron Saturation 15.6 Unsaturated IBC 92 L Ferritin 208 Troponin T High Sens 30 H D Troponin T Hi Sens 2 Hr 23 H NT pro BNP II 421 Vitamin B12 1125 H Procalcitonin 0.39 H Serum , Qual NEGATIVE Radiography Diagnostic Testing: Clinical Impression(s) from Imaging Studies Chest CTA 03/04/25 17:20 IMPRESSION: No evidence of pulmonary embolism. Small left and trace right pleural effusions with ground-glass densities suggestive of pulmonary edema. Reading Location: [facility] EKG Initial EKG: Attestation: I personally reviewed and interpreted this EKG as follows: Interpretation: No Acute Injury Pattern and Sinus Tachycardia Comments: Sinus tachycardia at 105 bpm Nonspecific T wave changes No STEMI <Dr. Colette Stevens MD - Last Filed: 03/04/25 20:33> [facility] MDM Narrative Medical decision making narrative: Differential includes but not limited to recurrent PE, ACS, pneumonia, electrolyte derangement, UTI 34-year-old female who presents with generalized weakness and left rib pain x 2 days. She appears tired but nontoxic. She is tachycardic at 110 with otherwise normal vital signs. Heart sounds regular. Lungs clear. Mildly tender on her left rib cage but has no other abdominal tenderness. With her history of recurrent PEs and her no longer on anticoagulation and tachycardia the main concern is to rule out PE. She will be premedicated for IV contrast allergy with Solu-Medrol and Benadryl. Labs show WBC at 13.6 and hemoglobin of 8.7 which has been slowly trending down over the last few months. Sodium is 130. BUN 53, creatinine 1.82 (previously 25/0.72) so this is consistent with GERA. Glucose is 150 with normal gap. Serum is negative. EKG is sinus tachycardia without ischemic changes, troponin 30 with delta 23. She does not have ACS and these may be slightly elevated due to the GERA. CTA shows no PE but there are small bilateral pleural effusions with ground glass densities suggestive of pulmonary edema so I did not give further fluids. Due to her fatigue a viral swab was obtained and is negative for COVID/flu/RSV. With her GERA and significant weakness she states she is having difficulty ambulating and has fallen several times. I discussed the case with the hospitalist. Patient seen and evaluated with RAMIREZ. I personally interviewed and examined the patient. I was involved in all aspects of patient's orders, interpretation of results, and treatment. In brief patient is a 34-year-old female presenting to the emergency department for reported weakness in her legs that has been progressively worsening. States that today it was so bad that she fell to the ground. Denies any injuries from this. She is also reporting left sided chest pain underneath her breast that started yesterday as well. States has been constant since it started. Is not pleuritic in nature. Denies any shortness of breath. Denies any other chest pain. Does not radiate anywhere. Has a history of pulmonary emboli and factor V Leiden, states that she has stopped taking her oral anticoagulation that she was previously on for the recurrent PE. Denies abdominal pain, nausea, vomiting. Physcial exam: Vital signs: Reviewed General: Alert and orientedx3. No acute distress. Pale appearing. HEENT: Head is normocephalic and atraumatic, sinuses nontender, pupils equal round and reactive. Nares are patent. Oropharynx and throat exams normal. Neck: Supple without lymphadenopathy nontender Cardiovascular: Mildly tachycardic rate regular rhythm, no murmurs. No rubs or gallops. Normal S1 and S2 Respiratory: Clear to auscultation bilaterally. No wheezes, rales, rhonchi Abdominal: Soft and nontender. Normal bowel sounds. No guarding or rebound. Nonsurgical abdomen Extremities: No tenderness. No bruising. Normal range of motion. Normal sensation. Skin: No rash or redness. Neurological: Cranial nerves II through XII are grossly intact. Normal strength and sensation in all extremities. Normal cerebellar function. Normal reflexes in bilateral lower extremities. The rest of the physical exam is unremarkable MDM: With the patient's tachycardia and left-sided chest pain underneath the breast, history of recurrent PEs and no longer on Xarelto, will give the patient contrast dye prep and CTA chest to rule out pulmonary embolism. Will obtain labs as well with the generalized weakness. Neuroexam was normal with 5 out of 5 strength in bilateral lower extremities. Sensation was intact. Normal reflexes. No recent viral illness suspected transverse myelitis. No back pain. Labs remarkable for an GERA. Slightly elevated troponins but downtrending. Likely mild elevation due to GERA. Patient states she is feeling too weak to ambulate. Will admit to hospitalist for GERA and frequent falls. Lab Data Labs: Laboratory Results - last 24 hr 03/04/25 03/04/25 16:05 17:11 WBC 13.6 H RBC 3.34 L Hgb 8.7 L Hct 26.0 L MCV 77.8 L MCH 26.0 L MCHC 33.5 RDW Std Deviation 44.7 H RDW Coeff of Millie 15.9 H Plt Count 329 MPV 8.1 Immature Gran % (Auto) 0.400 Neut % (Auto) 79.9 H Lymph % (Auto) 12.9 L Hernando % (Auto) 4.9 Eos % (Auto) 1.5 Baso % (Auto) 0.4 Absolute Neuts (auto) 10.9 H Absolute Lymphs (auto) 1.76 Nucleated RBC % 0 Differential Comment SCANNED Platelet Estimate ADEQUATE Sodium 130 L Potassium 4.2 Chloride 98 Carbon Dioxide 20.3 L Anion Gap 12 BUN 53 H Creatinine 1.82 H Estim Creat Clear Calc 45.00 L Est GFR (MDRD) Non-Af 37 L BUN/Creatinine Ratio 29.1 H Glucose 150 H Calcium 8.2 Iron 17 L TIBC 109 L Iron Saturation 15.6 Unsaturated IBC 92 L Ferritin 208 Troponin T High Sens 30 H D Troponin T Hi Sens 2 Hr 23 H NT pro BNP II 421 Vitamin B12 1125 H Procalcitonin 0.39 H Serum , Qual NEGATIVE Radiography Diagnostic Testing: Clinical Impression(s) from Imaging Studies Chest CTA 03/04/25 17:20 IMPRESSION: No evidence of pulmonary embolism. Small left and trace right pleural effusions with ground-glass densities suggestive of pulmonary edema. Reading Location: [facility] Discharge Plan Dx/Rx/DC Orders Clinical Impression: Anemia, GERA (acute kidney injury), Acute hyponatremia, Generalized weakness, Pulmonary edema Disposition Disposition: Acute Care Hospital [facility] Discharge Date/Time: 03/04/25 18:59
[2025-03-04] MEDS: 0.9% Normal Saline (1000mL) 1,000 ML 1000 ML IV (16:05)
[2025-03-04] MEDS: DiphenhydrAMINE 50 MG/ML Syringe IV (16:06)
[2025-03-04 16:25] LABS: Hematocrit 26.0 % (37-47); Hemoglobin 8.7 g/dL (12.0-15.0); Immature Granulocytes Count 0.050 X10^3/uL (0.0-0.0); Mean Corp Hgb Conc 33.5 g/dL (32-36); Mean Corpuscular Volume 77.8 fL (81-99); Mean Platelet Vol. 8.1 fl (6.2-12.0); NRBC Flagged by Analyzer 0 % (0-5); POSITIVE MORPHOLOGY YES; Platelet Count 329 K/mm3 (150-450); RBC Distribution Width CV 15.9 % (11.6-14.6); RBC Distribution Width SD 44.7 fl (35.1-43.9); Red Blood Count 3.34 M/mm3 (4.2-5.4); White Blood Count 13.6 K/mm3 (4.4-11.0)
[2025-03-04 16:27] LABS: Differential Indicated SCAN CRITERIA MET
[2025-03-04 16:55] LABS: Internal QC Validated? YES +Cl - CLEAR BKGD; Pregnancy, Serum, hCG Quali. NEGATIVE Negative; Record Kit Lot#, Serum Preg. 964736
[2025-03-04 17:02] LABS: Anion Gap 12 (5-15); BUN 53 mg/dL (4-19); BUN/Creat Ratio 29.1 RATIO (10-20); Calcium,Total 8.2 mg/dL (7.6-11.0); Carbon Dioxide 20.3 mmol/L (21.0-32.0); Chloride 98 mmol/L (98-108); Estimated Creatinine Clearance 45.00 ml/min (50-250); Glucose 150 mg/dL (70-99); Potassium 4.2 mmol/L (3.3-5.1)
[2025-03-04 17:18] LABS: Troponin T High Sensitivity 30 ng/L (<=14)
--- NOTE | 2025-03-04 17:20 | CT_ITS ---
PROCEDURE: CTA CHEST W/WO CONTRAST 03/04/2025 REASON FOR EXAM: CHEST PAIN TECHNIQUE: CTA CHEST W/WO CONTRAST Multiplanar Sagittal and Coronal images were obtained. CONTRAST: Isovue 370 VOLUME: 100 mL One or more dose reduction techniques were used (e.g., Automated exposure control, adjustment of the mA and/or kV according to patient size, use of iterative reconstruction technique). RADIATION DOSE SUMMARY: CTDlvol: 12.29 mGy DLP: 359.68 mGycm COMPARISON: None. # of known CTs in the past 12 months: None. # of known Cardiac Nuclear Medicine Studies in the past 12 months: None. FINDINGS: Thoracic Aorta: No aneurysm. No dissection. Heart: No cardiomegaly. No atherosclerotic calcifications of the coronary arteries. Pulmonary Vessels: No embolism. Hardware: Monitor electrodes overlie the chest right internal jugular catheter terminates at the cavoatrial junction. Lymph nodes: No lymphadenopathy. Lungs and Airways: Small left and trace right pleural effusions with posterior ground-glass densities may represent pulmonary edema. Pleura: Small left and trace right pleural effusion. Upper Abdomen: Unremarkable. Bones: No acute bony abnormalities. CT/CTA Chest W/WO Contrast IMPRESSION: No evidence of pulmonary embolism. Small left and trace right pleural effusions with ground-glass densities sugges tive of pulmonary edema. Reading Location: [facility]
[2025-03-04 18:02] LABS: Troponin T High Sens 2 HR 23 ng/L (<=14)
[2025-03-04 18:04] LABS: Differential Comment SCANNED
--- NOTE | 2025-03-04 18:09 | HP.PCM.HOS_ITS ---
HPI - General General Date of Admission: 03/04/25 Date of Service: 03/04/25 Chief Complaint: Left-sided chest/rib discomfort, nausea/vomiting and weakness [facility] Narrative ERIN TORRES, is a 34 F who presented to [facility] ED on 03/04/2025 with left-sided chest/rib discomfort, nausea/vomiting and weakness. Medical history is significant for factor V Leiden, DVT/PE not currently on anticoagulation, chronic abdominal pain, migraines, anxiety/depression and class II obesity. She has been seen here in the ED many times in the past and most recently saw her PCP on 02/26. She had various concerns then including her chronic abdominal pain, diarrhea, fatigue and intermittent dizziness. PCP noted that all of these things are fairly chronic concerns for her and is difficult to get an accurate history from her. In the ED today she was mildly tachycardic at presentation but afebrile and otherwise hemodynamically stable on room air at rest. However labs were notable for sodium 130, creatinine 1.82 (baseline around 0.7), BUN 53, WBC count 13, hemoglobin 8.7 (baseline 9-11). Was noted that patient has been off anticoagulation for the past 3 months or so after discussion with her PCP regarding this. CTA chest here showed no PE, did show small left and trace right pleural effusions with ground glass densities concerning for pneumonia versus pulmonary edema. Given her GERA and other symptoms, hospitalist was contacted for admission. I saw the patient at bedside in the ED. Patient was somewhat lethargic and fatigued appearing but was otherwise sitting up in bed and answering questions appropriately for me. Noted that she continued to have left-sided pain just under the ribs, similar to the past few days. Denied any fevers or chills. States her appetite has been decreased in the past several days. No other acute concerns currently. Will be admitted for further management. [facility] Medical History (Updated 03/04/25 @ 20:[address] Jose Cardona, ) Hx of substance abuse Bipolar disorder Kidney stones GERD (gastroesophageal reflux disease) Non-smoker Easy bruising Dietary restriction Implantable loop recorder present Wears glasses Anxiety MRSA infection Substance abuse History of steroid therapy Diabetes Injury of head and neck History of IBS Gastric reflux Neuropathy delivery delivered Arthritis Prolonged QT interval PCOS (polycystic ovarian syndrome) Factor V Leiden Anxiety Depression Pulmonary embolism DVT (deep venous thrombosis) TIA (transient ischemic attack) Ovarian cyst Home Medications ?Medication ?Instructions ?Recorded ?Last Taken ?Type blood-glucose,spiritual care coordinator,cont #1 ea 06/09/24 Unknown Rx (Dexcom G7 Health Concierge) blood-glucose transmitter (Dexcom #1 ea 07/09/24 Unkno wn Rx G6 Transmitter device) atogepant 60 mg tablet (Qulipta) 60 mg PO DAILY 10/21/24 History lamotrigine 200 mg tablet 200 mg PO BID 07/14/2410/21 History epinephrine 0.3 mg/0.3 mL 0.3 mg (0.3 mL) IM Q5-15M GA N 10/05/24 Unknown Rx injection, auto-injector (EpiPen anaphylaxis #2 ea 2-Scout) lasmiditan 100 mg tablet (Reyvow) 100 mg PO PRN MIGRAI NE 10/21/24 10/14/24 History albuterol sulfate 90 mcg/actuation 2 puff inhalation Q 6H PRN 11/19/24 Unknown Rx aerosol inhaler shortness of breath or wheez ing #8.5 grams ibuprofen 800 mg tablet 800 mg PO Q8H PRN pain #30 t abs 11/19/24 Unknown Rx blood sugar diagnostic (OneTouch #100 ea 12/02/24 Unkn own Rx Verio test strips) cetirizine 10 mg tablet 10 mg PO DAILY PRN allergy 0 12/02/24 Unknown Rx symptoms #90 tabs lancets 30 gauge (OneTouch #200 ea 12/02/24 Unknown Rx UltraSoft 2 Lancet) acetaminophen 500 mg tablet 1,000 mg (2 x 500 mg) PO Q 8 PRN 12/08/24 Unknown Rx (Tylenol Extra Strength) fever or pain #60 tabs blood-glucose sensor (Dexcom G7 #1 ea 12/09/24 Unknown Rx Sensor device) sumatriptan succinate 6 mg/0.5 mL 6 mg subcut Q12H PRN MIGRAINE 12/11/24 Unknown History subcutaneous pen injector zolpidem 12.5 mg tablet,extended 12.5 mg PO QHS PRN in somnia 12/18/24 Unknown History release,multiphase (Ambien CR) aripiprazole 20 mg tablet 15 mg PO QHS MOOD STABILIZER 01/02/25 Unknown History sumatriptan succinate 100 mg tablet See Rx Instruction s PO .COMPLEX 01/11/25 Unknown Rx #12 tabs pantoprazole 40 mg tablet,delayed 40 mg PO QDAY #90 ta bs 01/25/25 Unknown Rx release promethazine 25 mg rectal 25 mg GA Q6H PRN PRN for Unknown Rx suppository (Promethegan) nausea/vomiting #12 supp linaclotide 145 mcg capsule 145 mcg PO QDAY #30 caps 0 02/26/25 Unknown Rx (Linzess) docusate sodium 100 mg capsule 100 mg PO DAILY PRN con stipation 03/01/25 Unknown Rx (Colace) #30 caps gabapentin 400 mg capsule 400 mg PO TID #90 caps 03/01 Unknown Rx dulaglutide 1.5 mg/0.5 mL 1.5 mg subcut FR 03/04/25 Un known History subcutaneous pen injector (Trulicity) Allergy/AdvReac Type Severity Reaction Status Date / Time bee venom protein (honey Allergy Severe Anaphylaxis Verified 02/26/25 15:52 bee) (bee sting) ziprasidone (From Geodon) Allergy Severe facial Verified 02/26/25 15:52 swelling adhesive tape Allergy Mild Rash Verified 02/26/25 15:52 latex Allergy Mild Rash Verified 02/26/25 15:52 Iodinated Contrast Media Allergy Hives Verified 02/26/25 15:52 ondansetron (From Zofran) Allergy Hives Verified 02/26/25 15:52 propranolol Allergy Angioedema Verified 02/26/25 15:52 midazolam (From Versed) AdvReac Severe Other Verified 02/26/25 15:52 Family History Other Autoimmune disorder Bleeding disorder Breast cancer CVA (cerebral vascular accident) Colon cancer Diabetes Heart disease Hypertension Myocardial infarction Ovarian cancer Thyroid disorder Surgical History History of vascular access device Port-A-Cath in place H/O hernia repair H/O wisdom tooth extraction H/O oophorectomy Hx of cholecystectomy H/O tubal ligation Social History adopted: No household members: children and none number of children: 2 current occupational status: unemployed pets and animals: No sexually active: No Smoking Status: Never smoker alcohol intake: never substance use type: does not use caffeine: No frequency: 3-4 times per week do you feel safe at home: Yes ROS Constitutional Constitutional: Reports fatigue and weakness; Denies chills or fever(s) Eyes Eyes: Denies change in vision Cardiovascular Cardiovascular: Denies chest pain Respiratory/Chest Respiratory/Chest: Reports shortness of breath with exertion; Denies cough, shortness of breath at rest or wheezing Gastrointestinal Gastrointestinal: Denies abdominal pain Genitourinary Genitourinary: Denies dysuria Musculoskeletal Musculoskeletal: Denies arthralgias or myalgias Neurologic Neurologic: Denies dizziness, focal weakness or headache(s) Vital Signs Vital Signs Vital Signs: 03/04/25 15:00 03/04/25 16:11 03/04/25 17:00 Temperature 97.6 F L Temperature Source Oral Pulse Rate 110 H 107 H 82 Respiratory Rate 14 19 H 18 Blood Pressure 120/72 111/76 97/65 Blood Pressure Mean 88 87 75 Pulse Ox 99 99 99 Oxygen Delivery Method Room Air Room Air Room Air 03/04/25 17:13 Temperature Temperature Source Pulse Rate 81 Respiratory Rate 12 Blood Pressure 97/65 Blood Pressure Mean 75 Pulse Ox 99 Oxygen Delivery Method Room Air Weight Weight: 88.9 kg Body Mass Index (BMI) 37.0 Physical Exam Const alert, oriented x3 and no apparent distress Constitutional Narrative: Younger female, class II obesity, fatigued and somewhat lethargic appearing, otherwise sitting back fairly comfortably in bed, answering questions with short appropriate responses, in no acute distress. General Appearance: cooperative and comfortable Orientation / Consciousness: lethargic HEENT normocephalic, head/scalp atraumatic, hearing grossly normal bilaterally, nasal mucous membranes and turbinates normal and moist oral mucous membranes Eyes PERRL, EOMs intact bilaterally and conjunctivae normal Neck full ROM Chest inspection of chest normal Resp normal respiratory effort and no use of accessory muscles Resp Narrative: Breathing comfortably on room air at rest. Mild crackles noted in bilateral lung bases. No wheezing noted. Cardio regular rate, regular rhythm, no murmurs and peripheral pulses 2+ throughout GI normal to inspection, nondistended, normoactive bowel sounds, soft to palpation, non-tender and non-distended Back/Spine normal ROM Extremity normal to inspection, full ROM and no pedal edema Skin no rashes or lesions noted Psych mental status grossly normal Mood & Affect: depressed and anxious Results Lab / Micro Data 03/04/25 16:05 03/04/25 16:05 Labs: Laboratory Results - last 24 hr 03/04/25 16:05: WBC 13.6 H, RBC 3.34 L, Hgb 8.7 L, Hct 26.0 L, MCV 77.8 L, MCH 26.0 L, MCHC 33.5, RDW Std Deviation 44.7 H, RDW Coeff of Millie 15.9 H, Plt Count 329, MPV 8.1, Immature Gran % (Auto) 0.400, Neut % (Auto) 79.9 H, Lymph % (Auto) 12.9 L, [place] % (Auto) 4.9, Eos % (Auto) 1.5, Baso % (Auto) 0.4, Absolute Neuts (auto) 10.9 H, Absolute Lymphs (auto) 1.76, Nucleated RBC % 0, Differential Comment SCANNED, Platelet Estimate ADEQUATE, Sodium 130 L, Potassium 4.2, Chloride 98, Carbon Dioxide 20.3 L, Anion Gap 12, BUN 53 H, Creatinine 1.82 H, E stim Creat Clear Calc 45.00 L, Est GFR (MDRD) Non-Af 37 L, BUN/Creatinine Ratio 29.1 H, Glucose 150 H, Calcium 8.2, Troponin T High Sens 30 H D, Serum , Qual NEGATIVE 03/04/25 17:11: Troponin T Hi Sens 2 Hr 23 H Micro: Microbiology 03/04/25 16:45 Mucosa - Nose SARS-CoV-2, Influenza & RSV (PCR) - Final Imaging Radiology Impression Chest CTA 03/04/25 17:20 IMPRESSION: No evidence of pulmonary embolism. Small left and trace right pleural effusions with ground-glass densities suggestive of pulmonary edema. Reading Location: [facility] Assessment & Plan Assessment/Plan (1) GERA (acute kidney injury): (2) Acute hyponatremia: (3) Generalized weakness: (4) CAP (community acquired pneumonia): PLAN: Plan Patient is a 34-year-old female who presented [facility] ED on 03/04/2025 with left-sided chest/rib pain, nausea/vomiting and weakness. 1. Concern for community-acquired pneumonia with left-sided pleuritic chest pain ? Admit under inpatient status to PCU. Multiple presenting symptoms but given bilateral basilar ground glass opacities on CT, leukocytosis, elevated procalcitonin and suspected left-sided pleuritic chest pain, will briefly treat for community-acquired pneumonia with IV Levaquin. Tylenol and ibuprofen as needed ordered for pain control. COVID/flu/RSV negative. Sputum culture ordered. 2. GERA ? Creatinine 1.82 on admit, baseline around 0.7. BUN elevated at 53. Suspect mild degree of uremia may be contributing to her nausea/vomiting. Suspect prerenal etiology possibly due to GI losses from chronic diarrhea. Urine sodium and creatinine ordered to calculate FeNa. Given 1 L of normal saline in the ED. Will give another 1 L of normal saline over several hours this evening. Follow-up a.m. BMP and monitor urine output. 3. Hyponatremia ? Sodium 130 on admit. No history of hyponatremia noted. Suspect due to dehydration from GI losses. Given IV fluids on admit as above. Follow-up a.m. sodium level. 4. Generalized weakness ? PT/OT/case management consulted. Patient lives at home alone. Suspect she will be okay to return there on discharge but appreciate therapy recommendations. 5. Chronic iron deficiency anemia ? Hemoglobin 8.7 on admit, baseline around 9-11. Iron studies consistent with iron deficiency anemia. Will recommend the patient initiate p.o. iron supplement on discharge and can consider IV iron infusions in the outpatient setting after discharge as well. Will hold on IV iron infusion while inpatient due to possible pneumonia as above. 6. Nausea/vomiting with reported chronic abdominal pain and diarrhea ? CT abdomen pelvis at ED visit on 02/16 showed mildly prominent fluid-filled loops of mid to distal small bowel and majority of colon consistent with enterocolitis. Unclear if ongoing symptoms may be related to this. Will treat with IV antibiotics as above. Hold on further imaging at this time. Symptomatic treatment with Linzess and Phenergan as needed. Chronic medical conditions: ? Class II obesity: BMI 36 on admit. Complicates hospital course and care. ? Anxiety/depression/insomnia: Continue home aripiprazole and zolpidem at night as needed. ? Migraines: Continue home lamotrigine and gabapentin. ? GERD: Continue home PPI. DVT prophylaxis: Heparin subcu CODE STATUS: Full code, verified Corrected disposition: Home, TBD Total clinical time spent by myself addressing the patient's medical issues, reviewing all the data, and collaborating with patient's care team: 75 minutes. Charges/Coding Visit Charges Inpatient E&M: 33629 Init Hosp L3
[2025-03-04 19:32] LABS: Ferritin 208 ng/mL (22-378); Procalcitonin 0.39 ng/mL (<=0.10)
[2025-03-04 20:02] LABS: Iron 17 ug/dL (50-170); Iron Binding Capacity,Unsat 92 ug/dL (228-428); Vitamin B12 1125 pg/mL (180-914)
[2025-03-04 20:06] LABS: Pro- Brain NATRIURETIC PEPTIDE 421 pg/mL (<=450)
[2025-03-04 20:08] LABS: Iron Binding Capacity,Total 109 ug/dL (250-450)
[2025-03-04 20:45] LABS: Mucous, Urine 0 SEEN /hpf (<or=2+)
[2025-03-04 21:00] LABS: Color, Urine Yellow (Yellow); Glucose, Dipstick Normal (Normal); Ketone-Dipstick 5 mg/dl (Negative); Leukocyte Esterase-Dipstick 100 /ul (Negative); Nitrite-Dipstick Positive (Negative); Occult Blood-Urine 10 /ul (Negative); Protein-Dipstick 30 mg/dl (Negative); Specific Gravity, Urine 1.015 (1.002-1.030)
[2025-03-04 21:07] LABS: Urine Bilirubin Dipstick 3 mg/dL (Negative)
[2025-03-04 21:27] LABS: Red Blood Cells-Urine 0-5 SEEN /hpf (0-5); Squamous Epithelial Cells - UA 0-5 SEEN /hpf (5-10)
[2025-03-04] MEDS: proMETHazine 12.5 MG Suppos. RC (22:56)
[2025-03-04] MEDS: 0.9% Normal Saline (1000mL) 1,000 ML 150 ML IV (23:09)
[2025-03-05 00:41] LABS: Troponin T High Sens 4 HR 22 ng/L (<=14)
[2025-03-05 03:31] VITALS: O2SAT 96
[2025-03-05 03:34] VITALS: BP 120/78; PULSE 88; RESP 14; TEMP 36.4; O2SAT 96
[2025-03-05] MEDS: levoFLOXacin IV 750 MG/150 ML BAG 100 MG IV (03:45)
[2025-03-05 05:46] LABS: Hematocrit 24.9 % (37-47); Hemoglobin 8.2 g/dL (12.0-15.0); Mean Corp Hgb Conc 32.9 g/dL (32-36); Mean Corpuscular Volume 78.1 fL (81-99); Mean Platelet Vol. 8.1 fl (6.2-12.0); Platelet Count 336 K/mm3 (150-450); RBC Distribution Width CV 16.1 % (11.6-14.6); RBC Distribution Width SD 45.1 fl (35.1-43.9); Red Blood Count 3.19 M/mm3 (4.2-5.4); White Blood Count 12.6 K/mm3 (4.4-11.0)
[2025-03-05] MEDS: Heparin Injection (Vial) 5,000 UNIT/ML VIAL 5000 UNIT SC ×3 (06:01→21:33)
[2025-03-05] MEDS: proMETHazine 25 MG/ML Syringe 6.25 MG IM ×3 (06:04→21:26)
[2025-03-05 06:43] LABS: Anion Gap 10 (5-15); BUN 37 mg/dL (4-19); BUN/Creat Ratio 34.8 RATIO (10-20); Calcium,Total 7.9 mg/dL (7.6-11.0); Carbon Dioxide 21.0 mmol/L (21.0-32.0); Chloride 104 mmol/L (98-108); Estimated Creatinine Clearance 76.93 ml/min (50-250); Glucose 114 mg/dL (70-99); Potassium 4.3 mmol/L (3.3-5.1)
[2025-03-05 08:31] VITALS: BP 112/63; PULSE 102; RESP 16; TEMP 36.4; O2SAT 99
[2025-03-05] MEDS: 0.9% Saline Lock 10 ML Syringe IV (11:41)
--- NOTE | 2025-03-05 12:05 | CASEMGMT ---
Social Work SW met w/pt, pt's aunt present. SW reviewed prior level of function and anticipated discharge plan. PCP: MJ Hernandez w/[facility]: Neurology--Dr. Dsouza; Pain Management--Dr. Smith. She is supposed to follow up w/a new urologist, does not recall at this time the name. Insurance/prescription coverage: [place] Medicaid Pharmacy: [facility], for [facility]: Pt's aunt Violeta. Pt does have a living father but she does not report him to be supportive LW/POA: Pt has not completed, would like to complete while here, SW will follow up on this Living arrangements/prior level of function: Pt lives home alone, independent with all ADLS. Transportation: Pt's aunt or pt uses [employer]. this has been difficult at times, SW will provide resources DME: None SNF/HHC: No history SW spoke w/pt about d/c plan. We explored all options including SNF, HHC, aunt staying w/her or pt going to stay w/aunt. Pt cannot stay w/aunt as aunt's home has many stairs. Pt's aunt cannot stay w/pt as she has her own responsibilities. Pt would prefer to go home. As per pt's aunt, she has medical PTSD. Pt states she prefers to be home and gets agitated when outside of her own environment. SW explained will bring pt a list of custodial facilities should we need to explore this option. SW encouraged pt to continue to participate in therapy, and we can revisit this tomorrow. Pt is open to HHC, SW will provide to pt a home health care list as well. SW will follow up. LUDMILA Hameed
--- NOTE | 2025-03-05 12:15 | CASEMGMT ---
Discharge Planning A list of?HH & SNF providers including quality and resource use data and consistent with the patient's preferred geographic region, medical needs, and insurance network was created in [employer] Guide.? This list was provided to the KIM. Mercedes Garcia, Discharge Planning Ass
--- NOTE | 2025-03-05 13:08 | CASEMGMT ---
Social Work SW gave pt resources for transportation including [facility] [employer] and [place]. Pt also completed LW/POA w/SW, SW gave pt originals and copies placed on chart. SW gave pt the lists for home health and SNF from [facility] of agencies and facilities in network w/pt's insurance, in pt's preferred geographic area and complete w/quality and resource use data. SW explained will follow up w/her tomorrow after PT, but did want to start the [facility] referral process today to see if we can get an agency on board, in the event pt does improve and can return home. Pt does not have an agency preference. SW explained will start w/[facility] and go from there. Pt in agreement. SW called [facility], made referral. SW will continue to follow, await response. Plan: SNF vs home w/HHC and a walker. LUDMILA Hameed
--- NOTE | 2025-03-05 13:57 | CASEMGMT ---
Addendum entered by Merari Phillips 03/05/25 14:35: Social Work [facility], [place], [facility] and [facility] have all declined pt. LUDMILA Hameed Original Note: Social Work [facility] cannot take pt as they cannot take any additional Medicaid pts at this time. SW sent referral to [facility], [facility], [facility], [facility], [facility] and [facility]. SW will continue to follow. LUDMILA Hameed
--- NOTE | 2025-03-05 14:05 | PN_ITS ---
Subjective Subjective Patient seen and examined with her nurse by her bedside. She is complaining of incessant nausea. She is asking for Reglan even though it is listed as an allergy. She says she only has some fidgeting with it and has tolerated it in the past and says she usually takes it together with Benadryl. She denies any abdominal pain, fever or chills or any other symptoms. Review of systems otherwise negative. Objective Data Objective Data Vital Signs: Vital Signs Temp Pulse Resp BP Pulse Ox O2 Del Method 97.6 F L 102 H 16 112/63 99 Room Air 03/05/25 08:31 03/05/25 08:31 03/05/25 08:31 03/05/25 08:31 03/05/25 08:31 03/05/25 08:31 Oxygen Delivery Method Room Air Weight: 194 lb 7.163 oz Body Mass Index (BMI) 36.7 Intake & Output: Intake and Output for Last 24 Hours 03/03/25 03/04/25 03/05/25 23:59 23:59 23:59 Intake Total 1000 / 1000 1150 / 1150 Balance 1000 / 1000 1150 / 1150 Lab / Micro Data 03/05/25 05:32 03/05/25 05:32 Labs: Laboratory Results - last 24 hr 03/04/25 16:05: WBC 13.6 H, RBC 3.34 L, Hgb 8.7 L, Hct 26.0 L, MCV 77.8 L, MCH 26.0 L, MCHC 33.5, RDW Std Deviation 44.7 H, RDW Coeff of Millie 15.9 H, Plt Count 329, MPV 8.1, Immature Gran % (Auto) 0.400, Neut % (Auto) 79.9 H, Lymph % (Auto) 12.9 L, [place] % (Auto) 4.9, Eos % (Auto) 1.5, Baso % (Auto) 0.4, Absolute Neuts (auto) 10.9 H, Absolute Lymphs (auto) 1.76, Nucleated RBC % 0, Differential Comment SCANNED, Platelet Estimate ADEQUATE, Sodium 130 L, Potassium 4.2, Chloride 98, Carbon Dioxide 20.3 L, Anion Gap 12, BUN 53 H, Creatinine 1.82 H, E stim Creat Clear Calc 45.00 L, Est GFR (MDRD) Non-Af 37 L, BUN/Creatinine Ratio 29.1 H, Glucose 150 H, Calcium 8.2, Troponin T High Sens 30 H D, Serum , Qual NEGATIVE 03/04/25 17:11: Iron 17 L, TIBC 109 L, Iron Saturation 15.6, Unsaturated IBC 92 L, Ferritin 208, Troponin T Hi Sens 2 Hr 23 H, NT pro BNP II 421, Vitamin B12 1125 H, Procalcitonin 0.39 H 03/04/25 20:30: Urine Color Yellow, Urine Clarity Cloudy, Urine pH 6.0, Ur Specific [place] 1.015, Urine Protein 30 H, Urine Glucose (UA) Normal, Urine Ketones 5 H, Urine Occult Blood 10 H, Urine Nitrite Positive H, Urine Bilirubin 3 H, Urine Urobilinogen 4 H, Ur Leukocyte Esterase 100 H, Urine RBC 0-5 SEEN, Urine WBC 0-5 SEEN, Ur Squamous Epith Cells 0-5 SEEN, Urine Bacteria 4+, Urine Mucus 0 SEEN, Ur Random Sodium < 20, Urine Creatinine 83.80 03/04/25 23:48: Troponin T Hi Sens 4Hr 22 H 03/05/25 05:32: WBC 12.6 H, RBC 3.19 L, Hgb 8.2 L, Hct 24.9 L, MCV 78.1 L, MCH 25.7 L, MCHC 32.9, RDW Std Deviation 45.1 H, RDW Coeff of Millie 16.1 H, Plt Count 336, MPV 8.1, Sodium 135, Potassium 4.3, Chloride 104, Carbon Dioxide 21.0, Anion Gap 10, BUN 37 H, Creatinine 1.06, Estim Creat Clear Calc 76.93, Est GFR (MDRD) Non-Af 72, BUN/Creatinine Ratio 34.8 H, Glucose 114 H, Calcium 7.9 Micro: Microbiology 03/04/25 16:45 Mucosa - Nose SARS-CoV-2, Influenza & RSV (PCR) - Final Radiography Diagnostic Testing: Radiology Impression Chest CTA 03/04/25 17:20 IMPRESSION: No evidence of pulmonary embolism. Small left and trace right pleural effusions with ground-glass densities suggestive of pulmonary edema. Reading Location: [facility] Physical Exam Const alert and oriented x3 Constitutional Narrative: flat affect, looks uncomfortable. General Appearance: cooperative HEENT normocephalic and head/scalp atraumatic Mouth: dry mucous membranes Eyes EOMs intact bilaterally Neck supple and no JVD Lymph Lymphatic: no lymphedema noted Resp Resp Narrative: Mildly diminished breath sounds bibasilarly. No wheezes or crackles. On room air. Cardio regular rate, regular rhythm, S1 normal heart sound, S2 normal heart sound and no murmurs GI normal to inspection, nondistended, normoactive bowel sounds, soft to palpation and non-tender GI Narrative: obese abdomen Extremity normal capillary refill, no clubbing, cyanosis or edema and no calf tenderness General Extremity: no tenderness to palpation of joints or extremities Skin General Skin Exam: no breakdown Neuro no focal motor deficits and no sensory deficits noted Motor Exam: general weakness Psych Mood & Affect: flat affect Assessment & Plan Assessment/Plan (1) CAP (community acquired pneumonia): (2) Generalized weakness: (3) GERA (acute kidney injury): PLAN: Plan #Community acquired pneumonia * CT of the chest showed no evidence of PE and showed trace right pleural effusions and groundglass densities concerning for pneumonia versus pulmonary edema. Currently on IV levofloxacin. Urine for strep and Legionella are negative. * Breathing treatments bronchodilators. Titrate oxygen to maintain saturation above 90%. * #UTI: * Urinalysis showed 4+ bacteria. Her previous urinalysis showed only 1+ bacteria. * There is a question of whether she has chronic colonization of the urine. On IV levofloxacin which will also cover for UTI. * Urine cultures pending. #GERA: * resolved. * Cr has trended down to 1.06 from 1.82 on admission. Continue gentle hydration with iVF until her oral intake is adequate. #Incessant nausea and vomiting' * she complains of chronic abdominal pain and diarrhhea * on zofran. Metoclopramide is listed as an allergy but insist that she is able to tolerate it and only gets some fidgeting with it. * add on IV reglan with benadryl to the IV zofran for nausea and vomiting. * hydrate gently with iVF * #Debility and weakness: Patient quite weak and frail. PT OT on board. Fall precautions. #Acute on chronic anemia: * Hemoglobin is 8.2. Was 9.4 on admission and her baseline is around 10-11. * No overt bleeding. * Will monitor and if it drops further we will do further workup for anemia #Anxiety and depression as well as bipolar disorder: On zolpidem and aripiprazole #History of migraines: On lamotrigine and gabapentin #GERD: On PPI #Class II obesity: BMI is 36.7. Complicates acute care, expected recovery and prognosis DVT prophylaxis: Heparin Charges/Coding Visit Charges Inpatient E&M: 25225 Subs Hosp L2
[2025-03-05 14:27] VITALS: BP 104/72; PULSE 102; RESP 16; TEMP 36.4; O2SAT 98
[2025-03-05] MEDS: Ketorolac 30 MG/ML Syringe IV (15:54)
[2025-03-05] MEDS: 0.9% Normal Saline (1000mL) 1,000 ML 125 ML IV (15:55)
[2025-03-05 17:28] VITALS: BP 114/54; PULSE 102; RESP 16; TEMP 36.5; O2SAT 98
[2025-03-05 21:12] VITALS: BP 123/70; PULSE 102; RESP 16; TEMP 36.7; O2SAT 99
[2025-03-06] MEDS: DiphenhydrAMINE 50 MG/ML Syringe 25 MG IV ×4 (00:28→23:10)
[2025-03-06] MEDS: 0.9% Normal Saline (1000mL) 1,000 ML 125 ML IV (00:49)
[2025-03-06] MEDS: Ketorolac 30 MG/ML Syringe IV ×3 (02:35→20:20)
[2025-03-06 02:52] VITALS: BP 126/86; PULSE 107; RESP 18; TEMP 37.2; O2SAT 98
--- NOTE | 2025-03-06 05:15 | RAD_ITS ---
PROCEDURE: CHEST 1 VIEW (PORTABLE) 03/06/2025 REASON FOR EXAM: PORT PLACEMENT OFF ? TECHNIQUE: Frontal view of the chest. COMPARISON: Chest x-ray 12/19/2024. FINDINGS: Hardware: A left-sided Port-A-Cath terminates in the SVC. Heart: A loop recorder overlies the heart. No cardiomegaly. Lungs: Clear. No pleural effusion or pneumothorax. Bones: No acute bony abnormalities. RAD/Chest 1 View (Portable) IMPRESSION: No acute cardiopulmonary abnormalities. Reading Location: [id number]
--- NOTE | 2025-03-06 06:17 | NURSING ---
Pt refusing all of oral meds for shift. Refused getting rest of IV fluid d/t the placement of IV in Right AC. States it is making it too hard for her to rest. Educated pt on reasons fluid is ordered.
--- NOTE | 2025-03-06 06:24 | NURSING ---
Reviewed and agreed on charting with Shannon Rodriguez RN
[2025-03-06 10:07] VITALS: BP 120/83; PULSE 101; RESP 16; TEMP 36.4; O2SAT 96
[2025-03-06] MEDS: 0.9% Normal Saline (1000mL) 1,000 ML 100 ML IV ×2 (10:26→20:20)
[2025-03-06] MEDS: 0.9% Saline Lock 10 ML Syringe IV ×2 (10:27→17:06)
[2025-03-06 11:20] LABS: Hematocrit 24.6 % (37-47); Hemoglobin 8.0 g/dL (12.0-15.0); Immature Granulocytes Count 0.030 X10^3/uL (0.0-0.0); Mean Corp Hgb Conc 32.5 g/dL (32-36); Mean Corpuscular Volume 79.4 fL (81-99); Mean Platelet Vol. 7.9 fl (6.2-12.0); NRBC Flagged by Analyzer 0 % (0-5); POSITIVE MORPHOLOGY YES; Platelet Count 313 K/mm3 (150-450); RBC Distribution Width CV 17.2 % (11.6-14.6); RBC Distribution Width SD 49.5 fl (35.1-43.9); Red Blood Count 3.10 M/mm3 (4.2-5.4); White Blood Count 7.9 K/mm3 (4.4-11.0)
[2025-03-06 11:44] LABS: Differential Indicated SCAN CRITERIA MET
[2025-03-06 12:07] LABS: Anion Gap 12 (5-15); BUN 27 mg/dL (4-19); BUN/Creat Ratio 41.3 RATIO (10-20); Calcium,Total 8.1 mg/dL (7.6-11.0); Carbon Dioxide 18.5 mmol/L (21.0-32.0); Chloride 108 mmol/L (98-108); Estimated Creatinine Clearance 123.56 ml/min (50-250); Glucose 98 mg/dL (70-99); Potassium 4.2 mmol/L (3.3-5.1)
[2025-03-06] MEDS: levoFLOXacin IV 750 MG/150 ML BAG 100 MG IV (13:02)
--- NOTE | 2025-03-06 13:19 | CASEMGMT ---
Addendum entered by Merari Phillips 03/06/25 13:44: Social Work SW cancelled the last home care referral in [facility], as pt no longer wants HHC. LUDMILA Hameed Original Note: Social Work SW reviewed PT notes, pt walked 210 feet today, standby assist. SW met w/pt again, she feels she is doing well enough to return home. At this time, she does not want HHC. SW advised pt if she were to get home and decide she did want HHC, her PCP can also make a referral. SW did explain to pt that we tried 7 agencies, and 6 said no, only one was still pending, so it may be difficult to get HHC overall however. Pt states understanding. Pt would still like a walker, does not have a preference for DME company so list not needed. SW explained we have walkers here from [email or web address] so we could use [email or web address] to get the walker, pt agreeable. Pt also states wants to leave this evening. SW explained will let the physician know, but it would be up to the physician. SW came back to the nurses' station, and RN speaking to physician about this already. Physician does not think pt is ready for d/c. If she leave today it would be AMA. If pt leaves AMA she would not be able to get the walker. SW will place green sheet w/walker script and instructions on the chart in the event pt does get d/c on the weekend, so pt can get a walker. LUDMILA Hameed
--- NOTE | 2025-03-06 14:28 | PN_ITS ---
Subjective Subjective Patient seen and examined with her nurse by her bedside. She was still complaining of incessant nausea. She has been having retching but no actual vomiting. Her abdominal pain has improved. Review of systems otherwise negative. Objective Data Objective Data Vital Signs: Vital Signs Temp Pulse Resp BP Pulse Ox O2 Del Method 97.6 F L 101 H 16 120/83 H 96 Room Air 03/06/25 10:07 03/06/25 10:07 03/06/25 10:07 03/06/25 10:07 03/06/25 10:07 03/06/25 10:07 Oxygen Delivery Method Room Air Weight: 194 lb 7.163 oz Body Mass Index (BMI) 36.7 Intake & Output: Intake and Output for Last 24 Hours 03/04/25 03/05/25 03/06/25 23:59 23:59 23:59 Intake Total 1000 / 1000 1270 / 1270 2000.00 / 2000.00 Output Total 900 / 900 Balance 1000 / 1000 1270 / 370 1100.00 / 1100.00 Lab / Micro Data 03/06/25 11:06 03/06/25 11:06 Labs: Laboratory Results - last 24 hr 03/06/25 11:06: WBC 7.9, RBC 3.10 L, Hgb 8.0 L, Hct 24.6 L, MCV 79.4 L, MCH 25.8 L, MCHC 32.5, RDW Std Deviation 49.5 H, RDW Coeff of Millie 17.2 H, Plt Count 313, MPV 7.9, Immature Gran % (Auto) 0.400, Neut % (Auto) 75.9 H, Lymph % (Auto) 17.3 L, Ida % (Auto) 5.6, Eos % (Auto) 0.4, Baso % (Auto) 0.4, Absolute Neuts (auto) 6.0, Absolute Lymphs (auto) 1.36, Nucleated RBC % 0, Sodium 138, Potassium 4.2, Chloride 108, Carbon Dioxide 18.5 L, Anion Gap 12, BUN 27 H, Creatinine 0.66 L, Estim Creat Clear Calc 123.56, Est GFR (MDRD) Non-Af 119, BUN/Creatinine Ratio 41.3 H, Glucose 98, Calcium 8.1 Micro: Microbiology 03/04/25 20:30 Urine, Random Urine Culture - Preliminary GNR lactose medical lab scientist 03/04/25 16:45 Mucosa - Nose SARS-CoV-2, Influenza & RSV (PCR) - Final Radiography Diagnostic Testing: Radiology Impression Chest X-Ray 03/06/25 05:15 IMPRESSION: No acute cardiopulmonary abnormalities. Reading Location: [facility] Physical Exam Const alert, oriented x3 and no apparent distress Constitutional Narrative: flat affect, looks uncomfortable. General Appearance: cooperative and comfortable Orientation / Consciousness: lethargic HEENT normocephalic, head/scalp atraumatic, hearing grossly normal bilaterally, nasal mucous membranes and turbinates normal and moist oral mucous membranes Eyes EOMs intact bilaterally and conjunctivae normal Neck full ROM, supple and no JVD Lymph Lymphatic: no lymphedema noted Chest inspection of chest normal Resp normal respiratory effort and no use of accessory muscles Resp Narrative: Mildly diminished breath sounds bibasilarly. No wheezes or crackles. On room air. Cardio regular rate, regular rhythm, S1 normal heart sound, S2 normal heart sound, no murmurs and peripheral pulses 2+ throughout GI normal to inspection, nondistended, normoactive bowel sounds, soft to palpation, non-tender and non-distended GI Narrative: obese abdomen Back/Spine normal ROM Extremity normal to inspection, full ROM, normal capillary refill, no clubbing, cyanosis or edema, no calf tenderness and no pedal edema General Extremity: no tenderness to palpation of joints or extremities Skin no rashes or lesions noted General Skin Exam: no breakdown Neuro no focal motor deficits and no sensory deficits noted Motor Exam: general weakness Psych mental status grossly normal Mood & Affect: flat affect Assessment & Plan Assessment/Plan (1) CAP (community acquired pneumonia): (2) Generalized weakness: (3) GERA (acute kidney injury): PLAN: Plan #Community acquired pneumonia * CT of the chest showed no evidence of PE and showed trace right pleural effusions and groundglass densities concerning for pneumonia versus pulmonary edema. Currently on IV levofloxacin. Urine for strep and Legionella are negative. * Breathing treatments bronchodilators. Titrate oxygen to maintain saturation above 90%. * #UTI: * Urinalysis showed 4+ bacteria. Her previous urinalysis showed only 1+ bacteria. * There is a question of whether she has chronic colonization of the urine. On IV levofloxacin which will also cover for UTI. * Urine cultures growing gram-negative cassidy lactose medical lab scientist. Speciation is pending. #GERA: * resolved. * #Incessant nausea and vomiting' * she complains of chronic abdominal pain and diarrhea * on zofran. Metoclopramide is listed as an allergy but insist that she is able to tolerate it and only gets some fidgeting with it. * add on IV reglan with benadryl to the IV zofran for nausea and vomiting. * hydrate gently with iVF * #Debility and weakness: Patient quite weak and frail. PT OT on board. Fall precautions. #Acute on chronic anemia: * Hemoglobin is down to 8 today. Was 9.4 on admission and her baseline is around 10-11. * No overt bleeding. * check iron profile. #Anxiety and depression as well as bipolar disorder: On zolpidem and aripiprazole #History of migraines: On lamotrigine and gabapentin #GERD: On PPI #Class II obesity: BMI is 36.7. Complicates acute care, expected recovery and prognosis DVT prophylaxis: Heparin Charges/Coding Visit Charges Inpatient E&M: 91668 Subs Hosp L2
[2025-03-06 15:31] VITALS: BP 108/92; BP 113/77; BP 123/71; PULSE 103; PULSE 113; TEMP 36.6
[2025-03-06] MEDS: Heparin Injection (Vial) 5,000 UNIT/ML VIAL 5000 UNIT SC ×2 (15:50→20:25)
[2025-03-06 15:53] LABS: Ferritin 200 ng/mL (22-378); Iron 25 ug/dL (50-170); Iron Binding Capacity,Unsat 71 ug/dL (228-428)
[2025-03-06 16:19] LABS: Iron Binding Capacity,Total 95 ug/dL (250-450)
[2025-03-06 19:55] VITALS: PULSE 101
[2025-03-06 20:10] VITALS: BP 103/68; PULSE 86; RESP 16; TEMP 36.4; O2SAT 100
[2025-03-06] MEDS: proMETHazine 25 MG/ML Syringe 6.25 MG IM (20:20)
[2025-03-06 23:38] VITALS: PULSE 93
[2025-03-07 03:41] VITALS: PULSE 94
[2025-03-07] MEDS: 0.9% Normal Saline (1000mL) 1,000 ML 100 ML IV (05:03)
[2025-03-07] MEDS: Heparin Injection (Vial) 5,000 UNIT/ML VIAL 5000 UNIT SC (05:04)
[2025-03-07] MEDS: DiphenhydrAMINE 50 MG/ML Syringe 25 MG IV ×2 (05:10→12:36)
[2025-03-07 05:21] VITALS: BP 108/76; PULSE 95; RESP 16; TEMP 36.5; O2SAT 100
[2025-03-07 07:11] LABS: Hematocrit 23.5 % (37-47); Hemoglobin 7.5 g/dL (12.0-15.0); Immature Granulocytes Count 0.040 X10^3/uL (0.0-0.0); Mean Corp Hgb Conc 31.9 g/dL (32-36); Mean Corpuscular Volume 82.2 fL (81-99); Mean Platelet Vol. 8.6 fl (6.2-12.0); NRBC Flagged by Analyzer 0 % (0-5); POSITIVE COUNT YES; POSITIVE MORPHOLOGY YES; RBC Distribution Width CV 17.2 % (11.6-14.6); RBC Distribution Width SD 51.9 fl (35.1-43.9); Red Blood Count 2.86 M/mm3 (4.2-5.4); White Blood Count 5.5 K/mm3 (4.4-11.0)
[2025-03-07 07:42] LABS: Anion Gap 10 (5-15); BUN 17 mg/dL (4-19); BUN/Creat Ratio 34.1 RATIO (10-20); Calcium,Total 7.9 mg/dL (7.6-11.0); Carbon Dioxide 16.5 mmol/L (21.0-32.0); Chloride 108 mmol/L (98-108); Estimated Creatinine Clearance 163.10 ml/min (50-250); Glucose 91 mg/dL (70-99); Potassium 4.1 mmol/L (3.3-5.1)
[2025-03-07 07:46] LABS: Differential Indicated SCAN CRITERIA MET
[2025-03-07 10:01] VITALS: BP 126/85; PULSE 94; RESP 18; TEMP 36.4; O2SAT 96
[2025-03-07] MEDS: levoFLOXacin IV 750 MG/150 ML BAG 100 MG IV (10:05)
[2025-03-07] MEDS: proMETHazine 25 MG/ML Syringe 6.25 MG IM (10:23)
--- NOTE | 2025-03-07 12:17 | PCM.DC.SUM ---
Providers Date of Admission: 03/04/25 Date of Discharge: 03/07/25 Primary Care Physician: MJ Fried Reason For Visit: GERA & FATIGUE W/WEAKNESS Diagnosis Discharge Diagnosis (1) CAP (community acquired pneumonia): Status: Acute Code(s): J18.9 - Pneumonia, unspecified organism (2) Generalized weakness: Status: Acute Code(s): R53.1 - Weakness (3) GERA (acute kidney injury): Status: Acute Code(s): N17.9 - Acute kidney failure, unspecified Plan #Community acquired pneumonia CT of the chest showed no evidence of PE and showed trace right pleural effusions and groundglass densities concerning for pneumonia versus pulmonary edema. Currently on IV levofloxacin. Urine for strep and Legionella are negative. Breathing treatments bronchodilators. Titrate oxygen to maintain saturation above 90%. #UTI: Urinalysis showed 4+ bacteria. Her previous urinalysis showed only 1+ bacteria. There is a question of whether she has chronic colonization of the urine. On IV levofloxacin which will also cover for UTI. 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 Speciation is pending. #GERA: resolved. #Incessant nausea and vomiting' she complains of chronic abdominal pain and diarrhea on zofran. Metoclopramide is listed as an allergy but insist that she is able to tolerate it and only gets some fidgeting with it. add on IV reglan with benadryl to the IV zofran for nausea and vomiting. hydrate gently with iVF #Debility and weakness: Patient quite weak and frail. PT OT on board. Fall precautions. #Acute on chronic anemia: Hemoglobin is down to 8 today. Was 9.4 on admission and her baseline is around 10-11. No overt bleeding. check iron profile. #Anxiety and depression as well as bipolar disorder: On zolpidem and aripiprazole #History of migraines: On lamotrigine and gabapentin #GERD: On PPI #Class II obesity: BMI is 36.7. Complicates acute care, expected recovery and prognosis DVT prophylaxis: Heparin Medications at Discharge Home Medications blood-glucose,cash person,cont (Dexcom G7 Retail Merchandiser Technician) #1 ea 06/09/24 blood-glucose transmitter (Dexcom G6 Transmitter device) #1 ea 07/09/24 atogepant 60 mg tablet (Qulipta) 60 mg PO DAILY 07/14/24 lamotrigine 200 mg tablet 200 mg PO BID 07/14/24 epinephrine 0.3 mg/0.3 mL injection, auto-injector (EpiPen 2-Scout) 0.3 mg (0.3 mL) IM Q5-15M PRN anaphylaxis #2 ea 10/05/24 lasmiditan 100 mg tablet (Reyvow) 100 mg PO PRN MIGRAINE 10/21/24 albuterol sulfate 90 mcg/actuation aerosol inhaler 2 puff inhalation Q6H PRN shortness of breath or wheezing #8.5 grams 11/19/24 ibuprofen 800 mg tablet 800 mg PO Q8H PRN pain #30 tabs 11/19/24 blood sugar diagnostic ([employer] Verio test strips) #100 ea 12/02/24 cetirizine 10 mg tablet 10 mg PO DAILY PRN allergy symptoms #90 tabs 12/02/24 lancets 30 gauge ([employer] UltraSoft 2 Lancet) #200 ea 12/02/24 acetaminophen 500 mg tablet (Tylenol Extra Strength) 1,000 mg (2 x 500 mg) PO Q8 PRN fever or pain #60 tabs 12/08/24 blood-glucose sensor ([employer] G7 Sensor device) #1 ea 12/09/24 sumatriptan succinate 6 mg/0.5 mL subcutaneous pen injector 6 mg subcut Q12H PRN MIGRAINE 12/11/24 zolpidem 12.5 mg tablet,extended release,multiphase (Ambien CR) 12.5 mg PO QHS PRN insomnia 12/18/24 aripiprazole 20 mg tablet 15 mg PO QHS MOOD STABILIZER 01/02/25 sumatriptan succinate 100 mg tablet See Rx Instructions PO .COMPLEX #12 tabs 01/11/25 pantoprazole 40 mg tablet,delayed release 40 mg PO QDAY #90 tabs 01/25/25 promethazine 25 mg rectal suppository (Promethegan) 25 mg GA Q6H PRN PRN for nausea/vomiting #12 supp 02/11/25 linaclotide 145 mcg capsule (Linzess) 145 mcg PO QDAY #30 caps 02/26/25 docusate sodium 100 mg capsule (Colace) 100 mg PO DAILY PRN constipation #30 caps 03/01/25 gabapentin 400 mg capsule 400 mg PO TID #90 caps 03/01/25 dulaglutide 1.5 mg/0.5 mL subcutaneous pen injector (Trulicity) 1.5 mg subcut FR 03/04/25 clonidine HCl 0.2 mg tablet 0.2 mg PO TID anxiety 03/05/25 levofloxacin 750 mg tablet 750 mg PO DAILY #5 tabs 03/07/25 Hospital Course Operations None Procedures None Summary of Care Provided Minutes Spent on Discharge: 42 Hospital Course: Patient is a 34-year-old female with past medical history as outlined who was admitted to the ED on 03/04/2025 with a complaint of left-sided chest discomfort, nausea, vomiting and weakness. She had been seen very frequently in the ED in the past and saw her PCP on 02/26/2025 with various concerns including diarrhea, fatigue, dizziness and chronic abdominal pain. She came into the ED with the same complaints. In the ED she was found to be mildly tachycardic but was afebrile and otherwise hemodynamically stable. Labs were significant for sodium of 138, creatinine of 1.82, WBC of 13 hemoglobin of 8.7. She had apparently been off of anticoagulation for her factor V Leiden deficiency for about 3 months with her PCP approval according to the patient. CT of the chest was therefore done which showed no evidence of PE but did show small left and right trace pleural effusions with groundglass densities concerning for pneumonia versus pulmonary edema. She was therefore admitted to be managed for GERA as well as probable community-acquired pneumonia. Hospital course was complicated by the incessant nausea. She was not really vomiting but more like retching. Urinalysis did not show evidence of UTI and urine cultures then grew E. coli which was sensitive to the levofloxacin. Her nausea gradually improved to the point where she was able to tolerate a diet. She was discharged home on 03/07/2025 on a 5-day course of Levaquin 750 mg daily p.o. She is to follow-up with her primary care doctor within 1 to 2 weeks. Patient seen and examined prior to discharge. She still complained of some mild nausea but requested to go home. Review of systems is otherwise negative. Labs and vitals reviewed. Home meds reviewed and reconciled. Physical Exam Const alert, oriented x3 and no apparent distress Constitutional Narrative: flat affect General Appearance: cooperative and comfortable Orientation / Consciousness: lethargic HEENT normocephalic, head/scalp atraumatic, hearing grossly normal bilaterally, nasal mucous membranes and turbinates normal and moist oral mucous membranes Eyes PERRL, EOMs intact bilaterally and conjunctivae normal Neck full ROM, supple and no JVD Lymph Lymphatic: no lymphedema noted Chest inspection of chest normal Resp Resp Narrative: Mildly diminished breath sounds bibasilarly. No wheezes or crackles. On room air. Cardio regular rate, regular rhythm, S1 normal heart sound, S2 normal heart sound, no murmurs and peripheral pulses 2+ throughout GI normal to inspection, nondistended, normoactive bowel sounds, soft to palpation, non-tender and non-distended GI Narrative: obese abdomen Back/Spine normal ROM Extremity normal to inspection, full ROM, normal capillary refill and no clubbing, cyanosis or edema General Extremity: no tenderness to palpation of joints or extremities Skin no rashes or lesions noted General Skin Exam: no breakdown Neuro oriented x3, CN's II-XII intact bilaterally, moves all extremities, no focal motor deficits and no sensory deficits noted Sensorium / Orientation: awake Motor Exam: general weakness Psych mental status grossly normal Mood & Affect: depressed, anxious and flat affect Weight / BMI Weight Weight: 194 lb 7.163 oz Body Mass Index (BMI) 36.7 ABG / Lab / Microbiology Data 03/07/25 06:45 03/07/25 06:45 Laboratory: Laboratory Results - last 24 hr 03/06/25 11:06: Iron 25 L, TIBC 95 L, Iron Saturation 26.0, Unsaturated IBC 71 L, Ferritin 200 03/07/25 06:45: WBC 5.5, RBC 2.86 L, Hgb 7.5 L, Hct 23.5 L, MCV 82.2, MCH 26.2 L, MCHC 31.9 L, RDW Std Deviation 51.9 H, RDW Coeff of Millie 17.2 H, Plt Count , MPV 8.6, Immature Gran % (Auto) 0.700, Neut % (Auto) 63.2, Lymph % (Auto) 29.0, Mcclain % (Auto) 6.0, Eos % (Auto) 0.7, Baso % (Auto) 0.4, Absolute Neuts (auto) 3.5, Absolute Lymphs (auto) 1.60, Nucleated RBC % 0, Platelet Estimate ADEQUATE, Sodium 135, Potassium 4.1, Chloride 108, Carbon Dioxide 16.5 L, Anion Gap 10, BUN 17, Creatinine 0.50 L, Estim Creat Clear Calc 163.10, Est GFR (MDRD) Non-Af 128, BUN/Creatinine Ratio 34.1 H, Glucose 91, Calcium 7.9 Microbiology: Microbiology 03/04/25 20:30 Urine, Random Urine Culture - Final Escherichia coli 03/04/25 16:45 Mucosa - Nose SARS-CoV-2, Influenza & RSV (PCR) - Final D/C Instructions Discharge Activity: Return to Normal Activity Weight Bearing Status: Weight bearing as tolerated Call your doctor if you observe: Fever of 101 or Higher, Shortness of breath, Dizziness, Swelling in the ankles and Chest pain DC O2, CPAP, BIPAP Needs Home O2 Discharge instructions: No Meaningful Use Info Meaningful Use Meaningful Use Diagnoses (Choose all that apply): None applicable Discharge Plan Admission Admit Date/Time: 03/04/25 18:09 Primary Reason for Your Visit: UTI, pneumonia Attending Provider: Melissa Howard Primary Care Provider: Rashawn Yip Consulting Providers: Jose Cardona Instructions Patient Instructions: ED Pneumonia (Adult), ED UTIs Women Discharge Orders/Prescriptions Prescriptions: New levofloxacin 750 mg tablet 750 mg PO DAILY Qty: 5 0RF Continued albuterol sulfate 90 mcg/actuation HFA aerosol inhaler 2 puff inhalation Q6H PRN (Reason: shortness of breath or wheezing) Qty: 8.5 0RF ibuprofen 800 mg tablet 800 mg PO Q8H PRN (Reason: pain) Qty: 30 0RF Linzess 145 mcg capsule 145 mcg PO QDAY Qty: 30 0RF lamotrigine 200 mg tablet 200 mg PO BID Qulipta 60 mg tablet 60 mg PO DAILY Reyvow 100 mg tablet 100 mg PO PRN sumatriptan succinate 6 mg/0.5 mL pen injector 6 mg SUBCUT Q12H PRN (Reason: MIGRAINE) zolpidem [Ambien CR] 12.5 mg tablet,ext release multiphase 12.5 mg PO QHS PRN (Reason: insomnia) aripiprazole 20 mg tablet 15 mg PO QHS Trulicity 1.5 mg/0.5 mL pen injector 1.5 mg subcut FR Rx Instructions: takes on tuesdays. clonidine HCl 0.2 mg tablet 0.2 mg PO TID (DME) Dexcom G7 Retail Merchandiser Technician Misc See Rx Instructions .Route Qty: 1 5RF Rx Instructions: As directed (DME) Dexcom G6 Transmitter Device See Rx Instructions .Route Qty: 1 5RF Rx Instructions: As directed epinephrine [EpiPen 2-Scout] 0.3 mg/0.3 mL auto-injector 0.3 mg IM Q5-15M PRN (Reason: anaphylaxis) Qty: 2 1RF Rx Instructions: do not exceed 3 doses per episode cetirizine 10 mg tablet 10 mg PO DAILY PRN (Reason: allergy symptoms) Qty: 90 1RF (DME) lancets [OneTouch UltraSoft 2 Lancet] 30 gauge misc See Rx Instructions .Route Qty: 200 0RF Rx Instructions: Use once daily to check blood glucose level (DME) OneTouch Verio test strips Strip See Rx Instructions .Route Qty: 100 0RF Rx Instructions: Use one strip once per day to check blood glucose level acetaminophen [Tylenol Extra Strength] 500 mg tablet 1,000 mg PO Q8 PRN (Reason: fever or pain) Qty: 60 0RF (DME) Dexcom G7 Sensor Device See Rx Instructions .Route Qty: 1 5RF Rx Instructions: As directed sumatriptan succinate 100 mg tablet See Rx Instructions PO .COMPLEX Qty: 12 0RF Rx Instructions: take 1 tab at onset of headache; if no relief, may repeat 1 tab after at least 2 hrs; max = 2 tabs/24 hrs PO pantoprazole 40 mg tablet,delayed release (DR/EC) 40 mg PO QDAY Qty: 90 0RF promethazine [Promethegan] 25 mg suppository 25 mg GA Q6H PRN PRN (Reason: for nausea/vomiting) Qty: 12 0RF gabapentin 400 mg capsule 400 mg PO TID Qty: 90 0RF docusate sodium [Colace] 100 mg capsule 100 mg PO DAILY PRN (Reason: constipation) Qty: 30 0RF Referrals / Follow Up: Rashawn Yip PA [Primary Care Provider] - Within 1 Week Disposition Disposition (needs filled in before D/C Order can be placed): Home, Self Care Charges/Coding Visit Charges Inpatient E&M: 33248 Disch Hosp >30min
[2025-03-07] MEDS: 0.9% Saline Lock 10 ML Syringe IV (12:36)
[2025-03-07 14:45] VITALS: BP 138/88; PULSE 98; RESP 18; TEMP 36.1; O2SAT 97
[2025-03-07] MEDS: 0.9 % NaCl (Sterile) Posiflush 10 mL IV (15:34)
[2025-03-10 13:25] LABS: Folate, Hemolysate Test 404.0 ng/mL (Not Estab.); Folate, RBC (Hct) Test 28.1 % (34.0-46.6); Folates, RBC Test 1438 ng/mL (>498)
== END 2025-03-07 17:05 | disposition home or self-care (01) | DRG 139 ==
LOC: ED 15:49 → PCU 19:03
PROVIDERS: Physician Assistant; Admitting Provider Hospitalist; Emergency Provider Student in an Organized Health Care Education/Training Program; PCP Physician Assistant; Visit Provider Student in an Organized Health Care Education/Training Program
DX: J18.9 Pneumonia, unspecified organism (principal); D68.2 Hereditary deficiency of other clotting factors; E87.1 Hypo-osmolality and hyponatremia; N17.9 Acute kidney failure, unspecified; J90 Pleural effusion, not elsewhere classified; F31.9 Bipolar disorder, unspecified; D50.9 Iron deficiency anemia, unspecified; Z68.37 Body mass index [BMI] 37.0-37.9, adult; K21.9 Gastro-esophageal reflux disease without esophagitis; F41.9 Anxiety disorder, unspecified; G43.909 Migraine, unspecified, not intractable, without status migrainosus; E66.812 Obesity, class 2; B96.20 Unspecified Escherichia coli [E. coli] as the cause of diseases classified elsewhere; Z86.718 Personal history of other venous thrombosis and embolism; Z86.711 Personal history of pulmonary embolism; Z79.51 Long term (current) use of inhaled steroids; Z79.899 Other long term (current) drug therapy; N39.0 Urinary tract infection, site not specified
CPT/HCPCS: 36415; 71045; 71275; 80048; 81001; 82570; 82607; 82728; 82747; 83540; 83550; 83880; 84145; 84300; 84484; 84703; 85014; 85025; 85027; 87077; 87086; 87088; 87186; 87631; 93005; 97116; 97162; 97165; 97530; 97535; 97802; 99285; Q9967; A4216

== ENCOUNTER 2025-03-19 11:37 | Inpatient (IN) | payer MEDICAID, SELFPAY ==
[2025-03-19] VITALS (8 sets, daily range): BP systolic 88–129; BP diastolic 52–115; PULSE 74–122; RESP 16–22; TEMP 36.4–37.6; O2SAT 97–100; BMI 37.5; BMI 36.3
--- NOTE | 2025-03-19 12:13 | EDS_ITS ---
HPI History of Present Illness Chief Complaint: Fall Informant: patient Onset/Context/Timing Onset: Weeks (2-1/2) Context: Gradual Onset Timing: Continuous Quality: Weakness, spinning Location: Generalized Worsened by: Nothing Relieved by: Meclizine Narrative Narrative: Patient presents with frequent falls that have been getting worse over the past 2-1/2 weeks. Patient states she fell again this morning. Patient states she has had to call EMS approximately 8 times over the past 2-1/2 weeks to help her up. Patient states she has a history of vertigo. Patient states that she feels like there is a spinning sensation. Patient states that meclizine helps with this at times. Patient states she feels weak all over. Patient states she was recently admitted and was discharged home with a walker. Patient states she has been having difficulty using a walker today. [facility] Medical History CAP (community acquired pneumonia) Generalized weakness Anemia Hx of substance abuse Bipolar disorder Kidney stones GERD (gastroesophageal reflux disease) Non-smoker Easy bruising Dietary restriction Implantable loop recorder present Wears glasses Anxiety MRSA infection Substance abuse History of steroid therapy Diabetes Injury of head and neck History of IBS Gastric reflux Neuropathy delivery delivered Arthritis Prolonged QT interval PCOS (polycystic ovarian syndrome) Factor V Leiden Anxiety Depression Pulmonary embolism DVT (deep venous thrombosis) TIA (transient ischemic attack) Ovarian cyst Home Medications ?Medication ?Instructions ?Recorded ?Last Taken ?Type blood-glucose,market basket maker,cont #1 ea 06/09/24 Unknown Rx (Dexcom G7 Segment Block Layer) blood-glucose transmitter (Dexcom #1 ea 07/09/24 Unkno wn Rx G6 Transmitter device) atogepant 60 mg tablet (Qulipta) 60 mg PO DAILY 10/21/24 History lamotrigine 200 mg tablet 200 mg PO BID 07/14/2410/21 History epinephrine 0.3 mg/0.3 mL 0.3 mg (0.3 mL) IM Q5-15M IN N 10/05/24 Unknown Rx injection, auto-injector (EpiPen anaphylaxis #2 ea 2-Scout) albuterol sulfate 90 mcg/actuation 2 puff inhalation Q 6H PRN 11/19/24 Unknown Rx aerosol inhaler shortness of breath or wheez ing #8.5 grams blood sugar diagnostic ([facility] #[facility] ea 12/02/24 Unkn own Rx Verio test strips) lancets 30 gauge (OneTouch #200 ea 12/02/24 Unknown Rx UltraSoft 2 Lancet) acetaminophen 500 mg tablet 1,000 mg (2 x 500 mg) PO Q 8 PRN 12/08/24 Unknown Rx (Tylenol Extra Strength) fever or pain #60 tabs blood-glucose sensor (Dexcom G7 #1 ea 12/09/24 Unknown Rx Sensor device) sumatriptan succinate 6 mg/0.5 mL 6 mg subcut Q12H PRN MIGRAINE 12/11/24 Unknown History subcutaneous pen injector zolpidem 12.5 mg tablet,extended 12.5 mg PO QHS PRN in somnia 12/18/24 Unknown History release,multiphase (Ambien CR) aripiprazole 20 mg tablet 15 mg PO QHS MOOD STABILIZER 01/02/25 Unknown History sumatriptan succinate 100 mg tablet See Rx Instruction s PO .COMPLEX 01/11/25 Unknown Rx #12 tabs pantoprazole 40 mg tablet,delayed 40 mg PO QDAY #90 ta bs 01/25/25 Unknown Rx release linaclotide 145 mcg capsule 145 mcg PO QDAY #30 caps 0 02/26/25 Unknown Rx (Linzess) docusate sodium 100 mg capsule 100 mg PO DAILY PRN con stipation 03/01/25 Unknown Rx (Colace) #30 caps gabapentin 400 mg capsule 400 mg PO TID #90 caps 03/01 Unknown Rx dulaglutide 1.5 mg/0.5 mL 1.5 mg subcut FR 03/04/25 Un known History subcutaneous pen injector (Trulicity) clonidine HCl 0.2 mg tablet 0.2 mg PO TID anxiety 02/13 09/08 Unknown History promethazine 25 mg rectal 25 mg IN Q6H PRN nausea and 03/07/25 Unknown Rx suppository vomiting #12 ea furosemide 20 mg tablet (Lasix) 20 mg PO BID #20 tabs 03/11/25 Unknown Rx
--- NOTE | 2025-03-19 12:13 | EX.ED.DYSGE1 ---
HPI History of Present Illness Chief Complaint: Fall Informant: patient Onset/Context/Timing Onset: Weeks (2-1/2) Context: Gradual Onset Timing: Continuous Quality: Weakness, spinning Location: Generalized Worsened by: Nothing Relieved by: Meclizine Narrative Narrative: Patient presents with frequent falls that have been getting worse over the past 2-1/2 weeks. Patient states she fell again this morning. Patient states she has had to call EMS approximately 8 times over the past 2-1/2 weeks to help her up. Patient states she has a history of vertigo. Patient states that she feels like there is a spinning sensation. Patient states that meclizine helps with this at times. Patient states she feels weak all over. Patient states she was recently admitted and was discharged home with a walker. Patient states she has been having difficulty using a walker today. [facility] Medical History CAP (community acquired pneumonia) Generalized weakness Anemia Hx of substance abuse Bipolar disorder Kidney stones GERD (gastroesophageal reflux disease) Non-smoker Easy bruising Dietary restriction Implantable loop recorder present Wears glasses Anxiety MRSA infection Substance abuse History of steroid therapy Diabetes Injury of head and neck History of IBS Gastric reflux Neuropathy delivery delivered Arthritis Prolonged QT interval PCOS (polycystic ovarian syndrome) Factor V Leiden Anxiety Depression Pulmonary embolism DVT (deep venous thrombosis) TIA (transient ischemic attack) Ovarian cyst Home Medications ?Medication ?Instructions ?Recorded ?Last Taken ?Type blood-glucose,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,cont #1 ea 06/09/24 Unknown Rx (Dexcom G7 Bereavement Program Coordinator) blood-glucose transmitter (Dexcom #1 ea 07/09/24 Unknown Rx G6 Transmitter device) atogepant 60 mg tablet (Qulipta) 60 mg PO DAILY 07/14/24 10/21/24 History lamotrigine 200 mg tablet 200 mg PO BID 07/14/24 10/21/24 History epinephrine 0.3 mg/0.3 mL 0.3 mg (0.3 mL) IM Q5-15M PRN 10/05/24 Unknown Rx injection, auto-injector (EpiPen anaphylaxis #2 ea 2-Scout) albuterol sulfate 90 mcg/actuation 2 puff inhalation Q6H PRN 11/19/24 Unknown Rx aerosol inhaler shortness of breath or wheezing #8.5 grams blood sugar diagnostic (OneTouch #100 ea 12/02/24 Unknown Rx Verio test strips) lancets 30 gauge (OneTouch #200 ea 12/02/24 Unknown Rx UltraSoft 2 Lancet) acetaminophen 500 mg tablet 1,000 mg (2 x 500 mg) PO Q8 PRN 12/08/24 Unknown Rx (Tylenol Extra Strength) fever or pain #60 tabs blood-glucose sensor (Dexcom G7 #1 ea 12/09/24 Unknown Rx Sensor device) sumatriptan succinate 6 mg/0.5 mL 6 mg subcut Q12H PRN MIGRAINE 12/11/24 Unknown History subcutaneous pen injector zolpidem 12.5 mg tablet,extended 12.5 mg PO QHS PRN insomnia 12/18/24 Unknown History release,multiphase (Ambien CR) aripiprazole 20 mg tablet 15 mg PO QHS MOOD STABILIZER 01/02/25 Unknown History sumatriptan succinate 100 mg tablet See Rx Instructions PO .COMPLEX 01/11/25 Unknown Rx #12 tabs pantoprazole 40 mg tablet,delayed 40 mg PO QDAY #90 tabs 01/25/25 Unknown Rx release linaclotide 145 mcg capsule 145 mcg PO QDAY #30 caps 02/26/25 Unknown Rx (Linzess) docusate sodium 100 mg capsule 100 mg PO DAILY PRN constipation 03/01/25 Unknown Rx (Colace) #30 caps gabapentin 400 mg capsule 400 mg PO TID #90 caps 03/01/25 Unknown Rx dulaglutide 1.5 mg/0.5 mL 1.5 mg subcut FR 03/04/25 Unknown History subcutaneous pen injector (Trulicity) clonidine HCl 0.2 mg tablet 0.2 mg PO TID anxiety 03/05/25 Unknown History promethazine 25 mg rectal 25 mg ND Q6H PRN nausea and 03/07/25 Unknown Rx suppository vomiting #12 ea furosemide 20 mg tablet (Lasix) 20 mg PO BID #20 tabs 03/11/25 Unknown Rx Allergy/AdvReac Type Severity Reaction Status Date / Time bee venom protein (honey Allergy Severe Anaphylaxis Verified 03/11/25 10:29 bee) (bee sting) ziprasidone (From Geodon) Allergy Severe facial Verified 03/11/25 10:29 swelling ciprofloxacin (From Cipro) Allergy Intermediate Angioedema Verified 03/11/25 10:29 levofloxacin (From Levaquin) Allergy Intermediate Angioedema Verified 03/11/25 10:29 adhesive tape Allergy Mild Rash Verified 03/11/25 10:29 latex Allergy Mild Rash Verified 03/11/25 10:29 Iodinated Contrast Media Allergy Hives Verified 03/11/25 10:29 ondansetron (From Zofran) Allergy Hives Verified 03/11/25 10:29 propranolol Allergy Angioedema Verified 03/11/25 10:29 midazolam (From Versed) AdvReac Severe Other Verified 03/11/25 10:29 Family History Other Autoimmune disorder Bleeding disorder Breast cancer CVA (cerebral vascular accident) Colon cancer Diabetes Heart disease Hypertension Myocardial infarction Ovarian cancer Thyroid disorder Surgical History History of vascular access device Port-A-Cath in place H/O hernia repair H/O wisdom tooth extraction H/O oophorectomy Hx of cholecystectomy H/O tubal ligation Social History adopted: No household members: children and none number of children: 2 current occupational status: unemployed pets and animals: No sexually active: No Smoking Status: Never smoker alcohol intake: never substance use type: does not use caffeine: No frequency: 3-4 times per week do you feel safe at home: Yes ROS ROS ED Constitutional Constitutional ED: Reports chills and subjective; Denies fever(s) Eyes Eyes: Reports diplopia; Denies blurry vision ENT ENT ED: Denies rhinorrhea or sore throat Cardiovascular Cardiovascular: Denies chest pain or palpitations Respiratory/Chest Respiratory/Chest: Denies cough or dyspnea Gastrointestinal Gastrointestinal: Reports abdominal pain, nausea and vomiting Genitourinary Genitourinary ED: Denies dysuria or hematuria Musculoskeletal Musculoskeletal: Reports neck pain; Denies back pain Integumentary Denies abscess or rash Neurologic Neurologic: Reports headache(s) and weakness Allergic/Immunologic Allergic/Immunologic ED: Denies mouth swelling or urticaria EXAM Physical Exam Const Vital Signs: 03/19/25 11:38 03/19/25 11:45 03/19/25 12:36 Temperature 98.4 F Temperature Source Oral Pulse Rate 122 H 120 H Respiratory Rate 16 16 Respiratory Effort Normal Non-Labored Respiratory Depth Normal Blood Pressure 129/115 H 105/56 L Blood Pressure Mean 119 72 Pulse Ox 100 100 Oxygen Delivery Method Room Air Room Air Room Air 03/19/25 13:45 03/19/25 15:00 Temperature Temperature Source Pulse Rate 110 H 74 Respiratory Rate 22 H 16 Respiratory Effort Respiratory Depth Blood Pressure 96/65 98/56 L Blood Pressure Mean 75 70 Pulse Ox 100 97 Oxygen Delivery Method Room Air Room Air Positive well nourished and well developed Constitutional Narrative: BMI is 37.5. General Appearance ED: well developed and NAD HEENT Reports moist mucous membranes HEENT Narrative: There is mild tenderness over the right parietal area. Neck supple and no JVD Resp normal respiratory effort and clear to auscultation bilaterally Auscultation: diminished lung sounds bilateral Cardio regular rhythm Rate: tachycardic GI non-tender and non-distended Palpation: soft Extremity General Extremety ED: Yes edema; Negative for tenderness General Extremity: edema Neuro oriented x3, CN's II-XII intact bilaterally and no sensory deficits noted Sensorium / Orientation: alert Motor Exam: general weakness Psych mental status grossly normal MDM MDM MDM Narrative Medical decision making narrative: Differential diagnosis includes acute on chronic kidney disease, dehydration, congestive heart failure, pulmonary edema, cardiac dysrhythmia, cardiac ischemia, closed head injury, intracranial bleeding, and vertigo. CBC will be obtained to assess for leukocytosis and anemia. Basic metabolic profile will be obtained to assess for electrolyte abnormality and renal function. BNP will be obtained to assess for congestive heart failure or dehydration. High-sensitivity troponin will be obtained to assess for cardiac ischemia. 2-hour repeat high-sensitivity troponin will be obtained to assess for ongoing cardiac ischemia. CT scan of the brain will be obtained to assess for intracranial bleeding. Chest x-ray will be obtained to assess for congestive heart failure and pneumonia. EKG will be obtained to assess for cardiac dysrhythmia and cardiac ischemia. Lab Data Attestation: I reviewed the patient's lab results. Lab results narrative: CBC was reviewed. There is a chronic anemia with a hemoglobin of 7.8 and hematocrit 24.1. These are unchanged compared to previous results. Basic metabolic profile was reviewed. Creatinine was slightly elevated at 1.21 and BUN was 24. Glucose was mildly elevated at 150. The remainder is within normal limits. Initial high-sensitivity troponin was reviewed and was minimally elevated at 20. 2-hour repeat high-sensitivity troponin was reviewed and was 16. BNP was reviewed and was slightly elevated at 500. Urinalysis was reviewed. There is no evidence of urinary tract infection or hematuria. There are 5-10 epithelial cells. Labs: Laboratory Results - last 24 hr 03/19/25 03/19/25 03/19/25 13:13 14:38 14:55 WBC 4.5 RBC 2.91 L Hgb 7.8 L Hct 24.1 L MCV 82.8 MCH 26.8 L MCHC 32.4 RDW Std Deviation 56.2 H RDW Coeff of Millie 18.6 H Plt Count 398 MPV 8.6 Immature Gran % (Auto) 0.400 Neut % (Auto) 69.6 Lymph % (Auto) 18.7 L Dickson % (Auto) 8.9 Eos % (Auto) 2.0 Baso % (Auto) 0.4 Absolute Neuts (auto) 3.1 Absolute Lymphs (auto) 0.84 Nucleated RBC % 0 Differential Comment SCANNED Sodium 137 Potassium 3.6 Chloride 98 Carbon Dioxide 29.1 Anion Gap 11 BUN 24 H Creatinine 1.21 H Estim Creat Clear Calc 67.52 Est GFR (MDRD) Non-Af 61 BUN/Creatinine Ratio 19.5 Glucose 150 H Calcium 8.0 Troponin T High Sens 20 H D Troponin T Hi Sens 2 Hr 16 H NT pro BNP II 500 H Urine Color Yellow Urine Clarity Clear Urine pH 6.0 Ur Specific Lutz 1.010 Urine Protein Negative Urine Glucose (UA) Normal Urine Ketones Negative Urine Occult Blood Negative Urine Nitrite Negative Urine Bilirubin Negative Urine Urobilinogen Normal Ur Leukocyte Esterase Negative Urine RBC 0 SEEN Urine WBC 0-5 SEEN Ur Squamous Epith Cells 5-10 SEEN Urine Bacteria 0 SEEN Hyaline Casts 50-100 SEEN Urine Mucus 0 SEEN Radiography Chest X-Ray - ED: 2 View, Read by ED Physician and Read by Radiologist Diagnostic Testing: Clinical Impression(s) from Imaging Studies Brain CT 03/19/25 13:30 IMPRESSION: No acute intracranial abnormality. Reading Location: [facility] Chest X-Ray 03/19/25 13:35 IMPRESSION: NO ACUTE FINDINGS. Reading Location: [place] [id number] CT scan of the brain was obtained. There is no acute intracranial abnormality. This was interpreted by the radiologist and was also independently reviewed by myself. PA and lateral chest x-ray was obtained. There are 2 views. On my independent interpretation, lung castillo are clear. There is normal cardiac silhouette. Bony thorax is normal. There is no acute process noted. Radiologist also interpreted the x-ray and agrees. EKG Initial EKG: Attestation: I personally reviewed and interpreted this EKG as follows: Interpretation: Sinus Tachycardia (116) and Non-Specific ST Changes Comments: EKG was obtained. On my independent interpretation, it showed a sinus tachycardia with a rate of 116. ND interval, QRS interval, and QTc intervals were all normal. [place] was normal. There are no acute ST or T wave changes. Prior EKG tracings: available for review Prior: Unchanged (03/04/2025) Management Discussion w/another healthcare provider: Hospitalist and night worker/Case management Treatment and Re-Evaluation :: Patient was ordered Phenergan and gabapentin. Patient refused this. Patient states that Phenergan does not work for her and she is unable to keep her normal gabapentin down. Patient requested Reglan, Benadryl, and Toradol. These were ordered. Patient was advised of her findings. night worker was in to evaluate the patient and stated the patient would need to be admitted to the hospital overnight to be approved for extended-care facility placement. Case was discussed with the hospitalist. She will admit the patient for observation. Patient understood and was agreeable with the plan. All questions were answered. Discharge Plan Triage Chief Complaint: Fall ED Provider: Justyn Pendleton Dx/Rx/DC Orders Clinical Impression: Frequent falls, Head injury, Type 2 diabetes mellitus, Bilateral lower extremity edema, Nausea and vomiting Prescriptions: No Action albuterol sulfate 90 mcg/actuation HFA aerosol inhaler 2 puff inhalation Q6H PRN (Reason: shortness of breath or wheezing) Qty: 8.5 0RF Linzess 145 mcg capsule 145 mcg PO QDAY Qty: 30 0RF furosemide [Lasix] 20 mg tablet 20 mg PO BID Qty: 20 0RF lamotrigine 200 mg tablet 200 mg PO BID Qulipta 60 mg tablet 60 mg PO DAILY sumatriptan succinate 6 mg/0.5 mL pen injector 6 mg SUBCUT Q12H PRN (Reason: MIGRAINE) zolpidem [Ambien CR] 12.5 mg tablet,ext release multiphase 12.5 mg PO QHS PRN (Reason: insomnia) aripiprazole 20 mg tablet 15 mg PO QHS Trulicity 1.5 mg/0.5 mL pen injector 1.5 mg subcut FR Rx Instructions: takes on tuesdays. clonidine HCl 0.2 mg tablet 0.2 mg PO TID promethazine 25 mg suppository 25 mg ND Q6H PRN (Reason: nausea and vomiting) Qty: 12 0RF (DME) Dexcom G7 Bereavement Program Coordinator Misc See Rx Instructions .Route Qty: 1 5RF Rx Instructions: As directed (DME) Dexcom G6 Transmitter Device See Rx Instructions .Route Qty: 1 5RF Rx Instructions: As directed epinephrine [EpiPen 2-Scout] 0.3 mg/0.3 mL auto-injector 0.3 mg IM Q5-15M PRN (Reason: anaphylaxis) Qty: 2 1RF Rx Instructions: do not exceed 3 doses per episode (DME) lancets [OneTouch UltraSoft 2 Lancet] 30 gauge misc See Rx Instructions .Route Qty: 200 0RF Rx Instructions: Use once daily to check blood glucose level (DME) OneTouch Verio test strips Strip See Rx Instructions .Route Qty: 100 0RF Rx Instructions: Use one strip once per day to check blood glucose level acetaminophen [Tylenol Extra Strength] 500 mg tablet 1,000 mg PO Q8 PRN (Reason: fever or pain) Qty: 60 0RF (DME) Dexcom G7 Sensor Device See Rx Instructions .Route Qty: 1 5RF Rx Instructions: As directed sumatriptan succinate 100 mg tablet See Rx Instructions PO .COMPLEX Qty: 12 0RF Rx Instructions: take 1 tab at onset of headache; if no relief, may repeat 1 tab after at least 2 hrs; max = 2 tabs/24 hrs PO pantoprazole 40 mg tablet,delayed release (DR/EC) 40 mg PO QDAY Qty: 90 0RF gabapentin 400 mg capsule 400 mg PO TID Qty: 90 0RF docusate sodium [Colace] 100 mg capsule 100 mg PO DAILY PRN (Reason: constipation) Qty: 30 0RF Primary Care Provider: Rashawn Yip Referrals: Rashawn Yip, MJ [Primary Care Provider] - Print Language: Puerto Rican Disposition Disposition: Acute Care Hospital [facility]
--- NOTE | 2025-03-19 12:20 | EKG12_ITS ---
Test Reason : GENERAL Blood Pressure : */* mmHG Vent. Rate : 116 BPM Atrial Rate : * BPM P-R Int : * ms QRS Dur : 92 ms QT Int : 452 ms P-R-T Axes : * 28 66 degrees QTcB Int : 628 ms Critical Test Result: Long QTc Sinus tachycardia Prolonged QT Abnormal ECG Confirmed by Rajat Lawson ([id number]), magazine editor FAWN HAYWOOD ([id number]) on 03/23/2025 6:09:03 AM Referred By: Confirmed By: Rajat Lawson
--- NOTE | 2025-03-19 13:05 | NURSING ---
vad accessed with no diff but unable to draw or flush. pt reported that had trouble before with pt ok with straight peripheral iv
[2025-03-19 13:30] LABS: Hematocrit 24.1 % (37-47); Hemoglobin 7.8 g/dL (12.0-15.0); Immature Granulocytes Count 0.020 X10^3/uL (0.0-0.0); Mean Corp Hgb Conc 32.4 g/dL (32-36); Mean Corpuscular Volume 82.8 fL (81-99); Mean Platelet Vol. 8.6 fl (6.2-12.0); NRBC Flagged by Analyzer 0 % (0-5); POSITIVE MORPHOLOGY YES; Platelet Count 398 K/mm3 (150-450); RBC Distribution Width CV 18.6 % (11.6-14.6); RBC Distribution Width SD 56.2 fl (35.1-43.9); Red Blood Count 2.91 M/mm3 (4.2-5.4); White Blood Count 4.5 K/mm3 (4.4-11.0)
--- NOTE | 2025-03-19 13:30 | CT_ITS ---
PROCEDURE: BRAIN/HEAD WITHOUT CONTRAST 03/19/2025 REASON FOR EXAM: WEAKNESS, DIZZINESS TECHNIQUE: Procedure Code: CTBR Modality: CT Procedure: BRAIN/HEAD WITHOUT CONTRAST Coronal and Sagittal reconstruction series were provided. One or more dose reduction techniques were used (e.g., Automated exposure control, adjustment of the mA and/or kV according to patient size, use of iterative reconstruction technique. RADIATION DOSE SUMMARY: CTDlvol: 47 mGy DLP: 890 mGycm COMPARISON: October 21, 2024 FINDINGS: Brain: There is no evidence of hemorrhage, acute ischemia or mass. No extra- axial fluid collection, midline shift or mass effect. CSF Spaces: Normal Sinuses/Mastoids: Clear. Bones: No fracture CT/Brain/Head without Contrast IMPRESSION: No acute intracranial abnormality. Reading Location: [id number]
--- NOTE | 2025-03-19 13:35 | RAD_ITS ---
PROCEDURE: CHEST PA AND LATERAL 03/19/2025 REASON FOR EXAM: DYSPNEA TECHNIQUE: Procedure Code: RADCXR Modality: DX Procedure: CHEST PA AND LATERAL COMPARISON: Prior study dated March 06, 2025. FINDINGS: Hardware: A left-sided port a catheter is seen with the tip at the junction of the superior vena cava and right atrium. A loop recording device is seen overlying the left side of the heart. Heart: The heart size is normal. Mediastinum: The mediastinal contour is unremarkable. Lungs: The lungs are clear. Bones: The bones are unremarkable. RAD/Chest PA and Lateral IMPRESSION: NO ACUTE FINDINGS. Reading Location: [place] [id number]
[2025-03-19 13:45] LABS: Differential Indicated SCAN CRITERIA MET
[2025-03-19 13:46] LABS: Differential Comment SCANNED
[2025-03-19 14:10] LABS: Anion Gap 11 (5-15); BUN 24 mg/dL (4-19); BUN/Creat Ratio 19.5 RATIO (10-20); Calcium,Total 8.0 mg/dL (7.6-11.0); Carbon Dioxide 29.1 mmol/L (21.0-32.0); Chloride 98 mmol/L (98-108); Estimated Creatinine Clearance 67.52 ml/min (50-250); Glucose 150 mg/dL (70-99); Potassium 3.6 mmol/L (3.3-5.1); Pro- Brain NATRIURETIC PEPTIDE 500 pg/mL (<=450)
[2025-03-19 14:32] LABS: Troponin T High Sensitivity 20 ng/L (<=14)
[2025-03-19 14:42] LABS: Mucous, Urine 0 SEEN /hpf (<or=2+); Red Blood Cells-Urine 0 SEEN /hpf (0-5)
[2025-03-19 14:44] LABS: Color, Urine Yellow (Yellow); Glucose, Dipstick Normal (Normal); Ketone-Dipstick Negative (Negative); Leukocyte Esterase-Dipstick Negative /ul (Negative); Nitrite-Dipstick Negative (Negative); Occult Blood-Urine Negative /ul (Negative); Protein-Dipstick Negative (Negative); Specific Gravity, Urine 1.010 (1.002-1.030); Urine Bilirubin Dipstick Negative (Negative)
[2025-03-19 15:02] LABS: Squamous Epithelial Cells - UA 5-10 SEEN /hpf (5-10)
[2025-03-19 15:39] LABS: Troponin T High Sens 2 HR 16 ng/L (<=14)
[2025-03-19] MEDS: Ketorolac 30 MG/ML Syringe IV (16:20)
[2025-03-19] MEDS: DiphenhydrAMINE 50 MG/ML Syringe 25 MG IV (16:20)
--- NOTE | 2025-03-19 16:25 | CASEMGMT ---
Social Work SW met with patient and patients director case management, Cleo Sugey ([phone]). Cleo states that patient has had an increase in falls over the last several weeks and has had to call EMS roughly 8 times for assistance. Patient states that she had been able to use a walker for ambulation but currently the walker is not enough assistance. Cleo and patient believe that patient would benefit from a SNF stay for rehab. Cleo was notified, with patients permission, of patient being admitted to [facility]. No further needs identified at this time. Hallie Costa, FILM PROJECTOR OPERATOR, SALES CONTRACTS ANALYST
--- NOTE | 2025-03-19 16:25 | PCM.HP.STD ---
HPI - General General Date of Admission: 03/19/25 Date of Service: 03/19/25 Chief Complaint: gen weakness, leg swelling, falls, n/v HPI Narrative ERIN TORRES, is a 35-year-old female history of migraines, bipolar disorder, GERD, hx of substance abuse presented [facility] ED 03/19/2025 with frequent falls worsening over the past 2-1/2 weeks with a fall again this morning. Reports she had to call EMS 8 times over the past 2-1/2 weeks to help her up. Does have a history of vertigo and feels like she has a spinning sensation, meclizine does help with this at times but she reports she feels weak all over. Was recently admitted and discharged home with a walker but felt she was having more difficulty using her walker today. In the ED temp 98.4, heart rate 122, blood pressure 129/115, respiratory rate 16 pulse ox 100% on room air. CBC with white blood cell count of 4.5, hemoglobin 7.8, BMP w/ BUN 24 and Cr 1.21 up from 0.5 03/07/25 with baseline around 0.7, troponin 20 with a repeat 16, proBNP 500, UA not suggestive of infection. CT head no acute findings, chest x-ray no acute process. Given patient's complaints of generalized weakness, nausea vomiting, leg swelling and falls hospitalist contacted for admission. Patient evaluated bedside and had multiple complaints. Reports that over the past 2-1/2 weeks she has felt weak all over with pain and swelling in her legs, sometimes will feel a spinning sensation like vertigo but other times is more just weak. Denies any abdominal or current chest pain, notes she has rib pain that she says is kind of in the front but had difficulty defining this further. Does report chronic constipation and has not had a bowel movement in 3 weeks, has been feeling nauseous with vomiting and therefore has not been eating or drinking very well over the past couple of weeks. Notes she has irregular menstruation but has not had her period in 7 weeks and has not had any bleeding so she is not sure why her blood counts are low. She thinks maybe she has had a fever off and on over the past week or so but did not quantify that further. Does get headaches which are chronic, also reports sometimes she twitching episodes. Occasionally will feel confused as well. [facility] Medical History CAP (community acquired pneumonia) Generalized weakness Anemia Hx of substance abuse Bipolar disorder Kidney stones GERD (gastroesophageal reflux disease) Non-smoker Easy bruising Dietary restriction Implantable loop recorder present Wears glasses Anxiety MRSA infection Substance abuse History of steroid therapy Diabetes Injury of head and neck History of IBS Gastric reflux Neuropathy delivery delivered Arthritis Prolonged QT interval PCOS (polycystic ovarian syndrome) Factor V Leiden Anxiety Depression Pulmonary embolism DVT (deep venous thrombosis) TIA (transient ischemic attack) Ovarian cyst Home Medications ?Medication ?Instructions ?Recorded ?Last Taken ?Type blood-glucose,photographic process attendant,cont #1 ea 06/09/24 Unknown Rx (Dexcom G7 Dust Sampler) blood-glucose transmitter (Dexcom #1 ea 07/09/24 Unknown Rx G6 Transmitter device) atogepant 60 mg tablet (Qulipta) 60 mg PO DAILY 07/14/24 10/21/24 History lamotrigine 200 mg tablet 200 mg PO BID 07/14/24 10/21/24 History epinephrine 0.3 mg/0.3 mL 0.3 mg (0.3 mL) IM Q5-15M PRN 10/05/24 Unknown Rx injection, auto-injector (EpiPen anaphylaxis #2 ea 2-Scout) albuterol sulfate 90 mcg/actuation 2 puff inhalation Q6H PRN 11/19/24 Unknown Rx aerosol inhaler shortness of breath or wheezing #8.5 grams blood sugar diagnostic (OneTouch #100 ea 12/02/24 Unknown Rx Verio test strips) lancets 30 gauge (OneTouch #200 ea 12/02/24 Unknown Rx UltraSoft 2 Lancet) acetaminophen 500 mg tablet 1,000 mg (2 x 500 mg) PO Q8 PRN 12/08/24 Unknown Rx (Tylenol Extra Strength) fever or pain #60 tabs blood-glucose sensor (Dexcom G7 #1 ea 12/09/24 Unknown Rx Sensor device) sumatriptan succinate 6 mg/0.5 mL 6 mg subcut Q12H PRN MIGRAINE 12/11/24 Unknown History subcutaneous pen injector zolpidem 12.5 mg tablet,extended 12.5 mg PO QHS PRN insomnia 12/18/24 Unknown History release,multiphase (Ambien CR) sumatriptan succinate 100 mg tablet See Rx Instructions PO .COMPLEX 01/11/25 Unknown Rx #12 tabs pantoprazole 40 mg tablet,delayed 40 mg PO QDAY #90 tabs 01/25/25 Unknown Rx release linaclotide 145 mcg capsule 145 mcg PO QDAY #30 caps 02/26/25 Unknown Rx (Linzess) docusate sodium 100 mg capsule 100 mg PO DAILY PRN constipation 03/01/25 Unknown Rx (Colace) #30 caps gabapentin 400 mg capsule 400 mg PO TID #90 caps 03/01/25 Unknown Rx dulaglutide 1.5 mg/0.5 mL 1.5 mg subcut FR 03/04/25 Unknown History subcutaneous pen injector (Trulicity) clonidine HCl 0.2 mg tablet 0.2 mg PO TID anxiety 03/05/25 Unknown History promethazine 25 mg rectal 25 mg WA Q6H PRN nausea and 03/07/25 Unknown Rx suppository vomiting #12 ea furosemide 20 mg tablet (Lasix) 20 mg PO BID #20 tabs 03/11/25 Unknown Rx aripiprazole 15 mg tablet 15 mg PO DAILY 03/19/25 Unknown History famotidine 20 mg tablet 20 mg PO DAILY 03/19/25 Unknown History Allergy/AdvReac Type Severity Reaction Status Date / Time bee venom protein (honey Allergy Severe Anaphylaxis Verified 03/11/25 10:29 bee) (bee sting) ziprasidone (From Geodon) Allergy Severe facial Verified 03/11/25 10:29 swelling ciprofloxacin (From Cipro) Allergy Intermediate Angioedema Verified 03/11/25 10:29 levofloxacin (From Levaquin) Allergy Intermediate Angioedema Verified 03/11/25 10:29 adhesive tape Allergy Mild Rash Verified 03/11/25 10:29 latex Allergy Mild Rash Verified 03/11/25 10:29 Iodinated Contrast Media Allergy Hives Verified 03/11/25 10:29 ondansetron (From Zofran) Allergy Hives Verified 03/11/25 10:29 propranolol Allergy Angioedema Verified 03/11/25 10:29 midazolam (From Versed) AdvReac Severe Other Verified 03/11/25 10:29 Family History Other Autoimmune disorder Bleeding disorder Breast cancer CVA (cerebral vascular accident) Colon cancer Diabetes Heart disease Hypertension Myocardial infarction Ovarian cancer Thyroid disorder Surgical History History of vascular access device Port-A-Cath in place H/O hernia repair H/O wisdom tooth extraction H/O oophorectomy Hx of cholecystectomy H/O tubal ligation Social History adopted: No household members: children and none number of children: 2 current occupational status: unemployed pets and animals: No sexually active: No Smoking Status: Never smoker alcohol intake: never substance use type: does not use caffeine: No frequency: 3-4 times per week do you feel safe at home: Yes ROS ROS Narrative General: She thinks maybe she has had fevers HENT: Does get headaches, denies stuffy nose, denies sore throat EYES: Denies changes in vision Resp: Denies cough, denies shortness of breath Cardiac: Denies current chest pain GI: Denies abdominal pain, has had nausea and vomiting with poor p.o. intake, has been constipated with no bowel movement in around 3 weeks : Denies changes in urination Extremity: Increased swelling in lower extremities MSK: Diffuse weakness Neuro: Chronic problems with neuropathy Heme: Denies any bleeding or bruising Skin: Denies rashes Psychiatric: Frustrated by her symptoms Vital Signs Vital Signs Vital Signs: 03/19/25 11:38 03/19/25 11:45 03/19/25 12:36 Temperature 98.4 F Temperature Source Oral Pulse Rate 122 H 120 H Respiratory Rate 16 16 Respiratory Effort Normal Non-Labored Respiratory Depth Normal Blood Pressure 129/115 H 105/56 L Blood Pressure Mean 119 72 Pulse Ox 100 100 Oxygen Delivery Method Room Air Room Air Room Air 03/19/25 13:45 03/19/25 15:00 Temperature Temperature Source Pulse Rate 110 H 74 Respiratory Rate 22 H 16 Respiratory Effort Respiratory Depth Blood Pressure 96/65 98/56 L Blood Pressure Mean 75 70 Pulse Ox 100 97 Oxygen Delivery Method Room Air Room Air Weight Weight: 89.993 kg Body Mass Index (BMI) 37.5 Physical Exam Narrative General: Resting comfortably but would answer questions appropriately HEENT: normocephalic Eyes: Anicteric, normal conjunctiva, extraocular movements grossly intact Neck: Supple Respiratory: Clear to auscultation bilaterally, normal respiratory effort Cardiovascular: Regular rate and rhythm GI: Soft, nontender, nondistended Extremities: 1-2+ bilateral lower extremity pitting edema Musculoskeletal: Moving all extremities Neuro: No overt focal neurological deficits Skin: No rashes appreciated Psych: Initially cooperative, became agitated and uncooperative at end of interview Results Lab / Micro Data 03/19/25 13:13 03/19/25 13:13 Labs: Laboratory Results - last 24 hr 03/19/25 13:13: WBC 4.5, RBC 2.91 L, Hgb 7.8 L, Hct 24.1 L, MCV 82.8, MCH 26.8 L, MCHC 32.4, RDW Std Deviation 56.2 H, RDW Coeff of Millie 18.6 H, Plt Count 398, MPV 8.6, Immature Gran % (Auto) 0.400, Neut % (Auto) 69.6, Lymph % (Auto) 18.7 L, [place] % (Auto) 8.9, Eos % (Auto) 2.0, Baso % (Auto) 0.4, Absolute Neuts (auto) 3.1, Absolute Lymphs (auto) 0.84, Nucleated RBC % 0, Differential Comment SCANNED, Sodium 137, Potassium 3.6, Chloride 98, Carbon Dioxide 29.1, Anion Gap 11, BUN 24 H, Creatinine 1.21 H, Estim Creat Clear Calc 67.52, Est GFR (MDRD) Non-Af 61, BUN/Creatinine Ratio 19.5, Glucose 150 H, Calcium 8.0, Troponin T High Sens 20 H D, NT pro BNP II 500 H 03/19/25 14:38: Urine Color Yellow, Urine Clarity Clear, Urine pH 6.0, Ur Specific [place] 1.010, Urine Protein Negative, Urine Glucose (UA) Normal, Urine Ketones Negative, Urine Occult Blood Negative, Urine Nitrite Negative, Urine Bilirubin Negative, Urine Urobilinogen Normal, Ur Leukocyte Esterase Negative, Urine RBC 0 SEEN, Urine WBC 0-5 SEEN, Ur Squamous Epith Cells 5-10 SEEN, Urine Bacteria 0 SEEN, Hyaline Casts 50-100 SEEN, Urine Mucus 0 SEEN 03/19/25 14:55: Troponin T Hi Sens 2 Hr 16 H Imaging Radiology Impression Brain CT 03/19/25 13:30 IMPRESSION: No acute intracranial abnormality. Reading Location: [facility] Chest X-Ray 03/19/25 13:35 IMPRESSION: NO ACUTE FINDINGS. [facility] & Plan Assessment/Plan (1) Frequent falls: PLAN: Plan # Nausea and vomiting with severe constipation -No bowel movement in 3 weeks, does have IBS-C and reports infrequent bowel movements but said this is longer per usual than her -Will check KUB -Will check lipase -Placed order for suppository -Will check UDS -Also check serum , patient with history of tubal ligation and left-sided nephrectomy however given she has not had a period in 7 weeks and has nausea and vomiting feel it is reasonable to check - Monitor I's and O's - IVF - Clear liquid diet and advance as tolerated -Supportive care -Also had scopolamine patch - Does have history of GERD, will continue PPI but changed to IV - Would benefit from scheduling bowel regimen from the top 1 which patient's nausea and vomiting improving # Lower extremity swelling - Patient with increased bilateral lower extremity swelling for 2 weeks - Does have elevated BNP for age as well - Will check echocardiogram - Elevate extremities -Daily weights, I's and O's - Patient has had nausea and vomiting with poor p.o., suspect that she is intravascularly depleted so we will give gentle hydration at this time while awaiting echo and further information - Chest x-ray clear, do not think patient acutely needs Lasix at this time # Elevated creatinine - Patient's had vacillating creatinines however creatinine 1.21 with most recent creatinine of 0.5, baseline seems to be around 0.7 - Most likely due to patient's nausea and vomiting and poor p.o. - Gentle IV fluids as above #Frequent falls -Fall precautions -Patient reports feeling generally weak and having pain in her legs with the swelling - PT/OT - Further evaluation of her weakness and swelling as above - Case management consult - Will check TSH and magnesium # Bipolar disorder -Continue patient's home Abilify # History of substance use disorder -Denies any recent use - Will be checking UDS as above - It appears patient fill Suboxone on outpatient basis, do not see this on home med list #GERD -Continue PPI, switch to IV as above # Normocytic anemia -Appears to be chronic, unclear etiology -Denies recent period or any other overt bleeding -Will check iron panel and retake count -Can consider further workup pending results #Migraines - Continue home meds #DVT ppx: SCDs Jayda Melendez MD Time spent in the patient's overall evaluation,decision-making process, review of diagnostic data, adjustment of management, discussion with other providers, nursing nursing and ancillary staff involved in patient's care documentation, 81 Minutes Charges/Coding Visit Charges Inpatient E&M: 17161 Init Hosp L3
--- NOTE | 2025-03-19 17:12 | ECHOD_ITS ---
Reason For Study Reason For Study: BLE EDEMA & ELVATED BNP Procedure This was a 2D Doppler, Color Flow transthoracic echocardiogram. Exam performed portable in patient room. Left Ventricle Normal LV size. The estimated ejection fraction is 65 %. No evidence for diastolic dysfunction. No regional wall motion abnormalities noted. Right Ventricle Normal RV size. Normal systolic function. Atria The left and right atria are normal. No doppler evidence for ASD. Mitral Valve There is no mitral valve stenosis. Trivial mitral valve insufficiency. Tricuspid Valve There is no tricuspid stenosis. Trivial tricuspid valve insufficiency. Unable to estimate RV systolic pressure due to insufficient tricuspid regurgitant envelope. Aortic Valve Trisinus/trileaflet aortic valve. There is no aortic stenosis. No aortic valve insufficiency. Pulmonic Valve There is no pulmonic valvular stenosis. No pulmonic valve insufficiency. Great Vessels Normal sized aortic root. Pericardium/Pleural Trivial pericardial effusion. MMode/2D Measurements & Calculations LVIDd: 4.4 cm IVSd: 0.93 cm Ao root diam: 2.4 cm LVIDs: 2.6 cm LVPWd: 0.99 cm RVDd: 3.1 cm FS: 41.5 % LAV(MOD-bp): 46.3 ml LVAd ap4: 27.7 cm2 SV(MOD-sp4): 56.5 ml LAV(MOD-bp) Indexed: 24.6 ml/m2 LVLd ap4: 7.9 cm SI(MOD-sp4): 30.0 ml/m2 LAV(MOD-sp2): 56.0 ml EDV(MOD-sp4): 80.2 ml LAV(MOD-sp4): 37.5 ml EDV(sp4-el): 82.5 ml LVAs ap4: 13.0 cm2 LVLs ap4: 6.0 cm ESV(MOD-sp4): 23.8 ml ESV(sp4-el): 23.9 ml EF(MOD-sp4): 70.4 % EF(sp4-el): 71.0 % SV(sp4-el): 58.6 ml LA A4 area: 16.2 cm2 LA dimension(2D): 3.6 cm RA A4 area: 9.9 cm2 TAPSE: 2.2 cm Time Measurements MV dec time: 0.17 sec Doppler Measurements & Calculations MV E max anshul: 110.0 cm/sec Lat Peak E' Anshul: 26.7 cm/sec Med Peak E' Anshul: 18.1 cm/sec MV A max anshul: 121.0 cm/sec E/E' lat: 4.1 E/E' med: 6.1 MV E/A: 0.91 Ao V2 max: 182.0 cm/sec LV V1 max: 143.5 cm/sec PA V2 max: 145.7 cm/sec Ao max P.3 mmHg LV V1 max P.2 mmHg Ao V2 mean: 129.9 cm/sec LV V1 mean P.1 mmHg Ao mean P.6 mmHg LV V1 mean: 107.3 cm/sec Ao V2 VTI: 35.8 cm LV V1 VTI: 27.1 cm AV (velocity ratio): 0.76 ECHO/Echo Complete Interpretation Summary The estimated ejection fraction is 65 %. No evidence for diastolic dysfunction. Trivial mitral valve insufficiency. Ordering Physician: Jayda Melendez Referring Physician: Rashawn Yip Performed By: Orly Ochoa, BORA, RVT
[2025-03-19 17:41] LABS: Immature Reticulocyte Fraction 27.70 % (3.00-15.90); Platelet Count 429 K/mm3 (150-450); Reticulocyte Count 6.13 % (0.5-1.5)
[2025-03-19 18:04] LABS: Ferritin 165 ng/mL (22-378)
[2025-03-19 18:17] LABS: Barbiturate Urine NEGATIVE (< 200 ng/mL); Benzodiazepine Urine NEGATIVE (< 200 ng/mL); PCP Urine NEGATIVE (< 25 ng/mL); THC Urine NEGATIVE (< 50 ng/mL)
--- NOTE | 2025-03-19 18:23 | RAD_ITS ---
PROCEDURE: ABDOMEN SINGLE VIEW (PORTABLE) 03/19/2025 REASON FOR EXAM: INTRACTABLE N/V TECHNIQUE: Procedure Code: RADABD_P Modality: DX Procedure: ABDOMEN SINGLE VIEW (PORTABLE) COMPARISON: None FINDINGS: Limitations: Free air and air-fluid levels can not be assessed on supine views obtained. Gastrointestinal: Gas-filled distended loops of bowel within the central abdomen over 4 cm in diameter may be secondary to peristalsis, ileus or obstruction. Clinical correlation is advised. There is some gas and fecal material within portions of the colon. If there is suspected obstruction or inflammatory change within the peritoneal cavity, consider CT with contrast for complete assessment. Diaphragm: There is elevation of the right hemidiaphragm of indeterminate significance. Soft tissues: Surgical clips seen in the right upper quadrant. No soft tissue calcification seen. Osseous: No acute fracture seen. RAD/Abdomen Single View (Portable) IMPRESSION: Gas-filled distended small bowel loops. - Findings, differential and recommendations discussed above. Reading Location: [id number]
[2025-03-19 18:33] LABS: Iron 6 ug/dL (50-170); Iron Binding Capacity,Unsat 93 ug/dL (228-428); Lipase 6 U/L (13-75)
[2025-03-19 18:50] LABS: Iron Binding Capacity,Total 99 ug/dL (250-450)
--- NOTE | 2025-03-19 19:05 | PCM.HOSP.N ---
Hospitalist Note Patient significantly microcytic on iron studies, will give IV iron in order fecal occult, additionally KUB with gas-filled distended small bowel loops which could be peristalsis, ileus, or obstruction. Given patient's symptoms and this is very nonspecific we will proceed with CT of the abdomen if not able to take the p.o. contrast will just do IV, ordered the Benadryl and steroids for premedication given listed allergy of hives
[2025-03-19 19:41] LABS: Troponin T High Sens 4 HR 17 ng/L (<=14)
[2025-03-19] MEDS: DiphenhydrAMINE 50 MG/ML Syringe IV (20:28)
[2025-03-19] MEDS: Scopolamine 1mg/72hr Patch 1 PATCH TD (20:48)
--- NOTE | 2025-03-19 21:34 | CT_ITS ---
PROCEDURE: ABDOMEN/PELVIS WITH CONTRAST 03/19/2025 REASON FOR EXAM: ABNORMAL KUB, NAUSEA, VOMITING TECHNIQUE: Procedure Code: [id number] Modality: CT Procedure: ABDOMEN/PELVIS WITH CONTRAST Coronal and Sagittal reconstruction series were provided. CONTRAST: Isovue 370 VOLUME: 100 mL One or more dose reduction techniques were used (e.g., Automated exposure control, adjustment of the mA and/or kV according to patient size, use of iterative reconstruction technique. RADIATION DOSE SUMMARY: CTDlvol: 30 mGy DLP: 1158 mGycm COMPARISON: 02/16/2025 FINDINGS: No liver masses. Gallbladder surgically absent. Portal vein is patent. Normal appearance of the spleen. There is no pancreatic mass or inflammation. There is no hydronephrosis or renal calculus. The abdominal aorta is normal in caliber. There is a moderate degree of stool throughout the colon without colonic wall thickening. There is no abscess or free air. There is diffuse increased caliber of the small bowel which extends all the way to the ileocecal valve. CT/Abdomen/Pelvis WITH Contrast IMPRESSION: Small bowel dilatation without transition point to decreased caliber. Findings could represent enteritis or small bowel ileus in the proper clinical setting. There is questionable mild hyperenhancement in th e region of the terminal ileum on image 96. The possibility of inflammatory bowel disease could also be raised Reading [facility]
[2025-03-19] MEDS: 0.9% Saline Lock 10 ML Syringe IV (21:50)
[2025-03-19] MEDS: Pantoprazole Sodium 40 MG in 0.9% Normal Saline (100mL MB+) 100 ML 300 MG IV (21:50)
[2025-03-19] MEDS: 0.9% Normal Saline (1000mL) 1,000 ML 75 ML IV (21:51)
[2025-03-19] MEDS: Sodium Ferric Gluconat/Sucrose 250 MG in 0.9% Normal Saline (250mL Bag) 250 ML 135 MG IV (22:40)
--- NOTE | 2025-03-19 23:25 | PCM.HOSP.N ---
Hospitalist Note Abd/pelvis CT completed with PO contrast: Small bowel dilatation without transition point to decreased caliber. Findings could represent enteritis or small bowel ileus in the proper clinical setting. There is questionable mild hyperenhancement in the region of the terminal ileum on image 96. The possibility of inflammatory bowel disease could also be raised. No obstruction, or partial obstruction, noted. Will start metoclopramide 5mg IV q6h scheduled to facilitate motility. She is to be kept NPO x sips w/meds. In the event of intractable nausea and vomiting, NGT is to be placed. Discussed all with nrsg.
[2025-03-20] VITALS (7 sets, daily range): BP systolic 93–107; BP diastolic 58–82; PULSE 98–110; RESP 12–18; TEMP 36.5–37.1; O2SAT 95–100; BMI 36.1
[2025-03-20] MEDS: 0.9% Saline Lock 10 ML Syringe IV (04:12)
[2025-03-20 04:48] LABS: Hematocrit 20.3 % (37-47); Hemoglobin 6.5 g/dL (12.0-15.0); Immature Granulocytes Count 0.010 X10^3/uL (0.0-0.0); Mean Corp Hgb Conc 32.0 g/dL (32-36); Mean Corpuscular Volume 82.5 fL (81-99); Mean Platelet Vol. 8.1 fl (6.2-12.0); NRBC Flagged by Analyzer 0 % (0-5); POSITIVE MORPHOLOGY YES; Platelet Count 375 K/mm3 (150-450); RBC Distribution Width CV 18.6 % (11.6-14.6); RBC Distribution Width SD 55.5 fl (35.1-43.9); Red Blood Count 2.46 M/mm3 (4.2-5.4); White Blood Count 4.5 K/mm3 (4.4-11.0)
[2025-03-20 05:48] LABS: Anion Gap 9 (5-15); BUN 22 mg/dL (4-19); BUN/Creat Ratio 22.2 RATIO (10-20); Calcium,Total 7.6 mg/dL (7.6-11.0); Carbon Dioxide 27.7 mmol/L (21.0-32.0); Chloride 101 mmol/L (98-108); Estimated Creatinine Clearance 81.67 ml/min (50-250); Glucose 111 mg/dL (70-99); Magnesium 2.0 mg/dL (1.5-2.2); Potassium 3.4 mmol/L (3.3-5.1)
[2025-03-20 06:53] LABS: Differential Comment SCANNED; Differential Indicated SCAN CRITERIA MET
--- NOTE | 2025-03-20 07:47 | PCM.PN.HOSP ---
Reason for Visit Chief Complaint: gen weakness, leg swelling, falls, n/v Subjective Subjective Patient is a 35-year-old lady who presented with frequent falls. She had also apparently complained of nausea and vomiting with severe constipation admitted to monitored bed for further management. Objective Data Objective Data Vital Signs: Vital Signs Temp Pulse Resp BP Pulse Ox O2 Del Method 98.4 F 110 H 18 93/61 95 Room Air 03/20/25 03:45 03/20/25 03:45 03/20/25 03:45 03/20/25 03:45 03/20/25 03:45 03/20/25 03:45 Oxygen Delivery Method Room Air Weight: 86.7 kg Body Mass Index (BMI) 36.1 Intake & Output: Intake and Output for Last 24 Hours 03/18/25 03/19/25 03/20/25 23:59 23:59 23:59 Intake Total 300 / 300 270 / 270 Output Total 0 / 0 Balance 300 / 300 270 / 270 Lab / Micro Data 03/20/25 04:33 03/20/25 04:33 Labs: Laboratory Results - last 24 hr 03/19/25 13:13: WBC 4.5, RBC 2.91 L, Hgb 7.8 L, Hct 24.1 L, MCV 82.8, MCH 26.8 L, MCHC 32.4, RDW Std Deviation 56.2 H, RDW Coeff of Millie 18.6 H, Plt Count 398, MPV 8.6, Immature Gran % (Auto) 0.400, Neut % (Auto) 69.6, Lymph % (Auto) 18.7 L, [place] % (Auto) 8.9, Eos % (Auto) 2.0, Baso % (Auto) 0.4, Absolute Neuts (auto) 3.1, Absolute Lymphs (auto) 0.84, Nucleated RBC % 0, Differential Comment SCANNED, Retic Count 6.13 H, Immature Retic Fraction 27.70 H, Retic Hgb Equivalent 26.6 L, Sodium 137, Potassium 3.6, Chloride 98, Carbon Dioxide 29.1, Anion Gap 11, BUN 24 H, Creatinine 1.21 H, Estim Creat Clear Calc 67.52, Est GFR (MDRD) Non-Af 61, BUN/Creatinine Ratio 19.5, Glucose 150 H, Calcium 8.0, Troponin T High Sens 20 H D, NT pro BNP II 500 H 03/19/25 14:38: Urine Color Yellow, Urine Clarity Clear, Urine pH 6.0, Ur Specific [place] 1.010, Urine Protein Negative, Urine Glucose (UA) Normal, Urine Ketones Negative, Urine Occult Blood Negative, Urine Nitrite Negative, Urine Bilirubin Negative, Urine Urobilinogen Normal, Ur Leukocyte Esterase Negative, Urine RBC 0 SEEN, Urine WBC 0-5 SEEN, Ur Squamous Epith Cells 5-10 SEEN, Urine Bacteria 0 SEEN, Hyaline Casts 50-100 SEEN, Urine Mucus 0 SEEN, Urine Opiates Screen NEGATIVE, U Buprenorphine Qual PRESUMPTIVE POSITIVE, Ur Oxycodone Screen NEGATIVE, Urine Methadone Screen NEGATIVE, Urine Fentanyl Screen NEGATIVE, Ur Barbiturates Screen NEGATIVE, Ur Phencyclidine Scrn NEGATIVE, Ur Amphetamines Screen NEGATIVE, U Benzodiazepines Scrn NEGATIVE, Urine Cocaine Screen NEGATIVE, U Cannabinoids Screen NEGATIVE 03/19/25 14:55: Iron 6 L, TIBC 99 L, Iron Saturation 6.1 L, Unsaturated IBC 93 L, Ferritin 165, Troponin T Hi Sens 2 Hr 16 H, Lipase 6 L 03/19/25 19:13: Troponin T Hi Sens 4Hr 17 H 03/20/25 04:33: WBC 4.5, RBC 2.46 L, Hgb 6.5 L, Hct 20.3 L, MCV 82.5, MCH 26.4 L, MCHC 32.0, RDW Std Deviation 55.5 H, RDW Coeff of Millie 18.6 H, Plt Count 375, MPV 8.1, Immature Gran % (Auto) 0.200, Neut % (Auto) 63.8, Lymph % (Auto) 25.3, [place] % (Auto) 9.9, Eos % (Auto) 0.4, Baso % (Auto) 0.4, Absolute Neuts (auto) 2.9, Absolute Lymphs (auto) 1.15, Nucleated RBC % 0, Differential Comment SCANNED, Sodium 137, Potassium 3.4, Chloride 101, Carbon Dioxide 27.7, Anion Gap 9, BUN 22 H, Creatinine 0.98, Estim Creat Clear Calc 81.67, Est GFR (MDRD) Non-Af 78, BUN/Creatinine Ratio 22.2 H, Glucose 111 H, Calcium 7.6, Magnesium 2.0, TSH 1.740 Radiography Diagnostic Testing: Radiology Impression Brain CT 03/19/25 13:30 IMPRESSION: No acute intracranial abnormality. Reading Location: [id number] Chest X-Ray 03/19/25 13:35 IMPRESSION: NO ACUTE FINDINGS. [facility] 03/19/25 18:23 IMPRESSION: Gas-filled distended small bowel loops. - Findings, differential and recommendations discussed above. Reading Location: [id number] Abdomen/Pelvis CT 03/19/25 21:34 IMPRESSION: Small bowel dilatation without transition point to decreased caliber. Findings could represent enteritis or small bowel ileus in the proper clinical setting. There is questionable mild hyperenhancement in the region of the terminal ileum on image 96. The possibility of inflammatory bowel disease could also be raised Reading [facility] Physical Exam Narrative GENERAL: cooperative HEENT: Atraumatic; normocephalic EYES; Anicteric, Normal Conjunctiva NECK; supple, normal thyroid, RESPIRATORY: Diminished to auscultation CARDIOVASCULAR: Regular S1 S2, GI: soft, normoactive bowel sounds, : No Renal angle tenderness; EXTREMITIES: No edema, no clubbing, MUSCULOSKELETAL: no muscle wasting NEURO: Awake; no lateralizing signs. SKIN: No Rash PSYCH; Flat affect Assessment & Plan Assessment/Plan (1) Frequent falls: PLAN: Plan Patient is a 35-year-old lady who presented with frequent falls. She had also apparently complained of nausea and vomiting with severe constipation admitted to monitored bed for further management. 1. Intractable nausea vomiting in the setting of severe constipation ? CT of the abdomen and pelvis obtained on admission demonstrated Small bowel dilatation without transition point to decreased caliber. Findings could represent enteritis or small bowel ileus in the proper clinical setting. There is questionable mild hyperenhancement in the region of the terminal ileum on image 96. The possibility of inflammatory bowel disease could also be raised. Plan is for patient to be started on clear liquid to be advance as tolerated 2. Severe anemia ? Ordered iron studies in addition to B12 levels. Consult placed to GI. Also did send for stool for guaiac 3. Frequent falls ?? Symptomatic anemia requested for PT OT eval imaging studies did not show any fractures 4. Acute renal insufficiency ? Started on IV fluid with subsequent monitoring of electrolyte 5. Bipolar disorder - did continue patient antipsychotics 6. Class II obesity with BMI of 36 ? Complicating care weight loss advised 7. GERD ? Patient is on PPI continue 8. DVT prophylaxis ? Bilateral SCDs Time spent in the patient's overall evaluation,decision-making process, review of diagnostic data, adjustment of management, discussion with other providers, nursing nursing and ancillary staff involved in patient's care documentation, 50 Minutes Charges/Coding Visit Charges Inpatient E&M: [address] [facility] Hosp L3
[2025-03-20] MEDS: Pantoprazole Sodium 40 MG in 0.9% Normal Saline (100mL MB+) 100 ML 300 MG IV ×2 (09:53→21:18)
[2025-03-20 10:33] LABS: Internal QC Validated? YES +Cl - CLEAR BKGD; Pregnancy, Urine Negative Negative
[2025-03-20 10:34] LABS: Record Kit Lot#,Urine Preg 0000947241
[2025-03-20 12:41] LABS: Vitamin B12 1053 pg/mL (180-914)
--- NOTE | 2025-03-20 13:55 | CASEMGMT ---
Addendum entered by Merari Phillips 03/20/25 14:37: Social Work Referral was made in [facility] to [facility]. SW notified physician of referral. SW will follow up Saturday, will make referral to [facility] if SNF is no longer needed. SW will continue to follow. Pt does have a walker from the last hospital stay. LUDMILA Hameed Original Note: Social Work SW met w/pt, pt familiar to this SW from last hospital stay. Pt states she has been having a difficult time, at times, taking care of herself at home. She states has had to call the squad three times to help her up after she fell. After this last time she agreed to come to the hospital. SW spoke w/pt about discharge plan. Last time pt was here, SW was not able to set up [facility] due to pt's insurance not being accepted or agencies not taking pts. We reviewed returning home vs going somewhere this time for rehab. However, pt did walk about 180 feet w/PT. SW provided to pt a list from [facility] of penitentiary facilities, in network w/pt's insurance, in pt's preferred geographic area, and complete w/quality and resource use data. Pt states her mother is in [facility], and if she had to go somewhere, would like a referral sent there. SW explained we can start the referral, however will likely not have an answer until Saturday. SW explained to pt if she does feel that she is able to return home tomorrow, and the physician plans to d/c, she can still go home. However, if pt is still here Saturday SW will follow up w/her on Saturday. We spoke also about pt's MH and diagnoses. Pt states she has been diagnosed w/depression, anxiety, and medical PTSD. She sees psychiatry, a therapist and a CM(Manuel Mayes, ) at [facility]. Pt has had a CM for almost two years. Pt is satisfied w/her services and does not need any additional referrals at this time. SW did ask pt about recent psychiatric placements. Pt states most recently had a psychiatric placement in 2023, also had a placement in 2022. SW explained to pt if she were to go to SNF it will trigger for a further review, meaning she would need to stay here until someone is able to come from [place] [facility] to assess to determine if SNF placement is appropriate. Pt states understanding. SW inquired about DD services, pt has never had any DD services. SW also spoke w/pt about a Waiver application and a CCN referral. Pt is open to both. Waiver application completed and put in the mail. SW will make a CCN referral if pt does not go to SNF. SW will continue to follow. LUDMILA Hameed
--- NOTE | 2025-03-20 18:54 | CON.PCM.GI_ITS ---
HPI Consult Data Date of Consult: 03/20/25 HPI Narrative Reason for Consultation: Anemia and abnormal imaging HPI Narrative: ERIN TORRES, is a 35-year-old female patient with a history of migraines, bipolar disorder, GERD, and substance abuse presents with new anemia and increasing weakness. Symptoms began gradually over the past 3-4 months, resulting in significant weakness and fatigue. The weakness is described as generalized and debilitating, impacting the ability to perform daily activities. Associated symptoms include lightheadedness when standing, palpitations, and shortness of breath with mild exertion. Skin has become paler over several months. Denies significant blood loss such as heavy menstrual bleeding, black or tarry stools, or rectal bleeding. There are no known injuries or recent surgeries. The patient has not sought medical care for these symptoms until yesterday. She reports the pain is cramping, constant, and rates it as a 6/10. It is exacerbated by eating and is not relieved by [id number] antacids. She has had a decreased appetite and feels full after only a few bites. The patient reports no bowel movements for the past 3 days but has passed flatus. She denies fever, chills, or bloody stools. The patient takes ibuprofen 800 mg and Indomethacin for migraine headaches. Abdominal Computed Tomography (CT) Scan: * Findings:?Dilated, fluid-filled loops of small bowel with thickened, hyperenhancing encarnacion. A transition point is not clearly identified, but mesenteric fat stranding and free fluid are noted. The overall appearance suggests enteritis or an ileus, possibly related to chronic NSAID use. * Impression:?Small bowel enteritis or non-mechanical ileus; NSAID-induced enteropathy is a strong consideration given the patient's history.? [facility] Medical History (Updated 03/20/25 @ 19:[address] Gold Friend, DO) Anemia CAP (community acquired pneumonia) Generalized weakness Hx of substance abuse Bipolar disorder Kidney stones GERD (gastroesophageal reflux disease) Non-smoker Easy bruising Dietary restriction Implantable loop recorder present Wears glasses Anxiety MRSA infection Substance abuse History of steroid therapy Diabetes Injury of head and neck History of IBS Gastric reflux Neuropathy delivery delivered Arthritis Prolonged QT interval PCOS (polycystic ovarian syndrome) Factor V Leiden Anxiety Depression Pulmonary embolism DVT (deep venous thrombosis) TIA (transient ischemic attack) Ovarian cyst Home Medications ?Medication ?Instructions ?Recorded ?Last Taken ?Type blood-glucose,film masker,cont #1 ea 06/09/24 Unknown Rx (Dexcom G7 Shipper/Receiver) blood-glucose transmitter (Dexcom #1 ea 07/09/24 Unkno wn Rx G6 Transmitter device) atogepant 60 mg tablet (Qulipta) 60 mg PO DAILY 10/21/24 History lamotrigine 200 mg tablet 200 mg PO BID 07/14/2410/21 History epinephrine 0.3 mg/0.3 mL 0.3 mg (0.3 mL) IM Q5-15M OK N 10/05/24 Unknown Rx injection, auto-injector (EpiPen anaphylaxis #2 ea 2-Scout) albuterol sulfate 90 mcg/actuation 2 puff inhalation Q 6H PRN 11/19/24 Unknown Rx aerosol inhaler shortness of breath or wheez ing #8.5 grams blood sugar diagnostic (OneTouch #100 ea 12/02/24 Unkn own Rx Verio test strips) lancets 30 gauge (OneTouch #200 ea 12/02/24 Unknown Rx UltraSoft 2 Lancet) acetaminophen 500 mg tablet 1,000 mg (2 x 500 mg) PO Q 8 PRN 12/08/24 Unknown Rx (Tylenol Extra Strength) fever or pain #60 tabs blood-glucose sensor (Dexcom G7 #1 ea 12/09/24 Unknown Rx Sensor device) sumatriptan succinate 6 mg/0.5 mL 6 mg subcut Q12H PRN MIGRAINE 12/11/24 Unknown History subcutaneous pen injector zolpidem 12.5 mg tablet,extended 12.5 mg PO QHS PRN in somnia 12/18/24 Unknown History release,multiphase (Ambien CR) sumatriptan succinate 100 mg tablet See Rx Instruction s PO .COMPLEX 01/11/25 Unknown Rx #12 tabs pantoprazole 40 mg tablet,delayed 40 mg PO QDAY #90 ta bs 01/25/25 Unknown Rx release linaclotide 145 mcg capsule 145 mcg PO QDAY #30 caps 0 02/26/25 Unknown Rx (Linzess) docusate sodium 100 mg capsule 100 mg PO DAILY PRN con stipation 03/01/25 Unknown Rx (Colace) #30 caps gabapentin 400 mg capsule 400 mg PO TID #90 caps 03/01 Unknown Rx dulaglutide 1.5 mg/0.5 mL 1.5 mg subcut FR 03/04/25 Un known History subcutaneous pen injector (Trulicity) clonidine HCl 0.2 mg tablet 0.2 mg PO TID anxiety 02/13 09/08 Unknown History promethazine 25 mg rectal 25 mg OK Q6H PRN nausea and 03/07/25 Unknown Rx suppository vomiting #12 ea furosemide 20 mg tablet (Lasix) 20 mg PO BID #20 tabs 03/11/25 Unknown Rx aripiprazole 15 mg tablet 15 mg PO DAILY 03/19/25 Unkn own History famotidine 20 mg tablet 20 mg PO DAILY 03/19/25 Unkn own History Allergy/AdvReac Type Severity Reaction Status Date / Time bee venom protein (honey Allergy Severe Anaphylaxis Verified 03/11/25 10:29 bee) (bee sting) ziprasidone (From Geodon) Allergy Severe facial Verified 03/11/25 10:29 swelling ciprofloxacin (From Cipro) Allergy Intermediate Angioedema Verified 03/11/25 10:29 levofloxacin (From Levaquin) Allergy Intermediate Angioedema Verified 03/11/25 10:29 adhesive tape Allergy Mild Rash Verified 03/11/25 10:29 latex Allergy Mild Rash Verified 03/11/25 10:29 Iodinated Contrast Media Allergy Hives Verified 03/11/25 10:29 ondansetron (From Zofran) Allergy Hives Verified 03/11/25 10:29 propranolol Allergy Angioedema Verified 03/11/25 10:29 midazolam (From Versed) AdvReac Severe Other Verified 03/11/25 10:29 Family History Other Autoimmune disorder Bleeding disorder Breast cancer CVA (cerebral vascular accident) Colon cancer Diabetes Heart disease Hypertension Myocardial infarction Ovarian cancer Thyroid disorder Surgical History History of vascular access device Port-A-Cath in place H/O hernia repair H/O wisdom tooth extraction H/O oophorectomy Hx of cholecystectomy H/O tubal ligation Social History adopted: No household members: children and none number of children: 2 current occupational status: unemployed pets and animals: No sexually active: No Smoking Status: Never smoker alcohol intake: never substance use type: does not use caffeine: No frequency: 3-4 times per week do you feel safe at home: Yes ROS Constitutional Constitutional: Denies fatigue, fever(s), poor appetite, weight gain or weight loss Gastrointestinal Gastrointestinal: Denies belching, bloating, change in bowel habits, change in stool character, chewing difficulty, coffee ground emesis, constipation, cramping, diarrhea, dyspepsia, dysphagia, early satiety, excessive flatus, fecal incontinence, heartburn, hematemesis, hematochezia, hemorrhoids, loose stools, melena, nausea, odynophagia, rectal bleeding, tenesmus, vomiting or weight changes Physical Exam Const alert, oriented x3, no apparent distress and healthy appearing General Appearance: cooperative GI normal to inspection, nondistended, normoactive bowel sounds, soft to palpation, non-tender and non-distended Percussion: normal to percussion Rectal Exam: deferred Lab / Micro Data 03/20/25 04:33 03/20/25 04:33 Labs: Laboratory Results - last 24 hr 03/19/25 14:38: Urine Test Negative 03/19/25 19:13: Troponin T Hi Sens 4Hr 17 H 03/20/25 04:33: WBC 4.5, RBC 2.46 L, Hgb 6.5 L, Hct 20.3 L, MCV 82.5, MCH 26.4 L , MCHC 32.0, RDW Std Deviation 55.5 H, RDW Coeff of Millie 18.6 H, Plt Count 375, MPV 8.1, Immature Gran % (Auto) 0.200, Neut % (Auto) 63.8, Lymph % (Auto) 25.3, [place] % (Auto) 9.9, Eos % (Auto) 0.4, Baso % (Auto) 0.4, Absolute Neuts (auto) 2.9, Absolute Lymphs (auto) 1.15, Nucleated RBC % 0, Differential Comment SCANNED, Sodium 137, Potassium 3.4, Chloride 101, Carbon Dioxide 27.7, Anion Gap 9, BUN 22 H, Creatinine 0.98, Estim Creat Clear Calc 81.67, Est GFR (MDRD) Non- Af 78, BUN/Creatinine Ratio 22.2 H, Glucose 111 H, Calcium 7.6, Magnesium 2.0, V itamin B12 1053 H, TSH 1.740 03/20/25 12:06: Blood Type A POSITIVE, Antibody Screen NEGATIVE, Crossmatch See Detail Imaging Radiology Impression Echocardiogram 03/19/25 17:12 Interpretation Summary The estimated ejection fraction is 65 %. No evidence for diastolic dysfunction. Trivial mitral valve insufficiency. Ordering Physician: Jayda Melendez Referring Physician: Rashawn Yip Performed By: Orly Ochoa, RDCS, RVT Abdomen/Pelvis CT 03/19/25 21:34 IMPRESSION: Small bowel dilatation without transition point to decreased caliber. Findings could represent enteritis or small bowel ileus in the proper clinical setting. There is questionable mild hyperenhancement in the region of the terminal ileum on image 96. The possibility of inflammatory bowel disease could also be raised Reading Location: [facility] Assessment & Plan Assessment/Plan (1) Nausea and vomiting: (2) Anemia: (3) Abnormal CT of the abdomen: PLAN: Problem List: * New anemia with progressive weakness:?The cause is currently unknown. Potential causes include chronic disease (from bipolar or substance use), nutritional deficiencies (iron, B12, folate), chronic blood loss (e.g., from NSAID use or GERD), hemolysis, or bone marrow disorders. * History of migraines:?Frequent NSAID use is a risk factor for GI bleeding, which could contribute to anemia. * Bipolar disorder:?The patient's psychiatric history may influence compliance with treatment and complicates the clinical picture. There are also associations between mood disorders and anemia. * GERD:?Chronic GERD can contribute to chronic blood loss or be a sign of a more serious GI pathology. Frequent antacid use may also affect iron absorption. * History of substance abuse:?This history puts the patient at higher risk for nutritional deficiencies and conditions that cause anemia. Differential diagnosis: * Primary Diagnosis:?Small bowel enteritis vs. ileus, likely NSAID-induced enteropathy. * Differential Diagnoses: * Mechanical Small Bowel Obstruction (SBO):?Possible due to strictures (diaphragm disease) caused by long-term NSAID use, which can lead to obstruction. * Crohn's Disease:?A chronic inflammatory bowel disease that can mimic NSAID enteropathy. * Infectious Enterocolitis:?Possible but less likely given the lack of fever and bloody stools. * Mesenteric Ischemia:?Considered in severe cases but less likely given the patient's age and clinical picture. * Small Bowel Diaphragm Disease:?A rare but classic complication of chronic NSAID use that can cause intermittent or complete small bowel obstruction * Plan: * Diagnostics: * CBC with differential, CMP, iron studies (serum iron, ferritin, total iron- binding capacity), vitamin B12, and folate levels. She will undergo EGD and colonoscopy. She was explained alternatives, risk and benefits include not withstanding bleeding, infection, sepsis, perforation, need for more surgery . She will have an ASA of 3. * Echo is pending .
[2025-03-20] MEDS: MELATONIN 10 MG TABLET PO (21:18)
[2025-03-21 02:45] VITALS: BP 116/82; PULSE 96; RESP 16; TEMP 36.7; O2SAT 94
[2025-03-21 03:11] VITALS: BMI 36.6
[2025-03-21 05:31] VITALS: BP 125/78; PULSE 94
[2025-03-21] MEDS: 0.9% Saline Lock 10 ML Syringe IV ×2 (05:35→21:07)
[2025-03-21] MEDS: proMETHazine 25 MG/ML Syringe 12.5 MG IM ×3 (06:24→23:17)
[2025-03-21 08:29] VITALS: BP 111/61; PULSE 102; RESP 16; TEMP 36.7; O2SAT 96
--- NOTE | 2025-03-21 08:29 | PCM.PN.HOSP ---
Reason for Visit Chief Complaint: gen weakness, leg swelling, falls, n/v Subjective Subjective Patient seen still complains of nausea. Hemoglobin came up to 8.1 with 1 unit PRBC transfusion. Plan is for patient to undergo both upper and lower endoscopy on 03/22/[address] Layton Objective Data Objective Data Vital Signs: Vital Signs Temp Pulse Resp BP Pulse Ox O2 Del Method 98.0 F 94 16 125/78 H 94 Room Air 03/21/25 02:45 03/21/25 05:31 03/21/25 02:45 03/21/25 05:31 03/21/25 02:45 03/21/25 02:45 Oxygen Delivery Method Room Air Weight: 88 kg Body Mass Index (BMI) 36.6 Intake & Output: Intake and Output for Last 24 Hours 03/19/25 03/20/25 03/21/25 23:59 23:59 23:59 Intake Total 300 / 300 2360 / 2360 60 / 60 Output Total 0 / 0 500 / 500 300 / 300 Balance 300 / 300 1860 / 1860 -240 / -240 Lab / Micro Data 03/21/25 08:47 03/20/25 04:33 Labs: Laboratory Results - last 24 hr 03/19/25 14:38: Urine Test Negative 03/20/25 04:33: Vitamin B12 1053 H 03/20/25 12:06: Blood Type A POSITIVE, Antibody Screen NEGATIVE, Crossmatch See Detail Radiography Diagnostic Testing: Radiology Impression Echocardiogram 03/19/25 17:12 Interpretation Summary The estimated ejection fraction is 65 %. No evidence for diastolic dysfunction. Trivial mitral valve insufficiency. Ordering Physician: Jayda Melendez Referring Physician: Rashawn Yip Performed By: Orly Ochoa, RDCS, RVT Physical Exam Narrative GENERAL: cooperative HEENT: Atraumatic; normocephalic EYES; Anicteric, Normal Conjunctiva NECK; supple, normal thyroid, RESPIRATORY: Diminished to auscultation CARDIOVASCULAR: Regular S1 S2, GI: soft, normoactive bowel sounds, : No Renal angle tenderness; EXTREMITIES: No edema, no clubbing, MUSCULOSKELETAL: no muscle wasting NEURO: Awake; no lateralizing signs. SKIN: No Rash PSYCH; Flat affect Assessment & Plan Assessment/Plan (1) Frequent falls: PLAN: Plan Patient is a 35-year-old lady who presented with frequent falls. She had also apparently complained of nausea and vomiting with severe constipation admitted to monitored bed for further management. 1. Intractable nausea vomiting in the setting of severe constipation ? CT of the abdomen and pelvis obtained on admission demonstrated Small bowel dilatation without transition point to decreased caliber. Findings could represent enteritis or small bowel ileus in the proper clinical setting. There is questionable mild hyperenhancement in the region of the terminal ileum on image 96. The possibility of inflammatory bowel disease could also be raised. Plan is for patient to be started on clear liquid to be advance as tolerated 2. Severe anemia ? Ordered iron studies in addition to B12 levels. Consult placed to GI. Also did send for stool for guaiac ? 03/21/2025; stool did come back positive for occult blood. Hemoglobin came up to 8.1 with 1 unit PRBC transfusion. Plan is for patient to undergo both upper and lower endoscopy on 03/22/[address] Layton 3. Frequent falls ?? Symptomatic anemia requested for PT OT eval imaging studies did not show any fractures 4. Acute renal insufficiency ? Started on IV fluid with subsequent monitoring of electrolyte 5. Bipolar disorder - did continue patient antipsychotics 6. Class II obesity with BMI of 36 ? Complicating care weight loss advised 7. GERD ? Patient is on PPI continue 8. DVT prophylaxis ? Bilateral SCDs Time spent in the patient's overall evaluation,decision-making process, review of diagnostic data, adjustment of management, discussion with other providers, nursing nursing and ancillary staff involved in patient's care documentation, 35 Minutes Charges/Coding Visit Charges Inpatient E&M: 35721 Subs Hosp L2
[2025-03-21 09:21] LABS: Hematocrit 25.8 % (37-47); Hemoglobin 8.1 g/dL (12.0-15.0); Mean Corp Hgb Conc 31.4 g/dL (32-36); Mean Corpuscular Volume 84.9 fL (81-99); Mean Platelet Vol. 7.9 fl (6.2-12.0); Platelet Count 405 K/mm3 (150-450); RBC Distribution Width CV 18.0 % (11.6-14.6); RBC Distribution Width SD 54.7 fl (35.1-43.9); Red Blood Count 3.04 M/mm3 (4.2-5.4); White Blood Count 5.3 K/mm3 (4.4-11.0)
[2025-03-21] MEDS: Pantoprazole Sodium 40 MG in 0.9% Normal Saline (100mL MB+) 100 ML 300 MG IV ×2 (09:38→21:10)
[2025-03-21 10:10] LABS: Anion Gap 9 (5-15); BUN 18 mg/dL (4-19); BUN/Creat Ratio 22.8 RATIO (10-20); Calcium,Total 7.9 mg/dL (7.6-11.0); Carbon Dioxide 26.8 mmol/L (21.0-32.0); Chloride 101 mmol/L (98-108); Estimated Creatinine Clearance 99.62 ml/min (50-250); Glucose 81 mg/dL (70-99); Magnesium 2.1 mg/dL (1.5-2.2); Potassium 3.3 mmol/L (3.3-5.1)
[2025-03-21 14:00] VITALS: BP 110/65; PULSE 91; RESP 17; TEMP 36.8; O2SAT 97
[2025-03-21] MEDS: Polyethylene Glycol 3350 BOWEL PREP PO (17:08)
--- NOTE | 2025-03-21 20:25 | PCM.HOSP.N ---
Hospitalist Note Patient has been refusing the reglan ordered per GI secondary to concerns for hyper status/agitation following. Will trial short course low dose haldol for intractibility.
[2025-03-21 20:45] VITALS: BP 121/78; PULSE 88; RESP 16; TEMP 36.7; O2SAT 98
[2025-03-22] VITALS (12 sets, daily range): BP systolic 104–126; BP diastolic 58–89; PULSE 74–98; RESP 16–18; TEMP 36.3–37.4; O2SAT 94–100; BMI 36.6
[2025-03-22] MEDS: 0.9% Saline Lock 10 ML Syringe IV ×2 (04:03→09:17)
[2025-03-22 04:05] LABS: Hematocrit 25.6 % (37-47); Hemoglobin 8.1 g/dL (12.0-15.0); Mean Corp Hgb Conc 31.6 g/dL (32-36); Mean Corpuscular Volume 83.9 fL (81-99); Mean Platelet Vol. 8.0 fl (6.2-12.0); Platelet Count 376 K/mm3 (150-450); RBC Distribution Width CV 17.7 % (11.6-14.6); RBC Distribution Width SD 54.4 fl (35.1-43.9); Red Blood Count 3.05 M/mm3 (4.2-5.4); White Blood Count 5.8 K/mm3 (4.4-11.0)
[2025-03-22 04:46] LABS: Partial Thromboplast Time 56.7 Seconds (24.1-36.2)
[2025-03-22 04:51] LABS: Prothrombin Time (Protime)PT. 18.9 SECONDS (11.7-14.9)
[2025-03-22 05:12] LABS: Anion Gap 9 (5-15); BUN 15 mg/dL (4-19); BUN/Creat Ratio 23.8 RATIO (10-20); Calcium,Total 7.8 mg/dL (7.6-11.0); Carbon Dioxide 24.8 mmol/L (21.0-32.0); Chloride 103 mmol/L (98-108); Estimated Creatinine Clearance 124.14 ml/min (50-250); Glucose 66 mg/dL (70-99); Potassium 3.2 mmol/L (3.3-5.1)
--- NOTE | 2025-03-22 06:15 | NURSING ---
1st soaps and suds enema given at this time
--- NOTE | 2025-03-22 07:01 | NURSING ---
Second enema given at this time
[2025-03-22] MEDS: Pantoprazole Sodium 40 MG in 0.9% Normal Saline (100mL MB+) 100 ML 300 MG IV ×2 (08:40→21:12)
[2025-03-22] MEDS: proMETHazine 25 MG/ML Syringe 12.5 MG IM ×3 (09:16→21:29)
--- NOTE | 2025-03-22 10:44 | CM.UR ---
Social Work SWs Shawna and Merari met w/pt in room in regard to discharge plan. Pt is not sure at this time if she would want to go to SNF or feels good enough to go home. Pt is having scopes today, SW explained we can check in again tomorrow to see how she is feeling after the scopes. Pt states understanding. SW let pt know that she was accepted at [facility], and we will be in communication w/them, will send updates and possibly start precert. SW did explain that there is not a guarantee that insurance will approve. SW explained we can continue this process, and if she is doing well enough to go home, then we can always change the plan to home. Pt states understanding. SW will send updated to [place] today, and inquire w/them if they want to start the precert or wait. SW will continue to follow. LUDMILA Hameed
--- NOTE | 2025-03-22 10:50 | CASEMGMT ---
Social Work Updates sent to [facility]. SHARON Savage
--- NOTE | 2025-03-22 12:07 | PN.HOSP_ITS ---
Subjective Subjective Feels maybe a little bit better than when she came in but still not great Objective Data Objective Data Vital Signs: Vital Signs Temp Pulse Resp BP Pulse Ox O2 Del Method 97.9 F 96 17 119/84 H 98 Room Air 03/22/25 08:45 03/22/25 08:45 03/22/25 08:45 03/22/25 08:45 03/22/25 08:45 03/22/25 10:00 Oxygen Delivery Method Room Air Weight: 194 lb 0.108 oz Body Mass Index (BMI) 36.6 Intake & Output: Intake and Output for Last 24 Hours 03/21/25 03/22/25 03/23/25 03:59 03:59 03:59 Intake Total 2090 / 2090 1760 / 1760 500 / 500 Output Total 500 / 500 300 / 300 Balance 1590 / 1590 1460 / 1460 500 / 500 Lab / Micro Data 03/22/25 03:53 03/22/25 03:53 Labs: Laboratory Results - last 24 hr 03/22/25 03:53: WBC 5.8, RBC 3.05 L, Hgb 8.1 L, Hct 25.6 L, MCV 83.9, MCH 26.6 L , MCHC 31.6 L, RDW Std Deviation 54.4 H, RDW Coeff of Millie 17.7 H, Plt Count 376, MPV 8.0, PT 18.9 H, INR 1.6, APTT 56.7 H, Sodium 137, Potassium 3.2 L, Chloride 103, Carbon Dioxide 24.8, Anion Gap 9, BUN 15, Creatinine 0.65 L, Estim Creat Clear Calc 124.14, Est GFR (MDRD) Non-Af 119, BUN/Creatinine Ratio 23.8 H, G lucose 66 L, Calcium 7.8 03/22/25 06:01: POC Glucose 63 L Micro: Microbiology 03/21/25 09:05 Stool Stool Occult Blood (SANJUANA) - Final Occult Blood Positive Physical Exam Narrative General: Alert, Oriented x3, Cooperative, No apparent distress HEENT: Atraumatic, PERRLA, EOMI, Normocephalic Oral: Moist Mucosa Neck: Supple, No JVD Lungs: Diminished, Normal air movement, No rhonchi, No wheeze, No rales Cardiovascular: Regular rate, Regular Rhythm, Normal S1, Normal S2, No murmurs Abdomen: Soft, Non Tender, Non-Distended, No Hepato-splenomegaly Extremities: No edema, Capillary Refill Less than 3 Seconds Skin: No rashes, No breakdown Musculoskeletal: No Tenderness to Palpation of Joints or Extremities Neurological: No focal neurological deficits, moves all extremities Psych/Mental Status: Normal Affect, Appropriate Assessment & Plan Assessment/Plan (1) Frequent falls: PLAN: Plan 1. Intractable nausea and vomiting in the setting of constipation with acute blood loss anemia/GERA/GERD ? EGD and colonoscopy pending for today ? Continue PPI ? Continue with bowel regimen ? Vitamin B12 levels are elevated and iron studies are inconclusive with likely anemia of chronic disease/inflammation, there may be an iron deficiency component to it given her GI bleeding ? Continue with nausea medications ? She received 1 unit of PRBCs hemoglobin is stabilized at 8.1 ? GERA is resolved, baseline creatinine 0.7 and her creatinine on admission was 1.21 2. Bipolar disorder ? Stable ? Continue with her home medications DVT: SCDs Charges/Coding Visit Charges Inpatient E&M: 26996 Subs Hosp L2
[2025-03-22] MEDS: Lactated Ringers 1,000 ML 15 ML IV (12:33)
--- NOTE | 2025-03-22 12:45 | PRE.ANES_ITS ---
ASA Classification* ASA Classification ASA Classification: 3 Assessment & Plan Anesthesia* Anesthesia Assessment Anesthesia Assessment: Discussed sedation and/or anesthesia options, risks, benefits, and alternatives with patient/parents/legal guardian/POA. Questions invited. The patient/parents/legal guardian/POA seems to understand and agrees to proceed with anesthesia plan. Reviewed the physical assessment, medical history, allergy history and patient home medications list prior to surgery/procedure/anesthetic and documented any changes. Performed airway and anesthesia risk assessments. Anesthesia Type Anesthesia Type: MAC History Source History Obtained from:: Patient and Chart Anesthesia Focused Assessment* Temperature: 97.5 F Pulse Rate: 98 Blood Pressure: 124/86 Respiratory Rate: 16 Pulse Ox: 100 Oxygen Delivery Method: Room Air Airway Assessment Mouth opens: >3 cm Mallampati Score: II Teeth Condition: Dentures (Edentulous) Neck Range of motion (ROM): Full ROM Labs Anesthesia Preop lab: CBC WBC 5.8 K/mm3 (4.4-11.0) 03/22/25 03:53 03/22/25 RBC 3.05 M/mm3 (4.2-5.4) L 03/22/25 03:53 03/22/25 Hgb 8.1 g/dL (12.0-15.0) L 03/22/25 03:53 03/22/25 Hct 25.6 % (37-47) L 03/22/25 03:53 03/22/25 Plt Count 376 K/mm3 (150-450) 03/22/25 03:53 03/22/25 CHEMISTRY Potassium 3.2 mmol/L (3.3-5.1) L 03/22/25 03:53 03/22/25 Sodium 137 mmol/L (133-145) 03/22/25 03:53 03/22/25 Magnesium 2.1 mg/dL (1.5-2.2) 03/21/25 08:47 03/21/25 Phosphorus 3.3 mg/dL (2.7-4.5) 03/21/25 08:47 03/21/25 BUN 15 mg/dL (4-19) 03/22/25 03:53 03/22/25 Creatinine 0.65 mg/dL (0.70-1.20) L 03/22/25 03:53 Glucose 66 mg/dL (70-99) L 03/22/25 03:53 03/22/25 POC Glucose 63 mg/dL (74-106) L 03/22/25 06:01 03/22/25 TSH 1.740 uIU/mL (0.300-4.200) 03/20/25 04:33 /0 01/06 COAG PT 18.9 SECONDS (11.7-14.9) H 03/22/25 03:53 03/08 Urine Test Negative Negative 03/19/25 14:38 03/19/25 Pre-Assessment Diagnosis/Proposed Procedure Planned Operative Procedure(s): EGD Anesthesia History Anesthesia History - racecourse barrier attendant: Anesthesia History - racecourse barrier attendant Hx Hospitalization Yes: INFECTED VASCULAR PORT 12/11/24 13:05 09/2024 Any Problems With Anesthesia No 03/21/25 22:43 Cholinesterase deficiency No 12/11/24 13:05 You/Your Family Experience No 03/21/25 22:43 fever (hyperthermia) with Relationship Recent Exposure to Contagious No 03/21/25 22:43 Disease Does patient have nerve No 03/21/25 22:43 stimulator Patient instructed to have No 03/21/25 22:43 device shut off --Does patient have Pacemaker No 03/22/25 06:47 or ICD? When Was Last Pacemaker Check QUESTION #4 FULL TEXT: You/Your Family Experience fever (hyperthermia) with Anesthesia Last Oral Intake Last Oral intake: Last Oral Intake NPO since 02:00 03/22/25 06:47 Meds taken in AM with sips of No 03/22/25 06:47 water? Meds patient instructed to take am of surgery PONV PONV - racecourse barrier attendant: PONV - racecourse barrier attendant Female HX of Motion Sickness HX of N/V After Surgery Non-Smoker Duration of Surgery greater than 60 minutes Number of Risk Factors PONV Score Height & Weight Height & Weight: Anesthesia: Height & Weight Height 5 ft 1 in 03/22/25 06:47 Weight: 88 kg 03/22/25 06:47 Body Mass Index (BMI) 36.6 03/22/25 06:47 Respiratory Assessment Respiratory Assessment - racecourse barrier attendant: Respiratory Tract Infection Hx - racecourse barrier attendant Hx Respiratory Tract Infection No 03/21/25 22:43 STOP Sleep Apnea STOP Sleep Apnea - racecourse barrier attendant: STOP Sleep Apnea - racecourse barrier attendant Hx Hypertension No 03/20/25 11:55 Hx Sleep Apnea No 03/19/25 17:14 CPAP No 03/04/25 19:14 BIPAP Do you snore loudly (louder No 03/19/25 17:14 than talking or can be heard Do you often feel tired/ No 03/19/25 17:14 fatigued/ sleepy during daytime? Has anyone observed you stop No 03/19/25 17:14 breathing during sleep? STOP Results Negative 03/19/25 17:14 QUESTION #5 FULL TEXT : Do you snore loudly (louder than talking or can be heard through closed doors)? 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 Specify any problems Hx of Preganancy in last 3 No 03/19/25 17:14 Months Nurse Filling Out Transfusion NBILANCIN 03/19/25 17:14 & Questions: Date: 03/19/25 03/19/25 17:14 Time: 17:17 03/19/25 17:14 Patient unable to answer at this time (ie. confused, unrespo /Reproduction History /Reproductive History - racecourse barrier attendant: /Reproductive Hx- racecourse barrier attendant Hx Now No 03/21/25 22:43 Gestational Age (in weeks): EDC: Hx Hx Para Hx Section SAB No 03/19/25 11:38 Active Medications Active Medications: Current Medications Generic Name Dose Route Start Last Admin Trade Name Freq PRN Reason Stop Dose Admin Acetaminophen 650 mg 03/19/25 17:12 03/22/25 00:26 Acetaminophen 325 Mg Tablet PO 650 mg Q6H PRN PRN Administration Pain 1-10 Or Fever >100.7 Albuterol Sulfate 2.5 mg 03/19/25 17:12 Albuterol 2.5 Mg/3 Ml Vial.Neb. INHALATION Q2H PRN PRN SOB &/OR WHEEZING Albuterol Sulfate 2.5 mg 03/20/25 12:55 Albuterol 2.5 Mg/3 Ml Vial.Neb. INHALATION Q6H PRN PRN shortness of breath or wheezing Aripiprazole 15 mg 03/20/25 10:00 03/21/25 09:39 Aripiprazole 10 Mg Tablet PO 15 mg DAILY NIGEL Administration Bisacodyl 10 mg 03/19/25 18:00 03/22/25 10:03 Bisacodyl 10 Mg Suppository RC Not Given DAILY NIGEL Clonidine 0.2 mg 03/19/25 22:00 03/22/25 06:20 Clonidine Hcl 0.2 Mg Tablet PO Not Given TID NIGEL Protocol Gabapentin 400 mg 03/19/25 22:00 03/22/25 06:20 Gabapentin 400 Mg Capsule PO Not Given TID NIGEL Hydromorphone HCl 0.5 - 1 mg 03/20/25 11:16 03/22/25 04:03 Hydromorphone 1 Mg/Ml Syringe IV 0.5 mg Q3H PRN PRN Administration Pain Score 6-10 Pantoprazole Sodium 40 mg/ 100 mls @ 300 mls/hr 03/19/25 22:00 03/21/25 21:41 Sodium Chloride IV Infused Q12 NIGEL Infusion Sodium Chloride 250 mls @ 15 mls/hr 03/19/25 17:21 IV .[id number] PRN Saline Flush Sodium Chloride 250 mls @ 15 mls/hr 03/19/25 17:21 IV .[id number] PRN Additional IVPB Infusion Sodium Chloride 250 mls @ 15 mls/hr 03/20/25 17:05 IV .[id number] PRN Saline Flush Sodium Chloride 250 mls @ 15 mls/hr 03/20/25 17:05 IV .[id number] PRN Additional IVPB Infusion Lactated Ringer's 1,000 mls @ 15 mls/hr 03/22/25 12:30 03/22/25 12:33 IV 15 mls/hr .Q48H NIGEL Administration Lamotrigine 200 mg 03/20/25 12:30 03/21/25 21:10 Lamotrigine 100 Mg Tablet PO Not Given BID NIGEL Lorazepam 0.5 mg 03/21/25 20:34 03/22/25 04:02 Lorazepam 2 Mg/Ml Syringe IV 0.5 mg Q6H PRN PRN Administration agitation w/ reglan Melatonin 10 mg 03/19/25 17:12 03/20/25 21:18 Melatonin 10 Mg Tablet PO 10 mg QHS PRN PRN Administration INSOMNIA Metoclopramide HCl 5 mg 03/21/25 00:00 03/22/25 04:03 Metoclopramide 10 Mg/2 Ml Vial IV 5 mg Q6 NIGEL Administration Oxycodone HCl 5 mg 03/20/25 11:16 03/22/25 00:26 Oxycodone 5 Mg Tablet PO 5 mg Q4H PRN PRN Administration Pain Score 4-10 Polyethylene Glycol 0 bottle 03/21/25 16:00 03/21/25 17:08 Polyethylene Glycol 3350 Bowel Prep PO 238 gm 1600 NIGEL Administration Promethazine HCl 25 mg 03/20/25 11:12 Promethazine 25 Mg Suppos. RC Q6H PRN nausea and vomiting Promethazine HCl 12.5 mg 03/20/25 11:15 03/22/25 09:16 Promethazine 25 Mg/Ml Syringe IM 12.5 mg Q4H PRN PRN Administration NAUSEA/VOMITING Rizatriptan Benzoate 10 mg 03/19/25 17:43 03/20/25 23:35 Rizatriptan Benzoate 10 Mg Tablet PO 10 mg Q2H PRN PRN Administration MIGRAINE SYMPTOMS Scopolamine HBr 1 patch 03/19/25 18:00 03/19/25 20:48 Scopolamine 1mg/72hr Patch TD 1 patch Q3D NIGEL Administration Senna/Docusate Sodium 2 tablet 03/19/25 17:12 Senna/Docusate Sodium 1 Tablet PO BID PRN PRN Constipation Sodium Chloride 10 - 40 ml 03/19/25 17:21 03/22/25 09:17 0.9% Saline Lock 10 Ml Syringe IV 10 ml UD PRN Administration Port-a-Cath (VAD)/R Port Flush Sodium Chloride 10 - 40 ml 03/19/25 17:21 0.9 % Nacl (Sterile) Posiflush 10 Ml IV UD PRN Port access or dressing change Sodium Chloride 10 - 40 ml 03/19/25 17:21 0.9% Saline Lock 10 Ml Syringe IV UD PRN SALINE FLUSH Sodium Chloride 10 - 40 ml 03/20/25 17:05 0.9% Saline Lock 10 Ml Syringe IV UD PRN Port-a-Cath (VAD)/R Port Flush Sodium Chloride 10 - 40 ml 03/20/25 17:05 0.9 % Nacl (Sterile) Posiflush 10 Ml IV UD PRN Port access or dressing change Sodium Chloride 10 - 40 ml 03/20/25 17:05 0.9% Saline Lock 10 Ml Syringe IV UD PRN SALINE FLUSH [facility] Medical History Anemia CAP (community acquired pneumonia) Generalized weakness Hx of substance abuse Bipolar disorder Kidney stones GERD (gastroesophageal reflux disease) Non-smoker Easy bruising Dietary restriction Implantable loop recorder present Wears glasses Anxiety MRSA infection Substance abuse History of steroid therapy Diabetes Injury of head and neck History of IBS Gastric reflux Neuropathy delivery delivered Arthritis Prolonged QT interval PCOS (polycystic ovarian syndrome) Factor V Leiden Anxiety Depression Pulmonary embolism DVT (deep venous thrombosis) TIA (transient ischemic attack) Ovarian cyst Home Medications ?Medication ?Instructions ?Recorded ?Last Taken ?Type blood-glucose,engineer specialist,cont #1 ea 06/09/24 Unknown Rx (Dexcom G7 [place] Machine Operator) atogepant 60 mg tablet (Qulipta) 60 mg PO DAILY 10/21/24 History lamotrigine 200 mg tablet 200 mg PO BID 07/14/2410/21 History epinephrine 0.3 mg/0.3 mL 0.3 mg (0.3 mL) IM Q5-15M MS N 10/05/24 Unknown Rx injection, auto-injector (EpiPen anaphylaxis #2 ea 2-Scout) albuterol sulfate 90 mcg/actuation 2 puff inhalation Q 6H PRN 11/19/24 Unknown Rx aerosol inhaler shortness of breath or wheez ing #8.5 grams blood sugar diagnostic (OneTouch #100 ea 12/02/24 Unkn own Rx Verio test strips) lancets 30 gauge (OneTouch #200 ea 12/02/24 Unknown Rx UltraSoft 2 Lancet) acetaminophen 500 mg tablet 1,000 mg (2 x 500 mg) PO Q 8 PRN 12/08/24 Unknown Rx (Tylenol Extra Strength) fever or pain #60 tabs blood-glucose sensor (Dexcom G7 #1 ea 12/09/24 Unknown Rx Sensor device) sumatriptan succinate 6 mg/0.5 mL 6 mg subcut Q12H PRN MIGRAINE 12/11/24 Unknown History subcutaneous pen injector zolpidem 12.5 mg tablet,extended 12.5 mg PO QHS PRN in somnia 12/18/24 Unknown History release,multiphase (Ambien CR) sumatriptan succinate 100 mg tablet See Rx Instruction s PO .COMPLEX 01/11/25 Unknown Rx #12 tabs pantoprazole 40 mg tablet,delayed 40 mg PO QDAY #90 ta bs 01/25/25 Unknown Rx release linaclotide 145 mcg capsule 145 mcg PO QDAY #30 caps 0 02/26/25 Unknown Rx (Linzess) docusate sodium 100 mg capsule 100 mg PO DAILY PRN con stipation 03/01/25 Unknown Rx (Colace) #30 caps gabapentin 400 mg capsule 400 mg PO TID #90 caps 03/01 Unknown Rx dulaglutide 1.5 mg/0.5 mL 1.5 mg subcut FR 03/04/25 Un known History subcutaneous pen injector (Trulicity) clonidine HCl 0.2 mg tablet 0.2 mg PO TID anxiety 02/13 09/08 Unknown History promethazine 25 mg rectal 25 mg MS Q6H PRN nausea and 03/07/25 Unknown Rx suppository vomiting #12 ea furosemide 20 mg tablet (Lasix) 20 mg PO BID #20 tabs 03/11/25 Unknown Rx aripiprazole 15 mg tablet 15 mg PO DAILY 03/19/25 Unkn own History famotidine 20 mg tablet 20 mg PO DAILY 03/19/25 Unkn own History Allergy/AdvReac Type Severity Reaction Status Date / Time bee venom protein (honey Allergy Severe Anaphylaxis Verified 03/11/25 10:29 bee) (bee sting) ziprasidone (From Geodon) Allergy Severe facial Verified 03/11/25 10:29 swelling ciprofloxacin (From Cipro) Allergy Intermediate Angioedema Verified 03/11/25 10:29 levofloxacin (From Levaquin) Allergy Intermediate Angioedema Verified 03/11/25 10:29 adhesive tape Allergy Mild Rash Verified 03/11/25 10:29 latex Allergy Mild Rash Verified 03/11/25 10:29 Iodinated Contrast Media Allergy Hives Verified 03/11/25 10:29 ondansetron (From Zofran) Allergy Hives Verified 03/11/25 10:29 propranolol Allergy Angioedema Verified 03/11/25 10:29 midazolam (From Versed) AdvReac Severe Other Verified 03/11/25 10:29 haloperidol (From Haldol) AdvReac Other Verified 03/21/25 20:44 metoclopramide (From Reglan) AdvReac Other Verified 03/21/25 20:44 Family History Other Autoimmune disorder Bleeding disorder Breast cancer CVA (cerebral vascular accident) Colon cancer Diabetes Heart disease Hypertension Myocardial infarction Ovarian cancer Thyroid disorder Surgical History History of vascular access device Port-A-Cath in place H/O hernia repair H/O wisdom tooth extraction H/O oophorectomy Hx of cholecystectomy H/O tubal ligation Social History adopted: No household members: children and none number of children: 2 current occupational status: unemployed pets and animals: No sexually active: No Smoking Status: Never smoker alcohol intake: never substance use type: does not use caffeine: No frequency: 3-4 times per week do you feel safe at home: Yes Review of Systems (Anesthesia) ROS Narrative System reviewed and no additional complaints, except as documented.
--- NOTE | 2025-03-22 13:30 | EGD_PTH ---
PATIENT: ERIN TORRES LOC: [facility] U#:[id number] AGE/SX: 35/F ROOM: [facility] RE03/20/[address]: Dr. Nuno Barreto MD : 1990 BED: 1 DIS: 03/23/2025 SPEC #: [id number] RECD: 03/22/25 14:06 STATUS: SHIRA BLACKWELL #: [id number] SUDHEER: 03/22/25 13:[address]: Asif Layton DEPT: SURGICAL PATHOLOGY RECD BY: Mike Felix ENTERED: 03/22/25 15:41 SP TYPE: EGD BIOPSY OT DR: MD Dr. Nuno Chambers MD Dr. Prakash Chand, MD Dr. Paige Pierce, MD Heather Evans, NP-C Soraya Cantu MEDICAL ASSISTANT INSTRUCTOR-C MJ Arora PA Tissues: A - Duodenum, NOS B - Gastric mucous membrane Procedures: Immunohistochemical Stains Surgery Specimen Level IV HEADER OPERATION: EGD, biopsy PRE-OP DIAGNOSIS: Intractable nausea vomiting in the setting of severe constipation, severe anemia TISSUE SUBMITTED: A- Duodenum biopsy, B- Gastric body biopsy MICROSCOPIC DIAGNOSIS A. Duodenum, biopsy: - No specific pathologic change. - Negative for increased intraepithelial lymphocytes. B. Gastric body, biopsy: - Oxyntic mucosa with chronic inflammation. - IHC negative for H. pylori organisms. MICROSCOPIC DESCRIPTION Slides are reviewed. The diagnosis depends on the location of the biopsy and the extent of the mucosal irregularity. If the biopsy originates from the tubular esophagus and the mucosal irregularity extends at least 1 cm above the top of the gastric folds, this represents Eaton mucosa. If the biopsy originates from the gastric cardia and or the mucosal irregularity is less than 1 cm in extent, this represents intestinal metaplasia. GROSS DESCRIPTION A. Received in fixative is one container labeled with the patient's name and designated Duodenum biopsy. The specimen consists of two irregular fragments of light garcia soft tissue that measure 0.2 and 0.3 cm. The specimen is totally submitted in one cassette. B. Received in fixative is one container labeled with the patient's name and designated Gastric body biopsy. The specimen consists of three irregular fragments of light garcia soft tissue that measure <0.1 to 0.5 cm. Smallest fragment may not survive processing. The specimen is totally submitted in one cassette. CO 03/22/2025 CPT:[id number]
--- NOTE | 2025-03-22 13:48 | PCM.PN.BLA ---
Progress Note Patient will undergo an upper endoscopy to evaluate her nausea vomiting. She did not complete the prep so we will not do the colonoscopy. Physical Exam Narrative General: Alert, Oriented x3, Cooperative, No apparent distress HEENT: Atraumatic, PERRLA, EOMI, Normocephalic Oral: Moist Mucosa Neck: Supple, No JVD Lungs: Diminished, Normal air movement, No rhonchi, No wheeze, No rales Cardiovascular: Regular rate, Regular Rhythm, Normal S1, Normal S2, No murmurs Abdomen: Soft, Non Tender, Non-Distended, No Hepato-splenomegaly Extremities: No edema, Capillary Refill Less than 3 Seconds Skin: No rashes, No breakdown Musculoskeletal: No Tenderness to Palpation of Joints or Extremities Neurological: No focal neurological deficits, moves all extremities Psych/Mental Status: Normal Affect, Appropriate Assessment & Plan Assessment/Plan (1) Frequent falls: PLAN: Plan Patient is a 35-year-old lady who presented with frequent falls. She had also apparently complained of nausea and vomiting with severe constipation admitted to monitored bed for further management. 1. Intractable nausea vomiting in the setting of severe constipation ? CT of the abdomen and pelvis obtained on admission demonstrated Small bowel dilatation without transition point to decreased caliber. Findings could represent enteritis or small bowel ileus in the proper clinical setting. There is questionable mild hyperenhancement in the region of the terminal ileum on image 96. The possibility of inflammatory bowel disease could also be raised. Plan is for patient to be started on clear liquid to be advance as tolerated 2. Severe anemia ? Ordered iron studies in addition to B12 levels. ? 03/21/2025; stool did come back positive for occult blood. Hemoglobin came up to 8.1 with 1 unit PRBC transfusion. Plan is for patient to undergo both upper and lower endoscopy on 03/22/[address] Layton 3. Frequent falls ?? Symptomatic anemia requested for PT OT eval imaging studies did not show any fractures 4. Acute renal insufficiency ? Started on IV fluid with subsequent monitoring of electrolyte 5. Bipolar disorder - did continue patient antipsychotics 6. Class II obesity with BMI of 36 ? Complicating care weight loss advised 7. GERD ? Patient is on PPI continue 8. DVT prophylaxis ? Bilateral SCDs Time spent in the patient's overall evaluation,decision-making process, review of diagnostic data, adjustment of management, discussion with other providers, nursing nursing and ancillary staff involved in patient's care documentation, 35 Minutes Visit Charges Inpatient E&M: 98560 Subs Hosp L3
--- NOTE | 2025-03-22 14:06 | PCM.POST.ANE ---
Anesthesia: Postop Eval I Current Vital Signs Temperature: 97.7 F Pulse Rate: 84 Blood Pressure: 111/71 Respiratory Rate: 16 Pulse Ox: 97 Oxygen Delivery Method: Room Air Assessment Airway patent: Yes Spontaneous unlabored respirations: Yes Mental status: Awake and Calm nausea: No Vomiting: No Anesthesia Complication: No Fluid Hydration Crystalloid volume administer (ml): 500 Total IV fluid infused: 500 Progress Note Anesthesia document: Postop Eval 1 completed: Yes
--- NOTE | 2025-03-22 14:34 | PCM.POSTANE2 ---
Anesthesia Postop Eval I Sum Postop Eval Completion status Anesthesia document: Postop Eval 1 completed: Yes Anesthesia Postop Eval I Summary Anesthesia Postop Eval I Summary: Anesthesia Postop Eval I: Assessment Summary Airway patent Yes 03/22/25 14:07 [email or web address] Spontaneous unlabored Yes 03/22/25 14:07 [email or web address] respirations Mental status Awake,Calm 03/22/25 14:07 [email or web address] nausea No 03/22/25 14:07 [email or web address] Vomiting No 03/22/25 14:07 [email or web address] Anesthesia Postop Eval I: Fluid Summary Crystalloid volume administer 500 03/22/25 14:07 [email or web address] (ml) Colloids volume administered ( ml) Blood Product volume administered (ml) Total IV fluid infused 500 03/22/25 14:07 [email or web address] Anesthesia Postop Eval I: Summary Notes Anesthesia Complication No 03/22/25 14:07 [email or web address] Anesthesia Complication Comment: Post-operative progress note Anesthesia: Postop Eval II Evaluation Mental status: Awake and Calm Pain Level: 1 nausea: No Vomiting: No Complications Anesthesia Complication: No
--- NOTE | 2025-03-22 14:36 | OP.EGD_ITS ---
Patient Name: Clare Scott Procedure Date: 03/22/2025 1:44 PM Date of : 1990 Age: 35 Procedure: Upper GI endoscopy Indications: Epigastric abdominal pain Providers: Asif Layton DO Medicines: Monitored Anesthesia Care Patient Profile: This is a 35 year old female. Refer to note in patient chart for documentation of history and physical. Patient has symptoms of chronic epigastric abdominal pain. Complications: No immediate complications. Procedure: Pre-Anesthesia Assessment: - Prior to the procedure, a History and Physical was performed, and patient medications and allergies were reviewed. The patient is competent. The risks and benefits of the procedure and the sedation options and risks were discussed with the patient. All questions were answered and informed consent was obtained. Patient identification and proposed procedure were verified in the pre-procedure area. Mental Status Examination: alert and oriented. Airway Examination: normal oropharyngeal airway and neck mobility. CV Examination: normal. Prophylactic Antibiotics: The patient does not require prophylactic antibiotics. Prior Anticoagulants: The patient has taken no anticoagulant or antiplatelet agents. ASA Grade Assessment: II - A patient with mild systemic disease. After reviewing the risks and benefits, the patient was deemed in satisfactory condition to undergo the procedure. The anesthesia plan was to use monitored anesthesia care (MAC). Immediately prior to administration of medications, the patient was re-assessed for adequacy to receive sedatives. The heart rate, respiratory rate, oxygen saturations, blood pressure, adequacy of pulmonary ventilation, and response to care were monitored throughout the procedure. The physical status of the patient was re-assessed after the procedure. After obtaining informed consent, the endoscope was passed under direct vision. Throughout the procedure, the patient's blood pressure, pulse, and oxygen saturations were monitored continuously. The gastroscope was introduced through the mouth, and advanced to the third part of the duodenum. Small bowel enteroscopy was deemed necessary. The upper GI endoscopy was accomplished without difficulty. The patient tolerated the procedure well. Scope In: 1:50:26 PM Scope Out: 1:52:34 PM Total Procedure Duration Time 0 hours 2 minutes 8 seconds Findings: The examined esophagus was normal. Diffuse moderate inflammation characterized by erythema was found in the entire examined stomach. Biopsies were taken with a cold forceps for histology. Biopsies were taken with a cold forceps for Helicobacter pylori testing. Verification of patient identification for the specimen was done. Estimated blood loss was minimal. Diffuse mildly erythematous mucosa without active bleeding and with no stigmata of bleeding was found in the entire duodenum. Biopsies were taken with a cold forceps for histology. Verification of patient identification for the specimen was done. Impression: - Normal esophagus. - Bile gastritis. Biopsied. - Erythematous duodenopathy. Biopsied. Recommendation: - Await pathology results. - Continue present medications. Procedure Code(s): --- Professional --- 31423, Small intestinal endoscopy, enteroscopy beyond second portion of duodenum, not including ileum; with biopsy, single or multiple CPT copyright 2021 [employer]. All rights reserved. The codes documented in this report are preliminary and upon scale manager review may be revised to meet current compliance requirements. Asif Layton DO 03/22/2025 2:36:07 PM This report has been signed electronically. Number of Addenda: 0 Note Initiated On: 03/22/2025 1:44 PM
--- NOTE | 2025-03-22 14:37 | OP.PROVAT_ITS ---
03/22/2025 MJ Fried [id number] [address] Re : Upper GI endoscopy procedure for Clare Scott Dear Mr. Yip This procedure was performed on Saturday, March 22, 2025. My impressions and recommendations are as follows: Impressions : - Normal esophagus. - Bile gastritis. Biopsied. - Erythematous duodenopathy. Biopsied. Recommendations : - Await pathology results. - Continue present medications. My findings are described in the full procedure note, which is enclosed. If I can be of further assistance, please feel free to contact me at . Sincerely, Asif Layton, 03/22/2025 2:36:07 PM This report has been signed electronically.
--- NOTE | 2025-03-22 15:02 | CASEMGMT ---
Social Work After [facility] had accepted pt, they are now saying they will not take pt due to cost of medications. SW sent a message back in [facility] inquiring about other options, will await response. LUDMILA Hameed
--- NOTE | 2025-03-22 15:39 | CASEMGMT ---
Social Work SW spoke w/pt, pt tearful. She was not able to get the colonoscopy today. Pt is nauseous and frustrated. SW offered support. SW did let pt know that [facility] is now saying that they cannot take pt due to cost of meds. Pt at this point just wants to return home. She states may even leave today, whether or not she is discharged. SW let pt know if she is still here tomorrow, SW will follow up w/her tomorrow. Pt thanked SW. LUDMILA Hameed
[2025-03-22] MEDS: Scopolamine 1mg/72hr Patch 1 PATCH TD (18:45)
[2025-03-23] MEDS: 0.9% Saline Lock 10 ML Syringe IV (00:13)
[2025-03-23 03:15] VITALS: BP 99/83; PULSE 94; RESP 16; TEMP 36.6; O2SAT 95
--- NOTE | 2025-03-23 05:50 | NURSING ---
Pt refused am labs. Pt stated, I am leaving at 10:00 so there is no point in drawing them.
[2025-03-23 05:51] VITALS: BMI 37.0
[2025-03-23 09:00] VITALS: BP 131/91; PULSE 77; RESP 17; TEMP 36.7; O2SAT 99
[2025-03-23] MEDS: proMETHazine 25 MG/ML Syringe 12.5 MG IM (09:30)
--- NOTE | 2025-03-23 09:38 | DCINST_ITS ---
Discharge Instructions DC O2, CPAP, BIPAP needs Home O2 Discharge instructions: No Dressing / Incision Discharge Activity: Return to Normal Activity Dressing / Incision Call your doctor if you observe: Fever of 101 or Higher, Shortness of breath, Dizziness, Fainting spells, Swelling in the ankles, Chest pain and Increased palpitations (irregular heartbeat) Follow Up Care Test Results: Test results from this visit will be discussed in further detail at your follow- up appointment, if applicable. Discharge Plan Admission Admit Date/Time: 03/20/25 14:39 Attending Provider: Nuno Barreto Primary Care Provider: Rashawn Yip Consulting Providers: Jayda Melendez; Jude Bryson; Asif Layton; Trice Morales; Soraya Cantu; Barbara Chew; Peterson Ji Instructions Additional Instructions / Restrictions: Follow-up with your primary care doctor in 3 to 5 days to monitor your hemoglobin. No overt signs of GI bleeding. Discharge Orders/Prescriptions Prescriptions: Continued albuterol sulfate 90 mcg/actuation HFA aerosol inhaler 2 puff inhalation Q6H PRN (Reason: shortness of breath or wheezing) Qty: 8.5 0RF Linzess 145 mcg capsule 145 mcg PO QDAY Qty: 30 0RF furosemide [Lasix] 20 mg tablet 20 mg PO BID Qty: 20 0RF lamotrigine 200 mg tablet 200 mg PO BID Qulipta 60 mg tablet 60 mg PO DAILY sumatriptan succinate 6 mg/0.5 mL pen injector 6 mg SUBCUT Q12H PRN (Reason: MIGRAINE) zolpidem [Ambien CR] 12.5 mg tablet,ext release multiphase 12.5 mg PO QHS PRN (Reason: insomnia) Trulicity 1.5 mg/0.5 mL pen injector 1.5 mg subcut FR Rx Instructions: takes on tuesdays. clonidine HCl 0.2 mg tablet 0.2 mg PO TID promethazine 25 mg suppository 25 mg [place] Q6H PRN (Reason: nausea and vomiting) Qty: 12 0RF famotidine 20 mg tablet 20 mg PO DAILY aripiprazole 15 mg tablet 15 mg PO DAILY (DME) Dexcom G7 Hunting And Fishing Guide Misc See Rx Instructions .Route Qty: 1 5RF Rx Instructions: As directed epinephrine [EpiPen 2-Scout] 0.3 mg/0.3 mL auto-injector 0.3 mg IM Q5-15M PRN (Reason: anaphylaxis) Qty: 2 1RF Rx Instructions: do not exceed 3 doses per episode (DME) lancets [OneTouch UltraSoft 2 Lancet] 30 gauge misc See Rx Instructions .Route Qty: 200 0RF Rx Instructions: Use once daily to check blood glucose level (DME) OneTouch Verio test strips Strip See Rx Instructions .Route Qty: 100 0RF Rx Instructions: Use one strip once per day to check blood glucose level acetaminophen [Tylenol Extra Strength] 500 mg tablet 1,000 mg PO Q8 PRN (Reason: fever or pain) Qty: 60 0RF (DME) Dexcom G7 Sensor Device See Rx Instructions .Route Qty: 1 5RF Rx Instructions: As directed sumatriptan succinate 100 mg tablet See Rx Instructions PO .COMPLEX Qty: 12 0RF Rx Instructions: take 1 tab at onset of headache; if no relief, may repeat 1 tab after at least 2 hrs; max = 2 tabs/24 hrs PO pantoprazole 40 mg tablet,delayed release (DR/EC) 40 mg PO QDAY Qty: 90 0RF gabapentin 400 mg capsule 400 mg PO TID Qty: 90 0RF docusate sodium [Colace] 100 mg capsule 100 mg PO DAILY PRN (Reason: constipation) Qty: 30 0RF Referrals / Follow Up: Rashawn Yip, PA [Primary Care Provider] - Within 1 Week Asif Layton DO [Med Staff - Active Staff] - Within 1 Month Disposition Disposition (needs filled in before D/C Order can be placed): Home, Self Care
--- NOTE | 2025-03-23 09:40 | CASEMGMT ---
Social Work [facility] is unable to accept pt. SWs America and Shawna met with pt and explained this. Pt states that she feels like she is doing better and is able to return home at time of discharge. Pt states that he has a walker at home and if she had a shower chair she would feel more secure. Pt is aware that [facility] is not available in this area due insurance issues. Pt would like referral to [facility]. Referral sent to [facility] by KIM yesterday. SW spoke with Steph who states they do have shower chairs available and are able to bill pt's insurance and deliver to pts home. Pt states her cousin will be able to provide transportation home. SW to follow up for Shower chair. LÓPEZ Rosa
--- NOTE | 2025-03-23 09:56 | PHA.DC_ITS ---
Pharmacy [place] Med Reconciliation Pharmacy Service has performed discharge medication reconciliation for this patient. The patient's discharge medication list was reviewed for discrepancies and discrepancies were resolved. Medications at Discharge Home Medications blood-glucose,bench jeweler,cont (Dexcom G7 Seamless Hosiery Knitter) #1 ea 06/09/24 atogepant 60 mg tablet (Qulipta) 60 mg PO DAILY 07/14/24 lamotrigine 200 mg tablet 200 mg PO BID 07/14/24 epinephrine 0.3 mg/0.3 mL injection, auto-injector (EpiPen 2-Scout) 0.3 mg (0.3 mL) IM Q5-15M PRN anaphylaxis #2 ea 10/05/24 albuterol sulfate 90 mcg/actuation aerosol inhaler 2 puff inhalation Q6H PRN shortness of breath or wheezing #8.5 grams 11/19/24 blood sugar diagnostic ([employer] Verio test strips) #100 ea 12/02/24 lancets 30 gauge (Uscreen.tvTouch UltraSoft 2 Lancet) #200 ea 12/02/24 acetaminophen 500 mg tablet (Tylenol Extra Strength) 1,000 mg (2 x 500 mg) PO Q8 PRN fever or pain #60 tabs 12/08/24 blood-glucose sensor (Dexcom G7 Sensor device) #1 ea 12/09/24 sumatriptan succinate 6 mg/0.5 mL subcutaneous pen injector 6 mg subcut Q12H PRN MIGRAINE 12/11/24 zolpidem 12.5 mg tablet,extended release,multiphase (Ambien CR) 12.5 mg PO QHS PRN insomnia 12/18/24 sumatriptan succinate 100 mg tablet See Rx Instructions PO .COMPLEX #12 tabs 01/11/25 pantoprazole 40 mg tablet,delayed release 40 mg PO QDAY #90 tabs 01/25/25 linaclotide 145 mcg capsule (Linzess) 145 mcg PO QDAY #30 caps 02/26/25 docusate sodium 100 mg capsule (Colace) 100 mg PO DAILY PRN constipation #30 caps 03/01/25 gabapentin 400 mg capsule 400 mg PO TID #90 caps 03/01/25 dulaglutide 1.5 mg/0.5 mL subcutaneous pen injector (Trulicity) 1.5 mg subcut FR 03/04/25 clonidine HCl 0.2 mg tablet 0.2 mg PO TID anxiety 03/05/25 promethazine 25 mg rectal suppository 25 mg [place] Q6H PRN nausea and vomiting #12 ea 03/07/25 furosemide 20 mg tablet (Lasix) 20 mg PO BID #20 tabs 03/11/25 aripiprazole 15 mg tablet 15 mg PO DAILY 03/19/25 famotidine 20 mg tablet 20 mg PO DAILY 03/19/25
--- NOTE | 2025-03-23 10:46 | CASEMGMT ---
Social Work Referral faxed to [facility] for Shower Chair. KIM met with pt and informed of referral to [facility] and that they will bill insurance and deliver chair to pt home. SW also updated pt that referral has been made to [facility]. Pt agreeable and denies any further dc needs. Freddy DAWN
--- NOTE | 2025-03-23 12:09 | PCM.DC.SUM ---
Providers Date of Admission: 03/20/25 Primary Care Physician: MJ Fried Consultations 03/20/25 11:14 Consult: Gastroenterology Routine Consulting Provider: Na[facility] G[facility] Reason for Consult: severe anemia EMERGENT Consult: No MD Notified: Yes Date Notified: 03/20/25 Time Notified: 11:19 Method of Notification: Text Reason For Visit: LOWER EMTREMITY EDEMA, NAUSEA VOMITING Diagnosis Discharge Diagnosis (1) Frequent falls: Status: Acute Code(s): R29.6 - Repeated falls Medications at Discharge Home Medications blood-glucose,supply chain associate,cont (Dexcom G7 Gas Turbine Powerplant Mechanic Helper) #1 ea 06/09/24 atogepant 60 mg tablet (Qulipta) 60 mg PO DAILY 07/14/24 lamotrigine 200 mg tablet 200 mg PO BID 07/14/24 epinephrine 0.3 mg/0.3 mL injection, auto-injector (EpiPen 2-Scout) 0.3 mg (0.3 mL) IM Q5-15M PRN anaphylaxis #2 ea 10/05/24 albuterol sulfate 90 mcg/actuation aerosol inhaler 2 puff inhalation Q6H PRN shortness of breath or wheezing #8.5 grams 11/19/24 blood sugar diagnostic (ClipClockTouch Verio test strips) #100 ea 12/02/24 lancets 30 gauge (OneTouch UltraSoft 2 Lancet) #200 ea 12/02/24 acetaminophen 500 mg tablet (Tylenol Extra Strength) 1,000 mg (2 x 500 mg) PO Q8 PRN fever or pain #60 tabs 12/08/24 blood-glucose sensor (Dexcom G7 Sensor device) #1 ea 12/09/24 sumatriptan succinate 6 mg/0.5 mL subcutaneous pen injector 6 mg subcut Q12H PRN MIGRAINE 12/11/24 zolpidem 12.5 mg tablet,extended release,multiphase (Ambien CR) 12.5 mg PO QHS PRN insomnia 12/18/24 sumatriptan succinate 100 mg tablet See Rx Instructions PO .COMPLEX #12 tabs 01/11/25 pantoprazole 40 mg tablet,delayed release 40 mg PO QDAY #90 tabs 01/25/25 linaclotide 145 mcg capsule (Linzess) 145 mcg PO QDAY #30 caps 08/15/25 dulaglutide 1.5 mg/0.5 mL subcutaneous pen injector (Trulicity) 1.5 mg subcut FR 03/04/25 clonidine HCl 0.2 mg tablet 0.2 mg PO TID anxiety 03/05/25 promethazine 25 mg rectal suppository 25 mg [place] Q6H PRN nausea and vomiting #12 ea 03/07/25 furosemide 20 mg tablet (Lasix) 20 mg PO BID #20 tabs 03/11/25 aripiprazole 15 mg tablet 15 mg PO DAILY 03/19/25 famotidine 20 mg tablet 20 mg PO DAILY 03/19/25 docusate sodium 100 mg capsule (Colace) 100 mg PO DAILY PRN constipation #30 caps 03/23/25 gabapentin 400 mg capsule 400 mg PO TID #270 caps 03/23/25 Hospital Course Operations None Procedures EGD Summary of Care Provided Minutes Spent on Discharge: 33 Hospital Course: Per HPI: Hospital Course: 1. Intractable nausea and vomiting in the setting of constipation with acute blood loss anemia/GERA/GERD ? EGD and colonoscopy pending for today ? Continue PPI ? Continue with bowel regimen ? Vitamin B12 levels are elevated and iron studies are inconclusive with likely anemia of chronic disease/inflammation, there may be an iron deficiency component to it given her GI bleeding ? Continue with nausea medications ? She received 1 unit of PRBCs hemoglobin is stabilized at 8.1 ? GERA is resolved, baseline creatinine 0.7 and her creatinine on admission was 1.21 03/23/2025: Hemoglobin is stabilized at 8.1 unclear as to the etiology as the EGD was unremarkable. Unfortunately colonoscopy could not be done because she was not completely cleaned out and refused to finish her bowel prep. We discussed with her that we cannot fully diagnose her she does not take her bowel prep but she says that she was not going to finish it. Will continue with PPI and have her follow-up with gastroenterology as an outpatient. There is some concern for possible colitis based on the CT scan that could be inflammatory in nature however without a colonoscopy will be difficult to diagnose. She expressed understanding of the risks and benefits of going home and would prefer to go home today. Unfortunately she also refused lab draws today so we cannot verify continued stability of her hemoglobin. I recommend outpatient follow-up with her PCP as well for monitoring of her hemoglobin. 2. Bipolar disorder ? Stable ? Continue with her home medications Physical Exam Narrative General: Alert, Oriented x3, Cooperative, No apparent distress HEENT: Atraumatic, PERRLA, EOMI, Normocephalic Oral: Moist Mucosa Neck: Supple, No JVD Lungs: Diminished, Normal air movement, No rhonchi, No wheeze, No rales Cardiovascular: Regular rate, Regular Rhythm, Normal S1, Normal S2, No murmurs Abdomen: Soft, Non Tender, Non-Distended, No Hepato-splenomegaly Extremities: No edema, Capillary Refill Less than 3 Seconds Skin: No rashes, No breakdown Musculoskeletal: No Tenderness to Palpation of Joints or Extremities Neurological: No focal neurological deficits, moves all extremities Psych/Mental Status: Normal Affect, Appropriate Weight / BMI Weight Weight: 195 lb 12.328 oz Body Mass Index (BMI) 37.0 ABG / Lab / Microbiology Data 03/22/25 03:53 03/22/25 03:53 Microbiology: Microbiology 03/21/25 09:05 Stool Stool Occult Blood (SANJUANA) - Final Occult Blood Positive D/C Instructions Call your doctor if you observe: Fever of 101 or Higher, Shortness of breath, Dizziness, Fainting spells, Swelling in the ankles, Chest pain and Increased palpitations (irregular heartbeat) DC O2, CPAP, BIPAP Needs Home O2 Discharge instructions: No Meaningful Use Info Meaningful Use Meaningful Use Diagnoses (Choose all that apply): None applicable Discharge Plan Admission Admit Date/Time: 03/20/25 14:39 Attending Provider: Nuno Barreto Primary Care Provider: Rashawn Yip Consulting Providers: Jayda Melendez; Jude Bryson; Asif Layton; Trice Morales; Soraya Cantu; Barbara Chew; Peterson Ji Instructions Additional Instructions / Restrictions: Follow-up with your primary care doctor in 3 to 5 days to monitor your hemoglobin. No overt signs of GI bleeding. Discharge Orders/Prescriptions Prescriptions: Continued albuterol sulfate 90 mcg/actuation HFA aerosol inhaler 2 puff inhalation Q6H PRN (Reason: shortness of breath or wheezing) Qty: 8.5 0RF Linzess 145 mcg capsule 145 mcg PO QDAY Qty: 30 0RF furosemide [Lasix] 20 mg tablet 20 mg PO BID Qty: 20 0RF lamotrigine 200 mg tablet 200 mg PO BID Qulipta 60 mg tablet 60 mg PO DAILY sumatriptan succinate 6 mg/0.5 mL pen injector 6 mg SUBCUT Q12H PRN (Reason: MIGRAINE) zolpidem [Ambien CR] 12.5 mg tablet,ext release multiphase 12.5 mg PO QHS PRN (Reason: insomnia) Trulicity 1.5 mg/0.5 mL pen injector 1.5 mg subcut FR Rx Instructions: takes on tuesdays. clonidine HCl 0.2 mg tablet 0.2 mg PO TID promethazine 25 mg suppository 25 mg [place] Q6H PRN (Reason: nausea and vomiting) Qty: 12 0RF famotidine 20 mg tablet 20 mg PO DAILY aripiprazole 15 mg tablet 15 mg PO DAILY (DME) Dexcom G7 Gas Turbine Powerplant Mechanic Helper Misc See Rx Instructions .Route Qty: 1 5RF Rx Instructions: As directed epinephrine [EpiPen 2-Scout] 0.3 mg/0.3 mL auto-injector 0.3 mg IM Q5-15M PRN (Reason: anaphylaxis) Qty: 2 1RF Rx Instructions: do not exceed 3 doses per episode (DME) lancets [OneTouch UltraSoft 2 Lancet] 30 gauge misc See Rx Instructions .Route Qty: 200 0RF Rx Instructions: Use once daily to check blood glucose level (DME) OneTouch Verio test strips Strip See Rx Instructions .Route Qty: 100 0RF Rx Instructions: Use one strip once per day to check blood glucose level acetaminophen [Tylenol Extra Strength] 500 mg tablet 1,000 mg PO Q8 PRN (Reason: fever or pain) Qty: 60 0RF (DME) Dexcom G7 Sensor Device See Rx Instructions .Route Qty: 1 5RF Rx Instructions: As directed sumatriptan succinate 100 mg tablet See Rx Instructions PO .COMPLEX Qty: 12 0RF Rx Instructions: take 1 tab at onset of headache; if no relief, may repeat 1 tab after at least 2 hrs; max = 2 tabs/24 hrs PO pantoprazole 40 mg tablet,delayed release (DR/EC) 40 mg PO QDAY Qty: 90 0RF No Action docusate sodium [Colace] 100 mg capsule 100 mg PO DAILY PRN (Reason: constipation) Qty: 30 0RF gabapentin 400 mg capsule 400 mg PO TID Qty: 270 0RF Referrals / Follow Up: Asif Layton DO [Med Staff - Active Staff] - 04/14/25 9:00 am (Appointment with Barbara Forrester) Rashawn Yip PA [Primary Care Provider] - 03/31/25 10:30 am (Appointment with Rashawn Yip) Disposition Disposition (needs filled in before D/C Order can be placed): Home, Self Care Charges/Coding Visit Charges Inpatient E&M: 99943 Disch Hosp >30min
--- NOTE | 2025-04-01 14:05 | CCN.REFER ---
PATIENT DOES NOT QUALIFY FOR CCN DUE TO DX OF BIPOLAR.
== END 2025-03-23 13:06 | disposition home or self-care (01) | DRG 254 ==
LOC: ED 15:49 → PCU 16:43
PROVIDERS: Internal Medicine; Internal Medicine Gastroenterology; Admitting Provider Internal Medicine; Emergency Provider Emergency Medicine; PCP Physician Assistant; Visit Provider Family Medicine
PROC: 0DJ08ZZ Inspection of Upper Intestinal Tract, Via Natural or Artificial Opening Endoscopic (ICD-10-PCS; CPT 43235; principal; 2025-03-22 13:25)
DX: K92.1 Melena (principal); D63.8 Anemia in other chronic diseases classified elsewhere; N17.9 Acute kidney failure, unspecified; E11.40 Type 2 diabetes mellitus with diabetic neuropathy, unspecified; D50.9 Iron deficiency anemia, unspecified; D62 Acute posthemorrhagic anemia; S09.90XA Unspecified injury of head, initial encounter; F31.9 Bipolar disorder, unspecified; E66.812 Obesity, class 2; K58.1 Irritable bowel syndrome with constipation; K29.50 Unspecified chronic gastritis without bleeding; E28.2 Polycystic ovarian syndrome; K21.9 Gastro-esophageal reflux disease without esophagitis; W19.XXXA Unspecified fall, initial encounter; F41.9 Anxiety disorder, unspecified; R11.2 Nausea with vomiting, unspecified; G43.909 Migraine, unspecified, not intractable, without status migrainosus; R60.0 Localized edema; R29.6 Repeated falls; Z53.29 Procedure and treatment not carried out because of patient's decision for other reasons; Z86.73 Personal history of transient ischemic attack (TIA), and cerebral infarction without residual deficits; Z86.718 Personal history of other venous thrombosis and embolism; Z86.711 Personal history of pulmonary embolism; Z79.85 Long-term (current) use of injectable non-insulin antidiabetic drugs; Z79.899 Other long term (current) drug therapy; Z90.49 Acquired absence of other specified parts of digestive tract; Z87.898 Personal history of other specified conditions; Z98.51 Tubal ligation status; Z90.5 Acquired absence of kidney; Z68.36 Body mass index [BMI] 36.0-36.9, adult
CPT/HCPCS: 36415; 70450; 71046; 74018; 74177; 80048; 80307; 81001; 81025; 82274; 82607; 82728; 82962; 83540; 83550; 83690; 83735; 83880; 84100; 84443; 84484; 85025; 85027; 85045; 85610; 85730; 86850; 86900; 86901; 88305; 88342; 93005; 93306; 97162; 97166; 97530; 97802; 99285; P9016; Q9957; Q9967; A4216; J2405; J2916

== ENCOUNTER 2025-03-29 16:05 | Emergency (ER) | payer MEDICAID, SELFPAY ==
[2025-03-29 16:06] VITALS: BP 87/42; PULSE 111; RESP 16; TEMP 36.5; O2SAT 100; BMI 39.7
[2025-03-29 16:13] VITALS: O2SAT 100
--- NOTE | 2025-03-29 16:45 | CT_ITS ---
PROCEDURE: CT SINUS/FACIAL BONE 03/29/2025 REASON FOR EXAM: FALL/INJURY TECHNIQUE: Procedure Code: CTSI Modality: CT Procedure: SINUS/FACIAL BONE Coronal and Sagittal reconstruction series were provided. One or more dose reduction techniques were used (e.g., Automated exposure control, adjustment of the mA and/or kV according to patient size, use of iterative reconstruction technique). RADIATION DOSE SUMMARY: CTDlvol: 29.38 mGy DLP: 635.61 mGycm COMPARISON: CT head 03/19/2025 FINDINGS: No acute maxillofacial bone fracture. Well-aerated paranasal sinuses, with mild mucosal thickening in the floors of the maxillary sinuses noted. No mastoid effusions. No significant abnormality in the visualized superficial soft tissues. The globes appear intact. Clear retrobulbar fat planes. CT/Sinus/Facial Bone IMPRESSION: No acute traumatic findings. Reading Location: [facility]
--- NOTE | 2025-03-29 16:47 | EDS_ITS ---
HPI History of Present Illness Chief Complaint: Fall Informant: patient and EMS Narrative Narrative: 35-year-old female had 2 falls today as a result of feeling weak and having trouble walking with her walker. She states she had no prodromal symptoms before either one of them, but she basically slipped with either her feet or her hand, and fell to the floor she hit the right side of her face on a nearby dresser at the last fall, and landed on her tailbone, also her low back and coccyx are hurting. From the other fall she did not have a significant injury. She states her doctor's office called her to check on her about calls she had with them from last week regarding the edema in her legs, and when she told them about the second fall, they called EMS to have her brought to the ER according to the patient who states she did not necessarily want to come here. She states the edema in her legs is now up to her abdomen, continuing to worse. It has been present for weeks. She was admitted to the hospital for it. Was told she has kidney problems. She had an echocardiogram that she states was okay. She denies dyspnea or chest pain, states she was on Lasix but it was not helping so she discontinued it several days ago after consulting with her PCP. She has not seen renal/nephrology for any of this. [facility] Medical History Anemia CAP (community acquired pneumonia) Generalized weakness Hx of substance abuse Bipolar disorder Kidney stones GERD (gastroesophageal reflux disease) Non-smoker Easy bruising Dietary restriction Implantable loop recorder present Wears glasses Anxiety MRSA infection Substance abuse History of steroid therapy Diabetes Injury of head and neck History of IBS Gastric reflux Neuropathy delivery delivered Arthritis Prolonged QT interval PCOS (polycystic ovarian syndrome) Factor V Leiden Anxiety Depression Pulmonary embolism DVT (deep venous thrombosis) TIA (transient ischemic attack) Ovarian cyst Home Medications ?Medication ?Instructions ?Recorded ?Last Taken ?Type blood-glucose,staff toxicologist,cont #1 ea 06/09/24 Unknown Rx (Dexcom G7 Director [employer]) atogepant 60 mg tablet (Qulipta) 60 mg PO DAILY 10/21/24 History lamotrigine 200 mg tablet 200 mg PO BID 07/14/2410/21 History epinephrine 0.3 mg/0.3 mL 0.3 mg (0.3 mL) IM Q5-15M NJ N 10/05/24 Unknown Rx injection, auto-injector (EpiPen anaphylaxis #2 ea 2-Scout) albuterol sulfate 90 mcg/actuation 2 puff inhalation Q 6H PRN 11/19/24 Unknown Rx aerosol inhaler shortness of breath or wheez ing #8.5 grams blood sugar diagnostic (OneTouch #100 ea 12/02/24 Unkn own Rx Verio test strips) lancets 30 gauge (OneTouch #200 ea 12/02/24 Unknown Rx UltraSoft 2 Lancet) acetaminophen 500 mg tablet 1,000 mg (2 x 500 mg) PO Q 8 PRN 12/08/24 Unknown Rx (Tylenol Extra Strength) fever or pain #60 tabs blood-glucose sensor (Dexcom G7 #1 ea 12/09/24 Unknown Rx Sensor device) sumatriptan succinate 6 mg/0.5 mL 6 mg subcut Q12H PRN MIGRAINE 12/11/24 Unknown History subcutaneous pen injector zolpidem 12.5 mg tablet,extended 12.5 mg PO QHS PRN in somnia 12/18/24 Unknown History release,multiphase (Ambien CR) sumatriptan succinate 100 mg tablet See Rx Instruction s PO .COMPLEX 01/11/25 Unknown Rx #12 tabs pantoprazole 40 mg tablet,delayed 40 mg PO QDAY #90 ta bs 01/25/25 Unknown Rx release dulaglutide 1.5 mg/0.5 mL 1.5 mg subcut FR 03/04/25 Un known History subcutaneous pen injector (Trulicity) clonidine HCl 0.2 mg tablet 0.2 mg PO TID anxiety 02/13 09/08 Unknown History promethazine 25 mg rectal 25 mg [place] Q6H PRN nausea and 03/07/25 Unknown Rx suppository vomiting #12 ea furosemide 20 mg tablet (Lasix) 20 mg PO BID #20 tabs 03/11/25 Unknown Rx aripiprazole 15 mg tablet 15 mg PO DAILY 03/19/25 Unkn own History famotidine 20 mg tablet 20 mg PO DAILY 03/19/25 Unkn own History docusate sodium 100 mg capsule 100 mg PO DAILY PRN con stipation 03/23/25 Unknown Rx (Colace) #30 caps gabapentin 400 mg capsule 400 mg PO TID #270 caps 04/08 Unknown Rx linaclotide 290 mcg capsule 290 mcg PO QDAY #90 caps 0 03/26/25 Unknown Rx (Linzess) Allergy/AdvReac Type Severity Reaction Status Date / Time bee venom protein (honey Allergy Severe Anaphylaxis Verified 03/29/25 16:12 bee) (bee sting) ziprasidone (From Geodon) Allergy Severe facial Verified 03/29/25 16:12 swelling ciprofloxacin (From Cipro) Allergy Intermediate Angioedema Verified 03/29/25 16:12 levofloxacin (From Levaquin) Allergy Intermediate Angioedema Verified 03/29/25 16:12 adhesive tape Allergy Mild Rash Verified 03/29/25 16:12 latex Allergy Mild Rash Verified 03/29/25 16:12 Iodinated Contrast Media Allergy Hives Verified 03/29/25 16:12 ondansetron (From Zofran) Allergy Hives Verified 03/29/25 16:12 propranolol Allergy Angioedema Verified 03/29/25 16:12 midazolam (From Versed) AdvReac Severe Other Verified 03/29/25 16:12 haloperidol (From Haldol) AdvReac Other Verified 03/29/25 16:12 metoclopramide (From Reglan) AdvReac Other Verified 03/29/25 16:12 Family History Other Autoimmune disorder Bleeding disorder Breast cancer CVA (cerebral vascular accident) Colon cancer Diabetes Heart disease Hypertension Myocardial infarction Ovarian cancer Thyroid disorder Surgical History History of vascular access device Port-A-Cath in place H/O hernia repair H/O wisdom tooth extraction H/O oophorectomy Hx of cholecystectomy H/O tubal ligation Social History adopted: No household members: children and none number of children: 2 current occupational status: unemployed pets and animals: No sexually active: No Smoking Status: Never smoker alcohol intake: never substance use type: does not use caffeine: No frequency: 3-4 times per week do you feel safe at home: Yes ROS ROS ED Constitutional Constitutional ED: Reports weakness; Denies chills or fever(s) Eyes Eyes: Reports diplopia and other Details: Intermittent diplopia times several days and has had this before, no different since her fall today ; Denies change in vision ENT ENT ED: Reports facial pain and other Details: Occasional intermittent vertigo, chronic issue ; Denies ear pain, rhinorrhea or sore throat Cardiovascular Cardiovascular: Reports leg edema; Denies chest pain or palpitations Respiratory/Chest Respiratory/Chest: Denies cough or dyspnea Gastrointestinal Gastrointestinal: Reports nausea and other Details: Occasional vomiting but none today, more associated with when she has vertigo ; Denies abdominal pain, diarrhea, hematemesis, hematochezia, melena or vomiting Genitourinary Genitourinary ED: Denies dysuria or hematuria Musculoskeletal Musculoskeletal: Reports back pain; Denies neck pain Integumentary Reports other Details: Some erythema in both legs without significant pain ; Denies abscess or rash Neurologic Neurologic: Denies headache(s), paresthesias or weakness Psychiatric Psychiatric: Denies suicidal thoughts EXAM Physical Exam Const Vital Signs: 03/29/25 16:06 03/29/25 16:13 03/29/25 18:22 Temperature 97.7 F L Temperature Source Oral Pulse Rate 111 H 107 H Respiratory Rate 16 18 Respiratory Effort Normal Respiratory Depth Normal Respiratory Pattern Normal Blood Pressure 87/42 L 131/97 H Blood Pressure Mean 57 108 Pulse Ox 100 100 100 Oxygen Delivery Method Room Air Room Air Room Air 03/29/25 20:12 Temperature Temperature Source Pulse Rate 104 H Respiratory Rate 18 Respiratory Effort Respiratory Depth Respiratory Pattern Blood Pressure 105/73 Blood Pressure Mean 83 Pulse Ox 100 Oxygen Delivery Method Room Air Positive well nourished and well developed General Appearance ED: well developed and NAD HEENT Reports moist mucous membranes HEENT Narrative: Pain, tenderness, swelling about the right zygomatic arch and the superior right orbital brim, these bones feel to be intact there is no crepitance or deformity, and swelling is very mild. The globe appears to be intact. There is no epistaxis or mid facial instability or oral injury. No mandibular tenderness. No Muhammad sign, no raccoon eyes, no CSF otorhinorrhea, no hemotympanum. normocephalic Eyes PERRL and EOMs intact bilaterally Eyes Narrative: No significant focal pain with active ocular movements. Neck full ROM and supple Resp normal respiratory effort and clear to auscultation bilaterally Cardio regular rate, regular rhythm and no murmurs GI non-tender and non-distended Auscultation: normoactive bowel sounds Palpation: soft Back/Spine no CVA tenderness General Back: other FROM Extremity normal to inspection General Extremety ED: Yes edema; Negative for pulses abnormal or tenderness General Extremity: edema bilateral lower extremity (There are some erythematous areas of both shins fairly symmetric as well as the knees, these areas are nonspecifically tender or hot or indurated. No abscess. No obvious nidus for infection. No palpable cords.) Details: severe; Negative for pulses abnormal Neuro oriented x3, CN's II-XII intact bilaterally and no sensory deficits noted Sensorium / Orientation: awake and alert Motor Exam: general weakness Psych mental status grossly normal Skin no rashes or lesions noted and no wounds MDM MDM MDM Narrative Medical decision making narrative: I reviewed some old labs. Chronic anemia, she states she had a transfusion for it within the last couple weeks, and her renal function was noted. She had mild renal insufficiency and it was back to normal prior to being sent home around 1 week ago. Now, her renal function is normal. She is a little prerenal. She states that the Lasix she was on was not helping at all, it appears to be 20 twice daily according to records. She stopped taking it a couple days ago. X- rays of their injured areas were obtained. Coccyx 2 views, lumbar 3 views, and CT of the face all on my interpretation negative for anything acute. I went to evaluate the patient, it is 7-8 p.m. and she is okay getting a dose of IV Lasix now you know she goes home but she states she prefers not to go home, she is extremely weak all over especially with her legs and they are very heavy due to the swelling, she has had several falls she cannot get up from the falls and has to call EMS to do a lift assist each and every time. She is asking to stay to have further evaluation for rehab which was also under consideration her last admission. History & Record Review Additional record(s) reviewed:: Prior labs Lab Data Attestation: I reviewed the patient's lab results. Labs: Laboratory Results - last 24 hr 03/29/25 17:45 WBC 11.7 H RBC 3.39 L Hgb 9.3 L Hct 31.1 L MCV 91.7 MCH 27.4 MCHC 29.9 L RDW Std Deviation 64.2 H RDW Coeff of Millie 19.0 H Plt Count TNP MPV TNP Immature Gran % (Auto) 0.500 Neut % (Auto) 74.4 H Lymph % (Auto) 17.5 L Sullivan % (Auto) 4.2 Eos % (Auto) 2.9 Baso % (Auto) 0.5 Absolute Neuts (auto) 8.7 H Absolute Lymphs (auto) 2.04 Nucleated RBC % 0 Differential Comment SCANNED Platelet Estimate ADEQUATE Sodium 136 Potassium 4.2 Chloride 109 H Carbon Dioxide 16.9 L Anion Gap 10 BUN 28 H Creatinine 0.78 Estim Creat Clear Calc 108.25 Est GFR (MDRD) Non-Af 103 BUN/Creatinine Ratio 36.1 H Glucose 139 H Calcium 7.8 Radiography Diagnostic Testing: Clinical Impression(s) from Imaging Studies Facial/Sinus 03/29/25 16:45 IMPRESSION: No acute traumatic findings. Reading Location: [id number] Lumbar Spine X-Ray 03/29/25 16:50 IMPRESSION: No evidence of fracture or malalignment. Reading Location: [id number] Sacrum and Coccyx X-Ray 03/29/25 16:50 IMPRESSION: No evidence of fracture or malalignment. Reading Location: [id number] Rhythm Strip Rhythm Strip: Sinus Rhythm Rate: 110 Ectopy: None Management Discussion w/another healthcare provider: Hospitalist Discharge Plan Dx/Rx/DC Orders Clinical Impression: Bilateral lower extremity edema, Chronic pain, Multiple falls, Debility, Contusion of lower back, Contusion of face Disposition Disposition: Acute Care [facility]
--- NOTE | 2025-03-29 16:50 | RAD_ITS ---
PROCEDURE: LUMBAR SPINE 2 OR 3 VIEWS; SACRUM-COCCYX MIN 2 VIEWS 03/29/2025 REASON FOR EXAM: INJURY, PAIN TECHNIQUE: Procedure Code: RODOLFOSPLL; RODOLFOSAC Modality: DX Procedure: LUMBAR SPINE 2 OR 3 VIEWS; SACRUM-COCCYX MIN 2 VIEWS COMPARISON: Lumbar spine MRI 06/06/2021. FINDINGS: No evidence of fracture or subluxation. Alignment is anatomic. Normal bone mineralization. Well preserved vertebral body heights and disc spaces. No substantial degenerative changes are appreciated. Grossly unremarkable soft tissues. Right upper abdominal cholecystectomy surgical clips. RAD/Lumbar Spine 2 or 3 Views IMPRESSION: No evidence of fracture or malalignment. Reading Location: [facility]
--- NOTE | 2025-03-29 16:50 | RAD_ITS ---
PROCEDURE: LUMBAR SPINE 2 OR 3 VIEWS; SACRUM-COCCYX MIN 2 VIEWS 03/29/2025 REASON FOR EXAM: INJURY, PAIN TECHNIQUE: Procedure Code: PHAMLL; AUDREYC Modality: DX Procedure: LUMBAR SPINE 2 OR 3 VIEWS; SACRUM-COCCYX MIN 2 VIEWS COMPARISON: Lumbar spine MRI 06/06/2021. FINDINGS: No evidence of fracture or subluxation. Alignment is anatomic. Normal bone mineralization. Well preserved vertebral body heights and disc spaces. No substantial degenerative changes are appreciated. Grossly unremarkable soft tissues. Right upper abdominal cholecystectomy surgical clips. RAD/Sacrum-Coccyx min 2 Views IMPRESSION: No evidence of fracture or malalignment. Reading Location: [facility]
[2025-03-29] MEDS: DiphenhydrAMINE 50 MG/ML Syringe IV (17:51)
[2025-03-29 17:59] LABS: Hematocrit 31.1 % (37-47); Hemoglobin 9.3 g/dL (12.0-15.0); Immature Granulocytes Count 0.060 X10^3/uL (0.0-0.0); Mean Corp Hgb Conc 29.9 g/dL (32-36); Mean Corpuscular Volume 91.7 fL (81-99); NRBC Flagged by Analyzer 0 % (0-5); POSITIVE COUNT YES; RBC Distribution Width CV 19.0 % (11.6-14.6); RBC Distribution Width SD 64.2 fl (35.1-43.9); Red Blood Count 3.39 M/mm3 (4.2-5.4); White Blood Count 11.7 K/mm3 (4.4-11.0)
[2025-03-29 18:21] LABS: Anion Gap 10 (5-15); BUN 28 mg/dL (4-19); BUN/Creat Ratio 36.1 RATIO (10-20); Calcium,Total 7.8 mg/dL (7.6-11.0); Carbon Dioxide 16.9 mmol/L (21.0-32.0); Chloride 109 mmol/L (98-108); Estimated Creatinine Clearance 108.25 ml/min (50-250); Glucose 139 mg/dL (70-99); Potassium 4.2 mmol/L (3.3-5.1)
[2025-03-29 18:22] VITALS: BP 131/97; PULSE 107; RESP 18; O2SAT 100
[2025-03-29 19:50] LABS: Differential Indicated SCAN CRITERIA MET
[2025-03-29 19:51] LABS: Differential Comment SCANNED
[2025-03-29 20:12] VITALS: BP 105/73; PULSE 104; RESP 18; O2SAT 100
[2025-03-29 20:58] LABS: Color, Urine Yellow (Yellow); Glucose, Dipstick Normal (Normal); Ketone-Dipstick Negative (Negative); Leukocyte Esterase-Dipstick Negative /ul (Negative); Nitrite-Dipstick Negative (Negative); Occult Blood-Urine Negative /ul (Negative); Protein-Dipstick 15 mg/dl (Negative); Specific Gravity, Urine 1.015 (1.002-1.030); Urine Bilirubin Dipstick Negative (Negative)
[2025-03-29 21:15] LABS: Red Blood Cells-Urine 10-25 SEEN /hpf (0-5)
[2025-03-29 21:16] LABS: Mucous, Urine 2+ /hpf (<or=2+)
[2025-03-29 21:17] LABS: Squamous Epithelial Cells - UA 5-10 SEEN /hpf (5-10)
[2025-03-29 21:18] LABS: Calcium Oxalate Crystals Ur 1+ /hpf (<or=2+)
[2025-03-29 21:25] VITALS: BP 93/56; PULSE 102; RESP 16; TEMP 36.8; O2SAT 96
--- NOTE | 2025-03-29 21:33 | PCM.HP.STD ---
[facility] - General General Date of Admission: 03/29/25 Date of Service: 03/29/25 Chief Complaint: Frequent falls, weakness of legs HPI Narrative ERIN TORRES, is a 35 F who presents to the emergency room with a chief complaint of frequent falls at home. Patient was seen and admitted in the hospital last week and discharged on March 23 for similar complaint of frequent falls and at that time was diagnosed with GI bleed and received 1 unit of packed red blood cells during her visit but was unable to complete colonoscopy as she refused to do the bowel prep completely. Patient denies any melena or hematochezia at present time but does have lower extremity swelling from her feet up to her lower abdomen. She complains that she has had numerous falls at home and has required paramedics to come out and help her get up and is now wanting to be admitted so that she can be transferred to a rehab facility for more aggressive physical therapy. She feels she is unsafe to be home alone. Patient denies any chest pain, shortness of breath, fevers or chills but does periodically have nausea no vomiting and has taken Reglan with Benadryl in the past successfully managing this nausea. Laboratory studies reveal white blood cell count of 11.7, hemoglobin 9.3, hematocrit 31.1, platelets were not reported as they were clumping on the exam, sodium 136, potassium 4.2, chloride 109, bicarb 16.9, BUN 28, creatinine 0.78 glucose 138, x-ray sacrum no fracture, x-ray lumbar spine no fracture, x-ray face and sinuses no fracture. Patient will be admitted to general medical floor with physical therapy consulted to evaluate and treat as well as additional Lasix to manage her edema/anasarca. Patient is full code. [facility] Medical History Anemia CAP (community acquired pneumonia) Generalized weakness Hx of substance abuse Bipolar disorder Kidney stones GERD (gastroesophageal reflux disease) Non-smoker Easy bruising Dietary restriction Implantable loop recorder present Wears glasses Anxiety MRSA infection Substance abuse History of steroid therapy Diabetes Injury of head and neck History of IBS Gastric reflux Neuropathy delivery delivered Arthritis Prolonged QT interval PCOS (polycystic ovarian syndrome) Factor V Leiden Anxiety Depression Pulmonary embolism DVT (deep venous thrombosis) TIA (transient ischemic attack) Ovarian cyst Home Medications ?Medication ?Instructions ?Recorded ?Last Taken ?Type blood-glucose,supervisor cleaning and annealing,cont #1 ea 06/09/24 Unknown Rx (Dexcom G7 Wastewater Operator) atogepant 60 mg tablet (Qulipta) 60 mg PO DAILY 07/14/24 03/29/25 History lamotrigine 200 mg tablet 200 mg PO BID 07/14/24 03/29/25 History epinephrine 0.3 mg/0.3 mL 0.3 mg (0.3 mL) IM Q5-15M PRN 10/05/24 Unknown Rx injection, auto-injector (EpiPen anaphylaxis #2 ea 2-Scout) albuterol sulfate 90 mcg/actuation 2 puff inhalation Q6H PRN 11/19/24 Unknown Rx aerosol inhaler shortness of breath or wheezing #8.5 grams blood sugar diagnostic (OneTouch #100 ea 12/02/24 Unknown Rx Verio test strips) lancets 30 gauge (OneTouch #200 ea 12/02/24 Unknown Rx UltraSoft 2 Lancet) acetaminophen 500 mg tablet 1,000 mg (2 x 500 mg) PO Q8 PRN 12/08/24 03/29/25 Rx (Tylenol Extra Strength) fever or pain #60 tabs blood-glucose sensor (Dexcom G7 #1 ea 12/09/24 Unknown Rx Sensor device) sumatriptan succinate 6 mg/0.5 mL 6 mg subcut Q12H PRN MIGRAINE 12/11/24 Unknown History subcutaneous pen injector zolpidem 12.5 mg tablet,extended 12.5 mg PO QHS PRN insomnia 12/18/24 03/28/25 History release,multiphase (Ambien CR) sumatriptan succinate 100 mg tablet See Rx Instructions PO .COMPLEX 01/11/25 Unknown Rx #12 tabs pantoprazole 40 mg tablet,delayed 40 mg PO QDAY #90 tabs 01/25/25 03/29/25 Rx release dulaglutide 1.5 mg/0.5 mL 1.5 mg subcut FR 03/04/25 03/29/25 History subcutaneous pen injector (Trulicity) clonidine HCl 0.2 mg tablet 0.2 mg PO TID anxiety 03/05/25 03/27/25 History promethazine 25 mg rectal 25 mg [place] Q6H PRN nausea and 03/07/25 03/27/25 Rx suppository vomiting #12 ea furosemide 20 mg tablet (Lasix) 20 mg PO BID #20 tabs 03/11/25 Unknown Rx aripiprazole 15 mg tablet 15 mg PO DAILY 03/19/25 03/29/25 History famotidine 20 mg tablet 20 mg PO DAILY 03/19/25 03/28/25 History docusate sodium 100 mg capsule 100 mg PO DAILY PRN constipation 03/23/25 03/29/25 Rx (Colace) #30 caps gabapentin 400 mg capsule 400 mg PO TID #270 caps 03/23/25 03/29/25 Rx linaclotide 290 mcg capsule 290 mcg PO QDAY #90 caps 03/26/25 03/26/25 Rx (Linzess) Allergy/AdvReac Type Severity Reaction Status Date / Time bee venom protein (honey Allergy Severe Anaphylaxis Verified 03/29/25 16:12 bee) (bee sting) ziprasidone (From Geodon) Allergy Severe facial Verified 03/29/25 16:12 swelling ciprofloxacin (From Cipro) Allergy Intermediate Angioedema Verified 03/29/25 16:12 levofloxacin (From Levaquin) Allergy Intermediate Angioedema Verified 03/29/25 16:12 adhesive tape Allergy Mild Rash Verified 03/29/25 16:12 latex Allergy Mild Rash Verified 03/29/25 16:12 Iodinated Contrast Media Allergy Hives Verified 03/29/25 16:12 ondansetron (From Zofran) Allergy Hives Verified 03/29/25 16:12 propranolol Allergy Angioedema Verified 03/29/25 16:12 midazolam (From Versed) AdvReac Severe Other Verified 03/29/25 16:12 haloperidol (From Haldol) AdvReac Other Verified 03/29/25 16:12 metoclopramide (From Reglan) AdvReac Other Verified 03/29/25 16:12 Family History Other Autoimmune disorder Bleeding disorder Breast cancer CVA (cerebral vascular accident) Colon cancer Diabetes Heart disease Hypertension Myocardial infarction Ovarian cancer Thyroid disorder Surgical History History of vascular access device Port-A-Cath in place H/O hernia repair H/O wisdom tooth extraction H/O oophorectomy Hx of cholecystectomy H/O tubal ligation Social History adopted: No household members: children and none number of children: 2 current occupational status: unemployed pets and animals: No sexually active: No Smoking Status: Never smoker alcohol intake: never substance use type: does not use caffeine: No frequency: 3-4 times per week do you feel safe at home: Yes ROS Constitutional Constitutional: Reports weakness; Denies chills or fever(s) Eyes Eyes: Denies blurry vision ENT HEENT: Denies abnormal hearing Cardiovascular Cardiovascular: Denies chest pain Respiratory/Chest Respiratory/Chest: Denies cough or shortness of breath at rest Gastrointestinal Gastrointestinal: Denies abdominal pain Genitourinary Genitourinary: Denies dysuria Musculoskeletal Musculoskeletal: Reports back pain, extremity pain and joint swelling Integumentary Integumentary: Denies dry skin Neurologic Neurologic: Reports weakness Psychiatric Psychiatric: Reports anxiety Vital Signs Vital Signs Vital Signs: 03/29/25 16:06 03/29/25 16:13 03/29/25 18:22 Temperature 97.7 F L Temperature Source Oral Pulse Rate 111 H 107 H Respiratory Rate 16 18 Respiratory Effort Normal Respiratory Depth Normal Respiratory Pattern Normal Blood Pressure 87/42 L 131/97 H Blood Pressure Mean 57 108 Pulse Ox 100 100 100 Oxygen Delivery Method Room Air Room Air Room Air 03/29/25 20:12 03/29/25 21:25 Temperature 98.2 F Temperature Source Pulse Rate 104 H 102 H Respiratory Rate 18 16 Respiratory Effort Respiratory Depth Respiratory Pattern Blood Pressure 105/73 93/56 L Blood Pressure Mean 83 68 Pulse Ox 100 96 Oxygen Delivery Method Room Air Weight Weight: 210 lb 5.136 oz Body Mass Index (BMI) 39.7 Physical Exam Const oriented x3 and no apparent distress HEENT normocephalic and head/scalp atraumatic Eyes PERRL Neck no lymphadenopathy Lymph Lymphatic: no lymphadenopathy noted Resp normal respiratory effort, normal air movement and clear to auscultation bilaterally Cardio regular rate, regular rhythm, S1 normal heart sound and S2 normal heart sound GI normal to inspection, nondistended, normoactive bowel sounds Extremity General Extremity: edema bilateral lower extremity (Pitting) Details: moderate Skin Skin Narrative: Pale General Skin Exam: no breakdown Neuro no focal motor deficits and no sensory deficits noted Psych affect normal Mood & Affect: anxious Results Lab / Micro Data 03/29/25 17:45 03/29/25 17:45 Labs: Laboratory Results - last 24 hr 03/29/25 17:45: WBC 11.7 H, RBC 3.39 L, Hgb 9.3 L, Hct 31.1 L, MCV 91.7, MCH 27.4, MCHC 29.9 L, RDW Std Deviation 64.2 H, RDW Coeff of Millie 19.0 H, Plt Count TNP, MPV TNP, Immature Gran % (Auto) 0.500, Neut % (Auto) 74.4 H, Lymph % (Auto) 17.5 L, Jackson % (Auto) 4.2, Eos % (Auto) 2.9, Baso % (Auto) 0.5, Absolute Neuts (auto) 8.7 H, Absolute Lymphs (auto) 2.04, Nucleated RBC % 0, Differential Comment SCANNED, Platelet Estimate ADEQUATE, Sodium 136, Potassium 4.2, Chloride 109 H, Carbon Dioxide 16.9 L, Anion Gap 10, BUN 28 H, Creatinine 0.78, Estim Creat Clear Calc 108.25, Est GFR (MDRD) Non-Af 103, BUN/Creatinine Ratio 36.1 H, Glucose 139 H, Calcium 7.8 03/29/25 20:39: Urine Color Yellow, Urine Clarity Clear, Urine pH 6.0, Ur Specific [place]dido 1.015, Urine Protein 15 H, Urine Glucose (UA) Normal, Urine Ketones Negative, Urine Occult Blood Negative, Urine Nitrite Negative, Urine Bilirubin Negative, Urine Urobilinogen Normal, Ur Leukocyte Esterase Negative, Urine RBC 10-25 SEEN, Urine WBC 10-25 SEEN, Ur Squamous Epith Cells 5-10 SEEN, Calcium Oxalate Crystal 1+, Urine Bacteria 0 SEEN, Urine Mucus 2+ Rhythm Strip Rhythm Strip: Sinus Rhythm Rate: 110 Ectopy: None Imaging Radiology Impression Facial/Sinus 03/29/25 16:45 IMPRESSION: No acute traumatic findings. Reading Location: [facility] Lumbar Spine X-Ray 03/29/25 16:50 IMPRESSION: No evidence of fracture or malalignment. Reading Location: [facility] Sacrum and Coccyx X-Ray 03/29/25 16:50 IMPRESSION: No evidence of fracture or malalignment. Reading Location: [facility] Assessment & Plan Assessment/Plan (1) Debility: (2) Multiple falls: (3) Bilateral lower extremity edema: (4) Contusion of lower back: (5) Contusion of face: PLAN: Plan 1. Frequent falls with debility?patient feels unsafe to stay at home and will be admitted to general medical floor, get physical therapy consult and case management consult for discharge planning to rehab facility. 2. Anemia?repeat CBC in the a.m. 3. Contusion to lower back and face?x-rays are negative for fracture May use ice as needed. 4. Bipolar disorder?continue routine home medications 5. DVT prophylaxis?low molecular weight heparin 6. Edema?Lasix 20 mg twice daily and repeat BMP in the a.m. CODE STATUS?full
[2025-03-29 22:00] VITALS: BP 96/67; PULSE 105; RESP 16; O2SAT 100
--- NOTE | 2025-03-29 22:29 | ED.RN ---
when this RN went into the patient's room with a wheel chair to take her up to the floor for admission, patient stated that she had her family on their way to come get her. Patient expressed that she felt like people weren't treating her well and no one was listening to her. This RN attempted to explain that the staff was busy and was not doing anything maliciously to her and we wanted her to maintain safety. After discussing with the physician he decided home discharge would be appropriate.
== END 2025-03-29 22:45 | disposition home or self-care (01) ==
LOC: ED 19:52 → MS3 22:10 → ED 22:24
PROVIDERS: Emergency Medicine; Emergency Provider Family Medicine; PCP Physician Assistant; Visit Provider Family Medicine
DX: R60.0 Localized edema (principal); E11.9 Type 2 diabetes mellitus without complications; R53.81 Other malaise; G89.29 Other chronic pain; S00.83XA Contusion of other part of head, initial encounter; Z79.85 Long-term (current) use of injectable non-insulin antidiabetic drugs; K21.9 Gastro-esophageal reflux disease without esophagitis; D64.9 Anemia, unspecified; S20.229A Contusion of unspecified back wall of thorax, initial encounter; R29.6 Repeated falls; W01.190A Fall on same level from slipping, tripping and stumbling with subsequent striking against furniture, initial encounter
CPT/HCPCS: 36415; 70486; 72100; 72220; 80048; 81001; 85025; 96374; 96375; 99285; A4216; J1938

== ENCOUNTER → 2025-04-14 | Outpatient (CLI) | payer MEDICAID, SELFPAY ==
[2025-04-14 14:05] LABS: Hematocrit 27.8 % (37-47); Hemoglobin 8.9 g/dL (12.0-15.0); Immature Granulocytes Count 0.030 X10^3/uL (0.0-0.0); Mean Corp Hgb Conc 32.0 g/dL (32-36); Mean Corpuscular Volume 86.6 fL (81-99); Mean Platelet Vol. 8.9 fl (6.2-12.0); NRBC Flagged by Analyzer 0 % (0-5); Platelet Count 277 K/mm3 (150-450); RBC Distribution Width CV 17.8 % (11.6-14.6); RBC Distribution Width SD 57.0 fl (35.1-43.9); Red Blood Count 3.21 M/mm3 (4.2-5.4); White Blood Count 8.0 K/mm3 (4.4-11.0)
[2025-04-14 14:29] LABS: AST(SGOT) 13 U/L (<=31); Alanine Aminotransfer ALT/SGPT 18 U/L (<=34); Albumin, Serum 1.7 g/dL (3.5-5.0); Alkaline Phosphatase 163 U/L (35-104); Anion Gap 11 (5-15); BUN 23 mg/dL (4-19); BUN/Creat Ratio 15.5 RATIO (10-20); Calcium,Total 7.6 mg/dL (7.6-11.0); Carbon Dioxide 23.2 mmol/L (21.0-32.0); Chloride 106 mmol/L (98-108); Ferritin 300 ng/mL (22-378); Globulin 2.7 g/dL (2.2-4.2); Glucose 135 mg/dL (70-99); Iron 20 ug/dL (50-170); Iron Binding Capacity,Unsat 72 ug/dL (228-428); Potassium 3.2 mmol/L (3.3-5.1)
[2025-04-14 14:43] LABS: Barbiturate Urine NEGATIVE (< 200 ng/mL); Benzodiazepine Urine NEGATIVE (< 200 ng/mL); PCP Urine NEGATIVE (< 25 ng/mL); THC Urine NEGATIVE (< 50 ng/mL)
[2025-04-14 14:57] LABS: Iron Binding Capacity,Total 92 ug/dL (250-450)
[2025-04-16 14:09] LABS: ANTINUCLEAR ANTIBODIES DIRECT Negative (Negative)
== END | disposition home or self-care (01) ==
LOC: PAVLAB 13:36
PROVIDERS: PCP Physician Assistant; Referring Provider Physician Assistant; Visit Provider Physician Assistant
DX: R23.1 Pallor (principal); I26.99 Other pulmonary embolism without acute cor pulmonale; R42 Dizziness and giddiness; R00.0 Tachycardia, unspecified
CPT/HCPCS: 86225; 36415; 80053; 80307; 82728; 83540; 83550; 84443; 85025; 86038

== ENCOUNTER 2025-05-21 10:41 | Emergency (ER) | payer MEDICAID, SELFPAY ==
[2025-05-21 10:42] VITALS: BP 127/80; PULSE 108; RESP 17; TEMP 36.7; O2SAT 100; BMI 36.2
--- NOTE | 2025-05-21 11:24 | EKG12_ITS ---
Test Reason : CP/DIZZINESS
[2025-05-21 11:47] VITALS: BP 127/80; PULSE 108; RESP 17; TEMP 36.6; O2SAT 98
--- NOTE | 2025-05-21 11:55 | RAD_ITS ---
PROCEDURE: RAD/Chest 1 View (Portable)
[2025-05-21 12:00] VITALS: BP 128/83; PULSE 96; RESP 19; TEMP 36.4; O2SAT 100
[2025-05-21 12:00] LABS: Hematocrit 25.0 % (37-47); Hemoglobin 8.1 g/dL (12.0-15.0); Immature Granulocytes Count 0.010 X10^3/uL (0.0-0.0); Mean Corp Hgb Conc 32.4 g/dL (32-36); Mean Corpuscular Volume 88.3 fL (81-99); Mean Platelet Vol. 8.7 fl (6.2-12.0); NRBC Flagged by Analyzer 0 % (0-5); Platelet Count 260 K/mm3 (150-450); RBC Distribution Width CV 15.1 % (11.6-14.6); RBC Distribution Width SD 49.4 fl (35.1-43.9); Red Blood Count 2.83 M/mm3 (4.2-5.4); White Blood Count 3.7 K/mm3 (4.4-11.0)
[2025-05-21 12:29] LABS: Mucous, Urine 0 SEEN /hpf (<or=2+); Red Blood Cells-Urine 0 SEEN /hpf (0-5); Squamous Epithelial Cells - UA 0 SEEN /hpf (5-10)
[2025-05-21 12:30] LABS: Color, Urine Yellow (Yellow); Glucose, Dipstick Normal (Normal); Ketone-Dipstick Negative (Negative); Leukocyte Esterase-Dipstick 25 /ul (Negative); Nitrite-Dipstick Negative (Negative); Occult Blood-Urine Negative /ul (Negative); Protein-Dipstick 15 mg/dl (Negative); Specific Gravity, Urine 1.015 (1.002-1.030); Urine Bilirubin Dipstick Negative (Negative)
[2025-05-21 12:46] LABS: Troponin T High Sensitivity 7 ng/L (<=14)
[2025-05-21 12:49] LABS: AST(SGOT) 11 U/L (<=31); Alanine Aminotransfer ALT/SGPT 13 U/L (<=34); Albumin, Serum 2.3 g/dL (3.5-5.0); Alkaline Phosphatase 88 U/L (35-104); Anion Gap 7 (5-15); BUN 12 mg/dL (4-19); BUN/Creat Ratio 14.1 RATIO (10-20); Bilirubin, Direct 0.11 mg/dL (0.00-0.30); Calcium,Total 8.4 mg/dL (7.6-11.0); Carbon Dioxide 25.9 mmol/L (21.0-32.0); Chloride 108 mmol/L (98-108); Estimated Creatinine Clearance 94.34 ml/min (50-250); Globulin 2.3 g/dL (2.2-4.2); Glucose 125 mg/dL (70-99); Potassium 4.5 mmol/L (3.3-5.1)
--- NOTE | 2025-05-21 13:05 | CT_ITS ---
PROCEDURE: CT/CTA Chest W/WO Contrast
[2025-05-21] MEDS: DiphenhydrAMINE 50 MG/ML Syringe IV (13:13)
[2025-05-21 14:00] VITALS: BP 124/78; PULSE 93; RESP 12; O2SAT 100
[2025-05-21 14:54] LABS: Troponin T High Sens 2 HR 18 ng/L (<=14)
--- NOTE | 2025-05-21 16:06 | EX.ED.DYSGE1 ---
HPI History of Present Illness Chief Complaint: Dizziness Informant: patient and EMS Narrative Narrative: Patient arriving via EMS chief complaint of syncope. Patient states she has been experiencing dizziness and lightheadedness as well as abdominal pain and sternal pain. She states that she got sick over the summer and has had a lot of testing. Most recently was admitted at [facility]. Apparently she left AGAINST MEDICAL ADVICE on 1027. She states she now has home health care. She states that she has had bone marrow biopsy as well as other numerous test to try to figure out her anemia and her malnutrition. Today she states she had a syncopal episode at home. I see in the computer that around May 11 she had a hemoglobin level of 8. She notes that she has been on diuretics because of anasarca brought on by the malnutrition and low albumin. Patient has a history of factor V and has had prior pulmonary embolism. She is not currently anticoagulated. [facility] Medical History Anemia CAP (community acquired pneumonia) Generalized weakness Hx of substance abuse Bipolar disorder Kidney stones GERD (gastroesophageal reflux disease) Non-smoker Easy bruising Dietary restriction Implantable loop recorder present Wears glasses Anxiety MRSA infection Substance abuse History of steroid therapy Diabetes Injury of head and neck History of IBS Gastric reflux Neuropathy delivery delivered Arthritis Prolonged QT interval PCOS (polycystic ovarian syndrome) Factor V Leiden Anxiety Depression Pulmonary embolism DVT (deep venous thrombosis) TIA (transient ischemic attack) Ovarian cyst Home Medications ?Medication ?Instructions ?Recorded ?Last Taken ?Type epinephrine 0.3 mg/0.3 mL 0.3 mg (0.3 mL) IM Q5-15M PRN 10/05/24 Unknown Rx injection, auto-injector (EpiPen anaphylaxis #2 ea 2-Scout) albuterol sulfate 90 mcg/actuation 2 puff inhalation Q6H PRN 11/19/24 Unknown Rx aerosol inhaler shortness of breath or wheezing #8.5 grams sumatriptan succinate 6 mg/0.5 mL 6 mg subcut Q12H PRN MIGRAINE 12/11/24 Unknown History subcutaneous pen injector zolpidem 12.5 mg tablet,extended 12.5 mg PO QHS PRN insomnia 12/18/24 03/28/25 History release,multiphase (Ambien CR) famotidine 20 mg tablet 20 mg PO DAILY 03/19/25 03/28/25 History gabapentin 400 mg capsule 400 mg PO TID #270 caps 03/23/25 03/29/25 Rx linaclotide 290 mcg capsule 290 mcg PO QDAY #90 caps 03/26/25 03/26/25 Rx (Linzess) potassium chloride 20 mEq oral 20 meq PO BID #100 ea 04/15/25 Unknown Rx packet pantoprazole 40 mg tablet,delayed 40 mg PO DAILY #90 TABLETS 04/20/25 Unknown Rx release blood-glucose sensor (Dexcom G7 #1 ea 04/23/25 Unknown Rx Sensor device) blood-glucose,windows security analyst,cont #1 ea 04/23/25 Unknown Rx (Dexcom G7 Custodial Officer) blood sugar diagnostic (OneTouch #100 ea 04/27/25 Unknown Rx Verio test strips) hyoscyamine sulfate 0.125 mg tablet 0.125 mg PO BID-QID PRN dyspepsia 04/27/25 Unknown Rx #60 tabs lancets 30 gauge (OneTouch #200 ea 04/27/25 Unknown Rx UltraSoft 2 Lancet) sumatriptan succinate 100 mg tablet See Rx Instructions PO .COMPLEX 04/27/25 Unknown Rx #12 tabs ergocalciferol (vitamin D2) 1,250 1,250 mcg PO QWEEK #1 cap 05/12/25 Unknown Rx mcg (50,000 unit) capsule (Vitamin D2) folic acid 1 mg tablet 1 mg PO QDAY #30 tabs 05/12/25 Unknown Rx magnesium oxide 400 mg PO BID #60 tabs 05/12/25 Unknown Rx promethazine 25 mg [address] Q6H PRN nausea and 05/12/25 Unknown Rx suppository vomiting #12 ea spironolactone 50 mg tablet 50 mg PO BID #60 tabs 05/12/25 Unknown Rx torsemide 20 mg tablet 20 mg PO QDAY #30 tabs 05/12/25 Unknown Rx indomethacin 50 mg capsule 50 mg PO TID 05/17/25 Unknown History lorazepam 0.5 mg tablet (Ativan) 0.5 mg PO QDAY 05/17/25 Unknown History meclizine 25 mg tablet 25 mg PO BID 05/17/25 Unknown History tizanidine 4 mg capsule 4 mg PO TID PRN 05/17/25 Unknown History docusate sodium 100 mg capsule 100 mg PO DAILY PRN for 05/18/25 Unknown Rx constipation #30 caps Allergy/AdvReac Type Severity Reaction Status Date / Time bee venom protein (honey Allergy Severe Anaphylaxis Verified 04/14/25 14:52 bee) (bee sting) ziprasidone (From Geodon) Allergy Severe facial Verified 04/14/25 14:52 swelling ciprofloxacin (From Cipro) Allergy Intermediate Angioedema Verified 04/14/25 14:52 levofloxacin (From Levaquin) Allergy Intermediate Angioedema Verified 04/14/25 14:52 adhesive tape Allergy Mild Rash Verified 04/14/25 14:52 latex Allergy Mild Rash Verified 04/14/25 14:52 Iodinated Contrast Media Allergy Hives Verified 04/14/25 14:52 ondansetron (From Zofran) Allergy Hives Verified 04/14/25 14:52 propranolol Allergy Angioedema Verified 04/14/25 14:52 midazolam (From Versed) AdvReac Severe Other Verified 04/14/25 14:52 haloperidol (From Haldol) AdvReac Other Verified 04/14/25 14:52 metoclopramide (From Reglan) AdvReac Other Verified 04/14/25 14:52 Family History Father Alcoholism Hypertension Thyroid disorder Mother Anxiety Autoimmune disorder Bleeding disorder Hypertension Mental disorder CVA (cerebral vascular accident) Suicide attempt Thyroid disorder Other Breast cancer Colon cancer Diabetes Heart disease Myocardial infarction Ovarian cancer Surgical History History of vascular access device Port-A-Cath in place H/O hernia repair H/O wisdom tooth extraction H/O oophorectomy Hx of cholecystectomy H/O tubal ligation Social History adopted: No household members: children and none number of children: 2 current occupational status: unemployed pets and animals: No sexually active: No Smoking Status: Never smoker alcohol intake: never substance use type: does not use caffeine: No frequency: 3-4 times per week do you feel safe at home: Yes ROS ROS ED ROS Narrative Generalized weakness/fatigue Constitutional Constitutional ED: Denies chills, fever(s) or weight loss Eyes Eyes: Denies change in vision or diplopia ENT ENT ED: Denies ear pain, rhinorrhea or sore throat Cardiovascular Cardiovascular: Reports chest pain and other Details: syncope ; Denies orthopnea, palpitations or racing heartbeat Respiratory/Chest Respiratory/Chest: Reports dyspnea and dyspnea on exertion; Denies cough or orthopnea Gastrointestinal Gastrointestinal: Reports abdominal pain and nausea; Denies diarrhea or vomiting Genitourinary Genitourinary ED: Denies dysuria, hematuria or urinary frequency Musculoskeletal Musculoskeletal: Denies arthralgias or myalgias Integumentary Denies abscess or rash Neurologic Neurologic: Denies headache(s) or weakness Psychiatric Psychiatric: Denies anxiety, depression, suicidal ideation or suicidal thoughts Endocrine Endocrinology: Denies polydipsia, polyphagia or polyuria Allergic/Immunologic Allergic/Immunologic ED: Denies mouth swelling, tongue swelling or urticaria EXAM Physical Exam Const Vital Signs: 05/21/25 10:42 05/21/25 10:50 05/21/25 11:47 Temperature 98.0 F 98 F Temperature Source Oral Oral Pulse Rate 108 H 108 H Respiratory Rate 17 17 Respiratory Effort Normal Blood Pressure 127/80 H 127/80 H Blood Pressure Mean 95 95 Pulse Ox 100 98 Oxygen Delivery Method Room Air Room Air 05/21/25 12:00 05/21/25 14:00 05/21/25 17:27 Temperature 97.5 F L Temperature Source Oral Pulse Rate 96 93 89 Respiratory Rate 19 H 12 16 Respiratory Effort Blood Pressure 128/83 H 124/78 H 125/79 H Blood Pressure Mean 98 93 94 Pulse Ox 100 100 100 Oxygen Delivery Method Room Air Room Air Room Air 05/21/25 18:02 Temperature 98 F Temperature Source Pulse Rate 88 Respiratory Rate 16 Respiratory Effort Blood Pressure 127/71 H Blood Pressure Mean 89 Pulse Ox 100 Oxygen Delivery Method Positive well nourished and well developed General Appearance ED: well developed, NAD and pallor HEENT Reports normocephalic, head/scalp atraumatic and moist mucous membranes Eyes PERRL and EOMs intact bilaterally General Eye ED: Yes pale conjunctiva Neck no lymphadenopathy, supple and no JVD Resp normal respiratory effort and clear to auscultation bilaterally Cardio regular rate, regular rhythm and no murmurs GI Inspection: Negative for abdominal distention Auscultation: normoactive bowel sounds Palpation: soft and tender other (Diffuse); Negative for guarding or rebound tenderness present Back/Spine no CVA tenderness and normal ROM Extremity normal to inspection General Extremety ED: Negative for edema General Extremity: Negative for edema Neuro oriented x3 and CN's II-XII intact bilaterally Sensorium / Orientation: alert Motor Exam: strength 5/5 throughout Psych Psych Narrative: blunted affect Mood & Affect: Negative for depressed or tearful Skin no rashes or lesions noted and no wounds General Skin Exam: pallor MDM MDM MDM Narrative Medical decision making narrative: Differential diagnosis includes but not limited to anemia requiring transfusion, acute coronary syndrome, dehydration, malnutrition, electrolyte abnormalities, pulmonary embolism aortic dissection CHF Basic blood work shows a white count 3.7 hemoglobin of 8.1 which apparently is going to be stable for her. Platelet count of 260. BMP with a glucose of 125 normal creatinine CO2 25.9. Are albumin is 2.3 total protein 4.6. Urinalysis with no overt infection. My independent interpretation a chest x-ray is no acute process. EKG is a sinus tachycardia at a rate of 102 bpm. Because of the reported prior pulmonary embolism and her syncope and her factor V Leiden status a CTA of her chest was obtained which was negative for pulmonary embolism and dissection. Small left pleural effusion is noted. She had no events on the monitor. Patient received a dose of Toradol for pain. She also requested something for nausea. Despite an allergy to Reglan she states she does well when she gets Reglan and Benadryl. This was given. Initial troponin of 7 and second troponin was 18 therefore a third troponin was ordered. This was <6. Clinically the patient has been stable here in the department. I do not see an obvious reason why the patient would need to be hospitalized tonight. At this point patient will be discharged home following up with primary care and her specialist as scheduled History & Record Review Discussion w/independent historian: Patient Additional record(s) reviewed:: Prior inpatient record, Prior outpatient record, Prior ED visit and Prior labs Lab Data Attestation: I reviewed the patient's lab results. Labs: Laboratory Results - last 24 hr 05/21/25 05/21/25 05/21/25 11:54 12:25 13:50 WBC 3.7 L RBC 2.83 L Hgb 8.1 L Hct 25.0 L MCV 88.3 MCH 28.6 MCHC 32.4 RDW Std Deviation 49.4 H RDW Coeff of Millie 15.1 H Plt Count 260 MPV 8.7 Immature Gran % (Auto) 0.300 Neut % (Auto) 41.8 L Lymph % (Auto) 46.4 H Hawkins % (Auto) 7.4 Eos % (Auto) 3.3 Baso % (Auto) 0.8 Absolute Neuts (auto) 1.5 L Absolute Lymphs (auto) 1.70 Nucleated RBC % 0 Sodium 141 Potassium 4.5 Chloride 108 Carbon Dioxide 25.9 Anion Gap 7 BUN 12 Creatinine 0.85 Estim Creat Clear Calc 94.34 Est GFR (MDRD) Non-Af 93 BUN/Creatinine Ratio 14.1 Glucose 125 H Calcium 8.4 Total Bilirubin 0.16 Direct Bilirubin 0.11 AST 11 ALT 13 Alkaline Phosphatase 88 Troponin T High Sens 7 D Troponin T Hi Sens 2 Hr 18 H Troponin T Hi Sens 4Hr Total Protein 4.6 L Albumin 2.3 L Globulin 2.3 Urine Color Yellow Urine Clarity Clear Urine pH 6.0 Ur Specific [place] 1.015 Urine Protein 15 H Urine Glucose (UA) Normal Urine Ketones Negative Urine Occult Blood Negative Urine Nitrite Negative Urine Bilirubin Negative Urine Urobilinogen Normal Ur Leukocyte Esterase 25 H Urine RBC 0 SEEN Urine WBC 0-5 SEEN Ur Squamous Epith Cells 0 SEEN Urine Bacteria 0 SEEN Urine Mucus 0 SEEN 05/21/25 16:26 WBC RBC Hgb Hct MCV MCH MCHC RDW Std Deviation RDW Coeff of Millie Plt Count MPV Immature Gran % (Auto) Neut % (Auto) Lymph % (Auto) Hawkins % (Auto) Eos % (Auto) Baso % (Auto) Absolute Neuts (auto) Absolute Lymphs (auto) Nucleated RBC % Sodium Potassium Chloride Carbon Dioxide Anion Gap BUN Creatinine Estim Creat Clear Calc Est GFR (MDRD) Non-Af BUN/Creatinine Ratio Glucose Calcium Total Bilirubin Direct Bilirubin AST ALT Alkaline Phosphatase Troponin T High Sens Troponin T Hi Sens 2 Hr Troponin T Hi Sens 4Hr < 6 Total Protein Albumin Globulin Urine Color Urine Clarity Urine pH Ur Specific [place] Urine Protein Urine Glucose (UA) Urine Ketones Urine Occult Blood Urine Nitrite Urine Bilirubin Urine Urobilinogen Ur Leukocyte Esterase Urine RBC Urine WBC Ur Squamous Epith Cells Urine Bacteria Urine Mucus Radiography Diagnostic Testing: Clinical Impression(s) from Imaging Studies Chest X-Ray 05/21/25 11:55 IMPRESSION: No acute cardiopulmonary process Reading Location: [facility] Chest CTA 05/21/25 13:05 IMPRESSION: Small left pleural effusion. No evidence of pulmonary embolism. Reading Location: [id number] Discharge Plan Triage Chief Complaint: Dizziness ED Provider: Jose Holder Dx/Rx/DC Orders Clinical Impression: Syncope, Anemia, Malnutrition, Chest pain, Abdominal pain Instructions: ED Fainting, Uncertain Cause Prescriptions: No Action albuterol sulfate 90 mcg/actuation HFA aerosol inhaler 2 puff inhalation Q6H PRN (Reason: shortness of breath or wheezing) Qty: 8.5 0RF potassium chloride 20 mEq packet 20 meq PO BID Qty: 100 1RF lorazepam [Ativan] 0.5 mg tablet 0.5 mg PO QDAY meclizine 25 mg tablet 25 mg PO BID indomethacin 50 mg capsule 50 mg PO TID Rx Instructions: administer with food or milk tizanidine 4 mg capsule 4 mg PO TID PRN sumatriptan succinate 6 mg/0.5 mL pen injector 6 mg SUBCUT Q12H PRN (Reason: MIGRAINE) zolpidem [Ambien CR] 12.5 mg tablet,ext release multiphase 12.5 mg PO QHS PRN (Reason: insomnia) famotidine 20 mg tablet 20 mg PO DAILY epinephrine [EpiPen 2-Scout] 0.3 mg/0.3 mL auto-injector 0.3 mg IM Q5-15M PRN (Reason: anaphylaxis) Qty: 2 1RF Rx Instructions: do not exceed 3 doses per episode gabapentin 400 mg capsule 400 mg PO TID Qty: 270 0RF Linzess 290 mcg capsule 290 mcg PO QDAY Qty: 90 0RF Patient Comments: ran out, was to be delivered today pantoprazole 40 mg tablet,delayed release (DR/EC) 40 mg PO DAILY Qty: 90 1RF (DME) Dexcom G7 Sensor Device See Rx Instructions .Route Qty: 1 5RF Rx Instructions: As directed (DME) Dexcom G7 Custodial Officer Misc See Rx Instructions .Route Qty: 1 5RF Rx Instructions: As directed (DME) lancets [OneTouch UltraSoft 2 Lancet] 30 gauge misc See Rx Instructions .Route Qty: 200 0RF Rx Instructions: Use once daily to check blood glucose level (DME) OneTouch Verio test strips Strip See Rx Instructions .Route Qty: 100 0RF Rx Instructions: Use one strip once per day to check blood glucose level sumatriptan succinate 100 mg tablet See Rx Instructions PO .COMPLEX Qty: 12 0RF Rx Instructions: take 1 tab at onset of headache; if no relief, may repeat 1 tab after at least 2 hrs; max = 2 tabs/24 hrs PO hyoscyamine sulfate 0.125 mg tablet 0.125 mg PO BID-QID PRN (Reason: dyspepsia) Qty: 60 1RF promethazine 25 mg suppository [address] Q6H PRN (Reason: nausea and vomiting) Qty: 12 1RF ergocalciferol (vitamin D2) [Vitamin D2] 1,250 mcg (50,000 unit) capsule 1,250 mcg PO QWEEK Qty: 1 0RF spironolactone 50 mg tablet 50 mg PO BID Qty: 60 0RF magnesium oxide 400 mg magnesium tablet 400 mg PO BID Qty: 60 0RF torsemide 20 mg tablet 20 mg PO QDAY Qty: 30 0RF folic acid 1 mg tablet 1 mg PO QDAY Qty: 30 0RF docusate sodium 100 mg capsule 100 mg PO DAILY PRN (Reason: for constipation) Qty: 30 0RF Primary Care Provider: Rashawn Yip Referrals: Rashawn Yip PA [Primary Care Provider, Internal Medicine] - As soon as possible Print Language: Belarusian Disposition Disposition: Home, Self Care Discharge Date/Time: 05/21/25 18:13
[2025-05-21 17:27] VITALS: BP 125/79; PULSE 89; RESP 16; O2SAT 100
[2025-05-21 17:40] LABS: Troponin T High Sens 4 HR < 6 ng/L (<=14)
[2025-05-21] MEDS: DiphenhydrAMINE 50 MG/ML Syringe 25 MG IV (17:58)
[2025-05-21 18:02] VITALS: BP 127/71; PULSE 88; RESP 16; TEMP 36.6; O2SAT 100
== END 2025-05-21 18:13 | disposition home or self-care (01) ==
PROVIDERS: Emergency Provider Emergency Medicine; PCP Physician Assistant; Visit Provider Emergency Medicine
DX: R55 Syncope and collapse (principal); R07.9 Chest pain, unspecified; E46 Unspecified protein-calorie malnutrition; D64.9 Anemia, unspecified; Z86.711 Personal history of pulmonary embolism; R10.9 Unspecified abdominal pain; Z86.718 Personal history of other venous thrombosis and embolism; K21.9 Gastro-esophageal reflux disease without esophagitis; R06.09 Other forms of dyspnea
CPT/HCPCS: 36591; 71045; 71275; 80048; 80076; 81001; 84484; 85025; 93005; 96374; 96375; 96376; 99285; Q9967; A4216

== ENCOUNTER 2025-05-26 14:00 | Outpatient (RCR) | payer MEDICAID, SELFPAY ==
--- NOTE | 2025-05-31 14:23 | NS ---
05/31/25: RDN returned phone call from Tila at [facility] (P: [phone]) this morning regarding patient enteral nutrition order. Tila reports that the patient needed to sign paperwork in order to get her enteral nutrition supplies sent to her. Steph expedited her order because the patient told them (Steph) that she was supposed to get her tube feeding supplies on (05/27) or Saturday (05/28). Steph offered to text the patient information that needed signed but patient reported that she didn't have data on her government phone to be able to sign that paperwork. [facility] also offered to email or text a link to an emergency stunt person but pt declined. Tila reports they (Steph) asked the patient to come to their office that is only ~7 minutes away from the patient and pt declined to do that. Tila told this RDN that they could have someone come out to the patient's house with the physical paperwork but they didn't have any times available to come out to the patients house on Saturday as their schedule was already full. DARRELN offered to call patient to follow-up. RDN called Clare this afternoon. Noted pt was in this hospital over the weekend for an infected feeding tube. RDN expressed sympathy regarding PEG tube infection. RDN brought up paperwork that patient needed to get signed so that [employer] could send her tube feeding supplies out. Pt reports that she didn't like the tone that [employer] used with her when they called her. Pt reports that information was sent to her cousin and Clare just signed the information that was needed by Steph. Patient reports she doesn't want to use this company ([employer]) for future tube feeding orders. Pt reports being upset that she didn't get tube feeding supplies last (05/27) or Saturday (05/28). RDN apologized for the miscommunication and questioned patient about who told her that she would get supplies this quickly. Pt states someone at the hospital told her that but she didn't have a specific name. RDN let pt know that most [employer] companies take a few days to run the order through insurance and to get supplies shipped out. Pt reiterated that she doesn't want to use [employer] for future enteral nutrition orders. RDN let patient know that she would look into other companies that might accept her insurance for enteral nutrition. Let patient know that supplies should be sent out soon now that she signed the paperwork that [facility] needed in order to ship her order. Asked patient to call this RDN when she recieve her enteral supplies so that we can set up an in-person appointment for tube feeding follow-up. KATHERINE called Tila at [facility] back and left a voicemail letting her know that the patient signed the information that was previously requested. Also let Tila know that the patient isn't happy with their services and that pt reports not wanting to use their services for reorder. Fátima Zamora RDN, LD
--- NOTE | 2025-06-07 09:48 | NS ---
Addendum entered and electronically signed by Fátima Zamora 06/07/25 12:30: 06/07/25: Called patient who reports that she is on the schedule to have her PEG tube removed on 06/09 currently but states she has had some time to think about the benefits of keeping the PEG tube in and states that she has been feeling a little better today than what she had been over the weekend. Reports having significant anasarca and that the bumper on her PEG tube is hard to rotate because it is tight up against her skin. RDN recommend reaching out to Dr. Layton about possible getting the bumper adjusted so that it isn't so tight. Pt reports that she might keep the PEG tube and is waiting until tomorrow to make a decision about going through with PEG removal. Pt reports she recieved complimentary enteral supplies on Saturday with enough formula last her until Saturday. [facility] is suppose to be sending her a full 1 month supply of formula tomorrow. Pt reports she didn't get gauze for around her PEG tube and she didn't get a backpack for her feeding tube pump. KATHERINE called [facility] and spoke with Silvia. Silvia states that they provide gauze for around the PEG tube complimentary since insurance doesn't cover for that but the patient needs to tell [facility] that she needs gauze prior to them sending formula. Silvia also reports that insurance doesn't cover the cost for a backpack for the patient's Infinity pump but they could send one complimentary. KATHERINE will call and update [facility] if patient decides to keep her PEG tube and not go through with surgery prior to having them ship the backpack out. KATHERINE called Clare and updated her about information from [facility]. Pt reports that she has been using the feeding tube pump. States that she lost her paper with instructions for her tube feeding rate so she decided to start it at 100mL/hr. Pt later found her instruction paper and realized that she was suppose to start it at 10mL/hr (Per RDN note was suppose to start at 20mL/hr). Patient has been running the pump for 10 hours a day which gets her 4 cartons of formula. Patient reports tolerating the formula well and she has not had emesis. Does report some nausea but not to the point that she feels she will have emesis. Also states that she can't sit up at a 30 degree angle while sleeping because she normally sleeps on her side. Pt asked if she can continue current rate of formula. RDN ok with continuing at 100mL/hr x10 hours since she is tolerating it well. DARRELN will follow-up with patient to schedule an outpatient follow-up appointment possibly next week. Patient agreeable with this plan. Fátima Zamora RDN, IVONNE Original Note: 06/07/25: KATHERINE reviewed patient's chart and phone conversations with [facility]. Noted that patient called GI and left a voicemail on 06/04 - Pt LM that [facility] is waiting on our form of medical necessity. Form was faxed 06.02.25 and re-faxed this morning. Attempted to contact pt, no answer, LM to return call to our office. Noted plan for patient to have PEG tube removed on 06/09/25. KATHERINE called GI this morning and spoke with Shawna to confirm that patient is getting her PEG removed and nothing else is replacing the PEG tube at this time. KATHERINE also informed Shawna that [facility] has all the documentation needed from Dr. Layton for the patient to get her enteral supplies but Sejalcarly was waiting on paperwork that needed to be signed by Clare to release enteral supplies to her. KATHERINE is unsure why patient is still trying to get enteral nutrition supplies when her PEG tube is being removed. Fátima Zamora RDN, IVONNE
== END 2025-06-13 23:59 ==
LOC: NS 14:00
PROVIDERS: PCP Physician Assistant; Referring Provider Internal Medicine Gastroenterology; Visit Provider Internal Medicine Gastroenterology
DX: Z71.3 Dietary counseling and surveillance (principal); Z93.1 Gastrostomy status
CPT/HCPCS: 97802; 97803

== ENCOUNTER 2025-05-26 14:14 | Day surgery (SDC) | payer MEDICAID, SELFPAY ==
--- NOTE | 2025-05-25 15:19 | PAT.ANESEVAL ---
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 When Was Last Pacemaker Check QUESTION #4 FULL TEXT: You/Your Family Experience fever (hyperthermia) with Anesthesia Last Oral Intake Last Oral intake: Last Oral Intake NPO since Meds taken in AM with sips of water? Meds patient instructed to take am of surgery PONV PONV - lumber sorter machine: PONV - lumber sorter machine Female Yes 05/25/25 15:10 HX of Motion Sickness Yes 05/25/25 15:10 HX of N/V After Surgery Yes 05/25/25 15:10 Non-Smoker Yes 05/25/25 15:10 Duration of Surgery greater No 05/25/25 15:10 than 60 minutes Number of Risk Factors 4 05/25/25 15:10 PONV Score Severe Risk 05/25/25 15:10 Height & Weight Height & Weight: Anesthesia: Height & Weight Height 5 ft 1 in 04/14/25 14:53 Respiratory Assessment Respiratory Assessment - lumber sorter machine: Respiratory Tract Infection Hx - lumber sorter machine Hx Respiratory Tract Infection No 05/25/25 15:10 STOP Sleep Apnea STOP Sleep Apnea - lumber sorter machine: STOP Sleep Apnea - lumber sorter machine Hx Hypertension No 05/25/25 15:10 Hx Sleep Apnea No 05/25/25 15:10 CPAP No 05/25/25 15:10 BIPAP Do you snore loudly (louder No 05/25/25 15:10 than talking or can be heard Do you often feel tired/ No 05/25/25 15:10 fatigued/ sleepy during daytime? Has anyone observed you stop No 05/25/25 15:10 breathing during sleep? STOP Results Negative 05/25/25 15:10 QUESTION #5 FULL TEXT : Do you snore loudly (louder than talking or can be heard through closed doors)? Tobacco Use History Tobacco Use History - lumber sorter machine: Tobacco Use History - lumber sorter machine Tobacco Use Smoking Status Never smoker 05/25/25 15:10 Hx Tobacco Use No 05/25/25 15:10 Years Smoking Packs Smoked per Day Smoking Cessation Date was within the last 15 years Hx Smoking Cessation Date Hx Smoking Cessation Counseling Hematologic Medial History Hematologic Hx - lumber sorter machine: Hematologic Medical Hx - rn clinical documentation Hx of Blood Transfusion No 05/25/25 15:10 Hx of Transfusion in last 3 No 05/25/25 15:10 Months Date of Last Transfusion (if within last 3 months) Ever experience any problems No 05/25/25 15:10 with transfusion(s)? Specify any problems Hx of Preganancy in last 3 No 05/25/25 15:10 Months Nurse Filling Out Transfusion [email or web address] 05/25/25 15:10 & Questions: Date: 05/25/25 05/25/25 15:10 Time: 15:12 05/25/25 15:10 Patient unable to answer at this time (ie. confused, unrespo /Reproduction History /Reproductive History - lumber sorter machine: /Reproductive Hx- lumber sorter machine Hx Now Gestational Age (in weeks): EDC: Hx Hx Para Hx Section SAB No 05/25/25 15:10 Does the father of the baby or his family experience fever w Father of the baby Malignant Hypertension history comment [facility] Medical History (Updated 05/25/25 @ 15:14 by Matthew Lua) Walker as ambulation aid Anemia CAP (community acquired pneumonia) Generalized weakness Hx of substance abuse Bipolar disorder Kidney stones GERD (gastroesophageal reflux disease) Non-smoker Easy bruising Dietary restriction Implantable loop recorder present Wears glasses Anxiety MRSA infection Substance abuse History of steroid therapy Diabetes Injury of head and neck History of IBS Gastric reflux Neuropathy delivery delivered Arthritis Prolonged QT interval PCOS (polycystic ovarian syndrome) Factor V Leiden Anxiety Depression Pulmonary embolism DVT (deep venous thrombosis) TIA (transient ischemic attack) Ovarian cyst Home Medications Medication Instructions Recorded Last Taken Type epinephrine 0.3 mg/0.3 mL 0.3 mg (0.3 mL) IM Q5-15M PRN 10/05/24 Unknown Rx injection, auto-injector (EpiPen anaphylaxis #2 ea 2-Scout) albuterol sulfate 90 mcg/actuation 2 puff inhalation Q6H PRN 11/19/24 Unknown Rx aerosol inhaler shortness of breath or wheezing #8.5 grams sumatriptan succinate 6 mg/0.5 mL 6 mg subcut Q12H PRN MIGRAINE 12/11/24 Unknown History subcutaneous pen injector zolpidem 12.5 mg tablet,extended 12.5 mg PO QHS PRN insomnia 12/18/24 03/28/25 History release,multiphase (Ambien CR) famotidine 20 mg tablet 20 mg PO DAILY 03/19/25 03/28/25 History gabapentin 400 mg capsule 400 mg PO TID #270 caps 03/23/25 03/29/25 Rx linaclotide 290 mcg capsule 290 mcg PO QDAY #90 caps 03/26/25 03/26/25 Rx (Linzess) potassium chloride 20 mEq oral 20 meq PO BID #100 ea 04/15/25 Unknown Rx packet pantoprazole 40 mg tablet,delayed 40 mg PO DAILY #90 TABLETS 04/20/25 Unknown Rx release blood-glucose sensor (Dexcom G7 #1 ea 04/23/25 Unknown Rx Sensor device) blood-glucose,fermenter,cont #1 ea 04/23/25 Unknown Rx (Dexcom G7 Corporate Development Officer) blood sugar diagnostic (OneTouch #100 ea 04/27/25 Unknown Rx Verio test strips) hyoscyamine sulfate 0.125 mg tablet 0.125 mg PO BID-QID PRN dyspepsia 04/27/25 Unknown Rx #60 tabs lancets 30 gauge (OneTouch #200 ea 04/27/25 Unknown Rx UltraSoft 2 Lancet) sumatriptan succinate 100 mg tablet See Rx Instructions PO .COMPLEX 04/27/25 Unknown Rx #12 tabs ergocalciferol (vitamin D2) 1,250 1,250 mcg PO QWEEK #1 cap 05/12/25 Unknown Rx mcg (50,000 unit) capsule (Vitamin D2) folic acid 1 mg tablet 1 mg PO QDAY #30 tabs 05/12/25 Unknown Rx magnesium oxide 400 mg PO BID #60 tabs 05/12/25 Unknown Rx promethazine 25 mg rectal 25 mg VT Q6H PRN nausea and 05/12/25 Unknown Rx suppository vomiting #12 ea spironolactone 50 mg tablet 50 mg PO BID #60 tabs 05/12/25 Unknown Rx torsemide 20 mg tablet 20 mg PO QDAY #30 tabs 05/12/25 Unknown Rx indomethacin 50 mg capsule 50 mg PO TID PRN pain 05/17/25 Unknown History lorazepam 0.5 mg tablet (Ativan) 0.5 mg PO QDAY 05/17/25 Unknown History meclizine 25 mg tablet 25 mg PO BID PRN dizziness 05/17/25 Unknown History tizanidine 4 mg capsule 4 mg PO TID PRN muscle spasticity 05/17/25 Unknown History docusate sodium 100 mg capsule 100 mg PO DAILY PRN for 05/18/25 Unknown Rx constipation #30 caps Allergy/AdvReac Type Severity Reaction Status Date / Time bee venom protein (honey Allergy Severe Anaphylaxis Verified 05/25/25 15:05 bee) (bee sting) ziprasidone (From Geodon) Allergy Severe facial Verified 05/25/25 15:05 swelling ciprofloxacin (From Cipro) Allergy Intermediate Angioedema Verified 05/25/25 15:05 levofloxacin (From Levaquin) Allergy Intermediate Angioedema Verified 05/25/25 15:05 adhesive tape Allergy Mild Rash Verified 05/25/25 15:05 latex Allergy Mild Rash Verified 05/25/25 15:05 Iodinated Contrast Media Allergy Hives Verified 05/25/25 15:05 ondansetron (From Zofran) Allergy Hives Verified 05/25/25 15:05 propranolol Allergy Angioedema Verified 05/25/25 15:05 midazolam (From Versed) AdvReac Severe Other Verified 05/25/25 15:04 haloperidol (From Haldol) AdvReac Other Verified 05/25/25 15:04 metoclopramide (From Reglan) AdvReac Other Verified 05/25/25 15:04 Family History Father Alcoholism Hypertension Thyroid disorder Mother Anxiety Autoimmune disorder Bleeding disorder Hypertension Mental disorder CVA (cerebral vascular accident) Suicide attempt Thyroid disorder Other Breast cancer Colon cancer Diabetes Heart disease Myocardial infarction Ovarian cancer Surgical History History of vascular access device Port-A-Cath in place H/O hernia repair H/O wisdom tooth extraction H/O oophorectomy Hx of cholecystectomy H/O tubal ligation Social History adopted: No household members: children and none number of children: 2 current occupational status: unemployed pets and animals: No sexually active: No Smoking Status: Never smoker alcohol intake: never substance use type: does not use caffeine: No frequency: 3-4 times per week do you feel safe at home: Yes Recommendation Anesthesia Recommendation Anesthesia recommendation: Anesthesia NOT approved Reason NOT optimized for anesthesia: 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 Has history of factor V leiden, previous PE. She has multiple complex medical problems and has left AMA multiple times. She needs to see a health consultant, at bare minimum, and receive clearance, prior to any anesthetic procedure.
[2025-05-26] VITALS (10 sets, daily range): BP systolic 98–120; BP diastolic 52–76; PULSE 97–104; RESP 14–18; TEMP 36.3–36.7; O2SAT 100; BMI 34.5
--- NOTE | 2025-05-26 10:26 | PAT.ANE_ITS ---
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 When Was Last Pacemaker Check QUESTION #4 FULL TEXT: You/Your Family Experience fever (hyperthermia) with Anesthesia Last Oral Intake Last Oral intake: Last Oral Intake NPO since Meds taken in AM with sips of water? Meds patient instructed to take am of surgery PONV PONV - oracle technical architect: PONV - oracle technical architect Female Yes 05/25/25 15:10 HX of Motion Sickness Yes 05/25/25 15:10 HX of N/V After Surgery Yes 05/25/25 15:10 Non-Smoker Yes 05/25/25 15:10 Duration of Surgery greater No 05/25/25 15:10 than 60 minutes Number of Risk Factors 4 05/25/25 15:10 PONV Score Severe Risk 05/25/25 15:10 Height & Weight Height & Weight: Anesthesia: Height & Weight Height 5 ft 1 in 05/24/25 14:40 Respiratory Assessment Respiratory Assessment - oracle technical architect: Respiratory Tract Infection Hx - oracle technical architect Hx Respiratory Tract Infection No 05/25/25 15:10 STOP Sleep Apnea STOP Sleep Apnea - oracle technical architect: STOP Sleep Apnea - oracle technical architect Hx Hypertension No 05/25/25 15:10 Hx Sleep Apnea No 05/25/25 15:10 CPAP No 05/25/25 15:10 BIPAP Do you snore loudly (louder No 05/25/25 15:10 than talking or can be heard Do you often feel tired/ No 05/25/25 15:10 fatigued/ sleepy during daytime? Has anyone observed you stop No 05/25/25 15:10 breathing during sleep? STOP Results Negative 05/25/25 15:10 QUESTION #5 FULL TEXT : Do you snore loudly (louder than talking or can be heard through closed doors)? 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 Specify any problems Hx of Preganancy in last 3 No 05/25/25 15:10 Months Nurse Filling Out Transfusion [email or web address] 05/25/25 15:10 & Questions: Date: 05/25/25 05/25/25 15:10 Time: 15:12 05/25/25 15:10 Patient unable to answer at this time (ie. confused, unrespo /Reproduction History /Reproductive History - oracle technical architect: /Reproductive Hx- oracle technical architect Hx Now Gestational Age (in weeks): EDC: Hx Hx Para Hx Section SAB No 05/25/25 15:10 Does the father of the baby or his family experience fever w Father of the baby Malignant Hypertension history comment [facility] Medical History (Updated 05/25/25 @ 15:14 by Matthew Lua) Walker as ambulation aid Anemia CAP (community acquired pneumonia) Generalized weakness Hx of substance abuse Bipolar disorder Kidney stones GERD (gastroesophageal reflux disease) Non-smoker Easy bruising Dietary restriction Implantable loop recorder present Wears glasses Anxiety MRSA infection Substance abuse History of steroid therapy Diabetes Injury of head and neck History of IBS Gastric reflux Neuropathy delivery delivered Arthritis Prolonged QT interval PCOS (polycystic ovarian syndrome) Factor V Leiden Anxiety Depression Pulmonary embolism DVT (deep venous thrombosis) TIA (transient ischemic attack) Ovarian cyst Home Medications Medication Instructions Recorded Last Taken Type epinephrine 0.3 mg/0.3 mL 0.3 mg (0.3 mL) IM Q5-15M HI N 10/05/24 Unknown Rx injection, auto-injector (EpiPen anaphylaxis #2 ea 2-Scout) albuterol sulfate 90 mcg/actuation 2 puff inhalation Q 6H PRN 05/08/25 Unknown Rx aerosol inhaler shortness of breath or wheez ing #8.5 grams sumatriptan succinate 6 mg/0.5 mL 6 mg subcut Q12H PRN MIGRAINE 12/11/24 Unknown History subcutaneous pen injector zolpidem 12.5 mg tablet,extended 12.5 mg PO QHS PRN in somnia 12/18/24 03/28/25 History release,multiphase (Ambien CR) famotidine 20 mg tablet 20 mg PO DAILY 03/19/2503/15 History gabapentin 400 mg capsule 400 mg PO TID #270 caps 04/0803/29/25 Rx linaclotide 290 mcg capsule 290 mcg PO QDAY #90 caps 0 03/26/25 03/26/25 Rx (Linzess) potassium chloride 20 mEq oral 20 meq PO BID #100 ea 1 Unknown Rx packet pantoprazole 40 mg tablet,delayed 40 mg PO DAILY #90 T ABLETS 04/20/25 Unknown Rx release blood-glucose sensor (Dexcom G7 #1 ea 04/23/25 Unknown Rx Sensor device) blood-glucose,linoleum layer helper,cont #1 ea 04/23/25 Unknown Rx (Dexcom G7 Pharmaceutical Worker) blood sugar diagnostic (OneTouch #100 ea 04/27/25 Unkn own Rx Verio test strips) hyoscyamine sulfate 0.125 mg tablet 0.125 mg PO BID-QI D PRN dyspepsia 04/27/25 Unknown Rx #60 tabs lancets 30 gauge (OneTouch #200 ea 04/27/25 Unknown Rx UltraSoft 2 Lancet) sumatriptan succinate 100 mg tablet See Rx Instruction s PO .COMPLEX 04/27/25 Unknown Rx #12 tabs ergocalciferol (vitamin D2) 1,250 1,250 mcg PO QWEEK # 1 cap 05/12/25 Unknown Rx mcg (50,000 unit) capsule (Vitamin D2) folic acid 1 mg tablet 1 mg PO QDAY #30 tabs Unknown Rx magnesium oxide 400 mg PO BID #60 tabs 05/12 Unknown Rx promethazine 25 mg rectal 25 mg HI Q6H PRN nausea and 05/12/25 Unknown Rx suppository vomiting #12 ea spironolactone 50 mg tablet 50 mg PO BID #60 tabs 04/15 04/08 Unknown Rx torsemide 20 mg tablet 20 mg PO QDAY #30 tabs 05/12 Unknown Rx indomethacin 50 mg capsule 50 mg PO TID PRN pain 05/17 Unknown History lorazepam 0.5 mg tablet (Ativan) 0.5 mg PO QDAY Unknown History meclizine 25 mg tablet 25 mg PO BID PRN dizziness 1 07/17/24 Unknown History tizanidine 4 mg capsule 4 mg PO TID PRN muscle spast icity 05/17/25 Unknown Hist ory docusate sodium 100 mg capsule 100 mg PO DAILY PRN for 05/18/25 Unknown Rx constipation #30 caps Allergy/AdvReac Type Severity Reaction Status Date / Time bee venom protein (honey Allergy Severe Anaphylaxis Verified 05/25/25 15:05 bee) (bee sting) ziprasidone (From Geodon) Allergy Severe facial Verified 05/25/25 15:05 swelling ciprofloxacin (From Cipro) Allergy Intermediate Angioedema Verified 05/25/25 15:05 levofloxacin (From Levaquin) Allergy Intermediate Angioedema Verified 05/25/25 15:05 adhesive tape Allergy Mild Rash Verified 05/25/25 15:05 latex Allergy Mild Rash Verified 05/25/25 15:05 Iodinated Contrast Media Allergy Hives Verified 05/25/25 15:05 ondansetron (From Zofran) Allergy Hives Verified 05/25/25 15:05 propranolol Allergy Angioedema Verified 05/25/25 15:05 midazolam (From Versed) AdvReac Severe Other Verified 05/25/25 15:04 haloperidol (From Haldol) AdvReac Other Verified 05/25/25 15:04 metoclopramide (From Reglan) AdvReac Other Verified 05/25/25 15:04 Family History Father Alcoholism Hypertension Thyroid disorder Mother Anxiety Autoimmune disorder Bleeding disorder Hypertension Mental disorder CVA (cerebral vascular accident) Suicide attempt Thyroid disorder Other Breast cancer Colon cancer Diabetes Heart disease Myocardial infarction Ovarian cancer Surgical History History of vascular access device Port-A-Cath in place H/O hernia repair H/O wisdom tooth extraction H/O oophorectomy Hx of cholecystectomy H/O tubal ligation Social History adopted: No household members: children and none number of children: 2 current occupational status: unemployed pets and animals: No sexually active: No Smoking Status: Never smoker alcohol intake: never substance use type: does not use caffeine: No frequency: 3-4 times per week do you feel safe at home: Yes Audit: Pertinent Findings Pertinent Findings EKG Perinent findings: 05/19/25: NSR, borderline T abn, ant lead Echo (EF%) pertinent findings: 04/2025: EF 56%, left pleural effusion, but otherwise no ABN Recommendation Anesthesia Recommendation Anesthesia recommendation: OPTIMIZED for anesthesia
--- NOTE | 2025-05-26 14:34 | PCM.HP.STD ---
HPI - General General Date of Admission: 05/26/25 Date of Service: 05/26/25 HPI Narrative HPI HPI Details: ERIN TORRES, is a 35 F who presents to the office today for hospital follow up. She has a past medical history of a history of migraines, bipolar disorder, GERD, and substance abuse who presents with new-onset anemia, increasing weakness, and worsening anasarca. Chief Complaints: Significant generalized weakness and fatigue, anasarca, inability to tolerate oral intake, pain, and want for a PEG tube for nutritional support. History of Present Illness (HPI): Anemia/Weakness: Symptoms began gradually 3-4 months ago, becoming debilitating and impacting daily activities. Associated symptoms include lightheadedness upon standing, palpitations, and shortness of breath with mild exertion. Noticed pale skin over several months. Denies significant blood loss (no heavy menses, black/tarry stools, or rectal bleeding). Denies injury or recent surgery. Gastrointestinal (GI): Reports constant, cramping abdominal pain rated 6/10, exacerbated by eating and not relieved by antacids. Reports decreased appetite and early satiety (full after a few bites). Denies bowel movements for 3 days but passing flatus. Denies fever, chills, or bloody stools. Recent Events: Patient was recently discharged from [facility]. Has developed worsening anasarca, decreased albumin, and significant weight loss. Attempted Dobbhoff tube placement unsuccessfully. [facility] hospitalization 03.19.25 - 03.23.25 presents with fall, "spinning-sensation" - GI consulted for anemia and abnormal imaging KUB .12.06 Gas-filled distended small bowel loops. abd/pelvis CT 03.19.25 Small bowel dilatation without transition point to decreased caliber. Findings could represent enteritis or small bowel ileus in the proper clinical setting. There is questionable mild hyperenhancement in the region of the terminal ileum on image 96. The possibility of inflammatory bowel disease could also be raised EGD 03.22.25 Normal esophagus. Bile gastritis. Biopsied. Erythematous duodenopathy. Biopsied. [facility] ED 03.29.25 fall *BGI established 05.17.25 pt presents for evaluation for PEG tube placement. Pt reports that she was in [facility] from 05.01.25 - 05.10.25. Pt reports that since January has been having profuse vomiting and nausea. Pt states that while at [facility] they told her that she is severely malnourished and will need an NG or PEG tube. Was also told she has anasarca. Had bone marrow and kidney biopsies done as well. Nutrition Referral Z93.1 - Gastrostomy status ] [facility] Medical History Walker as ambulation aid Anemia CAP (community acquired pneumonia) Generalized weakness Hx of substance abuse Bipolar disorder Kidney stones GERD (gastroesophageal reflux disease) Non-smoker Easy bruising Dietary restriction Implantable loop recorder present Wears glasses Anxiety MRSA infection Substance abuse History of steroid therapy Diabetes Injury of head and neck History of IBS Gastric reflux Neuropathy delivery delivered Arthritis Prolonged QT interval PCOS (polycystic ovarian syndrome) Factor V Leiden Anxiety Depression Pulmonary embolism DVT (deep venous thrombosis) TIA (transient ischemic attack) Ovarian cyst Home Medications Medication Instructions Recorded Last Taken Type epinephrine 0.3 mg/0.3 mL 0.3 mg (0.3 mL) IM Q5-15M PRN 10/05/24 Unknown Rx injection, auto-injector (EpiPen anaphylaxis #2 ea 2-Scout) albuterol sulfate 90 mcg/actuation 2 puff inhalation Q6H PRN 11/19/24 Unknown Rx aerosol inhaler shortness of breath or wheezing #8.5 grams sumatriptan succinate 6 mg/0.5 mL 6 mg subcut Q12H PRN MIGRAINE 12/11/24 Unknown History subcutaneous pen injector zolpidem 12.5 mg tablet,extended 12.5 mg PO QHS PRN insomnia 12/18/24 03/28/25 History release,multiphase (Ambien CR) famotidine 20 mg tablet 20 mg PO DAILY 03/19/25 03/28/25 History gabapentin 400 mg capsule 400 mg PO TID #270 caps 03/23/25 03/29/25 Rx linaclotide 290 mcg capsule 290 mcg PO QDAY #90 caps 03/26/25 03/26/25 Rx (Linzess) potassium chloride 20 mEq oral 20 meq PO BID #100 ea 04/15/25 Unknown Rx packet pantoprazole 40 mg tablet,delayed 40 mg PO DAILY #90 TABLETS 04/20/25 Unknown Rx release blood-glucose sensor (Dexcom G7 #1 ea 04/23/25 Unknown Rx Sensor device) blood-glucose,manager of global,cont #1 ea 04/23/25 Unknown Rx (Dexcom G7 Lithographic Proofer Apprentice) blood sugar diagnostic (OneTouch #100 ea 04/27/25 Unknown Rx Verio test strips) hyoscyamine sulfate 0.125 mg tablet 0.125 mg PO BID-QID PRN dyspepsia 04/27/25 Unknown Rx #60 tabs lancets 30 gauge (OneTouch #200 ea 04/27/25 Unknown Rx UltraSoft 2 Lancet) sumatriptan succinate 100 mg tablet See Rx Instructions PO .COMPLEX 04/27/25 Unknown Rx #12 tabs ergocalciferol (vitamin D2) 1,250 1,250 mcg PO QWEEK #1 cap 05/12/25 Unknown Rx mcg (50,000 unit) capsule (Vitamin D2) folic acid 1 mg tablet 1 mg PO QDAY #30 tabs 05/12/25 Unknown Rx magnesium oxide 400 mg PO BID #60 tabs 05/12/25 Unknown Rx promethazine 25 mg rectal 25 mg [place] Q6H PRN nausea and 05/12/25 Unknown Rx suppository vomiting #12 ea spironolactone 50 mg tablet 50 mg PO BID #60 tabs 05/12/25 Unknown Rx torsemide 20 mg tablet 20 mg PO QDAY #30 tabs 05/12/25 Unknown Rx indomethacin 50 mg capsule 50 mg PO TID PRN pain 05/17/25 Unknown History lorazepam 0.5 mg tablet (Ativan) 0.5 mg PO QDAY 05/17/25 Unknown History meclizine 25 mg tablet 25 mg PO BID PRN dizziness 05/17/25 Unknown History tizanidine 4 mg capsule 4 mg PO TID PRN muscle spasticity 05/17/25 Unknown History docusate sodium 100 mg capsule 100 mg PO DAILY PRN for 05/18/25 Unknown Rx constipation #30 caps Allergy/AdvReac Type Severity Reaction Status Date / Time bee venom protein (honey Allergy Severe Anaphylaxis Verified 05/26/25 12:51 bee) (bee sting) ziprasidone (From Geodon) Allergy Severe facial Verified 05/26/25 12:51 swelling ciprofloxacin (From Cipro) Allergy Intermediate Angioedema Verified 05/26/25 12:51 levofloxacin (From Levaquin) Allergy Intermediate Angioedema Verified 05/26/25 12:51 adhesive tape Allergy Mild Rash Verified 05/26/25 12:51 latex Allergy Mild Rash Verified 05/26/25 12:51 Iodinated Contrast Media Allergy Hives Verified 05/26/25 12:51 ondansetron (From Zofran) Allergy Hives Verified 05/26/25 12:51 propranolol Allergy Angioedema Verified 05/26/25 12:51 midazolam (From Versed) AdvReac Severe Other Verified 05/26/25 12:51 haloperidol (From Haldol) AdvReac Other Verified 05/26/25 12:51 metoclopramide (From Reglan) AdvReac Other Verified 05/26/25 12:51 Family History Father Alcoholism Hypertension Thyroid disorder Mother Anxiety Autoimmune disorder Bleeding disorder Hypertension Mental disorder CVA (cerebral vascular accident) Suicide attempt Thyroid disorder Other Breast cancer Colon cancer Diabetes Heart disease Myocardial infarction Ovarian cancer Surgical History History of vascular access device Port-A-Cath in place H/O hernia repair H/O wisdom tooth extraction H/O oophorectomy Hx of cholecystectomy H/O tubal ligation Social History adopted: No household members: children and none number of children: 2 current occupational status: unemployed pets and animals: No sexually active: No Smoking Status: Never smoker alcohol intake: never substance use type: does not use caffeine: No frequency: 3-4 times per week do you feel safe at home: Yes ROS Constitutional Constitutional: Denies fatigue, fever(s), poor appetite, weight gain or weight loss Gastrointestinal Gastrointestinal: Denies belching, bloating, change in bowel habits, change in stool character, chewing difficulty, coffee ground emesis, constipation, cramping, diarrhea, dyspepsia, dysphagia, early satiety, excessive flatus, fecal incontinence, heartburn, hematemesis, hematochezia, hemorrhoids, loose stools, melena, nausea, odynophagia, rectal bleeding, tenesmus, vomiting or weight changes Physical Exam Const alert, oriented x3, no apparent distress and healthy appearing General Appearance: cooperative GI normal to inspection, nondistended, normoactive bowel sounds, soft to palpation, non-tender and non-distended Percussion: normal to percussion Rectal Exam: deferred Assessment & Plan Assessment/Plan (1) Abdominal pain: (2) Malnutrition: (3) Anemia: (4) Nausea and vomiting: QUALIFIERS: Vomiting type: unspecified Qualified Code(s): R11.2 - Nausea with vomiting, unspecified PLAN: Assessment and Plan Assessment and Plan (1) Iron deficiency anemia: Status: Acute Qualifiers: Iron deficiency anemia type: unspecified iron deficiency Qualified Code(s): D50.9 - Iron deficiency anemia, unspecified (2) Malnutrition: Status: Acute Qualifiers: Malnutrition type: unspecified type Qualified Code(s): E46 - Unspecified protein-calorie malnutrition (3) Abnormal CT of the abdomen: Status: Acute (4) Anemia: Status: Acute (5) Nausea and vomiting: Status: Acute Qualifiers: Vomiting type: unspecified Qualified Code(s): R11.2 - Nausea with vomiting, unspecified Plan: The patient is a 35-year-old female with multiple comorbidities presenting with severe, debilitating anemia and worsening anasarca. The clinical picture is complex, with evidence of protein-losing enteropathy and likely an inflammatory process in the small bowel, strongly suggested to be secondary to chronic NSAID use. Anemia (likely severe): Etiology is likely multifactorial, including chronic inflammation (NSAID-induced enteropathy) and potentially a direct effect on the bone marrow, though workup is ongoing (bone marrow biopsy performed). 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 This is the likely cause of her edema and low albumin. NSAID-induced enteropathy: Supported by chronic ibuprofen/Indomethacin use, characteristic CT findings (enteritis, ileus, thickened bowel encarnacion), and GI symptoms (pain, early satiety). Malnutrition/Dehydration: Evident from weight loss, poor oral intake, and likely fluid shifts secondary to low albumin. Abdominal Pain: Likely secondary to the underlying enteritis/ileus. Other Comorbidities: Migraines, bipolar disorder, GERD, substance abuse history. Plan Nutrition: Discuss risks/benefits of PEG tube placement with the patient. Proceed with PEG tube placement for supplemental nutrition as requested by the patient and indicated for her malnutrition/protein-losing enteropathy. Once PEG tube is established, initiate a nutritional support plan via the PEG. Diagnostics: Review results of bone marrow and kidney biopsies when available to further evaluate anemia and protein-losing enteropathy etiologies. Proceed with colonoscopy prep (via the planned PEG tube) and subsequent colonoscopy to evaluate for GI source of anemia/protein loss and rule out other causes. Medical Management: Pain: Continue current pain management plan, re-evaluate as needed. NSAIDs: Strongly residential child care counselor patient to immediately and permanently cease all NSAID use (ibuprofen and Indomethacin) due to the likely causal role in her current critical illness. Provide alternative pain management for migraines. Orders: Referrals D/C Safety Score for UGIB Assessment Alek-Blatchford Bleeding Score (GBS): Stratifies upper GI bleeding patients who are "low-risk" and candidates for outpatient management. Score Interpretation: Score of 0: A GBS of 0 is a “Low Risk” GI bleed, and is highly sensitive (99.6% in a 2006 retrospective study) for predicting which patients did not require any “medical intervention”: blood transfusion, endoscopy, or surgery. This was confirmed in a 2009 [facility] study where patients with a score of 0 were actually discharged and had no GI bleeding mortality at 6 month followup Score above 0: A GBS greater than zero suggests a “High Risk” GI bleed that is likely to require “medical intervention”: transfusion, endoscopy, or surgery. A higher GBS also correlated with a higher likelihood of needing intervention Scores >/= 6 are associated with >50% risk of needing intervention D/C Safety Score for LGIB Assessment Assessment Tool: Readmission and adverse event risk in patients with acute lower GI bleeding. Score Interpretation: Probability Percentage of safe discharge (absence of rebleeding, blood transfusion, therapeutic intervention, 28 day readmission, or ) Score of 8 or below: Consider discharge, with appropriate precautions. Score of 9 or above: Discharge NOT recommended. Consider admission with further workup and resuscitation as necessary.
[2025-05-26] MEDS: Lactated Ringers 1,000 ML 15 ML IV (15:07)
--- NOTE | 2025-05-26 15:23 | PCM.PRE.AN2 ---
ASA Classification* ASA Classification ASA Classification: 3 (T2DM, Asthma, bipolar, migraines. ALLERGIC TO VERSED AND ZOFRAN) Assessment & Plan Anesthesia* Anesthesia Assessment Anesthesia Assessment: Discussed sedation and/or anesthesia options, risks, benefits, and alternatives with patient/parents/legal guardian/POA. Questions invited. The patient/parents/legal guardian/POA seems to understand and agrees to proceed with anesthesia plan. Reviewed the physical assessment, medical history, allergy history and patient home medications list prior to surgery/procedure/anesthetic and documented any changes. Performed airway and anesthesia risk assessments. Anesthesia Type Anesthesia Type: MAC History Source History Obtained from:: Patient and Chart Anesthesia Focused Assessment* Temperature: 98.1 F Pulse Rate: 104 Blood Pressure: 111/68 Respiratory Rate: 16 Pulse Ox: 100 Oxygen Delivery Method: Room Air Airway Assessment Mouth opens: >3 cm Mallampati Score: III Neck Range of motion (ROM): Full ROM Labs Anesthesia Preop lab: CBC WBC, (4.4-11.0) 3.7 K/mm3 L 05/21/25, : RBC, (4.2-5.4) 2.83 M/mm3 L 05/21/25, 11:54 Hgb, (12.0-15.0) 8.1 g/dL L 05/21/25, : Hct, (37-47) 25.0 % L 05/21/25, 11:54 Plt Count, (150-450) 260 K/mm3 05/21/25, 11:54 CHEMISTRY Potassium, (3.3-5.1) 4.5 mmol/L 05/21/25, : Sodium, (133-145) 141 mmol/L 05/21/25, 11:54 Magnesium, (1.5-2.2) 2.1 mg/dL 03/21/25, 08:47 Phosphorus, (2.7-4.5) 3.3 mg/dL 03/21/25, 08:47 BUN, (4-19) 12 mg/dL 05/21/25, 11:54 Creatinine, (0.70-1.20) 0.85 mg/dL 05/21/25, : Glucose, (70-99) 125 mg/dL H 05/21/25, 11:54 POC Glucose, (74-106) 63 mg/dL L 03/22/25, 06:01 TSH, (0.300-4.200) 3.150 uIU/mL 04/14/25, 13:56 COAG PT, (11.7-14.9) 18.9 SECONDS H 03/22/25, 03:53 Urine Test Negative Negative 03/19/25, 14:38 Pre-Assessment Diagnosis/Proposed Procedure Planned Operative Procedure(s): EGD WITH PEG TUBE Anesthesia History Anesthesia History - digital media intern: Anesthesia History - digital media intern Hx Hospitalization Yes: INFECTED VASCULAR PORT 05/25/25 15:10 09/2024 Any Problems With Anesthesia No 05/25/25 15:10 Cholinesterase deficiency No 05/25/25 15:10 You/Your Family Experience No 05/25/25 15:10 fever (hyperthermia) with Relationship Recent Exposure to Contagious No 03/21/25 22:43 Disease Does patient have nerve No 05/25/25 15:10 stimulator Patient instructed to have device shut off --Does patient have Pacemaker No 05/26/25 14:37 or ICD? When Was Last Pacemaker Check QUESTION #4 FULL TEXT: You/Your Family Experience fever (hyperthermia) with Anesthesia Last Oral Intake Last Oral intake: Last Oral Intake NPO since 19:30 05/26/25 14:37 Meds taken in AM with sips of No 05/26/25 14:37 water? Meds patient instructed to take am of surgery PONV PONV - digital media intern: PONV - digital media intern Female Yes 05/25/25 15:10 HX of Motion Sickness Yes 05/25/25 15:10 HX of N/V After Surgery Yes 05/25/25 15:10 Non-Smoker Yes 05/25/25 15:10 Duration of Surgery greater No 05/25/25 15:10 than 60 minutes Number of Risk Factors 4 05/25/25 15:10 PONV Score Severe Risk 05/25/25 15:10 Height & Weight Height & Weight: Anesthesia: Height & Weight Height 5 ft 1 in 05/26/25 14:37 Weight: 83 kg 05/26/25 14:37 Body Mass Index (BMI) 34.5 05/26/25 14:37 Respiratory Assessment Respiratory Assessment - digital media intern: Respiratory Tract Infection Hx - digital media intern Hx Respiratory Tract Infection No 05/25/25 15:10 STOP Sleep Apnea STOP Sleep Apnea - digital media intern: STOP Sleep Apnea - digital media intern Hx Hypertension No 05/25/25 15:10 Hx Sleep Apnea No 05/25/25 15:10 CPAP No 05/25/25 15:10 BIPAP Do you snore loudly (louder No 05/25/25 15:10 than talking or can be heard Do you often feel tired/ No 05/25/25 15:10 fatigued/ sleepy during daytime? Has anyone observed you stop No 05/25/25 15:10 breathing during sleep? STOP Results Negative 05/25/25 15:10 QUESTION #5 FULL TEXT : Do you snore loudly (louder than talking or can be heard through closed doors)? Tobacco Use History Tobacco Use History - digital media intern: Tobacco Use History - digital media intern Tobacco Use Smoking Status Never smoker 05/25/25 15:10 Hx Tobacco Use No 05/25/25 15:10 Years Smoking Packs Smoked per Day Smoking Cessation Date was within the last 15 years Hx Smoking Cessation Date Hx Smoking Cessation Counseling Hematologic Medial History Hematologic Hx - digital media intern: Hematologic Medical Hx - piano mover Hx of Blood Transfusion No 05/25/25 15:10 Hx of Transfusion in last 3 No 05/25/25 15:10 Months Date of Last Transfusion (if within last 3 months) Ever experience any problems No 05/25/25 15:10 with transfusion(s)? Specify any problems Hx of Preganancy in last 3 No 05/25/25 15:10 Months Nurse Filling Out Transfusion [email or web address] 05/25/25 15:10 & Questions: Date: 05/25/25 05/25/25 15:10 Time: 15:12 05/25/25 15:10 Patient unable to answer at this time (ie. confused, unrespo /Reproduction History /Reproductive History - digital media intern: /Reproductive Hx- digital media intern Hx Now Gestational Age (in weeks): EDC: Hx Hx Para Hx Section SAB No 05/25/25 15:10 Does the father of the baby or his family experience fever w Father of the baby Malignant Hypertension history comment Active Medications Active Medications: Current Medications Generic Name Dose Route Start Last Admin Trade Name Freq PRN Reason Stop Dose Admin Lactated Ringer's 1,000 mls @ 15 mls/hr 05/26/25 15:15 05/26/25 15:07 IV 15 mls/hr .Q48H NIGEL Administration PFSH Medical History Walker as ambulation aid Anemia CAP (community acquired pneumonia) Generalized weakness Hx of substance abuse Bipolar disorder Kidney stones GERD (gastroesophageal reflux disease) Non-smoker Easy bruising Dietary restriction Implantable loop recorder present Wears glasses Anxiety MRSA infection Substance abuse History of steroid therapy Diabetes Injury of head and neck History of IBS Gastric reflux Neuropathy delivery delivered Arthritis Prolonged QT interval PCOS (polycystic ovarian syndrome) Factor V Leiden Anxiety Depression Pulmonary embolism DVT (deep venous thrombosis) TIA (transient ischemic attack) Ovarian cyst Home Medications Medication Instructions Recorded Last Taken Type epinephrine 0.3 mg/0.3 mL 0.3 mg (0.3 mL) IM Q5-15M PRN 10/05/24 Unknown Rx injection, auto-injector (EpiPen anaphylaxis #2 ea 2-Scout) albuterol sulfate 90 mcg/actuation 2 puff inhalation Q6H PRN 11/19/24 Unknown Rx aerosol inhaler shortness of breath or wheezing #8.5 grams sumatriptan succinate 6 mg/0.5 mL 6 mg subcut Q12H PRN MIGRAINE 12/11/24 Unknown History subcutaneous pen injector zolpidem 12.5 mg tablet,extended 12.5 mg PO QHS PRN insomnia 12/18/24 03/28/25 History release,multiphase (Ambien CR) famotidine 20 mg tablet 20 mg PO DAILY 03/19/25 03/28/25 History gabapentin 400 mg capsule 400 mg PO TID #270 caps 03/23/25 03/29/25 Rx linaclotide 290 mcg capsule 290 mcg PO QDAY #90 caps 03/26/25 03/26/25 Rx (Linzess) potassium chloride 20 mEq oral 20 meq PO BID #100 ea 04/15/25 Unknown Rx packet pantoprazole 40 mg tablet,delayed 40 mg PO DAILY #90 TABLETS 04/20/25 Unknown Rx release blood-glucose sensor (Dexcom G7 #1 ea 04/23/25 Unknown Rx Sensor device) blood-glucose,reel fed printer,cont #1 ea 04/23/25 Unknown Rx (Dexcom G7 Force Variation Equipment Tender) blood sugar diagnostic (OneTouch #100 ea 04/27/25 Unknown Rx Verio test strips) hyoscyamine sulfate 0.125 mg tablet 0.125 mg PO BID-QID PRN dyspepsia 04/27/25 Unknown Rx #60 tabs lancets 30 gauge (OneTouch #200 ea 04/27/25 Unknown Rx UltraSoft 2 Lancet) sumatriptan succinate 100 mg tablet See Rx Instructions PO .COMPLEX 04/27/25 Unknown Rx #12 tabs ergocalciferol (vitamin D2) 1,250 1,250 mcg PO QWEEK #1 cap 05/12/25 Unknown Rx mcg (50,000 unit) capsule (Vitamin D2) folic acid 1 mg tablet 1 mg PO QDAY #30 tabs 05/12/25 Unknown Rx magnesium oxide 400 mg PO BID #60 tabs 05/12/25 Unknown Rx promethazine 25 mg rectal 25 mg [place] Q6H PRN nausea and 05/12/25 Unknown Rx suppository vomiting #12 ea spironolactone 50 mg tablet 50 mg PO BID #60 tabs 05/12/25 Unknown Rx torsemide 20 mg tablet 20 mg PO QDAY #30 tabs 05/12/25 Unknown Rx indomethacin 50 mg capsule 50 mg PO TID PRN pain 05/17/25 Unknown History lorazepam 0.5 mg tablet (Ativan) 0.5 mg PO QDAY 05/17/25 Unknown History meclizine 25 mg tablet 25 mg PO BID PRN dizziness 05/17/25 Unknown History tizanidine 4 mg capsule 4 mg PO TID PRN muscle spasticity 05/17/25 Unknown History docusate sodium 100 mg capsule 100 mg PO DAILY PRN for 05/18/25 Unknown Rx constipation #30 caps Allergy/AdvReac Type Severity Reaction Status Date / Time bee venom protein (honey Allergy Severe Anaphylaxis Verified 05/26/25 14:38 bee) (bee sting) ziprasidone (From Geodon) Allergy Severe facial Verified 05/26/25 14:38 swelling ciprofloxacin (From Cipro) Allergy Intermediate Angioedema Verified 05/26/25 14:38 levofloxacin (From Levaquin) Allergy Intermediate Angioedema Verified 05/26/25 14:38 adhesive tape Allergy Mild Rash Verified 05/26/25 14:38 latex Allergy Mild Rash Verified 05/26/25 14:38 Iodinated Contrast Media Allergy Hives Verified 05/26/25 14:38 ondansetron (From Zofran) Allergy Hives Verified 05/26/25 14:38 propranolol Allergy Angioedema Verified 05/26/25 14:38 midazolam (From Versed) AdvReac Severe Other Verified 05/26/25 14:38 haloperidol (From Haldol) AdvReac Other Verified 05/26/25 14:38 metoclopramide (From Reglan) AdvReac Other Verified 05/26/25 14:38 Family History Father Alcoholism Hypertension Thyroid disorder Mother Anxiety Autoimmune disorder Bleeding disorder Hypertension Mental disorder CVA (cerebral vascular accident) Suicide attempt Thyroid disorder Other Breast cancer Colon cancer Diabetes Heart disease Myocardial infarction Ovarian cancer Surgical History History of vascular access device Port-A-Cath in place H/O hernia repair H/O wisdom tooth extraction H/O oophorectomy Hx of cholecystectomy H/O tubal ligation Social History adopted: No household members: children and none number of children: 2 current occupational status: unemployed pets and animals: No sexually active: No Smoking Status: Never smoker alcohol intake: never substance use type: does not use caffeine: No frequency: 3-4 times per week do you feel safe at home: Yes Review of Systems (Anesthesia) ROS Narrative System reviewed and no additional complaints, except as documented. Physical Exam Const alert, oriented x3 and average body habitus Resp normal respiratory effort, normal air movement and clear to auscultation bilaterally Cardio regular rate, regular rhythm and no murmurs; Negative for diaphoretic
--- NOTE | 2025-05-26 17:31 | OP.EGD_ITS ---
Patient Name: Clare Scott Procedure Date: 05/26/2025 4:26 PM Date of : 1990 Age: 35 Procedure: Upper GI endoscopy Indications: Place PEG because patient is unable to eat, Place PEG due to impaired swallowing Providers: Asif Layton DO Referring MD: MJ Fried Medicines: Monitored Anesthesia Care Patient Profile: This is a 35 year old female. Refer to note in patient chart for documentation of history and physical. Patient has symptoms of chronic abdominal cramping, chronic abdominal distention, chronic epigastric abdominal pain, chronic nausea, chronic regurgitation and chronic vomiting. Complications: No immediate complications. Procedure: Pre-Anesthesia Assessment: - Prior to the procedure, a History and Physical was performed, and patient medications and allergies were reviewed. The patient is competent. The risks and benefits of the procedure and the sedation options and risks were discussed with the patient. All questions were answered and informed consent was obtained. Patient identification and proposed procedure were verified by the physician in the pre-procedure area. Mental Status Examination: alert and oriented. Airway Examination: normal oropharyngeal airway and neck mobility. Respiratory Examination: clear to auscultation. CV Examination: normal. Prophylactic Antibiotics: The patient does not require prophylactic antibiotics. Prior Anticoagulants: The patient has taken no anticoagulant or antiplatelet agents except for NSAID medication. ASA Grade Assessment: II - A patient with mild systemic disease. After reviewing the risks and benefits, the patient was deemed in satisfactory condition to undergo the procedure. The anesthesia plan was to use monitored anesthesia care (MAC). Immediately prior to administration of medications, the patient was re-assessed for adequacy to receive sedatives. The heart rate, respiratory rate, oxygen saturations, blood pressure, adequacy of pulmonary ventilation, and response to care were monitored throughout the procedure. The physical status of the patient was re-assessed after the procedure. After obtaining informed consent, the endoscope was passed under direct vision. Throughout the procedure, the patient's blood pressure, pulse, and oxygen saturations were monitored continuously. The gastroscope was introduced through the mouth, and advanced to the second part of duodenum. The upper GI endoscopy was accomplished without difficulty. The patient tolerated the procedure well. Scope In: 4:45:03 PM Scope Out: 5:18:22 PM Total Procedure Duration Time 0 hours 33 minutes 19 seconds Findings: The examined esophagus was normal. No gross lesions were noted in the entire examined stomach. The patient was placed in the supine position for PEG placement. The stomach was insufflated to appose gastric and abdominal encarnacion. A site was located in the cardia with adequate transillumination for placement. The abdominal wall was marked and prepped in a sterile manner. The area was anesthetized with 1 mL of 0.5% lidocaine. The trocar needle was introduced through the abdominal wall and into the stomach under direct endoscopic view. A snare was introduced through the endoscope and opened in the gastric lumen. The guide wire was passed through the trocar and into the open snare. The snare was closed around the guide wire. The endoscope and snare were removed, pulling the wire out through the mouth. A skin incision was made at the site of needle insertion. The endoscopically removable 20 Fr EndoVive Safety gastrostomy tube was lubricated. The G-tube was tied to the guide wire and pulled through the mouth and into the stomach. The trocar needle was removed, and the gastrostomy tube was pulled out from the stomach through the skin. The external bumper was attached to the gastrostomy tube, and the tube was cut to remove the guide wire. The final position of the gastrostomy tube was confirmed by relook endoscopy, and skin marking noted to be 4 cm at the external bumper. The final tension and compression of the abdominal wall by the PEG tube and external bumper were checked and revealed that the bumper was loose and lightly touching the skin. The feeding tube was capped, and the tube site cleaned and dressed. No gross lesions were noted in the entire examined duodenum. Impression: - Normal esophagus. - No gross lesions in the entire stomach. - No gross lesions in the entire examined duodenum. - An endoscopically removable PEG placement was successfully completed. - No specimens collected. Recommendation: - Please follow the post-PEG recommendations including: Nutrition consult for formula and volume, external bolster 1 cm from abdominal wall, remove dressing after 2 weeks, may use PEG today for meds and water, may use PEG tomorrow for feedings and antibiotic ointment to site. - Continue present medications. Procedure Code(s): --- Professional --- 76897, Esophagogastroduodenoscopy, flexible, transoral; with directed placement of percutaneous gastrostomy tube CPT copyright 2021 [employer]. All rights reserved. The codes documented in this report are preliminary and upon manager nursing home review may be revised to meet current compliance requirements. Asif Layton DO 05/26/2025 5:31:01 PM This report has been signed electronically. Number of Addenda: 0 Note Initiated On: 05/26/2025 4:26 PM
--- NOTE | 2025-05-26 17:31 | OP.PROVAT_ITS ---
05/26/2025 MJ Fried [id number] [id number] Re : Upper GI endoscopy procedure for Clare Scott Dear Per Yip This procedure was performed on Monday, May 26, 2025. My impressions and recommendations are as follows: Impressions : - Normal esophagus. - No gross lesions in the entire stomach. - No gross lesions in the entire examined duodenum. - An endoscopically removable PEG placement was successfully completed. - No specimens collected. Recommendations : - Please follow the post-PEG recommendations including: Nutrition consult for formula and volume, external bolster 1 cm from abdominal wall, remove dressing after 2 weeks, may use PEG today for meds and water, may use PEG tomorrow for feedings and antibiotic ointment to site. - Continue present medications. My findings are described in the full procedure note, which is enclosed. If I can be of further assistance, please feel free to contact me at . Sincerely, Asif Layton, 05/26/2025 5:31:01 PM This report has been signed electronically.
--- NOTE | 2025-05-26 17:36 | PCM.POST.ANE ---
Anesthesia: Postop Eval I Current Vital Signs Temperature: 97.5 F Pulse Rate: 98 Blood Pressure: 108/67 Respiratory Rate: 14 Pulse Ox: 100 Oxygen Delivery Method: Room Air Assessment Airway patent: Yes Spontaneous unlabored respirations: Yes Mental status: Awake nausea: No Vomiting: No Anesthesia Complication: No Fluid Hydration Crystalloid volume administer (ml): 800 Total IV fluid infused: 800 Progress Note Anesthesia document: Postop Eval 1 completed: Yes
--- NOTE | 2025-05-26 17:50 | PCM.POSTANE2 ---
Anesthesia Postop Eval I Sum Postop Eval Completion status Anesthesia document: Postop Eval 1 completed: Yes Anesthesia Postop Eval I Summary Anesthesia Postop Eval I Summary: Anesthesia Postop Eval I: Assessment Summary Airway patent Yes 05/26/25 17:40 [email or web address] Spontaneous unlabored Yes 05/26/25 17:40 [email or web address] respirations Mental status Awake 05/26/25 17:40 [email or web address] nausea No 05/26/25 17:40 [email or web address] Vomiting No 05/26/25 17:40 [email or web address] Anesthesia Postop Eval I: Fluid Summary Crystalloid volume administer 800 05/26/25 17:40 [email or web address] (ml) Colloids volume administered ( ml) Blood Product volume administered (ml) Total IV fluid infused 800 05/26/25 17:40 [email or web address] Anesthesia Postop Eval I: Summary Notes Anesthesia Complication No 05/26/25 17:40 [email or web address] Anesthesia Complication Comment: Post-operative progress note Anesthesia: Postop Eval II Evaluation Mental status: Awake Pain Level: 0 nausea: No Vomiting: No Complications Anesthesia Complication: No
== END 2025-05-26 19:00 | disposition home or self-care (01) ==
LOC: EN 14:15 → AC 14:19
PROVIDERS: PCP Physician Assistant; Referring Provider Physician Assistant; Visit Provider Internal Medicine Gastroenterology
DX: Z46.59 Encounter for fitting and adjustment of other gastrointestinal appliance and device (principal); E11.9 Type 2 diabetes mellitus without complications; E46 Unspecified protein-calorie malnutrition; D50.9 Iron deficiency anemia, unspecified; R63.4 Abnormal weight loss; K21.9 Gastro-esophageal reflux disease without esophagitis
CPT/HCPCS: 43246; A4216

== ENCOUNTER 2025-05-29 09:53 | Observation (INO) | payer MEDICAID, SELFPAY ==
[2025-05-29] VITALS (57 sets, daily range): BP systolic 104–144; BP diastolic 46–114; PULSE 89–106; RESP 16–18; TEMP 36.6–36.9; O2SAT 83–100; BMI 36.5; BMI 35.6
--- NOTE | 2025-05-29 10:10 | CT_ITS ---
PROCEDURE: ABDOMEN/PELVIS W IV CONT ONLY 05/29/2025 REASON FOR EXAM: ABD PAIN, RECENT PEG TUB INSERTION TECHNIQUE: Procedure Code: [id number] Modality: CT Procedure: ABDOMEN/PELVIS W IV CONT ONLY Coronal and Sagittal reconstruction series were provided. CONTRAST: Isovue 370 VOLUME: 100 mL One or more dose reduction techniques were used (e.g., Automated exposure control, adjustment of the mA and/or kV according to patient size, use of iterative reconstruction technique. RADIATION DOSE SUMMARY: CTDlvol: 29.50 mGy DLP: 1259.42 mGycm COMPARISON: 03/19/2025 FINDINGS: Lung bases: Small free-flowing left pleural effusion with associated atelectasis. Right lung bases clear. Liver: Normal size. No mass. Gallbladder: Surgically absent. Spleen: Normal size. Pancreas: Normal size without evidence of mass surrounding inflammation or ductal dilation. Adrenals: Unremarkable Kidneys: No obstructive uropathy or suspicious solid renal lesion Bladder: Distends normally Reproductive Organs: Normal-appearing uterus, no suspicious adnexal mass, there is free fluid in the dependent pelvis Bowel: Peg tube noted in satisfactory position, no complications. Diffuse submucosal edema and thickening noted in multiple bowel loops along with fluid distended small bowel loops consistent with a diffuse enteritis. Retained stool noted in the colon. Appendix: Not seen Lymph nodes: No suspicious mesenteric or retroperitoneal adenopathy Vasculature: The abdominal aorta and IVC are normal. Peritoneum / Retroperitoneum: Diffuse induration of the subcutaneous fat consistent with anasarca or poor nutritional status. There is also diffuse induration of the mesenteric and retroperitoneal fat. Bones: Unremarkable CT/Abdomen/Pelvis W IV Cont ONLY IMPRESSION: Submucosal thickening and edema noted in multiple bowel loops consistent with d iffuse enteritis. Multiple nondistended fluid-filled small bowel loops consistent with ileus. There is associated reji ration of the mesenteric and retroperitoneal fat and free fluid throughout the mesentery and into the pelvis. This is suggestiv e of peritonitis. Peg tube noted in satisfactory position Diffuse induration of the subcutaneous fat suggests anasarca or could be a sign of poor nutritional status. No suspicious solid organ abnormalities Left pleural effusion with associated atelectasis Reading Location: [id number]
--- NOTE | 2025-05-29 10:14 | EX.ED.DYSGE1 ---
HPI History of Present Illness Chief Complaint: Abd Pain Narrative Narrative: Patient is a 35-year-old female past medical history of substance abuse, bipolar disorder, GERD, anemia, diabetes, IBS, neuropathy, PCOS, factor V Leiden, Raven, depression, DVT, TIA who presented to the emergency department with a chief complaint of abdominal pain. She states that she recently had a PEG tube inserted on Saturday by Dr. Layton and states that this was complicated and one of the general surgeons had to be called in to assist with the insertion as well. States that she had been doing well until recently she notes that she has had worsening pain and drainage from the area. States that she called Dr. Layton and he advised her to come here for further evaluation management. Patient notes that she can get CT with contrast however she just has to be premedicated first. [facility] Medical History Walker as ambulation aid CAP (community acquired pneumonia) Hx of substance abuse Bipolar disorder Kidney stones GERD (gastroesophageal reflux disease) Non-smoker Generalized weakness Anemia Easy bruising Dietary restriction Implantable loop recorder present Wears glasses Anxiety MRSA infection Substance abuse History of steroid therapy Diabetes Injury of head and neck History of IBS Gastric reflux Neuropathy delivery delivered Arthritis Prolonged QT interval PCOS (polycystic ovarian syndrome) Factor V Leiden Anxiety Depression Pulmonary embolism DVT (deep venous thrombosis) TIA (transient ischemic attack) Ovarian cyst Home Medications ?Medication ?Instructions ?Recorded ?Last Taken ?Type epinephrine 0.3 mg/0.3 mL 0.3 mg (0.3 mL) IM Q5-15M PRN 10/05/24 Unknown Rx injection, auto-injector (EpiPen anaphylaxis #2 ea 2-Scout) albuterol sulfate 90 mcg/actuation 2 puff inhalation Q6H PRN 11/19/24 Unknown Rx aerosol inhaler shortness of breath or wheezing #8.5 grams sumatriptan succinate 6 mg/0.5 mL 6 mg subcut Q12H PRN MIGRAINE 12/11/24 Unknown History subcutaneous pen injector zolpidem 12.5 mg tablet,extended 12.5 mg PO QHS PRN insomnia 12/18/24 03/28/25 History release,multiphase (Ambien CR) famotidine 20 mg tablet 20 mg PO DAILY 03/19/25 03/28/25 History gabapentin 400 mg capsule 400 mg PO TID #270 caps 03/23/25 03/29/25 Rx linaclotide 290 mcg capsule 290 mcg PO QDAY #90 caps 03/26/25 03/26/25 Rx (Linzess) potassium chloride 20 mEq oral 20 meq PO BID #100 ea 04/15/25 Unknown Rx packet pantoprazole 40 mg tablet,delayed 40 mg PO DAILY #90 TABLETS 04/20/25 Unknown Rx release blood-glucose sensor (Dexcom G7 #1 ea 04/23/25 Unknown Rx Sensor device) blood-glucose,callisthenics instructor,cont #1 ea 04/23/25 Unknown Rx (Dexcom G7 Business Process Consultant) blood sugar diagnostic (OneTouch #100 ea 04/27/25 Unknown Rx Verio test strips) hyoscyamine sulfate 0.125 mg tablet 0.125 mg PO BID-QID PRN dyspepsia 04/27/25 Unknown Rx #60 tabs lancets 30 gauge (OneTouch #200 ea 04/27/25 Unknown Rx UltraSoft 2 Lancet) sumatriptan succinate 100 mg tablet See Rx Instructions PO .COMPLEX 04/27/25 Unknown Rx #12 tabs ergocalciferol (vitamin D2) 1,250 1,250 mcg PO QWEEK #1 cap 05/12/25 Unknown Rx mcg (50,000 unit) capsule (Vitamin D2) folic acid 1 mg tablet 1 mg PO QDAY #30 tabs 05/12/25 Unknown Rx magnesium oxide 400 mg PO BID #60 tabs 05/12/25 Unknown Rx promethazine 25 mg rectal 25 mg NE Q6H PRN nausea and 05/12/25 Unknown Rx suppository vomiting #12 ea spironolactone 50 mg tablet 50 mg PO BID #60 tabs 05/12/25 Unknown Rx torsemide 20 mg tablet 20 mg PO QDAY #30 tabs 05/12/25 Unknown Rx indomethacin 50 mg capsule 50 mg PO TID PRN pain 05/17/25 Unknown History lorazepam 0.5 mg tablet (Ativan) 0.5 mg PO QDAY 05/17/25 Unknown History meclizine 25 mg tablet 25 mg PO BID PRN dizziness 05/17/25 Unknown History tizanidine 4 mg capsule 4 mg PO TID PRN muscle spasticity 05/17/25 Unknown History docusate sodium 100 mg capsule 100 mg PO DAILY PRN for 05/18/25 Unknown Rx constipation #30 caps amoxicillin 400 mg/5 mL oral 500 mg (6.25 mL) PO BID 7 days 05/26/25 Unknown Rx suspension #87.5 mL oxycodone 5 mg/5 mL oral solution 5 mg (5 mL) PO Q4-6H PRN pain 7 05/26/25 Unknown Rx days #100 mL Allergy/AdvReac Type Severity Reaction Status Date / Time bee venom protein (honey Allergy Severe Anaphylaxis Verified 05/29/25 10:02 bee) (bee sting) ziprasidone (From Geodon) Allergy Severe facial Verified 05/29/25 10:02 swelling ciprofloxacin (From Cipro) Allergy Intermediate Angioedema Verified 05/29/25 10:02 levofloxacin (From Levaquin) Allergy Intermediate Angioedema Verified 05/29/25 10:02 adhesive tape Allergy Mild Rash Verified 05/29/25 10:02 latex Allergy Mild Rash Verified 05/29/25 10:02 Iodinated Contrast Media Allergy Hives Verified 05/29/25 10:02 ondansetron (From Zofran) Allergy Hives Verified 05/29/25 10:02 propranolol Allergy Angioedema Verified 05/29/25 10:02 midazolam (From Versed) AdvReac Severe Other Verified 05/29/25 10:02 haloperidol (From Haldol) AdvReac Other Verified 05/29/25 10:02 metoclopramide (From Reglan) AdvReac Other Verified 05/29/25 10:02 Family History Father Alcoholism Hypertension Thyroid disorder Mother Anxiety Autoimmune disorder Bleeding disorder Hypertension Mental disorder CVA (cerebral vascular accident) Suicide attempt Thyroid disorder Other Breast cancer Colon cancer Diabetes Heart disease Myocardial infarction Ovarian cancer Surgical History S/P percutaneous endoscopic gastrostomy (PEG) tube placement History of vascular access device Port-A-Cath in place H/O hernia repair H/O wisdom tooth extraction H/O oophorectomy Hx of cholecystectomy H/O tubal ligation Social History adopted: No household members: children and none number of children: 2 current occupational status: unemployed pets and animals: No sexually active: No Smoking Status: Never smoker alcohol intake: never substance use type: does not use caffeine: No frequency: 3-4 times per week do you feel safe at home: Yes ROS ROS ED ROS Narrative Constitutional: Denies any fevers, chills, headaches Abdomen: Complains of abdominal pain as noted above denies nausea vomiting : Denies urinary symptoms Neurological: Denies any numbness, weakness, tingling Musculoskeletal: Denies back pain Skin: Denies any rashes or lesions EXAM Physical Exam Narrative Exam Narrative: General: Patient was lying in bed rest comfortably did not appear to be in acute distress Head: Atraumatic, normocephalic Eyes: PERRL bilaterally, EOMI bilaterally, no conjunctival injection noted Neck: Soft, supple, trachea midline Cardiovascular: Patient tachycardic with a regular rhythm Respiratory: Clear to auscultation bilaterally Abdomen: Soft, nondistended, diffuse tenderness to palpation no rebound or guarding exam, PEG tube in in place no active drainage noted Extremities: +5/5 strength noted in the bilateral lower extremities Neurological: Patient follow commands and that she was at [facility] year is 2024 Skin: Warm, dry, intact no rashes noted Const Vital Signs: 05/29/25 09:54 05/29/25 10:01 05/29/25 10:07 Temperature 98.3 F 98.3 F Temperature Source Oral Oral Pulse Rate 105 H 106 H Respiratory Rate 16 16 Blood Pressure 124/87 H 104/68 Blood Pressure Mean 99 80 Pulse Ox 100 100 100 Oxygen Delivery Method Room Air Room Air 05/29/25 10:15 05/29/25 10:30 05/29/25 10:45 Temperature Temperature Source Pulse Rate Respiratory Rate Blood Pressure 118/69 104/46 L 130/80 H Blood Pressure Mean 84 62 95 Pulse Ox 100 100 97 Oxygen Delivery Method 05/29/25 11:00 05/29/25 11:15 05/29/25 11:16 Temperature Temperature Source Pulse Rate Respiratory Rate Blood Pressure 144/96 H 131/91 H Blood Pressure Mean 110 103 Pulse Ox 100 100 Oxygen Delivery Method 05/29/25 11:25 05/29/25 11:30 05/29/25 11:30 Temperature 98.2 F Temperature Source Oral Pulse Rate 89 Respiratory Rate 17 Blood Pressure 131/91 H 135/92 H 135/92 H Blood Pressure Mean 104 104 104 Pulse Ox 100 100 Oxygen Delivery Method Room Air 05/29/25 11:45 05/29/25 12:00 05/29/25 12:00 Temperature 98.4 F Temperature Source Oral Pulse Rate 96 Respiratory Rate 18 Blood Pressure 139/114 H 128/67 H Blood Pressure Mean 124 87 Pulse Ox 100 99 Oxygen Delivery Method Room Air 05/29/25 12:25 05/29/25 12:26 05/29/25 12:30 Temperature Temperature Source Pulse Rate Respiratory Rate Blood Pressure 128/67 H 115/66 Blood Pressure Mean 80 82 Pulse Ox 100 100 Oxygen Delivery Method 05/29/25 12:45 05/29/25 13:00 05/29/25 13:15 Temperature Temperature Source Pulse Rate Respiratory Rate Blood Pressure 122/81 H Blood Pressure Mean 92 Pulse Ox 97 100 99 Oxygen Delivery Method 05/29/25 13:30 05/29/25 13:45 05/29/25 14:00 Temperature Temperature Source Pulse Rate Respiratory Rate Blood Pressure 118/81 H 120/72 Blood Pressure Mean 90 88 Pulse Ox 96 100 96 Oxygen Delivery Method MDM MDM MDM Narrative Medical decision making narrative: Patient is a 35-year-old female who presented to the emergency department with a chief complaint of abdominal pain with recent PEG tube placement. On the differential diagnosis includes but not limited to viral gastroenteritis, postsurgical pain, stomach perforation. Once workup is obtained reviewed she will be reevaluated. Patient given Benadryl and Solu-Medrol. Patient CBC reviewed and showed no evidence of leukocytosis white blood count normal at 4.8, hemoglobin is 8, plate count was noted be 261. Patient sodium is 137, potassium of 4.5, creatinine 0.71. Patient AST and ALT were 9 and 9 respectively total bilirubin normal at 0.22. Patient lipase was 7 test was negative. Patient urinalysis reviewed and showed no evidence of infection. Patient's CT abdomen pelvis with IV contrast reviewed which showed submucosal thickening and edema noted in multiple bowel loops consistent with diffuse enteritis. Multiple nondistended fluid-filled small bowel loops consistent with ileus. There is associated induration of the mesenteric and retroperitoneal fat and free fluid throughout the mesentery into the pelvis suggestive of peritonitis. PEG tube in satisfactory position. No other suspicious solid organ abnormalities noted left pleural effusion with associated atelectasis. Patient EKG showed sinus rhythm with PACs noted at the rate of 60 bpm NE interval 178. Patient ordered IV antibiotics vancomycin and Zosyn at 1320. I have paged Dr. Padron and Dr. Layton. I spoke with Dr. Padron and she states that the patient can be admitted to medicine and this is not a surgical case currently for IV antibiotics and observation. I reached out to hospitalist for admission. Discussed case with hospitalist Dr. Bryson who will accept patient for admission. Notified the patient and all questions were answered at bedside. Lab Data Labs: Laboratory Results - last 24 hr 05/29/25 05/29/25 10:40 12:20 WBC 4.8 RBC 2.78 L Hgb 8.0 L Hct 24.1 L MCV 86.7 MCH 28.8 MCHC 33.2 RDW Std Deviation 46.6 H RDW Coeff of Millie 14.6 Plt Count 261 MPV 8.6 Immature Gran % (Auto) 0.400 Neut % (Auto) 53.8 Lymph % (Auto) 37.1 [place] % (Auto) 5.0 Eos % (Auto) 3.1 Baso % (Auto) 0.6 Absolute Neuts (auto) 2.6 Absolute Lymphs (auto) 1.78 Nucleated RBC % 0 Sodium 137 Potassium 4.5 Chloride 110 H Carbon Dioxide 21.5 Anion Gap 5 BUN 12 Creatinine 0.71 Estim Creat Clear Calc 113.44 Est GFR (MDRD) Non-Af 116 BUN/Creatinine Ratio 17.3 Glucose 103 H Calcium 7.7 Total Bilirubin 0.22 AST 9 ALT 9 Alkaline Phosphatase 100 Total Protein 3.9 L Albumin 1.8 L Globulin 2.1 L Albumin/Globulin Ratio 0.9 Lipase 7 L Serum , Qual NEGATIVE Urine Color Yellow Urine Clarity Clear Urine pH 8.0 Ur Specific [place] 1.010 Urine Protein Negative Urine Glucose (UA) Normal Urine Ketones Negative Urine Occult Blood Negative Urine Nitrite Negative Urine Bilirubin Negative Urine Urobilinogen Normal Ur Leukocyte Esterase Negative Urine RBC 0 SEEN Urine WBC 0 SEEN Ur Squamous Epith Cells 0-5 SEEN Urine Bacteria 0 SEEN Urine Mucus 0 SEEN Radiography Diagnostic Testing: Clinical Impression(s) from Imaging Studies Abdomen/Pelvis CT 05/29/25 10:10 IMPRESSION: Submucosal thickening and edema noted in multiple bowel loops consistent with diffuse enteritis. Multiple nondistended fluid-filled small bowel loops consistent with ileus. There is associated induration of the mesenteric and retroperitoneal fat and free fluid throughout the mesentery and into the pelvis. This is suggestive of peritonitis. Peg tube noted in satisfactory position Diffuse induration of the subcutaneous fat suggests anasarca or could be a sign of poor nutritional status. No suspicious solid organ abnormalities Left pleural effusion with associated atelectasis Reading Location: [id number] Discharge Plan Dx/Rx/DC Orders Clinical Impression: Abdominal pain, Nausea & vomiting, Peritonitis, Ileus Disposition Disposition: Acute Care Hospital [facility]
[2025-05-29] MEDS: DiphenhydrAMINE 50 MG/ML Syringe 25 MG IV ×3 (10:42→15:08)
[2025-05-29 10:43] LABS: Hematocrit 24.1 % (37-47); Hemoglobin 8.0 g/dL (12.0-15.0); Immature Granulocytes Count 0.020 X10^3/uL (0.0-0.0); Mean Corp Hgb Conc 33.2 g/dL (32-36); Mean Corpuscular Volume 86.7 fL (81-99); Mean Platelet Vol. 8.6 fl (6.2-12.0); NRBC Flagged by Analyzer 0 % (0-5); Platelet Count 261 K/mm3 (150-450); RBC Distribution Width CV 14.6 % (11.6-14.6); RBC Distribution Width SD 46.6 fl (35.1-43.9); Red Blood Count 2.78 M/mm3 (4.2-5.4); White Blood Count 4.8 K/mm3 (4.4-11.0)
[2025-05-29 10:55] LABS: Internal QC Validated? YES +Cl - CLEAR BKGD; Pregnancy, Serum, hCG Quali. NEGATIVE Negative; Record Kit Lot#, Serum Preg. 980607
[2025-05-29] MEDS: Ketorolac 30 MG/ML Syringe IV ×2 (10:55→21:55)
[2025-05-29 11:24] LABS: AST(SGOT) 9 U/L (<=31); Alanine Aminotransfer ALT/SGPT 9 U/L (<=34); Albumin, Serum 1.8 g/dL (3.5-5.0); Alkaline Phosphatase 100 U/L (35-104); Anion Gap 5 (5-15); BUN 12 mg/dL (4-19); BUN/Creat Ratio 17.3 RATIO (10-20); Calcium,Total 7.7 mg/dL (7.6-11.0); Carbon Dioxide 21.5 mmol/L (21.0-32.0); Chloride 110 mmol/L (98-108); Estimated Creatinine Clearance 113.44 ml/min (50-250); Globulin 2.1 g/dL (2.2-4.2); Glucose 103 mg/dL (70-99); Lipase 7 U/L (13-75); Potassium 4.5 mmol/L (3.3-5.1)
[2025-05-29 12:36] LABS: Mucous, Urine 0 SEEN /hpf (<or=2+); Red Blood Cells-Urine 0 SEEN /hpf (0-5)
[2025-05-29 12:37] LABS: Color, Urine Yellow (Yellow); Glucose, Dipstick Normal (Normal); Ketone-Dipstick Negative (Negative); Leukocyte Esterase-Dipstick Negative /ul (Negative); Nitrite-Dipstick Negative (Negative); Occult Blood-Urine Negative /ul (Negative); Protein-Dipstick Negative (Negative); Specific Gravity, Urine 1.010 (1.002-1.030); Urine Bilirubin Dipstick Negative (Negative)
[2025-05-29 12:43] LABS: Squamous Epithelial Cells - UA 0-5 SEEN /hpf (5-10)
--- NOTE | 2025-05-29 12:44 | ED.RN ---
Desktop Analyst Mariel called me and said that pt had called her and told her that she had been waiting on Dr Layton to call back for awhile. I went and spoke with the pt and explained to her that we are waiting on her CT results to come back before we call him. She said that she thought he was coming to see her here. I told her again that DR Hatch will call him once the results are back. Pts visitor then said that the pt is still in pain. I explained I would let Dr Hatch know. Dr Hatch was made aware and will order something for pain.
[2025-05-29] MEDS: Piperacil/Tazobactam 3.375 GM in 0.9% Normal Saline (50mL MB+) 50 ML IV (13:37)
--- NOTE | 2025-05-29 14:46 | CT_ITS ---
PROCEDURE: ABDOMEN/PEL W ORAL CONT ONLY 05/29/2025 REASON FOR EXAM: ABD PAIN TECHNIQUE: Procedure Code: [id number] Modality: CT Procedure: ABDOMEN/PEL W ORAL CONT ONLY Noncontrast technique limits evaluation of the abdominal and pelvic viscera. Coronal and Sagittal reconstruction series were provided. One or more dose reduction techniques were used (e.g., Automated exposure control, adjustment of the mA and/or kV according to patient size, use of iterative reconstruction technique). RADIATION DOSE SUMMARY: CTDlvol: 13 mGy DLP: 688 MGycm COMPARISON: Study earlier the same day FINDINGS: Study has been repeated with oral contrast. Small left effusion. Normal noncontrast appearance of the liver, spleen and gallbladder. Gastrostomy tube present. Contrast in the renal collecting systems. A moderate amount of the small bowel has been opacify and there is no small bowel obstruction. The there is no intraluminal bladder mass. There is moderate ascites but no other positive findings of peritonitis. No peritoneal or omental thickening. On the current study the pancreas is unremarkable. I do not see bowel wall thickening, asymmetric dilatation or abscess formation. Anasarca remains present. CT/Abdomen/Pel W ORAL Cont Only IMPRESSION: Repeat examination with oral contrast reveals no obstruction, colitis or absces s. Moderate free-fluid is again noted When the study has been repeated, the finding of possible wall thickening is no t as prominent. Reading [facility]
--- NOTE | 2025-05-29 14:59 | PCM.HOSP.N ---
Hospitalist Note I went to see the patient by the ER physician to call me. History taken from the patient She said she had abdominal pain started day before yesterday after she had Bactrim on Saturday by Dr. Layton. She also started feeling nauseated and feels like throwing up but did not throw up yet. Abdomen pelvis diffuse severe therefore she came to ED. She is also having brownish liquid stool couple times a day before yesterday and 6 times yesterday. She rates abdominal pain 10 out of 10 On exam Lungs clear. Heart S1-S2 regular. Abdomen: Tender diffuse but mostly bilateral lower quadrants. Rebound tenderness present. Bowel sounds sluggish. Mild voluntary guarding but no cardboard rigidity CT abdomen with IV contrast reviewed with the patient. It shows features of ileus, multiple small bowel loops consistent with diffuse enteritis. Associated induration of mesenteric and retroperitoneal fat and free fluid throughout the mesentery and into the pelvis, suggestive of peritonitis. Thereafter I talked to surgeon, Dr. Padron and requested to evaluate the patient with concern of clinical and radiological suggestion of peritonitis. If it is peritonitis will prefer to admit to surgical service. She suggested CT abdomen and pelvis after 2 hours of oral contrast. This was communicated to the ER physician Dr. Hatch. Surgeon further said that her admission will be decided after oral contrast CT regarding peritonitis. On further note, patient trying to dictate her management. She said she wants 50 mg of IV Benadryl and 5 to 10 mg of IV Reglan in order to control her nausea vomiting and feeling of anxiety before giving opioids for severe abdominal pain. For abdominal pain she said it does not get relieved with Tylenol or Toradol therefore wanted opioids morphine. I said with her clinical and radiological diagnosis of ileus and peritonitis, opioids are not recommended as it will worsen the ileus leading more to obstruction and heavy dose of 50 mg of IV Benadryl may cause sedation or respiratory arrest. At that point patient starts crying and did not like it.
--- NOTE | 2025-05-29 15:00 | ED.RN ---
This RN to bedside d/t pt recreation director light. Pt states Can you guys just pull my peg tube out. I don't want to stay here, the hospitalist was rude and kept cutting me off. He said he isn't going to give me pain meds or my nausea medication. Can I just stay down here. this RN explained process to her and options at this time. Pt states well I think I am going to have to leave. This RN made Dr. Hatch aware. Dr. Hatch to bedside and came to decision to transfer pt. Pt refusing IV vancomycin until she can get nausea medication.
[2025-05-29] MEDS: Vancomycin HCl 1,250 MG in 0.9% Normal Saline (250mL Bag) 250 ML 167 MG IV (15:14)
--- NOTE | 2025-05-29 19:20 | HP.PCM.HOS_ITS ---
HPI - General General Date of Admission: 05/29/25 Date of Service: 05/29/25 Chief Complaint: Abdominal pain, N/V, loose stools. HPI Narrative The patient is 35 y/o F w/ PMHx: Anxiety and Depression/Bipolar disorder, GERD, Chronic anemia, Hx Substance use, Diabetes mellitus type II with chronic neuropathy, PCOS, Hx VTE (DVT, PE) with Factor V Leiden deficiency who presents to the [facility] ED on 05/29/2025 with history of acute on chronic abdominal pain with recent PEG tube inserted the Saturday previous per gastroenterology noted to be complicated requiring surgical assistance reportedly doing well until the last 24 hours with onset of nausea, emesis, generalized abdominal pain described as sharp stabbing rated 7-8 out of 10 in severity in addition to loose stools with patient reported drainage from the insertion site prompting her to call gastroenterology who recommend ED evaluation to be cautious. Workup in the ED included T98.3, heart rate 105, BP 124/87, respiratory rate 16, no percent room air with most recent repeat vitals BP 112/75, 100% on room air, CBC with WC 4.8, hemoglobin 8, MCV 86.7, platelet 261 without marked shift, CMP with chloride 110, glucose 103, lipase 7, negative testing, urinalysis unremarkable, CT abdomen and pelvis initially obtained with IV contrast with submucosal thickening and edema noted to multiple bowel loops consistent with diffuse enteritis, multiple nondistended fluid- filled small bowel loops consistent with ileus, associated induration of mesenteric and retroperitoneal fat and free fluid throughout the mesentery and into the pelvis suggestive of peritonitis, PEG tube in satisfactory position, diffuse induration of the subcutaneous fat suggestive of anasarca possibly sign of poor nutritional status, left lower effusion with associated atelectasis with follow-up CT with oral contrast per surgery recommendation with no obstruction, colitis or abscess with moderate free fluid again noted with possible wall thickening not as prominent as previously with no positive findings of peritonitis, EKG with sinus rhythm with PACs with no acute evidence of ischemia. In the ED patient ministered IV vancomycin, IV Zosyn, morphine 4 mg IV x 2, Reglan 10 mg IV x 1, Solu-Medrol 125 mg IV x 1, Ativan 1 mg IV x 1, Toradol 30 mg IV x 1, Dilaudid 1 mg IV x 1, Benadryl 25 mg IV x 3, 1 L normal saline. [facility] Medical History Walker as ambulation aid CAP (community acquired pneumonia) Hx of substance abuse Bipolar disorder Kidney stones GERD (gastroesophageal reflux disease) Non-smoker Generalized weakness Anemia Easy bruising Dietary restriction Implantable loop recorder present Wears glasses Anxiety MRSA infection Substance abuse History of steroid therapy Diabetes Injury of head and neck History of IBS Gastric reflux Neuropathy delivery delivered Arthritis Prolonged QT interval PCOS (polycystic ovarian syndrome) Factor V Leiden Anxiety Depression Pulmonary embolism DVT (deep venous thrombosis) TIA (transient ischemic attack) Ovarian cyst Home Medications ?Medication ?Instructions ?Recorded ?Last Taken ?Type epinephrine 0.3 mg/0.3 mL 0.3 mg (0.3 mL) IM Q5-15M SD N 10/05/24 Unknown Rx injection, auto-injector (EpiPen anaphylaxis #2 ea 2-Scout) albuterol sulfate 90 mcg/actuation 2 puff inhalation Q 6H PRN 11/19/24 Unknown Rx aerosol inhaler shortness of breath or wheez ing #8.5 grams sumatriptan succinate 6 mg/0.5 mL 6 mg subcut Q12H PRN MIGRAINE 12/11/24 Unknown History subcutaneous pen injector zolpidem 12.5 mg tablet,extended 12.5 mg PO QHS PRN in somnia 12/18/24 03/28/25 History release,multiphase (Ambien CR) famotidine 20 mg tablet 20 mg PO DAILY 03/19/2503/15 History gabapentin 400 mg capsule 400 mg PO TID #270 caps 04/0803/29/25 Rx linaclotide 290 mcg capsule 290 mcg PO QDAY #90 caps 0 03/26/25 03/26/25 Rx (Linzess) potassium chloride 20 mEq oral 20 meq PO BID #100 ea 1 Unknown Rx packet pantoprazole 40 mg tablet,delayed 40 mg PO DAILY #90 T ABLETS 04/20/25 Unknown Rx release blood-glucose sensor (Dexcom G7 #1 ea 04/23/25 Unknown Rx Sensor device) blood-glucose,manager post,cont #1 ea 04/23/25 Unknown Rx (Dexcom G7 Lobby Porter) blood sugar diagnostic (OneTouch #100 ea 04/27/25 Unkn own Rx Verio test strips) hyoscyamine sulfate 0.125 mg tablet 0.125 mg PO BID-QI D PRN dyspepsia 04/27/25 Unknown Rx #60 tabs lancets 30 gauge (OneTouch #200 ea 04/27/25 Unknown Rx UltraSoft 2 Lancet) sumatriptan succinate 100 mg tablet See Rx Instruction s PO .COMPLEX 04/27/25 Unknown Rx #12 tabs ergocalciferol (vitamin D2) 1,250 1,250 mcg PO QWEEK # 1 cap 05/12/25 Unknown Rx mcg (50,000 unit) capsule (Vitamin D2) folic acid 1 mg tablet 1 mg PO QDAY #30 tabs Unknown Rx magnesium oxide 400 mg PO BID #60 tabs 05/12 Unknown Rx promethazine 25 mg rectal 25 mg SD Q6H PRN nausea and 05/12/25 Unknown Rx suppository vomiting #12 ea spironolactone 50 mg tablet 50 mg PO BID #60 tabs 04/15 04/08 Unknown Rx torsemide 20 mg tablet 20 mg PO QDAY #30 tabs 05/12 Unknown Rx indomethacin 50 mg capsule 50 mg PO TID PRN pain 05/17 Unknown History lorazepam 0.5 mg tablet (Ativan) 0.5 mg PO QDAY Unknown History meclizine 25 mg tablet 25 mg PO BID PRN dizziness 1 07/17/24 Unknown History tizanidine 4 mg capsule 4 mg PO TID PRN muscle spast icity 05/17/25 Unknown History docusate sodium 100 mg capsule 100 mg PO DAILY PRN for 05/18/25 Unknown Rx constipation #30 caps amoxicillin 400 mg/5 mL oral 500 mg (6.25 mL) PO BID 7 days 05/26/25 Unknown Rx suspension #87.5 mL oxycodone 5 mg/5 mL oral solution 5 mg (5 mL) PO Q4-6H PRN pain 7 05/26/25 Unknown Rx days #100 mL aripiprazole 15 mg tablet 15 mg PO 05/29/25 Unknown Hi story atogepant 60 mg tablet (Qulipta) 60 mg PO 05/29/25 Unk nown History clonidine HCl 0.2 mg tablet 0.2 mg PO TID 05/29/25 Unk nown History dulaglutide 1.5 mg/0.5 mL mg subcut 05/29/25 Unknown H istory subcutaneous pen injector (Trulicity) erenumab-aooe 70 mg/mL mg subcut 05/29/25 Unknown H istory subcutaneous auto-injector (Aimovig Autoinjector) lasmiditan 100 mg tablet (Reyvow) PO 05/29/25 Unknown History Allergy/AdvReac Type Severity Reaction Status Date / Time bee venom protein (honey Allergy Severe Anaphylaxis Verified 05/29/25 10:02 bee) (bee sting) ziprasidone (From Geodon) Allergy Severe facial Verified 05/29/25 10:02 swelling ciprofloxacin (From Cipro) Allergy Intermediate Angioedema Verified 05/29/25 10:02 levofloxacin (From Levaquin) Allergy Intermediate Angioedema Verified 05/29/25 10:02 adhesive tape Allergy Mild Rash Verified 05/29/25 10:02 latex Allergy Mild Rash Verified 05/29/25 10:02 Iodinated Contrast Media Allergy Hives Verified 05/29/25 10:02 ondansetron (From Zofran) Allergy Hives Verified 05/29/25 10:02 propranolol Allergy Angioedema Verified 05/29/25 10:02 midazolam (From Versed) AdvReac Severe Other Verified 05/29/25 10:02 haloperidol (From Haldol) AdvReac Other Verified 05/29/25 10:02 metoclopramide (From Reglan) AdvReac Other Verified 05/29/25 10:02 Family History Father Alcoholism Hypertension Thyroid disorder Mother Anxiety Autoimmune disorder Bleeding disorder Hypertension Mental disorder CVA (cerebral vascular accident) Suicide attempt Thyroid disorder Other Breast cancer Colon cancer Diabetes Heart disease Myocardial infarction Ovarian cancer Surgical History S/P percutaneous endoscopic gastrostomy (PEG) tube placement History of vascular access device Port-A-Cath in place H/O hernia repair H/O wisdom tooth extraction H/O oophorectomy Hx of cholecystectomy H/O tubal ligation Social History adopted: No household members: children and none number of children: 2 current occupational status: unemployed pets and animals: No sexually active: No Smoking Status: Never smoker alcohol intake: never substance use type: does not use caffeine: No frequency: 3-4 times per week do you feel safe at home: Yes ROS ROS Narrative Admission Review of Systems: CONSTITUTIONAL: No weight loss, fever, chills, + weakness or fatigue. HEENT: Eyes: No visual loss, blurred vision, double vision or yellow sclerae. Ears, Nose, Throat: No hearing loss, sneezing, congestion, runny nose or sore throat. SKIN: No rash or itching, lesions, wounds except + occasional stage ecchymoses, abrasion. CARDIOVASCULAR: + Chronic distal edema. No chest pain, chest pressure or chest discomfort, palpitations, orthopnea, syncopal events. RESPIRATORY: No shortness of breath, cough or sputum, wheezing, hemoptysis. GASTROINTESTINAL: + anorexia, nausea, vomiting, loose stools, abdominal pain, questionable discharge from PEG tube insertion site. No melena, BRBPR. GENITOURINARY: No dysuria, frequency, urgency or retention. NEUROLOGICAL: + Chronic migraines. No dizziness, syncope, paralysis, ataxia, numbness or tingling in the extremities, focal weakness, change in bowel or bladder control, seizure. MUSCULOSKELETAL: + muscle, back pain, joint pain or stiffness. HEMATOLOGIC: + Chronic anemia, easy bleeding/bruising. LYMPHATICS: No enlarged nodes. No history of splenectomy. PSYCHIATRIC: + History of anxiety depression/bipolar disorder. ENDOCRINOLOGIC: No reports of sweating, cold or heat intolerance. No polyuria or polydipsia. ALLERGIES: + History of hives, anaphylaxis. Vital Signs Vital Signs Vital Signs: 05/29/25 09:54 05/29/25 10:01 05/29/25 10:07 Temperature 98.3 F 98.3 F Temperature Source Oral Oral Pulse Rate 105 H 106 H Respiratory Rate 16 16 Blood Pressure 124/87 H 104/68 Blood Pressure Mean 99 80 Pulse Ox 100 100 100 Oxygen Delivery Method Room Air Room Air 05/29/25 10:15 05/29/25 10:30 05/29/25 10:45 Temperature Temperature Source Pulse Rate Respiratory Rate Blood Pressure 118/69 104/46 L 130/80 H Blood Pressure Mean 84 62 95 Pulse Ox 100 100 97 Oxygen Delivery Method 05/29/25 11:00 05/29/25 11:15 05/29/25 11:16 Temperature Temperature Source Pulse Rate Respiratory Rate Blood Pressure 144/96 H 131/91 H Blood Pressure Mean 110 103 Pulse Ox 100 100 Oxygen Delivery Method 05/29/25 11:25 05/29/25 11:30 05/29/25 11:30 Temperature 98.2 F Temperature Source Oral Pulse Rate 89 Respiratory Rate 17 Blood Pressure 131/91 H 135/92 H 135/92 H Blood Pressure Mean 104 104 104 Pulse Ox 100 100 Oxygen Delivery Method Room Air 05/29/25 11:45 05/29/25 12:00 05/29/25 12:00 Temperature 98.4 F Temperature Source Oral Pulse Rate 96 Respiratory Rate 18 Blood Pressure 139/114 H 128/67 H Blood Pressure Mean 124 87 Pulse Ox 100 99 Oxygen Delivery Method Room Air 05/29/25 12:25 05/29/25 12:26 05/29/25 12:30 Temperature Temperature Source Pulse Rate Respiratory Rate Blood Pressure 128/67 H 115/66 Blood Pressure Mean 80 82 Pulse Ox 100 100 Oxygen Delivery Method 05/29/25 12:45 05/29/25 13:00 05/29/25 13:15 Temperature Temperature Source Pulse Rate Respiratory Rate Blood Pressure 122/81 H Blood Pressure Mean 92 Pulse Ox 97 100 99 Oxygen Delivery Method 05/29/25 13:30 05/29/25 13:45 05/29/25 14:00 Temperature Temperature Source Pulse Rate Respiratory Rate Blood Pressure 118/81 H 120/72 Blood Pressure Mean 90 88 Pulse Ox 96 100 96 Oxygen Delivery Method 05/29/25 14:15 05/29/25 14:30 05/29/25 14:45 Temperature Temperature Source Pulse Rate Respiratory Rate Blood Pressure 124/64 H Blood Pressure Mean 82 Pulse Ox 100 100 98 Oxygen Delivery Method 05/29/25 15:00 05/29/25 15:01 05/29/25 15:15 Temperature Temperature Source Pulse Rate Respiratory Rate Blood Pressure 115/78 Blood Pressure Mean 89 Pulse Ox 99 96 Oxygen Delivery Method 05/29/25 15:30 05/29/25 15:31 05/29/25 15:45 Temperature Temperature Source Pulse Rate Respiratory Rate Blood Pressure 111/95 H Blood Pressure Mean 102 Pulse Ox 100 100 Oxygen Delivery Method 05/29/25 16:00 05/29/25 16:01 05/29/25 16:14 Temperature Temperature Source Pulse Rate 101 H Respiratory Rate 17 Blood Pressure 119/80 119/80 Blood Pressure Mean 91 93 Pulse Ox 100 100 Oxygen Delivery Method 05/29/25 16:15 05/29/25 16:30 05/29/25 16:31 Temperature Temperature Source Pulse Rate Respiratory Rate Blood Pressure 115/59 L Blood Pressure Mean 77 Pulse Ox 99 83 Oxygen Delivery Method 05/29/25 16:45 05/29/25 17:00 05/29/25 17:15 Temperature Temperature Source Pulse Rate Respiratory Rate Blood Pressure 111/72 Blood Pressure Mean 84 Pulse Ox 100 99 98 Oxygen Delivery Method 05/29/25 17:30 05/29/25 17:31 05/29/25 17:45 Temperature Temperature Source Pulse Rate Respiratory Rate Blood Pressure 109/76 Blood Pressure Mean 87 Pulse Ox 100 100 Oxygen Delivery Method 05/29/25 18:00 05/29/25 18:00 05/29/25 18:01 Temperature Temperature Source Pulse Rate Respiratory Rate Blood Pressure 110/82 H 110/82 H Blood Pressure Mean 91 91 Pulse Ox 100 Oxygen Delivery Method 05/29/25 18:15 05/29/25 18:30 05/29/25 18:31 Temperature Temperature Source Pulse Rate Respiratory Rate Blood Pressure 112/75 Blood Pressure Mean 87 Pulse Ox 93 100 Oxygen Delivery Method 05/29/25 18:45 05/29/25 19:12 Temperature 98.4 F Temperature Source Pulse Rate 101 H Respiratory Rate 17 Blood Pressure 112/75 Blood Pressure Mean 87 Pulse Ox 98 98 Oxygen Delivery Method Weight Weight: 193 lb 5.526 oz Body Mass Index (BMI) 36.5 Physical Exam Narrative Physical Examination: General: Awake, alert, oriented x 3 and cooperative, seated upright in the ED bed, fatigued appearing, mildly disheveled but no acute distress. Skin: Normal color, normal turgor, no icterus, no cyanosis except occasional stage ecchymoses, abrasions. HEENT: AT/NC, EOMI, PERRLA, dry MM, no carotid bruits or JVD noted. Lungs: Mildly diminished, greater bases, proper effort, no rales, ronchi or wheezing. Heart: Regular rate and rhythm; no gallop, rub audible. Abdomen: Soft, with deep stethoscope palpation unable to elicit any grimacing or pain however with manual diffuse tenderness to palpation/voluntary guarding, no obvious distention, mildly hyperactive bowel sounds, difficult to assess HSM given with deep palpation patient examination changes with significant pain. Extremities: No cyanosis, no clubbing, notable pedal to mid thigh edema/known anasarca. Neurological: Patient awake, alert, oriented as noted, cognitive function intact; pupils equally reactive to light and accommodation, cranial nerves grossly normal, moving all 4 extremities, no focal deficits, strength moderately globally decreased. Psychiatric: Affect appears anxious, fatigued, no acute evidence of depressive feelings but does have underlying history. Results Lab / Micro Data 05/29/25 10:40 05/29/25 10:40 Labs: Laboratory Results - last 24 hr 05/29/25 10:40: WBC 4.8, RBC 2.78 L, Hgb 8.0 L, Hct 24.1 L, MCV 86.7, MCH 28.8, MCHC 33.2, RDW Std Deviation 46.6 H, RDW Coeff of Millie 14.6, Plt Count 261, MPV 8.6, Immature Gran % (Auto) 0.400, Neut % (Auto) 53.8, Lymph % (Auto) 37.1, Mclean % (Auto) 5.0, Eos % (Auto) 3.1, Baso % (Auto) 0.6, Absolute Neuts (auto) 2.6, Absolute Lymphs (auto) 1.78, Nucleated RBC % 0, Sodium 137, Potassium 4.5, C hloride 110 H, Carbon Dioxide 21.5, Anion Gap 5, BUN 12, Creatinine 0.71, Estim Creat Clear Calc 113.44, Est GFR (MDRD) Non-Af 116, BUN/Creatinine Ratio 17.3, G lucose 103 H, Calcium 7.7, Total Bilirubin 0.22, AST 9, ALT 9, Alkaline Phosphatase 100, Total Protein 3.9 L, Albumin 1.8 L, Globulin 2.1 L, Albumin/Globulin Ratio 0.9, Lipase 7 L, Serum , Qual NEGATIVE 05/29/25 12:20: Urine Color Yellow, Urine Clarity Clear, Urine pH 8.0, Ur Specific Tillar 1.010, Urine Protein Negative, Urine Glucose (UA) Normal, Urine Ketones Negative, Urine Occult Blood Negative, Urine Nitrite Negative, Urine Bilirubin Negative, Urine Urobilinogen Normal, Ur Leukocyte Esterase Negative, Urine RBC 0 SEEN, Urine WBC 0 SEEN, Ur Squamous Epith Cells 0-5 SEEN, Urine Bacteria 0 SEEN, Urine Mucus 0 SEEN Imaging Radiology Impression Abdomen/Pelvis CT 05/29/25 10:10 IMPRESSION: Submucosal thickening and edema noted in multiple bowel loops consistent with diffuse enteritis. Multiple nondistended fluid-filled small bowel loops consistent with ileus. There is associated induration of the mesenteric and retroperitoneal fat and free fluid throughout the mesentery and into the pelvis. This is suggestive of peritonitis. Peg tube noted in satisfactory position Diffuse induration of the subcutaneous fat suggests anasarca or could be a sign of poor nutritional status. No suspicious solid organ abnormalities Left pleural effusion with associated atelectasis Reading Location: [id number] Ab[facility]en CT 05/29/25 14:46 IMPRESSION: Repeat examination with oral contrast reveals no obstruction, colitis or abscess. Moderate free-fluid is again noted When the study has been repeated, the finding of possible wall thickening is not as prominent. Reading [facility] Assessment & Plan Assessment/Plan (1) Nausea & vomiting: PLAN: Plan The patient is 35 y/o F w/ PMHx: Anxiety and Depression/Bipolar disorder, GERD, Chronic anemia, Hx Substance use, Diabetes mellitus type II with chronic neuropathy, PCOS, Hx VTE (DVT, PE) with Factor V Leiden deficiency who presents to the [facility] ED on 05/29/2025 with history of acute on chronic abdominal pain with recent PEG tube inserted the Saturday previous per gastroenterology noted to be complicated requiring surgical assistance reportedly doing well until the last 24 hours with onset of nausea, emesis, generalized abdominal pain described as sharp stabbing rated 7-8 out of 10 in severity in addition to loose stools with patient reported drainage from the insertion site prompting her to call gastroenterology who recommend ED evaluation to be cautious. #1. Intractable abdominal pain with nausea and emesis, questionable ileus, questionable peritonitis although lower suspicion: Initial CT concerning for possible peritonitis however repeat less notable, will admit to medical surgical floor, will hold tube feeds, will maintain on IV PPI, will hold off on any further vancomycin and IV Zosyn as already administered in the ED and discussed with general surgery who given repeat imaging and exam not concerning with no rebound or marked guarding low suspicion for intra-abdominal infection, procalcitonin is requested and unfortunately this is significantly elevated may reconsider this, will continue surgical and gastroenterology consultation, will have antiemetics as well as judicious pain medication given concern for ileus with preferentially IV Toradol scheduled. #2. Anxiety and depression/bipolar disorder: Will continue patient home psychiatric regimen, encourage continued follow-up outpatient with psychiatry/psychology as previously arranged. #3. Diabetes mellitus type II with chronic neuropathy: Hold oral home regimen, n.p.o. status as noted given #1, will maintain on every 6 hours accu checks w/ ISS, continue home gabapentin regimen. #4. Hypertension: Continue home regimen including torsemide, clonidine, spironolactone, PRN hydralazine. #5. Chronic normocytic anemia: Admission hemoglobin 8, MCV 86.7, baseline hemoglobin 7-8, stable, continue to trend. #6. History of VTE with factor V Leiden deficiency: Noted history of DVT, PE, per current list does not appear to be on chronic anticoagulation, clarified to be certain, maintain on chemoprophylaxis. #7. Obesity: Weight loss and lifestyle changes encouraged. #8. History of former substance abuse: Noted in the chart history, encourage clean status. #9. GERD: Maintain on IV PPI as noted. #10. DVT prophylaxis: Lovenox. Charges/Coding Visit Charges Inpatient E&M: 14030 Init Hosp L3
--- NOTE | 2025-05-29 19:22 | ED.RN ---
Patient hit call light requesting IV norflex or more dilaudid. States her joints, head, and stomach hurt. Patient educated on pain management and pain goals. Dr. Stevens notified of patient requests.
[2025-05-29 20:11] LABS: Magnesium 1.7 mg/dL (1.5-2.2)
[2025-05-29 21:18] LABS: Procalcitonin 0.06 ng/mL (<=0.10)
[2025-05-29] MEDS: DiphenhydrAMINE 50 MG/ML Syringe 12.5 MG IV (21:55)
[2025-05-29] MEDS: Pantoprazole Sodium 40 MG in 0.9% Normal Saline (100mL MB+) 100 ML 330 MG IV (21:57)
[2025-05-29] MEDS: 0.9% Saline Lock 10 ML Syringe IV (23:09)
[2025-05-30] MEDS: 0.9% Saline Lock 10 ML Syringe IV ×3 (00:58→06:59)
[2025-05-30 05:27] VITALS: BP 119/59; PULSE 103; RESP 16; TEMP 36.6; O2SAT 100
[2025-05-30] MEDS: Ketorolac 30 MG/ML Syringe IV (05:33)
[2025-05-30] MEDS: DiphenhydrAMINE 50 MG/ML Syringe 12.5 MG IV (05:33)
[2025-05-30 05:58] VITALS: BMI 35.7
[2025-05-30 06:06] LABS: Hematocrit 23.9 % (37-47); Hemoglobin 7.8 g/dL (12.0-15.0); Immature Granulocytes Count 0.040 X10^3/uL (0.0-0.0); Mean Corp Hgb Conc 32.6 g/dL (32-36); Mean Corpuscular Volume 85.4 fL (81-99); Mean Platelet Vol. 8.8 fl (6.2-12.0); NRBC Flagged by Analyzer 0 % (0-5); Platelet Count 345 K/mm3 (150-450); RBC Distribution Width CV 14.3 % (11.6-14.6); RBC Distribution Width SD 44.9 fl (35.1-43.9); Red Blood Count 2.80 M/mm3 (4.2-5.4); White Blood Count 8.4 K/mm3 (4.4-11.0)
[2025-05-30 06:33] LABS: AST(SGOT) 9 U/L (<=31); Alanine Aminotransfer ALT/SGPT 9 U/L (<=34); Albumin, Serum 2.0 g/dL (3.5-5.0); Alkaline Phosphatase 107 U/L (35-104); Anion Gap 5 (5-15); BUN 12 mg/dL (4-19); BUN/Creat Ratio 19.9 RATIO (10-20); Calcium,Total 8.2 mg/dL (7.6-11.0); Carbon Dioxide 22.6 mmol/L (21.0-32.0); Chloride 109 mmol/L (98-108); Estimated Creatinine Clearance 128.36 ml/min (50-250); Globulin 2.2 g/dL (2.2-4.2); Glucose 78 mg/dL (70-99); Potassium 4.8 mmol/L (3.3-5.1)
[2025-05-30] MEDS: Potassium Chloride Oral Soln 20 MEQ/15 ML UDC PO (08:43)
[2025-05-30] MEDS: Pantoprazole Sodium 40 MG in 0.9% Normal Saline (100mL MB+) 100 ML 330 MG IV (08:43)
--- NOTE | 2025-05-30 08:53 | PCM.HP.STD ---
HPI - General General Date of Admission: 05/29/25 Chief Complaint: Abdominal pain, N/V, loose stools. HPI Narrative ERIN TORRES, is a 35 F who presents to the ER due to pain at the PEG tube site. Patient states she was on antibiotics until yesterday for after her PEG tube was placed by Dr. Layton. Patient states that yesterday started to have increased pain at the PEG tube site. Patient does have the PEG tube due to chronic nausea and vomiting. Patient had initial CT with IV contrast question some mesenteric stranding, small bowel wall thickening and ascites. Repeat CT with p.o. contrast just showed the ascites, which patient does also have anasarca of the soft tissue which has been chronic. [facility] Medical History (Updated 05/30/25 @ 08:[address] Paz Padron MD) Walker as ambulation aid CAP (community acquired pneumonia) Hx of substance abuse Bipolar disorder Kidney stones GERD (gastroesophageal reflux disease) Non-smoker Generalized weakness Anemia Easy bruising Dietary restriction Implantable loop recorder present Wears glasses Anxiety MRSA infection Substance abuse History of steroid therapy Diabetes Injury of head and neck History of IBS Gastric reflux Neuropathy delivery delivered Arthritis Prolonged QT interval PCOS (polycystic ovarian syndrome) Factor V Leiden Anxiety Depression Pulmonary embolism DVT (deep venous thrombosis) TIA (transient ischemic attack) Ovarian cyst Home Medications ?Medication ?Instructions ?Recorded ?Last Taken ?Type epinephrine 0.3 mg/0.3 mL 0.3 mg (0.3 mL) IM Q5-15M PRN 10/05/24 Unknown Rx injection, auto-injector (EpiPen anaphylaxis #2 ea 2-Scout) albuterol sulfate 90 mcg/actuation 2 puff inhalation Q6H PRN 11/19/24 Unknown Rx aerosol inhaler shortness of breath or wheezing #8.5 grams sumatriptan succinate 6 mg/0.5 mL 6 mg subcut Q12H PRN MIGRAINE 12/11/24 Unknown History subcutaneous pen injector zolpidem 12.5 mg tablet,extended 12.5 mg PO QHS PRN insomnia 12/18/24 03/28/25 History release,multiphase (Ambien CR) famotidine 20 mg tablet 20 mg PO DAILY 03/19/25 03/28/25 History gabapentin 400 mg capsule 400 mg PO TID #270 caps 03/23/25 03/29/25 Rx linaclotide 290 mcg capsule 290 mcg PO QDAY #90 caps 03/26/25 03/26/25 Rx (Linzess) potassium chloride 20 mEq oral 20 meq PO BID #100 ea 04/15/25 Unknown Rx packet pantoprazole 40 mg tablet,delayed 40 mg PO DAILY #90 TABLETS 04/20/25 Unknown Rx release blood-glucose sensor (Dexcom G7 #1 ea 04/23/25 Unknown Rx Sensor device) blood-glucose,crop adjuster,cont #1 ea 04/23/25 Unknown Rx (Dexcom G7 Assembler Bicycle) blood sugar diagnostic (OneTouch #100 ea 04/27/25 Unknown Rx Verio test strips) hyoscyamine sulfate 0.125 mg tablet 0.125 mg PO BID-QID PRN dyspepsia 04/27/25 Unknown Rx #60 tabs lancets 30 gauge (OneTouch #200 ea 04/27/25 Unknown Rx UltraSoft 2 Lancet) sumatriptan succinate 100 mg tablet See Rx Instructions PO .COMPLEX 04/27/25 Unknown Rx #12 tabs ergocalciferol (vitamin D2) 1,250 1,250 mcg PO QWEEK #1 cap 05/12/25 Unknown Rx mcg (50,000 unit) capsule (Vitamin D2) folic acid 1 mg tablet 1 mg PO QDAY #30 tabs 05/12/25 Unknown Rx magnesium oxide 400 mg PO BID #60 tabs 05/12/25 Unknown Rx promethazine 25 mg rectal 25 mg MT Q6H PRN nausea and 05/12/25 Unknown Rx suppository vomiting #12 ea spironolactone 50 mg tablet 50 mg PO BID #60 tabs 05/12/25 Unknown Rx torsemide 20 mg tablet 20 mg PO QDAY #30 tabs 05/12/25 Unknown Rx indomethacin 50 mg capsule 50 mg PO TID PRN pain 05/17/25 Unknown History lorazepam 0.5 mg tablet (Ativan) 0.5 mg PO Q12H 05/17/25 Unknown History meclizine 25 mg tablet 25 mg PO BID PRN dizziness 05/17/25 Unknown History tizanidine 4 mg capsule 4 mg PO TID PRN muscle spasticity 05/17/25 Unknown History docusate sodium 100 mg capsule 100 mg PO DAILY PRN for 05/18/25 Unknown Rx constipation #30 caps amoxicillin 400 mg/5 mL oral 500 mg (6.25 mL) PO BID 7 days 05/26/25 Unknown Rx suspension #87.5 mL oxycodone 5 mg/5 mL oral solution 5 mg (5 mL) PO Q4-6H PRN pain 7 05/26/25 Unknown Rx days #100 mL aripiprazole 15 mg tablet 15 mg PO 05/29/25 Unknown History atogepant 60 mg tablet (Qulipta) 60 mg PO see md 05/29/25 Unknown History Held on 05/29/25. Instructions: pt chokes on it dulaglutide 1.5 mg/0.5 mL 1.5 mg subcut 05/29/25 Unknown History subcutaneous pen injector (Trulicity) erenumab-aooe 70 mg/mL 70 mg subcut .month 05/29/25 Unknown History subcutaneous auto-injector (Aimovig Autoinjector) lasmiditan 100 mg tablet (Reyvow) 100 mg PO BID PRN 05/29/25 Unknown History Allergy/AdvReac Type Severity Reaction Status Date / Time bee venom protein (honey Allergy Severe Anaphylaxis Verified 05/29/25 10:02 bee) (bee sting) ziprasidone (From Geodon) Allergy Severe facial Verified 05/29/25 10:02 swelling ciprofloxacin (From Cipro) Allergy Intermediate Angioedema Verified 05/29/25 10:02 levofloxacin (From Levaquin) Allergy Intermediate Angioedema Verified 05/29/25 10:02 adhesive tape Allergy Mild Rash Verified 05/29/25 10:02 latex Allergy Mild Rash Verified 05/29/25 10:02 Iodinated Contrast Media Allergy Hives Verified 05/29/25 10:02 ondansetron (From Zofran) Allergy Hives Verified 05/29/25 10:02 propranolol Allergy Angioedema Verified 05/29/25 10:02 midazolam (From Versed) AdvReac Severe Other Verified 05/29/25 10:02 haloperidol (From Haldol) AdvReac Other Verified 05/29/25 10:02 metoclopramide (From Reglan) AdvReac Other Verified 05/29/25 10:02 Family History Father Alcoholism Hypertension Thyroid disorder Mother Anxiety Autoimmune disorder Bleeding disorder Hypertension Mental disorder CVA (cerebral vascular accident) Suicide attempt Thyroid disorder Other Breast cancer Colon cancer Diabetes Heart disease Myocardial infarction Ovarian cancer Surgical History (Updated 05/29/25 @ 20:46 by Sienna Hatfield) PEG (percutaneous endoscopic gastrostomy) status S/P percutaneous endoscopic gastrostomy (PEG) tube placement History of vascular access device Port-A-Cath in place H/O hernia repair H/O wisdom tooth extraction H/O oophorectomy Hx of cholecystectomy H/O tubal ligation Social History adopted: No household members: children and none number of children: 2 current occupational status: unemployed pets and animals: No sexually active: No Smoking Status: Never smoker alcohol intake: never substance use type: does not use caffeine: No frequency: 3-4 times per week do you feel safe at home: Yes ROS Constitutional Constitutional: Reports anorexia and weight loss Eyes Eyes: Denies blurry vision ENT HEENT: Denies dysphagia Cardiovascular Cardiovascular: Denies chest pain Respiratory/Chest Respiratory/Chest: Denies cough Gastrointestinal Gastrointestinal: Reports abdominal pain, diarrhea, nausea and vomiting Genitourinary Genitourinary: Denies hematuria Integumentary Integumentary: Denies jaundice Neurologic Neurologic: Denies focal weakness Hematologic/Lymphatic Hematologic/Lymphatic: Denies easy bleeding Vital Signs Vital Signs Vital Signs: 05/29/25 09:54 05/29/25 10:01 05/29/25 10:07 Temperature 98.3 F 98.3 F Temperature Source Oral Oral Pulse Rate 105 H 106 H Respiratory Rate 16 16 Respiratory Effort Respiratory Depth Respiratory Pattern Blood Pressure 124/87 H 104/68 Blood Pressure Mean 99 80 Blood Pressure Source Blood Pressure Position Blood Pressure Location Pulse Ox 100 100 100 Oxygen Delivery Method Room Air Room Air 05/29/25 10:15 05/29/25 10:30 05/29/25 10:45 Temperature Temperature Source Pulse Rate Respiratory Rate Respiratory Effort Respiratory Depth Respiratory Pattern Blood Pressure 118/69 104/46 L 130/80 H Blood Pressure Mean 84 62 95 Blood Pressure Source Blood Pressure Position Blood Pressure Location Pulse Ox 100 100 97 Oxygen Delivery Method 05/29/25 11:00 05/29/25 11:15 05/29/25 11:16 Temperature Temperature Source Pulse Rate Respiratory Rate Respiratory Effort Respiratory Depth Respiratory Pattern Blood Pressure 144/96 H 131/91 H Blood Pressure Mean 110 103 Blood Pressure Source Blood Pressure Position Blood Pressure Location Pulse Ox 100 100 Oxygen Delivery Method 05/29/25 11:25 05/29/25 11:30 05/29/25 11:30 Temperature 98.2 F Temperature Source Oral Pulse Rate 89 Respiratory Rate 17 Respiratory Effort Respiratory Depth Respiratory Pattern Blood Pressure 131/91 H 135/92 H 135/92 H Blood Pressure Mean 104 104 104 Blood Pressure Source Blood Pressure Position Blood Pressure Location Pulse Ox 100 100 Oxygen Delivery Method Room Air 05/29/25 11:45 05/29/25 12:00 05/29/25 12:00 Temperature 98.4 F Temperature Source Oral Pulse Rate 96 Respiratory Rate 18 Respiratory Effort Respiratory Depth Respiratory Pattern Blood Pressure 139/114 H 128/67 H Blood Pressure Mean 124 87 Blood Pressure Source Blood Pressure Position Blood Pressure Location Pulse Ox 100 99 Oxygen Delivery Method Room Air 05/29/25 12:25 05/29/25 12:26 05/29/25 12:30 Temperature Temperature Source Pulse Rate Respiratory Rate Respiratory Effort Respiratory Depth Respiratory Pattern Blood Pressure 128/67 H 115/66 Blood Pressure Mean 80 82 Blood Pressure Source Blood Pressure Position Blood Pressure Location Pulse Ox 100 100 Oxygen Delivery Method 05/29/25 12:45 05/29/25 13:00 05/29/25 13:15 Temperature Temperature Source Pulse Rate Respiratory Rate Respiratory Effort Respiratory Depth Respiratory Pattern Blood Pressure 122/81 H Blood Pressure Mean 92 Blood Pressure Source Blood Pressure Position Blood Pressure Location Pulse Ox 97 100 99 Oxygen Delivery Method 05/29/25 13:30 05/29/25 13:45 05/29/25 14:00 Temperature Temperature Source Pulse Rate Respiratory Rate Respiratory Effort Respiratory Depth Respiratory Pattern Blood Pressure 118/81 H 120/72 Blood Pressure Mean 90 88 Blood Pressure Source Blood Pressure Position Blood Pressure Location Pulse Ox 96 100 96 Oxygen Delivery Method 05/29/25 14:15 05/29/25 14:30 05/29/25 14:45 Temperature Temperature Source Pulse Rate Respiratory Rate Respiratory Effort Respiratory Depth Respiratory Pattern Blood Pressure 124/64 H Blood Pressure Mean 82 Blood Pressure Source Blood Pressure Position Blood Pressure Location Pulse Ox 100 100 98 Oxygen Delivery Method 05/29/25 15:00 05/29/25 15:01 05/29/25 15:15 Temperature Temperature Source Pulse Rate Respiratory Rate Respiratory Effort Respiratory Depth Respiratory Pattern Blood Pressure 115/78 Blood Pressure Mean 89 Blood Pressure Source Blood Pressure Position Blood Pressure Location Pulse Ox 99 96 Oxygen Delivery Method 05/29/25 15:30 05/29/25 15:31 05/29/25 15:45 Temperature Temperature Source Pulse Rate Respiratory Rate Respiratory Effort Respiratory Depth Respiratory Pattern Blood Pressure 111/95 H Blood Pressure Mean 102 Blood Pressure Source Blood Pressure Position Blood Pressure Location Pulse Ox 100 100 Oxygen Delivery Method 05/29/25 16:00 05/29/25 16:01 05/29/25 16:14 Temperature Temperature Source Pulse Rate 101 H Respiratory Rate 17 Respiratory Effort Respiratory Depth Respiratory Pattern Blood Pressure 119/80 119/80 Blood Pressure Mean 91 93 Blood Pressure Source Blood Pressure Position Blood Pressure Location Pulse Ox 100 100 Oxygen Delivery Method 05/29/25 16:15 05/29/25 16:30 05/29/25 16:31 Temperature Temperature Source Pulse Rate Respiratory Rate Respiratory Effort Respiratory Depth Respiratory Pattern Blood Pressure 115/59 L Blood Pressure Mean 77 Blood Pressure Source Blood Pressure Position Blood Pressure Location Pulse Ox 99 83 Oxygen Delivery Method 05/29/25 16:45 05/29/25 17:00 05/29/25 17:15 Temperature Temperature Source Pulse Rate Respiratory Rate Respiratory Effort Respiratory Depth Respiratory Pattern Blood Pressure 111/72 Blood Pressure Mean 84 Blood Pressure Source Blood Pressure Position Blood Pressure Location Pulse Ox 100 99 98 Oxygen Delivery Method 05/29/25 17:30 05/29/25 17:31 05/29/25 17:45 Temperature Temperature Source Pulse Rate Respiratory Rate Respiratory Effort Respiratory Depth Respiratory Pattern Blood Pressure 109/76 Blood Pressure Mean 87 Blood Pressure Source Blood Pressure Position Blood Pressure Location Pulse Ox 100 100 Oxygen Delivery Method 05/29/25 18:00 05/29/25 18:00 05/29/25 18:01 Temperature Temperature Source Pulse Rate Respiratory Rate Respiratory Effort Respiratory Depth Respiratory Pattern Blood Pressure 110/82 H 110/82 H Blood Pressure Mean 91 91 Blood Pressure Source Blood Pressure Position Blood Pressure Location Pulse Ox 100 Oxygen Delivery Method 05/29/25 18:15 05/29/25 18:30 05/29/25 18:31 Temperature Temperature Source Pulse Rate Respiratory Rate Respiratory Effort Respiratory Depth Respiratory Pattern Blood Pressure 112/75 Blood Pressure Mean 87 Blood Pressure Source Blood Pressure Position Blood Pressure Location Pulse Ox 93 100 Oxygen Delivery Method 05/29/25 18:45 05/29/25 19:00 05/29/25 19:01 Temperature Temperature Source Pulse Rate Respiratory Rate Respiratory Effort Respiratory Depth Respiratory Pattern Blood Pressure 116/82 H Blood Pressure Mean 91 Blood Pressure Source Blood Pressure Position Blood Pressure Location Pulse Ox 98 100 Oxygen Delivery Method 05/29/25 19:12 05/29/25 19:15 05/29/25 19:30 Temperature 98.4 F Temperature Source Pulse Rate 101 H Respiratory Rate 17 Respiratory Effort Respiratory Depth Respiratory Pattern Blood Pressure 112/75 117/81 H Blood Pressure Mean 87 91 Blood Pressure Source Blood Pressure Position Blood Pressure Location Pulse Ox 98 100 Oxygen Delivery Method 05/29/25 19:31 05/29/25 20:56 05/29/25 23:05 Temperature 98.2 F 97.9 F Temperature Source Oral Oral Pulse Rate 101 H 99 Respiratory Rate 18 16 Respiratory Effort Respiratory Depth Respiratory Pattern Blood Pressure 120/67 140/90 H Blood Pressure Mean 84 106 Blood Pressure Source Monitor Monitor Blood Pressure Position Semi-Fowlers Semi-Fowlers Blood Pressure Location Right Arm Right Arm Pulse Ox 100 99 100 Oxygen Delivery Method Room Air Room Air 05/29/25 23:21 05/30/25 05:27 05/30/25 07:26 Temperature 97.9 F Temperature Source Oral Pulse Rate 103 H Respiratory Rate 16 Respiratory Effort Normal Non-Labored Respiratory Depth Normal Respiratory Pattern Normal Blood Pressure 119/59 L Blood Pressure Mean 79 Blood Pressure Source Monitor Blood Pressure Position Semi-Fowlers Blood Pressure Location Right Arm Pulse Ox 100 Oxygen Delivery Method Room Air Room Air Room Air Weight Weight: 189 lb 2.506 oz Body Mass Index (BMI) 35.7 Physical Exam Const oriented x3 and no apparent distress Resp normal respiratory effort Cardio regular rate GI soft to palpation GI Narrative: Tender near PEG site slight erythema at exit site and small amount of purulent drainage on gauze. PEG at 3.5 at skin?able to be spun easily Results Lab / Micro Data 05/30/25 05:20 05/30/25 05:20 Labs: Laboratory Results - last 24 hr 05/29/25 10:40: WBC 4.8, RBC 2.78 L, Hgb 8.0 L, Hct 24.1 L, MCV 86.7, MCH 28.8, MCHC 33.2, RDW Std Deviation 46.6 H, RDW Coeff of Millie 14.6, Plt Count 261, MPV 8.6, Immature Gran % (Auto) 0.400, Neut % (Auto) 53.8, Lymph % (Auto) 37.1, [place] % (Auto) 5.0, Eos % (Auto) 3.1, Baso % (Auto) 0.6, Absolute Neuts (auto) 2.6, Absolute Lymphs (auto) 1.78, Nucleated RBC % 0, Sodium 137, Potassium 4.5, Chloride 110 H, Carbon Dioxide 21.5, Anion Gap 5, BUN 12, Creatinine 0.71, Estim Creat Clear Calc 113.44, Est GFR (MDRD) Non-Af 116, BUN/Creatinine Ratio 17.3, Glucose 103 H, Calcium 7.7, Phosphorus 3.2, Magnesium 1.7, Total Bilirubin 0.22, AST 9, ALT 9, Alkaline Phosphatase 100, Total Protein 3.9 L, Albumin 1.8 L, Globulin 2.1 L, Albumin/Globulin Ratio 0.9, Lipase 7 L, Procalcitonin 0.06, Serum , Qual NEGATIVE 05/29/25 12:20: Urine Color Yellow, Urine Clarity Clear, Urine pH 8.0, Ur Specific [place] 1.010, Urine Protein Negative, Urine Glucose (UA) Normal, Urine Ketones Negative, Urine Occult Blood Negative, Urine Nitrite Negative, Urine Bilirubin Negative, Urine Urobilinogen Normal, Ur Leukocyte Esterase Negative, Urine RBC 0 SEEN, Urine WBC 0 SEEN, Ur Squamous Epith Cells 0-5 SEEN, Urine Bacteria 0 SEEN, Urine Mucus 0 SEEN 05/29/25 23:31: POC Glucose 153 H 05/30/25 05:20: WBC 8.4, RBC 2.80 L, Hgb 7.8 L, Hct 23.9 L, MCV 85.4, MCH 27.9, MCHC 32.6, RDW Std Deviation 44.9 H, RDW Coeff of Millie 14.3, Plt Count 345, MPV 8.8, Immature Gran % (Auto) 0.500, Neut % (Auto) 54.7, Lymph % (Auto) 38.5, [place] % (Auto) 5.9, Eos % (Auto) 0.2, Baso % (Auto) 0.2, Absolute Neuts (auto) 4.6, Absolute Lymphs (auto) 3.22, Nucleated RBC % 0, Sodium 136, Potassium 4.8, Chloride 109 H, Carbon Dioxide 22.6, Anion Gap 5, BUN 12, Creatinine 0.62 L, Estim Creat Clear Calc 128.36, Est GFR (MDRD) Non-Af 121, BUN/Creatinine Ratio 19.9, Glucose 78, Calcium 8.2, Total Bilirubin 0.28, AST 9, ALT 9, Alkaline Phosphatase 107 H, Total Protein 4.2 L, Albumin 2.0 L, Globulin 2.2, Albumin/Globulin Ratio 0.9 Imaging Radiology Impression Abdomen/Pelvis CT 05/29/25 10:10 IMPRESSION: Submucosal thickening and edema noted in multiple bowel loops consistent with diffuse enteritis. Multiple nondistended fluid-filled small bowel loops consistent with ileus. There is associated induration of the mesenteric and retroperitoneal fat and free fluid throughout the mesentery and into the pelvis. This is suggestive of peritonitis. Peg tube noted in satisfactory position Diffuse induration of the subcutaneous fat suggests anasarca or could be a sign of poor nutritional status. No suspicious solid organ abnormalities Left pleural effusion with associated atelectasis Reading Location: [id number] Abdomen CT 05/29/25 14:46 IMPRESSION: Repeat examination with oral contrast reveals no obstruction, colitis or abscess. Moderate free-fluid is again noted When the study has been repeated, the finding of possible wall thickening is not as prominent. Reading [facility] Assessment & Plan Assessment/Plan (1) Irritation around percutaneous endoscopic gastrostomy (PEG) tube site: PLAN: Plan Did personally review patient CT abdomen pelvis x 2. No plans for any acute surgical intervention. Discussed with patient she likely has infection at the PEG tube site. Will plan for some liquid antibiotics to be able to go through the PEG tube as well as a short dose of Lortab for pain control at home. Will have patient follow-up with Dr. Layton's office next week call for an appointment. Patient is agreeable with plan. Paz Padron M.D. Pager: [phone] [facility] [address] [place] [address], [facility], [address] [place] [address] Office: [phone] Charges/Coding Visit Charges Inpatient E&M: 59615 Subs Hosp L3
[2025-05-30 09:35] VITALS: BP 138/75; PULSE 85; RESP 16; TEMP 36.6; O2SAT 100
[2025-05-30] MEDS: Amox/Clav 400mg/5ml Susp 875 MG GT (10:51)
[2025-05-30 11:18] VITALS: BP 121/89; PULSE 111; RESP 16; TEMP 36.8; O2SAT 98
--- NOTE | 2025-05-30 11:52 | NURSING ---
pt is dressed and wanting to go home. family here to get pt. pt has no other ride home is not discharged. dr grove notified that pt paulette breakfast and wanting to go home, and that ride is here to get her.
[2025-05-30 12:05] VITALS: PULSE 101
--- NOTE | 2025-05-30 12:05 | PCM.DC.SUM ---
Providers Date of Admission: 05/29/25 Date of Discharge: 05/30/25 Primary Care Physician: MJ Fried Consultations 05/29/25 20:25 Consult: Gastroenterology Routine Consulting Provider: Na[facility] Reason for Consult: ? Pertonitis EMERGENT Consult: No Notified: Yes Date Notified: 05/29/25 Time Notified: 19:44 Method of Notification: ED Physician Initiated Consult: General Surgery Routine Consulting Provider: Paz Padron Reason for Consult: ? Peritonitis EMERGENT Consult: No MD Notified: Yes Date Notified: 05/29/25 Time Notified: 19:43 Method of Notification: ED Physician Initiated Reason For Visit: ABDOMINAL PAIN N/V Diagnosis Discharge Diagnosis (1) Irritation around percutaneous endoscopic gastrostomy (PEG) tube site: Status: Acute Code(s): K94.29 - Other complications of gastrostomy Medications at Discharge Home Medications epinephrine 0.3 mg/0.3 mL injection, auto-injector (EpiPen 2-Scout) 0.3 mg (0.3 mL) IM Q5-15M PRN anaphylaxis #2 ea 10/05/24 albuterol sulfate 90 mcg/actuation aerosol inhaler 2 puff inhalation Q6H PRN shortness of breath or wheezing #8.5 grams 11/19/24 sumatriptan succinate 6 mg/0.5 mL subcutaneous pen injector 6 mg subcut Q12H PRN MIGRAINE 12/11/24 zolpidem 12.5 mg tablet,extended release,multiphase (Ambien CR) 12.5 mg PO QHS PRN insomnia 12/18/24 famotidine 20 mg tablet 20 mg PO DAILY 03/19/25 gabapentin 400 mg capsule 400 mg PO TID #270 caps 03/23/25 linaclotide 290 mcg capsule (Linzess) 290 mcg PO QDAY #90 caps 03/26/25 potassium chloride 20 mEq oral packet 20 meq PO BID #100 ea 04/15/25 pantoprazole 40 mg tablet,delayed release 40 mg PO DAILY #90 TABLETS 04/20/25 blood-glucose sensor ([employer] G7 Sensor device) #1 ea 04/23/25 blood-glucose,press breaker,cont (Dexcom G7 Financial Services Professional) #1 ea 04/23/25 blood sugar diagnostic ([employer] Verio test strips) #100 ea 04/27/25 hyoscyamine sulfate 0.125 mg tablet 0.125 mg PO BID-QID PRN dyspepsia #60 tabs 04/27/25 lancets 30 gauge (OneTouch UltraSoft 2 Lancet) #200 ea 04/27/25 sumatriptan succinate 100 mg tablet See Rx Instructions PO .COMPLEX #12 tabs 04/27/25 ergocalciferol (vitamin D2) 1,250 mcg (50,000 unit) capsule (Vitamin D2) 1,250 mcg PO QWEEK #1 cap 05/12/25 folic acid 1 mg tablet 1 mg PO QDAY #30 tabs 05/12/25 magnesium oxide 400 mg PO BID #60 tabs 05/12/25 promethazine 25 mg rectal suppository 25 mg GA Q6H PRN nausea and vomiting #12 ea 05/12/25 spironolactone 50 mg tablet 50 mg PO BID #60 tabs 05/12/25 torsemide 20 mg tablet 20 mg PO QDAY #30 tabs 05/12/25 indomethacin 50 mg capsule 50 mg PO TID PRN pain 05/17/25 lorazepam 0.5 mg tablet (Ativan) 0.5 mg PO Q12H 05/17/25 meclizine 25 mg tablet 25 mg PO BID PRN dizziness 05/17/25 tizanidine 4 mg capsule 4 mg PO TID PRN muscle spasticity 05/17/25 docusate sodium 100 mg capsule 100 mg PO DAILY PRN for constipation #30 caps 05/18/25 aripiprazole 15 mg tablet 15 mg PO 05/29/25 atogepant 60 mg tablet (Qulipta) 60 mg PO see 05/29/25 dulaglutide 1.5 mg/0.5 mL subcutaneous pen injector (Trulicity) 1.5 mg subcut 05/29/25 erenumab-aooe 70 mg/mL subcutaneous auto-injector (Aimovig Autoinjector) 70 mg subcut .month 05/29/25 lasmiditan 100 mg tablet (Reyvow) 100 mg PO BID PRN 05/29/25 amoxicillin 400 mg-potassium clavulanate 57 mg/5 mL oral suspension 10 ml PO BID 5 days #100 mL 05/30/25 oxycodone 5 mg/5 mL oral solution 5 mg (5 mL) PO Q6H PRN pain 3 days #60 mL 05/30/25 Hospital Course Operations None Procedures None Summary of Care Provided Minutes Spent on Discharge: 45 Hospital Course: Patient is a 35-year-old female with an extensive past medical history as outlined was admitted to the ED on 05/29/2025 with a complaint of acute on chronic abdominal pain. She had recently had a PEG tube inserted 3 days prior to admission by gastroenterology it was a complicated procedure requiring surgical assistance. She subsequently felt well but said over the last 24 hours prior to admission she had nausea and emesis as well as generalized abdominal pain and loose stools. She also complained of drainage from the insertion site. She therefore called the lead pl sql developer and she was told to come into the ED. Urinalysis showed no evidence of UTI. Initial CT abdomen and pelvis obtained showed submucosal thickening and edema with multiple bowel loops present consistent with diffuse enteritis and multiple nondistended fluid-filled small bowel loops consistent with ileitis and associated induration of the mesenteric retroperitoneal fat and free fluid throughout the mesentery and into the pelvis suggestive of peritonitis. PEG tube was in satisfactory position and there was also diffuse induration of the subcutaneous fat suggestive of anasarca likely due to poor nutritional status and left lower effusion with associated atelectasis. General surgery recommended CT with oral contrast and this was done. Showed no evidence of obstruction, colitis or abscess and showed moderate fluid fluid with possible wall thickening with no findings of peritonitis. EKG showed no acute ST changes. She was admitted and started on IV vancomycin and Zosyn as well as pain meds. She was being managed for intractable abdominal pain in the setting of nausea and vomiting and recent PEG tube insertion. General surgery and gastroenterology were consulted. General surgery reviewed patient and general surgery thought she likely had an infection at the site of the PEG tube. General surgery for oral liquid Augmentin to go through the PEG tube as well as a short course of pain meds for pain control. Patient was discharged home per her request on 05/30/2025. She is follow-up with her primary care doctor and follow-up with general surgery and gastroenterology. She tolerated a diet before she went home. Patient seen and examined. Abdominal pain had improved and she had no other active complaints. Review of systems otherwise negative. Labs and vitals reviewed. Home medication reviewed and reconciled. Physical Exam Const alert, oriented x3 and no apparent distress Constitutional Narrative: Class III obesity. General Appearance: cooperative and comfortable Orientation / Consciousness: awake HEENT normocephalic, head/scalp atraumatic, hearing grossly normal bilaterally and moist oral mucous membranes Mouth: oral and palatal mucosa normal Eyes EOMs intact bilaterally and conjunctivae normal Neck supple and no JVD Resp normal respiratory effort, no retractions, no use of accessory muscles and clear to auscultation bilaterally Cardio regular rate, regular rhythm, S1 normal heart sound, S2 normal heart sound and no murmurs GI normal to inspection, nondistended, normoactive bowel sounds, soft to palpation, non-tender and non-distended GI Narrative: PEG tube in situ Extremity normal to inspection, full ROM and no clubbing, cyanosis or edema Skin no rashes or lesions noted Neuro oriented x3, CN's II-XII intact bilaterally, moves all extremities, no focal motor deficits and no sensory deficits noted Sensorium / Orientation: awake and alert Motor Exam: strength 5/5 throughout Psych affect normal Weight / BMI Weight Weight: 189 lb 2.506 oz Body Mass Index (BMI) 35.7 ABG / Lab / Microbiology Data 05/30/25 05:20 05/30/25 05:20 Laboratory: Laboratory Results - last 24 hr 05/29/25 10:40: Phosphorus 3.2, Magnesium 1.7, Procalcitonin 0.06 05/29/25 23:31: POC Glucose 153 H 05/30/25 05:20: WBC 8.4, RBC 2.80 L, Hgb 7.8 L, Hct 23.9 L, MCV 85.4, MCH 27.9, MCHC 32.6, RDW Std Deviation 44.9 H, RDW Coeff of Millie 14.3, Plt Count 345, MPV 8.8, Immature Gran % (Auto) 0.500, Neut % (Auto) 54.7, Lymph % (Auto) 38.5, Lipscomb % (Auto) 5.9, Eos % (Auto) 0.2, Baso % (Auto) 0.2, Absolute Neuts (auto) 4.6, Absolute Lymphs (auto) 3.22, Nucleated RBC % 0, Sodium 136, Potassium 4.8, Chloride 109 H, Carbon Dioxide 22.6, Anion Gap 5, BUN 12, Creatinine 0.62 L, Estim Creat Clear Calc 128.36, Est GFR (MDRD) Non-Af 121, BUN/Creatinine Ratio 19.9, Glucose 78, Calcium 8.2, Total Bilirubin 0.28, AST 9, ALT 9, Alkaline Phosphatase 107 H, Total Protein 4.2 L, Albumin 2.0 L, Globulin 2.2, Albumin/Globulin Ratio 0.9 Radiography Diagnostic Testing: Radiology Impression Abdomen CT 05/29/25 14:46 IMPRESSION: Repeat examination with oral contrast reveals no obstruction, colitis or abscess. Moderate free-fluid is again noted When the study has been repeated, the finding of possible wall thickening is not as prominent. Reading Location: [facility] D/C Instructions Discharge Activity: Return to Normal Activity Weight Bearing Status: Weight bearing as tolerated Call your doctor if you observe: Fever of 101 or Higher, Shortness of breath, Dizziness, Swelling in the ankles, Chest pain, Increased palpitations (irregular heartbeat) and Uncontrolled pain DC O2, CPAP, BIPAP Needs Home O2 Discharge instructions: No DC home with Oxygen: No Meaningful Use Info Meaningful Use Meaningful Use Diagnoses (Choose all that apply): None applicable Discharge Plan Admission Admit Date/Time: 05/29/25 19:41 Primary Reason for Your Visit: abdominal pain, infection at site of PEG tube Attending Provider: Melissa Howard Primary Care Provider: Rashawn Yip Consulting Providers: Kinjal,Asif; Paz Padron; Kasandra Purcell Instructions Patient Instructions: Abdominal Pain Discharge Orders/Prescriptions Prescriptions: New amoxicillin-pot clavulanate 400-57 mg/5 mL suspension for reconstitution 10 ml PO BID 5 Days Qty: 100 0RF oxycodone 5 mg/5 mL solution 5 mg PO Q6H PRN (Reason: pain) 3 Days Qty: 60 0RF Continued albuterol sulfate 90 mcg/actuation HFA aerosol inhaler 2 puff inhalation Q6H PRN (Reason: shortness of breath or wheezing) Qty: 8.5 0RF potassium chloride 20 mEq packet 20 meq PO BID Qty: 100 1RF lorazepam [Ativan] 0.5 mg tablet 0.5 mg PO Q12H meclizine 25 mg tablet 25 mg PO BID PRN (Reason: dizziness) indomethacin 50 mg capsule 50 mg PO TID PRN (Reason: pain) Rx Instructions: administer with food or milk tizanidine 4 mg capsule 4 mg PO TID PRN (Reason: muscle spasticity) sumatriptan succinate 6 mg/0.5 mL pen injector 6 mg SUBCUT Q12H PRN (Reason: MIGRAINE) zolpidem [Ambien CR] 12.5 mg tablet,ext release multiphase 12.5 mg PO QHS PRN (Reason: insomnia) aripiprazole 15 mg tablet 15 mg PO Trulicity 1.5 mg/0.5 mL pen injector 1.5 mg subcut Aimovig Autoinjector 70 mg/mL auto-injector 70 mg SUBCUT .month Patient Comments: [NO ORIGINAL SIG] Rx Instructions: pt takes on the 2nd Reyvow 100 mg tablet 100 mg PO BID PRN Qulipta 60 mg tablet 60 mg PO famotidine 20 mg tablet 20 mg PO DAILY epinephrine [EpiPen 2-Scout] 0.3 mg/0.3 mL auto-injector 0.3 mg IM Q5-15M PRN (Reason: anaphylaxis) Qty: 2 1RF Rx Instructions: do not exceed 3 doses per episode gabapentin 400 mg capsule 400 mg PO TID Qty: 270 0RF Linzess 290 mcg capsule 290 mcg PO QDAY Qty: 90 0RF Patient Comments: ran out, was to be delivered today pantoprazole 40 mg tablet,delayed release (DR/EC) 40 mg PO DAILY Qty: 90 1RF (DME) Dexcom G7 Sensor Device See Rx Instructions .Route Qty: 1 5RF Rx Instructions: As directed (DME) Dexcom G7 Financial Services Professional Misc See Rx Instructions .Route Qty: 1 5RF Rx Instructions: As directed (DME) lancets [OneTouch UltraSoft 2 Lancet] 30 gauge misc See Rx Instructions .Route Qty: 200 0RF Rx Instructions: Use once daily to check blood glucose level (DME) OneTouch Verio test strips Strip See Rx Instructions .Route Qty: 100 0RF Rx Instructions: Use one strip once per day to check blood glucose level sumatriptan succinate 100 mg tablet See Rx Instructions PO .COMPLEX Qty: 12 0RF Rx Instructions: take 1 tab at onset of headache; if no relief, may repeat 1 tab after at least 2 hrs; max = 2 tabs/24 hrs PO hyoscyamine sulfate 0.125 mg tablet 0.125 mg PO BID-QID PRN (Reason: dyspepsia) Qty: 60 1RF promethazine 25 mg suppository 25 mg GA Q6H PRN (Reason: nausea and vomiting) Qty: 12 1RF ergocalciferol (vitamin D2) [Vitamin D2] 1,250 mcg (50,000 unit) capsule 1,250 mcg PO QWEEK Qty: 1 0RF spironolactone 50 mg tablet 50 mg PO BID Qty: 60 0RF magnesium oxide 400 mg magnesium tablet 400 mg PO BID Qty: 60 0RF torsemide 20 mg tablet 20 mg PO QDAY Qty: 30 0RF folic acid 1 mg tablet 1 mg PO QDAY Qty: 30 0RF docusate sodium 100 mg capsule 100 mg PO DAILY PRN (Reason: for constipation) Qty: 30 0RF Discontinued oxycodone 5 mg/5 mL solution 5 mg PO Q4-6H PRN (Reason: pain) 7 Days Qty: 100 0RF amoxicillin 400 mg/5 mL suspension for reconstitution 500 mg PO BID 7 Days Qty: 87.5 0RF Referrals / Follow Up: Asif Layton DO [Med Staff - Active Staff, Gastroenterology] Referral Note: f/u this week for peg tube evaluation-call for appt Rashawn Yip PA [Primary Care Provider, Internal Medicine] Disposition Disposition (needs filled in before D/C Order can be placed): Home, Self Care Charges/Coding Visit Charges Inpatient E&M: 79990 Disch Hosp >30min
== END 2025-05-30 12:16 | disposition home or self-care (01) ==
LOC: ED 14:30 → MS3 20:11
PROVIDERS: Admitting Provider Family Medicine; Emergency Provider Emergency Medicine; PCP Physician Assistant; Visit Provider Student in an Organized Health Care Education/Training Program
DX: K94.29 Other complications of gastrostomy (principal); D68.2 Hereditary deficiency of other clotting factors; F31.9 Bipolar disorder, unspecified; K56.7 Ileus, unspecified; K65.9 Peritonitis, unspecified; E11.40 Type 2 diabetes mellitus with diabetic neuropathy, unspecified; Z79.85 Long-term (current) use of injectable non-insulin antidiabetic drugs; Z86.711 Personal history of pulmonary embolism; F41.9 Anxiety disorder, unspecified; Z86.718 Personal history of other venous thrombosis and embolism; R18.8 Other ascites; K21.9 Gastro-esophageal reflux disease without esophagitis; Z79.899 Other long term (current) drug therapy; I10 Essential (primary) hypertension; E66.9 Obesity, unspecified; Z68.36 Body mass index [BMI] 36.0-36.9, adult
CPT/HCPCS: 36591; 74176; 74177; 80053; 81001; 82962; 83690; 83735; 84100; 84145; 84703; 85025; 94668; 96365; 96366; 96367; 96372; 96375; 96376; 99221; 99285; Q9967; A4216; G0378; J3030

== ENCOUNTER 2025-06-02 10:19 | Emergency (ER) | payer MEDICAID, SELFPAY ==
[2025-06-02 10:21] VITALS: BP 106/73; PULSE 98; RESP 16; TEMP 36.6; O2SAT 100; BMI 37.2
[2025-06-02 10:23] VITALS: BP 106/73; PULSE 98; RESP 16; TEMP 36.6; O2SAT 100
--- NOTE | 2025-06-02 10:39 | EX.ED.DYSGE1 ---
HPI History of Present Illness Chief Complaint: Other, Pain/Inj Informant: patient Narrative Narrative: 35-year-old female presented to the emergency room for evaluation of her PEG tube. Patient recently underwent PEG tube placement with GI. She was admitted in the hospital postoperatively and saw GI yesterday. Was prescribed clindamycin. Patient states that she was visiting with her home health aide this morning and ended up speaking with the medical technical writer at her patient intake representative office and decided to come to emergency. Patient states that she has drainage from the site. She states she is still having pain particularly with using the PEG tube. I reviewed the patient's recent ED visit hospital stay and GI visit from yesterday. [facility] Medical History Walker as ambulation aid CAP (community acquired pneumonia) Hx of substance abuse Bipolar disorder Kidney stones GERD (gastroesophageal reflux disease) Non-smoker Generalized weakness Anemia Easy bruising Dietary restriction Implantable loop recorder present Wears glasses Anxiety MRSA infection Substance abuse History of steroid therapy Diabetes Injury of head and neck History of IBS Gastric reflux Neuropathy delivery delivered Arthritis Prolonged QT interval PCOS (polycystic ovarian syndrome) Factor V Leiden Anxiety Depression Pulmonary embolism DVT (deep venous thrombosis) TIA (transient ischemic attack) Ovarian cyst Home Medications ?Medication ?Instructions ?Recorded ?Last Taken ?Type epinephrine 0.3 mg/0.3 mL 0.3 mg (0.3 mL) IM Q5-15M PRN 10/05/24 Unknown Rx injection, auto-injector (EpiPen anaphylaxis #2 ea 2-Scout) albuterol sulfate 90 mcg/actuation 2 puff inhalation Q6H PRN 11/19/24 Unknown Rx aerosol inhaler shortness of breath or wheezing #8.5 grams sumatriptan succinate 6 mg/0.5 mL 6 mg subcut Q12H PRN MIGRAINE 12/11/24 Unknown History subcutaneous pen injector zolpidem 12.5 mg tablet,extended 12.5 mg PO QHS PRN insomnia 12/18/24 03/28/25 History release,multiphase (Ambien CR) famotidine 20 mg tablet 20 mg PO DAILY 03/19/25 03/28/25 History gabapentin 400 mg capsule 400 mg PO TID #270 caps 03/23/25 03/29/25 Rx linaclotide 290 mcg capsule 290 mcg PO QDAY #90 caps 03/26/25 03/26/25 Rx (Linzess) potassium chloride 20 mEq oral 20 meq PO BID #100 ea 04/15/25 Unknown Rx packet pantoprazole 40 mg tablet,delayed 40 mg PO DAILY #90 TABLETS 04/20/25 Unknown Rx release blood-glucose sensor (Dexcom G7 #1 ea 04/23/25 Unknown Rx Sensor device) blood-glucose,director veterinary,cont #1 ea 04/23/25 Unknown Rx (Dexcom G7 Craft Center Director) blood sugar diagnostic (OneTouch #100 ea 04/27/25 Unknown Rx Verio test strips) hyoscyamine sulfate 0.125 mg tablet 0.125 mg PO BID-QID PRN dyspepsia 04/27/25 Unknown Rx #60 tabs lancets 30 gauge (OneTouch #200 ea 04/27/25 Unknown Rx UltraSoft 2 Lancet) ergocalciferol (vitamin D2) 1,250 1,250 mcg PO QWEEK #1 cap 05/12/25 Unknown Rx mcg (50,000 unit) capsule (Vitamin D2) folic acid 1 mg tablet 1 mg PO QDAY #30 tabs 05/12/25 Unknown Rx magnesium oxide 400 mg PO BID #60 tabs 05/12/25 Unknown Rx promethazine 25 mg rectal 25 mg IA Q6H PRN nausea and 05/12/25 Unknown Rx suppository vomiting #12 ea spironolactone 50 mg tablet 50 mg PO BID #60 tabs 05/12/25 Unknown Rx torsemide 20 mg tablet 20 mg PO QDAY #30 tabs 05/12/25 Unknown Rx indomethacin 50 mg capsule 50 mg PO TID PRN pain 05/17/25 Unknown History lorazepam 0.5 mg tablet (Ativan) 0.5 mg PO Q12H 05/17/25 Unknown History meclizine 25 mg tablet 25 mg PO BID PRN dizziness 05/17/25 Unknown History tizanidine 4 mg capsule 4 mg PO TID PRN muscle spasticity 05/17/25 Unknown History docusate sodium 100 mg capsule 100 mg PO DAILY PRN for 05/18/25 Unknown Rx constipation #30 caps aripiprazole 15 mg tablet 15 mg PO 05/29/25 Unknown History atogepant 60 mg tablet (Qulipta) 60 mg PO see 05/29/25 Unknown History dulaglutide 1.5 mg/0.5 mL 1.5 mg subcut 05/29/25 Unknown History subcutaneous pen injector (Trulicity) erenumab-aooe 70 mg/mL 70 mg subcut .month 05/29/25 Unknown History subcutaneous auto-injector (Aimovig Autoinjector) lasmiditan 100 mg tablet (Reyvow) 100 mg PO BID PRN 05/29/25 Unknown History amoxicillin 400 mg-potassium 10 ml PO BID 5 days #100 mL 05/30/25 Unknown Rx clavulanate 57 mg/5 mL oral suspension oxycodone 5 mg/5 mL oral solution 5 mg (5 mL) PO Q6H PRN pain 3 days 05/30/25 Unknown Rx #60 mL sumatriptan succinate 100 mg tablet See Rx Instructions PO .COMPLEX 06/01/25 Unknown Rx #12 tabs clindamycin HCl 300 mg capsule 300 mg PO Q6H 7 days #28 caps 06/02/25 Unknown Rx (Cleocin HCl) Allergy/AdvReac Type Severity Reaction Status Date / Time bee venom protein (honey Allergy Severe Anaphylaxis Verified 05/29/25 10:02 bee) (bee sting) ziprasidone (From Geodon) Allergy Severe facial Verified 05/29/25 10:02 swelling ciprofloxacin (From Cipro) Allergy Intermediate Angioedema Verified 05/29/25 10:02 levofloxacin (From Levaquin) Allergy Intermediate Angioedema Verified 05/29/25 10:02 adhesive tape Allergy Mild Rash Verified 05/29/25 10:02 latex Allergy Mild Rash Verified 05/29/25 10:02 Iodinated Contrast Media Allergy Hives Verified 05/29/25 10:02 ondansetron (From Zofran) Allergy Hives Verified 05/29/25 10:02 propranolol Allergy Angioedema Verified 05/29/25 10:02 midazolam (From Versed) AdvReac Severe Other Verified 05/29/25 10:02 haloperidol (From Haldol) AdvReac Other Verified 05/29/25 10:02 metoclopramide (From Reglan) AdvReac Other Verified 05/29/25 10:02 Family History Father Alcoholism Hypertension Thyroid disorder Mother Anxiety Autoimmune disorder Bleeding disorder Hypertension Mental disorder CVA (cerebral vascular accident) Suicide attempt Thyroid disorder Other Breast cancer Colon cancer Diabetes Heart disease Myocardial infarction Ovarian cancer Surgical History PEG (percutaneous endoscopic gastrostomy) status S/P percutaneous endoscopic gastrostomy (PEG) tube placement History of vascular access device Port-A-Cath in place H/O hernia repair H/O wisdom tooth extraction H/O oophorectomy Hx of cholecystectomy H/O tubal ligation Social History adopted: No household members: children and none number of children: 2 current occupational status: unemployed pets and animals: No sexually active: No Smoking Status: Never smoker alcohol intake: never substance use type: does not use caffeine: No frequency: 3-4 times per week do you feel safe at home: Yes ROS ROS ED Constitutional Constitutional ED: Denies chills, fever(s) or weight loss Eyes Eyes: Denies change in vision or diplopia ENT ENT ED: Denies ear pain, rhinorrhea or sore throat Cardiovascular Cardiovascular: Denies chest pain, orthopnea, palpitations or racing heartbeat Respiratory/Chest Respiratory/Chest: Denies cough, dyspnea or orthopnea Gastrointestinal Gastrointestinal: Reports abdominal pain and nausea Genitourinary Genitourinary ED: Denies dysuria, hematuria or urinary frequency Musculoskeletal Musculoskeletal: Denies arthralgias or myalgias Integumentary Denies abscess or rash Neurologic Neurologic: Denies headache(s) or weakness Psychiatric Psychiatric: Denies anxiety, depression, suicidal ideation or suicidal thoughts Endocrine Endocrinology: Denies polydipsia, polyphagia or polyuria Allergic/Immunologic Allergic/Immunologic ED: Denies mouth swelling, tongue swelling or urticaria EXAM Physical Exam Const Vital Signs: 06/02/25 10:21 06/02/25 10:23 06/02/25 10:24 Temperature 98 F 98 F Temperature Source Oral Oral Pulse Rate 98 98 Respiratory Rate 16 16 Respiratory Effort Normal Non-Labored Respiratory Pattern Normal Blood Pressure 106/73 106/73 Blood Pressure Mean 84 84 Pulse Ox 100 100 Oxygen Delivery Method Room Air Room Air Positive well nourished and well developed General Appearance ED: well developed and pallor HEENT Reports normocephalic, head/scalp atraumatic and moist mucous membranes Eyes PERRL and EOMs intact bilaterally Neck no lymphadenopathy, supple and no JVD Resp normal respiratory effort and clear to auscultation bilaterally Cardio regular rate, regular rhythm and no murmurs GI GI Narrative: There is no evidence that I can see the skin of cellulitis. There is some mild irritation at the PEG tube site. There is a clear to yellow drainage at the insertion site. This appears to be more of a physiologic drainage. There is no foul smell. Patient is diffusely tender in her abdomen. Palpation: soft Back/Spine no CVA tenderness and normal ROM Extremity normal to inspection General Extremety ED: Negative for edema General Extremity: Negative for edema Neuro oriented x3 and CN's II-XII intact bilaterally Sensorium / Orientation: alert Motor Exam: strength 5/5 throughout Psych mental status grossly normal Mood & Affect: Negative for depressed or tearful Skin no rashes or lesions noted and no wounds General Skin Exam: pallor MDM MDM MDM Narrative Medical decision making narrative: Differential diagnosis includes but not limited to anxiety about health cellulitis peritonitis bowel obstruction PEG tube dislodgment abscess Based on the physical exam I do not feel that the patient has a clear PEG tube site infection. I do not see skin cellulitis. The drainage that she points to appears to be more physiologic from the recent insertion. Patient was advised to continue her home care instructions. At this point she then states that nobody is taking her seriously and that she needs to speak to a patient advocate. She states that she has not had any blood work done (nor do I feel that any is indicated at this time). Patient states she wants to be transferred to another hospital I do not feel that that is appropriate. I informed her that she is more than welcome to go to another facility and get their opinion but I do not believe she needs to be emergently transferred. History & Record Review Discussion w/independent historian: Patient Additional record(s) reviewed:: Prior inpatient record, Prior outpatient record, Prior ED visit and Prior labs Discharge Plan Triage Chief Complaint: Other, Pain/Inj ED Provider: Jose Holder Dx/Rx/DC Orders Clinical Impression: Irritation around percutaneous endoscopic gastrostomy (PEG) tube site Prescriptions: No Action albuterol sulfate 90 mcg/actuation HFA aerosol inhaler 2 puff inhalation Q6H PRN (Reason: shortness of breath or wheezing) Qty: 8.5 0RF potassium chloride 20 mEq packet 20 meq PO BID Qty: 100 1RF lorazepam [Ativan] 0.5 mg tablet 0.5 mg PO Q12H meclizine 25 mg tablet 25 mg PO BID PRN (Reason: dizziness) indomethacin 50 mg capsule 50 mg PO TID PRN (Reason: pain) Rx Instructions: administer with food or milk tizanidine 4 mg capsule 4 mg PO TID PRN (Reason: muscle spasticity) sumatriptan succinate 6 mg/0.5 mL pen injector 6 mg SUBCUT Q12H PRN (Reason: MIGRAINE) zolpidem [Ambien CR] 12.5 mg tablet,ext release multiphase 12.5 mg PO QHS PRN (Reason: insomnia) aripiprazole 15 mg tablet 15 mg PO Trulicity 1.5 mg/0.5 mL pen injector 1.5 mg subcut Aimovig Autoinjector 70 mg/mL auto-injector 70 mg SUBCUT .month Patient Comments: [NO ORIGINAL SIG] Rx Instructions: pt takes on the 2nd Reyvow 100 mg tablet 100 mg PO BID PRN Qulipta 60 mg tablet 60 mg PO amoxicillin-pot clavulanate 400-57 mg/5 mL suspension for reconstitution 10 ml PO BID 5 Days Qty: 100 0RF oxycodone 5 mg/5 mL solution 5 mg PO Q6H PRN (Reason: pain) 3 Days Qty: 60 0RF famotidine 20 mg tablet 20 mg PO DAILY epinephrine [EpiPen 2-Scout] 0.3 mg/0.3 mL auto-injector 0.3 mg IM Q5-15M PRN (Reason: anaphylaxis) Qty: 2 1RF Rx Instructions: do not exceed 3 doses per episode gabapentin 400 mg capsule 400 mg PO TID Qty: 270 0RF Linzess 290 mcg capsule 290 mcg PO QDAY Qty: 90 0RF Patient Comments: ran out, was to be delivered today pantoprazole 40 mg tablet,delayed release (DR/EC) 40 mg PO DAILY Qty: 90 1RF (DME) Dexcom G7 Sensor Device See Rx Instructions .Route Qty: 1 5RF Rx Instructions: As directed (DME) Dexcom G7 Craft Center Director Misc See Rx Instructions .Route Qty: 1 5RF Rx Instructions: As directed (DME) lancets [OneTouch UltraSoft 2 Lancet] 30 gauge misc See Rx Instructions .Route Qty: 200 0RF Rx Instructions: Use once daily to check blood glucose level (DME) OneTouch Verio test strips Strip See Rx Instructions .Route Qty: 100 0RF Rx Instructions: Use one strip once per day to check blood glucose level hyoscyamine sulfate 0.125 mg tablet 0.125 mg PO BID-QID PRN (Reason: dyspepsia) Qty: 60 1RF promethazine 25 mg suppository 25 mg IA Q6H PRN (Reason: nausea and vomiting) Qty: 12 1RF ergocalciferol (vitamin D2) [Vitamin D2] 1,250 mcg (50,000 unit) capsule 1,250 mcg PO QWEEK Qty: 1 0RF spironolactone 50 mg tablet 50 mg PO BID Qty: 60 0RF magnesium oxide 400 mg magnesium tablet 400 mg PO BID Qty: 60 0RF torsemide 20 mg tablet 20 mg PO QDAY Qty: 30 0RF folic acid 1 mg tablet 1 mg PO QDAY Qty: 30 0RF docusate sodium 100 mg capsule 100 mg PO DAILY PRN (Reason: for constipation) Qty: 30 0RF sumatriptan succinate 100 mg tablet See Rx Instructions PO .COMPLEX Qty: 12 0RF Rx Instructions: take 1 tab at onset of headache; if no relief, may repeat 1 tab after at least 2 hrs; max = 2 tabs/24 hrs PO clindamycin HCl [Cleocin HCl] 300 mg capsule 300 mg PO Q6H 7 Days Qty: 28 0RF Primary Care Provider: Rashawn Yip Referrals: Rashawn Yip PA [Primary Care Provider, Internal Medicine] Activity Restrictions/Additional Instructions: Take the medications you were prescribed. Follow-up with your doctors as scheduled Print Language: Amharic Disposition Disposition: Home, Self Care
[2025-06-02 11:15] VITALS: BP 106/73; PULSE 98; RESP 16; TEMP 36.6; O2SAT 100
--- NOTE | 2025-06-02 11:15 | ED.RN ---
Pt asked for a pt advocate after seeing DR Holder. She said that DR Holder was only in the room for 2 minutes and refused to do any tests or xrays to see if her peg tube is infected. She said she was told by her home health and Dr Lucas office to come in this morning to see if it was infected. Dr Holder stated that he looked at the site and didn't feel it was infected, the pt is already on antibiotics and sees Dr Layton. Also per Dr Holder, there was an issue at Dr Lucas office yesterday. Pt states that I feel like it is a personal issue with Dr Holder. She said that she feels like every time she has him he doesn't treat her appropriately. She asked about seeing another dr and was told that we dont usually do that and
--- NOTE | 2025-06-02 11:24 | ED.RN ---
Pt is upset with Dr Holder and his care. She stated that he was only in the room for a total of 2 minutes and that he just looked at the site. She wanted labs and xrays. He said he wasn't going to do that. He told her that she is already on antibiotics and also sees Dr Layton as well. Pt asked to speak with the patient advocate. She said that she feels like it is a personal conflict between her and Dr Holder. She said every time he sees her that he doesn't treat her appropriately. Pt said she knows that she is difficult to deal with sometimes and that she gets frustrated about her care. I didn't choose this. I dont know why home health and Dr Lucas office would send me here if I don't need to be here. I just dont feel comfortable leaving here without seeing a patient advocate. I called Jasmin who is out today and Aftab is filling in. Aftab in currently in the department and will see the patient. Pt is aware.
--- NOTE | 2025-06-02 12:15 | CM.ED ---
Social work 1115: SW received call from Mercedes, discharge funeral planning counselor. Call was regarding Mercedes speaking with patient's [facility], [facility]. Per Mercedes, CHN is concerned that patient is not appropriate for [facility] and needs to go to a SNF. At this point, Mercedes was updated by SW that patient was likely going to be leaving to go to another ED due to not liking the care patient was receiving at [facility]. About 1145: SW was informed of patient's concerns with doctor care and desire to speak to patient advocate. George, epic director Management, asked this SW to speak with patient along with George due to patient having an EDCP. SW entered room with George, introducing self and role at [facility]. Patient was observed sitting in a chair along the wall. Patient expressed frustrations with Dr Holder's care of patient over the years specifically and patient expressed being confused why patient was being treated poorly in the ED when patient was told by two different professionals (Dr Layton and [facility] nurse) to come to the ED for help. Patient expressed being on 3 different antibiotics and likely being dropped by patient's C ([facility]) for unknown reasons. George and KIM utilized active listening and empathic support throughout time spent with patient. George stated ability to call GI to possibly expedite patient's appointment date. After George left the room, KIM inquired more about CHN. Per patient, CHN was set up by patient's hospitalization at [facility] and is supposed to be sending an RN, PT, and OT out. Patient stated an RN is only coming once per week with no other services coming. Patient stated frustration with [facility] not being able to find a [facility] who would accept patient and patient was being denied SNFs because of the cost of my meds. Patient stated not wanting to go to a SNF anyway because I can care for myself just fine. It just should not hurt putting nutrition in my tube. Patient stated living in [facility]'s apartments for a year and a half now and having a [facility] adult shoe caser. Patient provided permission for SW to call the CM or CHN to discuss further if necessary. Patient stated patient's cousin would be arriving soon to take patient to another ED for a second opinion. SW stated this was patient's right and SW wanted patient to seek healthcare and second opinions as needed. 1215: received from adult shoe caser from [facility], Mario (ph: [phone]) at 1128. Mario expressed that patient was in the ED and was only here because the GI doctor and [facility] RN told her to come. Mario expressed that patient informed Mario via text about the care patient received from the doctor and Mario asked this SW to advocate for patient because patient's presentation was medically related rather than mental health related. 1820: due to busy day in the ED, KIM was unable to call Mario back within business hours. KIM did return Mario's call at this time and left a VM stating KIM would be back in the office on Saturday if Mario wanted to call back and talk then. SW did express that SW was in patient's room at the time of Mario's call and addressing patient concerns, advocating for patient, etc. SW to await Mario's call back on Saturday06/04/25 if needed. Elsie Fraser, SHEAR HELPER, REVENUE CYCLE MANAGER
--- NOTE | 2025-06-02 12:21 | ED.RN ---
Ashley from home health called and stated that they are not equiped to deal with pt. Per her, they have only had her 2 weeks and every time they are at her house it is a trainwreck. Ashley suggested a long-term. I explained that the pt wouldn't qualify for a long-term because she can take care of herself but she chooses not to. Ashley stated that she had talked to Merari because pt had said that she didn't qualify for a long-term due to the an of her medications. Merari had also told Ashley this is not the case. Ashley was made aware of pts care plan at the ED and frequent visits to ED and Dr Friends office. Ashley asked if we could address the mental health aspect of the pt. I told Ashley that I would address it with Nic ALVAREZ. Nic was made aware and will be calling the counseling center to address this.
== END 2025-06-02 12:26 | disposition home or self-care (01) ==
PROVIDERS: Emergency Provider Emergency Medicine; PCP Physician Assistant; Visit Provider Emergency Medicine
DX: K94.29 Other complications of gastrostomy (principal); E11.9 Type 2 diabetes mellitus without complications; K21.9 Gastro-esophageal reflux disease without esophagitis; R10.9 Unspecified abdominal pain
CPT/HCPCS: 99284

== ENCOUNTER 2025-06-21 09:48 | Day surgery (SDC) | payer MEDICAID, SELFPAY ==
--- NOTE | 2025-06-14 09:26 | NS ---
06/14/25: Called patient to schedule follow-up appointment. Scheduled for 06/24/25 at 11am. Asked it patient was tolerating tube feeds. States things had been going well but yesterday she had stomach pain the entire time tube feeds were infusing. She is unsure why she was having so much pain when she didn't change the rate of feeds or volume compared to previous day. Clare asked about an update on backpack for Infinity pump. KATHERINE called [facility] on 06/09 and left a voicemail asking that they ship the backpack to [facility]. Fátima Zamora RDN, LD
--- NOTE | 2025-06-18 13:52 | PAT.ANE_ITS ---
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 When Was Last Pacemaker Check QUESTION #4 FULL TEXT: You/Your Family Experience fever (hyperthermia) with Anesthesia Last Oral Intake Last Oral intake: Last Oral Intake NPO since Meds taken in AM with sips of water? Meds patient instructed to take am of surgery PONV PONV - architectural engineering teacher: PONV - architectural engineering teacher Female Yes 06/18/25 13:25 HX of Motion Sickness Yes 06/18/25 13:25 HX of N/V After Surgery Yes 06/18/25 13:25 Non-Smoker Yes 06/18/25 13:25 Duration of Surgery greater No 06/18/25 13:25 than 60 minutes Number of Risk Factors 4 06/18/25 13:25 PONV Score Severe Risk 06/18/25 13:25 Height & Weight Height & Weight: Anesthesia: Height & Weight Height 5 ft 1.02 in 06/14/25 10:39 Respiratory Assessment Respiratory Assessment - architectural engineering teacher: Respiratory Tract Infection Hx - architectural engineering teacher Hx Respiratory Tract Infection No 06/18/25 13:25 STOP Sleep Apnea STOP Sleep Apnea - architectural engineering teacher: STOP Sleep Apnea - architectural engineering teacher Hx Hypertension No 06/18/25 13:25 Hx Sleep Apnea No 06/18/25 13:25 CPAP No 05/29/25 20:47 BIPAP Do you snore loudly (louder No 06/18/25 13:25 than talking or can be heard Do you often feel tired/ No 06/18/25 13:25 fatigued/ sleepy during daytime? Has anyone observed you stop No 06/18/25 13:25 breathing during sleep? STOP Results Negative 06/18/25 13:25 QUESTION #5 FULL TEXT : Do you snore loudly (louder than talking or can be h eard through closed doors)? 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 Specify any problems Hx of Preganancy in last 3 No 06/18/25 13:25 Months Nurse Filling Out Transfusion JZOLLINGE 06/18/25 13:25 & Questions: Date: 06/18/25 06/18/25 13:25 Time: 06/18/25 13:25 Patient unable to answer at this time (ie. confused, unrespo /Reproduction History /Reproductive History - architectural engineering teacher: /Reproductive Hx- architectural engineering teacher Hx Now No 06/18/25 13:25 Gestational Age (in weeks): EDC: Hx Hx Para Hx Section SAB No 06/18/25 13:25 Does the father of the baby or his family experience fever w Father of the baby Malignant Hypertension history comment [facility] Medical History (Updated 06/10/25 @ 00:01 by Gordo Aguirre) Irritation around percutaneous endoscopic gastrostomy (PEG) tube site Walker as ambulation aid CAP (community acquired pneumonia) Hx of substance abuse Bipolar disorder Kidney stones GERD (gastroesophageal reflux disease) Non-smoker Generalized weakness Anemia Easy bruising Dietary restriction Implantable loop recorder present Wears glasses Anxiety MRSA infection Substance abuse History of steroid therapy Diabetes Injury of head and neck History of IBS Gastric reflux Neuropathy delivery delivered Arthritis Prolonged QT interval PCOS (polycystic ovarian syndrome) Factor V Leiden Anxiety Depression Pulmonary embolism DVT (deep venous thrombosis) TIA (transient ischemic attack) Ovarian cyst Home Medications ?Medication ?Instructions ?Recorded ?Last Taken ?Type epinephrine 0.3 mg/0.3 mL 0.3 mg (0.3 mL) IM Q5-15M IA N 10/05/24 Unknown Rx injection, auto-injector (EpiPen anaphylaxis #2 ea 2-Scout) albuterol sulfate 90 mcg/actuation 2 puff inhalation Q 6H PRN 11/19/24 Unknown Rx aerosol inhaler shortness of breath or wheez ing #8.5 grams sumatriptan succinate 6 mg/0.5 mL 6 mg subcut Q12H PRN MIGRAINE 12/11/24 Unknown History subcutaneous pen injector zolpidem 12.5 mg tablet,extended 12.5 mg PO QHS PRN in somnia 12/18/24 03/28/25 History release,multiphase (Ambien CR) linaclotide 290 mcg capsule 290 mcg PO QDAY #90 caps 0 03/26/25 03/26/25 Rx (Linzess) potassium chloride 20 mEq oral 20 meq PO BID #100 ea 1 Unknown Rx packet pantoprazole 40 mg tablet,delayed 40 mg PO DAILY #90 T ABLETS 04/20/25 Unknown Rx release blood-glucose sensor (Dexcom G7 #1 ea 04/23/25 Unknown Rx Sensor device) blood-glucose,chief of hospital medicine,cont #1 ea 04/23/25 Unknown Rx (Dexcom G7 Chartered Financial Analyst) blood sugar diagnostic (OneTouch #100 ea 04/27/25 Unkn own Rx Verio test strips) lancets 30 gauge (OneTouch #200 ea 04/27/25 Unknown Rx UltraSoft 2 Lancet) ergocalciferol (vitamin D2) 1,250 1,250 mcg PO QWEEK # 1 cap 05/12/25 Unknown Rx mcg (50,000 unit) capsule (Vitamin D2) folic acid 1 mg tablet 1 mg PO QDAY #30 tabs Unknown Rx magnesium oxide 400 mg PO BID #60 tabs 05/12 Unknown Rx spironolactone 50 mg tablet 50 mg PO BID #60 tabs 04/15 04/08 Unknown Rx torsemide 20 mg tablet 20 mg PO QDAY #30 tabs 05/12 Unknown Rx indomethacin 50 mg capsule 50 mg PO TID PRN pain 05/17 Unknown History lorazepam 0.5 mg tablet (Ativan) 0.5 mg PO Q12H Unknown History meclizine 25 mg tablet 25 mg PO BID PRN dizziness 1 07/17/24 Unknown History tizanidine 4 mg capsule 4 mg PO TID PRN muscle spast icity 05/17/25 Unknown History dulaglutide 1.5 mg/0.5 mL 1.5 mg subcut 05/29/25 Unkno wn History subcutaneous pen injector (Trulicity) erenumab-aooe 70 mg/mL 70 mg subcut .month 05/29/25 Unknown History subcutaneous auto-injector (Aimovig Autoinjector) lasmiditan 100 mg tablet (Reyvow) 100 mg PO BID PRN Unknown History amoxicillin 400 mg-potassium 10 ml PO BID 5 days #100 mL 05/30/25 Unknown Rx clavulanate 57 mg/5 mL oral suspension sumatriptan succinate 100 mg tablet See Rx Instruction s PO .COMPLEX 06/01/25 Unknown Rx #12 tabs bisacodyl 5 mg tablet,delayed 20 mg (4 x 5 mg) PO ONCE #4 tabs 06/08/25 Unknown Rx release (Dulcolax (bisacodyl)) polyethylene glycol 3350 17 See Rx Instructions .Route 06/08/25 Unknown Rx gram/dose oral powder .COMPLEX #238 grams hyoscyamine sulfate 0.125 mg tablet 0.125 mg PO BID-QI D PRN dyspepsia 06/14/25 Unknown Rx #60 tabs promethazine 25 mg rectal 25 mg [place] Q6H PRN nausea and 06/14/25 Unknown Rx suppository vomiting #12 ea gabapentin 400 mg capsule 400 mg PO TID #270 caps 09/08 Unknown Rx acetaminophen 160 mg/5 mL oral mg 06/18/25 Unknown His tory suspension (Children's Acetaminophen) dicyclomine 20 mg tablet 20 mg PO Q6H PRN abdominal p ain 06/18/25 Unknown History docusate sodium 100 mg capsule 100 mg PO DAILY for con stipation 06/18/25 Unknown History famotidine 20 mg tablet 20 mg PO DAILY #30 tabs 12/06 Unknown Rx Allergy/AdvReac Type Severity Reaction Status Date / Time bee venom protein (honey Allergy Severe Anaphylaxis Verified 06/18/25 13:21 bee) (bee sting) ziprasidone (From Geodon) Allergy Severe facial Verified 06/18/25 13:21 swelling ciprofloxacin (From Cipro) Allergy Intermediate Angioedema Verified 06/18/25 13:21 levofloxacin (From Levaquin) Allergy Intermediate Angioedema Verified 06/18/25 13:21 adhesive tape Allergy Mild Rash Verified 06/18/25 13:21 latex Allergy Mild Rash Verified 06/18/25 13:21 Iodinated Contrast Media Allergy Hives Verified 06/18/25 13:21 ondansetron (From Zofran) Allergy Hives Verified 06/18/25 13:21 propranolol Allergy Angioedema Verified 06/18/25 13:21 midazolam (From Versed) AdvReac Severe Other Verified 06/18/25 13:21 haloperidol (From Haldol) AdvReac Other Verified 06/18/25 13:21 metoclopramide (From Reglan) AdvReac Other Verified 06/18/25 13:21 Family History Father Alcoholism Hypertension Thyroid disorder Mother Anxiety Autoimmune disorder Bleeding disorder Hypertension Mental disorder CVA (cerebral vascular accident) Suicide attempt Thyroid disorder Other Breast cancer Colon cancer Diabetes Heart disease Myocardial infarction Ovarian cancer Surgical History (Updated 06/18/25 @ 13:25 by Chante Breaux) Hx of colonoscopy PEG (percutaneous endoscopic gastrostomy) status S/P percutaneous endoscopic gastrostomy (PEG) tube placement History of vascular access device Port-A-Cath in place H/O hernia repair H/O wisdom tooth extraction H/O oophorectomy Hx of cholecystectomy H/O tubal ligation Social History adopted: No household members: children and none number of children: 2 current occupational status: unemployed pets and animals: No sexually active: No Smoking Status: Never smoker alcohol intake: never substance use type: does not use caffeine: No frequency: 3-4 times per week do you feel safe at home: Yes Audit: Pertinent Findings Pertinent Findings EKG Perinent findings: 05/21/2025. Sinus tachycardia 102 bpm. Otherwise normal EKG. Echo (EF%) pertinent findings: 03/19/2025. Ejection fraction 65%. Normal size function. Additional pertinent findings: Hemoglobin 7.8 g/dL. 05/30/2025 lab. Patient states had transfusion since then in [place]. Recommendation Anesthesia Recommendation Anesthesia recommendation: OPTIMIZED for anesthesia
[2025-06-21] VITALS (7 sets, daily range): BP systolic 93–113; BP diastolic 53–78; PULSE 99–115; RESP 16–18; TEMP 36.3–36.6; O2SAT 97–100; BMI 36.0
--- NOTE | 2025-06-21 09:58 | PCM.PRE.AN2 ---
ASA Classification* ASA Classification ASA Classification: 3 Assessment & Plan Anesthesia* Anesthesia Assessment Anesthesia Assessment: Discussed sedation and/or anesthesia options, risks, benefits, and alternatives with patient/parents/legal guardian/POA. Questions invited. The patient/parents/legal guardian/POA seems to understand and agrees to proceed with anesthesia plan. Reviewed the physical assessment, medical history, allergy history and patient home medications list prior to surgery/procedure/anesthetic and documented any changes. Performed airway and anesthesia risk assessments. Anesthesia Type Anesthesia Type: MAC (Hives with Zofran) Anesthesia Focused Assessment* Airway Assessment Mouth opens: >3 cm Mallampati Score: II Labs Anesthesia Preop lab: CBC WBC, (4.4-11.0) 8.4 K/mm3 05/30/25, 05:20 RBC, (4.2-5.4) 2.80 M/mm3 L 05/30/25, 05:20 Hgb, (12.0-15.0) 7.8 g/dL L 05/30/25, 05:20 Hct, (37-47) 23.9 % L 05/30/25, 05:20 Plt Count, (150-450) 345 K/mm3 05/30/25, 05:20 CHEMISTRY Potassium, (3.3-5.1) 4.8 mmol/L 05/30/25, 05:20 Sodium, (133-145) 136 mmol/L 05/30/25, 05:20 Magnesium, (1.5-2.2) 1.7 mg/dL 05/29/25, 10:40 Phosphorus, (2.7-4.5) 3.2 mg/dL 05/29/25, 10:40 BUN, (4-19) 12 mg/dL 05/30/25, 05:20 Creatinine, (0.70-1.20) 0.62 mg/dL L 05/30/25, 05:20 Glucose, (70-99) 78 mg/dL 05/30/25, 05:20 POC Glucose, (74-106) 153 mg/dL H 05/29/25, 23:31 TSH, (0.300-4.200) 3.150 uIU/mL 04/14/25, 13:56 COAG PT, (11.7-14.9) 18.9 SECONDS H 03/22/25, 03:53 Urine Test Negative Negative 03/19/25, 14:38 Pre-Assessment Diagnosis/Proposed Procedure Planned Operative Procedure(s): Colonoscopy,EGD,PEG Tube Removal Anesthesia History 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 When Was Last Pacemaker Check QUESTION #4 FULL TEXT: You/Your Family Experience fever (hyperthermia) with Anesthesia Last Oral Intake Last Oral intake: Last Oral Intake NPO since Meds taken in AM with sips of water? Meds patient instructed to take am of surgery PONV PONV - social insurance administrator: PONV - social insurance administrator Female Yes 06/18/25 13:25 HX of Motion Sickness Yes 06/18/25 13:25 HX of N/V After Surgery Yes 06/18/25 13:25 Non-Smoker Yes 06/18/25 13:25 Duration of Surgery greater No 06/18/25 13:25 than 60 minutes Number of Risk Factors 4 06/18/25 13:25 PONV Score Severe Risk 06/18/25 13:25 Height & Weight Height & Weight: Anesthesia: Height & Weight Height 5 ft 1.02 in 06/14/25 10:39 Respiratory Assessment Respiratory Assessment - social insurance administrator: Respiratory Tract Infection Hx - social insurance administrator Hx Respiratory Tract Infection No 06/18/25 13:25 STOP Sleep Apnea STOP Sleep Apnea - social insurance administrator: STOP Sleep Apnea - social insurance administrator Hx Hypertension No 06/18/25 13:25 Hx Sleep Apnea No 06/18/25 13:25 CPAP No 05/29/25 20:47 BIPAP Do you snore loudly (louder No 06/18/25 13:25 than talking or can be heard Do you often feel tired/ No 06/18/25 13:25 fatigued/ sleepy during daytime? Has anyone observed you stop No 06/18/25 13:25 breathing during sleep? STOP Results Negative 06/18/25 13:25 QUESTION #5 FULL TEXT : Do you snore loudly (louder than talking or can be heard through closed doors)? 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 Specify any problems Hx of Preganancy in last 3 No 06/18/25 13:25 Months Nurse Filling Out Transfusion JZOLLINGE 06/18/25 13:25 & Questions: Date: 06/18/25 06/18/25 13:25 Time: 13:28 06/18/25 13:25 Patient unable to answer at this time (ie. confused, unrespo /Reproduction History /Reproductive History - social insurance administrator: /Reproductive Hx- social insurance administrator Hx Now No 06/18/25 13:25 Gestational Age (in weeks): EDC: Hx Hx Para Hx Section SAB No 06/18/25 13:25 Does the father of the baby or his family experience fever w Father of the baby Malignant Hypertension history comment Active Medications Active Medications: Current Medications Generic Name Dose Route Start Last Admin Trade Name Freq PRN Reason Stop Dose Admin Lactated Ringer's 1,000 mls @ 15 mls/hr 06/21/25 10:00 IV .Q48H NIGEL PFSH Medical History Irritation around percutaneous endoscopic gastrostomy (PEG) tube site Walker as ambulation aid CAP (community acquired pneumonia) Hx of substance abuse Bipolar disorder Kidney stones GERD (gastroesophageal reflux disease) Non-smoker Generalized weakness Anemia Easy bruising Dietary restriction Implantable loop recorder present Wears glasses Anxiety MRSA infection Substance abuse History of steroid therapy Diabetes Injury of head and neck History of IBS Gastric reflux Neuropathy delivery delivered Arthritis Prolonged QT interval PCOS (polycystic ovarian syndrome) Factor V Leiden Anxiety Depression Pulmonary embolism DVT (deep venous thrombosis) TIA (transient ischemic attack) Ovarian cyst Home Medications ?Medication ?Instructions ?Recorded ?Last Taken ?Type epinephrine 0.3 mg/0.3 mL 0.3 mg (0.3 mL) IM Q5-15M PRN 10/05/24 Unknown Rx injection, auto-injector (EpiPen anaphylaxis #2 ea 2-Scout) albuterol sulfate 90 mcg/actuation 2 puff inhalation Q6H PRN 11/19/24 Unknown Rx aerosol inhaler shortness of breath or wheezing #8.5 grams sumatriptan succinate 6 mg/0.5 mL 6 mg subcut Q12H PRN MIGRAINE 12/11/24 Unknown History subcutaneous pen injector zolpidem 12.5 mg tablet,extended 12.5 mg PO QHS PRN insomnia 12/18/24 03/28/25 History release,multiphase (Ambien CR) linaclotide 290 mcg capsule 290 mcg PO QDAY #90 caps 03/26/25 03/26/25 Rx (Linzess) potassium chloride 20 mEq oral 20 meq PO BID #100 ea 04/15/25 Unknown Rx packet pantoprazole 40 mg tablet,delayed 40 mg PO DAILY #90 TABLETS 04/20/25 Unknown Rx release blood-glucose sensor (Dexcom G7 #1 ea 04/23/25 Unknown Rx Sensor device) 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-glucose,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,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 #1 ea 04/23/25 Unknown Rx (Dexcom G7 Waterproofer) blood sugar diagnostic (OneTouch #100 ea 04/27/25 Unknown Rx Verio test strips) lancets 30 gauge (OneTouch #200 ea 04/27/25 Unknown Rx UltraSoft 2 Lancet) ergocalciferol (vitamin D2) 1,250 1,250 mcg PO QWEEK #1 cap 05/12/25 Unknown Rx mcg (50,000 unit) capsule (Vitamin D2) folic acid 1 mg tablet 1 mg PO QDAY #30 tabs 05/12/25 Unknown Rx magnesium oxide 400 mg PO BID #60 tabs 05/12/25 Unknown Rx spironolactone 50 mg tablet 50 mg PO BID #60 tabs 05/12/25 Unknown Rx torsemide 20 mg tablet 20 mg PO QDAY #30 tabs 05/12/25 Unknown Rx indomethacin 50 mg capsule 50 mg PO TID PRN pain 05/17/25 Unknown History lorazepam 0.5 mg tablet (Ativan) 0.5 mg PO Q12H 05/17/25 Unknown History meclizine 25 mg tablet 25 mg PO BID PRN dizziness 05/17/25 Unknown History tizanidine 4 mg capsule 4 mg PO TID PRN muscle spasticity 05/17/25 Unknown History dulaglutide 1.5 mg/0.5 mL 1.5 mg subcut 05/29/25 Unknown History subcutaneous pen injector (Trulicity) erenumab-aooe 70 mg/mL 70 mg subcut .month 05/29/25 Unknown History subcutaneous auto-injector (Aimovig Autoinjector) lasmiditan 100 mg tablet (Reyvow) 100 mg PO BID PRN 05/29/25 Unknown History amoxicillin 400 mg-potassium 10 ml PO BID 5 days #100 mL 05/30/25 Unknown Rx clavulanate 57 mg/5 mL oral suspension sumatriptan succinate 100 mg tablet See Rx Instructions PO .COMPLEX 06/01/25 Unknown Rx #12 tabs bisacodyl 5 mg tablet,delayed 20 mg (4 x 5 mg) PO ONCE #4 tabs 06/08/25 Unknown Rx release (Dulcolax (bisacodyl)) polyethylene glycol 3350 17 See Rx Instructions .Route 06/08/25 Unknown Rx gram/dose oral powder .COMPLEX #238 grams hyoscyamine sulfate 0.125 mg tablet 0.125 mg PO BID-QID PRN dyspepsia 06/14/25 Unknown Rx #60 tabs promethazine 25 mg rectal 25 mg [place] Q6H PRN nausea and 06/14/25 Unknown Rx suppository vomiting #12 ea gabapentin 400 mg capsule 400 mg PO TID #270 caps 06/15/25 Unknown Rx acetaminophen 160 mg/5 mL oral mg 06/18/25 Unknown History suspension (Children's Acetaminophen) dicyclomine 20 mg tablet 20 mg PO Q6H PRN abdominal pain 06/18/25 Unknown History docusate sodium 100 mg capsule 100 mg PO DAILY for constipation 06/18/25 Unknown History famotidine 20 mg tablet 20 mg PO DAILY #30 tabs 06/18/25 Unknown Rx oxycodone 10 mg tablet 10 mg PO Q6H PRN pain 5 days #20 06/18/25 Unknown Rx tabs Allergy/AdvReac Type Severity Reaction Status Date / Time bee venom protein (honey Allergy Severe Anaphylaxis Verified 06/18/25 13:21 bee) (bee sting) ziprasidone (From Geodon) Allergy Severe facial Verified 06/18/25 13:21 swelling ciprofloxacin (From Cipro) Allergy Intermediate Angioedema Verified 06/18/25 13:21 levofloxacin (From Levaquin) Allergy Intermediate Angioedema Verified 06/18/25 13:21 adhesive tape Allergy Mild Rash Verified 06/18/25 13:21 latex Allergy Mild Rash Verified 06/18/25 13:21 Iodinated Contrast Media Allergy Hives Verified 06/18/25 13:21 ondansetron (From Zofran) Allergy Hives Verified 06/18/25 13:21 propranolol Allergy Angioedema Verified 06/18/25 13:21 midazolam (From Versed) AdvReac Severe Other Verified 06/18/25 13:21 haloperidol (From Haldol) AdvReac Other Verified 06/18/25 13:21 metoclopramide (From Reglan) AdvReac Other Verified 06/18/25 13:21 Family History Father Alcoholism Hypertension Thyroid disorder Mother Anxiety Autoimmune disorder Bleeding disorder Hypertension Mental disorder CVA (cerebral vascular accident) Suicide attempt Thyroid disorder Other Breast cancer Colon cancer Diabetes Heart disease Myocardial infarction Ovarian cancer Surgical History Hx of colonoscopy PEG (percutaneous endoscopic gastrostomy) status S/P percutaneous endoscopic gastrostomy (PEG) tube placement History of vascular access device Port-A-Cath in place H/O hernia repair H/O wisdom tooth extraction H/O oophorectomy Hx of cholecystectomy H/O tubal ligation Social History adopted: No household members: children and none number of children: 2 current occupational status: unemployed pets and animals: No sexually active: No Smoking Status: Never smoker alcohol intake: never substance use type: does not use caffeine: No frequency: 3-4 times per week do you feel safe at home: Yes Review of Systems (Anesthesia) ROS Narrative System reviewed and no additional complaints, except as documented.
[2025-06-21] MEDS: Lactated Ringers 1,000 ML 15 ML IV (10:53)
--- NOTE | 2025-06-21 11:32 | PCM.HP.STD ---
HPI - General General Date of Admission: 06/21/25 Date of Service: 06/21/25 Chief Complaint: PEG tube removal HPI Narrative ERIN TORRES, is a 35 F with multiple medical problems.The patient, with a history notable for PEG tube placement about one month ago, anemia requiring transfusion, and diabetic neuropathy, presents with ongoing and worsening abdominal issues related to the PEG tube. Reports persistent abdominal swelling (anasarca) that had briefly decreased but has worsened over the past week, causing significant pressure on the tube. Within minutes of initiating tube feeds, experiences severe, doubled-over abdominal pain that provokes tears despite a high pain tolerance; baseline stomach pain is high and feeds exacerbate it. Describes thick green-brown mucus draining continuously from the PEG site. Prior imaging reportedly showed the PEG tube remains in place. Recent hospitalization for a couple of days included a blood transfusion for anemia when hemoglobin was 6.4. Multiple emergency department visits since January for the abdominal pain have been labeled as chronic; OTC medications (ibuprofen and acetaminophen) have not provided relief, and IV analgesics were used only inpatient. Nutrition remains inadequate, and albumin has not improved despite tube feeds; malabsorption is suspected. Kidney and bone marrow biopsies showed no definitive cause; nephrology noted acute kidney disease but felt it was not the cause of the anasarca. Family history includes maternal lupus; an autoimmune workup has not been completed. The patient has a central port and home health nursing; there has been discussion about administering ?stomach medications? via the port due to malabsorption, though logistics are unclear. TPN was discussed previously; cost and risks were reviewed. - PEG tube in place (~1 month) - Anasarca (generalized swelling) - Anemia requiring transfusion (hemoglobin 6.4 during recent hospitalization) - Acute kidney disease (per kidney biopsy; nephrology felt not the cause of anasarca) - Diabetic neuropathy (feet) - Chronic abdominal pain [facility] Medical History Irritation around percutaneous endoscopic gastrostomy (PEG) tube site Walker as ambulation aid CAP (community acquired pneumonia) Hx of substance abuse Bipolar disorder Kidney stones GERD (gastroesophageal reflux disease) Non-smoker Generalized weakness Anemia Easy bruising Dietary restriction Implantable loop recorder present Wears glasses Anxiety MRSA infection Substance abuse History of steroid therapy Diabetes Injury of head and neck History of IBS Gastric reflux Neuropathy delivery delivered Arthritis Prolonged QT interval PCOS (polycystic ovarian syndrome) Factor V Leiden Anxiety Depression Pulmonary embolism DVT (deep venous thrombosis) TIA (transient ischemic attack) Ovarian cyst Home Medications ?Medication ?Instructions ?Recorded ?Last Taken ?Type epinephrine 0.3 mg/0.3 mL 0.3 mg (0.3 mL) IM Q5-15M PRN 10/05/24 Unknown Rx injection, auto-injector (EpiPen anaphylaxis #2 ea 2-Scout) albuterol sulfate 90 mcg/actuation 2 puff inhalation Q6H PRN 11/19/24 Unknown Rx aerosol inhaler shortness of breath or wheezing #8.5 grams sumatriptan succinate 6 mg/0.5 mL 6 mg subcut Q12H PRN MIGRAINE 12/11/24 Unknown History subcutaneous pen injector zolpidem 12.5 mg tablet,extended 12.5 mg PO QHS PRN insomnia 12/18/24 06/20/25 History release,multiphase (Ambien CR) linaclotide 290 mcg capsule 290 mcg PO QDAY #90 caps 03/26/25 06/20/25 Rx (Linzess) potassium chloride 20 mEq oral 20 meq PO BID #100 ea 04/15/25 Unknown Rx packet pantoprazole 40 mg tablet,delayed 40 mg PO DAILY #90 TABLETS 04/20/25 06/20/25 Rx release blood-glucose sensor (Dexcom G7 #1 ea 04/23/25 Unknown Rx Sensor device) blood-glucose,furniture assembler,cont #1 ea 04/23/25 Unknown Rx (Dexcom G7 Back Up Scan Coordinator) blood sugar diagnostic (OneTouch #100 ea 04/27/25 Unknown Rx Verio test strips) lancets 30 gauge (OneTouch #200 ea 04/27/25 Unknown Rx UltraSoft 2 Lancet) ergocalciferol (vitamin D2) 1,250 1,250 mcg PO QWEEK #1 cap 05/12/25 06/14/25 Rx mcg (50,000 unit) capsule (Vitamin D2) folic acid 1 mg tablet 1 mg PO QDAY #30 tabs 05/12/25 06/20/25 Rx magnesium oxide 400 mg PO BID #60 tabs 05/12/25 06/20/25 Rx spironolactone 50 mg tablet 50 mg PO BID #60 tabs 05/12/25 06/20/25 Rx torsemide 20 mg tablet 20 mg PO QDAY #30 tabs 05/12/25 06/20/25 Rx indomethacin 50 mg capsule 50 mg PO TID PRN pain 05/17/25 06/20/25 History lorazepam 0.5 mg tablet (Ativan) 0.5 mg PO Q12H 05/17/25 06/20/25 History meclizine 25 mg tablet 25 mg PO BID PRN dizziness 05/17/25 Unknown History tizanidine 4 mg capsule 4 mg PO TID PRN muscle spasticity 05/17/25 06/20/25 History dulaglutide 1.5 mg/0.5 mL 1.5 mg subcut 05/29/25 Unknown History subcutaneous pen injector (Trulicity) Held on 06/21/25. Instructions: not eating much erenumab-aooe 70 mg/mL 70 mg subcut .month 05/29/25 05/24/25 History subcutaneous auto-injector (Aimovig Autoinjector) lasmiditan 100 mg tablet (Reyvow) 100 mg PO BID PRN 05/29/25 Unknown History sumatriptan succinate 100 mg tablet See Rx Instructions PO .COMPLEX 06/01/25 Unknown Rx #12 tabs bisacodyl 5 mg tablet,delayed 20 mg (4 x 5 mg) PO ONCE #4 tabs 06/08/25 06/20/25 Rx release (Dulcolax (bisacodyl)) polyethylene glycol 3350 17 See Rx Instructions .Route 06/08/25 Unknown Rx gram/dose oral powder .COMPLEX #238 grams Held on 06/21/25. Instructions: didnt do prep hyoscyamine sulfate 0.125 mg tablet 0.125 mg PO BID-QID PRN dyspepsia 06/14/25 06/19/25 Rx #60 tabs promethazine 25 mg rectal 25 mg AK Q6H PRN nausea and 06/14/25 Unknown Rx suppository vomiting #12 ea gabapentin 400 mg capsule 400 mg PO TID #270 caps 06/15/25 06/20/25 Rx acetaminophen 160 mg/5 mL oral mg 06/18/25 06/20/25 History suspension (Children's Acetaminophen) dicyclomine 20 mg tablet 20 mg PO Q6H PRN abdominal pain 06/18/25 06/20/25 History docusate sodium 100 mg capsule 100 mg PO DAILY for constipation 06/18/25 06/20/25 History famotidine 20 mg tablet 20 mg PO DAILY #30 tabs 06/18/25 06/20/25 Rx oxycodone 10 mg tablet 10 mg PO Q6H PRN pain 5 days #20 06/18/25 06/20/25 Rx tabs Allergy/AdvReac Type Severity Reaction Status Date / Time bee venom protein (honey Allergy Severe Anaphylaxis Verified 06/21/25 10:17 bee) (bee sting) ziprasidone (From Geodon) Allergy Severe facial Verified 06/21/25 10:17 swelling ciprofloxacin (From Cipro) Allergy Intermediate Angioedema Verified 06/21/25 10:17 levofloxacin (From Levaquin) Allergy Intermediate Angioedema Verified 06/21/25 10:17 adhesive tape Allergy Mild Rash Verified 06/21/25 10:17 latex Allergy Mild Rash Verified 06/21/25 10:17 Iodinated Contrast Media Allergy Hives Verified 06/21/25 10:17 ondansetron (From Zofran) Allergy Hives Verified 06/21/25 10:17 propranolol Allergy Angioedema Verified 06/21/25 10:17 midazolam (From Versed) AdvReac Severe Other Verified 06/21/25 10:17 haloperidol (From Haldol) AdvReac Other Verified 06/21/25 10:17 metoclopramide (From Reglan) AdvReac Other Verified 06/21/25 10:17 Family History Father Alcoholism Hypertension Thyroid disorder Mother Anxiety Autoimmune disorder Bleeding disorder Hypertension Mental disorder CVA (cerebral vascular accident) Suicide attempt Thyroid disorder Other Breast cancer Colon cancer Diabetes Heart disease Myocardial infarction Ovarian cancer Surgical History Hx of colonoscopy PEG (percutaneous endoscopic gastrostomy) status S/P percutaneous endoscopic gastrostomy (PEG) tube placement History of vascular access device Port-A-Cath in place H/O hernia repair H/O wisdom tooth extraction H/O oophorectomy Hx of cholecystectomy H/O tubal ligation Social History adopted: No household members: children and none number of children: 2 current occupational status: unemployed pets and animals: No sexually active: No Smoking Status: Never smoker alcohol intake: never substance use type: does not use caffeine: No frequency: 3-4 times per week do you feel safe at home: Yes ROS Constitutional Constitutional: Denies fatigue, fever(s), poor appetite, weight gain or weight loss Gastrointestinal Gastrointestinal: Denies belching, bloating, change in bowel habits, change in stool character, chewing difficulty, coffee ground emesis, constipation, cramping, diarrhea, dyspepsia, dysphagia, early satiety, excessive flatus, fecal incontinence, heartburn, hematemesis, hematochezia, hemorrhoids, loose stools, melena, nausea, odynophagia, rectal bleeding, tenesmus, vomiting or weight changes Vital Signs Vital Signs Vital Signs: 06/21/25 10:26 06/21/25 10:26 06/21/25 10:26 Temperature 97.3 F L Temperature Source Temporal Pulse Rate 113 H Respiratory Rate 18 Respiratory Pattern Normal Blood Pressure 113/78 Blood Pressure Mean 89 Blood Pressure Source Monitor Blood Pressure Position Semi-Fowlers Blood Pressure Location Left Arm Baseline BP 113/78 Pulse Ox 100 Oxygen Delivery Method Room Air Weight Weight: 190 lb 11.198 oz Body Mass Index (BMI) 36.0 Physical Exam Const alert, oriented x3, no apparent distress and healthy appearing General Appearance: cooperative GI normal to inspection, nondistended, normoactive bowel sounds, soft to palpation, non-tender and non-distended Percussion: normal to percussion Rectal Exam: deferred Results Lab / Micro Data Labs: Laboratory Results - last 24 hr 06/21/25 10:26: POC Glucose 115 H Assessment & Plan Assessment/Plan (1) Malfunction of percutaneous endoscopic gastrostomy (PEG) tube: PLAN: Assessment and Plan Assessment and Plan (1) Abdominal pain: Status: Acute (2) Nausea and vomiting: Status: Acute Qualifiers: Vomiting type: unspecified Qualified Code(s): R11.2 - Nausea with vomiting, unspecified Plan: PEG tube complication with severe pain during feeds and mucous drainage : Abdominal swelling and pressure around the PEG site with severe pain within minutes of starting feeds; thick green-brown drainage from the site. Imaging reportedly shows PEG in place. Given tube location and lack of alternative gastric placement, ongoing PEG use is causing more harm than benefit. - Remove the PEG tube on Saturday; patient agrees. - Allow PEG site to heal, then pursue surgically placed jejunostomy (J-tube) in the operating room. - TPN not recommended due to cost, insurance limitations, need for a new central line if current line becomes infected, and risk of long-term liver injury. Severe abdominal pain : Chronic severe abdominal pain worsened by PEG feeds; OTC analgesics ineffective; EDs consider pain chronic and non-emergent; prior relief only with inpatient IV analgesics. Outpatient chronic narcotics generally inappropriate for GI pain absent surgical pathology. - Prescribe a short course of pain medication (oral pills) to bridge until PEG removal; sent to hospital pharmacy for pickup tomorrow. - Avoid chronic outpatient narcotics; inpatient IV analgesics only if admission is required. Anasarca (generalized swelling) : Persistent generalized swelling. Nephrology noted acute kidney disease but does not believe it explains the anasarca. GI etiology considered but not yet evaluated. - Order stool tests to evaluate for GI-related causes of protein loss/malabsorption. Malnutrition with hypoalbuminemia (albumin not improved) : Ongoing inadequate intake and suspected malabsorption with albumin not improving despite tube feeds. - Transition nutrition strategy to J-tube feeding after PEG removal, given intolerance to gastric feeds. - TPN not recommended due to risks and cost as outlined. Anemia (recent transfusion for hemoglobin 6.4) : Recent hospitalization required transfusion for hemoglobin 6.4; etiology not discussed in detail today. Acute kidney disease : Kidney biopsy indicated acute kidney disease; nephrology assessed it is not the cause of anasarca. Possible autoimmune disease (family history of lupus) : Autoimmune workup not completed; maternal history of lupus raises concern for autoimmune etiology. - Order autoimmune serologic blood work. Medication administration via central port (logistics unclear) : Patient has a central port and home health nursing; there is interest in administering certain medications via the port due to malabsorption, but logistics and protocols are unclear. - Ask about the logistics and feasibility of administering medications through the existing port. Portions of this note were generated using voice recognition software (Interwise Dictation). I have reviewed the contents and every effort has been made to ensure accuracy; however, inadvertent errors in grammar, spelling, punctuation, or word choice may occur, that were not noted before signing the document and should not alter the intended clinical meaning.
--- NOTE | 2025-06-21 12:10 | PCM.POST.ANE ---
Anesthesia: Postop Eval I Current Vital Signs Temperature: 97.8 F Pulse Rate: 99 Blood Pressure: 93/60 Respiratory Rate: 16 Pulse Ox: 99 Oxygen Delivery Method: Room Air Assessment Airway patent: Yes Spontaneous unlabored respirations: Yes Mental status: Awake and Calm nausea: No Vomiting: No Anesthesia Complication: No Fluid Hydration Crystalloid volume administer (ml): 400 Total IV fluid infused: 400 Progress Note Anesthesia document: Postop Eval 1 completed: Yes
--- NOTE | 2025-06-21 12:19 | OP.EGD_ITS ---
Patient Name: Clare Scott Procedure Date: 06/21/2025 11:38 AM Date of : 1990 Age: 35 Procedure: Upper GI endoscopy Indications: Epigastric abdominal pain Providers: Asif Layton DO Referring MD: MJ Fried Medicines: Monitored Anesthesia Care Patient Profile: This is a 35 year old female. Refer to note in patient chart for documentation of history and physical. Patient has symptoms of acute epigastric abdominal pain. Complications: No immediate complications. Procedure: Pre-Anesthesia Assessment: - Prior to the procedure, a History and Physical was performed, and patient medications and allergies were reviewed. The patient is competent. The risks and benefits of the procedure and the sedation options and risks were discussed with the patient. All questions were answered and informed consent was obtained. Patient identification and proposed procedure were verified by the physician in the pre-procedure area. Mental Status Examination: alert and oriented. Airway Examination: normal oropharyngeal airway and neck mobility. Respiratory Examination: clear to auscultation. CV Examination: normal. Prophylactic Antibiotics: The patient does not require prophylactic antibiotics. Prior Anticoagulants: The patient has taken no anticoagulant or antiplatelet agents except for NSAID medication. ASA Grade Assessment: II - A patient with mild systemic disease. After reviewing the risks and benefits, the patient was deemed in satisfactory condition to undergo the procedure. The anesthesia plan was to use monitored anesthesia care (MAC). Immediately prior to administration of medications, the patient was re-assessed for adequacy to receive sedatives. The heart rate, respiratory rate, oxygen saturations, blood pressure, adequacy of pulmonary ventilation, and response to care were monitored throughout the procedure. The physical status of the patient was re-assessed after the procedure. After obtaining informed consent, the endoscope was passed under direct vision. Throughout the procedure, the patient's blood pressure, pulse, and oxygen saturations were monitored continuously. The Endoscope was introduced through the mouth, and advanced to the second part of duodenum. The upper GI endoscopy was accomplished without difficulty. The patient tolerated the procedure well. Scope In: 11:57:52 AM Scope Out: 12:01:36 PM Total Procedure Duration Time 0 hours 3 minutes 44 seconds Findings: The examined esophagus was normal. There was evidence of an eroding gastrostomy tube present in the gastric body. The PEG required removal because it developed complications. The PEG was cut externally, grasped, and removed with the scope. Removal was easily accomplished. The in the duodenum was normal. Impression: - Normal esophagus. - Eroding gastrostomy tube present. - Normal. - The PEG was cut externally, grasped, and removed with the scope because it developed complications. - No specimens collected. Recommendation: - Discharge patient to home. - Resume previous diet. - Continue present medications. Procedure Code(s): --- Professional --- 66240, Esophagogastroduodenoscopy, flexible, transoral; with removal of foreign body(s) CPT copyright 2021 [employer]. All rights reserved. The codes documented in this report are preliminary and upon surgical coder review may be revised to meet current compliance requirements. Asif Layton DO 06/21/2025 12:19:04 PM This report has been signed electronically. Number of Addenda: 0 Note Initiated On: 06/21/2025 11:38 AM
--- NOTE | 2025-06-21 12:19 | OP.PROVAT_ITS ---
06/21/2025 MJ Fried [id number] [id number] Re : Upper GI endoscopy procedure for Clare Scott Dear Mr. Pereiraalondra This procedure was performed on Saturday, June 21, 2025. My impressions and recommendations are as follows: Impressions : - Normal esophagus. - Eroding gastrostomy tube present. - Normal. - The PEG was cut externally, grasped, and removed with the scope because it developed complications. - No specimens collected. Recommendations : - Discharge patient to home. - Resume previous diet. - Continue present medications. My findings are described in the full procedure note, which is enclosed. If I can be of further assistance, please feel free to contact me at . Sincerely, Asif Layton, 06/21/2025 12:19:04 PM This report has been signed electronically.
--- NOTE | 2025-06-21 12:44 | PCM.POSTANE2 ---
Anesthesia Postop Eval I Sum Postop Eval Completion status Anesthesia document: Postop Eval 1 completed: Yes Anesthesia Postop Eval I Summary Anesthesia Postop Eval I Summary: Anesthesia Postop Eval I: Assessment Summary Airway patent Yes 06/21/25 12:11 [email or web address] Spontaneous unlabored Yes 06/21/25 12:11 [email or web address] respirations Mental status Awake,Calm 06/21/25 12:11 [email or web address] nausea No 06/21/25 12:11 [email or web address] Vomiting No 06/21/25 12:11 [email or web address] Anesthesia Postop Eval I: Fluid Summary Crystalloid volume administer 400 06/21/25 12:11 [email or web address] (ml) Colloids volume administered ( ml) Blood Product volume administered (ml) Total IV fluid infused 400 06/21/25 12:11 [email or web address] Anesthesia Postop Eval I: Summary Notes Anesthesia Complication No 06/21/25 12:11 [email or web address] Anesthesia Complication Comment: Post-operative progress note Anesthesia: Postop Eval II Evaluation Mental status: Awake Pain Level: 0 nausea: No Vomiting: No
== END 2025-06-21 12:52 | disposition home or self-care (01) ==
LOC: EN 09:49 → AC 09:51
PROVIDERS: PCP Physician Assistant; Referring Provider Physician Assistant; Visit Provider Internal Medicine Gastroenterology
PROC: 0DJ08ZZ Inspection of Upper Intestinal Tract, Via Natural or Artificial Opening Endoscopic (ICD-10-PCS; CPT 43235; principal; 2025-06-21 10:55)
DX: K94.23 Gastrostomy malfunction (principal); E11.40 Type 2 diabetes mellitus with diabetic neuropathy, unspecified; E11.22 Type 2 diabetes mellitus with diabetic chronic kidney disease; D64.9 Anemia, unspecified; K21.9 Gastro-esophageal reflux disease without esophagitis; Z79.85 Long-term (current) use of injectable non-insulin antidiabetic drugs; N18.9 Chronic kidney disease, unspecified; Z79.899 Other long term (current) drug therapy
CPT/HCPCS: 43247; 82962; A4216

== ENCOUNTER 2025-06-30 08:49 | Emergency (ER) | payer MEDICAID, SELFPAY ==
[2025-06-30 08:50] VITALS: BP 133/100; PULSE 105; RESP 16; TEMP 36.5; O2SAT 100; BMI 36.2
--- NOTE | 2025-06-30 09:34 | RAD_ITS ---
PROCEDURE: CHEST PA AND LATERAL 06/30/2025 REASON FOR EXAM: PERIPHERAL EDEMA TECHNIQUE: Procedure Code: RADCXR Modality: DX Procedure: CHEST PA AND LATERAL COMPARISON: May 21, 2025. FINDINGS: Hardware: A left-sided port a catheter is seen with the tip in the midportion of the superior vena cava. A loop recording device is seen overlying the left cardiac border. Heart: The heart size is normal. Mediastinum: The mediastinal contour is unremarkable. Lungs: The lungs are clear. Bones: The bones are unremarkable. RAD/Chest PA and Lateral IMPRESSION: NO ACUTE FINDINGS. Reading Location: [id number]
--- NOTE | 2025-06-30 09:49 | ED.VIS.FALL ---
HPI HPI - Fall History of Present Illness Chief Complaint: Fall Narrative Narrative: Chief complaint and HPI: 35-year-old female with extensive past medical history of substance abuse, bipolar disorder, GERD, anemia, DM, IBS, neuropathy, PCOS, depression, previous PEG tube, generalized weakness with frequent falls presents for evaluation of abdominal pain. History taken by patient as well as medical record. Patient saw general surgery on 06/25/2025. For possible reinsertion of a PEG tube. Prior to that she had a PEG tube that was placed about a month ago. Due to the amount of pain that she was having, her PEG tube was removed by GI. She was referred to general surgery for either J-tube or lap assisted PEG tube placement. Patient states since her PEG tube was removed she has continued to have abdominal pain. She also endorses her continuous generalized weakness and bilateral lower extremity swelling. She states today she got up to use the bathroom in which she felt that her legs gave out of her and she fell on the ground. States she was unable to get up on her own. She denies any injury from the fall. She states however she is very fatigued and still endorsing abdominal pain. She denies any fever, chills, chest pain, shortness of breath, dysuria. Review of systems: See HPI Medications: As listed on the chart Allergies: As listed on the chart PFSH: Per chart Vital signs: As listed on the chart. Reviewed. Physical exam: Gen: A&O x3, NAD Head: Normocephalic, atraumatic Eyes: No sclera icterus, conjunctiva clear, PERRL, EOMI ENT: TMs clear BL, mildly dry membranes, face atraumatic without tenderness Neck: Trachea midline, No JVD, full range of motion, nontender CV: RRR, no murmurs, no chest wall TTP, + left port without overlying signs of cellulitis, + 1 bilateral pitting peripheral edema of the lower extremities Resp: Lungs CTA BL, no w/r/c GI: Abd soft, non-distended, mildly tender to palpation diffusely, no r/r/g, previous PEG tube site healing well without signs of infection Musc: Moves all extremities, no deformity, no spinal TTP, no batsheva step-offs Skin: Warm, dry, intact Neuro: Alert, oriented, grossly intact Psych: Cooperative [facility] Medical History Irritation around percutaneous endoscopic gastrostomy (PEG) tube site Walker as ambulation aid CAP (community acquired pneumonia) Hx of substance abuse Bipolar disorder Kidney stones GERD (gastroesophageal reflux disease) Non-smoker Generalized weakness Anemia Easy bruising Dietary restriction Implantable loop recorder present Wears glasses Anxiety MRSA infection Substance abuse History of steroid therapy Diabetes Injury of head and neck History of IBS Gastric reflux Neuropathy delivery delivered Arthritis Prolonged QT interval PCOS (polycystic ovarian syndrome) Factor V Leiden Anxiety Depression Pulmonary embolism DVT (deep venous thrombosis) TIA (transient ischemic attack) Ovarian cyst Home Medications ?Medication ?Instructions ?Recorded ?Last Taken ?Type epinephrine 0.3 mg/0.3 mL 0.3 mg (0.3 mL) IM Q5-15M PRN 10/05/24 Unknown Rx injection, auto-injector (EpiPen anaphylaxis #2 ea 2-Scout) albuterol sulfate 90 mcg/actuation 2 puff inhalation Q6H PRN 11/19/24 Unknown Rx aerosol inhaler shortness of breath or wheezing #8.5 grams sumatriptan succinate 6 mg/0.5 mL 6 mg subcut Q12H PRN MIGRAINE 12/11/24 Unknown History subcutaneous pen injector zolpidem 12.5 mg tablet,extended 12.5 mg PO QHS PRN insomnia 12/18/24 06/20/25 History release,multiphase (Ambien CR) linaclotide 290 mcg capsule 290 mcg PO QDAY #90 caps 03/26/25 06/20/25 Rx (Linzess) potassium chloride 20 mEq oral 20 meq PO BID #100 ea 04/15/25 Unknown Rx packet pantoprazole 40 mg tablet,delayed 40 mg PO DAILY #90 TABLETS 04/20/25 06/20/25 Rx release blood-glucose sensor (Dexcom G7 #1 ea 04/23/25 Unknown Rx Sensor device) blood-glucose,manager protein,cont #1 ea 04/23/25 Unknown Rx (Dexcom G7 Top Icer) blood sugar diagnostic (OneTouch #100 ea 04/27/25 Unknown Rx Verio test strips) lancets 30 gauge (OneTouch #200 ea 04/27/25 Unknown Rx UltraSoft 2 Lancet) ergocalciferol (vitamin D2) 1,250 1,250 mcg PO QWEEK #1 cap 05/12/25 06/14/25 Rx mcg (50,000 unit) capsule (Vitamin D2) folic acid 1 mg tablet 1 mg PO QDAY #30 tabs 05/12/25 06/20/25 Rx magnesium oxide 400 mg PO BID #60 tabs 05/12/25 06/20/25 Rx spironolactone 50 mg tablet 50 mg PO BID #60 tabs 05/12/25 06/20/25 Rx torsemide 20 mg tablet 20 mg PO QDAY #30 tabs 05/12/25 06/20/25 Rx indomethacin 50 mg capsule 50 mg PO TID PRN pain 05/17/25 06/20/25 History lorazepam 0.5 mg tablet (Ativan) 0.5 mg PO Q12H 05/17/25 06/20/25 History meclizine 25 mg tablet 25 mg PO BID PRN dizziness 05/17/25 Unknown History tizanidine 4 mg capsule 4 mg PO TID PRN muscle spasticity 05/17/25 06/20/25 History erenumab-aooe 70 mg/mL 70 mg subcut .month 05/29/25 05/24/25 History subcutaneous auto-injector (Aimovig Autoinjector) sumatriptan succinate 100 mg tablet See Rx Instructions PO .COMPLEX 06/01/25 Unknown Rx #12 tabs bisacodyl 5 mg tablet,delayed 20 mg (4 x 5 mg) PO ONCE #4 tabs 06/08/25 06/20/25 Rx release (Dulcolax (bisacodyl)) polyethylene glycol 3350 17 See Rx Instructions .Route 06/08/25 Unknown Rx gram/dose oral powder .COMPLEX #238 grams Held on 06/21/25. Instructions: didnt do prep promethazine 25 mg rectal 25 mg MD Q6H PRN nausea and 06/14/25 Unknown Rx suppository vomiting #12 ea gabapentin 400 mg capsule 400 mg PO TID #270 caps 06/15/25 06/20/25 Rx acetaminophen 160 mg/5 mL oral mg 06/18/25 06/20/25 History suspension (Children's Acetaminophen) dicyclomine 20 mg tablet 20 mg PO Q6H PRN abdominal pain 06/18/25 06/20/25 History docusate sodium 100 mg capsule 100 mg PO DAILY for constipation 06/18/25 06/20/25 History famotidine 20 mg tablet 20 mg PO DAILY #30 tabs 06/18/25 06/20/25 Rx Allergy/AdvReac Type Severity Reaction Status Date / Time bee venom protein (honey Allergy Severe Anaphylaxis Verified 06/30/25 08:54 bee) (bee sting) ziprasidone (From Geodon) Allergy Severe facial Verified 06/30/25 08:54 swelling ciprofloxacin (From Cipro) Allergy Intermediate Angioedema Verified 06/30/25 08:54 levofloxacin (From Levaquin) Allergy Intermediate Angioedema Verified 06/30/25 08:54 adhesive tape Allergy Mild Rash Verified 06/30/25 08:54 latex Allergy Mild Rash Verified 06/30/25 08:54 Iodinated Contrast Media Allergy Hives Verified 06/30/25 08:54 ondansetron (From Zofran) Allergy Hives Verified 06/30/25 08:54 propranolol Allergy Angioedema Verified 06/30/25 08:54 midazolam (From Versed) AdvReac Severe Other Verified 06/30/25 08:54 haloperidol (From Haldol) AdvReac Other Verified 06/30/25 08:54 metoclopramide (From Reglan) AdvReac Other Verified 06/30/25 08:54 Family History Father Alcoholism Hypertension Thyroid disorder Mother Anxiety Autoimmune disorder Bleeding disorder Hypertension Mental disorder CVA (cerebral vascular accident) Suicide attempt Thyroid disorder Other Breast cancer Colon cancer Diabetes Heart disease Myocardial infarction Ovarian cancer Surgical History Hx of colonoscopy PEG (percutaneous endoscopic gastrostomy) status S/P percutaneous endoscopic gastrostomy (PEG) tube placement History of vascular access device Port-A-Cath in place H/O hernia repair H/O wisdom tooth extraction H/O oophorectomy Hx of cholecystectomy H/O tubal ligation Social History adopted: No household members: children and none number of children: 2 current occupational status: unemployed pets and animals: No sexually active: No Smoking Status: Never smoker alcohol intake: never substance use type: does not use caffeine: No frequency: 3-4 times per week do you feel safe at home: Yes EXAM Physical Exam Const Vital Signs: 06/30/25 08:50 06/30/25 08:57 06/30/25 12:45 Temperature 97.7 F L Temperature Source Oral Pulse Rate 105 H 87 Respiratory Rate 16 12 Respiratory Effort Normal Non-Labored Respiratory Depth Normal Respiratory Pattern Normal Blood Pressure 133/100 H 120/81 H Blood Pressure Mean 111 92 Pulse Ox 100 98 Oxygen Delivery Method Room Air 06/30/25 14:29 Temperature 98.4 F Temperature Source Pulse Rate 101 H Respiratory Rate 18 Respiratory Effort Respiratory Depth Respiratory Pattern Blood Pressure 129/88 H Blood Pressure Mean 101 Pulse Ox 98 Oxygen Delivery Method MDM MDM MDM Narrative Medical decision making narrative: 35-year-old female with extensive past medical history of substance abuse, bipolar disorder, GERD, anemia, DM, IBS, neuropathy, PCOS, depression, previous PEG tube, generalized weakness with frequent falls presents for evaluation of abdominal pain. History taken by patient as well as medical record. Patient saw general surgery on 06/25/2025. For possible reinsertion of a PEG tube. Prior to that she had a PEG tube that was placed about a month ago. Due to the amount of pain that she was having, her PEG tube was removed by GI. She was referred to general surgery for either J-tube or lap assisted PEG tube placement. Patient states since her PEG tube was removed she has continued to have abdominal pain. She also endorses her continuous generalized weakness and bilateral lower extremity swelling. She states today she got up to use the bathroom in which she felt that her legs gave out of her and she fell on the ground. States she was unable to get up on her own. She denies any injury from the fall. She states however she is very fatigued and still endorsing abdominal pain. Differential diagnosis includes but is not limited to chronic abdominal pain, electrolyte abnormality, dehydration, anemia, UTI, CHF, complication from recent PEG tube removal. Patient has iodine contrast therefore fluids, Benadryl, Solu-Medrol ordered for CT abdomen and pelvis. Morphine ordered for pain. Laboratory workup ordered. CBC with chronic anemia of 9.3. Platelets unremarkable. CMP shows transaminitis with an AST of 41 and ALT of 69. This is new from previous labs. No GERA. Magnesium unremarkable. Bilirubin unremarkable. Lipase unremarkable. UA negative for UTI. BNP unremarkable. Albumin low at 3.2. Increasing from previous labs. CT abdomen pelvis shows multiple findings per radiology. Suspect mild focal inflammation changes the distal ileum, suspect focal mild nonspecific enteritis. Trace free fluid. Findings most favorable for borderline mild small bowel ileus, although given the above partial/minimal obstruction perhaps related to ileal stricture. Interval percutaneous gastrostomy removal. Mild soft tissue thickening and trace fluid suspected along the tract. Correlate for clinical evidence of localized soft tissue infection/tiny nondrainable abscess. Trace pleural effusions. Minimal enlarged peritoneal lymph nodes, nonspecific and potential reactive in the absence of known malignancy. Mild splenomegaly. Given the extensive findings, I did consult Dr. Layton with GI. He reviewed the imaging. Findings are nonspecific. No need for antibiotics. No further workup for the mild transaminitis. Follow-up outpatient. Given the question for ileus versus early bowel obstruction, I did consult Dr. Sheffield. He reviewed the imaging as well. No ileus or bowel obstruction. Okay for discharge home. Patient was educated on all the results and the findings. She confirmed understanding. She is upset given that her symptoms have been chronic in nature without a true diagnosis. Will consult social work. social work evaluated the patient. Patient requesting other GI physicians for second opinion. Social work gave her other GIs in the area to take her insurance. Chest x-ray was personally reviewed interpreted by me, ED physician. Patient's left catheter is in correct placement. No pneumonia, effusion, cardiomegaly, pneumothorax. Radiology in agreement. At this point in time, no clear etiology to explain her pain. Recommend continuing her Lasix for her lower extremity edema. Follow-up with primary care physician and GI. She confirmed understand the plan. Patient stable to discharge home. Impression: 1. Chronic abdominal pain 2. Bilateral peripheral edema with history of same 3. Fall with history of frequent falls 4. Mild transaminitis Lab Data Labs: Laboratory Results - last 24 hr 06/30/25 06/30/25 06/30/25 10:38 10:38 11:25 WBC Cancelled 5.5 Corrected WBC Cancelled RBC Cancelled 3.19 L Hgb Cancelled 9.3 L Hct Cancelled 29.9 L MCV Cancelled 93.7 MCH Cancelled 29.2 MCHC Cancelled 31.1 L RDW Std Deviation Cancelled 49.9 H RDW Coeff of Millie Cancelled 14.6 Plt Count Cancelled 212 MPV Cancelled 9.4 Immature Gran % (Auto) Cancelled 0.200 Neut % (Auto) Cancelled 53.5 Lymph % (Auto) Cancelled 35.3 [place] % (Auto) Cancelled 6.3 Eos % (Auto) Cancelled 4.3 Baso % (Auto) Cancelled 0.4 Absolute Neuts (auto) Cancelled 3.0 Absolute Lymphs (auto) Cancelled 1.95 Total Counted Cancelled Neutrophils % (Manual) Cancelled Band Neutrophils % Cancelled Lymphocytes % (Manual) Cancelled Monocytes % (Manual) Cancelled Eosinophils % (Manual) Cancelled Basophils % (Manual) Cancelled Metamyelocytes % Cancelled Myelocytes % Cancelled Promyelocytes % Cancelled Blast Cells % Cancelled Plasma Cell % (Manual) Cancelled Other Cells % Cancelled Nucleated RBC % Cancelled 0 Nucleated RBCs/100 WBC Cancelled Differential Comment Cancelled Diff Path Review Cancelled Hypersegmented Neuts Cancelled Atypical Lymphocytes Cancelled Reactive Lymphocytes Cancelled Smudge Cells Cancelled Toxic Granulation Cancelled Toxic Vacuolation Cancelled Dohle Bodies Cancelled Sybil Rods Cancelled Platelet Estimate Cancelled Plt Morphology Comment Cancelled RBC Morphology Cancelled Cancelled Polychromasia Cancelled Hypochromasia Cancelled Basophilic Stippling Cancelled Anisocytosis Cancelled Microcytosis Cancelled Macrocytosis Cancelled Spherocytes Cancelled Sickle Cells Cancelled Target Cells Cancelled Tear Drop Cells Cancelled Ovalocytes Cancelled Stomatocytes Cancelled [place] Bodies Cancelled [place] Cells Cancelled Bite Cells Cancelled Crenated Cell Cancelled Acanthocytes (Spur) Cancelled Rouleaux Cancelled Schistocytes Cancelled Sodium 139 Potassium 4.8 Chloride 105 Carbon Dioxide 25.5 Anion Gap 8 BUN 9 Creatinine 0.56 L Estim Creat Clear Calc 143.19 Est GFR (MDRD) Non-Af 123 BUN/Creatinine Ratio 16.4 Glucose 106 H Calcium 9.3 Magnesium 2.1 Total Bilirubin 0.22 AST 41 H ALT 69 H Alkaline Phosphatase 148 H NT pro BNP II 309 Total Protein 5.9 Albumin 3.2 L Globulin 2.7 Albumin/Globulin Ratio 1.2 Lipase 15 Urine Color Urine Clarity Urine pH Ur Specific [place] Urine Protein Urine Glucose (UA) Urine Ketones Urine Occult Blood Urine Nitrite Urine Bilirubin Urine Urobilinogen Ur Leukocyte Esterase Urine RBC Urine WBC Ur Squamous Epith Cells Urine Bacteria Urine Mucus 06/30/25 12:58 WBC Corrected WBC RBC Hgb Hct MCV MCH MCHC RDW Std Deviation RDW Coeff of Millie Plt Count MPV Immature Gran % (Auto) Neut % (Auto) Lymph % (Auto) [place] % (Auto) Eos % (Auto) Baso % (Auto) Absolute Neuts (auto) Absolute Lymphs (auto) Total Counted Neutrophils % (Manual) Band Neutrophils % Lymphocytes % (Manual) Monocytes % (Manual) Eosinophils % (Manual) Basophils % (Manual) Metamyelocytes % Myelocytes % Promyelocytes % Blast Cells % Plasma Cell % (Manual) Other Cells % Nucleated RBC % Nucleated RBCs/100 WBC Differential Comment Diff Path Review Hypersegmented Neuts Atypical Lymphocytes Reactive Lymphocytes Smudge Cells Toxic Granulation Toxic Vacuolation Dohle Bodies Sybil Rods Platelet Estimate Plt Morphology Comment RBC Morphology Polychromasia Hypochromasia Basophilic Stippling Anisocytosis Microcytosis Macrocytosis Spherocytes Sickle Cells Target Cells Tear Drop Cells Ovalocytes Stomatocytes [place] Bodies [place] Cells Bite Cells Crenated Cell Acanthocytes (Spur) Rouleaux Schistocytes Sodium Potassium Chloride Carbon Dioxide Anion Gap BUN Creatinine Estim Creat Clear Calc Est GFR (MDRD) Non-Af BUN/Creatinine Ratio Glucose Calcium Magnesium Total Bilirubin AST ALT Alkaline Phosphatase NT pro BNP II Total Protein Albumin Globulin Albumin/Globulin Ratio Lipase Urine Color Straw Urine Clarity Clear Urine pH 8.0 Ur Specific [place] 1.015 Urine Protein Negative Urine Glucose (UA) Normal Urine Ketones Negative Urine Occult Blood Negative Urine Nitrite Negative Urine Bilirubin Negative Urine Urobilinogen Normal Ur Leukocyte Esterase Negative Urine RBC 0 SEEN Urine WBC 0 SEEN Ur Squamous Epith Cells 0-5 SEEN Urine Bacteria 0 SEEN Urine Mucus 0 SEEN Radiography Diagnostic Testing: Clinical Impression(s) from Imaging Studies Chest X-Ray 06/30/25 09:34 IMPRESSION: NO ACUTE FINDINGS. Reading Location: [id number] Abdomen/Pelvis CT 06/30/25 10:54 IMPRESSION: 1. Suspect mild focal inflammatory changes of the distal ileum, suspect focal mild nonspecific enteritis. Correlate for clinical evidence of mild inflammatory bowel disease as one potential etiology. Trace free fluid may be reactive. Given technologist provided history of trauma, consider additionally contusion or occult bowel injury however there is no definite free air to suggest this. Clinical follow-up as indicated. 2. Findings most favorable for borderline mild small-bowel ileus; although given the above partial/minimal obstruction perhaps related to ileal stricture is an additional consideration. 3. Interval percutaneous gastrostomy removal. Mild soft tissue thickening and trace fluid suspected along the tract. Correlate for clinical evidence of a localized soft tissue infection/tiny nondrainable abscess. 4. Similar trace LEFT pleural effusion. Trace RIGHT pleural effusion has enlarged minimally. 5. Minimally enlarged retroperitoneal lymph node, nonspecific and potentially reactive in the absence of known malignancy. Correlate with medical history and follow-up as indicated. 6. Mild splenomegaly. 7. Additional description as above. Reading Location: [id number] Discharge Plan Triage Chief Complaint: Fall ED Provider: Manoj Marley Dx/Rx/DC Orders Clinical Impression: Chronic abdominal pain Instructions: Abdominal Pain Prescriptions: No Action albuterol sulfate 90 mcg/actuation HFA aerosol inhaler 2 puff inhalation Q6H PRN (Reason: shortness of breath or wheezing) Qty: 8.5 0RF potassium chloride 20 mEq packet 20 meq PO BID Qty: 100 1RF lorazepam [Ativan] 0.5 mg tablet 0.5 mg PO Q12H meclizine 25 mg tablet 25 mg PO BID PRN (Reason: dizziness) indomethacin 50 mg capsule 50 mg PO TID PRN (Reason: pain) Rx Instructions: administer with food or milk tizanidine 4 mg capsule 4 mg PO TID PRN (Reason: muscle spasticity) sumatriptan succinate 6 mg/0.5 mL pen injector 6 mg SUBCUT Q12H PRN (Reason: MIGRAINE) zolpidem [Ambien CR] 12.5 mg tablet,ext release multiphase 12.5 mg PO QHS PRN (Reason: insomnia) Aimovig Autoinjector 70 mg/mL auto-injector 70 mg SUBCUT .month Patient Comments: [NO ORIGINAL SIG] Rx Instructions: pt takes on the 2nd acetaminophen [Children's Acetaminophen] 160 mg/5 mL suspension Patient Comments: [NO ORIGINAL SIG] dicyclomine 20 mg tablet 20 mg PO Q6H PRN (Reason: abdominal pain) docusate sodium 100 mg capsule 100 mg PO DAILY epinephrine [EpiPen 2-Scout] 0.3 mg/0.3 mL auto-injector 0.3 mg IM Q5-15M PRN (Reason: anaphylaxis) Qty: 2 1RF Rx Instructions: do not exceed 3 doses per episode Linzess 290 mcg capsule 290 mcg PO QDAY Qty: 90 0RF Patient Comments: ran out, was to be delivered today pantoprazole 40 mg tablet,delayed release (DR/EC) 40 mg PO DAILY Qty: 90 1RF (DME) Dexcom G7 Sensor Device See Rx Instructions .Route Qty: 1 5RF Rx Instructions: As directed (DME) Dexcom G7 Top Icer Misc See Rx Instructions .Route Qty: 1 5RF Rx Instructions: As directed (DME) lancets [OneTouch UltraSoft 2 Lancet] 30 gauge misc See Rx Instructions .Route Qty: 200 0RF Rx Instructions: Use once daily to check blood glucose level (DME) OneTouch Verio test strips Strip See Rx Instructions .Route Qty: 100 0RF Rx Instructions: Use one strip once per day to check blood glucose level ergocalciferol (vitamin D2) [Vitamin D2] 1,250 mcg (50,000 unit) capsule 1,250 mcg PO QWEEK Qty: 1 0RF spironolactone 50 mg tablet 50 mg PO BID Qty: 60 0RF magnesium oxide 400 mg magnesium tablet 400 mg PO BID Qty: 60 0RF torsemide 20 mg tablet 20 mg PO QDAY Qty: 30 0RF folic acid 1 mg tablet 1 mg PO QDAY Qty: 30 0RF sumatriptan succinate 100 mg tablet See Rx Instructions PO .COMPLEX Qty: 12 0RF Rx Instructions: take 1 tab at onset of headache; if no relief, may repeat 1 tab after at least 2 hrs; max = 2 tabs/24 hrs PO bisacodyl [Dulcolax (bisacodyl)] 5 mg tablet,delayed release (DR/EC) 20 mg PO ONCE Qty: 4 0RF Rx Instructions: Colonoscopy prep polyethylene glycol 3350 17 gram/dose powder See Rx Instructions .ROUTE .COMPLEX Qty: 238 0RF Rx Instructions: Mix entire bottle into 64oz clear liquid for colonoscopy prep; promethazine 25 mg suppository 25 mg MD Q6H PRN (Reason: nausea and vomiting) Qty: 12 1RF gabapentin 400 mg capsule 400 mg PO TID Qty: 270 0RF famotidine 20 mg tablet 20 mg PO DAILY Qty: 30 0RF Primary Care Provider: Rashawn Yip Referrals: Asif Layton DO [Med Staff - Active Staff, Gastroenterology] - 3-5 Days Rashawn Yip PA [Primary Care Provider, Internal Medicine] - 3-5 Days Activity Restrictions/Additional Instructions: Follow-up with primary care physician and Dr. Layton. Return back to ED if symptoms change or worsen. Your liver enzymes were mildly elevated here in the emergency department. You need to have this repeated outpatient with your primary care physician. Continue your diuretic for your bilateral lower extremity swelling. Print Language: Slovenian Disposition Disposition: Home, Self Care Discharge Date/Time: 06/30/25 14:45
[2025-06-30] MEDS: DiphenhydrAMINE 50 MG/ML Syringe 25 MG IV ×3 (10:18→14:21)
[2025-06-30] MEDS: 0.9% Normal Saline (1000mL) 1,000 ML 1000 ML IV (10:28)
--- NOTE | 2025-06-30 10:54 | CT_ITS ---
PROCEDURE: ABDOMEN/PELVIS W IV CONT ONLY 06/30/2025 REASON FOR EXAM: ABDOMINAL PAIN TECHNIQUE: Procedure Code: [id number] Modality: CT Procedure: ABDOMEN/PELVIS W IV CONT ONLY Coronal and Sagittal reconstruction series were generated. CONTRAST: Isovue-300 VOLUME: 97 mL One or more dose reduction techniques were used (e.g., Automated exposure control, adjustment of the mA and/or kV according to patient size, use of iterative reconstruction technique. RADIATION DOSE SUMMARY: CTDlvol: 13.30+ 20.61 mGy DLP: 1162.55 mGycm COMPARISON: 05/29/2025 FINDINGS: Lung bases: Similar trace LEFT pleural effusion. Trace RIGHT pleural effusion has enlarged minimally.. Liver: Unremarkable. Spleen: 14.4 cm. Gallbladder: Cholecystectomy. Pancreas: Unremarkable. Adrenals: Unremarkable. Kidneys: Unremarkable. Bowel: Moderate to high colonic stool burden. Relatively focal short-segment ascending colonic wall thickening favored related to underdistention given this was not present on recent exam 05/29/2025.. Borderline mildly dilated small bowel up to 3.0 cm without convincing single discrete transition. Mild focal wall thickening along the distal ileum involving a roughly 4.4 cm segment. Appendix not identified. Lymph nodes: LEFT para-aortic node, 11 mm short axis. Vasculature: Unremarkable. Peritoneum: Trace free fluid RIGHT lower quadrant adjacent ileal loops. Bladder: Unremarkable. Reproductive Organs: Unremarkable. Body Wall: Similar mild nonspecific body wall edema. Interval percutaneous gastrostomy removal. Mild soft tissue thickening and trace fluid suspected along the tract. Bones: Unremarkable. CT/Abdomen/Pelvis W IV Cont ONLY IMPRESSION: 1. Suspect mild focal inflammatory changes of the distal ileum, suspect focal m ild nonspecific enteritis. Correlate for clinical evidence of mild inflammatory bowel disease as one potential etiology. Trace f ree fluid may be reactive. Given technologist provided history of trauma, consider additionally contusion or occult bowel inj ury however there is no definite free air to suggest this. Clinical follow-up as indicated. 2. Findings most favorable for borderline mild small-bowel ileus; although give n the above partial/minimal obstruction perhaps related to ileal stricture is an additional consideration. 3. Interval percutaneous gastrostomy removal. Mild soft tissue thickening and t race fluid suspected along the tract. Correlate for clinical evidence of a localized soft tissue infection/tiny nondrainable ab scess. 4. Similar trace LEFT pleural effusion. Trace RIGHT pleural effusion has enlarg ed minimally. 5. Minimally enlarged retroperitoneal lymph node, nonspecific and potentially r eactive in the absence of known malignancy. Correlate with medical history and follow-up as indicated. 6. Mild splenomegaly. 7. Additional description as above. Reading Location: [id number]
[2025-06-30 11:12] LABS: AST(SGOT) 41 U/L (<=31); Alanine Aminotransfer ALT/SGPT 69 U/L (<=34); Albumin, Serum 3.2 g/dL (3.5-5.0); Alkaline Phosphatase 148 U/L (35-104); Anion Gap 8 (5-15); BUN 9 mg/dL (4-19); BUN/Creat Ratio 16.4 RATIO (10-20); Calcium,Total 9.3 mg/dL (7.6-11.0); Carbon Dioxide 25.5 mmol/L (21.0-32.0); Chloride 105 mmol/L (98-108); Estimated Creatinine Clearance 143.19 ml/min (50-250); Globulin 2.7 g/dL (2.2-4.2); Glucose 106 mg/dL (70-99); Lipase 15 U/L (13-75); Magnesium 2.1 mg/dL (1.5-2.2); Potassium 4.8 mmol/L (3.3-5.1); Pro- Brain NATRIURETIC PEPTIDE 309 pg/mL (<=450)
[2025-06-30 11:30] LABS: Hematocrit 29.9 % (37-47); Hemoglobin 9.3 g/dL (12.0-15.0); Immature Granulocytes Count 0.010 X10^3/uL (0.0-0.0); Mean Corp Hgb Conc 31.1 g/dL (32-36); Mean Corpuscular Volume 93.7 fL (81-99); Mean Platelet Vol. 9.4 fl (6.2-12.0); NRBC Flagged by Analyzer 0 % (0-5); Platelet Count 212 K/mm3 (150-450); RBC Distribution Width CV 14.6 % (11.6-14.6); RBC Distribution Width SD 49.9 fl (35.1-43.9); Red Blood Count 3.19 M/mm3 (4.2-5.4); White Blood Count 5.5 K/mm3 (4.4-11.0)
[2025-06-30 12:45] VITALS: BP 120/81; PULSE 87; RESP 12; O2SAT 98
--- NOTE | 2025-06-30 12:45 | ED.RN ---
Pt rang call light, this RN in to see pt. Pt states she wants to see the MD to discuss her CT results as she was able to read them online. This RN states that once the urine is collected and results as everything else that has been ordered was resulted. Pt does not want to wait and verbalizes frustration that she pee'd so long ago. This RN states that I recently took over her case from SIERRA Vasquez and her report she stated the urine was contaminated d/t toilet paper being placed in the urine. Pt verbalizes frustration stating well nobody told me not to put the toilet paper in there! Nobody told me I needed to go again! This RN apologized for that misunderstanding and asked pt if she thought she could pee again so we could send it off to the lab. Pt agreeable to attempting to urinate. Pt verbalizes that she doesn't want any vitals monitoring on her because the stickers irritate my skin and I dont' know why I even need these! This RN educated pt that the MD ordered telemetry monitoring but if she did not want to have them on that we could take them off. Pt asked to keep bp cuff and O2 monitor on in place of the tele. Pt not agreeable. Pt states it just took my blood pressure, use that! This RN informed pt that if she chose to refuse the vitals monitoring then that was up to her and it would be noted in her chart. Pt asks for something for nausea but states she can't take Zofran and wants 10 of Reglan but has to have 50 of Benadryl to tolerate it. This RN informed pt that she did recently receive 50 of Benadryl. Pt states that she did not. This RN pulled up mar to show pt and pt states that it's not true. This RN states that Christina RN stated pt received [address] and said they wanted the pt to receive 50 total so another 25 was given. Pt states Christina's a liar! This RN collects urine and sends to lab. Discussion had with Christina regarding Benadryl dosing and Yahir updated on pt request to see her now that urine was sent to lab and that she's asking for 10 of Regalan and 50 more of Benadryl to tolerate the Reglan. Dr. Klusty not agreeable to more Benadryl d/t recent dosing of 50 mg.
--- NOTE | 2025-06-30 13:00 | ED.RN ---
Christina, RN approached to discuss the Benadryl dosing and ensure that the pt received 50 mg of Benadryl. Christina states Flavia Sheridan RN was the RN who gave both doses. Flavia Sheridan RN in to see patient and educate on having received both doses. Pt continues to state that we're lying to her. Pt shakes her head during discusion in spite of being shown the mar and Flavia ensuring her that she was the one who gave both doses. Pt states that even if she received 50 of Benadryl that it was a few hours ago and that she would need another 50 now in order to receive the Reglan. Pt states you didn't even ask the Dr and said that I couldn't have more. This RN infomed pt that the discussion was had with Dr. Sinclair and that she stated she could not have another 50 d/t having already had 50. Pt states I told you I wanted to leave! This RN stated that pt had multiple requests and had gone to discuss with the MD but if she did not want to stay for her results as previously requested she could leave. Pt states that she does want to leave. [facility] paperwork prepared for pt.
[2025-06-30 13:03] LABS: Mucous, Urine 0 SEEN /hpf (<or=2+); Red Blood Cells-Urine 0 SEEN /hpf (0-5)
--- NOTE | 2025-06-30 13:10 | ED.RN ---
This RN entered pt room to remove central catheter/port access and provide ama paperwork. Pt states she wants to wait for MD re-eval after all. Dr. Sinclair in shortly thereafter to discuss results.
[2025-06-30 13:22] LABS: Color, Urine Straw (Yellow); Glucose, Dipstick Normal (Normal); Ketone-Dipstick Negative (Negative); Leukocyte Esterase-Dipstick Negative /ul (Negative); Nitrite-Dipstick Negative (Negative); Occult Blood-Urine Negative /ul (Negative); Protein-Dipstick Negative (Negative); Specific Gravity, Urine 1.015 (1.002-1.030); Urine Bilirubin Dipstick Negative (Negative)
[2025-06-30 13:41] LABS: Squamous Epithelial Cells - UA 0-5 SEEN /hpf (5-10)
--- NOTE | 2025-06-30 14:09 | ED.RN ---
This nurse was told that the patient did not believe that she received 50mg of Benadryl. Patient is requesting the she needs an additional 50mg of Benadryl to have with the order of Reglan. I showed the patient on the MAR where she received 2 25mg doses of Benadryl for her CT allergy to contrast. Patient became short with this nurse and with Faye ESQUIVEL. Patient states that we are lying to her and that she did not get the 50mg of Benadryl. Dr. Sinclair made aware of the situation.
--- NOTE | 2025-06-30 14:16 | ED.RN ---
Nurse entered room to administer Reglan and Toradol, and pt stated she'll have reaction if she doesn't get benadryl, informed her she already had bendryl [address] Sinclair was informed about this and entered the room to discuss the plan, pt denied she was have any reaction now, but states she will have if she doesn't get the benadryl, Dr Sinclair stated she will give her more benadryl and will discharge her. Sriram the forensic social worker was in the room when this nurse entered the room.
[2025-06-30 14:29] VITALS: BP 129/88; PULSE 101; RESP 18; TEMP 36.9; O2SAT 98
--- NOTE | 2025-06-30 16:41 | CM.ED ---
Social Work SW was asked to meet with patient by ER physician due to patients frustration with her medical condition and treatments. SW introduced self and role at [facility], patient accepting of visit. Patient was tearful during visit, with numerous complaints surrounding her medical care outside of the ER. Patient states that her GI doctor is not helping her the way she feels she needs, that she is tired of coming into the ER and wants a new GI doctor. SW offered to print a list of local GI doctors for patient. A list of GI physicians within 25 miles that accepted patients insurance was printed and given to patient, patient was grateful for same. Patient also asked for information for PCP doctors as she also wants to change her PCP. [facility] PCP and Why Wait brochure was given to patient. No further needs identified at this time. Hallie Costa, DATA PROCESSING SPECIALIST, MOTION PICTURE NARRATOR
== END 2025-06-30 14:45 | disposition home or self-care (01) ==
PROVIDERS: Emergency Provider Surgery; PCP Physician Assistant; Visit Provider Surgery
DX: R10.9 Unspecified abdominal pain (principal); Z93.1 Gastrostomy status; F31.9 Bipolar disorder, unspecified; E11.9 Type 2 diabetes mellitus without complications; R74.01 Elevation of levels of liver transaminase levels; D64.9 Anemia, unspecified; R16.1 Splenomegaly, not elsewhere classified; Z86.718 Personal history of other venous thrombosis and embolism; Z86.711 Personal history of pulmonary embolism; M79.89 Other specified soft tissue disorders; J90 Pleural effusion, not elsewhere classified; K21.9 Gastro-esophageal reflux disease without esophagitis; G89.29 Other chronic pain; R60.0 Localized edema; R29.6 Repeated falls
CPT/HCPCS: 36415; 71046; 74177; 80053; 81001; 83690; 83735; 83880; 85025; 96361; 96374; 96375; 96376; 99285; Q9967; A4216

== ENCOUNTER → 2025-07-05 | Outpatient (CLI) | payer MEDICAID, SELFPAY ==
--- NOTE | 2025-07-05 11:00 | RAD_ITS ---
PROCEDURE: CON INJ JOSE MARIA EVAL CVP INC FLURO 07/05/2025 REASON FOR EXAM: INFECTED PORT TECHNIQUE: Procedure Code: [id number] Modality: DX Procedure: CON INJ JOSE MARIA EVAL CVP INC FLURO Proximally 20 mL of Isovue-300 was injected under fluoroscopic visualization. COMPARISON: No relevant prior. FINDINGS: Could not aspirate from the catheter. No evidence of extravasation of contrast. Increased pressure had to be applied during the injection of contrast. Slow flow of contrast from the catheter tip was noted with contrast flowing backwards around the catheter. Incidental note is made of a cardiac loop recorder. RAD/Con Inj Jose Maria Eval CVP Inc Fluro IMPRESSION: Although the left-sided Port-A-Cath was patent, contrast was difficult to injec t and there was backwards flow around the catheter suggesting a FIBRIN SHEATH. No extraluminal extravasation was noted. Reading Location: [place] [id number]
[2025-07-05] MEDS: 0.9% Saline Lock 10 ML Syringe IV ×2 (12:16→13:52)
[2025-07-05] MEDS: DiphenhydrAMINE 50 MG/ML Syringe IV (12:17)
[2025-07-05 12:25] VITALS: BP 143/91; PULSE 90; RESP 18; O2SAT 100
[2025-07-05 12:38] LABS: Hematocrit 26.9 % (37-47); Hemoglobin 8.8 g/dL (12.0-15.0); Immature Granulocytes Count 0.010 X10^3/uL (0.0-0.0); Mean Corp Hgb Conc 32.7 g/dL (32-36); Mean Corpuscular Volume 90.6 fL (81-99); Mean Platelet Vol. 8.9 fl (6.2-12.0); NRBC Flagged by Analyzer 0 % (0-5); Platelet Count 257 K/mm3 (150-450); RBC Distribution Width CV 14.1 % (11.6-14.6); RBC Distribution Width SD 46.5 fl (35.1-43.9); Red Blood Count 2.97 M/mm3 (4.2-5.4); White Blood Count 3.9 K/mm3 (4.4-11.0)
== END | disposition home or self-care (01) ==
LOC: RAD 10:42
PROVIDERS: PCP Physician Assistant; Referring Provider Surgery; Visit Provider Surgery
DX: T80.219A Unspecified infection due to central venous catheter, initial encounter (principal); Y71.8 Miscellaneous cardiovascular devices associated with adverse incidents, not elsewhere classified
CPT/HCPCS: 36598; 85025; 87040; 96374; Q9967; A4216

== ENCOUNTER 2025-07-08 12:12 | Observation (INO) | payer MEDICAID, SELFPAY ==
[2025-07-08 12:15] VITALS: BP 118/83; PULSE 91; RESP 18; TEMP 36.6; O2SAT 98; BMI 35.7
[2025-07-08] MEDS: 0.9% Normal Saline (1000mL) 1,000 ML 999 ML IV (12:56)
[2025-07-08 13:21] LABS: Lipase 12 U/L (13-75)
[2025-07-08 13:22] LABS: AST(SGOT) 8 U/L (<=31); Alanine Aminotransfer ALT/SGPT 12 U/L (<=34); Albumin, Serum 2.6 g/dL (3.5-5.0); Alkaline Phosphatase 81 U/L (35-104); Anion Gap 6 (7-18); BUN 14 mg/dL (4-19); BUN/Creat Ratio 24.1 RATIO (10-20); Calcium,Total 8.0 mg/dL (7.6-11.0); Carbon Dioxide 22.6 mmol/L (20.0-29.0); Chloride 108 mmol/L (96-106); Estimated Creatinine Clearance 137.30 ml/min (50-250); Globulin 1.9 g/dL (2.2-4.2); Glucose 145 mg/dL (70-99); Potassium 4.0 mmol/L (3.5-5.1)
[2025-07-08 13:26] LABS: Hematocrit 22.8 % (37-47); Hemoglobin 7.1 g/dL (12.0-15.0); Immature Granulocytes Count 0.010 X10^3/uL (0.0-0.0); Mean Corp Hgb Conc 31.1 g/dL (32-36); Mean Corpuscular Volume 89.4 fL (81-99); Mean Platelet Vol. 8.6 fl (6.2-12.0); NRBC Flagged by Analyzer 0 % (0-5); Platelet Count 239 K/mm3 (150-450); RBC Distribution Width CV 13.3 % (11.6-14.6); RBC Distribution Width SD 44.0 fl (35.1-43.9); Red Blood Count 2.55 M/mm3 (4.2-5.4); White Blood Count 4.9 K/mm3 (4.4-11.0)
--- NOTE | 2025-07-08 14:48 | PCM.HP.STD ---
HPI - General General Date of Admission: 07/08/25 Date of Service: 07/08/25 Chief Complaint: Intractable nausea, emesis. HPI Narrative The patient is a 35 y/o F w/ PMHx: Obesity, Chronic normocytic anemia, GERD, Anxiety and Depression/Bipolar disorder, Diabetes mellitus type II, Hx Substance abuse, PCOS, Hx Factor 5 Leiden deficiency with history of VTE (DVT, PE), Chronic migraines headaches, noted recent outpatient surgery evaluation 07/05/2025 secondary to concern of viability of the port with follow-up 07/05/2025 venous access device evaluation noted to be patent however noted difficulty to inject with backwards flow around the catheter with no extraluminal extravasation noted however now presents to the [facility] ED on 07/08/2025 with patient reporting debility, weakness, multiple falls with intractable nausea and emesis and difficulty keeping items down with history of removal of PEG tube 3 weeks prior with decreased urine output and questionable blood in her stool prompting ED evaluation. There is no reported blood in her emesis. Patient notes still having chronic constipation/loose stools that is unchanged. Workup in the ED included T97.8, heart rate 91, BP 118/83, respiratory rate 18, 98% on room air, CBC with DepoCyt 4.9, hemoglobin 7.1, MCV 89.4, platelet 239 without marked shift, CMP with chloride 108, BUN/creatinine 14/0.58, GFR 122, glucose 145, hepatic profile not marked appearing type and cross initiated for 1 unit per ED, stool guiac pending per ED. In the ED patient ministered 1 L normal saline, diphenhydramine 50 mg p.o. x 1, 25 mg p.o. x 1 and prochlorperazine 5 mg IV x 1. [facility] Medical History Infection due to Port-A-Cath Irritation around percutaneous endoscopic gastrostomy (PEG) tube site Walker as ambulation aid CAP (community acquired pneumonia) Hx of substance abuse Bipolar disorder Kidney stones GERD (gastroesophageal reflux disease) Non-smoker Generalized weakness Anemia Easy bruising Dietary restriction Implantable loop recorder present Wears glasses Anxiety MRSA infection Substance abuse History of steroid therapy Diabetes Injury of head and neck History of IBS Gastric reflux Neuropathy delivery delivered Arthritis Prolonged QT interval PCOS (polycystic ovarian syndrome) Factor V Leiden Anxiety Depression Pulmonary embolism DVT (deep venous thrombosis) TIA (transient ischemic attack) Ovarian cyst Home Medications ?Medication ?Instructions ?Recorded ?Last Taken ?Type epinephrine 0.3 mg/0.3 mL 0.3 mg (0.3 mL) IM Q5-15M PRN 10/05/24 Unknown Rx injection, auto-injector (EpiPen anaphylaxis #2 ea 2-Scout) albuterol sulfate 90 mcg/actuation 2 puff inhalation Q6H PRN 11/19/24 Unknown Rx aerosol inhaler shortness of breath or wheezing #8.5 grams sumatriptan succinate 6 mg/0.5 mL 6 mg subcut Q12H PRN MIGRAINE 12/11/24 Unknown History subcutaneous pen injector zolpidem 12.5 mg tablet,extended 12.5 mg PO QHS PRN insomnia 12/18/24 06/20/25 History release,multiphase (Ambien CR) linaclotide 290 mcg capsule 290 mcg PO QDAY #90 caps 03/26/25 06/20/25 Rx (Linzess) potassium chloride 20 mEq oral 20 meq PO BID #100 ea 04/15/25 Unknown Rx packet pantoprazole 40 mg tablet,delayed 40 mg PO DAILY #90 TABLETS 04/20/25 06/20/25 Rx release blood-glucose sensor (Dexcom G7 #1 ea 04/23/25 Unknown Rx Sensor device) blood-glucose,coremaker bench,cont #1 ea 04/23/25 Unknown Rx (Dexcom G7 Communications Specialist) blood sugar diagnostic (OneTouch #100 ea 04/27/25 Unknown Rx Verio test strips) lancets 30 gauge (OneTouch #200 ea 04/27/25 Unknown Rx UltraSoft 2 Lancet) ergocalciferol (vitamin D2) 1,250 1,250 mcg PO QWEEK #1 cap 05/12/25 06/14/25 Rx mcg (50,000 unit) capsule (Vitamin D2) folic acid 1 mg tablet 1 mg PO QDAY #30 tabs 05/12/25 06/20/25 Rx magnesium oxide 400 mg PO BID #60 tabs 05/12/25 06/20/25 Rx spironolactone 50 mg tablet 50 mg PO BID #60 tabs 05/12/25 06/20/25 Rx torsemide 20 mg tablet 20 mg PO QDAY #30 tabs 05/12/25 06/20/25 Rx indomethacin 50 mg capsule 50 mg PO TID PRN pain 05/17/25 06/20/25 History lorazepam 0.5 mg tablet (Ativan) 0.5 mg PO Q12H 05/17/25 06/20/25 History meclizine 25 mg tablet 25 mg PO BID PRN dizziness 05/17/25 Unknown History tizanidine 4 mg capsule 4 mg PO TID PRN muscle spasticity 05/17/25 06/20/25 History erenumab-aooe 70 mg/mL 70 mg subcut .month 05/29/25 05/24/25 History subcutaneous auto-injector (Aimovig Autoinjector) sumatriptan succinate 100 mg tablet See Rx Instructions PO .COMPLEX 06/01/25 Unknown Rx #12 tabs bisacodyl 5 mg tablet,delayed 20 mg (4 x 5 mg) PO ONCE #4 tabs 06/08/25 06/20/25 Rx release (Dulcolax (bisacodyl)) polyethylene glycol 3350 17 See Rx Instructions .Route 06/08/25 Unknown Rx gram/dose oral powder .COMPLEX #238 grams Held on 06/21/25. Instructions: didnt do prep promethazine 25 mg rectal 25 mg PA Q6H PRN nausea and 06/14/25 Unknown Rx suppository vomiting #12 ea gabapentin 400 mg capsule 400 mg PO TID #270 caps 06/15/25 06/20/25 Rx acetaminophen 160 mg/5 mL oral mg 06/18/25 06/20/25 History suspension (Children's Acetaminophen) dicyclomine 20 mg tablet 20 mg PO Q6H PRN abdominal pain 06/18/25 06/20/25 History docusate sodium 100 mg capsule 100 mg PO DAILY for constipation 06/18/25 06/20/25 History famotidine 20 mg tablet 20 mg PO DAILY #30 tabs 06/18/25 06/20/25 Rx Allergy/AdvReac Type Severity Reaction Status Date / Time bee venom protein (honey Allergy Severe Anaphylaxis Verified 07/08/25 12:14 bee) (bee sting) ziprasidone (From Geodon) Allergy Severe facial Verified 07/08/25 12:14 swelling ciprofloxacin (From Cipro) Allergy Intermediate Angioedema Verified 07/08/25 12:14 levofloxacin (From Levaquin) Allergy Intermediate Angioedema Verified 07/08/25 12:14 adhesive tape Allergy Mild Rash Verified 07/08/25 12:14 latex Allergy Mild Rash Verified 07/08/25 12:14 Iodinated Contrast Media Allergy Hives Verified 07/08/25 12:14 ondansetron (From Zofran) Allergy Hives Verified 07/08/25 12:14 propranolol Allergy Angioedema Verified 07/08/25 12:14 midazolam (From Versed) AdvReac Severe Other Verified 07/08/25 12:14 haloperidol (From Haldol) AdvReac Other Verified 07/08/25 12:14 metoclopramide (From Reglan) AdvReac Other Verified 07/08/25 12:14 Family History Father Alcoholism Hypertension Thyroid disorder Mother Anxiety Autoimmune disorder Bleeding disorder Hypertension Mental disorder CVA (cerebral vascular accident) Suicide attempt Thyroid disorder Other Breast cancer Colon cancer Diabetes Heart disease Myocardial infarction Ovarian cancer Surgical History Hx of colonoscopy PEG (percutaneous endoscopic gastrostomy) status S/P percutaneous endoscopic gastrostomy (PEG) tube placement History of vascular access device Port-A-Cath in place H/O hernia repair H/O wisdom tooth extraction H/O oophorectomy Hx of cholecystectomy H/O tubal ligation Social History adopted: No household members: children and none number of children: 2 current occupational status: unemployed pets and animals: No sexually active: No Smoking Status: Never smoker alcohol intake: never substance use type: does not use caffeine: No frequency: 3-4 times per week do you feel safe at home: Yes ROS ROS Narrative Admission Review of Systems: CONSTITUTIONAL: No weight loss, fever, chills, + weakness or fatigue. HEENT: Eyes: No visual loss, blurred vision, double vision or yellow sclerae. Ears, Nose, Throat: No hearing loss, sneezing, congestion, runny nose or sore throat. SKIN: No rash or itching, lesions, wounds except + occasional staged ecchymoses, abrasions. CARDIOVASCULAR: + Chronic distal edema. No chest pain, chest pressure or chest discomfort, palpitations, orthopnea, syncopal events. RESPIRATORY: No shortness of breath, cough or sputum, wheezing, hemoptysis. GASTROINTESTINAL: + anorexia, nausea, vomiting, blood in her stools. + Chronic diarrhea/constipation unchanged. No abdominal pain, melena. GENITOURINARY: No dysuria, frequency, urgency or retention. NEUROLOGICAL: + Chronic migraines. No dizziness, syncope, paralysis, ataxia, numbness or tingling in the extremities, focal weakness, change in bowel or bladder control, seizure. MUSCULOSKELETAL: + muscle, back pain, joint pain or stiffness. HEMATOLOGIC: + Chronic anemia, easy bleeding/bruising, current noted blood in her stool additionally. LYMPHATICS: No enlarged nodes. No history of splenectomy. PSYCHIATRIC: + History of anxiety depression/bipolar disorder. ENDOCRINOLOGIC: No reports of sweating, cold or heat intolerance. No polyuria or polydipsia. ALLERGIES: + History of hives, anaphylaxis. Patient's Goals Of Care . What would you like to achieve or improve as a result of your hospital stay?: Reduced nausea, no emesis, SNF transition. Vital Signs Vital Signs Vital Signs: 07/08/25 12:15 Temperature 97.8 F Temperature Source Oral Pulse Rate 91 Respiratory Rate 18 Blood Pressure 118/83 H Blood Pressure Mean 94 Pulse Ox 98 Oxygen Delivery Method Room Air Weight Weight: 189 lb 6.033 oz Body Mass Index (BMI) 35.7 Physical Exam Narrative Physical Examination: General: Awake, alert, oriented x 3 and cooperative, seated upright in the ED bed, fatigued appearing, on acute distress, requesting more nausea medication. Skin: Normal color, normal turgor, no icterus, no cyanosis except occasional stage ecchymoses, abrasions. HEENT: AT/NC, EOMI, PERRLA, dry MM, no carotid bruits or JVD noted. Lungs: Mildly diminished, greater bases, proper effort, no rales, ronchi or wheezing. Heart: Regular rate and rhythm; no gallop, rub audible. Abdomen: Soft, NTTP, no obvious distention, mildly hyperactive bowel sounds, no appreciated HSM. Extremities: No cyanosis, no clubbing, pedal to mid calf chronic edema. Neurological: Patient awake, alert, oriented as noted, cognitive function intact; pupils equally reactive to light and accommodation, cranial nerves grossly normal, moving all 4 extremities, no focal deficits, strength moderately to severely globally decreased secondary to acute presentation complicated by underlying comorbidities. Psychiatric: Affect appears flat, fatigued, no acute evidence of depressive and anxiety feelings but does have underlying history. Results Lab / Micro Data 07/08/25 12:55 07/08/25 12:55 Labs: Laboratory Results - last 24 hr 07/08/25 12:23: POC Glucose 144 H 07/08/25 12:55: WBC 4.9, RBC 2.55 L, Hgb 7.1 L, Hct 22.8 L, MCV 89.4, MCH 27.8, MCHC 31.1 L, RDW Std Deviation 44.0 H, RDW Coeff of Millie 13.3, Plt Count 239, MPV 8.6, Immature Gran % (Auto) 0.200, Neut % (Auto) 53.7, Lymph % (Auto) 35.3, [place] % (Auto) 5.7, Eos % (Auto) 4.5, Baso % (Auto) 0.6, Absolute Neuts (auto) 2.7, Absolute Lymphs (auto) 1.74, Nucleated RBC % 0, Sodium 137, Potassium 4.0, Chloride 108 H, Carbon Dioxide 22.6, Anion Gap 6 L, BUN 14, Creatinine 0.58 L, Estim Creat Clear Calc 137.30, Est GFR (MDRD) Non-Af 122, BUN/Creatinine Ratio 24.1 H, Glucose 145 H, Calcium 8.0, Total Bilirubin < 0.15, AST 8, ALT 12, Alkaline Phosphatase 81, Total Protein 4.5 L, Albumin 2.6 L, Globulin 1.9 L, Albumin/Globulin Ratio 1.4, Lipase 12 L Micro: Microbiology 07/08/25 14:35 Stool Stool Occult Blood (SANJUANA) - Final Occult Blood Positive Assessment & Plan Assessment/Plan (1) Nausea & vomiting: PLAN: Plan The patient is a 35 y/o F w/ PMHx: Obesity, Chronic normocytic anemia, GERD, Anxiety and Depression/Bipolar disorder, Diabetes mellitus type II, Hx Substance abuse, PCOS, Hx Factor 5 Leiden deficiency with history of VTE (DVT, PE), Chronic migraines headaches, noted recent outpatient surgery evaluation 07/05/2025 secondary to concern of viability of the port with follow-up 07/05/2025 venous access device evaluation noted to be patent however noted difficulty to inject with backwards flow around the catheter with no extraluminal extravasation noted however now presents to the [facility] ED on 07/08/2025 with patient reporting debility, weakness, multiple falls with intractable nausea and emesis and difficulty keeping items down with history of removal of PEG tube 3 weeks prior with decreased urine output and questionable blood in her stool prompting ED evaluation. #1. Intractable nausea and emesis with poor oral intake, concern for appropriate oral intake status post recent PEG tube removal w/ adult FTT complicated by #2 with concern for severe protein calorie malnutrition: Patient with PEG to removal secondary to discomfort with erosion noted upon removal, will maintain on aggressive IV fluids, maintain on continuous IV Protonix, will have antiemetics and pain regimen as needed, UDS requested in case cyclic emesis associate with substance, nutrition consulted for recommendation, mag and Phos levels requested. PT/OT/CM consulted for discharge planning. Patient interested in facility placement. #2. Acute on Chronic normocytic anemia with reported blood in the stool with history of previous positive guaiac: Most recently noted intervention/evaluation by GI 06/21/2025 upper GI endoscopy with normal esophagus, eroding gastrostomy tube present with a PEG cut externally, grasped and removed. Admission hemoglobin 7.1, baseline primarily 7-8, most recently 07/05/2025 hemoglobin 8.8, will continue with plan PRBC administration x 1 unit per ED, will continue to trend H&H assessment, will initiate and maintain on Protonix, if hemoglobin alters significantly low threshold to involve gastroenterology for repeat evaluation, in the interim we will maintain on clears with n.p.o. status at midnight in case hemoglobins do not remain stable and evaluation by GI as required. #3. Chronic migraines: If necessary will utilize patient triptan therapy as well as other as needed agents/symptom control. #4. Diabetes mellitus type II with chronic neuropathy: Noted history, does not appear to be on medications currently but clarified to be certain, last hemoglobin A1c 12/08/2021 noted to be 7.4%, will request repeat level at this time, in the interim given presentation concerns maintain on clears, accu checks w/ ISS, continue gabapentin if able to tolerate oral intake. #5. Anxiety and depression/bipolar disorder: Will continue patient home psychiatric regimen once oral intake appropriately tolerated. #6. PCOS: Will temporarily hold home spironolactone regimen given intractable N/V, add back once appropriate. #7. Factor V Leiden deficiency with history of VTE: Patient with history of DVT, PE, given concern for GI bleed will defer chemoprophylaxis, per current list is not on any anticoagulant therapy but clarified to be certain, will need reevaluated once anemia and possible GI bleed evaluation completed. #8. Obesity: Weight loss and lifestyle changes encouraged. #9. GERD: As noted will maintain on continued PPI IV. #10. DVT prophylaxis: SCDs. Charges/Coding Visit Charges Inpatient E&M: 57736 Init Hosp L3
[2025-07-08 15:17] VITALS: BP 98/67; PULSE 89; RESP 16; O2SAT 99
[2025-07-08 15:18] VITALS: BP 98/67; PULSE 89; RESP 16; TEMP 36.6; O2SAT 99
[2025-07-08 16:29] VITALS: BMI 35.4
--- NOTE | 2025-07-08 16:30 | EX.ED.DYSGE1 ---
HPI History of Present Illness Chief Complaint: Nausea/Vomiting Narrative Narrative: Patient is a 35-year-old female presenting to the emergency department for nausea and vomiting for the past week acutely however since December chronically, lower abdominal discomfort, difficulty urinating and decreased p.o. intake. Patient has an extensive past medical history as below including IBS, PCOS, generalized weakness with frequent falls, bipolar disorder, substance abuse, polypharmacy. Patient recently had a PEG tube removed little more than a month ago. She states that over the past week she has had nausea with nonbilious nonbloody diarrhea. Endorses intermittent low grade fever. Denies chest pain, SOB, dysuria, hematuria. She states she has chronic abdominal pain and reports the lower suprapubic pain is slightly worse than normal. Patient reports multiple times that her primary care doctor and multiple other physicians recommended that she be admitted to a long-term facility. She states she currently receives at home health and lives at home alone. She reports that she has fallen 3 times this morning. States because her legs give out on her because she is so weak from not eating or drinking well due to the nausea and vomiting. She endorses striking the front of her head with no loss of consciousness. She is not on any oral anticoagulation. Denies any neck or back pain. [facility] Medical History Infection due to Port-A-Cath Irritation around percutaneous endoscopic gastrostomy (PEG) tube site Walker as ambulation aid CAP (community acquired pneumonia) Hx of substance abuse Bipolar disorder Kidney stones GERD (gastroesophageal reflux disease) Non-smoker Generalized weakness Anemia Easy bruising Dietary restriction Implantable loop recorder present Wears glasses Anxiety MRSA infection Substance abuse History of steroid therapy Diabetes Injury of head and neck History of IBS Gastric reflux Neuropathy delivery delivered Arthritis Prolonged QT interval PCOS (polycystic ovarian syndrome) Factor V Leiden Anxiety Depression Pulmonary embolism DVT (deep venous thrombosis) TIA (transient ischemic attack) Ovarian cyst Home Medications ?Medication ?Instructions ?Recorded ?Last Taken ?Type epinephrine 0.3 mg/0.3 mL 0.3 mg (0.3 mL) IM Q5-15M PRN 10/05/24 Unknown Rx injection, auto-injector (EpiPen anaphylaxis #2 ea 2-Scout) albuterol sulfate 90 mcg/actuation 2 puff inhalation Q6H PRN 11/19/24 Unknown Rx aerosol inhaler shortness of breath or wheezing #8.5 grams sumatriptan succinate 6 mg/0.5 mL 6 mg subcut Q12H PRN MIGRAINE 12/11/24 Unknown History subcutaneous pen injector zolpidem 12.5 mg tablet,extended 12.5 mg PO QHS PRN insomnia 12/18/24 06/20/25 History release,multiphase (Ambien CR) linaclotide 290 mcg capsule 290 mcg PO QDAY #90 caps 03/26/25 06/20/25 Rx (Linzess) potassium chloride 20 mEq oral 20 meq PO BID #100 ea 04/15/25 Unknown Rx packet pantoprazole 40 mg tablet,delayed 40 mg PO DAILY #90 TABLETS 04/20/25 06/20/25 Rx release blood-glucose sensor (Dexcom G7 #1 ea 04/23/25 Unknown Rx Sensor device) blood-glucose,professor of religion,cont #1 ea 04/23/25 Unknown Rx (Dexcom G7 Metal Moulder'[employer] Assistant) blood sugar diagnostic (OneTouch #100 ea 04/27/25 Unknown Rx Verio test strips) lancets 30 gauge (OneTouch #200 ea 04/27/25 Unknown Rx UltraSoft 2 Lancet) ergocalciferol (vitamin D2) 1,250 1,250 mcg PO QWEEK #1 cap 05/12/25 06/14/25 Rx mcg (50,000 unit) capsule (Vitamin D2) folic acid 1 mg tablet 1 mg PO QDAY #30 tabs 05/12/25 06/20/25 Rx magnesium oxide 400 mg PO BID #60 tabs 05/12/25 06/20/25 Rx spironolactone 50 mg tablet 50 mg PO BID #60 tabs 05/12/25 06/20/25 Rx torsemide 20 mg tablet 20 mg PO QDAY #30 tabs 05/12/25 06/20/25 Rx indomethacin 50 mg capsule 50 mg PO TID PRN pain 05/17/25 06/20/25 History lorazepam 0.5 mg tablet (Ativan) 0.5 mg PO Q12H 05/17/25 06/20/25 History meclizine 25 mg tablet 25 mg PO BID PRN dizziness 05/17/25 Unknown History tizanidine 4 mg capsule 4 mg PO TID PRN muscle spasticity 05/17/25 06/20/25 History erenumab-aooe 70 mg/mL 70 mg subcut .month 05/29/25 05/24/25 History subcutaneous auto-injector (Aimovig Autoinjector) sumatriptan succinate 100 mg tablet See Rx Instructions PO .COMPLEX 06/01/25 Unknown Rx #12 tabs bisacodyl 5 mg tablet,delayed 20 mg (4 x 5 mg) PO ONCE #4 tabs 06/08/25 06/20/25 Rx release (Dulcolax (bisacodyl)) polyethylene glycol 3350 17 See Rx Instructions .Route 06/08/25 Unknown Rx gram/dose oral powder .COMPLEX #238 grams Held on 06/21/25. Instructions: didnt do prep promethazine 25 mg rectal 25 mg MN Q6H PRN nausea and 06/14/25 Unknown Rx suppository vomiting #12 ea gabapentin 400 mg capsule 400 mg PO TID #270 caps 06/15/25 06/20/25 Rx acetaminophen 160 mg/5 mL oral mg 06/18/25 06/20/25 History suspension (Children's Acetaminophen) dicyclomine 20 mg tablet 20 mg PO Q6H PRN abdominal pain 06/18/25 06/20/25 History docusate sodium 100 mg capsule 100 mg PO DAILY for constipation 06/18/25 06/20/25 History famotidine 20 mg tablet 20 mg PO DAILY #30 tabs 06/18/25 06/20/25 Rx Allergy/AdvReac Type Severity Reaction Status Date / Time bee venom protein (honey Allergy Severe Anaphylaxis Verified 07/08/25 12:14 bee) (bee sting) ziprasidone (From Geodon) Allergy Severe facial Verified 07/08/25 12:14 swelling ciprofloxacin (From Cipro) Allergy Intermediate Angioedema Verified 07/08/25 12:14 levofloxacin (From Levaquin) Allergy Intermediate Angioedema Verified 07/08/25 12:14 adhesive tape Allergy Mild Rash Verified 07/08/25 12:14 latex Allergy Mild Rash Verified 07/08/25 12:14 Iodinated Contrast Media Allergy Hives Verified 07/08/25 12:14 ondansetron (From Zofran) Allergy Hives Verified 07/08/25 12:14 propranolol Allergy Angioedema Verified 07/08/25 12:14 midazolam (From Versed) AdvReac Severe Other Verified 07/08/25 12:14 haloperidol (From Haldol) AdvReac Other Verified 07/08/25 12:14 metoclopramide (From Reglan) AdvReac Other Verified 07/08/25 12:14 Family History Father Alcoholism Hypertension Thyroid disorder Mother Anxiety Autoimmune disorder Bleeding disorder Hypertension Mental disorder CVA (cerebral vascular accident) Suicide attempt Thyroid disorder Other Breast cancer Colon cancer Diabetes Heart disease Myocardial infarction Ovarian cancer Surgical History Hx of colonoscopy PEG (percutaneous endoscopic gastrostomy) status S/P percutaneous endoscopic gastrostomy (PEG) tube placement History of vascular access device Port-A-Cath in place H/O hernia repair H/O wisdom tooth extraction H/O oophorectomy Hx of cholecystectomy H/O tubal ligation Social History adopted: No household members: children and none number of children: 2 current occupational status: unemployed pets and animals: No sexually active: No Smoking Status: Never smoker alcohol intake: never substance use type: does not use caffeine: No frequency: 3-4 times per week do you feel safe at home: Yes ROS ROS ED ROS Narrative see HPI EXAM Physical Exam Narrative Exam Narrative: Vital signs: Reviewed General: Alert and orientedx3. No acute distress. Nontoxic. HEENT: Head is normocephalic and atraumatic.no signs of trauma to the head or face. No cephalhematoma, lacerations or abrasions. Sinuses nontender, pupils 2 mm equal round and reactive. Extraocular movements intact. Nares are patent. No septal hematoma. Oropharynx and throat exams normal. No oropharyngeal trauma. Neck: Supple without lymphadenopathy nontender. No midline cervical spinal tenderness to palpation. No step-offs or deformities. Cardiovascular: Regular rate and rhythm, no murmurs. No rubs or gallops. Normal S1 and S2 Respiratory: Clear to auscultation bilaterally. No wheezes, rales, rhonchi Chest: Chest wall is atraumatic and nontender to palpation with no crepitus, erythema or ecchymosis. Abdominal: Soft and mildly tender to palpation throughout with delayed patient facial grimacing. Normal bowel sounds. No guarding or rebound. Nonsurgical abdomen Extremities: No tenderness. No bruising. Normal range of motion. Normal sensation. Skin: No rash or redness. Neurological: Cranial nerves II through XII are grossly intact. Normal strength and sensation. Normal cerebellar function The rest of the physical exam is unremarkable Const Vital Signs: 07/08/25 12:15 Temperature 97.8 F Temperature Source Oral Pulse Rate 91 Respiratory Rate 18 Blood Pressure 118/83 H Blood Pressure Mean 94 Pulse Ox 98 Oxygen Delivery Method Room Air MDM MDM MDM Narrative Medical decision making narrative: Patient is a 35-year-old female presenting to the emergency department for multiple complaints that can be seen in the HPI. Patient was seen and examined. Vitals are stable. Patient resting bed comfortably in no acute distress. She is nontoxic-appearing. Fluid bolus given. Patient states that she has allergies to multiple antiemetics including Zofran, Compazine and Reglan. She states that she must receive IV Benadryl due to feeling like bugs are crawling on me. She denies any anaphylactic allergy or rashes. I offered 5 mg IV Compazine and p.o. Benadryl, when the nurse went to give 25 mg of p.o. Benadryl she states that she must receive 50 mg. I explained to her that I am agreeable with prescribing her PO Benadryl but will not give her IV Benadryl. Patient just had a CT scan done on 06/30 that showed enteritis and possible ileus. She has been having normal BMs. Given her nonsurgical abdominal exam, I do not think she needs repeat imaging of her abdomen given this was just 7 days ago. If there is a significant Wbc, will obtain ct however think this is not needed at this time. CBC with no leukocytosis and acute on chronic anemia of 7.1. She has been this low previously. On reevaluation she states that I told you I had bleeding in my bowel movements. I informed the patient that she did not tell me this and may have told nursing staff. She states that over the past week she has had intermittent bright red blood per rectum. She states she has had this prior and they wanted to do a colonoscopy however she could not tolerate the prep due to nausea and vomiting. Rectal exam was done with normal external exam with no hemorrhoids or fissures. No grossly melanotic or bloody stool. Patient type and screened for 1 PRBC. CMP with no significant abnormalities. Electrolytes are within normal limits. Lipase is not elevated. Patient unable to urinate while here in the ED. in terms of the patient's falls is because she feels weak, weakness may be due to the anemia or more chronic in nature. She did strike her head but is not on any oral anticoagulation has no signs of trauma to the head or face and has a normal neurologic exam, I do not think she requires CT imaging of the brain. Patient states multiple times that she feels that she cannot go home and needs SNF placement. Will admit for placement. Admitted to Dr. Purcell, hospitalist. Clinical impression: Acute on chronic anemia Falls Generalized weakness History & Record Review Discussion w/independent historian: Patient Additional record(s) reviewed:: Prior ED visit and Prior labs Lab Data Attestation: I reviewed the patient's lab results. Labs: Laboratory Results - last 24 hr 07/08/25 07/08/25 12:23 12:55 WBC 4.9 RBC 2.55 L Hgb 7.1 L Hct 22.8 L MCV 89.4 MCH 27.8 MCHC 31.1 L RDW Std Deviation 44.0 H RDW Coeff of Millie 13.3 Plt Count 239 MPV 8.6 Immature Gran % (Auto) 0.200 Neut % (Auto) 53.7 Lymph % (Auto) 35.3 [place] % (Auto) 5.7 Eos % (Auto) 4.5 Baso % (Auto) 0.6 Absolute Neuts (auto) 2.7 Absolute Lymphs (auto) 1.74 Nucleated RBC % 0 Sodium 137 Potassium 4.0 Chloride 108 H Carbon Dioxide 22.6 Anion Gap 6 L BUN 14 Creatinine 0.58 L Estim Creat Clear Calc 137.30 Est GFR (MDRD) Non-Af 122 BUN/Creatinine Ratio 24.1 H Glucose 145 H Calcium 8.0 Total Bilirubin < 0.15 AST 8 ALT 12 Alkaline Phosphatase 81 Total Protein 4.5 L Albumin 2.6 L Globulin 1.9 L Albumin/Globulin Ratio 1.4 Lipase 12 L POC Glucose 144 H Discharge Plan Triage Chief Complaint: Nausea/Vomiting ED Provider: Colette Stevens Dx/Rx/DC Orders Primary Care Provider: Rashawn Yip
[2025-07-08] MEDS: 0.9% Normal Saline (1000mL) 1,000 ML 100 ML IV (16:37)
[2025-07-08] MEDS: Pantoprazole Sodium 40 MG in 0.9% Normal Saline (100mL MB+) 100 ML 330 MG IV (16:57)
[2025-07-08 17:04] VITALS: BP 124/89; PULSE 72; RESP 16; TEMP 36.4; O2SAT 100
[2025-07-08 17:28] LABS: Magnesium 1.7 mg/dL (1.5-2.2)
[2025-07-08] MEDS: Ensure Clear 120 ML Liquid PO (18:20)
[2025-07-08 18:31] LABS: Hematocrit 25.5 % (37-47); Hemoglobin 8.2 g/dL (12.0-15.0)
[2025-07-08] MEDS: DiphenhydrAMINE 50 MG/ML Syringe IV (18:34)
[2025-07-08 21:05] VITALS: BP 117/77; PULSE 80; RESP 16; TEMP 36.6; O2SAT 99
--- NOTE | 2025-07-08 22:28 | NURSING ---
Pt refused h&h lab draw
--- NOTE | 2025-07-08 23:06 | PCM.HOSP.N ---
Hospitalist Note Notified by nrsg that pt has refused her most recent unit of PRBC, current hgb 8.2. Pt also refusing SCDs, IVF, and her HS pantoprazole. She requested a different pain medication, I ordered ketorolac 30mg IV q8h PRN pain/fever.
[2025-07-08 23:53] VITALS: BP 87/54; PULSE 74; RESP 16; TEMP 36.4; O2SAT 98
[2025-07-08] MEDS: Ketorolac 30 MG/ML Syringe IV (23:55)
[2025-07-08] MEDS: 0.9% Saline Lock 10 ML Syringe IV (23:55)
[2025-07-09] VITALS (9 sets, daily range): BP systolic 101–132; BP diastolic 62–91; PULSE 61–83; RESP 16–18; TEMP 36.5–37; O2SAT 97–100; BMI 35.7
[2025-07-09] MEDS: DiphenhydrAMINE 50 MG/ML Syringe IV ×3 (04:11→17:42)
[2025-07-09] MEDS: 0.9% Saline Lock 10 ML Syringe IV ×7 (04:15→17:59)
[2025-07-09] MEDS: 0.9% Normal Saline (250mL Bag) 250 ML 15 ML IV (04:16)
[2025-07-09] MEDS: Ketorolac 30 MG/ML Syringe IV ×2 (08:18→17:42)
[2025-07-09] MEDS: Pantoprazole Sodium 40 MG in 0.9% Normal Saline (100mL MB+) 100 ML 330 MG IV ×2 (10:57→21:29)
--- NOTE | 2025-07-09 11:09 | PN_ITS ---
Subjective Subjective Patient was seen and examined with her nurse by bedside. Patient had a myriad of complaints. She complained about the pain meds and wanted the frequency reduced so she gave her pain meds. She is currently n.p.o. awaiting GI evaluation but wants at least ice chips to stay. She also wants to be walking around on her own but has been told this is dangerous because of fall risk. Review of systems otherwise negative. She is s/p transfusion of 2 units of packed red blood cells. Objective Data Objective Data Vital Signs: Vital Signs Temp Pulse Resp BP Pulse Ox O2 Del Method 97.7 F L 61 16 132/91 H 98 Room Air 07/09/25 11:03 07/09/25 11:03 07/09/25 11:03 07/09/25 11:03 07/09/25 11:03 07/09/25 11:03 Oxygen Delivery Method Room Air Weight: 189 lb 2.506 oz Body Mass Index (BMI) 35.7 Intake & Output: Intake and Output for Last 24 Hours 07/07/25 07/08/25 07/09/25 23:59 23:59 23:59 Intake Total 1521.67 / 1521.67 450 / 450 Balance 1521.67 / 1521.67 450 / 450 Lab / Micro Data 07/08/25 17:47 07/08/25 12:55 Labs: Laboratory Results - last 24 hr 07/08/25 12:23: POC Glucose 144 H 07/08/25 12:55: WBC 4.9, RBC 2.55 L, Hgb 7.1 L, Hct 22.8 L, MCV 89.4, MCH 27.8, MCHC 31.1 L, RDW Std Deviation 44.0 H, RDW Coeff of Millie 13.3, Plt Count 239, MPV 8.6, Immature Gran % (Auto) 0.200, Neut % (Auto) 53.7, Lymph % (Auto) 35.3, [place] % (Auto) 5.7, Eos % (Auto) 4.5, Baso % (Auto) 0.6, Absolute Neuts (auto) 2.7, Absolute Lymphs (auto) 1.74, Nucleated RBC % 0, Sodium 137, Potassium 4.0, C hloride 108 H, Carbon Dioxide 22.6, Anion Gap 6 L, BUN 14, Creatinine 0.58 L, Estim Creat Clear Calc 137.30, Est GFR (MDRD) Non-Af 122, BUN/Creatinine Ratio 24.1 H, Glucose 145 H, Calcium 8.0, Phosphorus 3.4, Magnesium 1.7, Total Bilirubin < 0.15, AST 8, ALT 12, Alkaline Phosphatase 81, Total Protein 4.5 L, A lbumin 2.6 L, Globulin 1.9 L, Albumin/Globulin Ratio 1.4, Lipase 12 L 07/08/25 16:55: POC Glucose 102 07/08/25 17:47: Hgb 8.2 L, Hct 25.5 L, Blood Type A POSITIVE, Antibody Screen NEGATIVE, Crossmatch See Detail 07/08/25 21:21: POC Glucose 109 H 07/09/25 04:06: POC Glucose 103 Micro: Microbiology 07/08/25 14:35 Stool Stool Occult Blood (SANJUANA) - Final Occult Blood Positive Physical Exam Const alert, oriented x3 and no apparent distress General Appearance: cooperative HEENT normocephalic and head/scalp atraumatic Mouth: dry mucous membranes Eyes EOMs intact bilaterally Neck supple Lymph Lymphatic: no lymphedema noted Resp Resp Narrative: mildly diminished breath sounds bibasally, no wheezes or crackles. On room air. Cardio regular rate, regular rhythm, S1 normal heart sound, S2 normal heart sound and no murmurs GI normal to inspection, nondistended, normoactive bowel sounds, soft to palpation and non-tender Extremity normal capillary refill, no clubbing, cyanosis or edema and no calf tenderness General Extremity: no tenderness to palpation of joints or extremities Skin Skin Narrative: has a port in situ General Skin Exam: no breakdown Neuro no focal motor deficits Motor Exam: general weakness Psych thought process normal and cooperative Mood & Affect: flat affect Assessment & Plan Assessment/Plan (1) Nausea & vomiting: PLAN: Plan #Intractable nausea and vomiting * had a PEG tube in situ which was recentlyu removed by GI. She has had nausea and vomiting with poor oral intake since * There is concern for protein calorie malnutrition. BMI is currently 35.7. * Currently on IV PPI. Gastroenterology consulted. On IV Zofran. Will monitor electrolytes. Await GI evaluation #Acute on chronic anemia * Had upper endoscopy on 06/21/2025 which showed normal esophagus and duodenum gastrostomy tube. PEG tube was removed. On admission hemoglobin is 7.1 and transfused with 2 unit of packed red blood cells. Hemoglobin has trended upwards today. * On IV Protonix. GI consulted. Currently NPO, will start on ice chips pending GI evaluation. #Type 2 diabetes mellitus with chronic. Checks ACHS. # Anxiety and depression bipolar disorder: #History of PCOS: Spironolactone held due to nausea and vomiting #History of chronic migraines: On triptan as needed #Factor V Leiden deficiency with history of DVT and PE: Lower concern for GI bleed blood thinners held. #Class II obesity: BMI is 35.7. She is acute care, spoke to recovery and prognosis. DVT prophylaxis: SCDs. * Charges/Coding Visit Charges Inpatient E&M: 30332 Subs Hosp L2
--- NOTE | 2025-07-09 13:50 | CASEMGMT ---
SW Assessment: Face to Face with pt for initial transition planning/care coordination assessment. SW introduced self and role at [facility], pt voices understanding and consents to assessment. Pt is A&O x4 and answers all questions appropriately at this time. Care providers, pharmacy, and demographics verified/updated. PCP: ZANE Yip Specialists:Kinjal- GI, Jacques- hematology, Lianna- neurology,, Katy- nephrology, Psychiatrist, counselor, medical case manager- [facility] Preferred Pharmacy: [facility] Insurance: [employer] Prescription Benefit: yes LNOK: 2 sons, ages 10 & 12, mom-Kandi Living Arrangements: Pt lives in an apartment with a ramp. There are 5 steps from the parking lot. Pt lives alone and is independent with ADLs. Pt cousin assists with grocery shopping and some IADLs. Transportation: Pt denies concerns with transportation. DME:Cane, walker, shower chair. HHC/SNF: None Pt states no concerns with going home at time of dc. Pt was interested in assistance with IALDs. SW provided education on DEBBIE waiver program. Pt reports that she is diabled and recently was officially declared so, although she has not started receiving benefits at this time. Pt would like SW to complete referral; SW completed online referral. Pt also inquired into handicap placard. SW provided a form for pt to take to PCP follow up. Pt requested to update HCPOA. SW completed new document, placed copy on chart, provided original and copy to pt. Pt states no further concerns/needs. SW to follow. Advised pt to ask SW if any further questions/concerns/needs arise, voices understanding. Plan: Home, no needs LÓPEZ Ferrara
[2025-07-09 13:54] LABS: Hematocrit 29.7 % (37-47); Hemoglobin 9.6 g/dL (12.0-15.0); Immature Granulocytes Count 0.020 X10^3/uL (0.0-0.0); Mean Corp Hgb Conc 32.3 g/dL (32-36); Mean Corpuscular Volume 88.7 fL (81-99); Mean Platelet Vol. 9.0 fl (6.2-12.0); NRBC Flagged by Analyzer 0 % (0-5); Platelet Count 229 K/mm3 (150-450); RBC Distribution Width CV 13.3 % (11.6-14.6); RBC Distribution Width SD 43.2 fl (35.1-43.9); Red Blood Count 3.35 M/mm3 (4.2-5.4); White Blood Count 4.8 K/mm3 (4.4-11.0)
[2025-07-09 14:11] LABS: AST(SGOT) 15 U/L (<=31); Alanine Aminotransfer ALT/SGPT 14 U/L (<=34); Albumin, Serum 3.0 g/dL (3.5-5.0); Alkaline Phosphatase 126 U/L (35-104); Anion Gap 6 (7-18); BUN 15 mg/dL (4-19); BUN/Creat Ratio 18.1 RATIO (10-20); Calcium,Total 9.0 mg/dL (7.6-11.0); Carbon Dioxide 23.7 mmol/L (20.0-29.0); Chloride 108 mmol/L (96-106); Estimated Creatinine Clearance 98.25 ml/min (50-250); Globulin 2.4 g/dL (2.2-4.2); Glucose 99 mg/dL (70-99); Potassium 4.7 mmol/L (3.5-5.1)
--- NOTE | 2025-07-09 14:38 | EX.PCM.CON.G ---
HPI Consult Data Date of Consult: 07/09/25 HPI Narrative Reason for Consultation: Anemia and GI bleed HPI Narrative: ERIN TORRES, is a 35-year-old female presenting to the Emergency Department with severe symptoms including debility, weakness, multiple falls, intractable nausea/emesis, and decreased urine output. She has a complex medical history, notably a history of Factor 5 Leiden deficiency with VTE, obesity, diabetes, and a recent PEG tube removal. ? Labs: CBC: Hemoglobin 7.1 g/dL, MCV 89.4, Platelet 239. DepoCyt is a chemotherapy drug, so DepoCyt 4.9 is likely a network operations analyst error for a lab value, possibly a white blood cell count (WBC) of 4.9 x 109to the luiz power/L, which is within the normal range. The hemoglobin is low, consistent with her chronic normocytic anemia. CMP: Chloride 108 mmol/L, BUN/creatinine 14/0.58 mg/dL, GFR 122 mL/min, glucose 145 mg/dL. The BUN/creatinine ratio and GFR indicate normal renal function at the time of the test, despite her reported decreased urine output. The glucose is slightly elevated. Imaging/Procedures: The workup in the ED included T97.8. T97.8 is not an ICD-10-CM diagnosis code related to an ED workup, but rather a code group for Sequelae of toxic effects of substances chiefly nonmedicinal as to source. Given the context of the workup, this is likely a typographical error in the provided medical documentation, possibly meant to be a test name or result. Other findings: Questionable blood in her stool was noted, prompting the evaluation. No blood was reported in her emesis. She reported chronic constipation/loose stools that are unchanged. Type and cross were initiated for 1 unit of blood per the ED's protocol.? The patient's acute symptoms of intractable nausea, emesis, and weakness, combined with a potential gastrointestinal bleed (questionable blood in stool) and her anemic status (hemoglobin 7.1), are the primary concerns for her ED presentation. The history of a recently removed PEG tube might also be relevant to her current GI symptoms and debility, potentially indicating nutritional issues or complications.? I was consulted for patient's worsening anemia. [facility] Medical History Infection due to Port-A-Cath Irritation around percutaneous endoscopic gastrostomy (PEG) tube site Walker as ambulation aid CAP (community acquired pneumonia) Hx of substance abuse Bipolar disorder Kidney stones GERD (gastroesophageal reflux disease) Non-smoker Generalized weakness Anemia Easy bruising Dietary restriction Implantable loop recorder present Wears glasses Anxiety MRSA infection Substance abuse History of steroid therapy Diabetes Injury of head and neck History of IBS Gastric reflux Neuropathy delivery delivered Arthritis Prolonged QT interval PCOS (polycystic ovarian syndrome) Factor V Leiden Anxiety Depression Pulmonary embolism DVT (deep venous thrombosis) TIA (transient ischemic attack) Ovarian cyst Home Medications ?Medication ?Instructions ?Recorded ?Last Taken ?Type epinephrine 0.3 mg/0.3 mL 0.3 mg (0.3 mL) IM Q5-15M PRN 10/05/24 Unknown Rx injection, auto-injector (EpiPen anaphylaxis #2 ea 2-Scout) albuterol sulfate 90 mcg/actuation 2 puff inhalation Q6H PRN 11/19/24 Unknown Rx aerosol inhaler shortness of breath or wheezing #8.5 grams sumatriptan succinate 6 mg/0.5 mL 6 mg subcut Q12H PRN MIGRAINE 12/11/24 Unknown History subcutaneous pen injector zolpidem 12.5 mg tablet,extended 12.5 mg PO QHS PRN insomnia 12/18/24 06/20/25 History release,multiphase (Ambien CR) linaclotide 290 mcg capsule 290 mcg PO QDAY #90 caps 03/26/25 06/20/25 Rx (Linzess) potassium chloride 20 mEq oral 20 meq PO BID #100 ea 04/15/25 Unknown Rx packet pantoprazole 40 mg tablet,delayed 40 mg PO DAILY #90 TABLETS 04/20/25 06/20/25 Rx release blood-glucose sensor (Dexcom G7 #1 ea 04/23/25 Unknown Rx Sensor device) blood-glucose,senior stock plan administrator,cont #1 ea 04/23/25 Unknown Rx (Dexcom G7 Editor Greeting Card) blood sugar diagnostic (OneTouch #100 ea 04/27/25 Unknown Rx Verio test strips) lancets 30 gauge (OneTouch #200 ea 04/27/25 Unknown Rx UltraSoft 2 Lancet) ergocalciferol (vitamin D2) 1,250 1,250 mcg PO QWEEK #1 cap 05/12/25 06/14/25 Rx mcg (50,000 unit) capsule (Vitamin D2) folic acid 1 mg tablet 1 mg PO QDAY #30 tabs 05/12/25 06/20/25 Rx magnesium oxide 400 mg PO BID #60 tabs 05/12/25 06/20/25 Rx spironolactone 50 mg tablet 50 mg PO BID #60 tabs 05/12/25 06/20/25 Rx torsemide 20 mg tablet 20 mg PO QDAY #30 tabs 05/12/25 06/20/25 Rx indomethacin 50 mg capsule 50 mg PO TID PRN pain 05/17/25 06/20/25 History lorazepam 0.5 mg tablet (Ativan) 0.5 mg PO Q12H 05/17/25 06/20/25 History meclizine 25 mg tablet 25 mg PO BID PRN dizziness 05/17/25 Unknown History tizanidine 4 mg capsule 4 mg PO TID PRN muscle spasticity 05/17/25 06/20/25 History erenumab-aooe 70 mg/mL 70 mg subcut .month 05/29/25 05/24/25 History subcutaneous auto-injector (Aimovig Autoinjector) sumatriptan succinate 100 mg tablet See Rx Instructions PO .COMPLEX 06/01/25 Unknown Rx #12 tabs bisacodyl 5 mg tablet,delayed 20 mg (4 x 5 mg) PO ONCE #4 tabs 06/08/25 06/20/25 Rx release (Dulcolax (bisacodyl)) polyethylene glycol 3350 17 See Rx Instructions .Route 06/08/25 Unknown Rx gram/dose oral powder .COMPLEX #238 grams Held on 06/21/25. Instructions: didnt do prep promethazine 25 mg rectal 25 mg MS Q6H PRN nausea and 06/14/25 Unknown Rx suppository vomiting #12 ea gabapentin 400 mg capsule 400 mg PO TID #270 caps 06/15/25 06/20/25 Rx acetaminophen 160 mg/5 mL oral mg 06/18/25 06/20/25 History suspension (Children's Acetaminophen) dicyclomine 20 mg tablet 20 mg PO Q6H PRN abdominal pain 06/18/25 06/20/25 History docusate sodium 100 mg capsule 100 mg PO DAILY for constipation 06/18/25 06/20/25 History famotidine 20 mg tablet 20 mg PO DAILY #30 tabs 06/18/25 06/20/25 Rx Allergy/AdvReac Type Severity Reaction Status Date / Time bee venom protein (honey Allergy Severe Anaphylaxis Verified 07/08/25 12:14 bee) (bee sting) ziprasidone (From Geodon) Allergy Severe facial Verified 07/08/25 12:14 swelling ciprofloxacin (From Cipro) Allergy Intermediate Angioedema Verified 07/08/25 12:14 levofloxacin (From Levaquin) Allergy Intermediate Angioedema Verified 07/08/25 12:14 adhesive tape Allergy Mild Rash Verified 07/08/25 12:14 latex Allergy Mild Rash Verified 07/08/25 12:14 Iodinated Contrast Media Allergy Hives Verified 07/08/25 12:14 ondansetron (From Zofran) Allergy Hives Verified 07/08/25 12:14 propranolol Allergy Angioedema Verified 07/08/25 12:14 midazolam (From Versed) AdvReac Severe Other Verified 07/08/25 12:14 haloperidol (From Haldol) AdvReac Other Verified 07/08/25 12:14 metoclopramide (From Reglan) AdvReac Other Verified 07/08/25 12:14 Family History Father Alcoholism Hypertension Thyroid disorder Mother Anxiety Autoimmune disorder Bleeding disorder Hypertension Mental disorder CVA (cerebral vascular accident) Suicide attempt Thyroid disorder Other Breast cancer Colon cancer Diabetes Heart disease Myocardial infarction Ovarian cancer Surgical History Hx of colonoscopy PEG (percutaneous endoscopic gastrostomy) status S/P percutaneous endoscopic gastrostomy (PEG) tube placement History of vascular access device Port-A-Cath in place H/O hernia repair H/O wisdom tooth extraction H/O oophorectomy Hx of cholecystectomy H/O tubal ligation Social History adopted: No household members: children and none number of children: 2 current occupational status: unemployed pets and animals: No sexually active: No Smoking Status: Never smoker alcohol intake: never substance use type: does not use caffeine: No frequency: 3-4 times per week do you feel safe at home: Yes ROS Constitutional Constitutional: Denies fatigue, fever(s), poor appetite, weight gain or weight loss Gastrointestinal Gastrointestinal: Denies belching, bloating, change in bowel habits, change in stool character, chewing difficulty, coffee ground emesis, constipation, cramping, diarrhea, dyspepsia, dysphagia, early satiety, excessive flatus, fecal incontinence, heartburn, hematemesis, hematochezia, hemorrhoids, loose stools, melena, nausea, odynophagia, rectal bleeding, tenesmus, vomiting or weight changes Physical Exam Const alert, oriented x3, no apparent distress and healthy appearing General Appearance: cooperative GI normal to inspection, nondistended, normoactive bowel sounds, soft to palpation, non-tender and non-distended Percussion: normal to percussion Rectal Exam: deferred Lab / Micro Data 07/09/25 13:30 07/09/25 13:30 Labs: Laboratory Results - last 24 hr 07/08/25 12:55: Phosphorus 3.4, Magnesium 1.7 07/08/25 16:55: POC Glucose 102 07/08/25 17:47: Hgb 8.2 L, Hct 25.5 L, Blood Type A POSITIVE, Antibody Screen NEGATIVE, Crossmatch See Detail 07/08/25 21:21: POC Glucose 109 H 07/09/25 04:06: POC Glucose 103 07/09/25 11:23: POC Glucose 120 H 07/09/25 13:30: WBC 4.8, RBC 3.35 L, Hgb 9.6 L, Hct 29.7 L, MCV 88.7, MCH 28.7, MCHC 32.3, RDW Std Deviation 43.2, RDW Coeff of Millie 13.3, Plt Count 229, MPV 9.0, Immature Gran % (Auto) 0.400, Neut % (Auto) 65.9, Lymph % (Auto) 22.4, [place] % (Auto) 5.9, Eos % (Auto) 4.8, Baso % (Auto) 0.6, Absolute Neuts (auto) 3.1, Absolute Lymphs (auto) 1.07, Nucleated RBC % 0, Sodium 138, Potassium 4.7, Chloride 108 H, Carbon Dioxide 23.7, Anion Gap 6 L, BUN 15, Creatinine 0.81, Estim Creat Clear Calc 98.25, Est GFR (MDRD) Non-Af 98, BUN/Creatinine Ratio 18.1, Glucose 99, Calcium 9.0, Total Bilirubin 1.15, AST 15, ALT 14, Alkaline Phosphatase 126 H, Total Protein 5.4 L, Albumin 3.0 L, Globulin 2.4, Albumin/Globulin Ratio 1.3 Micro: Microbiology 07/08/25 14:35 Stool Stool Occult Blood (SANJUANA) - Final Occult Blood Positive Assessment & Plan Assessment/Plan (1) Nausea & vomiting: (2) GI bleed: (3) Anemia: QUALIFIERS: Anemia type: unspecified type Qualified Code(s): D64.9 - Anemia, unspecified PLAN: The patient presents with significant symptoms of likely severe dehydration and potential gastrointestinal (GI) bleeding in the context of multiple chronic conditions, including diabetes, anemia, Factor V Leiden deficiency with Hx VTE, and a recent PEG tube removal.?Gray concerns include: Dehydration/Acute Kidney Injury:?Intractable N/V, decreased urine output, and normal BUN/Cr may suggest pre-renal injury is developing, requiring urgent fluid resuscitation. Anemia:?Severe, symptomatic normocytic anemia (Hgb 7.1) is present, prompting type and cross initiation. The cause needs further investigation (potential GI bleed given reported blood in stool). Gastrointestinal Issues:?Intractable N/V, questionable GI bleeding, and recent PEG tube removal warrant a thorough GI workup to rule out obstruction, ulceration, or other pathology. Debility/Falls:?Weakness and falls likely multifactorial, potentially related to anemia, dehydration, or electrolyte imbalances (though CMP is largely normal so Plan Diagnostics: Continue workup for source of anemia/GI bleed. Colonoscopy and possible capsule endoscopy.. Complete type and cross, administer 1 unit PRBCs as ordered. Therapeutics: Plan is for colonoscopy on 07/12/2025. Administer antiemetics (e.g., Ondansetron, Prochlorperazine) for symptom management. Consider proton pump inhibitor (PPI) for GI protection given possible bleed. Portions of this note were generated using voice recognition software ([employer] - Financial Reconciliation Dictation). I have reviewed the contents and every effort has been made to ensure accuracy; however, inadvertent errors in grammar, spelling, punctuation, or word choice may occur, that were not noted before signing the document and should not alter the intended clinical meaning. Charges/Coding Visit Charges Inpatient E&M: 97451 Init Hosp L3
[2025-07-09] MEDS: Ensure Clear 120 ML Liquid PO (21:28)
[2025-07-10 00:54] VITALS: BP 110/67; PULSE 82; RESP 18; TEMP 36.5; O2SAT 100
[2025-07-10] MEDS: DiphenhydrAMINE 50 MG/ML Syringe IV ×4 (01:00→19:53)
[2025-07-10 05:44] VITALS: BP 124/75; PULSE 87; RESP 18; TEMP 36.8; O2SAT 100
[2025-07-10 06:00] VITALS: BMI 34.7
[2025-07-10] MEDS: Ketorolac 30 MG/ML Syringe IV ×2 (06:01→16:22)
[2025-07-10 06:41] LABS: Hematocrit 29.9 % (37-47); Hemoglobin 9.9 g/dL (12.0-15.0); Immature Granulocytes Count 0.010 X10^3/uL (0.0-0.0); Mean Corp Hgb Conc 33.1 g/dL (32-36); Mean Corpuscular Volume 87.7 fL (81-99); Mean Platelet Vol. 8.7 fl (6.2-12.0); NRBC Flagged by Analyzer 0 % (0-5); Platelet Count 253 K/mm3 (150-450); RBC Distribution Width CV 13.2 % (11.6-14.6); RBC Distribution Width SD 42.3 fl (35.1-43.9); Red Blood Count 3.41 M/mm3 (4.2-5.4); White Blood Count 4.5 K/mm3 (4.4-11.0)
[2025-07-10 07:12] LABS: Anion Gap 8 (7-18); BUN 11 mg/dL (4-19); BUN/Creat Ratio 14.8 RATIO (10-20); Calcium,Total 9.1 mg/dL (7.6-11.0); Carbon Dioxide 22.0 mmol/L (20.0-29.0); Chloride 109 mmol/L (96-106); Estimated Creatinine Clearance 106.04 ml/min (50-250); Glucose 81 mg/dL (70-99); Potassium 4.3 mmol/L (3.5-5.1)
--- NOTE | 2025-07-10 08:02 | PN.HOSP_ITS ---
Reason for Visit Chief Complaint: Intractable nausea, emesis. Subjective Subjective States that she goes days without eating due to nausea and vomiting. Upset that she is currently on full liquid diet, which she feels is just a clear liquid diet, but with ice cream. Aggravated that her pain her legs, which describes as burning down her legs is not being adequately addressed. Says she'll just have to go, which she clarified as leaving AMA. Objective Data Objective Data Vital Signs: Vital Signs Temp Pulse Resp BP Pulse Ox O2 Del Method 36.8 C 87 18 124/75 H 100 Room Air 07/10/25 05:44 07/10/25 05:44 07/10/25 05:44 07/10/25 05:44 07/10/25 05:44 07/10/25 07:57 Oxygen Delivery Method Room Air Weight: 83.6 kg Body Mass Index (BMI) 34.7 Intake & Output: Intake and Output for Last 24 Hours 07/08/25 07/09/25 07/10/25 23:59 23:59 23:59 Intake Total 1521.67 / 1521.67 1250 / 1250 600 / 600 Balance 1521.67 / 1521.67 1250 / 1250 600 / 600 Lab / Micro Data 07/10/25 06:22 07/10/25 06:22 Labs: Laboratory Results - last 24 hr 07/09/25 11:23: POC Glucose 120 H 07/09/25 13:30: WBC 4.8, RBC 3.35 L, Hgb 9.6 L, Hct 29.7 L, MCV 88.7, MCH 28.7, MCHC 32.3, RDW Std Deviation 43.2, RDW Coeff of Millie 13.3, Plt Count 229, MPV 9.0, Immature Gran % (Auto) 0.400, Neut % (Auto) 65.9, Lymph % (Auto) 22.4, Hansford % (Auto) 5.9, Eos % (Auto) 4.8, Baso % (Auto) 0.6, Absolute Neuts (auto) 3.1, Absolute Lymphs (auto) 1.07, Nucleated RBC % 0, Sodium 138, Potassium 4.7, C hloride 108 H, Carbon Dioxide 23.7, Anion Gap 6 L, BUN 15, Creatinine 0.81, Estim Creat Clear Calc 98.25, Est GFR (MDRD) Non-Af 98, BUN/Creatinine Ratio 18.1, Glucose 99, Hemoglobin A1c 5.0, Calcium 9.0, Total Bilirubin 1.15, AST 15, ALT 14, Alkaline Phosphatase 126 H, Total Protein 5.4 L, Albumin 3.0 L, Globulin 2.4, Albumin/Globulin Ratio 1.3 07/09/25 16:07: POC Glucose 147 H 07/09/25 21:21: POC Glucose 98 07/10/25 06:22: WBC 4.5, RBC 3.41 L, Hgb 9.9 L, Hct 29.9 L, MCV 87.7, MCH 29.0, MCHC 33.1, RDW Std Deviation 42.3, RDW Coeff of Millie 13.2, Plt Count 253, MPV 8.7, Immature Gran % (Auto) 0.200, Neut % (Auto) 52.0, Lymph % (Auto) 35.0, Hans[place] % (Auto) 6.3, Eos % (Auto) 5.6 H, Baso % (Auto) 0.9, Absolute Neuts (auto) 2.3, Absolute Lymphs (auto) 1.57, Nucleated RBC % 0, Sodium 139, Potassium 4.3, C hloride 109 H, Carbon Dioxide 22.0, Anion Gap 8, BUN 11, Creatinine 0.74, Estim Creat Clear Calc 106.04, Est GFR (MDRD) Non-Af 109, BUN/Creatinine Ratio 14.8, Glucose 81, Calcium 9.1 Micro: Microbiology 07/08/25 14:35 Stool Stool Occult Blood (SANJUANA) - Final Occult Blood Positive Physical Exam Const Constitutional Narrative: sitting up in bed. Non-toxic. Appears older than stated age. Resp normal respiratory effort, no retractions, no use of accessory muscles and clear to auscultation bilaterally Cardio regular rate, regular rhythm, S1 normal heart sound and S2 normal heart sound GI normal to inspection, nondistended, normoactive bowel sounds and soft to palpation GI Narrative: former PEG site is clean and intact. Extremity normal to inspection Skin Skin Narrative: port site in DEVANG chest without erythema. Neuro Sensorium / Orientation: awake and alert Assessment & Plan Assessment/Plan (1) Nausea & vomiting: PLAN: Plan Intractable nausea and vomiting * PEG tube removed 06/21 for intense abdominal pain and drainage from the PEG tube. * Check UDS, GES. * GI consult. * colonoscopy planned for 07/12. * supportive mgmt. Severe protein calorie malnutrition * nutrition consult Acute on chronic anemia * Had upper endoscopy on 06/21/2025 which showed normal esophagus and duodenum gastrostomy tube. PEG tube was removed. On admission hemoglobin is 7.1 and transfused with 2 unit of packed red blood cells. Hemoglobin has trended upwards today. * On IV Protonix. GI consulted. Currently NPO, will start on ice chips pending GI evaluation. Chronic medical conditions: * Type 2 diabetes mellitus with chronic. Checks ACHS. * Anxiety and depression bipolar disorder: * History of PCOS: Spironolactone held due to nausea and vomiting * History of chronic migraines: On triptan as needed * Factor V Leiden deficiency with history of DVT and PE: Lower concern for GI bleed blood thinners held. * Class II obesity: BMI is 35.7. She is acute care, spoke to recovery and prognosis DVT prophylaxis: SCDs. Patient was upset that she was a FLD and wanted mashed potatoes. I told her that I will advance her diet. I explained that TPN would not be indicated yet, but would like to have more testing such as the GES. She quickly pivoted to her leg pain and how her leg pain was not adequately treated. I explained to her I was getting up to speed on her history and would review what further adjustment that we could do. However, I told her that I would avoid narcotics given the concern for gastroparesis and her h/o migraines. She was understanding. She was threatening to self-discharge. I told I would like to help her, but would need more time and testing to more definitely provide her the best care possible. I did bring up her frequent visits to [facility] (see below) just this month. I attempt to reassure that I will do the best I can with her care, but encouraged her to stay. She is agreeable to staying at this time. In the meantime, I have increased her gabapentin from 400 to 600 TID, added lidoderm patches. To obtain a more thorough understanding of the patient's complex medical issues I felt it necessary to review records from outside of [facility] and therefore used [facility] and [facility]. I have reproduced excepts from these notes to aide in the patient's care. This is no exhaustive reproduction of these records, nor is meant to present an untoward presentation of the patient, but rather to reflect to frequent utilization of different hospitals and encounters. June: ED visit [facility] 12: 1, 3, 9, 11, 15, 20. Admitted on the 3rd, discharged on the 4th. review: ED 12/01/2023 * From ED visit 11/30/23 [facility]: Medical Decision Making Review of patient's hospitalization at [facility] is significant for a complete evaluation including MRIs for her chronic headache issues she has sinusitis but no other pathology Additionally she had ultrasound of her left arm which showed a superficial cephalic vein which is not a DVT but given her history she was given Eliquis at discharge which patient has not had filled; patient was insisting on ketamine infusions here explained to her we do not do that she told the nurse at [facility] that her cousin was picking her up and she was gone to go to the [facility] for ketamine infusion. At [facility] pain management evaluated her and they did not recommend ketamine they wanted to stay with nonnarcotics for her headache because does believe she has drug- seeking behavior. Patient was angry that we are unable to give her what she wanted and she left was recommended that she follow-up with her neurologist or her pain management doctor she is clinically stable * On reevaluation:Patient resting in bed, no distress. She remains neurologically intact. She is not hypoxic or tachycardic. We discussed results so far. Her D-dimer is normal, initial troponin is normal. She reports that she has had PEs before with normal D-dimers in the past. She states that the pleuritic chest pain that she is having currently is similar to when she has had PEs. She wants to proceed with additional imaging to further evaluate for PEs. We did discuss CTA chest, which we discussed involves IV contrast, which she does have an allergy to. We discussed 5-hour prep prior to CTA chest. Patient prefers not to have a 5-hour prep for the CTA chest. We discussed the other option is to do VQ scan, which we do not have available here and would require transfer. She is requesting to be transferred for a VQ scan and is requesting [facility]. [facility] review ED [facility] 07/03/2025: * In brief, Clare Scott is a 35 y.o. female with medical history of PTSD,anasarca, anxiety who presented to the emergency department with chief complaint of rectal bleeding. Patient reports that yesterday she had 4 bouts of stoolswith chunks of blood mixed in describing them as red and maroon. Patient states his bowel movements were not painful, has not had a bowel movements at thistime. Patient states that she has a history of a PEG tube and disbelief thatshe is malnourished and that she needs TPN. She follows up with GI and she istrying to establish care with GI in the new year, not pleased with currentoutpatient GI treatment. Nursing notes and medical records reviewed, Imaging on patient is anxious appearing bedside does have mild anasarca, and istachycardic. Patient is chronically ill-appearing at bedside and does appear greater than stated age patient did have recent CT abdomen pelvis with IVcontrast done at outside hospital 3 days prior on 06-30 and henceforth I do not believe it is warranted to repeat CT scan today. The patient has had a multitude of CT scans over the past few years and patient was warned he the risk ofsustaining regarding risk of excess radiation.Differential considerations included Rectal bleeding vs. chronic anemia versus Crohn's disease versus ulcerative colitis versus dehydration versus anal fissureversus internal hemorrhoid versus external anal and no hemorrhoid.Initial medical management includes reglan, benadryl for nausea.Patient did decline rectal examination and does not believe that she has any any external anal lesions and denies a known history of hemorrhoids and perianal fissures. No signs of active hemorrhage were noted on examination. CBC with differential is unremarkable. Patient's hemoglobin is stable at 7.8. Uponre-evaluation, the patient's heart rate did improved to 100 bpm and patient doesreport feeling better at this time. The risk of admission outweighs risk of outpatient therapy and hence the patient is medically stable and clear for discharge at this time. Strict return precautions were discussed with the patient. The patient understands and agrees to above-mentioned plan andshared-decision making was utilized. Patient was provided with [facility] [place], [facility] [place] and [facility] referral [facility] 06/29/2025: Discharge Summary * Patient was seen in ED - for anemia, and admission orders were placed, prior to being seen by admitting provided patient left AMA, was educated by nursing aboutrisks, but left prior to being seen by provider. [facility] 06/16/2025: Discharge Summary * BRIEF HOSPITAL COURSE:Clare, is a 35 year old female with history of previous clots after second son in her brachial arm, discrepancy between being told possible Factor V versus not, type 2 diabetes mellitus, who was in her normal health prior to December -where she started with nausea and emesis which came suddenly with no prior travel, no known sick contacts, no exposure to any toxins, or ticks, and since then has been having issues with weight loss, on and off period nausea and emesis, severe malnutrition with anasarca due to low protein intake resulting inPEG tube insertion, October was placed on torsemide and spironolactone which was working but then stopped working and swelling worsened. PEG tube was placed formal nourished on 05/26. Was tolerating tube feeds until two weeks ago and then suddenly sharp stabbing pain and unable to tolerate feeds and having increased pain to bilateral legs on top of chronic neuropathy.In ED, HR 120, RR 16, BP 120.78, 100% on room air,Labs - CL 111, CO2 21, Albumin 1.7, TP 5, Hgb 7.2 - droppped to 6.4 and was given one unit of blood.She was transferred to [facility] and with discussions with team - a decision was madeto discharge and she wanted to go to [facility] to get a more intensive work up with more specialized Specialist then [facility] provider. No further labs or test were done per patient request. [facility] 05/10/2025: Discharge Summary. * Hospital Course: Patient with worsening swelling in legs and arms with anasarca, diarrhea, with nausea and vomiting, progressing over the last 3months. Echo with LVEF of 56%, severe proteinemia, hypoalbuminemia. GI on consult, recommending NG and enteral nutrition. Immune and renal workup per nephrology. S/p renal biopsy. Anemia as well, heme/onc recommending bone marrowbiopsy, performed on 05/10/25. Patient has intermittently been refusing procedures, prolonging hospital stay. Dobhoff was to be placed during bone marrow biopsy with IR, however was not placed. Patient refused to stay for further dobhoff placement. She is requesting discharge and close outpatient follow up. Her electrolytes corrected. She is to follow up with nephrology,heme/onc, GI, PCP outpatient in 1-2 weeks. Labs and vitals reviewed and stableat time of discharge. She is discharged to home in improved an stable condition on 05/10/25. Greater than 75 minutes reviewing her current hospitalization records, previous [facility] records, discussing with Dr. Layton, bedside nurse, Nursing extermination supervisor, going through [facility] and [facility] to review previous medical records. Charges/Coding Visit Charges Inpatient E&M: [id number] Subs Hosp L3
[2025-07-10 09:53] VITALS: BP 128/80; PULSE 55; RESP 16; TEMP 36.6; O2SAT 99
[2025-07-10] MEDS: Pantoprazole Sodium 40 MG in 0.9% Normal Saline (100mL MB+) 100 ML 330 MG IV ×2 (10:18→20:08)
[2025-07-10] MEDS: 0.9% Saline Lock 10 ML Syringe IV ×5 (10:18→20:13)
--- NOTE | 2025-07-10 11:25 | PCA ---
This SPANISH LINGUIST went into patient room. Patient was sleeping in bed with one leg hanging off the bed. This SPANISH LINGUIST educated the patient about sleeping with one leg off of the bed. Patient refused to put leg into bed. Primary RN Yvrose was notified.
[2025-07-10 16:05] VITALS: BP 127/82; PULSE 58; RESP 16; TEMP 36.8; O2SAT 99
[2025-07-10 18:02] LABS: Mucous, Urine 0 SEEN /hpf (<or=2+); Red Blood Cells-Urine 0 SEEN /hpf (0-5)
[2025-07-10 18:04] LABS: Color, Urine Yellow (Yellow); Glucose, Dipstick Normal (Normal); Ketone-Dipstick Negative (Negative); Leukocyte Esterase-Dipstick Negative /ul (Negative); Nitrite-Dipstick Negative (Negative); Occult Blood-Urine Negative /ul (Negative); Protein-Dipstick 15 mg/dl (Negative); Specific Gravity, Urine 1.015 (1.002-1.030)
[2025-07-10 18:05] LABS: Urine Bilirubin Dipstick 1 mg/dL (Negative)
[2025-07-10 18:09] LABS: Squamous Epithelial Cells - UA 0-5 SEEN /hpf (5-10)
[2025-07-10 18:10] LABS: Internal QC Validated? YES +Cl - CLEAR BKGD; Pregnancy, Urine Negative Negative
[2025-07-10 18:23] LABS: Barbiturate Urine NEGATIVE (< 200 ng/mL); Benzodiazepine Urine PRESUMPTIVE POSITIVE (< 200 ng/mL); PCP Urine NEGATIVE (< 25 ng/mL); THC Urine NEGATIVE (< 50 ng/mL)
[2025-07-10 19:52] VITALS: BP 114/50; PULSE 79; RESP 16; TEMP 36.7; O2SAT 98
[2025-07-10 23:34] VITALS: BP 134/76; PULSE 61; RESP 16; TEMP 36.3; O2SAT 97
[2025-07-11 03:57] VITALS: BMI 36.1
[2025-07-11 04:18] VITALS: BP 123/78; PULSE 60; RESP 16; TEMP 36.4; O2SAT 100
[2025-07-11] MEDS: DiphenhydrAMINE 50 MG/ML Syringe IV ×4 (04:20→23:19)
[2025-07-11] MEDS: 0.9% Saline Lock 10 ML Syringe IV ×7 (04:20→23:20)
[2025-07-11] MEDS: Ketorolac 30 MG/ML Syringe IV ×3 (04:25→23:19)
--- NOTE | 2025-07-11 06:54 | NURSING ---
Wants to switch doctors. Thought Norma was a complete asshole...If he comes in my room today I am going to just tell him to leave. Wants cath flow put in her port. This RN said, Typically we don't do that if a port is flushing and your port is flushing well. Patient said, In the past, when I get cath flow the port will draw blood like a champ. She also said, I am being subjected to multiple unsuccessful pokes and until I get the cath flow, I am done being poked. Also, wants to see Dr. Layton before the colonoscopy. Things she wants to discuss with Friend. What are we going to about nutrition? It has been almost four weeks. I get full very quickly. I can only eat once a day. I am very weak. My vitamins and electrolites are off. There have been talks about TPN until I get a tube or a hof. If that is the only way I can get nutrition, I am ok with the Hof. I want it done at the same time as the colonoscopy. Dr. Layton said they are very uncomfortable and he doesn't want me to call him in two days and tell him to take it out, but if that is the only way I can get nutrition, I am ok with it.
--- NOTE | 2025-07-11 07:23 | NURSING ---
per labor gang supervisor, informs nurse that pt is refusing to have am labs drawn.
--- NOTE | 2025-07-11 07:57 | PCM.PN.HOSP ---
Reason for Visit Chief Complaint: Intractable nausea, emesis. Subjective Subjective Tolerating PO and oral meds. Still complaining of pain in lower extremities. Objective Data Objective Data Vital Signs: Vital Signs Temp Pulse Resp BP Pulse Ox O2 Del Method 36.4 C L 60 16 123/78 H 100 Room Air 07/11/25 04:18 07/11/25 04:18 07/11/25 04:18 07/11/25 04:18 07/11/25 04:18 07/11/25 07:43 Oxygen Delivery Method Room Air Weight: 86.7 kg Body Mass Index (BMI) 36.1 Intake & Output: Intake and Output for Last 24 Hours 07/09/25 07/10/25 07/11/25 23:59 23:59 23:59 Intake Total 1250 / 1250 1300 / 1300 Balance 1250 / 1250 1300 / 1300 Lab / Micro Data 07/11/25 12:07 07/10/25 06:22 Labs: Laboratory Results - last 24 hr 07/08/25 17:51: Urine Color Yellow, Urine Clarity Clear, Urine pH 6.0, Ur Specific [place] 1.015, Urine Protein 15 H, Urine Glucose (UA) Normal, Urine Ketones Negative, Urine Occult Blood Negative, Urine Nitrite Negative, Urine Bilirubin 1 H, Urine Urobilinogen 4 H, Ur Leukocyte Esterase Negative, Urine RBC 0 SEEN, Urine WBC 0-5 SEEN, Ur Squamous Epith Cells 0-5 SEEN, Urine Bacteria 0 SEEN, Urine Mucus 0 SEEN, Urine Test Negative, Urine Opiates Screen NEGATIVE, U Buprenorphine Qual PRESUMPTIVE POSITIVE, Ur Oxycodone Screen NEGATIVE, Urine Methadone Screen NEGATIVE, Urine Fentanyl Screen NEGATIVE, Ur Barbiturates Screen NEGATIVE, Ur Phencyclidine Scrn NEGATIVE, Ur Amphetamines Screen NEGATIVE, U Benzodiazepines Scrn PRESUMPTIVE POSITIVE, Urine Cocaine Screen NEGATIVE, U Cannabinoids Screen NEGATIVE 07/10/25 05:52: POC Glucose 83 07/10/25 11:28: POC Glucose 196 H 07/10/25 16:03: POC Glucose 149 H 07/10/25 20:07: POC Glucose 96 07/11/25 07:11: POC Glucose 105 Micro: Microbiology 07/08/25 14:35 Stool Stool Occult Blood (SANJUANA) - Final Occult Blood Positive Physical Exam Const Constitutional Narrative: up in bed. non-toxic. coherent. Pt told me to leave, so thorough exam was unable to be completed. Assessment & Plan Assessment/Plan (1) Nausea & vomiting: PLAN: Plan Intractable nausea and vomiting PEG tube removed 06/21 for intense abdominal pain and drainage from the PEG tube. Check UDS, GES. GI consult. colonoscopy planned for 07/12. supportive mgmt. has been tolerating PO. She is interested in a Dobhoff. I advised awaiting on the gastric emptying study before proceding with the Dobhoff given the risk on sinus infections/ulcerations in the nasopharynx. She informed me that she will listen to Dr. Layton's recommendation. She eventually plans for reestablish with for all her care, but unable to do so until her insurance coverage changes in August. Severe protein calorie malnutrition nutrition consult recommending ensure clear 4x/d alternative feeding routes TBD. Acute on chronic anemia Had upper endoscopy on 06/21/2025 which showed normal esophagus and duodenum gastrostomy tube. PEG tube was removed. On admission hemoglobin is 7.1 and transfused with 2 unit of packed red blood cells. Hemoglobin has trended upwards today. On IV Protonix. GI consulted. Clear liquid diet. Chronic pain in lower extremities. She reviewed her portal and acknowledged that I did increase her neurontin from 400 to 600, but states that it did not help her. She is requesting Norflex. I will discontinue her tizanidine and start Norflex. Avoid narcotics given possible gastroparesis contributing to N/V. Chronic medical conditions: Type 2 diabetes mellitus with chronic. Checks ACHS. Anxiety and depression bipolar disorder: History of PCOS: Spironolactone held due to nausea and vomiting History of chronic migraines: On triptan as needed Factor V Leiden deficiency with history of DVT and PE: Lower concern for GI bleed blood thinners held. Class II obesity: BMI is 35.7. She is acute care, spoke to recovery and prognosis DVT prophylaxis: SCDs. 07/11: Upset with me for my documentation on 07/10. [place] as though I was dismissive of her complaints. I explained that I was concerned about her and tried to see what had been done at other institutions and openly expressed concern that she had been to [facility] 6 x just this month and was recommended admission during one of those ED visits, but she left AMA. She said that they were not doing anything for her, so she left. I told her I reproduced parts of notes to better understand her care, not to be dismissive. She said that I was not doing anything for her pain, but I reminded her that I did increase her gabapentin, which she previously acknowledged. I told her I would not do IV Norflex since she is taking PO. I will start PO norflex and dc Zanaflex. Again, we discussed the reasons for no narcotics. She asked me to leave. Correction from note on the , lidoderm patches were not ordered given reported history of adhesive allergy. I met with the patient in the presence of her bedside nurse, Yvrose. 07/10: Patient was upset that she was a FLD and wanted mashed potatoes. I told her that I will advance her diet. I explained that TPN would not be indicated yet, but would like to have more testing such as the GES. She quickly pivoted to her leg pain and how her leg pain was not adequately treated. I explained to her I was getting up to speed on her history and would review what further adjustment that we could do. However, I told her that I would avoid narcotics given the concern for gastroparesis and her h/o migraines. She was understanding. She was threatening to self-discharge. I told I would like to help her, but would need more time and testing to more definitely provide her the best care possible. I did bring up her frequent visits to [facility] (see below) just this month. I attempt to reassure that I will do the best I can with her care, but encouraged her to stay. She is agreeable to staying at this time. In the meantime, I have increased her gabapentin from 400 to 600 TID, added lidoderm patches. I discussed the case with Dr. Barreto, who will assume her care 07/12/2025. Previous chart reviews: review: ED 12/01/2023 From ED visit 11/30/23 [facility]: Medical Decision Making Review of patient's hospitalization at [facility] is significant for a complete evaluation including MRIs for her chronic headache issues she has sinusitis but no other pathology Additionally she had ultrasound of her left arm which showed a superficial cephalic vein which is not a DVT but given her history she was given Eliquis at discharge which patient has not had filled; patient was insisting on ketamine infusions here explained to her we do not do that she told the nurse at [facility] that her cousin was picking her up and she was gone to go to the [facility] for ketamine infusion. At [facility] pain management evaluated her and they did not recommend ketamine they wanted to stay with nonnarcotics for her headache because does believe she has drug-seeking behavior. Patient was angry that we are unable to give her what she wanted and she left was recommended that she follow-up with her neurologist or her pain management doctor she is clinically stable On reevaluation:Patient resting in bed, no distress. She remains neurologically intact. She is not hypoxic or tachycardic. We discussed results so far. Her D-dimer is normal, initial troponin is normal. She reports that she has had PEs before with normal D-dimers in the past. She states that the pleuritic chest pain that she is having currently is similar to when she has had PEs. She wants to proceed with additional imaging to further evaluate for PEs. We did discuss CTA chest, which we discussed involves IV contrast, which she does have an allergy to. We discussed 5-hour prep prior to CTA chest. Patient prefers not to have a 5-hour prep for the CTA chest. We discussed the other option is to do VQ scan, which we do not have available here and would require transfer. She is requesting to be transferred for a VQ scan and is requesting [facility]. [facility] review [facility]: ED visit [facility]: 1, 3, 9, 11, 15, 20. Admitted on the 3rd, discharged on the 4th. ED [facility] 07/03/2025: In brief, Clare Scott is a 35 y.o. female with medical history of PTSD,anasarca, anxiety who presented to the emergency department with chief complaint of rectal bleeding. Patient reports that yesterday she had 4 bouts of stoolswith chunks of blood mixed in describing them as red and maroon. Patient states his bowel movements were not painful, has not had a bowel movements at thistime. Patient states that she has a history of a PEG tube and disbelief thatshe is malnourished and that she needs TPN. She follows up with GI and she istrying to establish care with GI in the new year, not pleased with currentoutpatient GI treatment. Nursing notes and medical records reviewed, Imaging on patient is anxious appearing bedside does have mild anasarca, and istachycardic. Patient is chronically ill-appearing at bedside and does appear greater than stated age patient did have recent CT abdomen pelvis with IVcontrast done at outside hospital 3 days prior on 06-30 and henceforth I do not believe it is warranted to repeat CT scan today. The patient has had a multitude of CT scans over the past few years and patient was warned he the risk ofsustaining regarding risk of excess radiation.Differential considerations included Rectal bleeding vs. chronic anemia versus Crohn's disease versus ulcerative colitis versus dehydration versus anal fissureversus internal hemorrhoid versus external anal and no hemorrhoid.Initial medical management includes reglan, benadryl for nausea.Patient did decline rectal examination and does not believe that she has any any external anal lesions and denies a known history of hemorrhoids and perianal fissures. No signs of active hemorrhage were noted on examination. CBC with differential is unremarkable. Patient's hemoglobin is stable at 7.8. Uponre-evaluation, the patient's heart rate did improved to 100 bpm and patient doesreport feeling better at this time. The risk of admission outweighs risk of outpatient therapy and hence the patient is medically stable and clear for discharge at this time. Strict return precautions were discussed with the patient. The patient understands and agrees to above-mentioned plan andshared-decision making was utilized. Patient was provided with [facility] gastroenterology referral, [facility] outpatient nutrition referral, and [facility] referral [facility] 06/29/2025: Discharge Summary Patient was seen in ED - for anemia, and admission orders were placed, prior to being seen by admitting provided patient left AMA, was educated by nursing about risks, but left prior to being seen by provider. [facility] 06/16/2025: Discharge Summary BRIEF HOSPITAL COURSE:Clare, is a 35 year old female with history of previous clots after second son in her brachial arm, discrepancy between being told possible Factor V versus not, type 2 diabetes mellitus, who was in her normal health prior to December -where she started with nausea and emesis which came suddenly with no prior travel, no known sick contacts, no exposure to any toxins, or ticks, and since then has been having issues with weight loss, on and off period nausea and emesis, severe malnutrition with anasarca due to low protein intake resulting inPEG tube insertion, October was placed on torsemide and spironolactone which was working but then stopped working and swelling worsened. PEG tube was placed formal nourished on 05/26. Was tolerating tube feeds until two weeks ago and then suddenly sharp stabbing pain and unable to tolerate feeds and having increased pain to bilateral legs on top of chronic neuropathy.In ED, HR 120, RR 16, BP 120.78, 100% on room air,Labs - CL 111, CO2 21, Albumin 1.7, TP 5, Hgb 7.2 - droppped to 6.4 and was given one unit of blood.She was transferred to [facility] and with discussions with team - a decision was madeto discharge and she wanted to go to [facility] to get a more intensive work up with more specialized Specialist then [facility] provider. No further labs or test were done per patient request. [facility] 05/10/2025: Discharge Summary. Hospital Course: Patient with worsening swelling in legs and arms with anasarca, diarrhea, with nausea and vomiting, progressing over the last 3months. Echo with LVEF of 56%, severe proteinemia, hypoalbuminemia. GI on consult, recommending NG and enteral nutrition. Immune and renal workup per nephrology. S/p renal biopsy. Anemia as well, heme/onc recommending bone marrow biopsy, performed on 05/10/25. Patient has intermittently been refusing procedures, prolonging hospital stay. Dobhoff was to be placed during bone marrow biopsy with IR, however was not placed. Patient refused to stay for further dobhoff placement. She is requesting discharge and close outpatient follow up. Her electrolytes corrected. She is to follow up with nephrology,heme/onc, GI, PCP outpatient in 1-2 weeks. Labs and vitals reviewed and stable at time of discharge. She is discharged to home in improved an stable condition on 05/10/25. Greater than 60 minutes spent discussing with the patient, nursing, change nurse and reviewing data. Charges/Coding Visit Charges Inpatient E&M: 60281 Subs Hosp L3
[2025-07-11 08:13] VITALS: BP 133/96; PULSE 65; RESP 17; TEMP 36; O2SAT 95
[2025-07-11] MEDS: Pantoprazole Sodium 40 MG in 0.9% Normal Saline (100mL MB+) 100 ML 330 MG IV ×2 (10:32→23:32)
--- NOTE | 2025-07-11 11:23 | NURSING ---
pt states she is agreeable to having labs that can be done via fingerstick. Lab notified of pt request/decision.
[2025-07-11 12:15] LABS: Hematocrit 28.0 % (37-47); Hemoglobin 9.5 g/dL (12.0-15.0); Immature Granulocytes Count 0.150 X10^3/uL (0.0-0.0); Mean Corp Hgb Conc 33.9 g/dL (32-36); Mean Corpuscular Volume 85.6 fL (81-99); Mean Platelet Vol. 8.8 fl (6.2-12.0); NRBC Flagged by Analyzer 0 % (0-5); Platelet Count 249 K/mm3 (150-450); RBC Distribution Width CV 13.2 % (11.6-14.6); RBC Distribution Width SD 41.5 fl (35.1-43.9); Red Blood Count 3.27 M/mm3 (4.2-5.4); White Blood Count 5.9 K/mm3 (4.4-11.0)
[2025-07-11] MEDS: Orphenadrine 100 MG Tablet PO ×2 (12:17→23:21)
[2025-07-11 13:46] VITALS: BP 137/70; PULSE 48; RESP 16; TEMP 36.7; O2SAT 98
[2025-07-11] MEDS: Polyethylene Glycol 3350 BOWEL PREP PO (16:21)
[2025-07-11 22:55] VITALS: BP 112/68; PULSE 63; RESP 16; TEMP 36.4; O2SAT 100
[2025-07-12] VITALS (10 sets, daily range): BP systolic 96–134; BP diastolic 64–87; PULSE 68–78; RESP 16; TEMP 36.4–37.2; O2SAT 98–100; BMI 35.5
[2025-07-12] MEDS: 0.9% Saline Lock 10 ML Syringe IV ×7 (00:51→17:47)
[2025-07-12] MEDS: DiphenhydrAMINE 50 MG/ML Syringe IV ×3 (05:48→17:48)
--- NOTE | 2025-07-12 06:00 | EKG12_ITS ---
Test Reason : AM EKG Blood Pressure : */* mmHG Vent. Rate : 55 BPM Atrial Rate : 55 BPM P-R Int : 178 ms QRS Dur : 94 ms QT Int : 422 ms P-R-T Axes : 38 54 76 degrees QTcB Int : 403 ms Sinus bradycardia Otherwise normal ECG Artifact present Confirmed by Peterson Block ([id number]), tape editor ADRIANNA DOZIER ([id number]) on 07/16/2025 7:42:33 AM Referred By: CARLOS Confirmed By: Peterson Block
[2025-07-12 06:31] LABS: Anion Gap 9 (7-18); BUN 9 mg/dL (4-19); BUN/Creat Ratio 12.1 RATIO (10-20); Calcium,Total 9.2 mg/dL (7.6-11.0); Carbon Dioxide 18.8 mmol/L (20.0-29.0); Chloride 106 mmol/L (96-106); Estimated Creatinine Clearance 101.70 ml/min (50-250); Glucose 87 mg/dL (70-99); Potassium 5.0 mmol/L (3.5-5.1)
[2025-07-12] MEDS: Ketorolac 30 MG/ML Syringe IV ×2 (06:59→17:47)
--- NOTE | 2025-07-12 08:32 | DCINST_ITS ---
Discharge Instructions DC O2, CPAP, BIPAP needs Home O2 Discharge instructions: No Dressing / Incision Discharge Activity: Return to Normal Activity Dressing / Incision Call your doctor if you observe: Fever of 101 or Higher, Shortness of breath, Dizziness, Fainting spells, Swelling in the ankles, Chest pain and Increased palpitations (irregular heartbeat) Follow Up Care Test Results: Test results from this visit will be discussed in further detail at your follow- up appointment, if applicable. Discharge Plan Admission Admit Date/Time: 07/08/25 15:00 Attending Provider: Justyn Green Primary Care Provider: Rashawn Yip Consulting Providers: Jude Bryson; Asif Layton; Trice Morales; Soraya Woodward; Barbara Chew; Melissa Howard; Nuno Barreto Discharge Orders/Prescriptions Prescriptions: Continued albuterol sulfate 90 mcg/actuation HFA aerosol inhaler 2 puff inhalation Q6H PRN (Reason: shortness of breath or wheezing) Qty: 8.5 0RF potassium chloride 20 mEq packet 20 meq PO BID Qty: 100 1RF lorazepam [Ativan] 0.5 mg tablet 0.5 mg PO Q12H meclizine 25 mg tablet 25 mg PO BID PRN (Reason: dizziness) indomethacin 50 mg capsule 50 mg PO TID PRN (Reason: pain) Rx Instructions: administer with food or milk tizanidine 4 mg capsule 4 mg PO TID PRN (Reason: muscle spasticity) sumatriptan succinate 6 mg/0.5 mL pen injector 6 mg SUBCUT Q12H PRN (Reason: MIGRAINE) zolpidem [Ambien CR] 12.5 mg tablet,ext release multiphase 12.5 mg PO QHS PRN (Reason: insomnia) Aimovig Autoinjector 70 mg/mL auto-injector 70 mg SUBCUT .month Patient Comments: [NO ORIGINAL SIG] Rx Instructions: pt takes on the 2nd acetaminophen [Children's Acetaminophen] 160 mg/5 mL suspension Patient Comments: [NO ORIGINAL SIG] dicyclomine 20 mg tablet 20 mg PO Q6H PRN (Reason: abdominal pain) docusate sodium 100 mg capsule 100 mg PO DAILY lamotrigine 200 mg tablet 200 mg PO BID epinephrine [EpiPen 2-Scout] 0.3 mg/0.3 mL auto-injector 0.3 mg IM Q5-15M PRN (Reason: anaphylaxis) Qty: 2 1RF Rx Instructions: do not exceed 3 doses per episode Linzess 290 mcg capsule 290 mcg PO QDAY Qty: 90 0RF Patient Comments: ran out, was to be delivered today pantoprazole 40 mg tablet,delayed release (DR/EC) 40 mg PO DAILY Qty: 90 1RF (DME) Dexcom G7 Sensor Device See Rx Instructions .Route Qty: 1 5RF Rx Instructions: As directed (DME) Dexcom G7 Threshing Operator Misc See Rx Instructions .Route Qty: 1 5RF Rx Instructions: As directed (DME) lancets [OneTouch UltraSoft 2 Lancet] 30 gauge misc See Rx Instructions .Route Qty: 200 0RF Rx Instructions: Use once daily to check blood glucose level (DME) OneTouch Verio test strips Strip See Rx Instructions .Route Qty: 100 0RF Rx Instructions: Use one strip once per day to check blood glucose level ergocalciferol (vitamin D2) [Vitamin D2] 1,250 mcg (50,000 unit) capsule 1,250 mcg PO QWEEK Qty: 1 0RF spironolactone 50 mg tablet 50 mg PO BID Qty: 60 0RF magnesium oxide 400 mg magnesium tablet 400 mg PO BID Qty: 60 0RF torsemide 20 mg tablet 20 mg PO QDAY Qty: 30 0RF folic acid 1 mg tablet 1 mg PO QDAY Qty: 30 0RF sumatriptan succinate 100 mg tablet See Rx Instructions PO .COMPLEX Qty: 12 0RF Rx Instructions: take 1 tab at onset of headache; if no relief, may repeat 1 tab after at least 2 hrs; max = 2 tabs/24 hrs PO bisacodyl [Dulcolax (bisacodyl)] 5 mg tablet,delayed release (DR/EC) 20 mg PO ONCE Qty: 4 0RF Rx Instructions: Colonoscopy prep polyethylene glycol 3350 17 gram/dose powder See Rx Instructions .ROUTE .COMPLEX Qty: 238 0RF Rx Instructions: Mix entire bottle into 64oz clear liquid for colonoscopy prep; promethazine 25 mg suppository 25 mg AL Q6H PRN (Reason: nausea and vomiting) Qty: 12 1RF gabapentin 400 mg capsule 400 mg PO TID Qty: 270 0RF famotidine 20 mg tablet 20 mg PO DAILY Qty: 30 0RF Referrals / Follow Up: Asif Layton DO [Med Staff - Active Staff, Gastroenterology] - Within 3 Months Artur Shafer MD [Med Staff - Active Staff, General Surgery] - Within 1 Month Rashawn Yip PA [Primary Care Provider, Internal Medicine] - Within 1 Week Disposition Disposition (needs filled in before D/C Order can be placed): Home, Self Care
--- NOTE | 2025-07-12 08:38 | NURSING ---
This RN entered this patients room and introduced himself. Patient was very rude and demanding. This RN calmly attempted to deescalate and work with patient. Patient rudely ordered me out of the room and requested another RN.
--- NOTE | 2025-07-12 09:03 | PN.HOSP_ITS ---
Subjective Subjective Appears to be at her baseline, no new issues overnight. I did offer her a gastric emptying study which she did not want to do while she was here. She request to be discharged after colonoscopy Objective Data Objective Data Vital Signs: Vital Signs Temp Pulse Resp BP Pulse Ox O2 Del Method 97.5 F L 65 16 132/89 H 96 Room Air 07/13/25 02:00 07/13/25 02:00 07/13/25 02:00 07/13/25 02:00 07/13/25 02:00 07/13/25 08:15 Oxygen Delivery Method Room Air Weight: 188 lb 0.869 oz Body Mass Index (BMI) 35.5 Intake & Output: Intake and Output for Last 24 Hours 07/12/25 07/13/25 07/14/25 03:59 03:59 03:59 Intake Total 200 / 200 600 / 600 Balance 200 / 200 600 / 600 Lab / Micro Data 07/11/25 12:07 07/12/25 05:48 Labs: Laboratory Results - last 24 hr 07/12/25 11:42: POC Glucose 69 L 07/12/25 13:07: POC Glucose 124 H 07/12/25 15:20: POC Glucose 73 L 07/12/25 17:41: POC Glucose 59 L 07/12/25 18:56: POC Glucose 135 H 07/12/25 20:05: POC Glucose 107 H 07/12/25 22:33: POC Glucose 88 07/13/25 06:23: POC Glucose 114 H 07/13/25 08:01: POC Glucose 57 L 07/13/25 08:24: POC Glucose 75 Micro: Microbiology 07/08/25 14:35 Stool Stool Occult Blood (SANJUANA) - Final Occult Blood Positive Physical Exam Narrative General: Alert, Oriented x3, Cooperative, No apparent distress HEENT: Atraumatic, PERRLA, EOMI, Normocephalic Oral: Moist Mucosa Neck: Supple, No JVD Lungs: Diminished, Normal air movement, No rhonchi, No wheeze, No rales Cardiovascular: Regular rate, Regular Rhythm, Normal S1, Normal S2, No murmurs Abdomen: Soft, minimal generalized tender, Non-Distended, No Hepato-splenomegaly Extremities: Edema, Capillary Refill Less than 3 Seconds Skin: No rashes, No breakdown Musculoskeletal: No Tenderness to Palpation of Joints or Extremities Neurological: No focal neurological deficits, moves all extremities Psych/Mental Status: Normal Affect, Appropriate Assessment & Plan Assessment/Plan (1) Nausea & vomiting: PLAN: Plan Intractable nausea and vomiting * PEG tube removed 06/21 for intense abdominal pain and drainage from the PEG tube. * Check UDS, GES. * GI consult. * colonoscopy planned for 07/12. * supportive mgmt. * has been tolerating PO. She is interested in a Dobhoff. I advised awaiting on the gastric emptying study before proceding with the Dobhoff given the risk on sinus infections/ulcerations in the nasopharynx. * She eventually plans for reestablish with for all her care, but unable to do so until her insurance coverage changes in August. Severe protein calorie malnutrition * nutrition consult recommending ensure clear 4x/d * alternative feeding routes TBD. Acute on chronic anemia * Had upper endoscopy on 06/21/2025 which showed normal esophagus and duodenum gastrostomy tube. PEG tube was removed. On admission hemoglobin is 7.1 and transfused with 2 unit of packed red blood cells. Hemoglobin has trended upwards today. * On IV Protonix. GI consulted. Clear liquid diet. 07/12/2025: Plan for colonoscopy today and then she would like to be discharged with no further evaluations on any of her symptoms Chronic pain * in lower extremities. * She reviewed her portal and acknowledged that I did increase her neurontin from 400 to 600, but states that it did not help her. She is requesting Norflex. I will discontinue her tizanidine and start Norflex. * Avoid narcotics given possible gastroparesis contributing to N/V. 1225: I recommend outpatient follow-up with her primary care doctor for continued pain management and adjustments Chronic medical conditions: * Type 2 diabetes mellitus with chronic. Checks ACHS. * Anxiety and depression bipolar disorder: * History of PCOS: Spironolactone held due to nausea and vomiting * History of chronic migraines: On triptan as needed * Factor V Leiden deficiency with history of DVT and PE: Lower concern for GI bleed blood thinners held. * Class II obesity: BMI is 35.7. DVT: SCDs. Charges/Coding Visit Charges Inpatient E&M: 15072 Subs Hosp L2
[2025-07-12] MEDS: Pantoprazole Sodium 40 MG in 0.9% Normal Saline (100mL MB+) 100 ML 330 MG IV (11:22)
--- NOTE | 2025-07-12 11:32 | PHA.DC_ITS ---
Pharmacy [place] Med Reconciliation Pharmacy Service has performed discharge medication reconciliation for this patient. The patient's discharge medication list was reviewed for discrepancies and discrepancies were resolved. Medications at Discharge Home Medications epinephrine 0.3 mg/0.3 mL injection, auto-injector (EpiPen 2-Scout) 0.3 mg (0.3 mL) IM Q5-15M PRN anaphylaxis #2 ea 10/05/24 albuterol sulfate 90 mcg/actuation aerosol inhaler 2 puff inhalation Q6H PRN shortness of breath or wheezing #8.5 grams 11/19/24 sumatriptan succinate 6 mg/0.5 mL subcutaneous pen injector 6 mg subcut Q12H PRN MIGRAINE 12/11/24 zolpidem 12.5 mg tablet,extended release,multiphase (Ambien CR) 12.5 mg PO QHS PRN insomnia 12/18/24 linaclotide 290 mcg capsule (Linzess) 290 mcg PO QDAY #90 caps 03/26/25 potassium chloride 20 mEq oral packet 20 meq PO BID #100 ea 04/15/25 pantoprazole 40 mg tablet,delayed release 40 mg PO DAILY #90 TABLETS 04/20/25 blood-glucose sensor (Dexcom G7 Sensor device) #1 ea 04/23/25 blood-glucose,financial planning assistant,cont (Dexcom G7 Newspaper Subscription Solicitor) #1 ea 04/23/25 blood sugar diagnostic (OneTouch Verio test strips) #100 ea 04/27/25 lancets 30 gauge (OneTouch UltraSoft 2 Lancet) #200 ea 04/27/25 ergocalciferol (vitamin D2) 1,250 mcg (50,000 unit) capsule (Vitamin D2) 1,250 mcg PO QWEEK #1 cap 05/12/25 folic acid 1 mg tablet 1 mg PO QDAY #30 tabs 05/12/25 magnesium oxide 400 mg PO BID #60 tabs 05/12/25 spironolactone 50 mg tablet 50 mg PO BID #60 tabs 05/12/25 torsemide 20 mg tablet 20 mg PO QDAY #30 tabs 05/12/25 indomethacin 50 mg capsule 50 mg PO TID PRN pain 05/17/25 lorazepam 0.5 mg tablet (Ativan) 0.5 mg PO Q12H 05/17/25 meclizine 25 mg tablet 25 mg PO BID PRN dizziness 05/17/25 tizanidine 4 mg capsule 4 mg PO TID PRN muscle spasticity 05/17/25 erenumab-aooe 70 mg/mL subcutaneous auto-injector (Aimovig Autoinjector) 70 mg subcut .month 05/29/25 sumatriptan succinate 100 mg tablet See Rx Instructions PO .COMPLEX #12 tabs 06/01/25 bisacodyl 5 mg tablet,delayed release (Dulcolax (bisacodyl)) 20 mg (4 x 5 mg) PO ONCE #4 tabs 06/08/25 polyethylene glycol 3350 17 gram/dose oral powder See Rx Instructions .Route .COMPLEX #238 grams 06/08/25 promethazine 25 mg rectal suppository 25 mg NC Q6H PRN nausea and vomiting #12 ea 06/14/25 gabapentin 400 mg capsule 400 mg PO TID #270 caps 06/15/25 acetaminophen 160 mg/5 mL oral suspension (Children's Acetaminophen) mg 06/18/25 dicyclomine 20 mg tablet 20 mg PO Q6H PRN abdominal pain 06/18/25 docusate sodium 100 mg capsule 100 mg PO DAILY for constipation 06/18/25 famotidine 20 mg tablet 20 mg PO DAILY #30 tabs 06/18/25 lamotrigine 200 mg tablet 200 mg PO BID 07/10/25
--- NOTE | 2025-07-12 12:02 | CASEMGMT ---
Social Work SW assisted pt in changing her POA for Healthcare and LW. SW put all of pt's old copies pt had with her in the shredder for the pt and gave pt new copies. She has now named her friend Андрей Garcíaveritoluzma as HCPOA. SW updated demographics. New POA documents placed on chart and the POA documents from Saturday were also taken off the chart and placed in the shredder. LUDMILA Hameed
--- NOTE | 2025-07-12 15:13 | PRE.ANES_ITS ---
ASA Classification* ASA Classification ASA Classification: 2 Assessment & Plan Anesthesia* Anesthesia Assessment Anesthesia Assessment: Discussed sedation and/or anesthesia options, risks, benefits, and alternatives with patient/parents/legal guardian/POA. Questions invited. The patient/parents/legal guardian/POA seems to understand and agrees to proceed with anesthesia plan. Reviewed the physical assessment, medical history, allergy history and patient home medications list prior to surgery/procedure/anesthetic and documented any changes. Performed airway and anesthesia risk assessments. Anesthesia Type Anesthesia Type: MAC History Source History Obtained from:: Patient and Chart Anesthesia Focused Assessment* Temperature: 98.4 F Pulse Rate: 69 Blood Pressure: 123/81 Respiratory Rate: 16 Pulse Ox: 100 Oxygen Delivery Method: Room Air Airway Assessment Mouth opens: >3 cm Mallampati Score: II Teeth Condition: Dentures Neck Range of motion (ROM): Full ROM Labs Anesthesia Preop lab: CBC WBC, (4.4-11.0) 5.9 K/mm3 07/11/25, 12:07 RBC, (4.2-5.4) 3.27 M/mm3 L 07/11/25, 12:07 Hgb, (12.0-15.0) 9.5 g/dL L 07/11/25, 12:07 Hct, (37-47) 28.0 % L 07/11/25, 12:07 Plt Count, (150-450) 249 K/mm3 07/11/25, 12:07 CHEMISTRY Potassium, (3.5-5.1) 5.0 mmol/L Today, 05:48 Sodium, (135-145) 134 mmol/L L Today, 05:48 Magnesium, (1.5-2.2) 1.7 mg/dL 07/08/25, 12:55 Phosphorus, (2.7-4.5) 3.4 mg/dL 07/08/25, 12:55 BUN, (4-19) 9 mg/dL Today, 05:48 Creatinine, (0.70-1.20) 0.78 mg/dL Today, 05:48 Glucose, (70-99) 87 mg/dL Today, 05:48 POC Glucose, (74-106) 124 mg/dL H Today, 13:07 TSH, (0.300-4.200) 3.150 uIU/mL 04/14/25, 13:56 COAG PT, (11.7-14.9) 18.9 SECONDS H 03/22/25, 03:53 Urine Test Negative Negative 07/08/25, 17:51 Pre-Assessment Diagnosis/Proposed Procedure Planned Operative Procedure(s): Colonoscopy Anesthesia History Anesthesia History - conference center coordinator: Anesthesia History - conference center coordinator Hx Hospitalization Yes: IV ANTIBIOTICS WITH PEG 06/18/25 13:25 TUBE Any Problems With Anesthesia Yes: nausea/vomiting 07/09/25 00:21 Cholinesterase deficiency No 07/09/25 00:21 You/Your Family Experience No 07/09/25 00:21 fever (hyperthermia) with Relationship Recent Exposure to Contagious No 07/09/25 00:21 Disease Does patient have nerve No 07/09/25 00:21 stimulator Patient instructed to have device shut off --Does patient have Pacemaker No 07/12/25 13:11 or ICD? When Was Last Pacemaker Check QUESTION #4 FULL TEXT: You/Your Family Experience fever (hyperthermia) with Anesthesia Last Oral Intake Last Oral intake: Last Oral Intake NPO since 11:20 07/12/25 13:11 Meds taken in AM with sips of Yes 07/12/25 13:11 water? Meds patient instructed to ativan po 0.5mg 07/12/25 13:11 take am of surgery PONV PONV - conference center coordinator: PONV - conference center coordinator Female HX of Motion Sickness HX of N/V After Surgery Non-Smoker Duration of Surgery greater than 60 minutes Number of Risk Factors PONV Score Height & Weight Height & Weight: Anesthesia: Height & Weight Height 5 ft 1 in 07/12/25 13:11 Weight: 85.3 kg 07/12/25 13:11 Body Mass Index (BMI) 35.5 07/12/25 13:11 Respiratory Assessment Respiratory Assessment - conference center coordinator: Respiratory Tract Infection Hx - conference center coordinator Hx Respiratory Tract Infection No 07/09/25 00:21 STOP Sleep Apnea STOP Sleep Apnea - conference center coordinator: STOP Sleep Apnea - conference center coordinator Hx Hypertension No 07/09/25 08:15 Hx Sleep Apnea No 07/08/25 16:29 CPAP No 05/29/25 20:47 BIPAP Do you snore loudly (louder No 07/08/25 16:29 than talking or can be heard Do you often feel tired/ Yes 07/08/25 16:29 fatigued/ sleepy during daytime? Has anyone observed you stop No 07/08/25 16:29 breathing during sleep? STOP Results Negative 07/08/25 16:29 QUESTION #5 FULL TEXT : Do you snore loudly (louder than talking or can be heard through closed doors)? Tobacco Use History Tobacco Use History - conference center coordinator: Tobacco Use History - conference center coordinator Tobacco Use Smoking Status Never smoker 07/08/25 16:29 Hx Tobacco Use No 07/08/25 16:29 Years Smoking Packs Smoked per Day Smoking Cessation Date was within the last 15 years Hx Smoking Cessation Date Hx Smoking Cessation Counseling Hematologic Medial History Hematologic Hx - conference center coordinator: Hematologic Medical Hx - manager wound care Hx of Blood Transfusion Yes 07/08/25 16:29 Hx of Transfusion in last 3 No 07/08/25 16:29 Months Date of Last Transfusion (if within last 3 months) Ever experience any problems Yes 07/08/25 16:29 with transfusion(s)? Specify any problems itching and nausea but a 07/08/25 16:29 weird type of nausea but tolerable Hx of Preganancy in last 3 No 07/08/25 16:29 Months Nurse Filling Out Transfusion TCLEVIDEN 07/08/25 16:29 & Questions: Date: 07/08/25 07/08/25 16:29 Time: 17:15 07/08/25 16:29 Patient unable to answer at this time (ie. confused, unrespo /Reproduction History /Reproductive History - conference center coordinator: /Reproductive Hx- conference center coordinator Hx Now No 07/09/25 00:21 Gestational Age (in weeks): EDC: Hx Hx Para Hx Section SAB No 07/09/25 00:21 Does the father of the baby or his family experience fever w Father of the baby Malignant Hypertension history comment Active Medications Active Medications: Current Medications Generic Name Dose Route Start Last Admin Trade Name Freq PRN Reason Stop Dose Admin Acetaminophen 1,000 mg 07/10/25 14:00 07/12/25 13:33 Acetaminophen 500 Mg Tablet PO Not Given Q8 NIGEL Al Hydrox/Mg Hydrox/Simethicone 30 ml 07/08/25 16:27 Mag /Aluminum/Simeth Wch Udc 30 Ml Oral.Susp PO Q6H PRN PRN Gastric Burning Albuterol Sulfate 2.5 mg 07/08/25 16:27 Albuterol 2.5 Mg/3 Ml Vial.Neb. INHALATION Q2H PRN PRN Dyspnea, wheezing Calamine/Phenol 1 applic 07/11/25 23:34 Menthol/Lanolin/Calamine/Znox 113 Gm Tube TOPICAL BID PRN sore rectum from bowel prep Protocol Dicyclomine HCl 20 mg 07/08/25 16:32 07/11/25 23:18 Dicyclomine 10 Mg Capsule PO 20 mg Q6H PRN Administration abdominal pain Diphenhydramine HCl 50 mg 07/09/25 16:32 07/12/25 11:22 Diphenhydramine 50 Mg/Ml Syringe IV 50 mg Q6H PRN PRN Administration give with zofran concurrently Docusate Sodium 100 mg 07/09/25 10:00 07/12/25 11:07 Docusate Sodium 100 Mg Capsule PO Not Given DAILY NIGEL Gabapentin 600 mg 07/10/25 14:00 07/12/25 13:33 Gabapentin 300 Mg Capsule PO Not Given TID NIGEL Glucagon 1 mg 07/08/25 16:27 Glucagon 1 Mg/Ml Syringe IM X1 PRN Hypoglycemia Protocol Guaifenesin 20 ml 07/08/25 16:27 Guaifenesin 10 Ml Udc (200mg/10ml) PO Q4H PRN PRN COUGH Hydralazine HCl 10 mg 07/08/25 16:27 Hydralazine 20 Mg/Ml Vial IV Q4H PRN PRN SBP > 160 Protocol Pantoprazole Sodium 40 mg/ 100 mls @ 330 mls/hr 07/08/25 16:27 07/12/25 11:41 Sodium Chloride IV Infused Q12 NIGEL Infusion Dextrose 250 mls @ 0 mls/hr 07/08/25 16:27 07/12/25 12:49 Dextrose 10%-Water IV Infused .Q0M PRN Infusion HYPOGLYCEMIA Protocol As Directed Sodium Chloride 250 mls @ 15 mls/hr 07/08/25 20:35 07/09/25 21:37 IV Infused .[id number] PRN Infusion Saline Flush Sodium Chloride 250 mls @ 15 mls/hr 07/08/25 20:35 IV .[id number] PRN Additional IVPB Infusion Lactated Ringer's 1,000 mls @ 15 mls/hr 07/12/25 15:15 IV .Q48H NIGEL Insulin Human Lispro 0 unit 07/11/25 07:00 07/12/25 11:49 Insulin Lispro 100 Unit/Ml Insuln.Pen SC Not Given ACHS [facility], [facility]1983 Protocol Ketorolac Tromethamine 30 mg 07/08/25 23:05 07/12/25 06:59 Ketorolac 30 Mg/Ml Syringe IV 07/13/25 23:05 30 mg Q8H PRN PRN Administration Pain 1-10 or Fever Lamotrigine 200 mg 07/10/25 11:00 07/12/25 11:28 Lamotrigine 100 Mg Tablet PO Not Given BID NIGEL Lorazepam 0.5 mg 07/08/25 22:00 07/12/25 11:21 Lorazepam 0.5 Mg Tablet PO 0.5 mg Q12 NIGEL Administration Meclizine HCl 25 mg 07/08/25 16:27 07/10/25 10:17 Meclizine Hcl 25 Mg Tablet PO 25 mg BID PRN Administration DIZZINESS Nutritional Formula (Lactose Free) 120 ml 07/08/25 18:00 07/12/25 13:33 Ensure Clear 120 Ml Liquid PO Not Given 4X/DAY [facility] Ondansetron HCl 4 mg 07/09/25 16:30 07/12/25 11:22 Ondansetron 4 Mg/2 Ml Vial IV 4 mg Q6H PRN PRN Administration NAUSEA/VOMITING Orphenadrine Citrate 100 mg 07/11/25 10:40 07/12/25 11:28 Orphenadrine 100 Mg Tablet PO Not Given BID NIGEL Potassium Chloride 20 meq 07/08/25 17:00 07/12/25 09:57 Potassium Chloride Oral Soln 20 Meq/15 Ml Udc [facility] Promethazine HCl 25 mg 07/08/25 16:27 Promethazine 25 Mg Suppos. RC Q6H PRN nausea and vomiting Rizatriptan Benzoate 10 mg 07/08/25 16:36 Rizatriptan Benzoate 10 Mg Tablet PO Q2H PRN PRN MIGRAINE SYMPTOMS Sodium Chloride 10 - 40 ml 07/08/25 21:07 07/12/25 13:55 0.9% Saline Lock 10 Ml Syringe IV 20 ml UD PRN Administration SALINE FLUSH Sumatriptan Succinate 6 mg 07/10/25 10:30 07/11/25 12:17 Sumatriptan 6 Mg/0.5 Ml Vial SC 6 mg Q12H PRN Administration MIGRAINE SYMPTOMS Zolpidem Tartrate 10 mg 07/08/25 16:35 07/11/25 23:18 Zolpidem Tartrate 5 Mg Tablet PO 10 mg QHS PRN Administration insomnia PFSH Medical History Infection due to Port-A-Cath Irritation around percutaneous endoscopic gastrostomy (PEG) tube site Walker as ambulation aid CAP (community acquired pneumonia) Hx of substance abuse Bipolar disorder Kidney stones GERD (gastroesophageal reflux disease) Non-smoker Generalized weakness Anemia Easy bruising Dietary restriction Implantable loop recorder present Wears glasses Anxiety MRSA infection Substance abuse History of steroid therapy Diabetes Injury of head and neck History of IBS Gastric reflux Neuropathy delivery delivered Arthritis Prolonged QT interval PCOS (polycystic ovarian syndrome) Factor V Leiden Anxiety Depression Pulmonary embolism DVT (deep venous thrombosis) TIA (transient ischemic attack) Ovarian cyst Home Medications ?Medication ?Instructions ?Recorded ?Last Taken ?Type epinephrine 0.3 mg/0.3 mL 0.3 mg (0.3 mL) IM Q5-15M CO N 10/05/24 Unknown Rx injection, auto-injector (EpiPen anaphylaxis #2 ea 2-Scout) albuterol sulfate 90 mcg/actuation 2 puff inhalation Q 6H PRN 11/19/24 Unknown Rx aerosol inhaler shortness of breath or wheez ing #8.5 grams sumatriptan succinate 6 mg/0.5 mL 6 mg subcut Q12H PRN MIGRAINE 12/11/24 Unknown History subcutaneous pen injector zolpidem 12.5 mg tablet,extended 12.5 mg PO QHS PRN in somnia 12/18/24 06/20/25 History release,multiphase (Ambien CR) linaclotide 290 mcg capsule 290 mcg PO QDAY #90 caps 0 03/26/25 06/20/25 Rx (Linzess) potassium chloride 20 mEq oral 20 meq PO BID #100 ea 1 Unknown Rx packet pantoprazole 40 mg tablet,delayed 40 mg PO DAILY #90 T ABLETS 04/20/25 06/20/25 Rx release blood-glucose sensor (Dexcom G7 #1 ea 04/23/25 Unknown Rx Sensor device) blood-glucose,candle wicker,cont #1 ea 04/23/25 Unknown Rx (Dexcom G7 Stereo Map Plotter Operator) blood sugar diagnostic (OneTouch #100 ea 04/27/25 Unkn own Rx Verio test strips) lancets 30 gauge (OneTouch #200 ea 04/27/25 Unknown Rx UltraSoft 2 Lancet) ergocalciferol (vitamin D2) 1,250 1,250 mcg PO QWEEK # 1 cap 05/12/25 06/14/25 Rx mcg (50,000 unit) capsule (Vitamin D2) folic acid 1 mg tablet 1 mg PO QDAY #30 tabs 06/20/25 Rx magnesium oxide 400 mg PO BID #60 tabs 05/1206/20/25 Rx spironolactone 50 mg tablet 50 mg PO BID #60 tabs 04/1506/20/25 Rx torsemide 20 mg tablet 20 mg PO QDAY #30 tabs 05/1206/20/25 Rx indomethacin 50 mg capsule 50 mg PO TID PRN pain 05/1706/20/25 History lorazepam 0.5 mg tablet (Ativan) 0.5 mg PO Q12H 06/20/25 History meclizine 25 mg tablet 25 mg PO BID PRN dizziness 1 07/17/24 Unknown History tizanidine 4 mg capsule 4 mg PO TID PRN muscle spast icity 05/17/25 06/20/25 History erenumab-aooe 70 mg/mL 70 mg subcut .month 05/29/25 05/24/25 History subcutaneous auto-injector (Aimovig Autoinjector) sumatriptan succinate 100 mg tablet See Rx Instruction s PO .COMPLEX 06/01/25 Unknown Rx #12 tabs bisacodyl 5 mg tablet,delayed 20 mg (4 x 5 mg) PO ONCE #4 tabs 06/08/25 06/20/25 Rx release (Dulcolax (bisacodyl)) polyethylene glycol 3350 17 See Rx Instructions .Route 06/08/25 Unknown Rx gram/dose oral powder .COMPLEX #238 grams promethazine 25 mg rectal 25 mg CO Q6H PRN nausea and 06/14/25 Unknown Rx suppository vomiting #12 ea gabapentin 400 mg capsule 400 mg PO TID #270 caps 09/0806/20/25 Rx acetaminophen 160 mg/5 mL oral mg 06/18/25 06/20/25 Hi story suspension (Children's Acetaminophen) dicyclomine 20 mg tablet 20 mg PO Q6H PRN abdominal p ain 06/18/25 06/20/25 History docusate sodium 100 mg capsule 100 mg PO DAILY for con stipation 06/18/25 06/20/25 History famotidine 20 mg tablet 20 mg PO DAILY #30 tabs 12/0606/20/25 Rx lamotrigine 200 mg tablet 200 mg PO BID 07/10/25 Unkno wn History Allergy/AdvReac Type Severity Reaction Status Date / Time bee venom protein (honey Allergy Severe Anaphylaxis Verified 07/08/25 12:14 bee) (bee sting) ziprasidone (From Geodon) Allergy Severe facial Verified 07/08/25 12:14 swelling ciprofloxacin (From Cipro) Allergy Intermediate Angioedema Verified 07/08/25 12:14 levofloxacin (From Levaquin) Allergy Intermediate Angioedema Verified 07/08/25 12:14 adhesive tape Allergy Mild Rash Verified 07/08/25 12:14 latex Allergy Mild Rash Verified 07/08/25 12:14 Iodinated Contrast Media Allergy Hives Verified 07/08/25 12:14 ondansetron (From Zofran) Allergy Hives Verified 07/08/25 12:14 propranolol Allergy Angioedema Verified 07/08/25 12:14 midazolam (From Versed) AdvReac Severe Other Verified 07/08/25 12:14 haloperidol (From Haldol) AdvReac Other Verified 07/08/25 12:14 metoclopramide (From Reglan) AdvReac Other Verified 07/08/25 12:14 Family History Father Alcoholism Hypertension Thyroid disorder Mother Anxiety Autoimmune disorder Bleeding disorder Hypertension Mental disorder CVA (cerebral vascular accident) Suicide attempt Thyroid disorder Other Breast cancer Colon cancer Diabetes Heart disease Myocardial infarction Ovarian cancer Surgical History Hx of colonoscopy PEG (percutaneous endoscopic gastrostomy) status S/P percutaneous endoscopic gastrostomy (PEG) tube placement History of vascular access device Port-A-Cath in place H/O hernia repair H/O wisdom tooth extraction H/O oophorectomy Hx of cholecystectomy H/O tubal ligation Social History adopted: No household members: children and none number of children: 2 current occupational status: unemployed pets and animals: No sexually active: No Smoking Status: Never smoker alcohol intake: never substance use type: does not use caffeine: No frequency: 3-4 times per week do you feel safe at home: Yes Review of Systems (Anesthesia) ROS Narrative System reviewed and no additional complaints, except as documented.
[2025-07-12] MEDS: Lactated Ringers 1,000 ML 15 ML IV (15:15)
--- NOTE | 2025-07-12 16:18 | PCM.PN.BLA ---
Progress Note Patient prep last night for colonoscopy. She tolerated the prep without any problems. She did not have any nausea, vomiting or upset stomach with the prep. Physical Exam Const alert, oriented x3, no apparent distress and healthy appearing General Appearance: cooperative GI normal to inspection, nondistended, normoactive bowel sounds, soft to palpation, non-tender and non-distended Percussion: normal to percussion Rectal Exam: deferred Assessment & Plan Assessment/Plan (1) GI bleed: (2) Nausea & vomiting: PLAN: Patient will undergo colonoscopy. She was explained alternatives, risk and benefits include not withstanding bleeding, infection, sepsis, perforation, need for surgery . She will have an ASA of 3. Visit Charges Inpatient E&M: 00811 Subs Hosp L3
[2025-07-12] MEDS: Lactated Ringers 500 ML IV (16:33)
--- NOTE | 2025-07-12 16:52 | SUR.PHASEI ---
Addendum entered by Michelle Awan 07/12/25 17:16: ADDENDUM: PATIENT VERBALIZES THAT STAFF DON'T KNOW WHAT THEY'RE DOING, INSISTS ON ALL PACU EQUIPMENT BE REMOVED AND PATIENT RETURNED TO INPATIENT ROOM. CHARTING COMPLETE. UNKNOWN PERSONAL BELONGINGS IN BAG, EYE GLASSES IN CASE, AND CELL PHONE ALL RETURNED TO PATIENT AND PLACED DIRECTLY IN FRONT OF HER WITHIN REACH. REPORTS CALLED TO [facility] RENEWAL SPECIALIST, JAYDEN, TO INFORM INCOMPLETE COLONOSCOPY, ENDO RN STATES UNABLE TO ADVANCE SCOPE MUCH BEYOND THE RECTUM. PATIENT EXPRESSES ANGER ABOUT INCOMPLETE SCOPE. Original Note: C/O NAUSEA, OFFERED ZOFRAN, STATES SHE CAN ONLY TAKE WITH BENADRYL. ASKED DR DENNIS, ANESTHESIA, FOR BENADRYL ORDER AND HE WROTE FOR 25 MG IV TO BE GIVEN PRIOR TO ZOFRAN. PATIENT REFUSED, ASKED FOR 50 MG. ANGRY, REFUSING TO TALK TO NURSE.
--- NOTE | 2025-07-12 16:52 | PCM.POST.ANE ---
Anesthesia: Postop Eval I Current Vital Signs Temperature: 97.9 F Pulse Rate: 69 Blood Pressure: 110/77 Respiratory Rate: 16 Pulse Ox: 100 Assessment Airway patent: Yes Spontaneous unlabored respirations: Yes nausea: No Vomiting: No Anesthesia Complication: No Fluid Hydration Crystalloid volume administer (ml): 300 Total IV fluid infused: 300 Progress Note Anesthesia document: Postop Eval 1 completed: Yes
--- NOTE | 2025-07-12 16:58 | SUR.PHASEI ---
PATIENT VERBALIZES THAT STAFF DON'T KNOW WHAT YOU'RE DOING, INSISTS ALL EQUIPMENT BE REMOVED AND PATIENT RETURNED TO HER ROOM. CHARTING COMPLETE. PATIENT'S BAG OF UNKNOWN PERSONAL BELONGINGS, CELL PHONE, AND EYE GLASSES IN CASE RETURNED AND PLACED IN REACH.
--- NOTE | 2025-07-12 17:04 | OP.PROVAT_ITS ---
07/12/2025 M[facility] [address] [address] Re : Colonoscopy procedure for Clare Scott Dear Mr. Yip This procedure was performed on Saturday, July 12, 2025. My impressions and recommendations are as follows: Impressions : - Preparation of the colon was inadequate. - Stool in the rectum, in the recto-sigmoid colon, in the sigmoid colon, in the descending colon, at the splenic flexure, in the transverse colon, at the hepatic flexure, in the ascending colon and in the cecum. - No specimens collected. Recommendations : - Return patient to hospital hein for ongoing care. - Resume regular diet. - Continue present medications. - Repeat colonoscopy because the bowel preparation was poor. My findings are described in the full procedure note, which is enclosed. If I can be of further assistance, please feel free to contact me at . Sincerely, Asif Layton, 07/12/2025 5:03:47 PM This report has been signed electronically.
--- NOTE | 2025-07-12 17:04 | OP.COLON_ITS ---
Patient Name: Clare Scott Procedure Date: 07/12/2025 3:41 PM Date of : 1990 Age: 35 Procedure: Colonoscopy Indications: Iron deficiency anemia Providers: Asif Layton DO Medicines: Monitored Anesthesia Care Patient Profile: This is a 35 year old female. Refer to note in patient chart for documentation of history and physical. Last Colonoscopy: none. The patient's first colonoscopy is today. Complications: No immediate complications. Procedure: Pre-Anesthesia Assessment: - Prior to the procedure, a History and Physical was performed, and patient medications and allergies were reviewed. The patient is competent. The risks and benefits of the procedure and the sedation options and risks were discussed with the patient. All questions were answered and informed consent was obtained. Patient identification and proposed procedure were verified by the physician in the pre-procedure area. Mental Status Examination: alert and oriented. Airway Examination: normal oropharyngeal airway and neck mobility. Respiratory Examination: clear to auscultation. CV Examination: normal. Prophylactic Antibiotics: The patient does not require prophylactic antibiotics. Prior Anticoagulants: The patient has taken no anticoagulant or antiplatelet agents. ASA Grade Assessment: II - A patient with mild systemic disease. After reviewing the risks and benefits, the patient was deemed in satisfactory condition to undergo the procedure. The anesthesia plan was to use monitored anesthesia care (MAC). Immediately prior to administration of medications, the patient was re-assessed for adequacy to receive sedatives. The heart rate, respiratory rate, oxygen saturations, blood pressure, adequacy of pulmonary ventilation, and response to care were monitored throughout the procedure. The physical status of the patient was re-assessed after the procedure. After I obtained informed consent, the scope was passed under direct vision. Throughout the procedure, the patient's blood pressure, pulse, and oxygen saturations were monitored continuously. The Colonoscope was introduced through the anus and advanced to the hepatic flexure. The colonoscopy was performed without difficulty. The patient tolerated the procedure well. The quality of the bowel preparation was inadequate. Scope In: 4:42:21 PM Scope Out: 4:45:15 PM Total Procedure Duration Time 0 hours 2 minutes 54 seconds Findings: The perianal and digital rectal examinations were normal. Extensive amounts of stool was found in the rectum, in the recto-sigmoid colon, in the sigmoid colon, in the descending colon, at the splenic flexure, in the transverse colon, at the hepatic flexure, in the ascending colon and in the cecum, precluding visualization. Lavage of the area was performed using greater than 500 mL of sterile water, resulting in incomplete clearance with continued poor visualization. Impression: - Preparation of the colon was inadequate. - Stool in the rectum, in the recto-sigmoid colon, in the sigmoid colon, in the descending colon, at the splenic flexure, in the transverse colon, at the hepatic flexure, in the ascending colon and in the cecum. - No specimens collected. Recommendation: - Return patient to hospital [facility] for ongoing care. - Resume regular diet. - Continue present medications. - Repeat colonoscopy because the bowel preparation was poor. Procedure Code(s): --- Professional --- 04879, 53, Colonoscopy, flexible; diagnostic, including collection of specimen(s) by brushing or washing, when performed (separate procedure) CPT copyright 2021 [employer]. All rights reserved. The codes documented in this report are preliminary and upon database admin review may be revised to meet current compliance requirements. Asif Layton DO 07/12/2025 5:03:47 PM This report has been signed electronically. Number of Addenda: 0 Note Initiated On: 07/12/2025 3:41 PM
--- NOTE | 2025-07-12 17:08 | POSTOPAN2_ITS ---
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
--- NOTE | 2025-07-12 17:08 | PCM.POSTANE2 ---
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 Spontaneous unlabored Yes 07/12/25 16:52 [email or web address] respirations Mental status nausea No 07/12/25 16:52 [email or web address] Vomiting No 07/12/25 16:52 [email or web address] Anesthesia Postop Eval I: Fluid Summary Crystalloid volume administer 300 07/12/25 16:52 [email or web address] (ml) Colloids volume administered ( ml) Blood Product volume administered (ml) Total IV fluid infused 300 07/12/25 16:52 [email or web address] Anesthesia Postop Eval I: Summary Notes Anesthesia Complication No 07/12/25 16:52 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
[2025-07-12] MEDS: Orphenadrine 100 MG Tablet PO (22:29)
[2025-07-13] MEDS: DiphenhydrAMINE 50 MG/ML Syringe IV ×2 (00:22→06:28)
[2025-07-13] MEDS: 0.9% Saline Lock 10 ML Syringe IV ×2 (00:23→08:58)
[2025-07-13 02:00] VITALS: BP 132/89; PULSE 65; RESP 16; TEMP 36.4; O2SAT 96
[2025-07-13] MEDS: Ketorolac 30 MG/ML Syringe IV (05:34)
[2025-07-13 09:11] VITALS: BP 138/78; PULSE 72; RESP 16; TEMP 36.6; O2SAT 97
--- NOTE | 2025-07-13 09:22 | PCM.DC.SUM ---
Providers Date of Admission: 07/08/25 Primary Care Physician: MJ Fried Consultations 07/09/25 11:49 Consult: Gastroenterology Routine Consulting Provider: [facility] Reason for Consult: acute on chronic anemia EMERGENT Consult: No MD Notified: Yes Date Notified: 07/09/25 Time Notified: 11:49 Method of Notification: Text Reason For Visit: INTRACTABLE N/V, ? GI BLEED, ADULT FTT Diagnosis Discharge Diagnosis (1) Nausea & vomiting: Status: Acute Code(s): R11.2 - Nausea with vomiting, unspecified Medications at Discharge Home Medications epinephrine 0.3 mg/0.3 mL injection, auto-injector (EpiPen 2-Scout) 0.3 mg (0.3 mL) IM Q5-15M PRN anaphylaxis #2 ea 10/05/24 albuterol sulfate 90 mcg/actuation aerosol inhaler 2 puff inhalation Q6H PRN shortness of breath or wheezing #8.5 grams 11/19/24 sumatriptan succinate 6 mg/0.5 mL subcutaneous pen injector 6 mg subcut Q12H PRN MIGRAINE 12/11/24 zolpidem 12.5 mg tablet,extended release,multiphase (Ambien CR) 12.5 mg PO QHS PRN insomnia 12/18/24 linaclotide 290 mcg capsule (Linzess) 290 mcg PO QDAY #90 caps 03/26/25 potassium chloride 20 mEq oral packet 20 meq PO BID #100 ea 04/15/25 pantoprazole 40 mg tablet,delayed release 40 mg PO DAILY #90 TABLETS 04/20/25 blood-glucose sensor (Dexcom G7 Sensor device) #1 ea 04/23/25 blood-glucose,presbyterian [employer],cont (Dexcom G7 Computer Terminal Operator) #1 ea 04/23/25 blood sugar diagnostic (OneTouch Verio test strips) #100 ea 04/27/25 lancets 30 gauge (OneTouch UltraSoft 2 Lancet) #200 ea 04/27/25 ergocalciferol (vitamin D2) 1,250 mcg (50,000 unit) capsule (Vitamin D2) 1,250 mcg PO QWEEK #1 cap 05/12/25 folic acid 1 mg tablet 1 mg PO QDAY #30 tabs 05/12/25 magnesium oxide 400 mg PO BID #60 tabs 05/12/25 spironolactone 50 mg tablet 50 mg PO BID #60 tabs 05/12/25 torsemide 20 mg tablet 20 mg PO QDAY #30 tabs 05/12/25 indomethacin 50 mg capsule 50 mg PO TID PRN pain 05/17/25 lorazepam 0.5 mg tablet (Ativan) 0.5 mg PO Q12H 05/17/25 meclizine 25 mg tablet 25 mg PO BID PRN dizziness 05/17/25 tizanidine 4 mg capsule 4 mg PO TID PRN muscle spasticity 05/17/25 erenumab-aooe 70 mg/mL subcutaneous auto-injector (Aimovig Autoinjector) 70 mg subcut .month 05/29/25 sumatriptan succinate 100 mg tablet See Rx Instructions PO .COMPLEX #12 tabs 06/01/25 bisacodyl 5 mg tablet,delayed release (Dulcolax (bisacodyl)) 20 mg (4 x 5 mg) PO ONCE #4 tabs 06/08/25 polyethylene glycol 3350 17 gram/dose oral powder See Rx Instructions .Route .COMPLEX #238 grams 06/08/25 promethazine 25 mg rectal suppository 25 mg WA Q6H PRN nausea and vomiting #12 ea 06/14/25 acetaminophen 160 mg/5 mL oral suspension (Children's Acetaminophen) mg 06/18/25 dicyclomine 20 mg tablet 20 mg PO Q6H PRN abdominal pain 06/18/25 docusate sodium 100 mg capsule 100 mg PO DAILY for constipation 06/18/25 famotidine 20 mg tablet 20 mg PO DAILY #30 tabs 06/18/25 lamotrigine 200 mg tablet 200 mg PO BID 07/10/25 gabapentin 400 mg capsule 600 mg (1.5 x 400 mg) PO TID #270 caps 07/13/25 Hospital Course Operations None Procedures Colonoscopy Summary of Care Provided Minutes Spent on Discharge: 36 Hospital Course: Per HPI: The patient is a 35 y/o F w/ PMHx: Obesity, Chronic normocytic anemia, GERD, Anxiety and Depression/Bipolar disorder, Diabetes mellitus type II, Hx Substance abuse, PCOS, Hx Factor 5 Leiden deficiency with history of VTE (DVT, PE), Chronic migraines headaches, noted recent outpatient surgery evaluation 07/05/2025 secondary to concern of viability of the port with follow-up 07/05/2025 venous access device evaluation noted to be patent however noted difficulty to inject with backwards flow around the catheter with no extraluminal extravasation noted however now presents to the [facility] ED on 07/08/2025 with patient reporting debility, weakness, multiple falls with intractable nausea and emesis and difficulty keeping items down with history of removal of PEG tube 3 weeks prior with decreased urine output and questionable blood in her stool prompting ED evaluation. There is no reported blood in her emesis. Patient notes still having chronic constipation/loose stools that is unchanged. Workup in the ED included T97.8, heart rate 91, BP 118/83, respiratory rate 18, 98% on room air, CBC with DepoCyt 4.9, hemoglobin 7.1, MCV 89.4, platelet 239 without marked shift, CMP with chloride 108, BUN/creatinine 14/0.58, GFR 122, glucose 145, hepatic profile not marked appearing type and cross initiated for 1 unit per ED, stool guiac pending per ED. In the ED patient ministered 1 L normal saline, diphenhydramine 50 mg p.o. x 1, 25 mg p.o. x 1 and prochlorperazine 5 mg IV x 1. Hospital Course: 1. Intractable nausea and vomiting with severe protein calorie malnutrition with acute on chronic anemia?35-year-old female with extensive past medical history presented to the hospital with intractable nausea and vomiting. She had recently had a PEG tube placed because she could not eat however this was removed due to increased pain. She had seen general surgery as an outpatient for evaluation of possible gastric emptying study however this has not had a chance to be done yet. I did discuss with her the possibility of getting it done while she is here however she does not want to have any further interventions done at this facility as she had her colonoscopy yesterday and she would just like to go home. Unfortunately her prep was poor. Her nausea and vomiting does appear to be a little bit improved and she is tolerating a little bit of p.o. I discussed with her the possibility for discharge she expressed understanding of the risks and benefits going home and wants to go home. She is planning on having all of her care done at facilities pending insurance approval in August. She did have her gabapentin increased to 600 which we can do on discharge, she is not due for refill yet so she can increase her home dosage pending outpatient follow-up with her PCP. Still unclear as to the source of her intractable nausea and vomiting and her inability to take p.o. intake, unclear if it is a nonorganic cause or not at this point. Recommend close outpatient follow-up with gastroenterology and general surgery. Of note hemoglobin does appear to be at baseline at 9.5. 2. Chronic pain, type 2 diabetes, anxiety, depression, history of PCOS, chronic migraines, factor V Leiden deficiency with a history of DVT and PE are all chronic medical conditions which complicate her care. Her home medications were continued where appropriate Weight / BMI Weight Weight: 188 lb 0.869 oz Body Mass Index (BMI) 35.5 ABG / Lab / Microbiology Data 07/11/25 12:07 07/12/25 05:48 Laboratory: Laboratory Results - last 24 hr 07/12/25 11:42: POC Glucose 69 L 07/12/25 13:07: POC Glucose 124 H 07/12/25 15:20: POC Glucose 73 L 07/12/25 17:41: POC Glucose 59 L 07/12/25 18:56: POC Glucose 135 H 07/12/25 20:05: POC Glucose 107 H 07/12/25 22:33: POC Glucose 88 07/13/25 06:23: POC Glucose 114 H 07/13/25 08:01: POC Glucose 57 L 07/13/25 08:24: POC Glucose 75 Microbiology: Microbiology 07/08/25 14:35 Stool Stool Occult Blood (SANJUANA) - Final Occult Blood Positive D/C Instructions Call your doctor if you observe: Fever of 101 or Higher, Shortness of breath, Dizziness, Fainting spells, Swelling in the ankles, Chest pain and Increased palpitations (irregular heartbeat) DC O2, CPAP, BIPAP Needs Home O2 Discharge instructions: No Meaningful Use Info Meaningful Use Meaningful Use Diagnoses (Choose all that apply): None applicable Discharge Plan Admission Admit Date/Time: 07/08/25 15:00 Primary Reason for Your Visit: INTRACTABLE N/V, GI BLEED, ADULT FTT Attending Provider: Justyn Green Primary Care Provider: Rashawn Yip Consulting Providers: Jude Bryson; Asif Layton; Trice Morales; Soraay Cantu; Barbara Chew; Melissa Howard; Nuno Barreto Discharge Orders/Prescriptions Prescriptions: Continued albuterol sulfate 90 mcg/actuation HFA aerosol inhaler 2 puff inhalation Q6H PRN (Reason: shortness of breath or wheezing) Qty: 8.5 0RF potassium chloride 20 mEq packet 20 meq PO BID Qty: 100 1RF lorazepam [Ativan] 0.5 mg tablet 0.5 mg PO Q12H meclizine 25 mg tablet 25 mg PO BID PRN (Reason: dizziness) indomethacin 50 mg capsule 50 mg PO TID PRN (Reason: pain) Rx Instructions: administer with food or milk tizanidine 4 mg capsule 4 mg PO TID PRN (Reason: muscle spasticity) sumatriptan succinate 6 mg/0.5 mL pen injector 6 mg SUBCUT Q12H PRN (Reason: MIGRAINE) zolpidem [Ambien CR] 12.5 mg tablet,ext release multiphase 12.5 mg PO QHS PRN (Reason: insomnia) Aimovig Autoinjector 70 mg/mL auto-injector 70 mg SUBCUT .month Patient Comments: [NO ORIGINAL SIG] Rx Instructions: pt takes on the 2nd acetaminophen [Children's Acetaminophen] 160 mg/5 mL suspension Patient Comments: [NO ORIGINAL SIG] dicyclomine 20 mg tablet 20 mg PO Q6H PRN (Reason: abdominal pain) docusate sodium 100 mg capsule 100 mg PO DAILY lamotrigine 200 mg tablet 200 mg PO BID epinephrine [EpiPen 2-Scout] 0.3 mg/0.3 mL auto-injector 0.3 mg IM Q5-15M PRN (Reason: anaphylaxis) Qty: 2 1RF Rx Instructions: do not exceed 3 doses per episode Linzess 290 mcg capsule 290 mcg PO QDAY Qty: 90 0RF Patient Comments: ran out, was to be delivered today pantoprazole 40 mg tablet,delayed release (DR/EC) 40 mg PO DAILY Qty: 90 1RF (DME) Dexcom G7 Sensor Device See Rx Instructions .Route Qty: 1 5RF Rx Instructions: As directed (DME) Dexcom G7 Computer Terminal Operator Misc See Rx Instructions .Route Qty: 1 5RF Rx Instructions: As directed (DME) lancets [OneTouch UltraSoft 2 Lancet] 30 gauge misc See Rx Instructions .Route Qty: 200 0RF Rx Instructions: Use once daily to check blood glucose level (DME) OneTouch Verio test strips Strip See Rx Instructions .Route Qty: 100 0RF Rx Instructions: Use one strip once per day to check blood glucose level ergocalciferol (vitamin D2) [Vitamin D2] 1,250 mcg (50,000 unit) capsule 1,250 mcg PO QWEEK Qty: 1 0RF spironolactone 50 mg tablet 50 mg PO BID Qty: 60 0RF magnesium oxide 400 mg magnesium tablet 400 mg PO BID Qty: 60 0RF torsemide 20 mg tablet 20 mg PO QDAY Qty: 30 0RF folic acid 1 mg tablet 1 mg PO QDAY Qty: 30 0RF sumatriptan succinate 100 mg tablet See Rx Instructions PO .COMPLEX Qty: 12 0RF Rx Instructions: take 1 tab at onset of headache; if no relief, may repeat 1 tab after at least 2 hrs; max = 2 tabs/24 hrs PO bisacodyl [Dulcolax (bisacodyl)] 5 mg tablet,delayed release (DR/EC) 20 mg PO ONCE Qty: 4 0RF Rx Instructions: Colonoscopy prep polyethylene glycol 3350 17 gram/dose powder See Rx Instructions .ROUTE .COMPLEX Qty: 238 0RF Rx Instructions: Mix entire bottle into 64oz clear liquid for colonoscopy prep; promethazine 25 mg suppository 25 mg WA Q6H PRN (Reason: nausea and vomiting) Qty: 12 1RF famotidine 20 mg tablet 20 mg PO DAILY Qty: 30 0RF Changed gabapentin 400 mg capsule 600 mg PO TID Qty: 270 0RF Referrals / Follow Up: Asif Layton DO [Med Staff - Active Staff, Gastroenterology] - 11/30/25 8:00 am Artur Shafer MD [Med Staff - Active Staff, General Surgery] - 07/21/25 8:40 am Rashawn Yip PA [Primary Care Provider, Internal Medicine] - 07/23/25 8:00 am Disposition Disposition (needs filled in before D/C Order can be placed): Home, Self Care Charges/Coding Visit Charges Inpatient E&M: 99337 Disch Hosp >30min
== END 2025-07-13 09:39 | disposition home or self-care (01) ==
LOC: ED 12:27 → MS3 16:19
PROVIDERS: Internal Medicine Gastroenterology; Student in an Organized Health Care Education/Training Program; Admitting Provider Family Medicine; Emergency Provider Student in an Organized Health Care Education/Training Program; PCP Physician Assistant
PROC: 0DJD8ZZ Inspection of Lower Intestinal Tract, Via Natural or Artificial Opening Endoscopic (ICD-10-PCS; CPT 45378; principal; 2025-07-12 15:55)
DX: R11.2 Nausea with vomiting, unspecified (principal); D68.2 Hereditary deficiency of other clotting factors; F31.9 Bipolar disorder, unspecified; E11.65 Type 2 diabetes mellitus with hyperglycemia; E11.40 Type 2 diabetes mellitus with diabetic neuropathy, unspecified; R53.1 Weakness; G43.709 Chronic migraine without aura, not intractable, without status migrainosus; R60.1 Generalized edema; Z68.35 Body mass index [BMI] 35.0-35.9, adult; K92.2 Gastrointestinal hemorrhage, unspecified; K21.9 Gastro-esophageal reflux disease without esophagitis; M79.604 Pain in right leg; R53.81 Other malaise; E66.812 Obesity, class 2; Z86.711 Personal history of pulmonary embolism; Z86.718 Personal history of other venous thrombosis and embolism; G89.29 Other chronic pain; Z79.899 Other long term (current) drug therapy; D50.9 Iron deficiency anemia, unspecified; M79.605 Pain in left leg; E88.09 Other disorders of plasma-protein metabolism, not elsewhere classified; R29.6 Repeated falls; F41.9 Anxiety disorder, unspecified; E43 Unspecified severe protein-calorie malnutrition
CPT/HCPCS: 45378; 36415; 36430; 36591; 80048; 80053; 80307; 81001; 81025; 82274; 82962; 83036; 83690; 83735; 84100; 85014; 85018; 85025; 86850; 86900; 86901; 93005; 96361; 96365; 96366; 96372; 96375; 96376; 97162; 97166; 97802; 99221; 99285; P9016; A4216; G0378; J2405; J3030